=== PATIENT | female | born 1955 | race African-American/Black ===

== ENCOUNTER 2017-07-11 18:33 | Inpatient (IN) | payer MEDICARE ==
[2017-07-11] MEDS ORDERED: ASPIRIN 81 MG TABLET, CHEWABLE PO ONE (20:28)
--- NOTE | 2017-07-11 20:32 | ER Document Report ---
ED Medical Screen (RME) - General Chief Complaint: Arm Pain Stated Complaint: SHOULDER PAIN, NECK PAIN,NOT URINATING Time Seen by Provider: 07/11/17 20:28 Mode of Arrival: Wheelchair Information source: Patient Notes: 61-year-old female presents to ED for complaint of pain in left shoulder neck and down left arm with numbness to the left arm. She states she has been cramping all over. States she is feeling cold and also states she has not urinated since yesterday. States today she started with a sore throat. She has a past medical history of OR 3 with she states 7 stents, high blood pressure, diabetes, and she has an ileostomy. She states the ileostomy is because her colon ruptured but she does not know why her colon ruptured. I have greeted and performed a rapid initial assessment of this patient. A comprehensive ED assessment and evaluation of the patient, analysis of test results and completion of medical decision making process will be conducted by an additional ED providers. TRAVEL OUTSIDE OF THE [place] IN LAST 30 DAYS: No - Related Data Allergies/Adverse Reactions: ciprofloxacin [From Cipro] Allergy (Severe, Verified 07/11/17 18:47) Hallucinations morphine [Morphine] Allergy (Unknown, Verified 07/11/17 18:47) Past Medical History - Past Medical History Cardiac Medical History: Reports: Hx Atrial Fibrillation, Hx Coronary Artery Disease, Hx DVT, Hx Heart Attack - 2002, Hx Hypercholesterolemia, Hx Hypertension Pulmonary Medical History: Reports: Hx Pneumonia - 2006 Endocrine Medical History: Reports: Hx Diabetes Mellitus Type 2 Renal/ Medical History: Reports: Hx Ovarian Cysts. Denies: Hx Peritoneal Dialysis Malignancy Medical History: Reports: Hx Renal (Kidney) Cancer GI Medical History: Reports: Hx Gastroesophageal Reflux Disease, Hx Hiatal Hernia, Hx Irritable Bowel, Hx Ulcer Musculoskeltal Medical History: Reports Hx Arthritis - Back, Knees Psychiatric Medical History: Denies: Hx Depression Traumatic Medical History: Reports: Hx Fractures Past Surgical History: Reports: Hx Abdominal Surgery - COLOSTOMY. INTESTINAL RUPTURE, Hx Bowel Surgery - COLECTOMY, Hx Cardiac Catheterization - stents, Hx Cardiac Surgery - STENTS, Hx Colostomy, Hx Coronary Stent, Hx Hysterectomy, Hx Orthopedic Surgery - L knee replacement, right ankle pin - Immunizations Immunizations up to date: Yes Hx Diphtheria, Pertussis, Tetanus Vaccination: No Physical Exam - Vital signs Vitals: Temp Pulse Resp BP Pulse Ox 97.9 F 113 H 28 H 145/93 H 95 07/11/17 18:46 07/11/17 18:46 07/11/17 18:46 07/11/17 18:46 07/11/17 18:46 Course - Vital Signs Vital signs: Temp Pulse Resp BP Pulse Ox 97.9 F 113 H 28 H 145/93 H 95 07/11/17 18:46 07/11/17 18:46 07/11/17 18:46 07/11/17 18:46 07/11/17 18:46
--- NOTE | 2017-07-11 21:11 | RADIOLOGY REPORT (SQ) ---
EXAM DESCRIPTION: CHEST PA/LAT COMPLETED DATE/TIME: 07/11/2017 9:02 pm REASON FOR STUDY: left shoulder, neck and arm pain COMPARISON: CT angio chest 12/18/2014 Two-view chest 04/21/2015 EXAM PARAMETERS: NUMBER OF VIEWS: two views TECHNIQUE: Digital Frontal and Lateral radiographic views of the chest acquired. RADIATION DOSE: NA LIMITATIONS: none FINDINGS: LUNGS AND PLEURA: Minimal lingular atelectasis. Lungs are otherwise well inflated and clear. No pleural effusions. No pneumothorax. MEDIASTINUM AND HILAR STRUCTURES: No masses or contour abnormalities. HEART AND VASCULAR STRUCTURES: Heart normal size. No evidence for failure. BONES: Diffuse thoracic spondylotic change HARDWARE: None in the chest. OTHER: No other significant finding. IMPRESSION: Minimal lingular atelectasis TECHNICAL DOCUMENTATION: JOB ID: [id number] [employer]- All Rights Reserved
[2017-07-11] MEDS ORDERED: NORMAL SALINE 1000 ML 1,000 ML IV ONE (22:58)
--- NOTE | 2017-07-11 23:02 | ER Document Report ---
ED General <SELMA AGUIRREN - Last Filed: 07/12/17 07:11> - General Mode of Arrival: Wheelchair TRAVEL OUTSIDE OF THE [place] IN LAST 30 DAYS: No <RENA WEINER - Last Filed: 07/12/17 07:31> - General Chief Complaint: Arm Pain Stated Complaint: SHOULDER PAIN, NECK PAIN,NOT URINATING Time Seen by Provider: 07/11/17 20:28 Notes: Patient is a 61-year-old female presents with complaint that she feels very dehydrated. She said she had a cold over last week. Because that she has not been drinking as much as usual. She has not been urinating. She does have history of kidney failure in the past. She says she had dialysis once in the past. She does have history of NM. She denies any chest pain. She had a lot of cramping throughout her muscles. She says mostly cramping is been in her shoulders and neck area. She denies headache. She denies abdominal pain. She does have a ileostomy in place. She says ileostomy was placed several years ago. She says that her bowel ruptured but she does not know why ruptured. She says output from ileostomy has been normal. She has no other complaints at this time. Primary care doctor is Dr. Barakat. (RENA WEINER) - Related Data Allergies/Adverse Reactions: ciprofloxacin [From Cipro] Allergy (Severe, Verified 07/11/17 18:47) Hallucinations morphine [Morphine] Allergy (Unknown, Verified 07/11/17 18:47) Past Medical History - General Information source: Patient - Social History Smoking Status: Never Smoker Frequency of alcohol use: None Drug Abuse: None Family History: Hypertension Patient has suicidal ideation: No Patient has homicidal ideation: No - Past Medical History Cardiac Medical History: Reports: Hx Atrial Fibrillation, Hx Coronary Artery Disease, Hx DVT, Hx Heart Attack - 2002, Hx Hypercholesterolemia, Hx Hypertension Pulmonary Medical History: Reports: Hx Pneumonia - 2006 Endocrine Medical History: Reports: Hx Diabetes Mellitus Type 2 Renal/ Medical History: Reports: Hx Ovarian Cysts. Denies: Hx Peritoneal Dialysis Malignancy Medical History: Reports: Hx Renal (Kidney) Cancer GI Medical History: Reports: Hx Gastroesophageal Reflux Disease, Hx Hiatal Hernia, Hx Irritable Bowel, Hx Ulcer Musculoskeltal Medical History: Reports Hx Arthritis - Back, Knees Psychiatric Medical History: Denies: Hx Depression Traumatic Medical History: Reports: Hx Fractures Past Surgical History: Reports: Hx Abdominal Surgery - COLOSTOMY. INTESTINAL RUPTURE, Hx Bowel Surgery - COLECTOMY, Hx Cardiac Catheterization - stents, Hx Cardiac Surgery - STENTS, Hx Colostomy, Hx Coronary Stent, Hx Hysterectomy, Hx Orthopedic Surgery - L knee replacement, right ankle pin - Immunizations Immunizations up to date: Yes Hx Diphtheria, Pertussis, Tetanus Vaccination: No Hx Pneumococcal Vaccination: 09/19/13 <RENA WEINER - Last Filed: 07/12/17 07:31> Review of Systems <HENRY AGUIRRE - Last Filed: 07/12/17 07:11> <RENA WEINER - Last Filed: 07/12/17 07:31> - Review of Systems Notes: My Normal Review Basic REVIEW OF SYSTEMS: CONSTITUTIONAL : Denies fever, chills, or sweats. Denies recent illness. EENT: Denies eye, ear, throat, or mouth pain or symptoms. Denies nasal or sinus congestion. CARDIOVASCULAR: Denies chest pain. RESPIRATORY: Denies cough, cold, or chest congestion. Denies shortness of breath, difficulty breathing, or wheezing. GASTROINTESTINAL: Denies abdominal pain. Denies nausea, vomiting, or diarrhea. D GENITOURINARY: Denies difficulty urinating, painful urination, burning, frequency, or blood in urine. MUSCULOSKELETAL: muscle cramps. SKIN: Denies rash or skin lesions. NEUROLOGICAL: Denies altered mental status or loss of consciousness. Denies headache. Denies weakness or paralysis or loss of use of either side. Denies problems with gait or speech. Denies sensory or motor loss.. ALL OTHER SYSTEMS REVIEWED AND NEGATIVE. (RENA WEINER) Physical Exam <HENRY AGUIRRE - Last Filed: 07/12/17 07:11> <RENA WEINER - Last Filed: 07/12/17 07:31> - Vital signs Vitals: Temp Pulse Resp BP Pulse Ox 97.9 F 113 H 28 H 145/93 H 95 07/11/17 18:46 07/11/17 18:46 07/11/17 18:46 07/11/17 18:46 07/11/17 18:46 - Notes Notes: General Appearance: Well nourished, alert, cooperative, no acute distress, no obvious discomfort. Vitals: reviewed, See vital signs table. Head: no swelling or tenderness to the head Eyes: PERRL, EOMI, Conjuctiva clear Mouth: Dry mucous membranes. Throat: No tonsillar inflammation, No airway obstruction, No lymphadenopathy Neck: Supple, no neck tenderness, No thyromegaly Lungs: No wheezing, No rales, No rhonci, No accessory muscle use, good air exchange bilaterally. Heart: Tachycardic rate, Regular rythm, No murmur, no rub Abdomen: Normal BS, soft, No rigidity, No abdominal tenderness, No guarding, no rebound, ileostomy bag over anterior abdomen. Small amount of output in ileostomy bag. No blood seen in ileostomy bag. Extremities: strength 5/5 in all extremities, good pulses in all extremities, no swelling or tenderness in the extremities, no edema. Skin: warm, dry, appropriate color, no rash Neuro: speech clear, oriented x 3, normal affect, responds appropriately to questions. (RENA WEINER) Course - Laboratory Result Diagrams: 07/11/17 23:10 07/12/17 03:20 <HENRY AGUIRRE - Last Filed: 07/12/17 07:11> - Laboratory Result Diagrams: 07/11/17 23:10 07/12/17 03:20 <RENA WEINER - Last Filed: 07/12/17 07:31> - Re-evaluation Re-evalutation: 07/12/17 07:09 dr saleem paged 07/12/17 07:11 He will admit the patient to the ICU, patient is otherwise stable on dopamine at this time (HENRY AGUIRRE) 07/12/17 01:37 Patient's creatinine came back 11. Potassium 6.5. Patient's blood pressure started to go down some. I have ordered more IV fluids. I will start her on a bicarb drip. I will place a Walters catheter so we can measure strict output. I did do a bedside ultrasound to see if there is any evidence of bladder distention. Patient has just a small amount of urine in her bladder. I did review her previous records were she has had renal failure in the past. One time she did have some obstructive uropathy that was resolved with a Walters catheter. It does not appear that that is the case at this time. In the past I also suspect that she has had renal failure due to her high output ileostomy causing dehydration. I suspect that is likely culprit to why she has renal failure this time as well. I will continue to give her IV fluids. I will treat her with repeat her chemistry panel to make sure we are going in the right direction. Currently we do not have nephrology coverage until 7 AM. If her renal function is improving almost like call Dr. Barakat and see if he is agreeable to keeping her here with nephrology consult in the morning. I have ordered a repeat EKG. 07/12/17 07:29 Patient has acute renal failure with hyperkalemia and hypomagnesmia. repeat BMP shows some improvement with renal failure and hypokalemia. Patient to be admitted to ICU. 07/12/17 07:30 (RENA WEINER) - Vital Signs Vital signs: Temp Pulse Resp BP Pulse Ox 97.9 F 113 H 16 91/39 L 94 07/11/17 18:46 07/11/17 18:46 07/12/17 07:25 07/12/17 07:25 07/12/17 07:25 - Laboratory Laboratory results interpreted by me: 07/11/17 07/11/17 07/11/17 23:10 23:10 23:10 WBC 14.2 H Hgb 11.7 L Hct 35.3 L RDW 18.0 H Seg Neutrophils % 85.2 H Lymphocytes % 9.0 L Absolute Neutrophils 12.1 H Sodium 126.9 L Potassium 6.5 H* Chloride 91 L Carbon Dioxide 11 L Anion Gap 25 H BUN 120 H Creatinine 11.40 H Est GFR ( Amer) 4 L Est GFR (Non-Af Amer) 3 L Glucose 157 H Calcium Magnesium 1.4 L Direct Bilirubin 0.7 H AST 128 H ALT 78 H Creatine Kinase 5897 H CK-MB (CK-2) 43.20 H Urine Blood Ur Leukocyte Esterase 07/12/17 07/12/17 02:30 03:20 WBC Hgb Hct RDW Seg Neutrophils % Lymphocytes % Absolute Neutrophils Sodium 126.0 L Potassium Chloride 94 L Carbon Dioxide 15 L Anion Gap BUN 115 H Creatinine 9.92 H Est GFR ( Amer) 5 L Est GFR (Non-Af Amer) 4 L Glucose 169 H Calcium 7.3 L Magnesium Direct Bilirubin AST ALT Creatine Kinase CK-MB (CK-2) Urine Blood MODERATE H Ur Leukocyte Esterase MODERATE H - EKG Interpretation by Me Additional EKG results interpreted by me: 07/11/17 23:59 EKG is reviewed and interpreted by me. EKG shows sinus tachycardia with a rate of [address] segment elevation or depression. No ischemic T-wave inversions. IA interval slightly prolonged. QRS duration QTc intervals are within normal range. Old EKG for comparison is from April 21, 2015. 07/12/17 03:07 KG #2 is reviewed and interpreted by me. EKG shows sinus tachycardia. No ST segment elevation or depression. IA interval, QRS duration, QTc intervals are within normal range. No peaked T waves. (RENA WEINER) Procedures <HENRY AGUIRRE - Last Filed: 07/12/17 07:11> - Central Line Right Femoral Consent obtained: Yes Central line pre-insertion: Sterile PPE donned, Chloraprep applied, Sterile drapes applied Central line lumen type: Triple Anesthetic type: 1% Lidocaine mL's of anesthesia: 4 Ultrasound guided: Yes Line secured with sutures: Yes Central line post-insertion: Blood return from lumens, Biopatch applied, Sutured , Sterile dressing applied Number of attempts: 2 Complications: No <RENA WEINER - Last Filed: 07/12/17 07:31> - Central Line Right Femoral Notes: 07/12/17 05:47 First attempted line placement and right internal jugular. I was able to obtain a flash but the wire would not thread. I then aborted. Patient had no active bleeding or swelling to the neck. Second attempt was in the right femoral vein which was successful. (RENA WEINER) Critical Care Note <HENRY AGUIRRE - Last Filed: 07/12/17 07:11> - Critical Care Note Total time excluding time spent on procedures (mins): 115 <RENA WEINER - Last Filed: 07/12/17 07:31> - Critical Care Note Comments: Critical care time for this patient not including time spent on procedures approximately 115 minutes due to frequent re-evaluations, management of acute renal failure, monitoring of hypotension, management of pressor therapy. ( RENA WEINER) Discharge - Discharge Admitting Provider: [facility] Unit Admitted: ICU <HENRY AGUIRRE - Last Filed: 07/12/17 07:11> - Discharge Admitting Provider: Yu[facility] Unit Admitted: ICU <RENA WEINER - Last Filed: 07/12/17 07:31> - Discharge Clinical Impression: Dehydration, Hyperkalemia, Hypomagnesemia Acute renal failure Qualifiers: Acute renal failure type: unspecified Qualified Code(s): N17.9 - Acute kidney failure, unspecified Hypotension Qualifiers: Hypotension type: unspecified hypotension type Qualified Code(s): I95.9 - Hypotension, unspecified Condition: Critical Disposition: ADMITTED INPATIENT
[2017-07-11 23:37] LABS: ABSOLUTE EOSINOPHILS # (AUTO) 0.1 10^3/uL (0.0-0.6); ABSOLUTE LYMPHOCYTES (AUTO) 1.3 10^3/uL (0.5-4.7); ABSOLUTE MONOCYTES (AUTO) 0.7 10^3/uL (0.1-1.4); ABSOLUTE NEUT (AUTO) 12.1 10^3/uL (1.7-8.2); BASOPHILS % (AUTO) 0.3 % (0-2); EOSINOPHILS % (AUTO) 0.6 % (0-6); HEMATOCRIT 35.3 % (36.0-47.0); HEMOGLOBIN 11.7 g/dL (12.0-15.5); HGB HCT DIFFERENCE -0.2; MEAN CORPUSCULAR HEMOGLOBIN 29.1 pg (27.0-33.4); MEAN CORPUSCULAR VOLUME 88 fl (80-97); MONOCYTES % (AUTO) 4.9 % (3-13); RED BLOOD COUNT 4.01 10^6/uL (3.72-5.28); SEGMENTED NEUTROPHILS % (AUTO) 85.2 % (42-78); WHITE BLOOD COUNT 14.2 10^3/uL (4.0-10.5)
[2017-07-11 23:44] LABS: ALANINE AMINOTRANSFERASE 78 U/L (9-52); ALBUMIN 4.4 g/dL (3.5-5.0); ALKALINE PHOSPHATASE 89 U/L (38-126); ASPARTATE AMINO TRANSFERASE 128 U/L (14-36); BILIRUBIN,DIRECT 0.7 mg/dL (0.0-0.4); BILIRUBIN,TOTAL 0.7 mg/dL (0.2-1.3); CALCIUM 8.8 mg/dL (8.4-10.2); GLUCOSE 157 mg/dL (75-110); MAGNESIUM 1.4 mg/dL (1.6-2.3); TOTAL PROTEIN 8.1 g/dL (6.3-8.2)
[2017-07-11 23:50] LABS: BLOOD UREA NITROGEN 120 mg/dL (7-20)
[2017-07-11 23:56] LABS: CREATINE KINASE MB 43.2 ng/mL (<4.55)
--- NOTE | 2017-07-11 23:58 | EKG REPORT ---
SEVERITY:- ABNORMAL ECG - SINUS TACHYCARDIA INFERIOR INFARCT, AGE INDETERMINATE CONSIDER ANTERIOR INFARCT AGE INDETERMINATE : Confirmed by: Jaqui Marquis 11-Jul-2017 23:58:19
[2017-07-12 00:03] LABS: TROPONIN I 0.055 ng/mL
[2017-07-12] MEDS ORDERED: FENTANYL CITRATE INJ/PF 100 MCG/2 ML AMPUL IV ONE ×2 (00:32→05:14)
[2017-07-12 00:33] LABS: CREATINE KINASE 5897 U/L (30-135)
[2017-07-12 00:46] LABS: CARBON DIOXIDE 11 mmol/L (22-30); CHLORIDE 91 mmol/L (98-107); SODIUM 126.9 mmol/L (137-145)
[2017-07-12 00:47] LABS: ANION GAP 25 (5-19)
[2017-07-12 00:50] LABS: POTASSIUM 6.5 mmol/L (3.6-5.0)
[2017-07-12] MEDS ORDERED: NORMAL SALINE 1000 ML 1,000 ML IV ONE ×3 (01:18→05:32)
[2017-07-12] MEDS ORDERED: SODIUM BICARBONATE 8.4% INJ 50 MEQ/50 ML DISP.SYRIN IV ONE (01:33)
[2017-07-12] MEDS ORDERED: INSULIN REG, HUMAN 100 UNIT/ML 3 ML VIAL (PYX) IV ONE (01:35)
[2017-07-12] MEDS ORDERED: DEXTROSE 50%-WATER 25 GM/50 ML DISP.SYRIN IV ONE (01:35)
[2017-07-12] MEDS: DEXTROSE 5%-WATER 1000 ML 1,000 ML with SODIUM BICARBONATE 150 MEQ IV PRN ×6 (02:06→11:20)
[2017-07-12 02:52] LABS: AMORPHOUS SEDIMENT,URINE TRACE /HPF; APPEARANCE,URINE CLOUDY; BILIRUBIN,URINE NEGATIVE (NEGATIVE); GLUCOSE, URINE NEGATIVE (NEGATIVE); KETONES,URINE NEGATIVE (NEGATIVE); LEUKOCYTE ESTERASE,URINE MODERATE (NEGATIVE); NITRITE,URINE NEGATIVE (NEGATIVE); PROTEIN,URINE NEGATIVE (NEGATIVE); URINE SPECIFIC GRAVITY 1.013; UROBILINOGEN,URINE NEGATIVE mg/dL (<2.0)
[2017-07-12] MEDS: MAGNESIUM SULFATE/D5W 1 GM/100 ML RTUPB IV SCH ×2 (04:00→04:24)
[2017-07-12 04:01] LABS: ANION GAP 17 (5-19); BLOOD UREA NITROGEN 115 mg/dL (7-20); CALCIUM 7.3 mg/dL (8.4-10.2); CARBON DIOXIDE 15 mmol/L (22-30); CHLORIDE 94 mmol/L (98-107); CREATININE RESULT 9.92 mg/dL (0.52-1.25); GLUCOSE 169 mg/dL (75-110)
[2017-07-12 04:14] LABS: POTASSIUM 4.8 mmol/L (3.6-5.0)
[2017-07-12] MEDS ORDERED: DOPAMINE HCL/DEXTROSE 5%-WATER 800 MG/250 ML RTUINJ IV PRN (04:21)
--- NOTE | 2017-07-12 07:26 | EKG REPORT ---
SEVERITY:- ABNORMAL ECG - SINUS TACHYCARDIA INFERIOR INFARCT, AGE INDETERMINATE : Confirmed by: Brody Guajardo MD 12-Jul-2017 07:25:21
[2017-07-12] MEDS ORDERED: GLUCAGON,HUMAN RECOMB 1 MG INJ IM PRN ×2 (07:32→07:33)
[2017-07-12] MEDS ORDERED: DEXTROSE 50%-WATER 25 GM/50 ML DISP.SYRIN IV PRN ×4 (07:32→07:33)
[2017-07-12] MEDS ORDERED: DEXTROSE 40% GEL 15 GM TUBE PO PRN ×4 (07:32→07:33)
[2017-07-12] MEDS ORDERED: PIPERACILLIN SODIUM/TAZOBACTAM 3.375 GM in NORMAL SALINE 100 ML IV SCH (09:00)
[2017-07-12] MEDS ORDERED: NOREPINEPHRINE BITARTRATE INJ/PF 4 MG/4 ML SDV IV ONE (09:10)
[2017-07-12] MEDS: DEXTROSE 5%-WATER 250 ML with NOREPINEPHRINE BITARTRATE 4 MG IV PRN ×4 (09:43→17:47)
[2017-07-12] MEDS: PIPERACILLIN SODIUM/TAZOBACTAM 2.25 GM in NORMAL SALINE 50 ML IV SCH ×2 (09:51→17:14)
[2017-07-12 09:52] LABS: PROTHROMBIN TIME 16.1 SEC (11.4-15.4)
[2017-07-12 09:59] LABS: LIPASE 481.2 U/L (23-300); MAGNESIUM 1.7 mg/dL (1.6-2.3); PHOSPHORUS 6.5 mg/dL (2.5-4.5)
[2017-07-12 10:02] LABS: ANION GAP 18 (5-19); BLOOD UREA NITROGEN 101 mg/dL (7-20); CALCIUM 7.3 mg/dL (8.4-10.2); CARBON DIOXIDE 14 mmol/L (22-30); CHLORIDE 96 mmol/L (98-107); GLUCOSE 248 mg/dL (75-110); POTASSIUM 4.3 mmol/L (3.6-5.0); SODIUM 127.9 mmol/L (137-145)
[2017-07-12 10:18] LABS: CREATINE KINASE MB 26.9 ng/mL (<4.55); TROPONIN I 0.09 ng/mL
[2017-07-12] MEDS ORDERED: INFLUENZA ADLT QUAD (36MOS+) 2017-18 VAC 0.5 ML SYR IM PRN ×2 (10:20→13:30)
[2017-07-12 10:31] LABS: CREATINE KINASE 4180 U/L (30-135)
[2017-07-12 10:34] LABS: THYROID STIMULATING HORMONE 0.28 uIU/mL (0.47-4.68)
[2017-07-12 11:36] LABS: ARTERIAL BLOOD BASE EXCESS -9.3 mmol/L; ARTERIAL BLOOD O2 SATURATION 90.3 % (94-98)
[2017-07-12] MEDS: INSULIN REG, HUMAN 100 UNIT/ML 3 ML VIAL (PYX) SUBCUT PRN ×3 (11:36→21:30)
[2017-07-12 11:38] LABS: APPEARANCE,URINE SLIGHTLY-CLOUDY; BILIRUBIN,URINE NEGATIVE (NEGATIVE); GLUCOSE, URINE 50 mg/dL (NEGATIVE); KETONES,URINE NEGATIVE (NEGATIVE); LEUKOCYTE ESTERASE,URINE NEGATIVE (NEGATIVE); NITRITE,URINE NEGATIVE (NEGATIVE); PROTEIN,URINE NEGATIVE (NEGATIVE); URINE SPECIFIC GRAVITY 1.005; UROBILINOGEN,URINE NEGATIVE mg/dL (<2.0)
[2017-07-12] MEDS ORDERED: HYDROMORPHONE HCL INJ/PF 2 MG/ML AMPULE IV PRN (12:38)
--- NOTE | 2017-07-12 13:51 | RADIOLOGY REPORT (SQ) ---
EXAM DESCRIPTION: VENOUS UNILATERAL LOWER COMPLETED DATE/TIME: 07/12/2017 1:42 pm REASON FOR STUDY: Right lower extremety edema and pain COMPARISON: None. TECHNIQUE: Dynamic and static correia scale and color images acquired of the right leg venous system. S elected spectral images acquired with additional compression and augmentation maneuvers. The contrala teral common femoral vein and saphenofemoral junction were also imaged. Images stored on PACS. LIMITATIONS: None. FINDINGS: RIGHT COMMON FEMORAL: Normal phasicity, compression and augmentation. No visualized echogenic material on g ray scale. No defects on color images. FEMORAL: Normal compression and augmentation. No visualized echogenic material on correia scale. No defe cts on color images. POPLITEAL: Normal compression, augmentation. No visualized echogenic material on correia scale. No defec ts on color images. CALF VESSELS: Normal compression, augmentation. No visualized echogenic material on correia scale. No de fects on color images. GSV and SSV: Normal compression, augmentation. No visualized echogenic material on correia scale. No def ects on color images. ANY DEEP VENOUS INSUFFICIENCY: Not evaluated. ANY EVIDENCE OF POPLITEAL CYST: No. OTHER: No other significant finding. LEFT COMMON FEMORAL VEIN AND SAPHENOFEMORAL JUNCTION: Normal phasicity, compression and augmentation. No visualized echogenic material on correia scale. No de fects on color images. IMPRESSION: NO EVIDENCE OF DVT OR SVT IN THE RIGHT LEG. TECHNICAL DOCUMENTATION: JOB ID: [id number] [employer]- All Rights Reserved
[2017-07-12] MEDS: NORMAL SALINE 1000 ML 1,000 ML IV PRN ×2 (13:53→18:37)
[2017-07-12] MEDS: HYDROMORPHONE HCL INJ/PF 2 MG/ML AMPULE IV PRN ×2 (13:59→20:01)
[2017-07-12] MEDS: HEPARIN SOD (PORCINE) 5,000 UNIT/ML 1 ML SYRINGE SUBCUT SCH ×2 (14:00→21:30)
--- NOTE | 2017-07-12 14:11 | EKG REPORT ---
SEVERITY:- ABNORMAL ECG - SINUS TACHYCARDIA INFERIOR INFARCT, OLD : Confirmed by: Brody Guajardo MD 12-Jul-2017 14:10:51
[2017-07-12 15:36] LABS: ANION GAP 16 (5-19); BLOOD UREA NITROGEN 99 mg/dL (7-20); CALCIUM 7.5 mg/dL (8.4-10.2); CARBON DIOXIDE 17 mmol/L (22-30); CHLORIDE 97 mmol/L (98-107); CREATININE RESULT 7.43 mg/dL (0.52-1.25); GLUCOSE 223 mg/dL (75-110); POTASSIUM 4.6 mmol/L (3.6-5.0); SODIUM 130.2 mmol/L (137-145)
[2017-07-12 15:43] LABS: CREATINE KINASE 2821 U/L (30-135)
--- NOTE | 2017-07-12 18:14 | PDOC H&P ---
History of Present Illness Admission Date/PCP: 07/12/17 07:25 LISA MATA MD History of Present Illness: RANDEE VELÁSQUEZ is a 61 year old female she is well-known to me she has a history of high output ileostomy bag, she came to the emergency room for evaluation of malaise, anorexia, decreased urinary output. She said she has not been feeling well in the last week, she had a cord showed been drinking as much as well, she complained of leg cramps, shoulder cramps in the emergency room she was evaluated the initial blood work that was done showed sodium 126, BUN 115, creatinine 9.92. Arterial blood gas, FiO2 2 L pH 7.2, PO2 53.8 bicarbonate 16.3 CO2 34, this is consistent with increased anion gap metabolic acidosis with well compensated respiratory. Blood pressure recorded was also low. Patient has had this problems before. The urinalysis was grossly abnormal suggesting UTI. Past Medical History Cardiac Medical History: Reports: Atrial Fibrillation, Coronary Artery Disease, DVT, Myocardial Infarction - 2002, Hyperlipidema, Hypertension Pulmonary Medical History: Reports: Pneumonia - 2006 Endocrine Medical History: Reports: Diabetes Mellitus Type 2 Malignancy Medical History: Reports: Renal (Kidney) Cancer GI Medical History: Reports: Gastroesophageal Reflux Disease, Hiatal Hernia Musculoskeltal Medical History: Reports: Arthritis - Back, Knees Hematology: Reports: Anemia Past Surgical History Past Surgical History: Reports: Cardiac Catheterization - stents, Colostomy, Coronary Stent, Hysterectomy, Orthopedic Surgery - L knee replacement, right ankle pin Social History Smoking Status: Never Smoker Frequency of Alcohol Use: Social Hx Recreational Drug Use: No Drugs: None Hx Prescription Drug Abuse: No - Advance Directive Resuscitation Status: Full Code Family History Family History: Hypertension Parental Family History Reviewed: Yes Children Family History Reviewed: Yes Sibling(s) Family History Reviewed.: Yes Medication/Allergy Home Medications: Albuterol Sulfate [Proair HFA] 2 puff IH Q4HP PRN 07/12/17 Betamet Diprop/Prop Gly [Betamethasone Dp Aug 0.05% Cream] 1 applic TOP BID 02/20 Clotrimazole [Athlete's Foot] 1 applic TOP BID 07/12/17 Cyclobenzaprine HCl [Flexeril 10 mg Tablet] 10 mg PO TIDP PRN 07/12/17 Exenatide Microspheres [Bydureon Pen] 2 mg SUBCUT KYLE@1000 07/12/17 Gabapentin [Neurontin] 600 mg PO Q6 07/12/17 Glipizide [Glipizide Xl] 5 mg PO DAILY 07/12/17 Insulin Aspart [Novolog Flexpen] 12 unit SUBCUT TID 07/12/17 Insulin Glargine,Hum.rec.anlog [Lantus Solostar] 60 units SUBCUT BID 07/12/17 Linagliptin [Tradjenta] 5 mg PO DAILY 07/12/17 Metoprolol Succinate [Toprol Xl 50 mg Tab.sr] 50 mg PO DAILY 07/12/17 Nystatin 1 applic TOP BID 07/12/17 Oxycodone HCl [Oxycodone HCl 10 MG Tablet] 10 mg PO BIDP PRN 07/12/17 Oxymorphone HCl [Opana ER] 10 mg PO Q8 07/12/17 Pioglitazone HCl [Actos] 30 mg PO DAILY 07/12/17 Ramipril [Altace 10 mg Capsule] 10 mg PO DAILY 07/12/17 Sodium Bicarbonate [Sodium Bicarbonate 650 mg Tablet] 1,300 mg PO TID 07/12/17 Allergies/Adverse Reactions: ciprofloxacin [From Cipro] Allergy (Severe, Verified 07/11/17 18:47) Hallucinations morphine [Morphine] Allergy (Unknown, Verified 07/11/17 18:47) Review of Systems Constitutional: PRESENT: anorexia, chills, fatigue Eyes: ABSENT: visual disturbances Ears: ABSENT: hearing changes Cardiovascular: PRESENT: chest pain Respiratory: PRESENT: cough Gastrointestinal: PRESENT: abdominal pain, bloating, nausea Genitourinary: ABSENT: dysuria, hematuria Musculoskeletal: ABSENT: joint swelling Integumentary: ABSENT: rash, wounds Neurological: ABSENT: abnormal gait, abnormal speech, confusion, dizziness, focal weakness, syncope Psychiatric: ABSENT: anxiety, depression, homidical ideation, suicidal ideation Endocrine: ABSENT: cold intolerance, heat intolerance, menstrual abnormalities, polydipsia, polyuria Hematologic/Lymphatic: ABSENT: easy bleeding, easy bruising, lymphadenopathy Physical Exam Vital Signs: Temp Pulse Resp BP Pulse Ox 98.1 F 116 H 17 99/37 L 100 07/12/17 12:01 07/12/17 16:00 07/12/17 16:00 07/12/17 16:00 07/12/17 16:00 Intake & Output 07/11/17 07/12/17 07/13/17 06:59 06:59 06:59 Output Total 620 Balance -620 Weight 125 kg Head exam: PRESENT: atraumatic, normocephalic Eye exam: PRESENT: conjunctiva pink, EOMI, PERRLA Mouth exam: PRESENT: dry mucosa Neck exam: PRESENT: full ROM Respiratory exam: PRESENT: clear to auscultation stephen Cardiovascular exam: PRESENT: RRR, +S1, +S2 Vascular exam: PRESENT: normal capillary refill GI/Abdominal exam: PRESENT: normal bowel sounds, soft, other - Ileostomy bag Rectal exam: PRESENT: deferred Neurological exam: PRESENT: alert Skin exam: PRESENT: dry Results Laboratory Results: 07/12/17 14:15 07/12/17 07/12/17 07/12/17 09:18 09:18 09:18 Carbonic Acid HCO3/H2CO3 Ratio ABG pH ABG pCO2 ABG pO2 ABG HCO3 ABG O2 Saturation ABG Base Excess FiO2 Sodium Potassium Chloride Carbon Dioxide Anion Gap BUN Creatinine Est GFR ( Amer) Est GFR (Non-Af Amer) Glucose Calcium Phosphorus 6.5 H Magnesium 1.7 Ammonia < 8.7 L Amylase 254 H Lipase 481.2 H TSH 0.28 L Free T4 1.98 Urine Color Urine Appearance Urine pH Ur Specific [place] Urine Protein Urine Glucose (UA) Urine Ketones Urine Blood Urine Nitrite Ur Leukocyte Esterase Urine WBC (Auto) Urine RBC (Auto) 07/12/17 07/12/17 07/12/17 09:18 09:30 10:40 Carbonic Acid 1.04 L HCO3/H2CO3 Ratio 15:1 ABG pH 7.29 L ABG pCO2 34.6 L ABG pO2 63.8 L ABG HCO3 16.3 L ABG O2 Saturation 90.3 L ABG Base Excess -9.3 FiO2 2L Sodium 127.9 L Potassium 4.3 Chloride 96 L Carbon Dioxide 14 L Anion Gap 18 BUN 101 H Creatinine 8.50 H Est GFR ( Amer) 6 L Est GFR (Non-Af Amer) 5 L Glucose 248 H Calcium 7.3 L Phosphorus Magnesium Ammonia Amylase Lipase TSH Free T4 Urine Color STRAW Urine Appearance SLIGHTLY-CLOUDY Urine pH 5.0 Ur Specific [place] 1.005 Urine Protein NEGATIVE Urine Glucose (UA) 50 H Urine Ketones NEGATIVE Urine Blood LARGE H Urine Nitrite NEGATIVE Ur Leukocyte Esterase NEGATIVE Urine WBC (Auto) 6 Urine RBC (Auto) 5 07/12/17 14:15 Carbonic Acid HCO3/H2CO3 Ratio ABG pH ABG pCO2 ABG pO2 ABG HCO3 ABG O2 Saturation ABG Base Excess FiO2 Sodium 130.2 L Potassium 4.6 Chloride 97 L Carbon Dioxide 17 L Anion Gap 16 BUN 99 H Creatinine 7.43 H Est GFR ( Amer) 7 L Est GFR (Non-Af Amer) 6 L Glucose 223 H Calcium 7.5 L Phosphorus Magnesium Ammonia Amylase Lipase TSH Free T4 Urine Color Urine Appearance Urine pH Ur Specific [place] Urine Protein Urine Glucose (UA) Urine Ketones Urine Blood Urine Nitrite Ur Leukocyte Esterase Urine WBC (Auto) Urine RBC (Auto) 07/12/17 07/12/17 07/12/17 09:18 09:18 09:18 Creatine Kinase 4180 H CK-MB (CK-2) 26.90 H Troponin I 0.090 NT-Pro-B Natriuret Pep 280 07/12/17 14:15 Creatine Kinase 2821 H CK-MB (CK-2) Troponin I NT-Pro-B Natriuret Pep Impressions: Chest X-Ray 07/11/17 20:29 IMPRESSION: Minimal lingular atelectasis Venous Doppler Study 07/12/17 12:28 IMPRESSION: NO EVIDENCE OF DVT OR SVT IN THE RIGHT LEG. Assessment & Plan - Diagnosis (1) Acute kidney injury Is this a current diagnosis for this admission?: Yes Plan: She has acute kidney injury most likely due to volume loss, most likely it is prerenal, she will vigorously be hydrated with IV fluid, normal saline at 2 50 cc/h for 24 hours then maintenance at 100cc/.hr there is no indication for hemodialysis at this time (2) Metabolic acidosis, increased anion gap Is this a current diagnosis for this admission?: Yes Plan: She has increased metabolic acidosis most likely due to combination of low blood pressure dehydration, infection, lactic acidosis, it is a well compensated acute metabolic acidosis the expected PCO2 is 30-34. (3) Hypotension Qualifiers: Hypotension type: unspecified hypotension type Qualified Code(s): I95.9 - Hypotension, unspecified Is this a current diagnosis for this admission?: Yes Plan: Patient was started on dopamine in the emergency room but this be discontinued because she needs more volume but she will be also be treated with Levophed (4) Urinary tract infection Qualifiers: Urinary tract infection type: site unspecified Hematuria presence: without hematuria Qualified Code(s): N39.0 - Urinary tract infection, site not specified Is this a current diagnosis for this admission?: Yes
[2017-07-12 18:46] LABS: CREATINE KINASE MB 20.9 ng/mL (<4.55)
[2017-07-12 18:49] LABS: TROPONIN I 0.218 ng/mL
[2017-07-12 22:44] LABS: ANION GAP 14 (5-19); BLOOD UREA NITROGEN 91 mg/dL (7-20); CALCIUM 7.4 mg/dL (8.4-10.2); CARBON DIOXIDE 18 mmol/L (22-30); CHLORIDE 101 mmol/L (98-107); CREATININE RESULT 6.11 mg/dL (0.52-1.25); GLUCOSE 226 mg/dL (75-110); POTASSIUM 4.4 mmol/L (3.6-5.0); SODIUM 132.7 mmol/L (137-145)
[2017-07-12 22:54] LABS: CREATINE KINASE 2291 U/L (30-135); CREATINE KINASE MB 11.3 ng/mL (<4.55); TROPONIN I 0.244 ng/mL
[2017-07-13] MEDS: DEXTROSE 5%-WATER 250 ML with NOREPINEPHRINE BITARTRATE 4 MG IV PRN ×4 (00:05→06:08)
[2017-07-13] MEDS: NORMAL SALINE 1000 ML 1,000 ML IV PRN ×6 (00:07→23:33)
[2017-07-13] MEDS: HYDROMORPHONE HCL INJ/PF 2 MG/ML AMPULE IV PRN ×5 (00:18→22:10)
[2017-07-13] MEDS: PIPERACILLIN SODIUM/TAZOBACTAM 2.25 GM in NORMAL SALINE 50 ML IV SCH ×3 (02:53→19:41)
[2017-07-13 03:13] LABS: ANION GAP 15 (5-19); BLOOD UREA NITROGEN 80 mg/dL (7-20); CALCIUM 7.2 mg/dL (8.4-10.2); CARBON DIOXIDE 17 mmol/L (22-30); CHLORIDE 104 mmol/L (98-107); CREATININE RESULT 5.44 mg/dL (0.52-1.25); GLUCOSE 248 mg/dL (75-110); POTASSIUM 4.3 mmol/L (3.6-5.0); SODIUM 136.4 mmol/L (137-145)
[2017-07-13] MEDS: HEPARIN SOD (PORCINE) 5,000 UNIT/ML 1 ML SYRINGE SUBCUT SCH ×3 (06:09→21:44)
[2017-07-13 06:30] LABS: ABSOLUTE LYMPHOCYTES (AUTO) 0.8 10^3/uL (0.5-4.7); ABSOLUTE MONOCYTES (AUTO) 0.8 10^3/uL (0.1-1.4); ABSOLUTE NEUT (AUTO) 5.2 10^3/uL (1.7-8.2); BASOPHILS % (AUTO) 0.1 % (0-2); EOSINOPHILS % (AUTO) 0.6 % (0-6); HEMATOCRIT 28.7 % (36.0-47.0); HEMOGLOBIN 9.7 g/dL (12.0-15.5); HGB HCT DIFFERENCE 0.4; LYMPHOCYTES % (AUTO) 11.8 % (13-45); MEAN CORPUSCULAR HGB CONC 33.8 g/dL (32.0-36.0); MEAN CORPUSCULAR VOLUME 86 fl (80-97); MONOCYTES % (AUTO) 11.9 % (3-13); RED BLOOD COUNT 3.34 10^6/uL (3.72-5.28); RED CELL DISTRIBUTION WIDTH 16.7 % (11.5-14.0); SEGMENTED NEUTROPHILS % (AUTO) 75.6 % (42-78); WHITE BLOOD COUNT 6.9 10^3/uL (4.0-10.5)
[2017-07-13 06:45] LABS: ALANINE AMINOTRANSFERASE 54 U/L (9-52); ALBUMIN 2.8 g/dL (3.5-5.0); ALKALINE PHOSPHATASE 72 U/L (38-126); ANION GAP 18 (5-19); ASPARTATE AMINO TRANSFERASE 65 U/L (14-36); BILIRUBIN,DIRECT 0.5 mg/dL (0.0-0.4); BILIRUBIN,TOTAL 0.7 mg/dL (0.2-1.3); BLOOD UREA NITROGEN 77 mg/dL (7-20); CALCIUM 7.3 mg/dL (8.4-10.2); CARBON DIOXIDE 14 mmol/L (22-30); CHLORIDE 106 mmol/L (98-107); CHOLESTEROL 134.27 mg/dL (0-200); CREATININE RESULT 4.97 mg/dL (0.52-1.25); Direct HDL 40 mg/dL (>40); GLUCOSE 239 mg/dL (75-110); POTASSIUM 4.2 mmol/L (3.6-5.0); SODIUM 137.6 mmol/L (137-145); TOTAL PROTEIN 5.5 g/dL (6.3-8.2); TRIGLYCERIDES 107 mg/dL (<150)
[2017-07-13 06:56] LABS: DIRECT LDL 57 mg/dL (<100)
[2017-07-13] MEDS: INSULIN REG, HUMAN 100 UNIT/ML 3 ML VIAL (PYX) SUBCUT PRN (08:25)
[2017-07-13 13:35] LABS: ANION GAP 13 (5-19); BLOOD UREA NITROGEN 71 mg/dL (7-20); CALCIUM 7.7 mg/dL (8.4-10.2); CARBON DIOXIDE 19 mmol/L (22-30); CHLORIDE 108 mmol/L (98-107); CREATININE RESULT 4.44 mg/dL (0.52-1.25); GLUCOSE 204 mg/dL (75-110); POTASSIUM 4.2 mmol/L (3.6-5.0); SODIUM 139.5 mmol/L (137-145)
[2017-07-13] MEDS ORDERED: ALBUTEROL SULFATE HFA (90 MCG/PUFF) 8 GM MDI (1 MDI/ER DISP) IH PRN (18:10)
--- NOTE | 2017-07-13 18:10 | PDOC PROGRESS REPORT ---
Subjective Progress Note for:: 07/13/17 Subjective:: She was seen by the bedside, she was admitted yesterday when she presented with acute kidney injury, hypotension, severe metabolic acidosis, severe electrolyte derangement presently on IV fluid responded very well to treatment kidney function improving Physical Exam Vital Signs: Temp Pulse Resp BP Pulse Ox 98.8 F 109 H 20 101/64 100 07/13/17 16:00 07/13/17 16:00 07/13/17 16:00 07/13/17 16:00 07/13/17 16:00 Intake & Output 07/12/17 07/13/17 07/14/17 06:59 06:59 06:59 Intake Total 5250 Output Total 5100 1910 Balance 150 -1910 Weight 127.4 kg General appearance: PRESENT: no acute distress, well-developed, well-nourished Head exam: PRESENT: atraumatic, normocephalic Eye exam: PRESENT: conjunctiva pink, EOMI, PERRLA Ear exam: PRESENT: normal external ear exam Mouth exam: PRESENT: moist, tongue midline Neck exam: PRESENT: full ROM Respiratory exam: PRESENT: clear to auscultation stephen Cardiovascular exam: PRESENT: RRR, +S1, +S2 Vascular exam: PRESENT: normal capillary refill GI/Abdominal exam: PRESENT: normal bowel sounds, soft Rectal exam: PRESENT: deferred Neurological exam: PRESENT: alert, awake, oriented to person, oriented to place , oriented to time, oriented to situation, CN II-XII grossly intact. ABSENT: motor sensory deficit Psychiatric exam: PRESENT: appropriate affect, normal mood Skin exam: PRESENT: dry, intact, warm Results Laboratory Results: 07/13/17 05:45 07/13/17 12:20 07/12/17 07/13/17 07/13/17 22:15 02:40 05:45 WBC RBC Hgb Hct MCV MCH MCHC RDW Plt Count Seg Neutrophils % Lymphocytes % Monocytes % Eosinophils % Basophils % Absolute Neutrophils Absolute Lymphocytes Absolute Monocytes Absolute Eosinophils Absolute Basophils Sodium 132.7 L 136.4 L 137.6 Potassium 4.4 4.3 4.2 Chloride 101 104 106 Carbon Dioxide 18 L 17 L 14 L Anion Gap 14 15 18 BUN 91 H 80 H 77 H Creatinine 6.11 H 5.44 H 4.97 H Est GFR ( Amer) 8 L 10 L 11 L Est GFR (Non-Af Amer) 7 L 8 L 9 L Glucose 226 H 248 H 239 H Calcium 7.4 L 7.2 L 7.3 L Total Bilirubin 0.7 AST 65 H ALT 54 H Alkaline Phosphatase 72 Total Protein 5.5 L Albumin 2.8 L Triglycerides 107 Cholesterol 134.27 LDL Cholesterol Direct 57 VLDL Cholesterol 21.0 HDL Cholesterol 40 07/13/17 07/13/17 05:45 12:20 WBC 6.9 RBC 3.34 L Hgb 9.7 L Hct 28.7 L MCV 86 MCH 29.0 MCHC 33.8 RDW 16.7 H Plt Count 128 L Seg Neutrophils % 75.6 Lymphocytes % 11.8 L Monocytes % 11.9 Eosinophils % 0.6 Basophils % 0.1 Absolute Neutrophils 5.2 Absolute Lymphocytes 0.8 Absolute Monocytes 0.8 Absolute Eosinophils 0.0 Absolute Basophils 0.0 Sodium 139.5 Potassium 4.2 Chloride 108 H Carbon Dioxide 19 L Anion Gap 13 BUN 71 H Creatinine 4.44 H Est GFR ( Amer) 12 L Est GFR (Non-Af Amer) 10 L Glucose 204 H Calcium 7.7 L Total Bilirubin AST ALT Alkaline Phosphatase Total Protein Albumin Triglycerides Cholesterol LDL Cholesterol Direct VLDL Cholesterol HDL Cholesterol 07/12/17 07/12/17 07/12/17 09:18 09:18 09:18 Creatine Kinase 4180 H CK-MB (CK-2) 26.90 H Troponin I 0.090 NT-Pro-B Natriuret Pep 280 07/12/17 07/12/17 07/12/17 14:15 14:15 22:15 Creatine Kinase 2821 H 2291 H CK-MB (CK-2) 20.90 H Troponin I 0.218 NT-Pro-B Natriuret Pep 07/12/17 22:15 Creatine Kinase CK-MB (CK-2) 11.30 H Troponin I 0.244 NT-Pro-B Natriuret Pep Impressions: Chest X-Ray 07/11/17 20:29 IMPRESSION: Minimal lingular atelectasis Venous Doppler Study 07/12/17 12:28 IMPRESSION: NO EVIDENCE OF DVT OR SVT IN THE RIGHT LEG. Assessment & Plan - Diagnosis (1) Acute kidney injury Is this a current diagnosis for this admission?: Yes (2) Metabolic acidosis, increased anion gap Is this a current diagnosis for this admission?: Yes (3) Hypotension Qualifiers: Hypotension type: unspecified hypotension type Qualified Code(s): I95.9 - Hypotension, unspecified Is this a current diagnosis for this admission?: Yes (4) Urinary tract infection Qualifiers: Urinary tract infection type: site unspecified Hematuria presence: without hematuria Qualified Code(s): N39.0 - Urinary tract infection, site not specified Is this a current diagnosis for this admission?: Yes - Plan Summary Plan Summary: Continue IV infusion, continue IV antibiotic
[2017-07-13] MEDS ORDERED: (PENDING PHARMACY ID) (Betamet Diprop/Prop Gly [Betamethasone Dp Aug 0.05% Cream] 1 APPLIC TOP SCH (18:15)
[2017-07-13] MEDS ORDERED: (PENDING PHARMACY ID) (Oxymorphone Hcl [Opana Er] 10 MG) PO SCH (18:15)
[2017-07-13] MEDS ORDERED: (PENDING PHARMACY ID) (Linagliptin [Tradjenta] 5 MG) PO SCH (18:15)
[2017-07-13] MEDS ORDERED: (PENDING PHARMACY ID) (Nystatin [Nystatin] 1 APPLIC) TOP SCH (18:15)
[2017-07-13] MEDS ORDERED: INSULIN ASPART 12 UNIT SUBCUT SCH (18:15)
[2017-07-13] MEDS ORDERED: ALBUTEROL SULFATE HFA (90 MCG/PUFF) 200 PUFF/8.5 GM MDI IH PRN (18:25)
[2017-07-13] MEDS ORDERED: INSULIN LISPRO 100 UNIT/ML 3 ML VIAL SUBCUT ONE (19:00)
[2017-07-13] MEDS ORDERED: GABAPENTIN 300 MG CAPSULE PO ONE (19:00)
[2017-07-13] MEDS ORDERED: SITAGLIPTIN PHOSPHATE 25 MG TABLET PO ONE (19:00)
[2017-07-13] MEDS ORDERED: PIOGLITAZONE HCL 30 MG TABLET PO ONE (19:00)
[2017-07-13] MEDS: OXYCODONE HCL IR 5 MG TABLET PO PRN (20:01)
[2017-07-13] MEDS: SODIUM BICARBONATE 650 MG TABLET PO SCH (21:47)
[2017-07-13] MEDS: NYSTATIN TOPICAL POWDER 15 GM TP SCH (23:28)
[2017-07-13] MEDS: GABAPENTIN 300 MG CAPSULE PO SCH (23:32)
[2017-07-14] MEDS: PIPERACILLIN SODIUM/TAZOBACTAM 2.25 GM in NORMAL SALINE 50 ML IV SCH ×3 (02:01→17:50)
[2017-07-14] MEDS: HYDROMORPHONE HCL INJ/PF 2 MG/ML AMPULE IV PRN ×5 (02:41→20:55)
[2017-07-14] MEDS: SODIUM BICARBONATE 650 MG TABLET PO SCH ×3 (05:34→21:33)
[2017-07-14] MEDS: GABAPENTIN 300 MG CAPSULE PO SCH ×3 (05:34→17:49)
[2017-07-14] MEDS: HEPARIN SOD (PORCINE) 5,000 UNIT/ML 1 ML SYRINGE SUBCUT SCH ×3 (05:53→21:34)
[2017-07-14 06:24] LABS: ALANINE AMINOTRANSFERASE 45 U/L (9-52); ALBUMIN 2.4 g/dL (3.5-5.0); ALKALINE PHOSPHATASE 56 U/L (38-126); ANION GAP 11 (5-19); ASPARTATE AMINO TRANSFERASE 45 U/L (14-36); BILIRUBIN,DIRECT 0.5 mg/dL (0.0-0.4); BILIRUBIN,TOTAL 0.5 mg/dL (0.2-1.3); BLOOD UREA NITROGEN 55 mg/dL (7-20); CALCIUM 7.5 mg/dL (8.4-10.2); CARBON DIOXIDE 19 mmol/L (22-30); CHLORIDE 114 mmol/L (98-107); CREATININE RESULT 3.63 mg/dL (0.52-1.25); GLUCOSE 120 mg/dL (75-110); POTASSIUM 4.1 mmol/L (3.6-5.0); SODIUM 144.4 mmol/L (137-145); TOTAL PROTEIN 5.3 g/dL (6.3-8.2)
[2017-07-14] MEDS: NORMAL SALINE 1000 ML 1,000 ML IV PRN ×3 (07:55→22:27)
[2017-07-14] MEDS: INSULIN LISPRO 100 UNIT/ML 3 ML VIAL SUBCUT SCH ×3 (09:09→17:47)
[2017-07-14] MEDS: NYSTATIN TOPICAL POWDER 15 GM TP SCH ×2 (09:20→21:34)
[2017-07-14] MEDS: SITAGLIPTIN PHOSPHATE 25 MG TABLET PO SCH (09:20)
[2017-07-14] MEDS: PIOGLITAZONE HCL 30 MG TABLET PO SCH (09:20)
[2017-07-14 14:50] LABS: ANION GAP 12 (5-19); BLOOD UREA NITROGEN 49 mg/dL (7-20); CALCIUM 7.7 mg/dL (8.4-10.2); CARBON DIOXIDE 18 mmol/L (22-30); CHLORIDE 116 mmol/L (98-107); CREATININE RESULT 3.06 mg/dL (0.52-1.25); GLUCOSE 92 mg/dL (75-110); POTASSIUM 4.2 mmol/L (3.6-5.0); SODIUM 145.5 mmol/L (137-145)
--- NOTE | 2017-07-14 15:27 | PDOC PROGRESS REPORT ---
Subjective Progress Note for:: 07/14/17 Subjective:: She was seen by the bedside, the kidney function is improving with hydration, she will be downgraded to IMCU Physical Exam Vital Signs: Temp Pulse Resp BP Pulse Ox 98.7 F 110 H 15 122/73 97 07/14/17 14:00 07/14/17 07:42 07/14/17 14:00 07/14/17 13:19 07/14/17 14:00 Intake & Output 07/13/17 07/14/17 07/15/17 06:59 06:59 06:59 Intake Total 5250 4847 400 Output Total 5100 3395 1100 Balance 150 1452 -700 Weight 127.4 kg 129 kg General appearance: PRESENT: no acute distress, well-developed, well-nourished Head exam: PRESENT: atraumatic, normocephalic Eye exam: PRESENT: conjunctiva pink, EOMI, PERRLA Ear exam: PRESENT: normal external ear exam Mouth exam: PRESENT: moist, tongue midline Neck exam: PRESENT: full ROM Respiratory exam: PRESENT: clear to auscultation stephen Cardiovascular exam: PRESENT: RRR, +S1, +S2 Vascular exam: PRESENT: normal capillary refill GI/Abdominal exam: PRESENT: normal bowel sounds, soft Rectal exam: PRESENT: deferred Neurological exam: PRESENT: alert. ABSENT: motor sensory deficit Psychiatric exam: PRESENT: appropriate affect, normal mood Skin exam: PRESENT: dry, intact, warm Results Laboratory Results: 07/13/17 05:45 07/14/17 14:12 07/14/17 07/14/17 05:15 14:12 Sodium 144.4 145.5 H Potassium 4.1 4.2 Chloride 114 H 116 H Carbon Dioxide 19 L 18 L Anion Gap 11 12 BUN 55 H 49 H Creatinine 3.63 H 3.06 H Est GFR ( Amer) 15 L 19 L Est GFR (Non-Af Amer) 13 L 16 L Glucose 120 H 92 Calcium 7.5 L 7.7 L Total Bilirubin 0.5 AST 45 H ALT 45 Alkaline Phosphatase 56 Total Protein 5.3 L Albumin 2.4 L 07/12/17 10:40 Walters Catheter Urine Culture - Final NO GROWTH 2 DAYS 07/12/17 07/12/17 07/12/17 09:18 09:18 09:18 Creatine Kinase 4180 H CK-MB (CK-2) 26.90 H Troponin I 0.090 NT-Pro-B Natriuret Pep 280 07/12/17 07/12/17 07/12/17 14:15 14:15 22:15 Creatine Kinase 2821 H 2291 H CK-MB (CK-2) 20.90 H Troponin I 0.218 NT-Pro-B Natriuret Pep 07/12/17 22:15 Creatine Kinase CK-MB (CK-2) 11.30 H Troponin I 0.244 NT-Pro-B Natriuret Pep Impressions: Chest X-Ray 07/11/17 20:29 IMPRESSION: Minimal lingular atelectasis Venous Doppler Study 07/12/17 12:28 IMPRESSION: NO EVIDENCE OF DVT OR SVT IN THE RIGHT LEG. Assessment & Plan - Diagnosis (1) Acute kidney injury Is this a current diagnosis for this admission?: Yes Plan: The kidney function is improving, the normal saline infusion rate to be decreased from 250 to -100 cc/h maintenance (2) Metabolic acidosis, increased anion gap Is this a current diagnosis for this admission?: Yes (3) Hypotension Qualifiers: Hypotension type: unspecified hypotension type Qualified Code(s): I95.9 - Hypotension, unspecified Is this a current diagnosis for this admission?: Yes (4) Urinary tract infection Qualifiers: Urinary tract infection type: site unspecified Hematuria presence: without hematuria Qualified Code(s): N39.0 - Urinary tract infection, site not specified Is this a current diagnosis for this admission?: Yes (5) Diabetes mellitus Qualifiers: Diabetes mellitus type: type 2 Diabetes mellitus complication status: with neurologic complications Diabetes mellitus complication detail: with polyneuropathy Diabetes mellitus intermediate manager insulin use: with intermediate manager use Qualified Code(s): E11.42 - Type 2 diabetes mellitus with diabetic polyneuropathy; Z79.4 - intermediate manager (current) use of insulin; Z79.4 - intermediate ( current) use of insulin; Z79.4 - intermediate manager (current) use of insulin; Z79.4 - intermediate (current) use of insulin Is this a current diagnosis for this admission?: Yes (6) Morbid obesity Is this a current diagnosis for this admission?: Yes
[2017-07-14] MEDS: GUAIFENESIN SYRP 200 MG/10 ML UDC PO PRN (16:23)
[2017-07-15] MEDS: HYDROMORPHONE HCL INJ/PF 2 MG/ML AMPULE IV PRN ×4 (00:24→21:42)
[2017-07-15] MEDS: GABAPENTIN 300 MG CAPSULE PO SCH ×4 (00:24→18:08)
[2017-07-15] MEDS: PIPERACILLIN SODIUM/TAZOBACTAM 2.25 GM in NORMAL SALINE 50 ML IV SCH ×3 (01:15→18:09)
[2017-07-15] MEDS: OXYCODONE HCL IR 5 MG TABLET PO PRN ×2 (04:37→18:08)
[2017-07-15] MEDS: SODIUM BICARBONATE 650 MG TABLET PO SCH ×3 (05:05→21:44)
[2017-07-15] MEDS: HEPARIN SOD (PORCINE) 5,000 UNIT/ML 1 ML SYRINGE SUBCUT SCH ×3 (05:05→21:44)
[2017-07-15 05:45] LABS: ALANINE AMINOTRANSFERASE 46 U/L (9-52); ALBUMIN 2.6 g/dL (3.5-5.0); ALKALINE PHOSPHATASE 81 U/L (38-126); ANION GAP 11 (5-19); ASPARTATE AMINO TRANSFERASE 44 U/L (14-36); BILIRUBIN,DIRECT 0.5 mg/dL (0.0-0.4); BILIRUBIN,TOTAL 0.5 mg/dL (0.2-1.3); BLOOD UREA NITROGEN 42 mg/dL (7-20); CALCIUM 7.7 mg/dL (8.4-10.2); CARBON DIOXIDE 19 mmol/L (22-30); CHLORIDE 117 mmol/L (98-107); CREATININE RESULT 2.75 mg/dL (0.52-1.25); GLUCOSE 81 mg/dL (75-110); POTASSIUM 4.4 mmol/L (3.6-5.0); SODIUM 147.2 mmol/L (137-145); TOTAL PROTEIN 5.7 g/dL (6.3-8.2)
[2017-07-15] MEDS: INSULIN LISPRO 100 UNIT/ML 3 ML VIAL SUBCUT SCH ×3 (08:05→16:41)
[2017-07-15] MEDS: PIOGLITAZONE HCL 30 MG TABLET PO SCH (09:47)
[2017-07-15] MEDS: SITAGLIPTIN PHOSPHATE 25 MG TABLET PO SCH (09:47)
[2017-07-15] MEDS: NYSTATIN TOPICAL POWDER 15 GM TP SCH ×2 (09:48→21:51)
[2017-07-15] MEDS: NORMAL SALINE 1000 ML 1,000 ML IV PRN ×2 (10:01→21:49)
[2017-07-15 14:45] LABS: ABSOLUTE EOSINOPHILS # (AUTO) 0.3 10^3/uL (0.0-0.6); ABSOLUTE LYMPHOCYTES (AUTO) 0.9 10^3/uL (0.5-4.7); ABSOLUTE MONOCYTES (AUTO) 0.7 10^3/uL (0.1-1.4); ABSOLUTE NEUT (AUTO) 5.2 10^3/uL (1.7-8.2); BASOPHILS % (AUTO) 0.3 % (0-2); EOSINOPHILS % (AUTO) 4.2 % (0-6); HEMATOCRIT 28.3 % (36.0-47.0); HEMOGLOBIN 9.3 g/dL (12.0-15.5); HGB HCT DIFFERENCE -0.4; LYMPHOCYTES % (AUTO) 12.1 % (13-45); MEAN CORPUSCULAR HEMOGLOBIN 28.8 pg (27.0-33.4); MEAN CORPUSCULAR VOLUME 87 fl (80-97); MONOCYTES % (AUTO) 10.1 % (3-13); RED BLOOD COUNT 3.25 10^6/uL (3.72-5.28); RED CELL DISTRIBUTION WIDTH 17.6 % (11.5-14.0); SEGMENTED NEUTROPHILS % (AUTO) 73.3 % (42-78); WHITE BLOOD COUNT 7.1 10^3/uL (4.0-10.5)
[2017-07-15 15:09] LABS: ALANINE AMINOTRANSFERASE 40 U/L (9-52); ALBUMIN 2.5 g/dL (3.5-5.0); ALKALINE PHOSPHATASE 83 U/L (38-126); ANION GAP 11 (5-19); ASPARTATE AMINO TRANSFERASE 42 U/L (14-36); BILIRUBIN,DIRECT 0.3 mg/dL (0.0-0.4); BILIRUBIN,TOTAL 0.4 mg/dL (0.2-1.3); BLOOD UREA NITROGEN 37 mg/dL (7-20); CALCIUM 7.4 mg/dL (8.4-10.2); CARBON DIOXIDE 19 mmol/L (22-30); CHLORIDE 116 mmol/L (98-107); CREATININE RESULT 2.65 mg/dL (0.52-1.25); GLUCOSE 107 mg/dL (75-110); POTASSIUM 4.3 mmol/L (3.6-5.0); SODIUM 146.1 mmol/L (137-145); TOTAL PROTEIN 5.5 g/dL (6.3-8.2)
--- NOTE | 2017-07-15 21:03 | PDOC PROGRESS REPORT ---
Subjective Progress Note for:: 07/15/17 Subjective:: Patient was seen by the bedside, the kidney function continues to improve, she has nasal congestion, cough Physical Exam Vital Signs: Temp Pulse Resp BP Pulse Ox 98.7 F 103 H 20 104/79 96 07/15/17 19:18 07/15/17 19:20 07/15/17 19:18 07/15/17 19:18 07/15/17 19:18 Intake & Output 07/14/17 07/15/17 07/16/17 06:59 06:59 06:59 Intake Total 4848 5723 1623 Output Total 3399 0055 1800 Balance 1452 1948 -177 Weight 129 kg 128.9 kg General appearance: PRESENT: no acute distress, well-developed, well-nourished Head exam: PRESENT: atraumatic, normocephalic Eye exam: PRESENT: conjunctiva pink, EOMI, PERRLA Ear exam: PRESENT: normal external ear exam Mouth exam: PRESENT: moist, tongue midline Neck exam: PRESENT: full ROM Respiratory exam: PRESENT: rhonchi Cardiovascular exam: PRESENT: RRR, +S1, +S2 Pulses: PRESENT: normal dorsalis pedis pul, +2 pedal pulses bilateral Vascular exam: PRESENT: normal capillary refill GI/Abdominal exam: PRESENT: normal bowel sounds, soft Rectal exam: PRESENT: deferred Neurological exam: PRESENT: alert, awake, oriented to person, oriented to place , oriented to time, oriented to situation, CN II-XII grossly intact. ABSENT: motor sensory deficit Psychiatric exam: PRESENT: appropriate affect, normal mood Skin exam: PRESENT: dry, intact, warm Results Laboratory Results: 07/15/17 14:10 07/15/17 14:10 07/15/17 07/15/17 07/15/17 05:18 14:10 14:10 WBC 7.1 RBC 3.25 L Hgb 9.3 L Hct 28.3 L MCV 87 MCH 28.8 MCHC 33.0 RDW 17.6 H Plt Count 118 L Seg Neutrophils % 73.3 Lymphocytes % 12.1 L Monocytes % 10.1 Eosinophils % 4.2 Basophils % 0.3 Absolute Neutrophils 5.2 Absolute Lymphocytes 0.9 Absolute Monocytes 0.7 Absolute Eosinophils 0.3 Absolute Basophils 0.0 Sodium 147.2 H 146.1 H Potassium 4.4 4.3 Chloride 117 H 116 H Carbon Dioxide 19 L 19 L Anion Gap 11 11 BUN 42 H 37 H Creatinine 2.75 H 2.65 H Est GFR ( Amer) 21 L 22 L Est GFR (Non-Af Amer) 18 L 18 L Glucose 81 107 Calcium 7.7 L 7.4 L Total Bilirubin 0.5 0.4 AST 44 H 42 H ALT 46 40 Alkaline Phosphatase 81 83 Total Protein 5.7 L 5.5 L Albumin 2.6 L 2.5 L 07/12/17 07/12/17 07/12/17 09:18 09:18 09:18 Creatine Kinase 4180 H CK-MB (CK-2) 26.90 H Troponin I 0.090 NT-Pro-B Natriuret Pep 280 07/12/17 07/12/17 07/12/17 14:15 14:15 22:15 Creatine Kinase 2821 H 2291 H CK-MB (CK-2) 20.90 H Troponin I 0.218 NT-Pro-B Natriuret Pep 07/12/17 22:15 Creatine Kinase CK-MB (CK-2) 11.30 H Troponin I 0.244 NT-Pro-B Natriuret Pep Impressions: Chest X-Ray 07/11/17 20:29 IMPRESSION: Minimal lingular atelectasis Venous Doppler Study 07/12/17 12:28 IMPRESSION: NO EVIDENCE OF DVT OR SVT IN THE RIGHT LEG. Assessment & Plan - Diagnosis (1) Acute kidney injury Is this a current diagnosis for this admission?: Yes (2) Metabolic acidosis, increased anion gap Is this a current diagnosis for this admission?: Yes (3) Hypotension Qualifiers: Hypotension type: unspecified hypotension type Qualified Code(s): I95.9 - Hypotension, unspecified Is this a current diagnosis for this admission?: Yes (4) Urinary tract infection Qualifiers: Urinary tract infection type: site unspecified Hematuria presence: without hematuria Qualified Code(s): N39.0 - Urinary tract infection, site not specified Is this a current diagnosis for this admission?: Yes (5) Diabetes mellitus Qualifiers: Diabetes mellitus type: type 2 Diabetes mellitus complication status: with neurologic complications Diabetes mellitus complication detail: with polyneuropathy Diabetes mellitus long term care social worker insulin use: with [facility] use Qualified Code(s): E11.42 - Type 2 diabetes mellitus with diabetic polyneuropathy; Z79.4 - long term care social worker (current) use of insulin; Z79.4 - long term care social worker ( current) use of insulin; Z79.4 - long term care social worker (current) use of insulin; Z79.4 - long term care social worker (current) use of insulin Is this a current diagnosis for this admission?: Yes (6) Morbid obesity Is this a current diagnosis for this admission?: Yes - Plan Summary Plan Summary: She will continue the IV hydration, DuoNeb nebulizer treatment every 4 hours as needed is ordered transfer
[2017-07-16] MEDS: GABAPENTIN 300 MG CAPSULE PO SCH ×4 (00:35→18:41)
[2017-07-16] MEDS: PIPERACILLIN SODIUM/TAZOBACTAM 2.25 GM in NORMAL SALINE 50 ML IV SCH ×3 (01:10→18:41)
[2017-07-16] MEDS: HYDROMORPHONE HCL INJ/PF 2 MG/ML AMPULE IV PRN ×5 (01:13→18:45)
[2017-07-16] MEDS: SODIUM BICARBONATE 650 MG TABLET PO SCH ×3 (05:55→22:21)
[2017-07-16] MEDS: HEPARIN SOD (PORCINE) 5,000 UNIT/ML 1 ML SYRINGE SUBCUT SCH ×3 (05:56→21:47)
[2017-07-16 07:16] LABS: ABSOLUTE EOSINOPHILS # (AUTO) 0.4 10^3/uL (0.0-0.6); ABSOLUTE LYMPHOCYTES (AUTO) 1.3 10^3/uL (0.5-4.7); ABSOLUTE MONOCYTES (AUTO) 0.9 10^3/uL (0.1-1.4); ABSOLUTE NEUT (AUTO) 5.7 10^3/uL (1.7-8.2); BASOPHILS % (AUTO) 0.2 % (0-2); EOSINOPHILS % (AUTO) 4.3 % (0-6); HEMATOCRIT 30.4 % (36.0-47.0); HEMOGLOBIN 9.9 g/dL (12.0-15.5); HGB HCT DIFFERENCE -0.7; LYMPHOCYTES % (AUTO) 15.7 % (13-45); MEAN CORPUSCULAR HEMOGLOBIN 28.5 pg (27.0-33.4); MEAN CORPUSCULAR HGB CONC 32.6 g/dL (32.0-36.0); MEAN CORPUSCULAR VOLUME 87 fl (80-97); MONOCYTES % (AUTO) 10.7 % (3-13); RED BLOOD COUNT 3.48 10^6/uL (3.72-5.28); RED CELL DISTRIBUTION WIDTH 17.4 % (11.5-14.0); SEGMENTED NEUTROPHILS % (AUTO) 69.1 % (42-78); WHITE BLOOD COUNT 8.3 10^3/uL (4.0-10.5)
[2017-07-16 07:26] LABS: ALANINE AMINOTRANSFERASE 41 U/L (9-52); ALBUMIN 2.6 g/dL (3.5-5.0); ALKALINE PHOSPHATASE 92 U/L (38-126); ANION GAP 11 (5-19); ASPARTATE AMINO TRANSFERASE 44 U/L (14-36); BILIRUBIN,DIRECT 0.4 mg/dL (0.0-0.4); BILIRUBIN,TOTAL 0.5 mg/dL (0.2-1.3); BLOOD UREA NITROGEN 33 mg/dL (7-20); CALCIUM 7.3 mg/dL (8.4-10.2); CARBON DIOXIDE 18 mmol/L (22-30); CHLORIDE 117 mmol/L (98-107); CREATININE RESULT 2.51 mg/dL (0.52-1.25); GLUCOSE 71 mg/dL (75-110); POTASSIUM 4.4 mmol/L (3.6-5.0); SODIUM 146.4 mmol/L (137-145); TOTAL PROTEIN 5.9 g/dL (6.3-8.2)
[2017-07-16] MEDS: INSULIN LISPRO 100 UNIT/ML 3 ML VIAL SUBCUT SCH ×3 (09:40→18:04)
[2017-07-16] MEDS: NORMAL SALINE 1000 ML 1,000 ML IV PRN (09:45)
[2017-07-16] MEDS: SITAGLIPTIN PHOSPHATE 25 MG TABLET PO SCH (09:46)
[2017-07-16] MEDS: PIOGLITAZONE HCL 30 MG TABLET PO SCH (09:46)
[2017-07-16] MEDS: NYSTATIN TOPICAL POWDER 15 GM TP SCH ×2 (09:46→22:23)
[2017-07-16] MEDS: IPRATROPIUM/ALBUTEROL 0.5-2.5 MG/3 ML AMPUL NEB PRN ×2 (14:12→20:12)
--- NOTE | 2017-07-16 19:02 | PDOC PROGRESS REPORT ---
Subjective Progress Note for:: 07/16/17 Subjective:: Patient was seen by the bedside, the kidney function is improving, she has weakness of the lower extremities Physical Exam Vital Signs: Temp Pulse Resp BP Pulse Ox 99.2 F 113 H 18 143/89 H 97 07/16/17 11:39 07/16/17 14:14 07/16/17 14:14 07/16/17 11:39 07/16/17 14:14 Intake & Output 07/15/17 07/16/17 07/17/17 06:59 06:59 06:59 Intake Total 5723 3723 1639 Output Total 3775 2980 700 Balance 1948 743 939 Weight 128.9 kg 127.4 kg General appearance: PRESENT: no acute distress, well-developed, well-nourished Head exam: PRESENT: atraumatic, normocephalic Eye exam: PRESENT: conjunctiva pink, EOMI, PERRLA Ear exam: PRESENT: normal external ear exam Mouth exam: PRESENT: moist, tongue midline Neck exam: PRESENT: full ROM. ABSENT: carotid bruit, JVD, lymphadenopathy, thyromegaly Respiratory exam: PRESENT: clear to auscultation stephen Cardiovascular exam: PRESENT: RRR, +S1, +S2 Pulses: PRESENT: normal dorsalis pedis pul, +2 pedal pulses bilateral Vascular exam: PRESENT: normal capillary refill GI/Abdominal exam: PRESENT: normal bowel sounds, soft Rectal exam: PRESENT: deferred Neurological exam: PRESENT: alert, awake, oriented to person, oriented to place , oriented to time, oriented to situation, CN II-XII grossly intact Psychiatric exam: PRESENT: appropriate affect, normal mood Skin exam: PRESENT: dry, intact, warm Results Laboratory Results: 07/16/17 06:00 07/16/17 06:00 07/16/17 07/16/17 06:00 06:00 WBC 8.3 RBC 3.48 L Hgb 9.9 L Hct 30.4 L MCV 87 MCH 28.5 MCHC 32.6 RDW 17.4 H Plt Count 134 L Seg Neutrophils % 69.1 Lymphocytes % 15.7 Monocytes % 10.7 Eosinophils % 4.3 Basophils % 0.2 Absolute Neutrophils 5.7 Absolute Lymphocytes 1.3 Absolute Monocytes 0.9 Absolute Eosinophils 0.4 Absolute Basophils 0.0 Sodium 146.4 H Potassium 4.4 Chloride 117 H Carbon Dioxide 18 L Anion Gap 11 BUN 33 H Creatinine 2.51 H Est GFR ( Amer) 24 L Est GFR (Non-Af Amer) 20 L Glucose 71 L Calcium 7.3 L Total Bilirubin 0.5 AST 44 H ALT 41 Alkaline Phosphatase 92 Total Protein 5.9 L Albumin 2.6 L 07/12/17 09:18 Blood Blood Culture - Final Staphylococcus Epidermidis 07/12/17 07/12/17 07/12/17 09:18 09:18 09:18 Creatine Kinase 4180 H CK-MB (CK-2) 26.90 H Troponin I 0.090 NT-Pro-B Natriuret Pep 280 07/12/17 07/12/17 07/12/17 14:15 14:15 22:15 Creatine Kinase 2821 H 2291 H CK-MB (CK-2) 20.90 H Troponin I 0.218 NT-Pro-B Natriuret Pep 07/12/17 22:15 Creatine Kinase CK-MB (CK-2) 11.30 H Troponin I 0.244 NT-Pro-B Natriuret Pep Impressions: Chest X-Ray 07/11/17 20:29 IMPRESSION: Minimal lingular atelectasis Venous Doppler Study 07/12/17 12:28 IMPRESSION: NO EVIDENCE OF DVT OR SVT IN THE RIGHT LEG. Assessment & Plan - Diagnosis (1) Acute kidney injury Is this a current diagnosis for this admission?: Yes (2) Metabolic acidosis, increased anion gap Is this a current diagnosis for this admission?: Yes (3) Hypotension Qualifiers: Hypotension type: unspecified hypotension type Qualified Code(s): I95.9 - Hypotension, unspecified Is this a current diagnosis for this admission?: Yes (4) Urinary tract infection Qualifiers: Urinary tract infection type: site unspecified Hematuria presence: without hematuria Qualified Code(s): N39.0 - Urinary tract infection, site not specified Is this a current diagnosis for this admission?: Yes (5) Diabetes mellitus Qualifiers: Diabetes mellitus type: type 2 Diabetes mellitus complication status: with neurologic complications Diabetes mellitus complication detail: with polyneuropathy Diabetes mellitus lobsterman insulin use: with [facility] use Qualified Code(s): E11.42 - Type 2 diabetes mellitus with diabetic polyneuropathy; Z79.4 - [facility] (current) use of insulin; Z79.4 - long term care social worker ( current) use of insulin; Z79.4 - long term care social worker (current) use of insulin; Z79.4 - long term care social worker (current) use of insulin Is this a current diagnosis for this admission?: Yes (6) Morbid obesity Is this a current diagnosis for this admission?: Yes - Plan Summary Plan Summary: She will continue IV therapy, consultation requested from physical therapy
[2017-07-16] MEDS ORDERED: FUROSEMIDE INJ/PF 40 MG/4 ML SDV IV ONE (21:30)
[2017-07-17] MEDS: GABAPENTIN 300 MG CAPSULE PO SCH ×4 (00:57→17:33)
[2017-07-17] MEDS: HYDROMORPHONE HCL INJ/PF 2 MG/ML AMPULE IV PRN ×4 (00:58→21:32)
[2017-07-17] MEDS: NORMAL SALINE 1000 ML 1,000 ML IV PRN (00:59)
[2017-07-17] MEDS: PIPERACILLIN SODIUM/TAZOBACTAM 2.25 GM in NORMAL SALINE 50 ML IV SCH ×3 (03:01→17:38)
[2017-07-17] MEDS: SODIUM BICARBONATE 650 MG TABLET PO SCH ×3 (06:44→21:32)
[2017-07-17] MEDS: HEPARIN SOD (PORCINE) 5,000 UNIT/ML 1 ML SYRINGE SUBCUT SCH ×3 (06:45→21:39)
[2017-07-17 07:18] LABS: ANION GAP 11 (5-19); BLOOD UREA NITROGEN 27 mg/dL (7-20); CARBON DIOXIDE 22 mmol/L (22-30); CHLORIDE 113 mmol/L (98-107); CREATININE RESULT 2.21 mg/dL (0.52-1.25); GLUCOSE 78 mg/dL (75-110); SODIUM 146.1 mmol/L (137-145)
[2017-07-17 07:29] LABS: CALCIUM 6.9 mg/dL (8.4-10.2)
[2017-07-17] MEDS: INSULIN LISPRO 100 UNIT/ML 3 ML VIAL SUBCUT SCH ×3 (07:52→17:39)
[2017-07-17] MEDS: NYSTATIN TOPICAL POWDER 15 GM TP SCH ×2 (11:41→21:39)
[2017-07-17] MEDS: OXYCODONE HCL IR 5 MG TABLET PO PRN (11:41)
[2017-07-17] MEDS: PIOGLITAZONE HCL 30 MG TABLET PO SCH (11:45)
--- NOTE | 2017-07-17 13:58 | PDOC PROGRESS REPORT ---
Subjective Progress Note for:: 07/17/17 Subjective:: Patient was seen by the bedside, the kidney function continues to improve, she has scattered wheeze and crackles on auscultation of the chest this is most likely from the IV fluid therapy, the Walters catheter be discontinued she be encouraged to get out of bed to chair and do physical therapy and hopefully discharge home in few days Physical Exam Vital Signs: Temp Pulse Resp BP Pulse Ox 99.1 F 104 H 20 117/73 99 07/17/17 11:38 07/17/17 11:38 07/17/17 11:38 07/17/17 11:38 07/17/17 11:38 Intake & Output 07/16/17 07/17/17 07/18/17 06:59 06:59 06:59 Intake Total 3723 7598 466 Output Total 2980 3750 1100 Balance 743 3848 -634 Weight 127.4 kg General appearance: PRESENT: no acute distress, well-developed, well-nourished Head exam: PRESENT: atraumatic, normocephalic Eye exam: PRESENT: conjunctiva pink, EOMI, PERRLA Ear exam: PRESENT: normal external ear exam Mouth exam: PRESENT: moist, tongue midline Respiratory exam: PRESENT: rhonchi, wheezes Cardiovascular exam: PRESENT: RRR, +S1, +S2 Vascular exam: PRESENT: normal capillary refill GI/Abdominal exam: PRESENT: normal bowel sounds, soft Rectal exam: PRESENT: deferred Neurological exam: PRESENT: alert, awake, oriented to person, oriented to place , oriented to time, oriented to situation, CN II-XII grossly intact. ABSENT: motor sensory deficit Psychiatric exam: PRESENT: appropriate affect, normal mood Skin exam: PRESENT: dry, intact, warm Results Laboratory Results: 07/16/17 06:00 07/17/17 05:40 07/17/17 05:40 Sodium 146.1 H Potassium 4.0 Chloride 113 H Carbon Dioxide 22 Anion Gap 11 BUN 27 H Creatinine 2.21 H Est GFR ( Amer) 27 L Est GFR (Non-Af Amer) 23 L Glucose 78 Calcium 6.9 L* 07/12/17 09:18 Blood Blood Culture - Final Staphylococcus Epidermidis 07/12/17 07/12/17 07/12/17 09:18 09:18 09:18 Creatine Kinase 4180 H CK-MB (CK-2) 26.90 H Troponin I 0.090 NT-Pro-B Natriuret Pep 280 07/12/17 07/12/17 07/12/17 14:15 14:15 22:15 Creatine Kinase 2821 H 2291 H CK-MB (CK-2) 20.90 H Troponin I 0.218 NT-Pro-B Natriuret Pep 07/12/17 22:15 Creatine Kinase CK-MB (CK-2) 11.30 H Troponin I 0.244 NT-Pro-B Natriuret Pep Impressions: Chest X-Ray 07/11/17 20:29 IMPRESSION: Minimal lingular atelectasis Venous Doppler Study 07/12/17 12:28 IMPRESSION: NO EVIDENCE OF DVT OR SVT IN THE RIGHT LEG. Assessment & Plan - Diagnosis (1) Acute kidney injury Is this a current diagnosis for this admission?: Yes Plan: The kidney function continues to improve not back to baseline yet (2) Metabolic acidosis, increased anion gap Is this a current diagnosis for this admission?: Yes (3) Hypotension Qualifiers: Hypotension type: unspecified hypotension type Qualified Code(s): I95.9 - Hypotension, unspecified Is this a current diagnosis for this admission?: Yes (4) Urinary tract infection Qualifiers: Urinary tract infection type: site unspecified Hematuria presence: without hematuria Qualified Code(s): N39.0 - Urinary tract infection, site not specified Is this a current diagnosis for this admission?: Yes (5) Diabetes mellitus Qualifiers: Diabetes mellitus type: type 2 Diabetes mellitus complication status: with neurologic complications Diabetes mellitus complication detail: with polyneuropathy Diabetes mellitus residential insulin use: with residential use Qualified Code(s): E11.42 - Type 2 diabetes mellitus with diabetic polyneuropathy; Z79.4 - long term care pharmacist (current) use of insulin; Z79.4 - nursing home ( current) use of insulin; Z79.4 - nursing home (current) use of insulin; Z79.4 - nursing home (current) use of insulin Is this a current diagnosis for this admission?: Yes (6) Morbid obesity Is this a current diagnosis for this admission?: Yes
[2017-07-17] MEDS: SITAGLIPTIN PHOSPHATE 25 MG TABLET PO SCH (17:32)
[2017-07-18] MEDS: PIPERACILLIN SODIUM/TAZOBACTAM 2.25 GM in NORMAL SALINE 50 ML IV SCH ×3 (02:05→18:09)
[2017-07-18] MEDS: OXYCODONE HCL IR 5 MG TABLET PO PRN ×2 (02:47→21:39)
[2017-07-18] MEDS: GABAPENTIN 300 MG CAPSULE PO SCH ×5 (05:44→23:50)
[2017-07-18] MEDS: HYDROMORPHONE HCL INJ/PF 2 MG/ML AMPULE IV PRN ×3 (05:54→18:11)
[2017-07-18] MEDS: SODIUM BICARBONATE 650 MG TABLET PO SCH ×3 (05:56→21:40)
[2017-07-18] MEDS: HEPARIN SOD (PORCINE) 5,000 UNIT/ML 1 ML SYRINGE SUBCUT SCH ×3 (06:00→21:41)
[2017-07-18 06:24] LABS: ANION GAP 10 (5-19); BLOOD UREA NITROGEN 22 mg/dL (7-20); CARBON DIOXIDE 24 mmol/L (22-30); CHLORIDE 112 mmol/L (98-107); CREATININE RESULT 1.95 mg/dL (0.52-1.25); GLUCOSE 79 mg/dL (75-110); POTASSIUM 4.2 mmol/L (3.6-5.0); SODIUM 145.7 mmol/L (137-145)
[2017-07-18 06:40] LABS: CALCIUM 6.7 mg/dL (8.4-10.2)
[2017-07-18] MEDS ORDERED: CALCIUM GLUCONATE 1000 MG/10 ML INJ IV ONE ×2 (08:06→08:33)
[2017-07-18] MEDS: INSULIN LISPRO 100 UNIT/ML 3 ML VIAL SUBCUT SCH ×3 (08:27→18:12)
[2017-07-18] MEDS: CYCLOBENZAPRINE HCL 10 MG TABLET PO PRN (08:43)
[2017-07-18] MEDS: NYSTATIN TOPICAL POWDER 15 GM TP SCH ×2 (08:43→21:41)
[2017-07-18] MEDS ORDERED: (PENDING PHARMACY ID) (Exenatide Microspheres [Bydureon Pen] 2 MG) SUBCUT SCH (10:00)
[2017-07-18] MEDS: SITAGLIPTIN PHOSPHATE 25 MG TABLET PO SCH (12:01)
[2017-07-18] MEDS: NORMAL SALINE 1000 ML 1,000 ML IV PRN (12:02)
[2017-07-18 12:41] LABS: ALANINE AMINOTRANSFERASE 77 U/L (9-52); ALBUMIN 2.8 g/dL (3.5-5.0); ALKALINE PHOSPHATASE 79 U/L (38-126); ANION GAP 12 (5-19); ASPARTATE AMINO TRANSFERASE 64 U/L (14-36); BILIRUBIN,DIRECT 0.4 mg/dL (0.0-0.4); BILIRUBIN,TOTAL 0.5 mg/dL (0.2-1.3); BLOOD UREA NITROGEN 20 mg/dL (7-20); CALCIUM 7.1 mg/dL (8.4-10.2); CARBON DIOXIDE 23 mmol/L (22-30); CHLORIDE 112 mmol/L (98-107); CREATININE RESULT 2.07 mg/dL (0.52-1.25); GLUCOSE 107 mg/dL (75-110); POTASSIUM 4.1 mmol/L (3.6-5.0); SODIUM 147.3 mmol/L (137-145); TOTAL PROTEIN 5.9 g/dL (6.3-8.2)
[2017-07-18] MEDS ORDERED: PREDNISONE 20 MG TABLET PO ONE (13:39)
[2017-07-18] MEDS ORDERED: COLCHICINE 0.6 MG TABLET PO ONE (13:45)
--- NOTE | 2017-07-18 14:28 | PDOC PROGRESS REPORT ---
Subjective Progress Note for:: 07/18/17 Subjective:: She has pain in the right big toe suggestive of acute gout. Physical Exam Vital Signs: Temp Pulse Resp BP Pulse Ox 98.7 F 107 H 24 H 149/78 H 97 07/18/17 11:56 07/18/17 11:56 07/18/17 11:56 07/18/17 11:56 07/18/17 11:56 Intake & Output 07/17/17 07/18/17 07/19/17 06:59 06:59 06:59 Intake Total 7598 2483 240 Output Total 3750 3540 800 Balance 0995 -1057 -560 Weight 129 kg General appearance: PRESENT: no acute distress, well-developed, well-nourished Head exam: PRESENT: atraumatic, normocephalic Eye exam: PRESENT: conjunctiva pink, EOMI, PERRLA Ear exam: PRESENT: normal external ear exam Mouth exam: PRESENT: moist, tongue midline Neck exam: PRESENT: full ROM Respiratory exam: PRESENT: clear to auscultation stephen Cardiovascular exam: PRESENT: RRR, +S1, +S2 Pulses: PRESENT: normal dorsalis pedis pul, +2 pedal pulses bilateral Vascular exam: PRESENT: normal capillary refill GI/Abdominal exam: PRESENT: normal bowel sounds, soft Rectal exam: PRESENT: deferred Extremities exam: PRESENT: other - Tenderness ,swelling of the right big toe Neurological exam: PRESENT: alert Psychiatric exam: PRESENT: appropriate affect, normal mood Skin exam: PRESENT: dry, intact, warm Results Laboratory Results: 07/16/17 06:00 07/18/17 12:10 07/18/17 07/18/17 05:20 12:10 Sodium 145.7 H 147.3 H Potassium 4.2 4.1 Chloride 112 H 112 H Carbon Dioxide 24 23 Anion Gap 10 12 BUN 22 H 20 Creatinine 1.95 H 2.07 H Est GFR ( Amer) 32 L 30 L Est GFR (Non-Af Amer) 26 L 24 L Glucose 79 107 Calcium 6.7 L* 7.1 L Total Bilirubin 0.5 AST 64 H ALT 77 H Alkaline Phosphatase 79 Total Protein 5.9 L Albumin 2.8 L 07/12/17 17:35 Blood Blood Culture - Final NO GROWTH IN 5 DAYS 11/06/17 11/06/17 11/06/17 09:18 09:18 09:18 Creatine Kinase 4180 H CK-MB (CK-2) 26.90 H Troponin I 0.090 NT-Pro-B Natriuret Pep 280 07/12/17 07/12/17 07/12/17 14:15 14:15 22:15 Creatine Kinase 2821 H 2291 H CK-MB (CK-2) 20.90 H Troponin I 0.218 NT-Pro-B Natriuret Pep 07/12/17 22:15 Creatine Kinase CK-MB (CK-2) 11.30 H Troponin I 0.244 NT-Pro-B Natriuret Pep Impressions: Chest X-Ray 07/11/17 20:29 IMPRESSION: Minimal lingular atelectasis Venous Doppler Study 07/12/17 12:28 IMPRESSION: NO EVIDENCE OF DVT OR SVT IN THE RIGHT LEG. Assessment & Plan - Diagnosis (1) Acute kidney injury Is this a current diagnosis for this admission?: Yes (2) Metabolic acidosis, increased anion gap Is this a current diagnosis for this admission?: Yes (3) Hypotension Qualifiers: Hypotension type: unspecified hypotension type Qualified Code(s): I95.9 - Hypotension, unspecified Is this a current diagnosis for this admission?: Yes (4) Urinary tract infection Qualifiers: Urinary tract infection type: site unspecified Hematuria presence: without hematuria Qualified Code(s): N39.0 - Urinary tract infection, site not specified Is this a current diagnosis for this admission?: Yes (5) Diabetes mellitus Qualifiers: Diabetes mellitus type: type 2 Diabetes mellitus complication status: with neurologic complications Diabetes mellitus complication detail: with polyneuropathy Diabetes mellitus care home insulin use: with care home use Qualified Code(s): E11.42 - Type 2 diabetes mellitus with diabetic polyneuropathy; Z79.4 - buttermaker (current) use of insulin; Z79.4 - shelter ( current) use of insulin; Z79.4 - buttermaker (current) use of insulin; Z79.4 - buttermaker (current) use of insulin Is this a current diagnosis for this admission?: Yes (6) Morbid obesity Is this a current diagnosis for this admission?: Yes (7) 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
[2017-07-18] MEDS: PIOGLITAZONE HCL 30 MG TABLET PO SCH (15:03)
[2017-07-18 15:54] LABS: HEMATOCRIT 30.5 % (36.0-47.0); HEMOGLOBIN 10.1 g/dL (12.0-15.5); HGB HCT DIFFERENCE -0.2; MEAN CORPUSCULAR HEMOGLOBIN 29.1 pg (27.0-33.4); MEAN CORPUSCULAR VOLUME 88 fl (80-97); RED BLOOD COUNT 3.46 10^6/uL (3.72-5.28); RED CELL DISTRIBUTION WIDTH 17.4 % (11.5-14.0); WHITE BLOOD COUNT 7.8 10^3/uL (4.0-10.5)
[2017-07-18] MEDS: GUAIFENESIN SYRP 200 MG/10 ML UDC PO PRN (18:12)
[2017-07-18] MEDS: COLCHICINE 0.6 MG TABLET PO SCH (21:40)
[2017-07-19] MEDS: PIPERACILLIN SODIUM/TAZOBACTAM 2.25 GM in NORMAL SALINE 50 ML IV SCH (01:04)
[2017-07-19] MEDS: HYDROMORPHONE HCL INJ/PF 2 MG/ML AMPULE IV PRN ×4 (01:04→20:08)
[2017-07-19] MEDS: NORMAL SALINE 1000 ML 1,000 ML IV PRN ×2 (03:46→18:02)
[2017-07-19 04:40] LABS: ANION GAP 11 (5-19); BLOOD UREA NITROGEN 21 mg/dL (7-20); CARBON DIOXIDE 22 mmol/L (22-30); CHLORIDE 113 mmol/L (98-107); CREATININE RESULT 1.86 mg/dL (0.52-1.25); GLUCOSE 155 mg/dL (75-110); POTASSIUM 4.8 mmol/L (3.6-5.0); SODIUM 146.3 mmol/L (137-145)
[2017-07-19 04:42] LABS: HEMATOCRIT 30.1 % (36.0-47.0); HEMOGLOBIN 10.1 g/dL (12.0-15.5); HGB HCT DIFFERENCE 0.2; MEAN CORPUSCULAR HEMOGLOBIN 29.3 pg (27.0-33.4); MEAN CORPUSCULAR HGB CONC 33.4 g/dL (32.0-36.0); MEAN CORPUSCULAR VOLUME 88 fl (80-97); RED BLOOD COUNT 3.43 10^6/uL (3.72-5.28); RED CELL DISTRIBUTION WIDTH 17.6 % (11.5-14.0); WHITE BLOOD COUNT 7.9 10^3/uL (4.0-10.5)
[2017-07-19] MEDS: HEPARIN SOD (PORCINE) 5,000 UNIT/ML 1 ML SYRINGE SUBCUT SCH ×3 (05:14→21:48)
[2017-07-19] MEDS: SODIUM BICARBONATE 650 MG TABLET PO SCH ×3 (05:16→21:48)
[2017-07-19] MEDS: GABAPENTIN 300 MG CAPSULE PO SCH ×4 (05:16→23:29)
[2017-07-19 05:18] LABS: CALCIUM 6.8 mg/dL (8.4-10.2)
[2017-07-19] MEDS: INSULIN LISPRO 100 UNIT/ML 3 ML VIAL SUBCUT SCH ×3 (07:21→17:50)
[2017-07-19] MEDS: PIOGLITAZONE HCL 30 MG TABLET PO SCH (09:45)
[2017-07-19] MEDS: COLCHICINE 0.6 MG TABLET PO SCH ×2 (09:45→21:49)
[2017-07-19] MEDS: CYCLOBENZAPRINE HCL 10 MG TABLET PO PRN (09:45)
[2017-07-19] MEDS: OXYCODONE HCL IR 5 MG TABLET PO PRN (09:46)
[2017-07-19] MEDS: SITAGLIPTIN PHOSPHATE 25 MG TABLET PO SCH (09:47)
[2017-07-19] MEDS: NYSTATIN TOPICAL POWDER 15 GM TP SCH ×2 (09:49→21:49)
--- NOTE | 2017-07-19 18:18 | PDOC PROGRESS REPORT ---
Subjective Progress Note for:: 07/19/17 Subjective:: Patient is alert, the kidney function is improving on hydration Physical Exam Vital Signs: Temp Pulse Resp BP Pulse Ox 98.1 F 85 18 124/86 H 97 07/19/17 10:55 07/19/17 14:00 07/19/17 10:55 07/19/17 10:55 07/19/17 10:55 Intake & Output 07/18/17 07/19/17 07/20/17 06:59 06:59 06:59 Intake Total 2483 3430 450 Output Total 3540 2900 900 Balance -1057 530 -450 Weight 129 kg 127.051 kg General appearance: PRESENT: no acute distress Head exam: PRESENT: atraumatic, normocephalic Eye exam: PRESENT: conjunctiva pink, EOMI, PERRLA Ear exam: PRESENT: normal external ear exam Mouth exam: PRESENT: moist, tongue midline Neck exam: PRESENT: full ROM Respiratory exam: PRESENT: clear to auscultation stephen Cardiovascular exam: PRESENT: RRR, +S1, +S2 Vascular exam: PRESENT: normal capillary refill GI/Abdominal exam: PRESENT: normal bowel sounds, soft Rectal exam: PRESENT: deferred Neurological exam: PRESENT: alert Psychiatric exam: ABSENT: homicidal ideation, suicidal ideation Skin exam: PRESENT: dry, intact, warm Results Laboratory Results: 07/19/17 04:05 07/19/17 04:05 07/19/17 07/19/17 04:05 04:05 WBC 7.9 RBC 3.43 L Hgb 10.1 L Hct 30.1 L MCV 88 MCH 29.3 MCHC 33.4 RDW 17.6 H Plt Count 161 Sodium 146.3 H Potassium 4.8 Chloride 113 H Carbon Dioxide 22 Anion Gap 11 BUN 21 H Creatinine 1.86 H Est GFR ( Amer) 33 L Est GFR (Non-Af Amer) 28 L Glucose 155 H Calcium 6.8 L* 07/12/17 07/12/17 07/12/17 09:18 09:18 09:18 Creatine Kinase 4180 H CK-MB (CK-2) 26.90 H Troponin I 0.090 NT-Pro-B Natriuret Pep 280 07/12/17 07/12/17 07/12/17 14:15 14:15 22:15 Creatine Kinase 2821 H 2291 H CK-MB (CK-2) 20.90 H Troponin I 0.218 NT-Pro-B Natriuret Pep 07/12/17 22:15 Creatine Kinase CK-MB (CK-2) 11.30 H Troponin I 0.244 NT-Pro-B Natriuret Pep Impressions: Chest X-Ray 07/11/17 20:29 IMPRESSION: Minimal lingular atelectasis Venous Doppler Study 07/12/17 12:28 IMPRESSION: NO EVIDENCE OF DVT OR SVT IN THE RIGHT LEG. Assessment & Plan - Diagnosis (1) Acute kidney injury Is this a current diagnosis for this admission?: Yes (2) Metabolic acidosis, increased anion gap Is this a current diagnosis for this admission?: Yes (3) Hypotension Qualifiers: Hypotension type: unspecified hypotension type Qualified Code(s): I95.9 - Hypotension, unspecified Is this a current diagnosis for this admission?: Yes (4) Urinary tract infection Qualifiers: Urinary tract infection type: site unspecified Hematuria presence: without hematuria Qualified Code(s): N39.0 - Urinary tract infection, site not specified Is this a current diagnosis for this admission?: Yes (5) Diabetes mellitus Qualifiers: Diabetes mellitus type: type 2 Diabetes mellitus complication status: with neurologic complications Diabetes mellitus complication detail: with polyneuropathy Diabetes mellitus rat exterminator insulin use: with [facility] use Qualified Code(s): E11.42 - Type 2 diabetes mellitus with diabetic polyneuropathy; Z79.4 - ocean transportation intermediary (current) use of insulin; Z79.4 - penitentiary ( current) use of insulin; Z79.4 - penitentiary (current) use of insulin; Z79.4 - penitentiary (current) use of insulin Is this a current diagnosis for this admission?: Yes (6) Morbid obesity Is this a current diagnosis for this admission?: Yes (7) 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 - Plan Summary Plan Summary: Continue treatment
[2017-07-20] MEDS: HYDROMORPHONE HCL INJ/PF 2 MG/ML AMPULE IV PRN ×4 (01:56→21:30)
[2017-07-20] MEDS: SODIUM BICARBONATE 650 MG TABLET PO SCH ×3 (05:26→21:17)
[2017-07-20] MEDS: HEPARIN SOD (PORCINE) 5,000 UNIT/ML 1 ML SYRINGE SUBCUT SCH ×3 (05:26→21:17)
[2017-07-20] MEDS: GABAPENTIN 300 MG CAPSULE PO SCH ×3 (05:26→17:25)
[2017-07-20 05:48] LABS: HEMATOCRIT 29.7 % (36.0-47.0); HEMOGLOBIN 9.6 g/dL (12.0-15.5); HGB HCT DIFFERENCE -0.9; MEAN CORPUSCULAR HEMOGLOBIN 28.8 pg (27.0-33.4); MEAN CORPUSCULAR HGB CONC 32.3 g/dL (32.0-36.0); MEAN CORPUSCULAR VOLUME 89 fl (80-97); RED BLOOD COUNT 3.33 10^6/uL (3.72-5.28); RED CELL DISTRIBUTION WIDTH 17.6 % (11.5-14.0); WHITE BLOOD COUNT 7.2 10^3/uL (4.0-10.5)
[2017-07-20 06:04] LABS: ANION GAP 14 (5-19); BLOOD UREA NITROGEN 20 mg/dL (7-20); CARBON DIOXIDE 22 mmol/L (22-30); CHLORIDE 114 mmol/L (98-107); GLUCOSE 102 mg/dL (75-110); POTASSIUM 3.7 mmol/L (3.6-5.0); SODIUM 149.8 mmol/L (137-145)
[2017-07-20 06:14] LABS: CALCIUM 6.2 mg/dL (8.4-10.2)
[2017-07-20] MEDS: INSULIN LISPRO 100 UNIT/ML 3 ML VIAL SUBCUT SCH ×3 (08:08→16:37)
[2017-07-20] MEDS: NORMAL SALINE 1000 ML 1,000 ML IV PRN (09:05)
[2017-07-20] MEDS: PIOGLITAZONE HCL 30 MG TABLET PO SCH (10:10)
[2017-07-20] MEDS: SITAGLIPTIN PHOSPHATE 25 MG TABLET PO SCH (10:10)
[2017-07-20] MEDS: NYSTATIN TOPICAL POWDER 15 GM TP SCH ×2 (10:11→21:20)
[2017-07-20] MEDS: COLCHICINE 0.6 MG TABLET PO SCH ×2 (10:11→21:17)
[2017-07-20] MEDS: OXYCODONE HCL IR 5 MG TABLET PO PRN (13:50)
--- NOTE | 2017-07-20 17:52 | PDOC PROGRESS REPORT ---
Subjective Progress Note for:: 07/20/17 Subjective:: Patient was seen by the bedside, she needs to do more physical therapy before discharge her home, and believes she can be discharged to this week a kidney function continues to improve but because she has a high output ileostomy bag I am somewhat reluctant to discharge her home before the kidney function fully recovered Physical Exam Vital Signs: Temp Pulse Resp BP Pulse Ox 98.4 F 92 16 148/80 H 96 07/20/17 15:03 07/20/17 15:03 07/20/17 15:03 07/20/17 15:03 07/20/17 17:03 Intake & Output 07/19/17 07/20/17 07/21/17 06:59 06:59 06:59 Intake Total 3430 3035 1185 Output Total 2900 4200 2700 Balance 530 -7515 -1515 Weight 127.051 kg 127 kg General appearance: PRESENT: no acute distress Eye exam: PRESENT: PERRLA Respiratory exam: PRESENT: clear to auscultation stephen Cardiovascular exam: PRESENT: +S1, +S2 GI/Abdominal exam: PRESENT: soft Neurological exam: PRESENT: alert Results Laboratory Results: 07/20/17 05:33 07/20/17 05:33 07/20/17 07/20/17 05:33 05:33 WBC 7.2 RBC 3.33 L Hgb 9.6 L Hct 29.7 L MCV 89 MCH 28.8 MCHC 32.3 RDW 17.6 H Plt Count 181 Sodium 149.8 H Potassium 3.7 Chloride 114 H Carbon Dioxide 22 Anion Gap 14 BUN 20 Creatinine 1.60 H Est GFR ( Amer) 40 L Est GFR (Non-Af Amer) 33 L Glucose 102 Calcium 6.2 L* 07/12/17 07/12/17 07/12/17 09:18 09:18 09:18 Creatine Kinase 4180 H CK-MB (CK-2) 26.90 H Troponin I 0.090 NT-Pro-B Natriuret Pep 280 07/12/17 07/12/17 07/12/17 14:15 14:15 22:15 Creatine Kinase 2821 H 2291 H CK-MB (CK-2) 20.90 H Troponin I 0.218 NT-Pro-B Natriuret Pep 07/12/17 22:15 Creatine Kinase CK-MB (CK-2) 11.30 H Troponin I 0.244 NT-Pro-B Natriuret Pep Impressions: Chest X-Ray 07/11/17 20:29 IMPRESSION: Minimal lingular atelectasis Venous Doppler Study 07/12/17 12:28 IMPRESSION: NO EVIDENCE OF DVT OR SVT IN THE RIGHT LEG. Assessment & Plan - Diagnosis (1) Acute kidney injury Is this a current diagnosis for this admission?: Yes (2) Metabolic acidosis, increased anion gap Is this a current diagnosis for this admission?: Yes (3) Hypotension Qualifiers: Hypotension type: unspecified hypotension type Qualified Code(s): I95.9 - Hypotension, unspecified Is this a current diagnosis for this admission?: Yes (4) Urinary tract infection Qualifiers: Urinary tract infection type: site unspecified Hematuria presence: without hematuria Qualified Code(s): N39.0 - Urinary tract infection, site not specified Is this a current diagnosis for this admission?: Yes (5) Diabetes mellitus Qualifiers: Diabetes mellitus type: type 2 Diabetes mellitus complication status: with neurologic complications Diabetes mellitus complication detail: with polyneuropathy Diabetes mellitus terminal operations supervisor insulin use: with terminal operations supervisor use Qualified Code(s): E11.42 - Type 2 diabetes mellitus with diabetic polyneuropathy; Z79.4 - custodial (current) use of insulin; Z79.4 - custodial ( current) use of insulin; Z79.4 - custodial (current) use of insulin; Z79.4 - custodial (current) use of insulin Is this a current diagnosis for this admission?: Yes (6) Morbid obesity Is this a current diagnosis for this admission?: Yes (7) 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
[2017-07-21] MEDS: NORMAL SALINE 1000 ML 1,000 ML IV PRN (00:01)
[2017-07-21] MEDS: HYDROMORPHONE HCL INJ/PF 2 MG/ML AMPULE IV PRN ×4 (03:27→22:28)
[2017-07-21] MEDS: SODIUM BICARBONATE 650 MG TABLET PO SCH ×3 (05:16→22:28)
[2017-07-21] MEDS: HEPARIN SOD (PORCINE) 5,000 UNIT/ML 1 ML SYRINGE SUBCUT SCH ×3 (05:17→22:28)
[2017-07-21] MEDS: GABAPENTIN 300 MG CAPSULE PO SCH ×5 (05:17→23:55)
[2017-07-21 05:59] LABS: HEMATOCRIT 29.4 % (36.0-47.0); HEMOGLOBIN 9.6 g/dL (12.0-15.5); HGB HCT DIFFERENCE -0.6; MEAN CORPUSCULAR HEMOGLOBIN 28.8 pg (27.0-33.4); MEAN CORPUSCULAR HGB CONC 32.4 g/dL (32.0-36.0); MEAN CORPUSCULAR VOLUME 89 fl (80-97); RED BLOOD COUNT 3.31 10^6/uL (3.72-5.28); RED CELL DISTRIBUTION WIDTH 17.7 % (11.5-14.0); WHITE BLOOD COUNT 6.9 10^3/uL (4.0-10.5)
[2017-07-21 06:15] LABS: ANION GAP 10 (5-19); BLOOD UREA NITROGEN 16 mg/dL (7-20); CARBON DIOXIDE 24 mmol/L (22-30); CHLORIDE 113 mmol/L (98-107); CREATININE RESULT 1.52 mg/dL (0.52-1.25); GLUCOSE 78 mg/dL (75-110); POTASSIUM 4.1 mmol/L (3.6-5.0); SODIUM 146.8 mmol/L (137-145)
[2017-07-21 06:30] LABS: CALCIUM 6.8 mg/dL (8.4-10.2)
[2017-07-21] MEDS: PIOGLITAZONE HCL 30 MG TABLET PO SCH (09:39)
[2017-07-21] MEDS: COLCHICINE 0.6 MG TABLET PO SCH ×2 (09:39→22:28)
[2017-07-21] MEDS: SITAGLIPTIN PHOSPHATE 25 MG TABLET PO SCH (09:39)
[2017-07-21] MEDS: NYSTATIN TOPICAL POWDER 15 GM TP SCH ×2 (09:46→22:34)
[2017-07-21] MEDS: INSULIN LISPRO 100 UNIT/ML 3 ML VIAL SUBCUT SCH ×3 (09:46→17:05)
[2017-07-21] MEDS: IPRATROPIUM/ALBUTEROL 0.5-2.5 MG/3 ML AMPUL NEB PRN ×2 (10:36→20:23)
--- NOTE | 2017-07-21 16:06 | PDOC PROGRESS REPORT ---
Subjective Progress Note for:: 07/21/17 Subjective:: Patient is alert kidney function is improving Physical Exam Vital Signs: Temp Pulse Resp BP Pulse Ox 98.2 F 107 H 20 124/70 100 07/21/17 11:30 07/21/17 14:00 07/21/17 11:30 07/21/17 11:30 07/21/17 11:30 Intake & Output 07/20/17 07/21/17 07/22/17 06:59 06:59 06:59 Intake Total 3035 3814 Output Total 4207 2160 Balance -1165 -1265 Weight 127 kg 126.7 kg General appearance: PRESENT: no acute distress Head exam: PRESENT: atraumatic, normocephalic Eye exam: PRESENT: conjunctiva pink, EOMI, PERRLA Ear exam: PRESENT: normal external ear exam Mouth exam: PRESENT: moist, tongue midline Neck exam: PRESENT: full ROM Respiratory exam: PRESENT: clear to auscultation stephen Cardiovascular exam: PRESENT: RRR, +S1, +S2 Pulses: PRESENT: normal dorsalis pedis pul, +2 pedal pulses bilateral Vascular exam: PRESENT: normal capillary refill GI/Abdominal exam: PRESENT: normal bowel sounds, soft Rectal exam: PRESENT: deferred Neurological exam: PRESENT: alert Psychiatric exam: ABSENT: homicidal ideation, suicidal ideation Skin exam: PRESENT: dry, intact, warm. ABSENT: cyanosis, rash Results Laboratory Results: 07/21/17 05:20 07/21/17 05:20 07/21/17 07/21/17 05:20 05:20 WBC 6.9 RBC 3.31 L Hgb 9.6 L Hct 29.4 L MCV 89 MCH 28.8 MCHC 32.4 RDW 17.7 H Plt Count 185 Sodium 146.8 H Potassium 4.1 Chloride 113 H Carbon Dioxide 24 Anion Gap 10 BUN 16 Creatinine 1.52 H Est GFR ( Amer) 42 L Est GFR (Non-Af Amer) 35 L Glucose 78 Calcium 6.8 L* 07/12/17 07/12/17 07/12/17 09:18 09:18 09:18 Creatine Kinase 4180 H CK-MB (CK-2) 26.90 H Troponin I 0.090 NT-Pro-B Natriuret Pep 280 07/12/17 07/12/17 07/12/17 14:15 14:15 22:15 Creatine Kinase 2821 H 2291 H CK-MB (CK-2) 20.90 H Troponin I 0.218 NT-Pro-B Natriuret Pep 07/12/17 22:15 Creatine Kinase CK-MB (CK-2) 11.30 H Troponin I 0.244 NT-Pro-B Natriuret Pep Impressions: Chest X-Ray 07/11/17 20:29 IMPRESSION: Minimal lingular atelectasis Venous Doppler Study 07/12/17 12:28 IMPRESSION: NO EVIDENCE OF DVT OR SVT IN THE RIGHT LEG. Assessment & Plan - Diagnosis (1) Acute kidney injury Is this a current diagnosis for this admission?: Yes (2) Metabolic acidosis, increased anion gap Is this a current diagnosis for this admission?: Yes (3) Hypotension Qualifiers: Hypotension type: unspecified hypotension type Qualified Code(s): I95.9 - Hypotension, unspecified Is this a current diagnosis for this admission?: Yes (4) Urinary tract infection Qualifiers: Urinary tract infection type: site unspecified Hematuria presence: without hematuria Qualified Code(s): N39.0 - Urinary tract infection, site not specified Is this a current diagnosis for this admission?: Yes (5) Diabetes mellitus Qualifiers: Diabetes mellitus type: type 2 Diabetes mellitus complication status: with neurologic complications Diabetes mellitus complication detail: with polyneuropathy Diabetes mellitus care home insulin use: with technician terminal and repeater use Qualified Code(s): E11.42 - Type 2 diabetes mellitus with diabetic polyneuropathy; Z79.4 - halfway (current) use of insulin; Z79.4 - halfway ( current) use of insulin; Z79.4 - halfway (current) use of insulin; Z79.4 - halfway (current) use of insulin Is this a current diagnosis for this admission?: Yes (6) Morbid obesity Is this a current diagnosis for this admission?: Yes (7) 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
[2017-07-22] MEDS: HYDROMORPHONE HCL INJ/PF 2 MG/ML AMPULE IV PRN ×4 (04:35→22:43)
[2017-07-22] MEDS: NORMAL SALINE 1000 ML 1,000 ML IV PRN ×2 (04:37→19:00)
[2017-07-22] MEDS: HEPARIN SOD (PORCINE) 5,000 UNIT/ML 1 ML SYRINGE SUBCUT SCH ×3 (05:14→21:15)
[2017-07-22] MEDS: SODIUM BICARBONATE 650 MG TABLET PO SCH ×3 (05:14→21:14)
[2017-07-22] MEDS: GABAPENTIN 300 MG CAPSULE PO SCH ×4 (05:15→23:48)
[2017-07-22 05:55] LABS: ANION GAP 10 (5-19); BLOOD UREA NITROGEN 13 mg/dL (7-20); CARBON DIOXIDE 25 mmol/L (22-30); CHLORIDE 112 mmol/L (98-107); CREATININE RESULT 1.56 mg/dL (0.52-1.25); GLUCOSE 88 mg/dL (75-110); POTASSIUM 4.5 mmol/L (3.6-5.0); SODIUM 146.8 mmol/L (137-145)
[2017-07-22] MEDS: INSULIN LISPRO 100 UNIT/ML 3 ML VIAL SUBCUT SCH ×3 (07:59→16:36)
[2017-07-22] MEDS: SITAGLIPTIN PHOSPHATE 25 MG TABLET PO SCH (09:00)
[2017-07-22] MEDS: NYSTATIN TOPICAL POWDER 15 GM TP SCH ×2 (09:00→21:15)
[2017-07-22] MEDS: PIOGLITAZONE HCL 30 MG TABLET PO SCH (09:00)
[2017-07-22] MEDS: COLCHICINE 0.6 MG TABLET PO SCH ×2 (09:00→21:14)
[2017-07-22] MEDS ORDERED: MAGNESIUM SULFATE/D5W 1 GM/100 ML RTUPB IV ONE ×2 (09:30→18:57)
[2017-07-22] MEDS: IPRATROPIUM/ALBUTEROL 0.5-2.5 MG/3 ML AMPUL NEB PRN (13:56)
[2017-07-22 15:36] LABS: ALANINE AMINOTRANSFERASE 105 U/L (9-52); ALBUMIN 2.8 g/dL (3.5-5.0); ALKALINE PHOSPHATASE 83 U/L (38-126); ASPARTATE AMINO TRANSFERASE 64 U/L (14-36); BILIRUBIN,DIRECT 0.3 mg/dL (0.0-0.4); BILIRUBIN,TOTAL 0.3 mg/dL (0.2-1.3); TOTAL PROTEIN 5.8 g/dL (6.3-8.2)
--- NOTE | 2017-07-22 17:17 | PDOC DISCHARGE SUMMARY ---
General - Admit/Disc Date/PCP Admission Date/Primary Care Provider: 07/12/17 07:25 LISA MATA MD Discharge Date: 07/23/17 - Discharge Diagnosis (1) Acute kidney injury Is this a current diagnosis for this admission?: Yes (2) Metabolic acidosis, increased anion gap Is this a current diagnosis for this admission?: Yes (3) Hypotension Is this a current diagnosis for this admission?: Yes (4) Urinary tract infection Is this a current diagnosis for this admission?: Yes (5) Diabetes mellitus Is this a current diagnosis for this admission?: Yes (6) Morbid obesity Is this a current diagnosis for this admission?: Yes (7) 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 - Additional Information Resuscitation Status: Full Code Discharge Diet: Diabetic Home Medications: Albuterol Sulfate [Proair HFA] 2 puff IH Q4HP PRN 07/12/17 Betamet Diprop/Prop Gly [Betamethasone Dp Aug 0.05% Cream] 1 applic TOP BID 02/20 Clotrimazole [Athlete's Foot] 1 applic TOP BID 07/12/17 Cyclobenzaprine HCl [Flexeril 10 mg Tablet] 10 mg PO TIDP PRN 07/12/17 Exenatide Microspheres [Bydureon Pen] 2 mg SUBCUT KYLE@1000 07/12/17 Gabapentin [Neurontin] 600 mg PO Q6 07/12/17 Glipizide [Glipizide Xl] 5 mg PO DAILY 07/12/17 Insulin Aspart [Novolog Flexpen] 12 unit SUBCUT TID 07/12/17 Insulin Glargine,Hum.rec.anlog [Lantus Solostar] 60 units SUBCUT BID 07/12/17 Linagliptin [Tradjenta] 5 mg PO DAILY 07/12/17 Metoprolol Succinate [Toprol Xl 50 mg Tab.sr] 50 mg PO DAILY 07/12/17 Nystatin 1 applic TOP BID 07/12/17 Oxycodone HCl [Oxycodone HCl 10 MG Tablet] 10 mg PO BIDP PRN 07/12/17 Oxymorphone HCl [Opana ER] 10 mg PO Q8 07/12/17 Pioglitazone HCl [Actos] 30 mg PO DAILY 07/12/17 Ramipril [Altace 10 mg Capsule] 10 mg PO DAILY 07/12/17 Sodium Bicarbonate [Sodium Bicarbonate 650 mg Tablet] 1,300 mg PO TID 07/12/17 History of Present Illness History of Present Illness: RANDEE VELÁSQUEZ is a 61 year old female she is well-known to me she has a history of high output ileostomy bag, she came to the emergency room for evaluation of malaise, anorexia, decreased urinary output. She said she has not been feeling well in the last week, she had a cord showed been drinking as much as well, she complained of leg cramps, shoulder cramps in the emergency room she was evaluated the initial blood work that was done showed sodium 126, BUN 115, creatinine 9.92. Arterial blood gas, FiO2 2 L pH 7.2, PO2 53.8 bicarbonate 16.3 CO2 34, this is consistent with increased anion gap metabolic acidosis with well compensated respiratory. Blood pressure recorded was also low. Patient has had this problems before. The urinalysis was grossly abnormal suggesting UTI. Hospital Course Hospital Course: Patient was admitted for the management of acute kidney injury associated with hypotension and UTI. She has high output ileostomy bag. She was managed in intensive care unit with fluids and initially with vasopressors. On admission she has severe acute kidney injury, severe metabolic acidosis, she was managed successfully electrolytes were corrected, she had hypokalemia, hypomagnesemia. She also had episode of acute gouty arthropathy of the right toe, this was treated with colchicine and a dose of prednisone. She has chronic pain, pain control was achieved with intravenous Dilaudid Physical Exam Vital Signs: Temp Pulse Resp BP Pulse Ox 98.2 F 104 H 18 148/82 H 99 07/22/17 16:02 07/22/17 16:02 07/22/17 16:02 07/22/17 16:02 07/22/17 16:02 Intake & Output 07/21/17 07/22/17 07/23/17 06:59 06:59 06:59 Intake Total 3814 3718 236 Output Total 5068 3400 850 Balance -1261 318 -614 Weight 126.7 kg 127 kg General appearance: PRESENT: no acute distress Head exam: PRESENT: atraumatic, normocephalic Eye exam: PRESENT: conjunctiva pink, EOMI, PERRLA Neck exam: PRESENT: full ROM Respiratory exam: PRESENT: clear to auscultation stephen Cardiovascular exam: PRESENT: RRR, +S1, +S2 Pulses: PRESENT: normal dorsalis pedis pul, +2 pedal pulses bilateral Vascular exam: PRESENT: normal capillary refill GI/Abdominal exam: PRESENT: normal bowel sounds, soft Rectal exam: PRESENT: deferred Neurological exam: PRESENT: alert, awake, oriented to person, oriented to place , oriented to time, oriented to situation, CN II-XII grossly intact Psychiatric exam: PRESENT: appropriate affect, normal mood Skin exam: PRESENT: dry, intact, warm Results Laboratory Results: 07/21/17 05:20 07/22/17 05:20 07/22/17 07/22/17 07/22/17 05:20 05:20 05:20 Sodium 146.8 H Potassium 4.5 Chloride 112 H Carbon Dioxide 25 Anion Gap 10 BUN 13 Creatinine 1.56 H Est GFR ( Amer) 41 L Est GFR (Non-Af Amer) 34 L Glucose 88 Calcium 7.0 L* Magnesium 0.7 L* Total Bilirubin 0.3 AST 64 H ALT 105 H Alkaline Phosphatase 83 Total Protein 5.8 L Albumin 2.8 L 07/12/17 07/12/17 07/12/17 09:18 09:18 09:18 Creatine Kinase 4180 H CK-MB (CK-2) 26.90 H Troponin I 0.090 NT-Pro-B Natriuret Pep 280 07/12/17 07/12/17 07/12/17 14:15 14:15 22:15 Creatine Kinase 2821 H 2291 H CK-MB (CK-2) 20.90 H Troponin I 0.218 NT-Pro-B Natriuret Pep 07/12/17 22:15 Creatine Kinase CK-MB (CK-2) 11.30 H Troponin I 0.244 NT-Pro-B Natriuret Pep Impressions: Chest X-Ray 07/11/17 20:29 IMPRESSION: Minimal lingular atelectasis Venous Doppler Study 07/12/17 12:28 IMPRESSION: NO EVIDENCE OF DVT OR SVT IN THE RIGHT LEG.
--- NOTE | 2017-07-22 17:19 | PDOC PROGRESS REPORT ---
Subjective Progress Note for:: 07/22/17 Subjective:: She was seen at the bedside she has severe hypomagnesemia, this to be replaced today, she be discharged home tomorrow Physical Exam Vital Signs: Temp Pulse Resp BP Pulse Ox 98.2 F 104 H 18 148/82 H 99 07/22/17 16:02 07/22/17 16:02 07/22/17 16:02 07/22/17 16:02 07/22/17 16:02 Intake & Output 07/21/17 07/22/17 07/23/17 06:59 06:59 06:59 Intake Total 3814 3718 236 Output Total 5011 3400 850 Balance -1261 318 -614 Weight 126.7 kg 127 kg General appearance: PRESENT: no acute distress, well-developed, well-nourished Head exam: PRESENT: atraumatic, normocephalic Eye exam: PRESENT: conjunctiva pink, EOMI, PERRLA Ear exam: PRESENT: normal external ear exam Mouth exam: PRESENT: moist, tongue midline Neck exam: PRESENT: full ROM Respiratory exam: PRESENT: clear to auscultation stephen Cardiovascular exam: PRESENT: RRR, +S2 Murmur grade: 3 Pulses: PRESENT: normal dorsalis pedis pul, +2 pedal pulses bilateral Vascular exam: PRESENT: normal capillary refill GI/Abdominal exam: PRESENT: normal bowel sounds, soft Rectal exam: PRESENT: deferred Neurological exam: PRESENT: alert, awake, oriented to person, oriented to place , oriented to time, oriented to situation, CN II-XII grossly intact. ABSENT: motor sensory deficit Psychiatric exam: PRESENT: appropriate affect, normal mood Skin exam: PRESENT: dry, intact, warm Results Laboratory Results: 07/21/17 05:20 07/22/17 05:20 07/22/17 07/22/17 07/22/17 05:20 05:20 05:20 Sodium 146.8 H Potassium 4.5 Chloride 112 H Carbon Dioxide 25 Anion Gap 10 BUN 13 Creatinine 1.56 H Est GFR ( Amer) 41 L Est GFR (Non-Af Amer) 34 L Glucose 88 Calcium 7.0 L* Magnesium 0.7 L* Total Bilirubin 0.3 AST 64 H ALT 105 H Alkaline Phosphatase 83 Total Protein 5.8 L Albumin 2.8 L 07/12/17 07/12/17 07/12/17 09:18 09:18 09:18 Creatine Kinase 4180 H CK-MB (CK-2) 26.90 H Troponin I 0.090 NT-Pro-B Natriuret Pep 280 07/12/17 07/12/17 07/12/17 14:15 14:15 22:15 Creatine Kinase 2821 H 2291 H CK-MB (CK-2) 20.90 H Troponin I 0.218 NT-Pro-B Natriuret Pep 07/12/17 22:15 Creatine Kinase CK-MB (CK-2) 11.30 H Troponin I 0.244 NT-Pro-B Natriuret Pep Impressions: Chest X-Ray 07/11/17 20:29 IMPRESSION: Minimal lingular atelectasis Venous Doppler Study 07/12/17 12:28 IMPRESSION: NO EVIDENCE OF DVT OR SVT IN THE RIGHT LEG. Assessment & Plan - Diagnosis (1) Acute kidney injury Is this a current diagnosis for this admission?: Yes (2) Metabolic acidosis, increased anion gap Is this a current diagnosis for this admission?: Yes (3) Hypotension Qualifiers: Hypotension type: unspecified hypotension type Qualified Code(s): I95.9 - Hypotension, unspecified Is this a current diagnosis for this admission?: Yes (4) Urinary tract infection Qualifiers: Urinary tract infection type: site unspecified Hematuria presence: without hematuria Qualified Code(s): N39.0 - Urinary tract infection, site not specified Is this a current diagnosis for this admission?: Yes (5) Diabetes mellitus Qualifiers: Diabetes mellitus type: type 2 Diabetes mellitus complication status: with neurologic complications Diabetes mellitus complication detail: with polyneuropathy Diabetes mellitus long term care pharmacist insulin use: with penitentiary use Qualified Code(s): E11.42 - Type 2 diabetes mellitus with diabetic polyneuropathy; 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
[2017-07-22] MEDS: MAGNESIUM SULFATE 1 GM/D5W 100 ML IV SCH ×2 (19:05→20:03)
[2017-07-23] MEDS: HYDROMORPHONE HCL INJ/PF 2 MG/ML AMPULE IV PRN ×2 (04:56→11:35)
[2017-07-23] MEDS: SODIUM BICARBONATE 650 MG TABLET PO SCH (05:05)
[2017-07-23] MEDS: GABAPENTIN 300 MG CAPSULE PO SCH ×2 (05:06→11:35)
[2017-07-23] MEDS: HEPARIN SOD (PORCINE) 5,000 UNIT/ML 1 ML SYRINGE SUBCUT SCH (05:06)
[2017-07-23 05:35] LABS: ANION GAP 9 (5-19); BLOOD UREA NITROGEN 11 mg/dL (7-20); CALCIUM 7.4 mg/dL (8.4-10.2); CARBON DIOXIDE 24 mmol/L (22-30); CHLORIDE 110 mmol/L (98-107); CREATININE RESULT 1.54 mg/dL (0.52-1.25); GLUCOSE 68 mg/dL (75-110); POTASSIUM 4.4 mmol/L (3.6-5.0); SODIUM 143.4 mmol/L (137-145)
[2017-07-23] MEDS ORDERED: ALBUTEROL SULFATE HFA (90 MCG/PUFF) 200 PUFF/8.5 GM MDI IH ONE (06:09)
[2017-07-23] MEDS: INSULIN LISPRO 100 UNIT/ML 3 ML VIAL SUBCUT SCH ×2 (07:43→11:36)
[2017-07-23] MEDS: IPRATROPIUM/ALBUTEROL 0.5-2.5 MG/3 ML AMPUL NEB PRN (08:28)
[2017-07-23] MEDS: PIOGLITAZONE HCL 30 MG TABLET PO SCH (09:54)
[2017-07-23] MEDS: COLCHICINE 0.6 MG TABLET PO SCH (09:54)
[2017-07-23] MEDS: OXYCODONE HCL IR 5 MG TABLET PO PRN (09:54)
[2017-07-23] MEDS: SITAGLIPTIN PHOSPHATE 25 MG TABLET PO SCH (09:55)
[2017-07-23] MEDS: NYSTATIN TOPICAL POWDER 15 GM TP SCH (09:56)
[2017-07-23] MEDS: NORMAL SALINE 1000 ML 1,000 ML IV PRN (09:56)
[2017-07-23 14:38] VITALS: BP 131/85
== END 2017-07-23 14:51 | disposition home or self-care (01) | DRG 683 ==
LOC: ER 18:33 → EH 07-12 07:25 → UNDOADMIN 07-12 07:27 → EH 07-12 07:27 → ICU 07-12 08:58 → 3W 07-14 18:48
PROVIDERS: ADMIT Internal Medicine; ATTEND Internal Medicine
DX: N17.9 Acute kidney failure, unspecified (principal); E87.2 Acidosis; N39.0 Urinary tract infection, site not specified; Z68.43 Body mass index [BMI] 50.0-59.9, adult; E83.42 Hypomagnesemia; E87.5 Hyperkalemia; E66.01 Morbid (severe) obesity due to excess calories; I10 Essential (primary) hypertension; K21.9 Gastro-esophageal reflux disease without esophagitis; K44.9 Diaphragmatic hernia without obstruction or gangrene; D64.9 Anemia, unspecified; I48.91 Unspecified atrial fibrillation; I25.10 Atherosclerotic heart disease of native coronary artery without angina pectoris; E11.9 Type 2 diabetes mellitus without complications; N28.9 Disorder of kidney and ureter, unspecified; M10.371 Gout due to renal impairment, right ankle and foot; Z79.4 Long term (current) use of insulin; Z79.899 Other long term (current) drug therapy; Z93.2 Ileostomy status; I25.2 Old myocardial infarction; Z86.718 Personal history of other venous thrombosis and embolism; Z95.5 Presence of coronary angioplasty implant and graft; Z96.652 Presence of left artificial knee joint; Z88.1 Allergy status to other antibiotic agents; Z88.8 Allergy status to other drugs, medicaments and biological substances
CPT/HCPCS: 36415; 51702; 71020; 80048; 80053; 80061; 80076; 81001; 82140; 82150; 82550; 82553; 82803; 82962; 83036; 83690; 83735; 83880; 84100; 84439; 84443; 84484; 85025; 85027; 85610; 85730; 87040; 87077; 87086; 87186; 90686; 93005; 93010; 93971; 94640; 96361; 96365; 96366; 96367; 96375; 96376; 99291; 99292; C1751; G8978-GP; G8979-GP; J0610; J1170; J1265; J1644; J1815; J1940; J2543; J3010; J3475; J3490; J7030; J7060; J7512; J7620

== ENCOUNTER 2017-08-17 13:33 | Inpatient (IN) | payer MEDICARE, MEDICAID ==
--- NOTE | 2017-08-17 14:16 | ER Document Report ---
ED Medical Screen (RME) - General Chief Complaint: Abnormal Lab Results Stated Complaint: ABNORMAL LABS Time Seen by Provider: 08/17/17 13:54 Notes: This 7-year-old female patient comes emergency room on the request of her physician to "get some fluids". She had outpatient lab work done yesterday in the office which is not available to us at this time. She is noted to be tachycardic at this time. She has what sounds like a high output ileostomy as the source of her problem. I have greeted and performed a rapid initial assessment of this patient. A comprehensive ED assessment and evaluation of the patient, analysis of test results and completion of the medical decision making process will be conducted by additional ED providers. TRAVEL OUTSIDE OF THE [place] IN LAST 30 DAYS: No - Related Data Allergies/Adverse Reactions: ciprofloxacin [From Cipro] Allergy (Severe, Verified 08/17/17 13:55) Hallucinations morphine [Morphine] Allergy (Unknown, Verified 08/17/17 13:55) Past Medical History - Social History Chew tobacco use (# tins/day): No Frequency of alcohol use: None Drug Abuse: None - Past Medical History Cardiac Medical History: Reports: Hx Atrial Fibrillation, Hx Coronary Artery Disease, Hx DVT, Hx Heart Attack - 2002, Hx Hypercholesterolemia, Hx Hypertension Pulmonary Medical History: Reports: Hx Pneumonia - 2006 Endocrine Medical History: Reports: Hx Diabetes Mellitus Type 2 Renal/ Medical History: Reports: Hx Ovarian Cysts. Denies: Hx Peritoneal Dialysis Malignancy Medical History: Reports: Hx Renal (Kidney) Cancer GI Medical History: Reports: Hx Gastroesophageal Reflux Disease, Hx Hiatal Hernia, Hx Irritable Bowel, Hx Ulcer Musculoskeltal Medical History: Reports Hx Arthritis - Back, Knees Psychiatric Medical History: Denies: Hx Depression Traumatic Medical History: Reports: Hx Fractures Past Surgical History: Reports: Hx Abdominal Surgery - COLOSTOMY. INTESTINAL RUPTURE, Hx Bowel Surgery - COLECTOMY, Hx Cardiac Catheterization - stents, Hx Cardiac Surgery - STENTS, Hx Colostomy, Hx Coronary Stent, Hx Hysterectomy, Hx Orthopedic Surgery - L knee replacement, right ankle pin - Immunizations Immunizations up to date: Yes Hx Diphtheria, Pertussis, Tetanus Vaccination: No History of Influenza Vaccine for 06/2017 - 11/2017 Season: No Physical Exam - Vital signs Vitals: Temp Pulse Resp BP Pulse Ox 100.0 F 130 H 18 129/75 H 97 08/17/17 13:49 08/17/17 13:49 08/17/17 13:49 08/17/17 13:49 08/17/17 13:49 Course - Vital Signs Vital signs: Temp Pulse Resp BP Pulse Ox 100.0 F 130 H 18 129/75 H 97 08/17/17 13:49 08/17/17 13:49 08/17/17 13:49 08/17/17 13:49 08/17/17 13:49
[2017-08-17 15:44] LABS: ABSOLUTE EOSINOPHILS # (AUTO) 0.1 10^3/uL (0.0-0.6); ABSOLUTE MONOCYTES (AUTO) 0.9 10^3/uL (0.1-1.4); ABSOLUTE NEUT (AUTO) 11.8 10^3/uL (1.7-8.2); BASOPHILS % (AUTO) 0.2 % (0-2); EOSINOPHILS % (AUTO) 0.5 % (0-6); HEMATOCRIT 32.9 % (36.0-47.0); HEMOGLOBIN 10.8 g/dL (12.0-15.5); LYMPHOCYTES % (AUTO) 7.3 % (13-45); MEAN CORPUSCULAR HEMOGLOBIN 29.1 pg (27.0-33.4); MEAN CORPUSCULAR VOLUME 88 fl (80-97); MONOCYTES % (AUTO) 6.7 % (3-13); PLATELET COUNT 219 10^3/uL (150-450); RED BLOOD COUNT 3.72 10^6/uL (3.72-5.28); RED CELL DISTRIBUTION WIDTH 16.7 % (11.5-14.0); SEGMENTED NEUTROPHILS % (AUTO) 85.3 % (42-78); TOTAL CELLS COUNTED % (AUTO) 100 %; WHITE BLOOD COUNT 13.8 10^3/uL (4.0-10.5)
[2017-08-17 16:02] LABS: ALANINE AMINOTRANSFERASE 69 U/L (9-52); ALBUMIN 4.2 g/dL (3.5-5.0); ALKALINE PHOSPHATASE 96 U/L (38-126); ANION GAP 17 (5-19); ASPARTATE AMINO TRANSFERASE 60 U/L (14-36); BILIRUBIN,DIRECT 0.4 mg/dL (0.0-0.4); BILIRUBIN,TOTAL 0.7 mg/dL (0.2-1.3); BLOOD UREA NITROGEN 104 mg/dL (7-20); CALCIUM 9.8 mg/dL (8.4-10.2); CARBON DIOXIDE 16 mmol/L (22-30); CHLORIDE 100 mmol/L (98-107); CREATINE KINASE 194 U/L (30-135); GLUCOSE 104 mg/dL (75-110); POTASSIUM 5.9 mmol/L (3.6-5.0); SODIUM 132.8 mmol/L (137-145); TOTAL PROTEIN 8.1 g/dL (6.3-8.2)
[2017-08-17 16:13] LABS: CREATINE KINASE MB 4.58 ng/mL (<4.55); TROPONIN I 0.022 ng/mL
[2017-08-17] MEDS ORDERED: NORMAL SALINE 1000 ML 1,000 ML IV ONE ×2 (16:21→17:38)
[2017-08-17] MEDS ORDERED: CALCIUM GLUCONATE 1000 MG/10 ML INJ IV ONE (16:24)
[2017-08-17] MEDS ORDERED: DEXTROSE 50%-WATER 25 GM/50 ML DISP.SYRIN IV ONE (16:25)
--- NOTE | 2017-08-17 16:29 | ER Document Report ---
ED General - General Chief Complaint: Abnormal Lab Results Stated Complaint: ABNORMAL LABS Time Seen by Provider: 08/17/17 13:54 Information [facility] Records Notes: This 7-year-old female patient comes emergency room on the advice of her primary care provider. Lab work was done yesterday and she does not know what it showed. Review of the record shows that she had been here 1 month ago with acute renal failure. She does have a high output ileostomy which is worse than usual. She is found to be tachycardic. TRAVEL OUTSIDE OF THE [place] IN LAST 30 DAYS: No - Related Data Allergies/Adverse Reactions: ciprofloxacin [From Cipro] Allergy (Severe, Verified 08/17/17 13:55) Hallucinations morphine [Morphine] Allergy (Unknown, Verified 08/17/17 13:55) Past Medical History - General Information source: Patient, [facility] Records - Social History Smoking Status: Never Smoker Cigarette use (# per day): No Chew tobacco use (# tins/day): No Smoking Education Provided: No Frequency of alcohol use: None Drug Abuse: None Occupation: Unemployed Lives with: Family Family History: Hypertension Patient has suicidal ideation: No Patient has homicidal ideation: No - Past Medical History Cardiac Medical History: Reports: Hx Atrial Fibrillation, Hx Coronary Artery Disease, Hx DVT, Hx Heart Attack - 2002, Hx Hypercholesterolemia, Hx Hypertension Pulmonary Medical History: Reports: Hx Pneumonia - 2006 EENT Medical History: Reports: None Neurological Medical History: Reports: None Endocrine Medical History: Reports: Hx Diabetes Mellitus Type 2 Renal/ Medical History: Reports: Hx Ovarian Cysts, Hx Renal Insufficiency Malignancy Medical History: Reports: Hx Renal (Kidney) Cancer GI Medical History: Reports: Hx Gastroesophageal Reflux Disease, Hx Hiatal Hernia, Hx Irritable Bowel, Hx Ulcer Musculoskeltal Medical History: Reports Hx Arthritis - Back, Knees Psychiatric Medical History: Reports: None Traumatic Medical History: Reports: Hx Fractures Past Surgical History: Reports: Hx Bowel Surgery - COLECTOMY/ileostomy, Hx Cardiac Catheterization, Hx Coronary Stent, Hx Hysterectomy, Hx Ileostomy, Hx Orthopedic Surgery - L knee replacement, right ankle pin - Immunizations Immunizations up to date: Yes Hx Diphtheria, Pertussis, Tetanus Vaccination: No Hx Pneumococcal Vaccination: 09/19/13 Review of Systems - Review of Systems Constitutional: No symptoms reported EENT: No symptoms reported Cardiovascular: No symptoms reported Respiratory: No symptoms reported Gastrointestinal: See HPI - Patient has a high output ileostomy Genitourinary: No symptoms reported Female Genitourinary: Post menopausal Musculoskeletal: No symptoms reported Skin: No symptoms reported Hematologic/Lymphatic: No symptoms reported Neurological/Psychological: No symptoms reported Physical Exam - Vital signs Vitals: Temp Pulse Resp BP Pulse Ox 100.0 F 130 H 18 129/75 H 97 08/17/17 13:49 08/17/17 13:49 08/17/17 13:49 08/17/17 13:49 08/17/17 13:49 Interpretation: Tachycardic, Febrile - General General appearance: Appears well, Alert In distress: None - HEENT Head: Normocephalic, Atraumatic Eyes: Normal Pupils: PERRL - Respiratory Respiratory status: No respiratory distress Breath sounds: Normal - Cardiovascular Rhythm: Tachycardia Heart sounds: Normal auscultation Murmur: No - Abdominal Inspection: Obese, Other - Ileostomy Distension: No distension Bowel sounds: Normal Tenderness: Nontender - Back Back: Normal - Extremities General upper extremity: Normal inspection General lower extremity: Normal inspection - Neurological Neuro grossly intact: Yes - Psychological Associated symptoms: Normal affect, Normal mood - Skin Skin Temperature: Warm Skin Moisture: Dry Skin Color: Normal Course - Vital Signs Vital signs: Temp Pulse Resp BP Pulse Ox 100.0 F 130 H 18 129/75 H 97 08/17/17 13:49 08/17/17 13:49 08/17/17 13:49 08/17/17 13:49 08/17/17 13:49 - Laboratory Result Diagrams: 08/17/17 15:23 08/17/17 15:23 Laboratory results interpreted by me: 08/17/17 08/17/17 08/17/17 15:23 15:23 15:23 WBC 13.8 H Hgb 10.8 L Hct 32.9 L RDW 16.7 H Seg Neutrophils % 85.3 H Lymphocytes % 7.3 L Absolute Neutrophils 11.8 H Sodium 132.8 L Potassium 5.9 H Carbon Dioxide 16 L BUN 104 H Creatinine 4.96 H Est GFR ( Amer) 11 L Est GFR (Non-Af Amer) 9 L Magnesium 1.3 L AST 60 H ALT 69 H Creatine Kinase 194 H CK-MB (CK-2) 4.58 H - EKG Interpretation by Me EKG shows normal: Sinus rhythm, [place], Intervals, ST-T Waves. abnormal: QRS Complexes - Old inferior IN Rate: Tachycardia - 125 - Consults Dr. Barakat Consulted provider: will see as inpatient - Telemetry admission Critical Care Note - Critical Care Note Total time excluding time spent on procedures (mins): 35 Discharge - Discharge Clinical Impression: Dehydration, Acute kidney injury, Hyperkalemia Acute renal failure Qualifiers: Acute renal failure type: unspecified Qualified Code(s): N17.9 - Acute kidney failure, unspecified Condition: Good Disposition: ADMITTED INPATIENT Admitting Provider: Yu[facility] Unit Admitted: Telemetry
[2017-08-17] MEDS ORDERED: (PENDING PHARMACY ID) (Betamet Diprop/Prop Gly [Betamethasone Dp Aug 0.05% Cream] 1 APPLIC TOP PRN (19:20)
[2017-08-17] MEDS ORDERED: CYCLOBENZAPRINE HCL 10 MG TABLET PO PRN (19:20)
[2017-08-17] MEDS ORDERED: GLUCAGON,HUMAN RECOMB 1 MG INJ IM PRN (19:22)
[2017-08-17] MEDS ORDERED: DEXTROSE 40% GEL 15 GM TUBE PO PRN ×2 (19:22)
[2017-08-17] MEDS ORDERED: DEXTROSE 50%-WATER 25 GM/50 ML DISP.SYRIN IV PRN ×2 (19:22)
[2017-08-17] MEDS ORDERED: INSULIN LISPRO 100 UNIT/ML 3 ML VIAL SUBCUT PRN (19:22)
[2017-08-17] MEDS ORDERED: (PENDING PHARMACY ID) (Nystatin [Nystatin] 1 APPLIC) TOP SCH (19:30)
[2017-08-17] MEDS ORDERED: (PENDING PHARMACY ID) (Linagliptin [Tradjenta] 5 MG) PO SCH (19:30)
[2017-08-17] MEDS ORDERED: INSULIN GLARGINE,HUM.REC.ANLOG 300 UNIT/3 ML INSULN.PEN SUBCUT SCH (19:30)
[2017-08-17] MEDS ORDERED: INSULIN ASPART 12 UNIT SUBCUT SCH (19:30)
[2017-08-17] MEDS ORDERED: (PENDING PHARMACY ID) (Oxymorphone Hcl [Opana Er] 10 MG) PO SCH (19:30)
[2017-08-17] MEDS ORDERED: ALBUTEROL SULFATE HFA (90 MCG/PUFF) 200 PUFF/8.5 GM MDI IH PRN (19:45)
[2017-08-17] MEDS ORDERED: SITAGLIPTIN PHOSPHATE 25 MG TABLET PO ONE (20:00)
[2017-08-17] MEDS ORDERED: METOPROLOL SUCCINATE 50 MG TAB.SR.24H PO ONE (20:00)
[2017-08-17] MEDS ORDERED: INSULIN LISPRO 100 UNIT/ML 3 ML VIAL SUBCUT ONE (20:00)
[2017-08-17] MEDS ORDERED: PIOGLITAZONE HCL 30 MG TABLET PO ONE (20:00)
[2017-08-17] MEDS ORDERED: GABAPENTIN 300 MG CAPSULE PO ONE (20:00)
[2017-08-17] MEDS ORDERED: GLIPIZIDE XL 5 MG TAB.ER.24 PO ONE (20:00)
[2017-08-17 20:08] LABS: LIPASE 450.4 U/L (23-300)
[2017-08-17] MEDS: NORMAL SALINE 1000 ML 1,000 ML IV PRN (20:20)
[2017-08-17 20:21] LABS: CREATINE KINASE MB 4.38 ng/mL (<4.55); TROPONIN I 0.032 ng/mL
[2017-08-17] MEDS: OXYCODONE HCL IR 5 MG TABLET PO PRN (20:21)
[2017-08-17] MEDS: INSULIN GLARGINE,HUM.REC.ANLOG 1,000 UNIT/10 ML UNIT SUBCUT SCH (20:24)
[2017-08-17 20:25] LABS: FREE T4 (FREE THYROXINE) 1.21 ng/dL (0.78-2.19)
[2017-08-17 20:39] LABS: THYROID STIMULATING HORMONE 0.37 uIU/mL (0.47-4.68)
[2017-08-17] MEDS: HEPARIN SOD (PORCINE) 5,000 UNIT/ML 1 ML SYRINGE SUBCUT SCH (21:20)
[2017-08-17] MEDS: CLOTRIMAZOLE 1% CREAM 15 GM TOP SCH (21:20)
[2017-08-17] MEDS: SODIUM BICARBONATE 650 MG TABLET PO SCH (21:20)
[2017-08-17] MEDS: NYSTATIN TOPICAL POWDER 15 GM TP SCH (21:20)
[2017-08-17] MEDS: HYDROMORPHONE HCL INJ/PF 2 MG/ML AMPULE IV PRN (21:53)
--- NOTE | 2017-08-17 23:11 | EKG REPORT ---
SEVERITY:- ABNORMAL ECG - SINUS TACHYCARDIA PROBABLE INFERIOR INFARCT, AGE INDETERMINATE : Confirmed by: Jaqui Marquis 17-Aug-2017 23:11:04
[2017-08-18] MEDS: GABAPENTIN 300 MG CAPSULE PO SCH ×5 (00:23→23:53)
[2017-08-18 01:59] LABS: CREATINE KINASE MB 4.02 ng/mL (<4.55); TROPONIN I 0.03 ng/mL
[2017-08-18] MEDS: HEPARIN SOD (PORCINE) 5,000 UNIT/ML 1 ML SYRINGE SUBCUT SCH ×3 (05:26→21:33)
[2017-08-18] MEDS: SODIUM BICARBONATE 650 MG TABLET PO SCH ×3 (05:26→21:44)
[2017-08-18] MEDS: OXYCODONE HCL IR 5 MG TABLET PO PRN (05:26)
[2017-08-18] MEDS: HYDROMORPHONE HCL INJ/PF 2 MG/ML AMPULE IV PRN ×5 (06:12→23:53)
[2017-08-18 06:36] LABS: AMORPHOUS SEDIMENT,URINE TRACE /HPF; APPEARANCE,URINE SLIGHTLY-CLOUDY; BILIRUBIN,URINE NEGATIVE (NEGATIVE); COLOR,URINE YELLOW; GLUCOSE, URINE NEGATIVE (NEGATIVE); KETONES,URINE NEGATIVE (NEGATIVE); LEUKOCYTE ESTERASE,URINE LARGE (NEGATIVE); NITRITE,URINE NEGATIVE (NEGATIVE); PROTEIN,URINE NEGATIVE (NEGATIVE); URINE SPECIFIC GRAVITY 1.008; UROBILINOGEN,URINE NEGATIVE mg/dL (<2.0)
[2017-08-18 06:48] LABS: URINE AMPHETAMINES SCREEN NEGATIVE; URINE BARBITURATES SCREEN NEGATIVE; URINE BENZODIAZEPINES SCREEN NEGATIVE; URINE COCAINE SCREEN NEGATIVE; URINE MARIJUANA (THC) SCREEN NEGATIVE; URINE PHENCYCLIDINE SCREEN NEGATIVE
[2017-08-18 08:14] LABS: ABSOLUTE EOSINOPHILS # (AUTO) 0.1 10^3/uL (0.0-0.6); ABSOLUTE LYMPHOCYTES (AUTO) 0.8 10^3/uL (0.5-4.7); ABSOLUTE MONOCYTES (AUTO) 0.8 10^3/uL (0.1-1.4); BASOPHILS % (AUTO) 0.3 % (0-2); EOSINOPHILS % (AUTO) 1.2 % (0-6); HEMATOCRIT 30.6 % (36.0-47.0); HEMOGLOBIN 10.1 g/dL (12.0-15.5); LYMPHOCYTES % (AUTO) 7.2 % (13-45); MEAN CORPUSCULAR HEMOGLOBIN 29.1 pg (27.0-33.4); MEAN CORPUSCULAR HGB CONC 33.2 g/dL (32.0-36.0); MEAN CORPUSCULAR VOLUME 88 fl (80-97); MONOCYTES % (AUTO) 7.2 % (3-13); PLATELET COUNT 190 10^3/uL (150-450); RED BLOOD COUNT 3.48 10^6/uL (3.72-5.28); RED CELL DISTRIBUTION WIDTH 16.7 % (11.5-14.0); SEGMENTED NEUTROPHILS % (AUTO) 84.1 % (42-78); TOTAL CELLS COUNTED % (AUTO) 100 %; WHITE BLOOD COUNT 10.7 10^3/uL (4.0-10.5)
[2017-08-18 08:29] LABS: ALANINE AMINOTRANSFERASE 61 U/L (9-52); ALBUMIN 3.5 g/dL (3.5-5.0); ALKALINE PHOSPHATASE 82 U/L (38-126); ANION GAP 16 (5-19); ASPARTATE AMINO TRANSFERASE 47 U/L (14-36); BILIRUBIN,DIRECT 0.5 mg/dL (0.0-0.4); BILIRUBIN,TOTAL 0.7 mg/dL (0.2-1.3); CALCIUM 9.4 mg/dL (8.4-10.2); CARBON DIOXIDE 15 mmol/L (22-30); CHLORIDE 105 mmol/L (98-107); CHOLESTEROL 150.06 mg/dL (0-200); CREATINE KINASE 135 U/L (30-135); GLUCOSE 158 mg/dL (75-110); PHOSPHORUS 5.4 mg/dL (2.5-4.5); POTASSIUM 5.3 mmol/L (3.6-5.0); SODIUM 135.8 mmol/L (137-145); TOTAL PROTEIN 7.4 g/dL (6.3-8.2); TRIGLYCERIDES 92 mg/dL (<150)
[2017-08-18 08:50] LABS: BLOOD UREA NITROGEN 84 mg/dL (7-20)
[2017-08-18 08:56] LABS: DIRECT LDL 55 mg/dL (<100)
[2017-08-18] MEDS: INSULIN LISPRO 100 UNIT/ML 3 ML VIAL SUBCUT SCH ×3 (09:53→16:33)
[2017-08-18] MEDS: MAGNESIUM OXIDE 400 MG TABLET PO SCH (10:22)
[2017-08-18] MEDS: SITAGLIPTIN PHOSPHATE 25 MG TABLET PO SCH (10:22)
[2017-08-18] MEDS: METOPROLOL SUCCINATE 50 MG TAB.SR.24H PO SCH (10:22)
[2017-08-18] MEDS: PIOGLITAZONE HCL 30 MG TABLET PO SCH (10:22)
[2017-08-18] MEDS: GLIPIZIDE XL 5 MG TAB.ER.24 PO SCH (10:23)
[2017-08-18] MEDS: CLOTRIMAZOLE 1% CREAM 15 GM TOP SCH ×2 (10:23→21:33)
[2017-08-18] MEDS: NYSTATIN TOPICAL POWDER 15 GM TP SCH ×2 (10:23→21:33)
[2017-08-18] MEDS: INSULIN GLARGINE,HUM.REC.ANLOG 1,000 UNIT/10 ML UNIT SUBCUT SCH ×2 (10:28→21:46)
[2017-08-18 11:19] LABS: TROPONIN I 0.022 ng/mL
[2017-08-18 12:52] LABS: URINE METHADONE SCREEN NEGATIVE
--- NOTE | 2017-08-18 14:26 | PDOC H&P ---
History of Present Illness Admission Date/PCP: 08/17/17 16:59 LIAS MATA MD History of Present Illness: RANDEE VELÁSQUEZ is a 61 year old female, she has multiple comorbid conditions , a history of high output ileostomy bag, she was in the office for follow-up on Wednesday, she felt malaise, blood work was done, this all came back with elevated serum creatinine hyperkalemia consistent with acute kidney injury she was called from home to go to emergency room for evaluation. She was seen in the emergency room, blood work was done she was found to have serum creatinine of about 4 hypokalemia and she was acidotic. This has been a persistent ongoing problem, she is admitted for hydration and stabilization. Past Medical History Cardiac Medical History: Reports: Atrial Fibrillation, Coronary Artery Disease, DVT, Myocardial Infarction - 2002, Hyperlipidema, Hypertension Pulmonary Medical History: Reports: Pneumonia - 2006 EENT Medical History: Reports: None Neurological Medical History: Reports: None Endocrine Medical History: Reports: Diabetes Mellitus Type 2 Malignancy Medical History: Reports: Renal (Kidney) Cancer GI Medical History: Reports: Gastroesophageal Reflux Disease, Hiatal Hernia Musculoskeltal Medical History: Reports: Arthritis - Back, Knees Psychiatric Medical History: Reports: None Hematology: Reports: Anemia Past Surgical History Past Surgical History: Reports: Cardiac Catheterization, Colostomy, Coronary Stent, Hysterectomy, Ileostomy, Orthopedic Surgery - L knee replacement, right ankle pin Social History Lives with: Family Smoking Status: Never Smoker Frequency of Alcohol Use: None Hx Recreational Drug Use: No Drugs: None Hx Prescription Drug Abuse: No - Advance Directive Resuscitation Status: Full Code Family History Family History: Hypertension Parental Family History Reviewed: Yes Children Family History Reviewed: Yes Sibling(s) Family History Reviewed.: Yes Medication/Allergy Home Medications: Albuterol Sulfate [Proair HFA] 2 puff IH Q4HP PRN 07/12/17 Betamet Diprop/Prop Gly [Betamethasone Dp Aug 0.05% Cream] 1 applic TOP Q12HP PRN 07/12/17 Clotrimazole [Athlete's Foot] 1 applic TOP Q12HP PRN 07/12/17 Cyclobenzaprine HCl [Flexeril 10 mg Tablet] 10 mg PO TIDP PRN 07/12/17 Exenatide Microspheres [Bydureon Pen] 2 mg SUBCUT KYLE@1000 07/12/17 Gabapentin [Neurontin] 600 mg PO Q6 07/12/17 Glipizide [Glipizide Xl] 5 mg PO DAILY 07/12/17 Insulin Aspart [Novolog Flexpen] 12 unit SUBCUT TIDP PRN 07/12/17 Insulin Glargine,Hum.rec.anlog [Lantus Solostar] 60 units SUBCUT BID 07/12/17 Linagliptin [Tradjenta] 5 mg PO DAILY 07/12/17 Metoprolol Succinate [Toprol Xl 50 mg Tab.sr] 50 mg PO DAILY 07/12/17 Nystatin 1 applic TOP Q12HP PRN 07/12/17 Oxycodone HCl [Oxycodone HCl 10 MG Tablet] 10 mg PO BIDP PRN 07/12/17 Oxymorphone HCl [Opana ER] 10 mg PO Q8 07/12/17 Pioglitazone HCl [Actos] 30 mg PO DAILY 07/12/17 Ramipril [Altace 10 mg Capsule] 10 mg PO DAILY 07/12/17 Sodium Bicarbonate [Sodium Bicarbonate 650 mg Tablet] 650 mg PO TID 07/12/17 Aspirin [Aspirin EC] 81 mg PO DAILY 08/17/17 Allergies/Adverse Reactions: ciprofloxacin [From Cipro] Allergy (Severe, Verified 08/17/17 13:55) Hallucinations morphine [Morphine] Allergy (Unknown, Verified 08/17/17 13:55) Review of Systems Constitutional: PRESENT: anorexia Eyes: ABSENT: visual disturbances Ears: ABSENT: hearing changes Cardiovascular: ABSENT: chest pain, dyspnea on exertion, edema, orthropnea, palpitations Respiratory: ABSENT: cough, hemoptysis Gastrointestinal: PRESENT: nausea Genitourinary: ABSENT: dysuria, hematuria Musculoskeletal: ABSENT: joint swelling Integumentary: ABSENT: rash, wounds Neurological: ABSENT: abnormal gait, abnormal speech, confusion, dizziness, focal weakness, syncope Psychiatric: ABSENT: anxiety, depression, homidical ideation, suicidal ideation Endocrine: ABSENT: cold intolerance, heat intolerance, menstrual abnormalities, polydipsia, polyuria Hematologic/Lymphatic: ABSENT: easy bleeding, easy bruising, lymphadenopathy Physical Exam Vital Signs: Temp Pulse Resp BP Pulse Ox 99.2 F 91 21 H 98/50 L 97 08/18/17 12:00 08/18/17 12:00 08/18/17 12:00 08/18/17 12:00 08/18/17 12:00 Intake & Output 08/17/17 08/18/17 08/19/17 06:59 06:59 06:59 Intake Total 2622 Output Total 2200 Balance 422 Weight 118 kg General appearance: PRESENT: well-developed Head exam: PRESENT: atraumatic, normocephalic Eye exam: PRESENT: conjunctiva pink, EOMI, PERRLA Neck exam: PRESENT: full ROM Respiratory exam: PRESENT: clear to auscultation stephen Cardiovascular exam: PRESENT: RRR, +S1, +S2 GI/Abdominal exam: PRESENT: normal bowel sounds, soft, other - Ileostomy bag in place Rectal exam: PRESENT: deferred Neurological exam: PRESENT: alert, awake, oriented to person, oriented to place , oriented to time, oriented to situation, CN II-XII grossly intact Psychiatric exam: PRESENT: appropriate affect, normal mood Skin exam: PRESENT: dry, intact, warm Results Laboratory Results: 08/18/17 07:50 08/18/17 07:50 08/17/17 08/17/17 08/17/17 19:37 19:37 19:37 WBC RBC Hgb Hct MCV MCH MCHC RDW Plt Count Seg Neutrophils % Lymphocytes % Monocytes % Eosinophils % Basophils % Absolute Neutrophils Absolute Lymphocytes Absolute Monocytes Absolute Eosinophils Absolute Basophils Sodium Potassium Chloride Carbon Dioxide Anion Gap BUN Creatinine Est GFR ( Amer) Est GFR (Non-Af Amer) Glucose Calcium Phosphorus Magnesium Total Bilirubin AST ALT Alkaline Phosphatase Ammonia < 8.7 L Total Protein Albumin Triglycerides Cholesterol LDL Cholesterol Direct VLDL Cholesterol HDL Cholesterol Amylase 215 H Lipase 450.4 H TSH 0.37 L Free T4 1.21 Urine Color Urine Appearance Urine pH Ur Specific [place] Urine Protein Urine Glucose (UA) Urine Ketones Urine Blood Urine Nitrite Ur Leukocyte Esterase Urine WBC (Auto) Urine RBC (Auto) 08/18/17 08/18/17 08/18/17 06:00 07:50 07:50 WBC 10.7 H RBC 3.48 L Hgb 10.1 L Hct 30.6 L MCV 88 MCH 29.1 MCHC 33.2 RDW 16.7 H Plt Count 190 Seg Neutrophils % 84.1 H Lymphocytes % 7.2 L Monocytes % 7.2 Eosinophils % 1.2 Basophils % 0.3 Absolute Neutrophils 9.0 H Absolute Lymphocytes 0.8 Absolute Monocytes 0.8 Absolute Eosinophils 0.1 Absolute Basophils 0.0 Sodium 135.8 L Potassium 5.3 H Chloride 105 Carbon Dioxide 15 L Anion Gap 16 BUN 84 H D Creatinine 3.62 H Est GFR ( Amer) 16 L Est GFR (Non-Af Amer) 13 L Glucose 158 H Calcium 9.4 Phosphorus 5.4 H Magnesium 1.2 L* Total Bilirubin 0.7 AST 47 H ALT 61 H Alkaline Phosphatase 82 Ammonia Total Protein 7.4 Albumin 3.5 Triglycerides 92 Cholesterol 150.06 LDL Cholesterol Direct 55 VLDL Cholesterol 18.0 HDL Cholesterol 44 Amylase Lipase TSH Free T4 Urine Color YELLOW Urine Appearance SLIGHTLY-CLOUDY Urine pH 5.0 Ur Specific [place] 1.008 Urine Protein NEGATIVE Urine Glucose (UA) NEGATIVE Urine Ketones NEGATIVE Urine Blood SMALL H Urine Nitrite NEGATIVE Ur Leukocyte Esterase LARGE H Urine WBC (Auto) 20 Urine RBC (Auto) 12 08/17/17 08/17/17 08/18/17 19:37 19:37 01:22 Creatine Kinase 179 H 153 H CK-MB (CK-2) 4.38 Troponin I 0.032 08/18/17 08/18/17 08/18/17 01:22 07:50 10:29 Creatine Kinase 135 CK-MB (CK-2) 4.02 3.00 Troponin I 0.030 0.022 Assessment & Plan - Diagnosis (1) Acute kidney injury Is this a current diagnosis for this admission?: Yes (2) Hyperkalemia Is this a current diagnosis for this admission?: Yes (3) Type 2 diabetes mellitus Qualifiers: Diabetes mellitus complication status: with neurologic complications Diabetes mellitus complication detail: with polyneuropathy Diabetes mellitus rn long term care insulin use: with [facility] use Qualified Code(s): E11.42 - Type 2 diabetes mellitus with diabetic polyneuropathy; Z79.4 - [facility] (current) use of insulin; Z79.4 - termite renewal inspector (current) use of insulin; Z79.4 - termite renewal inspector ( current) use of insulin; Z79.4 - termite renewal inspector (current) use of insulin Is this a current diagnosis for this admission?: Yes - Plan Summary Plan Summary: She is admitted for management
--- NOTE | 2017-08-18 18:01 | Physician Advisory Note ---
Physician Advisor ProgressNote .: [facility] have [facility] medical record for this patient. Physician Advisor Statement: Please consider documenting, if you agree: 1. "JESUS, likely due to " [intravascular volume depletion?] 2. "Acute hyponatremia, likely due to " [intravascular volume depletion?] 3. "obesity with BMI 49" Thanks! CK
--- NOTE | 2017-08-18 20:33 | PDOC PROGRESS REPORT ---
Subjective Progress Note for:: 08/18/17 Subjective:: She complains of sinus symptoms cough facial pain and headache Reason For Visit: ACUTE KIDNEY INJURY, HYPERKALEMIA Physical Exam Vital Signs: Temp Pulse Resp BP Pulse Ox 99.9 F 112 H 18 112/60 96 08/18/17 16:00 08/18/17 16:00 08/18/17 16:00 08/18/17 16:00 08/18/17 16:00 Intake & Output 08/17/17 08/18/17 08/19/17 06:59 06:59 06:59 Intake Total 2622 2520 Output Total 2200 1890 Balance 422 630 Weight 118 kg General appearance: PRESENT: no acute distress Eye exam: PRESENT: PERRLA Respiratory exam: PRESENT: clear to auscultation stephen Cardiovascular exam: PRESENT: +S1, +S2 Neurological exam: PRESENT: alert Results Laboratory Results: 08/18/17 07:50 08/18/17 07:50 08/17/17 08/18/17 08/18/17 19:37 06:00 07:50 WBC 10.7 H RBC 3.48 L Hgb 10.1 L Hct 30.6 L MCV 88 MCH 29.1 MCHC 33.2 RDW 16.7 H Plt Count 190 Seg Neutrophils % 84.1 H Lymphocytes % 7.2 L Monocytes % 7.2 Eosinophils % 1.2 Basophils % 0.3 Absolute Neutrophils 9.0 H Absolute Lymphocytes 0.8 Absolute Monocytes 0.8 Absolute Eosinophils 0.1 Absolute Basophils 0.0 Sodium Potassium Chloride Carbon Dioxide Anion Gap BUN Creatinine Est GFR ( Amer) Est GFR (Non-Af Amer) Glucose Calcium Phosphorus Magnesium Total Bilirubin AST ALT Alkaline Phosphatase Total Protein Albumin Triglycerides Cholesterol LDL Cholesterol Direct VLDL Cholesterol HDL Cholesterol TSH 0.37 L Free T4 1.21 Urine Color YELLOW Urine Appearance SLIGHTLY-CLOUDY Urine pH 5.0 Ur Specific [place] 1.008 Urine Protein NEGATIVE Urine Glucose (UA) NEGATIVE Urine Ketones NEGATIVE Urine Blood SMALL H Urine Nitrite NEGATIVE Ur Leukocyte Esterase LARGE H Urine WBC (Auto) 20 Urine RBC (Auto) 08/18/17 07:50 WBC RBC Hgb Hct MCV MCH MCHC RDW Plt Count Seg Neutrophils % Lymphocytes % Monocytes % Eosinophils % Basophils % Absolute Neutrophils Absolute Lymphocytes Absolute Monocytes Absolute Eosinophils Absolute Basophils Sodium 135.8 L Potassium 5.3 H Chloride 105 Carbon Dioxide 15 L Anion Gap 16 BUN 84 H D Creatinine 3.62 H Est GFR ( Amer) 16 L Est GFR (Non-Af Amer) 13 L Glucose 158 H Calcium 9.4 Phosphorus 5.4 H Magnesium 1.2 L* Total Bilirubin 0.7 AST 47 H ALT 61 H Alkaline Phosphatase 82 Total Protein 7.4 Albumin 3.5 Triglycerides 92 Cholesterol 150.06 LDL Cholesterol Direct 55 VLDL Cholesterol 18.0 HDL Cholesterol 44 TSH Free T4 Urine Color Urine Appearance Urine pH Ur Specific [place] Urine Protein Urine Glucose (UA) Urine Ketones Urine Blood Urine Nitrite Ur Leukocyte Esterase Urine WBC (Auto) Urine RBC (Auto) 08/17/17 08/17/17 08/18/17 19:37 19:37 01:22 Creatine Kinase 179 H 153 H CK-MB (CK-2) 4.38 Troponin I 0.032 08/18/17 08/18/17 08/18/17 01:22 07:50 10:29 Creatine Kinase 135 CK-MB (CK-2) 4.02 3.00 Troponin I 0.030 0.022 Assessment & Plan - Diagnosis (1) Acute kidney injury Is this a current diagnosis for this admission?: Yes (2) Hyperkalemia Is this a current diagnosis for this admission?: Yes (3) Type 2 diabetes mellitus Qualifiers: Diabetes mellitus complication status: with neurologic complications Diabetes mellitus complication detail: with polyneuropathy Diabetes mellitus retirement insulin use: with retirement use Qualified Code(s): E11.42 - Type 2 diabetes mellitus with diabetic polyneuropathy; Z79.4 - ocean transportation intermediary (current) use of insulin; Z79.4 - ocean transportation intermediary (current) use of insulin; Z79.4 - group home ( current) use of insulin; Z79.4 - group home (current) use of insulin Is this a current diagnosis for this admission?: Yes - Plan Summary Plan Summary: Continue treatment start IV Zithromax
[2017-08-18] MEDS ORDERED: AZITHROMYCIN 500 MG in DEXTROSE 5%-WATER 250 ML IV SCH (22:00)
[2017-08-19] MEDS: HYDROMORPHONE HCL INJ/PF 2 MG/ML AMPULE IV PRN ×5 (04:14→22:35)
[2017-08-19 04:35] LABS: ABSOLUTE EOSINOPHILS # (AUTO) 0.1 10^3/uL (0.0-0.6); ABSOLUTE MONOCYTES (AUTO) 1.4 10^3/uL (0.1-1.4); ABSOLUTE NEUT (AUTO) 10.5 10^3/uL (1.7-8.2); BASOPHILS % (AUTO) 0.2 % (0-2); EOSINOPHILS % (AUTO) 0.5 % (0-6); HEMATOCRIT 28.2 % (36.0-47.0); HEMOGLOBIN 9.5 g/dL (12.0-15.5); LYMPHOCYTES % (AUTO) 7.6 % (13-45); MEAN CORPUSCULAR HEMOGLOBIN 29.3 pg (27.0-33.4); MEAN CORPUSCULAR HGB CONC 33.7 g/dL (32.0-36.0); MEAN CORPUSCULAR VOLUME 87 fl (80-97); MONOCYTES % (AUTO) 11.1 % (3-13); PLATELET COUNT 173 10^3/uL (150-450); RED BLOOD COUNT 3.25 10^6/uL (3.72-5.28); RED CELL DISTRIBUTION WIDTH 16.7 % (11.5-14.0); SEGMENTED NEUTROPHILS % (AUTO) 80.6 % (42-78); TOTAL CELLS COUNTED % (AUTO) 100 %
[2017-08-19 04:51] LABS: ALANINE AMINOTRANSFERASE 54 U/L (9-52); ALBUMIN 3.2 g/dL (3.5-5.0); ALKALINE PHOSPHATASE 73 U/L (38-126); ANION GAP 12 (5-19); ASPARTATE AMINO TRANSFERASE 37 U/L (14-36); BILIRUBIN,DIRECT 0.3 mg/dL (0.0-0.4); BILIRUBIN,TOTAL 0.4 mg/dL (0.2-1.3); BLOOD UREA NITROGEN 65 mg/dL (7-20); CARBON DIOXIDE 17 mmol/L (22-30); CHLORIDE 110 mmol/L (98-107); GLUCOSE 110 mg/dL (75-110); POTASSIUM 5.8 mmol/L (3.6-5.0); TOTAL PROTEIN 6.8 g/dL (6.3-8.2)
[2017-08-19 05:05] LABS: PHOSPHORUS 3.4 mg/dL (2.5-4.5)
[2017-08-19] MEDS: SODIUM BICARBONATE 650 MG TABLET PO SCH ×3 (05:25→21:35)
[2017-08-19] MEDS: MAGNESIUM SULFATE 1 GM/D5W 100 ML IV SCH ×2 (05:25→06:36)
[2017-08-19] MEDS: GABAPENTIN 300 MG CAPSULE PO SCH ×4 (05:25→23:21)
[2017-08-19] MEDS: HEPARIN SOD (PORCINE) 5,000 UNIT/ML 1 ML SYRINGE SUBCUT SCH ×3 (05:26→21:25)
[2017-08-19] MEDS: INSULIN LISPRO 100 UNIT/ML 3 ML VIAL SUBCUT SCH ×3 (08:29→17:51)
[2017-08-19] MEDS: NYSTATIN TOPICAL POWDER 15 GM TP SCH ×2 (10:54→21:25)
[2017-08-19] MEDS: CLOTRIMAZOLE 1% CREAM 15 GM TOP SCH ×2 (10:54→21:25)
[2017-08-19] MEDS: MAGNESIUM OXIDE 400 MG TABLET PO SCH (10:55)
[2017-08-19] MEDS: PIOGLITAZONE HCL 30 MG TABLET PO SCH (10:55)
[2017-08-19] MEDS: NORMAL SALINE 1000 ML 1,000 ML IV PRN ×2 (10:55→17:51)
[2017-08-19] MEDS: GLIPIZIDE XL 5 MG TAB.ER.24 PO SCH (10:55)
[2017-08-19] MEDS: SITAGLIPTIN PHOSPHATE 25 MG TABLET PO SCH (10:55)
[2017-08-19] MEDS: METOPROLOL SUCCINATE 50 MG TAB.SR.24H PO SCH (10:55)
[2017-08-19] MEDS: INSULIN GLARGINE,HUM.REC.ANLOG 1,000 UNIT/10 ML UNIT SUBCUT SCH ×2 (11:10→22:47)
[2017-08-19] MEDS ORDERED: LEVOFLOXACIN 750 MG/D5W RTU 750 MG/150 ML RTUPB IV SCH (18:00)
--- NOTE | 2017-08-19 21:56 | PDOC PROGRESS REPORT ---
Subjective Progress Note for:: 08/19/17 Subjective:: Patient was seen by the bedside, she complains of cough Reason For Visit: ACUTE KIDNEY INJURY, HYPERKALEMIA Physical Exam Vital Signs: Temp Pulse Resp BP Pulse Ox 99.9 F 112 H 18 119/53 L 100 08/19/17 16:00 08/19/17 19:00 08/19/17 16:00 08/19/17 16:00 08/19/17 16:00 Intake & Output 08/18/17 08/19/17 08/20/17 06:59 06:59 06:59 Intake Total 2622 5220 1527 Output Total 2200 5090 900 Balance 422 130 627 Weight 118 kg 119.2 kg Head exam: PRESENT: atraumatic, normocephalic Eye exam: PRESENT: conjunctiva pink, EOMI, PERRLA Ear exam: PRESENT: normal external ear exam Neck exam: PRESENT: full ROM Respiratory exam: PRESENT: clear to auscultation stephen Cardiovascular exam: PRESENT: RRR, +S1, +S2 Vascular exam: PRESENT: normal capillary refill GI/Abdominal exam: PRESENT: normal bowel sounds, soft Rectal exam: PRESENT: deferred Neurological exam: PRESENT: alert Psychiatric exam: PRESENT: appropriate affect, normal mood Skin exam: PRESENT: dry, intact, warm. ABSENT: cyanosis, rash Results Laboratory Results: 08/19/17 04:03 08/19/17 04:03 08/19/17 08/19/17 04:03 04:03 WBC 13.0 H RBC 3.25 L Hgb 9.5 L Hct 28.2 L MCV 87 MCH 29.3 MCHC 33.7 RDW 16.7 H Plt Count 173 Seg Neutrophils % 80.6 H Lymphocytes % 7.6 L Monocytes % 11.1 Eosinophils % 0.5 Basophils % 0.2 Absolute Neutrophils 10.5 H Absolute Lymphocytes 1.0 Absolute Monocytes 1.4 Absolute Eosinophils 0.1 Absolute Basophils 0.0 Sodium 139.0 Potassium 5.8 H Chloride 110 H Carbon Dioxide 17 L Anion Gap 12 BUN 65 H Creatinine 2.52 H Est GFR ( Amer) 24 L Est GFR (Non-Af Amer) 19 L Glucose 110 Calcium 9.0 Phosphorus 3.4 D Magnesium 1.1 L* Total Bilirubin 0.4 AST 37 H ALT 54 H Alkaline Phosphatase 73 Total Protein 6.8 Albumin 3.2 L 08/17/17 08/17/17 08/18/17 19:37 19:37 01:22 Creatine Kinase 179 H 153 H CK-MB (CK-2) 4.38 Troponin I 0.032 08/18/17 08/18/17 08/18/17 01:22 07:50 10:29 Creatine Kinase 135 CK-MB (CK-2) 4.02 3.00 Troponin I 0.030 0.022 Assessment & Plan - Diagnosis (1) Acute kidney injury Is this a current diagnosis for this admission?: Yes (2) Hyperkalemia Is this a current diagnosis for this admission?: Yes (3) Type 2 diabetes mellitus Qualifiers: Diabetes mellitus complication status: with neurologic complications Diabetes mellitus complication detail: with polyneuropathy Diabetes mellitus alf insulin use: with alf use Qualified Code(s): E11.42 - Type 2 diabetes mellitus with diabetic polyneuropathy; Z79.4 - prison (current) use of insulin; Z79.4 - prison (current) use of insulin; Z79.4 - prison ( current) use of insulin; Z79.4 - prison (current) use of insulin Is this a current diagnosis for this admission?: Yes
--- NOTE | 2017-08-19 22:01 | EKG REPORT ---
SEVERITY:- ABNORMAL ECG - SINUS TACHYCARDIA PROBABLE INFERIOR INFARCT, AGE INDETERMINATE : Confirmed by: Jaqui Marquis 19-Aug-2017 22:00:46
[2017-08-20] MEDS: GABAPENTIN 300 MG CAPSULE PO SCH ×4 (05:14→23:16)
[2017-08-20] MEDS: SODIUM BICARBONATE 650 MG TABLET PO SCH ×3 (05:14→22:18)
[2017-08-20] MEDS: HEPARIN SOD (PORCINE) 5,000 UNIT/ML 1 ML SYRINGE SUBCUT SCH ×3 (05:14→22:18)
[2017-08-20] MEDS: HYDROMORPHONE HCL INJ/PF 2 MG/ML AMPULE IV PRN ×5 (06:39→23:00)
[2017-08-20 06:45] LABS: ABSOLUTE EOSINOPHILS # (AUTO) 0.2 10^3/uL (0.0-0.6); ABSOLUTE LYMPHOCYTES (AUTO) 1.7 10^3/uL (0.5-4.7); ABSOLUTE MONOCYTES (AUTO) 1.5 10^3/uL (0.1-1.4); ABSOLUTE NEUT (AUTO) 8.5 10^3/uL (1.7-8.2); BASOPHILS % (AUTO) 0.3 % (0-2); EOSINOPHILS % (AUTO) 1.5 % (0-6); HEMATOCRIT 30.4 % (36.0-47.0); LYMPHOCYTES % (AUTO) 13.8 % (13-45); MEAN CORPUSCULAR HEMOGLOBIN 29.2 pg (27.0-33.4); MEAN CORPUSCULAR HGB CONC 32.9 g/dL (32.0-36.0); MEAN CORPUSCULAR VOLUME 89 fl (80-97); MONOCYTES % (AUTO) 12.8 % (3-13); PLATELET COUNT 167 10^3/uL (150-450); RED BLOOD COUNT 3.42 10^6/uL (3.72-5.28); RED CELL DISTRIBUTION WIDTH 16.4 % (11.5-14.0); SEGMENTED NEUTROPHILS % (AUTO) 71.6 % (42-78); TOTAL CELLS COUNTED % (AUTO) 100 %; WHITE BLOOD COUNT 11.9 10^3/uL (4.0-10.5)
[2017-08-20 07:01] LABS: ALANINE AMINOTRANSFERASE 43 U/L (9-52); ALBUMIN 3.2 g/dL (3.5-5.0); ALKALINE PHOSPHATASE 76 U/L (38-126); ANION GAP 10 (5-19); ASPARTATE AMINO TRANSFERASE 31 U/L (14-36); BILIRUBIN,DIRECT 0.3 mg/dL (0.0-0.4); BILIRUBIN,TOTAL 0.4 mg/dL (0.2-1.3); BLOOD UREA NITROGEN 38 mg/dL (7-20); CARBON DIOXIDE 18 mmol/L (22-30); CHLORIDE 113 mmol/L (98-107); GLUCOSE 42 mg/dL (75-110); POTASSIUM 5.1 mmol/L (3.6-5.0); SODIUM 141.4 mmol/L (137-145); TOTAL PROTEIN 6.5 g/dL (6.3-8.2)
[2017-08-20] MEDS: INSULIN LISPRO 100 UNIT/ML 3 ML VIAL SUBCUT SCH ×3 (08:12→18:20)
[2017-08-20] MEDS: INSULIN GLARGINE,HUM.REC.ANLOG 1,000 UNIT/10 ML UNIT SUBCUT SCH ×2 (09:17→22:19)
[2017-08-20] MEDS: GLIPIZIDE XL 5 MG TAB.ER.24 PO SCH (09:17)
[2017-08-20] MEDS: NORMAL SALINE 1000 ML 1,000 ML IV PRN ×2 (09:17→20:27)
[2017-08-20] MEDS: MAGNESIUM OXIDE 400 MG TABLET PO SCH (09:17)
[2017-08-20] MEDS: NYSTATIN TOPICAL POWDER 15 GM TP SCH ×2 (09:18→22:18)
[2017-08-20] MEDS: PIOGLITAZONE HCL 30 MG TABLET PO SCH (09:18)
[2017-08-20] MEDS: CLOTRIMAZOLE 1% CREAM 15 GM TOP SCH ×2 (09:18→22:19)
[2017-08-20] MEDS: SITAGLIPTIN PHOSPHATE 25 MG TABLET PO SCH (09:18)
[2017-08-20] MEDS: METOPROLOL SUCCINATE 50 MG TAB.SR.24H PO SCH (09:18)
--- NOTE | 2017-08-20 20:54 | PDOC PROGRESS REPORT ---
Subjective Progress Note for:: 08/20/17 Subjective:: Patient is improving on present regimen, she will stay the weekend Reason For Visit: ACUTE KIDNEY INJURY, HYPERKALEMIA Physical Exam Vital Signs: Temp Pulse Resp BP Pulse Ox 99.4 F 109 H 20 111/61 97 08/20/17 15:45 08/20/17 19:00 08/20/17 15:45 08/20/17 15:45 08/20/17 15:45 Intake & Output 08/19/17 08/20/17 08/21/17 06:59 06:59 06:59 Intake Total 5220 3327 2520 Output Total 5090 2900 2150 Balance 130 427 370 Weight 119.2 kg 122.4 kg General appearance: PRESENT: no acute distress Head exam: PRESENT: atraumatic, normocephalic Eye exam: ABSENT: scleral icterus Ear exam: PRESENT: normal external ear exam Mouth exam: PRESENT: moist, tongue midline Neck exam: PRESENT: full ROM Respiratory exam: PRESENT: clear to auscultation stephen Cardiovascular exam: PRESENT: RRR, +S1, +S2 Vascular exam: PRESENT: normal capillary refill GI/Abdominal exam: PRESENT: normal bowel sounds, soft Rectal exam: PRESENT: deferred Neurological exam: PRESENT: alert, awake, oriented to person, oriented to place , oriented to time, oriented to situation, CN II-XII grossly intact. ABSENT: motor sensory deficit Psychiatric exam: PRESENT: appropriate affect, normal mood. ABSENT: homicidal ideation, suicidal ideation Skin exam: PRESENT: dry, intact, warm. ABSENT: cyanosis, rash Results Laboratory Results: 08/20/17 05:48 08/20/17 05:48 08/20/17 08/20/17 05:48 05:48 WBC 11.9 H RBC 3.42 L Hgb 10.0 L Hct 30.4 L MCV 89 MCH 29.2 MCHC 32.9 RDW 16.4 H Plt Count 167 Seg Neutrophils % 71.6 Lymphocytes % 13.8 Monocytes % 12.8 Eosinophils % 1.5 Basophils % 0.3 Absolute Neutrophils 8.5 H Absolute Lymphocytes 1.7 Absolute Monocytes 1.5 H Absolute Eosinophils 0.2 Absolute Basophils 0.0 Sodium 141.4 Potassium 5.1 H Chloride 113 H Carbon Dioxide 18 L Anion Gap 10 BUN 38 H Creatinine 1.95 H Est GFR ( Amer) 32 L Est GFR (Non-Af Amer) 26 L Glucose 42 L Calcium 9.0 Phosphorus 3.0 Magnesium 1.4 L Total Bilirubin 0.4 AST 31 ALT 43 Alkaline Phosphatase 76 Total Protein 6.5 Albumin 3.2 L 08/18/17 06:00 Clean Catch Midstream Urine Culture - Final Enterococcus Faecalis(Group D) Enterobacter Cloacae 08/17/17 08/17/17 08/18/17 19:37 19:37 01:22 Creatine Kinase 179 H 153 H CK-MB (CK-2) 4.38 Troponin I 0.032 08/18/17 08/18/17 08/18/17 01:22 07:50 10:29 Creatine Kinase 135 CK-MB (CK-2) 4.02 3.00 Troponin I 0.030 0.022 Assessment & Plan - Diagnosis (1) Acute kidney injury Is this a current diagnosis for this admission?: Yes (2) Hyperkalemia Is this a current diagnosis for this admission?: Yes (3) Type 2 diabetes mellitus Qualifiers: Diabetes mellitus complication status: with neurologic complications Diabetes mellitus complication detail: with polyneuropathy Diabetes mellitus predatory animal exterminator insulin use: with residential use Qualified Code(s): E11.42 - Type 2 diabetes mellitus with diabetic polyneuropathy; Z79.4 - shelter (current) use of insulin; Z79.4 - predatory animal exterminator (current) use of insulin; Z79.4 - predatory animal exterminator ( current) use of insulin; Z79.4 - predatory animal exterminator (current) use of insulin Is this a current diagnosis for this admission?: Yes
[2017-08-21] MEDS: HYDROMORPHONE HCL INJ/PF 2 MG/ML AMPULE IV PRN ×5 (03:19→20:26)
[2017-08-21] MEDS: NORMAL SALINE 1000 ML 1,000 ML IV PRN (03:19)
[2017-08-21] MEDS: GABAPENTIN 300 MG CAPSULE PO SCH ×4 (05:48→23:11)
[2017-08-21] MEDS: SODIUM BICARBONATE 650 MG TABLET PO SCH ×3 (05:48→22:03)
[2017-08-21] MEDS: HEPARIN SOD (PORCINE) 5,000 UNIT/ML 1 ML SYRINGE SUBCUT SCH ×3 (05:48→22:03)
[2017-08-21] MEDS: INSULIN LISPRO 100 UNIT/ML 3 ML VIAL SUBCUT SCH ×3 (08:14→16:37)
[2017-08-21] MEDS: PIOGLITAZONE HCL 30 MG TABLET PO SCH (09:09)
[2017-08-21] MEDS: GLIPIZIDE XL 5 MG TAB.ER.24 PO SCH (09:09)
[2017-08-21] MEDS: METOPROLOL SUCCINATE 50 MG TAB.SR.24H PO SCH (09:09)
[2017-08-21] MEDS: SITAGLIPTIN PHOSPHATE 25 MG TABLET PO SCH (09:09)
[2017-08-21] MEDS: MAGNESIUM OXIDE 400 MG TABLET PO SCH (09:09)
[2017-08-21] MEDS: CLOTRIMAZOLE 1% CREAM 15 GM TOP SCH ×2 (09:10→21:55)
[2017-08-21] MEDS: NYSTATIN TOPICAL POWDER 15 GM TP SCH ×2 (09:10→22:03)
[2017-08-21] MEDS: INSULIN GLARGINE,HUM.REC.ANLOG 1,000 UNIT/10 ML UNIT SUBCUT SCH ×2 (09:10→21:55)
--- NOTE | 2017-08-21 10:32 | PDOC PROGRESS REPORT ---
Subjective Progress Note for:: 08/21/17 Subjective:: Patient was admitted for the acute kidney failure currently doing well She has denied any chest pain denied any shortness of the breath denied any abdominal pain Reason For Visit: ACUTE KIDNEY INJURY, HYPERKALEMIA Physical Exam Vital Signs: Temp Pulse Resp BP Pulse Ox 98.5 F 99 20 114/60 98 08/21/17 07:15 08/21/17 07:15 08/21/17 07:15 08/21/17 07:15 08/21/17 07:15 Intake & Output 08/20/17 08/21/17 08/22/17 06:59 06:59 06:59 Intake Total 3327 4820 Output Total 2900 4330 Balance 427 490 Weight 122.4 kg 122.4 kg General appearance: PRESENT: no acute distress, well-developed, well-nourished Head exam: PRESENT: atraumatic, normocephalic Eye exam: PRESENT: conjunctiva pink, EOMI, PERRLA. ABSENT: scleral icterus Ear exam: PRESENT: normal external ear exam Mouth exam: PRESENT: moist, tongue midline Neck exam: PRESENT: full ROM. ABSENT: carotid bruit, JVD, lymphadenopathy, thyromegaly Respiratory exam: PRESENT: clear to auscultation stephen Cardiovascular exam: PRESENT: RRR. ABSENT: diastolic murmur, rubs, systolic murmur Pulses: PRESENT: normal dorsalis pedis pul, +2 pedal pulses bilateral Vascular exam: PRESENT: normal capillary refill GI/Abdominal exam: PRESENT: normal bowel sounds, soft. ABSENT: distended, guarding, mass, organolmegaly, rebound, tenderness Rectal exam: PRESENT: deferred Extremities exam: ABSENT: pedal edema Neurological exam: PRESENT: alert, awake, oriented to person, oriented to place , oriented to time, oriented to situation, CN II-XII grossly intact. ABSENT: motor sensory deficit Psychiatric exam: PRESENT: appropriate affect, normal mood. ABSENT: homicidal ideation, suicidal ideation Skin exam: PRESENT: dry, intact, warm. ABSENT: cyanosis, rash Results Laboratory Results: 08/20/17 05:48 08/20/17 05:48 08/18/17 06:00 Clean Catch Midstream Urine Culture - Final Enterococcus Faecalis(Group D) Enterobacter Cloacae 08/17/17 08/17/17 08/18/17 19:37 19:37 01:22 Creatine Kinase 179 H 153 H CK-MB (CK-2) 4.38 Troponin I 0.032 08/18/17 08/18/17 08/18/17 01:22 07:50 10:29 Creatine Kinase 135 CK-MB (CK-2) 4.02 3.00 Troponin I 0.030 0.022 Assessment & Plan - Diagnosis (1) Acute kidney injury Is this a current diagnosis for this admission?: Yes Plan: Continues IV fluid (2) Dehydration Is this a current diagnosis for this admission?: Yes Plan: As above (3) Hyperkalemia Is this a current diagnosis for this admission?: Yes Plan: Check the Chem-7 (4) Anemia Qualifiers: Anemia type: unspecified type Qualified Code(s): D64.9 - Anemia, unspecified Is this a current diagnosis for this admission?: Yes (5) Coronary artery disease Qualifiers: Coronary Disease-Associated Artery/Lesion type: unspecified vessel or lesion type Is this a current diagnosis for this admission?: Yes (6) Diabetes mellitus Qualifiers: Diabetes mellitus type: type 2 Diabetes mellitus complication status: with neurologic complications Diabetes mellitus complication detail: with polyneuropathy Diabetes mellitus group home insulin use: with group home use Qualified Code(s): E11.42 - Type 2 diabetes mellitus with diabetic polyneuropathy; Z79.4 - inpatient services rn (current) use of insulin; Z79.4 - inpatient services rn ( current) use of insulin; Z79.4 - nursing home (current) use of insulin; Z79.4 - inpatient services rn (current) use of insulin Is this a current diagnosis for this admission?: Yes - Time Time Spent with patient: 15-24 minutes Medications reviewed and adjusted accordingly: Yes Anticipated discharge: Home Within: Other - Inpatient Certification Medical Necessity: Need For IV Fluids, Need for IV Antibiotics 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
[2017-08-21] MEDS: LEVOFLOXACIN 750 MG TABLET PO SCH (17:05)
[2017-08-22] MEDS: HYDROMORPHONE HCL INJ/PF 2 MG/ML AMPULE IV PRN ×6 (00:41→21:20)
[2017-08-22] MEDS: NORMAL SALINE 1000 ML 1,000 ML IV PRN ×2 (00:41→07:44)
[2017-08-22 05:44] LABS: ABSOLUTE EOSINOPHILS # (AUTO) 0.4 10^3/uL (0.0-0.6); ABSOLUTE LYMPHOCYTES (AUTO) 0.9 10^3/uL (0.5-4.7); ABSOLUTE MONOCYTES (AUTO) 0.6 10^3/uL (0.1-1.4); ABSOLUTE NEUT (AUTO) 4.6 10^3/uL (1.7-8.2); BASOPHILS % (AUTO) 0.4 % (0-2); EOSINOPHILS % (AUTO) 5.7 % (0-6); HEMATOCRIT 27.8 % (36.0-47.0); HEMOGLOBIN 9.2 g/dL (12.0-15.5); LYMPHOCYTES % (AUTO) 13.8 % (13-45); MEAN CORPUSCULAR HEMOGLOBIN 29.5 pg (27.0-33.4); MEAN CORPUSCULAR HGB CONC 33.2 g/dL (32.0-36.0); MEAN CORPUSCULAR VOLUME 89 fl (80-97); MONOCYTES % (AUTO) 8.8 % (3-13); PLATELET COUNT 160 10^3/uL (150-450); RED BLOOD COUNT 3.13 10^6/uL (3.72-5.28); RED CELL DISTRIBUTION WIDTH 16.7 % (11.5-14.0); SEGMENTED NEUTROPHILS % (AUTO) 71.3 % (42-78); TOTAL CELLS COUNTED % (AUTO) 100 %; WHITE BLOOD COUNT 6.4 10^3/uL (4.0-10.5)
[2017-08-22 06:04] LABS: ANION GAP 9 (5-19); BLOOD UREA NITROGEN 18 mg/dL (7-20); CALCIUM 8.2 mg/dL (8.4-10.2); CARBON DIOXIDE 18 mmol/L (22-30); CHLORIDE 118 mmol/L (98-107); GLUCOSE 77 mg/dL (75-110); POTASSIUM 5.5 mmol/L (3.6-5.0); SODIUM 144.7 mmol/L (137-145)
[2017-08-22] MEDS: GABAPENTIN 300 MG CAPSULE PO SCH ×4 (06:31→23:20)
[2017-08-22] MEDS: SODIUM BICARBONATE 650 MG TABLET PO SCH ×3 (06:32→21:20)
[2017-08-22] MEDS: HEPARIN SOD (PORCINE) 5,000 UNIT/ML 1 ML SYRINGE SUBCUT SCH ×3 (06:32→21:20)
[2017-08-22] MEDS ORDERED: SODIUM POLYSTYRENE SULFONATE 15 GM/60 ML PO ONE (06:46)
[2017-08-22] MEDS: INSULIN LISPRO 100 UNIT/ML 3 ML VIAL SUBCUT SCH ×3 (07:45→16:28)
[2017-08-22] MEDS: GLIPIZIDE XL 5 MG TAB.ER.24 PO SCH (09:44)
[2017-08-22] MEDS: MAGNESIUM OXIDE 400 MG TABLET PO SCH (09:44)
[2017-08-22] MEDS: PIOGLITAZONE HCL 30 MG TABLET PO SCH (09:44)
[2017-08-22] MEDS: METOPROLOL SUCCINATE 50 MG TAB.SR.24H PO SCH (09:44)
[2017-08-22] MEDS: SITAGLIPTIN PHOSPHATE 25 MG TABLET PO SCH (09:44)
[2017-08-22] MEDS: CLOTRIMAZOLE 1% CREAM 15 GM TOP SCH ×2 (09:45→21:21)
[2017-08-22] MEDS: NYSTATIN TOPICAL POWDER 15 GM TP SCH ×2 (09:45→21:20)
[2017-08-22] MEDS: INSULIN GLARGINE,HUM.REC.ANLOG 1,000 UNIT/10 ML UNIT SUBCUT SCH (09:45)
[2017-08-22] MEDS ORDERED: (PENDING PHARMACY ID) (Exenatide Microspheres [Bydureon Pen] 2 MG) SUBCUT SCH (10:00)
[2017-08-22] MEDS ORDERED: DEXTROSE 5%-1/2 NORMAL SALINE 1,000 ML IV PRN (11:01)
--- NOTE | 2017-08-22 11:06 | PDOC PROGRESS REPORT ---
Subjective Progress Note for:: 08/22/17 Subjective:: Patient is currently doing fair. Patient's blood sugar is running low given the nurses to hold all the insulin yesterday but patients getting on oral hypoglycemic medications Since output is still high up to 1500 cc plus Patient seen by the [facility] for that and according to the patient she had a some test done to reverse the ileostomy but not sure about the result Try the Imodium and Lomotil in the past and still not helping to reduce the output Reason For Visit: ACUTE KIDNEY INJURY, HYPERKALEMIA Physical Exam Vital Signs: Temp Pulse Resp BP Pulse Ox 98.5 F 99 18 119/66 98 08/22/17 07:26 08/22/17 07:26 08/22/17 07:26 08/22/17 07:26 08/22/17 07:26 Intake & Output 08/21/17 08/22/17 08/23/17 06:59 06:59 06:59 Intake Total 4820 5442 Output Total 4330 3600 Balance 490 1842 Weight 122.4 kg 124 kg General appearance: PRESENT: no acute distress, well-developed, well-nourished Head exam: PRESENT: atraumatic, normocephalic Eye exam: PRESENT: conjunctiva pink, EOMI, PERRLA. ABSENT: scleral icterus Ear exam: PRESENT: normal external ear exam Mouth exam: PRESENT: moist, tongue midline Neck exam: PRESENT: full ROM. ABSENT: carotid bruit, JVD, lymphadenopathy, thyromegaly Respiratory exam: PRESENT: clear to auscultation stephen Cardiovascular exam: PRESENT: RRR. ABSENT: diastolic murmur, rubs, systolic murmur Pulses: PRESENT: normal dorsalis pedis pul, +2 pedal pulses bilateral Vascular exam: PRESENT: normal capillary refill GI/Abdominal exam: PRESENT: normal bowel sounds, soft. ABSENT: distended, guarding, mass, organolmegaly, rebound, tenderness Additonal comments: The ostomy bag is present Rectal exam: PRESENT: deferred Neurological exam: PRESENT: alert, awake, oriented to person, oriented to place , oriented to time, oriented to situation, CN II-XII grossly intact. ABSENT: motor sensory deficit Psychiatric exam: PRESENT: appropriate affect, normal mood. ABSENT: homicidal ideation, suicidal ideation Skin exam: PRESENT: dry, intact, warm. ABSENT: cyanosis, rash Results Laboratory Results: 08/22/17 05:26 08/22/17 05:26 08/22/17 08/22/17 05:26 05:26 WBC 6.4 RBC 3.13 L Hgb 9.2 L Hct 27.8 L MCV 89 MCH 29.5 MCHC 33.2 RDW 16.7 H Plt Count 160 Seg Neutrophils % 71.3 Lymphocytes % 13.8 Monocytes % 8.8 Eosinophils % 5.7 Basophils % 0.4 Absolute Neutrophils 4.6 Absolute Lymphocytes 0.9 Absolute Monocytes 0.6 Absolute Eosinophils 0.4 Absolute Basophils 0.0 Sodium 144.7 Potassium 5.5 H Chloride 118 H Carbon Dioxide 18 L Anion Gap 9 BUN 18 Creatinine 1.64 H Est GFR ( Amer) 39 L Est GFR (Non-Af Amer) 32 L Glucose 77 Calcium 8.2 L 08/17/17 08/17/17 08/18/17 19:37 19:37 01:22 Creatine Kinase 179 H 153 H CK-MB (CK-2) 4.38 Troponin I 0.032 08/18/17 08/18/17 08/18/17 01:22 07:50 10:29 Creatine Kinase 135 CK-MB (CK-2) 4.02 3.00 Troponin I 0.030 0.022 Assessment & Plan - Diagnosis (1) Acute kidney injury Is this a current diagnosis for this admission?: Yes Plan: We will give her some Kayexalate for the elevated potassiums in the low potassium diet (2) Dehydration Is this a current diagnosis for this admission?: Yes Plan: As above (3) Hyperkalemia Is this a current diagnosis for this admission?: Yes Plan: Him some Kayexalate (4) Anemia Qualifiers: Anemia type: unspecified type Qualified Code(s): D64.9 - Anemia, unspecified Is this a current diagnosis for this admission?: Yes (5) Coronary artery disease Qualifiers: Coronary Disease-Associated Artery/Lesion type: unspecified vessel or lesion type Is this a current diagnosis for this admission?: Yes (6) Diabetes mellitus Qualifiers: Diabetes mellitus type: type 2 Diabetes mellitus complication status: with neurologic complications Diabetes mellitus complication detail: with polyneuropathy Diabetes mellitus emt intermediate insulin use: with detention use Qualified Code(s): E11.42 - Type 2 diabetes mellitus with diabetic polyneuropathy; Z79.4 - emt intermediate (current) use of insulin; Z79.4 - nursing home ( current) use of insulin; Z79.4 - emt intermediate (current) use of insulin; Z79.4 - nursing home (current) use of insulin Is this a current diagnosis for this admission?: Yes Plan: Concerning hypoglycemia will just DC on oral hypoglycemic medications hold the insulin and just cover with a sliding scale - Time Time Spent with patient: 15-24 minutes Medications reviewed and adjusted accordingly: Yes Anticipated discharge: Other Within: Other - Inpatient Certification Medical Necessity: Need Close Monitoring Due to Risk of Patient Decompensation, Need For IV Fluids Post Hospital Care: D/C Training And Development Assistant Documentation - Plan Summary Plan Summary: Continues to current medication
[2017-08-23] MEDS: HYDROMORPHONE HCL INJ/PF 2 MG/ML AMPULE IV PRN ×5 (03:25→20:24)
[2017-08-23] MEDS: HEPARIN SOD (PORCINE) 5,000 UNIT/ML 1 ML SYRINGE SUBCUT SCH ×3 (06:29→22:15)
[2017-08-23] MEDS: SODIUM BICARBONATE 650 MG TABLET PO SCH ×3 (06:29→22:14)
[2017-08-23] MEDS: GABAPENTIN 300 MG CAPSULE PO SCH ×3 (06:29→18:18)
[2017-08-23] MEDS: INSULIN LISPRO 100 UNIT/ML 3 ML VIAL SUBCUT SCH ×3 (07:53→18:17)
[2017-08-23 09:43] LABS: ABSOLUTE EOSINOPHILS # (AUTO) 0.4 10^3/uL (0.0-0.6); ABSOLUTE MONOCYTES (AUTO) 0.6 10^3/uL (0.1-1.4); ABSOLUTE NEUT (AUTO) 4.6 10^3/uL (1.7-8.2); BASOPHILS % (AUTO) 0.4 % (0-2); EOSINOPHILS % (AUTO) 5.7 % (0-6); HEMATOCRIT 27.8 % (36.0-47.0); HEMOGLOBIN 9.4 g/dL (12.0-15.5); LYMPHOCYTES % (AUTO) 14.8 % (13-45); MEAN CORPUSCULAR HEMOGLOBIN 29.8 pg (27.0-33.4); MEAN CORPUSCULAR HGB CONC 33.7 g/dL (32.0-36.0); MEAN CORPUSCULAR VOLUME 88 fl (80-97); MONOCYTES % (AUTO) 9.4 % (3-13); PLATELET COUNT 167 10^3/uL (150-450); RED BLOOD COUNT 3.14 10^6/uL (3.72-5.28); RED CELL DISTRIBUTION WIDTH 17.1 % (11.5-14.0); SEGMENTED NEUTROPHILS % (AUTO) 69.7 % (42-78); TOTAL CELLS COUNTED % (AUTO) 100 %; WHITE BLOOD COUNT 6.6 10^3/uL (4.0-10.5)
[2017-08-23 10:21] LABS: ANION GAP 7 (5-19); BLOOD UREA NITROGEN 12 mg/dL (7-20); CALCIUM 8.4 mg/dL (8.4-10.2); CARBON DIOXIDE 21 mmol/L (22-30); CHLORIDE 114 mmol/L (98-107); GLUCOSE 71 mg/dL (75-110); POTASSIUM 4.9 mmol/L (3.6-5.0); SODIUM 142.4 mmol/L (137-145)
[2017-08-23] MEDS: METOPROLOL SUCCINATE 50 MG TAB.SR.24H PO SCH (10:42)
[2017-08-23] MEDS: NYSTATIN TOPICAL POWDER 15 GM TP SCH ×2 (10:42→22:15)
[2017-08-23] MEDS: MAGNESIUM OXIDE 400 MG TABLET PO SCH (10:42)
[2017-08-23] MEDS: CLOTRIMAZOLE 1% CREAM 15 GM TOP SCH ×2 (10:43)
[2017-08-23] MEDS: NORMAL SALINE 1000 ML 1,000 ML IV PRN ×2 (12:16→20:49)
[2017-08-23] MEDS: LEVOFLOXACIN 750 MG TABLET PO SCH (18:19)
--- NOTE | 2017-08-23 20:22 | PDOC PROGRESS REPORT ---
Subjective Progress Note for:: 08/23/17 Subjective:: Patient was seen by the bedside the kidney function is improving, she will continue present treatment she will be hopefully be discharged home the next 2 days Reason For Visit: ACUTE KIDNEY INJURY, HYPERKALEMIA Physical Exam Vital Signs: Temp Pulse Resp BP Pulse Ox 98.0 F 100 18 125/82 100 08/23/17 16:00 08/23/17 16:00 08/23/17 16:00 08/23/17 16:00 08/23/17 16:00 Intake & Output 08/22/17 08/23/17 08/24/17 06:59 06:59 06:59 Intake Total 5442 5378 760 Output Total 3600 4300 1800 Balance 1842 1078 -1040 Weight 124 kg 124 kg General appearance: PRESENT: no acute distress, well-developed, well-nourished Head exam: PRESENT: atraumatic, normocephalic Eye exam: PRESENT: conjunctiva pink, EOMI, PERRLA Ear exam: PRESENT: normal external ear exam Mouth exam: PRESENT: moist, tongue midline Neck exam: PRESENT: full ROM Respiratory exam: PRESENT: clear to auscultation stephen Cardiovascular exam: PRESENT: RRR, +S1, +S2 Pulses: PRESENT: normal dorsalis pedis pul, +2 pedal pulses bilateral Vascular exam: PRESENT: normal capillary refill GI/Abdominal exam: PRESENT: normal bowel sounds, soft Rectal exam: PRESENT: deferred Neurological exam: PRESENT: alert, awake, oriented to person, oriented to place , oriented to time, oriented to situation, CN II-XII grossly intact Psychiatric exam: PRESENT: appropriate affect, normal mood Skin exam: PRESENT: dry, intact, warm. ABSENT: cyanosis, rash Results Laboratory Results: 08/23/17 09:10 08/23/17 09:10 08/23/17 08/23/17 09:10 09:10 WBC 6.6 RBC 3.14 L Hgb 9.4 L Hct 27.8 L MCV 88 MCH 29.8 MCHC 33.7 RDW 17.1 H Plt Count 167 Seg Neutrophils % 69.7 Lymphocytes % 14.8 Monocytes % 9.4 Eosinophils % 5.7 Basophils % 0.4 Absolute Neutrophils 4.6 Absolute Lymphocytes 1.0 Absolute Monocytes 0.6 Absolute Eosinophils 0.4 Absolute Basophils 0.0 Sodium 142.4 Potassium 4.9 Chloride 114 H Carbon Dioxide 21 L Anion Gap 7 BUN 12 Creatinine 1.52 H Est GFR ( Amer) 42 L Est GFR (Non-Af Amer) 35 L Glucose 71 L Calcium 8.4 08/17/17 08/17/17 08/18/17 19:37 19:37 01:22 Creatine Kinase 179 H 153 H CK-MB (CK-2) 4.38 Troponin I 0.032 08/18/17 08/18/17 08/18/17 01:22 07:50 10:29 Creatine Kinase 135 CK-MB (CK-2) 4.02 3.00 Troponin I 0.030 0.022 Assessment & Plan - Diagnosis (1) Acute kidney injury Is this a current diagnosis for this admission?: Yes (2) Hyperkalemia Is this a current diagnosis for this admission?: Yes (3) Type 2 diabetes mellitus Qualifiers: Diabetes mellitus complication status: with neurologic complications Diabetes mellitus complication detail: with polyneuropathy Diabetes mellitus long-term insulin use: with manager intermediate use Qualified Code(s): E11.42 - Type 2 diabetes mellitus with diabetic polyneuropathy; Z79.4 - truck terminal manager (current) use of insulin; Z79.4 - truck terminal manager (current) use of insulin; Z79.4 - snf ( current) use of insulin; Z79.4 - truck terminal manager (current) use of insulin Is this a current diagnosis for this admission?: Yes - Plan Summary Plan Summary: She will continue present treatment
[2017-08-23] MEDS ORDERED: HALOPERIDOL LACTATE INJ 5 MG/1 ML VIAL IV ONE (23:45)
[2017-08-24] MEDS: HYDROMORPHONE HCL INJ/PF 2 MG/ML AMPULE IV PRN ×6 (00:28→21:34)
[2017-08-24] MEDS: GABAPENTIN 300 MG CAPSULE PO SCH ×5 (00:28→23:18)
[2017-08-24] MEDS: HEPARIN SOD (PORCINE) 5,000 UNIT/ML 1 ML SYRINGE SUBCUT SCH ×3 (05:07→21:34)
[2017-08-24] MEDS: SODIUM BICARBONATE 650 MG TABLET PO SCH ×3 (05:08→21:34)
[2017-08-24] MEDS: NORMAL SALINE 1000 ML 1,000 ML IV PRN ×2 (05:08→13:33)
[2017-08-24 07:30] LABS: ANION GAP 10 (5-19); BLOOD UREA NITROGEN 11 mg/dL (7-20); CALCIUM 8.1 mg/dL (8.4-10.2); CARBON DIOXIDE 18 mmol/L (22-30); CHLORIDE 113 mmol/L (98-107); GLUCOSE 71 mg/dL (75-110); POTASSIUM 4.7 mmol/L (3.6-5.0); SODIUM 141.1 mmol/L (137-145)
[2017-08-24] MEDS: INSULIN LISPRO 100 UNIT/ML 3 ML VIAL SUBCUT SCH ×3 (08:44→17:31)
[2017-08-24] MEDS: NYSTATIN TOPICAL POWDER 15 GM TP SCH (09:00)
[2017-08-24] MEDS: METOPROLOL SUCCINATE 50 MG TAB.SR.24H PO SCH (09:00)
[2017-08-24] MEDS: MAGNESIUM OXIDE 400 MG TABLET PO SCH (09:00)
[2017-08-24] MEDS: CLOTRIMAZOLE 1% CREAM 15 GM TOP SCH (09:01)
--- NOTE | 2017-08-24 20:42 | PDOC PROGRESS REPORT ---
Subjective Progress Note for:: 08/24/17 Subjective:: Patient is seen by the bedside, she will continue present IV fluid therapy Reason For Visit: ACUTE KIDNEY INJURY, HYPERKALEMIA Physical Exam Vital Signs: Temp Pulse Resp BP Pulse Ox 98.5 F 101 H 16 136/77 H 96 08/24/17 11:21 08/24/17 19:00 08/24/17 15:13 08/24/17 15:13 08/24/17 15:13 Intake & Output 08/23/17 08/24/17 08/25/17 06:59 06:59 06:59 Intake Total 5378 3332 540 Output Total 4300 4250 650 Balance 1078 -918 -110 Weight 124 kg 125.9 kg General appearance: PRESENT: no acute distress Eye exam: PRESENT: PERRLA. ABSENT: scleral icterus Ear exam: PRESENT: normal external ear exam Mouth exam: PRESENT: moist, tongue midline Neck exam: PRESENT: full ROM Respiratory exam: PRESENT: clear to auscultation stephen Cardiovascular exam: PRESENT: RRR, +S1, +S2 Vascular exam: PRESENT: normal capillary refill GI/Abdominal exam: PRESENT: normal bowel sounds, soft Rectal exam: PRESENT: deferred Neurological exam: PRESENT: alert. ABSENT: motor sensory deficit Skin exam: PRESENT: dry, intact, warm. ABSENT: cyanosis, rash Results Laboratory Results: 08/23/17 09:10 08/24/17 05:59 08/24/17 05:59 Sodium 141.1 Potassium 4.7 Chloride 113 H Carbon Dioxide 18 L Anion Gap 10 BUN 11 Creatinine 1.52 H Est GFR ( Amer) 42 L Est GFR (Non-Af Amer) 35 L Glucose 71 L Calcium 8.1 L 08/17/17 08/17/17 08/18/17 19:37 19:37 01:22 Creatine Kinase 179 H 153 H CK-MB (CK-2) 4.38 Troponin I 0.032 08/18/17 08/18/17 08/18/17 01:22 07:50 10:29 Creatine Kinase 135 CK-MB (CK-2) 4.02 3.00 Troponin I 0.030 0.022 Assessment & Plan - Diagnosis (1) Acute kidney injury Is this a current diagnosis for this admission?: Yes (2) Hyperkalemia Is this a current diagnosis for this admission?: Yes (3) Type 2 diabetes mellitus Qualifiers: Diabetes mellitus complication status: with neurologic complications Diabetes mellitus complication detail: with polyneuropathy Diabetes mellitus rat exterminator insulin use: with rat exterminator use Qualified Code(s): E11.42 - Type 2 diabetes mellitus with diabetic polyneuropathy; Z79.4 - intermediate project manager (current) use of insulin; Z79.4 - [facility] (current) use of insulin; Z79.4 - intermediate project manager ( current) use of insulin; Z79.4 - [facility] (current) use of insulin Is this a current diagnosis for this admission?: Yes
[2017-08-24] MEDS ORDERED: OXYCODONE HCL IR 5 MG TABLET PO PRN (20:53)
[2017-08-25] MEDS: HYDROMORPHONE HCL INJ/PF 2 MG/ML AMPULE IV PRN ×4 (01:39→13:30)
[2017-08-25] MEDS: SODIUM BICARBONATE 650 MG TABLET PO SCH ×2 (05:19→13:30)
[2017-08-25] MEDS: HEPARIN SOD (PORCINE) 5,000 UNIT/ML 1 ML SYRINGE SUBCUT SCH ×2 (05:19→13:37)
[2017-08-25] MEDS: GABAPENTIN 300 MG CAPSULE PO SCH ×2 (05:19→13:30)
[2017-08-25] MEDS: INSULIN LISPRO 100 UNIT/ML 3 ML VIAL SUBCUT SCH ×2 (08:30→12:43)
[2017-08-25] MEDS: MAGNESIUM OXIDE 400 MG TABLET PO SCH (09:35)
[2017-08-25] MEDS: METOPROLOL SUCCINATE 50 MG TAB.SR.24H PO SCH (09:35)
[2017-08-25 13:47] LABS: ABSOLUTE BASOPHILS # (AUTO) 0.1 10^3/uL (0.0-0.2); ABSOLUTE EOSINOPHILS # (AUTO) 0.3 10^3/uL (0.0-0.6); ABSOLUTE LYMPHOCYTES (AUTO) 0.8 10^3/uL (0.5-4.7); ABSOLUTE MONOCYTES (AUTO) 0.6 10^3/uL (0.1-1.4); ABSOLUTE NEUT (AUTO) 3.9 10^3/uL (1.7-8.2); BASOPHILS % (AUTO) 1.5 % (0-2); EOSINOPHILS % (AUTO) 5.1 % (0-6); HEMATOCRIT 27.9 % (36.0-47.0); HEMOGLOBIN 9.2 g/dL (12.0-15.5); LYMPHOCYTES % (AUTO) 14.4 % (13-45); MEAN CORPUSCULAR HEMOGLOBIN 29.6 pg (27.0-33.4); MEAN CORPUSCULAR HGB CONC 33.1 g/dL (32.0-36.0); MEAN CORPUSCULAR VOLUME 89 fl (80-97); MONOCYTES % (AUTO) 9.9 % (3-13); PLATELET COUNT 244 10^3/uL (150-450); RED BLOOD COUNT 3.13 10^6/uL (3.72-5.28); RED CELL DISTRIBUTION WIDTH 17.1 % (11.5-14.0); SEGMENTED NEUTROPHILS % (AUTO) 69.1 % (42-78); TOTAL CELLS COUNTED % (AUTO) 100 %; WHITE BLOOD COUNT 5.7 10^3/uL (4.0-10.5)
[2017-08-25 13:54] VITALS: BP 145/76
--- NOTE | 2017-08-25 13:54 | PDOC DISCHARGE SUMMARY ---
General - Admit/Disc Date/PCP Admission Date/Primary Care Provider: 08/17/17 16:59 LISA MATA MD Discharge Date: 08/25/17 - Discharge Diagnosis (1) Acute kidney injury Is this a current diagnosis for this admission?: Yes (2) Hyperkalemia Is this a current diagnosis for this admission?: Yes (3) Type 2 diabetes mellitus Is this a current diagnosis for this admission?: Yes - Additional Information Resuscitation Status: Full Code Home Medications: Albuterol Sulfate [Proair HFA] 2 puff IH Q4HP PRN 07/12/17 Betamet Diprop/Prop Gly [Betamethasone Dp Aug 0.05% Cream] 1 applic TOP Q12HP PRN 07/12/17 Clotrimazole [Athlete's Foot] 1 applic TOP Q12HP PRN 07/12/17 Cyclobenzaprine HCl [Flexeril 10 mg Tablet] 10 mg PO TIDP PRN 07/12/17 Exenatide Microspheres [Bydureon Pen] 2 mg SUBCUT KYLE@1000 07/12/17 Gabapentin [Neurontin] 600 mg PO Q6 07/12/17 Glipizide [Glipizide Xl] 5 mg PO DAILY 07/12/17 Insulin Aspart [Novolog Flexpen] 12 unit SUBCUT TIDP PRN 07/12/17 Insulin Glargine,Hum.rec.anlog [Lantus Solostar] 60 units SUBCUT BID 07/12/17 Linagliptin [Tradjenta] 5 mg PO DAILY 07/12/17 Metoprolol Succinate [Toprol Xl 50 mg Tab.sr] 50 mg PO DAILY 07/12/17 Nystatin 1 applic TOP Q12HP PRN 07/12/17 Oxycodone HCl [Oxycodone HCl 10 MG Tablet] 10 mg PO BIDP PRN 07/12/17 Oxymorphone HCl [Opana ER] 10 mg PO Q8 07/12/17 Pioglitazone HCl [Actos] 30 mg PO DAILY 07/12/17 Ramipril [Altace 10 mg Capsule] 10 mg PO DAILY 07/12/17 Sodium Bicarbonate [Sodium Bicarbonate 650 mg Tablet] 650 mg PO TID 07/12/17 Aspirin [Aspirin EC] 81 mg PO DAILY 08/17/17 History of Present Illness History of Present Illness: RANDEE VELÁSQUEZ is a 61 year old female, she has multiple comorbid conditions , a history of high output ileostomy bag, she was in the office for follow-up on Wednesday, she felt malaise, blood work was done, this all came back with elevated serum creatinine hyperkalemia consistent with acute kidney injury she was called from home to go to emergency room for evaluation. She was seen in the emergency room, blood work was done she was found to have serum creatinine of about 4 hypokalemia and she was acidotic. This has been a persistent ongoing problem, she is admitted for hydration and stabilization. Hospital Course Hospital Course: She was admitted for the management of acute kidney injury, hyperkalemia in the setting of high output ileostomy bag. She was treated with IV fluid normal saline, hospital course was complicated with acute bronchitis/URI, she was treated with azithromycin. She is total colectomy with ileostomy bag complicated with episodic electrolyte derangement due to high output states. She was treated successfully with IV fluid, she was taken off ARB/ACEI on this admission. Physical Exam Vital Signs: Temp Pulse Resp BP Pulse Ox 99.1 F 108 H 20 135/71 H 100 08/25/17 07:54 08/25/17 07:54 08/25/17 07:54 08/25/17 07:54 08/25/17 07:54 Intake & Output 08/24/17 08/25/17 08/26/17 06:59 06:59 06:59 Intake Total 3332 2545 Output Total 4250 3900 Balance -918 -1355 Weight 125.9 kg 127.2 kg General appearance: PRESENT: no acute distress, well-developed, well-nourished Head exam: PRESENT: atraumatic, normocephalic Eye exam: PRESENT: conjunctiva pink, EOMI, PERRLA Ear exam: PRESENT: normal external ear exam Mouth exam: PRESENT: moist, tongue midline Neck exam: PRESENT: full ROM Respiratory exam: PRESENT: clear to auscultation stephen Cardiovascular exam: PRESENT: RRR, +S1, +S2 Vascular exam: PRESENT: normal capillary refill GI/Abdominal exam: PRESENT: normal bowel sounds, soft Rectal exam: PRESENT: deferred Neurological exam: PRESENT: alert, awake, oriented to person, oriented to place , oriented to time, oriented to situation, CN II-XII grossly intact Psychiatric exam: PRESENT: appropriate affect, normal mood Skin exam: PRESENT: dry, intact, warm Results Laboratory Results: 08/25/17 13:12 08/25/17 13:12 08/25/17 08/25/17 13:12 13:12 WBC 5.7 RBC 3.13 L Hgb 9.2 L Hct 27.9 L MCV 89 MCH 29.6 MCHC 33.1 RDW 17.1 H Plt Count 244 Seg Neutrophils % 69.1 Lymphocytes % 14.4 Monocytes % 9.9 Eosinophils % 5.1 Basophils % 1.5 Absolute Neutrophils 3.9 Absolute Lymphocytes 0.8 Absolute Monocytes 0.6 Absolute Eosinophils 0.3 Absolute Basophils 0.1 Sodium Cancelled Potassium Cancelled Chloride Cancelled Carbon Dioxide Cancelled Anion Gap Cancelled BUN Cancelled Creatinine Cancelled Est GFR ( Amer) Cancelled Est GFR (Non-Af Amer) Cancelled Glucose Cancelled Calcium Cancelled Total Bilirubin Cancelled AST Cancelled ALT Cancelled Alkaline Phosphatase Cancelled Total Protein Cancelled Albumin Cancelled 08/17/17 08/17/17 08/18/17 19:37 19:37 01:22 Creatine Kinase 179 H 153 H CK-MB (CK-2) 4.38 Troponin I 0.032 08/18/17 08/18/17 08/18/17 01:22 07:50 10:29 Creatine Kinase 135 CK-MB (CK-2) 4.02 3.00 Troponin I 0.030 0.022
== END 2017-08-25 14:29 | disposition home or self-care (01) | DRG 683 ==
LOC: ER 13:33 → EH 16:59 → 5 18:35
PROVIDERS: ADMIT Internal Medicine; ATTEND Internal Medicine
DX: N17.9 Acute kidney failure, unspecified (principal); Z68.41 Body mass index [BMI] 40.0-44.9, adult; E86.0 Dehydration; E87.5 Hyperkalemia; J20.9 Acute bronchitis, unspecified; J06.9 Acute upper respiratory infection, unspecified; D64.9 Anemia, unspecified; I48.91 Unspecified atrial fibrillation; I25.10 Atherosclerotic heart disease of native coronary artery without angina pectoris; E11.42 Type 2 diabetes mellitus with diabetic polyneuropathy; I10 Essential (primary) hypertension; E78.5 Hyperlipidemia, unspecified; K21.9 Gastro-esophageal reflux disease without esophagitis; K44.9 Diaphragmatic hernia without obstruction or gangrene; M19.90 Unspecified osteoarthritis, unspecified site; B95.2 Enterococcus as the cause of diseases classified elsewhere; Z93.2 Ileostomy status; E66.3 Overweight; Z79.4 Long term (current) use of insulin; Z79.82 Long term (current) use of aspirin; Z79.899 Other long term (current) drug therapy; Z85.528 Personal history of other malignant neoplasm of kidney; Z90.710 Acquired absence of both cervix and uterus; Z95.5 Presence of coronary angioplasty implant and graft; I25.2 Old myocardial infarction; Z96.652 Presence of left artificial knee joint; Z88.1 Allergy status to other antibiotic agents; Z88.8 Allergy status to other drugs, medicaments and biological substances; Z90.49 Acquired absence of other specified parts of digestive tract; Z86.718 Personal history of other venous thrombosis and embolism; Z82.49 Family history of ischemic heart disease and other diseases of the circulatory system
CPT/HCPCS: 36415; 80048; 80053; 80061; 80076; 80307; 81001; 82140; 82150; 82550; 82553; 82962; 83036; 83690; 83735; 84100; 84439; 84443; 84484; 85025; 85730; 87040; 87086; 87088; 87186; 93005; 93010; 99291; G8978-GP; G8979-GP; G8980-GP; J0456; J0610; J1170; J1644; J1815; J1956; J3475; J3490; J7030; J7060

== ENCOUNTER 2017-09-20 14:16 | Inpatient (IN) | payer MEDICARE, MEDICAID ==
[2017-09-20] MEDS ORDERED: NORMAL SALINE 1000 ML 1,000 ML IV ONE (17:29)
--- NOTE | 2017-09-20 17:31 | ER Document Report ---
ED Medical Screen (RME) - General Chief Complaint: Urinary Problem Stated Complaint: DIRECT ADMIT-URINARY RETENTION Mode of Arrival: Ambulatory Information source: Patient Notes: Patient was referred from her primary care doctor's office. Patient states that she has not been urinating. She states she has no urge to urinate she just is not urinating as frequently. She states that her primary care physician admitted her to the hospital however at this time there are no beds so patient's care will begin in the emergency department. She states that she was found by laboratory values to have "kidney problems" per her primary care physician. Blood pressure was noted to be low at triage. TRAVEL OUTSIDE OF THE [place] IN LAST 30 DAYS: No - Related Data Allergies/Adverse Reactions: ciprofloxacin [From Cipro] Allergy (Severe, Verified 08/17/17 13:55) Hallucinations morphine [Morphine] Allergy (Unknown, Verified 08/17/17 13:55) Past Medical History - Social History Chew tobacco use (# tins/day): No Drug Abuse: None - Past Medical History Cardiac Medical History: Reports: Hx Atrial Fibrillation, Hx Coronary Artery Disease, Hx DVT, Hx Heart Attack - 2002, Hx Hypercholesterolemia, Hx Hypertension Pulmonary Medical History: Reports: Hx Pneumonia - 2006 Endocrine Medical History: Reports: Hx Diabetes Mellitus Type 2 Renal/ Medical History: Reports: Hx Ovarian Cysts, Hx Renal Insufficiency. Denies: Hx Peritoneal Dialysis Malignancy Medical History: Reports: Hx Renal (Kidney) Cancer GI Medical History: Reports: Hx Gastroesophageal Reflux Disease, Hx Hiatal Hernia, Hx Irritable Bowel, Hx Ulcer Musculoskeltal Medical History: Reports Hx Arthritis - Back, Knees Psychiatric Medical History: Denies: Hx Depression Traumatic Medical History: Reports: Hx Fractures Past Surgical History: Reports: Hx Abdominal Surgery - COLOSTOMY. INTESTINAL RUPTURE, Hx Bowel Surgery - COLECTOMY/ileostomy, Hx Cardiac Catheterization, Hx Cardiac Surgery - STENTS, Hx Colostomy, Hx Coronary Stent, Hx Hysterectomy, Hx Ileostomy, Hx Orthopedic Surgery - L knee replacement, right ankle pin - Immunizations Immunizations up to date: Yes Hx Diphtheria, Pertussis, Tetanus Vaccination: No History of Influenza Vaccine for 06/2017 - 11/2017 Season: Yes Influenza Administration Date for 06/2017 - 11/2017 Season: 06/06/17 Physical Exam - Vital signs Vitals: Temp Pulse Resp BP Pulse Ox 98.8 F 115 H 22 H 81/31 L 96 09/20/17 17:14 09/20/17 17:14 09/20/17 17:14 09/20/17 17:14 09/20/17 17:14 Course - Vital Signs Vital signs: Temp Pulse Resp BP Pulse Ox 98.8 F 115 H 22 H 84/48 L 96 09/20/17 17:14 09/20/17 17:14 09/20/17 17:14 09/20/17 17:19 09/20/17 17:14
[2017-09-20 18:29] LABS: ABSOLUTE EOSINOPHILS # (AUTO) 0.1 10^3/uL (0.0-0.6); ABSOLUTE LYMPHOCYTES (AUTO) 2.7 10^3/uL (0.5-4.7); ABSOLUTE MONOCYTES (AUTO) 0.8 10^3/uL (0.1-1.4); ABSOLUTE NEUT (AUTO) 11.2 10^3/uL (1.7-8.2); BASOPHILS % (AUTO) 0.2 % (0-2); EOSINOPHILS % (AUTO) 0.7 % (0-6); HEMATOCRIT 34.6 % (36.0-47.0); HEMOGLOBIN 11.4 g/dL (12.0-15.5); LYMPHOCYTES % (AUTO) 18.1 % (13-45); MEAN CORPUSCULAR HEMOGLOBIN 28.9 pg (27.0-33.4); MEAN CORPUSCULAR HGB CONC 33.1 g/dL (32.0-36.0); MEAN CORPUSCULAR VOLUME 87 fl (80-97); MONOCYTES % (AUTO) 5.6 % (3-13); PLATELET COUNT 235 10^3/uL (150-450); RED BLOOD COUNT 3.95 10^6/uL (3.72-5.28); RED CELL DISTRIBUTION WIDTH 15.7 % (11.5-14.0); SEGMENTED NEUTROPHILS % (AUTO) 75.4 % (42-78); TOTAL CELLS COUNTED % (AUTO) 100 %; WHITE BLOOD COUNT 14.9 10^3/uL (4.0-10.5)
[2017-09-20 18:30] LABS: VENOUS BLOOD BASE EXCESS -10.2 mmol/L; VENOUS BLOOD HCO3 16.3 mmol/L (20-32); VENOUS BLOOD PH 7.25 (7.30-7.42)
[2017-09-20 18:37] LABS: INTERNATIONAL RATION (INR) 1.02; PROTHROMBIN TIME 14.1 SEC (11.4-15.4)
[2017-09-20 21:25] LABS: ALANINE AMINOTRANSFERASE 52 U/L (9-52); ALBUMIN 4.3 g/dL (3.5-5.0); ALKALINE PHOSPHATASE 97 U/L (38-126); ASPARTATE AMINO TRANSFERASE 60 U/L (14-36); BILIRUBIN,DIRECT 0.5 mg/dL (0.0-0.4); BILIRUBIN,TOTAL 0.7 mg/dL (0.2-1.3); BLOOD UREA NITROGEN 92 mg/dL (7-20); CALCIUM 9.3 mg/dL (8.4-10.2); GLUCOSE 68 mg/dL (75-110)
[2017-09-20 21:27] LABS: AMORPHOUS SEDIMENT,URINE TRACE /HPF; APPEARANCE,URINE CLOUDY; BILIRUBIN,URINE NEGATIVE (NEGATIVE); COLOR,URINE DARK YELLOW; GLUCOSE, URINE 50 mg/dL (NEGATIVE); KETONES,URINE NEGATIVE (NEGATIVE); LEUKOCYTE ESTERASE,URINE LARGE (NEGATIVE); NITRITE,URINE NEGATIVE (NEGATIVE); PROTEIN,URINE 30 mg/dL (NEGATIVE); URINE SPECIFIC GRAVITY 1.018; UROBILINOGEN,URINE NEGATIVE mg/dL (<2.0)
[2017-09-20] MEDS ORDERED: NORMAL SALINE 1000 ML 1,000 ML IV PRN ×3 (21:39→21:52)
[2017-09-20 21:42] LABS: ANION GAP 22 (5-19)
[2017-09-20 21:43] LABS: CARBON DIOXIDE 14 mmol/L (22-30); CHLORIDE 89 mmol/L (98-107); SODIUM 124.9 mmol/L (137-145)
[2017-09-20 21:45] LABS: POTASSIUM 6.2 mmol/L (3.6-5.0)
[2017-09-20] MEDS ORDERED: CALCIUM GLUCONATE 1000 MG/10 ML INJ IV ONE (21:47)
[2017-09-20] MEDS ORDERED: DEXTROSE 50%-WATER 25 GM/50 ML DISP.SYRIN IV ONE (21:48)
[2017-09-20] MEDS ORDERED: INSULIN REG, HUMAN 100 UNIT/ML 3 ML VIAL (PYX) IV ONE (21:49)
[2017-09-20] MEDS ORDERED: DEXTROSE 50%-WATER 25 GM/50 ML DISP.SYRIN IV PRN ×2 (21:51)
[2017-09-20] MEDS ORDERED: DEXTROSE 40% GEL 15 GM TUBE PO PRN ×2 (21:51)
[2017-09-20] MEDS ORDERED: GLUCAGON,HUMAN RECOMB 1 MG INJ IM PRN (21:51)
[2017-09-20] MEDS ORDERED: HYDROMORPHONE HCL INJ/PF 2 MG/ML AMPULE IV ONE (22:00)
--- NOTE | 2017-09-20 22:24 | RADIOLOGY REPORT (SQ) ---
EXAM DESCRIPTION: CT ABD/PELVIS NO ORAL OR IV COMPLETED DATE/TIME: 09/20/2017 10:12 pm REASON FOR STUDY: inability to urinate COMPARISON: 03/02/2015. TECHNIQUE: CT scan of the abdomen and pelvis performed without intravenous or oral contrast. Images reviewed with lung, soft tissue, and bone windows. Reconstructed coronal and sagittal MPR images revi ewed. All images stored on PACS. All CT scanners at this facility use dose modulation, iterative reconstruction, and/or weight based d osing when appropriate to reduce radiation dose to as low as reasonably achievable (ALARA). [facility]: Dose Right [facility]: CareDose [facility]: Dose Right [facility]: Teradose 4D [facility]: Smart Mailjet RADIATION DOSE: CT Rad equipment meets quality standard of care and radiation dose reduction techniq ues were employed. CTDIvol: 26.1 mGy. DLP: 1295 mGy-cm.mGy. LIMITATIONS: None. FINDINGS: LOWER CHEST: No significant findings. No nodules or infiltrates. NON-CONTRASTED LIVER, SPLEEN, ADRENALS: Evaluation limited by lack of IV contrast. No identified sign ificant masses. PANCREAS: No masses. No peripancreatic inflammatory changes. GALLBLADDER: Small gallstones. No inflammatory changes to suggest cholecystitis. RIGHT KIDNEY AND URETER: No suspicious masses. Assessment limited by lack of IV contrast. No signif icant calcifications. No hydronephrosis or hydroureter. LEFT KIDNEY AND URETER: No suspicious masses. Assessment limited by lack of IV contrast. No signifi cant calcifications. No hydronephrosis or hydroureter. AORTA AND RETROPERITONEUM: No aneurysm. No retroperitoneal masses or adenopathy. BOWEL AND PERITONEAL CAVITY: Surgical changes with ostomy on the right side. No obvious masses or in flammatory changes. No free fluid. APPENDIX: Surgically absent. PELVIS, BLADDER, AND ABDOMINAL WALL:No abnormal masses. No free fluid. Catheter in the bladder. BONES: No significant findings. OTHER: Irregular partially calcified mass in the subcutaneous fatty tissues of the back, unchanged. No other significant finding. IMPRESSION: 1. GALLSTONES. 2. STABLE SURGICAL CHANGES WITH OSTOMY ON THE RIGHT SIDE OF THE ABDOMEN. 3. OTHER CHRONIC FINDINGS ABOVE. NO OTHER SIGNIFICANT OR ACUTE PROCESS IN THE ABDOMEN OR PELVIS. COMMENT: Quality ID # [id number]: Final reports with documentation of one or more dose reduction techniques (e.g., Automated exposure control, adjustment of the mA and/or kV according to patient size, use of iterative reconstruction technique) TECHNICAL DOCUMENTATION: JOB ID: [id number] [employer]- All Rights Reserved
[2017-09-20] MEDS: SODIUM BICARBONATE 650 MG TABLET PO SCH (22:50)
--- NOTE | 2017-09-20 23:27 | RADIOLOGY REPORT (SQ) ---
EXAM DESCRIPTION: CHEST SINGLE VIEW CLINICAL HISTORY: 61 years, Female, SOB COMPARISON: July 11, 2017. FINDINGS: Normal lung volume, clear parenchyma, normal cardiac silhouette, and intact bony thorax. IMPRESSION: No acute cardiopulmonary findings. 2011 [employer]- All Rights Reserved
[2017-09-20 23:47] LABS: ANION GAP 19 (5-19); BLOOD UREA NITROGEN 94 mg/dL (7-20); CARBON DIOXIDE 13 mmol/L (22-30); CHLORIDE 86 mmol/L (98-107); GLUCOSE 290 mg/dL (75-110)
[2017-09-20 23:54] LABS: SODIUM 118.4 mmol/L (137-145)
[2017-09-20 23:55] LABS: POTASSIUM 6.4 mmol/L (3.6-5.0)
[2017-09-21 03:26] LABS: ANION GAP 18 (5-19); BLOOD UREA NITROGEN 92 mg/dL (7-20); CALCIUM 9.3 mg/dL (8.4-10.2); CARBON DIOXIDE 18 mmol/L (22-30); CHLORIDE 91 mmol/L (98-107); GLUCOSE 96 mg/dL (75-110); POTASSIUM 5.7 mmol/L (3.6-5.0); SODIUM 126.6 mmol/L (137-145)
[2017-09-21] MEDS ORDERED: HYDROMORPHONE HCL INJ/PF 2 MG/ML AMPULE IV SCH (06:00)
--- NOTE | 2017-09-21 09:50 | EKG REPORT ---
SEVERITY:- ABNORMAL ECG - SINUS TACHYCARDIA INFERIOR INFARCT, AGE INDETERMINATE CONSIDER ANTERIOR INFARCT : Confirmed by: Jaqui Marquis 21-Sep-2017 09:49:09
[2017-09-21] MEDS ORDERED: NORMAL SALINE 1000 ML 1,000 ML IV PRN (12:31)
[2017-09-21] MEDS: SODIUM BICARBONATE 650 MG TABLET PO SCH ×2 (13:29→17:47)
[2017-09-21] MEDS: HYDROMORPHONE HCL INJ/PF 2 MG/ML AMPULE IV PRN ×2 (13:29→19:31)
[2017-09-21] MEDS: NORMAL SALINE 1000 ML 1,000 ML IV PRN (13:30)
[2017-09-21] MEDS: OXYCODONE HCL IR 5 MG TABLET PO PRN (15:53)
[2017-09-21 17:14] LABS: ALANINE AMINOTRANSFERASE 45 U/L (9-52); ALBUMIN 3.5 g/dL (3.5-5.0); ALKALINE PHOSPHATASE 76 U/L (38-126); ANION GAP 16 (5-19); ASPARTATE AMINO TRANSFERASE 58 U/L (14-36); BILIRUBIN,DIRECT 0.5 mg/dL (0.0-0.4); BILIRUBIN,TOTAL 0.6 mg/dL (0.2-1.3); BLOOD UREA NITROGEN 91 mg/dL (7-20); CALCIUM 8.5 mg/dL (8.4-10.2); CARBON DIOXIDE 13 mmol/L (22-30); CHLORIDE 95 mmol/L (98-107); GLUCOSE 77 mg/dL (75-110); SODIUM 123.7 mmol/L (137-145); TOTAL PROTEIN 6.9 g/dL (6.3-8.2)
[2017-09-21 17:18] LABS: POTASSIUM 6.3 mmol/L (3.6-5.0)
[2017-09-21] MEDS ORDERED: DEXTROSE 50%-WATER 25 GM/50 ML DISP.SYRIN IV ONE (17:52)
[2017-09-21] MEDS ORDERED: CALCIUM GLUCONATE 1000 MG/10 ML INJ IV ONE (17:52)
[2017-09-21] MEDS ORDERED: INSULIN REG, HUMAN 100 UNIT/ML 3 ML VIAL (PYX) IV ONE (17:53)
[2017-09-21] MEDS ORDERED: DEXTROSE 5%-WATER 1000 ML 1,000 ML with SODIUM BICARBONATE 100 MEQ IV PRN ×2 (19:00)
[2017-09-21] MEDS ORDERED: CEFTRIAXONE 1 GM/D5W RTU 1 GM/50 ML RTUPB IV SCH (19:00)
[2017-09-21] MEDS: CEFTRIAXONE SODIUM 1,000 MG in DEXTROSE 5%-WATER 50 ML IV SCH (19:30)
[2017-09-21] MEDS: DEXTROSE 5%-WATER 1000 ML 1,000 ML with SODIUM BICARBONATE 100 MEQ IV PRN ×2 (19:34)
[2017-09-21 21:19] LABS: ALANINE AMINOTRANSFERASE 44 U/L (9-52); ALBUMIN 3.6 g/dL (3.5-5.0); ALKALINE PHOSPHATASE 81 U/L (38-126); ANION GAP 16 (5-19); ASPARTATE AMINO TRANSFERASE 64 U/L (14-36); BILIRUBIN,DIRECT 0.5 mg/dL (0.0-0.4); BILIRUBIN,TOTAL 0.5 mg/dL (0.2-1.3); BLOOD UREA NITROGEN 89 mg/dL (7-20); CARBON DIOXIDE 15 mmol/L (22-30); CHLORIDE 93 mmol/L (98-107); GLUCOSE 98 mg/dL (75-110); POTASSIUM 5.5 mmol/L (3.6-5.0); SODIUM 123.5 mmol/L (137-145); TOTAL PROTEIN 7.2 g/dL (6.3-8.2)
--- NOTE | 2017-09-21 21:22 | PDOC H&P ---
History of Present Illness Admission Date/PCP: 09/20/17 14:24 LISA MATA MD History of Present Illness: RANDEE VELÁSQUEZ is a 61 year old female, She came to the office for evaluation of diminished urinary output she has a high output ileostomy bag, she has had multiple admissions for the management of acute kidney injury due to dehydration ,with this background in mind she was admitted directly from the office into the hospital for evaluation. There was no bed available she has to go to the emergency room to be admitted the blood work showed acute kidney injury associated with metabolic acidosis and hyperkalemia Past Medical History Cardiac Medical History: Reports: Atrial Fibrillation, Coronary Artery Disease, DVT, Myocardial Infarction - 2002, Hyperlipidema, Hypertension Pulmonary Medical History: Reports: Pneumonia - 2006 Endocrine Medical History: Reports: Diabetes Mellitus Type 2 Malignancy Medical History: Reports: Renal (Kidney) Cancer GI Medical History: Reports: Gastroesophageal Reflux Disease, Hiatal Hernia Musculoskeltal Medical History: Reports: Arthritis - Back, Knees Psychiatric Medical History: Denies: Depression Hematology: Reports: Anemia Past Surgical History Past Surgical History: Reports: Cardiac Catheterization, Colostomy, Coronary Stent, Hysterectomy, Ileostomy, Orthopedic Surgery - L knee replacement, right ankle pin Social History Smoking Status: Never Smoker Frequency of Alcohol Use: None Hx Recreational Drug Use: No Drugs: None Hx Prescription Drug Abuse: No - Advance Directive Resuscitation Status: Full Code Family History Family History: Hypertension Parental Family History Reviewed: Yes Children Family History Reviewed: Yes Sibling(s) Family History Reviewed.: Yes Medication/Allergy Home Medications: Albuterol Sulfate [Proair HFA] 2 puff IH Q4HP PRN 09/20/17 Aspirin [Ecotrin 81 mg EC Tablet] 81 mg PO DAILY 09/20/17 Betamethasone Dipropionate [Diprosone Cream] 1 applic TP Q12HP PRN 09/20/17 Clotrimazole [Lotrimin AF] 1 applic TP Q12HP PRN 09/20/17 Cyclobenzaprine HCl [Flexeril 10 mg Tablet] 10 mg PO TIDP PRN 09/20/17 Exenatide Microspheres [Bydureon Pen] 2 mg SQ KYLE@1000 09/20/17 Gabapentin [Neurontin] 600 mg PO Q6 09/20/17 Glipizide [Glipizide Xl] 5 mg PO DAILY 09/20/17 Insulin Aspart [Novolog Flexpen] 12 unit SUBCUT TIDP PRN 09/20/17 Insulin Glargine,Hum.rec.anlog [Lantus Solostar] 60 unit SQ BID 09/20/17 Linagliptin [Tradjenta] 5 mg PO DAILY 09/20/17 Metoprolol Succinate [Toprol Xl 50 mg Tab.sr] 50 mg PO DAILY 09/20/17 Nystatin [Mycostatin Topical Powder 15 gm] 1 applic TP Q12HP PRN 09/20/17 Oxycodone HCl [Oxycodone HCl 10 MG Tablet] 10 mg PO BIDP PRN 09/20/17 Oxymorphone HCl [Opana Er] 10 mg PO Q8 09/20/17 Pioglitazone HCl [Actos] 30 mg PO DAILY 09/20/17 Ramipril [Altace 10 mg Capsule] 10 mg PO DAILY 09/20/17 Sodium Bicarbonate [Sodium Bicarbonate 650 mg Tablet] 650 mg PO TID 09/20/17 Allergies/Adverse Reactions: ciprofloxacin [From Cipro] Allergy (Severe, Verified 08/17/17 13:55) Hallucinations morphine [Morphine] Allergy (Unknown, Verified 08/17/17 13:55) Review of Systems Constitutional: ABSENT: chills, fever(s), headache(s), weight gain, weight loss Eyes: ABSENT: visual disturbances Ears: ABSENT: hearing changes Cardiovascular: ABSENT: chest pain, dyspnea on exertion, edema, orthropnea, palpitations Respiratory: ABSENT: cough, hemoptysis Gastrointestinal: ABSENT: abdominal pain, constipation, diarrhea, hematemesis, hematochezia, nausea, vomiting Genitourinary: PRESENT: difficulty urinating Musculoskeletal: ABSENT: joint swelling Integumentary: ABSENT: rash, wounds Neurological: ABSENT: abnormal gait, abnormal speech, confusion, dizziness, focal weakness, syncope Psychiatric: ABSENT: anxiety, depression, homidical ideation, suicidal ideation Endocrine: ABSENT: cold intolerance, heat intolerance, menstrual abnormalities, polydipsia, polyuria Hematologic/Lymphatic: ABSENT: easy bleeding, easy bruising, lymphadenopathy Physical Exam Vital Signs: Temp Pulse Resp BP Pulse Ox 99.2 F 115 H 19 106/61 96 09/21/17 20:59 09/21/17 20:59 09/21/17 20:59 09/21/17 20:59 09/21/17 20:59 Intake & Output 09/20/17 09/21/17 09/22/17 06:59 06:59 06:59 Intake Total 2274 Output Total 400 Balance 1874 Weight 114.6 kg General appearance: PRESENT: no acute distress, well-developed, well-nourished Head exam: PRESENT: atraumatic, normocephalic Eye exam: PRESENT: conjunctiva pink, EOMI, PERRLA Ear exam: PRESENT: normal external ear exam Mouth exam: PRESENT: moist, tongue midline Neck exam: PRESENT: full ROM Cardiovascular exam: PRESENT: RRR, +S1, +S2 Pulses: PRESENT: normal dorsalis pedis pul, +2 pedal pulses bilateral Vascular exam: PRESENT: normal capillary refill GI/Abdominal exam: PRESENT: normal bowel sounds, soft, other - Ileostomy bag Rectal exam: PRESENT: deferred Neurological exam: PRESENT: alert, awake, oriented to person, oriented to place , oriented to time, oriented to situation, CN II-XII grossly intact. ABSENT: motor sensory deficit Psychiatric exam: PRESENT: appropriate affect, normal mood. ABSENT: homicidal ideation, suicidal ideation Skin exam: PRESENT: dry, intact, warm. ABSENT: cyanosis, rash Results Laboratory Results: 09/20/17 18:14 09/20/17 09/20/17 09/20/17 20:50 21:04 23:15 Sodium 124.9 L 118.4 L* Potassium 6.2 H* 6.4 H* Chloride 89 L 86 L Carbon Dioxide 14 L 13 L Anion Gap 22 H 19 BUN 92 H 94 H Creatinine 10.72 H 10.60 H Est GFR ( Amer) 4 L 4 L Est GFR (Non-Af Amer) 4 L 4 L Glucose 68 L 290 H Calcium 9.3 9.0 Total Bilirubin 0.7 AST 60 H ALT 52 Alkaline Phosphatase 97 Total Protein 8.0 Albumin 4.3 Urine Color DARK YELLOW Urine Appearance CLOUDY Urine pH 5.0 Ur Specific [place] 1.018 Urine Protein 30 H Urine Glucose (UA) 50 H Urine Ketones NEGATIVE Urine Blood MODERATE H Urine Nitrite NEGATIVE Ur Leukocyte Esterase LARGE H Urine WBC (Auto) 56 Urine RBC (Auto) 6 09/21/17 09/21/17 09/21/17 03:05 08:25 15:22 Sodium 126.6 L Cancelled Cancelled Potassium 5.7 H Cancelled Cancelled Chloride 91 L Cancelled Cancelled Carbon Dioxide 18 L Cancelled Cancelled Anion Gap 18 Cancelled Cancelled BUN 92 H Cancelled Cancelled Creatinine 11.16 H Cancelled Cancelled Est GFR ( Amer) 4 L Cancelled Cancelled Est GFR (Non-Af Amer) 3 L Cancelled Cancelled Glucose 96 Cancelled Cancelled Calcium 9.3 Cancelled Cancelled Total Bilirubin AST ALT Alkaline Phosphatase Total Protein Albumin Urine Color Urine Appearance Urine pH Ur Specific [place] Urine Protein Urine Glucose (UA) Urine Ketones Urine Blood Urine Nitrite Ur Leukocyte Esterase Urine WBC (Auto) Urine RBC (Auto) 09/21/17 09/21/17 15:22 16:39 Sodium Cancelled 123.7 L Potassium Cancelled 6.3 H* Chloride Cancelled 95 L Carbon Dioxide Cancelled 13 L Anion Gap Cancelled 16 BUN Cancelled 91 H Creatinine Cancelled 10.17 H Est GFR ( Amer) Cancelled 5 L Est GFR (Non-Af Amer) Cancelled 4 L Glucose Cancelled 77 Calcium Cancelled 8.5 Total Bilirubin Cancelled 0.6 AST Cancelled 58 H ALT Cancelled 45 Alkaline Phosphatase Cancelled 76 Total Protein Cancelled 6.9 Albumin Cancelled 3.5 Urine Color Urine Appearance Urine pH Ur Specific [place] Urine Protein Urine Glucose (UA) Urine Ketones Urine Blood Urine Nitrite Ur Leukocyte Esterase Urine WBC (Auto) Urine RBC (Auto) Impressions: Abdomen/Pelvis CT 09/20/17 00:00 IMPRESSION: 1. GALLSTONES. 2. STABLE SURGICAL CHANGES WITH OSTOMY ON THE RIGHT SIDE OF THE ABDOMEN. 3. OTHER CHRONIC FINDINGS ABOVE. NO OTHER SIGNIFICANT OR ACUTE PROCESS IN THE ABDOMEN OR PELVIS. Chest X-Ray 09/20/17 00:00 IMPRESSION: No acute cardiopulmonary findings. 2010 [employer]- All Rights Reserved Assessment & Plan - Diagnosis (1) Metabolic acidosis Is this a current diagnosis for this admission?: Yes (2) Hyperkalemia Is this a current diagnosis for this admission?: Yes (3) Acute kidney injury Is this a current diagnosis for this admission?: Yes (4) Oliguria Is this a current diagnosis for this admission?: Yes - Plan Summary Plan Summary: Acute kidney injury patient is admitted to the hospital she is started on calcium gluconate normal saline. insulin
--- NOTE | 2017-09-21 21:24 | PDOC PROGRESS REPORT ---
Subjective Progress Note for:: 09/21/17 Subjective:: Patient seen by the bedside, she is still acidotic, she will be started on sodium bicarb infusion Reason For Visit: URINARY RETENTION,ACUTE KIDNEY INJURY Physical Exam Vital Signs: Temp Pulse Resp BP Pulse Ox 99.2 F 115 H 19 106/61 96 09/21/17 20:59 09/21/17 20:59 09/21/17 20:59 09/21/17 20:59 09/21/17 20:59 Intake & Output 09/20/17 09/21/17 09/22/17 06:59 06:59 06:59 Intake Total 2274 Output Total 400 Balance 1874 Weight 114.6 kg General appearance: PRESENT: no acute distress Eye exam: PRESENT: PERRLA Respiratory exam: PRESENT: clear to auscultation stephen Cardiovascular exam: PRESENT: +S1, +S2 GI/Abdominal exam: PRESENT: soft Neurological exam: PRESENT: alert Results Laboratory Results: 09/20/17 18:14 09/21/17 20:50 09/20/17 09/20/17 09/20/17 20:50 21:04 23:15 Sodium 124.9 L 118.4 L* Potassium 6.2 H* 6.4 H* Chloride 89 L 86 L Carbon Dioxide 14 L 13 L Anion Gap 22 H 19 BUN 92 H 94 H Creatinine 10.72 H 10.60 H Est GFR ( Amer) 4 L 4 L Est GFR (Non-Af Amer) 4 L 4 L Glucose 68 L 290 H Calcium 9.3 9.0 Total Bilirubin 0.7 AST 60 H ALT 52 Alkaline Phosphatase 97 Total Protein 8.0 Albumin 4.3 Urine Color DARK YELLOW Urine Appearance CLOUDY Urine pH 5.0 Ur Specific [place] 1.018 Urine Protein 30 H Urine Glucose (UA) 50 H Urine Ketones NEGATIVE Urine Blood MODERATE H Urine Nitrite NEGATIVE Ur Leukocyte Esterase LARGE H Urine WBC (Auto) 56 Urine RBC (Auto) 6 09/21/17 09/21/17 09/21/17 03:05 08:25 15:22 Sodium 126.6 L Cancelled Cancelled Potassium 5.7 H Cancelled Cancelled Chloride 91 L Cancelled Cancelled Carbon Dioxide 18 L Cancelled Cancelled Anion Gap 18 Cancelled Cancelled BUN 92 H Cancelled Cancelled Creatinine 11.16 H Cancelled Cancelled Est GFR ( Amer) 4 L Cancelled Cancelled Est GFR (Non-Af Amer) 3 L Cancelled Cancelled Glucose 96 Cancelled Cancelled Calcium 9.3 Cancelled Cancelled Total Bilirubin AST ALT Alkaline Phosphatase Total Protein Albumin Urine Color Urine Appearance Urine pH Ur Specific [place] Urine Protein Urine Glucose (UA) Urine Ketones Urine Blood Urine Nitrite Ur Leukocyte Esterase Urine WBC (Auto) Urine RBC (Auto) 09/21/17 09/21/17 09/21/17 15:22 16:39 20:50 Sodium Cancelled 123.7 L 123.5 L Potassium Cancelled 6.3 H* 5.5 H Chloride Cancelled 95 L 93 L Carbon Dioxide Cancelled 13 L 15 L Anion Gap Cancelled 16 16 BUN Cancelled 91 H 89 H Creatinine Cancelled 10.17 H 9.72 H Est GFR ( Amer) Cancelled 5 L 5 L Est GFR (Non-Af Amer) Cancelled 4 L 4 L Glucose Cancelled 77 98 Calcium Cancelled 8.5 9.0 Total Bilirubin Cancelled 0.6 0.5 AST Cancelled 58 H 64 H ALT Cancelled 45 44 Alkaline Phosphatase Cancelled 76 81 Total Protein Cancelled 6.9 7.2 Albumin Cancelled 3.5 3.6 Urine Color Urine Appearance Urine pH Ur Specific [place] Urine Protein Urine Glucose (UA) Urine Ketones Urine Blood Urine Nitrite Ur Leukocyte Esterase Urine WBC (Auto) Urine RBC (Auto) Impressions: Abdomen/Pelvis CT 09/20/17 00:00 IMPRESSION: 1. GALLSTONES. 2. STABLE SURGICAL CHANGES WITH OSTOMY ON THE RIGHT SIDE OF THE ABDOMEN. 3. OTHER CHRONIC FINDINGS ABOVE. NO OTHER SIGNIFICANT OR ACUTE PROCESS IN THE ABDOMEN OR PELVIS. Chest X-Ray 09/20/17 00:00 IMPRESSION: No acute cardiopulmonary findings. 2010 [employer] ([employer])- All Rights Reserved Assessment & Plan - Diagnosis (1) Metabolic acidosis Is this a current diagnosis for this admission?: Yes (2) Hyperkalemia Is this a current diagnosis for this admission?: Yes (3) Acute kidney injury Is this a current diagnosis for this admission?: Yes (4) Oliguria Is this a current diagnosis for this admission?: Yes - Plan Summary Plan Summary: Start sodium bicarbonate infusion, transferred to [facility]
[2017-09-21 21:51] LABS: ABSOLUTE BASOPHILS # (AUTO) 0.1 10^3/uL (0.0-0.2); ABSOLUTE EOSINOPHILS # (AUTO) 0.1 10^3/uL (0.0-0.6); ABSOLUTE LYMPHOCYTES (AUTO) 1.5 10^3/uL (0.5-4.7); ABSOLUTE MONOCYTES (AUTO) 0.7 10^3/uL (0.1-1.4); ABSOLUTE NEUT (AUTO) 9.2 10^3/uL (1.7-8.2); BASOPHILS % (AUTO) 1.1 % (0-2); EOSINOPHILS % (AUTO) 1.3 % (0-6); HEMATOCRIT 30.7 % (36.0-47.0); HEMOGLOBIN 9.9 g/dL (12.0-15.5); LYMPHOCYTES % (AUTO) 13.2 % (13-45); MEAN CORPUSCULAR HEMOGLOBIN 28.7 pg (27.0-33.4); MEAN CORPUSCULAR HGB CONC 32.4 g/dL (32.0-36.0); MEAN CORPUSCULAR VOLUME 89 fl (80-97); MONOCYTES % (AUTO) 5.8 % (3-13); PLATELET COUNT 182 10^3/uL (150-450); RED BLOOD COUNT 3.46 10^6/uL (3.72-5.28); RED CELL DISTRIBUTION WIDTH 15.9 % (11.5-14.0); SEGMENTED NEUTROPHILS % (AUTO) 78.6 % (42-78); TOTAL CELLS COUNTED % (AUTO) 100 %; WHITE BLOOD COUNT 11.7 10^3/uL (4.0-10.5)
[2017-09-22 01:37] LABS: ANION GAP 16 (5-19); BLOOD UREA NITROGEN 89 mg/dL (7-20); CALCIUM 8.6 mg/dL (8.4-10.2); CARBON DIOXIDE 17 mmol/L (22-30); CHLORIDE 90 mmol/L (98-107); GLUCOSE 151 mg/dL (75-110); POTASSIUM 5.2 mmol/L (3.6-5.0); SODIUM 122.7 mmol/L (137-145)
[2017-09-22] MEDS: OXYCODONE HCL IR 5 MG TABLET PO PRN ×2 (04:25→19:46)
[2017-09-22 06:26] LABS: ANION GAP 17 (5-19); BLOOD UREA NITROGEN 86 mg/dL (7-20); CALCIUM 8.3 mg/dL (8.4-10.2); CARBON DIOXIDE 15 mmol/L (22-30); CHLORIDE 91 mmol/L (98-107); GLUCOSE 136 mg/dL (75-110); POTASSIUM 5.2 mmol/L (3.6-5.0); SODIUM 122.8 mmol/L (137-145)
[2017-09-22] MEDS: DEXTROSE 5%-WATER 1000 ML 1,000 ML with SODIUM BICARBONATE 100 MEQ IV PRN ×2 (06:36)
[2017-09-22] MEDS ORDERED: FUROSEMIDE INJ/PF 40 MG/4 ML SDV IV ONE (08:19)
[2017-09-22 10:27] LABS: ANION GAP 16 (5-19); BLOOD UREA NITROGEN 82 mg/dL (7-20); CALCIUM 8.2 mg/dL (8.4-10.2); CARBON DIOXIDE 16 mmol/L (22-30); CHLORIDE 92 mmol/L (98-107); GLUCOSE 168 mg/dL (75-110); POTASSIUM 4.9 mmol/L (3.6-5.0); SODIUM 123.5 mmol/L (137-145)
[2017-09-22] MEDS ORDERED: DOPAMINE HCL 800 MG/D5W 250 ML IV PRN (10:45)
[2017-09-22] MEDS: SODIUM BICARBONATE 650 MG TABLET PO SCH ×2 (12:53→21:23)
[2017-09-22 13:21] LABS: ANION GAP 14 (5-19); BLOOD UREA NITROGEN 82 mg/dL (7-20); CALCIUM 8.6 mg/dL (8.4-10.2); CARBON DIOXIDE 19 mmol/L (22-30); CHLORIDE 94 mmol/L (98-107); GLUCOSE 125 mg/dL (75-110); POTASSIUM 5.1 mmol/L (3.6-5.0); SODIUM 126.6 mmol/L (137-145)
--- NOTE | 2017-09-22 16:27 | PDOC PROGRESS REPORT ---
Subjective Progress Note for:: 09/22/17 Subjective:: Patient is seen by the bedside, the blood pressure is improving with IV fluid and dopamine infusion, IV access is a challenge for this patient, consultation will be requested from surgery for IJ, she is not a candidate for a PICC line or subclavian line because of chronic kidney disease. The kidney function is improving with hydration Reason For Visit: URINARY RETENTION,ACUTE KIDNEY INJURY Physical Exam Vital Signs: Temp Pulse Resp BP Pulse Ox 98.5 F 107 H 19 117/53 L 98 09/22/17 12:23 09/22/17 12:23 09/22/17 12:23 09/22/17 14:32 09/22/17 12:23 Intake & Output 09/21/17 09/22/17 09/23/17 06:59 06:59 06:59 Intake Total 2724 236 Output Total 525 1400 Balance 2199 -1164 Weight 114.6 kg 114.7 kg 114.7 kg General appearance: PRESENT: no acute distress Eye exam: PRESENT: PERRLA Respiratory exam: PRESENT: clear to auscultation stephen Cardiovascular exam: PRESENT: +S1, +S2 GI/Abdominal exam: PRESENT: soft Neurological exam: PRESENT: alert, CN II-XII grossly intact Results Laboratory Results: 09/21/17 15:22 09/22/17 12:57 09/21/17 09/21/17 09/21/17 15:22 16:39 20:50 WBC 11.7 H RBC 3.46 L Hgb 9.9 L Hct 30.7 L MCV 89 MCH 28.7 MCHC 32.4 RDW 15.9 H Plt Count 182 Seg Neutrophils % 78.6 H Lymphocytes % 13.2 Monocytes % 5.8 Eosinophils % 1.3 Basophils % 1.1 Absolute Neutrophils 9.2 H Absolute Lymphocytes 1.5 Absolute Monocytes 0.7 Absolute Eosinophils 0.1 Absolute Basophils 0.1 Sodium 123.7 L 123.5 L Potassium 6.3 H* 5.5 H Chloride 95 L 93 L Carbon Dioxide 13 L 15 L Anion Gap 16 16 BUN 91 H 89 H Creatinine 10.17 H 9.72 H Est GFR ( Amer) 5 L 5 L Est GFR (Non-Af Amer) 4 L 4 L Glucose 77 98 Calcium 8.5 9.0 Total Bilirubin 0.6 0.5 AST 58 H 64 H ALT 45 44 Alkaline Phosphatase 76 81 Total Protein 6.9 7.2 Albumin 3.5 3.6 09/22/17 09/22/17 09/22/17 01:05 05:02 09:44 WBC RBC Hgb Hct MCV MCH MCHC RDW Plt Count Seg Neutrophils % Lymphocytes % Monocytes % Eosinophils % Basophils % Absolute Neutrophils Absolute Lymphocytes Absolute Monocytes Absolute Eosinophils Absolute Basophils Sodium 122.7 L 122.8 L 123.5 L Potassium 5.2 H 5.2 H 4.9 Chloride 90 L 91 L 92 L Carbon Dioxide 17 L 15 L 16 L Anion Gap 16 17 16 BUN 89 H 86 H 82 H Creatinine 9.12 H 8.37 H 6.70 H Est GFR ( Amer) 5 L 6 L 8 L Est GFR (Non-Af Amer) 4 L 5 L 6 L Glucose 151 H 136 H 168 H Calcium 8.6 8.3 L 8.2 L Total Bilirubin AST ALT Alkaline Phosphatase Total Protein Albumin 09/22/17 12:57 WBC RBC Hgb Hct MCV MCH MCHC RDW Plt Count Seg Neutrophils % Lymphocytes % Monocytes % Eosinophils % Basophils % Absolute Neutrophils Absolute Lymphocytes Absolute Monocytes Absolute Eosinophils Absolute Basophils Sodium 126.6 L Potassium 5.1 H Chloride 94 L Carbon Dioxide 19 L Anion Gap 14 BUN 82 H Creatinine 6.68 H Est GFR ( Amer) 8 L Est GFR (Non-Af Amer) 6 L Glucose 125 H Calcium 8.6 Total Bilirubin AST ALT Alkaline Phosphatase Total Protein Albumin Impressions: Abdomen/Pelvis CT 09/20/17 00:00 IMPRESSION: 1. GALLSTONES. 2. STABLE SURGICAL CHANGES WITH OSTOMY ON THE RIGHT SIDE OF THE ABDOMEN. 3. OTHER CHRONIC FINDINGS ABOVE. NO OTHER SIGNIFICANT OR ACUTE PROCESS IN THE ABDOMEN OR PELVIS. Chest X-Ray 09/20/17 00:00 IMPRESSION: No acute cardiopulmonary findings. 2010 [employer]- All Rights Reserved Assessment & Plan - Diagnosis (1) Metabolic acidosis Is this a current diagnosis for this admission?: Yes (2) Hyperkalemia Is this a current diagnosis for this admission?: Yes (3) Acute kidney injury Is this a current diagnosis for this admission?: Yes (4) Oliguria Is this a current diagnosis for this admission?: Yes (5) Hypotension Qualifiers: Hypotension type: unspecified hypotension type Qualified Code(s): I95.9 - Hypotension, unspecified Is this a current diagnosis for this admission?: Yes Plan: Continue dopamine blood pressure improved (6) Urinary tract infection Qualifiers: Urinary tract infection type: site unspecified Hematuria presence: without hematuria Qualified Code(s): N39.0 - Urinary tract infection, site not specified Is this a current diagnosis for this admission?: Yes
[2017-09-22 18:34] LABS: ANION GAP 17 (5-19); BLOOD UREA NITROGEN 80 mg/dL (7-20); CALCIUM 8.7 mg/dL (8.4-10.2); CARBON DIOXIDE 17 mmol/L (22-30); CHLORIDE 95 mmol/L (98-107); GLUCOSE 165 mg/dL (75-110); POTASSIUM 5.1 mmol/L (3.6-5.0); SODIUM 128.5 mmol/L (137-145)
[2017-09-22] MEDS: CEFTRIAXONE SODIUM 1,000 MG in DEXTROSE 5%-WATER 50 ML IV SCH (19:44)
[2017-09-22] MEDS ORDERED: LIDOCAINE 1% INJ-PF (10 MG/ML) 30 ML SDV ONE (21:17)
[2017-09-22] MEDS: HYDROMORPHONE HCL INJ/PF 2 MG/ML AMPULE IV PRN (21:23)
[2017-09-23 01:34] LABS: ANION GAP 13 (5-19); BLOOD UREA NITROGEN 74 mg/dL (7-20); CALCIUM 8.5 mg/dL (8.4-10.2); CARBON DIOXIDE 21 mmol/L (22-30); CHLORIDE 95 mmol/L (98-107); GLUCOSE 113 mg/dL (75-110); POTASSIUM 4.6 mmol/L (3.6-5.0); SODIUM 128.8 mmol/L (137-145)
[2017-09-23] MEDS: SODIUM BICARBONATE 650 MG TABLET PO SCH ×3 (05:40→21:10)
[2017-09-23] MEDS: HYDROMORPHONE HCL INJ/PF 2 MG/ML AMPULE IV PRN ×4 (05:40→22:35)
[2017-09-23] MEDS: DEXTROSE 5%-WATER 1000 ML 1,000 ML with SODIUM BICARBONATE 100 MEQ IV PRN ×4 (05:40→14:00)
[2017-09-23 05:50] LABS: ANION GAP 11 (5-19); BLOOD UREA NITROGEN 71 mg/dL (7-20); CALCIUM 8.3 mg/dL (8.4-10.2); CARBON DIOXIDE 24 mmol/L (22-30); CHLORIDE 95 mmol/L (98-107); GLUCOSE 110 mg/dL (75-110); POTASSIUM 4.2 mmol/L (3.6-5.0); SODIUM 130.2 mmol/L (137-145)
[2017-09-23 11:03] LABS: ANION GAP 12 (5-19); BLOOD UREA NITROGEN 64 mg/dL (7-20); CALCIUM 8.2 mg/dL (8.4-10.2); CARBON DIOXIDE 26 mmol/L (22-30); CHLORIDE 93 mmol/L (98-107); GLUCOSE 172 mg/dL (75-110); POTASSIUM 4.1 mmol/L (3.6-5.0); SODIUM 130.5 mmol/L (137-145)
[2017-09-23] MEDS: ERTAPENEM SODIUM 0.5 GM in NORMAL SALINE 50 ML IV SCH (11:09)
[2017-09-23] MEDS ORDERED: ERTAPENEM SODIUM 1 GM in NORMAL SALINE 50 ML IV SCH (12:00)
[2017-09-23 13:51] LABS: ANION GAP 12 (5-19); BLOOD UREA NITROGEN 63 mg/dL (7-20); CALCIUM 8.6 mg/dL (8.4-10.2); CARBON DIOXIDE 27 mmol/L (22-30); CHLORIDE 94 mmol/L (98-107); GLUCOSE 93 mg/dL (75-110); POTASSIUM 4.2 mmol/L (3.6-5.0); SODIUM 133.4 mmol/L (137-145)
[2017-09-23] MEDS: NORMAL SALINE 1000 ML 1,000 ML IV PRN ×2 (18:36→21:11)
--- NOTE | 2017-09-23 20:31 | PDOC PROGRESS REPORT ---
Subjective Progress Note for:: 09/23/17 Subjective:: She was seen by the bedside, the urine culture grew ESBL E. coli. The electrolytes are improving, acute kidney injury is improving, she complained of pain requesting more frequent administration of pain medication Reason For Visit: URINARY RETENTION,ACUTE KIDNEY INJURY Physical Exam Vital Signs: Temp Pulse Resp BP Pulse Ox 98.3 F 95 16 102/57 L 94 09/23/17 15:34 09/23/17 15:34 09/23/17 15:34 09/23/17 15:34 09/23/17 15:34 Intake & Output 09/22/17 09/23/17 09/24/17 06:59 06:59 06:59 Intake Total 2724 3592 2017 Output Total 525 3800 2275 Balance 2199 -208 -881 Weight 114.7 kg 118.2 kg General appearance: PRESENT: no acute distress, well-developed, well-nourished Head exam: PRESENT: atraumatic, normocephalic Eye exam: PRESENT: conjunctiva pink, EOMI, PERRLA Ear exam: PRESENT: normal external ear exam Mouth exam: PRESENT: moist, tongue midline Neck exam: PRESENT: full ROM Respiratory exam: PRESENT: clear to auscultation stephen Cardiovascular exam: PRESENT: RRR, +S1, +S2 Pulses: PRESENT: normal dorsalis pedis pul, +2 pedal pulses bilateral Vascular exam: PRESENT: normal capillary refill GI/Abdominal exam: PRESENT: normal bowel sounds, soft Rectal exam: PRESENT: deferred Neurological exam: PRESENT: alert, awake, oriented to person, oriented to place , oriented to time, oriented to situation, CN II-XII grossly intact Psychiatric exam: PRESENT: appropriate affect, normal mood Skin exam: PRESENT: dry, intact, warm. ABSENT: cyanosis, rash Results Laboratory Results: 09/21/17 15:22 09/23/17 13:19 09/23/17 09/23/17 09/23/17 01:02 05:08 09:33 Sodium 128.8 L 130.2 L 130.5 L Potassium 4.6 4.2 4.1 Chloride 95 L 95 L 93 L Carbon Dioxide 21 L 24 26 Anion Gap 13 11 12 BUN 74 H 71 H 64 H Creatinine 4.25 H 3.72 H 3.11 H Est GFR ( Amer) 13 L 15 L 18 L Est GFR (Non-Af Amer) 11 L 12 L 15 L Glucose 113 H 110 172 H Calcium 8.5 8.3 L 8.2 L 09/23/17 13:19 Sodium 133.4 L Potassium 4.2 Chloride 94 L Carbon Dioxide 27 Anion Gap 12 BUN 63 H Creatinine 2.90 H Est GFR ( Amer) 20 L Est GFR (Non-Af Amer) 17 L Glucose 93 Calcium 8.6 09/20/17 21:04 Catheterized Urine Urine Culture - Final Escherichia Coli Esbl Impressions: Abdomen/Pelvis CT 09/20/17 00:00 IMPRESSION: 1. GALLSTONES. 2. STABLE SURGICAL CHANGES WITH OSTOMY ON THE RIGHT SIDE OF THE ABDOMEN. 3. OTHER CHRONIC FINDINGS ABOVE. NO OTHER SIGNIFICANT OR ACUTE PROCESS IN THE ABDOMEN OR PELVIS. Chest X-Ray 09/20/17 00:00 IMPRESSION: No acute cardiopulmonary findings. 2010 [employer]- All Rights Reserved Assessment & Plan - Diagnosis (1) Metabolic acidosis Is this a current diagnosis for this admission?: Yes (2) Hyperkalemia Is this a current diagnosis for this admission?: Yes (3) Acute kidney injury Is this a current diagnosis for this admission?: Yes (4) Oliguria Is this a current diagnosis for this admission?: Yes (5) Hypotension Qualifiers: Hypotension type: unspecified hypotension type Qualified Code(s): I95.9 - Hypotension, unspecified Is this a current diagnosis for this admission?: Yes (6) Urinary tract infection Qualifiers: Urinary tract infection type: site unspecified Hematuria presence: without hematuria Qualified Code(s): N39.0 - Urinary tract infection, site not specified Is this a current diagnosis for this admission?: Yes (7) UTI due to extended-spectrum beta lactamase (ESBL) producing Escherichia coli Is this a current diagnosis for this admission?: Yes Plan: Start intravenous ertapenem
[2017-09-23 22:09] LABS: ANION GAP 11 (5-19); BLOOD UREA NITROGEN 57 mg/dL (7-20); CALCIUM 8.3 mg/dL (8.4-10.2); CARBON DIOXIDE 27 mmol/L (22-30); CHLORIDE 95 mmol/L (98-107); GLUCOSE 85 mg/dL (75-110); POTASSIUM 4.3 mmol/L (3.6-5.0); SODIUM 133.3 mmol/L (137-145)
[2017-09-24 02:27] LABS: ANION GAP 9 (5-19); BLOOD UREA NITROGEN 52 mg/dL (7-20); CALCIUM 8.2 mg/dL (8.4-10.2); CARBON DIOXIDE 28 mmol/L (22-30); CHLORIDE 98 mmol/L (98-107); GLUCOSE 128 mg/dL (75-110); POTASSIUM 4.1 mmol/L (3.6-5.0); SODIUM 135.2 mmol/L (137-145)
[2017-09-24] MEDS: HYDROMORPHONE HCL INJ/PF 2 MG/ML AMPULE IV PRN ×5 (03:48→21:08)
[2017-09-24] MEDS: SODIUM BICARBONATE 650 MG TABLET PO SCH ×3 (05:39→21:08)
[2017-09-24 06:48] LABS: ANION GAP 9 (5-19); BLOOD UREA NITROGEN 46 mg/dL (7-20); CALCIUM 7.2 mg/dL (8.4-10.2); CARBON DIOXIDE 28 mmol/L (22-30); CHLORIDE 101 mmol/L (98-107); GLUCOSE 94 mg/dL (75-110); POTASSIUM 3.8 mmol/L (3.6-5.0); SODIUM 138.4 mmol/L (137-145)
[2017-09-24] MEDS: NORMAL SALINE 1000 ML 1,000 ML IV PRN ×2 (08:17→16:20)
[2017-09-24] MEDS: ERTAPENEM SODIUM 0.5 GM in NORMAL SALINE 50 ML IV SCH (10:25)
[2017-09-24] MEDS: OXYCODONE HCL IR 5 MG TABLET PO PRN (10:30)
[2017-09-24 11:22] LABS: ANION GAP 9 (5-19); BLOOD UREA NITROGEN 44 mg/dL (7-20); CALCIUM 8.2 mg/dL (8.4-10.2); CARBON DIOXIDE 28 mmol/L (22-30); CHLORIDE 99 mmol/L (98-107); GLUCOSE 140 mg/dL (75-110); POTASSIUM 4.1 mmol/L (3.6-5.0); SODIUM 136.1 mmol/L (137-145)
[2017-09-24 14:27] LABS: ANION GAP 10 (5-19); BLOOD UREA NITROGEN 43 mg/dL (7-20); CALCIUM 8.1 mg/dL (8.4-10.2); CARBON DIOXIDE 28 mmol/L (22-30); CHLORIDE 101 mmol/L (98-107); GLUCOSE 95 mg/dL (75-110)
[2017-09-24 14:34] LABS: POTASSIUM 4.5 mmol/L (3.6-5.0)
[2017-09-24 18:09] LABS: ANION GAP 9 (5-19); BLOOD UREA NITROGEN 40 mg/dL (7-20); CARBON DIOXIDE 28 mmol/L (22-30); CHLORIDE 102 mmol/L (98-107); GLUCOSE 88 mg/dL (75-110); POTASSIUM 4.3 mmol/L (3.6-5.0); SODIUM 138.9 mmol/L (137-145)
--- NOTE | 2017-09-24 21:19 | PDOC PROGRESS REPORT ---
Subjective Progress Note for:: 09/24/17 Subjective:: Patient was seen by the bedside, she was admitted for the management of acute kidney injury associated with severe metabolic acidosis and hyperkalemia. She is showing improvement in the kidney function, we will continue hydration Reason For Visit: URINARY RETENTION,ACUTE KIDNEY INJURY Physical Exam Vital Signs: Temp Pulse Resp BP Pulse Ox 98.8 F 84 16 120/62 96 09/24/17 19:56 09/24/17 19:56 09/24/17 19:56 09/24/17 19:56 09/24/17 19:56 Intake & Output 09/23/17 09/24/17 09/25/17 06:59 06:59 06:59 Intake Total 3592 4738 2210 Output Total 3800 4475 1450 Balance -208 263 760 Weight 118.2 kg 117.4 kg General appearance: PRESENT: no acute distress, well-developed, well-nourished Head exam: PRESENT: atraumatic, normocephalic Eye exam: PRESENT: conjunctiva pink, EOMI, PERRLA Ear exam: PRESENT: normal external ear exam Mouth exam: PRESENT: moist, tongue midline Neck exam: PRESENT: full ROM Respiratory exam: PRESENT: clear to auscultation stephen Cardiovascular exam: PRESENT: RRR, +S1, +S2 Pulses: PRESENT: normal dorsalis pedis pul, +2 pedal pulses bilateral Vascular exam: PRESENT: normal capillary refill GI/Abdominal exam: PRESENT: normal bowel sounds, soft Rectal exam: PRESENT: deferred Neurological exam: PRESENT: alert, awake, oriented to person, oriented to place , oriented to time, oriented to situation, CN II-XII grossly intact. ABSENT: motor sensory deficit Psychiatric exam: PRESENT: appropriate affect, normal mood Skin exam: PRESENT: dry, intact, warm. ABSENT: cyanosis, rash Results Laboratory Results: 09/21/17 15:22 09/24/17 17:40 09/23/17 09/24/17 09/24/17 21:45 01:45 05:42 Sodium 133.3 L 135.2 L 138.4 Potassium 4.3 4.1 3.8 Chloride 95 L 98 101 Carbon Dioxide 27 28 28 Anion Gap 11 9 9 BUN 57 H 52 H 46 H Creatinine 2.35 H 2.09 H 1.81 H Est GFR ( Amer) 26 L 29 L 35 L Est GFR (Non-Af Amer) 21 L 24 L 29 L Glucose 85 128 H 94 Calcium 8.3 L 8.2 L 7.2 L 09/24/17 09/24/17 09/24/17 10:00 13:45 17:40 Sodium 136.1 L 139.0 138.9 Potassium 4.1 4.5 4.3 Chloride 99 101 102 Carbon Dioxide 28 28 28 Anion Gap 9 10 9 BUN 44 H 43 H 40 H Creatinine 1.85 H 1.73 H 1.66 H Est GFR ( Amer) 34 L 36 L 38 L Est GFR (Non-Af Amer) 28 L 30 L 32 L Glucose 140 H 95 88 Calcium 8.2 L 8.1 L 8.0 L Impressions: Abdomen/Pelvis CT 09/20/17 00:00 IMPRESSION: 1. GALLSTONES. 2. STABLE SURGICAL CHANGES WITH OSTOMY ON THE RIGHT SIDE OF THE ABDOMEN. 3. OTHER CHRONIC FINDINGS ABOVE. NO OTHER SIGNIFICANT OR ACUTE PROCESS IN THE ABDOMEN OR PELVIS. Chest X-Ray 09/20/17 00:00 IMPRESSION: No acute cardiopulmonary findings. 2010 [employer]- All Rights Reserved Assessment & Plan - Diagnosis (1) Acute kidney injury Is this a current diagnosis for this admission?: Yes (2) Metabolic acidosis Is this a current diagnosis for this admission?: Yes (3) Hyperkalemia Is this a current diagnosis for this admission?: Yes (4) Oliguria Is this a current diagnosis for this admission?: Yes (5) Hypotension Qualifiers: Hypotension type: unspecified hypotension type Qualified Code(s): I95.9 - Hypotension, unspecified Is this a current diagnosis for this admission?: Yes (6) Urinary tract infection Qualifiers: Urinary tract infection type: site unspecified Hematuria presence: without hematuria Qualified Code(s): N39.0 - Urinary tract infection, site not specified Is this a current diagnosis for this admission?: Yes (7) UTI due to extended-spectrum beta lactamase (ESBL) producing Escherichia coli Is this a current diagnosis for this admission?: Yes - Plan Summary Plan Summary: She has ESBL E. coli, she will continue IV antibiotic with ertapenem, continue hydration
[2017-09-24 22:32] LABS: ANION GAP 8 (5-19); BLOOD UREA NITROGEN 37 mg/dL (7-20); CARBON DIOXIDE 30 mmol/L (22-30); CHLORIDE 103 mmol/L (98-107); GLUCOSE 115 mg/dL (75-110); POTASSIUM 4.4 mmol/L (3.6-5.0); SODIUM 140.9 mmol/L (137-145)
[2017-09-25] MEDS: HYDROMORPHONE HCL INJ/PF 2 MG/ML AMPULE IV PRN ×5 (02:16→22:52)
[2017-09-25] MEDS: NORMAL SALINE 1000 ML 1,000 ML IV PRN ×2 (02:20→22:18)
[2017-09-25 02:33] LABS: ANION GAP 8 (5-19); BLOOD UREA NITROGEN 35 mg/dL (7-20); CALCIUM 8.2 mg/dL (8.4-10.2); CARBON DIOXIDE 27 mmol/L (22-30); CHLORIDE 106 mmol/L (98-107); GLUCOSE 98 mg/dL (75-110); POTASSIUM 4.5 mmol/L (3.6-5.0); SODIUM 140.5 mmol/L (137-145)
[2017-09-25] MEDS: SODIUM BICARBONATE 650 MG TABLET PO SCH ×3 (05:35→22:18)
[2017-09-25 08:21] LABS: ANION GAP 9 (5-19); BLOOD UREA NITROGEN 31 mg/dL (7-20); CALCIUM 8.1 mg/dL (8.4-10.2); CARBON DIOXIDE 26 mmol/L (22-30); CHLORIDE 106 mmol/L (98-107); GLUCOSE 90 mg/dL (75-110); POTASSIUM 4.6 mmol/L (3.6-5.0); SODIUM 140.7 mmol/L (137-145)
[2017-09-25] MEDS ORDERED: LIDOCAINE 1% INJ-PF (10 MG/ML) 30 ML SDV ONE (08:32)
--- NOTE | 2017-09-25 13:22 | Operative Report ---
Operative Report DATE OF SURGERY: 09/25/17 PREOPERATIVE DIAGNOSIS: need IV access for meds and fluids POSTOPERATIVE DIAGNOSIS: same OPERATION: Left subclavian vein tripe lumen catheter placement SURGEON: DREW PEACOCK ANESTHESIA: Local TISSUE REMOVED OR ALTERED: n/a COMPLICATIONS: none ESTIMATED BLOOD LOSS: < 5mL INTRAOPERATIVE FINDINGS: as above PROCEDURE: see dictation
--- NOTE | 2017-09-25 13:27 | PDOC CONSULTATION ---
Consultation Consult Date: 09/25/17 Consult reason:: CVL placement History of Present Illness Admission Date/PCP: 09/20/17 14:24 LISA MATA MD History of Present Illness: Morbidly obese 61 y/o female in need of IV access for meds and IV fluids Past Medical History Cardiac Medical History: Reports: Atrial Fibrillation, Coronary Artery Disease, DVT, Myocardial Infarction - 2002, Hyperlipidema, Hypertension Pulmonary Medical History: Reports: Pneumonia - 2006 Endocrine Medical History: Reports: Diabetes Mellitus Type 2 Malignancy Medical History: Reports: Renal (Kidney) Cancer GI Medical History: Reports: Gastroesophageal Reflux Disease, Hiatal Hernia Musculoskeltal Medical History: Reports: Arthritis - Back, Knees Psychiatric Medical History: Denies: Depression Hematology: Reports: Anemia Past Surgical History Past Surgical History: Reports: Cardiac Catheterization, Colostomy, Coronary Stent, Hysterectomy, Ileostomy, Orthopedic Surgery - L knee replacement, right ankle pin Social History Smoking Status: Never Smoker Frequency of Alcohol Use: None Hx Recreational Drug Use: No Drugs: None Hx Prescription Drug Abuse: No - Advance Directive Resuscitation Status: Full Code Family History Family History: Reviewed & Not Pertinent, Hypertension Parental Family History Reviewed: No Children Family History Reviewed: No Sibling(s) Family History Reviewed.: No Medication/Allergy Home Medications: Albuterol Sulfate [Proair HFA] 2 puff IH Q4HP PRN 09/20/17 Aspirin [Ecotrin 81 mg EC Tablet] 81 mg PO DAILY 09/20/17 Betamethasone Dipropionate [Diprosone Cream] 1 applic TP Q12HP PRN 09/20/17 Clotrimazole [Lotrimin AF] 1 applic TP Q12HP PRN 09/20/17 Cyclobenzaprine HCl [Flexeril 10 mg Tablet] 10 mg PO TIDP PRN 09/20/17 Exenatide Microspheres [Bydureon Pen] 2 mg SQ KYLE@1000 09/20/17 Gabapentin [Neurontin] 600 mg PO Q6 09/20/17 Glipizide [Glipizide Xl] 5 mg PO DAILY 09/20/17 Insulin Aspart [Novolog Flexpen] 12 unit SUBCUT TIDP PRN 09/20/17 Insulin Glargine,Hum.rec.anlog [Lantus Solostar] 60 unit SQ BID 09/20/17 Linagliptin [Tradjenta] 5 mg PO DAILY 09/20/17 Metoprolol Succinate [Toprol Xl 50 mg Tab.sr] 50 mg PO DAILY 09/20/17 Nystatin [Mycostatin Topical Powder 15 gm] 1 applic TP Q12HP PRN 09/20/17 Oxycodone HCl [Oxycodone HCl 10 MG Tablet] 10 mg PO BIDP PRN 09/20/17 Oxymorphone HCl [Opana Er] 10 mg PO Q8 09/20/17 Pioglitazone HCl [Actos] 30 mg PO DAILY 09/20/17 Ramipril [Altace 10 mg Capsule] 10 mg PO DAILY 09/20/17 Sodium Bicarbonate [Sodium Bicarbonate 650 mg Tablet] 650 mg PO TID 09/20/17 Allergies/Adverse Reactions: ciprofloxacin [From Cipro] Allergy (Severe, Verified 08/17/17 13:55) Hallucinations morphine [Morphine] Allergy (Unknown, Verified 08/17/17 13:55) Physical Exam Vital Signs: Temp Pulse Resp BP Pulse Ox 98.8 F 87 18 159/87 H 100 09/25/17 11:57 09/25/17 11:57 09/25/17 11:57 09/25/17 11:57 09/25/17 11:57 Intake & Output 09/24/17 09/25/17 09/26/17 06:59 06:59 06:59 Intake Total 4738 4710 355 Output Total 4475 2900 575 Balance 263 1810 -220 Weight 117.4 kg 119.1 kg General appearance: PRESENT: no acute distress Neck exam: PRESENT: full ROM, tracheostomy - old site, healing, other Respiratory exam: PRESENT: symmetrical, unlabored GI/Abdominal exam: PRESENT: soft - obese Extremities exam: PRESENT: full ROM Musculoskeletal exam: PRESENT: full ROM Neurological exam: PRESENT: alert, oriented to time Psychiatric exam: PRESENT: anxious Results Laboratory Results: 09/21/17 15:22 09/25/17 07:29 09/24/17 09/24/17 09/24/17 13:45 17:40 22:04 Sodium 139.0 138.9 140.9 Potassium 4.5 4.3 4.4 Chloride 101 102 103 Carbon Dioxide 28 28 30 Anion Gap 10 9 8 BUN 43 H 40 H 37 H Creatinine 1.73 H 1.66 H 1.66 H Est GFR ( Amer) 36 L 38 L 38 L Est GFR (Non-Af Amer) 30 L 32 L 32 L Glucose 95 88 115 H Calcium 8.1 L 8.0 L 8.0 L 09/25/17 09/25/17 02:00 07:29 Sodium 140.5 140.7 Potassium 4.5 4.6 Chloride 106 106 Carbon Dioxide 27 26 Anion Gap 8 9 BUN 35 H 31 H Creatinine 1.60 H 1.62 H Est GFR ( Amer) 40 L 39 L Est GFR (Non-Af Amer) 33 L 32 L Glucose 98 90 Calcium 8.2 L 8.1 L Impressions: Abdomen/Pelvis CT 09/20/17 00:00 IMPRESSION: 1. GALLSTONES. 2. STABLE SURGICAL CHANGES WITH OSTOMY ON THE RIGHT SIDE OF THE ABDOMEN. 3. OTHER CHRONIC FINDINGS ABOVE. NO OTHER SIGNIFICANT OR ACUTE PROCESS IN THE ABDOMEN OR PELVIS. Chest X-Ray 09/20/17 00:00 IMPRESSION: No acute cardiopulmonary findings. 2010 [employer]- All Rights Reserved Assessment & Plan - Diagnosis (1) Need for intravenous access Is this a current diagnosis for this admission?: Yes - Plan Summary Plan Summary: Plan triple lumen intravenous catheter placement Procedure, risks, benefits, complications d/w patient, she understands and decides to proceed
--- NOTE | 2017-09-25 13:30 | RADIOLOGY REPORT (SQ) ---
EXAM DESCRIPTION: CHEST SINGLE VIEW COMPLETED DATE/TIME: 09/25/2017 1:23 pm REASON FOR STUDY: central line placement COMPARISON: 09/20/2017 EXAM PARAMETERS: NUMBER OF VIEWS: One view. TECHNIQUE: Single frontal radiographic view of the chest acquired. RADIATION DOSE: NA LIMITATIONS: None. FINDINGS: LUNGS AND PLEURA: No new opacities, masses or pneumothorax. No pleural effusion. MEDIASTINUM AND HILAR STRUCTURES: No masses. Contour normal. HEART AND VASCULAR STRUCTURES: Heart stable in size. Normal vasculature. BONES: No acute findings. HARDWARE: Left central venous catheter terminates within the SVC. OTHER: No other significant finding. IMPRESSION: SATISFACTORY PLACEMENT CENTRAL VENOUS CATHETER WITHOUT COMPLICATION. OTHERWISE STABLE A PPEARANCE OF THE CHEST. TECHNICAL DOCUMENTATION: JOB ID: [id number] [employer]- All Rights Reserved
[2017-09-25] MEDS: ERTAPENEM SODIUM 0.5 GM in NORMAL SALINE 50 ML IV SCH (14:15)
--- NOTE | 2017-09-25 14:47 | PDOC PROGRESS REPORT ---
Subjective Progress Note for:: 09/25/17 Subjective:: Patient reported persistence of high output diarrhea content from her ileostomy. No nausea, vomiting, or abdominal pain. No chest pain or difficulty with breathing. No fever or chills. She remain on IV fluid support. Reason For Visit: URINARY RETENTION,ACUTE KIDNEY INJURY Physical Exam Vital Signs: Temp Pulse Resp BP Pulse Ox 98.8 F 87 18 159/87 H 100 09/25/17 11:57 09/25/17 11:57 09/25/17 11:57 09/25/17 11:57 09/25/17 11:57 Intake & Output 09/24/17 09/25/17 09/26/17 06:59 06:59 06:59 Intake Total 4738 4710 355 Output Total 4475 2900 575 Balance 263 1810 -220 Weight 117.4 kg 119.1 kg General appearance: PRESENT: no acute distress, morbidly obese Head exam: PRESENT: atraumatic, normocephalic Mouth exam: PRESENT: moist - fairly Teeth exam: PRESENT: poor dentation Respiratory exam: PRESENT: clear to auscultation stephen Cardiovascular exam: PRESENT: RRR. ABSENT: diastolic murmur, rubs, systolic murmur Vascular exam: PRESENT: normal capillary refill. ABSENT: pallor GI/Abdominal exam: PRESENT: normal bowel sounds, soft, other - ileostomy bag contain watery stool content. ABSENT: distended, guarding, mass, organolmegaly , rebound, tenderness Extremities exam: ABSENT: pedal edema Neurological exam: PRESENT: alert, awake, oriented to person, oriented to place , oriented to time, oriented to situation, CN II-XII grossly intact. ABSENT: motor sensory deficit Psychiatric exam: PRESENT: appropriate affect, normal mood. ABSENT: homicidal ideation, suicidal ideation Skin exam: PRESENT: dry, intact, warm. ABSENT: cyanosis, rash Results Laboratory Results: 09/21/17 15:22 09/25/17 07:29 09/24/17 09/24/17 09/25/17 17:40 22:04 02:00 Sodium 138.9 140.9 140.5 Potassium 4.3 4.4 4.5 Chloride 102 103 106 Carbon Dioxide 28 30 27 Anion Gap 9 8 8 BUN 40 H 37 H 35 H Creatinine 1.66 H 1.66 H 1.60 H Est GFR ( Amer) 38 L 38 L 40 L Est GFR (Non-Af Amer) 32 L 32 L 33 L Glucose 88 115 H 98 Calcium 8.0 L 8.0 L 8.2 L 09/25/17 07:29 Sodium 140.7 Potassium 4.6 Chloride 106 Carbon Dioxide 26 Anion Gap 9 BUN 31 H Creatinine 1.62 H Est GFR ( Amer) 39 L Est GFR (Non-Af Amer) 32 L Glucose 90 Calcium 8.1 L Impressions: Abdomen/Pelvis CT 09/20/17 00:00 IMPRESSION: 1. GALLSTONES. 2. STABLE SURGICAL CHANGES WITH OSTOMY ON THE RIGHT SIDE OF THE ABDOMEN. 3. OTHER CHRONIC FINDINGS ABOVE. NO OTHER SIGNIFICANT OR ACUTE PROCESS IN THE ABDOMEN OR PELVIS. Chest X-Ray 09/25/17 00:00 IMPRESSION: SATISFACTORY PLACEMENT CENTRAL VENOUS CATHETER WITHOUT COMPLICATION. OTHERWISE STABLE APPEARANCE OF THE CHEST. Assessment & Plan - Diagnosis (1) Acute kidney injury Is this a current diagnosis for this admission?: Yes Plan: See covering attending physician orders. (2) High output ileostomy Is this a current diagnosis for this admission?: Yes Plan: See covering attending physician orders. (3) Type 2 diabetes mellitus Qualifiers: Diabetes mellitus complication status: with neurologic complications Diabetes mellitus complication detail: with polyneuropathy Diabetes mellitus senior care insulin use: with senior care use Qualified Code(s): E11.42 - Type 2 diabetes mellitus with diabetic polyneuropathy; Z79.4 - senior living (current) use of insulin; Z79.4 - termite exterminator helper (current) use of insulin; Z79.4 - termite exterminator helper ( current) use of insulin; Z79.4 - termite exterminator helper (current) use of insulin Is this a current diagnosis for this admission?: Yes Plan: See covering attending physician orders. (4) Morbid obesity Is this a current diagnosis for this admission?: Yes Plan: See covering attending physician orders. - Time Time Spent with patient: 25-34 minutes Medications reviewed and adjusted accordingly: Yes Anticipated discharge: Home with Homehealth Within: Other - Inpatient Certification Based on my medical assessment, after consideration of the patient's comorbidities, presenting symptoms, or acuity I expect that the services needed warrant INPATIENT care.: Yes I certify that my determination is in accordance with my understanding of Medicare's requirements for reasonable and necessary INPATIENT services [42 CFR 412.3e].: Yes Medical Necessity: Need Close Monitoring Due to Risk of Patient Decompensation, Need For IV Fluids, Need For Continuous Telemetry Monitoring, Need for IV Antibiotics, Risk of Complication if Not Cared For in Hospital Post Hospital Care: D/C Cold Storage 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
[2017-09-25 15:40] LABS: ANION GAP 9 (5-19); BLOOD UREA NITROGEN 27 mg/dL (7-20); CALCIUM 8.1 mg/dL (8.4-10.2); CARBON DIOXIDE 26 mmol/L (22-30); CHLORIDE 104 mmol/L (98-107); GLUCOSE 181 mg/dL (75-110); POTASSIUM 4.2 mmol/L (3.6-5.0); SODIUM 139.3 mmol/L (137-145)
--- NOTE | 2017-09-25 19:10 | OPERATIVE REPORT E ---
Operative Report NAME: RANDEE VELÁSQUEZ : 1955 AGE: 61Y DATE OF SURGERY: 09/25/2017 ROOM: 301 PREOPERATIVE DIAGNOSIS: Need of intravenous access for administration of fluids and medication. POSTOPERATIVE DIAGNOSIS: Need of intravenous access for administration of fluids and medication. OPERATION: Left subclavian vein triple lumen intravenous catheter. ESTIMATED BLOOD LOSS: Less than 5 mL SURGEON: DREW PEACOCK M.D. SECOND VP AD SALES WEST: None. COMPLICATIONS: None. ANESTHESIA: Local, 10 mL of 1% lidocaine without epinephrine. INDICATION AND FINDINGS: This is a 61-year-old female with UTI due to multiple resistant strain of organism in need of IV access for administration of medication and fluids. The procedure, risks and benefits have been completely explained to the patient and she decided to proceed. DESCRIPTION OF PROCEDURE: The procedure was done at bedside. The patient was placed in the supine, Trendelenburg position. A towel was placed in between the patient's shoulder blades. Following this, the left side of the neck and chest were prepped and draped in usual fashion. The midportion of the left clavicle was infiltrated with lidocaine. A 16-gauge needle was then used to easily cannulate the left subclavian vein. A guidewire was inserted up to the superior vena cava. The needle was removed. The guidewire insertion point was enlarged with a tissue dilator which was then removed. The triple lumen catheter was then advanced over the guidewire into the superior vena cava. The guidewire was then removed. The port was inspected and flushed with normal saline which was done easily. The catheter was secured to the skin with silk sutures. Sterile dressings were applied. The patient tolerated the procedure well. A chest x-ray was obtained to confirm position of the line. DICTATING PHYSICIAN: DREW PEACOCK M.D. [id number] PHY#: [id number] ID: [id number] JOB#: [id number] ACCT: [id number] cc:DREW PEACOCK M.D. > MTDD
[2017-09-26] MEDS: NORMAL SALINE 1000 ML 1,000 ML IV PRN ×3 (04:29→22:28)
[2017-09-26] MEDS: HYDROMORPHONE HCL INJ/PF 2 MG/ML AMPULE IV PRN ×5 (04:30→22:47)
[2017-09-26] MEDS: SODIUM BICARBONATE 650 MG TABLET PO SCH ×3 (05:21→22:26)
[2017-09-26 05:34] LABS: ABSOLUTE EOSINOPHILS # (AUTO) 0.1 10^3/uL (0.0-0.6); ABSOLUTE LYMPHOCYTES (AUTO) 1.2 10^3/uL (0.5-4.7); ABSOLUTE MONOCYTES (AUTO) 0.6 10^3/uL (0.1-1.4); BASOPHILS % (AUTO) 0.1 % (0-2); EOSINOPHILS % (AUTO) 2.1 % (0-6); HEMATOCRIT 31.2 % (36.0-47.0); HEMOGLOBIN 10.2 g/dL (12.0-15.5); LYMPHOCYTES % (AUTO) 17.7 % (13-45); MEAN CORPUSCULAR HEMOGLOBIN 28.7 pg (27.0-33.4); MEAN CORPUSCULAR HGB CONC 32.6 g/dL (32.0-36.0); MEAN CORPUSCULAR VOLUME 88 fl (80-97); MONOCYTES % (AUTO) 8.8 % (3-13); PLATELET COUNT 166 10^3/uL (150-450); RED BLOOD COUNT 3.54 10^6/uL (3.72-5.28); RED CELL DISTRIBUTION WIDTH 15.9 % (11.5-14.0); SEGMENTED NEUTROPHILS % (AUTO) 71.3 % (42-78); TOTAL CELLS COUNTED % (AUTO) 100 %
[2017-09-26 05:59] LABS: ALANINE AMINOTRANSFERASE 27 U/L (9-52); ALBUMIN 3.2 g/dL (3.5-5.0); ALKALINE PHOSPHATASE 77 U/L (38-126); ANION GAP 10 (5-19); ASPARTATE AMINO TRANSFERASE 36 U/L (14-36); BLOOD UREA NITROGEN 25 mg/dL (7-20); CALCIUM 7.9 mg/dL (8.4-10.2); CARBON DIOXIDE 28 mmol/L (22-30); CHLORIDE 107 mmol/L (98-107); GLUCOSE 133 mg/dL (75-110); SODIUM 144.8 mmol/L (137-145); TOTAL PROTEIN 6.7 g/dL (6.3-8.2)
[2017-09-26 06:04] LABS: BILIRUBIN,TOTAL < 0.1 mg/dL (0.2-1.3)
[2017-09-26] MEDS: ERTAPENEM SODIUM 0.5 GM in NORMAL SALINE 50 ML IV SCH (10:31)
--- NOTE | 2017-09-26 12:27 | PDOC PROGRESS REPORT ---
Subjective Progress Note for:: 09/26/17 Subjective:: Patient continue to have significant efflux through her ileostomy. No nausea, vomiting, or abdominal pain. No chest pain or difficulty with breathing. No fever or chills. She reported itching and gritty eyes. She remain on IV fluid support. Reason For Visit: URINARY RETENTION,ACUTE KIDNEY INJURY Physical Exam Vital Signs: Temp Pulse Resp BP Pulse Ox 98.4 F 77 22 H 177/89 H 96 09/26/17 07:39 09/26/17 07:39 09/26/17 07:39 09/26/17 07:39 09/26/17 07:39 Intake & Output 09/25/17 09/26/17 09/27/17 06:59 06:59 06:59 Intake Total 4710 3280 Output Total 2900 4425 Balance 1810 -1145 Weight 119.1 kg 117.9 kg Physical Exam: General appearance: PRESENT: no acute distress, morbidly obese Head exam: PRESENT: atraumatic, normocephalic Mouth exam: PRESENT: moist - fairly EYES: Dry. ABSENT: Conjunctiva injection Teeth exam: PRESENT: poor dentition Respiratory exam: PRESENT: clear to auscultation stephen Cardiovascular exam: PRESENT: RRR. ABSENT: diastolic murmur, rubs, systolic murmur Vascular exam: PRESENT: normal capillary refill. ABSENT: pallor GI/Abdominal exam: PRESENT: normal bowel sounds, soft, other - ileostomy bag contain watery stool content. ABSENT: distended, guarding, mass, organomegaly, rebound, tenderness Extremities exam: ABSENT: pedal edema Neurological exam: PRESENT: alert, awake, oriented to person, oriented to place , oriented to time, oriented to situation, CN II-XII grossly intact. ABSENT: motor sensory deficit Psychiatric exam: PRESENT: appropriate affect, normal mood. ABSENT: homicidal ideation, suicidal ideation Skin exam: PRESENT: dry, intact, warm. ABSENT: cyanosis, rash Results Laboratory Results: 09/26/17 04:30 09/26/17 04:30 09/25/17 09/26/17 09/26/17 14:45 04:30 04:30 WBC 7.0 RBC 3.54 L Hgb 10.2 L Hct 31.2 L MCV 88 MCH 28.7 MCHC 32.6 RDW 15.9 H Plt Count 166 Seg Neutrophils % 71.3 Lymphocytes % 17.7 Monocytes % 8.8 Eosinophils % 2.1 Basophils % 0.1 Absolute Neutrophils 5.0 Absolute Lymphocytes 1.2 Absolute Monocytes 0.6 Absolute Eosinophils 0.1 Absolute Basophils 0.0 Sodium 139.3 144.8 Potassium 4.2 4.0 Chloride 104 107 Carbon Dioxide 26 28 Anion Gap 9 10 BUN 27 H 25 H Creatinine 1.63 H 1.68 H Est GFR ( Amer) 39 L 38 L Est GFR (Non-Af Amer) 32 L 31 L Glucose 181 H 133 H Calcium 8.1 L 7.9 L Total Bilirubin < 0.1 L AST 36 ALT 27 Alkaline Phosphatase 77 Total Protein 6.7 Albumin 3.2 L 09/20/17 20:50 Blood Blood Culture - Final NO GROWTH IN 5 DAYS 09/20/17 18:14 Blood Blood Culture - Final NO GROWTH IN 5 DAYS Impressions: Abdomen/Pelvis CT 09/20/17 00:00 IMPRESSION: 1. GALLSTONES. 2. STABLE SURGICAL CHANGES WITH OSTOMY ON THE RIGHT SIDE OF THE ABDOMEN. 3. OTHER CHRONIC FINDINGS ABOVE. NO OTHER SIGNIFICANT OR ACUTE PROCESS IN THE ABDOMEN OR PELVIS. Chest X-Ray 09/25/17 00:00 IMPRESSION: SATISFACTORY PLACEMENT CENTRAL VENOUS CATHETER WITHOUT COMPLICATION. OTHERWISE STABLE APPEARANCE OF THE CHEST. Assessment & Plan - Diagnosis (1) Acute kidney injury Is this a current diagnosis for this admission?: Yes (2) High output ileostomy Is this a current diagnosis for this admission?: Yes (3) Type 2 diabetes mellitus Qualifiers: Diabetes mellitus complication status: with neurologic complications Diabetes mellitus complication detail: with polyneuropathy Diabetes mellitus termination clerk insulin use: with termination clerk use Qualified Code(s): E11.42 - Type 2 diabetes mellitus with diabetic polyneuropathy; Z79.4 - manager long term care (current) use of insulin; Z79.4 - [facility] (current) use of insulin; Z79.4 - [facility] ( current) use of insulin; Z79.4 - [facility] (current) use of insulin Is this a current diagnosis for this admission?: Yes (4) Morbid obesity Is this a current diagnosis for this admission?: Yes (5) Allergic conjunctivitis of both eyes Is this a current diagnosis for this admission?: Yes Plan: See covering attending physician orders. - Time Time Spent with patient: 25-34 minutes Medications reviewed and adjusted accordingly: Yes Anticipated discharge: Home with Homehealth Within: Other - Inpatient Certification Based on my medical assessment, after consideration of the patient's comorbidities, presenting symptoms, or acuity I expect that the services needed warrant INPATIENT care.: Yes I certify that my determination is in accordance with my understanding of Medicare's requirements for reasonable and necessary INPATIENT services [42 CFR 412.3e].: Yes Medical Necessity: Need Close Monitoring Due to Risk of Patient Decompensation, Need For IV Fluids, Need for IV Antibiotics, Risk of Complication if Not Cared For in Hospital Post Hospital Care: D/C Pan Pusher Documentation - Plan Summary Plan Summary: See covering attending physician orders.
[2017-09-26] MEDS ORDERED: AMLODIPINE BESYLATE 5 MG TABLET PO ONE (13:00)
[2017-09-26] MEDS ORDERED: OLOPATADINE HCL 0.1% OPH SOLN 5 ML OU ONE (14:00)
[2017-09-27] MEDS: SODIUM BICARBONATE 650 MG TABLET PO SCH ×3 (06:47→21:15)
[2017-09-27] MEDS: NORMAL SALINE 1000 ML 1,000 ML IV PRN ×2 (06:49→17:14)
[2017-09-27] MEDS: HYDROMORPHONE HCL INJ/PF 2 MG/ML AMPULE IV PRN ×4 (08:45→21:15)
[2017-09-27] MEDS: AMLODIPINE BESYLATE 5 MG TABLET PO SCH (09:23)
[2017-09-27] MEDS: OLOPATADINE HCL 0.1% OPH SOLN 5 ML OU SCH (09:24)
[2017-09-27] MEDS: ERTAPENEM SODIUM 0.5 GM in NORMAL SALINE 50 ML IV SCH (10:58)
[2017-09-27 14:02] LABS: ABSOLUTE EOSINOPHILS # (AUTO) 0.2 10^3/uL (0.0-0.6); ABSOLUTE LYMPHOCYTES (AUTO) 1.4 10^3/uL (0.5-4.7); ABSOLUTE MONOCYTES (AUTO) 0.7 10^3/uL (0.1-1.4); ABSOLUTE NEUT (AUTO) 7.9 10^3/uL (1.7-8.2); BASOPHILS % (AUTO) 0.2 % (0-2); EOSINOPHILS % (AUTO) 1.8 % (0-6); HEMATOCRIT 33.3 % (36.0-47.0); HEMOGLOBIN 10.7 g/dL (12.0-15.5); MEAN CORPUSCULAR HEMOGLOBIN 28.4 pg (27.0-33.4); MEAN CORPUSCULAR HGB CONC 32.2 g/dL (32.0-36.0); MEAN CORPUSCULAR VOLUME 88 fl (80-97); MONOCYTES % (AUTO) 6.7 % (3-13); PLATELET COUNT 177 10^3/uL (150-450); RED BLOOD COUNT 3.78 10^6/uL (3.72-5.28); RED CELL DISTRIBUTION WIDTH 15.6 % (11.5-14.0); SEGMENTED NEUTROPHILS % (AUTO) 77.3 % (42-78); TOTAL CELLS COUNTED % (AUTO) 100 %; WHITE BLOOD COUNT 10.2 10^3/uL (4.0-10.5)
[2017-09-27 14:19] LABS: ALANINE AMINOTRANSFERASE 36 U/L (9-52); ALBUMIN 3.3 g/dL (3.5-5.0); ALKALINE PHOSPHATASE 98 U/L (38-126); ANION GAP 9 (5-19); ASPARTATE AMINO TRANSFERASE 45 U/L (14-36); BILIRUBIN,DIRECT 0.3 mg/dL (0.0-0.4); BILIRUBIN,TOTAL 0.5 mg/dL (0.2-1.3); BLOOD UREA NITROGEN 19 mg/dL (7-20); CALCIUM 7.6 mg/dL (8.4-10.2); CARBON DIOXIDE 25 mmol/L (22-30); CHLORIDE 110 mmol/L (98-107); GLUCOSE 108 mg/dL (75-110); POTASSIUM 4.1 mmol/L (3.6-5.0); SODIUM 143.9 mmol/L (137-145); TOTAL PROTEIN 6.8 g/dL (6.3-8.2)
[2017-09-27] MEDS ORDERED: METOPROLOL SUCCINATE 50 MG TAB.SR.24H PO ONE (20:15)
[2017-09-27] MEDS: GABAPENTIN 300 MG CAPSULE PO SCH (23:08)
[2017-09-28] MEDS: NORMAL SALINE 1000 ML 1,000 ML IV PRN ×2 (00:50→09:09)
[2017-09-28] MEDS: HYDROMORPHONE HCL INJ/PF 2 MG/ML AMPULE IV PRN ×5 (01:22→20:27)
[2017-09-28] MEDS: SODIUM BICARBONATE 650 MG TABLET PO SCH ×3 (06:27→22:09)
[2017-09-28] MEDS: GABAPENTIN 300 MG CAPSULE PO SCH ×3 (06:27→17:26)
[2017-09-28 07:00] LABS: ABSOLUTE EOSINOPHILS # (AUTO) 0.3 10^3/uL (0.0-0.6); ABSOLUTE LYMPHOCYTES (AUTO) 1.1 10^3/uL (0.5-4.7); ABSOLUTE MONOCYTES (AUTO) 0.7 10^3/uL (0.1-1.4); ABSOLUTE NEUT (AUTO) 6.8 10^3/uL (1.7-8.2); BASOPHILS % (AUTO) 0.2 % (0-2); EOSINOPHILS % (AUTO) 3.3 % (0-6); HEMATOCRIT 31.1 % (36.0-47.0); LYMPHOCYTES % (AUTO) 12.4 % (13-45); MEAN CORPUSCULAR HEMOGLOBIN 28.4 pg (27.0-33.4); MEAN CORPUSCULAR HGB CONC 32.2 g/dL (32.0-36.0); MEAN CORPUSCULAR VOLUME 88 fl (80-97); MONOCYTES % (AUTO) 7.4 % (3-13); PLATELET COUNT 142 10^3/uL (150-450); RED BLOOD COUNT 3.53 10^6/uL (3.72-5.28); RED CELL DISTRIBUTION WIDTH 15.8 % (11.5-14.0); SEGMENTED NEUTROPHILS % (AUTO) 76.7 % (42-78); TOTAL CELLS COUNTED % (AUTO) 100 %; WHITE BLOOD COUNT 8.9 10^3/uL (4.0-10.5)
[2017-09-28 07:15] LABS: ALANINE AMINOTRANSFERASE 38 U/L (9-52); ALBUMIN 2.9 g/dL (3.5-5.0); ALKALINE PHOSPHATASE 90 U/L (38-126); ANION GAP 10 (5-19); ASPARTATE AMINO TRANSFERASE 44 U/L (14-36); BILIRUBIN,DIRECT 0.2 mg/dL (0.0-0.4); BILIRUBIN,TOTAL 0.5 mg/dL (0.2-1.3); BLOOD UREA NITROGEN 17 mg/dL (7-20); CARBON DIOXIDE 23 mmol/L (22-30); CHLORIDE 113 mmol/L (98-107); GLUCOSE 94 mg/dL (75-110); SODIUM 145.9 mmol/L (137-145); TOTAL PROTEIN 6.1 g/dL (6.3-8.2)
[2017-09-28 07:29] LABS: CALCIUM 7.1 mg/dL (8.4-10.2)
[2017-09-28] MEDS: AMLODIPINE BESYLATE 5 MG TABLET PO SCH (09:04)
[2017-09-28] MEDS: RAMIPRIL 10 MG CAPSULE PO SCH (09:05)
[2017-09-28] MEDS: OLOPATADINE HCL 0.1% OPH SOLN 5 ML OU SCH (09:05)
[2017-09-28] MEDS: MAGNESIUM OXIDE 400 MG TABLET PO SCH (09:05)
[2017-09-28] MEDS: METOPROLOL SUCCINATE 50 MG TAB.SR.24H PO SCH (09:05)
[2017-09-28] MEDS: ERTAPENEM SODIUM 0.5 GM in NORMAL SALINE 50 ML IV SCH (11:03)
--- NOTE | 2017-09-28 17:21 | PDOC PROGRESS REPORT ---
Subjective Progress Note for:: 09/27/17 Subjective:: She was seen by the bedside, she continues to improve, Reason For Visit: URINARY RETENTION,ACUTE KIDNEY INJURY Physical Exam Vital Signs: Temp Pulse Resp BP Pulse Ox 99.1 F 82 22 H 143/92 H 97 09/28/17 11:44 09/28/17 14:00 09/28/17 11:44 09/28/17 11:44 09/28/17 11:44 Intake & Output 09/27/17 09/28/17 09/29/17 06:59 06:59 06:59 Intake Total 4855 4387 444 Output Total 2650 2500 200 Balance 2205 1887 244 Weight 118.9 kg 117.7 kg General appearance: PRESENT: no acute distress, well-developed, well-nourished Head exam: PRESENT: atraumatic, normocephalic Eye exam: PRESENT: conjunctiva pink, EOMI, PERRLA Ear exam: PRESENT: normal external ear exam Mouth exam: PRESENT: moist, tongue midline Neck exam: PRESENT: full ROM Respiratory exam: PRESENT: clear to auscultation stephen Cardiovascular exam: PRESENT: RRR, +S1, +S2 Pulses: PRESENT: normal dorsalis pedis pul, +2 pedal pulses bilateral Vascular exam: PRESENT: normal capillary refill GI/Abdominal exam: PRESENT: normal bowel sounds, soft Rectal exam: PRESENT: deferred Neurological exam: PRESENT: alert Psychiatric exam: PRESENT: appropriate affect, normal mood Skin exam: PRESENT: dry, intact, warm. ABSENT: cyanosis, rash Results Laboratory Results: 09/28/17 06:30 09/28/17 06:30 09/28/17 09/28/17 09/28/17 06:30 06:30 06:30 WBC 8.9 RBC 3.53 L Hgb 10.0 L Hct 31.1 L MCV 88 MCH 28.4 MCHC 32.2 RDW 15.8 H Plt Count 142 L Seg Neutrophils % 76.7 Lymphocytes % 12.4 L Monocytes % 7.4 Eosinophils % 3.3 Basophils % 0.2 Absolute Neutrophils 6.8 Absolute Lymphocytes 1.1 Absolute Monocytes 0.7 Absolute Eosinophils 0.3 Absolute Basophils 0.0 Sodium 145.9 H Potassium 4.0 Chloride 113 H Carbon Dioxide 23 Anion Gap 10 BUN 17 Creatinine 1.38 H Est GFR ( Amer) 47 L Est GFR (Non-Af Amer) 39 L Glucose 94 Calcium 7.1 L Magnesium 0.7 L* Total Bilirubin 0.5 AST 44 H ALT 38 Alkaline Phosphatase 90 Total Protein 6.1 L Albumin 2.9 L Impressions: Abdomen/Pelvis CT 09/20/17 00:00 IMPRESSION: 1. GALLSTONES. 2. STABLE SURGICAL CHANGES WITH OSTOMY ON THE RIGHT SIDE OF THE ABDOMEN. 3. OTHER CHRONIC FINDINGS ABOVE. NO OTHER SIGNIFICANT OR ACUTE PROCESS IN THE ABDOMEN OR PELVIS. Chest X-Ray 09/25/17 00:00 IMPRESSION: SATISFACTORY PLACEMENT CENTRAL VENOUS CATHETER WITHOUT COMPLICATION. OTHERWISE STABLE APPEARANCE OF THE CHEST. Assessment & Plan - Diagnosis (1) Acute kidney injury Is this a current diagnosis for this admission?: Yes (2) Metabolic acidosis Is this a current diagnosis for this admission?: Yes (3) Hyperkalemia Is this a current diagnosis for this admission?: Yes (4) Oliguria Is this a current diagnosis for this admission?: Yes (5) Hypotension Qualifiers: Hypotension type: unspecified hypotension type Qualified Code(s): I95.9 - Hypotension, unspecified Is this a current diagnosis for this admission?: Yes (6) Urinary tract infection Qualifiers: Urinary tract infection type: site unspecified Hematuria presence: without hematuria Qualified Code(s): N39.0 - Urinary tract infection, site not specified Is this a current diagnosis for this admission?: Yes (7) UTI due to extended-spectrum beta lactamase (ESBL) producing Escherichia coli Is this a current diagnosis for this admission?: Yes
--- NOTE | 2017-09-28 19:33 | RADIOLOGY REPORT (SQ) ---
EXAM DESCRIPTION: KNEE LEFT 2 VIEWS COMPLETED DATE/TIME: 09/28/2017 7:25 pm REASON FOR STUDY: left knee pain/swelling COMPARISON: None. NUMBER OF VIEWS: Two views. TECHNIQUE: AP and lateral radiographic images acquired of the left knee. LIMITATIONS: None. FINDINGS: MINERALIZATION: Normal. BONES: Total knee prosthesis. No acute fracture or dislocation. No worrisome bone lesions. No signif icant osteophytes. JOINT: No effusion. No chondrocalcinosis. OTHER: No other significant finding. IMPRESSION: KNEE PROSTHESIS. OTHERWISE NO ACUTE OR SIGNIFICANT FINDINGS. TECHNICAL DOCUMENTATION: JOB ID: [id number] [employer]- All Rights Reserved
[2017-09-28] MEDS ORDERED: MAGNESIUM SULFATE/D5W 1 GM/100 ML RTUPB IV ONE (19:55)
--- NOTE | 2017-09-28 19:59 | PDOC PROGRESS REPORT ---
Subjective Progress Note for:: 09/28/17 Subjective:: She complained of left knee pain, on inspection there is mild swelling, x-ray was done, it was negative Reason For Visit: URINARY RETENTION,ACUTE KIDNEY INJURY Physical Exam Vital Signs: Temp Pulse Resp BP Pulse Ox 99.1 F 82 22 H 143/92 H 97 09/28/17 11:44 09/28/17 14:00 09/28/17 11:44 09/28/17 11:44 09/28/17 11:44 Intake & Output 09/27/17 09/28/17 09/29/17 06:59 06:59 06:59 Intake Total 4855 4387 1275 Output Total 2650 2500 1800 Balance 2205 1887 -525 Weight 118.9 kg 117.7 kg General appearance: PRESENT: no acute distress, well-developed, well-nourished Head exam: PRESENT: atraumatic, normocephalic Eye exam: PRESENT: conjunctiva pink, EOMI, PERRLA Ear exam: PRESENT: normal external ear exam Mouth exam: PRESENT: moist, tongue midline Neck exam: PRESENT: full ROM Respiratory exam: PRESENT: clear to auscultation stephen Cardiovascular exam: PRESENT: RRR, +S1, +S2 Pulses: PRESENT: normal dorsalis pedis pul, +2 pedal pulses bilateral Vascular exam: PRESENT: normal capillary refill GI/Abdominal exam: PRESENT: normal bowel sounds, soft. ABSENT: distended, guarding, mass, organolmegaly, rebound, tenderness Rectal exam: PRESENT: deferred Neurological exam: PRESENT: alert. ABSENT: motor sensory deficit Psychiatric exam: ABSENT: homicidal ideation, suicidal ideation Skin exam: PRESENT: dry, intact, warm. ABSENT: cyanosis, rash Results Laboratory Results: 09/28/17 06:30 09/28/17 06:30 09/28/17 09/28/17 09/28/17 06:30 06:30 06:30 WBC 8.9 RBC 3.53 L Hgb 10.0 L Hct 31.1 L MCV 88 MCH 28.4 MCHC 32.2 RDW 15.8 H Plt Count 142 L Seg Neutrophils % 76.7 Lymphocytes % 12.4 L Monocytes % 7.4 Eosinophils % 3.3 Basophils % 0.2 Absolute Neutrophils 6.8 Absolute Lymphocytes 1.1 Absolute Monocytes 0.7 Absolute Eosinophils 0.3 Absolute Basophils 0.0 Sodium 145.9 H Potassium 4.0 Chloride 113 H Carbon Dioxide 23 Anion Gap 10 BUN 17 Creatinine 1.38 H Est GFR ( Amer) 47 L Est GFR (Non-Af Amer) 39 L Glucose 94 Calcium 7.1 L Magnesium 0.7 L* Total Bilirubin 0.5 AST 44 H ALT 38 Alkaline Phosphatase 90 Total Protein 6.1 L Albumin 2.9 L Impressions: Abdomen/Pelvis CT 09/20/17 00:00 IMPRESSION: 1. GALLSTONES. 2. STABLE SURGICAL CHANGES WITH OSTOMY ON THE RIGHT SIDE OF THE ABDOMEN. 3. OTHER CHRONIC FINDINGS ABOVE. NO OTHER SIGNIFICANT OR ACUTE PROCESS IN THE ABDOMEN OR PELVIS. Chest X-Ray 09/25/17 00:00 IMPRESSION: SATISFACTORY PLACEMENT CENTRAL VENOUS CATHETER WITHOUT COMPLICATION. OTHERWISE STABLE APPEARANCE OF THE CHEST. Knee X-Ray 09/28/17 00:00 IMPRESSION: KNEE PROSTHESIS. OTHERWISE NO ACUTE OR SIGNIFICANT FINDINGS. Assessment & Plan - Diagnosis (1) Acute kidney injury Is this a current diagnosis for this admission?: Yes (2) Metabolic acidosis Is this a current diagnosis for this admission?: Yes (3) Hyperkalemia Is this a current diagnosis for this admission?: Yes (4) Oliguria Is this a current diagnosis for this admission?: Yes (5) Hypotension Qualifiers: Hypotension type: unspecified hypotension type Qualified Code(s): I95.9 - Hypotension, unspecified Is this a current diagnosis for this admission?: Yes (6) Urinary tract infection Qualifiers: Urinary tract infection type: site unspecified Hematuria presence: without hematuria Qualified Code(s): N39.0 - Urinary tract infection, site not specified Is this a current diagnosis for this admission?: Yes (7) UTI due to extended-spectrum beta lactamase (ESBL) producing Escherichia coli Is this a current diagnosis for this admission?: Yes (8) Hypomagnesemia Is this a current diagnosis for this admission?: Yes Plan: Replace magnesium
[2017-09-29] MEDS: GABAPENTIN 300 MG CAPSULE PO SCH ×5 (01:17→23:30)
[2017-09-29] MEDS: HYDROMORPHONE HCL INJ/PF 2 MG/ML AMPULE IV PRN ×6 (01:18→22:15)
[2017-09-29] MEDS: SODIUM BICARBONATE 650 MG TABLET PO SCH ×3 (05:22→22:15)
[2017-09-29] MEDS: NORMAL SALINE 1000 ML 1,000 ML IV PRN (06:31)
[2017-09-29] MEDS: RAMIPRIL 10 MG CAPSULE PO SCH (09:39)
[2017-09-29] MEDS: AMLODIPINE BESYLATE 5 MG TABLET PO SCH (09:40)
[2017-09-29] MEDS: MAGNESIUM OXIDE 400 MG TABLET PO SCH (09:40)
[2017-09-29] MEDS: METOPROLOL SUCCINATE 50 MG TAB.SR.24H PO SCH (09:40)
[2017-09-29] MEDS: OLOPATADINE HCL 0.1% OPH SOLN 5 ML OU SCH (09:41)
[2017-09-29] MEDS: ERTAPENEM SODIUM 0.5 GM in NORMAL SALINE 50 ML IV SCH (12:38)
[2017-09-29 12:57] LABS: ABSOLUTE EOSINOPHILS # (AUTO) 0.3 10^3/uL (0.0-0.6); ABSOLUTE LYMPHOCYTES (AUTO) 1.1 10^3/uL (0.5-4.7); ABSOLUTE MONOCYTES (AUTO) 0.9 10^3/uL (0.1-1.4); ABSOLUTE NEUT (AUTO) 7.8 10^3/uL (1.7-8.2); BASOPHILS % (AUTO) 0.2 % (0-2); EOSINOPHILS % (AUTO) 3.1 % (0-6); HEMATOCRIT 30.2 % (36.0-47.0); HEMOGLOBIN 9.7 g/dL (12.0-15.5); LYMPHOCYTES % (AUTO) 10.7 % (13-45); MEAN CORPUSCULAR HEMOGLOBIN 28.4 pg (27.0-33.4); MEAN CORPUSCULAR HGB CONC 32.1 g/dL (32.0-36.0); MEAN CORPUSCULAR VOLUME 89 fl (80-97); MONOCYTES % (AUTO) 8.5 % (3-13); PLATELET COUNT 151 10^3/uL (150-450); RED BLOOD COUNT 3.41 10^6/uL (3.72-5.28); RED CELL DISTRIBUTION WIDTH 15.9 % (11.5-14.0); SEGMENTED NEUTROPHILS % (AUTO) 77.5 % (42-78); TOTAL CELLS COUNTED % (AUTO) 100 %
[2017-09-29 13:17] LABS: ALANINE AMINOTRANSFERASE 40 U/L (9-52); ALKALINE PHOSPHATASE 85 U/L (38-126); ANION GAP 9 (5-19); ASPARTATE AMINO TRANSFERASE 38 U/L (14-36); BILIRUBIN,DIRECT 0.3 mg/dL (0.0-0.4); BILIRUBIN,TOTAL 0.6 mg/dL (0.2-1.3); BLOOD UREA NITROGEN 15 mg/dL (7-20); CALCIUM 7.1 mg/dL (8.4-10.2); CARBON DIOXIDE 24 mmol/L (22-30); CHLORIDE 106 mmol/L (98-107); GLUCOSE 129 mg/dL (75-110); POTASSIUM 3.9 mmol/L (3.6-5.0); SODIUM 138.5 mmol/L (137-145); TOTAL PROTEIN 6.3 g/dL (6.3-8.2)
--- NOTE | 2017-09-29 15:51 | PDOC PROGRESS REPORT ---
Subjective Progress Note for:: 09/29/17 Subjective:: She was seen by the bedside, she was seen today by physical therapy, could not stand on the legs very weak, she did complain of pain on both legs more so on the left knee on inspection of the knee there is swelling, yesterday the knee was x-rayed, it was negative for any acute pathology Reason For Visit: URINARY RETENTION,ACUTE KIDNEY INJURY Physical Exam Vital Signs: Temp Pulse Resp BP Pulse Ox 100.8 F H 102 H 24 H 154/80 H 100 09/29/17 11:20 09/29/17 14:00 09/29/17 11:20 09/29/17 11:20 09/29/17 11:20 Intake & Output 09/28/17 09/29/17 09/30/17 06:59 06:59 06:59 Intake Total 4387 4275 237 Output Total 2500 2900 1400 Balance 1887 1375 -1163 Weight 117.7 kg 118.6 kg Head exam: PRESENT: atraumatic, normocephalic Eye exam: PRESENT: conjunctiva pink, EOMI, PERRLA Ear exam: PRESENT: normal external ear exam Mouth exam: PRESENT: moist, tongue midline Neck exam: PRESENT: full ROM Respiratory exam: PRESENT: clear to auscultation stephen Cardiovascular exam: PRESENT: RRR, +S1, +S2 Pulses: PRESENT: normal dorsalis pedis pul, +2 pedal pulses bilateral Vascular exam: PRESENT: normal capillary refill GI/Abdominal exam: PRESENT: normal bowel sounds, soft Rectal exam: PRESENT: deferred Neurological exam: PRESENT: alert Psychiatric exam: PRESENT: appropriate affect, normal mood Skin exam: PRESENT: dry, intact, warm Results Laboratory Results: 09/29/17 12:45 09/29/17 12:45 09/29/17 09/29/17 12:45 12:45 WBC 10.0 RBC 3.41 L Hgb 9.7 L Hct 30.2 L MCV 89 MCH 28.4 MCHC 32.1 RDW 15.9 H Plt Count 151 Seg Neutrophils % 77.5 Lymphocytes % 10.7 L Monocytes % 8.5 Eosinophils % 3.1 Basophils % 0.2 Absolute Neutrophils 7.8 Absolute Lymphocytes 1.1 Absolute Monocytes 0.9 Absolute Eosinophils 0.3 Absolute Basophils 0.0 Sodium 138.5 Potassium 3.9 Chloride 106 Carbon Dioxide 24 Anion Gap 9 BUN 15 Creatinine 1.41 H Est GFR ( Amer) 46 L Est GFR (Non-Af Amer) 38 L Glucose 129 H Calcium 7.1 L Total Bilirubin 0.6 AST 38 H ALT 40 Alkaline Phosphatase 85 Total Protein 6.3 Albumin 3.0 L Impressions: Abdomen/Pelvis CT 09/20/17 00:00 IMPRESSION: 1. GALLSTONES. 2. STABLE SURGICAL CHANGES WITH OSTOMY ON THE RIGHT SIDE OF THE ABDOMEN. 3. OTHER CHRONIC FINDINGS ABOVE. NO OTHER SIGNIFICANT OR ACUTE PROCESS IN THE ABDOMEN OR PELVIS. Chest X-Ray 09/25/17 00:00 IMPRESSION: SATISFACTORY PLACEMENT CENTRAL VENOUS CATHETER WITHOUT COMPLICATION. OTHERWISE STABLE APPEARANCE OF THE CHEST. Knee X-Ray 09/28/17 00:00 IMPRESSION: KNEE PROSTHESIS. OTHERWISE NO ACUTE OR SIGNIFICANT FINDINGS. Assessment & Plan - Diagnosis (1) Acute kidney injury Is this a current diagnosis for this admission?: Yes (2) Metabolic acidosis Is this a current diagnosis for this admission?: Yes (3) Hyperkalemia Is this a current diagnosis for this admission?: Yes (4) Oliguria Is this a current diagnosis for this admission?: Yes (5) Hypotension Qualifiers: Hypotension type: unspecified hypotension type Qualified Code(s): I95.9 - Hypotension, unspecified Is this a current diagnosis for this admission?: Yes (6) Urinary tract infection Qualifiers: Urinary tract infection type: site unspecified Hematuria presence: without hematuria Qualified Code(s): N39.0 - Urinary tract infection, site not specified Is this a current diagnosis for this admission?: Yes (7) UTI due to extended-spectrum beta lactamase (ESBL) producing Escherichia coli Is this a current diagnosis for this admission?: Yes (8) Hypomagnesemia Is this a current diagnosis for this admission?: Yes - Plan Summary Plan Summary: She will be treated with colchicine
[2017-09-29] MEDS: COLCHICINE 0.6 MG TABLET PO SCH (22:15)
[2017-09-30] MEDS: HYDROMORPHONE HCL INJ/PF 2 MG/ML AMPULE IV PRN ×2 (03:16→08:21)
[2017-09-30] MEDS: GABAPENTIN 300 MG CAPSULE PO SCH ×4 (05:51→23:42)
[2017-09-30] MEDS: SODIUM BICARBONATE 650 MG TABLET PO SCH ×3 (05:52→21:05)
[2017-09-30] MEDS: NORMAL SALINE 1000 ML 1,000 ML IV PRN ×3 (05:52→21:57)
[2017-09-30 09:46] LABS: ABSOLUTE EOSINOPHILS # (AUTO) 0.2 10^3/uL (0.0-0.6); ABSOLUTE LYMPHOCYTES (AUTO) 1.1 10^3/uL (0.5-4.7); ABSOLUTE MONOCYTES (AUTO) 0.8 10^3/uL (0.1-1.4); ABSOLUTE NEUT (AUTO) 6.8 10^3/uL (1.7-8.2); BASOPHILS % (AUTO) 0.4 % (0-2); EOSINOPHILS % (AUTO) 2.4 % (0-6); HEMATOCRIT 29.3 % (36.0-47.0); HEMOGLOBIN 9.5 g/dL (12.0-15.5); LYMPHOCYTES % (AUTO) 11.9 % (13-45); MEAN CORPUSCULAR HEMOGLOBIN 28.3 pg (27.0-33.4); MEAN CORPUSCULAR HGB CONC 32.4 g/dL (32.0-36.0); MEAN CORPUSCULAR VOLUME 87 fl (80-97); MONOCYTES % (AUTO) 9.2 % (3-13); PLATELET COUNT 150 10^3/uL (150-450); RED BLOOD COUNT 3.36 10^6/uL (3.72-5.28); RED CELL DISTRIBUTION WIDTH 15.9 % (11.5-14.0); SEGMENTED NEUTROPHILS % (AUTO) 76.1 % (42-78); TOTAL CELLS COUNTED % (AUTO) 100 %
[2017-09-30] MEDS: COLCHICINE 0.6 MG TABLET PO SCH ×2 (09:51→21:05)
[2017-09-30] MEDS: MAGNESIUM OXIDE 400 MG TABLET PO SCH (09:51)
[2017-09-30] MEDS: RAMIPRIL 10 MG CAPSULE PO SCH (09:52)
[2017-09-30] MEDS: AMLODIPINE BESYLATE 5 MG TABLET PO SCH (09:52)
[2017-09-30] MEDS: OLOPATADINE HCL 0.1% OPH SOLN 5 ML OU SCH (09:52)
[2017-09-30] MEDS: METOPROLOL SUCCINATE 50 MG TAB.SR.24H PO SCH (09:52)
[2017-09-30 10:10] LABS: ALANINE AMINOTRANSFERASE 39 U/L (9-52); ALBUMIN 2.9 g/dL (3.5-5.0); ALKALINE PHOSPHATASE 93 U/L (38-126); ANION GAP 9 (5-19); ASPARTATE AMINO TRANSFERASE 37 U/L (14-36); BILIRUBIN,DIRECT 0.5 mg/dL (0.0-0.4); BILIRUBIN,TOTAL 0.6 mg/dL (0.2-1.3); BLOOD UREA NITROGEN 14 mg/dL (7-20); CALCIUM 7.1 mg/dL (8.4-10.2); CARBON DIOXIDE 23 mmol/L (22-30); CHLORIDE 108 mmol/L (98-107); GLUCOSE 80 mg/dL (75-110); POTASSIUM 4.1 mmol/L (3.6-5.0); SODIUM 139.7 mmol/L (137-145); TOTAL PROTEIN 6.3 g/dL (6.3-8.2)
[2017-09-30] MEDS: OXYCODONE HCL IR 5 MG TABLET PO PRN (13:22)
[2017-09-30] MEDS ORDERED: ACETAMINOPHEN 325 MG TABLET PO PRN (19:15)
[2017-09-30] MEDS: HEPARIN SOD (PORCINE) 5,000 UNIT/ML 1 ML SYRINGE SUBCUT SCH (21:05)
[2017-09-30 21:25] LABS: HEMATOCRIT 29.4 % (36.0-47.0); HEMOGLOBIN 9.5 g/dL (12.0-15.5); MEAN CORPUSCULAR HEMOGLOBIN 28.2 pg (27.0-33.4); MEAN CORPUSCULAR HGB CONC 32.4 g/dL (32.0-36.0); MEAN CORPUSCULAR VOLUME 87 fl (80-97); PLATELET COUNT 157 10^3/uL (150-450); RED BLOOD COUNT 3.37 10^6/uL (3.72-5.28); RED CELL DISTRIBUTION WIDTH 15.6 % (11.5-14.0); WHITE BLOOD COUNT 8.2 10^3/uL (4.0-10.5)
[2017-09-30 21:37] LABS: PARTIAL THROMBOPLASTIN TIME 36.2 SEC (23.5-35.8)
--- NOTE | 2017-09-30 23:00 | PDOC PROGRESS REPORT ---
Subjective Progress Note for:: 09/30/17 Subjective:: She was seen by the bedside, she is still requiring IV fluid, the biggest challenge at the moment is the weakness, she cannot stand on her feet, she does not want to go to alf for rehabilitation, physical therapy is working with her, she may ultimately be discharged home with home PT. Reason For Visit: URINARY RETENTION,ACUTE KIDNEY INJURY Physical Exam Vital Signs: Temp Pulse Resp BP Pulse Ox 100.8 F H 84 19 161/77 H 100 09/30/17 20:26 09/30/17 20:26 09/30/17 20:26 09/30/17 20:26 09/30/17 20:26 Intake & Output 09/29/17 09/30/17 10/01/17 06:59 06:59 06:59 Intake Total 4275 4927 1633 Output Total 2900 5250 600 Balance 1375 -323 1033 Weight 118.6 kg 118.9 kg General appearance: PRESENT: no acute distress Eye exam: PRESENT: PERRLA Respiratory exam: PRESENT: clear to auscultation stephen Cardiovascular exam: PRESENT: +S1, +S2 GI/Abdominal exam: PRESENT: soft Neurological exam: PRESENT: alert Results Laboratory Results: 09/30/17 21:00 09/30/17 21:00 09/30/17 09/30/17 09/30/17 09:30 09:30 21:00 WBC 9.0 8.2 RBC 3.36 L 3.37 L Hgb 9.5 L 9.5 L Hct 29.3 L 29.4 L MCV 87 87 MCH 28.3 28.2 MCHC 32.4 32.4 RDW 15.9 H 15.6 H Plt Count 150 157 Seg Neutrophils % 76.1 Lymphocytes % 11.9 L Monocytes % 9.2 Eosinophils % 2.4 Basophils % 0.4 Absolute Neutrophils 6.8 Absolute Lymphocytes 1.1 Absolute Monocytes 0.8 Absolute Eosinophils 0.2 Absolute Basophils 0.0 Sodium 139.7 Potassium 4.1 Chloride 108 H Carbon Dioxide 23 Anion Gap 9 BUN 14 Creatinine 1.35 H Est GFR ( Amer) 48 L Est GFR (Non-Af Amer) 40 L Glucose 80 Calcium 7.1 L Total Bilirubin 0.6 AST 37 H ALT 39 Alkaline Phosphatase 93 Total Protein 6.3 Albumin 2.9 L 09/30/17 21:00 WBC RBC Hgb Hct MCV MCH MCHC RDW Plt Count Seg Neutrophils % Lymphocytes % Monocytes % Eosinophils % Basophils % Absolute Neutrophils Absolute Lymphocytes Absolute Monocytes Absolute Eosinophils Absolute Basophils Sodium Potassium Chloride Carbon Dioxide Anion Gap BUN Creatinine 1.35 H Est GFR ( Amer) 48 L Est GFR (Non-Af Amer) 40 L Glucose Calcium Total Bilirubin AST ALT Alkaline Phosphatase Total Protein Albumin Impressions: Abdomen/Pelvis CT 09/20/17 00:00 IMPRESSION: 1. GALLSTONES. 2. STABLE SURGICAL CHANGES WITH OSTOMY ON THE RIGHT SIDE OF THE ABDOMEN. 3. OTHER CHRONIC FINDINGS ABOVE. NO OTHER SIGNIFICANT OR ACUTE PROCESS IN THE ABDOMEN OR PELVIS. Chest X-Ray 09/25/17 00:00 IMPRESSION: SATISFACTORY PLACEMENT CENTRAL VENOUS CATHETER WITHOUT COMPLICATION. OTHERWISE STABLE APPEARANCE OF THE CHEST. Knee X-Ray 09/28/17 00:00 IMPRESSION: KNEE PROSTHESIS. OTHERWISE NO ACUTE OR SIGNIFICANT FINDINGS. Assessment & Plan - Diagnosis (1) Acute kidney injury Is this a current diagnosis for this admission?: Yes (2) Metabolic acidosis Is this a current diagnosis for this admission?: Yes (3) Hyperkalemia Is this a current diagnosis for this admission?: Yes (4) Oliguria Is this a current diagnosis for this admission?: Yes (5) Hypotension Qualifiers: Hypotension type: unspecified hypotension type Qualified Code(s): I95.9 - Hypotension, unspecified Is this a current diagnosis for this admission?: Yes (6) Urinary tract infection Qualifiers: Urinary tract infection type: site unspecified Hematuria presence: without hematuria Qualified Code(s): N39.0 - Urinary tract infection, site not specified Is this a current diagnosis for this admission?: Yes (7) UTI due to extended-spectrum beta lactamase (ESBL) producing Escherichia coli Is this a current diagnosis for this admission?: Yes (8) Hypomagnesemia Is this a current diagnosis for this admission?: Yes (9) Weakness of both lower extremities Is this a current diagnosis for this admission?: Yes Plan: physical therapy consultation
[2017-10-01 04:45] LABS: ABSOLUTE EOSINOPHILS # (AUTO) 0.2 10^3/uL (0.0-0.6); ABSOLUTE LYMPHOCYTES (AUTO) 0.9 10^3/uL (0.5-4.7); ABSOLUTE MONOCYTES (AUTO) 0.8 10^3/uL (0.1-1.4); ABSOLUTE NEUT (AUTO) 5.3 10^3/uL (1.7-8.2); BASOPHILS % (AUTO) 0.6 % (0-2); EOSINOPHILS % (AUTO) 2.3 % (0-6); HEMATOCRIT 29.6 % (36.0-47.0); HEMOGLOBIN 9.6 g/dL (12.0-15.5); LYMPHOCYTES % (AUTO) 12.6 % (13-45); MEAN CORPUSCULAR HEMOGLOBIN 28.4 pg (27.0-33.4); MEAN CORPUSCULAR HGB CONC 32.4 g/dL (32.0-36.0); MEAN CORPUSCULAR VOLUME 88 fl (80-97); MONOCYTES % (AUTO) 10.8 % (3-13); PLATELET COUNT 155 10^3/uL (150-450); RED BLOOD COUNT 3.37 10^6/uL (3.72-5.28); RED CELL DISTRIBUTION WIDTH 15.9 % (11.5-14.0); SEGMENTED NEUTROPHILS % (AUTO) 73.7 % (42-78); TOTAL CELLS COUNTED % (AUTO) 100 %; WHITE BLOOD COUNT 7.2 10^3/uL (4.0-10.5)
[2017-10-01 05:11] LABS: ALANINE AMINOTRANSFERASE 37 U/L (9-52); ALBUMIN 2.8 g/dL (3.5-5.0); ALKALINE PHOSPHATASE 102 U/L (38-126); ANION GAP 9 (5-19); ASPARTATE AMINO TRANSFERASE 39 U/L (14-36); BILIRUBIN,DIRECT 0.3 mg/dL (0.0-0.4); BILIRUBIN,TOTAL 0.6 mg/dL (0.2-1.3); BLOOD UREA NITROGEN 12 mg/dL (7-20); CALCIUM 7.7 mg/dL (8.4-10.2); CARBON DIOXIDE 21 mmol/L (22-30); CHLORIDE 112 mmol/L (98-107); GLUCOSE 80 mg/dL (75-110); POTASSIUM 3.8 mmol/L (3.6-5.0); SODIUM 141.9 mmol/L (137-145); TOTAL PROTEIN 6.2 g/dL (6.3-8.2)
[2017-10-01] MEDS: SODIUM BICARBONATE 650 MG TABLET PO SCH ×3 (05:31→21:09)
[2017-10-01] MEDS: GABAPENTIN 300 MG CAPSULE PO SCH ×4 (05:31→23:39)
[2017-10-01] MEDS: HEPARIN SOD (PORCINE) 5,000 UNIT/ML 1 ML SYRINGE SUBCUT SCH ×3 (05:32→21:08)
[2017-10-01] MEDS: NORMAL SALINE 1000 ML 1,000 ML IV PRN ×2 (06:29→23:43)
[2017-10-01] MEDS: RAMIPRIL 10 MG CAPSULE PO SCH (11:29)
[2017-10-01] MEDS: OLOPATADINE HCL 0.1% OPH SOLN 5 ML OU SCH (11:29)
[2017-10-01] MEDS: OXYCODONE HCL IR 5 MG TABLET PO PRN (11:29)
[2017-10-01] MEDS: COLCHICINE 0.6 MG TABLET PO SCH ×2 (11:29→21:09)
[2017-10-01] MEDS: AMLODIPINE BESYLATE 5 MG TABLET PO SCH (11:29)
[2017-10-01] MEDS: METOPROLOL SUCCINATE 50 MG TAB.SR.24H PO SCH (11:30)
[2017-10-01] MEDS: MAGNESIUM OXIDE 400 MG TABLET PO SCH (11:31)
[2017-10-01] MEDS: HYDROMORPHONE HCL INJ/PF 2 MG/ML AMPULE IV PRN (21:09)
--- NOTE | 2017-10-01 21:29 | PDOC PROGRESS REPORT ---
Subjective Progress Note for:: 10/01/17 Subjective:: She was seen by the bedside, she is still requiring IV fluid, the biggest challenge at the moment is the weakness, she cannot stand on her feet, she does not want to [facility], physical therapy is working with her, she may ultimately be discharged home with home PT. Reason For Visit: URINARY RETENTION,ACUTE KIDNEY INJURY Physical Exam Vital Signs: Temp Pulse Resp BP Pulse Ox 98.9 F 76 18 145/75 H 100 10/01/17 20:57 10/01/17 20:57 10/01/17 20:57 10/01/17 20:57 10/01/17 20:57 Intake & Output 09/30/17 10/01/17 10/02/17 06:59 06:59 06:59 Intake Total 4927 3959 537 Output Total 5250 1350 600 Balance -323 2609 -63 Weight 118.9 kg 117.8 kg General appearance: PRESENT: no acute distress Eye exam: PRESENT: PERRLA Respiratory exam: PRESENT: clear to auscultation stephen Cardiovascular exam: PRESENT: +S1, +S2 GI/Abdominal exam: PRESENT: soft Neurological exam: PRESENT: alert, CN II-XII grossly intact Results Laboratory Results: 10/01/17 04:35 10/01/17 04:35 09/30/17 09/30/17 10/01/17 21:00 21:00 04:35 WBC 8.2 7.2 RBC 3.37 L 3.37 L Hgb 9.5 L 9.6 L Hct 29.4 L 29.6 L MCV 87 88 MCH 28.2 28.4 MCHC 32.4 32.4 RDW 15.6 H 15.9 H Plt Count 157 155 Seg Neutrophils % 73.7 Lymphocytes % 12.6 L Monocytes % 10.8 Eosinophils % 2.3 Basophils % 0.6 Absolute Neutrophils 5.3 Absolute Lymphocytes 0.9 Absolute Monocytes 0.8 Absolute Eosinophils 0.2 Absolute Basophils 0.0 Sodium Potassium Chloride Carbon Dioxide Anion Gap BUN Creatinine 1.35 H Est GFR ( Amer) 48 L Est GFR (Non-Af Amer) 40 L Glucose Calcium Total Bilirubin AST ALT Alkaline Phosphatase Total Protein Albumin 10/01/17 04:35 WBC RBC Hgb Hct MCV MCH MCHC RDW Plt Count Seg Neutrophils % Lymphocytes % Monocytes % Eosinophils % Basophils % Absolute Neutrophils Absolute Lymphocytes Absolute Monocytes Absolute Eosinophils Absolute Basophils Sodium 141.9 Potassium 3.8 Chloride 112 H Carbon Dioxide 21 L Anion Gap 9 BUN 12 Creatinine 1.28 H Est GFR ( Amer) 51 L Est GFR (Non-Af Amer) 43 L Glucose 80 Calcium 7.7 L Total Bilirubin 0.6 AST 39 H ALT 37 Alkaline Phosphatase 102 Total Protein 6.2 L Albumin 2.8 L Impressions: Abdomen/Pelvis CT 09/20/17 00:00 IMPRESSION: 1. GALLSTONES. 2. STABLE SURGICAL CHANGES WITH OSTOMY ON THE RIGHT SIDE OF THE ABDOMEN. 3. OTHER CHRONIC FINDINGS ABOVE. NO OTHER SIGNIFICANT OR ACUTE PROCESS IN THE ABDOMEN OR PELVIS. Chest X-Ray 09/25/17 00:00 IMPRESSION: SATISFACTORY PLACEMENT CENTRAL VENOUS CATHETER WITHOUT COMPLICATION. OTHERWISE STABLE APPEARANCE OF THE CHEST. Knee X-Ray 09/28/17 00:00 IMPRESSION: KNEE PROSTHESIS. OTHERWISE NO ACUTE OR SIGNIFICANT FINDINGS. Assessment & Plan - Diagnosis (1) Acute kidney injury Is this a current diagnosis for this admission?: Yes (2) Metabolic acidosis Is this a current diagnosis for this admission?: Yes (3) Hyperkalemia Is this a current diagnosis for this admission?: Yes (4) Oliguria Is this a current diagnosis for this admission?: Yes (5) Hypotension Qualifiers: Hypotension type: unspecified hypotension type Qualified Code(s): I95.9 - Hypotension, unspecified Is this a current diagnosis for this admission?: Yes (6) Urinary tract infection Qualifiers: Urinary tract infection type: site unspecified Hematuria presence: without hematuria Qualified Code(s): N39.0 - Urinary tract infection, site not specified Is this a current diagnosis for this admission?: Yes (7) UTI due to extended-spectrum beta lactamase (ESBL) producing Escherichia coli Is this a current diagnosis for this admission?: Yes (8) Hypomagnesemia Is this a current diagnosis for this admission?: Yes - Plan Summary Plan Summary: continue treatment
[2017-10-02] MEDS: HYDROMORPHONE HCL INJ/PF 2 MG/ML AMPULE IV PRN ×6 (01:09→22:45)
[2017-10-02] MEDS: SODIUM BICARBONATE 650 MG TABLET PO SCH ×3 (05:23→21:23)
[2017-10-02] MEDS: GABAPENTIN 300 MG CAPSULE PO SCH ×4 (05:23→23:45)
[2017-10-02] MEDS: HEPARIN SOD (PORCINE) 5,000 UNIT/ML 1 ML SYRINGE SUBCUT SCH ×3 (05:24→21:24)
[2017-10-02] MEDS: METOPROLOL SUCCINATE 50 MG TAB.SR.24H PO SCH (09:10)
[2017-10-02] MEDS: COLCHICINE 0.6 MG TABLET PO SCH ×2 (09:10→21:23)
[2017-10-02] MEDS: MAGNESIUM OXIDE 400 MG TABLET PO SCH (09:10)
[2017-10-02] MEDS: RAMIPRIL 10 MG CAPSULE PO SCH (09:11)
[2017-10-02] MEDS: AMLODIPINE BESYLATE 5 MG TABLET PO SCH (09:11)
[2017-10-02] MEDS: OLOPATADINE HCL 0.1% OPH SOLN 5 ML OU SCH (09:14)
--- NOTE | 2017-10-02 16:29 | PDOC PROGRESS REPORT ---
Subjective Progress Note for:: 10/02/17 Subjective:: She was seen by the bedside Reason For Visit: URINARY RETENTION,ACUTE KIDNEY INJURY Physical Exam Vital Signs: Temp Pulse Resp BP Pulse Ox 98.6 F 83 18 122/80 99 10/02/17 11:39 10/02/17 14:00 10/02/17 11:39 10/02/17 11:39 10/02/17 11:39 Intake & Output 10/01/17 10/02/17 10/03/17 06:59 06:59 06:59 Intake Total 3959 1867 222 Output Total 1350 1750 1200 Balance 2609 117 -978 Weight 117.8 kg 118.4 kg General appearance: PRESENT: no acute distress, well-developed, well-nourished Head exam: PRESENT: atraumatic, normocephalic Eye exam: PRESENT: conjunctiva pink, EOMI, PERRLA Ear exam: PRESENT: normal external ear exam Mouth exam: PRESENT: moist, tongue midline Neck exam: PRESENT: full ROM Respiratory exam: PRESENT: clear to auscultation stephen Cardiovascular exam: PRESENT: RRR, +S1, +S2 Vascular exam: PRESENT: normal capillary refill GI/Abdominal exam: PRESENT: normal bowel sounds, soft Rectal exam: PRESENT: deferred Neurological exam: PRESENT: alert Psychiatric exam: PRESENT: appropriate affect, normal mood Skin exam: PRESENT: dry, intact, warm Results Laboratory Results: 10/01/17 04:35 10/01/17 04:35 Impressions: Abdomen/Pelvis CT 09/20/17 00:00 IMPRESSION: 1. GALLSTONES. 2. STABLE SURGICAL CHANGES WITH OSTOMY ON THE RIGHT SIDE OF THE ABDOMEN. 3. OTHER CHRONIC FINDINGS ABOVE. NO OTHER SIGNIFICANT OR ACUTE PROCESS IN THE ABDOMEN OR PELVIS. Chest X-Ray 09/25/17 00:00 IMPRESSION: SATISFACTORY PLACEMENT CENTRAL VENOUS CATHETER WITHOUT COMPLICATION. OTHERWISE STABLE APPEARANCE OF THE CHEST. Knee X-Ray 09/28/17 00:00 IMPRESSION: KNEE PROSTHESIS. OTHERWISE NO ACUTE OR SIGNIFICANT FINDINGS. Assessment & Plan - Diagnosis (1) Acute kidney injury Is this a current diagnosis for this admission?: Yes (2) Metabolic acidosis Is this a current diagnosis for this admission?: Yes (3) Hyperkalemia Is this a current diagnosis for this admission?: Yes (4) Oliguria Is this a current diagnosis for this admission?: Yes (5) Hypotension Qualifiers: Hypotension type: unspecified hypotension type Qualified Code(s): I95.9 - Hypotension, unspecified Is this a current diagnosis for this admission?: Yes (6) Urinary tract infection Qualifiers: Urinary tract infection type: site unspecified Hematuria presence: without hematuria Qualified Code(s): N39.0 - Urinary tract infection, site not specified Is this a current diagnosis for this admission?: Yes (7) UTI due to extended-spectrum beta lactamase (ESBL) producing Escherichia coli Is this a current diagnosis for this admission?: Yes (8) Hypomagnesemia Is this a current diagnosis for this admission?: Yes
[2017-10-02] MEDS: NORMAL SALINE 1000 ML 1,000 ML IV PRN (19:10)
[2017-10-03] MEDS: NORMAL SALINE 1000 ML 1,000 ML IV PRN ×4 (01:52→23:14)
[2017-10-03] MEDS: HYDROMORPHONE HCL INJ/PF 2 MG/ML AMPULE IV PRN ×5 (04:23→21:56)
[2017-10-03] MEDS: HEPARIN SOD (PORCINE) 5,000 UNIT/ML 1 ML SYRINGE SUBCUT SCH ×3 (05:37→21:26)
[2017-10-03] MEDS: GABAPENTIN 300 MG CAPSULE PO SCH ×4 (05:37→23:14)
[2017-10-03] MEDS: SODIUM BICARBONATE 650 MG TABLET PO SCH ×3 (05:37→21:25)
[2017-10-03] MEDS: METOPROLOL SUCCINATE 50 MG TAB.SR.24H PO SCH (09:35)
[2017-10-03] MEDS: MAGNESIUM OXIDE 400 MG TABLET PO SCH (09:35)
[2017-10-03] MEDS: COLCHICINE 0.6 MG TABLET PO SCH ×2 (09:35→21:26)
[2017-10-03] MEDS: RAMIPRIL 10 MG CAPSULE PO SCH (09:35)
[2017-10-03] MEDS: AMLODIPINE BESYLATE 5 MG TABLET PO SCH (09:36)
[2017-10-03] MEDS: OLOPATADINE HCL 0.1% OPH SOLN 5 ML OU SCH (09:40)
--- NOTE | 2017-10-03 16:49 | PDOC PROGRESS REPORT ---
Subjective Progress Note for:: 10/03/17 Subjective:: She was seen by the bedside Reason For Visit: URINARY RETENTION,ACUTE KIDNEY INJURY Physical Exam Vital Signs: Temp Pulse Resp BP Pulse Ox 98.8 F 75 18 135/71 H 94 10/03/17 07:25 10/03/17 14:00 10/03/17 07:25 10/03/17 07:25 10/03/17 07:25 Intake & Output 10/02/17 10/03/17 10/04/17 06:59 06:59 06:59 Intake Total 1867 3243 459 Output Total 1750 6411 900 Balance 464 -6725 -532 Weight 118.4 kg 119.2 kg General appearance: PRESENT: no acute distress Eye exam: PRESENT: PERRLA Respiratory exam: PRESENT: clear to auscultation stephen Cardiovascular exam: PRESENT: +S1, +S2 Results Laboratory Results: 10/01/17 04:35 10/01/17 04:35 Impressions: Abdomen/Pelvis CT 09/20/17 00:00 IMPRESSION: 1. GALLSTONES. 2. STABLE SURGICAL CHANGES WITH OSTOMY ON THE RIGHT SIDE OF THE ABDOMEN. 3. OTHER CHRONIC FINDINGS ABOVE. NO OTHER SIGNIFICANT OR ACUTE PROCESS IN THE ABDOMEN OR PELVIS. Chest X-Ray 09/25/17 00:00 IMPRESSION: SATISFACTORY PLACEMENT CENTRAL VENOUS CATHETER WITHOUT COMPLICATION. OTHERWISE STABLE APPEARANCE OF THE CHEST. Knee X-Ray 09/28/17 00:00 IMPRESSION: KNEE PROSTHESIS. OTHERWISE NO ACUTE OR SIGNIFICANT FINDINGS. Assessment & Plan - Diagnosis (1) Acute kidney injury Is this a current diagnosis for this admission?: Yes (2) Metabolic acidosis Is this a current diagnosis for this admission?: Yes (3) Hyperkalemia Is this a current diagnosis for this admission?: Yes (4) Oliguria Is this a current diagnosis for this admission?: Yes (5) Hypotension Qualifiers: Hypotension type: unspecified hypotension type Qualified Code(s): I95.9 - Hypotension, unspecified Is this a current diagnosis for this admission?: Yes (6) Urinary tract infection Qualifiers: Urinary tract infection type: site unspecified Hematuria presence: without hematuria Qualified Code(s): N39.0 - Urinary tract infection, site not specified Is this a current diagnosis for this admission?: Yes (7) UTI due to extended-spectrum beta lactamase (ESBL) producing Escherichia coli Is this a current diagnosis for this admission?: Yes (8) Hypomagnesemia Is this a current diagnosis for this admission?: Yes
[2017-10-03 19:19] LABS: ABSOLUTE EOSINOPHILS # (AUTO) 0.3 10^3/uL (0.0-0.6); ABSOLUTE LYMPHOCYTES (AUTO) 1.1 10^3/uL (0.5-4.7); ABSOLUTE MONOCYTES (AUTO) 0.5 10^3/uL (0.1-1.4); ABSOLUTE NEUT (AUTO) 3.5 10^3/uL (1.7-8.2); BASOPHILS % (AUTO) 0.5 % (0-2); EOSINOPHILS % (AUTO) 5.8 % (0-6); HEMATOCRIT 28.6 % (36.0-47.0); HEMOGLOBIN 9.4 g/dL (12.0-15.5); LYMPHOCYTES % (AUTO) 20.9 % (13-45); MEAN CORPUSCULAR HEMOGLOBIN 28.7 pg (27.0-33.4); MEAN CORPUSCULAR HGB CONC 32.8 g/dL (32.0-36.0); MEAN CORPUSCULAR VOLUME 88 fl (80-97); MONOCYTES % (AUTO) 8.4 % (3-13); PLATELET COUNT 171 10^3/uL (150-450); RED BLOOD COUNT 3.27 10^6/uL (3.72-5.28); RED CELL DISTRIBUTION WIDTH 15.8 % (11.5-14.0); SEGMENTED NEUTROPHILS % (AUTO) 64.4 % (42-78); TOTAL CELLS COUNTED % (AUTO) 100 %; WHITE BLOOD COUNT 5.4 10^3/uL (4.0-10.5)
[2017-10-03 19:33] LABS: ALANINE AMINOTRANSFERASE 37 U/L (9-52); ALBUMIN 2.8 g/dL (3.5-5.0); ALKALINE PHOSPHATASE 121 U/L (38-126); ANION GAP 8 (5-19); ASPARTATE AMINO TRANSFERASE 39 U/L (14-36); BILIRUBIN,DIRECT 0.2 mg/dL (0.0-0.4); BILIRUBIN,TOTAL 0.3 mg/dL (0.2-1.3); BLOOD UREA NITROGEN 9 mg/dL (7-20); CALCIUM 8.2 mg/dL (8.4-10.2); CARBON DIOXIDE 21 mmol/L (22-30); CHLORIDE 112 mmol/L (98-107); GLUCOSE 106 mg/dL (75-110); POTASSIUM 4.3 mmol/L (3.6-5.0); SODIUM 141.3 mmol/L (137-145); TOTAL PROTEIN 6.2 g/dL (6.3-8.2)
[2017-10-04] MEDS: HYDROMORPHONE HCL INJ/PF 2 MG/ML AMPULE IV PRN ×6 (02:48→23:42)
[2017-10-04] MEDS: SODIUM BICARBONATE 650 MG TABLET PO SCH ×3 (06:51→21:32)
[2017-10-04] MEDS: GABAPENTIN 300 MG CAPSULE PO SCH ×4 (06:51→23:42)
[2017-10-04] MEDS: HEPARIN SOD (PORCINE) 5,000 UNIT/ML 1 ML SYRINGE SUBCUT SCH ×3 (06:52→21:32)
[2017-10-04] MEDS: NORMAL SALINE 1000 ML 1,000 ML IV PRN ×2 (06:52→16:37)
[2017-10-04] MEDS: AMLODIPINE BESYLATE 5 MG TABLET PO SCH (09:46)
[2017-10-04] MEDS: MAGNESIUM OXIDE 400 MG TABLET PO SCH (09:48)
[2017-10-04] MEDS: METOPROLOL SUCCINATE 50 MG TAB.SR.24H PO SCH (09:48)
[2017-10-04] MEDS: COLCHICINE 0.6 MG TABLET PO SCH ×2 (09:48→21:32)
[2017-10-04] MEDS: OLOPATADINE HCL 0.1% OPH SOLN 5 ML OU SCH (09:50)
[2017-10-04] MEDS: RAMIPRIL 10 MG CAPSULE PO SCH (09:50)
--- NOTE | 2017-10-04 21:04 | PDOC PROGRESS REPORT ---
Subjective Progress Note for:: 10/04/17 Subjective:: She will probably be discharged tomorrow the biggest challenge at the moment is weakness she will be discharged home with PT Reason For Visit: URINARY RETENTION,ACUTE KIDNEY INJURY Physical Exam Vital Signs: Temp Pulse Resp BP Pulse Ox 98.1 F 75 21 H 161/94 H 99 10/04/17 17:39 10/04/17 17:39 10/04/17 17:39 10/04/17 17:39 10/04/17 17:39 Intake & Output 10/03/17 10/04/17 10/05/17 06:59 06:59 06:59 Intake Total 3243 4815 1735 Output Total 5475 4275 1975 Balance -2232 540 -240 Weight 119.2 kg 119.6 kg General appearance: PRESENT: no acute distress Eye exam: PRESENT: PERRLA Respiratory exam: PRESENT: clear to auscultation stephen Cardiovascular exam: PRESENT: +S1, +S2 GI/Abdominal exam: PRESENT: soft Neurological exam: PRESENT: alert Results Laboratory Results: 10/03/17 19:00 10/03/17 19:00 Impressions: Abdomen/Pelvis CT 09/20/17 00:00 IMPRESSION: 1. GALLSTONES. 2. STABLE SURGICAL CHANGES WITH OSTOMY ON THE RIGHT SIDE OF THE ABDOMEN. 3. OTHER CHRONIC FINDINGS ABOVE. NO OTHER SIGNIFICANT OR ACUTE PROCESS IN THE ABDOMEN OR PELVIS. Chest X-Ray 09/25/17 00:00 IMPRESSION: SATISFACTORY PLACEMENT CENTRAL VENOUS CATHETER WITHOUT COMPLICATION. OTHERWISE STABLE APPEARANCE OF THE CHEST. Knee X-Ray 09/28/17 00:00 IMPRESSION: KNEE PROSTHESIS. OTHERWISE NO ACUTE OR SIGNIFICANT FINDINGS. Assessment & Plan - Diagnosis (1) Acute kidney injury Is this a current diagnosis for this admission?: Yes (2) Metabolic acidosis Is this a current diagnosis for this admission?: Yes (3) Hyperkalemia Is this a current diagnosis for this admission?: Yes (4) Oliguria Is this a current diagnosis for this admission?: Yes (5) Hypotension Qualifiers: Hypotension type: unspecified hypotension type Qualified Code(s): I95.9 - Hypotension, unspecified Is this a current diagnosis for this admission?: Yes (6) Urinary tract infection Qualifiers: Urinary tract infection type: site unspecified Hematuria presence: without hematuria Qualified Code(s): N39.0 - Urinary tract infection, site not specified Is this a current diagnosis for this admission?: Yes (7) UTI due to extended-spectrum beta lactamase (ESBL) producing Escherichia coli Is this a current diagnosis for this admission?: Yes (8) Hypomagnesemia Is this a current diagnosis for this admission?: Yes
[2017-10-05] MEDS: HYDROMORPHONE HCL INJ/PF 2 MG/ML AMPULE IV PRN ×5 (04:39→21:43)
[2017-10-05] MEDS: GABAPENTIN 300 MG CAPSULE PO SCH ×4 (06:32→23:15)
[2017-10-05] MEDS: SODIUM BICARBONATE 650 MG TABLET PO SCH ×3 (06:33→21:42)
[2017-10-05] MEDS: HEPARIN SOD (PORCINE) 5,000 UNIT/ML 1 ML SYRINGE SUBCUT SCH ×3 (06:33→21:42)
[2017-10-05] MEDS: RAMIPRIL 10 MG CAPSULE PO SCH (08:55)
[2017-10-05] MEDS: MAGNESIUM OXIDE 400 MG TABLET PO SCH (08:55)
[2017-10-05] MEDS: AMLODIPINE BESYLATE 5 MG TABLET PO SCH (08:56)
[2017-10-05] MEDS: COLCHICINE 0.6 MG TABLET PO SCH ×2 (08:56→21:42)
[2017-10-05] MEDS: METOPROLOL SUCCINATE 50 MG TAB.SR.24H PO SCH (08:57)
[2017-10-05] MEDS: OLOPATADINE HCL 0.1% OPH SOLN 5 ML OU SCH (09:09)
[2017-10-05 20:57] LABS: ABSOLUTE EOSINOPHILS # (AUTO) 0.3 10^3/uL (0.0-0.6); ABSOLUTE LYMPHOCYTES (AUTO) 1.3 10^3/uL (0.5-4.7); ABSOLUTE MONOCYTES (AUTO) 0.4 10^3/uL (0.1-1.4); ABSOLUTE NEUT (AUTO) 3.8 10^3/uL (1.7-8.2); BASOPHILS % (AUTO) 0.8 % (0-2); EOSINOPHILS % (AUTO) 4.9 % (0-6); HEMATOCRIT 27.3 % (36.0-47.0); HEMOGLOBIN 8.9 g/dL (12.0-15.5); LYMPHOCYTES % (AUTO) 22.4 % (13-45); MEAN CORPUSCULAR HEMOGLOBIN 28.4 pg (27.0-33.4); MEAN CORPUSCULAR HGB CONC 32.4 g/dL (32.0-36.0); MEAN CORPUSCULAR VOLUME 88 fl (80-97); MONOCYTES % (AUTO) 7.5 % (3-13); PLATELET COUNT 154 10^3/uL (150-450); RED BLOOD COUNT 3.12 10^6/uL (3.72-5.28); RED CELL DISTRIBUTION WIDTH 16.1 % (11.5-14.0); SEGMENTED NEUTROPHILS % (AUTO) 64.4 % (42-78); TOTAL CELLS COUNTED % (AUTO) 100 %; WHITE BLOOD COUNT 5.8 10^3/uL (4.0-10.5)
[2017-10-05 21:13] LABS: ANION GAP 6 (5-19); BLOOD UREA NITROGEN 9 mg/dL (7-20); CALCIUM 8.3 mg/dL (8.4-10.2); CARBON DIOXIDE 23 mmol/L (22-30); CHLORIDE 110 mmol/L (98-107); GLUCOSE 152 mg/dL (75-110); POTASSIUM 3.6 mmol/L (3.6-5.0); SODIUM 138.7 mmol/L (137-145)
[2017-10-05 21:25] LABS: MAGNESIUM 0.8 mg/dL (1.6-2.3)
[2017-10-05] MEDS: MAGNESIUM SULFATE/D5W 1 GM/100 ML RTUPB IV SCH ×2 (21:43→23:15)
[2017-10-05] MEDS ORDERED: MAGNESIUM OXIDE 400 MG TABLET PO ONE (22:00)
--- NOTE | 2017-10-05 22:21 | PDOC PROGRESS REPORT ---
Subjective Progress Note for:: 10/05/17 Subjective:: She will probably be discharged tomorrow the biggest challenge at the moment is weakness she will be discharged home with PT Reason For Visit: URINARY RETENTION,ACUTE KIDNEY INJURY Physical Exam Vital Signs: Temp Pulse Resp BP Pulse Ox 99.0 F 75 18 149/77 H 100 10/05/17 15:52 10/05/17 15:52 10/05/17 15:52 10/05/17 15:52 10/05/17 15:52 Intake & Output 10/04/17 10/05/17 10/06/17 06:59 06:59 06:59 Intake Total 4815 2604 1633 Output Total 4275 10682 Balance 540 -88362 1633 Weight 119.6 kg 117.2 kg General appearance: PRESENT: no acute distress Eye exam: PRESENT: PERRLA Respiratory exam: PRESENT: clear to auscultation stephen Cardiovascular exam: PRESENT: +S1, systolic murmur GI/Abdominal exam: PRESENT: soft Neurological exam: PRESENT: alert Results Laboratory Results: 10/05/17 20:40 10/05/17 20:40 10/05/17 10/05/17 20:40 20:40 WBC 5.8 RBC 3.12 L Hgb 8.9 L Hct 27.3 L MCV 88 MCH 28.4 MCHC 32.4 RDW 16.1 H Plt Count 154 Seg Neutrophils % 64.4 Lymphocytes % 22.4 Monocytes % 7.5 Eosinophils % 4.9 Basophils % 0.8 Absolute Neutrophils 3.8 Absolute Lymphocytes 1.3 Absolute Monocytes 0.4 Absolute Eosinophils 0.3 Absolute Basophils 0.0 Sodium 138.7 Potassium 3.6 Chloride 110 H Carbon Dioxide 23 Anion Gap 6 BUN 9 Creatinine 1.08 Est GFR ( Amer) > 60 Est GFR (Non-Af Amer) 52 L Glucose 152 H Calcium 8.3 L Magnesium 0.8 L* Impressions: Abdomen/Pelvis CT 09/20/17 00:00 IMPRESSION: 1. GALLSTONES. 2. STABLE SURGICAL CHANGES WITH OSTOMY ON THE RIGHT SIDE OF THE ABDOMEN. 3. OTHER CHRONIC FINDINGS ABOVE. NO OTHER SIGNIFICANT OR ACUTE PROCESS IN THE ABDOMEN OR PELVIS. Chest X-Ray 09/25/17 00:00 IMPRESSION: SATISFACTORY PLACEMENT CENTRAL VENOUS CATHETER WITHOUT COMPLICATION. OTHERWISE STABLE APPEARANCE OF THE CHEST. Knee X-Ray 09/28/17 00:00 IMPRESSION: KNEE PROSTHESIS. OTHERWISE NO ACUTE OR SIGNIFICANT FINDINGS. Assessment & Plan - Diagnosis (1) Acute kidney injury Is this a current diagnosis for this admission?: Yes (2) Metabolic acidosis Is this a current diagnosis for this admission?: Yes (3) Hyperkalemia Is this a current diagnosis for this admission?: Yes (4) Oliguria Is this a current diagnosis for this admission?: Yes (5) Hypotension Qualifiers: Hypotension type: unspecified hypotension type Qualified Code(s): I95.9 - Hypotension, unspecified Is this a current diagnosis for this admission?: Yes (6) Urinary tract infection Qualifiers: Urinary tract infection type: site unspecified Hematuria presence: without hematuria Qualified Code(s): N39.0 - Urinary tract infection, site not specified Is this a current diagnosis for this admission?: Yes (7) UTI due to extended-spectrum beta lactamase (ESBL) producing Escherichia coli Is this a current diagnosis for this admission?: Yes (8) Hypomagnesemia Is this a current diagnosis for this admission?: Yes
[2017-10-06] MEDS: MAGNESIUM SULFATE/D5W 1 GM/100 ML RTUPB IV SCH (00:46)
[2017-10-06] MEDS: HYDROMORPHONE HCL INJ/PF 2 MG/ML AMPULE IV PRN ×3 (02:18→10:27)
[2017-10-06 05:23] LABS: ANION GAP 9 (5-19); BLOOD UREA NITROGEN 10 mg/dL (7-20); CALCIUM 9.1 mg/dL (8.4-10.2); CARBON DIOXIDE 25 mmol/L (22-30); CHLORIDE 109 mmol/L (98-107); GLUCOSE 67 mg/dL (75-110); MAGNESIUM 1.7 mg/dL (1.6-2.3); POTASSIUM 3.9 mmol/L (3.6-5.0); SODIUM 142.9 mmol/L (137-145)
[2017-10-06] MEDS: HEPARIN SOD (PORCINE) 5,000 UNIT/ML 1 ML SYRINGE SUBCUT SCH (06:04)
[2017-10-06] MEDS: SODIUM BICARBONATE 650 MG TABLET PO SCH (06:04)
[2017-10-06] MEDS: GABAPENTIN 300 MG CAPSULE PO SCH ×2 (06:04→12:24)
[2017-10-06] MEDS: MAGNESIUM OXIDE 400 MG TABLET PO SCH (09:06)
[2017-10-06] MEDS: OLOPATADINE HCL 0.1% OPH SOLN 5 ML OU SCH (09:06)
[2017-10-06] MEDS: METOPROLOL SUCCINATE 50 MG TAB.SR.24H PO SCH (09:06)
[2017-10-06] MEDS: RAMIPRIL 10 MG CAPSULE PO SCH (09:06)
[2017-10-06] MEDS: COLCHICINE 0.6 MG TABLET PO SCH (09:06)
[2017-10-06] MEDS: AMLODIPINE BESYLATE 5 MG TABLET PO SCH (09:06)
[2017-10-06] MEDS ORDERED: MAGNESIUM OXIDE 400 MG TABLET PO SCH (10:00)
[2017-10-06 13:31] VITALS: BP 145/91
--- NOTE | 2017-10-07 18:35 | PDOC DISCHARGE SUMMARY ---
General - Admit/Disc Date/PCP Admission Date/Primary Care Provider: 09/20/17 14:24 LISA MATA MD Discharge Date: 10/06/17 - Discharge Diagnosis (1) Acute kidney injury Is this a current diagnosis for this admission?: Yes (2) Metabolic acidosis Is this a current diagnosis for this admission?: Yes (3) Hyperkalemia Is this a current diagnosis for this admission?: Yes (4) Oliguria Is this a current diagnosis for this admission?: Yes (5) Hypotension Is this a current diagnosis for this admission?: Yes (6) Urinary tract infection Is this a current diagnosis for this admission?: Yes (7) UTI due to extended-spectrum beta lactamase (ESBL) producing Escherichia coli Is this a current diagnosis for this admission?: Yes (8) Hypomagnesemia Is this a current diagnosis for this admission?: Yes - Additional Information Resuscitation Status: Full Code Discharge Diet: As Tolerated Discharge Activity: Activity As Tolerated, Balance Activity w/Rest, Slowly Increase Activity Home Medications: Albuterol Sulfate [Proair HFA] 2 puff IH Q4HP PRN 09/20/17 Aspirin [Ecotrin 81 mg EC Tablet] 81 mg PO DAILY 09/20/17 Betamethasone Dipropionate [Diprosone Cream] 1 applic TP Q12HP PRN 09/20/17 Clotrimazole [Lotrimin AF] 1 applic TP Q12HP PRN 09/20/17 Cyclobenzaprine HCl [Flexeril 10 mg Tablet] 10 mg PO TIDP PRN 09/20/17 Exenatide Microspheres [Bydureon Pen] 2 mg SQ KYLE@1000 09/20/17 Gabapentin [Neurontin] 600 mg PO Q6 09/20/17 Glipizide [Glipizide Xl] 5 mg PO DAILY 09/20/17 Insulin Aspart [Novolog Flexpen] 12 unit SUBCUT TIDP PRN 09/20/17 Insulin Glargine,Hum.rec.anlog [Lantus Solostar] 60 unit SQ BID 09/20/17 Linagliptin [Tradjenta] 5 mg PO DAILY 09/20/17 Metoprolol Succinate [Toprol Xl 50 mg Tab.sr] 50 mg PO DAILY 09/20/17 Nystatin [Mycostatin Topical Powder 15 gm] 1 applic TP Q12HP PRN 09/20/17 Oxycodone HCl [Oxycodone HCl 10 MG Tablet] 10 mg PO BIDP PRN 09/20/17 Oxymorphone HCl [Opana ER] 10 mg PO Q8 09/20/17 Pioglitazone HCl [Actos] 30 mg PO DAILY 09/20/17 Ramipril [Altace 10 mg Capsule] 10 mg PO DAILY 09/20/17 Sodium Bicarbonate [Sodium Bicarbonate 650 mg Tablet] 650 mg PO TID 09/20/17 History of Present Illness History of Present Illness: RANDEE VELÁSQUEZ is a 61 year old female, She came to the office for evaluation of diminished urinary output she has a high output ileostomy bag, she has had multiple admissions for the management of acute kidney injury due to dehydration ,with this background in mind she was admitted directly from the office into the hospital for evaluation. There was no bed available she has to go to the emergency room to be admitted the blood work showed acute kidney injury associated with metabolic acidosis and hyperkalemia Hospital Course Hospital Course: Patient was admitted for the management of acute kidney injury associated with metabolic acidosis, electrolyte derangement, hyperkalemia. She has high output ileostomy bag, this was managed with sodium bicarbonate infusion she also had ESBL E. coli UTI treated with IV ertapenem. Hospital course was prolonged, it took awhile in correcting the electrolytes and acidosis, this was ultimately corrected the kidney function is back to normal. She also required Dilaudid for pain control Physical Exam Vital Signs: Temp Pulse Resp BP Pulse Ox 97.5 F 107 H 20 145/91 H 99 10/06/17 14:11 10/06/17 14:11 10/06/17 14:11 10/06/17 14:11 10/06/17 14:11 Intake & Output 10/06/17 10/07/17 10/08/17 06:59 06:59 06:59 Intake Total 3224 Balance 3224 Weight 115.1 kg General appearance: PRESENT: no acute distress, well-developed, well-nourished Head exam: PRESENT: atraumatic, normocephalic Eye exam: PRESENT: conjunctiva pink, EOMI, PERRLA Ear exam: PRESENT: normal external ear exam Mouth exam: PRESENT: moist, tongue midline Neck exam: PRESENT: full ROM Cardiovascular exam: PRESENT: RRR, +S1, +S2 Pulses: PRESENT: normal dorsalis pedis pul, +2 pedal pulses bilateral Vascular exam: PRESENT: normal capillary refill GI/Abdominal exam: PRESENT: normal bowel sounds, soft Rectal exam: PRESENT: deferred Neurological exam: PRESENT: alert, awake, oriented to person, oriented to place , oriented to time, oriented to situation, CN II-XII grossly intact Psychiatric exam: PRESENT: appropriate affect, normal mood Skin exam: PRESENT: dry, intact, warm Results Laboratory Results: 10/05/17 20:40 10/06/17 04:36 Impressions: Abdomen/Pelvis CT 09/20/17 00:00 IMPRESSION: 1. GALLSTONES. 2. STABLE SURGICAL CHANGES WITH OSTOMY ON THE RIGHT SIDE OF THE ABDOMEN. 3. OTHER CHRONIC FINDINGS ABOVE. NO OTHER SIGNIFICANT OR ACUTE PROCESS IN THE ABDOMEN OR PELVIS. Chest X-Ray 09/25/17 00:00 IMPRESSION: SATISFACTORY PLACEMENT CENTRAL VENOUS CATHETER WITHOUT COMPLICATION. OTHERWISE STABLE APPEARANCE OF THE CHEST. Knee X-Ray 09/28/17 00:00 IMPRESSION: KNEE PROSTHESIS. OTHERWISE NO ACUTE OR SIGNIFICANT FINDINGS.
== END 2017-10-06 14:56 | disposition home or self-care (01) | DRG 683 ==
LOC: ER 14:16 → EH 14:24 → 4W 09-21 11:26 → 3N 09-21 21:20
PROVIDERS: ADMIT Internal Medicine; ATTEND Internal Medicine
PROC: 02HV33Z Insertion of Infusion Device into Superior Vena Cava, Percutaneous Approach (ICD-10-PCS; principal; 2017-09-25)
DX: N17.9 Acute kidney failure, unspecified (principal); E87.2 Acidosis; Z68.42 Body mass index [BMI] 45.0-49.9, adult; N39.0 Urinary tract infection, site not specified; E87.5 Hyperkalemia; B96.20 Unspecified Escherichia coli [E. coli] as the cause of diseases classified elsewhere; R33.9 Retention of urine, unspecified; I95.9 Hypotension, unspecified; E66.01 Morbid (severe) obesity due to excess calories; H10.13 Acute atopic conjunctivitis, bilateral; Z93.2 Ileostomy status; E11.42 Type 2 diabetes mellitus with diabetic polyneuropathy; E83.42 Hypomagnesemia; I10 Essential (primary) hypertension; I48.91 Unspecified atrial fibrillation; K21.9 Gastro-esophageal reflux disease without esophagitis; R34 Anuria and oliguria; Z88.6 Allergy status to analgesic agent; Z88.1 Allergy status to other antibiotic agents; I25.10 Atherosclerotic heart disease of native coronary artery without angina pectoris; Z79.4 Long term (current) use of insulin; Z85.528 Personal history of other malignant neoplasm of kidney; Z95.5 Presence of coronary angioplasty implant and graft; I25.2 Old myocardial infarction; Z96.652 Presence of left artificial knee joint; Z79.899 Other long term (current) drug therapy
CPT/HCPCS: 36415; 71045; 74176; 80048; 80053; 81001; 82565; 82803; 82962; 83605; 83735; 85025; 85027; 85610; 85730; 87040; 87086; 87088; 87186; 93005; 93010; C1751; G8978-GP; G8979-GP; J0610; J0696; J1170; J1265; J1335; J1642; J1644; J1815; J3475; J3490; J7030; J7060

== ENCOUNTER 2017-10-13 22:09 | Inpatient (IN) | payer MEDICARE, MEDICAID ==
--- NOTE | 2017-10-13 23:20 | ER Document Report ---
ED Medical Screen (RME) - General Chief Complaint: abnormal labs Stated Complaint: ABNORMAL LAB WORK Time Seen by Provider: 10/13/17 23:18 Mode of Arrival: Ambulatory Information source: Patient Notes: 61-year-old female presented to the ED stating that Dr. Barakat called her and told her to come to the emergency room to get admitted. He stated that her labs that he took yesterday were "off. She states she has a history of diabetes type 2 blood pressure and kidney disease. She states she does not know what labs were off. She states she was just told to come to the emergency room to get admitted. I have greeted and performed a rapid initial assessment of this patient. A comprehensive ED assessment and evaluation of the patient, analysis of test results and completion of medical decision making process will be conducted by an additional ED providers. TRAVEL OUTSIDE OF THE [place] IN LAST 30 DAYS: No - Related Data Allergies/Adverse Reactions: ciprofloxacin [From Cipro] Allergy (Severe, Verified 08/17/17 13:55) Hallucinations morphine [Morphine] Allergy (Unknown, Verified 08/17/17 13:55) Past Medical History - Social History Chew tobacco use (# tins/day): No Frequency of alcohol use: None Drug Abuse: None - Past Medical History Cardiac Medical History: Reports: Hx Atrial Fibrillation, Hx Coronary Artery Disease, Hx DVT, Hx Heart Attack - 2002, Hx Hypercholesterolemia, Hx Hypertension Pulmonary Medical History: Reports: Hx Pneumonia - 2006 Endocrine Medical History: Reports: Hx Diabetes Mellitus Type 2 Renal/ Medical History: Reports: Hx Ovarian Cysts, Hx Renal Insufficiency. Denies: Hx Peritoneal Dialysis Malignancy Medical History: Reports: Hx Renal (Kidney) Cancer GI Medical History: Reports: Hx Gastroesophageal Reflux Disease, Hx Hiatal Hernia, Hx Irritable Bowel, Hx Ulcer Musculoskeltal Medical History: Reports Hx Arthritis - Back, Knees Psychiatric Medical History: Denies: Hx Depression Traumatic Medical History: Reports: Hx Fractures Past Surgical History: Reports: Hx Abdominal Surgery - COLOSTOMY. INTESTINAL RUPTURE, Hx Bowel Surgery - COLECTOMY/ileostomy, Hx Cardiac Catheterization, Hx Cardiac Surgery - STENTS, Hx Colostomy, Hx Coronary Stent, Hx Hysterectomy, Hx Ileostomy, Hx Orthopedic Surgery - L knee replacement, right ankle pin - Immunizations Immunizations up to date: Yes Hx Diphtheria, Pertussis, Tetanus Vaccination: No History of Influenza Vaccine for 06/2017 Season: Yes Influenza Administration Date for 06/2017 Season: 06/06/17
[2017-10-14 00:53] LABS: ABSOLUTE BASOPHILS # (AUTO) 0.1 10^3/uL (0.0-0.2); ABSOLUTE EOSINOPHILS # (AUTO) 0.3 10^3/uL (0.0-0.6); ABSOLUTE MONOCYTES (AUTO) 0.9 10^3/uL (0.1-1.4); ABSOLUTE NEUT (AUTO) 6.5 10^3/uL (1.7-8.2); BASOPHILS % (AUTO) 0.6 % (0-2); EOSINOPHILS % (AUTO) 2.6 % (0-6); HEMATOCRIT 31.1 % (36.0-47.0); HEMOGLOBIN 10.4 g/dL (12.0-15.5); LYMPHOCYTES % (AUTO) 21.1 % (13-45); MEAN CORPUSCULAR HEMOGLOBIN 28.4 pg (27.0-33.4); MEAN CORPUSCULAR HGB CONC 33.4 g/dL (32.0-36.0); MEAN CORPUSCULAR VOLUME 85 fl (80-97); PLATELET COUNT 342 10^3/uL (150-450); RED BLOOD COUNT 3.65 10^6/uL (3.72-5.28); RED CELL DISTRIBUTION WIDTH 16.4 % (11.5-14.0); SEGMENTED NEUTROPHILS % (AUTO) 66.7 % (42-78); TOTAL CELLS COUNTED % (AUTO) 100 %; WHITE BLOOD COUNT 9.7 10^3/uL (4.0-10.5)
[2017-10-14 01:04] LABS: ALANINE AMINOTRANSFERASE 67 U/L (9-52); ALBUMIN 4.5 g/dL (3.5-5.0); ALKALINE PHOSPHATASE 98 U/L (38-126); ASPARTATE AMINO TRANSFERASE 66 U/L (14-36); BILIRUBIN,DIRECT 0.5 mg/dL (0.0-0.4); BILIRUBIN,TOTAL 0.5 mg/dL (0.2-1.3); BLOOD UREA NITROGEN 73 mg/dL (7-20); CALCIUM 8.6 mg/dL (8.4-10.2); CARBON DIOXIDE 15 mmol/L (22-30); CHLORIDE 89 mmol/L (98-107); CREATINE KINASE 306 U/L (30-135); GLUCOSE 64 mg/dL (75-110); LIPASE 249.4 U/L (23-300); SODIUM 124.3 mmol/L (137-145); TOTAL PROTEIN 8.8 g/dL (6.3-8.2)
[2017-10-14 01:29] LABS: CREATINE KINASE MB 4.08 ng/mL (<4.55); TROPONIN I 0.029 ng/mL
[2017-10-14 01:30] LABS: ANION GAP 20 (5-19)
[2017-10-14 01:31] LABS: POTASSIUM 6.4 mmol/L (3.6-5.0)
[2017-10-14] MEDS ORDERED: NORMAL SALINE 1000 ML 1,000 ML IV ONE ×2 (01:57→04:36)
[2017-10-14] MEDS ORDERED: SODIUM BICARBONATE 8.4% INJ 50 MEQ/50 ML DISP.SYRIN IV ONE (01:58)
[2017-10-14] MEDS ORDERED: DEXTROSE 50%-WATER 25 GM/50 ML DISP.SYRIN IV ONE (01:58)
[2017-10-14] MEDS ORDERED: INSULIN REG, HUMAN 100 UNIT/ML 3 ML VIAL (PYX) IV ONE (01:59)
[2017-10-14] MEDS ORDERED: CALCIUM GLUCONATE 1000 MG/10 ML INJ IV ONE (01:59)
--- NOTE | 2017-10-14 02:22 | ER Document Report ---
ED General - General Chief Complaint: Abnormal Lab Results Stated Complaint: ABNORMAL LAB WORK Time Seen by Provider: 10/13/17 23:18 Mode of Arrival: Ambulatory Notes: Patient is a 61-year-old female is well-known to her ED. She has a history of recurring acute renal failure due to her high output fistula. She is recent discharge from hospital for the same and had a routine follow-up with Dr. Barakat. He did labs in her kidney function came back abnormal and therefore she was referred to the ER. She currently says that she has no symptoms except for some back and leg pain which she says is chronic and unchanged. No recent fevers or infections. No vomiting. She has urinated twice today but has been less than typical. No social abdominal pain. TRAVEL OUTSIDE OF THE [place] IN LAST 30 DAYS: No - Related Data Allergies/Adverse Reactions: ciprofloxacin [From Cipro] Allergy (Severe, Verified 08/17/17 13:55) Hallucinations morphine [Morphine] Allergy (Unknown, Verified 08/17/17 13:55) Past Medical History - General Information source: Patient - Social History Smoking Status: Never Smoker Chew tobacco use (# tins/day): No Frequency of alcohol use: None Drug Abuse: None Family History: Reviewed & Not Pertinent, Hypertension Patient has suicidal ideation: No Patient has homicidal ideation: No - Past Medical History Cardiac Medical History: Reports: Hx Atrial Fibrillation, Hx Coronary Artery Disease, Hx DVT, Hx Heart Attack - 2002, Hx Hypercholesterolemia, Hx Hypertension Pulmonary Medical History: Reports: Hx Pneumonia - 2006 Endocrine Medical History: Reports: Hx Diabetes Mellitus Type 2 Renal/ Medical History: Reports: Hx Ovarian Cysts, Hx Renal Insufficiency. Denies: Hx Peritoneal Dialysis Malignancy Medical History: Reports: Hx Renal (Kidney) Cancer GI Medical History: Reports: Hx Gastroesophageal Reflux Disease, Hx Hiatal Hernia, Hx Irritable Bowel, Hx Ulcer Musculoskeltal Medical History: Reports Hx Arthritis - Back, Knees Psychiatric Medical History: Denies: Hx Depression Traumatic Medical History: Reports: Hx Fractures Past Surgical History: Reports: Hx Abdominal Surgery - COLOSTOMY. INTESTINAL RUPTURE, Hx Bowel Surgery - COLECTOMY/ileostomy, Hx Cardiac Catheterization, Hx Cardiac Surgery - STENTS, Hx Colostomy, Hx Coronary Stent, Hx Hysterectomy, Hx Ileostomy, Hx Orthopedic Surgery - L knee replacement, right ankle pin - Immunizations Immunizations up to date: Yes Hx Diphtheria, Pertussis, Tetanus Vaccination: No Hx Pneumococcal Vaccination: 09/19/13 Review of Systems - Review of Systems Notes: My Normal Review Basic REVIEW OF SYSTEMS: CONSTITUTIONAL : Denies fever, chills, or sweats. Denies recent illness. EENT: Denies eye, ear, throat, or mouth pain or symptoms. Denies nasal or sinus congestion. RESPIRATORY: Denies cough, cold, or chest congestion. Denies shortness of breath, difficulty breathing, or wheezing. GASTROINTESTINAL: Denies abdominal pain. Denies nausea, vomiting, or diarrhea. GENITOURINARY: Some decreased urination. MUSCULOSKELETAL: Denies neck or back pain or joint pain or swelling. SKIN: Denies rash or skin lesions. NEUROLOGICAL: Denies altered mental status or loss of consciousness. Denies headache. Denies weakness or paralysis or loss of use of either side. Denies problems with gait or speech. Denies sensory or motor loss. ALL OTHER SYSTEMS REVIEWED AND NEGATIVE. Physical Exam - Vital signs Vitals: Resp Pulse Ox 31 H 94 10/14/17 02:21 10/14/17 02:21 - Notes Notes: General Appearance: Well nourished, alert, cooperative, no acute distress, no obvious discomfort. Well-appearing. Vitals: reviewed, See vital signs table. Head: no swelling or tenderness to the head Eyes: PERRL, EOMI, Conjuctiva clear Mouth: No decreasd moisture Lungs: No wheezing, No rales, No rhonci, No accessory muscle use, good air exchange bilaterally. Heart: Normal rate, Regular rythm, No murmur, no rub Abdomen: Normal BS, soft, No rigidity, No abdominal tenderness, No guarding, no rebound, no abdominal masses, no organomegaly. Colostomy has yellowish watery drainage. No gross blood in colostomy bag. Extremities: strength 5/5 in all extremities, good pulses in all extremities, no swelling or tenderness in the extremities, no edema. Skin: warm, dry, appropriate color, no rash Neuro: speech clear, oriented x 3, normal affect, responds appropriately to questions. Course - Re-evaluation Re-evalutation: 10/14/17 06:23 Patient is well-appearing. I have spoken with Dr. Barakat. I informed the patient's lab results. He is very familiar with the patient history the patient several times for this. He agrees to accept the patient for admission. I have started her on a bicarb drip. Her potassium is down in the force. Clinically she looks well. Patient will be admitted for further treatment of her acute renal failure. Dictation of this chart was performed using voice recognition software; therefore, there may be some unintended grammatical errors. - Vital Signs Vital signs: Temp Pulse Resp BP Pulse Ox 18 106/67 93 10/14/17 07:56 10/14/17 05:30 10/14/17 07:00 - Laboratory Result Diagrams: 10/14/17 00:40 10/14/17 05:19 Laboratory results interpreted by me: 10/14/17 10/14/17 10/14/17 00:40 00:40 04:05 RBC 3.65 L Hgb 10.4 L Hct 31.1 L RDW 16.4 H Sodium 124.3 L Potassium 6.4 H* Chloride 89 L Carbon Dioxide 15 L Anion Gap 20 H BUN 73 H Creatinine 10.73 H Est GFR ( Amer) 4 L Est GFR (Non-Af Amer) 4 L Glucose 64 L Calcium Direct Bilirubin 0.5 H AST 66 H ALT 67 H Creatine Kinase 306 H Total Protein 8.8 H Urine Protein 30 H Urine Blood MODERATE H Ur Leukocyte Esterase SMALL H 10/14/17 05:19 RBC Hgb Hct RDW Sodium 125.3 L Potassium Chloride 90 L Carbon Dioxide 18 L Anion Gap BUN 73 H Creatinine 10.18 H Est GFR ( Amer) 5 L Est GFR (Non-Af Amer) 4 L Glucose 56 L Calcium 7.7 L Direct Bilirubin AST ALT Creatine Kinase Total Protein Urine Protein Urine Blood Ur Leukocyte Esterase - EKG Interpretation by Me Additional EKG results interpreted by me: 10/14/17 03:35 EKG is reviewed and interpreted by me. EKG shows sinus rhythm with rate of 97 bpm. Patient has mild concave up ST segment elevation in leads I and II which are unchanged comparison to her previous EKG from February 18, 2018. No cervical ST segment depression. RI interval is slightly prolonged. QRS duration QTc intervals are within normal range. Discharge - Discharge Clinical Impression: Hyperkalemia Acute renal failure Qualifiers: Acute renal failure type: unspecified Qualified Code(s): N17.9 - Acute kidney failure, unspecified Condition: Stable Disposition: ADMITTED INPATIENT Admitting Provider: Yuval Unit Admitted: [facility]
[2017-10-14] MEDS ORDERED: HYDROMORPHONE HCL INJ/PF 2 MG/ML AMPULE IV ONE (03:36)
[2017-10-14 04:24] LABS: AMORPHOUS SEDIMENT,URINE TRACE /HPF; APPEARANCE,URINE CLOUDY; BILIRUBIN,URINE NEGATIVE (NEGATIVE); COLOR,URINE YELLOW; GLUCOSE, URINE NEGATIVE (NEGATIVE); KETONES,URINE NEGATIVE (NEGATIVE); LEUKOCYTE ESTERASE,URINE SMALL (NEGATIVE); NITRITE,URINE NEGATIVE (NEGATIVE); PROTEIN,URINE 30 mg/dL (NEGATIVE); URINE SPECIFIC GRAVITY 1.013; UROBILINOGEN,URINE NEGATIVE mg/dL (<2.0)
[2017-10-14 05:41] LABS: ANION GAP 17 (5-19); BLOOD UREA NITROGEN 73 mg/dL (7-20); CALCIUM 7.7 mg/dL (8.4-10.2); CARBON DIOXIDE 18 mmol/L (22-30); CHLORIDE 90 mmol/L (98-107); GLUCOSE 56 mg/dL (75-110); SODIUM 125.3 mmol/L (137-145)
[2017-10-14 05:51] LABS: POTASSIUM 4.9 mmol/L (3.6-5.0)
[2017-10-14] MEDS ORDERED: DEXTROSE 5%-WATER 1000 ML 1,000 ML with SODIUM BICARBONATE 150 MEQ IV PRN ×2 (06:10)
[2017-10-14] MEDS ORDERED: SODIUM BICARBONATE 8.4% INJ 50 MEQ/50 ML DISP.SYRIN ONE ×2 (06:28→06:29)
--- NOTE | 2017-10-14 09:22 | EKG REPORT ---
SEVERITY:- ABNORMAL ECG - SINUS RHYTHM FIRST DEGREE AV BLOCK LVH BY VOLTAGE PROBABLE INFERIOR INFARCT, AGE INDETERMINATE : Confirmed by: Jaqui Marquis 14-Oct-2017 09:21:23
[2017-10-14 10:11] LABS: HEMOGLOBIN 9.5 g/dL (12.0-15.5); MEAN CORPUSCULAR HEMOGLOBIN 28.1 pg (27.0-33.4); MEAN CORPUSCULAR HGB CONC 32.9 g/dL (32.0-36.0); MEAN CORPUSCULAR VOLUME 86 fl (80-97); PLATELET COUNT 254 10^3/uL (150-450); RED BLOOD COUNT 3.39 10^6/uL (3.72-5.28); RED CELL DISTRIBUTION WIDTH 16.2 % (11.5-14.0); WHITE BLOOD COUNT 7.1 10^3/uL (4.0-10.5)
[2017-10-14 10:21] LABS: INTERNATIONAL RATION (INR) 1.17; PROTHROMBIN TIME 15.7 SEC (11.4-15.4)
[2017-10-14 10:38] LABS: PHOSPHORUS 8.5 mg/dL (2.5-4.5)
[2017-10-14 10:39] LABS: CREATINE KINASE 271 U/L (30-135)
[2017-10-14 10:55] LABS: FREE T4 (FREE THYROXINE) 1.27 ng/dL (0.78-2.19)
[2017-10-14 10:57] LABS: CREATINE KINASE MB 3.99 ng/mL (<4.55); TROPONIN I 0.032 ng/mL
[2017-10-14 11:09] LABS: THYROID STIMULATING HORMONE 0.23 uIU/mL (0.47-4.68)
[2017-10-14] MEDS: HYDROMORPHONE HCL INJ/PF 2 MG/ML AMPULE IV PRN ×3 (11:13→20:22)
[2017-10-14] MEDS: HEPARIN SOD (PORCINE) 5,000 UNIT/ML 1 ML SYRINGE SUBCUT SCH ×2 (15:16→22:06)
[2017-10-14] MEDS: DEXTROSE 5%-WATER 1000 ML 1,000 ML with SODIUM BICARBONATE 150 MEQ IV PRN ×2 (16:47)
[2017-10-14 18:04] LABS: CREATINE KINASE MB 3.65 ng/mL (<4.55)
[2017-10-14 18:11] LABS: TROPONIN I 0.021 ng/mL
[2017-10-14] MEDS ORDERED: ALBUTEROL SULFATE HFA (90 MCG/PUFF) 8 GM MDI (1 MDI/ER DISP) IH PRN (18:23)
[2017-10-14] MEDS ORDERED: (PENDING PHARMACY ID) (Pravastatin Sodium [Pravachol] 40 MG) PO SCH (18:30)
[2017-10-14] MEDS ORDERED: INSULIN GLARGINE,HUM.REC.ANLOG 300 UNIT/3 ML INSULN.PEN SUBCUT SCH (18:30)
[2017-10-14] MEDS ORDERED: INSULIN ASPART 12 UNIT SQ SCH (18:30)
[2017-10-14] MEDS ORDERED: SODIUM BICARBONATE 650 MG TABLET PO SCH (18:30)
[2017-10-14] MEDS ORDERED: ALBUTEROL SULFATE HFA (90 MCG/PUFF) 200 PUFF/8.5 GM MDI IH PRN (18:46)
[2017-10-14] MEDS ORDERED: GLIPIZIDE XL 5 MG TAB.ER.24 PO ONE (19:00)
[2017-10-14] MEDS ORDERED: ASPIRIN 81 MG TABLET, CHEWABLE PO ONE (19:00)
[2017-10-14] MEDS ORDERED: MAGNESIUM OXIDE 400 MG TABLET PO ONE (19:00)
[2017-10-14] MEDS ORDERED: GABAPENTIN 300 MG CAPSULE PO ONE (19:00)
[2017-10-14] MEDS ORDERED: SODIUM BICARBONATE 650 MG TABLET PO ONE (19:30)
[2017-10-14] MEDS ORDERED: FEBUXOSTAT 80 MG TABLET PO ONE (19:30)
[2017-10-14] MEDS ORDERED: INSULIN LISPRO 100 UNIT/ML 3 ML VIAL SUBCUT ONE (19:30)
[2017-10-14 21:45] LABS: CREATINE KINASE MB 3.46 ng/mL (<4.55); TROPONIN I 0.019 ng/mL
[2017-10-14] MEDS: INSULIN GLARGINE,HUM.REC.ANLOG 1,000 UNIT/10 ML UNIT SUBCUT SCH (22:06)
[2017-10-14] MEDS: ATORVASTATIN CALCIUM 10 MG TABLET PO SCH (22:07)
[2017-10-14] MEDS: CYCLOBENZAPRINE HCL 10 MG TABLET PO SCH (22:07)
[2017-10-14] MEDS: CLOTRIMAZOLE 1% TOPICAL SOLN 10 ML TP SCH (22:13)
[2017-10-14 22:47] LABS: AMORPHOUS SEDIMENT,URINE TRACE /HPF; APPEARANCE,URINE SLIGHTLY-CLOUDY; BILIRUBIN,URINE NEGATIVE (NEGATIVE); COLOR,URINE YELLOW; GLUCOSE, URINE NEGATIVE (NEGATIVE); KETONES,URINE NEGATIVE (NEGATIVE); LEUKOCYTE ESTERASE,URINE TRACE (NEGATIVE); NITRITE,URINE NEGATIVE (NEGATIVE); PROTEIN,URINE NEGATIVE (NEGATIVE); URINE SPECIFIC GRAVITY 1.008; UROBILINOGEN,URINE NEGATIVE mg/dL (<2.0)
[2017-10-15] MEDS: GABAPENTIN 300 MG CAPSULE PO SCH ×4 (00:38→17:51)
[2017-10-15] MEDS: DEXTROSE 5%-WATER 1000 ML 1,000 ML with SODIUM BICARBONATE 150 MEQ IV PRN ×6 (00:38→20:17)
[2017-10-15] MEDS: HYDROMORPHONE HCL INJ/PF 2 MG/ML AMPULE IV PRN ×6 (00:39→22:30)
[2017-10-15] MEDS: CYCLOBENZAPRINE HCL 10 MG TABLET PO SCH ×3 (05:17→22:30)
[2017-10-15] MEDS: HEPARIN SOD (PORCINE) 5,000 UNIT/ML 1 ML SYRINGE SUBCUT SCH ×3 (05:17→22:30)
[2017-10-15 06:34] LABS: ABSOLUTE EOSINOPHILS # (AUTO) 0.1 10^3/uL (0.0-0.6); ABSOLUTE LYMPHOCYTES (AUTO) 0.9 10^3/uL (0.5-4.7); ABSOLUTE MONOCYTES (AUTO) 0.6 10^3/uL (0.1-1.4); ABSOLUTE NEUT (AUTO) 2.8 10^3/uL (1.7-8.2); BASOPHILS % (AUTO) 0.4 % (0-2); EOSINOPHILS % (AUTO) 2.3 % (0-6); HEMATOCRIT 25.2 % (36.0-47.0); HEMOGLOBIN 8.4 g/dL (12.0-15.5); LYMPHOCYTES % (AUTO) 20.3 % (13-45); MEAN CORPUSCULAR HEMOGLOBIN 28.2 pg (27.0-33.4); MEAN CORPUSCULAR HGB CONC 33.4 g/dL (32.0-36.0); MEAN CORPUSCULAR VOLUME 85 fl (80-97); MONOCYTES % (AUTO) 14.4 % (3-13); PLATELET COUNT 216 10^3/uL (150-450); RED BLOOD COUNT 2.99 10^6/uL (3.72-5.28); RED CELL DISTRIBUTION WIDTH 16.1 % (11.5-14.0); SEGMENTED NEUTROPHILS % (AUTO) 62.6 % (42-78); TOTAL CELLS COUNTED % (AUTO) 100 %; WHITE BLOOD COUNT 4.5 10^3/uL (4.0-10.5)
[2017-10-15 06:50] LABS: ALANINE AMINOTRANSFERASE 53 U/L (9-52); ALBUMIN 3.4 g/dL (3.5-5.0); ALKALINE PHOSPHATASE 79 U/L (38-126); AMYLASE 124 U/L (30-110); ANION GAP 13 (5-19); ASPARTATE AMINO TRANSFERASE 58 U/L (14-36); BILIRUBIN,DIRECT 0.3 mg/dL (0.0-0.4); BILIRUBIN,TOTAL 0.3 mg/dL (0.2-1.3); BLOOD UREA NITROGEN 70 mg/dL (7-20); CALCIUM 7.3 mg/dL (8.4-10.2); CARBON DIOXIDE 28 mmol/L (22-30); CHLORIDE 85 mmol/L (98-107); CHOLESTEROL 137.21 mg/dL (0-200); GLUCOSE 100 mg/dL (75-110); LIPASE 224.8 U/L (23-300); POTASSIUM 4.6 mmol/L (3.6-5.0); SODIUM 125.7 mmol/L (137-145); TOTAL PROTEIN 6.4 g/dL (6.3-8.2); TRIGLYCERIDES 155 mg/dL (<150)
[2017-10-15 07:01] LABS: DIRECT LDL 58 mg/dL (<100)
[2017-10-15] MEDS: INSULIN LISPRO 100 UNIT/ML 3 ML VIAL SUBCUT SCH ×3 (08:50→17:57)
[2017-10-15] MEDS ORDERED: SITAGLIPTIN PHOSPHATE 50 MG TABLET PO SCH (10:00)
[2017-10-15] MEDS ORDERED: (PENDING PHARMACY ID) (Linagliptin [Tradjenta] 5 MG) PO SCH (10:00)
[2017-10-15] MEDS: INSULIN GLARGINE,HUM.REC.ANLOG 1,000 UNIT/10 ML UNIT SUBCUT SCH ×2 (10:35→22:31)
[2017-10-15] MEDS: ASPIRIN 81 MG TABLET, CHEWABLE PO SCH (10:36)
[2017-10-15] MEDS: LOPERAMIDE HCL 2 MG CAPSULE PO SCH ×3 (10:36→17:51)
[2017-10-15] MEDS: MAGNESIUM OXIDE 400 MG TABLET PO SCH (10:36)
[2017-10-15] MEDS: FEBUXOSTAT 80 MG TABLET PO SCH (10:36)
[2017-10-15] MEDS: GLIPIZIDE XL 5 MG TAB.ER.24 PO SCH (10:37)
[2017-10-15] MEDS: SODIUM BICARBONATE 650 MG TABLET PO SCH ×3 (10:37→17:52)
[2017-10-15] MEDS: SITAGLIPTIN PHOSPHATE 25 MG TABLET PO SCH (10:37)
[2017-10-15] MEDS: PIOGLITAZONE HCL 30 MG TABLET PO SCH (10:37)
[2017-10-15] MEDS: CLOTRIMAZOLE 1% TOPICAL SOLN 10 ML TP SCH ×2 (10:41→22:31)
--- NOTE | 2017-10-15 21:03 | PDOC H&P ---
History of Present Illness Admission Date/PCP: 10/14/17 06:34 LISA MATA MD History of Present Illness: RANDEE VELÁSQUEZ is a 61 year old female, She is well known to me she has high output ileostomy bag with a history of recurrent acute kidney injury she was just discharged from the hospital about 5 days ago, she came to the office for follow-up routine blood work was done and she was found to be in acute kidney failure with metabolic acidosis and hyperkalemia which is the usual pattern of presentation. She also stated that she has noticed reduced urinary output. This has been ongoing problem for this patient she was extensively evaluated both at [facility], and [place] for the same problem.She was called from home to go to the emergency room for evaluation, in the emergency room she was evaluated she was found to acute kidney injury with acid-base disorder and electrolyte derangement Past Medical History Cardiac Medical History: Reports: Atrial Fibrillation, Coronary Artery Disease, DVT, Myocardial Infarction - 2002, Hyperlipidema, Hypertension Pulmonary Medical History: Reports: Pneumonia - 2006 Endocrine Medical History: Reports: Diabetes Mellitus Type 2 Malignancy Medical History: Reports: Renal (Kidney) Cancer GI Medical History: Reports: Gastroesophageal Reflux Disease, Hiatal Hernia Musculoskeltal Medical History: Reports: Arthritis - Back, Knees Hematology: Reports: Anemia Past Surgical History Past Surgical History: Reports: Cardiac Catheterization, Colostomy, Coronary Stent, Hysterectomy, Ileostomy, Orthopedic Surgery - L knee replacement, right ankle pin Social History Smoking Status: Never Smoker Frequency of Alcohol Use: None Hx Recreational Drug Use: No Drugs: None Hx Prescription Drug Abuse: No - Advance Directive Resuscitation Status: Full Code Family History Family History: Reviewed & Not Pertinent, Hypertension Parental Family History Reviewed: Yes Children Family History Reviewed: Yes Sibling(s) Family History Reviewed.: Yes Medication/Allergy Home Medications: Albuterol Sulfate [Proventil Hfa] 2 puff IH Q4HP PRN 10/14/17 Aspirin [Aspirin 81 mg Chewable Tablet] 81 mg PO DAILY 10/14/17 Clotrimazole 1% Topical [Lotrimin 1% Topical Solution] 1 applic TP BID 10/14/17 Cyclobenzaprine HCl [Flexeril 10 mg Tablet] 10 mg PO TID 10/14/17 Ergocalciferol (Vitamin D2) [Vitamin D2] 50,000 unit PO KYLE@1000 10/14/17 Exenatide Microspheres [Bydureon Pen] 2 mg SQ KYLE@1000 10/14/17 Febuxostat [Uloric 80 mg Tablet] 80 mg PO DAILY 10/14/17 Gabapentin [Neurontin] 600 mg PO QID 10/14/17 Glipizide [Glipizide Xl] 5 mg PO DAILY 10/14/17 Insulin Aspart [Novolog Flexpen] 12 unit SQ TID 10/14/17 Insulin Glargine,Hum.rec.anlog [Lantus Solostar] 60 unit SQ BID 10/14/17 Linagliptin [Tradjenta] 5 mg PO DAILY 10/14/17 Loperamide HCl [Loperamide] 4 mg PO TID 10/14/17 Magnesium Oxide [Mag-Ox 400 mg Tablet] 400 mg PO DAILY 10/14/17 Metoprolol Succinate [Toprol Xl 50 mg Tab.sr] 50 mg PO DAILY 10/14/17 Nystatin [Mycostatin Topical Powder 15 gm] 1 applic TP BID 10/14/17 Oxycodone HCl [Oxy-Ir 5 mg Tablet] 10 mg PO Q6HP PRN 10/14/17 Oxymorphone HCl [Opana] 10 mg PO Q12 10/14/17 Pioglitazone HCl [Actos] 30 mg PO DAILY 10/14/17 Pravastatin Sodium [Pravachol] 40 mg PO DAILY 10/14/17 Ramipril [Altace 10 mg Capsule] 10 mg PO DAILY 10/14/17 Sodium Bicarbonate [Sodium Bicarbonate 650 mg Tablet] 1,300 mg PO TID 10/14/17 Allergies/Adverse Reactions: ciprofloxacin [From Cipro] Allergy (Severe, Verified 08/17/17 13:55) Hallucinations morphine [Morphine] Allergy (Unknown, Verified 08/17/17 13:55) Review of Systems Constitutional: ABSENT: chills, fever(s), headache(s), weight gain, weight loss Eyes: ABSENT: visual disturbances Ears: ABSENT: hearing changes Cardiovascular: ABSENT: chest pain, dyspnea on exertion, edema, orthropnea, palpitations Respiratory: ABSENT: cough, hemoptysis Gastrointestinal: ABSENT: abdominal pain, constipation, diarrhea, hematemesis, hematochezia, nausea, vomiting Genitourinary: ABSENT: dysuria, hematuria Musculoskeletal: ABSENT: joint swelling Integumentary: ABSENT: rash, wounds Neurological: ABSENT: abnormal gait, abnormal speech, confusion, dizziness, focal weakness, syncope Psychiatric: ABSENT: anxiety, depression, homidical ideation, suicidal ideation Endocrine: ABSENT: cold intolerance, heat intolerance, menstrual abnormalities, polydipsia, polyuria Hematologic/Lymphatic: ABSENT: easy bleeding, easy bruising, lymphadenopathy Physical Exam Vital Signs: Temp Pulse Resp BP Pulse Ox 99.6 F 117 H 18 109/59 L 93 10/15/17 14:55 10/15/17 14:55 10/15/17 14:55 10/15/17 14:55 10/15/17 14:55 Intake & Output 10/14/17 10/15/17 10/16/17 06:59 06:59 06:59 Intake Total 1683 2634 Output Total 2350 1500 Balance -667 1134 Weight 119.3 kg General appearance: PRESENT: no acute distress, well-developed, well-nourished Head exam: PRESENT: atraumatic, normocephalic Eye exam: PRESENT: conjunctiva pink, EOMI, PERRLA Ear exam: PRESENT: normal external ear exam Mouth exam: PRESENT: moist, tongue midline Neck exam: PRESENT: full ROM Respiratory exam: PRESENT: clear to auscultation stephen Cardiovascular exam: PRESENT: RRR, +S1, +S2 Pulses: PRESENT: normal dorsalis pedis pul, +2 pedal pulses bilateral Vascular exam: PRESENT: normal capillary refill GI/Abdominal exam: PRESENT: normal bowel sounds, soft, other - Ileostomy bag Rectal exam: PRESENT: deferred Neurological exam: PRESENT: alert, awake, oriented to person, oriented to place , oriented to time, oriented to situation, CN II-XII grossly intact Psychiatric exam: PRESENT: appropriate affect, normal mood Skin exam: PRESENT: dry, intact, warm Results Laboratory Results: 10/15/17 05:59 10/15/17 05:59 10/14/17 10/15/17 10/15/17 22:13 05:59 05:59 WBC 4.5 RBC 2.99 L Hgb 8.4 L Hct 25.2 L MCV 85 MCH 28.2 MCHC 33.4 RDW 16.1 H Plt Count 216 Seg Neutrophils % 62.6 Lymphocytes % 20.3 Monocytes % 14.4 H Eosinophils % 2.3 Basophils % 0.4 Absolute Neutrophils 2.8 Absolute Lymphocytes 0.9 Absolute Monocytes 0.6 Absolute Eosinophils 0.1 Absolute Basophils 0.0 Sodium 125.7 L Potassium 4.6 Chloride 85 L Carbon Dioxide 28 Anion Gap 13 BUN 70 H Creatinine 5.30 H Est GFR ( Amer) 10 L Est GFR (Non-Af Amer) 8 L Glucose 100 Calcium 7.3 L Total Bilirubin 0.3 AST 58 H ALT 53 H Alkaline Phosphatase 79 Ammonia Total Protein 6.4 Albumin 3.4 L Triglycerides 155 H Cholesterol 137.21 LDL Cholesterol Direct 58 VLDL Cholesterol 31.0 HDL Cholesterol 37 L Amylase 124 H Lipase 224.8 Urine Color YELLOW Urine Appearance SLIGHTLY-CLOUDY Urine pH 5.0 Ur Specific [place] 1.008 Urine Protein NEGATIVE Urine Glucose (UA) NEGATIVE Urine Ketones NEGATIVE Urine Blood LARGE H Urine Nitrite NEGATIVE Ur Leukocyte Esterase TRACE H Urine WBC (Auto) 10 Urine RBC (Auto) 20 10/15/17 05:59 WBC RBC Hgb Hct MCV MCH MCHC RDW Plt Count Seg Neutrophils % Lymphocytes % Monocytes % Eosinophils % Basophils % Absolute Neutrophils Absolute Lymphocytes Absolute Monocytes Absolute Eosinophils Absolute Basophils Sodium Potassium Chloride Carbon Dioxide Anion Gap BUN Creatinine Est GFR ( Amer) Est GFR (Non-Af Amer) Glucose Calcium Total Bilirubin AST ALT Alkaline Phosphatase Ammonia 19.0 Total Protein Albumin Triglycerides Cholesterol LDL Cholesterol Direct VLDL Cholesterol HDL Cholesterol Amylase Lipase Urine Color Urine Appearance Urine pH Ur Specific [place] Urine Protein Urine Glucose (UA) Urine Ketones Urine Blood Urine Nitrite Ur Leukocyte Esterase Urine WBC (Auto) Urine RBC (Auto) 10/14/17 10/14/17 10/14/17 09:59 09:59 09:59 Creatine Kinase 271 H CK-MB (CK-2) 3.99 Troponin I 0.032 NT-Pro-B Natriuret Pep 215 10/14/17 10/14/17 10/14/17 17:00 17:00 20:42 Creatine Kinase 286 H 240 H CK-MB (CK-2) 3.65 Troponin I 0.021 NT-Pro-B Natriuret Pep 10/14/17 20:42 Creatine Kinase CK-MB (CK-2) 3.46 Troponin I 0.019 NT-Pro-B Natriuret Pep Assessment & Plan - Diagnosis (1) Acute kidney injury Is this a current diagnosis for this admission?: Yes Plan: She is admitted for management (2) Metabolic acidosis Is this a current diagnosis for this admission?: Yes
[2017-10-15] MEDS: ATORVASTATIN CALCIUM 10 MG TABLET PO SCH (22:31)
[2017-10-16] MEDS: NORMAL SALINE 1000 ML 1,000 ML IV PRN ×3 (01:02→18:44)
[2017-10-16] MEDS: GABAPENTIN 300 MG CAPSULE PO SCH ×5 (01:02→23:42)
[2017-10-16 04:19] LABS: ABSOLUTE EOSINOPHILS # (AUTO) 0.1 10^3/uL (0.0-0.6); ABSOLUTE MONOCYTES (AUTO) 0.4 10^3/uL (0.1-1.4); ABSOLUTE NEUT (AUTO) 2.3 10^3/uL (1.7-8.2); BASOPHILS % (AUTO) 0.3 % (0-2); HEMATOCRIT 25.8 % (36.0-47.0); HEMOGLOBIN 8.6 g/dL (12.0-15.5); LYMPHOCYTES % (AUTO) 25.7 % (13-45); MEAN CORPUSCULAR HEMOGLOBIN 28.2 pg (27.0-33.4); MEAN CORPUSCULAR HGB CONC 33.3 g/dL (32.0-36.0); MEAN CORPUSCULAR VOLUME 85 fl (80-97); MONOCYTES % (AUTO) 11.8 % (3-13); PLATELET COUNT 204 10^3/uL (150-450); RED BLOOD COUNT 3.05 10^6/uL (3.72-5.28); RED CELL DISTRIBUTION WIDTH 15.7 % (11.5-14.0); SEGMENTED NEUTROPHILS % (AUTO) 60.2 % (42-78); TOTAL CELLS COUNTED % (AUTO) 100 %; WHITE BLOOD COUNT 3.8 10^3/uL (4.0-10.5)
[2017-10-16 04:34] LABS: ALANINE AMINOTRANSFERASE 46 U/L (9-52); ALBUMIN 3.1 g/dL (3.5-5.0); ALKALINE PHOSPHATASE 67 U/L (38-126); AMYLASE 148 U/L (30-110); ANION GAP 10 (5-19); ASPARTATE AMINO TRANSFERASE 52 U/L (14-36); BILIRUBIN,DIRECT 0.4 mg/dL (0.0-0.4); BILIRUBIN,TOTAL 0.4 mg/dL (0.2-1.3); BLOOD UREA NITROGEN 55 mg/dL (7-20); CALCIUM 7.4 mg/dL (8.4-10.2); CARBON DIOXIDE 33 mmol/L (22-30); CHLORIDE 86 mmol/L (98-107); GLUCOSE 108 mg/dL (75-110); LIPASE 228.3 U/L (23-300); POTASSIUM 4.4 mmol/L (3.6-5.0); SODIUM 129.4 mmol/L (137-145); TOTAL PROTEIN 6.5 g/dL (6.3-8.2)
[2017-10-16] MEDS: HYDROMORPHONE HCL INJ/PF 2 MG/ML AMPULE IV PRN ×5 (04:55→23:42)
[2017-10-16] MEDS: HEPARIN SOD (PORCINE) 5,000 UNIT/ML 1 ML SYRINGE SUBCUT SCH ×3 (06:41→21:52)
[2017-10-16] MEDS: CYCLOBENZAPRINE HCL 10 MG TABLET PO SCH ×3 (06:41→21:52)
[2017-10-16] MEDS ORDERED: CALCIUM GLUCONATE 1000 MG/10 ML INJ IV ONE ×3 (07:15→13:15)
[2017-10-16] MEDS: INSULIN LISPRO 100 UNIT/ML 3 ML VIAL SUBCUT SCH ×3 (10:07→16:13)
[2017-10-16] MEDS: LOPERAMIDE HCL 2 MG CAPSULE PO SCH ×3 (10:34→18:44)
[2017-10-16] MEDS: SITAGLIPTIN PHOSPHATE 25 MG TABLET PO SCH (10:35)
[2017-10-16] MEDS: SODIUM BICARBONATE 650 MG TABLET PO SCH ×3 (10:35→18:44)
[2017-10-16] MEDS: ASPIRIN 81 MG TABLET, CHEWABLE PO SCH (10:35)
[2017-10-16] MEDS: FEBUXOSTAT 80 MG TABLET PO SCH (10:35)
[2017-10-16] MEDS: PIOGLITAZONE HCL 30 MG TABLET PO SCH (10:35)
[2017-10-16] MEDS: MAGNESIUM OXIDE 400 MG TABLET PO SCH (10:35)
[2017-10-16] MEDS: GLIPIZIDE XL 5 MG TAB.ER.24 PO SCH (10:35)
[2017-10-16] MEDS: CLOTRIMAZOLE 1% TOPICAL SOLN 10 ML TP SCH ×2 (10:37→22:28)
[2017-10-16] MEDS: INSULIN GLARGINE,HUM.REC.ANLOG 1,000 UNIT/10 ML UNIT SUBCUT SCH ×2 (10:37→22:28)
--- NOTE | 2017-10-16 17:30 | PDOC PROGRESS REPORT ---
Subjective Progress Note for:: 10/16/17 Subjective:: Patient was seen by the bedside, she was admitted for the management of diabetic acidosis, acute kidney injury, improving with hydration. Reason For Visit: ACUTE KIDNEY INJURY,METABOLIC ACIDOSIS Physical Exam Vital Signs: Temp Pulse Resp BP Pulse Ox 99.8 F 116 H 16 127/72 H 100 10/16/17 08:17 10/16/17 08:17 10/16/17 08:17 10/16/17 08:17 10/16/17 08:17 Intake & Output 10/15/17 10/16/17 10/17/17 06:59 06:59 06:59 Intake Total 1683 5504 Output Total 2350 5600 Balance -667 -96 Weight 119.3 kg 117.7 kg General appearance: PRESENT: no acute distress, well-developed, well-nourished Head exam: PRESENT: atraumatic, normocephalic Eye exam: PRESENT: conjunctiva pink, EOMI, PERRLA Ear exam: PRESENT: normal external ear exam Mouth exam: PRESENT: moist, tongue midline Neck exam: PRESENT: full ROM Respiratory exam: PRESENT: clear to auscultation stephen Cardiovascular exam: PRESENT: RRR, +S1, +S2 Pulses: PRESENT: normal dorsalis pedis pul, +2 pedal pulses bilateral Vascular exam: PRESENT: normal capillary refill GI/Abdominal exam: PRESENT: normal bowel sounds, soft Rectal exam: PRESENT: deferred Neurological exam: PRESENT: alert, awake, oriented to person, oriented to place , oriented to time, oriented to situation, CN II-XII grossly intact Psychiatric exam: PRESENT: appropriate affect, normal mood Skin exam: PRESENT: dry, intact, warm Results Laboratory Results: 10/16/17 04:05 10/16/17 04:05 10/16/17 10/16/17 10/16/17 04:05 04:05 04:05 WBC 3.8 L RBC 3.05 L Hgb 8.6 L Hct 25.8 L MCV 85 MCH 28.2 MCHC 33.3 RDW 15.7 H Plt Count 204 Seg Neutrophils % 60.2 Lymphocytes % 25.7 Monocytes % 11.8 Eosinophils % 2.0 Basophils % 0.3 Absolute Neutrophils 2.3 Absolute Lymphocytes 1.0 Absolute Monocytes 0.4 Absolute Eosinophils 0.1 Absolute Basophils 0.0 Sodium 129.4 L Potassium 4.4 Chloride 86 L Carbon Dioxide 33 H Anion Gap 10 BUN 55 H Creatinine 3.06 H Est GFR ( Amer) 19 L Est GFR (Non-Af Amer) 16 L Glucose 108 Calcium 7.4 L Total Bilirubin 0.4 AST 52 H ALT 46 Alkaline Phosphatase 67 Ammonia 8.8 L Total Protein 6.5 Albumin 3.1 L Amylase 148 H Lipase 228.3 10/14/17 10/14/17 10/14/17 09:59 09:59 09:59 Creatine Kinase 271 H CK-MB (CK-2) 3.99 Troponin I 0.032 NT-Pro-B Natriuret Pep 215 10/14/17 10/14/17 10/14/17 17:00 17:00 20:42 Creatine Kinase 286 H 240 H CK-MB (CK-2) 3.65 Troponin I 0.021 NT-Pro-B Natriuret Pep 10/14/17 20:42 Creatine Kinase CK-MB (CK-2) 3.46 Troponin I 0.019 NT-Pro-B Natriuret Pep Assessment & Plan - Diagnosis (1) Acute kidney injury Is this a current diagnosis for this admission?: Yes (2) Metabolic acidosis Is this a current diagnosis for this admission?: Yes
[2017-10-16] MEDS: ATORVASTATIN CALCIUM 10 MG TABLET PO SCH (22:28)
[2017-10-17] MEDS: NORMAL SALINE 1000 ML 1,000 ML IV PRN ×3 (04:11→21:22)
[2017-10-17] MEDS: HYDROMORPHONE HCL INJ/PF 2 MG/ML AMPULE IV PRN ×5 (04:18→21:22)
[2017-10-17 04:56] LABS: ABSOLUTE EOSINOPHILS # (AUTO) 0.2 10^3/uL (0.0-0.6); ABSOLUTE LYMPHOCYTES (AUTO) 0.8 10^3/uL (0.5-4.7); ABSOLUTE MONOCYTES (AUTO) 0.4 10^3/uL (0.1-1.4); BASOPHILS % (AUTO) 0.9 % (0-2); HEMATOCRIT 27.3 % (36.0-47.0); LYMPHOCYTES % (AUTO) 24.2 % (13-45); MEAN CORPUSCULAR HEMOGLOBIN 28.4 pg (27.0-33.4); MEAN CORPUSCULAR HGB CONC 32.9 g/dL (32.0-36.0); MEAN CORPUSCULAR VOLUME 86 fl (80-97); MONOCYTES % (AUTO) 11.4 % (3-13); PLATELET COUNT 188 10^3/uL (150-450); RED BLOOD COUNT 3.17 10^6/uL (3.72-5.28); SEGMENTED NEUTROPHILS % (AUTO) 57.5 % (42-78); TOTAL CELLS COUNTED % (AUTO) 100 %; WHITE BLOOD COUNT 3.4 10^3/uL (4.0-10.5)
[2017-10-17 05:25] LABS: ALANINE AMINOTRANSFERASE 37 U/L (9-52); ALKALINE PHOSPHATASE 65 U/L (38-126); AMYLASE 114 U/L (30-110); ANION GAP 10 (5-19); ASPARTATE AMINO TRANSFERASE 44 U/L (14-36); BILIRUBIN,DIRECT 0.2 mg/dL (0.0-0.4); BILIRUBIN,TOTAL 0.2 mg/dL (0.2-1.3); BLOOD UREA NITROGEN 41 mg/dL (7-20); CARBON DIOXIDE 31 mmol/L (22-30); CHLORIDE 98 mmol/L (98-107); GLUCOSE 97 mg/dL (75-110); POTASSIUM 4.2 mmol/L (3.6-5.0); SODIUM 138.9 mmol/L (137-145); TOTAL PROTEIN 6.3 g/dL (6.3-8.2)
[2017-10-17] MEDS: GABAPENTIN 300 MG CAPSULE PO SCH ×4 (05:31→23:13)
[2017-10-17] MEDS: CYCLOBENZAPRINE HCL 10 MG TABLET PO SCH ×3 (05:31→21:22)
[2017-10-17] MEDS: HEPARIN SOD (PORCINE) 5,000 UNIT/ML 1 ML SYRINGE SUBCUT SCH ×3 (05:31→21:22)
[2017-10-17] MEDS: INSULIN LISPRO 100 UNIT/ML 3 ML VIAL SUBCUT SCH ×3 (08:15→17:05)
[2017-10-17] MEDS ORDERED: (PENDING PHARMACY ID) (Exenatide Microspheres [Bydureon Pen] 2 MG) SQ SCH (10:00)
[2017-10-17] MEDS: ERGOCALCIFEROL (VITAMIN D2) 50000 UNIT (1.25 MG) CAPSULE PO SCH (11:18)
[2017-10-17] MEDS: FEBUXOSTAT 80 MG TABLET PO SCH (11:18)
[2017-10-17] MEDS: LOPERAMIDE HCL 2 MG CAPSULE PO SCH ×3 (11:18→17:07)
[2017-10-17] MEDS: ASPIRIN 81 MG TABLET, CHEWABLE PO SCH (11:19)
[2017-10-17] MEDS: GLIPIZIDE XL 5 MG TAB.ER.24 PO SCH (11:19)
[2017-10-17] MEDS: PIOGLITAZONE HCL 30 MG TABLET PO SCH (11:19)
[2017-10-17] MEDS: SITAGLIPTIN PHOSPHATE 25 MG TABLET PO SCH (11:19)
[2017-10-17] MEDS: MAGNESIUM OXIDE 400 MG TABLET PO SCH (11:20)
[2017-10-17] MEDS: SODIUM BICARBONATE 650 MG TABLET PO SCH ×3 (11:21→17:07)
[2017-10-17] MEDS: CLOTRIMAZOLE 1% TOPICAL SOLN 10 ML TP SCH ×2 (11:22→21:17)
[2017-10-17] MEDS: INSULIN GLARGINE,HUM.REC.ANLOG 1,000 UNIT/10 ML UNIT SUBCUT SCH ×2 (11:22→21:17)
--- NOTE | 2017-10-17 16:35 | PDOC PROGRESS REPORT ---
Subjective Progress Note for:: 10/17/17 Subjective:: She has high output ileostomy bag with recurrent acute kidney injury associated with metabolic acidosis due to dehydration. This is ongoing for the last 4 years. The have to do some innovative treatment plan for this patient, I will request for a Port-A-Cath insertion by surgeon if this is possible especially with potentia to develop chronic kidney disease, she may need to be set up for outpatient regular IV fluid therapy about 3 times a week to prevent this recurrent admission for acute kidney injury due to dehydration from high output state. The kidney function is improved today usually whenever she is admitted the kidney function will improve before discharge only to be readmitted with acute kidney injury. Reason For Visit: ACUTE KIDNEY INJURY,METABOLIC ACIDOSIS Physical Exam Vital Signs: Temp Pulse Resp BP Pulse Ox 99.1 F 103 H 18 134/84 H 93 10/17/17 16:10 10/17/17 16:10 10/17/17 16:10 10/17/17 16:10 10/17/17 16:10 Intake & Output 10/16/17 10/17/17 10/18/17 06:59 06:59 06:59 Intake Total 5504 4775 500 Output Total 5600 6200 1300 Balance -96 -1425 -800 Weight 117.7 kg 117 kg General appearance: PRESENT: no acute distress Eye exam: PRESENT: PERRLA Respiratory exam: PRESENT: clear to auscultation stephen Cardiovascular exam: PRESENT: +S1, +S2 GI/Abdominal exam: PRESENT: soft Neurological exam: PRESENT: alert, CN II-XII grossly intact Results Laboratory Results: 10/17/17 04:42 10/17/17 04:42 10/17/17 10/17/17 10/17/17 04:42 04:42 04:42 WBC 3.4 L RBC 3.17 L Hgb 9.0 L Hct 27.3 L MCV 86 MCH 28.4 MCHC 32.9 RDW 16.0 H Plt Count 188 Seg Neutrophils % 57.5 Lymphocytes % 24.2 Monocytes % 11.4 Eosinophils % 6.0 Basophils % 0.9 Absolute Neutrophils 2.0 Absolute Lymphocytes 0.8 Absolute Monocytes 0.4 Absolute Eosinophils 0.2 Absolute Basophils 0.0 Sodium 138.9 Potassium 4.2 Chloride 98 Carbon Dioxide 31 H Anion Gap 10 BUN 41 H Creatinine 2.32 H Est GFR ( Amer) 26 L Est GFR (Non-Af Amer) 21 L Glucose 97 Calcium 8.0 L Total Bilirubin 0.2 AST 44 H ALT 37 Alkaline Phosphatase 65 Ammonia < 8.7 L Total Protein 6.3 Albumin 3.0 L Amylase 114 H Lipase 281.0 10/14/17 10/14/17 10/14/17 09:59 09:59 09:59 Creatine Kinase 271 H CK-MB (CK-2) 3.99 Troponin I 0.032 NT-Pro-B Natriuret Pep 215 10/14/17 10/14/17 10/14/17 17:00 17:00 20:42 Creatine Kinase 286 H 240 H CK-MB (CK-2) 3.65 Troponin I 0.021 NT-Pro-B Natriuret Pep 10/14/17 20:42 Creatine Kinase CK-MB (CK-2) 3.46 Troponin I 0.019 NT-Pro-B Natriuret Pep Assessment & Plan - Diagnosis (1) Acute kidney injury Is this a current diagnosis for this admission?: Yes Plan: Continue IV hydration (2) Metabolic acidosis Is this a current diagnosis for this admission?: Yes (3) Morbid obesity Is this a current diagnosis for this admission?: Yes (4) Type 2 diabetes mellitus Qualifiers: Diabetes mellitus complication status: with neurologic complications Diabetes mellitus complication detail: with polyneuropathy 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
[2017-10-17] MEDS: ATORVASTATIN CALCIUM 10 MG TABLET PO SCH (21:17)
[2017-10-18] MEDS: HYDROMORPHONE HCL INJ/PF 2 MG/ML AMPULE IV PRN ×5 (01:57→23:03)
[2017-10-18] MEDS: GABAPENTIN 300 MG CAPSULE PO SCH ×4 (06:22→23:08)
[2017-10-18] MEDS: CYCLOBENZAPRINE HCL 10 MG TABLET PO SCH ×3 (06:22→22:17)
[2017-10-18] MEDS: HEPARIN SOD (PORCINE) 5,000 UNIT/ML 1 ML SYRINGE SUBCUT SCH ×3 (06:22→22:17)
[2017-10-18] MEDS: NORMAL SALINE 1000 ML 1,000 ML IV PRN ×2 (06:24→22:21)
[2017-10-18] MEDS ORDERED: DEXTROSE 40% GEL 15 GM TUBE PO PRN ×2 (08:40)
[2017-10-18] MEDS ORDERED: DEXTROSE 50%-WATER 25 GM/50 ML DISP.SYRIN IV PRN ×2 (08:40)
[2017-10-18] MEDS ORDERED: GLUCAGON,HUMAN RECOMB 1 MG INJ SUBCUT PRN (08:40)
[2017-10-18] MEDS: INSULIN LISPRO 100 UNIT/ML 3 ML VIAL SUBCUT SCH ×3 (08:41→16:13)
[2017-10-18 09:17] LABS: ABSOLUTE EOSINOPHILS # (AUTO) 0.4 10^3/uL (0.0-0.6); ABSOLUTE LYMPHOCYTES (AUTO) 1.3 10^3/uL (0.5-4.7); ABSOLUTE MONOCYTES (AUTO) 0.5 10^3/uL (0.1-1.4); ABSOLUTE NEUT (AUTO) 3.2 10^3/uL (1.7-8.2); BASOPHILS % (AUTO) 0.7 % (0-2); EOSINOPHILS % (AUTO) 6.9 % (0-6); HEMATOCRIT 29.3 % (36.0-47.0); HEMOGLOBIN 9.6 g/dL (12.0-15.5); LYMPHOCYTES % (AUTO) 24.3 % (13-45); MEAN CORPUSCULAR HEMOGLOBIN 28.1 pg (27.0-33.4); MEAN CORPUSCULAR HGB CONC 32.7 g/dL (32.0-36.0); MEAN CORPUSCULAR VOLUME 86 fl (80-97); MONOCYTES % (AUTO) 9.2 % (3-13); PLATELET COUNT 202 10^3/uL (150-450); RED BLOOD COUNT 3.41 10^6/uL (3.72-5.28); RED CELL DISTRIBUTION WIDTH 15.8 % (11.5-14.0); SEGMENTED NEUTROPHILS % (AUTO) 58.9 % (42-78); TOTAL CELLS COUNTED % (AUTO) 100 %; WHITE BLOOD COUNT 5.5 10^3/uL (4.0-10.5)
[2017-10-18 09:41] LABS: ALANINE AMINOTRANSFERASE 43 U/L (9-52); ALBUMIN 3.1 g/dL (3.5-5.0); ALKALINE PHOSPHATASE 76 U/L (38-126); ANION GAP 7 (5-19); ASPARTATE AMINO TRANSFERASE 44 U/L (14-36); BILIRUBIN,DIRECT 0.4 mg/dL (0.0-0.4); BILIRUBIN,TOTAL 0.4 mg/dL (0.2-1.3); BLOOD UREA NITROGEN 27 mg/dL (7-20); CALCIUM 8.2 mg/dL (8.4-10.2); CARBON DIOXIDE 28 mmol/L (22-30); CHLORIDE 103 mmol/L (98-107); GLUCOSE 56 mg/dL (75-110); POTASSIUM 4.7 mmol/L (3.6-5.0); SODIUM 138.4 mmol/L (137-145); TOTAL PROTEIN 6.6 g/dL (6.3-8.2)
[2017-10-18] MEDS: SODIUM BICARBONATE 650 MG TABLET PO SCH ×3 (10:45→18:52)
[2017-10-18] MEDS: FEBUXOSTAT 80 MG TABLET PO SCH (10:45)
[2017-10-18] MEDS: MAGNESIUM OXIDE 400 MG TABLET PO SCH (10:45)
[2017-10-18] MEDS: ASPIRIN 81 MG TABLET, CHEWABLE PO SCH (10:45)
[2017-10-18] MEDS: SITAGLIPTIN PHOSPHATE 25 MG TABLET PO SCH (10:45)
[2017-10-18] MEDS: INSULIN GLARGINE,HUM.REC.ANLOG 1,000 UNIT/10 ML UNIT SUBCUT SCH ×2 (10:45→22:23)
[2017-10-18] MEDS: PIOGLITAZONE HCL 30 MG TABLET PO SCH (10:45)
[2017-10-18] MEDS: GLIPIZIDE XL 5 MG TAB.ER.24 PO SCH (10:45)
[2017-10-18] MEDS: LOPERAMIDE HCL 2 MG CAPSULE PO SCH ×3 (10:45→18:53)
[2017-10-18] MEDS: CLOTRIMAZOLE 1% TOPICAL SOLN 10 ML TP SCH ×2 (10:54→22:22)
[2017-10-18] MEDS ORDERED: CEFAZOLIN INJ 1 GM VIAL ONE (14:20)
[2017-10-18] MEDS ORDERED: FENTANYL CITRATE INJ/PF 100 MCG/2 ML AMPUL ONE (14:37)
[2017-10-18] MEDS ORDERED: PROPOFOL INJ 200 MG/20 ML VIAL IV ONE (14:37)
[2017-10-18] MEDS ORDERED: MIDAZOLAM 2 MG/2 ML INJ ONE ×2 (14:37)
[2017-10-18] MEDS ORDERED: BUPIVACAINE HCL 0.25 % INJ/PF (2.5 MG/1 ML) 30 ML VIAL ONE (14:57)
[2017-10-18] MEDS ORDERED: LIDOCAINE 1% INJ-PF (10 MG/ML) 30 ML SDV ONE (15:29)
[2017-10-18] MEDS ORDERED: DIPHENHYDRAMINE HCL 50 MG/ML VIAL IV PRN (15:32)
[2017-10-18] MEDS ORDERED: FENTANYL CITRATE INJ/PF 100 MCG/2 ML AMPUL IV PRN ×3 (15:32)
[2017-10-18] MEDS ORDERED: PROMETHAZINE HCL INJ 25 MG/1 ML VIAL IV PRN ×2 (15:32)
--- NOTE | 2017-10-18 17:08 | PDOC CONSULTATION ---
Consultation Consult Date: 10/18/17 Attending physician:: Leonid Sauer Consult reason:: Port-a-cath insertion History of Present Illness Admission Date/PCP: 10/14/17 06:34 LISA MATA MD History of Present Illness: RANDEE VELÁSQUEZ is a 61 year old female, She is well known to me she has high output ileostomy bag with a history of recurrent acute kidney injury she was just discharged from the hospital about 5 days ago, she came to the office for follow-up routine blood work was done and she was found to be in acute kidney failure with metabolic acidosis and hyperkalemia which is the usual pattern of presentation. She also stated that she has noticed reduced urinary output. This has been ongoing problem for this patient she was extensively evaluated both at [facility], and [place] for the same problem.She was called from home to go to the emergency room for evaluation, in the emergency room she was evaluated she was found to acute kidney injury with acid-base disorder and electrolyte derangement Because of her frequent need for iv hydration a consult was placed for port-a- cath insertion. Past Medical History Cardiac Medical History: Reports: Atrial Fibrillation, Coronary Artery Disease, DVT, Myocardial Infarction - 2002, Hyperlipidema, Hypertension Pulmonary Medical History: Reports: Pneumonia - 2006 Endocrine Medical History: Reports: Diabetes Mellitus Type 2 Malignancy Medical History: Reports: Renal (Kidney) Cancer GI Medical History: Reports: Gastroesophageal Reflux Disease, Hiatal Hernia Musculoskeltal Medical History: Reports: Arthritis - Back, Knees Psychiatric Medical History: Denies: Depression Hematology: Reports: Anemia Past Surgical History Past Surgical History: Reports: Cardiac Catheterization, Colostomy, Coronary Stent, Hysterectomy, Ileostomy, Orthopedic Surgery - L knee replacement, right ankle pin, Other - Tracheostomy 10 yrs ago Social History Smoking Status: Never Smoker Frequency of Alcohol Use: None Hx Recreational Drug Use: No Drugs: None Hx Prescription Drug Abuse: No - Advance Directive Resuscitation Status: Full Code Family History Family History: Reviewed & Not Pertinent, Hypertension Parental Family History Reviewed: No Children Family History Reviewed: Unknown Sibling(s) Family History Reviewed.: Unknown Medication/Allergy Home Medications: Albuterol Sulfate [Proventil Hfa] 2 puff IH Q4HP PRN 10/14/17 Aspirin [Aspirin 81 mg Chewable Tablet] 81 mg PO DAILY 10/14/17 Clotrimazole 1% Topical [Lotrimin 1% Topical Solution] 1 applic TP BID 10/14/17 Cyclobenzaprine HCl [Flexeril 10 mg Tablet] 10 mg PO TID 10/14/17 Ergocalciferol (Vitamin D2) [Vitamin D2] 50,000 unit PO KYLE@1000 10/14/17 Exenatide Microspheres [Bydureon Pen] 2 mg SQ KYLE@1000 10/14/17 Febuxostat [Uloric 80 mg Tablet] 80 mg PO DAILY 10/14/17 Gabapentin [Neurontin] 600 mg PO QID 10/14/17 Glipizide [Glipizide Xl] 5 mg PO DAILY 10/14/17 Insulin Aspart [Novolog Flexpen] 12 unit SQ TID 10/14/17 Insulin Glargine,Hum.rec.anlog [Lantus Solostar] 60 unit SQ BID 10/14/17 Linagliptin [Tradjenta] 5 mg PO DAILY 10/14/17 Loperamide HCl [Loperamide] 4 mg PO TID 10/14/17 Magnesium Oxide [Mag-Ox 400 mg Tablet] 400 mg PO DAILY 10/14/17 Metoprolol Succinate [Toprol Xl 50 mg Tab.sr] 50 mg PO DAILY 10/14/17 Nystatin [Mycostatin Topical Powder 15 gm] 1 applic TP BID 10/14/17 Oxycodone HCl [Oxy-Ir 5 mg Tablet] 10 mg PO Q6HP PRN 10/14/17 Oxymorphone HCl [Opana] 10 mg PO Q12 10/14/17 Pioglitazone HCl [Actos] 30 mg PO DAILY 10/14/17 Pravastatin Sodium [Pravachol] 40 mg PO DAILY 10/14/17 Ramipril [Altace 10 mg Capsule] 10 mg PO DAILY 10/14/17 Sodium Bicarbonate [Sodium Bicarbonate 650 mg Tablet] 1,300 mg PO TID 10/14/17 Allergies/Adverse Reactions: ciprofloxacin [From Cipro] Allergy (Severe, Verified 08/17/17 13:55) Hallucinations morphine [Morphine] Allergy (Unknown, Verified 08/17/17 13:55) Review of Systems Constitutional: ABSENT: chills, fever(s), headache(s), weight gain, weight loss Eyes: ABSENT: visual disturbances Ears: ABSENT: hearing changes Cardiovascular: ABSENT: chest pain, dyspnea on exertion, edema, orthropnea, palpitations Respiratory: ABSENT: cough, hemoptysis Gastrointestinal: ABSENT: abdominal pain, constipation, diarrhea, hematemesis, hematochezia, nausea, vomiting Neurological: ABSENT: abnormal gait, abnormal speech, confusion, dizziness, focal weakness, syncope Psychiatric: ABSENT: anxiety, depression, homidical ideation, suicidal ideation Hematologic/Lymphatic: ABSENT: easy bleeding, easy bruising Physical Exam Vital Signs: Temp Pulse Resp BP Pulse Ox 99.7 F 100 16 154/86 H 95 10/18/17 10:53 10/18/17 10:53 10/18/17 10:53 10/18/17 10:53 10/18/17 10:53 Intake & Output 10/17/17 10/18/17 10/19/17 06:59 06:59 06:59 Intake Total 4775 3860 0 Output Total 6200 4650 1000 Balance -1425 -790 -1000 Weight 117 kg 116.5 kg General appearance: PRESENT: no acute distress, well-developed, well-nourished Head exam: PRESENT: atraumatic, normocephalic Eye exam: PRESENT: conjunctiva pink, EOMI, PERRLA. ABSENT: scleral icterus Ear exam: PRESENT: normal external ear exam Neck exam: PRESENT: other - 3cm transverse surgical scar above the suprasternal notch (tracheostomy). ABSENT: carotid bruit, JVD, lymphadenopathy, thyromegaly Results Laboratory Results: 10/18/17 09:04 10/18/17 09:04 10/18/17 10/18/17 09:04 09:04 WBC 5.5 RBC 3.41 L Hgb 9.6 L Hct 29.3 L MCV 86 MCH 28.1 MCHC 32.7 RDW 15.8 H Plt Count 202 Seg Neutrophils % 58.9 Lymphocytes % 24.3 Monocytes % 9.2 Eosinophils % 6.9 H Basophils % 0.7 Absolute Neutrophils 3.2 Absolute Lymphocytes 1.3 Absolute Monocytes 0.5 Absolute Eosinophils 0.4 Absolute Basophils 0.0 Sodium 138.4 Potassium 4.7 Chloride 103 Carbon Dioxide 28 Anion Gap 7 BUN 27 H Creatinine 1.99 H Est GFR ( Amer) 31 L Est GFR (Non-Af Amer) 26 L Glucose 56 L Calcium 8.2 L Total Bilirubin 0.4 AST 44 H ALT 43 Alkaline Phosphatase 76 Total Protein 6.6 Albumin 3.1 L 10/14/17 10/14/17 10/14/17 09:59 09:59 09:59 Creatine Kinase 271 H CK-MB (CK-2) 3.99 Troponin I 0.032 NT-Pro-B Natriuret Pep 215 10/14/17 10/14/17 10/14/17 17:00 17:00 20:42 Creatine Kinase 286 H 240 H CK-MB (CK-2) 3.65 Troponin I 0.021 NT-Pro-B Natriuret Pep 10/14/17 20:42 Creatine Kinase CK-MB (CK-2) 3.46 Troponin I 0.019 NT-Pro-B Natriuret Pep Assessment & Plan - Plan Summary Plan Summary: A port-a-cath will be placed - an informed consent was obtained from the patient.
--- NOTE | 2017-10-18 17:18 | RADIOLOGY REPORT (SQ) ---
EXAM DESCRIPTION: CHEST SINGLE VIEW COMPLETE DATE/TIME: 10/18/2017 4:57 pm REASON FOR STUDY: PORTACATH FINDINGS: Please see combined report for performance of procedure and radiologic supervision and int erpretation. IMPRESSION: Please see combined report for performance of procedure and radiologic supervision and i nterpretation.
--- NOTE | 2017-10-18 17:18 | RADIOLOGY REPORT (SQ) ---
EXAM DESCRIPTION: FLUORO/CV PLACEMENT COMPLETED DATE/TIME: 10/18/2017 4:57 pm REASON FOR STUDY: PORTACATH COMPARISON: None. FLUOROSCOPY TIME: 0.2 minutes 5 images saved to PACS. TECHNIQUE: Intra-operative images acquired during surgical procedure to evaluate progress. NUMBER OF IMAGES: 5 LIMITATIONS: None. FINDINGS: Selected images from right-sided port placement. Port tip overlies SVC. IMPRESSION: IMAGE(S) OBTAINED DURING PROCEDURE. COMMENT: Quality ID [id number]: Final reports for procedures using fluoroscopy that document radiation exp osure indices, or exposure time and number of fluorographic images (if radiation exposure indices are not available) Please consult full operative report of the attending physician for description of the procedure. TECHNICAL DOCUMENTATION: JOB ID: [id number] [employer]- All Rights Reserved
--- NOTE | 2017-10-18 17:22 | Operative Report ---
Operative Report DATE OF SURGERY: 10/18/17 PREOPERATIVE DIAGNOSIS: High output ileostomy with recurrent dehydration. Morbid obesity. Phlebosclerosis POSTOPERATIVE DIAGNOSIS: High output ileostomy with recurrent dehydration. Morbid obesity. Phlebosclerosis OPERATION: Real-time ultrasound-guided right internal jugular single lumen port- a-cath insertion SURGEON: Leonid Sauer ANESTHESIA: LMAC TISSUE REMOVED OR ALTERED: none COMPLICATIONS: none ESTIMATED BLOOD LOSS: 10ml PROCEDURE: The patient was brought to the operating room and placed on the operating table. Anesthetic sedation was administered and she was positioned supine with both arms tucked by her side and a roll placed underneath her spine to expose her neck and chest wall as she is quite morbidly obese. Bilateral upper chest, neck and chin was prepped with chloraprep and sterile drapes laid. She received 2 g of Ancef. A timeout was done. Under sterile aseptic conditions, using real- time ultrasound guidance, the right internal jugular vein was localized and accessed with a needle and a guidewire passed through the needle into the vein. Fluoroscopy confirmed the position of the guidewire in the superior vena cava. A subcuatneous pocket was created in the right infraclavicular chest wall with excision of some of the fat. The catheter was then tunnelled from the subcutaneous pocket to the location of the guidewire in the neck. The catheter was measured and cut to a length of 25cm under fluoroscopic guidance. It was attached to the hub and the hub anchored to the subcutaneous pocket with 3-0 silk stitches. A [id number] sheath combo was then passed over the guidewire into the vein under fluoroscopic guidance and the guidewire and dilator removed. The catheter was then inserted through the peel-away sheath into the vein removing the peel-away sheath in it's entirety. Fluoroscopy confirmed good position of the catheter. The catheter was freely aspirated of blood and flushed with saline. The chest incision was closed in layers with 2-0 vicryl simple interrupted stitches to the subcutaneous layer and 4-0 monocryl, running subcuticular stitches to the skin. The wound was cleaned and dressed with dermabond. The patient tolerated the procedure well, she was taken to the PACU in stable condition. The port-a-cath can be used.
--- NOTE | 2017-10-18 21:04 | PDOC PROGRESS REPORT ---
Subjective Progress Note for:: 10/18/17 Subjective:: Patient had Port-A-Cath inserted today, the plan is for to obtain outpatient IV 3 times a week or fully this will reduce the frequency of hospital admission due to high output ileostomy bag Reason For Visit: ACUTE KIDNEY INJURY,METABOLIC ACIDOSIS Physical Exam Vital Signs: Temp Pulse Resp BP Pulse Ox 98.3 F 98 23 H 155/97 H 99 10/18/17 17:47 10/18/17 17:47 10/18/17 17:47 10/18/17 17:47 10/18/17 17:47 Intake & Output 10/17/17 10/18/17 10/19/17 06:59 06:59 06:59 Intake Total 4768 3860 550 Output Total 1430 4920 1324 Balance -6545 -790 -154 Weight 117 kg 116.5 kg General appearance: PRESENT: no acute distress Eye exam: PRESENT: PERRLA Respiratory exam: PRESENT: clear to auscultation stephen Cardiovascular exam: PRESENT: +S1, +S2 GI/Abdominal exam: PRESENT: soft Neurological exam: PRESENT: alert Results Laboratory Results: 10/18/17 09:04 10/18/17 09:04 10/18/17 10/18/17 09:04 09:04 WBC 5.5 RBC 3.41 L Hgb 9.6 L Hct 29.3 L MCV 86 MCH 28.1 MCHC 32.7 RDW 15.8 H Plt Count 202 Seg Neutrophils % 58.9 Lymphocytes % 24.3 Monocytes % 9.2 Eosinophils % 6.9 H Basophils % 0.7 Absolute Neutrophils 3.2 Absolute Lymphocytes 1.3 Absolute Monocytes 0.5 Absolute Eosinophils 0.4 Absolute Basophils 0.0 Sodium 138.4 Potassium 4.7 Chloride 103 Carbon Dioxide 28 Anion Gap 7 BUN 27 H Creatinine 1.99 H Est GFR ( Amer) 31 L Est GFR (Non-Af Amer) 26 L Glucose 56 L Calcium 8.2 L Total Bilirubin 0.4 AST 44 H ALT 43 Alkaline Phosphatase 76 Total Protein 6.6 Albumin 3.1 L 10/14/17 10/14/17 10/14/17 09:59 09:59 09:59 Creatine Kinase 271 H CK-MB (CK-2) 3.99 Troponin I 0.032 NT-Pro-B Natriuret Pep 215 10/14/17 10/14/17 10/14/17 17:00 17:00 20:42 Creatine Kinase 286 H 240 H CK-MB (CK-2) 3.65 Troponin I 0.021 NT-Pro-B Natriuret Pep 10/14/17 20:42 Creatine Kinase CK-MB (CK-2) 3.46 Troponin I 0.019 NT-Pro-B Natriuret Pep Impressions: Chest X-Ray 10/18/17 00:00 IMPRESSION: Please see combined report for performance of procedure and radiologic supervision and interpretation. Guidance Fluoroscopy 10/18/17 00:00 IMPRESSION: IMAGE(S) OBTAINED DURING PROCEDURE. Assessment & Plan - Diagnosis (1) Acute kidney injury Is this a current diagnosis for this admission?: Yes (2) Metabolic acidosis Is this a current diagnosis for this admission?: Yes (3) Morbid obesity Is this a current diagnosis for this admission?: Yes (4) Type 2 diabetes mellitus Qualifiers: Diabetes mellitus complication status: with neurologic complications Diabetes mellitus complication detail: with polyneuropathy Diabetes mellitus [facility] insulin use: with termite treater helper use Qualified Code(s): E11.42 - Type 2 diabetes mellitus with diabetic polyneuropathy; Z79.4 - director long term care (current) use of insulin; Z79.4 - [facility] (current) use of insulin; Z79.4 - director long term care ( current) use of insulin; Z79.4 - [facility] (current) use of insulin Is this a current diagnosis for this admission?: Yes
[2017-10-18] MEDS: ATORVASTATIN CALCIUM 10 MG TABLET PO SCH (22:16)
[2017-10-19] MEDS: GABAPENTIN 300 MG CAPSULE PO SCH ×3 (05:53→18:15)
[2017-10-19] MEDS: HEPARIN SOD (PORCINE) 5,000 UNIT/ML 1 ML SYRINGE SUBCUT SCH ×3 (05:54→21:57)
[2017-10-19] MEDS: HYDROMORPHONE HCL INJ/PF 2 MG/ML AMPULE IV PRN ×4 (05:54→20:21)
[2017-10-19] MEDS: CYCLOBENZAPRINE HCL 10 MG TABLET PO SCH ×3 (05:54→21:57)
[2017-10-19] MEDS: NORMAL SALINE 1000 ML 1,000 ML IV PRN ×2 (06:08→15:39)
[2017-10-19] MEDS: SODIUM BICARBONATE 650 MG TABLET PO SCH ×3 (09:12→18:15)
[2017-10-19] MEDS: FEBUXOSTAT 80 MG TABLET PO SCH (09:13)
[2017-10-19] MEDS: LOPERAMIDE HCL 2 MG CAPSULE PO SCH ×3 (09:13→18:16)
[2017-10-19] MEDS: MAGNESIUM OXIDE 400 MG TABLET PO SCH (09:13)
[2017-10-19] MEDS: PIOGLITAZONE HCL 30 MG TABLET PO SCH (09:13)
[2017-10-19] MEDS: GLIPIZIDE XL 5 MG TAB.ER.24 PO SCH (09:13)
[2017-10-19] MEDS: SITAGLIPTIN PHOSPHATE 25 MG TABLET PO SCH (09:13)
[2017-10-19] MEDS: ASPIRIN 81 MG TABLET, CHEWABLE PO SCH (09:14)
[2017-10-19] MEDS: INSULIN GLARGINE,HUM.REC.ANLOG 1,000 UNIT/10 ML UNIT SUBCUT SCH ×2 (09:19→23:42)
[2017-10-19] MEDS: INSULIN LISPRO 100 UNIT/ML 3 ML VIAL SUBCUT SCH ×3 (09:19→18:16)
[2017-10-19] MEDS: CLOTRIMAZOLE 1% TOPICAL SOLN 10 ML TP SCH ×2 (09:19→23:42)
[2017-10-19 09:35] LABS: ABSOLUTE EOSINOPHILS # (AUTO) 0.4 10^3/uL (0.0-0.6); ABSOLUTE LYMPHOCYTES (AUTO) 1.4 10^3/uL (0.5-4.7); ABSOLUTE MONOCYTES (AUTO) 0.5 10^3/uL (0.1-1.4); BASOPHILS % (AUTO) 0.4 % (0-2); EOSINOPHILS % (AUTO) 5.7 % (0-6); HEMATOCRIT 30.1 % (36.0-47.0); HEMOGLOBIN 9.7 g/dL (12.0-15.5); MEAN CORPUSCULAR HEMOGLOBIN 27.9 pg (27.0-33.4); MEAN CORPUSCULAR HGB CONC 32.3 g/dL (32.0-36.0); MEAN CORPUSCULAR VOLUME 86 fl (80-97); PLATELET COUNT 194 10^3/uL (150-450); RED BLOOD COUNT 3.49 10^6/uL (3.72-5.28); RED CELL DISTRIBUTION WIDTH 16.1 % (11.5-14.0); SEGMENTED NEUTROPHILS % (AUTO) 67.9 % (42-78); TOTAL CELLS COUNTED % (AUTO) 100 %; WHITE BLOOD COUNT 7.4 10^3/uL (4.0-10.5)
[2017-10-19 09:53] LABS: ALANINE AMINOTRANSFERASE 36 U/L (9-52); ALBUMIN 3.1 g/dL (3.5-5.0); ALKALINE PHOSPHATASE 78 U/L (38-126); ANION GAP 10 (5-19); ASPARTATE AMINO TRANSFERASE 39 U/L (14-36); BILIRUBIN,DIRECT 0.3 mg/dL (0.0-0.4); BILIRUBIN,TOTAL 0.3 mg/dL (0.2-1.3); BLOOD UREA NITROGEN 19 mg/dL (7-20); CALCIUM 7.7 mg/dL (8.4-10.2); CARBON DIOXIDE 25 mmol/L (22-30); CHLORIDE 106 mmol/L (98-107); GLUCOSE 99 mg/dL (75-110); POTASSIUM 4.7 mmol/L (3.6-5.0); SODIUM 140.5 mmol/L (137-145); TOTAL PROTEIN 6.2 g/dL (6.3-8.2)
--- NOTE | 2017-10-19 21:10 | PDOC PROGRESS REPORT ---
Subjective Progress Note for:: 10/19/17 Subjective:: She had Port-A-Cath done today, the plan is for the patient to continue outpatient IV therapy, probably once a week, this strategy will hopefully reduce the frequency of hospital readmission Reason For Visit: ACUTE KIDNEY INJURY,METABOLIC ACIDOSIS Physical Exam Vital Signs: Temp Pulse Resp BP Pulse Ox 99.8 F 95 18 161/84 H 97 10/19/17 15:38 10/19/17 15:38 10/19/17 15:38 10/19/17 15:38 10/19/17 15:38 Intake & Output 10/18/17 10/19/17 10/20/17 06:59 06:59 06:59 Intake Total 3860 7456 2194 Output Total 8946 8896 2533 Balance -790 249 128 Weight 116.5 kg 111.8 kg General appearance: PRESENT: no acute distress Eye exam: PRESENT: PERRLA Respiratory exam: PRESENT: clear to auscultation stephen Cardiovascular exam: PRESENT: +S1, +S2 GI/Abdominal exam: PRESENT: soft Neurological exam: PRESENT: alert, CN II-XII grossly intact Results Laboratory Results: 10/19/17 09:19 10/19/17 09:19 10/19/17 10/19/17 09:19 09:19 WBC 7.4 RBC 3.49 L Hgb 9.7 L Hct 30.1 L MCV 86 MCH 27.9 MCHC 32.3 RDW 16.1 H Plt Count 194 Seg Neutrophils % 67.9 Lymphocytes % 19.0 Monocytes % 7.0 Eosinophils % 5.7 Basophils % 0.4 Absolute Neutrophils 5.0 Absolute Lymphocytes 1.4 Absolute Monocytes 0.5 Absolute Eosinophils 0.4 Absolute Basophils 0.0 Sodium 140.5 Potassium 4.7 Chloride 106 Carbon Dioxide 25 Anion Gap 10 BUN 19 Creatinine 1.84 H Est GFR ( Amer) 34 L Est GFR (Non-Af Amer) 28 L Glucose 99 Calcium 7.7 L Total Bilirubin 0.3 AST 39 H ALT 36 Alkaline Phosphatase 78 Total Protein 6.2 L Albumin 3.1 L 10/14/17 10/14/17 10/14/17 09:59 09:59 09:59 Creatine Kinase 271 H CK-MB (CK-2) 3.99 Troponin I 0.032 NT-Pro-B Natriuret Pep 215 10/14/17 10/14/17 10/14/17 17:00 17:00 20:42 Creatine Kinase 286 H 240 H CK-MB (CK-2) 3.65 Troponin I 0.021 NT-Pro-B Natriuret Pep 10/14/17 20:42 Creatine Kinase CK-MB (CK-2) 3.46 Troponin I 0.019 NT-Pro-B Natriuret Pep Impressions: Chest X-Ray 10/18/17 00:00 IMPRESSION: Please see combined report for performance of procedure and radiologic supervision and interpretation. Guidance Fluoroscopy 10/18/17 00:00 IMPRESSION: IMAGE(S) OBTAINED DURING PROCEDURE. Assessment & Plan - Diagnosis (1) Acute kidney injury Is this a current diagnosis for this admission?: Yes (2) Metabolic acidosis Is this a current diagnosis for this admission?: Yes (3) Morbid obesity Is this a current diagnosis for this admission?: Yes (4) Type 2 diabetes mellitus Qualifiers: Diabetes mellitus complication status: with neurologic complications Diabetes mellitus complication detail: with polyneuropathy Diabetes mellitus terminal block assembler insulin use: with terminal block assembler use Qualified Code(s): E11.42 - Type 2 diabetes mellitus with diabetic polyneuropathy; Z79.4 - senior living (current) use of insulin; Z79.4 - equipment operator intermodal yard (current) use of insulin; Z79.4 - senior living ( current) use of insulin; Z79.4 - senior living (current) use of insulin Is this a current diagnosis for this admission?: Yes
[2017-10-19] MEDS: ATORVASTATIN CALCIUM 10 MG TABLET PO SCH (21:57)
[2017-10-20] MEDS: GABAPENTIN 300 MG CAPSULE PO SCH ×5 (00:32→23:26)
[2017-10-20] MEDS: HYDROMORPHONE HCL INJ/PF 2 MG/ML AMPULE IV PRN ×6 (00:33→22:12)
[2017-10-20] MEDS: NORMAL SALINE 1000 ML 1,000 ML IV PRN ×3 (00:40→17:31)
[2017-10-20 04:40] LABS: ABSOLUTE EOSINOPHILS # (AUTO) 0.4 10^3/uL (0.0-0.6); ABSOLUTE LYMPHOCYTES (AUTO) 1.6 10^3/uL (0.5-4.7); ABSOLUTE MONOCYTES (AUTO) 0.7 10^3/uL (0.1-1.4); ABSOLUTE NEUT (AUTO) 4.7 10^3/uL (1.7-8.2); BASOPHILS % (AUTO) 0.2 % (0-2); EOSINOPHILS % (AUTO) 4.9 % (0-6); HEMATOCRIT 29.1 % (36.0-47.0); HEMOGLOBIN 9.4 g/dL (12.0-15.5); MEAN CORPUSCULAR HGB CONC 32.3 g/dL (32.0-36.0); MEAN CORPUSCULAR VOLUME 87 fl (80-97); PLATELET COUNT 178 10^3/uL (150-450); RED BLOOD COUNT 3.36 10^6/uL (3.72-5.28); RED CELL DISTRIBUTION WIDTH 15.8 % (11.5-14.0); SEGMENTED NEUTROPHILS % (AUTO) 63.9 % (42-78); TOTAL CELLS COUNTED % (AUTO) 100 %; WHITE BLOOD COUNT 7.3 10^3/uL (4.0-10.5)
[2017-10-20 04:56] LABS: ALANINE AMINOTRANSFERASE 29 U/L (9-52); ALBUMIN 2.9 g/dL (3.5-5.0); ALKALINE PHOSPHATASE 70 U/L (38-126); ANION GAP 9 (5-19); ASPARTATE AMINO TRANSFERASE 35 U/L (14-36); BILIRUBIN,DIRECT 0.4 mg/dL (0.0-0.4); BILIRUBIN,TOTAL 0.4 mg/dL (0.2-1.3); BLOOD UREA NITROGEN 18 mg/dL (7-20); CALCIUM 7.8 mg/dL (8.4-10.2); CARBON DIOXIDE 24 mmol/L (22-30); CHLORIDE 108 mmol/L (98-107); GLUCOSE 85 mg/dL (75-110); POTASSIUM 4.5 mmol/L (3.6-5.0); SODIUM 140.6 mmol/L (137-145); TOTAL PROTEIN 6.3 g/dL (6.3-8.2)
[2017-10-20] MEDS: HEPARIN SOD (PORCINE) 5,000 UNIT/ML 1 ML SYRINGE SUBCUT SCH ×3 (06:09→22:12)
[2017-10-20] MEDS: CYCLOBENZAPRINE HCL 10 MG TABLET PO SCH ×3 (06:09→22:12)
[2017-10-20] MEDS: INSULIN LISPRO 100 UNIT/ML 3 ML VIAL SUBCUT SCH ×3 (08:47→17:32)
[2017-10-20] MEDS: SITAGLIPTIN PHOSPHATE 25 MG TABLET PO SCH (11:23)
[2017-10-20] MEDS: GLIPIZIDE XL 5 MG TAB.ER.24 PO SCH (11:24)
[2017-10-20] MEDS: MAGNESIUM OXIDE 400 MG TABLET PO SCH (11:24)
[2017-10-20] MEDS: FEBUXOSTAT 80 MG TABLET PO SCH (11:24)
[2017-10-20] MEDS: PIOGLITAZONE HCL 30 MG TABLET PO SCH (11:24)
[2017-10-20] MEDS: ASPIRIN 81 MG TABLET, CHEWABLE PO SCH (11:25)
[2017-10-20] MEDS: LOPERAMIDE HCL 2 MG CAPSULE PO SCH ×3 (11:25→17:31)
[2017-10-20] MEDS: SODIUM BICARBONATE 650 MG TABLET PO SCH ×3 (11:26→17:30)
[2017-10-20] MEDS: INSULIN GLARGINE,HUM.REC.ANLOG 1,000 UNIT/10 ML UNIT SUBCUT SCH ×2 (11:27→22:20)
[2017-10-20] MEDS: CLOTRIMAZOLE 1% TOPICAL SOLN 10 ML TP SCH ×2 (11:27→22:20)
[2017-10-20 15:46] LABS: ALANINE AMINOTRANSFERASE 30 U/L (9-52); ALKALINE PHOSPHATASE 70 U/L (38-126); ANION GAP 11 (5-19); ASPARTATE AMINO TRANSFERASE 30 U/L (14-36); BILIRUBIN,DIRECT 0.4 mg/dL (0.0-0.4); BILIRUBIN,TOTAL 0.4 mg/dL (0.2-1.3); BLOOD UREA NITROGEN 17 mg/dL (7-20); CALCIUM 7.8 mg/dL (8.4-10.2); CARBON DIOXIDE 22 mmol/L (22-30); CHLORIDE 106 mmol/L (98-107); GLUCOSE 125 mg/dL (75-110); POTASSIUM 4.3 mmol/L (3.6-5.0); SODIUM 138.7 mmol/L (137-145); TOTAL PROTEIN 6.3 g/dL (6.3-8.2)
[2017-10-20] MEDS ORDERED: NORMAL SALINE 1000 ML 1,000 ML IV PRN (17:39)
--- NOTE | 2017-10-20 17:45 | PDOC PROGRESS REPORT ---
Subjective Progress Note for:: 10/20/17 Subjective:: Patient was seen by the bedside, the serum creatinine is 1.8, she is not back to baseline yet. We are making arrangement for patient to receive IV fluids outpatient on a weekly basis hopefully this may reduce the frequency of inpatient care regarding high output ileostomy status with associated acute kidney injury, dehydration and electrolyte derangement Reason For Visit: ACUTE KIDNEY INJURY,METABOLIC ACIDOSIS Physical Exam Vital Signs: Temp Pulse Resp BP Pulse Ox 98.7 F 104 H 16 141/74 H 94 10/20/17 12:16 10/20/17 08:45 10/20/17 12:16 10/20/17 12:16 10/20/17 08:45 Intake & Output 10/19/17 10/20/17 10/21/17 06:59 06:59 06:59 Intake Total 1975 4533 1320 Output Total 2229 5000 Balance -249 -542 1320 Weight 111.8 kg 110 kg General appearance: PRESENT: no acute distress Eye exam: PRESENT: PERRLA Respiratory exam: PRESENT: clear to auscultation stephen Cardiovascular exam: PRESENT: +S1, +S2 GI/Abdominal exam: PRESENT: soft Neurological exam: PRESENT: alert, CN II-XII grossly intact Results Laboratory Results: 10/20/17 04:15 10/20/17 15:02 10/20/17 10/20/17 10/20/17 04:15 04:15 15:02 WBC 7.3 RBC 3.36 L Hgb 9.4 L Hct 29.1 L MCV 87 MCH 28.0 MCHC 32.3 RDW 15.8 H Plt Count 178 Seg Neutrophils % 63.9 Lymphocytes % 22.0 Monocytes % 9.0 Eosinophils % 4.9 Basophils % 0.2 Absolute Neutrophils 4.7 Absolute Lymphocytes 1.6 Absolute Monocytes 0.7 Absolute Eosinophils 0.4 Absolute Basophils 0.0 Sodium 140.6 138.7 Potassium 4.5 4.3 Chloride 108 H 106 Carbon Dioxide 24 22 Anion Gap 9 11 BUN 18 17 Creatinine 1.91 H 1.86 H Est GFR ( Amer) 32 L 33 L Est GFR (Non-Af Amer) 27 L 28 L Glucose 85 125 H Calcium 7.8 L 7.8 L Total Bilirubin 0.4 0.4 AST 35 30 ALT 29 30 Alkaline Phosphatase 70 70 Total Protein 6.3 6.3 Albumin 2.9 L 3.0 L 10/14/17 10/14/17 10/14/17 09:59 09:59 09:59 Creatine Kinase 271 H CK-MB (CK-2) 3.99 Troponin I 0.032 NT-Pro-B Natriuret Pep 215 10/14/17 10/14/17 10/14/17 17:00 17:00 20:42 Creatine Kinase 286 H 240 H CK-MB (CK-2) 3.65 Troponin I 0.021 NT-Pro-B Natriuret Pep 10/14/17 20:42 Creatine Kinase CK-MB (CK-2) 3.46 Troponin I 0.019 NT-Pro-B Natriuret Pep Impressions: Chest X-Ray 10/18/17 00:00 IMPRESSION: Please see combined report for performance of procedure and radiologic supervision and interpretation. Guidance Fluoroscopy 10/18/17 00:00 IMPRESSION: IMAGE(S) OBTAINED DURING PROCEDURE. Assessment & Plan - Diagnosis (1) Acute kidney injury Is this a current diagnosis for this admission?: Yes (2) Metabolic acidosis Is this a current diagnosis for this admission?: Yes (3) Morbid obesity Is this a current diagnosis for this admission?: Yes (4) Type 2 diabetes mellitus Qualifiers: Diabetes mellitus complication status: with neurologic complications Diabetes mellitus complication detail: with polyneuropathy Diabetes mellitus skilled nursing insulin use: with terminal system operator use Qualified Code(s): E11.42 - Type 2 diabetes mellitus with diabetic polyneuropathy; Z79.4 - snf (current) use of insulin; Z79.4 - rodent exterminator (current) use of insulin; Z79.4 - snf ( current) use of insulin; Z79.4 - rodent exterminator (current) use of insulin Is this a current diagnosis for this admission?: Yes
[2017-10-20] MEDS: ATORVASTATIN CALCIUM 10 MG TABLET PO SCH (22:12)
[2017-10-20] MEDS: MAGNESIUM SULFATE 1 GM/D5W 100 ML IV SCH ×2 (22:12→23:23)
[2017-10-21] MEDS: HYDROMORPHONE HCL INJ/PF 2 MG/ML AMPULE IV PRN ×4 (02:37→23:24)
[2017-10-21] MEDS: HEPARIN SOD (PORCINE) 5,000 UNIT/ML 1 ML SYRINGE SUBCUT SCH ×3 (05:00→21:27)
[2017-10-21] MEDS: GABAPENTIN 300 MG CAPSULE PO SCH ×4 (05:00→23:23)
[2017-10-21] MEDS: CYCLOBENZAPRINE HCL 10 MG TABLET PO SCH ×3 (05:00→21:27)
[2017-10-21] MEDS: NORMAL SALINE 1000 ML 1,000 ML IV PRN ×2 (05:01→13:40)
[2017-10-21] MEDS: INSULIN LISPRO 100 UNIT/ML 3 ML VIAL SUBCUT SCH ×3 (07:57→16:11)
[2017-10-21 08:34] LABS: ABSOLUTE EOSINOPHILS # (AUTO) 0.3 10^3/uL (0.0-0.6); ABSOLUTE LYMPHOCYTES (AUTO) 1.4 10^3/uL (0.5-4.7); ABSOLUTE MONOCYTES (AUTO) 0.6 10^3/uL (0.1-1.4); ABSOLUTE NEUT (AUTO) 5.2 10^3/uL (1.7-8.2); BASOPHILS % (AUTO) 0.2 % (0-2); HEMOGLOBIN 9.1 g/dL (12.0-15.5); MEAN CORPUSCULAR HGB CONC 32.4 g/dL (32.0-36.0); MEAN CORPUSCULAR VOLUME 87 fl (80-97); MONOCYTES % (AUTO) 7.8 % (3-13); PLATELET COUNT 170 10^3/uL (150-450); RED BLOOD COUNT 3.23 10^6/uL (3.72-5.28); TOTAL CELLS COUNTED % (AUTO) 100 %; WHITE BLOOD COUNT 7.6 10^3/uL (4.0-10.5)
[2017-10-21 08:54] LABS: ALANINE AMINOTRANSFERASE 26 U/L (9-52); ALBUMIN 2.9 g/dL (3.5-5.0); ALKALINE PHOSPHATASE 78 U/L (38-126); ANION GAP 8 (5-19); ASPARTATE AMINO TRANSFERASE 30 U/L (14-36); BILIRUBIN,DIRECT 0.4 mg/dL (0.0-0.4); BILIRUBIN,TOTAL 0.4 mg/dL (0.2-1.3); BLOOD UREA NITROGEN 14 mg/dL (7-20); CALCIUM 7.6 mg/dL (8.4-10.2); CARBON DIOXIDE 23 mmol/L (22-30); CHLORIDE 107 mmol/L (98-107); GLUCOSE 83 mg/dL (75-110); POTASSIUM 4.3 mmol/L (3.6-5.0); SODIUM 138.2 mmol/L (137-145); TOTAL PROTEIN 6.3 g/dL (6.3-8.2)
[2017-10-21] MEDS: MAGNESIUM OXIDE 400 MG TABLET PO SCH ×2 (10:13→18:33)
[2017-10-21] MEDS: LOPERAMIDE HCL 2 MG CAPSULE PO SCH ×3 (10:13→18:33)
[2017-10-21] MEDS: SODIUM BICARBONATE 650 MG TABLET PO SCH ×3 (10:13→18:33)
[2017-10-21] MEDS: ASPIRIN 81 MG TABLET, CHEWABLE PO SCH (10:13)
[2017-10-21] MEDS: MAGNESIUM SULFATE 1 GM/D5W 100 ML IV SCH ×2 (10:14→11:25)
[2017-10-21] MEDS: FEBUXOSTAT 80 MG TABLET PO SCH (10:14)
[2017-10-21] MEDS: PIOGLITAZONE HCL 30 MG TABLET PO SCH (10:14)
[2017-10-21] MEDS: SITAGLIPTIN PHOSPHATE 25 MG TABLET PO SCH (10:14)
[2017-10-21] MEDS: GLIPIZIDE XL 5 MG TAB.ER.24 PO SCH (10:14)
[2017-10-21] MEDS: INSULIN GLARGINE,HUM.REC.ANLOG 1,000 UNIT/10 ML UNIT SUBCUT SCH ×2 (10:15→22:00)
[2017-10-21] MEDS: CLOTRIMAZOLE 1% TOPICAL SOLN 10 ML TP SCH ×2 (10:15→22:00)
[2017-10-21] MEDS: COLCHICINE 0.6 MG TABLET PO SCH (20:40)
--- NOTE | 2017-10-21 21:08 | PDOC PROGRESS REPORT ---
Subjective Progress Note for:: 10/21/17 Subjective:: She was seen by the bedside she complained of right ankle pain, very tender highly suggestive of acute gout. The kidney function is improving Reason For Visit: ACUTE KIDNEY INJURY,METABOLIC ACIDOSIS Physical Exam Vital Signs: Temp Pulse Resp BP Pulse Ox 100.6 F H 100 16 144/82 H 100 10/21/17 19:36 10/21/17 19:36 10/21/17 19:36 10/21/17 19:36 10/21/17 19:36 Intake & Output 10/20/17 10/21/17 10/22/17 06:59 06:59 06:59 Intake Total 4539 3359 1815 Output Total 5043 2425 Balance -624 021 1213 Weight 110 kg 112.3 kg General appearance: PRESENT: no acute distress Eye exam: PRESENT: PERRLA Respiratory exam: PRESENT: clear to auscultation stephen Cardiovascular exam: PRESENT: +S1, +S2 GI/Abdominal exam: PRESENT: soft Results Laboratory Results: 10/21/17 08:00 10/21/17 08:00 10/21/17 10/21/17 08:00 08:00 WBC 7.6 RBC 3.23 L Hgb 9.1 L Hct 28.0 L MCV 87 MCH 28.0 MCHC 32.4 RDW 16.0 H Plt Count 170 Seg Neutrophils % 69.0 Lymphocytes % 19.0 Monocytes % 7.8 Eosinophils % 4.0 Basophils % 0.2 Absolute Neutrophils 5.2 Absolute Lymphocytes 1.4 Absolute Monocytes 0.6 Absolute Eosinophils 0.3 Absolute Basophils 0.0 Sodium 138.2 Potassium 4.3 Chloride 107 Carbon Dioxide 23 Anion Gap 8 BUN 14 Creatinine 1.81 H Est GFR ( Amer) 35 L Est GFR (Non-Af Amer) 29 L Glucose 83 Calcium 7.6 L Magnesium 1.0 L* Total Bilirubin 0.4 AST 30 ALT 26 Alkaline Phosphatase 78 Total Protein 6.3 Albumin 2.9 L 10/14/17 10/14/17 10/14/17 09:59 09:59 09:59 Creatine Kinase 271 H CK-MB (CK-2) 3.99 Troponin I 0.032 NT-Pro-B Natriuret Pep 215 10/14/17 10/14/17 10/14/17 17:00 17:00 20:42 Creatine Kinase 286 H 240 H CK-MB (CK-2) 3.65 Troponin I 0.021 NT-Pro-B Natriuret Pep 10/14/17 20:42 Creatine Kinase CK-MB (CK-2) 3.46 Troponin I 0.019 NT-Pro-B Natriuret Pep Impressions: Chest X-Ray 10/18/17 00:00 IMPRESSION: Please see combined report for performance of procedure and radiologic supervision and interpretation. Guidance Fluoroscopy 10/18/17 00:00 IMPRESSION: IMAGE(S) OBTAINED DURING PROCEDURE. Assessment & Plan - Diagnosis (1) Acute kidney injury Is this a current diagnosis for this admission?: Yes (2) Metabolic acidosis Is this a current diagnosis for this admission?: Yes (3) Morbid obesity Is this a current diagnosis for this admission?: Yes (4) Type 2 diabetes mellitus Qualifiers: Diabetes mellitus complication status: with neurologic complications Diabetes mellitus complication detail: with polyneuropathy Diabetes mellitus intermission coordinator insulin use: with intermission coordinator use Qualified Code(s): E11.42 - Type 2 diabetes mellitus with diabetic polyneuropathy; Z79.4 - correction (current) use of insulin; Z79.4 - long term care phlebotomist (current) use of insulin; Z79.4 - long term care phlebotomist ( current) use of insulin; Z79.4 - correction (current) use of insulin Is this a current diagnosis for this admission?: Yes (5) Acute gout of right ankle Qualifiers: Gout etiology: unspecified cause Qualified Code(s): M10.9 - Gout, unspecified Is this a current diagnosis for this admission?: Yes Plan: colchicine 0.6 twice daily
[2017-10-21] MEDS: ATORVASTATIN CALCIUM 10 MG TABLET PO SCH (21:27)
[2017-10-22] MEDS: HYDROMORPHONE HCL INJ/PF 2 MG/ML AMPULE IV PRN ×5 (04:28→22:20)
[2017-10-22] MEDS: NORMAL SALINE 1000 ML 1,000 ML IV PRN ×2 (04:30→15:38)
[2017-10-22] MEDS: CYCLOBENZAPRINE HCL 10 MG TABLET PO SCH ×3 (06:09→22:17)
[2017-10-22] MEDS: HEPARIN SOD (PORCINE) 5,000 UNIT/ML 1 ML SYRINGE SUBCUT SCH ×3 (06:09→22:16)
[2017-10-22] MEDS: GABAPENTIN 300 MG CAPSULE PO SCH ×4 (06:09→23:34)
[2017-10-22 06:28] LABS: ANION GAP 9 (5-19); BLOOD UREA NITROGEN 12 mg/dL (7-20); CALCIUM 7.9 mg/dL (8.4-10.2); CARBON DIOXIDE 23 mmol/L (22-30); CHLORIDE 107 mmol/L (98-107); GLUCOSE 53 mg/dL (75-110); POTASSIUM 4.1 mmol/L (3.6-5.0); SODIUM 138.9 mmol/L (137-145)
[2017-10-22] MEDS: COLCHICINE 0.6 MG TABLET PO SCH ×2 (08:35→22:16)
[2017-10-22] MEDS: INSULIN LISPRO 100 UNIT/ML 3 ML VIAL SUBCUT SCH ×3 (08:36→16:43)
[2017-10-22] MEDS: FEBUXOSTAT 80 MG TABLET PO SCH (11:32)
[2017-10-22] MEDS: GLIPIZIDE XL 5 MG TAB.ER.24 PO SCH (11:33)
[2017-10-22] MEDS: LOPERAMIDE HCL 2 MG CAPSULE PO SCH ×3 (11:33→18:26)
[2017-10-22] MEDS: PIOGLITAZONE HCL 30 MG TABLET PO SCH (11:33)
[2017-10-22] MEDS: ASPIRIN 81 MG TABLET, CHEWABLE PO SCH (11:33)
[2017-10-22] MEDS: SODIUM BICARBONATE 650 MG TABLET PO SCH ×3 (11:34→18:27)
[2017-10-22] MEDS: SITAGLIPTIN PHOSPHATE 25 MG TABLET PO SCH (11:34)
[2017-10-22] MEDS: MAGNESIUM OXIDE 400 MG TABLET PO SCH ×2 (11:34→18:27)
[2017-10-22] MEDS: CLOTRIMAZOLE 1% TOPICAL SOLN 10 ML TP SCH ×2 (11:35→22:24)
[2017-10-22] MEDS: INSULIN GLARGINE,HUM.REC.ANLOG 1,000 UNIT/10 ML UNIT SUBCUT SCH ×2 (11:35→22:24)
--- NOTE | 2017-10-22 21:15 | PDOC PROGRESS REPORT ---
Subjective Progress Note for:: 10/22/17 Subjective:: Patient is seen by the bedside kidney function continued to improve Reason For Visit: ACUTE KIDNEY INJURY,METABOLIC ACIDOSIS Physical Exam Vital Signs: Temp Pulse Resp BP Pulse Ox 99.2 F 90 21 H 142/83 H 97 10/22/17 19:07 10/22/17 19:07 10/22/17 19:07 10/22/17 19:07 10/22/17 19:07 Intake & Output 10/21/17 10/22/17 10/23/17 06:59 06:59 06:59 Intake Total 3359 3174 2034 Output Total 2425 1050 2400 Balance 934 2124 -366 Weight 112.3 kg 118 kg General appearance: PRESENT: no acute distress Eye exam: PRESENT: PERRLA Respiratory exam: PRESENT: clear to auscultation stephen Cardiovascular exam: PRESENT: +S1, +S2 Neurological exam: PRESENT: alert Results Laboratory Results: 10/21/17 08:00 10/22/17 04:50 10/22/17 04:50 Sodium 138.9 Potassium 4.1 Chloride 107 Carbon Dioxide 23 Anion Gap 9 BUN 12 Creatinine 1.69 H Est GFR ( Amer) 37 L Est GFR (Non-Af Amer) 31 L Glucose 53 L Calcium 7.9 L Magnesium 1.4 L 10/14/17 10/14/17 10/14/17 09:59 09:59 09:59 Creatine Kinase 271 H CK-MB (CK-2) 3.99 Troponin I 0.032 NT-Pro-B Natriuret Pep 215 10/14/17 10/14/17 10/14/17 17:00 17:00 20:42 Creatine Kinase 286 H 240 H CK-MB (CK-2) 3.65 Troponin I 0.021 NT-Pro-B Natriuret Pep 10/14/17 20:42 Creatine Kinase CK-MB (CK-2) 3.46 Troponin I 0.019 NT-Pro-B Natriuret Pep Impressions: Chest X-Ray 10/18/17 00:00 IMPRESSION: Please see combined report for performance of procedure and radiologic supervision and interpretation. Guidance Fluoroscopy 10/18/17 00:00 IMPRESSION: IMAGE(S) OBTAINED DURING PROCEDURE. Assessment & Plan - Diagnosis (1) Acute kidney injury Is this a current diagnosis for this admission?: Yes (2) Metabolic acidosis Is this a current diagnosis for this admission?: Yes (3) Morbid obesity Is this a current diagnosis for this admission?: Yes (4) Type 2 diabetes mellitus Qualifiers: Diabetes mellitus complication status: with neurologic complications Diabetes mellitus complication detail: with polyneuropathy Diabetes mellitus terminal manager insulin use: with group home use Qualified Code(s): E11.42 - Type 2 diabetes mellitus with diabetic polyneuropathy; Z79.4 - termination clerk (current) use of insulin; Z79.4 - termination clerk (current) use of insulin; Z79.4 - shelter ( current) use of insulin; Z79.4 - shelter (current) use of insulin Is this a current diagnosis for this admission?: Yes (5) Acute gout of right ankle Qualifiers: Gout etiology: unspecified cause Qualified Code(s): M10.9 - Gout, unspecified Is this a current diagnosis for this admission?: Yes
[2017-10-22] MEDS: ATORVASTATIN CALCIUM 10 MG TABLET PO SCH (22:17)
[2017-10-23] MEDS: NORMAL SALINE 1000 ML 1,000 ML IV PRN ×3 (02:07→20:25)
[2017-10-23] MEDS: HYDROMORPHONE HCL INJ/PF 2 MG/ML AMPULE IV PRN ×5 (02:44→20:28)
[2017-10-23] MEDS: GABAPENTIN 300 MG CAPSULE PO SCH ×3 (05:44→18:34)
[2017-10-23] MEDS: HEPARIN SOD (PORCINE) 5,000 UNIT/ML 1 ML SYRINGE SUBCUT SCH ×3 (05:44→22:58)
[2017-10-23] MEDS: CYCLOBENZAPRINE HCL 10 MG TABLET PO SCH ×3 (05:44→21:29)
[2017-10-23] MEDS: COLCHICINE 0.6 MG TABLET PO SCH ×2 (08:09→20:27)
[2017-10-23] MEDS: INSULIN LISPRO 100 UNIT/ML 3 ML VIAL SUBCUT SCH ×4 (08:10→18:34)
[2017-10-23] MEDS: SODIUM BICARBONATE 650 MG TABLET PO SCH ×3 (10:57→18:34)
[2017-10-23] MEDS: ASPIRIN 81 MG TABLET, CHEWABLE PO SCH (10:57)
[2017-10-23] MEDS: SITAGLIPTIN PHOSPHATE 25 MG TABLET PO SCH (10:58)
[2017-10-23] MEDS: FEBUXOSTAT 80 MG TABLET PO SCH (10:58)
[2017-10-23] MEDS: LOPERAMIDE HCL 2 MG CAPSULE PO SCH ×3 (10:58→18:33)
[2017-10-23] MEDS: MAGNESIUM OXIDE 400 MG TABLET PO SCH ×2 (10:58→18:33)
[2017-10-23] MEDS: PIOGLITAZONE HCL 30 MG TABLET PO SCH (10:58)
[2017-10-23] MEDS: GLIPIZIDE XL 5 MG TAB.ER.24 PO SCH (10:59)
[2017-10-23] MEDS: INSULIN GLARGINE,HUM.REC.ANLOG 1,000 UNIT/10 ML UNIT SUBCUT SCH ×2 (10:59→21:30)
[2017-10-23] MEDS: CLOTRIMAZOLE 1% TOPICAL SOLN 10 ML TP SCH ×2 (10:59→21:30)
--- NOTE | 2017-10-23 17:23 | PDOC PROGRESS REPORT ---
Subjective Progress Note for:: 10/23/17 Subjective:: No chest pain or difficulty with breathing. No nausea or vomiting. No abdominal pain. Continue to experience high output drainage from her ileostomy site. Reason For Visit: ACUTE KIDNEY INJURY,METABOLIC ACIDOSIS Physical Exam Vital Signs: Temp Pulse Resp BP Pulse Ox 98.3 F 88 16 145/75 H 97 10/23/17 16:00 10/23/17 16:00 10/23/17 16:00 10/23/17 16:00 10/23/17 16:00 Intake & Output 10/22/17 10/23/17 10/24/17 06:59 06:59 06:59 Intake Total 3174 4765 400 Output Total 1050 4550 1200 Balance 2124 215 -800 Weight 118 kg 119.4 kg General appearance: PRESENT: no acute distress Head exam: PRESENT: atraumatic, normocephalic Mouth exam: PRESENT: moist Respiratory exam: PRESENT: clear to auscultation stephen Cardiovascular exam: PRESENT: RRR. ABSENT: diastolic murmur, rubs, systolic murmur GI/Abdominal exam: PRESENT: normal bowel sounds, soft, other - ileostomy site ok.. ABSENT: distended, guarding, mass, organolmegaly, rebound, tenderness Extremities exam: ABSENT: pedal edema Neurological exam: PRESENT: alert, awake, oriented to person, oriented to place , oriented to time, oriented to situation, CN II-XII grossly intact. ABSENT: motor sensory deficit Psychiatric exam: PRESENT: appropriate affect, normal mood. ABSENT: homicidal ideation, suicidal ideation Skin exam: PRESENT: dry, intact, warm. ABSENT: cyanosis, rash Results Laboratory Results: 10/21/17 08:00 10/22/17 04:50 10/14/17 10/14/17 10/14/17 09:59 09:59 09:59 Creatine Kinase 271 H CK-MB (CK-2) 3.99 Troponin I 0.032 NT-Pro-B Natriuret Pep 215 10/14/17 10/14/17 10/14/17 17:00 17:00 20:42 Creatine Kinase 286 H 240 H CK-MB (CK-2) 3.65 Troponin I 0.021 NT-Pro-B Natriuret Pep 10/14/17 20:42 Creatine Kinase CK-MB (CK-2) 3.46 Troponin I 0.019 NT-Pro-B Natriuret Pep Impressions: Chest X-Ray 10/18/17 00:00 IMPRESSION: Please see combined report for performance of procedure and radiologic supervision and interpretation. Guidance Fluoroscopy 10/18/17 00:00 IMPRESSION: IMAGE(S) OBTAINED DURING PROCEDURE. Assessment & Plan - Diagnosis (1) High output ileostomy Plan: See covering attending physician orders. (2) Metabolic acidosis Is this a current diagnosis for this admission?: Yes Plan: See covering attending physician orders. (3) Acute kidney injury Is this a current diagnosis for this admission?: Yes Plan: See covering attending physician orders. (4) Type 2 diabetes mellitus Qualifiers: Diabetes mellitus complication status: with neurologic complications Diabetes mellitus complication detail: with polyneuropathy Diabetes mellitus long-term insulin use: with terminal operations supervisor use Qualified Code(s): E11.42 - Type 2 diabetes mellitus with diabetic polyneuropathy; Z79.4 - skilled nursing (current) use of insulin; Z79.4 - skilled nursing (current) use of insulin; Z79.4 - skilled nursing ( current) use of insulin; Z79.4 - terminal gauger (current) use of insulin Is this a current diagnosis for this admission?: Yes Plan: See covering attending physician orders. (5) Morbid obesity Is this a current diagnosis for this admission?: Yes Plan: See covering attending physician orders. - Time Time Spent with patient: 25-34 minutes Medications reviewed and adjusted accordingly: Yes Anticipated discharge: Home with Homehealth Within: Other - Inpatient Certification Based on my medical assessment, after consideration of the patient's comorbidities, presenting symptoms, or acuity I expect that the services needed warrant INPATIENT care.: Yes I certify that my determination is in accordance with my understanding of Medicare's requirements for reasonable and necessary INPATIENT services [42 CFR 412.3e].: Yes Medical Necessity: Need For IV Fluids, Need For Continuous Telemetry Monitoring , Risk of Complication if Not Cared For in Hospital Post Hospital Care: D/C Inspector And Clipper Documentation - Plan Summary Plan Summary: See covering attending physician orders.
[2017-10-23] MEDS: ATORVASTATIN CALCIUM 10 MG TABLET PO SCH (21:28)
[2017-10-23 21:48] LABS: HEMOGLOBIN 8.4 g/dL (12.0-15.5); MEAN CORPUSCULAR HGB CONC 32.3 g/dL (32.0-36.0); MEAN CORPUSCULAR VOLUME 87 fl (80-97); PLATELET COUNT 173 10^3/uL (150-450); RED BLOOD COUNT 2.99 10^6/uL (3.72-5.28); RED CELL DISTRIBUTION WIDTH 16.4 % (11.5-14.0); WHITE BLOOD COUNT 4.9 10^3/uL (4.0-10.5)
[2017-10-23 22:09] LABS: ALANINE AMINOTRANSFERASE 21 U/L (9-52); ALBUMIN 2.8 g/dL (3.5-5.0); ALKALINE PHOSPHATASE 63 U/L (38-126); ANION GAP 6 (5-19); ASPARTATE AMINO TRANSFERASE 26 U/L (14-36); BILIRUBIN,DIRECT 0.2 mg/dL (0.0-0.4); BILIRUBIN,TOTAL 0.2 mg/dL (0.2-1.3); BLOOD UREA NITROGEN 12 mg/dL (7-20); CALCIUM 8.4 mg/dL (8.4-10.2); CARBON DIOXIDE 24 mmol/L (22-30); CHLORIDE 109 mmol/L (98-107); CREATINE KINASE 67 U/L (30-135); GLUCOSE 110 mg/dL (75-110); POTASSIUM 4.7 mmol/L (3.6-5.0); SODIUM 138.8 mmol/L (137-145); TOTAL PROTEIN 6.2 g/dL (6.3-8.2)
--- NOTE | 2017-10-23 22:19 | EKG REPORT ---
SEVERITY:- ABNORMAL ECG - SINUS RHYTHM PROBABLE INFERIOR INFARCT, AGE INDETERMINATE : Confirmed by: Jaqui Marquis 23-Oct-2017 22:18:51
[2017-10-23 22:21] LABS: CREATINE KINASE MB 0.77 ng/mL (<4.55)
[2017-10-23 22:25] LABS: TROPONIN I < 0.012 ng/mL
[2017-10-24] MEDS: GABAPENTIN 300 MG CAPSULE PO SCH ×5 (00:46→22:31)
[2017-10-24] MEDS: HYDROMORPHONE HCL INJ/PF 2 MG/ML AMPULE IV PRN ×5 (00:46→23:22)
[2017-10-24] MEDS: HEPARIN SOD (PORCINE) 5,000 UNIT/ML 1 ML SYRINGE SUBCUT SCH ×3 (05:31→22:29)
[2017-10-24] MEDS: NORMAL SALINE 1000 ML 1,000 ML IV PRN ×2 (05:31→23:22)
[2017-10-24] MEDS ORDERED: CYCLOBENZAPRINE HCL 10 MG TABLET ONE (05:54)
[2017-10-24] MEDS: CYCLOBENZAPRINE HCL 10 MG TABLET PO SCH ×3 (06:11→22:30)
[2017-10-24] MEDS: INSULIN LISPRO 100 UNIT/ML 3 ML VIAL SUBCUT SCH ×3 (08:29→16:09)
[2017-10-24] MEDS: COLCHICINE 0.6 MG TABLET PO SCH ×2 (10:01→20:07)
[2017-10-24] MEDS: METOPROLOL SUCCINATE 50 MG TAB.SR.24H PO SCH (10:13)
[2017-10-24] MEDS: ERGOCALCIFEROL (VITAMIN D2) 50000 UNIT (1.25 MG) CAPSULE PO SCH (10:13)
[2017-10-24] MEDS: FEBUXOSTAT 80 MG TABLET PO SCH (10:13)
[2017-10-24] MEDS: LOPERAMIDE HCL 2 MG CAPSULE PO SCH ×3 (10:13→17:46)
[2017-10-24] MEDS: ASPIRIN 81 MG TABLET, CHEWABLE PO SCH (10:13)
[2017-10-24] MEDS: MAGNESIUM OXIDE 400 MG TABLET PO SCH ×2 (10:13→17:44)
[2017-10-24] MEDS: SITAGLIPTIN PHOSPHATE 25 MG TABLET PO SCH (10:13)
[2017-10-24] MEDS: GLIPIZIDE XL 5 MG TAB.ER.24 PO SCH (10:13)
[2017-10-24] MEDS: SODIUM BICARBONATE 650 MG TABLET PO SCH ×3 (10:14→17:45)
[2017-10-24] MEDS: PIOGLITAZONE HCL 30 MG TABLET PO SCH (10:14)
[2017-10-24] MEDS: CLOTRIMAZOLE 1% TOPICAL SOLN 10 ML TP SCH ×2 (10:15→22:38)
[2017-10-24] MEDS: INSULIN GLARGINE,HUM.REC.ANLOG 1,000 UNIT/10 ML UNIT SUBCUT SCH ×2 (10:15→22:38)
--- NOTE | 2017-10-24 15:22 | PDOC PROGRESS REPORT ---
Subjective Progress Note for:: 10/24/17 Subjective:: No chest pain or difficulty with breathing. No abdominal pain, nausea or vomiting. Continue to experience high output drainage from her ileostomy site. No fever or chills. Reason For Visit: ACUTE KIDNEY INJURY,METABOLIC ACIDOSIS Physical Exam Vital Signs: Temp Pulse Resp BP Pulse Ox 98.5 F 83 20 120/57 L 100 10/24/17 08:30 10/24/17 10:00 10/24/17 08:30 10/24/17 08:30 10/24/17 08:30 Intake & Output 10/23/17 10/24/17 10/25/17 06:59 06:59 06:59 Intake Total 4765 3720 840 Output Total 4550 3600 1250 Balance 215 120 -410 Weight 119.4 kg 119.3 kg Physical Exam: General appearance: PRESENT: no acute distress. morbidly obese Head exam: PRESENT: atraumatic, normocephalic Mouth exam: PRESENT: moist Respiratory exam: PRESENT: clear to auscultation stephen Cardiovascular exam: PRESENT: RRR. ABSENT: diastolic murmur, rubs, systolic murmur GI/Abdominal exam: PRESENT: normal bowel sounds, soft, other - ileostomy site ok.. ABSENT: distended, guarding, mass, organomegaly, rebound, tenderness Extremities exam: ABSENT: pedal edema Neurological exam: PRESENT: alert, awake, oriented to person, oriented to place , oriented to time, oriented to situation, CN II-XII grossly intact. ABSENT: motor sensory deficit Psychiatric exam: PRESENT: appropriate affect, normal mood. ABSENT: homicidal ideation, suicidal ideation Skin exam: PRESENT: dry, intact, warm. ABSENT: cyanosis, rash Results Laboratory Results: 10/23/17 21:25 10/23/17 21:25 10/23/17 10/23/17 21:25 21:25 WBC 4.9 RBC 2.99 L Hgb 8.4 L Hct 26.0 L MCV 87 MCH 28.0 MCHC 32.3 RDW 16.4 H Plt Count 173 Sodium 138.8 Potassium 4.7 Chloride 109 H Carbon Dioxide 24 Anion Gap 6 BUN 12 Creatinine 1.62 H Est GFR ( Amer) 39 L Est GFR (Non-Af Amer) 32 L Glucose 110 Calcium 8.4 Total Bilirubin 0.2 AST 26 ALT 21 Alkaline Phosphatase 63 Total Protein 6.2 L Albumin 2.8 L 10/14/17 10/14/17 10/14/17 09:59 09:59 09:59 Creatine Kinase 271 H CK-MB (CK-2) 3.99 Troponin I 0.032 NT-Pro-B Natriuret Pep 215 10/14/17 10/14/17 10/14/17 17:00 17:00 20:42 Creatine Kinase 286 H 240 H CK-MB (CK-2) 3.65 Troponin I 0.021 NT-Pro-B Natriuret Pep 10/14/17 10/23/17 10/23/17 20:42 21:25 21:25 Creatine Kinase 67 CK-MB (CK-2) 3.46 0.77 Troponin I 0.019 < 0.012 NT-Pro-B Natriuret Pep Impressions: Chest X-Ray 10/18/17 00:00 IMPRESSION: Please see combined report for performance of procedure and radiologic supervision and interpretation. Guidance Fluoroscopy 10/18/17 00:00 IMPRESSION: IMAGE(S) OBTAINED DURING PROCEDURE. 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 Qualified Code(s): E11.42 - Type 2 diabetes mellitus with diabetic polyneuropathy; Z79.4 - [facility] (current) use of insulin; Z79.4 - [facility] (current) use of insulin; Z79.4 - 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 ( 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) 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 insulin; Z79.4 - 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 (current) use of insulin Is this a current diagnosis for this admission?: Yes (5) Morbid obesity Is this a current diagnosis for this admission?: Yes - Time Time Spent with patient: 25-34 minutes Medications reviewed and adjusted accordingly: Yes Anticipated discharge: Home Within: Other - Inpatient Certification Based on my medical assessment, after consideration of the patient's comorbidities, presenting symptoms, or acuity I expect that the services needed warrant INPATIENT care.: Yes I certify that my determination is in accordance with my understanding of Medicare's requirements for reasonable and necessary INPATIENT services [42 CFR 412.3e].: Yes Medical Necessity: Need Close Monitoring Due to Risk of Patient Decompensation, Need For IV Fluids, Risk of Complication if Not Cared For in Hospital Post Hospital Care: D/C Supervisor [facility] Documentation - Plan Summary Plan Summary: Continue IV fluid support. Repeated CBC and BMP in AM. Maintain on all current medication management.
[2017-10-24 16:24] LABS: ALANINE AMINOTRANSFERASE 23 U/L (9-52); ALBUMIN 3.2 g/dL (3.5-5.0); ALKALINE PHOSPHATASE 69 U/L (38-126); ANION GAP 9 (5-19); ASPARTATE AMINO TRANSFERASE 29 U/L (14-36); BILIRUBIN,DIRECT 0.2 mg/dL (0.0-0.4); BILIRUBIN,TOTAL 0.2 mg/dL (0.2-1.3); BLOOD UREA NITROGEN 11 mg/dL (7-20); CALCIUM 8.7 mg/dL (8.4-10.2); CARBON DIOXIDE 23 mmol/L (22-30); CHLORIDE 108 mmol/L (98-107); GLUCOSE 110 mg/dL (75-110); POTASSIUM 5.1 mmol/L (3.6-5.0); SODIUM 139.7 mmol/L (137-145); TOTAL PROTEIN 6.8 g/dL (6.3-8.2)
[2017-10-24] MEDS: ATORVASTATIN CALCIUM 10 MG TABLET PO SCH (22:29)
[2017-10-25] MEDS: HYDROMORPHONE HCL INJ/PF 2 MG/ML AMPULE IV PRN ×5 (03:24→22:26)
[2017-10-25] MEDS: GABAPENTIN 300 MG CAPSULE PO SCH ×4 (06:05→23:12)
[2017-10-25] MEDS: HEPARIN SOD (PORCINE) 5,000 UNIT/ML 1 ML SYRINGE SUBCUT SCH ×3 (06:05→22:22)
[2017-10-25] MEDS: CYCLOBENZAPRINE HCL 10 MG TABLET PO SCH ×3 (06:05→22:26)
[2017-10-25 07:21] LABS: ALANINE AMINOTRANSFERASE 26 U/L (9-52); ALBUMIN 2.9 g/dL (3.5-5.0); ALKALINE PHOSPHATASE 67 U/L (38-126); ANION GAP 7 (5-19); ASPARTATE AMINO TRANSFERASE 28 U/L (14-36); BILIRUBIN,DIRECT 0.3 mg/dL (0.0-0.4); BILIRUBIN,TOTAL 0.3 mg/dL (0.2-1.3); BLOOD UREA NITROGEN 12 mg/dL (7-20); CALCIUM 8.5 mg/dL (8.4-10.2); CARBON DIOXIDE 22 mmol/L (22-30); CHLORIDE 111 mmol/L (98-107); GLUCOSE 64 mg/dL (75-110); SODIUM 139.7 mmol/L (137-145); TOTAL PROTEIN 6.5 g/dL (6.3-8.2)
[2017-10-25] MEDS: COLCHICINE 0.6 MG TABLET PO SCH (07:39)
[2017-10-25] MEDS: INSULIN LISPRO 100 UNIT/ML 3 ML VIAL SUBCUT SCH ×3 (07:42→18:12)
[2017-10-25] MEDS: ASPIRIN 81 MG TABLET, CHEWABLE PO SCH (09:19)
[2017-10-25] MEDS: METOPROLOL SUCCINATE 50 MG TAB.SR.24H PO SCH (09:19)
[2017-10-25] MEDS: LOPERAMIDE HCL 2 MG CAPSULE PO SCH ×3 (09:19→18:06)
[2017-10-25] MEDS: MAGNESIUM OXIDE 400 MG TABLET PO SCH ×2 (09:19→18:06)
[2017-10-25] MEDS: GLIPIZIDE XL 5 MG TAB.ER.24 PO SCH (09:19)
[2017-10-25] MEDS: SITAGLIPTIN PHOSPHATE 25 MG TABLET PO SCH (09:20)
[2017-10-25] MEDS: PIOGLITAZONE HCL 30 MG TABLET PO SCH (09:20)
[2017-10-25] MEDS: FEBUXOSTAT 80 MG TABLET PO SCH (09:20)
[2017-10-25] MEDS: SODIUM BICARBONATE 650 MG TABLET PO SCH ×3 (09:20→17:58)
[2017-10-25] MEDS: INSULIN GLARGINE,HUM.REC.ANLOG 1,000 UNIT/10 ML UNIT SUBCUT SCH (09:21)
[2017-10-25] MEDS: CLOTRIMAZOLE 1% TOPICAL SOLN 10 ML TP SCH (09:21)
[2017-10-25] MEDS: NORMAL SALINE 1000 ML 1,000 ML IV PRN (19:18)
[2017-10-25] MEDS ORDERED: (PENDING PHARMACY ID) (Exenatide Microspheres [Bydureon Pen] 2 MG) SQ SCH (20:30)
--- NOTE | 2017-10-25 20:45 | PDOC PROGRESS REPORT ---
Subjective Progress Note for:: 10/25/17 Subjective:: Patient was seen by the bedside, continues hydration Reason For Visit: ACUTE KIDNEY INJURY,METABOLIC ACIDOSIS Physical Exam Vital Signs: Temp Pulse Resp BP Pulse Ox 97.9 F 77 20 157/85 H 100 10/25/17 15:41 10/25/17 15:41 10/25/17 15:41 10/25/17 15:41 10/25/17 15:41 Intake & Output 10/24/17 10/25/17 10/26/17 06:59 06:59 06:59 Intake Total 3720 3416 1120 Output Total 3600 4650 2900 Balance 120 -1234 -1780 Weight 119.3 kg 120.1 kg General appearance: PRESENT: no acute distress Eye exam: PRESENT: PERRLA Respiratory exam: PRESENT: clear to auscultation stephen Cardiovascular exam: PRESENT: +S1, +S2 GI/Abdominal exam: PRESENT: soft Neurological exam: PRESENT: alert Results Laboratory Results: 10/23/17 21:25 10/25/17 06:30 10/25/17 06:30 Sodium 139.7 Potassium 5.0 Chloride 111 H Carbon Dioxide 22 Anion Gap 7 BUN 12 Creatinine 1.59 H Est GFR ( Amer) 40 L Est GFR (Non-Af Amer) 33 L Glucose 64 L Calcium 8.5 Total Bilirubin 0.3 AST 28 ALT 26 Alkaline Phosphatase 67 Total Protein 6.5 Albumin 2.9 L 10/14/17 10/14/17 10/14/17 09:59 09:59 09:59 Creatine Kinase 271 H CK-MB (CK-2) 3.99 Troponin I 0.032 NT-Pro-B Natriuret Pep 215 10/14/17 10/14/17 10/14/17 17:00 17:00 20:42 Creatine Kinase 286 H 240 H CK-MB (CK-2) 3.65 Troponin I 0.021 NT-Pro-B Natriuret Pep 10/14/17 10/23/17 10/23/17 20:42 21:25 21:25 Creatine Kinase 67 CK-MB (CK-2) 3.46 0.77 Troponin I 0.019 < 0.012 NT-Pro-B Natriuret Pep Impressions: Chest X-Ray 10/18/17 00:00 IMPRESSION: Please see combined report for performance of procedure and radiologic supervision and interpretation. Guidance Fluoroscopy 10/18/17 00:00 IMPRESSION: IMAGE(S) OBTAINED DURING PROCEDURE. 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
[2017-10-25] MEDS ORDERED: ALBUTEROL SULFATE HFA (90 MCG/PUFF) 200 PUFF/8.5 GM MDI IH PRN (21:26)
[2017-10-25] MEDS ORDERED: DEXTROSE 40% GEL 15 GM TUBE PO PRN ×2 (21:27)
[2017-10-25] MEDS ORDERED: DEXTROSE 50%-WATER 25 GM/50 ML DISP.SYRIN IV PRN ×2 (21:27→21:28)
[2017-10-25] MEDS ORDERED: GLUCAGON,HUMAN RECOMB 1 MG INJ SUBCUT PRN (21:28)
[2017-10-25] MEDS: ATORVASTATIN CALCIUM 10 MG TABLET PO SCH (22:26)
[2017-10-25] MEDS ORDERED: COLCHICINE 0.6 MG TABLET PO ONE (22:30)
[2017-10-26] MEDS: INSULIN GLARGINE,HUM.REC.ANLOG 1,000 UNIT/10 ML UNIT SUBCUT SCH ×3 (02:24→22:45)
[2017-10-26] MEDS: CLOTRIMAZOLE 1% TOPICAL SOLN 10 ML TP SCH ×3 (02:24→23:01)
[2017-10-26] MEDS: HYDROMORPHONE HCL INJ/PF 2 MG/ML AMPULE IV PRN ×5 (03:03→19:50)
[2017-10-26] MEDS: NORMAL SALINE 1000 ML 1,000 ML IV PRN ×3 (03:12→22:55)
[2017-10-26] MEDS: GABAPENTIN 300 MG CAPSULE PO SCH ×4 (06:08→23:02)
[2017-10-26] MEDS: CYCLOBENZAPRINE HCL 10 MG TABLET PO SCH ×3 (06:09→22:56)
[2017-10-26] MEDS: HEPARIN SOD (PORCINE) 5,000 UNIT/ML 1 ML SYRINGE SUBCUT SCH ×3 (06:09→22:57)
[2017-10-26] MEDS: COLCHICINE 0.6 MG TABLET PO SCH ×2 (08:09→19:50)
[2017-10-26] MEDS: INSULIN LISPRO 100 UNIT/ML 3 ML VIAL SUBCUT SCH ×3 (09:15→19:23)
[2017-10-26] MEDS: MAGNESIUM OXIDE 400 MG TABLET PO SCH ×2 (09:56→19:01)
[2017-10-26] MEDS: METOPROLOL SUCCINATE 50 MG TAB.SR.24H PO SCH (09:56)
[2017-10-26] MEDS: LOPERAMIDE HCL 2 MG CAPSULE PO SCH ×3 (09:56→19:01)
[2017-10-26] MEDS: GLIPIZIDE XL 5 MG TAB.ER.24 PO SCH (09:57)
[2017-10-26] MEDS: FEBUXOSTAT 80 MG TABLET PO SCH (09:57)
[2017-10-26] MEDS: PIOGLITAZONE HCL 30 MG TABLET PO SCH (09:57)
[2017-10-26] MEDS: ASPIRIN 81 MG TABLET, CHEWABLE PO SCH (09:57)
[2017-10-26] MEDS: SITAGLIPTIN PHOSPHATE 25 MG TABLET PO SCH (09:57)
[2017-10-26] MEDS: SODIUM BICARBONATE 650 MG TABLET PO SCH ×3 (09:57→19:01)
[2017-10-26 10:15] LABS: ABSOLUTE EOSINOPHILS # (AUTO) 0.3 10^3/uL (0.0-0.6); ABSOLUTE LYMPHOCYTES (AUTO) 1.2 10^3/uL (0.5-4.7); ABSOLUTE MONOCYTES (AUTO) 0.5 10^3/uL (0.1-1.4); ABSOLUTE NEUT (AUTO) 4.6 10^3/uL (1.7-8.2); BASOPHILS % (AUTO) 0.6 % (0-2); EOSINOPHILS % (AUTO) 4.1 % (0-6); HEMATOCRIT 27.8 % (36.0-47.0); LYMPHOCYTES % (AUTO) 17.7 % (13-45); MEAN CORPUSCULAR HEMOGLOBIN 28.2 pg (27.0-33.4); MEAN CORPUSCULAR HGB CONC 32.6 g/dL (32.0-36.0); MEAN CORPUSCULAR VOLUME 87 fl (80-97); MONOCYTES % (AUTO) 7.6 % (3-13); PLATELET COUNT 186 10^3/uL (150-450); RED BLOOD COUNT 3.21 10^6/uL (3.72-5.28); RED CELL DISTRIBUTION WIDTH 16.6 % (11.5-14.0); TOTAL CELLS COUNTED % (AUTO) 100 %; WHITE BLOOD COUNT 6.6 10^3/uL (4.0-10.5)
[2017-10-26 10:30] LABS: ALANINE AMINOTRANSFERASE 21 U/L (9-52); ALBUMIN 3.2 g/dL (3.5-5.0); ALKALINE PHOSPHATASE 69 U/L (38-126); ANION GAP 9 (5-19); ASPARTATE AMINO TRANSFERASE 28 U/L (14-36); BILIRUBIN,DIRECT 0.2 mg/dL (0.0-0.4); BILIRUBIN,TOTAL 0.2 mg/dL (0.2-1.3); BLOOD UREA NITROGEN 13 mg/dL (7-20); CALCIUM 8.6 mg/dL (8.4-10.2); CARBON DIOXIDE 23 mmol/L (22-30); CHLORIDE 110 mmol/L (98-107); GLUCOSE 94 mg/dL (75-110); POTASSIUM 4.8 mmol/L (3.6-5.0); SODIUM 141.8 mmol/L (137-145); TOTAL PROTEIN 6.4 g/dL (6.3-8.2)
--- NOTE | 2017-10-26 22:44 | PDOC PROGRESS REPORT ---
Subjective Progress Note for:: 10/26/17 Subjective:: Patient was seen by the bedside, the serum creatinine is 1.5 the goal is to normalize kidney function before discharge Reason For Visit: ACUTE KIDNEY INJURY,METABOLIC ACIDOSIS Physical Exam Vital Signs: Temp Pulse Resp BP Pulse Ox 98.3 F 94 19 146/76 H 98 10/26/17 12:02 10/26/17 12:02 10/26/17 12:00 10/26/17 12:02 10/26/17 08:18 Intake & Output 10/25/17 10/26/17 10/27/17 06:59 06:59 06:59 Intake Total 3416 2440 Output Total 4650 4650 Balance -1234 -2210 Weight 120.1 kg 121.9 kg General appearance: PRESENT: no acute distress Eye exam: PRESENT: PERRLA Respiratory exam: PRESENT: clear to auscultation stephen Cardiovascular exam: PRESENT: +S1, +S2 Neurological exam: PRESENT: alert Results Laboratory Results: 10/26/17 09:48 10/26/17 09:48 10/26/17 10/26/17 09:48 09:48 WBC 6.6 RBC 3.21 L Hgb 9.0 L Hct 27.8 L MCV 87 MCH 28.2 MCHC 32.6 RDW 16.6 H Plt Count 186 Seg Neutrophils % 70.0 Lymphocytes % 17.7 Monocytes % 7.6 Eosinophils % 4.1 Basophils % 0.6 Absolute Neutrophils 4.6 Absolute Lymphocytes 1.2 Absolute Monocytes 0.5 Absolute Eosinophils 0.3 Absolute Basophils 0.0 Sodium 141.8 Potassium 4.8 Chloride 110 H Carbon Dioxide 23 Anion Gap 9 BUN 13 Creatinine 1.49 H Est GFR ( Amer) 43 L Est GFR (Non-Af Amer) 36 L Glucose 94 Calcium 8.6 Total Bilirubin 0.2 AST 28 ALT 21 Alkaline Phosphatase 69 Total Protein 6.4 Albumin 3.2 L 10/14/17 10/14/17 10/14/17 09:59 09:59 09:59 Creatine Kinase 271 H CK-MB (CK-2) 3.99 Troponin I 0.032 NT-Pro-B Natriuret Pep 215 10/14/17 10/14/17 10/14/17 17:00 17:00 20:42 Creatine Kinase 286 H 240 H CK-MB (CK-2) 3.65 Troponin I 0.021 NT-Pro-B Natriuret Pep 10/14/17 10/23/17 10/23/17 20:42 21:25 21:25 Creatine Kinase 67 CK-MB (CK-2) 3.46 0.77 Troponin I 0.019 < 0.012 NT-Pro-B Natriuret Pep Impressions: Chest X-Ray 10/18/17 00:00 IMPRESSION: Please see combined report for performance of procedure and radiologic supervision and interpretation. Guidance Fluoroscopy 10/18/17 00:00 IMPRESSION: IMAGE(S) OBTAINED DURING PROCEDURE. 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
[2017-10-26] MEDS: ATORVASTATIN CALCIUM 10 MG TABLET PO SCH (22:56)
[2017-10-27] MEDS: HYDROMORPHONE HCL INJ/PF 2 MG/ML AMPULE IV PRN ×6 (00:04→22:25)
[2017-10-27] MEDS: GABAPENTIN 300 MG CAPSULE PO SCH ×4 (05:06→23:00)
[2017-10-27] MEDS: CYCLOBENZAPRINE HCL 10 MG TABLET PO SCH ×3 (05:06→22:58)
[2017-10-27] MEDS: HEPARIN SOD (PORCINE) 5,000 UNIT/ML 1 ML SYRINGE SUBCUT SCH ×3 (05:08→22:50)
[2017-10-27 06:52] LABS: ALANINE AMINOTRANSFERASE 25 U/L (9-52); ALKALINE PHOSPHATASE 70 U/L (38-126); ANION GAP 8 (5-19); ASPARTATE AMINO TRANSFERASE 28 U/L (14-36); BILIRUBIN,DIRECT 0.3 mg/dL (0.0-0.4); BILIRUBIN,TOTAL 0.3 mg/dL (0.2-1.3); BLOOD UREA NITROGEN 15 mg/dL (7-20); CALCIUM 8.3 mg/dL (8.4-10.2); CARBON DIOXIDE 23 mmol/L (22-30); CHLORIDE 111 mmol/L (98-107); GLUCOSE 65 mg/dL (75-110); POTASSIUM 4.6 mmol/L (3.6-5.0); SODIUM 142.4 mmol/L (137-145); TOTAL PROTEIN 6.5 g/dL (6.3-8.2)
[2017-10-27 07:20] LABS: ABSOLUTE EOSINOPHILS # (AUTO) 0.3 10^3/uL (0.0-0.6); ABSOLUTE LYMPHOCYTES (AUTO) 1.4 10^3/uL (0.5-4.7); ABSOLUTE MONOCYTES (AUTO) 0.5 10^3/uL (0.1-1.4); ABSOLUTE NEUT (AUTO) 3.7 10^3/uL (1.7-8.2); BASOPHILS % (AUTO) 0.4 % (0-2); EOSINOPHILS % (AUTO) 4.5 % (0-6); HEMOGLOBIN 8.7 g/dL (12.0-15.5); LYMPHOCYTES % (AUTO) 24.5 % (13-45); MEAN CORPUSCULAR HEMOGLOBIN 28.1 pg (27.0-33.4); MEAN CORPUSCULAR HGB CONC 32.2 g/dL (32.0-36.0); MEAN CORPUSCULAR VOLUME 87 fl (80-97); MONOCYTES % (AUTO) 8.2 % (3-13); PLATELET COUNT 189 10^3/uL (150-450); SEGMENTED NEUTROPHILS % (AUTO) 62.4 % (42-78); TOTAL CELLS COUNTED % (AUTO) 100 %; WHITE BLOOD COUNT 5.9 10^3/uL (4.0-10.5)
[2017-10-27] MEDS: MAGNESIUM OXIDE 400 MG TABLET PO SCH ×2 (09:11→18:18)
[2017-10-27] MEDS: COLCHICINE 0.6 MG TABLET PO SCH ×2 (09:11→20:16)
[2017-10-27] MEDS: LOPERAMIDE HCL 2 MG CAPSULE PO SCH ×3 (09:11→18:18)
[2017-10-27] MEDS: PIOGLITAZONE HCL 30 MG TABLET PO SCH (09:12)
[2017-10-27] MEDS: ASPIRIN 81 MG TABLET, CHEWABLE PO SCH (09:12)
[2017-10-27] MEDS: SITAGLIPTIN PHOSPHATE 25 MG TABLET PO SCH (09:12)
[2017-10-27] MEDS: METOPROLOL SUCCINATE 50 MG TAB.SR.24H PO SCH (09:12)
[2017-10-27] MEDS: FEBUXOSTAT 80 MG TABLET PO SCH (09:12)
[2017-10-27] MEDS: SODIUM BICARBONATE 650 MG TABLET PO SCH ×3 (09:12→18:18)
[2017-10-27] MEDS: GLIPIZIDE XL 5 MG TAB.ER.24 PO SCH (09:12)
[2017-10-27] MEDS: NORMAL SALINE 1000 ML 1,000 ML IV PRN (09:23)
[2017-10-27] MEDS: CLOTRIMAZOLE 1% TOPICAL SOLN 10 ML TP SCH ×2 (10:58→22:58)
[2017-10-27] MEDS: INSULIN LISPRO 100 UNIT/ML 3 ML VIAL SUBCUT SCH (10:58)
[2017-10-27] MEDS: INSULIN GLARGINE,HUM.REC.ANLOG 1,000 UNIT/10 ML UNIT SUBCUT SCH ×2 (10:58→22:58)
[2017-10-27] MEDS ORDERED: NORMAL SALINE 1000 ML 4,000 ML IV PRN (15:58)
[2017-10-27 19:10] LABS: ANION GAP 8 (5-19); BLOOD UREA NITROGEN 14 mg/dL (7-20); CALCIUM 8.5 mg/dL (8.4-10.2); CARBON DIOXIDE 24 mmol/L (22-30); CHLORIDE 109 mmol/L (98-107); GLUCOSE 120 mg/dL (75-110); POTASSIUM 4.7 mmol/L (3.6-5.0)
[2017-10-27] MEDS ORDERED: NORMAL SALINE 1000 ML 1,000 ML IV PRN (20:05)
[2017-10-27] MEDS: ATORVASTATIN CALCIUM 10 MG TABLET PO SCH (22:52)
[2017-10-28] MEDS: HYDROMORPHONE HCL INJ/PF 2 MG/ML AMPULE IV PRN ×4 (03:02→20:34)
[2017-10-28] MEDS: INSULIN LISPRO 100 UNIT/ML 3 ML VIAL SUBCUT SCH ×3 (04:30→17:20)
[2017-10-28] MEDS: GABAPENTIN 300 MG CAPSULE PO SCH ×4 (05:59→22:58)
[2017-10-28] MEDS: HEPARIN SOD (PORCINE) 5,000 UNIT/ML 1 ML SYRINGE SUBCUT SCH ×3 (06:00→22:56)
[2017-10-28] MEDS: CYCLOBENZAPRINE HCL 10 MG TABLET PO SCH ×3 (06:00→22:57)
[2017-10-28] MEDS: COLCHICINE 0.6 MG TABLET PO SCH ×2 (07:31→20:35)
[2017-10-28] MEDS ORDERED: NORMAL SALINE 1000 ML 1,000 ML IV PRN ×2 (08:57→23:33)
[2017-10-28] MEDS ORDERED: NORMAL SALINE 1000 ML 4,000 ML IV PRN (09:00)
[2017-10-28] MEDS: MAGNESIUM OXIDE 400 MG TABLET PO SCH ×2 (10:18→17:11)
[2017-10-28] MEDS: METOPROLOL SUCCINATE 50 MG TAB.SR.24H PO SCH (10:18)
[2017-10-28] MEDS: PIOGLITAZONE HCL 30 MG TABLET PO SCH (10:18)
[2017-10-28] MEDS: ASPIRIN 81 MG TABLET, CHEWABLE PO SCH (10:18)
[2017-10-28] MEDS: LOPERAMIDE HCL 2 MG CAPSULE PO SCH ×3 (10:18→17:11)
[2017-10-28] MEDS: SODIUM BICARBONATE 650 MG TABLET PO SCH ×3 (10:19→17:11)
[2017-10-28] MEDS: FEBUXOSTAT 80 MG TABLET PO SCH (10:19)
[2017-10-28] MEDS: SITAGLIPTIN PHOSPHATE 25 MG TABLET PO SCH (10:19)
[2017-10-28] MEDS: GLIPIZIDE XL 5 MG TAB.ER.24 PO SCH (10:19)
[2017-10-28] MEDS: CLOTRIMAZOLE 1% TOPICAL SOLN 10 ML TP SCH ×2 (14:40→22:58)
[2017-10-28] MEDS: INSULIN GLARGINE,HUM.REC.ANLOG 1,000 UNIT/10 ML UNIT SUBCUT SCH ×2 (14:40→22:58)
[2017-10-28 19:56] LABS: ALANINE AMINOTRANSFERASE 24 U/L (9-52); ALBUMIN 2.9 g/dL (3.5-5.0); ALKALINE PHOSPHATASE 64 U/L (38-126); ANION GAP 8 (5-19); ASPARTATE AMINO TRANSFERASE 27 U/L (14-36); BILIRUBIN,DIRECT 0.3 mg/dL (0.0-0.4); BILIRUBIN,TOTAL 0.3 mg/dL (0.2-1.3); BLOOD UREA NITROGEN 13 mg/dL (7-20); CALCIUM 8.1 mg/dL (8.4-10.2); CARBON DIOXIDE 24 mmol/L (22-30); CHLORIDE 111 mmol/L (98-107); GLUCOSE 121 mg/dL (75-110); POTASSIUM 4.7 mmol/L (3.6-5.0); SODIUM 142.6 mmol/L (137-145); TOTAL PROTEIN 6.3 g/dL (6.3-8.2)
--- NOTE | 2017-10-28 21:03 | PDOC PROGRESS REPORT ---
Subjective Progress Note for:: 10/27/17 Subjective:: Patient continues to require hydration Reason For Visit: ACUTE KIDNEY INJURY,METABOLIC ACIDOSIS Physical Exam Vital Signs: Temp Pulse Resp BP Pulse Ox 98.2 F 86 20 157/89 H 98 10/28/17 14:00 10/28/17 14:00 10/28/17 14:00 10/28/17 14:00 10/28/17 14:00 Intake & Output 10/27/17 10/28/17 10/29/17 06:59 06:59 06:59 Intake Total 3720 4650 Output Total 750 4850 Balance -750 -1130 4650 Weight 121.8 kg 122.5 kg General appearance: PRESENT: no acute distress Eye exam: PRESENT: PERRLA Respiratory exam: PRESENT: clear to auscultation stephen Cardiovascular exam: PRESENT: +S1, +S2 GI/Abdominal exam: PRESENT: soft Neurological exam: PRESENT: alert Results Laboratory Results: 10/27/17 05:45 10/28/17 19:10 10/28/17 19:10 Sodium 142.6 Potassium 4.7 Chloride 111 H Carbon Dioxide 24 Anion Gap 8 BUN 13 Creatinine 1.39 H Est GFR ( Amer) 47 L Est GFR (Non-Af Amer) 39 L Glucose 121 H Calcium 8.1 L Total Bilirubin 0.3 AST 27 ALT 24 Alkaline Phosphatase 64 Total Protein 6.3 Albumin 2.9 L 10/14/17 10/14/17 10/14/17 09:59 09:59 09:59 Creatine Kinase 271 H CK-MB (CK-2) 3.99 Troponin I 0.032 NT-Pro-B Natriuret Pep 215 10/14/17 10/14/17 10/14/17 17:00 17:00 20:42 Creatine Kinase 286 H 240 H CK-MB (CK-2) 3.65 Troponin I 0.021 NT-Pro-B Natriuret Pep 10/14/17 10/23/17 10/23/17 20:42 21:25 21:25 Creatine Kinase 67 CK-MB (CK-2) 3.46 0.77 Troponin I 0.019 < 0.012 NT-Pro-B Natriuret Pep Impressions: Chest X-Ray 10/18/17 00:00 IMPRESSION: Please see combined report for performance of procedure and radiologic supervision and interpretation. Guidance Fluoroscopy 10/18/17 00:00 IMPRESSION: IMAGE(S) OBTAINED DURING PROCEDURE. Assessment & Plan - Diagnosis (1) Acute kidney injury Is this a current diagnosis for this admission?: Yes (2) Metabolic acidosis Is this a current diagnosis for this admission?: Yes (3) Morbid obesity Is this a current diagnosis for this admission?: Yes (4) Type 2 diabetes mellitus Qualifiers: Diabetes mellitus complication status: with neurologic complications Diabetes mellitus complication detail: with polyneuropathy Diabetes mellitus custodial insulin use: with terminal system operator use Qualified Code(s): E11.42 - Type 2 diabetes mellitus with diabetic polyneuropathy; Z79.4 - prison (current) use of insulin; Z79.4 - terminal system operator (current) use of insulin; Z79.4 - prison ( current) use of insulin; Z79.4 - prison (current) use of insulin Is this a current diagnosis for this admission?: Yes (5) Acute gout of right ankle Qualifiers: Gout etiology: unspecified cause Qualified Code(s): M10.9 - Gout, unspecified Is this a current diagnosis for this admission?: Yes
--- NOTE | 2017-10-28 21:05 | PDOC DISCHARGE SUMMARY ---
General - Admit/Disc Date/PCP Admission Date/Primary Care Provider: 10/14/17 06:34 LISA MATA MD Discharge Date: 10/29/17 - Discharge Diagnosis (1) Acute kidney injury Is this a current diagnosis for this admission?: Yes (2) Metabolic acidosis Is this a current diagnosis for this admission?: Yes (3) Morbid obesity Is this a current diagnosis for this admission?: Yes (4) Type 2 diabetes mellitus Is this a current diagnosis for this admission?: Yes (5) Acute gout of right ankle Is this a current diagnosis for this admission?: Yes - Additional Information Resuscitation Status: Full Code Discharge Activity: Activity As Tolerated Home Medications: Albuterol Sulfate [Proventil Hfa] 2 puff IH Q4HP PRN 10/14/17 Aspirin [Aspirin 81 mg Chewable Tablet] 81 mg PO DAILY 10/14/17 Clotrimazole 1% Topical [Lotrimin 1% Topical Soln 10 ml] 1 applic TP BID Cyclobenzaprine HCl [Flexeril 10 mg Tablet] 10 mg PO TID 10/14/17 Ergocalciferol (Vitamin D2) [Vitamin D2] 50,000 unit PO KYLE@1000 10/14/17 Exenatide Microspheres [Bydureon Pen] 2 mg SQ KYLE@1000 10/14/17 Febuxostat [Uloric 80 mg Tablet] 80 mg PO DAILY 10/14/17 Gabapentin [Neurontin] 600 mg PO QID 10/14/17 Glipizide [Glipizide Xl] 5 mg PO DAILY 10/14/17 Insulin Aspart [Novolog Flexpen] 12 unit SQ TID 10/14/17 Insulin Glargine,Hum.rec.anlog [Lantus Solostar] 60 unit SQ BID 10/14/17 Linagliptin [Tradjenta] 5 mg PO DAILY 10/14/17 Loperamide HCl [Loperamide] 4 mg PO TID 10/14/17 Magnesium Oxide [Mag-Ox 400 mg Tablet] 400 mg PO DAILY 10/14/17 Metoprolol Succinate [Toprol Xl 50 mg Tab.sr] 50 mg PO DAILY 10/14/17 Nystatin [Mycostatin Topical Powder 15 gm] 1 applic TP BID 10/14/17 Oxycodone HCl [Oxy-Ir 5 mg Tablet] 10 mg PO Q6HP PRN 10/14/17 Oxymorphone HCl [Opana] 10 mg PO Q12 10/14/17 Pioglitazone HCl [Actos] 30 mg PO DAILY 10/14/17 Pravastatin Sodium [Pravachol] 40 mg PO DAILY 10/14/17 Ramipril [Altace 10 mg Capsule] 10 mg PO DAILY 10/14/17 Sodium Bicarbonate [Sodium Bicarbonate 650 mg Tablet] 1,300 mg PO TID 10/14/17 History of Present Illness History of Present Illness: RANDEE VELÁSQUEZ is a 61 year old female, She is well known to me she has high output ileostomy bag with a history of recurrent acute kidney injury she was just discharged from the hospital about 5 days ago, she came to the office for follow-up routine blood work was done and she was found to be in acute kidney failure with metabolic acidosis and hyperkalemia which is the usual pattern of presentation. She also stated that she has noticed reduced urinary output. This has been ongoing problem for this patient she was extensively evaluated both at [facility] beds at the [facility], and [facility] for the same problem.She was called from home to go to the emergency room for evaluation, in the emergency room she was evaluated she was found to acute kidney injury with acid-base disorder and electrolyte derangement Hospital Course Hospital Course: She was admitted for the management of acute metabolic acidosis, acute kidney injury, in the setting of high output ileostomy bag. She was treated with sodium bicarbonate infusion, she also had acute gouty arthropathy that was treated with colchicine. On this admission a Port-A-Cath was inserted for the purpose of outpatient administration of normal saline hopefully to prevent readmission for this patient. She has multiple readmission rates for dehydration associated with acute kidney injury, acid-base disorder and electrolyte disorder due to high output state of the ileostomy bag. Physical Exam Vital Signs: Temp Pulse Resp BP Pulse Ox 98.2 F 86 20 157/89 H 98 10/28/17 14:00 10/28/17 14:00 10/28/17 14:00 10/28/17 14:00 10/28/17 14:00 Intake & Output 10/27/17 10/28/17 10/29/17 06:59 06:59 06:59 Intake Total 3720 4650 Output Total 750 4850 Balance -750 -1130 4650 Weight 121.8 kg 122.5 kg General appearance: PRESENT: no acute distress, well-developed, well-nourished Head exam: PRESENT: atraumatic, normocephalic Eye exam: PRESENT: conjunctiva pink, EOMI, PERRLA Ear exam: PRESENT: normal external ear exam Mouth exam: PRESENT: moist, tongue midline Neck exam: PRESENT: full ROM Cardiovascular exam: PRESENT: RRR, +S1, +S2 Vascular exam: PRESENT: normal capillary refill GI/Abdominal exam: PRESENT: normal bowel sounds, soft Rectal exam: PRESENT: deferred Neurological exam: PRESENT: alert Psychiatric exam: PRESENT: appropriate affect, normal mood Skin exam: PRESENT: dry, intact, warm Results Laboratory Results: 10/27/17 05:45 10/28/17 19:10 10/28/17 19:10 Sodium 142.6 Potassium 4.7 Chloride 111 H Carbon Dioxide 24 Anion Gap 8 BUN 13 Creatinine 1.39 H Est GFR ( Amer) 47 L Est GFR (Non-Af Amer) 39 L Glucose 121 H Calcium 8.1 L Total Bilirubin 0.3 AST 27 ALT 24 Alkaline Phosphatase 64 Total Protein 6.3 Albumin 2.9 L 10/14/17 10/14/17 10/14/17 09:59 09:59 09:59 Creatine Kinase 271 H CK-MB (CK-2) 3.99 Troponin I 0.032 NT-Pro-B Natriuret Pep 215 10/14/17 10/14/17 10/14/17 17:00 17:00 20:42 Creatine Kinase 286 H 240 H CK-MB (CK-2) 3.65 Troponin I 0.021 NT-Pro-B Natriuret Pep 10/14/17 10/23/17 10/23/17 20:42 21:25 21:25 Creatine Kinase 67 CK-MB (CK-2) 3.46 0.77 Troponin I 0.019 < 0.012 NT-Pro-B Natriuret Pep Impressions: Chest X-Ray 10/18/17 00:00 IMPRESSION: Please see combined report for performance of procedure and radiologic supervision and interpretation. Guidance Fluoroscopy 10/18/17 00:00 IMPRESSION: IMAGE(S) OBTAINED DURING PROCEDURE. Qualifiers - * PATEINT BEING DISCHARGED WITH ANY OF THE FOLLOWING DIAGNOSIS?: No
--- NOTE | 2017-10-28 21:05 | PDOC PROGRESS REPORT ---
Subjective Progress Note for:: 10/28/17 Subjective:: There is no new complaints, patient to be discharged home in a.m. the most recent blood work, serum creatinine 1.3 Reason For Visit: ACUTE KIDNEY INJURY,METABOLIC ACIDOSIS Physical Exam Vital Signs: Temp Pulse Resp BP Pulse Ox 98.2 F 86 20 157/89 H 98 10/28/17 14:00 10/28/17 14:00 10/28/17 14:00 10/28/17 14:00 10/28/17 14:00 Intake & Output 10/27/17 10/28/17 10/29/17 06:59 06:59 06:59 Intake Total 3720 4650 Output Total 750 4850 Balance -750 -1130 4650 Weight 121.8 kg 122.5 kg General appearance: PRESENT: no acute distress Eye exam: PRESENT: PERRLA Respiratory exam: PRESENT: clear to auscultation stephen Cardiovascular exam: PRESENT: +S1, +S2 GI/Abdominal exam: PRESENT: soft Neurological exam: PRESENT: alert Results Laboratory Results: 10/27/17 05:45 10/28/17 19:10 10/28/17 19:10 Sodium 142.6 Potassium 4.7 Chloride 111 H Carbon Dioxide 24 Anion Gap 8 BUN 13 Creatinine 1.39 H Est GFR ( Amer) 47 L Est GFR (Non-Af Amer) 39 L Glucose 121 H Calcium 8.1 L Total Bilirubin 0.3 AST 27 ALT 24 Alkaline Phosphatase 64 Total Protein 6.3 Albumin 2.9 L 10/14/17 10/14/17 10/14/17 09:59 09:59 09:59 Creatine Kinase 271 H CK-MB (CK-2) 3.99 Troponin I 0.032 NT-Pro-B Natriuret Pep 215 10/14/17 10/14/17 10/14/17 17:00 17:00 20:42 Creatine Kinase 286 H 240 H CK-MB (CK-2) 3.65 Troponin I 0.021 NT-Pro-B Natriuret Pep 10/14/17 10/23/17 10/23/17 20:42 21:25 21:25 Creatine Kinase 67 CK-MB (CK-2) 3.46 0.77 Troponin I 0.019 < 0.012 NT-Pro-B Natriuret Pep Impressions: Chest X-Ray 10/18/17 00:00 IMPRESSION: Please see combined report for performance of procedure and radiologic supervision and interpretation. Guidance Fluoroscopy 10/18/17 00:00 IMPRESSION: IMAGE(S) OBTAINED DURING PROCEDURE. Assessment & Plan - Diagnosis (1) Acute kidney injury Is this a current diagnosis for this admission?: Yes (2) Metabolic acidosis Is this a current diagnosis for this admission?: Yes (3) Morbid obesity Is this a current diagnosis for this admission?: Yes (4) Type 2 diabetes mellitus Qualifiers: Diabetes mellitus complication status: with neurologic complications Diabetes mellitus complication detail: with polyneuropathy Diabetes mellitus [facility] insulin use: with [facility] use Qualified Code(s): E11.42 - Type 2 diabetes mellitus with diabetic polyneuropathy; Z79.4 - terminologist (current) use of insulin; Z79.4 - terminologist (current) use of insulin; Z79.4 - half-way ( current) use of insulin; Z79.4 - terminologist (current) use of insulin Is this a current diagnosis for this admission?: Yes (5) Acute gout of right ankle Qualifiers: Gout etiology: unspecified cause Qualified Code(s): M10.9 - Gout, unspecified Is this a current diagnosis for this admission?: Yes
[2017-10-28] MEDS: ATORVASTATIN CALCIUM 10 MG TABLET PO SCH (22:57)
[2017-10-29] MEDS: HYDROMORPHONE HCL INJ/PF 2 MG/ML AMPULE IV PRN ×4 (00:48→14:19)
[2017-10-29] MEDS: GABAPENTIN 300 MG CAPSULE PO SCH ×2 (05:04→12:15)
[2017-10-29] MEDS: CYCLOBENZAPRINE HCL 10 MG TABLET PO SCH ×2 (05:04→14:34)
[2017-10-29] MEDS: HEPARIN SOD (PORCINE) 5,000 UNIT/ML 1 ML SYRINGE SUBCUT SCH ×2 (05:05→14:20)
[2017-10-29] MEDS: COLCHICINE 0.6 MG TABLET PO SCH (08:40)
[2017-10-29] MEDS: INSULIN LISPRO 100 UNIT/ML 3 ML VIAL SUBCUT SCH ×2 (08:55→12:18)
[2017-10-29] MEDS: METOPROLOL SUCCINATE 50 MG TAB.SR.24H PO SCH (09:19)
[2017-10-29] MEDS: MAGNESIUM OXIDE 400 MG TABLET PO SCH (09:19)
[2017-10-29] MEDS: LOPERAMIDE HCL 2 MG CAPSULE PO SCH ×2 (09:19→14:20)
[2017-10-29] MEDS: SITAGLIPTIN PHOSPHATE 25 MG TABLET PO SCH (09:19)
[2017-10-29] MEDS: ASPIRIN 81 MG TABLET, CHEWABLE PO SCH (09:19)
[2017-10-29] MEDS: SODIUM BICARBONATE 650 MG TABLET PO SCH ×2 (09:19→14:38)
[2017-10-29] MEDS: FEBUXOSTAT 80 MG TABLET PO SCH (09:19)
[2017-10-29] MEDS: PIOGLITAZONE HCL 30 MG TABLET PO SCH (09:19)
[2017-10-29] MEDS: GLIPIZIDE XL 5 MG TAB.ER.24 PO SCH (09:19)
[2017-10-29] MEDS: CLOTRIMAZOLE 1% TOPICAL SOLN 10 ML TP SCH (09:20)
[2017-10-29] MEDS: INSULIN GLARGINE,HUM.REC.ANLOG 1,000 UNIT/10 ML UNIT SUBCUT SCH (09:20)
[2017-10-29 15:11] VITALS: BP 145/75
[2017-10-29 15:49] LABS: ALANINE AMINOTRANSFERASE 27 U/L (9-52); ALBUMIN 3.2 g/dL (3.5-5.0); ALKALINE PHOSPHATASE 74 U/L (38-126); ANION GAP 8 (5-19); ASPARTATE AMINO TRANSFERASE 31 U/L (14-36); BILIRUBIN,DIRECT 0.3 mg/dL (0.0-0.4); BILIRUBIN,TOTAL 0.3 mg/dL (0.2-1.3); BLOOD UREA NITROGEN 12 mg/dL (7-20); CALCIUM 8.4 mg/dL (8.4-10.2); CARBON DIOXIDE 24 mmol/L (22-30); CHLORIDE 110 mmol/L (98-107); GLUCOSE 138 mg/dL (75-110); POTASSIUM 4.9 mmol/L (3.6-5.0); SODIUM 141.7 mmol/L (137-145); TOTAL PROTEIN 6.8 g/dL (6.3-8.2)
[2017-10-31] MEDS ORDERED: ERGOCALCIFEROL (VITAMIN D2) 50000 UNIT (1.25 MG) CAPSULE PO SCH (10:00)
== END 2017-10-29 15:35 | disposition home or self-care (01) | DRG 683 ==
LOC: ER 22:09 → EH 10-14 06:34 → 3N 10-14 18:24 → 2N 10-23 23:48 → UNDODISIN 10-25 20:30
PROVIDERS: ADMIT Internal Medicine; ATTEND Internal Medicine
PROC: B548ZZA Ultrasonography of Superior Vena Cava, Guidance (ICD-10-PCS; 2017-10-18)
PROC: 02HV33Z Insertion of Infusion Device into Superior Vena Cava, Percutaneous Approach (ICD-10-PCS; principal; 2017-10-18 13:00)
DX: N17.9 Acute kidney failure, unspecified (principal); E87.2 Acidosis; C64.9 Malignant neoplasm of unspecified kidney, except renal pelvis; Z68.43 Body mass index [BMI] 50.0-59.9, adult; E87.5 Hyperkalemia; I48.91 Unspecified atrial fibrillation; I25.10 Atherosclerotic heart disease of native coronary artery without angina pectoris; I10 Essential (primary) hypertension; M10.9 Gout, unspecified; E11.42 Type 2 diabetes mellitus with diabetic polyneuropathy; E78.5 Hyperlipidemia, unspecified; K21.9 Gastro-esophageal reflux disease without esophagitis; E66.01 Morbid (severe) obesity due to excess calories; I25.2 Old myocardial infarction; Z86.718 Personal history of other venous thrombosis and embolism; Z79.84 Long term (current) use of oral hypoglycemic drugs; Z79.82 Long term (current) use of aspirin; Z79.4 Long term (current) use of insulin; Z79.51 Long term (current) use of inhaled steroids; Z79.899 Other long term (current) drug therapy; Z93.2 Ileostomy status
CPT/HCPCS: 36415; 532; 71045; 77001; 80048; 80053; 80061; 80076; 81001; 82140; 82150; 82550; 82553; 82565; 82962; 83036; 83690; 83735; 83880; 84100; 84439; 84443; 84484; 85025; 85027; 85610; 85730; 93005; 93010; 96361; 96365; 96375; 99285; C1788; J0610; J0690; J1170; J1642; J1644; J1815; J2250; J2704; J3010; J3475; J3490; J7030; J7060

== ENCOUNTER 2017-11-04 07:48 | Outpatient (CLI) | payer MEDICARE, MEDICAID ==
[2017-11-04] MEDS ORDERED: NORMAL SALINE 1000 ML 1,000 ML IV PRN (08:17)
[2017-11-04 08:37] VITALS: BP 148/76
== END 2017-11-04 16:53 | disposition home or self-care (01) ==
LOC: II 07:48 → 5TH 07:57 → II 16:53
PROVIDERS: ATTEND Internal Medicine
PROC: 3E0437Z Introduction of Electrolytic and Water Balance Substance into Central Vein, Percutaneous Approach (ICD-10-PCS; principal; 2017-11-04)
DX: E86.0 Dehydration (principal); N17.9 Acute kidney failure, unspecified; Z93.2 Ileostomy status
CPT/HCPCS: 96360; 96361

== ENCOUNTER 2017-11-10 07:51 | Outpatient (CLI) | payer MEDICARE, MEDICAID ==
[~2017-11-10 07:51] MED LIST: NORMAL SALINE 1000 ML 4,000 ML IV PRN
[2017-11-10 08:36] VITALS: BP 146/82
== END 2017-11-10 16:40 | disposition home or self-care (01) ==
LOC: II 07:51 → 5TH 07:53 → II 16:40
PROVIDERS: ATTEND Internal Medicine
PROC: 3E0437Z Introduction of Electrolytic and Water Balance Substance into Central Vein, Percutaneous Approach (ICD-10-PCS; principal; 2017-11-10)
DX: E86.0 Dehydration (principal); N17.9 Acute kidney failure, unspecified; Z93.2 Ileostomy status
CPT/HCPCS: 96360; 96361; 96374

== ENCOUNTER → 2017-11-16 | Outpatient (CLI) | payer MEDICARE, MEDICAID ==
--- NOTE | 2017-11-16 15:51 | WOMENS IMAGING REPORT ---
EXAM DESCRIPTION: 3D SCREENING MAMMO BILAT COMPLETED DATE/TIME: 11/16/2017 10:50 am REASON FOR STUDY: ROUTINE SCREENING;Z12.31 Z12.31 ENCNTR SCREEN MAMMOGRAM FOR MALIGNANT NEOPLASM OF ARISTIDES COMPARISON: 03/11/2016 and 10/17/2013. TECHNIQUE: Standard craniocaudal and mediolateral oblique views of each breast recorded using digita l acquisition and breast tomosynthesis. LIMITATIONS: None. FINDINGS: Findings present which are benign by mammographic criteria. No suspicious masses, calcifi cations or architectural distortion. Pertinent benign findings: Stable benign calcifications. Read with the assistance of CAD. .[facility] - R2 Cenova Version 1.3 .[facility] Imaging - R2 Cenova Version 1.3 .[facility] - R2 Cenova Version 2.4 .[facility] - R2 Cenova Version 2.4 .[facility] - R2 Instruction[employer] Services Technician Version 9.2 Benign mammographic findings may include one or more of the following: Smooth masses, popcorn/rim/co arse calcifications, asymmetries, post-procedure changes, and lesions with long-standing stability. IMPRESSION: BENIGN MAMMOGRAPHIC FINDINGS. BIRADS 2 BREAST DENSITY: a. The breasts are almost entirely fatty. BIRAD: 2 BENIGN FINDING(S) RECOMMENDATION: RECOMMENDATION: ROUTINE SCREENING COMMENT: The patient has been notified of the results by letter per SA requirements. Additional no tification policies are in place for contacting patient with suspicious or incomplete findings. Quality ID #225: The [employer] recommends an annual screening mammogram for women aged 40 years or over. This facility utilizes a reminder system to ensure that all patients receive reminder letters, and/or direct phone calls for appointments. This includes reminders for routine scr eening mammograms, diagnostic mammograms, or other Breast Imaging Interventions when appropriate. Th is patient will be placed in the appropriate reminder system. The [employer] (ACR) has developed recommendations for screening MRI of the breast s in certain patient populations, to be used in conjunction with mammography. Breast MRI surveillanc e may be appropriate for women with more than 20% lifetime risk of developing breast cancer as deter mined by genetic testing, significant family history of the disease, or history of mantle radiation f or Hodgkins Disease. ACR Practice Guidelines 2008. DBT Technology DBT is a type of tomographic mammography. With conventional mammography, overlapping breast tissue ma y make lesions difficult to detect, even with good compression. DBT uses an x-ray tube that rotates a round the breast, taking images at different angles. These images are then combined to create thin sl ices of the breast that the radiologist can view as a 3D reconstruction. The [employer] unit can perform full-field digital mammograms (2D imaging); or DBT (3D imaging); or both, in a combination mode that quickly performs both the mammogram and the tomosynthesis scan while the breast is still compressed. PQRS 6045F: Fluoroscopic imaging is not utilized for breast tomosynthesis. TECHNICAL DOCUMENTATION: FINDING NUMBER: (1) ASSESSMENT: (1) JOB ID: [id number] [employer]- All Rights Reserved Reading location - IP/workstation name: [email or web address]
== END ==
LOC: WI 09:42
PROVIDERS: ATTEND Internal Medicine
DX: Z12.31 Encounter for screening mammogram for malignant neoplasm of breast (principal)
CPT/HCPCS: 77063; 77067

== ENCOUNTER 2017-11-17 07:59 | Outpatient (CLI) | payer MEDICARE, MEDICAID ==
[2017-11-17] MEDS ORDERED: NORMAL SALINE 1000 ML 4,000 ML IV PRN (08:32)
[2017-11-17 08:52] VITALS: BP 132/78
[2017-11-17] MEDS ORDERED: IPRATROPIUM/ALBUTEROL 0.5-2.5 MG/3 ML AMPUL NEB ONE ×2 (14:57→15:15)
== END 2017-11-17 16:07 | disposition home or self-care (01) ==
LOC: II 07:59 → 5TH 08:04 → II 16:07
PROVIDERS: ATTEND Internal Medicine
PROC: 3E0437Z Introduction of Electrolytic and Water Balance Substance into Central Vein, Percutaneous Approach (ICD-10-PCS; principal; 2017-11-17)
DX: E86.0 Dehydration (principal); N17.9 Acute kidney failure, unspecified; Z93.2 Ileostomy status
CPT/HCPCS: 96415; 96361; A9270; 96360; 96374; J7620

== ENCOUNTER 2017-11-24 07:53 | Outpatient (CLI) | payer MEDICARE, MEDICAID ==
[2017-11-24] MEDS ORDERED: NORMAL SALINE 1000 ML 1,000 ML IV PRN (08:41)
[2017-11-24 10:03] VITALS: BP 157/79
== END 2017-11-24 14:00 | disposition home or self-care (01) ==
LOC: II 07:53 → 5TH 07:58 → II 14:00
PROVIDERS: ATTEND Internal Medicine
PROC: 3E0437Z Introduction of Electrolytic and Water Balance Substance into Central Vein, Percutaneous Approach (ICD-10-PCS; principal; 2017-11-24)
DX: E86.0 Dehydration (principal); N17.9 Acute kidney failure, unspecified; Z93.2 Ileostomy status
CPT/HCPCS: 96360; 96361; 96374

== ENCOUNTER 2017-12-01 08:01 | Outpatient (CLI) | payer MEDICARE, MEDICAID ==
[~2017-12-01 08:01] MED LIST changes: +NORMAL SALINE 1000 ML 2,000 ML IV PRN; -NORMAL SALINE 1000 ML 4,000 ML IV PRN
[2017-12-01 08:37] VITALS: BP 166/82
== END 2017-12-01 13:09 | disposition home or self-care (01) ==
LOC: II 08:01 → 5TH 08:04 → II 13:09
PROVIDERS: ATTEND Internal Medicine
PROC: 3E0437Z Introduction of Electrolytic and Water Balance Substance into Central Vein, Percutaneous Approach (ICD-10-PCS; principal; 2017-12-01)
DX: E86.0 Dehydration (principal); N17.9 Acute kidney failure, unspecified; Z93.2 Ileostomy status
CPT/HCPCS: 96360; 96361; 96374

== ENCOUNTER 2017-12-08 07:49 | Outpatient (CLI) | payer MEDICARE, MEDICAID ==
[~2017-12-08 07:49] MED LIST changes: +NORMAL SALINE 1000 ML 1,000 ML IV PRN; -NORMAL SALINE 1000 ML 2,000 ML IV PRN
[2017-12-08 08:54] VITALS: BP 137/69
== END 2017-12-08 13:30 | disposition home or self-care (01) ==
LOC: II 07:49 → 5TH 07:52 → II 13:08
PROVIDERS: ATTEND Internal Medicine
PROC: 3E0337Z Introduction of Electrolytic and Water Balance Substance into Peripheral Vein, Percutaneous Approach (ICD-10-PCS; principal; 2017-12-08)
DX: E86.0 Dehydration (principal); N17.9 Acute kidney failure, unspecified; Z93.2 Ileostomy status
CPT/HCPCS: 96360; 96361

== ENCOUNTER 2017-12-15 08:25 | Outpatient (CLI) | payer MEDICARE, MEDICAID ==
[~2017-12-15 08:25] MED LIST changes: -NORMAL SALINE 1000 ML 1,000 ML IV PRN; +NORMAL SALINE 1000 ML 2,000 ML IV PRN
[2017-12-15 08:42] VITALS: BP 147/82
== END 2017-12-15 13:15 | disposition home or self-care (01) ==
LOC: II 08:25 → 5TH 08:28 → II 13:15
PROVIDERS: ATTEND Internal Medicine
PROC: 3E0437Z Introduction of Electrolytic and Water Balance Substance into Central Vein, Percutaneous Approach (ICD-10-PCS; principal; 2017-12-15)
DX: E86.0 Dehydration (principal); N17.9 Acute kidney failure, unspecified; Z93.2 Ileostomy status
CPT/HCPCS: 96360; 96361

== ENCOUNTER 2017-12-29 08:04 | Outpatient (CLI) | payer MEDICARE, MEDICAID ==
[2017-12-29 08:17] VITALS: BP 155/82
== END 2017-12-29 12:52 | disposition home or self-care (01) ==
LOC: II 08:04 → 5TH 08:08 → II 12:52
PROVIDERS: ATTEND Internal Medicine
PROC: 3E0337Z Introduction of Electrolytic and Water Balance Substance into Peripheral Vein, Percutaneous Approach (ICD-10-PCS; principal; 2017-12-29)
DX: E86.0 Dehydration (principal); N17.9 Acute kidney failure, unspecified; Z93.2 Ileostomy status
CPT/HCPCS: 96360; 96361

== ENCOUNTER 2018-01-05 08:09 | Outpatient (CLI) | payer MEDICARE, MEDICAID ==
[2018-01-05 09:22] VITALS: BP 117/60
== END 2018-01-05 13:29 | disposition home or self-care (01) ==
LOC: II 08:09 → 5TH 08:36 → II 13:29
PROVIDERS: ATTEND Internal Medicine
PROC: 3E0437Z Introduction of Electrolytic and Water Balance Substance into Central Vein, Percutaneous Approach (ICD-10-PCS; principal; 2018-01-05)
DX: E86.0 Dehydration (principal); N17.9 Acute kidney failure, unspecified; Z93.2 Ileostomy status
CPT/HCPCS: 96360; 96361; 96374

== ENCOUNTER 2018-01-12 08:23 | Outpatient (CLI) | payer MEDICARE, MEDICAID ==
[2018-01-12] MEDS ORDERED: NORMAL SALINE 1000 ML 2,000 ML IV PRN (08:41)
[2018-01-12 09:00] VITALS: BP 121/82
== END 2018-01-12 12:33 | disposition home or self-care (01) ==
LOC: II 08:23 → 5TH 08:32 → II 12:33
PROVIDERS: ATTEND Internal Medicine
PROC: 3E0437Z Introduction of Electrolytic and Water Balance Substance into Central Vein, Percutaneous Approach (ICD-10-PCS; principal; 2018-01-12)
DX: E86.0 Dehydration (principal); N17.9 Acute kidney failure, unspecified; Z93.2 Ileostomy status
CPT/HCPCS: 96360; 96361; 96374

== ENCOUNTER 2018-01-19 08:28 | Outpatient (CLI) | payer MEDICARE, MEDICAID ==
[2018-01-19] MEDS ORDERED: NORMAL SALINE 1000 ML 2,000 ML IV PRN (08:59)
[2018-01-19 09:10] VITALS: BP 104/66
== END 2018-01-19 13:10 | disposition home or self-care (01) ==
LOC: II 08:28 → 5TH 08:32 → II 13:10
PROVIDERS: ATTEND Internal Medicine
PROC: 3E0437Z Introduction of Electrolytic and Water Balance Substance into Central Vein, Percutaneous Approach (ICD-10-PCS; principal; 2018-01-19)
DX: Z76.89 Persons encountering health services in other specified circumstances (principal)
CPT/HCPCS: 96360; 96361; 96374

== ENCOUNTER → 2018-01-19 | Outpatient (CLI) | payer MEDICARE, MEDICAID ==
--- NOTE | 2018-01-19 16:21 | RADIOLOGY REPORT (SQ) ---
EXAM DESCRIPTION: ANKLE RIGHT AP/LATERAL COMPLETED DATE/TIME: 01/19/2018 1:48 pm REASON FOR STUDY: PAIN IN RIGHT ANKLE AND JOINTS OF RIGHT FOOT (M25.571) M25.571 PAIN IN RIGHT ANKL E AND JOINTS OF RIGHT FOOT COMPARISON: 02/19/2014. NUMBER OF VIEWS: Three views. TECHNIQUE: AP, lateral, and oblique radiographic images acquired of the right ankle. LIMITATIONS: None. FINDINGS: MINERALIZATION: Normal. BONES: No acute fracture or dislocation. Old healed fracture of the distal fibula. Stable hardware in the medial malleolus. Chronic changes in the calcaneus with large heel spur. No worrisome bone l esions. JOINTS: No effusions. SOFT TISSUES: No soft tissue swelling. No foreign body. OTHER: No other significant finding. IMPRESSION: STABLE APPEARANCE WITH OLD HEALED FRACTURE OF THE DISTAL FIBULA, STABLE HARDWARE IN THE MEDIAL MALLEOLUS, AND CHRONIC CHANGES IN THE CALCANEUS. NO ACUTE FINDINGS. TECHNICAL DOCUMENTATION: JOB ID: [id number] [employer]- All Rights Reserved Reading location - IP/workstation name: [email or web address]
== END ==
LOC: RAD 13:30
PROVIDERS: ATTEND Internal Medicine
DX: M25.571 Pain in right ankle and joints of right foot (principal)

== ENCOUNTER 2018-01-26 08:12 | Outpatient (CLI) | payer MEDICARE, MEDICAID ==
[~2018-01-26 08:12] MED LIST changes: +NORMAL SALINE 1000 ML 1,000 ML IV PRN; -NORMAL SALINE 1000 ML 2,000 ML IV PRN
[2018-01-26 08:52] VITALS: BP 106/52
== END 2018-01-26 12:25 | disposition home or self-care (01) ==
LOC: II 08:12 → 5TH 08:14 → II 12:25
PROVIDERS: ATTEND Internal Medicine
PROC: 3E0437Z Introduction of Electrolytic and Water Balance Substance into Central Vein, Percutaneous Approach (ICD-10-PCS; principal; 2018-01-26)
DX: E86.0 Dehydration (principal); N17.9 Acute kidney failure, unspecified; Z93.2 Ileostomy status
CPT/HCPCS: 96360; 96361; 96374

== ENCOUNTER 2018-02-09 08:30 | Outpatient (CLI) | payer MEDICARE ==
[2018-02-09] MEDS ORDERED: NORMAL SALINE 1000 ML 2,000 ML IV PRN (09:06)
[2018-02-09 09:15] VITALS: BP 125/74
== END 2018-02-09 13:19 | disposition home or self-care (01) ==
LOC: II 08:30 → 5TH 08:32 → II 13:19
PROVIDERS: ATTEND Internal Medicine
PROC: 3E0437Z Introduction of Electrolytic and Water Balance Substance into Central Vein, Percutaneous Approach (ICD-10-PCS; principal; 2018-02-09)
DX: E86.0 Dehydration (principal); N17.9 Acute kidney failure, unspecified; Z93.2 Ileostomy status
CPT/HCPCS: 96360; 96361; 96374

== ENCOUNTER 2018-02-16 08:18 | Outpatient (CLI) | payer MEDICARE, MEDICAID ==
[2018-02-16 09:18] VITALS: BP 141/69
== END 2018-02-16 13:09 | disposition home or self-care (01) ==
LOC: II 08:18 → 5TH 08:20 → II 13:09
PROVIDERS: ATTEND Internal Medicine
PROC: 3E0437Z Introduction of Electrolytic and Water Balance Substance into Central Vein, Percutaneous Approach (ICD-10-PCS; principal; 2018-02-16)
DX: E86.0 Dehydration (principal); Z93.2 Ileostomy status; N17.9 Acute kidney failure, unspecified
CPT/HCPCS: 96360; 96361

== ENCOUNTER 2018-02-23 08:09 | Outpatient (CLI) | payer MEDICARE, MEDICAID ==
[2018-02-23 08:46] VITALS: BP 126/79
== END 2018-02-23 12:39 | disposition home or self-care (01) ==
LOC: II 08:09 → 5TH 08:15 → II 12:39
PROVIDERS: ATTEND Internal Medicine
PROC: 3E0337Z Introduction of Electrolytic and Water Balance Substance into Peripheral Vein, Percutaneous Approach (ICD-10-PCS; principal; 2018-02-23)
DX: E86.0 Dehydration (principal); N17.9 Acute kidney failure, unspecified; Z93.2 Ileostomy status
CPT/HCPCS: 96360; 96361; 96374

== ENCOUNTER 2018-03-02 07:56 | Outpatient (CLI) | payer MEDICARE, MEDICAID ==
[2018-03-02 08:30] VITALS: BP 133/73
[2018-03-02] MEDS: NORMAL SALINE 1000 ML 1,000 ML IV PRN ×2 (08:31→11:09)
== END 2018-03-02 13:15 | disposition home or self-care (01) ==
LOC: II 07:56 → 5TH 07:59 → II 13:15
PROVIDERS: ATTEND Internal Medicine
PROC: 3E0437Z Introduction of Electrolytic and Water Balance Substance into Central Vein, Percutaneous Approach (ICD-10-PCS; principal; 2018-03-02)
DX: E86.0 Dehydration (principal); N17.9 Acute kidney failure, unspecified; Z93.2 Ileostomy status
CPT/HCPCS: 96360; 96361

== ENCOUNTER 2018-03-16 08:03 | Outpatient (CLI) | payer MEDICARE, MEDICAID ==
[~2018-03-16 08:03] MED LIST changes: -NORMAL SALINE 1000 ML 1,000 ML IV PRN; +NORMAL SALINE 1000 ML 2,000 ML IV PRN
[2018-03-16 08:33] VITALS: BP 118/63
== END 2018-03-16 12:19 | disposition home or self-care (01) ==
LOC: II 08:03 → 5TH 08:05 → II 12:19
PROVIDERS: ATTEND Internal Medicine
PROC: 3E0437Z Introduction of Electrolytic and Water Balance Substance into Central Vein, Percutaneous Approach (ICD-10-PCS; principal; 2018-03-16)
DX: E86.0 Dehydration (principal)
CPT/HCPCS: 96360; 96361

== ENCOUNTER 2018-03-23 08:15 | Outpatient (CLI) | payer MEDICARE, MEDICAID ==
[2018-03-23] MEDS ORDERED: NORMAL SALINE 1000 ML 2,000 ML IV PRN (08:28)
[2018-03-23 09:31] VITALS: BP 133/72
== END 2018-03-23 13:27 | disposition home or self-care (01) ==
LOC: II 08:15 → 5TH 08:37 → II 13:27
PROVIDERS: ATTEND Internal Medicine
PROC: 3E0437Z Introduction of Electrolytic and Water Balance Substance into Central Vein, Percutaneous Approach (ICD-10-PCS; principal; 2018-03-23)
DX: E86.0 Dehydration (principal)
CPT/HCPCS: 96360; 96361; 96374

== ENCOUNTER 2018-03-30 08:03 | Outpatient (CLI) | payer MEDICARE, MEDICAID ==
[~2018-03-30 08:03] MED LIST changes: +NORMAL SALINE 1000 ML 1,000 ML IV PRN; -NORMAL SALINE 1000 ML 2,000 ML IV PRN
[2018-03-30 10:10] VITALS: BP 138/77
== END 2018-03-30 13:30 | disposition home or self-care (01) ==
LOC: II 08:03 → 5TH 08:04 → II 13:30
PROVIDERS: ATTEND Internal Medicine
PROC: 3E0437Z Introduction of Electrolytic and Water Balance Substance into Central Vein, Percutaneous Approach (ICD-10-PCS; principal; 2018-03-30)
DX: E86.0 Dehydration (principal)
CPT/HCPCS: 96360; 96361

== ENCOUNTER 2018-04-06 08:02 | Outpatient (CLI) | payer MEDICARE, MEDICAID ==
[2018-04-06 09:43] VITALS: BP 154/99
== END 2018-04-06 13:08 | disposition home or self-care (01) ==
LOC: II 08:02 → 5TH 08:05 → II 13:08
PROVIDERS: ATTEND Internal Medicine
PROC: 3E0437Z Introduction of Electrolytic and Water Balance Substance into Central Vein, Percutaneous Approach (ICD-10-PCS; principal; 2018-04-06)
DX: E86.0 Dehydration (principal)
CPT/HCPCS: 96360; 96361

== ENCOUNTER 2018-04-20 08:11 | Outpatient (CLI) | payer MEDICARE, MEDICAID ==
[~2018-04-20 08:11] MED LIST changes: -NORMAL SALINE 1000 ML 1,000 ML IV PRN; +NORMAL SALINE 1000 ML 2,000 ML IV PRN
[2018-04-20 08:58] VITALS: BP 137/85
== END 2018-04-20 13:33 | disposition home or self-care (01) ==
LOC: II 08:11 → 5TH 08:13 → II 13:33
PROVIDERS: ATTEND Internal Medicine
PROC: 3E0437Z Introduction of Electrolytic and Water Balance Substance into Central Vein, Percutaneous Approach (ICD-10-PCS; principal; 2018-04-20)
DX: E86.0 Dehydration (principal)
CPT/HCPCS: 96360; 96361; 96365; 96366; 96374

== ENCOUNTER 2018-04-27 08:16 | Outpatient (CLI) | payer MEDICARE, MEDICAID ==
[2018-04-27] MEDS ORDERED: NORMAL SALINE 1000 ML 1,000 ML IV SCH (09:00)
[2018-04-27 09:14] VITALS: BP 140/83
[2018-04-27] MEDS ORDERED: NORMAL SALINE 1000 ML 2,000 ML IV PRN (09:48)
== END 2018-04-27 13:28 | disposition home or self-care (01) ==
LOC: 5TH 08:16 → II 08:16
PROVIDERS: ATTEND Internal Medicine
PROC: 3E0437Z Introduction of Electrolytic and Water Balance Substance into Central Vein, Percutaneous Approach (ICD-10-PCS; principal; 2018-04-27)
DX: E86.0 Dehydration (principal)
CPT/HCPCS: 96360; 96361

== ENCOUNTER 2018-05-04 08:24 | Outpatient (CLI) | payer MEDICARE, MEDICAID ==
[2018-05-04 09:14] VITALS: BP 146/84
== END 2018-05-04 13:14 | disposition home or self-care (01) ==
LOC: II 08:24 → 5TH 08:25 → II 13:14
PROVIDERS: ATTEND Internal Medicine
PROC: 3E0437Z Introduction of Electrolytic and Water Balance Substance into Central Vein, Percutaneous Approach (ICD-10-PCS; principal; 2018-05-04)
DX: E86.0 Dehydration (principal)
CPT/HCPCS: 96360; 96361

== ENCOUNTER 2018-06-01 08:08 | Outpatient (CLI) | payer MEDICARE, MEDICAID ==
[2018-06-01] MEDS ORDERED: NORMAL SALINE 1000 ML 1,000 ML IV PRN (08:19)
[2018-06-01 09:10] VITALS: BP 143/73
== END 2018-06-01 13:32 | disposition home or self-care (01) ==
LOC: II 08:08 → 5TH 08:11 → II 13:32
PROVIDERS: ATTEND Internal Medicine
PROC: 3E0437Z Introduction of Electrolytic and Water Balance Substance into Central Vein, Percutaneous Approach (ICD-10-PCS; principal; 2018-06-01)
DX: E86.0 Dehydration (principal); N17.9 Acute kidney failure, unspecified; Z93.2 Ileostomy status
CPT/HCPCS: 96360; 96361

== ENCOUNTER 2018-06-08 08:12 | Outpatient (CLI) | payer MEDICARE, MEDICAID ==
[~2018-06-08 08:12] MED LIST changes: +NORMAL SALINE 1000 ML 1,000 ML IV PRN; -NORMAL SALINE 1000 ML 2,000 ML IV PRN
[2018-06-08 08:30] VITALS: BP 155/87
== END 2018-06-08 13:05 | disposition home or self-care (01) ==
LOC: II 08:12 → 5TH 08:14 → II 13:05
PROVIDERS: ATTEND Internal Medicine
PROC: 3E0437Z Introduction of Electrolytic and Water Balance Substance into Central Vein, Percutaneous Approach (ICD-10-PCS; principal; 2018-06-08)
DX: E86.0 Dehydration (principal)
CPT/HCPCS: 96360; 96361; 96374

== ENCOUNTER 2018-06-15 08:04 | Outpatient (CLI) | payer MEDICARE, MEDICAID ==
[~2018-06-15 08:04] MED LIST changes: -NORMAL SALINE 1000 ML 1,000 ML IV PRN; +NORMAL SALINE 1000 ML 2,000 ML IV PRN
[2018-06-15 08:57] VITALS: BP 148/74
== END 2018-06-15 12:46 | disposition home or self-care (01) ==
LOC: II 08:04 → 5TH 08:11 → II 12:46
PROVIDERS: ATTEND Internal Medicine
PROC: 3E0437Z Introduction of Electrolytic and Water Balance Substance into Central Vein, Percutaneous Approach (ICD-10-PCS; principal; 2018-06-15)
DX: E86.0 Dehydration (principal)
CPT/HCPCS: 96360; 96361

== ENCOUNTER 2018-06-22 08:23 | Outpatient (CLI) | payer MEDICARE, MEDICAID ==
[2018-06-22 09:37] VITALS: BP 143/86
== END 2018-06-22 13:21 | disposition home or self-care (01) ==
LOC: II 08:23 → 5TH 08:26 → II 13:21
PROVIDERS: ATTEND Internal Medicine
PROC: 3E0437Z Introduction of Electrolytic and Water Balance Substance into Central Vein, Percutaneous Approach (ICD-10-PCS; principal; 2018-06-22)
DX: E86.0 Dehydration (principal)
CPT/HCPCS: 96360; 96361; 96365; 96366; 96374

== ENCOUNTER 2018-06-29 08:17 | Outpatient (CLI) | payer MEDICARE, MEDICAID ==
[~2018-06-29 08:17] MED LIST changes: +NORMAL SALINE 1000 ML 1,000 ML IV PRN; -NORMAL SALINE 1000 ML 2,000 ML IV PRN
[2018-06-29] MEDS: NORMAL SALINE 1000 ML 1,000 ML IV PRN ×2 (09:12→10:33)
[2018-06-29 09:20] VITALS: BP 158/62
== END 2018-06-29 12:27 | disposition home or self-care (01) ==
LOC: II 08:17 → 5TH 09:01 → II 12:27
PROVIDERS: ATTEND Internal Medicine
PROC: 3E0437Z Introduction of Electrolytic and Water Balance Substance into Central Vein, Percutaneous Approach (ICD-10-PCS; principal; 2018-06-29)
DX: E86.0 Dehydration (principal)
CPT/HCPCS: 96360; 96365; 96366; 96374

== ENCOUNTER 2018-07-06 08:10 | Outpatient (CLI) | payer MEDICARE, MEDICAID ==
[~2018-07-06 08:10] MED LIST changes: -NORMAL SALINE 1000 ML 1,000 ML IV PRN; +NORMAL SALINE 1000 ML 2,000 ML IV PRN
[2018-07-06 08:41] VITALS: BP 145/77
== END 2018-07-06 13:15 | disposition home or self-care (01) ==
LOC: II 08:10 → 5TH 08:11 → II 13:15
PROVIDERS: ATTEND Internal Medicine
PROC: 3E0437Z Introduction of Electrolytic and Water Balance Substance into Central Vein, Percutaneous Approach (ICD-10-PCS; principal; 2018-07-06)
DX: E86.0 Dehydration (principal)
CPT/HCPCS: 96360; 96361

== ENCOUNTER 2018-07-13 08:18 | Outpatient (CLI) | payer MEDICARE, MEDICAID ==
[2018-07-13 08:54] VITALS: BP 162/83
== END 2018-07-13 13:18 | disposition home or self-care (01) ==
LOC: II 08:18 → 5TH 08:19 → II 13:18
PROVIDERS: ATTEND Internal Medicine
DX: E86.0 Dehydration (principal)
CPT/HCPCS: 96365; 96366; 96374

== ENCOUNTER 2018-07-20 08:15 | Outpatient (CLI) | payer MEDICARE, MEDICAID ==
[2018-07-20 08:46] VITALS: BP 163/89
== END 2018-07-20 12:43 | disposition home or self-care (01) ==
LOC: II 08:15 → 5TH 08:19 → II 12:43
PROVIDERS: ATTEND Internal Medicine
DX: E86.0 Dehydration (principal)
CPT/HCPCS: 96365; 96366; 96374

== ENCOUNTER 2018-08-03 08:11 | Outpatient (CLI) | payer MEDICARE, MEDICAID ==
[2018-08-03] MEDS ORDERED: NORMAL SALINE 1000 ML 2,000 ML IV PRN (08:33)
[2018-08-03 09:33] VITALS: BP 161/96
== END 2018-08-03 13:36 | disposition home or self-care (01) ==
LOC: II 08:11 → 5TH 08:11 → II 13:36
PROVIDERS: ATTEND Internal Medicine
PROC: 3E0437Z Introduction of Electrolytic and Water Balance Substance into Central Vein, Percutaneous Approach (ICD-10-PCS; principal; 2018-08-03)
DX: E86.0 Dehydration (principal)
CPT/HCPCS: 96360; 96361

== ENCOUNTER 2018-08-10 08:09 | Outpatient (CLI) | payer MEDICARE, MEDICAID ==
[2018-08-10 09:21] VITALS: BP 152/96
== END 2018-08-10 13:26 | disposition home or self-care (01) ==
LOC: II 08:09 → 5TH 08:12 → II 13:26
PROVIDERS: ATTEND Internal Medicine
PROC: 3E0437Z Introduction of Electrolytic and Water Balance Substance into Central Vein, Percutaneous Approach (ICD-10-PCS; principal; 2018-08-10)
DX: E86.0 Dehydration (principal)
CPT/HCPCS: 96360; 96361; 96374

== ENCOUNTER 2018-08-17 08:21 | Outpatient (CLI) | payer MEDICARE, MEDICAID ==
[2018-08-17 09:05] VITALS: BP 137/97
== END 2018-08-17 13:14 | disposition home or self-care (01) ==
LOC: II 08:21 → 5TH 08:27 → II 13:14
PROVIDERS: ATTEND Internal Medicine
PROC: 3E0437Z Introduction of Electrolytic and Water Balance Substance into Central Vein, Percutaneous Approach (ICD-10-PCS; principal; 2018-08-17)
DX: E86.0 Dehydration (principal)
CPT/HCPCS: 96360; 96361

== ENCOUNTER 2018-08-24 08:17 | Outpatient (CLI) | payer MEDICARE, MEDICAID | END 2018-08-24 13:06 | disposition home or self-care (01) | LOC: II 08:17 → 5TH 08:33 → II 13:06 | PROVIDERS: ATTEND Internal Medicine | PROC: 3E02340 Introduction of Influenza Vaccine into Muscle, Percutaneous Approach (ICD-10-PCS; principal; 2018-08-24) | PROC: 3E0437Z Introduction of Electrolytic and Water Balance Substance into Central Vein, Percutaneous Approach (ICD-10-PCS; 2018-08-24) | DX: E86.0 Dehydration (principal); Z23 Encounter for immunization | CPT/HCPCS: 90471; 96360; 96361; 96372; 96374; G0008 ==

== ENCOUNTER 2018-09-07 09:07 | Outpatient (CLI) | payer MEDICARE, MEDICAID ==
[2018-09-07 09:45] VITALS: BP 154/105
== END 2018-09-07 14:19 | disposition home or self-care (01) ==
LOC: II 09:07 → 5TH 09:10 → II 14:19
PROVIDERS: ATTEND Internal Medicine
DX: E86.0 Dehydration (principal)
CPT/HCPCS: 96360; 96361; 96374

== ENCOUNTER 2018-09-14 08:21 | Outpatient (CLI) | payer MEDICARE, MEDICAID ==
[~2018-09-14 08:21] MED LIST changes: +NORMAL SALINE 1000 ML 1,000 ML IV PRN; -NORMAL SALINE 1000 ML 2,000 ML IV PRN
[2018-09-14 09:01] VITALS: BP 136/79
== END 2018-09-14 13:09 | disposition home or self-care (01) ==
LOC: II 08:21 → 5TH 08:39 → II 13:09
PROVIDERS: ATTEND Internal Medicine
PROC: 3E0437Z Introduction of Electrolytic and Water Balance Substance into Central Vein, Percutaneous Approach (ICD-10-PCS; principal; 2018-09-14)
DX: E86.0 Dehydration (principal)
CPT/HCPCS: 96360; 96361; 96365; 96366; 96374

== ENCOUNTER 2018-09-21 08:38 | Outpatient (CLI) | payer MEDICARE, MEDICAID ==
[~2018-09-21 08:38] MED LIST changes: -NORMAL SALINE 1000 ML 1,000 ML IV PRN; +NORMAL SALINE 1000 ML 2,000 ML IV PRN
[2018-09-21 08:58] VITALS: BP 143/81
== END 2018-09-21 13:45 | disposition home or self-care (01) ==
LOC: II 08:38 → 5TH 08:40 → II 13:45
PROVIDERS: ATTEND Internal Medicine
PROC: 3E0437Z Introduction of Electrolytic and Water Balance Substance into Central Vein, Percutaneous Approach (ICD-10-PCS; principal; 2018-09-21)
DX: E86.0 Dehydration (principal)
CPT/HCPCS: 96360; 96361

== ENCOUNTER 2018-09-28 10:53 | Outpatient (CLI) | payer MEDICARE, MEDICAID ==
[2018-09-28 10:44] VITALS: BP 168/81
== END 2018-09-28 14:31 | disposition home or self-care (01) ==
LOC: II 10:53 → 5TH 10:54 → II 14:31
PROVIDERS: ATTEND Internal Medicine
PROC: 3E0437Z Introduction of Electrolytic and Water Balance Substance into Central Vein, Percutaneous Approach (ICD-10-PCS; principal; 2018-09-28)
DX: E86.0 Dehydration (principal)
CPT/HCPCS: 96360; 96361

== ENCOUNTER 2018-10-05 08:15 | Outpatient (CLI) | payer MEDICARE, MEDICAID ==
[2018-10-05 08:57] VITALS: BP 150/99
== END 2018-10-05 13:23 | disposition home or self-care (01) ==
LOC: II 08:15 → 5TH 08:18 → II 13:23
PROVIDERS: ATTEND Internal Medicine
PROC: 3E0437Z Introduction of Electrolytic and Water Balance Substance into Central Vein, Percutaneous Approach (ICD-10-PCS; principal; 2018-10-05)
DX: E86.0 Dehydration (principal)
CPT/HCPCS: 96360; 96361

== ENCOUNTER 2018-10-19 08:23 | Outpatient (CLI) | payer MEDICARE, MEDICAID ==
[2018-10-19 08:55] VITALS: BP 201/103
== END 2018-10-19 13:27 | disposition home or self-care (01) ==
LOC: II 08:23 → 5TH 08:28 → II 13:27
PROVIDERS: ATTEND Internal Medicine
PROC: 3E0437Z Introduction of Electrolytic and Water Balance Substance into Central Vein, Percutaneous Approach (ICD-10-PCS; principal; 2018-10-19)
DX: E86.0 Dehydration (principal)
CPT/HCPCS: 96360; 96361

== ENCOUNTER 2018-10-26 08:20 | Outpatient (CLI) | payer MEDICARE, MEDICAID ==
[2018-10-26 09:06] VITALS: BP 162/86
== END 2018-10-26 13:16 | disposition home or self-care (01) ==
LOC: II 08:20 → 5TH 08:30 → II 13:16
PROVIDERS: ATTEND Internal Medicine
PROC: 3E0437Z Introduction of Electrolytic and Water Balance Substance into Central Vein, Percutaneous Approach (ICD-10-PCS; principal; 2018-10-26)
DX: E86.0 Dehydration (principal)
CPT/HCPCS: 96365; 96366; 96374

== ENCOUNTER 2018-11-02 08:11 | Outpatient (CLI) | payer MEDICARE, MEDICAID ==
[2018-11-02 09:55] VITALS: BP 143/85
== END 2018-11-02 13:48 | disposition home or self-care (01) ==
LOC: II 08:11 → 5TH 08:46 → II 13:48
PROVIDERS: ATTEND Internal Medicine
PROC: 3E0437Z Introduction of Electrolytic and Water Balance Substance into Central Vein, Percutaneous Approach (ICD-10-PCS; principal; 2018-11-02)
DX: E86.0 Dehydration (principal)
CPT/HCPCS: 96360; 96361

== ENCOUNTER 2018-11-09 08:26 | Outpatient (CLI) | payer MEDICARE, MEDICAID ==
[2018-11-09 10:54] VITALS: BP 152/86
== END 2018-11-09 13:51 | disposition home or self-care (01) ==
LOC: II 08:26 → 5TH 08:26 → II 13:51
PROVIDERS: ATTEND Internal Medicine
PROC: 3E0437Z Introduction of Electrolytic and Water Balance Substance into Central Vein, Percutaneous Approach (ICD-10-PCS; principal; 2018-11-09)
DX: E86.0 Dehydration (principal)
CPT/HCPCS: 96360; 96361

== ENCOUNTER 2018-11-16 08:39 | Outpatient (CLI) | payer MEDICARE, MEDICAID ==
[2018-11-16 09:05] VITALS: BP 100/61
== END 2018-11-16 13:12 | disposition home or self-care (01) ==
LOC: II 08:39 → 5TH 08:39 → II 13:12
PROVIDERS: ATTEND Internal Medicine
PROC: 3E0437Z Introduction of Electrolytic and Water Balance Substance into Central Vein, Percutaneous Approach (ICD-10-PCS; principal; 2018-11-16)
DX: E86.0 Dehydration (principal)
CPT/HCPCS: 96360; 96361; 96374

== ENCOUNTER 2018-11-16 14:00 | Inpatient (IN) | payer MEDICARE, MEDICAID ==
[2018-11-16] MEDS ORDERED: ASPIRIN 81 MG TABLET, CHEWABLE PO ONE (15:23)
[2018-11-16] MEDS ORDERED: METHYLPREDNISOLONE INJ 125 MG/2 ML SDV IV ONE (15:26)
[2018-11-16] MEDS ORDERED: IPRATROPIUM/ALBUTEROL 0.5-2.5 MG/3 ML AMPUL NEB ONE (15:26)
--- NOTE | 2018-11-16 15:26 | ER Document Report ---
ED Medical Screen (RME) - General Chief Complaint: Urinary Problem Stated Complaint: COUGH Time Seen by Provider: 11/16/18 15:25 Primary Care Provider: LISA MATA MD [Primary Care Provider] - Follow up as needed TRAVEL OUTSIDE OF THE [place] IN LAST 30 DAYS: No - HPI Notes: 11/16/18 15:25 Patient presented to the emergency room with chest pain shortness of breath. She is a patient of Dr. Mata and she goes for rehydration therapy every Wednesday. On exam patient is morbidly obese, abdomen is soft nontender to palpation. There is decreased breath sounds bilaterally with mild wheeze. - Related Data Allergies/Adverse Reactions: ciprofloxacin [From Cipro] Allergy (Severe, Verified 11/16/18 14:04) Hallucinations morphine [Morphine] Allergy (Unknown, Verified 11/16/18 14:04) Past Medical History - Social History Chew tobacco use (# tins/day): No Frequency of alcohol use: None Drug Abuse: None - Past Medical History Cardiac Medical History: Reports: Hx Atrial Fibrillation, Hx Coronary Artery Disease, Hx DVT, Hx Heart Attack - 2002, Hx Hypercholesterolemia, Hx Hypertension Pulmonary Medical History: Reports: Hx Pneumonia - 2006 Neurological Medical History: Endocrine Medical History: Reports: Hx Diabetes Mellitus Type 2 Renal/ Medical History: Reports: Hx Ovarian Cysts, Hx Renal Insufficiency. Denies: Hx Peritoneal Dialysis Malignancy Medical History: Reports: Hx Renal (Kidney) Cancer GI Medical History: Reports: Hx Gastroesophageal Reflux Disease, Hx Hiatal Hernia, Hx Irritable Bowel, Hx Ulcer Musculoskeltal Medical History: Reports Hx Arthritis - Back, Knees Psychiatric Medical History: Denies: Hx Depression Traumatic Medical History: Reports: Hx Fractures Past Surgical History: Reports: Hx Abdominal Surgery - COLOSTOMY. INTESTINAL RUPTURE, Hx Bowel Surgery - COLECTOMY/ileostomy, Hx Cardiac Catheterization, Hx Cardiac Surgery - STENTS, Hx Colostomy, Hx Coronary Stent, Hx Hysterectomy, Hx Ileostomy, Hx Orthopedic Surgery - L knee replacement, right ankle pin, Other - Tracheostomy 10 yrs ago - Immunizations Immunizations up to date: Yes Hx Diphtheria, Pertussis, Tetanus Vaccination: No History of Influenza Vaccine for 06/2017 - 11/2017 Season: Yes Influenza Administration Date for 06/2017 - 11/2017 Season: 06/06/17 Physical Exam - Vital signs Vitals: Temp Resp BP Pulse Ox 98.3 F 22 H 109/71 96 11/16/18 14:30 11/16/18 14:30 11/16/18 14:30 11/16/18 14:30 Course - Vital Signs Vital signs: Temp Pulse Resp BP Pulse Ox 98.3 F 22 H 109/71 96 11/16/18 14:30 11/16/18 14:30 11/16/18 14:30 11/16/18 14:30 Doctor's Discharge - Discharge Referrals: LISA MATA MD [Primary Care Provider] - Follow up as needed
--- NOTE | 2018-11-16 16:22 | RADIOLOGY REPORT (SQ) ---
EXAM DESCRIPTION: CHEST SINGLE VIEW COMPLETED DATE/TIME: 11/16/2018 4:10 pm REASON FOR STUDY: SOB COMPARISON: 07/11/2017 EXAM PARAMETERS: NUMBER OF VIEWS: One view. TECHNIQUE: Single frontal radiographic view of the chest acquired. RADIATION DOSE: NA LIMITATIONS: None. FINDINGS: LUNGS AND PLEURA: Mild pulmonary edema. MEDIASTINUM AND HILAR STRUCTURES: No masses. Contour normal. HEART AND VASCULAR STRUCTURES: Borderline cardiomegaly. BONES: No acute findings. HARDWARE: Right internal jugular catheter. OTHER: No other significant finding. IMPRESSION: Cardiomegaly with mild pulmonary edema. TECHNICAL DOCUMENTATION: JOB ID: [id number] [employer]- All Rights Reserved Reading location - IP/workstation name: [email or web address]
--- NOTE | 2018-11-16 19:30 | EKG REPORT ---
SEVERITY:- ABNORMAL ECG - SINUS RHYTHM FIRST DEGREE AV BLOCK CONSIDER LEFT VENTRICULAR HYPERTROPHY PROBABLE INFERIOR INFARCT, AGE INDETERMINATE : Confirmed by: Brody Guajardo MD 16-Nov-2018 19:30:29
[2018-11-16 22:35] LABS: ABSOLUTE EOSINOPHILS # (AUTO) 0.3 10^3/uL (0.0-0.6); ABSOLUTE MONOCYTES (AUTO) 0.6 10^3/uL (0.1-1.4); ABSOLUTE NEUT (AUTO) 3.9 10^3/uL (1.7-8.2); BASOPHILS % (AUTO) 0.6 % (0-2); EOSINOPHILS % (AUTO) 4.4 % (0-6); HEMATOCRIT 40.3 % (36.0-47.0); HEMOGLOBIN 13.3 g/dL (12.0-15.5); LYMPHOCYTES % (AUTO) 28.3 % (13-45); MEAN CORPUSCULAR HEMOGLOBIN 29.9 pg (27.0-33.4); MEAN CORPUSCULAR HGB CONC 33.1 g/dL (32.0-36.0); MEAN CORPUSCULAR VOLUME 91 fl (80-97); MONOCYTES % (AUTO) 9.4 % (3-13); PLATELET COUNT 183 10^3/uL (150-450); RED BLOOD COUNT 4.45 10^6/uL (3.72-5.28); RED CELL DISTRIBUTION WIDTH 17.2 % (11.5-14.0); SEGMENTED NEUTROPHILS % (AUTO) 57.3 % (42-78); TOTAL CELLS COUNTED % (AUTO) 100 %; WHITE BLOOD COUNT 6.9 10^3/uL (4.0-10.5)
[2018-11-16 22:55] LABS: ALANINE AMINOTRANSFERASE 63 U/L (9-52); ALKALINE PHOSPHATASE 110 U/L (38-126); ANION GAP 9 (5-19); ASPARTATE AMINO TRANSFERASE 46 U/L (14-36); BILIRUBIN,DIRECT 0.3 mg/dL (0.0-0.4); BILIRUBIN,TOTAL 0.5 mg/dL (0.2-1.3); BLOOD UREA NITROGEN 49 mg/dL (7-20); CALCIUM 8.5 mg/dL (8.4-10.2); CARBON DIOXIDE 22 mmol/L (22-30); CHLORIDE 102 mmol/L (98-107); CREATINE KINASE 476 U/L (30-135); GLUCOSE 84 mg/dL (75-110); POTASSIUM 4.7 mmol/L (3.6-5.0); SODIUM 133.2 mmol/L (137-145); TOTAL PROTEIN 7.5 g/dL (6.3-8.2)
[2018-11-16 23:07] LABS: CREATINE KINASE MB 5.67 ng/mL (<4.55); TROPONIN I 0.033 ng/mL
[2018-11-16 23:26] LABS: INTERNATIONAL RATION (INR) 1.08; PROTHROMBIN TIME 14.6 SEC (11.4-15.4)
[2018-11-16 23:27] LABS: PARTIAL THROMBOPLASTIN TIME 29.4 SEC (23.5-35.8)
[2018-11-16 23:29] LABS: D-DIMER 1.39 ug/mL (0.00-0.50)
[2018-11-17] MEDS ORDERED: FENTANYL CITRATE INJ/PF 100 MCG/2 ML AMPUL IV ONE (02:23)
--- NOTE | 2018-11-17 02:28 | ER Document Report ---
ED General - General Chief Complaint: Urinary Problem Stated Complaint: COUGH Time Seen by Provider: 11/16/18 15:25 Primary Care Provider: LISA MATA MD [Primary Care Provider] - Follow up as needed TRAVEL OUTSIDE OF THE [place] IN LAST 30 DAYS: No - HPI Notes: Patient presents emergency department for evaluation. She states she has had a cough and some wheezing over the last several days. She states she has pain in her chest wall in her abdomen, particular when she coughs. She also complains of back pain. She states she is not sure when the last time she urinated was either. She denies any fever. No nausea or vomiting. She states she always has some swelling in her legs. She received IV hydration earlier today. - Related Data Allergies/Adverse Reactions: ciprofloxacin [From Cipro] Allergy (Severe, Verified 11/16/18 14:04) Hallucinations morphine [Morphine] Allergy (Unknown, Verified 11/16/18 14:04) Past Medical History - General Information source: Patient - Social History Smoking Status: Never Smoker Chew tobacco use (# tins/day): No Frequency of alcohol use: None Drug Abuse: None Family History: Reviewed & Not Pertinent, Hypertension Patient has suicidal ideation: No Patient has homicidal ideation: No - Past Medical History Cardiac Medical History: Reports: Hx Atrial Fibrillation, Hx Coronary Artery Disease, Hx DVT, Hx Heart Attack - 2002, Hx Hypercholesterolemia, Hx Hypertension Pulmonary Medical History: Reports: Hx Pneumonia - 2006 Neurological Medical History: Endocrine Medical History: Reports: Hx Diabetes Mellitus Type 2 Renal/ Medical History: Reports: Hx Ovarian Cysts, Hx Renal Insufficiency. Denies: Hx Peritoneal Dialysis Malignancy Medical History: Reports: Hx Renal (Kidney) Cancer GI Medical History: Reports: Hx Gastroesophageal Reflux Disease, Hx Hiatal Hernia, Hx Irritable Bowel, Hx Ulcer Musculoskeletal Medical History: Reports Hx Arthritis - Back, Knees Psychiatric Medical History: Denies: Hx Depression Traumatic Medical History: Reports: Hx Fractures Past Surgical History: Reports: Hx Abdominal Surgery - COLOSTOMY. INTESTINAL RUPTURE, Hx Bowel Surgery - COLECTOMY/ileostomy, Hx Cardiac Catheterization, Hx Cardiac Surgery - STENTS, Hx Colostomy, Hx Coronary Stent, Hx Hysterectomy, Hx Ileostomy, Hx Orthopedic Surgery - L knee replacement, right ankle pin, Other - Tracheostomy 10 yrs ago - Immunizations Immunizations up to date: Yes Hx Diphtheria, Pertussis, Tetanus Vaccination: No Hx Pneumococcal Vaccination: 09/19/13 Review of Systems - Review of Systems Constitutional: Malaise, Weakness EENT: No symptoms reported Cardiovascular: See HPI Respiratory: See HPI Gastrointestinal: No symptoms reported Musculoskeletal: See HPI Skin: No symptoms reported Neurological/Psychological: No symptoms reported Physical Exam - Vital signs Vitals: Temp Resp BP Pulse Ox 98.3 F 22 H 109/71 96 11/16/18 14:30 11/16/18 14:30 11/16/18 14:30 11/16/18 14:30 - Notes Notes: Morbidly obese female, appears her stated age, no acute distress. Is normocephalic and atraumatic. Pupils are equal, round, reactive to light. Oral mucosa is moist. Heart sounds are distant but regular. Lungs reveal diminished breath sounds, likely secondary to body habitus. Abdomen soft, nontender, normoactive bowel sounds. Chest wall is tender to palpation. Extremities show 1+ pitting edema, pretibial. No posterior calf tenderness. Peripheral pulses are equal. Course - Re-evaluation Re-evalutation: 11/17/18 02:28 Patient presents emergency department for evaluation. Orders placed by physician in triage. Laboratory investigations reveal a marked increase in her creatinine. She is continued complaint of pain. Chest x-ray shows pulmonary edema. Her proBNP is elevated, although that may be secondary to her acute renal failure. Will administer conservative IV fluids, as her creatinine is likely elevated secondary to prerenal issues, but I am concerned about her elevated proBNP and possible pulmonary edema on chest x-ray. She is given fentanyl for pain as she is allergic to morphine. We will contact Dr. Mata for evaluation and admission. 11/17/18 02:35 - Vital Signs Vital signs: Temp Pulse Resp BP Pulse Ox 98.3 F 12 127/71 H 89 L 11/16/18 14:30 11/17/18 00:34 11/17/18 00:01 11/17/18 00:01 - Laboratory Result Diagrams: 11/16/18 22:20 11/16/18 22:20 Laboratory results interpreted by me: 11/16/18 11/16/18 11/16/18 22:20 22:20 22:20 RDW 17.2 H D-Dimer Sodium 133.2 L BUN 49 H Creatinine 4.03 H Est GFR ( Amer) 14 L Est GFR (Non-Af Amer) 11 L AST 46 H ALT 63 H Creatine Kinase 476 H CK-MB (CK-2) 5.67 H NT-Pro-B Natriuret Pep 3750 H 11/16/18 23:14 RDW D-Dimer 1.39 H Sodium BUN Creatinine Est GFR ( Amer) Est GFR (Non-Af Amer) AST ALT Creatine Kinase CK-MB (CK-2) NT-Pro-B Natriuret Pep - Diagnostic Test Radiology reviewed: Reports reviewed - Cardiomegaly with mild pulmonary edema - EKG Interpretation by Me Additional EKG results interpreted by me: 11/17/18 02:29 Sinus mechanism with a rate of 69 bpm. Normal axis, first-degree AV block. No acute ST changes concerning for ischemia or infarction. Discharge - Discharge Clinical Impression: Acute renal failure, Pulmonary edema Condition: Stable Disposition: ADMITTED INPATIENT Admitting Provider: Yuval Unit Admitted: Telemetry Referrals: LISA MATA MD [Primary Care Provider] - Follow up as needed
[2018-11-17] MEDS ORDERED: NORMAL SALINE 500 ML IV ONE (02:36)
[2018-11-17] MEDS ORDERED: DEXTROSE 40% GEL 15 GM TUBE PO PRN ×2 (03:10)
[2018-11-17] MEDS ORDERED: GLUCAGON,HUMAN RECOMB 1 MG INJ IM PRN (03:10)
[2018-11-17] MEDS ORDERED: DEXTROSE 50%-WATER 25 GM/50 ML DISP.SYRIN IV PRN ×2 (03:10)
[2018-11-17 04:24] LABS: LIPASE 446.9 U/L (23-300); PHOSPHORUS 6.4 mg/dL (2.5-4.5)
[2018-11-17 04:37] LABS: CREATINE KINASE MB 4.59 ng/mL (<4.55)
[2018-11-17 04:41] LABS: FREE T4 (FREE THYROXINE) 1.26 ng/dL (0.78-2.19)
[2018-11-17 04:47] LABS: TROPONIN I 0.034 ng/mL
[2018-11-17 04:55] LABS: THYROID STIMULATING HORMONE 0.64 uIU/mL (0.47-4.68)
[2018-11-17] MEDS: HEPARIN SOD (PORCINE) 5,000 UNIT/ML 1 ML SYRINGE SUBCUT SCH ×3 (05:29→22:23)
[2018-11-17 06:34] LABS: APPEARANCE,URINE CLOUDY; BILIRUBIN,URINE NEGATIVE (NEGATIVE); COLOR,URINE YELLOW; GLUCOSE, URINE NEGATIVE (NEGATIVE); KETONES,URINE NEGATIVE (NEGATIVE); LEUKOCYTE ESTERASE,URINE LARGE (NEGATIVE); NITRITE,URINE POSITIVE (NEGATIVE); PROTEIN,URINE NEGATIVE (NEGATIVE); URINE SPECIFIC GRAVITY 1.005; UROBILINOGEN,URINE NEGATIVE mg/dL (<2.0)
[2018-11-17 06:46] LABS: URINE AMPHETAMINES SCREEN NEGATIVE; URINE BARBITURATES SCREEN NEGATIVE; URINE BENZODIAZEPINES SCREEN NEGATIVE; URINE COCAINE SCREEN NEGATIVE; URINE MARIJUANA (THC) SCREEN NEGATIVE; URINE METHADONE SCREEN NEGATIVE; URINE PHENCYCLIDINE SCREEN NEGATIVE
[2018-11-17] MEDS: INSULIN LISPRO 100 UNIT/ML 3 ML VIAL SUBCUT SCH ×4 (08:04→22:15)
[2018-11-17] MEDS: FUROSEMIDE INJ/PF 40 MG/4 ML SDV IV SCH (09:41)
[2018-11-17] MEDS ORDERED: ALBUTEROL SULFATE HFA (90 MCG/PUFF) 8 GM MDI (1 MDI/ER DISP) IH PRN (12:33)
[2018-11-17] MEDS ORDERED: (PENDING PHARMACY ID) (Metoprolol Succinate [Toprol Xl] 200 MG) PO SCH (12:45)
[2018-11-17] MEDS ORDERED: (PENDING PHARMACY ID) (Linagliptin [Tradjenta] 5 MG) PO SCH (12:45)
[2018-11-17] MEDS ORDERED: ALBUTEROL SULFATE HFA (90 MCG/PUFF) 200 PUFF/8.5 GM MDI IH PRN (12:59)
[2018-11-17] MEDS: PIOGLITAZONE HCL 30 MG TABLET PO SCH (13:09)
[2018-11-17] MEDS: GLIPIZIDE XL 5 MG TAB.ER.24 PO SCH (13:09)
[2018-11-17] MEDS: SITAGLIPTIN PHOSPHATE 25 MG TABLET PO SCH (13:09)
[2018-11-17 13:19] LABS: INTERNATIONAL RATION (INR) 0.99; PROTHROMBIN TIME 13.6 SEC (11.4-15.4)
[2018-11-17 13:43] LABS: CREATINE KINASE MB 4.05 ng/mL (<4.55); TROPONIN I 0.022 ng/mL
[2018-11-17] MEDS: METOPROLOL SUCCINATE 50 MG TAB.SR.24H PO SCH (13:44)
[2018-11-17] MEDS: GABAPENTIN 300 MG CAPSULE PO SCH ×3 (13:50→23:58)
[2018-11-17] MEDS: SODIUM BICARBONATE 650 MG TABLET PO SCH ×2 (13:50→18:24)
[2018-11-17] MEDS: OXYCODONE HCL IR 5 MG TABLET PO PRN ×2 (13:51→22:24)
[2018-11-17] MEDS: MAGNESIUM OXIDE 400 MG TABLET PO SCH (13:51)
--- NOTE | 2018-11-17 15:22 | RADIOLOGY REPORT (SQ) ---
EXAM DESCRIPTION: U/S RETROPERITON (RENAL/AORTA) COMPLETED DATE/TIME: 11/17/2018 3:11 pm REASON FOR STUDY: acute kidney injury COMPARISON: None. TECHNIQUE: Dynamic and static grayscale images acquired of the kidneys and bladder and recorded on P ACS. Additional selected color Doppler and spectral images recorded. LIMITATIONS: None. FINDINGS: RIGHT KIDNEY: Normal size. Normal echogenicity. No solid or suspicious masses. Prominent renal pelvis. No calcifications. LEFT KIDNEY: Normal size. Normal echogenicity. No solid or suspicious masses. Prominent renal pelvi s. No calcifications. BLADDER: No masses. OTHER FINDINGS: No other significant finding. IMPRESSION: PROMINENT RENAL PELVIS IN BOTH KIDNEYS. THIS COULD INDICATE DEVELOPING HYDRONEPHROSIS. IF CLINICALLY INDICATED, CT OF THE ABDOMEN AND PELVIS MAY BE HELPFUL FOR MORE COMPLETE EVALUATION. TECHNICAL DOCUMENTATION: JOB ID: [id number] [employer]- All Rights Reserved Reading location - IP/workstation name: [email or web address]
[2018-11-17 22:05] LABS: CREATINE KINASE MB 3.05 ng/mL (<4.55); TROPONIN I 0.018 ng/mL
[2018-11-18] MEDS: HYDROMORPHONE HCL INJ/PF 2 MG/ML AMPULE IV PRN ×5 (00:27→21:06)
[2018-11-18] MEDS: NORMAL SALINE 1000 ML 1,000 ML IV PRN ×3 (00:30→23:23)
[2018-11-18] MEDS: GABAPENTIN 300 MG CAPSULE PO SCH ×4 (05:07→23:22)
[2018-11-18] MEDS: HEPARIN SOD (PORCINE) 5,000 UNIT/ML 1 ML SYRINGE SUBCUT SCH ×3 (05:07→20:59)
[2018-11-18 05:20] LABS: ABSOLUTE EOSINOPHILS # (AUTO) 0.3 10^3/uL (0.0-0.6); ABSOLUTE LYMPHOCYTES (AUTO) 1.2 10^3/uL (0.5-4.7); ABSOLUTE MONOCYTES (AUTO) 0.5 10^3/uL (0.1-1.4); ABSOLUTE NEUT (AUTO) 2.9 10^3/uL (1.7-8.2); BASOPHILS % (AUTO) 0.9 % (0-2); EOSINOPHILS % (AUTO) 6.2 % (0-6); HEMATOCRIT 35.6 % (36.0-47.0); HEMOGLOBIN 11.8 g/dL (12.0-15.5); LYMPHOCYTES % (AUTO) 24.1 % (13-45); MEAN CORPUSCULAR HEMOGLOBIN 29.9 pg (27.0-33.4); MEAN CORPUSCULAR HGB CONC 33.1 g/dL (32.0-36.0); MEAN CORPUSCULAR VOLUME 90 fl (80-97); MONOCYTES % (AUTO) 10.6 % (3-13); PLATELET COUNT 132 10^3/uL (150-450); RED BLOOD COUNT 3.94 10^6/uL (3.72-5.28); SEGMENTED NEUTROPHILS % (AUTO) 58.2 % (42-78); TOTAL CELLS COUNTED % (AUTO) 100 %
[2018-11-18 05:48] LABS: ALANINE AMINOTRANSFERASE 46 U/L (9-52); ALBUMIN 3.1 g/dL (3.5-5.0); ALKALINE PHOSPHATASE 89 U/L (38-126); ANION GAP 5 (5-19); ASPARTATE AMINO TRANSFERASE 34 U/L (14-36); BILIRUBIN,DIRECT 0.2 mg/dL (0.0-0.4); BILIRUBIN,TOTAL 0.3 mg/dL (0.2-1.3); BLOOD UREA NITROGEN 41 mg/dL (7-20); CALCIUM 8.4 mg/dL (8.4-10.2); CARBON DIOXIDE 28 mmol/L (22-30); CHLORIDE 108 mmol/L (98-107); CHOLESTEROL 142.57 mg/dL (0-200); GLUCOSE 145 mg/dL (75-110); POTASSIUM 4.7 mmol/L (3.6-5.0); SODIUM 141.4 mmol/L (137-145); TOTAL PROTEIN 6.2 g/dL (6.3-8.2); TRIGLYCERIDES 148 mg/dL (<150)
[2018-11-18 05:59] LABS: DIRECT LDL 65 mg/dL (<100)
[2018-11-18] MEDS: GLIPIZIDE XL 5 MG TAB.ER.24 PO SCH (07:58)
[2018-11-18] MEDS: INSULIN LISPRO 100 UNIT/ML 3 ML VIAL SUBCUT SCH ×4 (07:58→22:01)
[2018-11-18] MEDS: METOPROLOL SUCCINATE 50 MG TAB.SR.24H PO SCH (10:07)
[2018-11-18] MEDS: SODIUM BICARBONATE 650 MG TABLET PO SCH ×3 (10:07→18:22)
[2018-11-18] MEDS: FUROSEMIDE INJ/PF 40 MG/4 ML SDV IV SCH (10:08)
[2018-11-18] MEDS: PIOGLITAZONE HCL 30 MG TABLET PO SCH (10:10)
[2018-11-18] MEDS: SITAGLIPTIN PHOSPHATE 25 MG TABLET PO SCH (10:10)
[2018-11-18] MEDS: MAGNESIUM OXIDE 400 MG TABLET PO SCH (10:10)
--- NOTE | 2018-11-18 11:57 | XCELERA REPORT ---
[address] [address] Transthoracic Echocardiogram Report Name: RANDEE VELÁSQUEZ Age: 63 yrs Gender: Female : 1955 Patient Status: Inpatient Patient Location: [address] [place] [address] Study Date: 11/17/2018 09:59 AM Height: 24 in Weight: 657 lb BSA: 1.6 m2 Procedure: A two-dimensional transthoracic echocardiogram with color flow and Doppler was performed. Study Quality: Poor. The study was technically difficult with many images being suboptimal in quality. Images were not obtained from all of the standard acoustic windows due to the limited scope of the study. Reason For Study: chf History: CHF. Ordering Physician: LISA MATA Performed By: Marlee Ramos Interpretation Summary The left ventricle is mildly to moderately dilated. There is normal left ventricular wall thickness. No True apical 2 chamber views obtained.Hence cannot comment on the apical anterior , the basal anterior, the basal inferior and apical inferior frank.The mid anterior , the mid inferior and the rest of the LV frank are moderately hypokinetic.LVEF is moderately ly reduced at 40%. Doppler measurements suggest impaired left ventricular relaxation, which is associated with grade I/IV or mild diastolic dysfunction The right ventricle is not well visualized secondary to technical limitations Suspect RV enlargement. The left atrium is mildly dilated. There is no evidence of mitral valve prolapse. There is no mitral valve stenosis. There is a trace to mild amount of mitral regurgitation There is no aortic valve stenosis No aortic regurgitation is present. There is no tricuspid stenosis. Probably trsce to mid TR.No significant pulmonary hypertension.RVSP is 32 mm of Hg , with RA mean f 10. There is no pericardial effusion. MMode/2D Measurements & Calculations RVDd: 3.8 cm LVIDd: 6.0 cm FS: 19.5 % Ao root diam: 2.8 cm IVSd: 0.75 cm LVIDs: 4.8 cm EDV(Teich): 177.8 ml Ao root area: 6.3 cm2 LVPWd: 1.1 cm ESV(Teich): 107.6 ml EF(Teich): 39.5 % Doppler Measurements & Calculations MV E max macario: MV dec slope: Ao V2 max: LV V1 max P.1 cm/sec 525.1 cm/sec2 130.2 cm/sec 3.6 mmHg MV A max macario: MV dec time: 0.16 sec Ao max PG: LV V1 max: 60.9 cm/sec 6.8 mmHg 95.1 cm/sec MV E/A: 1.4 TR max macario: 236.0 cm/sec TR max P.3 mmHg Left Ventricle The left ventricle is mildly to moderately dilated. There is normal left ventricular wall thickness. No True apical 2 chamber views obtained.Hence cannot comment on the apical anterior , the basal anterior, the basal inferior and apical inferior frank.The mid anterior , the mid inferior and the rest of the LV frank are moderately hypokinetic.LVEF is moderately ly reduced at 40%. Doppler measurements suggest impaired left ventricular relaxation, which is associated with grade I/IV or mild diastolic dysfunction. Right Ventricle The right ventricle is not well visualized secondary to technical limitations. Suspect RV enlargement. Atria Right atrium not well visualized secondary to technical limitations. The left atrium is mildly dilated. Mitral Valve There is no evidence of mitral valve prolapse. There is no mitral valve stenosis. There is a trace to mild amount of mitral regurgitation. Aortic Valve There is no aortic valve stenosis. No aortic regurgitation is present. Tricuspid Valve There is no tricuspid stenosis. Probably trsce to mid TR.No significant pulmonary hypertension.RVSP is 32 mm of Hg , with RA mean f 10. Pulmonic Valve The pulmonic valve is not well visualized. Great Vessels The aortic root is not well visualized. Effusions There is no pericardial effusion. : LISA MATA > Cari Sharp
[2018-11-18] MEDS: OXYCODONE HCL IR 5 MG TABLET PO PRN (14:52)
[2018-11-18] MEDS ORDERED: CEFTRIAXONE 1 GM/D5W RTU 1 GM/50 ML RTUPB IV SCH (19:00)
--- NOTE | 2018-11-18 21:48 | PDOC H&P ---
History of Present Illness Admission Date/PCP: 11/17/18 02:51 LISA MATA MD History of Present Illness: RANDEE VELÁSQUEZ is a 63 year old female, She came to the emergency room earlier this morning for evaluation of cough, shortness of breath, in the emergency room she was found to have acute kidney injury the serum creatinine was 4, the today state that was done also showed pulmonary vascular congestion. A 2D echo was done this afternoon because of concern for CHF, the BNP was elevated but this is difficult to interpret in the setting of acute kidney injury. The 2D echo d emonstrated moderately dilated left ventricle normal wall thickness the estimated ejection fraction of left ventricle was 40%. Doppler measurement suggests impaired left ventricle relaxation which is consistent with grade 1 diastolic dysfunction, the left atrium is dilated no evidence of mitral valve prolapse.She has a high output ileostomy bag with tendency to develop prerenal acute kidney injury she has a history of recurrent UTI, history of kidney cancer status post cryosurgery, history of recurrent multiple hospitalization for usually prerenal acute kidney injury due to high output ileostomy bag but I made arrangement for this patient to receive outpatient intravenous normal saline and this strategy was very effective in keeping her out of the hospital system for a very long time until this hospital admission Past Medical History Cardiac Medical History: Reports: Atrial Fibrillation, Coronary Artery Disease, DVT, Myocardial Infarction - 2002, Hyperlipidema, Hypertension Pulmonary Medical History: Reports: Pneumonia - 2006 Neurological Medical History: Endocrine Medical History: Reports: Diabetes Mellitus Type 2, Obesity Malignancy Medical History: Reports: Renal (Kidney) Cancer GI Medical History: Reports: Gastroesophageal Reflux Disease, Hiatal Hernia Musculoskeltal Medical History: Reports: Arthritis - Back, Knees Hematology: Reports: Anemia Past Surgical History Past Surgical History: Reports: Cardiac Catheterization, Colostomy, Coronary Stent, Hysterectomy, Ileostomy, Orthopedic Surgery - L knee replacement, right ankle pin, Other - Tracheostomy 10 yrs ago Social History Smoking Status: Never Smoker Frequency of Alcohol Use: None Hx Recreational Drug Use: No Drugs: None Hx Prescription Drug Abuse: No - Advance Directive Resuscitation Status: Full Code Family History Family History: Reviewed & Not Pertinent, Hypertension Parental Family History Reviewed: Yes Children Family History Reviewed: Yes Sibling(s) Family History Reviewed.: Yes Medication/Allergy Home Medications: Albuterol Sulfate [Proventil Hfa] 2 puff IH Q4HP PRN 10/14/17 Ergocalciferol (Vitamin D2) [Vitamin D2] 50,000 unit PO KYLE@1000 10/14/17 Gabapentin [Neurontin] 600 mg PO QID 10/14/17 Glipizide [Glipizide Xl] 5 mg PO DAILY 10/14/17 Linagliptin [Tradjenta] 5 mg PO DAILY 10/14/17 Loperamide HCl [Loperamide] 4 mg PO ASDIR PRN 10/14/17 Magnesium Oxide [Mag-Ox 400 mg Tablet] 400 mg PO DAILY 10/14/17 Oxycodone HCl [Oxy-Ir 5 mg Tablet] 10 mg PO TIDP PRN 10/14/17 Pioglitazone HCl [Actos] 30 mg PO DAILY 10/14/17 Sodium Bicarbonate [Sodium Bicarbonate 650 mg Tablet] 1,300 mg PO TID 10/14/17 Metoprolol Succinate [Toprol Xl] 200 mg PO DAILY 11/17/18 Allergies/Adverse Reactions: ciprofloxacin [From Cipro] Allergy (Severe, Verified 11/16/18 14:04) Hallucinations morphine [Morphine] Allergy (Unknown, Verified 11/16/18 14:04) Review of Systems Constitutional: ABSENT: chills, fever(s), headache(s), weight gain, weight loss Eyes: ABSENT: visual disturbances Ears: ABSENT: hearing changes Cardiovascular: PRESENT: dyspnea on exertion Respiratory: PRESENT: cough. ABSENT: hemoptysis Gastrointestinal: ABSENT: abdominal pain, constipation, diarrhea, hematemesis, hematochezia, nausea, vomiting Genitourinary: ABSENT: dysuria, hematuria Musculoskeletal: ABSENT: joint swelling Integumentary: ABSENT: rash, wounds Neurological: ABSENT: abnormal gait, abnormal speech, confusion, dizziness, focal weakness, syncope Psychiatric: ABSENT: anxiety, depression, homidical ideation, suicidal ideation Endocrine: ABSENT: cold intolerance, heat intolerance, menstrual abnormalities, polydipsia, polyuria Hematologic/Lymphatic: ABSENT: easy bleeding, easy bruising, lymphadenopathy Physical Exam Vital Signs: Temp Pulse Resp BP Pulse Ox 97.5 F 72 18 98/53 L 97 11/17/18 11:23 11/17/18 14:00 11/17/18 11:23 11/17/18 11:23 11/17/18 16:18 Intake & Output 11/16/18 11/17/18 11/18/18 06:59 06:59 06:59 Intake Total 500 450 Output Total 1400 Balance 500 -950 Weight 135.2 kg General appearance: PRESENT: no acute distress Head exam: PRESENT: atraumatic, normocephalic Eye exam: PRESENT: conjunctiva pink, EOMI, PERRLA Ear exam: PRESENT: normal external ear exam Mouth exam: PRESENT: moist, tongue midline Neck exam: PRESENT: full ROM Respiratory exam: PRESENT: clear to auscultation stephen Cardiovascular exam: PRESENT: RRR, +S1, +S2 Pulses: PRESENT: normal dorsalis pedis pul, +2 pedal pulses bilateral Vascular exam: PRESENT: normal capillary refill GI/Abdominal exam: PRESENT: normal bowel sounds, soft, other - Ileostomy bag in place Rectal exam: PRESENT: deferred Neurological exam: PRESENT: alert, awake, oriented to person, oriented to place, oriented to time, oriented to situation, CN II-XII grossly intact. ABSENT: motor sensory deficit Psychiatric exam: PRESENT: appropriate affect, normal mood Skin exam: PRESENT: dry, intact, warm Results Laboratory Results: 11/16/18 22:20 11/16/18 22:20 11/16/18 11/16/18 11/17/18 22:20 22:20 03:49 WBC 6.9 RBC 4.45 Hgb 13.3 Hct 40.3 MCV 91 MCH 29.9 MCHC 33.1 RDW 17.2 H Plt Count 183 Seg Neutrophils % 57.3 Lymphocytes % 28.3 Monocytes % 9.4 Eosinophils % 4.4 Basophils % 0.6 Absolute Neutrophils 3.9 Absolute Lymphocytes 2.0 Absolute Monocytes 0.6 Absolute Eosinophils 0.3 Absolute Basophils 0.0 Sodium 133.2 L Potassium 4.7 Chloride 102 Carbon Dioxide 22 Anion Gap 9 BUN 49 H Creatinine 4.03 H Est GFR ( Amer) 14 L Est GFR (Non-Af Amer) 11 L Glucose 84 Calcium 8.5 Phosphorus 6.4 H Magnesium 1.9 Total Bilirubin 0.5 AST 46 H ALT 63 H Alkaline Phosphatase 110 Ammonia Total Protein 7.5 Albumin 4.0 Amylase 110 Lipase 446.9 H TSH Free T4 Urine Color Urine Appearance Urine pH Ur Specific [place] Urine Protein Urine Glucose (UA) Urine Ketones Urine Blood Urine Nitrite Ur Leukocyte Esterase Urine WBC (Auto) Urine RBC (Auto) 11/17/18 11/17/18 11/17/18 03:49 03:49 06:08 WBC RBC Hgb Hct MCV MCH MCHC RDW Plt Count Seg Neutrophils % Lymphocytes % Monocytes % Eosinophils % Basophils % Absolute Neutrophils Absolute Lymphocytes Absolute Monocytes Absolute Eosinophils Absolute Basophils Sodium Potassium Chloride Carbon Dioxide Anion Gap BUN Creatinine Est GFR ( Amer) Est GFR (Non-Af Amer) Glucose Calcium Phosphorus Magnesium Total Bilirubin AST ALT Alkaline Phosphatase Ammonia < 8.7 L Total Protein Albumin Amylase Lipase TSH 0.64 Free T4 1.26 Urine Color YELLOW Urine Appearance CLOUDY Urine pH 5.0 Ur Specific [place] 1.005 Urine Protein NEGATIVE Urine Glucose (UA) NEGATIVE Urine Ketones NEGATIVE Urine Blood MODERATE H Urine Nitrite POSITIVE H Ur Leukocyte Esterase LARGE H Urine WBC (Auto) 16 Urine RBC (Auto) 5 11/16/18 11/16/18 11/17/18 22:20 22:20 02:04 Creatine Kinase 476 H CK-MB (CK-2) 5.67 H Troponin I 0.033 0.031 NT-Pro-B Natriuret Pep 3750 H 11/17/18 11/17/18 11/17/18 03:49 03:49 03:49 Creatine Kinase 391 H CK-MB (CK-2) 4.59 H Troponin I 0.034 NT-Pro-B Natriuret Pep 3430 H 11/17/18 11/17/18 12:51 12:51 Creatine Kinase 297 H CK-MB (CK-2) 4.05 Troponin I 0.022 NT-Pro-B Natriuret Pep Impressions: Chest X-Ray 11/16/18 15:24 IMPRESSION: Cardiomegaly with mild pulmonary edema. Renal Ultrasound 11/17/18 00:00 IMPRESSION: PROMINENT RENAL PELVIS IN BOTH KIDNEYS. THIS COULD INDICATE DEVELOPING HYDRONEPHROSIS. IF CLINICALLY INDICATED, CT OF THE ABDOMEN AND PELVIS MAY BE HELPFUL FOR MORE COMPLETE EVALUATION. Assessment & Plan - Diagnosis (1) Acute kidney injury Is this a current diagnosis for this admission?: Yes Plan: She has acute kidney injury this is most likely prerenal azotemia from high output ileostomy bag. She has underlying chronic kidney disease stage III, she will be treated with normal saline and also Lasix intravenously to prevent volume overload because she has cardiomyopathy with the EF of about 40% (2) Chronic systolic heart failure Is this a current diagnosis for this admission?: Yes (3) Morbid obesity Is this a current diagnosis for this admission?: Yes (4) Chronic kidney disease, stage 3 Is this a current diagnosis for this admission?: Yes (5) T2DM (type 2 diabetes mellitus) Qualifiers: Diabetes mellitus termite treater helper insulin use: with alf use Diabetes mellitus complication status: with neurologic complications Diabetes mellitus complication detail: with polyneuropathy Qualified Code(s): E11.42 - Type 2 diabetes mellitus with diabetic polyneuropathy; Z79.4 - shelter (current) use of insulin Is this a current diagnosis for this admission?: Yes (6) Coronary artery disease Qualifiers: Coronary Disease-Associated Artery/Lesion type: [place] artery [place] vs. transplanted heart: [place] heart Associated angina: without angina Qualified Code(s): I25.10 - Atherosclerotic heart disease of [place] coronary artery without angina pectoris Is this a current diagnosis for this admission?: Yes
--- NOTE | 2018-11-18 21:54 | PDOC PROGRESS REPORT ---
Subjective Progress Note for:: 11/18/18 Subjective:: Patient was seen today by the bedside, the urine culture grew gram-negative kishor, specific pathogen is pending, she has significant colony count more than 100,000 this suggest a true infection Reason For Visit: ACUTE KIDNEY INJURY, CHF Physical Exam Vital Signs: Temp Pulse Resp BP Pulse Ox 98.2 F 62 20 137/64 H 100 11/18/18 19:43 11/18/18 19:43 11/18/18 19:43 11/18/18 19:43 11/18/18 19:43 Intake & Output 11/17/18 11/18/18 11/19/18 06:59 06:59 06:59 Intake Total 500 2194 2137 Output Total 3200 2600 Balance 500 -1006 -463 Weight 135.2 kg 116.8 kg 116.8 kg General appearance: PRESENT: no acute distress Eye exam: PRESENT: PERRLA Respiratory exam: PRESENT: clear to auscultation stephen Cardiovascular exam: PRESENT: +S1, +S2 GI/Abdominal exam: PRESENT: soft Neurological exam: PRESENT: alert Results Laboratory Results: 11/18/18 04:54 11/18/18 04:54 11/18/18 11/18/18 04:54 04:54 WBC 5.0 RBC 3.94 Hgb 11.8 L Hct 35.6 L MCV 90 MCH 29.9 MCHC 33.1 RDW 17.0 H Plt Count 132 L Seg Neutrophils % 58.2 Lymphocytes % 24.1 Monocytes % 10.6 Eosinophils % 6.2 H Basophils % 0.9 Absolute Neutrophils 2.9 Absolute Lymphocytes 1.2 Absolute Monocytes 0.5 Absolute Eosinophils 0.3 Absolute Basophils 0.0 Sodium 141.4 Potassium 4.7 Chloride 108 H Carbon Dioxide 28 Anion Gap 5 BUN 41 H Creatinine 2.45 H Est GFR ( Amer) 24 L Est GFR (Non-Af Amer) 20 L Glucose 145 H Calcium 8.4 Total Bilirubin 0.3 AST 34 ALT 46 Alkaline Phosphatase 89 Total Protein 6.2 L Albumin 3.1 L Triglycerides 148 Cholesterol 142.57 LDL Cholesterol Direct 65 VLDL Cholesterol 30.0 HDL Cholesterol 50 11/16/18 11/16/18 11/17/18 22:20 22:20 02:04 Creatine Kinase 476 H CK-MB (CK-2) 5.67 H Troponin I 0.033 0.031 NT-Pro-B Natriuret Pep 3750 H 11/17/18 11/17/18 11/17/18 03:49 03:49 03:49 Creatine Kinase 391 H CK-MB (CK-2) 4.59 H Troponin I 0.034 NT-Pro-B Natriuret Pep 3430 H 11/17/18 11/17/18 11/17/18 12:51 12:51 21:30 Creatine Kinase 297 H 224 H CK-MB (CK-2) 4.05 Troponin I 0.022 NT-Pro-B Natriuret Pep 11/17/18 21:30 Creatine Kinase CK-MB (CK-2) 3.05 Troponin I 0.018 NT-Pro-B Natriuret Pep Impressions: Chest X-Ray 11/16/18 15:24 IMPRESSION: Cardiomegaly with mild pulmonary edema. Renal Ultrasound 11/17/18 00:00 IMPRESSION: PROMINENT RENAL PELVIS IN BOTH KIDNEYS. THIS COULD INDICATE DEVELOPING HYDRONEPHROSIS. IF CLINICALLY INDICATED, CT OF THE ABDOMEN AND PELVIS MAY BE HELPFUL FOR MORE COMPLETE EVALUATION. Assessment & Plan - Diagnosis (1) Acute kidney injury Is this a current diagnosis for this admission?: Yes Plan: The kidney function is improved with the strategy of normal saline and Lasix suggesting that this was likely prerenal azotemia (2) Chronic systolic heart failure Is this a current diagnosis for this admission?: Yes Plan: Start Entresto (3) Morbid obesity Is this a current diagnosis for this admission?: Yes (4) Chronic kidney disease, stage 3 Is this a current diagnosis for this admission?: Yes (5) T2DM (type 2 diabetes mellitus) Qualifiers: Diabetes mellitus middle or intermediate school principal insulin use: with middle or intermediate school principal use Diabetes mellitus complication status: with neurologic complications Diabetes mellitus complication detail: with polyneuropathy Qualified Code(s): E11.42 - Type 2 diabetes mellitus with diabetic polyneuropathy; Z79.4 - intermediate project manager (current) use of insulin Is this a current diagnosis for this admission?: Yes (6) Coronary artery disease Qualifiers: Coronary Disease-Associated Artery/Lesion type: [place] artery [place] vs. transplanted heart: [place] heart Associated angina: without angina Qualified Code(s): I25.10 - Atherosclerotic heart disease of [place] coronary artery without angina pectoris Is this a current diagnosis for this admission?: Yes (7) Urinary tract infection Qualifiers: Urinary tract infection type: site unspecified Hematuria presence: without hematuria Qualified Code(s): N39.0 - Urinary tract infection, site not specified Is this a current diagnosis for this admission?: Yes Plan: Start IV ceftriaxone
[2018-11-18] MEDS: LOPERAMIDE HCL 2 MG CAPSULE PO PRN (21:59)
[2018-11-18] MEDS: SACUBITRIL/VALSARTAN 24 MG/26 MG TABLET PO SCH (21:59)
[2018-11-18 23:07] LABS: CREATINE KINASE MB 2.05 ng/mL (<4.55); TROPONIN I 0.018 ng/mL
[2018-11-19] MEDS: HYDROMORPHONE HCL INJ/PF 2 MG/ML AMPULE IV PRN ×6 (01:10→22:00)
[2018-11-19] MEDS: HEPARIN SOD (PORCINE) 5,000 UNIT/ML 1 ML SYRINGE SUBCUT SCH ×3 (05:16→21:19)
[2018-11-19] MEDS: GABAPENTIN 300 MG CAPSULE PO SCH ×4 (05:20→23:55)
[2018-11-19 06:34] LABS: ABSOLUTE EOSINOPHILS # (AUTO) 0.2 10^3/uL (0.0-0.6); ABSOLUTE LYMPHOCYTES (AUTO) 1.5 10^3/uL (0.5-4.7); ABSOLUTE MONOCYTES (AUTO) 0.5 10^3/uL (0.1-1.4); ABSOLUTE NEUT (AUTO) 3.4 10^3/uL (1.7-8.2); BASOPHILS % (AUTO) 0.7 % (0-2); EOSINOPHILS % (AUTO) 4.2 % (0-6); HEMATOCRIT 38.2 % (36.0-47.0); HEMOGLOBIN 12.5 g/dL (12.0-15.5); LYMPHOCYTES % (AUTO) 25.6 % (13-45); MEAN CORPUSCULAR HEMOGLOBIN 29.4 pg (27.0-33.4); MEAN CORPUSCULAR HGB CONC 32.6 g/dL (32.0-36.0); MEAN CORPUSCULAR VOLUME 90 fl (80-97); MONOCYTES % (AUTO) 9.2 % (3-13); PLATELET COUNT 143 10^3/uL (150-450); RED BLOOD COUNT 4.23 10^6/uL (3.72-5.28); SEGMENTED NEUTROPHILS % (AUTO) 60.3 % (42-78); TOTAL CELLS COUNTED % (AUTO) 100 %; WHITE BLOOD COUNT 5.7 10^3/uL (4.0-10.5)
[2018-11-19 06:57] LABS: ALANINE AMINOTRANSFERASE 36 U/L (9-52); ALBUMIN 3.4 g/dL (3.5-5.0); ALKALINE PHOSPHATASE 98 U/L (38-126); ANION GAP 7 (5-19); ASPARTATE AMINO TRANSFERASE 35 U/L (14-36); BILIRUBIN,DIRECT 0.3 mg/dL (0.0-0.4); BILIRUBIN,TOTAL 0.5 mg/dL (0.2-1.3); BLOOD UREA NITROGEN 27 mg/dL (7-20); CALCIUM 8.7 mg/dL (8.4-10.2); CARBON DIOXIDE 27 mmol/L (22-30); CHLORIDE 108 mmol/L (98-107); CREATINE KINASE 157 U/L (30-135); GLUCOSE 85 mg/dL (75-110); POTASSIUM 4.8 mmol/L (3.6-5.0); SODIUM 141.8 mmol/L (137-145); TOTAL PROTEIN 6.6 g/dL (6.3-8.2)
[2018-11-19 07:07] LABS: CREATINE KINASE MB 2.21 ng/mL (<4.55); TROPONIN I 0.014 ng/mL
[2018-11-19] MEDS: INSULIN LISPRO 100 UNIT/ML 3 ML VIAL SUBCUT SCH ×4 (08:39→21:55)
[2018-11-19] MEDS: MAGNESIUM OXIDE 400 MG TABLET PO SCH (09:13)
[2018-11-19] MEDS: SODIUM BICARBONATE 650 MG TABLET PO SCH ×3 (09:14→17:44)
[2018-11-19] MEDS: METOPROLOL SUCCINATE 50 MG TAB.SR.24H PO SCH (09:15)
[2018-11-19] MEDS: FUROSEMIDE INJ/PF 40 MG/4 ML SDV IV SCH (09:15)
[2018-11-19] MEDS: PIOGLITAZONE HCL 30 MG TABLET PO SCH (09:15)
[2018-11-19] MEDS: GLIPIZIDE XL 5 MG TAB.ER.24 PO SCH (09:15)
[2018-11-19] MEDS: SACUBITRIL/VALSARTAN 24 MG/26 MG TABLET PO SCH ×2 (09:16→17:45)
[2018-11-19] MEDS: SITAGLIPTIN PHOSPHATE 25 MG TABLET PO SCH (09:16)
[2018-11-19] MEDS: NORMAL SALINE 1000 ML 1,000 ML IV PRN ×2 (09:30→11:02)
--- NOTE | 2018-11-19 11:17 | PDOC PROGRESS REPORT ---
Subjective Progress Note for:: 11/19/18 Subjective:: Patient is currently doing well Denied any chest pain to than any shortness of the breath Patient's urine cultures positive for ESBL which is sensitive to the entrapartum Patient otherwise denied any abdominal pain no nausea no vomiting Reason For Visit: ACUTE KIDNEY INJURY, CHF Physical Exam Vital Signs: Temp Pulse Resp BP Pulse Ox 97.9 F 58 L 24 H 168/75 H 99 11/19/18 07:49 11/19/18 07:49 11/19/18 07:49 11/19/18 07:49 11/19/18 07:49 Intake & Output 11/18/18 11/19/18 11/20/18 06:59 06:59 06:59 Intake Total 2194 4047 1040 Output Total 3200 4350 Balance -1006 -303 1040 Weight 116.8 kg 118.1 kg General appearance: PRESENT: no acute distress, well-developed, well-nourished Head exam: PRESENT: atraumatic, normocephalic Eye exam: PRESENT: conjunctiva pink, EOMI, PERRLA. ABSENT: scleral icterus Ear exam: PRESENT: normal external ear exam Mouth exam: PRESENT: moist, tongue midline Neck exam: PRESENT: full ROM. ABSENT: carotid bruit, JVD, lymphadenopathy, thyromegaly Respiratory exam: PRESENT: clear to auscultation stephen Cardiovascular exam: PRESENT: RRR. ABSENT: diastolic murmur, rubs, systolic murmur Vascular exam: PRESENT: normal capillary refill GI/Abdominal exam: PRESENT: normal bowel sounds, soft. ABSENT: distended, guarding, mass, organolmegaly, rebound, tenderness Rectal exam: PRESENT: deferred Neurological exam: PRESENT: alert, awake, oriented to person, oriented to place, oriented to time, oriented to situation, CN II-XII grossly intact. ABSENT: motor sensory deficit Psychiatric exam: PRESENT: appropriate affect, normal mood. ABSENT: homicidal ideation, suicidal ideation Skin exam: PRESENT: dry, intact, warm. ABSENT: cyanosis, rash Results Laboratory Results: 11/19/18 06:15 11/19/18 06:15 11/19/18 11/19/18 06:15 06:15 WBC 5.7 RBC 4.23 Hgb 12.5 Hct 38.2 MCV 90 MCH 29.4 MCHC 32.6 RDW 17.0 H Plt Count 143 L Seg Neutrophils % 60.3 Lymphocytes % 25.6 Monocytes % 9.2 Eosinophils % 4.2 Basophils % 0.7 Absolute Neutrophils 3.4 Absolute Lymphocytes 1.5 Absolute Monocytes 0.5 Absolute Eosinophils 0.2 Absolute Basophils 0.0 Sodium 141.8 Potassium 4.8 Chloride 108 H Carbon Dioxide 27 Anion Gap 7 BUN 27 H Creatinine 1.77 H Est GFR ( Amer) 35 L Est GFR (Non-Af Amer) 29 L Glucose 85 Calcium 8.7 Total Bilirubin 0.5 AST 35 ALT 36 Alkaline Phosphatase 98 Total Protein 6.6 Albumin 3.4 L 11/17/18 06:08 Clean Catch Midstream Urine Culture - Final Escherichia Coli Esbl 11/16/18 11/16/18 11/17/18 22:20 22:20 02:04 Creatine Kinase 476 H CK-MB (CK-2) 5.67 H Troponin I 0.033 0.031 NT-Pro-B Natriuret Pep 3750 H 11/17/18 11/17/18 11/17/18 03:49 03:49 03:49 Creatine Kinase 391 H CK-MB (CK-2) 4.59 H Troponin I 0.034 NT-Pro-B Natriuret Pep 3430 H 11/17/18 11/17/18 11/17/18 12:51 12:51 21:30 Creatine Kinase 297 H 224 H CK-MB (CK-2) 4.05 Troponin I 0.022 NT-Pro-B Natriuret Pep 11/17/18 11/18/18 11/18/18 21:30 22:27 22:27 Creatine Kinase 148 H CK-MB (CK-2) 3.05 2.05 Troponin I 0.018 0.018 NT-Pro-B Natriuret Pep 11/19/18 11/19/18 06:15 06:15 Creatine Kinase 157 H CK-MB (CK-2) 2.21 Troponin I 0.014 NT-Pro-B Natriuret Pep Impressions: Chest X-Ray 11/16/18 15:24 IMPRESSION: Cardiomegaly with mild pulmonary edema. Renal Ultrasound 11/17/18 00:00 IMPRESSION: PROMINENT RENAL PELVIS IN BOTH KIDNEYS. THIS COULD INDICATE DEVELOPING HYDRONEPHROSIS. IF CLINICALLY INDICATED, CT OF THE ABDOMEN AND PELVIS MAY BE HELPFUL FOR MORE COMPLETE EVALUATION. Assessment & Plan - Diagnosis (1) Acute renal failure Qualifiers: Acute renal failure type: unspecified Qualified Code(s): N17.9 - Acute kidney failure, unspecified Is this a current diagnosis for this admission?: Yes Plan: Currently improving to IV fluid in the setting of the heart failure (2) Chronic kidney disease, stage 3 Is this a current diagnosis for this admission?: Yes Plan: Currently stable (3) Chronic systolic heart failure Is this a current diagnosis for this admission?: Yes Plan: Continues to Lasix (4) Coronary artery disease Qualifiers: Coronary Disease-Associated Artery/Lesion type: [place] artery [place] vs. transplanted heart: [place] heart Associated angina: without angina Qualified Code(s): I25.10 - Atherosclerotic heart disease of [place] coronary artery without angina pectoris Is this a current diagnosis for this admission?: Yes Plan: No acute coronary syndrome (5) T2DM (type 2 diabetes mellitus) Qualifiers: Diabetes mellitus care home insulin use: with vermin exterminator use Diabetes mellitus complication status: with neurologic complications Diabetes mellitus complication detail: with polyneuropathy Qualified Code(s): E11.42 - Type 2 diabetes mellitus with diabetic polyneuropathy; Z79.4 - long term care pharmacist (current) use of insulin Is this a current diagnosis for this admission?: Yes Plan: Continues a sliding scale (6) Urinary tract infection Qualifiers: Urinary tract infection type: site unspecified Hematuria presence: without hematuria Qualified Code(s): N39.0 - Urinary tract infection, site not specified Is this a current diagnosis for this admission?: Yes Plan: We will start the patient on entrpenam - Time Time Spent with patient: 15-24 minutes Medications reviewed and adjusted accordingly: Yes Anticipated discharge: Home Within: Other - Plan Summary Plan Summary: Change the antibiotic Reduce the IV fluid
[2018-11-19] MEDS: ERTAPENEM SODIUM 1 GM in NORMAL SALINE 50 ML IV SCH (13:12)
[2018-11-19 16:05] LABS: TROPONIN I < 0.012 ng/mL
[2018-11-20] MEDS: HYDROMORPHONE HCL INJ/PF 2 MG/ML AMPULE IV PRN ×5 (02:49→21:02)
[2018-11-20] MEDS: GABAPENTIN 300 MG CAPSULE PO SCH ×4 (05:05→23:41)
[2018-11-20] MEDS: HEPARIN SOD (PORCINE) 5,000 UNIT/ML 1 ML SYRINGE SUBCUT SCH ×3 (05:43→21:04)
[2018-11-20 06:23] LABS: ABSOLUTE EOSINOPHILS # (AUTO) 0.2 10^3/uL (0.0-0.6); ABSOLUTE LYMPHOCYTES (AUTO) 1.4 10^3/uL (0.5-4.7); ABSOLUTE MONOCYTES (AUTO) 0.5 10^3/uL (0.1-1.4); ABSOLUTE NEUT (AUTO) 3.6 10^3/uL (1.7-8.2); BASOPHILS % (AUTO) 0.6 % (0-2); EOSINOPHILS % (AUTO) 3.7 % (0-6); HEMATOCRIT 37.7 % (36.0-47.0); HEMOGLOBIN 12.5 g/dL (12.0-15.5); LYMPHOCYTES % (AUTO) 23.9 % (13-45); MEAN CORPUSCULAR HEMOGLOBIN 29.5 pg (27.0-33.4); MEAN CORPUSCULAR HGB CONC 33.1 g/dL (32.0-36.0); MEAN CORPUSCULAR VOLUME 89 fl (80-97); MONOCYTES % (AUTO) 9.2 % (3-13); PLATELET COUNT 146 10^3/uL (150-450); RED BLOOD COUNT 4.24 10^6/uL (3.72-5.28); RED CELL DISTRIBUTION WIDTH 16.9 % (11.5-14.0); SEGMENTED NEUTROPHILS % (AUTO) 62.6 % (42-78); TOTAL CELLS COUNTED % (AUTO) 100 %; WHITE BLOOD COUNT 5.7 10^3/uL (4.0-10.5)
[2018-11-20 06:45] LABS: ALANINE AMINOTRANSFERASE 45 U/L (9-52); ALBUMIN 3.4 g/dL (3.5-5.0); ALKALINE PHOSPHATASE 97 U/L (38-126); ANION GAP 6 (5-19); ASPARTATE AMINO TRANSFERASE 36 U/L (14-36); BILIRUBIN,DIRECT 0.2 mg/dL (0.0-0.4); BILIRUBIN,TOTAL 0.4 mg/dL (0.2-1.3); BLOOD UREA NITROGEN 20 mg/dL (7-20); CALCIUM 8.6 mg/dL (8.4-10.2); CARBON DIOXIDE 32 mmol/L (22-30); CHLORIDE 105 mmol/L (98-107); GLUCOSE 88 mg/dL (75-110); POTASSIUM 4.3 mmol/L (3.6-5.0); SODIUM 142.5 mmol/L (137-145); TOTAL PROTEIN 6.8 g/dL (6.3-8.2)
[2018-11-20] MEDS: NORMAL SALINE 1000 ML 1,000 ML IV PRN (06:47)
[2018-11-20] MEDS ORDERED: ERGOCALCIFEROL (VITAMIN D2) 50000 UNIT (1.25 MG) CAPSULE PO SCH (10:00)
--- NOTE | 2018-11-20 10:11 | PDOC PROGRESS REPORT ---
Subjective Progress Note for:: 11/20/18 Subjective:: Patient is currently doing well Denied any chest pain to than any shortness of the breath Patient's urine cultures positive for ESBL which is sensitive to the entrapartum Patient otherwise denied any abdominal pain no nausea no vomiting Reason For Visit: ACUTE KIDNEY INJURY, CHF Physical Exam Vital Signs: Temp Pulse Resp BP Pulse Ox 98.1 F 54 L 20 150/101 H 97 11/20/18 07:51 11/20/18 07:51 11/20/18 07:51 11/20/18 07:51 11/20/18 07:51 Intake & Output 11/19/18 11/20/18 11/21/18 06:59 06:59 06:59 Intake Total 4047 3412 Output Total 4350 3850 Balance -303 -438 Weight 118.1 kg General appearance: PRESENT: no acute distress, well-developed, well-nourished Head exam: PRESENT: atraumatic, normocephalic Eye exam: PRESENT: conjunctiva pink, EOMI, PERRLA. ABSENT: scleral icterus Ear exam: PRESENT: normal external ear exam Mouth exam: PRESENT: moist, tongue midline Neck exam: PRESENT: full ROM. ABSENT: carotid bruit, JVD, lymphadenopathy, thyromegaly Respiratory exam: PRESENT: clear to auscultation stephen Cardiovascular exam: PRESENT: RRR. ABSENT: diastolic murmur, rubs, systolic murmur Vascular exam: PRESENT: normal capillary refill GI/Abdominal exam: PRESENT: normal bowel sounds, soft. ABSENT: distended, guarding, mass, organolmegaly, rebound, tenderness Rectal exam: PRESENT: deferred Extremities exam: ABSENT: pedal edema Neurological exam: PRESENT: alert, awake, oriented to person, oriented to place, oriented to time, oriented to situation, CN II-XII grossly intact. ABSENT: motor sensory deficit Psychiatric exam: PRESENT: appropriate affect, normal mood. ABSENT: homicidal ideation, suicidal ideation Skin exam: PRESENT: dry, intact, warm. ABSENT: cyanosis, rash Results Laboratory Results: 11/20/18 06:11 11/20/18 06:11 11/20/18 11/20/18 06:11 06:11 WBC 5.7 RBC 4.24 Hgb 12.5 Hct 37.7 MCV 89 MCH 29.5 MCHC 33.1 RDW 16.9 H Plt Count 146 L Seg Neutrophils % 62.6 Lymphocytes % 23.9 Monocytes % 9.2 Eosinophils % 3.7 Basophils % 0.6 Absolute Neutrophils 3.6 Absolute Lymphocytes 1.4 Absolute Monocytes 0.5 Absolute Eosinophils 0.2 Absolute Basophils 0.0 Sodium 142.5 Potassium 4.3 Chloride 105 Carbon Dioxide 32 H Anion Gap 6 BUN 20 Creatinine 1.47 H Est GFR ( Amer) 44 L Est GFR (Non-Af Amer) 36 L Glucose 88 Calcium 8.6 Total Bilirubin 0.4 AST 36 ALT 45 Alkaline Phosphatase 97 Total Protein 6.8 Albumin 3.4 L 11/17/18 06:08 Clean Catch Midstream Urine Culture - Final Escherichia Coli Esbl 11/16/18 11/16/18 11/17/18 22:20 22:20 02:04 Creatine Kinase 476 H CK-MB (CK-2) 5.67 H Troponin I 0.033 0.031 NT-Pro-B Natriuret Pep 3750 H 11/17/18 11/17/18 11/17/18 03:49 03:49 03:49 Creatine Kinase 391 H CK-MB (CK-2) 4.59 H Troponin I 0.034 NT-Pro-B Natriuret Pep 3430 H 11/17/18 11/17/18 11/17/18 12:51 12:51 21:30 Creatine Kinase 297 H 224 H CK-MB (CK-2) 4.05 Troponin I 0.022 NT-Pro-B Natriuret Pep 11/17/18 11/18/18 11/18/18 21:30 22:27 22:27 Creatine Kinase 148 H CK-MB (CK-2) 3.05 2.05 Troponin I 0.018 0.018 NT-Pro-B Natriuret Pep 11/19/18 11/19/18 11/19/18 06:15 06:15 14:59 Creatine Kinase 157 H 144 H CK-MB (CK-2) 2.21 Troponin I 0.014 NT-Pro-B Natriuret Pep 11/19/18 14:59 Creatine Kinase CK-MB (CK-2) 2.30 Troponin I < 0.012 NT-Pro-B Natriuret Pep Impressions: Chest X-Ray 11/16/18 15:24 IMPRESSION: Cardiomegaly with mild pulmonary edema. Renal Ultrasound 11/17/18 00:00 IMPRESSION: PROMINENT RENAL PELVIS IN BOTH KIDNEYS. THIS COULD INDICATE DEVELOPING HYDRONEPHROSIS. IF CLINICALLY INDICATED, CT OF THE ABDOMEN AND PELVIS MAY BE HELPFUL FOR MORE COMPLETE EVALUATION. Assessment & Plan - Diagnosis (1) Acute renal failure Qualifiers: Acute renal failure type: unspecified Qualified Code(s): N17.9 - Acute kidney failure, unspecified Is this a current diagnosis for this admission?: Yes Plan: Currently improving to IV fluid in the setting of the heart failure (2) Chronic kidney disease, stage 3 Is this a current diagnosis for this admission?: Yes Plan: Currently stable (3) Chronic systolic heart failure Is this a current diagnosis for this admission?: Yes Plan: Continues to Lasix (4) Coronary artery disease Qualifiers: Coronary Disease-Associated Artery/Lesion type: [place] artery [place] vs. transplanted heart: [place] heart Associated angina: without angina Qualified Code(s): I25.10 - Atherosclerotic heart disease of [place] coronary artery without angina pectoris Is this a current diagnosis for this admission?: Yes Plan: No acute coronary syndrome (5) T2DM (type 2 diabetes mellitus) Qualifiers: Diabetes mellitus terminal carman insulin use: with terminal carman use Diabetes mellitus complication status: with neurologic complications Diabetes mellitus complication detail: with polyneuropathy Qualified Code(s): E11.42 - Type 2 diabetes mellitus with diabetic polyneuropathy; Z79.4 - jail (current) use of insulin Is this a current diagnosis for this admission?: Yes Plan: Continues a sliding scale (6) Urinary tract infection Qualifiers: Urinary tract infection type: site unspecified Hematuria presence: without hematuria Qualified Code(s): N39.0 - Urinary tract infection, site not specified Is this a current diagnosis for this admission?: Yes - Time Time Spent with patient: 15-24 minutes Medications reviewed and adjusted accordingly: Yes Anticipated discharge: Other Within: Other - Plan Summary Plan Summary: Currently doing well
[2018-11-20] MEDS: SODIUM BICARBONATE 650 MG TABLET PO SCH ×3 (10:14→17:42)
[2018-11-20] MEDS: PIOGLITAZONE HCL 30 MG TABLET PO SCH (10:14)
[2018-11-20] MEDS: MAGNESIUM OXIDE 400 MG TABLET PO SCH (10:14)
[2018-11-20] MEDS: GLIPIZIDE XL 5 MG TAB.ER.24 PO SCH (10:14)
[2018-11-20] MEDS: METOPROLOL SUCCINATE 50 MG TAB.SR.24H PO SCH (10:14)
[2018-11-20] MEDS: FUROSEMIDE INJ/PF 40 MG/4 ML SDV IV SCH (10:15)
[2018-11-20] MEDS: SACUBITRIL/VALSARTAN 24 MG/26 MG TABLET PO SCH ×2 (10:15→17:42)
[2018-11-20] MEDS: INSULIN LISPRO 100 UNIT/ML 3 ML VIAL SUBCUT SCH ×4 (10:15→22:05)
[2018-11-20] MEDS: SITAGLIPTIN PHOSPHATE 25 MG TABLET PO SCH (10:15)
[2018-11-20] MEDS: ERTAPENEM SODIUM 1 GM in NORMAL SALINE 50 ML IV SCH (12:47)
[2018-11-20] MEDS: OXYCODONE HCL IR 5 MG TABLET PO PRN ×2 (13:54→23:41)
[2018-11-20] MEDS: FLUTICASONE NASAL SPRAY 50 MCG/SPRY 120 SPRAY/16 GM NASL SCH (21:03)
[2018-11-21] MEDS: HYDROMORPHONE HCL INJ/PF 2 MG/ML AMPULE IV PRN ×5 (02:21→22:10)
[2018-11-21] MEDS: NORMAL SALINE 1000 ML 1,000 ML IV PRN ×2 (02:23→23:06)
[2018-11-21 06:37] LABS: ABSOLUTE EOSINOPHILS # (AUTO) 0.3 10^3/uL (0.0-0.6); ABSOLUTE LYMPHOCYTES (AUTO) 1.7 10^3/uL (0.5-4.7); ABSOLUTE MONOCYTES (AUTO) 0.5 10^3/uL (0.1-1.4); ABSOLUTE NEUT (AUTO) 3.9 10^3/uL (1.7-8.2); BASOPHILS % (AUTO) 0.6 % (0-2); EOSINOPHILS % (AUTO) 4.3 % (0-6); HEMATOCRIT 38.8 % (36.0-47.0); HEMOGLOBIN 12.8 g/dL (12.0-15.5); LYMPHOCYTES % (AUTO) 26.5 % (13-45); MEAN CORPUSCULAR HEMOGLOBIN 29.4 pg (27.0-33.4); MEAN CORPUSCULAR HGB CONC 33.1 g/dL (32.0-36.0); MEAN CORPUSCULAR VOLUME 89 fl (80-97); MONOCYTES % (AUTO) 8.4 % (3-13); PLATELET COUNT 147 10^3/uL (150-450); RED BLOOD COUNT 4.36 10^6/uL (3.72-5.28); RED CELL DISTRIBUTION WIDTH 16.9 % (11.5-14.0); SEGMENTED NEUTROPHILS % (AUTO) 60.2 % (42-78); TOTAL CELLS COUNTED % (AUTO) 100 %; WHITE BLOOD COUNT 6.5 10^3/uL (4.0-10.5)
[2018-11-21] MEDS: GABAPENTIN 300 MG CAPSULE PO SCH ×4 (06:38→23:06)
[2018-11-21] MEDS: HEPARIN SOD (PORCINE) 5,000 UNIT/ML 1 ML SYRINGE SUBCUT SCH ×3 (06:39→22:10)
[2018-11-21 07:42] LABS: ANION GAP 6 (5-19); BLOOD UREA NITROGEN 21 mg/dL (7-20); CALCIUM 8.5 mg/dL (8.4-10.2); CARBON DIOXIDE 33 mmol/L (22-30); CHLORIDE 102 mmol/L (98-107); GLUCOSE 97 mg/dL (75-110); POTASSIUM 4.1 mmol/L (3.6-5.0); SODIUM 140.8 mmol/L (137-145)
[2018-11-21] MEDS: INSULIN LISPRO 100 UNIT/ML 3 ML VIAL SUBCUT SCH ×4 (09:45→22:11)
[2018-11-21] MEDS: PIOGLITAZONE HCL 30 MG TABLET PO SCH (09:58)
[2018-11-21] MEDS: SACUBITRIL/VALSARTAN 24 MG/26 MG TABLET PO SCH ×2 (09:58→17:40)
[2018-11-21] MEDS: SITAGLIPTIN PHOSPHATE 25 MG TABLET PO SCH (09:58)
[2018-11-21] MEDS: METOPROLOL SUCCINATE 50 MG TAB.SR.24H PO SCH (09:58)
[2018-11-21] MEDS: OXYCODONE HCL IR 5 MG TABLET PO PRN (09:58)
[2018-11-21] MEDS: GLIPIZIDE XL 5 MG TAB.ER.24 PO SCH (09:58)
[2018-11-21] MEDS: FUROSEMIDE INJ/PF 40 MG/4 ML SDV IV SCH (09:58)
[2018-11-21] MEDS: SODIUM BICARBONATE 650 MG TABLET PO SCH ×3 (09:58→17:40)
[2018-11-21] MEDS: MAGNESIUM OXIDE 400 MG TABLET PO SCH (09:58)
[2018-11-21] MEDS: FLUTICASONE NASAL SPRAY 50 MCG/SPRY 120 SPRAY/16 GM NASL SCH ×2 (09:59→22:10)
[2018-11-21] MEDS: ERTAPENEM SODIUM 1 GM in NORMAL SALINE 50 ML IV SCH (13:19)
--- NOTE | 2018-11-21 19:41 | PDOC PROGRESS REPORT ---
Subjective Progress Note for:: 11/21/18 Subjective:: Patient was seen by the bedside, the urine culture grew E. coli ESBL, presently on ertapenem intravenously. She has a history of CAD with stent placement, the 2D echo that was done showed EF of left ventricle of 45%, she also has mild pulmonary edema suggesting acute systolic heart failure, a pharmacologic stress will be ordered to rule out inducible ischemia Reason For Visit: ACUTE KIDNEY INJURY, CHF Physical Exam Vital Signs: Temp Pulse Resp BP Pulse Ox 98.3 F 83 18 157/81 H 99 11/21/18 16:20 11/21/18 16:20 11/21/18 16:20 11/21/18 16:20 11/21/18 16:20 Intake & Output 11/20/18 11/21/18 11/22/18 06:59 06:59 06:59 Intake Total 3412 2481 1055 Output Total 3850 3550 1900 Balance -438 -1069 -845 Weight 115.9 kg General appearance: PRESENT: no acute distress Eye exam: PRESENT: PERRLA Respiratory exam: PRESENT: crackles Cardiovascular exam: PRESENT: +S1, +S2 GI/Abdominal exam: PRESENT: soft Neurological exam: PRESENT: alert Results Laboratory Results: 11/21/18 06:10 11/21/18 06:10 11/21/18 11/21/18 06:10 06:10 WBC 6.5 RBC 4.36 Hgb 12.8 Hct 38.8 MCV 89 MCH 29.4 MCHC 33.1 RDW 16.9 H Plt Count 147 L Seg Neutrophils % 60.2 Lymphocytes % 26.5 Monocytes % 8.4 Eosinophils % 4.3 Basophils % 0.6 Absolute Neutrophils 3.9 Absolute Lymphocytes 1.7 Absolute Monocytes 0.5 Absolute Eosinophils 0.3 Absolute Basophils 0.0 Sodium 140.8 Potassium 4.1 Chloride 102 Carbon Dioxide 33 H Anion Gap 6 BUN 21 H Creatinine 1.69 H Est GFR ( Amer) 37 L Est GFR (Non-Af Amer) 31 L Glucose 97 Calcium 8.5 11/16/18 11/16/18 11/17/18 22:20 22:20 02:04 Creatine Kinase 476 H CK-MB (CK-2) 5.67 H Troponin I 0.033 0.031 NT-Pro-B Natriuret Pep 3750 H 03/11/17/18 11/17/18 03:49 03:49 03:49 Creatine Kinase 391 H CK-MB (CK-2) 4.59 H Troponin I 0.034 NT-Pro-B Natriuret Pep 3430 H 11/17/18 11/17/18 11/17/18 12:51 12:51 21:30 Creatine Kinase 297 H 224 H CK-MB (CK-2) 4.05 Troponin I 0.022 NT-Pro-B Natriuret Pep 11/17/18 11/18/18 11/18/18 21:30 22:27 22:27 Creatine Kinase 148 H CK-MB (CK-2) 3.05 2.05 Troponin I 0.018 0.018 NT-Pro-B Natriuret Pep 11/19/18 11/19/18 11/19/18 06:15 06:15 14:59 Creatine Kinase 157 H 144 H CK-MB (CK-2) 2.21 Troponin I 0.014 NT-Pro-B Natriuret Pep 11/19/18 14:59 Creatine Kinase CK-MB (CK-2) 2.30 Troponin I < 0.012 NT-Pro-B Natriuret Pep Impressions: Chest X-Ray 11/16/18 15:24 IMPRESSION: Cardiomegaly with mild pulmonary edema. Renal Ultrasound 11/17/18 00:00 IMPRESSION: PROMINENT RENAL PELVIS IN BOTH KIDNEYS. THIS COULD INDICATE DEVELOPING HYDRONEPHROSIS. IF CLINICALLY INDICATED, CT OF THE ABDOMEN AND PELVIS MAY BE HELPFUL FOR MORE COMPLETE EVALUATION. Assessment & Plan - Diagnosis (1) Acute kidney injury Is this a current diagnosis for this admission?: Yes (2) Chronic systolic heart failure Is this a current diagnosis for this admission?: Yes (3) Morbid obesity Is this a current diagnosis for this admission?: Yes (4) Chronic kidney disease, stage 3 Is this a current diagnosis for this admission?: Yes (5) T2DM (type 2 diabetes mellitus) Qualifiers: Diabetes mellitus half-way insulin use: with termite control service representative use Diabetes mellitus complication status: with neurologic complications Diabetes mellitus complication detail: with polyneuropathy Qualified Code(s): E11.42 - Type 2 diabetes mellitus with diabetic polyneuropathy; Z79.4 - termite technician (current) use of insulin Is this a current diagnosis for this admission?: Yes (6) Coronary artery disease Qualifiers: Coronary Disease-Associated Artery/Lesion type: [place] artery [place] vs. transplanted heart: [place] heart Associated angina: without angina Qualified Code(s): I25.10 - Atherosclerotic heart disease of [place] coronary artery without angina pectoris Is this a current diagnosis for this admission?: Yes (7) Urinary tract infection Qualifiers: Urinary tract infection type: site unspecified Hematuria presence: without hematuria Qualified Code(s): N39.0 - Urinary tract infection, site not specified Is this a current diagnosis for this admission?: Yes (8) Acute on chronic systolic heart failure Is this a current diagnosis for this admission?: Yes Plan: This was present on admission (9) UTI due to extended-spectrum beta lactamase (ESBL) producing Escherichia coli Is this a current diagnosis for this admission?: Yes Plan: continue intravenous ertapenem
[2018-11-22] MEDS: HEPARIN SOD (PORCINE) 5,000 UNIT/ML 1 ML SYRINGE SUBCUT SCH ×3 (05:14→22:19)
[2018-11-22] MEDS: GABAPENTIN 300 MG CAPSULE PO SCH ×3 (05:14→20:25)
[2018-11-22] MEDS: HYDROMORPHONE HCL INJ/PF 2 MG/ML AMPULE IV PRN ×4 (06:29→20:27)
[2018-11-22 07:05] LABS: ANION GAP 7 (5-19); BLOOD UREA NITROGEN 22 mg/dL (7-20); CALCIUM 8.2 mg/dL (8.4-10.2); CARBON DIOXIDE 33 mmol/L (22-30); CHLORIDE 102 mmol/L (98-107); GLUCOSE 90 mg/dL (75-110); POTASSIUM 3.9 mmol/L (3.6-5.0); SODIUM 141.8 mmol/L (137-145)
[2018-11-22] MEDS: METOPROLOL SUCCINATE 50 MG TAB.SR.24H PO SCH (11:54)
[2018-11-22] MEDS: LOPERAMIDE HCL 2 MG CAPSULE PO PRN ×2 (11:55→20:32)
[2018-11-22] MEDS: SODIUM BICARBONATE 650 MG TABLET PO SCH ×3 (11:55→20:27)
[2018-11-22] MEDS: GLIPIZIDE XL 5 MG TAB.ER.24 PO SCH (11:55)
[2018-11-22] MEDS: FUROSEMIDE INJ/PF 40 MG/4 ML SDV IV SCH (11:56)
[2018-11-22] MEDS: PIOGLITAZONE HCL 30 MG TABLET PO SCH (11:56)
[2018-11-22] MEDS: MAGNESIUM OXIDE 400 MG TABLET PO SCH (11:56)
[2018-11-22] MEDS: SACUBITRIL/VALSARTAN 24 MG/26 MG TABLET PO SCH ×2 (11:58→20:29)
[2018-11-22] MEDS: FLUTICASONE NASAL SPRAY 50 MCG/SPRY 120 SPRAY/16 GM NASL SCH ×2 (11:58→22:22)
[2018-11-22] MEDS: SITAGLIPTIN PHOSPHATE 25 MG TABLET PO SCH (11:58)
[2018-11-22] MEDS: ERTAPENEM SODIUM 1 GM in NORMAL SALINE 50 ML IV SCH (12:00)
[2018-11-22] MEDS: INSULIN LISPRO 100 UNIT/ML 3 ML VIAL SUBCUT SCH ×3 (12:02→22:15)
[2018-11-22] MEDS ORDERED: REGADENOSON INJ 0.4 MG/5 ML DISP.SYRIN IV ONE (12:50)
[2018-11-22] MEDS: NORMAL SALINE 1000 ML 1,000 ML IV PRN (20:29)
[2018-11-22] MEDS ORDERED: NYSTATIN CREAM 15 GM TP ONE (22:30)
--- NOTE | 2018-11-22 22:57 | PDOC PROGRESS REPORT ---
Subjective Progress Note for:: 11/22/18 Subjective:: Patient seen by the bedside Reason For Visit: ACUTE KIDNEY INJURY, CHF Physical Exam Vital Signs: Temp Pulse Resp BP Pulse Ox 97.7 F 63 20 146/83 H 95 11/22/18 16:25 11/22/18 16:25 11/22/18 16:25 11/22/18 16:25 11/22/18 16:25 Intake & Output 11/21/18 11/22/18 11/23/18 06:59 06:59 06:59 Intake Total 2481 2979 1828 Output Total 3550 4100 750 Balance -1069 -1121 1078 Weight 115.9 kg 112.9 kg General appearance: PRESENT: no acute distress Eye exam: PRESENT: PERRLA Respiratory exam: PRESENT: clear to auscultation stephen Cardiovascular exam: PRESENT: +S1, +S2 GI/Abdominal exam: PRESENT: soft Neurological exam: PRESENT: alert Results Laboratory Results: 11/21/18 06:10 11/22/18 06:22 11/22/18 06:22 Sodium 141.8 Potassium 3.9 Chloride 102 Carbon Dioxide 33 H Anion Gap 7 BUN 22 H Creatinine 1.72 H Est GFR ( Amer) 36 L Est GFR (Non-Af Amer) 30 L Glucose 90 Calcium 8.2 L 11/16/18 11/16/18 11/17/18 22:20 22:20 02:04 Creatine Kinase 476 H CK-MB (CK-2) 5.67 H Troponin I 0.033 0.031 NT-Pro-B Natriuret Pep 3750 H 11/17/18 11/17/18 11/17/18 03:49 03:49 03:49 Creatine Kinase 391 H CK-MB (CK-2) 4.59 H Troponin I 0.034 NT-Pro-B Natriuret Pep 3430 H 11/17/18 11/17/18 11/17/18 12:51 12:51 21:30 Creatine Kinase 297 H 224 H CK-MB (CK-2) 4.05 Troponin I 0.022 NT-Pro-B Natriuret Pep 11/17/18 11/18/18 11/18/18 21:30 22:27 22:27 Creatine Kinase 148 H CK-MB (CK-2) 3.05 2.05 Troponin I 0.018 0.018 NT-Pro-B Natriuret Pep 11/19/18 11/19/18 11/19/18 06:15 06:15 14:59 Creatine Kinase 157 H 144 H CK-MB (CK-2) 2.21 Troponin I 0.014 NT-Pro-B Natriuret Pep 11/19/18 14:59 Creatine Kinase CK-MB (CK-2) 2.30 Troponin I < 0.012 NT-Pro-B Natriuret Pep Impressions: Chest X-Ray 11/16/18 15:24 IMPRESSION: Cardiomegaly with mild pulmonary edema. Renal Ultrasound 11/17/18 00:00 IMPRESSION: PROMINENT RENAL PELVIS IN BOTH KIDNEYS. THIS COULD INDICATE DEVELOPING HYDRONEPHROSIS. IF CLINICALLY INDICATED, CT OF THE ABDOMEN AND PELVIS MAY BE HELPFUL FOR MORE COMPLETE EVALUATION. Assessment & Plan - Diagnosis (1) Acute kidney injury Is this a current diagnosis for this admission?: Yes (2) Chronic systolic heart failure Is this a current diagnosis for this admission?: Yes Plan: Increase the dosage of Entresto (3) Morbid obesity Is this a current diagnosis for this admission?: Yes (4) Chronic kidney disease, stage 3 Is this a current diagnosis for this admission?: Yes (5) T2DM (type 2 diabetes mellitus) Qualifiers: Diabetes mellitus watermaster insulin use: with fpc use Diabetes mellitus complication status: with neurologic complications Diabetes mellitus complication detail: with polyneuropathy Qualified Code(s): E11.42 - Type 2 diabetes mellitus with diabetic polyneuropathy; Z79.4 - custodial (current) use of insulin Is this a current diagnosis for this admission?: Yes (6) Coronary artery disease Qualifiers: Coronary Disease-Associated Artery/Lesion type: [place] artery [place] vs. transplanted heart: [place] heart Associated angina: without angina Qualified Code(s): I25.10 - Atherosclerotic heart disease of [place] coronary artery without angina pectoris Is this a current diagnosis for this admission?: Yes (7) Urinary tract infection Qualifiers: Urinary tract infection type: site unspecified Hematuria presence: without hematuria Qualified Code(s): N39.0 - Urinary tract infection, site not specified Is this a current diagnosis for this admission?: Yes (8) Acute on chronic systolic heart failure Is this a current diagnosis for this admission?: Yes (9) UTI due to extended-spectrum beta lactamase (ESBL) producing Escherichia coli Is this a current diagnosis for this admission?: Yes Plan: Continue intravenous ertapenem (10) Vulvovaginal candidiasis Is this a current diagnosis for this admission?: Yes Plan: Start nystatin topical application and Diflucan
--- NOTE | 2018-11-22 23:10 | DRAGON STRESS TEST REPORT ---
Intravenous Lexiscan Cardiolite stress test using single photon emmision computerized tomography. Date of procedure: 11/22/2018. Ordering Provider: Dr. Barakat. Patient's status: In Patient. Indication: Shortness of breath in a patient with coronary artery disease. Coronary risk factors: Age, diabetes mellitus, and hypertension. Resting EKG: Sinus Rhythm. Minor diffuse nonspecific ST-T changes Stress EKG:[No changes of ischemia. The patient had no chest pain or discomfort, and there were no arrhythmias seen. Reason for termination: Protocol. Conclusions: Normal EKG and hemodynamic response to IV Lexiscan. Nuclear data: At rest the patient was given 15.99 millicuries of technetium 99m sestamibi injected intravenously. As per protocol rest non gated SPECT images were obtained. Subsequently the patient was given intravenous Lexiscan at a dose of 0.4 mg in 5 mL intravenously, followed by flush with normal saline. Subsequently the stress dose of 47.6 millicuries of technetium 99m sestamibi was injected intravenously. As per protocol stress gated images were obtained. Nuclear interpretation: Review of images showed that this is a very poor quality study due to the patient's obesity, and significant breast and bowel attenuation artifactS. In spite of this there seems to be a perfusion defect involving the basal inferior wall in both the rest and stress images, with this area having decreased motion contraction and thickening by gated study. This is prior myocardial infarction. The rest of the segments of the myocardium had normal perfusion at rest, and normal perfusion post stress with IV Lexiscan. The rest of the segments of the myocardium had normal thickening by gated study. The left ventricle appears to be dilated, with global hypokinesis which is at least moderate. T. I D. ratio was upper normal at 1.20. There is no transient ischemic dilatation of the left ventricle. Computer read rest, and stress left ventricular ejection fraction were 43 %, and 17 %, respectively. Visually both the stress and rest ejection Fractions were decreased moderately at around 40%. The scintigraphic imaging is not reliable for accurate LV ejection fraction measurement Conclusion: 1. There is no scintigraphic evidence of Lexiscan induced myocardial ischemia. 2. There is scintigraphic evidence of myocardial infarction/scar involving the basal inferior wall. 3. There seems to be ischemic cardiomyopathy with a dilated left ventricle, with ejection fraction which is moderately reduced at 40%.. Recommendations: 1.Aggressive risk factor modification, and treating the underlying co- morbidities. Recommend aggressive treatment of coronary artery disease, and cardiomyopathy. 2. Would recommend getting an echo for LV ejection fraction correlation. The above were discussed with Dr. Barakat by me. ALMA
[2018-11-22] MEDS ORDERED: FLUCONAZOLE 100 MG TABLET PO ONE (23:15)
[2018-11-23] MEDS: GABAPENTIN 300 MG CAPSULE PO SCH ×3 (00:39→12:13)
[2018-11-23] MEDS: HYDROMORPHONE HCL INJ/PF 2 MG/ML AMPULE IV PRN ×4 (00:40→14:41)
[2018-11-23] MEDS ORDERED: NYSTATIN CREAM 15 GM ONE (02:08)
[2018-11-23] MEDS ORDERED: FLUCONAZOLE 100 MG TABLET PO ONE (02:15)
[2018-11-23] MEDS: HEPARIN SOD (PORCINE) 5,000 UNIT/ML 1 ML SYRINGE SUBCUT SCH ×2 (05:02→14:42)
[2018-11-23] MEDS: NORMAL SALINE 1000 ML 1,000 ML IV PRN (05:13)
[2018-11-23 05:41] LABS: ANION GAP 8 (5-19); BLOOD UREA NITROGEN 22 mg/dL (7-20); CALCIUM 8.7 mg/dL (8.4-10.2); CARBON DIOXIDE 31 mmol/L (22-30); CHLORIDE 102 mmol/L (98-107); SODIUM 141.1 mmol/L (137-145)
[2018-11-23 05:49] LABS: GLUCOSE 60 mg/dL (75-110)
[2018-11-23] MEDS: INSULIN LISPRO 100 UNIT/ML 3 ML VIAL SUBCUT SCH ×3 (09:11→16:03)
[2018-11-23] MEDS: MAGNESIUM OXIDE 400 MG TABLET PO SCH (09:37)
[2018-11-23] MEDS: GLIPIZIDE XL 5 MG TAB.ER.24 PO SCH (09:37)
[2018-11-23] MEDS: METOPROLOL SUCCINATE 50 MG TAB.SR.24H PO SCH (09:37)
[2018-11-23] MEDS: PIOGLITAZONE HCL 30 MG TABLET PO SCH (09:38)
[2018-11-23] MEDS: SODIUM BICARBONATE 650 MG TABLET PO SCH ×2 (09:38→14:41)
[2018-11-23] MEDS: FUROSEMIDE INJ/PF 40 MG/4 ML SDV IV SCH (09:39)
[2018-11-23] MEDS: FLUTICASONE NASAL SPRAY 50 MCG/SPRY 120 SPRAY/16 GM NASL SCH (09:40)
[2018-11-23] MEDS: SITAGLIPTIN PHOSPHATE 25 MG TABLET PO SCH (09:43)
[2018-11-23] MEDS ORDERED: FLUCONAZOLE 100 MG TABLET PO SCH (10:00)
[2018-11-23] MEDS ORDERED: SACUBITRIL/VALSARTAN 49 MG/51 MG TABLET PO SCH (10:00)
[2018-11-23] MEDS ORDERED: NYSTATIN CREAM 15 GM TP SCH (10:00)
[2018-11-23] MEDS: ERTAPENEM SODIUM 1 GM in NORMAL SALINE 50 ML IV SCH (12:11)
--- NOTE | 2018-11-23 15:29 | PDOC DISCHARGE SUMMARY ---
General - Admit/Disc Date/PCP Admission Date/Primary Care Provider: 11/17/18 02:51 LISA MATA MD Discharge Date: 11/23/18 - Discharge Diagnosis (1) Acute kidney injury Is this a current diagnosis for this admission?: Yes (2) Chronic systolic heart failure Is this a current diagnosis for this admission?: Yes (3) Morbid obesity Is this a current diagnosis for this admission?: Yes (4) Chronic kidney disease, stage 3 Is this a current diagnosis for this admission?: Yes (5) T2DM (type 2 diabetes mellitus) Is this a current diagnosis for this admission?: Yes (6) Coronary artery disease Is this a current diagnosis for this admission?: Yes (7) Acute on chronic systolic heart failure Is this a current diagnosis for this admission?: Yes (8) UTI due to extended-spectrum beta lactamase (ESBL) producing Escherichia coli Is this a current diagnosis for this admission?: Yes (9) Vulvovaginal candidiasis Is this a current diagnosis for this admission?: Yes - Additional Information Resuscitation Status: Full Code Discharge Diet: Diabetic Discharge Activity: Activity As Tolerated, Balance Activity w/Rest, Weigh Daily Prescriptions: Calcitriol 0.5 mcg PO DAILY #90 capsule Fluconazole [Diflucan 100 mg Tablet] 100 mg PO DAILY #5 tablet Nystatin [Mycostatin Cream 15 gm] 1 applic TP BID #5 tube Sacubitril/Valsartan [Entresto 49 mg/51 mg Tablet] 1 tab PO BID #60 tablet Home Medications: Albuterol Sulfate [Proventil Hfa] 2 puff IH Q4HP PRN 10/14/17 Ergocalciferol (Vitamin D2) [Vitamin D2] 50,000 unit PO KYLE@1000 10/14/17 Gabapentin [Neurontin] 600 mg PO QID 10/14/17 Glipizide [Glipizide Xl] 5 mg PO DAILY 10/14/17 Linagliptin [Tradjenta] 5 mg PO DAILY 10/14/17 Loperamide HCl [Loperamide] 4 mg PO ASDIR PRN 10/14/17 Magnesium Oxide [Mag-Ox 400 mg Tablet] 400 mg PO DAILY 10/14/17 Oxycodone HCl [Oxy-Ir 5 mg Tablet] 10 mg PO TIDP PRN 10/14/17 Pioglitazone HCl [Actos] 30 mg PO DAILY 10/14/17 Sodium Bicarbonate [Sodium Bicarbonate 650 mg Tablet] 1,300 mg PO TID 10/14/17 Metoprolol Succinate [Toprol Xl] 200 mg PO DAILY 11/17/18 Calcitriol 0.5 mcg PO DAILY #90 capsule 11/23/18 Fluconazole [Diflucan 100 mg Tablet] 100 mg PO DAILY #5 tablet 11/23/18 Nystatin [Mycostatin Cream 15 gm] 1 applic TP BID #5 tube 11/23/18 Sacubitril/Valsartan [Entresto 49 mg/51 mg Tablet] 1 tab PO BID #60 tablet 11/23/18 History of Present Illness History of Present Illness: RANDEE VELÁSQUEZ is a 63 year old female, She came to the emergency room earlier this morning for evaluation of cough, shortness of breath, in the emergency room she was found to have acute kidney injury the serum creatinine was 4, the today state that was done also showed pulmonary vascular congestion. A 2D echo was done this afternoon because of concern for CHF, the BNP was elevated but this is difficult to interpret in the setting of acute kidney injury. The 2D echo demonstrated moderately dilated left ventricle normal wall thickness the estimated ejection fraction of left ventricle was 40%. Doppler measurement suggests impaired left ventricle relaxation which is consistent with grade 1 diastolic dysfunction, the left atrium is dilated no evidence of mitral valve prolapse.She has a high output ileostomy bag with tendency to develop prerenal acute kidney injury she has a history of recurrent UTI, history of kidney cancer status post cryosurgery, history of recurrent multiple hospitalization for usually prerenal acute kidney injury due to high output ileostomy bag but I made arrangement for this patient to receive outpatient intravenous normal saline and this strategy was very effective in keeping her out of the hospital system for a very long time until this hospital admission Hospital Course Hospital Course: Patient was admitted for the management of ESBL E. coli urinary tract infection, acute kidney injury, acute on chronic systolic heart failure. On admission the serum creatinine was 4 she has a high output ileostomy bag with a history of recurrent prerenal azotemia initially the strategy was to treat with normal saline with IV Lasix the serum creatinine improved from 4 to 1.5 suggesting that the acute kidney injury is from prerenal azotemia. She also has UTI initially empirically treated with intravenous antibiotic, Rocephin, urine culture grew ESBL E. coli the antibiotic was changed to ertapenem. There was acute pulmonary edema a 2D echo was done, the left ventricle estimated ejection fraction was 45% because of the concern for ischemic cardiomyopathy a Lexiscan -cardioloite stress test was done, there is no scintigraphic evidence of Lexiscan induced myocardial ischemia. There is scintigraphic evidence of myocardiac infarction/scar. Because of this finding she was started on Entresto Physical Exam Vital Signs: Temp Pulse Resp BP Pulse Ox 98.2 F 88 18 109/59 L 97 11/23/18 11:53 11/23/18 11:53 11/23/18 11:53 11/23/18 11:53 11/23/18 11:53 Intake & Output 11/22/18 11/23/18 11/24/18 06:59 06:59 06:59 Intake Total 2979 3015 350 Output Total 4100 2400 1200 Balance -1121 615 -850 Weight 112.9 kg 115.8 kg General appearance: PRESENT: no acute distress Head exam: PRESENT: atraumatic, normocephalic Eye exam: PRESENT: conjunctiva pink, EOMI, PERRLA Ear exam: PRESENT: normal external ear exam Mouth exam: PRESENT: moist, tongue midline Neck exam: PRESENT: full ROM Respiratory exam: PRESENT: clear to auscultation stephen Cardiovascular exam: PRESENT: RRR, +S1, +S2 Pulses: PRESENT: normal dorsalis pedis pul, +2 pedal pulses bilateral Vascular exam: PRESENT: normal capillary refill GI/Abdominal exam: PRESENT: normal bowel sounds, soft Rectal exam: PRESENT: deferred Neurological exam: PRESENT: alert Psychiatric exam: PRESENT: appropriate affect, normal mood Skin exam: PRESENT: dry, intact, warm Results Laboratory Results: 11/21/18 06:10 11/23/18 04:37 11/23/18 04:37 Sodium 141.1 Potassium 4.0 Chloride 102 Carbon Dioxide 31 H Anion Gap 8 BUN 22 H Creatinine 1.57 H Est GFR ( Amer) 40 L Est GFR (Non-Af Amer) 33 L Glucose 60 L Calcium 8.7 11/16/18 11/16/18 11/17/18 22:20 22:20 02:04 Creatine Kinase 476 H CK-MB (CK-2) 5.67 H Troponin I 0.033 0.031 NT-Pro-B Natriuret Pep 3750 H 11/17/18 11/17/18 11/17/18 03:49 03:49 03:49 Creatine Kinase 391 H CK-MB (CK-2) 4.59 H Troponin I 0.034 NT-Pro-B Natriuret Pep 3430 H 11/17/18 11/17/18 11/17/18 12:51 12:51 21:30 Creatine Kinase 297 H 224 H CK-MB (CK-2) 4.05 Troponin I 0.022 NT-Pro-B Natriuret Pep 11/17/18 11/18/18 11/18/18 21:30 22:27 22:27 Creatine Kinase 148 H CK-MB (CK-2) 3.05 2.05 Troponin I 0.018 0.018 NT-Pro-B Natriuret Pep 11/19/18 11/19/18 11/19/18 06:15 06:15 14:59 Creatine Kinase 157 H 144 H CK-MB (CK-2) 2.21 Troponin I 0.014 NT-Pro-B Natriuret Pep 11/19/18 14:59 Creatine Kinase CK-MB (CK-2) 2.30 Troponin I < 0.012 NT-Pro-B Natriuret Pep Impressions: Chest X-Ray 11/16/18 15:24 IMPRESSION: Cardiomegaly with mild pulmonary edema. Renal Ultrasound 11/17/18 00:00 IMPRESSION: PROMINENT RENAL PELVIS IN BOTH KIDNEYS. THIS COULD INDICATE DEVELOPING HYDRONEPHROSIS. IF CLINICALLY INDICATED, CT OF THE ABDOMEN AND PELVIS MAY BE HELPFUL FOR MORE COMPLETE EVALUATION. Qualifiers - * PATIENT BEING DISCHARGED WITH ANY OF THE FOLLOWING DIAGNOSIS: No
[2018-11-23 15:47] VITALS: BP 153/84
[2018-11-23] MEDS ORDERED: SACUBITRIL/VALSARTAN 49 MG/51 MG TABLET PO ONE (16:00)
== END 2018-11-23 16:17 | disposition home or self-care (01) | DRG 682 ==
LOC: ER 14:00 → EH 11-17 02:51 → 3W 11-17 08:44
PROVIDERS: ADMIT Internal Medicine; ATTEND Internal Medicine
DX: N17.9 Acute kidney failure, unspecified (principal); I50.23 Acute on chronic systolic (congestive) heart failure; I13.0 Hypertensive heart and chronic kidney disease with heart failure and stage 1 through stage 4 chronic kidney disease, or unspecified chronic kidney disease; N39.0 Urinary tract infection, site not specified; E11.22 Type 2 diabetes mellitus with diabetic chronic kidney disease; N18.3 Chronic kidney disease, stage 3 (moderate); E66.01 Morbid (severe) obesity due to excess calories; E11.42 Type 2 diabetes mellitus with diabetic polyneuropathy; I25.10 Atherosclerotic heart disease of native coronary artery without angina pectoris; I48.91 Unspecified atrial fibrillation; E78.5 Hyperlipidemia, unspecified; K21.9 Gastro-esophageal reflux disease without esophagitis; K44.9 Diaphragmatic hernia without obstruction or gangrene; B96.20 Unspecified Escherichia coli [E. coli] as the cause of diseases classified elsewhere; Z86.718 Personal history of other venous thrombosis and embolism; D64.9 Anemia, unspecified; M19.90 Unspecified osteoarthritis, unspecified site; Z16.12 Extended spectrum beta lactamase (ESBL) resistance; I25.2 Old myocardial infarction; Z79.84 Long term (current) use of oral hypoglycemic drugs; Z95.5 Presence of coronary angioplasty implant and graft; Z90.710 Acquired absence of both cervix and uterus; Z88.1 Allergy status to other antibiotic agents; Z88.6 Allergy status to analgesic agent; Z87.440 Personal history of urinary (tract) infections; Z85.528 Personal history of other malignant neoplasm of kidney; Z93.2 Ileostomy status; B37.3 Candidiasis of vulva and vagina; Z90.49 Acquired absence of other specified parts of digestive tract
CPT/HCPCS: 36415; 71045; 76770; 78452; 80048; 80053; 80061; 80076; 80307; 81001; 82140; 82150; 82550; 82553; 82962; 83036; 83690; 83735; 83880; 84100; 84439; 84443; 84484; 85025; 85379; 85610; 85730; 87086; 87088; 87186; 93005; 93010; 93017; 93306; 94640; 96360; 96361; 96374; 99285; A9500; J0696; J1170; J1335; J1644; J1940; J2785; J3010; J3490; J7030; J7040; J7620; Q9969

== ENCOUNTER 2018-12-09 02:21 | Inpatient (IN) | payer MEDICARE, MEDICAID ==
[2018-12-09] MEDS ORDERED: NORMAL SALINE 1000 ML 1,000 ML IV ONE ×3 (02:53→04:59)
--- NOTE | 2018-12-09 02:54 | ER Document Report ---
ED General - General Chief Complaint: Urinary Problem Stated Complaint: DEHYDRATION Time Seen by Provider: 12/09/18 02:52 Notes: Patient is a 63-year-old female who has a history of recurrent acute renal failure that is usually related to her having a how he output ostomy causing dehydration and leading to renal failure. She was recently admitted to the hospital and discharged. She says over the last 2 days she has not made any urine and therefore is concerned that she is going into renal failure again. No fevers. No vomiting. She has a little bit of pain around ostomy site which she says is chronic. No other complaints at this time. Her primary care physician is Dr. Barakat. TRAVEL OUTSIDE OF THE [place] IN LAST 30 DAYS: No - Related Data Allergies/Adverse Reactions: ciprofloxacin [From Cipro] Allergy (Severe, Verified 11/16/18 14:04) Hallucinations morphine [Morphine] Allergy (Unknown, Verified 11/16/18 14:04) Past Medical History - Social History Smoking Status: Never Smoker Frequency of alcohol use: None Drug Abuse: None Family History: Reviewed & Not Pertinent, Hypertension - Past Medical History Cardiac Medical History: Reports: Hx Atrial Fibrillation, Hx Coronary Artery Disease, Hx DVT, Hx Heart Attack - 2002, Hx Hypercholesterolemia, Hx Hypertension Pulmonary Medical History: Reports: Hx Pneumonia - 2006 Neurological Medical History: Endocrine Medical History: Reports: Hx Diabetes Mellitus Type 2 Renal/ Medical History: Reports: Hx Ovarian Cysts, Hx Renal Insufficiency. Denies: Hx Peritoneal Dialysis Malignancy Medical History: Reports: Hx Renal (Kidney) Cancer GI Medical History: Reports: Hx Gastroesophageal Reflux Disease, Hx Hiatal Hernia, Hx Irritable Bowel, Hx Ulcer Musculoskeletal Medical History: Reports Hx Arthritis - Back, Knees Psychiatric Medical History: Denies: Hx Depression Traumatic Medical History: Reports: Hx Fractures Past Surgical History: Reports: Hx Abdominal Surgery - COLOSTOMY. INTESTINAL R UPTURE, Hx Bowel Surgery - COLECTOMY/ileostomy, Hx Cardiac Catheterization, Hx Cardiac Surgery - STENTS, Hx Colostomy, Hx Coronary Stent, Hx Hysterectomy, Hx Ileostomy, Hx Orthopedic Surgery - L knee replacement, right ankle pin, Other - Tracheostomy 10 yrs ago - Immunizations Immunizations up to date: Yes Hx Diphtheria, Pertussis, Tetanus Vaccination: No Hx Pneumococcal Vaccination: 09/19/13 Review of Systems - Review of Systems Notes: My Normal Review Basic REVIEW OF SYSTEMS: CONSTITUTIONAL : Denies fever, chills, or sweats. Denies recent illness. CARDIOVASCULAR: Denies chest pain. RESPIRATORY: Denies cough, cold, or chest congestion. Denies shortness of breath, difficulty breathing, or wheezing. GASTROINTESTINAL: Chronic abdominal pain. Denies nausea, vomiting GENITOURINARY: No urination in 2 days. MUSCULOSKELETAL: Denies neck or back pain or joint pain or swelling. SKIN: Denies rash or skin lesions. NEUROLOGICAL: Denies altered mental status or loss of consciousness. Denies headache. Denies weakness or paralysis or loss of use of either side. Denies problems with gait or speech. Denies sensory or motor loss. ALL OTHER SYSTEMS REVIEWED AND NEGATIVE. Physical Exam - Vital signs Vitals: Temp Pulse Resp BP Pulse Ox 98.9 F 103 H 28 H 145/96 H 88 L 12/09/18 02:31 12/09/18 02:31 12/09/18 02:31 12/09/18 02:12/09/18 02:31 - Notes Notes: General Appearance: Well nourished, alert, cooperative, no acute distress, no obvious discomfort. Vitals: reviewed, See vital signs table. Head: no swelling or tenderness to the head Eyes: PERRL, EOMI, Conjuctiva clear Mouth: No decreasd moisture Lungs: No wheezing, No rales, No rhonci, No accessory muscle use, good air exchange bilaterally. Heart: Normal rate, Regular rythm, No murmur, no rub Abdomen: Normal BS, soft, No rigidity, some pain to palpation over the central abdomen which patient says is chronic ongoing pain. Remainder of abdomen is nontender., No guarding, no rebound. Patient has ostomy bag. Normal colonic stool in ostomy bag. No gross blood. Bedside ultrasound shows that the patient has 35 mL's of urine in the bladder. Extremities: strength 5/5 in all extremities, good pulses in all extremities, no swelling or tenderness in the extremities, no edema. Skin: warm, dry, appropriate color, no rash Neuro: speech clear, oriented x 3, normal affect, responds appropriately to questions. Course - Re-evaluation Re-evalutation: 12/09/18 04:56 Potassium came back at 6.7 with acute renal failure. Furthermore IV fluids. Of ordered insulin glucose as well as bicarb. I did obtain EKG and it does not show any evidence of hyperkalemia at this time other than slightly prolonged MS interval; however, patient has a chronically prolonged MS interval in comparison to her previous EKGs. Called the nursing estimator and drafter supervisor to see if we have dialysis beds available in case the patient does need dialysis. In the past she is always responded well to fluids even with very high creatinine some hopefully she will again corrected with IV hydration. Once I hear back whether not we have dialysis capabilities I will contact Dr. Barakat to discuss the case with him. 12/09/18 04:57 12/09/18 04:58 12/09/18 05:47 I did hear that we do have an open dialysis bed. I did inform the house nurse estimator and drafter supervisor that I do not think we need to do dialysis but because she is always respond to fluids in the past however her creatinine is significantly high at this time with a high potassium and therefore I want to make sure we have this for backup in case needed. I then called Dr. Barakat who said that he does not feel the patient will need dialysis either however he will admit her and continue to give IV fluids to make sure that her kidney function does respond. Dictation of this chart was performed using voice recognition software; therefore, there may be some unintended grammatical errors. 12/09/18 05:48 - Vital Signs Vital signs: Temp Pulse Resp BP Pulse Ox 98.9 F 103 H 15 121/61 98 12/09/18 02:31 12/09/18 02:31 12/09/18 05:00 12/09/18 05:00 12/09/18 05:00 - Laboratory Result Diagrams: 12/09/18 03:40 12/09/18 03:40 Laboratory results interpreted by me: 12/09/18 12/09/18 03:40 03:40 Hct 35.4 L RDW 16.2 H Sodium 128.1 L Potassium 6.7 H* Chloride 93 L Carbon Dioxide 18 L BUN 75 H Creatinine 11.79 H Est GFR ( Amer) 4 L Est GFR (Non-Af Amer) 3 L Glucose 158 H Calcium 8.3 L AST 46 H ALT 64 H - EKG Interpretation by Me Additional EKG results interpreted by me: 12/09/18 04:58 EKGs reviewed and interpreted by me. EKG shows sinus rhythm with rate of [address] segment elevation or depression. No peak T waves. QRS is normal. MS interval slightly prolonged. QTc interval is within normal range. Old EKG for comparison is from November 16, 2018. Procedures - Ultrasound/Bedside Ultrasound/Bedside Ultrasound: Other - Bladder scan Notes: 12/09/18 03:55 Transabdominal bladder scan performed using ultrasound probe. Patient had specks with 35 mL's of urine and bladder Via Walters measurement using ultrasound. Discharge - Discharge Clinical Impression: Hyperkalemia, High output ileostomy, Hyponatremia Acute renal failure Qualifiers: Acute renal failure type: unspecified Qualified Code(s): N17.9 - Acute kidney failure, unspecified Condition: Stable Disposition: ADMITTED INPATIENT Admitting Provider: [facility] Unit Admitted: [facility]
--- NOTE | 2018-12-09 03:28 | RADIOLOGY REPORT (SQ) ---
EXAM DESCRIPTION: XR CHEST 1 VIEW COMPLETED DATE/TME: 12/09/2018 02:53 CLINICAL HISTORY: 63 years, Female, hypoxemia COMPARISON: 11/16/2018 chest NUMBER OF VIEWS: 1 TECHNIQUE: Portable chest LIMITATIONS: None. FINDINGS: Stable cardiomegaly. Central venous catheter in place. No pneumothorax. Lungs are clear IMPRESSION: Stable cardiomegaly. Lungs are clear copyright 2010 [employer]- All Rights Reserved
[2018-12-09 03:48] LABS: ABSOLUTE BASOPHILS # (AUTO) 0.1 10^3/uL (0.0-0.2); ABSOLUTE EOSINOPHILS # (AUTO) 0.2 10^3/uL (0.0-0.6); ABSOLUTE LYMPHOCYTES (AUTO) 1.9 10^3/uL (0.5-4.7); ABSOLUTE MONOCYTES (AUTO) 0.9 10^3/uL (0.1-1.4); ABSOLUTE NEUT (AUTO) 5.8 10^3/uL (1.7-8.2); BASOPHILS % (AUTO) 0.9 % (0-2); EOSINOPHILS % (AUTO) 2.7 % (0-6); HEMATOCRIT 35.4 % (36.0-47.0); HEMOGLOBIN 12.1 g/dL (12.0-15.5); MEAN CORPUSCULAR HEMOGLOBIN 30.9 pg (27.0-33.4); MEAN CORPUSCULAR HGB CONC 34.1 g/dL (32.0-36.0); MEAN CORPUSCULAR VOLUME 91 fl (80-97); MONOCYTES % (AUTO) 10.4 % (3-13); PLATELET COUNT 232 10^3/uL (150-450); RED BLOOD COUNT 3.91 10^6/uL (3.72-5.28); RED CELL DISTRIBUTION WIDTH 16.2 % (11.5-14.0); TOTAL CELLS COUNTED % (AUTO) 100 %
[2018-12-09] MEDS ORDERED: FENTANYL CITRATE INJ/PF 100 MCG/2 ML AMPUL IV ONE (03:48)
[2018-12-09 04:24] LABS: ALANINE AMINOTRANSFERASE 64 U/L (9-52); ALKALINE PHOSPHATASE 89 U/L (38-126); ANION GAP 17 (5-19); ASPARTATE AMINO TRANSFERASE 46 U/L (14-36); BILIRUBIN,DIRECT 0.4 mg/dL (0.0-0.4); BILIRUBIN,TOTAL 0.6 mg/dL (0.2-1.3); BLOOD UREA NITROGEN 75 mg/dL (7-20); CALCIUM 8.3 mg/dL (8.4-10.2); CARBON DIOXIDE 18 mmol/L (22-30); CHLORIDE 93 mmol/L (98-107); GLUCOSE 158 mg/dL (75-110); SODIUM 128.1 mmol/L (137-145); TOTAL PROTEIN 7.7 g/dL (6.3-8.2)
[2018-12-09 04:39] LABS: POTASSIUM 6.7 mmol/L (3.6-5.0)
[2018-12-09] MEDS ORDERED: SODIUM BICARBONATE 8.4% INJ 50 MEQ/50 ML DISP.SYRIN IV ONE (04:47)
[2018-12-09] MEDS ORDERED: DEXTROSE 50%-WATER 25 GM/50 ML DISP.SYRIN IV ONE (04:48)
[2018-12-09] MEDS: INSULIN REG, HUMAN 100 UNIT/ML 3 ML VIAL (PYX) IV ONE ×2 (05:06→05:12)
[2018-12-09 06:51] LABS: ANION GAP 14 (5-19); BLOOD UREA NITROGEN 71 mg/dL (7-20); CARBON DIOXIDE 20 mmol/L (22-30); CHLORIDE 96 mmol/L (98-107); GLUCOSE 161 mg/dL (75-110); SODIUM 129.8 mmol/L (137-145)
--- NOTE | 2018-12-09 07:49 | EKG REPORT ---
SEVERITY:- ABNORMAL ECG - SINUS RHYTHM FIRST DEGREE AV BLOCK PROBABLE INFERIOR INFARCT, AGE INDETERMINATE : Confirmed by: Brody Guajardo MD 09-Dec-2018 07:48:52
[2018-12-09] MEDS ORDERED: CALCIUM GLUCONATE 1000 MG/10 ML INJ IV ONE (09:00)
[2018-12-09] MEDS ORDERED: DEXTROSE 50%-WATER SYRINGE 25 GM/50 ML DOSE IV PRN (09:00)
[2018-12-09] MEDS ORDERED: DEXTROSE 40% GEL 15 GM TUBE X 2 PO PRN (09:00)
[2018-12-09] MEDS ORDERED: GLUCAGON,HUMAN RECOMB 1 MG INJ IM PRN (09:00)
[2018-12-09] MEDS ORDERED: DEXTROSE 50%-WATER SYRINGE 12.5 GM/25 ML DOSE IV PRN (09:00)
[2018-12-09] MEDS ORDERED: DEXTROSE 40% GEL 15 GM TUBE PO PRN (09:00)
[2018-12-09 09:48] LABS: INTERNATIONAL RATION (INR) 1.19; PROTHROMBIN TIME 15.7 SEC (11.4-15.4)
[2018-12-09 09:49] LABS: PARTIAL THROMBOPLASTIN TIME 33.1 SEC (23.5-35.8)
[2018-12-09 10:01] LABS: CREATINE KINASE MB 4.61 ng/mL (<4.55); TROPONIN I 0.053 ng/mL
[2018-12-09] MEDS: INSULIN LISPRO 100 UNIT/ML 3 ML VIAL SUBCUT SCH ×3 (12:33→22:45)
[2018-12-09] MEDS ORDERED: NORMAL SALINE 1000 ML 1,000 ML IV PRN (12:42)
[2018-12-09 14:26] LABS: APPEARANCE,URINE CLOUDY; BILIRUBIN,URINE NEGATIVE (NEGATIVE); COLOR,URINE YELLOW; GLUCOSE, URINE NEGATIVE (NEGATIVE); KETONES,URINE NEGATIVE (NEGATIVE); LEUKOCYTE ESTERASE,URINE LARGE (NEGATIVE); NITRITE,URINE NEGATIVE (NEGATIVE); PROTEIN,URINE 30 mg/dL (NEGATIVE); URINE SPECIFIC GRAVITY 1.017; UROBILINOGEN,URINE NEGATIVE mg/dL (<2.0)
[2018-12-09] MEDS: HEPARIN SOD (PORCINE) 5,000 UNIT/ML 1 ML SYRINGE SUBCUT SCH ×2 (15:23→22:53)
[2018-12-09 16:23] LABS: CREATINE KINASE MB 4.86 ng/mL (<4.55); TROPONIN I 0.051 ng/mL
[2018-12-09] MEDS: FUROSEMIDE INJ/PF 40 MG/4 ML SDV IV SCH ×2 (20:15→22:46)
[2018-12-09 21:40] LABS: CREATINE KINASE MB 4.61 ng/mL (<4.55); TROPONIN I 0.039 ng/mL
[2018-12-09] MEDS ORDERED: (PENDING PHARMACY ID) (Pravastatin Sodium [Pravachol] 40 MG) PO SCH (22:00)
[2018-12-09] MEDS ORDERED: (PENDING PHARMACY ID) (Oxycodone Myristate [Xtampza Er] 18 MG) PO SCH (22:00)
--- NOTE | 2018-12-09 22:30 | PDOC H&P ---
History of Present Illness Admission Date/PCP: 12/09/18 05:52 LISA MATA MD History of Present Illness: RANDEE VELÁSQUEZ is a 63 year old female,She came to the emergency room for e valuation of oliguria, she said she was not urinating, she has a history of high output ileostomy bag with recurrent acute kidney injury, in the emergency room she was found to have elevated serum creatinine, 11.7 BUN 75, sodium 128.She has history of recurrent hospitalization due to volume depletion from high output ileostomy bag, she has history of total colectomy, over the last year we had adopted a strategy of outpatient administration of IV fluid on a weekly basis with this treatment strategy we were able to keep her out of the hospital for the last year but she was recently admitted for evaluation of respiratory symptoms she was found to have a low ejection fraction of left ventricle, because of the ischemic Cardiomyopathy the strategy of administration of IV fluid was discontinued.This is the third admission in the last couple of weeks she was admitted about 3 weeks ago and this hospital, she was also admitted in [facility] for similar problem Past Medical History Cardiac Medical History: Reports: Atrial Fibrillation, Coronary Artery Disease, DVT, Myocardial Infarction - 2002, Hyperlipidema, Hypertension, Other - Ischemic cardiomyopathy Pulmonary Medical History: Reports: Pneumonia - 2006 Neurological Medical History: Endocrine Medical History: Reports: Diabetes Mellitus Type 2 Malignancy Medical History: Reports: Renal (Kidney) Cancer GI Medical History: Reports: Gastroesophageal Reflux Disease, Hiatal Hernia Musculoskeltal Medical History: Reports: Arthritis - Back, Knees Hematology: Reports: Anemia Past Surgical History Past Surgical History: Reports: Cardiac Catheterization, Colostomy, Coronary Stent, Hysterectomy, Ileostomy, Orthopedic Surgery - L knee replacement, right ankle pin, Other - Tracheostomy 10 yrs ago Social History Smoking Status: Never Smoker Frequency of Alcohol Use: None Hx Recreational Drug Use: No Drugs: None Hx Prescription Drug Abuse: No Family History Family History: Reviewed & Not Pertinent, Hypertension Parental Family History Reviewed: Yes Children Family History Reviewed: Yes Sibling(s) Family History Reviewed.: Yes Medication/Allergy Home Medications: Allopurinol [Zyloprim 100 mg Tablet] 100 mg PO DAILY 12/09/18 Calcitriol [Rocaltrol 0.5 mcg Capsule] 0.5 mcg PO DAILY 12/09/18 Colchicine [Colcrys 0.6 mg Tablet] 0.6 mg PO DAILY 12/09/18 Dapagliflozin Propanediol [Farxiga] 5 mg PO DAILY 12/09/18 Ergocalciferol (Vitamin D2) [Drisdol 50,000 unit (1.25MG) Capsule] 50,000 unit PO KYLE@1000 12/09/18 Exenatide Microspheres [Bydureon Pen] 2 mg SQ KYLE@1000 12/09/18 Gabapentin [Neurontin] 600 mg PO QID 12/09/18 Hydralazine HCl [Apresoline 50 mg Tablet] 50 mg PO TID 12/09/18 Linagliptin [Tradjenta] 5 mg PO DAILY 12/09/18 Metoprolol Succinate [Toprol Xl] 200 mg PO DAILY 12/09/18 Oxycodone HCl [Oxycodone HCl 10 MG Tablet] 10 mg PO Q8HP PRN 12/09/18 Oxycodone Myristate [Xtampza ER] 18 mg PO Q12 12/09/18 Pioglitazone HCl [Actos] 30 mg PO DAILY 12/09/18 Pravastatin Sodium [Pravachol] 40 mg PO QHS 12/09/18 Sacubitril/Valsartan [Entresto 49 mg/51 mg Tablet] 1 tab PO BID 12/09/18 Sodium Bicarbonate [Sodium Bicarbonate 650 mg Tablet] 1,300 mg PO TID 12/09/18 Allergies/Adverse Reactions: ciprofloxacin [From Cipro] Allergy (Severe, Verified 11/16/18 14:04) Hallucinations morphine [Morphine] Allergy (Unknown, Verified 11/16/18 14:04) Review of Systems Constitutional: ABSENT: chills, fever(s), headache(s), weight gain, weight loss Eyes: ABSENT: visual disturbances Ears: ABSENT: hearing changes Cardiovascular: ABSENT: chest pain, dyspnea on exertion, edema, orthropnea, palpitations Respiratory: ABSENT: cough, hemoptysis Gastrointestinal: ABSENT: abdominal pain, constipation, diarrhea, hematemesis, hematochezia, nausea, vomiting Genitourinary: PRESENT: other - Oliguria. ABSENT: dysuria, hematuria Musculoskeletal: ABSENT: joint swelling Integumentary: ABSENT: rash, wounds Neurological: ABSENT: abnormal gait, abnormal speech, confusion, dizziness, focal weakness, syncope Psychiatric: ABSENT: anxiety, depression, homidical ideation, suicidal ideation Endocrine: ABSENT: cold intolerance, heat intolerance, menstrual abnormalities, polydipsia, polyuria Hematologic/Lymphatic: ABSENT: easy bleeding, easy bruising, lymphadenopathy Physical Exam Vital Signs: Temp Pulse Resp BP Pulse Ox 98.6 F 94 20 106/39 L 96 12/09/18 21:01 12/09/18 21:01 12/09/18 21:01 12/09/18 21:01 12/09/18 21:01 Intake & Output 12/08/18 12/09/18 12/10/18 06:59 06:59 06:59 Intake Total 1000 1237 Output Total 500 Balance 1000 737 Weight 131.9 kg 133.7 kg General appearance: PRESENT: no acute distress, morbidly obese Head exam: PRESENT: atraumatic, normocephalic Eye exam: PRESENT: PERRLA Neck exam: PRESENT: full ROM Respiratory exam: PRESENT: clear to auscultation stephen Cardiovascular exam: PRESENT: +S1, +S2 Vascular exam: PRESENT: normal capillary refill GI/Abdominal exam: PRESENT: soft Rectal exam: PRESENT: deferred Neurological exam: PRESENT: alert Psychiatric exam: PRESENT: appropriate affect, normal mood Skin exam: PRESENT: dry, intact, warm. ABSENT: cyanosis, rash Results Laboratory Results: 12/09/18 03:40 12/09/18 06:15 12/09/18 12/09/18 12/09/18 03:40 03:40 06:15 WBC 9.0 RBC 3.91 Hgb 12.1 Hct 35.4 L MCV 91 MCH 30.9 MCHC 34.1 RDW 16.2 H Plt Count 232 Seg Neutrophils % 65.0 Lymphocytes % 21.0 Monocytes % 10.4 Eosinophils % 2.7 Basophils % 0.9 Absolute Neutrophils 5.8 Absolute Lymphocytes 1.9 Absolute Monocytes 0.9 Absolute Eosinophils 0.2 Absolute Basophils 0.1 Sodium 128.1 L 129.8 L Potassium 6.7 H* 5.0 D Chloride 93 L 96 L Carbon Dioxide 18 L 20 L Anion Gap 17 14 BUN 75 H 71 H Creatinine 11.79 H 10.80 H Est GFR ( Amer) 4 L 4 L Est GFR (Non-Af Amer) 3 L 4 L Glucose 158 H 161 H Calcium 8.3 L 7.0 L* Total Bilirubin 0.6 AST 46 H ALT 64 H Alkaline Phosphatase 89 Total Protein 7.7 Albumin 4.0 TSH Urine Color Urine Appearance Urine pH Ur Specific [place] Urine Protein Urine Glucose (UA) Urine Ketones Urine Blood Urine Nitrite Ur Leukocyte Esterase Urine WBC (Auto) Urine RBC (Auto) 12/09/18 12/09/18 06:15 14:05 WBC RBC Hgb Hct MCV MCH MCHC RDW Plt Count Seg Neutrophils % Lymphocytes % Monocytes % Eosinophils % Basophils % Absolute Neutrophils Absolute Lymphocytes Absolute Monocytes Absolute Eosinophils Absolute Basophils Sodium Potassium Chloride Carbon Dioxide Anion Gap BUN Creatinine Est GFR ( Amer) Est GFR (Non-Af Amer) Glucose Calcium Total Bilirubin AST ALT Alkaline Phosphatase Total Protein Albumin TSH 0.63 Urine Color YELLOW Urine Appearance CLOUDY Urine pH 5.0 Ur Specific [place] 1.017 Urine Protein 30 H Urine Glucose (UA) NEGATIVE Urine Ketones NEGATIVE Urine Blood NEGATIVE Urine Nitrite NEGATIVE Ur Leukocyte Esterase LARGE H Urine WBC (Auto) 20 Urine RBC (Auto) 4 12/09/18 12/09/18 12/09/18 09:00 09:00 15:25 Creatine Kinase 449 H 457 H CK-MB (CK-2) 4.61 H Troponin I 0.053 12/09/18 12/09/18 12/09/18 15:25 20:30 20:30 Creatine Kinase 440 H CK-MB (CK-2) 4.86 H 4.61 H Troponin I 0.051 0.039 Impressions: Chest X-Ray 12/09/18 02:53 IMPRESSION: Stable cardiomegaly. Lungs are clear copyright 2010 [employer]- All Rights Reserved Assessment & Plan - Diagnosis (1) Acute kidney injury Is this a current diagnosis for this admission?: Yes Plan: She has Oliguric acute kidney injury, The etiology of the oliguric acute kidney injury is most likely due to reduction in effective plasma volume/hemodynamic instability, the combination of high output ileostomy bag and Use of Entresto and farxiga could have resulted in reduction of effective plasma volume with resultant low GFR, she will be treated with normal saline and Lasix infusion, she has ischemic cardiomyopathy with a low ejection fraction, The administration of normal saline must be very judicious (2) Ischemic cardiomyopathy Is this a current diagnosis for this admission?: Yes (3) Hyperkalemia Is this a current diagnosis for this admission?: Yes Plan: The hypercalcemia is probably multifactorial in etiology, it could be medication related, she is on Entresto, it could probably be from acute kidney injury (4) Hypocalcemia Is this a current diagnosis for this admission?: Yes Plan: She has underlying chronic kidney disease, the hypocalcemia is most likely from the chronic kidney disease, intact PTH will be ordered (5) Chronic kidney disease, stage 3 Is this a current diagnosis for this admission?: Yes (6) Chronic systolic heart failure Is this a current diagnosis for this admission?: Yes (7) Type 2 diabetes mellitus Qualifiers: Diabetes mellitus termination clerk insulin use: with snf use Diabetes mellitus complication status: with neurologic complications Diabetes mellitus complication detail: with polyneuropathy Qualified Code(s): E11.42 - Type 2 diabetes mellitus with diabetic polyneuropathy; Z79.4 - long term acute care registered nurse (current) use of insulin; Z79.4 - long term acute care registered nurse (current) use of insulin; Z79.4 - long term acute care registered nurse (current) use of insulin; Z79.4 - senior living (current) use of insulin Is this a current diagnosis for this admission?: Yes
[2018-12-09 22:46] LABS: ALANINE AMINOTRANSFERASE 56 U/L (9-52); ALBUMIN 3.1 g/dL (3.5-5.0); ALKALINE PHOSPHATASE 73 U/L (38-126); ANION GAP 15 (5-19); ASPARTATE AMINO TRANSFERASE 42 U/L (14-36); BILIRUBIN,DIRECT 0.4 mg/dL (0.0-0.4); BILIRUBIN,TOTAL 0.4 mg/dL (0.2-1.3); BLOOD UREA NITROGEN 71 mg/dL (7-20); CALCIUM 7.5 mg/dL (8.4-10.2); CARBON DIOXIDE 19 mmol/L (22-30); CHLORIDE 97 mmol/L (98-107); GLUCOSE 134 mg/dL (75-110); SODIUM 131.2 mmol/L (137-145); TOTAL PROTEIN 6.4 g/dL (6.3-8.2)
[2018-12-09] MEDS: ATORVASTATIN CALCIUM 10 MG TABLET PO SCH (22:54)
[2018-12-09] MEDS: GABAPENTIN 300 MG CAPSULE PO SCH (23:01)
[2018-12-09] MEDS ORDERED: DOPAMINE HCL/DEXTROSE 5%-WATER 800 MG/250 ML RTUINJ IV PRN (23:20)
[2018-12-10] MEDS ORDERED: DOPAMINE HCL 800 MG/D5W 250 ML IV PRN ×8 (00:04→12:30)
[2018-12-10] MEDS: NORMAL SALINE 1000 ML 1,000 ML IV PRN ×4 (00:54→22:38)
[2018-12-10] MEDS: HEPARIN SOD (PORCINE) 5,000 UNIT/ML 1 ML SYRINGE SUBCUT SCH ×3 (05:03→21:30)
[2018-12-10] MEDS: GABAPENTIN 300 MG CAPSULE PO SCH ×3 (05:03→18:31)
[2018-12-10 05:32] LABS: ABSOLUTE EOSINOPHILS # (AUTO) 0.2 10^3/uL (0.0-0.6); ABSOLUTE LYMPHOCYTES (AUTO) 1.1 10^3/uL (0.5-4.7); ABSOLUTE MONOCYTES (AUTO) 0.7 10^3/uL (0.1-1.4); ABSOLUTE NEUT (AUTO) 3.1 10^3/uL (1.7-8.2); BASOPHILS % (AUTO) 0.2 % (0-2); EOSINOPHILS % (AUTO) 3.4 % (0-6); HEMATOCRIT 30.2 % (36.0-47.0); HEMOGLOBIN 10.1 g/dL (12.0-15.5); LYMPHOCYTES % (AUTO) 20.8 % (13-45); MEAN CORPUSCULAR HEMOGLOBIN 30.3 pg (27.0-33.4); MEAN CORPUSCULAR HGB CONC 33.4 g/dL (32.0-36.0); MEAN CORPUSCULAR VOLUME 91 fl (80-97); MONOCYTES % (AUTO) 14.8 % (3-13); PLATELET COUNT 142 10^3/uL (150-450); RED BLOOD COUNT 3.33 10^6/uL (3.72-5.28); RED CELL DISTRIBUTION WIDTH 16.6 % (11.5-14.0); SEGMENTED NEUTROPHILS % (AUTO) 60.8 % (42-78); TOTAL CELLS COUNTED % (AUTO) 100 %
[2018-12-10 05:43] LABS: ALANINE AMINOTRANSFERASE 48 U/L (9-52); ALBUMIN 2.9 g/dL (3.5-5.0); ALKALINE PHOSPHATASE 70 U/L (38-126); ANION GAP 14 (5-19); ASPARTATE AMINO TRANSFERASE 40 U/L (14-36); BILIRUBIN,DIRECT 0.3 mg/dL (0.0-0.4); BILIRUBIN,TOTAL 0.4 mg/dL (0.2-1.3); BLOOD UREA NITROGEN 69 mg/dL (7-20); CALCIUM 7.3 mg/dL (8.4-10.2); CARBON DIOXIDE 18 mmol/L (22-30); CHLORIDE 103 mmol/L (98-107); GLUCOSE 122 mg/dL (75-110); POTASSIUM 5.4 mmol/L (3.6-5.0); SODIUM 134.5 mmol/L (137-145); TOTAL PROTEIN 6.2 g/dL (6.3-8.2)
[2018-12-10] MEDS ORDERED: MAGNESIUM OXIDE 400 MG TABLET PO ONE (06:30)
[2018-12-10] MEDS ORDERED: (PENDING PHARMACY ID) (Calcitriol [Rocaltrol 0.5 Mcg Capsule] 0.5 MCG) PO SCH (10:00)
[2018-12-10] MEDS ORDERED: (PENDING PHARMACY ID) (Metoprolol Succinate [Toprol Xl] 200 MG) PO SCH ×2 (10:00)
[2018-12-10] MEDS ORDERED: (PENDING PHARMACY ID) (Linagliptin [Tradjenta] 5 MG) PO SCH (10:00)
[2018-12-10] MEDS ORDERED: CALCITRIOL 0.25 MCG CAPSULE PO SCH (10:00)
[2018-12-10] MEDS: INSULIN LISPRO 100 UNIT/ML 3 ML VIAL SUBCUT SCH ×4 (10:12→22:40)
[2018-12-10] MEDS: SODIUM BICARBONATE 650 MG TABLET PO SCH ×3 (11:27→18:31)
[2018-12-10] MEDS: SITAGLIPTIN PHOSPHATE 25 MG TABLET PO SCH (11:27)
[2018-12-10] MEDS: COLCHICINE 0.6 MG TABLET PO SCH (11:28)
[2018-12-10] MEDS: ALLOPURINOL 100 MG TABLET PO SCH (11:28)
[2018-12-10] MEDS: FUROSEMIDE INJ/PF 40 MG/4 ML SDV IV SCH ×2 (11:28→21:29)
[2018-12-10] MEDS: SACUBITRIL/VALSARTAN 49 MG/51 MG TABLET PO SCH ×2 (11:28→18:31)
[2018-12-10] MEDS: METOPROLOL SUCCINATE 50 MG TAB.SR.24H PO SCH (11:29)
[2018-12-10] MEDS: HYDRALAZINE HCL 50 MG TABLET PO SCH ×3 (11:43→21:31)
--- NOTE | 2018-12-10 18:58 | PDOC PROGRESS REPORT ---
Subjective Progress Note for:: 12/10/18 Subjective:: Patient was seen by the bedside, the blood pressure was low last night, she was started on dopamine at 5 MCG per KG per minute, she developed increased heart rate, it was held last night but this morning the blood pressure is low again, the dopamine is also restarted. She has ileostomy bag, The RN,Nurse Marielle expressed concern of a possible leak of the content of the bag in the pelvic area, she placed a wrap on the mons pubis but there was no evidence of leak from the back itself that could be tracking down into the vulvar area because the wrap on mon pubis was dry,this raises suspicion for a fistula with ileum and the vagina she may need a fistulogram will need to consult with radiology for that Reason For Visit: ACUTE KIDNEY INJURY, ISCHEMIC CARDIOMYOPATHY Physical Exam Vital Signs: Temp Pulse Resp BP Pulse Ox 98.7 F 96 20 115/63 96 12/10/18 15:56 12/10/18 15:56 12/10/18 15:56 12/10/18 15:56 12/10/18 15:56 Intake & Output 12/09/18 12/10/18 12/11/18 06:59 06:59 06:59 Intake Total 1000 2649 2000 Output Total 2525 1600 Balance 1000 124 400 Weight 131.9 kg 136.2 kg General appearance: PRESENT: no acute distress Eye exam: PRESENT: PERRLA Respiratory exam: PRESENT: clear to auscultation stephen Cardiovascular exam: PRESENT: +S1, +S2 GI/Abdominal exam: PRESENT: soft Neurological exam: PRESENT: alert Results Laboratory Results: 12/10/18 05:15 12/10/18 05:15 12/09/18 12/10/18 12/10/18 20:30 05:15 05:15 WBC 5.0 RBC 3.33 L Hgb 10.1 L Hct 30.2 L MCV 91 MCH 30.3 MCHC 33.4 RDW 16.6 H Plt Count 142 L Seg Neutrophils % 60.8 Lymphocytes % 20.8 Monocytes % 14.8 H Eosinophils % 3.4 Basophils % 0.2 Absolute Neutrophils 3.1 Absolute Lymphocytes 1.1 Absolute Monocytes 0.7 Absolute Eosinophils 0.2 Absolute Basophils 0.0 Sodium 131.2 L 134.5 L Potassium 5.0 5.4 H Chloride 97 L 103 Carbon Dioxide 19 L 18 L Anion Gap 15 14 BUN 71 H 69 H Creatinine 9.61 H 7.80 H Est GFR ( Amer) 5 L 6 L Est GFR (Non-Af Amer) 4 L 5 L Glucose 134 H 122 H Calcium 7.5 L 7.3 L Phosphorus 8.0 H Magnesium 1.1 L* Total Bilirubin 0.4 0.4 AST 42 H 40 H ALT 56 H 48 Alkaline Phosphatase 73 70 Total Protein 6.4 6.2 L Albumin 3.1 L 2.9 L Free T4 12/10/18 05:15 WBC RBC Hgb Hct MCV MCH MCHC RDW Plt Count Seg Neutrophils % Lymphocytes % Monocytes % Eosinophils % Basophils % Absolute Neutrophils Absolute Lymphocytes Absolute Monocytes Absolute Eosinophils Absolute Basophils Sodium Potassium Chloride Carbon Dioxide Anion Gap BUN Creatinine Est GFR ( Amer) Est GFR (Non-Af Amer) Glucose Calcium Phosphorus Magnesium Total Bilirubin AST ALT Alkaline Phosphatase Total Protein Albumin Free T4 1.30 12/09/18 12/09/18 12/09/18 09:00 09:00 15:25 Creatine Kinase 449 H 457 H CK-MB (CK-2) 4.61 H Troponin I 0.053 12/09/18 12/09/18 12/09/18 15:25 20:30 20:30 Creatine Kinase 440 H CK-MB (CK-2) 4.86 H 4.61 H Troponin I 0.051 0.039 Impressions: Chest X-Ray 12/09/18 02:53 IMPRESSION: Stable cardiomegaly. Lungs are clear copyright 2011 [employer]- All Rights Reserved Assessment & Plan - Diagnosis (1) Acute kidney injury Is this a current diagnosis for this admission?: Yes Plan: The kidney function is improving (2) Ischemic cardiomyopathy Is this a current diagnosis for this admission?: Yes (3) Hyperkalemia Is this a current diagnosis for this admission?: Yes (4) Hypocalcemia Is this a current diagnosis for this admission?: Yes Plan: PTH is ordered,to differentiate between secondary hyperparathyroidism or PTH mediated hypocalcemia (5) Chronic kidney disease, stage 3 Is this a current diagnosis for this admission?: Yes (6) Chronic systolic heart failure Is this a current diagnosis for this admission?: Yes (7) Type 2 diabetes mellitus Qualifiers: Diabetes mellitus snf insulin use: with snf use Diabetes mellitus complication status: with neurologic complications Diabetes mellitus complication detail: with polyneuropathy Qualified Code(s): E11.42 - Type 2 diabetes mellitus with diabetic polyneuropathy; Z79.4 - care home (current) use of insulin; Z79.4 - care home (current) use of insulin; Z79.4 - local company intermodal truck driver (current) use of insulin; Z79.4 - care home (current) use of insulin Is this a current diagnosis for this admission?: Yes
[2018-12-10] MEDS ORDERED: NYSTATIN TOPICAL POWDER 15 GM TP ONE (21:00)
[2018-12-10] MEDS: ATORVASTATIN CALCIUM 10 MG TABLET PO SCH (21:29)
[2018-12-10] MEDS: OXYCODONE HCL IR 5 MG TABLET PO PRN (21:29)
[2018-12-11] MEDS: GABAPENTIN 300 MG CAPSULE PO SCH ×4 (00:41→20:17)
[2018-12-11] MEDS: HYDROMORPHONE HCL INJ/PF 2 MG/ML AMPULE IV PRN ×3 (00:46→18:30)
[2018-12-11 04:21] LABS: ABSOLUTE EOSINOPHILS # (AUTO) 0.4 10^3/uL (0.0-0.6); ABSOLUTE LYMPHOCYTES (AUTO) 1.1 10^3/uL (0.5-4.7); ABSOLUTE MONOCYTES (AUTO) 0.7 10^3/uL (0.1-1.4); ABSOLUTE NEUT (AUTO) 2.3 10^3/uL (1.7-8.2); BASOPHILS % (AUTO) 0.5 % (0-2); EOSINOPHILS % (AUTO) 8.2 % (0-6); HEMATOCRIT 32.7 % (36.0-47.0); HEMOGLOBIN 10.9 g/dL (12.0-15.5); LYMPHOCYTES % (AUTO) 23.9 % (13-45); MEAN CORPUSCULAR HEMOGLOBIN 30.1 pg (27.0-33.4); MEAN CORPUSCULAR HGB CONC 33.4 g/dL (32.0-36.0); MEAN CORPUSCULAR VOLUME 90 fl (80-97); MONOCYTES % (AUTO) 15.4 % (3-13); PLATELET COUNT 158 10^3/uL (150-450); RED BLOOD COUNT 3.63 10^6/uL (3.72-5.28); RED CELL DISTRIBUTION WIDTH 16.2 % (11.5-14.0); TOTAL CELLS COUNTED % (AUTO) 100 %; WHITE BLOOD COUNT 4.5 10^3/uL (4.0-10.5)
[2018-12-11 04:39] LABS: ALANINE AMINOTRANSFERASE 49 U/L (9-52); ALBUMIN 3.3 g/dL (3.5-5.0); ALKALINE PHOSPHATASE 79 U/L (38-126); ANION GAP 8 (5-19); ASPARTATE AMINO TRANSFERASE 38 U/L (14-36); BILIRUBIN,DIRECT 0.4 mg/dL (0.0-0.4); BILIRUBIN,TOTAL 0.4 mg/dL (0.2-1.3); BLOOD UREA NITROGEN 54 mg/dL (7-20); CARBON DIOXIDE 25 mmol/L (22-30); CHLORIDE 107 mmol/L (98-107); GLUCOSE 154 mg/dL (75-110); POTASSIUM 4.7 mmol/L (3.6-5.0); SODIUM 139.7 mmol/L (137-145)
[2018-12-11 05:10] LABS: PHOSPHORUS 5.6 mg/dL (2.5-4.5)
[2018-12-11] MEDS: HYDRALAZINE HCL 50 MG TABLET PO SCH ×3 (05:40→21:34)
[2018-12-11] MEDS: HEPARIN SOD (PORCINE) 5,000 UNIT/ML 1 ML SYRINGE SUBCUT SCH ×3 (05:41→21:31)
[2018-12-11] MEDS: OXYCODONE HCL IR 5 MG TABLET PO PRN ×3 (05:41→23:25)
[2018-12-11] MEDS: NORMAL SALINE 1000 ML 1,000 ML IV PRN ×3 (05:42→20:20)
[2018-12-11] MEDS ORDERED: MAGNESIUM OXIDE 400 MG TABLET PO ONE (06:15)
[2018-12-11] MEDS: INSULIN LISPRO 100 UNIT/ML 3 ML VIAL SUBCUT SCH ×4 (08:44→23:17)
[2018-12-11] MEDS: SITAGLIPTIN PHOSPHATE 25 MG TABLET PO SCH (09:25)
[2018-12-11] MEDS: COLCHICINE 0.6 MG TABLET PO SCH (09:25)
[2018-12-11] MEDS: CALCITRIOL 0.25 MCG CAPSULE PO SCH (09:25)
[2018-12-11] MEDS: SACUBITRIL/VALSARTAN 49 MG/51 MG TABLET PO SCH ×2 (09:25→20:17)
[2018-12-11] MEDS: FUROSEMIDE INJ/PF 40 MG/4 ML SDV IV SCH ×2 (09:26→21:31)
[2018-12-11] MEDS: METOPROLOL SUCCINATE 50 MG TAB.SR.24H PO SCH (09:26)
[2018-12-11] MEDS: SODIUM BICARBONATE 650 MG TABLET PO SCH ×3 (09:26→20:16)
[2018-12-11] MEDS: ALLOPURINOL 100 MG TABLET PO SCH (09:26)
[2018-12-11] MEDS ORDERED: ERGOCALCIFEROL (VITAMIN D2) 50000 UNIT (1.25 MG) CAPSULE PO SCH (10:00)
[2018-12-11] MEDS ORDERED: (PENDING PHARMACY ID) (Exenatide Microspheres [Bydureon Pen] 2 MG) SQ SCH (10:00)
[2018-12-11] MEDS: NYSTATIN TOPICAL POWDER 15 GM TP SCH ×2 (10:37→20:18)
--- NOTE | 2018-12-11 20:11 | PDOC PROGRESS REPORT ---
Subjective Progress Note for:: 12/11/18 Subjective:: Patient seen by the bedside, Reason For Visit: ACUTE KIDNEY INJURY, ISCHEMIC CARDIOMYOPATHY Physical Exam Vital Signs: Temp Pulse Resp BP Pulse Ox 98.5 F 79 18 113/60 97 12/11/18 17:22 12/11/18 17:22 12/11/18 17:22 12/11/18 17:22 12/11/18 17:22 Intake & Output 12/10/18 12/11/18 12/12/18 06:59 06:59 06:59 Intake Total 2649 4950 1187 Output Total 2521 5895 975 Balance 124 -945 212 Weight 136.2 kg 133.6 kg General appearance: PRESENT: no acute distress Eye exam: PRESENT: PERRLA Respiratory exam: PRESENT: clear to auscultation stephen Cardiovascular exam: PRESENT: +S1, +S2 GI/Abdominal exam: PRESENT: soft Neurological exam: PRESENT: alert, CN II-XII grossly intact Results Laboratory Results: 12/11/18 04:00 12/11/18 04:00 12/10/18 12/11/18 12/11/18 20:10 04:00 04:00 WBC 4.5 RBC 3.63 L Hgb 10.9 L Hct 32.7 L MCV 90 MCH 30.1 MCHC 33.4 RDW 16.2 H Plt Count 158 Seg Neutrophils % 52.0 Lymphocytes % 23.9 Monocytes % 15.4 H Eosinophils % 8.2 H Basophils % 0.5 Absolute Neutrophils 2.3 Absolute Lymphocytes 1.1 Absolute Monocytes 0.7 Absolute Eosinophils 0.4 Absolute Basophils 0.0 Sodium 139.7 Potassium 4.7 Chloride 107 Carbon Dioxide 25 Anion Gap 8 BUN 54 H Creatinine 3.71 H Est GFR ( Amer) 15 L Est GFR (Non-Af Amer) 12 L Glucose 154 H Calcium 8.0 L Phosphorus 5.6 H D Magnesium 1.1 L* Total Bilirubin 0.4 AST 38 H ALT 49 Alkaline Phosphatase 79 Total Protein 7.0 Albumin 3.3 L Free T4 PTH Intact 574.6 H 12/11/18 04:00 WBC RBC Hgb Hct MCV MCH MCHC RDW Plt Count Seg Neutrophils % Lymphocytes % Monocytes % Eosinophils % Basophils % Absolute Neutrophils Absolute Lymphocytes Absolute Monocytes Absolute Eosinophils Absolute Basophils Sodium Potassium Chloride Carbon Dioxide Anion Gap BUN Creatinine Est GFR ( Amer) Est GFR (Non-Af Amer) Glucose Calcium Phosphorus Magnesium Total Bilirubin AST ALT Alkaline Phosphatase Total Protein Albumin Free T4 1.35 PTH Intact 12/09/18 14:05 Catheterized Urine Urine Culture - Final NO GROWTH 2 DAYS 12/09/18 12/09/18 12/09/18 09:00 09:00 15:25 Creatine Kinase 449 H 457 H CK-MB (CK-2) 4.61 H Troponin I 0.053 12/09/18 12/09/18 12/09/18 15:25 20:30 20:30 Creatine Kinase 440 H CK-MB (CK-2) 4.86 H 4.61 H Troponin I 0.051 0.039 Impressions: Chest X-Ray 12/09/18 02:53 IMPRESSION: Stable cardiomegaly. Lungs are clear copyright 2011 [employer]- All Rights Reserved Assessment & Plan - Diagnosis (1) Acute kidney injury Is this a current diagnosis for this admission?: Yes Plan: The kidney function is improving (2) Ischemic cardiomyopathy Is this a current diagnosis for this admission?: Yes (3) Hyperkalemia Is this a current diagnosis for this admission?: Yes Plan: Resolved (4) Hypocalcemia Is this a current diagnosis for this admission?: Yes (5) Chronic kidney disease, stage 3 Is this a current diagnosis for this admission?: Yes (6) Chronic systolic heart failure Is this a current diagnosis for this admission?: Yes (7) Type 2 diabetes mellitus Qualifiers: Diabetes mellitus long-term insulin use: with long-term use Diabetes mellitus complication status: with neurologic complications Diabetes mellitus complication detail: with polyneuropathy Qualified Code(s): E11.42 - Type 2 diabetes mellitus with diabetic polyneuropathy; Z79.4 - intermodal dispatcher (current) use of insulin; Z79.4 - intermodal dispatcher (current) use of insulin; Z79.4 - MCC (current) use of insulin; Z79.4 - intermodal dispatcher (current) use of insulin Is this a current diagnosis for this admission?: Yes (8) Hypotension Qualifiers: Hypotension type: unspecified hypotension type Qualified Code(s): I95.9 - Hypotension, unspecified Is this a current diagnosis for this admission?: Yes Plan: Blood pressure improved discontinue dopamine (9) Secondary hyperparathyroidism Is this a current diagnosis for this admission?: Yes Plan: Increase calcitriol to 1 MCG p.o. daily
[2018-12-11] MEDS: ATORVASTATIN CALCIUM 10 MG TABLET PO SCH (21:31)
[2018-12-11] MEDS: DIPHENOXYLATE HCL/ATROP SULF 2.5-0.025 MG TABLET PO PRN (23:19)
[2018-12-12] MEDS: GABAPENTIN 300 MG CAPSULE PO SCH ×3 (01:19→17:16)
[2018-12-12] MEDS: HYDROMORPHONE HCL INJ/PF 2 MG/ML AMPULE IV PRN ×4 (01:20→21:53)
[2018-12-12] MEDS: NORMAL SALINE 1000 ML 1,000 ML IV PRN ×3 (04:27→20:37)
[2018-12-12] MEDS: HEPARIN SOD (PORCINE) 5,000 UNIT/ML 1 ML SYRINGE SUBCUT SCH ×3 (06:23→21:53)
[2018-12-12] MEDS: HYDRALAZINE HCL 50 MG TABLET PO SCH ×3 (06:23→21:54)
[2018-12-12 06:52] LABS: ABSOLUTE EOSINOPHILS # (AUTO) 0.4 10^3/uL (0.0-0.6); ABSOLUTE LYMPHOCYTES (AUTO) 1.2 10^3/uL (0.5-4.7); ABSOLUTE MONOCYTES (AUTO) 0.5 10^3/uL (0.1-1.4); ABSOLUTE NEUT (AUTO) 2.1 10^3/uL (1.7-8.2); BASOPHILS % (AUTO) 0.5 % (0-2); EOSINOPHILS % (AUTO) 9.5 % (0-6); HEMATOCRIT 31.7 % (36.0-47.0); HEMOGLOBIN 10.6 g/dL (12.0-15.5); LYMPHOCYTES % (AUTO) 29.2 % (13-45); MEAN CORPUSCULAR HEMOGLOBIN 30.1 pg (27.0-33.4); MEAN CORPUSCULAR HGB CONC 33.3 g/dL (32.0-36.0); MEAN CORPUSCULAR VOLUME 90 fl (80-97); MONOCYTES % (AUTO) 11.3 % (3-13); PLATELET COUNT 139 10^3/uL (150-450); RED BLOOD COUNT 3.51 10^6/uL (3.72-5.28); RED CELL DISTRIBUTION WIDTH 16.2 % (11.5-14.0); SEGMENTED NEUTROPHILS % (AUTO) 49.5 % (42-78); TOTAL CELLS COUNTED % (AUTO) 100 %; WHITE BLOOD COUNT 4.3 10^3/uL (4.0-10.5)
[2018-12-12 07:09] LABS: ALANINE AMINOTRANSFERASE 39 U/L (9-52); ALKALINE PHOSPHATASE 65 U/L (38-126); ANION GAP 6 (5-19); ASPARTATE AMINO TRANSFERASE 33 U/L (14-36); BILIRUBIN,DIRECT 0.3 mg/dL (0.0-0.4); BILIRUBIN,TOTAL 0.3 mg/dL (0.2-1.3); BLOOD UREA NITROGEN 40 mg/dL (7-20); CALCIUM 7.9 mg/dL (8.4-10.2); CARBON DIOXIDE 26 mmol/L (22-30); CHLORIDE 108 mmol/L (98-107); GLUCOSE 183 mg/dL (75-110); PHOSPHORUS 3.6 mg/dL (2.5-4.5); POTASSIUM 4.1 mmol/L (3.6-5.0); SODIUM 140.2 mmol/L (137-145); TOTAL PROTEIN 6.4 g/dL (6.3-8.2)
[2018-12-12] MEDS: INSULIN LISPRO 100 UNIT/ML 3 ML VIAL SUBCUT SCH ×4 (08:10→21:54)
[2018-12-12] MEDS: MAGNESIUM SULFATE 1 GM/D5W 100 ML IV SCH ×2 (08:34→09:41)
[2018-12-12] MEDS: FUROSEMIDE INJ/PF 40 MG/4 ML SDV IV SCH ×2 (09:42→21:53)
[2018-12-12] MEDS: ALLOPURINOL 100 MG TABLET PO SCH (09:43)
[2018-12-12] MEDS: COLCHICINE 0.6 MG TABLET PO SCH (09:43)
[2018-12-12] MEDS: CALCITRIOL 0.25 MCG CAPSULE PO SCH (09:43)
[2018-12-12] MEDS: SITAGLIPTIN PHOSPHATE 25 MG TABLET PO SCH (09:43)
[2018-12-12] MEDS: SACUBITRIL/VALSARTAN 49 MG/51 MG TABLET PO SCH ×2 (09:43→17:17)
[2018-12-12] MEDS: NYSTATIN TOPICAL POWDER 15 GM TP SCH ×2 (09:43→17:20)
[2018-12-12] MEDS: METOPROLOL SUCCINATE 50 MG TAB.SR.24H PO SCH (09:43)
[2018-12-12] MEDS: SODIUM BICARBONATE 650 MG TABLET PO SCH ×3 (09:43→17:17)
[2018-12-12] MEDS: OXYCODONE HCL IR 5 MG TABLET PO PRN (20:36)
[2018-12-12] MEDS: ATORVASTATIN CALCIUM 10 MG TABLET PO SCH (21:54)
--- NOTE | 2018-12-12 22:07 | PDOC PROGRESS REPORT ---
Subjective Progress Note for:: 12/12/18 Subjective:: Patient was seen by the bedside she has extremely low magnesium today, she continues to improve with hydration the serum creatinine is 2 Reason For Visit: ACUTE KIDNEY INJURY, ISCHEMIC CARDIOMYOPATHY Physical Exam Vital Signs: Temp Pulse Resp BP Pulse Ox 98.2 F 64 12 127/60 H 93 12/12/18 19:17 12/12/18 19:17 12/12/18 19:17 12/12/18 19:17 12/12/18 19:17 Intake & Output 12/11/18 12/12/18 12/13/18 06:59 06:59 06:59 Intake Total 4950 3909 8838 Output Total 6795 6780 9433 Balance -760 -4129 -457 Weight 133.6 kg 131.3 kg General appearance: PRESENT: no acute distress Eye exam: PRESENT: PERRLA Respiratory exam: PRESENT: clear to auscultation stephen Cardiovascular exam: PRESENT: +S1, +S2 GI/Abdominal exam: PRESENT: soft Neurological exam: PRESENT: alert Results Laboratory Results: 12/12/18 06:25 12/12/18 06:25 12/12/18 12/12/18 12/12/18 06:25 06:25 06:25 WBC 4.3 RBC 3.51 L Hgb 10.6 L Hct 31.7 L MCV 90 MCH 30.1 MCHC 33.3 RDW 16.2 H Plt Count 139 L Seg Neutrophils % 49.5 Lymphocytes % 29.2 Monocytes % 11.3 Eosinophils % 9.5 H Basophils % 0.5 Absolute Neutrophils 2.1 Absolute Lymphocytes 1.2 Absolute Monocytes 0.5 Absolute Eosinophils 0.4 Absolute Basophils 0.0 Sodium 140.2 Potassium 4.1 Chloride 108 H Carbon Dioxide 26 Anion Gap 6 BUN 40 H Creatinine 2.49 H Est GFR ( Amer) 24 L Est GFR (Non-Af Amer) 20 L Glucose 183 H Calcium 7.9 L Phosphorus 3.6 Magnesium 0.8 L* Total Bilirubin 0.3 AST 33 ALT 39 Alkaline Phosphatase 65 Total Protein 6.4 Albumin 3.0 L Free T4 1.47 12/09/18 12/09/18 12/09/18 09:00 09:00 15:25 Creatine Kinase 449 H 457 H CK-MB (CK-2) 4.61 H Troponin I 0.053 0412/09/18 12/09/18 15:25 20:30 20:30 Creatine Kinase 440 H CK-MB (CK-2) 4.86 H 4.61 H Troponin I 0.051 0.039 Impressions: Chest X-Ray 12/09/18 02:53 IMPRESSION: Stable cardiomegaly. Lungs are clear copyright 2011 [employer]- All Rights Reserved Assessment & Plan - Diagnosis (1) Acute kidney injury Is this a current diagnosis for this admission?: Yes Plan: Improving on present regimen (2) Ischemic cardiomyopathy Is this a current diagnosis for this admission?: Yes (3) Hyperkalemia Is this a current diagnosis for this admission?: Yes (4) Hypocalcemia Is this a current diagnosis for this admission?: Yes (5) Chronic kidney disease, stage 3 Is this a current diagnosis for this admission?: Yes (6) Chronic systolic heart failure Is this a current diagnosis for this admission?: Yes (7) Type 2 diabetes mellitus Qualifiers: Diabetes mellitus fdc insulin use: with fdc use Diabetes mellitus complication status: with neurologic complications Diabetes mellitus complication detail: with polyneuropathy Qualified Code(s): E11.42 - Type 2 diabetes mellitus with diabetic polyneuropathy; Z79.4 - intermediate card tender (current) use of insulin; Z79.4 - residential (current) use of insulin; Z79.4 - residential (current) use of insulin; Z79.4 - intermediate card tender (current) use of insulin Is this a current diagnosis for this admission?: Yes (8) Hypotension Qualifiers: Hypotension type: unspecified hypotension type Qualified Code(s): I95.9 - Hypotension, unspecified Is this a current diagnosis for this admission?: Yes Plan: improving (9) Secondary hyperparathyroidism Is this a current diagnosis for this admission?: Yes (10) Hypomagnesemia Is this a current diagnosis for this admission?: Yes Plan: Replace magnesium
[2018-12-13] MEDS: NORMAL SALINE 1000 ML 1,000 ML IV PRN ×2 (04:17→13:26)
[2018-12-13] MEDS: HEPARIN SOD (PORCINE) 5,000 UNIT/ML 1 ML SYRINGE SUBCUT SCH ×3 (06:00→22:27)
[2018-12-13] MEDS: GABAPENTIN 300 MG CAPSULE PO SCH ×2 (06:00→17:37)
[2018-12-13] MEDS: HYDRALAZINE HCL 50 MG TABLET PO SCH ×3 (06:00→22:32)
[2018-12-13] MEDS: OXYCODONE HCL IR 5 MG TABLET PO PRN ×2 (06:03→15:31)
[2018-12-13] MEDS: INSULIN LISPRO 100 UNIT/ML 3 ML VIAL SUBCUT SCH ×4 (07:37→22:28)
[2018-12-13] MEDS: COLCHICINE 0.6 MG TABLET PO SCH (09:19)
[2018-12-13] MEDS: CALCITRIOL 0.25 MCG CAPSULE PO SCH (09:20)
[2018-12-13] MEDS: METOPROLOL SUCCINATE 50 MG TAB.SR.24H PO SCH (09:21)
[2018-12-13] MEDS: SACUBITRIL/VALSARTAN 49 MG/51 MG TABLET PO SCH ×2 (09:22→17:36)
[2018-12-13] MEDS: ALLOPURINOL 100 MG TABLET PO SCH (09:22)
[2018-12-13] MEDS: SITAGLIPTIN PHOSPHATE 25 MG TABLET PO SCH (09:22)
[2018-12-13] MEDS: FUROSEMIDE INJ/PF 40 MG/4 ML SDV IV SCH (09:24)
[2018-12-13] MEDS: HYDROMORPHONE HCL INJ/PF 2 MG/ML AMPULE IV PRN ×2 (09:25→17:38)
[2018-12-13] MEDS: SODIUM BICARBONATE 650 MG TABLET PO SCH ×3 (09:26→17:37)
[2018-12-13] MEDS: NYSTATIN TOPICAL POWDER 15 GM TP SCH ×2 (11:10→17:37)
[2018-12-13 15:32] LABS: ALANINE AMINOTRANSFERASE 34 U/L (9-52); ALBUMIN 2.6 g/dL (3.5-5.0); ALKALINE PHOSPHATASE 54 U/L (38-126); ASPARTATE AMINO TRANSFERASE 27 U/L (14-36); BILIRUBIN,DIRECT 0.2 mg/dL (0.0-0.4); BILIRUBIN,TOTAL 0.2 mg/dL (0.2-1.3); BLOOD UREA NITROGEN 23 mg/dL (7-20); CALCIUM 7.1 mg/dL (8.4-10.2); GLUCOSE 125 mg/dL (75-110); POTASSIUM 3.7 mmol/L (3.6-5.0); TOTAL PROTEIN 5.7 g/dL (6.3-8.2)
[2018-12-13 15:37] LABS: CARBON DIOXIDE 25 mmol/L (22-30); CHLORIDE 113 mmol/L (98-107); SODIUM 141.4 mmol/L (137-145)
[2018-12-13 15:38] LABS: ANION GAP 3 (5-19)
[2018-12-13] MEDS: DIPHENOXYLATE HCL/ATROP SULF 2.5-0.025 MG TABLET PO PRN (19:45)
--- NOTE | 2018-12-13 20:37 | PDOC PROGRESS REPORT ---
Subjective Progress Note for:: 12/13/18 Subjective:: Patient continues to improve, the kidney function is better Reason For Visit: ACUTE KIDNEY INJURY, ISCHEMIC CARDIOMYOPATHY Physical Exam Vital Signs: Temp Pulse Resp BP Pulse Ox 98.7 F 65 14 131/76 H 98 12/13/18 16:17 12/13/18 16:17 12/13/18 16:17 12/13/18 16:17 12/13/18 16:17 Intake & Output 12/12/18 12/13/18 12/14/18 06:59 06:59 06:59 Intake Total 3909 3773 1690 Output Total 6701 5470 9480 Balance -7451 -7471 -0016 Weight 131.3 kg 130.8 kg General appearance: PRESENT: no acute distress Eye exam: PRESENT: PERRLA Respiratory exam: PRESENT: clear to auscultation stephen Cardiovascular exam: PRESENT: +S1, +S2 GI/Abdominal exam: PRESENT: soft Neurological exam: PRESENT: alert Results Laboratory Results: 12/12/18 06:25 12/13/18 15:00 12/13/18 15:00 Sodium 141.4 Potassium 3.7 Chloride 113 H Carbon Dioxide 25 Anion Gap 3 L BUN 23 H Creatinine 1.74 H Est GFR ( Amer) 36 L Est GFR (Non-Af Amer) 30 L Glucose 125 H Calcium 7.1 L Total Bilirubin 0.2 AST 27 ALT 34 Alkaline Phosphatase 54 Total Protein 5.7 L Albumin 2.6 L 12/09/18 12/09/18 12/09/18 09:00 09:00 15:25 Creatine Kinase 449 H 457 H CK-MB (CK-2) 4.61 H Troponin I 0.053 12/09/18 12/09/18 12/09/18 15:25 20:30 20:30 Creatine Kinase 440 H CK-MB (CK-2) 4.86 H 4.61 H Troponin I 0.051 0.039 Impressions: Chest X-Ray 12/09/18 02:53 IMPRESSION: Stable cardiomegaly. Lungs are clear copyright 2010 [employer]- All Rights Reserved Assessment & Plan - Diagnosis (1) Acute kidney injury Is this a current diagnosis for this admission?: Yes Plan: Improving on present regimen (2) Ischemic cardiomyopathy Is this a current diagnosis for this admission?: Yes (3) Hyperkalemia Is this a current diagnosis for this admission?: Yes (4) Hypocalcemia Is this a current diagnosis for this admission?: Yes (5) Chronic kidney disease, stage 3 Is this a current diagnosis for this admission?: Yes (6) Chronic systolic heart failure Is this a current diagnosis for this admission?: Yes (7) Type 2 diabetes mellitus Qualifiers: Diabetes mellitus intermodal customer service insulin use: with intermodal customer service use Diabetes mellitus complication status: with neurologic complications Diabetes mellitus complication detail: with polyneuropathy Qualified Code(s): E11.42 - Type 2 diabetes mellitus with diabetic polyneuropathy; Z79.4 - long term care pharmacist (current) use of insulin; Z79.4 - custodial (current) use of insulin; Z79.4 - custodial (current) use of insulin; Z79.4 - custodial (current) use of insulin Is this a current diagnosis for this admission?: Yes (8) Hypotension Qualifiers: Hypotension type: unspecified hypotension type Qualified Code(s): I95.9 - Hypotension, unspecified Is this a current diagnosis for this admission?: Yes (9) Secondary hyperparathyroidism Is this a current diagnosis for this admission?: Yes (10) Hypomagnesemia Is this a current diagnosis for this admission?: Yes
[2018-12-13] MEDS: ATORVASTATIN CALCIUM 10 MG TABLET PO SCH (22:32)
[2018-12-14] MEDS: OXYCODONE HCL IR 5 MG TABLET PO PRN ×3 (00:21→19:50)
[2018-12-14] MEDS: NORMAL SALINE 1000 ML 1,000 ML IV PRN ×3 (00:23→18:01)
[2018-12-14] MEDS: HYDROMORPHONE HCL INJ/PF 2 MG/ML AMPULE IV PRN ×4 (01:55→22:08)
[2018-12-14] MEDS: HEPARIN SOD (PORCINE) 5,000 UNIT/ML 1 ML SYRINGE SUBCUT SCH ×3 (05:50→21:30)
[2018-12-14] MEDS: GABAPENTIN 300 MG CAPSULE PO SCH ×2 (05:55→17:59)
[2018-12-14] MEDS: HYDRALAZINE HCL 50 MG TABLET PO SCH ×3 (05:55→21:57)
[2018-12-14] MEDS: INSULIN LISPRO 100 UNIT/ML 3 ML VIAL SUBCUT SCH ×4 (08:18→22:56)
[2018-12-14] MEDS: SODIUM BICARBONATE 650 MG TABLET PO SCH ×3 (10:24→17:59)
[2018-12-14] MEDS: SACUBITRIL/VALSARTAN 49 MG/51 MG TABLET PO SCH ×2 (10:24→18:00)
[2018-12-14] MEDS: SITAGLIPTIN PHOSPHATE 25 MG TABLET PO SCH (10:25)
[2018-12-14] MEDS: CALCITRIOL 0.25 MCG CAPSULE PO SCH (10:25)
[2018-12-14] MEDS: METOPROLOL SUCCINATE 50 MG TAB.SR.24H PO SCH (10:25)
[2018-12-14] MEDS: ALLOPURINOL 100 MG TABLET PO SCH (10:25)
[2018-12-14] MEDS: COLCHICINE 0.6 MG TABLET PO SCH (10:25)
[2018-12-14] MEDS: FUROSEMIDE INJ/PF 40 MG/4 ML SDV IV SCH (10:25)
[2018-12-14] MEDS: NYSTATIN TOPICAL POWDER 15 GM TP SCH ×2 (10:26→18:00)
[2018-12-14 12:24] LABS: ABSOLUTE EOSINOPHILS # (AUTO) 0.5 10^3/uL (0.0-0.6); ABSOLUTE LYMPHOCYTES (AUTO) 1.4 10^3/uL (0.5-4.7); ABSOLUTE MONOCYTES (AUTO) 0.5 10^3/uL (0.1-1.4); ABSOLUTE NEUT (AUTO) 3.4 10^3/uL (1.7-8.2); BASOPHILS % (AUTO) 0.5 % (0-2); HEMATOCRIT 34.1 % (36.0-47.0); HEMOGLOBIN 11.3 g/dL (12.0-15.5); LYMPHOCYTES % (AUTO) 24.6 % (13-45); MEAN CORPUSCULAR HEMOGLOBIN 30.3 pg (27.0-33.4); MEAN CORPUSCULAR HGB CONC 33.3 g/dL (32.0-36.0); MEAN CORPUSCULAR VOLUME 91 fl (80-97); PLATELET COUNT 148 10^3/uL (150-450); RED BLOOD COUNT 3.74 10^6/uL (3.72-5.28); RED CELL DISTRIBUTION WIDTH 16.4 % (11.5-14.0); SEGMENTED NEUTROPHILS % (AUTO) 57.9 % (42-78); TOTAL CELLS COUNTED % (AUTO) 100 %; WHITE BLOOD COUNT 5.8 10^3/uL (4.0-10.5)
[2018-12-14] MEDS: DIPHENOXYLATE HCL/ATROP SULF 2.5-0.025 MG TABLET PO PRN ×2 (13:42→22:09)
[2018-12-14 14:30] LABS: ALANINE AMINOTRANSFERASE 35 U/L (9-52); ALBUMIN 2.9 g/dL (3.5-5.0); ALKALINE PHOSPHATASE 60 U/L (38-126); ANION GAP 5 (5-19); ASPARTATE AMINO TRANSFERASE 28 U/L (14-36); BILIRUBIN,DIRECT 0.2 mg/dL (0.0-0.4); BILIRUBIN,TOTAL 0.2 mg/dL (0.2-1.3); BLOOD UREA NITROGEN 19 mg/dL (7-20); CALCIUM 8.5 mg/dL (8.4-10.2); CARBON DIOXIDE 25 mmol/L (22-30); CHLORIDE 110 mmol/L (98-107); GLUCOSE 148 mg/dL (75-110); POTASSIUM 4.1 mmol/L (3.6-5.0); SODIUM 140.2 mmol/L (137-145); TOTAL PROTEIN 6.5 g/dL (6.3-8.2)
--- NOTE | 2018-12-14 17:41 | PDOC PROGRESS REPORT ---
Subjective Progress Note for:: 12/14/18 Subjective:: Patient is alert the high output ileostomy bag still producing lots of fluid in the bag the serum creatinine is slightly up today at 1.9 Reason For Visit: ACUTE KIDNEY INJURY, ISCHEMIC CARDIOMYOPATHY Physical Exam Vital Signs: Temp Pulse Resp BP Pulse Ox 98.3 F 68 22 H 136/68 H 97 12/14/18 11:21 12/14/18 14:00 12/14/18 11:21 12/14/18 11:21 12/14/18 11:21 Intake & Output 12/13/18 12/14/18 12/15/18 06:59 06:59 06:59 Intake Total 3773 3047 1000 Output Total 5025 3800 975 Balance -5832 -383 25 Weight 130.8 kg 131.9 kg General appearance: PRESENT: no acute distress Eye exam: PRESENT: PERRLA Respiratory exam: PRESENT: clear to auscultation stephen Cardiovascular exam: PRESENT: +S1, +S2 GI/Abdominal exam: PRESENT: soft Neurological exam: PRESENT: alert Results Laboratory Results: 12/14/18 11:57 12/14/18 11:42 12/14/18 12/14/18 11:42 11:57 WBC 5.8 RBC 3.74 Hgb 11.3 L Hct 34.1 L MCV 91 MCH 30.3 MCHC 33.3 RDW 16.4 H Plt Count 148 L Seg Neutrophils % 57.9 Lymphocytes % 24.6 Monocytes % 8.0 Eosinophils % 9.0 H Basophils % 0.5 Absolute Neutrophils 3.4 Absolute Lymphocytes 1.4 Absolute Monocytes 0.5 Absolute Eosinophils 0.5 Absolute Basophils 0.0 Sodium 140.2 Potassium 4.1 Chloride 110 H Carbon Dioxide 25 Anion Gap 5 BUN 19 Creatinine 1.91 H Est GFR ( Amer) 32 L Est GFR (Non-Af Amer) 27 L Glucose 148 H Calcium 8.5 Total Bilirubin 0.2 AST 28 ALT 35 Alkaline Phosphatase 60 Total Protein 6.5 Albumin 2.9 L 12/09/18 12/09/18 12/09/18 09:00 09:00 15:25 Creatine Kinase 449 H 457 H CK-MB (CK-2) 4.61 H Troponin I 0.053 12/09/18 12/09/18 12/09/18 15:25 20:30 20:30 Creatine Kinase 440 H CK-MB (CK-2) 4.86 H 4.61 H Troponin I 0.051 0.039 Impressions: Chest X-Ray 12/09/18 02:53 IMPRESSION: Stable cardiomegaly. Lungs are clear copyright 2011 [employer]- All Rights Reserved Assessment & Plan - Diagnosis (1) Acute kidney injury Is this a current diagnosis for this admission?: Yes Plan: Improving on present regimen (2) Ischemic cardiomyopathy Is this a current diagnosis for this admission?: Yes (3) Hyperkalemia Is this a current diagnosis for this admission?: Yes Plan: Resolved (4) Hypocalcemia Is this a current diagnosis for this admission?: Yes (5) Chronic kidney disease, stage 3 Is this a current diagnosis for this admission?: Yes (6) Chronic systolic heart failure Is this a current diagnosis for this admission?: Yes (7) Type 2 diabetes mellitus Qualifiers: Diabetes mellitus halfway insulin use: with terminal block assembler use Diabetes mellitus complication status: with neurologic complications Diabetes mellitus complication detail: with polyneuropathy Qualified Code(s): E11.42 - Type 2 diabetes mellitus with diabetic polyneuropathy; Z79.4 - USP (current) use of insulin; Z79.4 - exterminator helper (current) use of insulin; Z79.4 - USP (current) use of insulin; Z79.4 - exterminator helper (current) use of insulin Is this a current diagnosis for this admission?: Yes (8) Hypotension Qualifiers: Hypotension type: unspecified hypotension type Qualified Code(s): I95.9 - Hypotension, unspecified Is this a current diagnosis for this admission?: Yes Plan: improving (9) Secondary hyperparathyroidism Is this a current diagnosis for this admission?: Yes Plan: continue calcitriol to 1 MCG p.o. daily (10) Hypomagnesemia Is this a current diagnosis for this admission?: Yes Plan: Replace magnesium
[2018-12-14] MEDS: ATORVASTATIN CALCIUM 10 MG TABLET PO SCH (21:57)
[2018-12-15] MEDS: HYDROMORPHONE HCL INJ/PF 2 MG/ML AMPULE IV PRN ×2 (04:59→12:30)
[2018-12-15 05:00] LABS: ABSOLUTE EOSINOPHILS # (AUTO) 0.5 10^3/uL (0.0-0.6); ABSOLUTE LYMPHOCYTES (AUTO) 1.7 10^3/uL (0.5-4.7); ABSOLUTE MONOCYTES (AUTO) 0.5 10^3/uL (0.1-1.4); ABSOLUTE NEUT (AUTO) 3.6 10^3/uL (1.7-8.2); BASOPHILS % (AUTO) 0.5 % (0-2); EOSINOPHILS % (AUTO) 8.1 % (0-6); HEMATOCRIT 33.6 % (36.0-47.0); HEMOGLOBIN 11.2 g/dL (12.0-15.5); LYMPHOCYTES % (AUTO) 27.3 % (13-45); MEAN CORPUSCULAR HEMOGLOBIN 30.1 pg (27.0-33.4); MEAN CORPUSCULAR HGB CONC 33.2 g/dL (32.0-36.0); MEAN CORPUSCULAR VOLUME 91 fl (80-97); MONOCYTES % (AUTO) 8.4 % (3-13); PLATELET COUNT 140 10^3/uL (150-450); RED BLOOD COUNT 3.71 10^6/uL (3.72-5.28); RED CELL DISTRIBUTION WIDTH 16.6 % (11.5-14.0); SEGMENTED NEUTROPHILS % (AUTO) 55.7 % (42-78); TOTAL CELLS COUNTED % (AUTO) 100 %; WHITE BLOOD COUNT 6.4 10^3/uL (4.0-10.5)
[2018-12-15] MEDS: GABAPENTIN 300 MG CAPSULE PO SCH ×2 (05:00→17:51)
[2018-12-15] MEDS: HYDRALAZINE HCL 50 MG TABLET PO SCH ×2 (05:00→13:54)
[2018-12-15] MEDS: NORMAL SALINE 1000 ML 1,000 ML IV PRN (05:00)
[2018-12-15] MEDS: HEPARIN SOD (PORCINE) 5,000 UNIT/ML 1 ML SYRINGE SUBCUT SCH ×2 (05:00→13:51)
[2018-12-15 05:21] LABS: ALANINE AMINOTRANSFERASE 38 U/L (9-52); ALKALINE PHOSPHATASE 60 U/L (38-126); ANION GAP 6 (5-19); ASPARTATE AMINO TRANSFERASE 27 U/L (14-36); BILIRUBIN,DIRECT 0.2 mg/dL (0.0-0.4); BILIRUBIN,TOTAL 0.2 mg/dL (0.2-1.3); BLOOD UREA NITROGEN 18 mg/dL (7-20); CALCIUM 8.1 mg/dL (8.4-10.2); CARBON DIOXIDE 27 mmol/L (22-30); CHLORIDE 108 mmol/L (98-107); GLUCOSE 79 mg/dL (75-110); SODIUM 141.4 mmol/L (137-145); TOTAL PROTEIN 6.5 g/dL (6.3-8.2)
[2018-12-15] MEDS: INSULIN LISPRO 100 UNIT/ML 3 ML VIAL SUBCUT SCH ×3 (08:17→16:03)
[2018-12-15] MEDS: METOPROLOL SUCCINATE 50 MG TAB.SR.24H PO SCH (09:47)
[2018-12-15] MEDS: NYSTATIN TOPICAL POWDER 15 GM TP SCH ×2 (09:48→17:45)
[2018-12-15] MEDS: ALLOPURINOL 100 MG TABLET PO SCH (09:52)
[2018-12-15] MEDS: SITAGLIPTIN PHOSPHATE 25 MG TABLET PO SCH (09:52)
[2018-12-15] MEDS: CALCITRIOL 0.25 MCG CAPSULE PO SCH (09:52)
[2018-12-15] MEDS: COLCHICINE 0.6 MG TABLET PO SCH (09:52)
[2018-12-15] MEDS: SACUBITRIL/VALSARTAN 49 MG/51 MG TABLET PO SCH ×2 (09:52→17:50)
[2018-12-15] MEDS: SODIUM BICARBONATE 650 MG TABLET PO SCH ×3 (09:52→17:50)
[2018-12-15] MEDS: OXYCODONE HCL IR 5 MG TABLET PO PRN ×2 (09:52→18:18)
[2018-12-15] MEDS: FUROSEMIDE INJ/PF 40 MG/4 ML SDV IV SCH (09:53)
--- NOTE | 2018-12-15 17:47 | PDOC DISCHARGE SUMMARY ---
General - Admit/Disc Date/PCP Admission Date/Primary Care Provider: 12/09/18 05:52 LISA MATA MD Discharge Date: 12/15/18 - Discharge Diagnosis (1) Acute kidney injury Is this a current diagnosis for this admission?: Yes (2) Ischemic cardiomyopathy Is this a current diagnosis for this admission?: Yes (3) Hyperkalemia Is this a current diagnosis for this admission?: Yes (4) Hypocalcemia Is this a current diagnosis for this admission?: Yes (5) Chronic kidney disease, stage 3 Is this a current diagnosis for this admission?: Yes (6) Chronic systolic heart failure Is this a current diagnosis for this admission?: Yes (7) Type 2 diabetes mellitus Is this a current diagnosis for this admission?: Yes (8) Hypotension Is this a current diagnosis for this admission?: Yes (9) Secondary hyperparathyroidism Is this a current diagnosis for this admission?: Yes (10) Hypomagnesemia Is this a current diagnosis for this admission?: Yes - Additional Information Home Medications: RX: Allopurinol [Zyloprim 100 mg Tablet] 100 mg PO DAILY 12/09/18 RX: Calcitriol [Rocaltrol 0.5 mcg Capsule] 0.5 mcg PO DAILY 12/09/18 RX: Colchicine [Colcrys 0.6 mg Tablet] 0.6 mg PO DAILY 12/09/18 RX: Dapagliflozin Propanediol [Farxiga] 5 mg PO DAILY 12/09/18 RX: Ergocalciferol (Vitamin D2) [Drisdol 50,000 unit (1.25MG) Capsule] 50,000 unit PO KYLE@1000 12/09/18 RX: Exenatide Microspheres [Bydureon Pen] 2 mg SQ KYLE@1000 12/09/18 RX: Gabapentin [Neurontin] 600 mg PO QID 12/09/18 RX: Hydralazine HCl [Apresoline 50 mg Tablet] 50 mg PO TID 12/09/18 RX: Linagliptin [Tradjenta] 5 mg PO DAILY 12/09/18 RX: Metoprolol Succinate [Toprol Xl] 200 mg PO DAILY 12/09/18 RX: Oxycodone HCl [Oxycodone HCl 10 MG Tablet] 10 mg PO Q8HP PRN 12/09/18 RX: Oxycodone Myristate [Xtampza ER] 18 mg PO Q12 12/09/18 RX: Pravastatin Sodium [Pravachol] 40 mg PO QHS 12/09/18 RX: Sodium Bicarbonate [Sodium Bicarbonate 650 mg Tablet] 1,300 mg PO TID 12/09/18 History of Present Illness History of Present Illness: RANDEE VELÁSQUEZ is a 63 year old female,She came to the emergency room for evaluation of oliguria, she said she was not urinating, she has a history of high output ileostomy bag with recurrent acute kidney injury, in the emergency room she was found to have elevated serum creatinine, 11.7 BUN 75, sodium 128.She has history of recurrent hospitalization due to volume depletion from high output ileostomy bag, she has history of total colectomy, over the last year we had adopted a strategy of outpatient administration of IV fluid on a weekly basis with this treatment strategy we were able to keep her out of the hospital for the last year but she was recently admitted for evaluation of respiratory symptoms she was found to have a low ejection fraction of left ventricle, because of the ischemic Cardiomyopathy the strategy of administration of IV fluid was discontinued.This is the third admission in the last couple of weeks she was admitted about 3 weeks ago and this hospital, she was also admitted in [facility] for similar problem Hospital Course Hospital Course: Patient was admitted for the management of acute kidney injury on a pre-existing chronic kidney disease stage III she has a high output ileostomy bag, when she presented the serum creatinine was 11, she is back to baseline, 1.8-1.9, she was treated with normal saline at 150 cc/h with Lasix 40 mg IV every 12, with this strategy the kidney function improved to baseline she had electrolyte derangements that was corrected , this is ongoing problem for this patient, she has a high output ileostomy bag as a consequence of total colectomy. Last year we were able to keep her out of the hospital because we arrange outpatient ceferino burleson IV fluid therapy but this was discontinued because of cardiomyopathy. There is a risk of recurrent admission in this patient because of this problem Physical Exam Vital Signs: Temp Pulse Resp BP Pulse Ox 98.3 F 67 18 166/71 H 99 12/15/18 15:46 12/15/18 15:46 12/15/18 15:46 12/15/18 15:46 12/15/18 15:46 Intake & Output 12/14/18 12/15/18 12/16/18 06:59 06:59 06:59 Intake Total 0710 1079 1042 Output Total 0538 6666 0166 Balance -694 -096 -1798 Weight 131.9 kg 132.1 kg General appearance: PRESENT: no acute distress Head exam: PRESENT: atraumatic, normocephalic Eye exam: PRESENT: PERRLA Ear exam: PRESENT: normal external ear exam Mouth exam: PRESENT: moist, tongue midline Neck exam: PRESENT: full ROM Respiratory exam: PRESENT: clear to auscultation stephen Cardiovascular exam: PRESENT: +S1, +S2 Vascular exam: PRESENT: normal capillary refill GI/Abdominal exam: PRESENT: soft Rectal exam: PRESENT: deferred Neurological exam: PRESENT: alert, CN II-XII grossly intact Psychiatric exam: PRESENT: appropriate affect, normal mood Skin exam: PRESENT: dry, intact, warm Results Laboratory Results: 12/15/18 04:35 12/15/18 04:35 12/15/18 12/15/18 04:35 04:35 WBC 6.4 RBC 3.71 L Hgb 11.2 L Hct 33.6 L MCV 91 MCH 30.1 MCHC 33.2 RDW 16.6 H Plt Count 140 L Seg Neutrophils % 55.7 Lymphocytes % 27.3 Monocytes % 8.4 Eosinophils % 8.1 H Basophils % 0.5 Absolute Neutrophils 3.6 Absolute Lymphocytes 1.7 Absolute Monocytes 0.5 Absolute Eosinophils 0.5 Absolute Basophils 0.0 Sodium 141.4 Potassium 4.0 Chloride 108 H Carbon Dioxide 27 Anion Gap 6 BUN 18 Creatinine 1.92 H Est GFR ( Amer) 32 L Est GFR (Non-Af Amer) 26 L Glucose 79 Calcium 8.1 L Total Bilirubin 0.2 AST 27 ALT 38 Alkaline Phosphatase 60 Total Protein 6.5 Albumin 3.0 L 12/09/18 12/09/18 12/09/18 09:00 09:00 15:25 Creatine Kinase 449 H 457 H CK-MB (CK-2) 4.61 H Troponin I 0.053 12/09/18 12/09/18 12/09/18 15:25 20:30 20:30 Creatine Kinase 440 H CK-MB (CK-2) 4.86 H 4.61 H Troponin I 0.051 0.039 Impressions: Chest X-Ray 12/09/18 02:53 IMPRESSION: Stable cardiomegaly. Lungs are clear copyright 2011 [employer]- All Rights Reserved Qualifiers - * PATIENT BEING DISCHARGED WITH ANY OF THE FOLLOWING DIAGNOSIS: No
[2018-12-15 18:08] VITALS: BP 145/96
== END 2018-12-15 18:00 | disposition home or self-care (01) | DRG 683 ==
LOC: ER 02:21 → EH 05:52 → 3S 07:35
PROVIDERS: ADMIT Internal Medicine; ATTEND Internal Medicine
DX: N17.9 Acute kidney failure, unspecified (principal); I13.0 Hypertensive heart and chronic kidney disease with heart failure and stage 1 through stage 4 chronic kidney disease, or unspecified chronic kidney disease; I50.22 Chronic systolic (congestive) heart failure; E11.22 Type 2 diabetes mellitus with diabetic chronic kidney disease; E11.42 Type 2 diabetes mellitus with diabetic polyneuropathy; I95.9 Hypotension, unspecified; I48.91 Unspecified atrial fibrillation; E87.5 Hyperkalemia; E83.51 Hypocalcemia; E83.42 Hypomagnesemia; I25.5 Ischemic cardiomyopathy; I25.10 Atherosclerotic heart disease of native coronary artery without angina pectoris; E78.5 Hyperlipidemia, unspecified; K44.9 Diaphragmatic hernia without obstruction or gangrene; M47.9 Spondylosis, unspecified; M17.0 Bilateral primary osteoarthritis of knee; N18.3 Chronic kidney disease, stage 3 (moderate); N25.81 Secondary hyperparathyroidism of renal origin; Z96.652 Presence of left artificial knee joint; Z93.2 Ileostomy status; Z90.49 Acquired absence of other specified parts of digestive tract; I25.2 Old myocardial infarction; Z86.718 Personal history of other venous thrombosis and embolism; Z85.528 Personal history of other malignant neoplasm of kidney; Z95.5 Presence of coronary angioplasty implant and graft; Z82.49 Family history of ischemic heart disease and other diseases of the circulatory system; Z79.899 Other long term (current) drug therapy; Z79.84 Long term (current) use of oral hypoglycemic drugs; Z88.6 Allergy status to analgesic agent; Z88.3 Allergy status to other anti-infective agents
CPT/HCPCS: 36415; 36591; 71045; 80048; 80053; 80076; 81001; 82550; 82553; 82962; 83735; 83970; 84100; 84439; 84443; 84484; 85025; 85610; 85730; 87086; 93005; 93010; 96361; 96374; 96375; 99285; J0610; J1170; J1265; J1644; J1815; J1940; J3010; J3475; J3490; J7030

== ENCOUNTER 2019-01-30 14:03 | Inpatient (IN) | payer MEDICARE, MEDICAID ==
[2019-01-30] MEDS ORDERED: ASPIRIN 81 MG TABLET, CHEWABLE PO ONE (14:41)
--- NOTE | 2019-01-30 14:45 | ER Document Report ---
ED Medical Screen (RME) - General Chief Complaint: Chest Pain Stated Complaint: CHEST PAIN Time Seen by Provider: 01/30/19 14:37 Primary Care Provider: LISA MATA MD [Primary Care Provider] - Follow up as needed Mode of Arrival: Ambulatory Information source: Patient TRAVEL OUTSIDE OF THE [place] IN LAST 30 DAYS: No - HPI Patient complains to provider of: CP Notes: 01/30/19 14:43 Patient here with complaints of left-sided chest pain. Chest pain started last evening. Been constant. She does complain of some mild shortness of breath. The patient has had prior [place] in the past. She has a history of renal disease as well. She does not require dialysis at this point. She has history of car diomyopathy as well. Exam No distress, nontoxic-appearing. Lungs clear and equal throughout. Heart sounds normal. Plan CBC, CMP, CPK, CK-MB, troponin, EKG. Chest x-ray, BNP. An initial examination was made on the patient as part of the triage process, and it was determined a more comprehensive evaluation was necessary. Initial labs were ordered and patient was transferred to another provider in the ED who assumed care and finished evaluation and plan. - Related Data Allergies/Adverse Reactions: ciprofloxacin [From Cipro] Allergy (Severe, Verified 11/16/18 14:04) Hallucinations morphine [Morphine] Allergy (Unknown, Verified 11/16/18 14:04) Past Medical History - Past Medical History Cardiac Medical History: Reports: Hx Atrial Fibrillation, Hx Coronary Artery Disease, Hx DVT, Hx Heart Attack - 2002, Hx Hypercholesterolemia, Hx Hypertension Pulmonary Medical History: Reports: Hx Pneumonia - 2006 Neurological Medical History: Endocrine Medical History: Reports: Hx Diabetes Mellitus Type 2 Renal/ Medical History: Reports: Hx Ovarian Cysts, Hx Renal Insufficiency. Denies: Hx Peritoneal Dialysis Malignancy Medical History: Reports: Hx Renal (Kidney) Cancer GI Medical History: Reports: Hx Gastroesophageal Reflux Disease, Hx Hiatal Hernia, Hx Irritable Bowel, Hx Ulcer Musculoskeltal Medical History: Reports Hx Arthritis - Back, Knees Psychiatric Medical History: Denies: Hx Depression Traumatic Medical History: Reports: Hx Fractures Past Surgical History: Reports: Hx Abdominal Surgery - COLOSTOMY. INTESTINAL RUPTURE, Hx Bowel Surgery - COLECTOMY/ileostomy, Hx Cardiac Catheterization, Hx Cardiac Surgery - STENTS, Hx Colostomy, Hx Coronary Stent, Hx Hysterectomy, Hx Ileostomy, Hx Orthopedic Surgery - L knee replacement, right ankle pin, Other - Tracheostomy 10 yrs ago - Immunizations Immunizations up to date: Yes Hx Diphtheria, Pertussis, Tetanus Vaccination: No History of Influenza Vaccine for 06/2017 - 11/2017 Season: Yes Influenza Administration Date for 06/2017 - 11/2017 Season: 06/06/17 Physical Exam - Vital signs Vitals: Temp Pulse Resp BP Pulse Ox 98.7 F 95 24 H 116/72 94 01/30/19 14:25 01/30/19 14:25 01/30/19 14:25 01/30/19 14:25 01/30/19 14:25 Course - Vital Signs Vital signs: Temp Pulse Resp BP Pulse Ox 98.7 F 95 24 H 116/72 94 01/30/19 14:25 01/30/19 14:25 01/30/19 14:25 01/30/19 14:25 01/30/19 14:25 Doctor's Discharge - Discharge Referrals: LISA MATA MD [Primary Care Provider] - Follow up as needed
--- NOTE | 2019-01-30 15:15 | RADIOLOGY REPORT (SQ) ---
EXAM DESCRIPTION: CHEST SINGLE VIEW COMPLETED DATE/TIME: 01/30/2019 3:08 pm REASON FOR STUDY: CP COMPARISON: 12/09/2018 EXAM PARAMETERS: NUMBER OF VIEWS: One view. TECHNIQUE: Single frontal radiographic view of the chest acquired. RADIATION DOSE: NA LIMITATIONS: None. FINDINGS: LUNGS AND PLEURA: No opacities, masses or pneumothorax. No pleural effusion. MEDIASTINUM AND HILAR STRUCTURES: No masses. Contour normal. HEART AND VASCULAR STRUCTURES: Cardiomegaly. BONES: No acute findings. HARDWARE: None in the chest. OTHER: No other significant finding. IMPRESSION: Cardiomegaly without acute abnormality of the lungs. TECHNICAL DOCUMENTATION: JOB ID: [id number] [employer]- All Rights Reserved Reading location - IP/workstation name: [email or web address]
[2019-01-30] MEDS ORDERED: FENTANYL CITRATE INJ/PF 100 MCG/2 ML AMPUL IV ONE (18:18)
[2019-01-30 18:21] LABS: ALANINE AMINOTRANSFERASE 58 U/L (9-52); ALBUMIN 4.5 g/dL (3.5-5.0); ALKALINE PHOSPHATASE 107 U/L (38-126); ANION GAP 14 (5-19); ASPARTATE AMINO TRANSFERASE 63 U/L (14-36); BILIRUBIN,DIRECT 0.3 mg/dL (0.0-0.4); BILIRUBIN,TOTAL 0.5 mg/dL (0.2-1.3); BLOOD UREA NITROGEN 59 mg/dL (7-20); CARBON DIOXIDE 15 mmol/L (22-30); CHLORIDE 105 mmol/L (98-107); CREATINE KINASE 180 U/L (30-135); GLUCOSE 110 mg/dL (75-110); SODIUM 133.9 mmol/L (137-145); TOTAL PROTEIN 8.5 g/dL (6.3-8.2)
[2019-01-30 18:24] LABS: POTASSIUM 6.5 mmol/L (3.6-5.0)
[2019-01-30] MEDS ORDERED: RINGERS SOLUTION,LACTATED 1,000 ML IV ONE (18:29)
[2019-01-30] MEDS ORDERED: CALCIUM GLUCONATE 1000 MG/10 ML INJ IV ONE (18:32)
[2019-01-30] MEDS ORDERED: INSULIN REG, HUMAN 100 UNIT/ML 3 ML VIAL (PYX) IV ONE (18:32)
[2019-01-30] MEDS ORDERED: DEXTROSE 50%-WATER 25 GM/50 ML DISP.SYRIN IV ONE (18:33)
[2019-01-30 18:42] LABS: ABSOLUTE EOSINOPHILS # (AUTO) 0.1 10^3/uL (0.0-0.6); ABSOLUTE LYMPHOCYTES (AUTO) 1.2 10^3/uL (0.5-4.7); ABSOLUTE NEUT (AUTO) 5.4 10^3/uL (1.7-8.2); BASOPHILS % (AUTO) 0.5 % (0-2); EOSINOPHILS % (AUTO) 1.8 % (0-6); HEMOGLOBIN 12.6 g/dL (12.0-15.5); LYMPHOCYTES % (AUTO) 15.9 % (13-45); MEAN CORPUSCULAR HEMOGLOBIN 30.5 pg (27.0-33.4); MEAN CORPUSCULAR HGB CONC 32.2 g/dL (32.0-36.0); MEAN CORPUSCULAR VOLUME 95 fl (80-97); MONOCYTES % (AUTO) 12.5 % (3-13); PLATELET COUNT 197 10^3/uL (150-450); RED BLOOD COUNT 4.13 10^6/uL (3.72-5.28); RED CELL DISTRIBUTION WIDTH 17.3 % (11.5-14.0); SEGMENTED NEUTROPHILS % (AUTO) 69.3 % (42-78); TOTAL CELLS COUNTED % (AUTO) 100 %; WHITE BLOOD COUNT 7.8 10^3/uL (4.0-10.5)
[2019-01-30 19:13] LABS: CREATINE KINASE MB 3.47 ng/mL (<4.55); NT PRO BNP 787 pg/mL (5-900)
[2019-01-30 19:15] LABS: TROPONIN I < 0.012 ng/mL
--- NOTE | 2019-01-30 19:16 | ER Document Report ---
ED General - General Chief Complaint: Chest Pain Stated Complaint: CHEST PAIN Time Seen by Provider: 01/30/19 14:37 Mode of Arrival: Ambulatory Notes: Patient is a 63-year-old female presents to the emergency department for left- sided chest pain. Patient states left-sided chest pain started last night when she was sitting around. Patient states "now that I think about it it started when I had a coughing episode." Patient states the pain increases when she takes a deep breath, upon movement, palpation and with coughing. Patient is denying any nausea, vomiting, diarrhea. She is admitting to generalized cough and congestion but is denying fever. Patient states intermittently she does have some shortness of breath but only during her coughing episodes. Patient states she does not have a adult education manager her primary care provider is Dr. Barakat. Patient states she has not been drinking fluids like she normally should. States she has noticed a decreased output in her ileostomy bag. Past medical history: Coronary artery disease, [place], hypertension, congestive heart failure, diabetes, ejection fraction of 40% noted by Dr. Bergman on 11/21/2018 via stress test. TRAVEL OUTSIDE OF THE [place] IN LAST 30 DAYS: No - Related Data Allergies/Adverse Reactions: ciprofloxacin [From Cipro] Allergy (Severe, Verified 11/16/18 14:04) Hallucinations morphine [Morphine] Allergy (Unknown, Verified 11/16/18 14:04) Past Medical History - General Information source: Patient - Social History Smoking Status: Unknown if Ever Smoked Chew tobacco use (# tins/day): No Frequency of alcohol use: None Drug Abuse: None Family History: Reviewed & Not Pertinent, Hypertension Patient has suicidal ideation: No Patient has homicidal ideation: No - Past Medical History Cardiac Medical History: Reports: Hx Atrial Fibrillation, Hx Coronary Artery Disease, Hx DVT, Hx Heart Attack - 2002, Hx Hypercholesterolemia, Hx Hypertension Pulmonary Medical History: Reports: Hx Pneumonia - 2006 Neurological Medical History: Endocrine Medical History: Reports: Hx Diabetes Mellitus Type 2 Renal/ Medical History: Reports: Hx Ovarian Cysts, Hx Renal Insufficiency. Denies: Hx Peritoneal Dialysis Malignancy Medical History: Reports: Hx Renal (Kidney) Cancer GI Medical History: Reports: Hx Gastroesophageal Reflux Disease, Hx Hiatal Hernia, Hx Irritable Bowel, Hx Ulcer Musculoskeletal Medical History: Reports Hx Arthritis - Back, Knees Psychiatric Medical History: Denies: Hx Depression Traumatic Medical History: Reports: Hx Fractures Past Surgical History: Reports: Hx Abdominal Surgery - COLOSTOMY. INTESTINAL RUPTURE, Hx Bowel Surgery - COLECTOMY/ileostomy, Hx Cardiac Catheterization, Hx Cardiac Surgery - STENTS, Hx Colostomy, Hx Coronary Stent, Hx Hysterectomy, Hx Ileostomy, Hx Orthopedic Surgery - L knee replacement, right ankle pin, Other - Tracheostomy 10 yrs ago - Immunizations Immunizations up to date: Yes Hx Diphtheria, Pertussis, Tetanus Vaccination: No Hx Pneumococcal Vaccination: 09/19/13 Review of Systems - Review of Systems Constitutional: denies: Fever EENT: See HPI Cardiovascular: See HPI Respiratory: See HPI Gastrointestinal: See HPI Genitourinary: No symptoms reported Female Genitourinary: No symptoms reported Musculoskeletal: See HPI Skin: No symptoms reported Hematologic/Lymphatic: No symptoms reported Neurological/Psychological: No symptoms reported Physical Exam - Vital signs Vitals: Temp Pulse Resp BP Pulse Ox 98.7 F 95 24 H 116/72 94 01/30/19 14:25 01/30/19 14:01/30/19 14:01/30/19 14:01/30/19 14:25 - Notes Notes: GENERAL: Morbidly obese alert, interacts well. No acute distress, dry cough noted on exam. HEAD: Normocephalic, atraumatic. EYES: Pupils equal, round, and reactive to light. Extraocular movements intact. ENT: Oral mucosa dry, tongue midline. NECK: Full range of motion. Supple. Trachea midline. LUNGS: Clear to auscultation bilaterally, no wheezes, rales, or rhonchi. No respiratory distress. HEART: Regular rate and rhythm. No murmur ABDOMEN: Soft, non-tender. Non-distended. Bowel sounds present in all 4 quadrants. ileostomy bag noted center of abdomen EXTREMITIES: Moves all 4 extremities spontaneously. No edema, normal radial and dorsalis pedis pulses bilaterally. No cyanosis. BACK: no cervical, thoracic, lumbar midline tenderness. No saddle anesthesia, normal distal neurovascular exam. NEUROLOGICAL: Alert and oriented x3. Normal speech. cranial nerves II through XII grossly intact. PSYCH: Normal affect, normal mood. SKIN: Warm, dry, normal turgor. No rashes or lesions noted. Course - Re-evaluation Re-evalutation: Patient's initial lab results do show potassium of 6.5 with an increase in patient's creatinine. I have asked the charge nurse if we have any dialysis beds in this facility. Charge nurse says we do not have any dialysis beds. I have looked back at patient's past charts. It appears that patient does have an increase in her kidney function with an increase in her potassium recently. At that point time she was treated with fluid rehydration which was easily corrected. Patient never had to undergo dialysis. I discussed transfer of this patient to another facility if needed due to dialysis needs. Patient wishes for me to contact her primary care provider Dr. Barakat for further plan. 01/30/19 19:32 Discussed this case with Dr. Barakat who does not feel that this patient will need dialysis, he is willing to accept the patient to [facility]. As I walk into talk to the patient about the plan for admission she is currently undergoing the treatments for hyperkalemia and dehydration by nursing staff. Patient remains hemodynamically stable. - Vital Signs Vital signs: Temp Pulse Resp BP Pulse Ox 98.7 F 95 24 H 116/72 94 01/30/19 14:25 01/30/19 14:25 01/30/19 14:25 01/30/19 14:25 01/30/19 14:25 - Laboratory Result Diagrams: 01/30/19 18:10 01/30/19 17:57 Laboratory results interpreted by me: 01/30/19 01/30/19 17:57 18:10 RDW 17.3 H Sodium 133.9 L Potassium 6.5 H* Carbon Dioxide 15 L BUN 59 H Creatinine 4.65 H Est GFR ( Amer) 12 L Est GFR (Non-Af Amer) 10 L AST 63 H ALT 58 H Creatine Kinase 180 H Total Protein 8.5 H Discharge - Discharge Clinical Impression: Hyperkalemia, Acute kidney injury Chest pain Qualifiers: Chest pain type: unspecified Qualified Code(s): R07.9 - Chest pain, unspecified Condition: Stable Disposition: ADMITTED INPATIENT Admitting Provider: Yuval Unit Admitted: [facility]
[2019-01-30] MEDS ORDERED: DEXTROSE 5%-WATER 1000 ML 1,000 ML with SODIUM BICARBONATE 150 MEQ IV PRN ×2 (19:26)
[2019-01-30 20:15] LABS: INTERNATIONAL RATION (INR) 1.11; PROTHROMBIN TIME 14.9 SEC (11.4-15.4)
[2019-01-30 20:16] LABS: PARTIAL THROMBOPLASTIN TIME 26.9 SEC (23.5-35.8)
[2019-01-30 20:40] LABS: FREE T4 (FREE THYROXINE) 0.96 ng/dL (0.78-2.19)
[2019-01-30 20:54] LABS: THYROID STIMULATING HORMONE 0.6 uIU/mL (0.47-4.68)
[2019-01-30] MEDS ORDERED: SODIUM BICARBONATE 8.4% INJ 50 MEQ/50 ML DISP.SYRIN ONE ×3 (21:22→21:26)
[2019-01-30] MEDS: DEXTROSE 5%-WATER 1000 ML 1,000 ML with SODIUM BICARBONATE 150 MEQ IV PRN ×2 (21:55)
--- NOTE | 2019-01-30 22:10 | RADIOLOGY REPORT (SQ) ---
EXAM DESCRIPTION: US RETROPERITONEUM LIMITED COMPLETED DATE/TME: 01/30/2019 00:00 CLINICAL HISTORY: 63 years, Female, ACUTE KIDNEY INJURY COMPARISON: 11/17/2018 ultrasound TECHNIQUE: Transverse longitudinal sonographic images of the kidneys and urinary bladder LIMITATIONS: None. FINDINGS: The right kidney has maximal diameter of 9.2 cm, the left 9.9 cm. There is a simple exophytic 1.2 x 1.7 cm left renal cyst. No renal calculus or mass. No perinephric fluid collection. The cortical medullary differentiation is preserved bilaterally. Mild prominence of the renal pelves bilaterally, unchanged from the prior. Urinary bladder is grossly unremarkable IMPRESSION: Mild prominence of the renal pelves bilaterally, similar to the prior exam. Findings could reflect extrarenal pelves versus mild nonspecific hydronephrosis. Simple left renal cyst. copyright 2010 [employer]- All Rights Reserved
[2019-01-30 22:43] LABS: ALANINE AMINOTRANSFERASE 55 U/L (9-52); ALBUMIN 4.4 g/dL (3.5-5.0); ALKALINE PHOSPHATASE 110 U/L (38-126); AMYLASE 148 U/L (30-110); ANION GAP 16 (5-19); ASPARTATE AMINO TRANSFERASE 55 U/L (14-36); BILIRUBIN,DIRECT 0.4 mg/dL (0.0-0.4); BILIRUBIN,TOTAL 0.4 mg/dL (0.2-1.3); BLOOD UREA NITROGEN 54 mg/dL (7-20); CARBON DIOXIDE 15 mmol/L (22-30); CHLORIDE 104 mmol/L (98-107); CREATINE KINASE 193 U/L (30-135); GLUCOSE 118 mg/dL (75-110); LIPASE 495.5 U/L (23-300); PHOSPHORUS 6.1 mg/dL (2.5-4.5); SODIUM 134.7 mmol/L (137-145)
[2019-01-30 22:49] LABS: POTASSIUM 5.4 mmol/L (3.6-5.0)
[2019-01-30] MEDS: HYDROMORPHONE HCL INJ/PF 2 MG/ML AMPULE IV PRN (22:59)
[2019-01-30] MEDS: HEPARIN SOD (PORCINE) 5,000 UNIT/ML 1 ML SYRINGE SUBCUT SCH (23:00)
[2019-01-31 01:18] LABS: ALANINE AMINOTRANSFERASE 50 U/L (9-52); ALKALINE PHOSPHATASE 97 U/L (38-126); ANION GAP 13 (5-19); ASPARTATE AMINO TRANSFERASE 52 U/L (14-36); BILIRUBIN,DIRECT 0.3 mg/dL (0.0-0.4); BILIRUBIN,TOTAL 0.4 mg/dL (0.2-1.3); BLOOD UREA NITROGEN 55 mg/dL (7-20); CALCIUM 9.7 mg/dL (8.4-10.2); CARBON DIOXIDE 18 mmol/L (22-30); CHLORIDE 103 mmol/L (98-107); CREATINE KINASE 186 U/L (30-135); GLUCOSE 119 mg/dL (75-110); POTASSIUM 5.3 mmol/L (3.6-5.0); SODIUM 133.6 mmol/L (137-145); TOTAL PROTEIN 7.8 g/dL (6.3-8.2)
[2019-01-31 01:27] LABS: ARTERIAL BLOOD BASE EXCESS -9.7 mmol/L; ARTERIAL BLOOD H2CO3 1.35 mmol/L (1.05-1.35); ARTERIAL BLOOD HCO3 17.8 mmol/L (20-24); ARTERIAL BLOOD O2 SATURATION 92.4 % (94-98); ARTERIAL BLOOD PCO2 44.9 mmHg (35-45); ARTERIAL BLOOD PH 7.22 (7.35-7.45); ARTERIAL BLOOD TOTAL CO2 19.2 mmol/L (21-25)
[2019-01-31 01:28] LABS: ARTERIAL BLOOD FIO2 21%
[2019-01-31 01:30] LABS: CREATINE KINASE MB 3.49 ng/mL (<4.55)
[2019-01-31 01:35] LABS: TROPONIN I < 0.012 ng/mL
[2019-01-31] MEDS ORDERED: SODIUM BICARBONATE 8.4% INJ 50 MEQ/50 ML DISP.SYRIN ONE ×2 (05:08→05:11)
[2019-01-31 05:14] LABS: APPEARANCE,URINE SLIGHTLY-CLOUDY; BILIRUBIN,URINE NEGATIVE (NEGATIVE); COLOR,URINE YELLOW; GLUCOSE, URINE NEGATIVE (NEGATIVE); KETONES,URINE NEGATIVE (NEGATIVE); LEUKOCYTE ESTERASE,URINE LARGE (NEGATIVE); NITRITE,URINE NEGATIVE (NEGATIVE); PROTEIN,URINE 30 mg/dL (NEGATIVE); UROBILINOGEN,URINE NEGATIVE mg/dL (<2.0)
[2019-01-31 05:20] LABS: URINE AMPHETAMINES SCREEN NEGATIVE; URINE BARBITURATES SCREEN NEGATIVE; URINE BENZODIAZEPINES SCREEN NEGATIVE; URINE COCAINE SCREEN NEGATIVE; URINE MARIJUANA (THC) SCREEN NEGATIVE; URINE METHADONE SCREEN NEGATIVE; URINE PHENCYCLIDINE SCREEN NEGATIVE
[2019-01-31] MEDS: HYDROMORPHONE HCL INJ/PF 2 MG/ML AMPULE IV PRN ×4 (05:23→22:05)
[2019-01-31] MEDS: DEXTROSE 5%-WATER 1000 ML 1,000 ML with SODIUM BICARBONATE 150 MEQ IV PRN ×4 (05:24→14:48)
[2019-01-31] MEDS: HEPARIN SOD (PORCINE) 5,000 UNIT/ML 1 ML SYRINGE SUBCUT SCH ×3 (05:24→22:07)
[2019-01-31 06:54] LABS: ABSOLUTE EOSINOPHILS # (AUTO) 0.2 10^3/uL (0.0-0.6); ABSOLUTE MONOCYTES (AUTO) 0.6 10^3/uL (0.1-1.4); ABSOLUTE NEUT (AUTO) 3.8 10^3/uL (1.7-8.2); BASOPHILS % (AUTO) 0.5 % (0-2); EOSINOPHILS % (AUTO) 3.2 % (0-6); HEMATOCRIT 35.3 % (36.0-47.0); HEMOGLOBIN 11.5 g/dL (12.0-15.5); LYMPHOCYTES % (AUTO) 17.3 % (13-45); MEAN CORPUSCULAR HEMOGLOBIN 30.4 pg (27.0-33.4); MEAN CORPUSCULAR HGB CONC 32.6 g/dL (32.0-36.0); MEAN CORPUSCULAR VOLUME 93 fl (80-97); MONOCYTES % (AUTO) 11.6 % (3-13); PLATELET COUNT 166 10^3/uL (150-450); RED BLOOD COUNT 3.78 10^6/uL (3.72-5.28); RED CELL DISTRIBUTION WIDTH 17.1 % (11.5-14.0); SEGMENTED NEUTROPHILS % (AUTO) 67.4 % (42-78); TOTAL CELLS COUNTED % (AUTO) 100 %; WHITE BLOOD COUNT 5.6 10^3/uL (4.0-10.5)
[2019-01-31 07:15] LABS: ALANINE AMINOTRANSFERASE 56 U/L (9-52); ALBUMIN 3.8 g/dL (3.5-5.0); ALKALINE PHOSPHATASE 91 U/L (38-126); ANION GAP 13 (5-19); ASPARTATE AMINO TRANSFERASE 61 U/L (14-36); BILIRUBIN,DIRECT 0.4 mg/dL (0.0-0.4); BILIRUBIN,TOTAL 0.6 mg/dL (0.2-1.3); BLOOD UREA NITROGEN 55 mg/dL (7-20); CALCIUM 9.1 mg/dL (8.4-10.2); CARBON DIOXIDE 21 mmol/L (22-30); CHLORIDE 101 mmol/L (98-107); CREATINE KINASE 181 U/L (30-135); GLUCOSE 115 mg/dL (75-110); POTASSIUM 4.8 mmol/L (3.6-5.0); SODIUM 134.7 mmol/L (137-145); TOTAL PROTEIN 7.4 g/dL (6.3-8.2); TRIGLYCERIDES 162 mg/dL (<150)
[2019-01-31 07:28] LABS: DIRECT LDL 57 mg/dL (<100)
[2019-01-31 07:32] LABS: VLDL CHOLESTEROL 32.4 mg/dL (10-31)
[2019-01-31 07:38] LABS: CREATINE KINASE MB 3.29 ng/mL (<4.55)
[2019-01-31 07:39] LABS: TROPONIN I < 0.012 ng/mL
--- NOTE | 2019-01-31 07:41 | EKG REPORT ---
SEVERITY:- ABNORMAL ECG - SINUS RHYTHM FIRST DEGREE AV BLOCK LEFT VENTRICULAR HYPERTROPHY PROBABLE INFERIOR INFARCT, OLD CONSIDER ANTERIOR INFARCT : Confirmed by: Cari Sharp MD 31-Jan-2019 07:41:08
[2019-01-31 19:01] LABS: ALANINE AMINOTRANSFERASE 58 U/L (9-52); ALBUMIN 3.7 g/dL (3.5-5.0); ALKALINE PHOSPHATASE 102 U/L (38-126); ANION GAP 14 (5-19); ASPARTATE AMINO TRANSFERASE 73 U/L (14-36); BILIRUBIN,DIRECT 0.3 mg/dL (0.0-0.4); BILIRUBIN,TOTAL 0.3 mg/dL (0.2-1.3); BLOOD UREA NITROGEN 47 mg/dL (7-20); CALCIUM 8.6 mg/dL (8.4-10.2); CARBON DIOXIDE 23 mmol/L (22-30); CHLORIDE 99 mmol/L (98-107); GLUCOSE 163 mg/dL (75-110); POTASSIUM 4.6 mmol/L (3.6-5.0); SODIUM 136.2 mmol/L (137-145)
[2019-01-31 19:11] LABS: CREATINE KINASE MB 2.49 ng/mL (<4.55)
[2019-01-31 19:14] LABS: TROPONIN I < 0.012 ng/mL
[2019-01-31] MEDS ORDERED: (PENDING PHARMACY ID) (Pravastatin Sodium [Pravachol] 40 MG) PO SCH (20:45)
[2019-01-31] MEDS ORDERED: (PENDING PHARMACY ID) (Dapagliflozin Propanediol [Farxiga] 5 MG) PO SCH (20:45)
[2019-01-31] MEDS ORDERED: (PENDING PHARMACY ID) (Betamet Diprop/Prop Gly [Betamethasone Dp Aug 0.05% Cream] 1 APPLIC TP SCH (20:45)
[2019-01-31] MEDS ORDERED: (PENDING PHARMACY ID) (Metoprolol Succinate [Toprol Xl] 200 MG) PO SCH (20:45)
[2019-01-31] MEDS ORDERED: (PENDING PHARMACY ID) (Clobetasol Propionate/Emoll [Clobetasol Emollient 0.05% Crm] 1 APPL TP SCH (20:45)
[2019-01-31] MEDS ORDERED: INSULIN GLARGINE HUM REC ANLOG 60 UNIT SQ SCH (20:45)
[2019-01-31] MEDS ORDERED: (PENDING PHARMACY ID) (Levocetirizine Dihydrochloride [Allergy Relief] 5 MG) PO SCH (20:45)
[2019-01-31] MEDS ORDERED: CALCITRIOL 0.5 MG PO SCH (20:45)
[2019-01-31] MEDS ORDERED: INSULIN ASPART 12 UNIT SQ SCH (20:45)
--- NOTE | 2019-01-31 20:49 | PDOC H&P ---
History of Present Illness Admission Date/PCP: 01/30/19 19:30 LISA MATA MD History of Present Illness: RANDEE VELÁSQUEZ is a 63 year old female, Patient is well-known to me, she has a history of chronic kidney disease stage III, ischemic cardiomyopathy, she came to emergency room for evaluation of chest symptoms, she was found to have elevated serum creatinine, 4.65 the serum potassium was 6.5, she was also acidotic, She has metabolic acidosis with respiratory acidosis, the expected PCO2 40 degree of acidosis should be 32.72 -36.7 but the measured PCO2 was 44 suggesting a component of respiratory acidosis. This could be from obesity hypoventilation syndrome.She has a history of high output ileostomy bag due to total colectomy, with history of recurrent acute kidney injury that usually typically is corrected with hydration Past Medical History Cardiac Medical History: Reports: Atrial Fibrillation, Coronary Artery Disease, DVT, Myocardial Infarction - 2002, Hyperlipidema, Hypertension Pulmonary Medical History: Reports: Pneumonia - 2006 Neurological Medical History: Endocrine Medical History: Reports: Diabetes Mellitus Type 2 Malignancy Medical History: Reports: Renal (Kidney) Cancer GI Medical History: Reports: Gastroesophageal Reflux Disease, Hiatal Hernia Musculoskeltal Medical History: Reports: Arthritis - Back, Knees Psychiatric Medical History: Denies: Depression Hematology: Reports: Anemia Past Surgical History Past Surgical History: Reports: Cardiac Catheterization, Colostomy, Coronary Luiz nt, Hysterectomy, Ileostomy, Orthopedic Surgery - L knee replacement, right ankle pin, Other - Tracheostomy 10 yrs ago Social History Smoking Status: Former Smoker Frequency of Alcohol Use: None Hx Recreational Drug Use: No Drugs: None Hx Prescription Drug Abuse: No Family History Family History: Reviewed & Not Pertinent, Hypertension Parental Family History Reviewed: Yes Children Family History Reviewed: Yes Sibling(s) Family History Reviewed.: Yes Medication/Allergy Home Medications: Allopurinol [Zyloprim 100 mg Tablet] 100 mg PO DAILY 01/31/19 Betamet Diprop/Prop Gly [Betamethasone Dp Aug 0.05% Cream] 1 applic TP BID 01/31/19 Calcitriol [Rocaltrol 0.5 mcg Capsule] 0.5 mg PO DAILY 01/31/19 Clobetasol Propionate/Emoll [Clobetasol Emollient 0.05% Crm] 1 applic TP BID 01/31/19 Clotrimazole [Itch Relief] 1 applic TP BID 01/31/19 Colchicine [Colcrys 0.6 mg Tablet] 0.6 mg PO DAILY 01/31/19 Dapagliflozin Propanediol [Farxiga] 5 mg PO DAILY 01/31/19 Ergocalciferol (Vitamin D2) [Drisdol 50,000 Unit (1.25MG) Capsule] 50,000 unit PO SA@1000 01/31/19 Exenatide Microspheres [Bydureon Pen] 2 mg SQ KYLE@1000 01/31/19 Gabapentin [Neurontin] 600 mg PO QID 01/31/19 Hydralazine HCl [Apresoline 50 mg Tablet] 50 mg PO TID 01/31/19 Insulin Aspart [Novolog Flexpen] 12 unit SQ TID 01/31/19 Insulin Glargine,Hum.rec.anlog [Basaglar Kwikpen U-100] 60 unit SQ BID 01/31/19 Levocetirizine Dihydrochloride [Allergy Relief] 5 mg PO QPM 01/31/19 Metoprolol Succinate [Toprol Xl] 200 mg PO DAILY 01/31/19 Nystatin [Mycostatin Cream] 1 applic TP BID 01/31/19 Nystatin [Mycostatin Topical Powder 15 gm] 1 applic TP BID 01/31/19 Oxycodone HCl [Oxy-Ir 5 mg Tablet] 10 mg PO Q8HP PRN 01/31/19 Oxycodone Myristate [Xtampza ER] 18 mg PO Q12 01/31/19 Pravastatin Sodium [Pravachol] 40 mg PO DAILY 01/31/19 Sitagliptin Phosphate [Januvia 50 mg Tablet] 50 mg PO DAILY 01/31/19 Sodium Bicarbonate [Sodium Bicarbonate 650 mg Tablet] 1,300 mg PO TID 01/31/19 Allergies/Adverse Reactions: ciprofloxacin [From Cipro] Allergy (Severe, Verified 11/16/18 14:04) Hallucinations morphine [Morphine] Allergy (Unknown, Verified 11/16/18 14:04) Review of Systems Constitutional: PRESENT: chills Eyes: ABSENT: visual disturbances Ears: ABSENT: hearing changes Cardiovascular: PRESENT: chest pain Respiratory: ABSENT: cough, hemoptysis Gastrointestinal: ABSENT: abdominal pain, constipation, diarrhea, hematemesis, hematochezia, nausea, vomiting Genitourinary: ABSENT: dysuria, hematuria Musculoskeletal: ABSENT: joint swelling Integumentary: ABSENT: rash, wounds Neurological: ABSENT: abnormal gait, abnormal speech, confusion, dizziness, focal weakness, syncope Psychiatric: ABSENT: anxiety, depression, homidical ideation, suicidal ideation Endocrine: ABSENT: cold intolerance, heat intolerance, menstrual abnormalities, polydipsia, polyuria Hematologic/Lymphatic: ABSENT: easy bleeding, easy bruising, lymphadenopathy Physical Exam Vital Signs: Temp Pulse Resp BP Pulse Ox 98.4 F 96 16 119/55 L 94 01/31/19 15:40 01/31/19 15:40 01/31/19 15:40 01/31/19 15:40 01/31/19 15:40 Intake & Output 01/30/19 01/31/19 02/01/19 06:59 06:59 06:59 Intake Total 1350 894 Output Total 150 500 Balance 1200 394 Weight 125.9 kg General appearance: PRESENT: no acute distress, well-developed, well-nourished Head exam: PRESENT: atraumatic, normocephalic Eye exam: PRESENT: conjunctiva pink, EOMI, PERRLA Ear exam: PRESENT: normal external ear exam Mouth exam: PRESENT: moist, tongue midline Neck exam: PRESENT: full ROM Respiratory exam: PRESENT: clear to auscultation stephen Cardiovascular exam: PRESENT: RRR, +S1, +S2 Pulses: PRESENT: normal dorsalis pedis pul, +2 pedal pulses bilateral Vascular exam: PRESENT: normal capillary refill GI/Abdominal exam: PRESENT: normal bowel sounds, soft Rectal exam: PRESENT: deferred Neurological exam: PRESENT: alert, awake, oriented to person, oriented to place, oriented to time, oriented to situation, CN II-XII grossly intact Psychiatric exam: PRESENT: appropriate affect, normal mood Skin exam: PRESENT: dry, intact, warm Results Laboratory Results: 01/31/19 06:35 01/31/19 17:50 01/30/19 01/30/19 01/30/19 17:57 21:51 21:51 WBC RBC Hgb Hct MCV MCH MCHC RDW Plt Count Seg Neutrophils % Lymphocytes % Monocytes % Eosinophils % Basophils % Absolute Neutrophils Absolute Lymphocytes Absolute Monocytes Absolute Eosinophils Absolute Basophils Carbonic Acid HCO3/H2CO3 Ratio ABG pH ABG pCO2 ABG pO2 ABG HCO3 ABG O2 Saturation ABG Base Excess FiO2 Sodium 134.7 L Potassium 5.4 H D Chloride 104 Carbon Dioxide 15 L Anion Gap 16 BUN 54 H Creatinine 4.45 H Est GFR ( Amer) 12 L Est GFR (Non-Af Amer) 10 L Glucose 118 H Calcium 10.0 Phosphorus 6.1 H Magnesium 2.0 Total Bilirubin 0.4 AST 55 H ALT 55 H Alkaline Phosphatase 110 Ammonia < 8.7 L Total Protein 8.0 Albumin 4.4 Triglycerides Cholesterol LDL Cholesterol Direct VLDL Cholesterol HDL Cholesterol Amylase 148 H Lipase 495.5 H TSH 0.60 Free T4 0.96 Urine Color Urine Appearance Urine pH Ur Specific [place] Urine Protein Urine Glucose (UA) Urine Ketones Urine Blood Urine Nitrite Ur Leukocyte Esterase Urine WBC (Auto) Urine RBC (Auto) 01/31/19 01/31/19 01/31/19 00:45 01:00 04:45 WBC RBC Hgb Hct MCV MCH MCHC RDW Plt Count Seg Neutrophils % Lymphocytes % Monocytes % Eosinophils % Basophils % Absolute Neutrophils Absolute Lymphocytes Absolute Monocytes Absolute Eosinophils Absolute Basophils Carbonic Acid 1.35 HCO3/H2CO3 Ratio 13:1 ABG pH 7.22 L ABG pCO2 44.9 ABG pO2 76.0 L ABG HCO3 17.8 L ABG O2 Saturation 92.4 L ABG Base Excess -9.7 FiO2 21% Sodium 133.6 L Potassium 5.3 H Chloride 103 Carbon Dioxide 18 L Anion Gap 13 BUN 55 H Creatinine 4.06 H Est GFR ( Amer) 13 L Est GFR (Non-Af Amer) 11 L Glucose 119 H Calcium 9.7 Phosphorus Magnesium Total Bilirubin 0.4 AST 52 H ALT 50 Alkaline Phosphatase 97 Ammonia Total Protein 7.8 Albumin 4.0 Triglycerides Cholesterol LDL Cholesterol Direct VLDL Cholesterol HDL Cholesterol Amylase Lipase TSH Free T4 Urine Color YELLOW Urine Appearance SLIGHTLY-CLOUDY Urine pH 5.0 Ur Specific [place] 1.010 Urine Protein 30 H Urine Glucose (UA) NEGATIVE Urine Ketones NEGATIVE Urine Blood SMALL H Urine Nitrite NEGATIVE Ur Leukocyte Esterase LARGE H Urine WBC (Auto) 107 Urine RBC (Auto) 01/31/19 01/31/19 01/31/19 06:35 06:35 17:50 WBC 5.6 RBC 3.78 Hgb 11.5 L Hct 35.3 L MCV 93 MCH 30.4 MCHC 32.6 RDW 17.1 H Plt Count 166 Seg Neutrophils % 67.4 Lymphocytes % 17.3 Monocytes % 11.6 Eosinophils % 3.2 Basophils % 0.5 Absolute Neutrophils 3.8 Absolute Lymphocytes 1.0 Absolute Monocytes 0.6 Absolute Eosinophils 0.2 Absolute Basophils 0.0 Carbonic Acid HCO3/H2CO3 Ratio ABG pH ABG pCO2 ABG pO2 ABG HCO3 ABG O2 Saturation ABG Base Excess FiO2 Sodium 134.7 L 136.2 L Potassium 4.8 4.6 Chloride 101 99 Carbon Dioxide 21 L 23 Anion Gap 13 14 BUN 55 H 47 H Creatinine 3.51 H 2.85 H Est GFR ( Amer) 16 L 20 L Est GFR (Non-Af Amer) 13 L 17 L Glucose 115 H 163 H Calcium 9.1 8.6 Phosphorus Magnesium Total Bilirubin 0.6 0.3 AST 61 H 73 H ALT 56 H 58 H Alkaline Phosphatase 91 102 Ammonia Total Protein 7.4 7.0 Albumin 3.8 3.7 Triglycerides 162 H Cholesterol 137.10 LDL Cholesterol Direct 57 VLDL Cholesterol 32.4 H HDL Cholesterol 43 Amylase Lipase TSH Free T4 Urine Color Urine Appearance Urine pH Ur Specific [place] Urine Protein Urine Glucose (UA) Urine Ketones Urine Blood Urine Nitrite Ur Leukocyte Esterase Urine WBC (Auto) Urine RBC (Auto) 01/30/19 01/30/19 01/30/19 17:57 18:10 21:51 Creatine Kinase 180 H 193 H CK-MB (CK-2) 3.47 Troponin I < 0.012 NT-Pro-B Natriuret Pep 787 01/31/19 01/31/19 01/31/19 00:45 00:45 06:35 Creatine Kinase 186 H 181 H CK-MB (CK-2) 3.49 Troponin I < 0.012 NT-Pro-B Natriuret Pep 01/31/19 01/31/19 06:35 17:50 Creatine Kinase CK-MB (CK-2) 3.29 2.49 Troponin I < 0.012 < 0.012 NT-Pro-B Natriuret Pep Impressions: Renal Ultrasound 01/30/19 00:00 IMPRESSION: Mild prominence of the renal pelves bilaterally, similar to the prior exam. Findings could reflect extrarenal pelves versus mild nonspecific hydronephrosis. Simple left renal cyst. copyright 2010 [employer]- All Rights Reserved Chest X-Ray 01/30/19 14:41 IMPRESSION: Cardiomegaly without acute abnormality of the lungs. Assessment & Plan - Diagnosis (1) Acute kidney injury Is this a current diagnosis for this admission?: Yes Plan: This is most likely from dehydration start sodium bicarbonate infusion (2) Metabolic acidosis with respiratory acidosis Is this a current diagnosis for this admission?: Yes (3) Chronic kidney disease, stage 3 Is this a current diagnosis for this admission?: Yes (4) Obesity hypoventilation syndrome Is this a current diagnosis for this admission?: Yes (5) Chronic kidney disease, stage 3 Is this a current diagnosis for this admission?: Yes (6) Ischemic cardiomyopathy Is this a current diagnosis for this admission?: Yes
--- NOTE | 2019-01-31 20:53 | PDOC PROGRESS REPORT ---
Subjective Progress Note for:: 01/31/19 Subjective:: Patient was seen by the bedside, she was admitted yesterday for acute kidney injury, the kidney function continues to improve with hydration Reason For Visit: ACUTE KIDNEY INJURY, HYPERKALEMIA Physical Exam Vital Signs: Temp Pulse Resp BP Pulse Ox 98.4 F 96 16 119/55 L 94 01/31/19 15:40 01/31/19 15:40 01/31/19 15:40 01/31/19 15:40 01/31/19 15:40 Intake & Output 01/30/19 01/31/19 02/01/19 06:59 06:59 06:59 Intake Total 1350 894 Output Total 150 500 Balance 1200 394 Weight 125.9 kg General appearance: PRESENT: no acute distress Eye exam: PRESENT: PERRLA Respiratory exam: PRESENT: clear to auscultation stephen Cardiovascular exam: PRESENT: +S1, +S2 GI/Abdominal exam: PRESENT: soft Neurological exam: PRESENT: alert Results Laboratory Results: 01/31/19 06:35 01/31/19 17:50 01/30/19 01/30/19 01/30/19 17:57 21:51 21:51 WBC RBC Hgb Hct MCV MCH MCHC RDW Plt Count Seg Neutrophils % Lymphocytes % Monocytes % Eosinophils % Basophils % Absolute Neutrophils Absolute Lymphocytes Absolute Monocytes Absolute Eosinophils Absolute Basophils Carbonic Acid HCO3/H2CO3 Ratio ABG pH ABG pCO2 ABG pO2 ABG HCO3 ABG O2 Saturation ABG Base Excess FiO2 Sodium 134.7 L Potassium 5.4 H D Chloride 104 Carbon Dioxide 15 L Anion Gap 16 BUN 54 H Creatinine 4.45 H Est GFR ( Amer) 12 L Est GFR (Non-Af Amer) 10 L Glucose 118 H Calcium 10.0 Phosphorus 6.1 H Magnesium 2.0 Total Bilirubin 0.4 AST 55 H ALT 55 H Alkaline Phosphatase 110 Ammonia < 8.7 L Total Protein 8.0 Albumin 4.4 Triglycerides Cholesterol LDL Cholesterol Direct VLDL Cholesterol HDL Cholesterol Amylase 148 H Lipase 495.5 H TSH 0.60 Free T4 0.96 Urine Color Urine Appearance Urine pH Ur Specific [place] Urine Protein Urine Glucose (UA) Urine Ketones Urine Blood Urine Nitrite Ur Leukocyte Esterase Urine WBC (Auto) Urine RBC (Auto) 01/31/19 01/31/19 01/31/19 00:45 01:00 04:45 WBC RBC Hgb Hct MCV MCH MCHC RDW Plt Count Seg Neutrophils % Lymphocytes % Monocytes % Eosinophils % Basophils % Absolute Neutrophils Absolute Lymphocytes Absolute Monocytes Absolute Eosinophils Absolute Basophils Carbonic Acid 1.35 HCO3/H2CO3 Ratio 13:1 ABG pH 7.22 L ABG pCO2 44.9 ABG pO2 76.0 L ABG HCO3 17.8 L ABG O2 Saturation 92.4 L ABG Base Excess -9.7 FiO2 21% Sodium 133.6 L Potassium 5.3 H Chloride 103 Carbon Dioxide 18 L Anion Gap 13 BUN 55 H Creatinine 4.06 H Est GFR ( Amer) 13 L Est GFR (Non-Af Amer) 11 L Glucose 119 H Calcium 9.7 Phosphorus Magnesium Total Bilirubin 0.4 AST 52 H ALT 50 Alkaline Phosphatase 97 Ammonia Total Protein 7.8 Albumin 4.0 Triglycerides Cholesterol LDL Cholesterol Direct VLDL Cholesterol HDL Cholesterol Amylase Lipase TSH Free T4 Urine Color YELLOW Urine Appearance SLIGHTLY-CLOUDY Urine pH 5.0 Ur Specific [place] 1.010 Urine Protein 30 H Urine Glucose (UA) NEGATIVE Urine Ketones NEGATIVE Urine Blood SMALL H Urine Nitrite NEGATIVE Ur Leukocyte Esterase LARGE H Urine WBC (Auto) 107 Urine RBC (Auto) 6 01/31/19 01/31/19 01/31/19 06:35 06:35 17:50 WBC 5.6 RBC 3.78 Hgb 11.5 L Hct 35.3 L MCV 93 MCH 30.4 MCHC 32.6 RDW 17.1 H Plt Count 166 Seg Neutrophils % 67.4 Lymphocytes % 17.3 Monocytes % 11.6 Eosinophils % 3.2 Basophils % 0.5 Absolute Neutrophils 3.8 Absolute Lymphocytes 1.0 Absolute Monocytes 0.6 Absolute Eosinophils 0.2 Absolute Basophils 0.0 Carbonic Acid HCO3/H2CO3 Ratio ABG pH ABG pCO2 ABG pO2 ABG HCO3 ABG O2 Saturation ABG Base Excess FiO2 Sodium 134.7 L 136.2 L Potassium 4.8 4.6 Chloride 101 99 Carbon Dioxide 21 L 23 Anion Gap 13 14 BUN 55 H 47 H Creatinine 3.51 H 2.85 H Est GFR ( Amer) 16 L 20 L Est GFR (Non-Af Amer) 13 L 17 L Glucose 115 H 163 H Calcium 9.1 8.6 Phosphorus Magnesium Total Bilirubin 0.6 0.3 AST 61 H 73 H ALT 56 H 58 H Alkaline Phosphatase 91 102 Ammonia Total Protein 7.4 7.0 Albumin 3.8 3.7 Triglycerides 162 H Cholesterol 137.10 LDL Cholesterol Direct 57 VLDL Cholesterol 32.4 H HDL Cholesterol 43 Amylase Lipase TSH Free T4 Urine Color Urine Appearance Urine pH Ur Specific [place] Urine Protein Urine Glucose (UA) Urine Ketones Urine Blood Urine Nitrite Ur Leukocyte Esterase Urine WBC (Auto) Urine RBC (Auto) 01/30/19 01/30/19 01/30/19 17:57 18:10 21:51 Creatine Kinase 180 H 193 H CK-MB (CK-2) 3.47 Troponin I < 0.012 NT-Pro-B Natriuret Pep 787 01/31/19 01/31/19 01/31/19 00:45 00:45 06:35 Creatine Kinase 186 H 181 H CK-MB (CK-2) 3.49 Troponin I < 0.012 NT-Pro-B Natriuret Pep 01/31/19 01/31/19 06:35 17:50 Creatine Kinase CK-MB (CK-2) 3.29 2.49 Troponin I < 0.012 < 0.012 NT-Pro-B Natriuret Pep Impressions: Renal Ultrasound 01/30/19 00:00 IMPRESSION: Mild prominence of the renal pelves bilaterally, similar to the prior exam. Findings could reflect extrarenal pelves versus mild nonspecific hydronephrosis. Simple left renal cyst. copyright 2011 [employer]- All Rights Reserved Chest X-Ray 01/30/19 14:41 IMPRESSION: Cardiomegaly without acute abnormality of the lungs. Assessment & Plan - Diagnosis (1) Acute kidney injury Is this a current diagnosis for this admission?: Yes Plan: Continue treatment (2) Metabolic acidosis with respiratory acidosis Is this a current diagnosis for this admission?: Yes (3) Chronic kidney disease, stage 3 Is this a current diagnosis for this admission?: Yes (4) Obesity hypoventilation syndrome Is this a current diagnosis for this admission?: Yes (5) Chronic kidney disease, stage 3 Is this a current diagnosis for this admission?: Yes (6) Ischemic cardiomyopathy Is this a current diagnosis for this admission?: Yes
[2019-01-31] MEDS ORDERED: (PENDING PHARMACY ID) (Oxycodone Myristate [Xtampza Er] 18 MG) PO SCH (22:00)
[2019-01-31] MEDS: ATORVASTATIN CALCIUM 10 MG TABLET PO SCH (22:04)
[2019-01-31] MEDS: HYDRALAZINE HCL 50 MG TABLET PO SCH (22:04)
[2019-01-31] MEDS: CETIRIZINE 5 MG TABLET PO SCH (22:04)
[2019-01-31] MEDS: SODIUM BICARBONATE 650 MG TABLET PO SCH (22:04)
[2019-01-31] MEDS: INSULIN GLARGINE,HUM.REC.ANLOG 1,000 UNIT/10 ML VIAL SUBCUT SCH (22:05)
[2019-01-31] MEDS: NYSTATIN TOPICAL POWDER 15 GM TP SCH (22:12)
[2019-01-31] MEDS: NYSTATIN CREAM 15 GM TP SCH (22:12)
[2019-01-31] MEDS: ALLOPURINOL 100 MG TABLET PO SCH (22:14)
[2019-02-01] MEDS: GABAPENTIN 300 MG CAPSULE PO SCH ×4 (00:45→17:09)
[2019-02-01] MEDS: HYDROMORPHONE HCL INJ/PF 2 MG/ML AMPULE IV PRN ×5 (04:26→23:55)
[2019-02-01] MEDS: HEPARIN SOD (PORCINE) 5,000 UNIT/ML 1 ML SYRINGE SUBCUT SCH ×3 (05:37→22:19)
[2019-02-01] MEDS: SODIUM BICARBONATE 650 MG TABLET PO SCH ×3 (05:38→22:22)
[2019-02-01] MEDS: HYDRALAZINE HCL 50 MG TABLET PO SCH ×3 (05:38→22:23)
[2019-02-01 05:51] LABS: ABSOLUTE EOSINOPHILS # (AUTO) 0.1 10^3/uL (0.0-0.6); ABSOLUTE LYMPHOCYTES (AUTO) 1.1 10^3/uL (0.5-4.7); ABSOLUTE MONOCYTES (AUTO) 0.7 10^3/uL (0.1-1.4); ABSOLUTE NEUT (AUTO) 2.9 10^3/uL (1.7-8.2); BASOPHILS % (AUTO) 0.3 % (0-2); EOSINOPHILS % (AUTO) 2.8 % (0-6); HEMATOCRIT 34.1 % (36.0-47.0); HEMOGLOBIN 11.3 g/dL (12.0-15.5); MEAN CORPUSCULAR HEMOGLOBIN 30.4 pg (27.0-33.4); MEAN CORPUSCULAR VOLUME 92 fl (80-97); MONOCYTES % (AUTO) 13.8 % (3-13); PLATELET COUNT 145 10^3/uL (150-450); RED BLOOD COUNT 3.71 10^6/uL (3.72-5.28); RED CELL DISTRIBUTION WIDTH 16.9 % (11.5-14.0); SEGMENTED NEUTROPHILS % (AUTO) 60.1 % (42-78); TOTAL CELLS COUNTED % (AUTO) 100 %; WHITE BLOOD COUNT 4.8 10^3/uL (4.0-10.5)
[2019-02-01] MEDS: INSULIN LISPRO 100 UNIT/ML 3 ML VIAL SUBCUT SCH ×3 (09:21→16:56)
[2019-02-01] MEDS: CALCITRIOL 0.25 MCG CAPSULE PO SCH (09:58)
[2019-02-01] MEDS: SITAGLIPTIN PHOSPHATE 50 MG TABLET PO SCH (09:58)
[2019-02-01] MEDS: METOPROLOL SUCCINATE 50 MG TAB.SR.24H PO SCH (09:58)
[2019-02-01] MEDS: COLCHICINE 0.6 MG TABLET PO SCH (09:58)
[2019-02-01] MEDS: INSULIN GLARGINE,HUM.REC.ANLOG 1,000 UNIT/10 ML VIAL SUBCUT SCH ×2 (09:59→22:25)
[2019-02-01] MEDS: ALLOPURINOL 100 MG TABLET PO SCH (09:59)
[2019-02-01] MEDS: NYSTATIN TOPICAL POWDER 15 GM TP SCH ×2 (09:59→17:11)
[2019-02-01] MEDS: NYSTATIN CREAM 15 GM TP SCH ×2 (10:00→22:24)
[2019-02-01] MEDS: DEXTROSE 5%-WATER 1000 ML 1,000 ML with SODIUM BICARBONATE 150 MEQ IV PRN ×2 (16:00)
--- NOTE | 2019-02-01 18:32 | PDOC PROGRESS REPORT ---
Subjective Progress Note for:: 02/01/19 Subjective:: Patient seen by the bedside, she is still on infusion Reason For Visit: ACUTE KIDNEY INJURY, HYPERKALEMIA Physical Exam Vital Signs: Temp Pulse Resp BP Pulse Ox 98.6 F 76 14 136/76 H 98 02/01/19 15:20 02/01/19 15:20 02/01/19 15:20 02/01/19 15:20 02/01/19 15:20 Intake & Output 01/31/19 02/01/19 02/02/19 06:59 06:59 06:59 Intake Total 1350 1714 Output Total 150 500 Balance 1200 1214 Weight 125.9 kg 128.6 kg General appearance: PRESENT: no acute distress Eye exam: PRESENT: PERRLA Respiratory exam: PRESENT: clear to auscultation stephen Cardiovascular exam: PRESENT: +S1, +S2 Neurological exam: PRESENT: alert Results Laboratory Results: 02/01/19 04:39 01/31/19 02/01/19 17:50 04:39 WBC 4.8 RBC 3.71 L Hgb 11.3 L Hct 34.1 L MCV 92 MCH 30.4 MCHC 33.0 RDW 16.9 H Plt Count 145 L Seg Neutrophils % 60.1 Lymphocytes % 23.0 Monocytes % 13.8 H Eosinophils % 2.8 Basophils % 0.3 Absolute Neutrophils 2.9 Absolute Lymphocytes 1.1 Absolute Monocytes 0.7 Absolute Eosinophils 0.1 Absolute Basophils 0.0 Sodium 136.2 L Potassium 4.6 Chloride 99 Carbon Dioxide 23 Anion Gap 14 BUN 47 H Creatinine 2.85 H Est GFR ( Amer) 20 L Est GFR (Non-Af Amer) 17 L Glucose 163 H Calcium 8.6 Total Bilirubin 0.3 AST 73 H ALT 58 H Alkaline Phosphatase 102 Total Protein 7.0 Albumin 3.7 01/31/19 04:45 Clean Catch Midstream Urine Culture - Final Mixed Skin. Possible Pathogen 01/30/19 01/30/19 01/30/19 17:57 18:10 21:51 Creatine Kinase 180 H 193 H CK-MB (CK-2) 3.47 Troponin I < 0.012 NT-Pro-B Natriuret Pep 787 01/31/19 01/31/19 01/31/19 00:45 00:45 06:35 Creatine Kinase 186 H 181 H CK-MB (CK-2) 3.49 Troponin I < 0.012 NT-Pro-B Natriuret Pep 01/31/19 01/31/19 06:35 17:50 Creatine Kinase CK-MB (CK-2) 3.29 2.49 Troponin I < 0.012 < 0.012 NT-Pro-B Natriuret Pep Impressions: Renal Ultrasound 01/30/19 00:00 IMPRESSION: Mild prominence of the renal pelves bilaterally, similar to the prior exam. Findings could reflect extrarenal pelves versus mild nonspecific hydronephrosis. Simple left renal cyst. copyright 2010 [employer]- All Rights Reserved Chest X-Ray 01/30/19 14:41 IMPRESSION: Cardiomegaly without acute abnormality of the lungs. Assessment & Plan - Diagnosis (1) Acute kidney injury Is this a current diagnosis for this admission?: Yes Plan: continue treatment ,improving kidney function (2) Metabolic acidosis with respiratory acidosis Is this a current diagnosis for this admission?: Yes (3) Chronic kidney disease, stage 3 Is this a current diagnosis for this admission?: Yes (4) Obesity hypoventilation syndrome Is this a current diagnosis for this admission?: Yes (5) Chronic kidney disease, stage 3 Is this a current diagnosis for this admission?: Yes (6) Ischemic cardiomyopathy Is this a current diagnosis for this admission?: Yes
[2019-02-01 18:45] LABS: ALANINE AMINOTRANSFERASE 18 U/L (9-52); ALBUMIN 4.3 g/dL (3.5-5.0); ALKALINE PHOSPHATASE 55 U/L (38-126); ANION GAP 8 (5-19); ASPARTATE AMINO TRANSFERASE 18 U/L (14-36); BILIRUBIN,DIRECT 0.3 mg/dL (0.0-0.4); BILIRUBIN,TOTAL 1.5 mg/dL (0.2-1.3); BLOOD UREA NITROGEN 16 mg/dL (7-20); CALCIUM 10.3 mg/dL (8.4-10.2); CARBON DIOXIDE 25 mmol/L (22-30); CHLORIDE 106 mmol/L (98-107); GLUCOSE 71 mg/dL (75-110); POTASSIUM 4.4 mmol/L (3.6-5.0); SODIUM 139.3 mmol/L (137-145); TOTAL PROTEIN 7.7 g/dL (6.3-8.2)
[2019-02-01] MEDS ORDERED: NORMAL SALINE 1000 ML 1,000 ML IV PRN (18:57)
[2019-02-01] MEDS: ATORVASTATIN CALCIUM 10 MG TABLET PO SCH (22:23)
[2019-02-01] MEDS: CETIRIZINE 5 MG TABLET PO SCH (22:24)
[2019-02-02] MEDS: GABAPENTIN 300 MG CAPSULE PO SCH ×4 (01:00→18:16)
[2019-02-02] MEDS: HEPARIN SOD (PORCINE) 5,000 UNIT/ML 1 ML SYRINGE SUBCUT SCH ×3 (05:11→21:32)
[2019-02-02] MEDS: OXYCODONE HCL IR 5 MG TABLET PO PRN ×2 (05:12→18:16)
[2019-02-02] MEDS: HYDRALAZINE HCL 50 MG TABLET PO SCH ×3 (05:12→21:34)
[2019-02-02] MEDS: SODIUM BICARBONATE 650 MG TABLET PO SCH ×3 (05:13→21:34)
[2019-02-02 05:50] LABS: ABSOLUTE EOSINOPHILS # (AUTO) 0.2 10^3/uL (0.0-0.6); ABSOLUTE LYMPHOCYTES (AUTO) 1.3 10^3/uL (0.5-4.7); ABSOLUTE MONOCYTES (AUTO) 0.8 10^3/uL (0.1-1.4); BASOPHILS % (AUTO) 0.5 % (0-2); EOSINOPHILS % (AUTO) 3.5 % (0-6); HEMATOCRIT 34.4 % (36.0-47.0); HEMOGLOBIN 11.2 g/dL (12.0-15.5); LYMPHOCYTES % (AUTO) 25.1 % (13-45); MEAN CORPUSCULAR HEMOGLOBIN 30.6 pg (27.0-33.4); MEAN CORPUSCULAR HGB CONC 32.6 g/dL (32.0-36.0); MEAN CORPUSCULAR VOLUME 94 fl (80-97); MONOCYTES % (AUTO) 14.9 % (3-13); PLATELET COUNT 145 10^3/uL (150-450); RED BLOOD COUNT 3.66 10^6/uL (3.72-5.28); RED CELL DISTRIBUTION WIDTH 17.3 % (11.5-14.0); TOTAL CELLS COUNTED % (AUTO) 100 %; WHITE BLOOD COUNT 5.3 10^3/uL (4.0-10.5)
[2019-02-02] MEDS: HYDROMORPHONE HCL INJ/PF 2 MG/ML AMPULE IV PRN ×3 (08:00→21:38)
[2019-02-02] MEDS: INSULIN LISPRO 100 UNIT/ML 3 ML VIAL SUBCUT SCH ×3 (08:06→17:12)
[2019-02-02] MEDS: METOPROLOL SUCCINATE 50 MG TAB.SR.24H PO SCH (09:41)
[2019-02-02] MEDS: CALCITRIOL 0.25 MCG CAPSULE PO SCH (09:42)
[2019-02-02] MEDS: SITAGLIPTIN PHOSPHATE 50 MG TABLET PO SCH (09:42)
[2019-02-02] MEDS: INSULIN GLARGINE,HUM.REC.ANLOG 1,000 UNIT/10 ML VIAL SUBCUT SCH ×2 (09:42→21:31)
[2019-02-02] MEDS: ALLOPURINOL 100 MG TABLET PO SCH (09:42)
[2019-02-02] MEDS: COLCHICINE 0.6 MG TABLET PO SCH (09:42)
[2019-02-02] MEDS: NYSTATIN TOPICAL POWDER 15 GM TP SCH ×2 (09:42→18:17)
[2019-02-02] MEDS: NYSTATIN CREAM 15 GM TP SCH ×2 (09:43→21:34)
--- NOTE | 2019-02-02 21:07 | PDOC PROGRESS REPORT ---
Subjective Progress Note for:: 02/02/19 Subjective:: Patient seen by the bedside,there is no new complaints Reason For Visit: ACUTE KIDNEY INJURY, HYPERKALEMIA Physical Exam Vital Signs: Temp Pulse Resp BP Pulse Ox 97.4 F 76 18 147/75 H 95 02/02/19 19:57 02/02/19 19:57 02/02/19 19:57 02/02/19 19:57 02/02/19 19:57 Intake & Output 02/01/19 02/02/19 02/03/19 06:59 06:59 06:59 Intake Total 1714 1355 640 Output Total 500 2170 1350 Balance 2302 -017 -334 Weight 128.6 kg 128.4 kg General appearance: PRESENT: no acute distress Eye exam: PRESENT: PERRLA Respiratory exam: PRESENT: clear to auscultation stephen Cardiovascular exam: PRESENT: +S1, +S2 GI/Abdominal exam: PRESENT: soft Neurological exam: PRESENT: alert Results Laboratory Results: 02/02/19 05:02 02/01/19 17:51 02/02/19 05:02 WBC 5.3 RBC 3.66 L Hgb 11.2 L Hct 34.4 L MCV 94 MCH 30.6 MCHC 32.6 RDW 17.3 H Plt Count 145 L Seg Neutrophils % 56.0 Lymphocytes % 25.1 Monocytes % 14.9 H Eosinophils % 3.5 Basophils % 0.5 Absolute Neutrophils 3.0 Absolute Lymphocytes 1.3 Absolute Monocytes 0.8 Absolute Eosinophils 0.2 Absolute Basophils 0.0 01/30/19 01/30/19 01/30/19 17:57 18:10 21:51 Creatine Kinase 180 H 193 H CK-MB (CK-2) 3.47 Troponin I < 0.012 NT-Pro-B Natriuret Pep 787 01/31/19 01/31/19 01/31/19 00:45 00:45 06:35 Creatine Kinase 186 H 181 H CK-MB (CK-2) 3.49 Troponin I < 0.012 NT-Pro-B Natriuret Pep 01/31/19 01/31/19 06:35 17:50 Creatine Kinase CK-MB (CK-2) 3.29 2.49 Troponin I < 0.012 < 0.012 NT-Pro-B Natriuret Pep Impressions: Renal Ultrasound 01/30/19 00:00 IMPRESSION: Mild prominence of the renal pelves bilaterally, similar to the prior exam. Findings could reflect extrarenal pelves versus mild nonspecific hydronephrosis. Simple left renal cyst. copyright 2011 [employer]- All Rights Reserved Chest X-Ray 01/30/19 14:41 IMPRESSION: Cardiomegaly without acute abnormality of the lungs. Assessment & Plan - Diagnosis (1) Acute kidney injury Is this a current diagnosis for this admission?: Yes Plan: resolved (2) Metabolic acidosis with respiratory acidosis Is this a current diagnosis for this admission?: Yes (3) Chronic kidney disease, stage 3 Is this a current diagnosis for this admission?: Yes (4) Obesity hypoventilation syndrome Is this a current diagnosis for this admission?: Yes (5) Chronic kidney disease, stage 3 Is this a current diagnosis for this admission?: Yes (6) Ischemic cardiomyopathy Is this a current diagnosis for this admission?: Yes
[2019-02-02] MEDS: ATORVASTATIN CALCIUM 10 MG TABLET PO SCH (21:34)
[2019-02-02] MEDS: CETIRIZINE 5 MG TABLET PO SCH (21:34)
[2019-02-03] MEDS: GABAPENTIN 300 MG CAPSULE PO SCH ×4 (00:15→17:02)
[2019-02-03] MEDS: OXYCODONE HCL IR 5 MG TABLET PO PRN (04:09)
[2019-02-03] MEDS: HEPARIN SOD (PORCINE) 5,000 UNIT/ML 1 ML SYRINGE SUBCUT SCH ×2 (05:03→13:05)
[2019-02-03] MEDS: HYDRALAZINE HCL 50 MG TABLET PO SCH ×2 (05:09→13:05)
[2019-02-03] MEDS: SODIUM BICARBONATE 650 MG TABLET PO SCH ×2 (05:09→13:05)
[2019-02-03] MEDS: HYDROMORPHONE HCL INJ/PF 2 MG/ML AMPULE IV PRN ×3 (06:26→16:55)
[2019-02-03] MEDS: INSULIN LISPRO 100 UNIT/ML 3 ML VIAL SUBCUT SCH ×3 (07:58→16:53)
[2019-02-03] MEDS: INSULIN GLARGINE,HUM.REC.ANLOG 1,000 UNIT/10 ML VIAL SUBCUT SCH (09:33)
[2019-02-03] MEDS: SITAGLIPTIN PHOSPHATE 50 MG TABLET PO SCH (09:51)
[2019-02-03] MEDS: COLCHICINE 0.6 MG TABLET PO SCH (09:51)
[2019-02-03] MEDS: CALCITRIOL 0.25 MCG CAPSULE PO SCH (09:53)
[2019-02-03] MEDS: ALLOPURINOL 100 MG TABLET PO SCH (09:53)
[2019-02-03] MEDS: METOPROLOL SUCCINATE 50 MG TAB.SR.24H PO SCH (09:53)
[2019-02-03] MEDS: NYSTATIN CREAM 15 GM TP SCH (09:54)
[2019-02-03] MEDS: NYSTATIN TOPICAL POWDER 15 GM TP SCH ×2 (09:55→17:40)
[2019-02-03 13:20] LABS: ABSOLUTE EOSINOPHILS # (AUTO) 0.2 10^3/uL (0.0-0.6); ABSOLUTE LYMPHOCYTES (AUTO) 1.3 10^3/uL (0.5-4.7); ABSOLUTE MONOCYTES (AUTO) 0.6 10^3/uL (0.1-1.4); ABSOLUTE NEUT (AUTO) 3.5 10^3/uL (1.7-8.2); BASOPHILS % (AUTO) 0.8 % (0-2); EOSINOPHILS % (AUTO) 4.3 % (0-6); HEMATOCRIT 35.3 % (36.0-47.0); HEMOGLOBIN 11.3 g/dL (12.0-15.5); LYMPHOCYTES % (AUTO) 23.2 % (13-45); MEAN CORPUSCULAR HEMOGLOBIN 30.4 pg (27.0-33.4); MEAN CORPUSCULAR HGB CONC 32.1 g/dL (32.0-36.0); MEAN CORPUSCULAR VOLUME 95 fl (80-97); MONOCYTES % (AUTO) 10.5 % (3-13); PLATELET COUNT 150 10^3/uL (150-450); RED BLOOD COUNT 3.72 10^6/uL (3.72-5.28); RED CELL DISTRIBUTION WIDTH 17.3 % (11.5-14.0); SEGMENTED NEUTROPHILS % (AUTO) 61.2 % (42-78); TOTAL CELLS COUNTED % (AUTO) 100 %; WHITE BLOOD COUNT 5.7 10^3/uL (4.0-10.5)
[2019-02-03 13:44] LABS: ALANINE AMINOTRANSFERASE 41 U/L (9-52); ALBUMIN 3.4 g/dL (3.5-5.0); ALKALINE PHOSPHATASE 68 U/L (38-126); ANION GAP 7 (5-19); ASPARTATE AMINO TRANSFERASE 41 U/L (14-36); BILIRUBIN,DIRECT 0.3 mg/dL (0.0-0.4); BILIRUBIN,TOTAL 0.3 mg/dL (0.2-1.3); BLOOD UREA NITROGEN 20 mg/dL (7-20); CARBON DIOXIDE 34 mmol/L (22-30); CHLORIDE 99 mmol/L (98-107); GLUCOSE 144 mg/dL (75-110); POTASSIUM 4.4 mmol/L (3.6-5.0); SODIUM 140.4 mmol/L (137-145); TOTAL PROTEIN 6.6 g/dL (6.3-8.2)
[2019-02-03 18:42] VITALS: BP 167/81
--- NOTE | 2019-02-03 19:45 | PDOC DISCHARGE SUMMARY ---
General - Admit/Disc Date/PCP Admission Date/Primary Care Provider: 01/30/19 19:30 LISA MATA MD Discharge Date: 02/03/19 - Discharge Diagnosis (1) Acute kidney injury Is this a current diagnosis for this admission?: Yes (2) Metabolic acidosis with respiratory acidosis Is this a current diagnosis for this admission?: Yes (3) Chronic kidney disease, stage 3 Is this a current diagnosis for this admission?: Yes (4) Obesity hypoventilation syndrome Is this a current diagnosis for this admission?: Yes (5) Chronic kidney disease, stage 3 Is this a current diagnosis for this admission?: Yes (6) Ischemic cardiomyopathy Is this a current diagnosis for this admission?: Yes (7) Hyperkalemia Is this a current diagnosis for this admission?: Yes - Additional Information Discharge Diet: As Tolerated Discharge Activity: Activity As Tolerated Home Medications: RX: Allopurinol [Zyloprim 100 mg Tablet] 100 mg PO DAILY 01/31/19 RX: Betamet Diprop/Prop Gly [Betamethasone Dp Aug 0.05% Cream] 1 applic TP BID 01/31/19 RX: Calcitriol [Rocaltrol 0.5 mcg Capsule] 0.5 mg PO DAILY 01/31/19 RX: Clobetasol Propionate/Emoll [Clobetasol Emollient 0.05% Crm] 1 applic TP BID 01/31/19 RX: Clotrimazole [Itch Relief] 1 applic TP BID 01/31/19 RX: Colchicine [Colcrys 0.6 mg Tablet] 0.6 mg PO DAILY 01/31/19 RX: Dapagliflozin Propanediol [Farxiga] 5 mg PO DAILY 01/31/19 RX: Ergocalciferol (Vitamin D2) [Drisdol 50,000 unit (1.25MG) Capsule] 50,000 unit PO SA@1000 01/31/19 RX: Exenatide Microspheres [Bydureon Pen] 2 mg SQ KYLE@1000 01/31/19 RX: Gabapentin [Neurontin] 600 mg PO QID 01/31/19 RX: Hydralazine HCl [Apresoline 50 mg Tablet] 50 mg PO TID 01/31/19 RX: Insulin Aspart [Novolog Flexpen] 12 unit SQ TID 01/31/19 RX: Insulin Glargine,Hum.rec.anlog [Basaglar Kwikpen U-100] 60 unit SQ BID 01/31/19 RX: Levocetirizine Dihydrochloride [Allergy Relief] 5 mg PO QPM 01/31/19 RX: Metoprolol Succinate [Toprol Xl] 200 mg PO DAILY 01/31/19 RX: Nystatin [Mycostatin Cream 15 gm] 1 applic TP BID 01/31/19 RX: Nystatin [Mycostatin Topical Powder 15 gm] 1 applic TP BID 01/31/19 RX: Oxycodone HCl [Oxy-Ir 5 mg Tablet] 10 mg PO Q8HP PRN 01/31/19 RX: Oxycodone Myristate [Xtampza ER] 18 mg PO Q12 01/31/19 RX: Pravastatin Sodium [Pravachol] 40 mg PO DAILY 01/31/19 RX: Sitagliptin Phosphate [Januvia 50 mg Tablet] 50 mg PO DAILY 01/31/19 RX: Sodium Bicarbonate [Sodium Bicarbonate 650 mg Tablet] 1,300 mg PO TID 01/31/19 History of Present Illness History of Present Illness: RANDEE VELÁSQUEZ is a 63 year old female, Patient is well-known to [place], she has a history of chronic kidney disease stage III, ischemic cardiomyopathy, she came to emergency room for evaluation of chest symptoms, she was found to have elevated serum creatinine, 4.65 the serum potassium was 6.5, she was also acidotic, She has metabolic acidosis with respiratory acidosis, the expected PCO2 40 degree of acidosis should be 32.72 -36.7 but the measured PCO2 was 44 suggesting a component of respiratory acidosis. 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 On admission she was very acidotic she had combined metabolic and respiratory acidosis, she was treated with intravenous sodium bicarbonate infusion with subsequent normalization of acute kidney injuryPatient is back to baseline, she will be discharged home today. 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 Patient is stable enough for discharge today, she will be discharged home today to follow-up patient in the office Physical Exam Vital Signs: Temp Pulse Resp BP Pulse Ox 98.7 F 72 16 167/81 H 96 02/03/19 18:01 02/03/19 18:01 02/03/19 18:01 02/03/19 15:23 02/03/19 18:01 Intake & Output 02/02/19 02/03/19 02/04/19 06:59 06:59 06:59 Intake Total 1355 640 720 Output Total 2170 2150 650 Balance -815 -1510 70 Weight 128.4 kg 128 kg General appearance: PRESENT: no acute distress Head exam: PRESENT: atraumatic, normocephalic Eye exam: PRESENT: conjunctiva pink, EOMI, PERRLA Neck exam: PRESENT: full ROM Respiratory exam: PRESENT: clear to auscultation stephen Cardiovascular exam: PRESENT: RRR, +S1, +S2 Vascular exam: PRESENT: normal capillary refill GI/Abdominal exam: PRESENT: normal bowel sounds, soft Rectal exam: PRESENT: deferred Neurological exam: PRESENT: alert, CN II-XII grossly intact. ABSENT: motor sensory deficit Psychiatric exam: PRESENT: appropriate affect, normal mood Skin exam: PRESENT: dry, intact, warm. ABSENT: cyanosis, rash Results Laboratory Results: 02/03/19 13:07 02/03/19 13:07 02/03/19 02/03/19 13:07 13:07 WBC 5.7 RBC 3.72 Hgb 11.3 L Hct 35.3 L MCV 95 MCH 30.4 MCHC 32.1 RDW 17.3 H Plt Count 150 Seg Neutrophils % 61.2 Lymphocytes % 23.2 Monocytes % 10.5 Eosinophils % 4.3 Basophils % 0.8 Absolute Neutrophils 3.5 Absolute Lymphocytes 1.3 Absolute Monocytes 0.6 Absolute Eosinophils 0.2 Absolute Basophils 0.0 Sodium 140.4 Potassium 4.4 Chloride 99 Carbon Dioxide 34 H Anion Gap 7 BUN 20 Creatinine 1.68 H Est GFR ( Amer) 37 L Est GFR (Non-Af Amer) 31 L Glucose 144 H Calcium 9.0 Total Bilirubin 0.3 AST 41 H ALT 41 Alkaline Phosphatase 68 Total Protein 6.6 Albumin 3.4 L 01/30/19 01/30/19 01/30/19 17:57 18:10 21:51 Creatine Kinase 180 H 193 H CK-MB (CK-2) 3.47 Troponin I < 0.012 NT-Pro-B Natriuret Pep 787 01/31/19 01/31/19 01/31/19 00:45 00:45 06:35 Creatine Kinase 186 H 181 H CK-MB (CK-2) 3.49 Troponin I < 0.012 NT-Pro-B Natriuret Pep 01/31/19 01/31/19 06:35 17:50 Creatine Kinase CK-MB (CK-2) 3.29 2.49 Troponin I < 0.012 < 0.012 NT-Pro-B Natriuret Pep Impressions: Renal Ultrasound 01/30/19 00:00 IMPRESSION: Mild prominence of the renal pelves bilaterally, similar to the prior exam. Findings could reflect extrarenal pelves versus mild nonspecific hydronephrosis. Simple left renal cyst. copyright 2011 [employer]- All Rights Reserved Chest X-Ray 01/30/19 14:41 IMPRESSION: Cardiomegaly without acute abnormality of the lungs. Qualifiers - * PATIENT BEING DISCHARGED WITH ANY OF THE FOLLOWING DIAGNOSIS: No Acute Heart Failure Is this a Heart Failure Patient?: No
[2019-02-04] MEDS ORDERED: ERGOCALCIFEROL (VITAMIN D2) 50000 UNIT (1.25 MG) CAPSULE PO SCH (10:00)
[2019-02-05] MEDS ORDERED: (PENDING PHARMACY ID) (Exenatide Microspheres [Bydureon Pen] 2 MG) SQ SCH (10:00)
== END 2019-02-03 19:00 | disposition home or self-care (01) | DRG 683 ==
LOC: ER 14:03 → EH 19:30 → 3W 21:00
PROVIDERS: ADMIT Internal Medicine; ATTEND Internal Medicine
DX: N17.9 Acute kidney failure, unspecified (principal); I13.0 Hypertensive heart and chronic kidney disease with heart failure and stage 1 through stage 4 chronic kidney disease, or unspecified chronic kidney disease; E66.2 Morbid (severe) obesity with alveolar hypoventilation; E87.4 Mixed disorder of acid-base balance; E11.22 Type 2 diabetes mellitus with diabetic chronic kidney disease; E87.5 Hyperkalemia; E86.0 Dehydration; I25.5 Ischemic cardiomyopathy; I50.9 Heart failure, unspecified; N18.3 Chronic kidney disease, stage 3 (moderate); I48.91 Unspecified atrial fibrillation; I25.10 Atherosclerotic heart disease of native coronary artery without angina pectoris; M17.0 Bilateral primary osteoarthritis of knee; E11.40 Type 2 diabetes mellitus with diabetic neuropathy, unspecified; M46.90 Unspecified inflammatory spondylopathy, site unspecified; K21.9 Gastro-esophageal reflux disease without esophagitis; E78.5 Hyperlipidemia, unspecified; Z96.652 Presence of left artificial knee joint; I25.2 Old myocardial infarction; Z86.718 Personal history of other venous thrombosis and embolism; Z85.528 Personal history of other malignant neoplasm of kidney; Z95.5 Presence of coronary angioplasty implant and graft; Z87.891 Personal history of nicotine dependence; Z79.899 Other long term (current) drug therapy; Z88.6 Allergy status to analgesic agent; Z88.1 Allergy status to other antibiotic agents; Z93.2 Ileostomy status; Z90.49 Acquired absence of other specified parts of digestive tract; Z79.4 Long term (current) use of insulin
CPT/HCPCS: 36415; 36600; 71045; 76775; 80053; 80061; 80307; 81001; 82140; 82150; 82550; 82553; 82803; 82962; 83036; 83690; 83735; 83880; 84100; 84439; 84443; 84484; 85025; 85610; 85730; 87040; 87086; 93005; 93010; 96374; 96375; 99285; J0610; J1170; J1642; J1644; J1815; J3010; J3490; J7030; J7060; J7120

== ENCOUNTER 2019-02-20 13:36 | Inpatient (IN) | payer MEDICARE, MEDICAID ==
[2019-02-20] MEDS ORDERED: NORMAL SALINE 1000 ML 1,000 ML IV PRN (16:30)
[2019-02-20 17:15] LABS: ABSOLUTE EOSINOPHILS # (AUTO) 0.2 10^3/uL (0.0-0.6); ABSOLUTE LYMPHOCYTES (AUTO) 1.1 10^3/uL (0.5-4.7); ABSOLUTE MONOCYTES (AUTO) 0.7 10^3/uL (0.1-1.4); ABSOLUTE NEUT (AUTO) 6.1 10^3/uL (1.7-8.2); BASOPHILS % (AUTO) 0.5 % (0-2); HEMATOCRIT 33.6 % (36.0-47.0); HEMOGLOBIN 11.2 g/dL (12.0-15.5); LYMPHOCYTES % (AUTO) 13.9 % (13-45); MEAN CORPUSCULAR HGB CONC 33.3 g/dL (32.0-36.0); MEAN CORPUSCULAR VOLUME 93 fl (80-97); PLATELET COUNT 162 10^3/uL (150-450); RED BLOOD COUNT 3.61 10^6/uL (3.72-5.28); RED CELL DISTRIBUTION WIDTH 17.1 % (11.5-14.0); SEGMENTED NEUTROPHILS % (AUTO) 74.6 % (42-78); TOTAL CELLS COUNTED % (AUTO) 100 %; WHITE BLOOD COUNT 8.2 10^3/uL (4.0-10.5)
--- NOTE | 2019-02-20 17:30 | RADIOLOGY REPORT (SQ) ---
EXAM DESCRIPTION: CHEST SINGLE VIEW COMPLETED DATE/TIME: 02/20/2019 5:21 pm REASON FOR STUDY: cp COMPARISON: 01/30/2019 EXAM PARAMETERS: NUMBER OF VIEWS: One view. TECHNIQUE: Single frontal radiographic view of the chest acquired. RADIATION DOSE: NA LIMITATIONS: None. FINDINGS: LUNGS AND PLEURA: Low lung volumes results in bronchovascular crowding. No opacities, mas ses or pneumothorax. No pleural effusion. MEDIASTINUM AND HILAR STRUCTURES: No masses. Contour normal. HEART AND VASCULAR STRUCTURES: Stable cardiomegaly. Normal vasculature. BONES: No acute findings. HARDWARE: Port-A-Cath terminates in the region of the superior vena cava. OTHER: No other significant finding. IMPRESSION: 1. Stable cardiomegaly without central vascular congestion. No evidence of acute cardi opulmonary abnormality. 2. Port-A-Cath terminates in the region of the superior vena cava. TECHNICAL DOCUMENTATION: JOB ID: [id number] [employer]- All Rights Reserved Reading location - IP/workstation name: [email or web address]
[2019-02-20 17:35] LABS: ALANINE AMINOTRANSFERASE 48 U/L (9-52); ALBUMIN 3.6 g/dL (3.5-5.0); ALKALINE PHOSPHATASE 68 U/L (38-126); ANION GAP 8 (5-19); ASPARTATE AMINO TRANSFERASE 46 U/L (14-36); BILIRUBIN,DIRECT 0.2 mg/dL (0.0-0.4); BILIRUBIN,TOTAL 0.4 mg/dL (0.2-1.3); BLOOD UREA NITROGEN 31 mg/dL (7-20); CALCIUM 9.4 mg/dL (8.4-10.2); CARBON DIOXIDE 24 mmol/L (22-30); CHLORIDE 97 mmol/L (98-107); GLUCOSE 119 mg/dL (75-110); POTASSIUM 4.3 mmol/L (3.6-5.0); SODIUM 129.4 mmol/L (137-145); TOTAL PROTEIN 6.8 g/dL (6.3-8.2)
[2019-02-20] MEDS ORDERED: OXYCODONE HCL IR 5 MG TABLET PO ONE (17:59)
--- NOTE | 2019-02-20 18:01 | ER Document Report ---
ED General - General Chief Complaint: Pain All Over Stated Complaint: BODY PAIN Time Seen by Provider: 02/20/19 17:59 Primary Care Provider: LISA MATA MD [Primary Care Provider] - Follow up as needed TRAVEL OUTSIDE OF THE [place] IN LAST 30 DAYS: No - HPI Notes: Patient is a 63-year-old female that presents to the emergency department for chief complaint of generalized body aches and dehydration Patient reports she has chronic diarrhea from her ileostomy and frequently gets dehydrated. She presented to the emergency room as a direct admission from Dr. aMta. Patient came through the emergency room because an inpatient bed was not available. She states she is having pain all over which she usually takes oxycodone for. She denies any recent fall or injury or new pain. Patient reports some shortness of breath which is slightly increased from her baseline. She denies fever, chills, nausea, vomiting and abdominal pain. Patient denies any associated chest pain numbness, weakness and headache. Past Medical History: Diabetes, hypertension, A. fib, ileostomy, malignant neoplasm of right kidney Past Surgical History: Ankle surgery, coronary stenting, hysterectomy, left knee arthroplasty, colectomy with ileoanal anastomosis Social History: Denies tobacco and alcohol consumption Family History: Reviewed and noncontributory for presenting illness Allergies: Reviewed, see documented allergy list. REVIEW OF SYSTEMS: CONSTITUTIONAL : No fever No chills No diaphoresis No recent illness EENT: No vision changes No congestion No sore throat CARDIOVASCULAR: No chest pain No palpitations RESPIRATORY: shortness of breath No cough No difficulty breathing GASTROINTESTINAL: No abdominal pain No nausea No vomiting No diarrhea GENITOURINARY: No dysuria No hematuria No difficulty urinating MUSCULOSKELETAL: No back pain leg pain arm pain SKIN: No rashes No lesions LYMPHATIC: No swollen, enlarged glands. NEUROLOGICAL: No lightheadedness No headache No weakness No paresthesias PSYCHIATRIC: No anxiety No depression PHYSICAL EXAMINATION: Vital signs reviewed, nursing noted reviewed. GENERAL: Well-appearing, obese and in no acute distress. HEAD: Atraumatic, normocephalic. EYES: Eyes appear normal, extraocular movements intact, sclera anicteric, conjunctiva are normal. ENT: nares patent, oropharynx clear without exudates. Dry mucous membranes. NECK: Normal range of motion, supple without lymphadenopathy LUNGS: Breath sounds clear to auscultation bilaterally and equal. No wheezes r ales or rhonchi. HEART: Regular rate and rhythm without murmurs ABDOMEN: Soft, nontender, normoactive bowel sounds. No rebound, guarding, or rigidity. No masses appreciated. EXTREMITIES: Nontender, good range of motion, +2 pitting edema bilateral lower extremities NEUROLOGICAL: No focal neurological deficits. Moves all extremities spontaneously Motor and sensory grossly intact on exam. PSYCH: Depressed, flat affect SKIN: Warm, Dry, normal turgor, ileostomy pink with no active bleeding or rash - Related Data Allergies/Adverse Reactions: ciprofloxacin [From Cipro] Allergy (Severe, Verified 11/16/18 14:04) Hallucinations morphine [Morphine] Allergy (Unknown, Verified 11/16/18 14:04) Past Medical History - Social History Smoking Status: Never Smoker Frequency of alcohol use: None Drug Abuse: None Family History: Reviewed & Not Pertinent, Hypertension Patient has suicidal ideation: No Patient has homicidal ideation: No - Past Medical History Cardiac Medical History: Reports: Hx Atrial Fibrillation, Hx Coronary Artery Disease, Hx DVT, Hx Heart Attack - 2002, Hx Hypercholesterolemia, Hx Hypertension Pulmonary Medical History: Reports: Hx Pneumonia - 2006 Neurological Medical History: Endocrine Medical History: Reports: Hx Diabetes Mellitus Type 2 Renal/ Medical History: Reports: Hx Ovarian Cysts, Hx Renal Insufficiency. Denies: Hx Peritoneal Dialysis Malignancy Medical History: Reports: Hx Renal (Kidney) Cancer GI Medical History: Reports: Hx Gastroesophageal Reflux Disease, Hx Hiatal Hernia, Hx Irritable Bowel, Hx Ulcer Musculoskeletal Medical History: Reports Hx Arthritis - Back, Knees Psychiatric Medical History: Denies: Hx Depression Traumatic Medical History: Reports: Hx Fractures Past Surgical History: Reports: Hx Abdominal Surgery - COLOSTOMY. INTESTINAL RUPTURE, Hx Bowel Surgery - COLECTOMY/ileostomy, Hx Cardiac Catheterization, Hx Cardiac Surgery - STENTS, Hx Colostomy, Hx Coronary Stent, Hx Hysterectomy, Hx Ileostomy, Hx Orthopedic Surgery - L knee replacement, right ankle pin, Other - Tracheostomy 10 yrs ago - Immunizations Immunizations up to date: Yes Hx Diphtheria, Pertussis, Tetanus Vaccination: No Hx Pneumococcal Vaccination: 09/19/13 Physical Exam - Vital signs Vitals: Temp Pulse Resp BP Pulse Ox 98.1 F 97 20 138/71 H 92 02/20/19 14:29 02/20/19 14:29 02/20/19 14:29 02/20/19 14:29 02/20/19 14:29 Course - Re-evaluation Re-evalutation: 02/20/19 18:06 Vitals reviewed. Nursing notes reviewed. Patient appears dehydrated with dry mucous membranes. Lab work shows hyponatremia consistent with her dehydration. She is receiving IV fluids. Patient also has slight elevation of her cre atinine at 2.0. Her chest x-ray shows no acute pneumonia or other process including vascular congestion. Patient's care was discussed with Dr. Mata who would like her admitted to the [facility] for hydration and monitoring of her renal insufficiency. Patient in agreement with this plan of care and stable at time of admission Laboratory 02/20/19 02/20/19 16:58 16:58 WBC 8.2 RBC 3.61 L Hgb 11.2 L Hct 33.6 L MCV 93 MCH 31.0 MCHC 33.3 RDW 17.1 H Plt Count 162 Seg Neutrophils % 74.6 Lymphocytes % 13.9 Monocytes % 9.0 Eosinophils % 2.0 Basophils % 0.5 Absolute Neutrophils 6.1 Absolute Lymphocytes 1.1 Absolute Monocytes 0.7 Absolute Eosinophils 0.2 Absolute Basophils 0.0 Sodium 129.4 L Potassium 4.3 Chloride 97 L Carbon Dioxide 24 Anion Gap 8 BUN 31 H Creatinine 2.07 H Est GFR ( Amer) 29 L Est GFR (Non-Af Amer) 24 L Glucose 119 H Calcium 9.4 Total Bilirubin 0.4 Direct Bilirubin 0.2 Neonat Total Bilirubin Not Reportable Neonat Direct Bilirubin Not Reportable Neonat Indirect Bili Not Reportable AST 46 H ALT 48 Alkaline Phosphatase 68 Total Protein 6.8 Albumin 3.6 Chest X-Ray 02/20/19 17:05 IMPRESSION: 1. Stable cardiomegaly without central vascular congestion. No evidence of acute cardiopulmonary abnormality. 2. Port-A-Cath terminates in the region of the superior vena cava. - Vital Signs Vital signs: Temp Pulse Resp BP Pulse Ox 98.1 F 97 20 145/72 H 100 02/20/19 14:29 02/20/19 14:29 02/20/19 16:58 02/20/19 16:58 02/20/19 16:58 - Laboratory Result Diagrams: 02/20/19 16:58 02/20/19 16:58 Laboratory results interpreted by me: 02/20/19 02/20/19 16:58 16:58 RBC 3.61 L Hgb 11.2 L Hct 33.6 L RDW 17.1 H Sodium 129.4 L Chloride 97 L BUN 31 H Creatinine 2.07 H Est GFR ( Amer) 29 L Est GFR (Non-Af Amer) 24 L Glucose 119 H AST 46 H - EKG Interpretation by Me Additional EKG results interpreted by me: 02/20/19 18:06 Interpreted by myself 1732: Normal sinus rhythm, rate 88, first-degree AV block, LVH, normal axis, no ectopy, no STEMI Discharge - Discharge Clinical Impression: Hyponatremia, Dehydration, Generalized pain, JESUS (acute kidney injury) Condition: Stable Disposition: ADMITTED INPATIENT Admitting Provider: [facility] Unit Admitted: [facility] Referrals: LISA MATA MD [Primary Care Provider] - Follow up as needed
[2019-02-20 18:21] LABS: APPEARANCE,URINE CLOUDY; BILIRUBIN,URINE NEGATIVE (NEGATIVE); COLOR,URINE YELLOW; GLUCOSE, URINE NEGATIVE (NEGATIVE); KETONES,URINE NEGATIVE (NEGATIVE); LEUKOCYTE ESTERASE,URINE LARGE (NEGATIVE); NITRITE,URINE NEGATIVE (NEGATIVE); PROTEIN,URINE NEGATIVE (NEGATIVE); URINE SPECIFIC GRAVITY 1.006; UROBILINOGEN,URINE NEGATIVE mg/dL (<2.0)
[2019-02-20] MEDS ORDERED: LOPERAMIDE HCL 2 MG CAPSULE PO PRN (21:38)
[2019-02-20] MEDS ORDERED: ALBUTEROL SULFATE HFA (90 MCG/PUFF) 200 PUFF/8.5 GM MDI IH PRN (21:38)
[2019-02-20] MEDS ORDERED: CALCITRIOL 0.5 MG PO SCH (21:45)
[2019-02-20] MEDS ORDERED: INSULIN GLARGINE HUM REC ANLOG 60 UNIT SQ SCH (21:45)
[2019-02-20] MEDS ORDERED: (PENDING PHARMACY ID) (Betamet Diprop/Prop Gly [Betamethasone Dp Aug 0.05% Cream] 1 APPLIC TP SCH (21:45)
[2019-02-20] MEDS ORDERED: (PENDING PHARMACY ID) (Dapagliflozin Propanediol [Farxiga] 5 MG) PO SCH (21:45)
[2019-02-20] MEDS ORDERED: (PENDING PHARMACY ID) (Fluconazole [Diflucan] 150 MG) PO SCH (21:45)
[2019-02-20] MEDS ORDERED: (PENDING PHARMACY ID) (Levocetirizine Dihydrochloride [Allergy Relief] 5 MG) PO SCH (21:45)
[2019-02-20] MEDS ORDERED: INSULIN ASPART 12 UNIT SQ SCH (21:45)
[2019-02-20] MEDS ORDERED: (PENDING PHARMACY ID) (Metoprolol Succinate [Toprol Xl] 200 MG) PO SCH (21:45)
[2019-02-20] MEDS ORDERED: (PENDING PHARMACY ID) (Pravastatin Sodium [Pravachol] 40 MG) PO SCH (22:00)
[2019-02-20] MEDS ORDERED: (PENDING PHARMACY ID) (Oxycodone Myristate [Xtampza Er] 18 MG) PO SCH (22:00)
[2019-02-20] MEDS ORDERED: INSULIN GLARGINE,HUM.REC.ANLOG 1,000 UNIT/10 ML VIAL (PYX) SUBCUT ONE (22:30)
[2019-02-20] MEDS: CLOTRIMAZOLE 1% CREAM 15 GM TP SCH (22:53)
[2019-02-20] MEDS: NYSTATIN TOPICAL POWDER 15 GM TP SCH (22:53)
[2019-02-20] MEDS: NYSTATIN CREAM 15 GM TP SCH (22:53)
[2019-02-20] MEDS: CLOBETASOL PROPIONATE 0.05% CREAM 15 GM TP SCH (22:54)
[2019-02-20] MEDS: GABAPENTIN 300 MG CAPSULE PO SCH (23:03)
[2019-02-20] MEDS: MAGNESIUM OXIDE 400 MG TABLET PO SCH (23:04)
[2019-02-20] MEDS: SODIUM BICARBONATE 650 MG TABLET PO SCH (23:04)
[2019-02-20] MEDS: HYDRALAZINE HCL 50 MG TABLET PO SCH (23:04)
[2019-02-20] MEDS: SITAGLIPTIN PHOSPHATE 50 MG TABLET PO SCH (23:04)
[2019-02-20] MEDS: ALLOPURINOL 100 MG TABLET PO SCH (23:04)
[2019-02-20] MEDS: ATORVASTATIN CALCIUM 10 MG TABLET PO SCH (23:04)
[2019-02-20] MEDS: COLCHICINE 0.6 MG TABLET PO SCH (23:04)
--- NOTE | 2019-02-20 23:43 | EKG REPORT ---
SEVERITY:- ABNORMAL ECG - SINUS RHYTHM FIRST DEGREE AV BLOCK LEFT VENTRICULAR HYPERTROPHY PROBABLE INFERIOR INFARCT, AGE INDETERMINATE : Confirmed by: Cari Sharp MD 20-Feb-2019 23:42:51
[2019-02-21] MEDS: OXYCODONE HCL IR 5 MG TABLET PO PRN ×2 (02:31→21:58)
[2019-02-21] MEDS: NORMAL SALINE 1000 ML 1,000 ML IV PRN ×2 (02:34→17:48)
[2019-02-21] MEDS: GABAPENTIN 300 MG CAPSULE PO SCH ×3 (05:17→17:47)
[2019-02-21] MEDS: INSULIN LISPRO 100 UNIT/ML 3 ML VIAL SUBCUT SCH ×3 (09:27→17:43)
[2019-02-21] MEDS: SITAGLIPTIN PHOSPHATE 50 MG TABLET PO SCH (09:29)
[2019-02-21] MEDS: ALLOPURINOL 100 MG TABLET PO SCH (09:29)
[2019-02-21] MEDS: MAGNESIUM OXIDE 400 MG TABLET PO SCH (09:29)
[2019-02-21] MEDS: HYDRALAZINE HCL 50 MG TABLET PO SCH ×3 (09:29→17:48)
[2019-02-21] MEDS: METOPROLOL SUCCINATE 50 MG TAB.SR.24H PO SCH (09:29)
[2019-02-21] MEDS: INSULIN GLARGINE,HUM.REC.ANLOG 1,000 UNIT/10 ML VIAL SUBCUT SCH ×2 (09:30→21:59)
[2019-02-21] MEDS: COLCHICINE 0.6 MG TABLET PO SCH (09:30)
[2019-02-21] MEDS: SODIUM BICARBONATE 650 MG TABLET PO SCH ×3 (09:30→17:47)
[2019-02-21] MEDS: CALCITRIOL 0.25 MCG CAPSULE PO SCH (09:30)
[2019-02-21] MEDS: CLOBETASOL PROPIONATE 0.05% CREAM 15 GM TP SCH ×2 (09:31→17:50)
[2019-02-21] MEDS: CLOTRIMAZOLE 1% CREAM 15 GM TP SCH ×2 (09:32→17:50)
[2019-02-21] MEDS: NYSTATIN CREAM 15 GM TP SCH ×2 (09:32→17:50)
[2019-02-21] MEDS: NYSTATIN TOPICAL POWDER 15 GM TP SCH ×2 (09:32→17:50)
[2019-02-21] MEDS ORDERED: FLUCONAZOLE 100 MG TABLET PO SCH (10:00)
[2019-02-21] MEDS: CETIRIZINE 5 MG TABLET PO SCH (17:48)
[2019-02-21 19:05] LABS: ANION GAP 6 (5-19); BLOOD UREA NITROGEN 21 mg/dL (7-20); CALCIUM 9.4 mg/dL (8.4-10.2); CARBON DIOXIDE 27 mmol/L (22-30); CHLORIDE 104 mmol/L (98-107); GLUCOSE 107 mg/dL (75-110); POTASSIUM 4.8 mmol/L (3.6-5.0); SODIUM 137.3 mmol/L (137-145)
--- NOTE | 2019-02-21 20:18 | PDOC H&P ---
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 There was no bed available in the hospital patient was directed to the emergency room by the nursing supervisor facepiece line, in the ER she was evaluated the serum creatinine was about 2 but she was not as acidotic as she usually is Past Medical History Cardiac Medical History: Reports: Atrial Fibrillation, Coronary Artery Disease, DVT, Myocardial Infarction - 2002, Hyperlipidema, Hypertension Pulmonary Medical History: Reports: Pneumonia - 2006 Neurological Medical History: Endocrine Medical History: Reports: Diabetes Mellitus Type 2 Malignancy Medical History: Reports: Renal (Kidney) Cancer GI Medical History: Reports: Gastroesophageal Reflux Disease, Hiatal Hernia Musculoskeltal Medical History: Reports: Arthritis - Back, Knees Hematology: Reports: Anemia Past Surgical History Past Surgical History: Reports: Cardiac Catheterization, Colostomy, Coronary Stent, Hysterectomy, Ileostomy, Orthopedic Surgery - L knee replacement, right ankle pin, Other - Tracheostomy 10 yrs ago Social History Smoking Status: Never Smoker Frequency of Alcohol Use: None Hx Recreational Drug Use: No Drugs: None Hx Prescription Drug Abuse: No - Advance Directive Resuscitation Status: Full Code Family History Family History: Reviewed & Not Pertinent, Hypertension Parental Family History Reviewed: Yes Children Family History Reviewed: Yes Sibling(s) Family History Reviewed.: Yes Medication/Allergy Home Medications: Allopurinol [Zyloprim 100 mg Tablet] 100 mg PO DAILY 01/31/19 Betamet Diprop/Prop Gly [Betamethasone Dp Aug 0.05% Cream] 1 applic TP BID 01/31/19 Calcitriol [Rocaltrol 0.5 mcg Capsule] 0.5 mcg PO DAILY 01/31/19 Clotrimazole [Itch Relief] 1 applic TP BID 01/31/19 Colchicine [Colcrys 0.6 mg Tablet] 0.6 mg PO DAILY 01/31/19 Dapagliflozin Propanediol [Farxiga] 5 mg PO DAILY 01/31/19 Ergocalciferol (Vitamin D2) [Drisdol 50,000 unit (1.25MG) Capsule] 50,000 unit PO SA@1000 01/31/19 Exenatide Microspheres [Bydureon Pen] 2 mg SQ KYLE@1000 01/31/19 Gabapentin [Neurontin] 600 mg PO QID 01/31/19 Hydralazine HCl [Apresoline 50 mg Tablet] 50 mg PO TID 01/31/19 Insulin Aspart [Novolog Flexpen] 12 unit SQ TID 01/31/19 Insulin Glargine,Hum.rec.anlog [Basaglar Kwikpen U-100] 60 unit SQ BID 01/31/19 Levocetirizine Dihydrochloride [Allergy Relief] 5 mg PO QPM 01/31/19 Metoprolol Succinate [Toprol Xl] 200 mg PO DAILY 01/31/19 Nystatin [Mycostatin Cream 15 gm] 1 applic TP BID 01/31/19 Nystatin [Mycostatin Topical Powder 15 gm] 1 applic TP BID 01/31/19 Oxycodone HCl [Oxy-Ir 5 mg Tablet] 10 mg PO Q8HP PRN 01/31/19 Oxycodone Myristate [Xtampza ER] 18 mg PO Q12 01/31/19 Pravastatin Sodium [Pravachol] 40 mg PO QHS 01/31/19 Sitagliptin Phosphate [Januvia 50 mg Tablet] 50 mg PO DAILY 01/31/19 Sodium Bicarbonate [Sodium Bicarbonate 650 mg Tablet] 1,300 mg PO TID 01/31/19 Albuterol Sulfate [Albuterol Sulfate Hfa] 2 puff IH Q4HP PRN 02/20/19 Clobetasol Propionate [Temovate 0.05% Cream 15 Gm] 1 applic TP BID 02/20/19 Fluconazole [Diflucan] 150 mg PO TU@1000 PRN 02/20/19 Loperamide HCl [Imodium 2 mg Capsule] 2 mg PO ASDIR PRN 02/20/19 Magnesium Oxide [Mag-Ox 400 mg Tablet] 400 mg PO DAILY 02/20/19 Allergies/Adverse Reactions: ciprofloxacin [From Cipro] Allergy (Severe, Verified 11/16/18 14:04) Hallucinations morphine [Morphine] Allergy (Unknown, Verified 11/16/18 14:04) Review of Systems Constitutional: PRESENT: fatigue, weakness. ABSENT: chills, fever(s), headache(s), weight gain, weight loss Eyes: ABSENT: visual disturbances Ears: ABSENT: hearing changes Cardiovascular: ABSENT: chest pain, dyspnea on exertion, edema, orthropnea, palpitations Respiratory: ABSENT: cough, hemoptysis Gastrointestinal: ABSENT: abdominal pain, constipation, diarrhea, hematemesis, hematochezia, nausea, vomiting Genitourinary: ABSENT: dysuria, hematuria Musculoskeletal: ABSENT: joint swelling Integumentary: ABSENT: rash, wounds Neurological: ABSENT: abnormal gait, abnormal speech, confusion, dizziness, focal weakness, syncope Psychiatric: ABSENT: anxiety, depression, homidical ideation, suicidal ideation Endocrine: ABSENT: cold intolerance, heat intolerance, menstrual abnormalities, polydipsia, polyuria Hematologic/Lymphatic: ABSENT: easy bleeding, easy bruising, lymphadenopathy Physical Exam Vital Signs: Temp Pulse Resp BP Pulse Ox 99.1 F 87 26 H 182/92 H 93 02/21/19 17:11 02/21/19 17:11 02/21/19 17:11 02/21/19 17:11 02/21/19 17:11 Intake & Output 02/20/19 02/21/19 02/22/19 06:59 06:59 06:59 Intake Total 1200 1646 Output Total 2 850 Balance 1198 796 Weight 133.8 kg General appearance: PRESENT: no acute distress Head exam: PRESENT: atraumatic, normocephalic Eye exam: PRESENT: PERRLA Neck exam: PRESENT: full ROM Respiratory exam: PRESENT: clear to auscultation stephen Cardiovascular exam: PRESENT: RRR, +S1, +S2 Pulses: PRESENT: normal dorsalis pedis pul, +2 pedal pulses bilateral Vascular exam: PRESENT: normal capillary refill GI/Abdominal exam: PRESENT: normal bowel sounds, soft Rectal exam: PRESENT: deferred Neurological exam: PRESENT: alert, CN II-XII grossly intact Psychiatric exam: PRESENT: appropriate affect, normal mood Skin exam: PRESENT: dry, intact, warm Results Laboratory Results: 02/20/19 16:58 02/21/19 18:15 02/21/19 18:15 Sodium 137.3 Potassium 4.8 Chloride 104 Carbon Dioxide 27 Anion Gap 6 BUN 21 H Creatinine 1.49 H Est GFR ( Amer) 43 L Est GFR (Non-Af Amer) 35 L Glucose 107 Calcium 9.4 Impressions: Chest X-Ray 02/20/19 17:05 IMPRESSION: 1. Stable cardiomegaly without central vascular congestion. No evidence of acute cardiopulmonary abnormality. 2. Port-A-Cath terminates in the region of the superior vena cava. Assessment & Plan - Diagnosis (1) Acute kidney injury Is this a current diagnosis for this admission?: Yes Plan: This is a ongoing problem for this patient, the acute kidney injury is prerenal she be treated with IV fluid therapy (2) High output ileostomy Is this a current diagnosis for this admission?: Yes (3) Chronic kidney disease, stage 3 Is this a current diagnosis for this admission?: Yes (4) Chronic systolic heart failure Is this a current diagnosis for this admission?: Yes (5) Coronary artery disease Qualifiers: Coronary Disease-Associated Artery/Lesion type: [place] artery [place] vs. transplanted heart: [place] heart Associated angina: without angina Qualified Code(s): I25.10 - Atherosclerotic heart disease of [place] coronary artery without angina pectoris Is this a current diagnosis for this admission?: Yes (6) Diabetes mellitus Qualifiers: Diabetes mellitus type: type 2 Diabetes mellitus ocean transportation intermediary insulin use: with skilled nursing use Diabetes mellitus complication status: with neurologic complications Diabetes mellitus complication detail: with polyneuropathy Qualified Code(s): E11.42 - Type 2 diabetes mellitus with diabetic polyneuropathy; Z79.4 - prison (current) use of insulin; Z79.4 - prison (current) use of insulin; Z79.4 - prison (current) use of insulin; Z79.4 - terminal system operator (current) use of insulin
--- NOTE | 2019-02-21 20:22 | PDOC PROGRESS REPORT ---
Subjective Progress Note for:: 02/21/19 Subjective:: Patient was admitted yesterday for the management of acute kidney injury associated with high output state, presently on IV fluid the serum creatinine is improved from 2-1.5, she will continue hydration with fluid therapy. This is an ongoing problem with multiple hospital admission Reason For Visit: HYPONATREMIA, DEHYDRATION, GENERALIZED PAIN, Physical Exam Vital Signs: Temp Pulse Resp BP Pulse Ox 98.4 F 86 16 149/76 H 96 02/21/19 19:22 02/21/19 19:22 02/21/19 19:22 02/21/19 19:22 02/21/19 19:22 Intake & Output 02/20/19 02/21/19 02/22/19 06:59 06:59 06:59 Intake Total 1200 1646 Output Total 2 850 Balance 1198 796 Weight 133.8 kg General appearance: PRESENT: no acute distress Eye exam: PRESENT: PERRLA Respiratory exam: PRESENT: clear to auscultation stephen Cardiovascular exam: PRESENT: +S1, +S2 GI/Abdominal exam: PRESENT: soft Neurological exam: PRESENT: alert Results Laboratory Results: 02/20/19 16:58 02/21/19 18:15 02/21/19 18:15 Sodium 137.3 Potassium 4.8 Chloride 104 Carbon Dioxide 27 Anion Gap 6 BUN 21 H Creatinine 1.49 H Est GFR ( Amer) 43 L Est GFR (Non-Af Amer) 35 L Glucose 107 Calcium 9.4 Impressions: Chest X-Ray 02/20/19 17:05 IMPRESSION: 1. Stable cardiomegaly without central vascular congestion. No evidence of acute cardiopulmonary abnormality. 2. Port-A-Cath terminates in the region of the superior vena cava. Assessment & Plan - Diagnosis (1) Acute kidney injury Is this a current diagnosis for this admission?: Yes Plan: Continue IV fluid treatment (2) High output ileostomy Is this a current diagnosis for this admission?: Yes (3) Chronic kidney disease, stage 3 Is this a current diagnosis for this admission?: Yes (4) Chronic systolic heart failure Is this a current diagnosis for this admission?: Yes (5) Coronary artery disease Qualifiers: Coronary Disease-Associated Artery/Lesion type: [place] artery [place] vs. transplanted heart: [place] heart Associated angina: without angina Qualified Code(s): I25.10 - Atherosclerotic heart disease of [place] coronary artery without angina pectoris Is this a current diagnosis for this admission?: Yes (6) Diabetes mellitus Qualifiers: Diabetes mellitus type: type 2 Diabetes mellitus research physicist insulin use: with fdc use Diabetes mellitus complication status: with neurologic complications Diabetes mellitus complication detail: with polyneuropathy Qualified Code(s): E11.42 - Type 2 diabetes mellitus with diabetic polyneuropathy; Z79.4 - financial retirement plan specialist (current) use of insulin; Z79.4 - [facility] (current) use of insulin; Z79.4 - [facility] (current) use of insulin; Z79.4 - financial retirement plan specialist (current) use of insulin Is this a current diagnosis for this admission?: Yes
[2019-02-21] MEDS: ATORVASTATIN CALCIUM 10 MG TABLET PO SCH (21:59)
[2019-02-22] MEDS: GABAPENTIN 300 MG CAPSULE PO SCH ×5 (00:06→23:34)
[2019-02-22] MEDS: NORMAL SALINE 1000 ML 1,000 ML IV PRN (06:15)
[2019-02-22] MEDS: OXYCODONE HCL IR 5 MG TABLET PO PRN ×2 (06:17→15:28)
[2019-02-22] MEDS: HYDROMORPHONE HCL INJ/PF 2 MG/ML AMPULE IV PRN ×3 (08:57→23:46)
[2019-02-22] MEDS: SODIUM BICARBONATE 650 MG TABLET PO SCH ×3 (10:23→17:34)
[2019-02-22] MEDS: SITAGLIPTIN PHOSPHATE 50 MG TABLET PO SCH (10:23)
[2019-02-22] MEDS: ALLOPURINOL 100 MG TABLET PO SCH (10:23)
[2019-02-22] MEDS: METOPROLOL SUCCINATE 50 MG TAB.SR.24H PO SCH (10:23)
[2019-02-22] MEDS: CALCITRIOL 0.25 MCG CAPSULE PO SCH (10:23)
[2019-02-22] MEDS: COLCHICINE 0.6 MG TABLET PO SCH (10:24)
[2019-02-22] MEDS: MAGNESIUM OXIDE 400 MG TABLET PO SCH (10:24)
[2019-02-22] MEDS: INSULIN LISPRO 100 UNIT/ML 3 ML VIAL SUBCUT SCH ×3 (10:24→17:35)
[2019-02-22] MEDS: HYDRALAZINE HCL 50 MG TABLET PO SCH ×3 (10:24→17:34)
[2019-02-22] MEDS: INSULIN GLARGINE,HUM.REC.ANLOG 1,000 UNIT/10 ML VIAL SUBCUT SCH ×2 (10:25→21:02)
[2019-02-22] MEDS: NYSTATIN TOPICAL POWDER 15 GM TP SCH ×2 (10:26→17:42)
[2019-02-22] MEDS: CLOTRIMAZOLE 1% CREAM 15 GM TP SCH ×2 (10:27→17:42)
[2019-02-22] MEDS: CLOBETASOL PROPIONATE 0.05% CREAM 15 GM TP SCH ×2 (10:27→17:42)
[2019-02-22] MEDS: NYSTATIN CREAM 15 GM TP SCH ×2 (10:27→17:42)
--- NOTE | 2019-02-22 15:00 | PDOC PROGRESS REPORT ---
Subjective Progress Note for:: 02/22/19 Subjective:: She was seen by the bedside, the urine culture grew ESBL E. coli, sensitive to Macrobid. Previously we had adopted a strategy of outpatient IV fluid therapy that was very successful for the last over 12 months, we were able to keep her out of the hospital with this strategy but because of her cardiomyopathy the strategy of outpatient fluid therapy was dropped. We may need to revisit that strategy but at a lower infusion rate Reason For Visit: HYPONATREMIA, DEHYDRATION, GENERALIZED PAIN, Physical Exam Vital Signs: Temp Pulse Resp BP Pulse Ox 98.4 F 79 22 H 131/74 H 96 02/22/19 11:15 02/22/19 11:15 02/22/19 11:15 02/22/19 11:15 02/22/19 11:15 Intake & Output 02/21/19 02/22/19 02/23/19 06:59 06:59 06:59 Intake Total 1200 3126 560 Output Total 2 2750 700 Balance 1198 376 -140 Weight 133.8 kg 132 kg General appearance: PRESENT: no acute distress Eye exam: PRESENT: PERRLA Respiratory exam: PRESENT: clear to auscultation stephen Cardiovascular exam: PRESENT: +S1, +S2 GI/Abdominal exam: PRESENT: soft Results Laboratory Results: 02/20/19 16:58 02/21/19 18:15 02/21/19 18:15 Sodium 137.3 Potassium 4.8 Chloride 104 Carbon Dioxide 27 Anion Gap 6 BUN 21 H Creatinine 1.49 H Est GFR ( Amer) 43 L Est GFR (Non-Af Amer) 35 L Glucose 107 Calcium 9.4 02/20/19 17:53 Clean Catch Midstream Urine Culture - Final Escherichia Coli Esbl Impressions: Chest X-Ray 02/20/19 17:05 IMPRESSION: 1. Stable cardiomegaly without central vascular congestion. No evidence of acute cardiopulmonary abnormality. 2. Port-A-Cath terminates in the region of the superior vena cava. Assessment & Plan - Diagnosis (1) Acute kidney injury Is this a current diagnosis for this admission?: Yes (2) High output ileostomy Is this a current diagnosis for this admission?: Yes (3) Chronic kidney disease, stage 3 Is this a current diagnosis for this admission?: Yes (4) Chronic systolic heart failure Is this a current diagnosis for this admission?: Yes (5) Coronary artery disease Qualifiers: Coronary Disease-Associated Artery/Lesion type: [place] artery [place] vs. transplanted heart: [place] heart Associated angina: without angina Qualified Code(s): I25.10 - Atherosclerotic heart disease of [place] coronary artery wit hout angina pectoris Is this a current diagnosis for this admission?: Yes (6) Diabetes mellitus Qualifiers: Diabetes mellitus type: type 2 Diabetes mellitus termite treater helper insulin use: with termite treater helper use Diabetes mellitus complication status: with neurologic complications Diabetes mellitus complication detail: with polyneuropathy Jake lified Code(s): E11.42 - Type 2 diabetes mellitus with diabetic polyneuropathy; Z79.4 - care home (current) use of insulin; Z79.4 - termite treater helper (current) use of insulin; Z79.4 - care home (current) use of insulin; Z79.4 - termite treater helper (current) use of insulin Is this a current diagnosis for this admission?: Yes (7) UTI due to extended-spectrum beta lactamase (ESBL) producing Escherichia coli Is this a current diagnosis for this admission?: Yes Plan: Start Macrobid
[2019-02-22] MEDS: NITROFURANTOIN MONOHYD/M-CRYST 100 MG CAPSULE PO SCH ×2 (15:28→21:03)
[2019-02-22] MEDS: CETIRIZINE 5 MG TABLET PO SCH (17:34)
[2019-02-22] MEDS: ATORVASTATIN CALCIUM 10 MG TABLET PO SCH (21:03)
[2019-02-23 00:26] LABS: ALANINE AMINOTRANSFERASE 36 U/L (9-52); ALBUMIN 3.3 g/dL (3.5-5.0); ALKALINE PHOSPHATASE 58 U/L (38-126); ANION GAP 8 (5-19); ASPARTATE AMINO TRANSFERASE 37 U/L (14-36); BILIRUBIN,DIRECT 0.2 mg/dL (0.0-0.4); BILIRUBIN,TOTAL 0.2 mg/dL (0.2-1.3); BLOOD UREA NITROGEN 17 mg/dL (7-20); CALCIUM 9.6 mg/dL (8.4-10.2); CARBON DIOXIDE 26 mmol/L (22-30); CHLORIDE 105 mmol/L (98-107); GLUCOSE 156 mg/dL (75-110); POTASSIUM 4.4 mmol/L (3.6-5.0); SODIUM 139.3 mmol/L (137-145); TOTAL PROTEIN 6.4 g/dL (6.3-8.2)
[2019-02-23] MEDS: OXYCODONE HCL IR 5 MG TABLET PO PRN (05:48)
[2019-02-23] MEDS: GABAPENTIN 300 MG CAPSULE PO SCH ×4 (05:48→23:39)
[2019-02-23] MEDS: HYDROMORPHONE HCL INJ/PF 2 MG/ML AMPULE IV PRN ×4 (08:37→21:18)
[2019-02-23] MEDS: INSULIN LISPRO 100 UNIT/ML 3 ML VIAL SUBCUT SCH ×3 (09:39→17:09)
[2019-02-23] MEDS: INSULIN GLARGINE,HUM.REC.ANLOG 1,000 UNIT/10 ML VIAL SUBCUT SCH ×2 (09:39→21:23)
[2019-02-23] MEDS: NITROFURANTOIN MONOHYD/M-CRYST 100 MG CAPSULE PO SCH ×2 (09:41→21:11)
[2019-02-23] MEDS: METOPROLOL SUCCINATE 50 MG TAB.SR.24H PO SCH (09:41)
[2019-02-23] MEDS: COLCHICINE 0.6 MG TABLET PO SCH (09:41)
[2019-02-23] MEDS: SODIUM BICARBONATE 650 MG TABLET PO SCH ×3 (09:41→17:09)
[2019-02-23] MEDS: MAGNESIUM OXIDE 400 MG TABLET PO SCH (09:42)
[2019-02-23] MEDS: NYSTATIN TOPICAL POWDER 15 GM TP SCH ×2 (09:42→17:12)
[2019-02-23] MEDS: CLOTRIMAZOLE 1% CREAM 15 GM TP SCH ×2 (09:42→17:12)
[2019-02-23] MEDS: SITAGLIPTIN PHOSPHATE 50 MG TABLET PO SCH (09:42)
[2019-02-23] MEDS: HYDRALAZINE HCL 50 MG TABLET PO SCH ×3 (09:42→17:09)
[2019-02-23] MEDS: ALLOPURINOL 100 MG TABLET PO SCH (09:42)
[2019-02-23] MEDS: CALCITRIOL 0.25 MCG CAPSULE PO SCH (09:42)
[2019-02-23] MEDS: NYSTATIN CREAM 15 GM TP SCH ×2 (09:43→17:12)
[2019-02-23] MEDS: CLOBETASOL PROPIONATE 0.05% CREAM 15 GM TP SCH ×2 (09:43→17:12)
[2019-02-23] MEDS ORDERED: LOPERAMIDE HCL 2 MG CAPSULE PO PRN (11:00)
[2019-02-23 13:27] LABS: ALANINE AMINOTRANSFERASE 35 U/L (9-52); ALKALINE PHOSPHATASE 56 U/L (38-126); ANION GAP 6 (5-19); ASPARTATE AMINO TRANSFERASE 35 U/L (14-36); BILIRUBIN,DIRECT 0.2 mg/dL (0.0-0.4); BILIRUBIN,TOTAL 0.2 mg/dL (0.2-1.3); BLOOD UREA NITROGEN 16 mg/dL (7-20); CALCIUM 8.5 mg/dL (8.4-10.2); CARBON DIOXIDE 26 mmol/L (22-30); CHLORIDE 107 mmol/L (98-107); GLUCOSE 117 mg/dL (75-110); POTASSIUM 4.6 mmol/L (3.6-5.0); SODIUM 139.3 mmol/L (137-145)
[2019-02-23] MEDS: GUAIFENESIN 600 MG TABLET.SA PO SCH ×2 (13:55→21:11)
[2019-02-23] MEDS: CETIRIZINE 5 MG TABLET PO SCH (17:09)
--- NOTE | 2019-02-23 18:58 | PDOC PROGRESS REPORT ---
Subjective Progress Note for:: 02/23/19 Subjective:: She was seen by the bedside, she has high output ileostomy bag with increased risk of acute kidney injury, the serum creatinine is back to baseline, she will hopefully be discharged home in the morning. She also has ESBL E. coli sensitive to Macrobid Reason For Visit: HYPONATREMIA, DEHYDRATION, GENERALIZED PAIN, Physical Exam Vital Signs: Temp Pulse Resp BP Pulse Ox 97.6 F 81 19 143/82 H 100 02/23/19 15:15 02/23/19 15:15 02/23/19 15:15 02/23/19 15:15 02/23/19 15:15 Intake & Output 02/22/19 02/23/19 02/24/19 06:59 06:59 06:59 Intake Total 3126 1440 800 Output Total 2750 2300 1300 Balance 376 -860 -500 Weight 132 kg 133.3 kg 133.3 kg General appearance: PRESENT: no acute distress Eye exam: PRESENT: PERRLA Respiratory exam: PRESENT: clear to auscultation stephen Cardiovascular exam: PRESENT: +S1, +S2 GI/Abdominal exam: PRESENT: soft Neurological exam: PRESENT: alert Results Laboratory Results: 02/20/19 16:58 02/23/19 12:45 02/22/19 02/23/19 23:42 12:45 Sodium 139.3 139.3 Potassium 4.4 4.6 Chloride 105 107 Carbon Dioxide 26 26 Anion Gap 8 6 BUN 17 16 Creatinine 1.56 H 1.39 H Est GFR ( Amer) 41 L 46 L Est GFR (Non-Af Amer) 34 L 38 L Glucose 156 H 117 H Calcium 9.6 8.5 Total Bilirubin 0.2 0.2 AST 37 H 35 ALT 36 35 Alkaline Phosphatase 58 56 Total Protein 6.4 6.0 L Albumin 3.3 L 3.0 L Impressions: Chest X-Ray 02/20/19 17:05 IMPRESSION: 1. Stable cardiomegaly without central vascular congestion. No evidence of acute cardiopulmonary abnormality. 2. Port-A-Cath terminates in the region of the superior vena cava. Assessment & Plan - Diagnosis (1) Acute kidney injury Is this a current diagnosis for this admission?: Yes Plan: Improved back to baseline (2) High output ileostomy Is this a current diagnosis for this admission?: Yes (3) Chronic kidney disease, stage 3 Is this a current diagnosis for this admission?: Yes (4) Chronic systolic heart failure Is this a current diagnosis for this admission?: Yes (5) Coronary artery disease Qualifiers: Coronary Disease-Associated Artery/Lesion type: [place] artery [place] vs. transplanted heart: [place] heart Associated angina: without angina Qualified Code(s): I25.10 - Atherosclerotic heart disease of [place] coronary artery without angina pectoris Is this a current diagnosis for this admission?: Yes (6) Diabetes mellitus Qualifiers: Diabetes mellitus type: type 2 Diabetes mellitus longterm insulin use: with termite control servicer use Diabetes mellitus complication status: with neurologic complications Diabetes mellitus complication detail: with polyneuropathy Qualified Code(s): E11.42 - Type 2 diabetes mellitus with diabetic polyneuropathy; Z79.4 - ad terminal makeup operator (current) use of insulin; Z79.4 - retirement (current) use of insulin; Z79.4 - ad terminal makeup operator (current) use of insulin; Z79.4 - ad terminal makeup operator (current) use of insulin Is this a current diagnosis for this admission?: Yes (7) UTI due to extended-spectrum beta lactamase (ESBL) producing Escherichia coli Is this a current diagnosis for this admission?: Yes
[2019-02-23] MEDS: ATORVASTATIN CALCIUM 10 MG TABLET PO SCH (21:11)
[2019-02-23] MEDS: NORMAL SALINE 1000 ML 1,000 ML IV PRN (23:58)
[2019-02-24] MEDS: HYDROMORPHONE HCL INJ/PF 2 MG/ML AMPULE IV PRN ×4 (02:27→17:16)
[2019-02-24] MEDS: GABAPENTIN 300 MG CAPSULE PO SCH ×3 (05:16→17:16)
[2019-02-24] MEDS: COLCHICINE 0.6 MG TABLET PO SCH (09:19)
[2019-02-24] MEDS: MAGNESIUM OXIDE 400 MG TABLET PO SCH (09:19)
[2019-02-24] MEDS: GUAIFENESIN 600 MG TABLET.SA PO SCH (09:19)
[2019-02-24] MEDS: CALCITRIOL 0.25 MCG CAPSULE PO SCH (09:19)
[2019-02-24] MEDS: ALLOPURINOL 100 MG TABLET PO SCH (09:19)
[2019-02-24] MEDS: SODIUM BICARBONATE 650 MG TABLET PO SCH ×3 (09:19→17:23)
[2019-02-24] MEDS: NITROFURANTOIN MONOHYD/M-CRYST 100 MG CAPSULE PO SCH (09:20)
[2019-02-24] MEDS: METOPROLOL SUCCINATE 50 MG TAB.SR.24H PO SCH (09:20)
[2019-02-24] MEDS: HYDRALAZINE HCL 50 MG TABLET PO SCH ×3 (09:20→17:16)
[2019-02-24] MEDS: SITAGLIPTIN PHOSPHATE 50 MG TABLET PO SCH (09:20)
[2019-02-24] MEDS: CLOBETASOL PROPIONATE 0.05% CREAM 15 GM TP SCH ×2 (09:22→17:18)
[2019-02-24] MEDS: CLOTRIMAZOLE 1% CREAM 15 GM TP SCH ×2 (09:22→17:18)
[2019-02-24] MEDS: NYSTATIN CREAM 15 GM TP SCH ×2 (09:22→17:18)
[2019-02-24] MEDS: NYSTATIN TOPICAL POWDER 15 GM TP SCH ×2 (09:22→17:18)
[2019-02-24] MEDS: INSULIN LISPRO 100 UNIT/ML 3 ML VIAL SUBCUT SCH ×3 (09:36→17:17)
[2019-02-24] MEDS: INSULIN GLARGINE,HUM.REC.ANLOG 1,000 UNIT/10 ML VIAL SUBCUT SCH (09:37)
--- NOTE | 2019-02-24 16:53 | PDOC DISCHARGE SUMMARY ---
General - Admit/Disc Date/PCP Admission Date/Primary Care Provider: 02/20/19 18:25 LISA MATA MD Discharge Date: 02/24/19 - Discharge Diagnosis (1) Acute kidney injury Is this a current diagnosis for this admission?: Yes (2) High output ileostomy Is this a current diagnosis for this admission?: Yes (3) Chronic kidney disease, stage 3 Is this a current diagnosis for this admission?: Yes (4) Chronic systolic heart failure Is this a current diagnosis for this admission?: Yes (5) Coronary artery disease Is this a current diagnosis for this admission?: Yes (6) Diabetes mellitus Is this a current diagnosis for this admission?: Yes (7) UTI due to extended-spectrum beta lactamase (ESBL) producing Escherichia coli Is this a current diagnosis for this admission?: Yes - Additional Information Resuscitation Status: Full Code Prescriptions: RX: Nitrofurantoin Monohyd/M-Cryst [Macrobid 100 mg Capsule] 100 mg PO Q12 #10 capsule Home Medications: RX: Allopurinol [Zyloprim 100 mg Tablet] 100 mg PO DAILY 01/31/19 RX: Betamet Diprop/Prop Gly [Betamethasone Dp Aug 0.05% Cream] 1 applic TP BID 01/31/19 RX: Calcitriol [Rocaltrol 0.5 mcg Capsule] 0.5 mcg PO DAILY 01/31/19 RX: Clotrimazole [Itch Relief] 1 applic TP BID 01/31/19 RX: Colchicine [Colcrys 0.6 mg Tablet] 0.6 mg PO DAILY 01/31/19 RX: Dapagliflozin Propanediol [Farxiga] 5 mg PO DAILY 01/31/19 RX: Ergocalciferol (Vitamin D2) [Drisdol 50,000 unit (1.25MG) Capsule] 50,000 unit PO SA@1000 01/31/19 RX: Exenatide Microspheres [Bydureon Pen] 2 mg SQ KYLE@1000 01/31/19 RX: Gabapentin [Neurontin] 600 mg PO QID 01/31/19 RX: Hydralazine HCl [Apresoline 50 mg Tablet] 50 mg PO TID 01/31/19 RX: Insulin Aspart [Novolog Flexpen] 12 unit SQ TID 01/31/19 RX: Insulin Glargine,Hum.rec.anlog [Gerald Christiansonmonica U-100] 60 unit SQ BID 01/31/19 RX: Levocetirizine Dihydrochloride [Allergy Relief] 5 mg PO QPM 01/31/19 RX: Metoprolol Succinate [Toprol Xl] 200 mg PO DAILY 01/31/19 RX: Nystatin [Mycostatin Cream 15 gm] 1 applic TP BID 01/31/19 RX: Nystatin [Mycostatin Topical Powder 15 gm] 1 applic TP BID 01/31/19 RX: Oxycodone HCl [Oxy-Ir 5 mg Tablet] 10 mg PO Q8HP PRN 01/31/19 RX: Oxycodone Myristate [Xtampza ER] 18 mg PO Q12 01/31/19 RX: Pravastatin Sodium [Pravachol] 40 mg PO QHS 01/31/19 RX: Sitagliptin Phosphate [Januvia 50 mg Tablet] 50 mg PO DAILY 01/31/19 RX: Sodium Bicarbonate [Sodium Bicarbonate 650 mg Tablet] 1,300 mg PO TID 01/31/19 RX: Albuterol Sulfate [Albuterol Sulfate Hfa] 2 puff IH Q4HP PRN 02/20/19 RX: Clobetasol Propionate [Temovate 0.05% Cream 15 gm] 1 applic TP BID 02/20/19 RX: Fluconazole [Diflucan] 150 mg PO TU@1000 PRN 02/20/19 RX: Loperamide HCl [Imodium 2 mg Capsule] 2 mg PO ASDIR PRN 02/20/19 RX: Magnesium Oxide [Mag-Ox 400 mg Tablet] 400 mg PO DAILY 02/20/19 RX: Nitrofurantoin Monohyd/M-Cryst [Macrobid 100 mg Capsule] 100 mg PO Q12 #10 capsule 02/24/19 History of Present Illness History of Present Illness: RANDEE VELÁSQUEZ is a 63 year old female, She has a history of type II Diabetes mellitus, morbid obesity, total colectomy with high output ileostomy bag, chronic kidney disease stage III with a baseline creatinine of about 1.5, she came to the office for evaluation of malaise, generalized body aches and pain, the feeling that she had previously whenever she has acute kidney injury due to high output ileostomy bag, because of this concern my intent was to admit her directly into the hospital for further evaluation because of a history of multiple hospitalization for dehydration complicated with acute kidney injury. There was no bed available in the hospital patient was directed to the emergency room by the nursing automotive tire testing supervisor, in the ER she was evaluated the serum creatinine was about 2 but she was not as acidotic as she usually is Hospital Course Hospital Course: Patient was admitted for the management of acute kidney injury due to loss of volume, she has high output ileostomy bag. She was treated with normal saline with normalization of her kidney function she is back to her baseline creatinine, 1.3 on discharge. She has had multiple hospital admission for the same problem, the plan is to arrange for patient to have outpatient infusion with saline on a weekly basis for her to receive 500 cc/week . We adopted this strategy previously and was able to keep patient from the hospital but this process was dropped because of the cardiomyopathy Physical Exam Vital Signs: Temp Pulse Resp BP Pulse Ox 97.9 F 72 24 H 167/50 H 96 02/24/19 16:00 02/24/19 16:00 02/24/19 16:00 02/24/19 16:00 02/24/19 16:00 Intake & Output 02/23/19 02/24/19 02/25/19 06:59 06:59 06:59 Intake Total 1440 1800 237 Output Total 2300 2100 Balance -860 -300 237 Weight 133.3 kg 133 kg General appearance: PRESENT: no acute distress, well-developed, well-nourished Head exam: PRESENT: atraumatic, normocephalic Eye exam: PRESENT: conjunctiva pink, EOMI, PERRLA Ear exam: PRESENT: normal external ear exam Mouth exam: PRESENT: moist, tongue midline Neck exam: PRESENT: full ROM Respiratory exam: PRESENT: clear to auscultation stephen Cardiovascular exam: PRESENT: RRR, +S1, +S2 Pulses: PRESENT: normal dorsalis pedis pul, +2 pedal pulses bilateral Vascular exam: PRESENT: normal capillary refill GI/Abdominal exam: PRESENT: normal bowel sounds, soft Rectal exam: PRESENT: deferred Neurological exam: PRESENT: alert, awake, oriented to person, oriented to place, oriented to time, oriented to situation, CN II-XII grossly intact Psychiatric exam: PRESENT: appropriate affect, normal mood Skin exam: PRESENT: dry, intact, warm Results Laboratory Results: 02/20/19 16:58 06/20/19 12:45 Impressions: Chest X-Ray 02/20/19 17:05 IMPRESSION: 1. Stable cardiomegaly without central vascular congestion. No evidence of acute cardiopulmonary abnormality. 2. Port-A-Cath terminates in the region of the superior vena cava. Qualifiers - * PATIENT BEING DISCHARGED WITH ANY OF THE FOLLOWING DIAGNOSIS: No VTE patient discharged on overlapping Therapy?: No Reason(s) for not prescribing Overlap Therapy:: Not indicated Stroke Pt being discharged on Anti-thrombolytic therapy?: No Reason(s) for not prescribing Anti-thrombolytic therapy:: Not indicated Stroke Pt being discharged on Anti-coagulation therapy?: No Reason(s) for not prescribing Anti-coagulation therapy:: Not indicated Stroke Pt being discharged on Statins?: No Reason(s) for not prescribing Statins therapy:: Not indicated MS Pt being discharged on Aspirin therapy?: No Reason(s) for not prescribing Aspirin therapy:: Not indicated MS Pt being discharged on Statins?: No Reason(s) for not prescribing Statin therapy:: Not indicated MS Pt discharged ACEI/ARBS?: No Reason(s) for not prescribing ACEI/ARBS:: Not indicated Acute Heart Failure - Is this a Heart Failure Patient?: No
[2019-02-24] MEDS: CETIRIZINE 5 MG TABLET PO SCH (17:24)
[2019-02-24] MEDS ORDERED: HEPARIN SOD (PORCINE) 1,000 UNIT/ML 1 ML VIAL IV SCH (17:45)
[2019-02-24 17:57] VITALS: BP 145/74
[2019-02-25] MEDS ORDERED: ERGOCALCIFEROL (VITAMIN D2) 50000 UNIT (1.25 MG) CAPSULE PO SCH (10:00)
[2019-02-26] MEDS ORDERED: (PENDING PHARMACY ID) (Exenatide Microspheres [Bydureon Pen] 2 MG) SQ SCH (10:00)
== END 2019-02-24 18:20 | disposition home or self-care (01) | DRG 683 ==
LOC: ER 13:36 → EH 18:25 → 3W 20:20
PROVIDERS: ADMIT Internal Medicine; ATTEND Internal Medicine
DX: N17.9 Acute kidney failure, unspecified (principal); E87.1 Hypo-osmolality and hyponatremia; E87.2 Acidosis; I13.0 Hypertensive heart and chronic kidney disease with heart failure and stage 1 through stage 4 chronic kidney disease, or unspecified chronic kidney disease; I50.22 Chronic systolic (congestive) heart failure; N39.0 Urinary tract infection, site not specified; I42.9 Cardiomyopathy, unspecified; E86.0 Dehydration; Z93.2 Ileostomy status; I48.91 Unspecified atrial fibrillation; Z85.528 Personal history of other malignant neoplasm of kidney; I25.10 Atherosclerotic heart disease of native coronary artery without angina pectoris; I25.2 Old myocardial infarction; E78.5 Hyperlipidemia, unspecified; K21.9 Gastro-esophageal reflux disease without esophagitis; K44.9 Diaphragmatic hernia without obstruction or gangrene; K58.9 Irritable bowel syndrome, unspecified; M19.90 Unspecified osteoarthritis, unspecified site; I44.0 Atrioventricular block, first degree; D50.0 Iron deficiency anemia secondary to blood loss (chronic); Z88.1 Allergy status to other antibiotic agents; Z88.5 Allergy status to narcotic agent; E66.01 Morbid (severe) obesity due to excess calories; N18.3 Chronic kidney disease, stage 3 (moderate); Z79.4 Long term (current) use of insulin; E11.42 Type 2 diabetes mellitus with diabetic polyneuropathy; B96.20 Unspecified Escherichia coli [E. coli] as the cause of diseases classified elsewhere; Z16.12 Extended spectrum beta lactamase (ESBL) resistance; E11.22 Type 2 diabetes mellitus with diabetic chronic kidney disease
CPT/HCPCS: 36415; 36591; 71045; 80048; 80053; 80076; 81001; 82962; 85025; 87040; 87086; 87088; 87186; 93005; 93010; 99285; J1170; J3490; J7030; J8499

== ENCOUNTER 2019-03-01 08:04 | Outpatient (CLI) | payer MEDICARE, MEDICAID ==
[2019-03-01] MEDS ORDERED: 1/2 NORMAL SALINE 1,000 ML IV PRN (08:33)
[2019-03-01 08:59] VITALS: BP 130/70
== END 2019-03-01 13:45 | disposition home or self-care (01) ==
LOC: II 08:04 → 5TH 08:08 → II 13:45
PROVIDERS: ATTEND Internal Medicine
PROC: 3E0437Z Introduction of Electrolytic and Water Balance Substance into Central Vein, Percutaneous Approach (ICD-10-PCS; principal; 2019-03-01)
DX: E86.0 Dehydration (principal)
CPT/HCPCS: 96360; 96361; J1642

== ENCOUNTER 2019-03-08 08:10 | Outpatient (CLI) | payer MEDICARE, MEDICAID ==
[~2019-03-08 08:10] MED LIST changes: +1/2 NORMAL SALINE 500 ML IV PRN; -NORMAL SALINE 1000 ML 2,000 ML IV PRN
[2019-03-08 08:54] VITALS: BP 130/70
== END 2019-03-08 13:44 | disposition home or self-care (01) ==
LOC: II 08:10 → 5TH 08:12 → II 13:44
PROVIDERS: ATTEND Internal Medicine
DX: E86.0 Dehydration (principal)
CPT/HCPCS: 96360; 96361; J1642

== ENCOUNTER 2019-03-15 07:53 | Outpatient (CLI) | payer MEDICARE, MEDICAID ==
[2019-03-15] MEDS ORDERED: 1/2 NORMAL SALINE 500 ML IV PRN (08:45)
[2019-03-15 08:48] VITALS: BP 153/86
== END 2019-03-15 13:37 | disposition home or self-care (01) ==
LOC: II 07:53 → 5TH 07:55 → II 13:37
PROVIDERS: ATTEND Internal Medicine
PROC: 3E0437Z Introduction of Electrolytic and Water Balance Substance into Central Vein, Percutaneous Approach (ICD-10-PCS; principal; 2019-03-15)
DX: E86.0 Dehydration (principal)
CPT/HCPCS: 96360; 96361; J1642

== ENCOUNTER 2019-03-22 08:04 | Outpatient (CLI) | payer MEDICARE, MEDICAID ==
[2019-03-22 08:35] VITALS: BP 145/73
[2019-03-22] MEDS ORDERED: 1/2 NORMAL SALINE 500 ML IV PRN (08:50)
== END 2019-03-22 14:12 | disposition home or self-care (01) ==
LOC: II 08:04 → 5TH 08:05 → II 14:12
PROVIDERS: ATTEND Internal Medicine
PROC: 3E0437Z Introduction of Electrolytic and Water Balance Substance into Central Vein, Percutaneous Approach (ICD-10-PCS; principal; 2019-03-22)
DX: E86.0 Dehydration (principal)
CPT/HCPCS: 96360; 96361; J1642

== ENCOUNTER 2019-04-05 07:57 | Outpatient (CLI) | payer MEDICARE, MEDICAID ==
[2019-04-05] MEDS ORDERED: 1/2 NORMAL SALINE 1,000 ML IV PRN (08:08)
[2019-04-05] MEDS ORDERED: 1/2 NORMAL SALINE 500 ML IV PRN (08:30)
[2019-04-05 08:40] VITALS: BP 141/77
== END 2019-04-05 13:41 | disposition home or self-care (01) ==
LOC: II 07:57 → 5TH 08:12 → II 13:41
PROVIDERS: ATTEND Internal Medicine
PROC: 3E0437Z Introduction of Electrolytic and Water Balance Substance into Central Vein, Percutaneous Approach (ICD-10-PCS; principal; 2019-04-05)
DX: E86.0 Dehydration (principal)
CPT/HCPCS: 96360; 96361; J1642

== ENCOUNTER 2019-04-12 08:02 | Outpatient (CLI) | payer MEDICARE, MEDICAID ==
[2019-04-12 08:29] VITALS: BP 128/69
== END 2019-04-12 13:48 | disposition home or self-care (01) ==
LOC: II 08:02 → 5TH 08:03 → II 13:48
PROVIDERS: ATTEND Internal Medicine
PROC: 3E0437Z Introduction of Electrolytic and Water Balance Substance into Central Vein, Percutaneous Approach (ICD-10-PCS; principal; 2019-04-12)
DX: E86.0 Dehydration (principal)
CPT/HCPCS: 96360; 96361; J1642

== ENCOUNTER 2019-04-16 10:57 | Inpatient (IN) | payer MEDICARE, MEDICAID ==
[2019-04-16] MEDS ORDERED: LIDOCAINE 5% (700 MG) TRANSDERMAL ADH..PATCH TP ONE (11:10)
--- NOTE | 2019-04-16 11:14 | ER Document Report ---
ED Medical Screen (RME) - General Stated Complaint: BACK PAIN Time Seen by Provider: 04/16/19 11:09 Primary Care Provider: LISA MATA MD [Primary Care Provider] - Follow up as needed Notes: Patient is a 63-year-old female who presents to the emergency department with right buttock pain and low back pain. Patient states that her pain started on and has progressively gotten worse. She was going to wait until Wednesday to see her primary care provider, but her pain got progressively worse. Patient is currently on oxycodone 10 mg every 8 hours as needed and Xtampza twice a day for chronic pain. Patient states that the pain starts in her buttock and radiates down her right leg. She is able to walk. Patient has an ileostomy and chronic medical conditions. Exam: Tenderness to right buttock. I have greeted and performed a rapid initial assessment of this patient. A comprehensive ED assessment and evaluation of the patient, analysis of test results and completion of medical decision making process will be conducted by an additional ED providers. TRAVEL OUTSIDE OF THE [place] IN LAST 30 DAYS: No - Related Data Allergies/Adverse Reactions: ciprofloxacin [From Cipro] Allergy (Severe, Verified 11/16/18 14:04) Hallucinations morphine [Morphine] Allergy (Unknown, Verified 11/16/18 14:04) Past Medical History - Past Medical History Cardiac Medical History: Reports: Hx Atrial Fibrillation, Hx Coronary Artery Disease, Hx DVT, Hx Heart Attack - 2002, Hx Hypercholesterolemia, Hx Hypertension Pulmonary Medical History: Reports: Hx Pneumonia - 2006 Neurological Medical History: Endocrine Medical History: Reports: Hx Diabetes Mellitus Type 2 Renal/ Medical History: Reports: Hx Ovarian Cysts, Hx Renal Insufficiency. Denies: Hx Peritoneal Dialysis Malignancy Medical History: Reports: Hx Renal (Kidney) Cancer GI Medical History: Reports: Hx Gastroesophageal Reflux Disease, Hx Hiatal Hernia, Hx Irritable Bowel, Hx Ulcer Musculoskeltal Medical History: Reports Hx Arthritis - Back, Knees Psychiatric Medical History: Denies: Hx Depression Traumatic Medical History: Reports: Hx Fractures Past Surgical History: Reports: Hx Abdominal Surgery - COLOSTOMY. INTESTINAL RUPTURE, Hx Bowel Surgery - COLECTOMY/ileostomy, Hx Cardiac Catheterization, Hx Cardiac Surgery - STENTS, Hx Colostomy, Hx Coronary Stent, Hx Hysterectomy, Hx Ileostomy, Hx Orthopedic Surgery - L knee replacement, right ankle pin, Other - Tracheostomy 10 yrs ago - Immunizations Immunizations up to date: Yes Hx Diphtheria, Pertussis, Tetanus Vaccination: No History of Influenza Vaccine for 06/2017 - 11/2017 Season: Yes Influenza Administration Date for 06/2017 - 11/2017 Season: 06/06/17 Doctor's Discharge - Discharge Referrals: LISA MATA MD [Primary Care Provider] - Follow up as needed
[2019-04-16] MEDS ORDERED: TRAMADOL HCL 50 MG TABLET PO ONE (11:53)
--- NOTE | 2019-04-16 12:06 | ER Document Report ---
ED Extremity Problem, Upper - General Chief Complaint: Back Pain Stated Complaint: BACK PAIN Time Seen by Provider: 04/16/19 11:09 Primary Care Provider: LISA MATA MD [Primary Care Provider] - Follow up as needed Notes: Patient says she began having pain in her right hip/buttock region . It worsened Wednesday and Wednesday. She was hopeful of being able to see her primary care physician tomorrow, but says the pain became too unbearable. She has a history of chronic pain and is on medication (Xtampza) for that. She also takes oxycodone 10 mg for breakthrough pain. She is taking those without relief of these current symptoms. She recalls no unusual activity or injury or straining of that area and is never had this pain before. She says that it starts in the right buttock region and goes down the leg. She is able to walk with her walker at home which is the way she normally walks. Patient denies any fever. No neurologic deficits. Has a history of DVT in the left leg, but no problems with the right leg and symptoms are not like what she had with a DVT. Patient is an insulin-dependent diabetic and says her electrolytes get out of balance frequently. Also has hypertension. Heart problems. Gout. Patient denies any chest pains. Denies any abdominal pains. Patient has an ile ostomy secondary to rupture of her colon in 2006. TRAVEL OUTSIDE OF THE [place] IN LAST 30 DAYS: No - Related Data Allergies/Adverse Reactions: ciprofloxacin [From Cipro] Allergy (Severe, Verified 11/16/18 14:04) Hallucinations morphine [Morphine] Allergy (Unknown, Verified 11/16/18 14:04) Past Medical History - Social History Smoking Status: Never Smoker Chew tobacco use (# tins/day): No Frequency of alcohol use: None Drug Abuse: None Family History: Reviewed & Not Pertinent, Hypertension Patient has suicidal ideation: No Patient has homicidal ideation: No - Past Medical History Cardiac Medical History: Reports: Hx Atrial Fibrillation, Hx Coronary Artery Disease, Hx DVT, Hx Heart Attack - 2002, Hx Hypercholesterolemia, Hx Hypertension Pulmonary Medical History: Reports: Hx Pneumonia - 2006 Neurological Medical History: Endocrine Medical History: Reports: Hx Diabetes Mellitus Type 1, Hx Diabetes Mellitus Type 2 Renal/ Medical History: Reports: Hx Ovarian Cysts, Hx Renal Insufficiency Malignancy Medical History: Reports: Hx Renal (Kidney) Cancer GI Medical History: Reports: Hx Gastroesophageal Reflux Disease, Hx Hiatal Hernia, Hx Irritable Bowel, Hx Ulcer Musculoskeletal Medical History: Reports Hx Arthritis - Back, Knees Traumatic Medical History: Reports: Hx Fractures Past Surgical History: Reports: Hx Abdominal Surgery - COLOSTOMY. INTESTINAL RUPTURE, Hx Bowel Surgery - COLECTOMY/ileostomy, Hx Cardiac Catheterization, Hx Cardiac Surgery - STENTS, Hx Colostomy, Hx Coronary Stent, Hx Hysterectomy, Hx Ileostomy, Hx Orthopedic Surgery - L knee replacement, right ankle pin, Other - Tracheostomy 10 yrs ago - Immunizations Immunizations up to date: Yes Hx Diphtheria, Pertussis, Tetanus Vaccination: No Hx Pneumococcal Vaccination: 09/19/13 Review of Systems - Review of Systems Notes: REVIEW OF SYSTEMS: CONSTITUTIONAL : Denies fever. Says she has felt weak. EENT: Denies eye, ear, nose or mouth or throat pain or other symptoms. CARDIOVASCULAR: Denies chest pain. RESPIRATORY: Denies cough, chest congestion, or shortness of breath. GASTROINTESTINAL: Denies abdominal pain or nausea, vomiting, or diarrhea. Has an ileostomy. GENITOURINARY: Denies difficulty or painful urinating, urinary frequency, blood in urine. MUSCULOSKELETAL: Denies back or neck pain. Denies joint pain or swelling. SKIN: Denies rash or skin lesions. NEUROLOGICAL: Denies LOC or altered mental status. Denies headache. Denies sensory loss or motor deficits. ALL OTHER SYSTEMS REVIEWED AND NEGATIVE. Physical Exam - Vital signs Vitals: Pulse Ox 97 04/16/19 11:15 Interpretation: Normal Notes: PHYSICAL EXAMINATION: GENERAL: Well-appearing, in no acute distress. Vital signs are all essentially normal. HEAD: Atraumatic, normocephalic. EYES: Pupils equal round and reactive to light, extraocular movements intact. ENT: oropharynx clear without exudates. Moist mucous membranes. NECK: Normal range of motion, supple. LUNGS: Breath sounds clear and equal bilaterally. HEART: Regular rate and rhythm without murmurs. ABDOMEN: Soft, nontender. No guarding or rebound. No masses. BACK: No tenderness throughout entire back. EXTREMITIES: Normal range of motion without pain. Patient has exquisite tenderness in the right buttock over the head of the femur. It is painful for me to move her leg in any position. Faint pulses are felt in the DP pulse distally. NEUROLOGICAL: Normal speech.. Gait not tested because patient too weak and does not have her walker here. Normal sensory, motor, and reflex exams. Awake, alert, and oriented x3. Cranial nerves normal. PSYCH: Normal mood, normal affect. SKIN: Warm, dry, no rashes. Course - Re-evaluation Re-evalutation: 04/16/19 14:43 Patient's sodium is 128 and chloride 98. Her creatinine is 3.36 with a BUN of 51. This past summer, she had creatinines in the 1.3-1.5 area. In addition, patient has an obvious significant UTI and her urine. Spoke with Dr. Fontaine, on-call for this patient's primary care provider, Dr. Michelle muhammad and the patient will be admitted for IV antibiotics and some IV saline. X-ray of the patient's hip was negative. No fracture or dislocation or lesions noted. - Vital Signs Vital signs: Temp Pulse Resp BP Pulse Ox 97 04/16/19 11:15 - Laboratory Result Diagrams: 04/16/19 12:45 04/16/19 12:45 Laboratory results interpreted by me: 04/16/19 04/16/19 04/16/19 12:45 12:45 13:15 RDW 16.8 H Lymphocytes % 10.9 L Sodium 128.6 L Potassium 5.3 H Carbon Dioxide 20 L BUN 51 H Creatinine 3.36 H Est GFR ( Amer) 17 L Est GFR (Non-Af Amer) 14 L Glucose 196 H Creatine Kinase 210 H Urine Protein 30 H Urine Glucose (UA) 50 H Urine Blood MODERATE H Urine Nitrite POSITIVE H Ur Leukocyte Esterase LARGE H Discharge - Discharge Clinical Impression: Renal insufficiency, Hyponatremia, UTI (urinary tract infection) Condition: Stable Disposition: ADMITTED INPATIENT Admitting Provider: [facility] Admitted: Medical Floor Referrals: LISA MATA MD [Primary Care Provider] - Follow up as needed
--- NOTE | 2019-04-16 12:42 | RADIOLOGY REPORT (SQ) ---
EXAM DESCRIPTION: HIP RIGHT AP/LATERAL COMPLETED DATE/TIME: 04/16/2019 12:34 pm REASON FOR STUDY: Pain right buttock region for 4 days COMPARISON: None. NUMBER OF VIEWS: Two views. TECHNIQUE: AP pelvis and additional frog-leg view of the right hip. LIMITATIONS: None. FINDINGS: MINERALIZATION: Normal. RIGHT HIP: No fracture or dislocation. No worrisome bone lesions. LEFT HIP: No fracture or dislocation. No worrisome bone lesions. PUBIS AND ISCHIUM: No fracture. PELVIS: No fracture. SACRUM: No fracture or dislocation. No worrisome bone lesions. LOWER LUMBAR SPINE: Degenerative changes. SOFT TISSUES: Gallstones. OTHER: No other significant finding. IMPRESSION: NEGATIVE STUDY OF THE RIGHT HIP. NO RADIOGRAPHIC EVIDENCE OF ACUTE INJURY. Gallstones. TECHNICAL DOCUMENTATION: JOB ID: [id number] [employer]- All Rights Reserved Reading location - IP/workstation name: [email or web address]
[2019-04-16 12:55] LABS: ABSOLUTE BASOPHILS # (AUTO) 0.1 10^3/uL (0.0-0.2); ABSOLUTE EOSINOPHILS # (AUTO) 0.1 10^3/uL (0.0-0.6); ABSOLUTE LYMPHOCYTES (AUTO) 1.1 10^3/uL (0.5-4.7); ABSOLUTE MONOCYTES (AUTO) 1.1 10^3/uL (0.1-1.4); ABSOLUTE NEUT (AUTO) 7.4 10^3/uL (1.7-8.2); BASOPHILS % (AUTO) 0.5 % (0-2); EOSINOPHILS % (AUTO) 1.2 % (0-6); HEMATOCRIT 37.8 % (36.0-47.0); HEMOGLOBIN 12.4 g/dL (12.0-15.5); LYMPHOCYTES % (AUTO) 10.9 % (13-45); MEAN CORPUSCULAR HEMOGLOBIN 30.4 pg (27.0-33.4); MEAN CORPUSCULAR HGB CONC 32.8 g/dL (32.0-36.0); MEAN CORPUSCULAR VOLUME 93 fl (80-97); MONOCYTES % (AUTO) 11.7 % (3-13); PLATELET COUNT 176 10^3/uL (150-450); RED BLOOD COUNT 4.08 10^6/uL (3.72-5.28); RED CELL DISTRIBUTION WIDTH 16.8 % (11.5-14.0); SEGMENTED NEUTROPHILS % (AUTO) 75.7 % (42-78); TOTAL CELLS COUNTED % (AUTO) 100 %; WHITE BLOOD COUNT 9.8 10^3/uL (4.0-10.5)
[2019-04-16 13:15] LABS: ALBUMIN 3.9 g/dL (3.5-5.0); ALKALINE PHOSPHATASE 91 U/L (38-126); ANION GAP 11 (5-19); ASPARTATE AMINO TRANSFERASE 32 U/L (14-36); BILIRUBIN,DIRECT 0.4 mg/dL (0.0-0.4); BILIRUBIN,TOTAL 0.4 mg/dL (0.2-1.3); BLOOD UREA NITROGEN 51 mg/dL (7-20); CALCIUM 9.5 mg/dL (8.4-10.2); CARBON DIOXIDE 20 mmol/L (22-30); CHLORIDE 98 mmol/L (98-107); CREATINE KINASE 210 U/L (30-135); GLUCOSE 196 mg/dL (75-110); POTASSIUM 5.3 mmol/L (3.6-5.0); TOTAL PROTEIN 7.5 g/dL (6.3-8.2)
[2019-04-16 13:42] LABS: AMORPHOUS SEDIMENT,URINE TRACE /HPF; APPEARANCE,URINE CLOUDY; BILIRUBIN,URINE NEGATIVE (NEGATIVE); COLOR,URINE YELLOW; GLUCOSE, URINE 50 mg/dL (NEGATIVE); KETONES,URINE NEGATIVE (NEGATIVE); LEUKOCYTE ESTERASE,URINE LARGE (NEGATIVE); NITRITE,URINE POSITIVE (NEGATIVE); PROTEIN,URINE 30 mg/dL (NEGATIVE); UROBILINOGEN,URINE NEGATIVE mg/dL (<2.0)
[2019-04-16] MEDS ORDERED: CEFTRIAXONE 1 GM/D5W RTU 1 GM/50 ML RTUPB IV ONE (14:28)
[2019-04-16] MEDS ORDERED: NORMAL SALINE 1000 ML 1,000 ML IV ONE (14:47)
[2019-04-16] MEDS ORDERED: ACETAMINOPHEN 325 MG TABLET PO PRN (15:12)
[2019-04-16] MEDS ORDERED: ONDANSETRON HCL INJ/PF 4 MG/2 ML SDV IV PRN (15:12)
[2019-04-16] MEDS ORDERED: DEXTROSE 50%-WATER 25 GM/50 ML DISP.SYRIN IV PRN ×2 (15:16)
[2019-04-16] MEDS ORDERED: GLUCAGON,HUMAN RECOMB 1 MG INJ IM PRN (15:16)
[2019-04-16] MEDS ORDERED: DEXTROSE 40% GEL 15 GM TUBE PO PRN ×2 (15:16)
[2019-04-16] MEDS ORDERED: CEFTRIAXONE SODIUM 1,000 MG in DEXTROSE 5%-WATER 50 ML IV ONE (16:00)
[2019-04-16] MEDS: INSULIN LISPRO 100 UNIT/ML 3 ML VIAL SUBCUT SCH ×2 (16:04→21:27)
--- NOTE | 2019-04-16 17:03 | RADIOLOGY REPORT (SQ) ---
EXAM DESCRIPTION: CT ABD/PELVIS NO ORAL OR IV COMPLETED DATE/TIME: 04/16/2019 4:32 pm REASON FOR STUDY: UTI, ileostomy, right hip pain COMPARISON: 09/20/2017 TECHNIQUE: CT scan of the abdomen and pelvis performed without intravenous or oral contrast. Images reviewed with lung, soft tissue, and bone windows. Reconstructed coronal and sagittal MPR images revi ewed. All images stored on PACS. All CT scanners at this facility use dose modulation, iterative reconstruction, and/or weight based d osing when appropriate to reduce radiation dose to as low as reasonably achievable (ALARA). [facility]: Dose Right [facility]: CareDose [facility]: Dose Right [facility]: Teradose 4D [facility]: [employer] RADIATION DOSE: CT Rad equipment meets quality standard of care and radiation dose reduction techniq ues were employed. CTDIvol: 18.7 mGy. DLP: 912 mGy-cm.mGy. LIMITATIONS: None. FINDINGS: LOWER CHEST: Left basilar scarring. Extensive 3 vessel coronary artery calcifications. NON-CONTRASTED LIVER, SPLEEN, ADRENALS: Evaluation limited by lack of IV contrast. No identified sign ificant masses. PANCREAS: No masses. No peripancreatic inflammatory changes. GALLBLADDER: Gallstones. No inflammatory changes to suggest cholecystitis. RIGHT KIDNEY AND URETER: No suspicious masses. Assessment limited by lack of IV contrast. No signif icant calcifications. No hydronephrosis or hydroureter. LEFT KIDNEY AND URETER: No suspicious masses. Assessment limited by lack of IV contrast. No signifi cant calcifications. No hydronephrosis or hydroureter. AORTA AND RETROPERITONEUM: No aneurysm. No retroperitoneal masses or adenopathy. Calcific atheroscle rosis. BOWEL AND PERITONEAL CAVITY: No obvious masses or inflammatory changes. Status post colectomy with a right hemiabdomen ileostomy. APPENDIX: Surgically absent. PELVIS, BLADDER, AND ABDOMINAL WALL:No abnormal masses. Status posthysterectomy. No free fluid. Mi ldly distended urinary bladder. BONES: No significant findings. OTHER: No other significant finding. IMPRESSION: 1. Status post colectomy with a right hemiabdomen ileostomy. 2. Mildly distended urinary bladder. 3. Cholelithiasis. COMMENT: Quality ID # [id number]: Final reports with documentation of one or more dose reduction techniques (e.g., Automated exposure control, adjustment of the mA and/or kV according to patient size, use of iterative reconstruction technique) TECHNICAL DOCUMENTATION: JOB ID: [id number] [employer]- All Rights Reserved Reading location - IP/workstation name: [email or web address]
--- NOTE | 2019-04-16 18:35 | PDOC H&P ---
History of Present Illness Admission Date/PCP: 04/16/19 15:17 LISA MATA MD Patient complains of: Back pain and hip pain History of Present Illness: RANDEE VELÁSQUEZ is a 63 year old female This is a 63-year-old female's with the history of the high output ileostomy several hospital admissions because of the dehydration and electrolytes derangement morbid obesity type 2 diabetes hypertension's cardiomyopathy came to the emergency department with a complaining of her back pain and right-sided hip pain Initial work-up for the x-ray was all stable but patient's electrolytes abnormal and patient's creatinine is double the last creatinine As per review the patient's chart patient have ongoing problem because of the high output ileostomy and required IV fluid very often Patient is currently receiving the 1 L of the bag once a week at home When I saw the patient on the floor denied any chest pain to than any shortness of the breath Denied any fall no injury Past Medical History Cardiac Medical History: Reports: Atrial Fibrillation, Coronary Artery Disease, DVT, Myocardial Infarction - 2002, Hyperlipidema, Hypertension Pulmonary Medical History: Reports: Pneumonia - 2006 Neurological Medical History: Endocrine Medical History: Reports: Diabetes Mellitus Type 2 Renal/ Medical History: Reports: Chronic Kidney Disease Malignancy Medical History: Reports: Renal (Kidney) Cancer GI Medical History: Reports: Gastroesophageal Reflux Disease, Hiatal Hernia Musculoskeltal Medical History: Reports: Arthritis - Back, Knees Psychiatric Medical History: Denies: Depression Hematology: Reports: Anemia Past Surgical History Past Surgical History: Reports: Cardiac Catheterization, Colostomy, Coronary Stent, Hysterectomy, Ileostomy, Orthopedic Surgery - L knee replacement, right ankle pin, Other - Tracheostomy 10 yrs ago Social History Information Source: Patient Smoking Status: Never Smoker Frequency of Alcohol Use: None Hx Recreational Drug Use: No Drugs: None Hx Prescription Drug Abuse: No Family History Family History: Reviewed & Not Pertinent, Hypertension Parental Family History Reviewed: Yes Children Family History Reviewed: Yes Sibling(s) Family History Reviewed.: Yes Medication/Allergy Home Medications: Allopurinol [Zyloprim 100 mg Tablet] 100 mg PO DAILY 01/31/19 Betamet Diprop/Prop Gly [Betamethasone Dp Aug 0.05% Cream] 1 applic TP BID 01/31/19 Calcitriol [Rocaltrol 0.5 mcg Capsule] 0.5 mcg PO DAILY 01/31/19 Clotrimazole [Itch Relief] 1 applic TP BID 01/31/19 Colchicine [Colcrys 0.6 mg Tablet] 0.6 mg PO DAILY 01/31/19 Dapagliflozin Propanediol [Farxiga] 5 mg PO DAILY 01/31/19 Ergocalciferol (Vitamin D2) [Drisdol 50,000 unit (1.25MG) Capsule] 50,000 unit PO SA@1000 01/31/19 Exenatide Microspheres [Bydureon Pen] 2 mg SQ KYLE@1000 01/31/19 Gabapentin [Neurontin] 600 mg PO QID 01/31/19 Hydralazine HCl [Apresoline 50 mg Tablet] 50 mg PO TID 01/31/19 Insulin Aspart [Novolog Flexpen] 12 unit SQ TID 01/31/19 Insulin Glargine,Hum.rec.anlog [Basaglar Kwikpen U-100] 60 unit SQ BID 01/31/19 Levocetirizine Dihydrochloride [Allergy Relief] 5 mg PO QPM 01/31/19 Metoprolol Succinate [Toprol Xl] 200 mg PO DAILY 01/31/19 Nystatin [Mycostatin Cream 15 gm] 1 applic TP BID 01/31/19 Nystatin [Mycostatin Topical Powder 15 gm] 1 applic TP BID 01/31/19 Oxycodone HCl [Oxy-Ir 5 mg Tablet] 10 mg PO Q8HP PRN 01/31/19 Oxycodone Myristate [Xtampza ER] 18 mg PO Q12 01/31/19 Pravastatin Sodium [Pravachol] 40 mg PO QHS 01/31/19 Sitagliptin Phosphate [Januvia 50 mg Tablet] 50 mg PO DAILY 01/31/19 Sodium Bicarbonate [Sodium Bicarbonate 650 mg Tablet] 1,300 mg PO TID 01/31/19 Albuterol Sulfate [Albuterol Sulfate Hfa] 2 puff IH Q4HP PRN 02/20/19 Clobetasol Propionate [Temovate 0.05% Cream 15 gm] 1 applic TP BID 02/20/19 Fluconazole [Diflucan] 150 mg PO TU@1000 PRN 02/20/19 Loperamide HCl [Imodium 2 mg Capsule] 2 mg PO ASDIR PRN 02/20/19 Magnesium Oxide [Mag-Ox 400 mg Tablet] 400 mg PO DAILY 02/20/19 Nitrofurantoin Monohyd/M-Cryst [Macrobid 100 mg Capsule] 100 mg PO Q12 #10 capsule 02/24/19 Allergies/Adverse Reactions: ciprofloxacin [From Cipro] Allergy (Severe, Verified 11/16/18 14:04) Hallucinations morphine [Morphine] Allergy (Unknown, Verified 11/16/18 14:04) Review of Systems Constitutional: PRESENT: weakness. ABSENT: chills, fever(s), headache(s), weight gain, weight loss Eyes: ABSENT: visual disturbances Ears: ABSENT: hearing changes Cardiovascular: ABSENT: chest pain, dyspnea on exertion, edema, orthropnea, palpitations Respiratory: ABSENT: cough, hemoptysis Gastrointestinal: ABSENT: abdominal pain, constipation, diarrhea, hematemesis, hematochezia, nausea, vomiting Genitourinary: ABSENT: dysuria, hematuria Musculoskeletal: ABSENT: joint swelling Integumentary: ABSENT: rash, wounds Neurological: ABSENT: abnormal gait, abnormal speech, confusion, dizziness, focal weakness, syncope Psychiatric: ABSENT: anxiety, depression, homidical ideation, suicidal ideation Endocrine: ABSENT: cold intolerance, heat intolerance, menstrual abnormalities, polydipsia, polyuria Hematologic/Lymphatic: ABSENT: easy bleeding, easy bruising, lymphadenopathy Physical Exam Vital Signs: Temp Pulse Resp BP Pulse Ox 98.0 F 86 21 H 140/75 H 98 04/16/19 17:14 04/16/19 17:14 04/16/19 16:01 04/16/19 17:14 04/16/19 17:14 Intake & Output 04/15/19 04/16/19 04/17/19 06:59 06:59 06:59 Intake Total 350 Balance 350 Weight 129.274 kg General appearance: PRESENT: no acute distress, morbidly obese, well-developed, well-nourished Head exam: PRESENT: atraumatic, normocephalic Eye exam: PRESENT: conjunctiva pink, EOMI, PERRLA. ABSENT: scleral icterus Ear exam: PRESENT: normal external ear exam Mouth exam: PRESENT: moist, tongue midline Neck exam: PRESENT: full ROM. ABSENT: carotid bruit, JVD, lymphadenopathy, thyromegaly Respiratory exam: PRESENT: clear to auscultation stephen Cardiovascular exam: PRESENT: RRR. ABSENT: diastolic murmur, rubs, systolic murmur Pulses: PRESENT: normal dorsalis pedis pul, +2 pedal pulses bilateral Vascular exam: PRESENT: normal capillary refill GI/Abdominal exam: PRESENT: normal bowel sounds, soft. ABSENT: distended, guarding, mass, organolmegaly, rebound, tenderness Additonal comments: Ileostomy bag is functioning Rectal exam: PRESENT: deferred Extremities exam: ABSENT: pedal edema Neurological exam: PRESENT: alert, awake, oriented to person, oriented to place, oriented to time, oriented to situation, CN II-XII grossly intact. ABSENT: motor sensory deficit Psychiatric exam: PRESENT: appropriate affect, normal mood. ABSENT: homicidal ideation, suicidal ideation Skin exam: PRESENT: dry, intact, warm. ABSENT: cyanosis, rash Results Laboratory Results: 04/16/19 12:45 04/16/19 12:45 04/16/19 04/16/19 04/16/19 12:45 12:45 13:15 WBC 9.8 RBC 4.08 Hgb 12.4 Hct 37.8 MCV 93 MCH 30.4 MCHC 32.8 RDW 16.8 H Plt Count 176 Seg Neutrophils % 75.7 Lymphocytes % 10.9 L Monocytes % 11.7 Eosinophils % 1.2 Basophils % 0.5 Absolute Neutrophils 7.4 Absolute Lymphocytes 1.1 Absolute Monocytes 1.1 Absolute Eosinophils 0.1 Absolute Basophils 0.1 Sodium 128.6 L Potassium 5.3 H Chloride 98 Carbon Dioxide 20 L Anion Gap 11 BUN 51 H Creatinine 3.36 H Est GFR ( Amer) 17 L Est GFR (Non-Af Amer) 14 L Glucose 196 H Calcium 9.5 Total Bilirubin 0.4 AST 32 Alkaline Phosphatase 91 Total Protein 7.5 Albumin 3.9 Urine Color YELLOW Urine Appearance CLOUDY Urine pH 5.0 Ur Specific [place] 1.010 Urine Protein 30 H Urine Glucose (UA) 50 H Urine Ketones NEGATIVE Urine Blood MODERATE H Urine Nitrite POSITIVE H Ur Leukocyte Esterase LARGE H Urine WBC (Auto) >182 Urine RBC (Auto) 8 04/16/19 12:45 Creatine Kinase 210 H Impressions: Hip/Pelvis X-Ray 04/16/19 11:52 IMPRESSION: NEGATIVE STUDY OF THE RIGHT HIP. NO RADIOGRAPHIC EVIDENCE OF ACUTE INJURY. Gallstones. Abdomen/Pelvis CT 04/16/19 14:48 IMPRESSION: 1. Status post colectomy with a right hemiabdomen ileostomy. 2. Mildly distended urinary bladder. 3. Cholelithiasis. Assessment & Plan - Diagnosis (1) Acute kidney injury Is this a current diagnosis for this admission?: Yes Plan: Most likely due to the high output ileostomy will continue some IV fluid continues to Imodium (2) Chronic kidney disease, stage 3 Is this a current diagnosis for this admission?: Yes Plan: We will continues to IV fluid (3) Coronary artery disease Qualifiers: Coronary Disease-Associated Artery/Lesion type: unspecified vessel or lesion type Is this a current diagnosis for this admission?: Yes Plan: Currently all stable (4) Dehydration Is this a current diagnosis for this admission?: Yes Plan: Due to the high output ileostomy (5) Diabetes mellitus Qualifiers: Diabetes mellitus type: type 2 Chronic kidney disease stage: stage 3 (moderate) Is this a current diagnosis for this admission?: Yes Plan: Continues to sliding scale (6) High output ileostomy Is this a current diagnosis for this admission?: Yes (7) Ischemic cardiomyopathy Is this a current diagnosis for this admission?: Yes (8) Lumbar radicular syndrome Is this a current diagnosis for this admission?: Yes Plan: We will get the physical therapy evaluations (9) Morbid obesity Is this a current diagnosis for this admission?: Yes (10) Urinary tract infection Qualifiers: Urinary tract infection type: site unspecified Is this a current diagnosis for this admission?: Yes Plan: The patient on IV Rocephin - Time Time Spent: 30 to 50 Minutes Medications reviewed and adjusted accordingly: Yes Anticipated discharge: Home Within: Other - Inpatient Certification Based on my medical assessment, after consideration of the patient's comorbidities, presenting symptoms, or acuity I expect that the services needed warrant INPATIENT care.: Yes I certify that my determination is in accordance with my understanding of Medicare's requirements for reasonable and necessary INPATIENT services [42 CFR 412.3e].: Yes Medical Necessity: Need For IV Fluids, Need for IV Antibiotics Post Hospital Care: D/C Pharmacist Hospital Documentation - Plan Summary Plan Summary: Admit the patient in the telemetry bed Start on IV fluid IV Rocephin Continues on home med Physical therapy evaluations Monitor patient's cardiomyopathy with the current IV fluid
[2019-04-16] MEDS: NORMAL SALINE 1000 ML 1,000 ML IV PRN (21:25)
[2019-04-16] MEDS: ATORVASTATIN CALCIUM 10 MG TABLET PO SCH (21:25)
[2019-04-16] MEDS: HYDRALAZINE HCL 50 MG TABLET PO SCH (21:25)
[2019-04-16] MEDS: SODIUM BICARBONATE 650 MG TABLET PO SCH (21:25)
[2019-04-16] MEDS: FAMOTIDINE INJ/PF 20 MG/2 ML SDV IV SCH (21:25)
[2019-04-16] MEDS: OXYCODONE HCL IR 5 MG TABLET PO PRN (21:25)
[2019-04-16] MEDS: HEPARIN SOD (PORCINE) 5,000 UNIT/ML 1 ML VIAL SUBCUT SCH (21:25)
[2019-04-16] MEDS: METOPROLOL TARTRATE 100 MG TABLET PO SCH (21:25)
[2019-04-17] MEDS: OXYCODONE HCL IR 5 MG TABLET PO PRN ×2 (05:15→14:51)
[2019-04-17] MEDS: HYDRALAZINE HCL 50 MG TABLET PO SCH ×3 (05:16→21:27)
[2019-04-17] MEDS: HEPARIN SOD (PORCINE) 5,000 UNIT/ML 1 ML VIAL SUBCUT SCH ×3 (05:16→21:27)
[2019-04-17] MEDS: SODIUM BICARBONATE 650 MG TABLET PO SCH ×3 (05:16→21:26)
[2019-04-17 05:30] LABS: ABSOLUTE EOSINOPHILS # (AUTO) 0.4 10^3/uL (0.0-0.6); ABSOLUTE LYMPHOCYTES (AUTO) 1.1 10^3/uL (0.5-4.7); ABSOLUTE MONOCYTES (AUTO) 1.2 10^3/uL (0.1-1.4); ABSOLUTE NEUT (AUTO) 6.1 10^3/uL (1.7-8.2); BASOPHILS % (AUTO) 0.4 % (0-2); EOSINOPHILS % (AUTO) 4.8 % (0-6); HEMATOCRIT 35.3 % (36.0-47.0); HEMOGLOBIN 11.6 g/dL (12.0-15.5); LYMPHOCYTES % (AUTO) 12.6 % (13-45); MEAN CORPUSCULAR HEMOGLOBIN 30.3 pg (27.0-33.4); MEAN CORPUSCULAR HGB CONC 32.9 g/dL (32.0-36.0); MEAN CORPUSCULAR VOLUME 92 fl (80-97); MONOCYTES % (AUTO) 13.7 % (3-13); PLATELET COUNT 184 10^3/uL (150-450); RED BLOOD COUNT 3.83 10^6/uL (3.72-5.28); RED CELL DISTRIBUTION WIDTH 17.1 % (11.5-14.0); SEGMENTED NEUTROPHILS % (AUTO) 68.5 % (42-78); TOTAL CELLS COUNTED % (AUTO) 100 %; WHITE BLOOD COUNT 8.9 10^3/uL (4.0-10.5)
[2019-04-17 05:43] LABS: ANION GAP 9 (5-19); BLOOD UREA NITROGEN 43 mg/dL (7-20); CALCIUM 8.7 mg/dL (8.4-10.2); CARBON DIOXIDE 19 mmol/L (22-30); CHLORIDE 105 mmol/L (98-107); GLUCOSE 129 mg/dL (75-110); POTASSIUM 4.8 mmol/L (3.6-5.0)
[2019-04-17] MEDS: INSULIN LISPRO 100 UNIT/ML 3 ML VIAL SUBCUT SCH ×4 (08:30→22:33)
[2019-04-17] MEDS ORDERED: CEFTRIAXONE 1 GM/D5W RTU 1 GM/50 ML RTUPB IV SCH (10:00)
[2019-04-17] MEDS: FAMOTIDINE INJ/PF 20 MG/2 ML SDV IV SCH (12:02)
[2019-04-17] MEDS: MAGNESIUM OXIDE 400 MG TABLET PO SCH (12:02)
[2019-04-17] MEDS: CEFTRIAXONE SODIUM 1,000 MG in DEXTROSE 5%-WATER 50 ML IV SCH (12:02)
[2019-04-17] MEDS: ATORVASTATIN CALCIUM 10 MG TABLET PO SCH (21:26)
[2019-04-17] MEDS: METOPROLOL TARTRATE 100 MG TABLET PO SCH (21:27)
--- NOTE | 2019-04-17 23:11 | PDOC PROGRESS REPORT ---
Subjective Progress Note for:: 04/17/19 Subjective:: Patient was admitted for the management of acute on chronic kidney disease, urinary tract infection, she complain of pain around the hip joint area Reason For Visit: RENAL FAILURE Physical Exam Vital Signs: Temp Pulse Resp BP Pulse Ox 98.9 F 100 16 152/77 H 98 04/17/19 20:45 04/17/19 20:45 04/17/19 20:45 04/17/19 20:45 04/17/19 20:45 Intake & Output 04/16/19 04/17/19 04/18/19 06:59 06:59 06:59 Intake Total 1570 1281 Output Total 1050 500 Balance 520 781 Weight 125 kg General appearance: PRESENT: no acute distress Eye exam: PRESENT: PERRLA Respiratory exam: PRESENT: clear to auscultation stephen Cardiovascular exam: PRESENT: +S1, +S2 GI/Abdominal exam: PRESENT: soft Neurological exam: PRESENT: alert Results Laboratory Results: 04/17/19 05:15 04/17/19 05:15 04/17/19 04/17/19 05:15 05:15 WBC 8.9 RBC 3.83 Hgb 11.6 L Hct 35.3 L MCV 92 MCH 30.3 MCHC 32.9 RDW 17.1 H Plt Count 184 Seg Neutrophils % 68.5 Lymphocytes % 12.6 L Monocytes % 13.7 H Eosinophils % 4.8 Basophils % 0.4 Absolute Neutrophils 6.1 Absolute Lymphocytes 1.1 Absolute Monocytes 1.2 Absolute Eosinophils 0.4 Absolute Basophils 0.0 Sodium 133.3 L Potassium 4.8 Chloride 105 Carbon Dioxide 19 L Anion Gap 9 BUN 43 H Creatinine 2.69 H Est GFR ( Amer) 22 L Est GFR (Non-Af Amer) 18 L Glucose 129 H Calcium 8.7 Magnesium 1.9 04/16/19 12:45 Creatine Kinase 210 H Impressions: Hip/Pelvis X-Ray 04/16/19 11:52 IMPRESSION: NEGATIVE STUDY OF THE RIGHT HIP. NO RADIOGRAPHIC EVIDENCE OF ACUTE INJURY. Gallstones. Abdomen/Pelvis CT 04/16/19 14:48 IMPRESSION: 1. Status post colectomy with a right hemiabdomen ileostomy. 2. Mildly distended urinary bladder. 3. Cholelithiasis. Assessment & Plan - Diagnosis (1) Acute kidney injury Is this a current diagnosis for this admission?: Yes Plan: This is most likely prerenal acute kidney injury continue hydration (2) Urinary tract infection Qualifiers: Urinary tract infection type: acute cystitis Hematuria presence: without hematuria Qualified Code(s): N30.00 - Acute cystitis without hematuria Is this a current diagnosis for this admission?: Yes (3) High output ileostomy Is this a current diagnosis for this admission?: Yes
[2019-04-18] MEDS: OXYCODONE HCL IR 5 MG TABLET PO PRN ×2 (04:07→12:17)
[2019-04-18] MEDS: HEPARIN SOD (PORCINE) 5,000 UNIT/ML 1 ML VIAL SUBCUT SCH ×3 (05:42→21:24)
[2019-04-18] MEDS: SODIUM BICARBONATE 650 MG TABLET PO SCH ×3 (05:43→21:23)
[2019-04-18] MEDS: HYDRALAZINE HCL 50 MG TABLET PO SCH ×3 (05:43→21:24)
[2019-04-18 06:16] LABS: ABSOLUTE EOSINOPHILS # (AUTO) 0.3 10^3/uL (0.0-0.6); ABSOLUTE LYMPHOCYTES (AUTO) 1.3 10^3/uL (0.5-4.7); ABSOLUTE MONOCYTES (AUTO) 1.3 10^3/uL (0.1-1.4); ABSOLUTE NEUT (AUTO) 6.2 10^3/uL (1.7-8.2); BASOPHILS % (AUTO) 0.3 % (0-2); EOSINOPHILS % (AUTO) 3.7 % (0-6); HEMATOCRIT 37.3 % (36.0-47.0); HEMOGLOBIN 12.3 g/dL (12.0-15.5); LYMPHOCYTES % (AUTO) 14.2 % (13-45); MEAN CORPUSCULAR HEMOGLOBIN 30.3 pg (27.0-33.4); MEAN CORPUSCULAR VOLUME 92 fl (80-97); PLATELET COUNT 197 10^3/uL (150-450); RED BLOOD COUNT 4.05 10^6/uL (3.72-5.28); RED CELL DISTRIBUTION WIDTH 17.4 % (11.5-14.0); SEGMENTED NEUTROPHILS % (AUTO) 67.8 % (42-78); TOTAL CELLS COUNTED % (AUTO) 100 %; WHITE BLOOD COUNT 9.1 10^3/uL (4.0-10.5)
[2019-04-18 06:43] LABS: ANION GAP 6 (5-19); BLOOD UREA NITROGEN 36 mg/dL (7-20); CALCIUM 8.5 mg/dL (8.4-10.2); CARBON DIOXIDE 22 mmol/L (22-30); CHLORIDE 107 mmol/L (98-107); GLUCOSE 124 mg/dL (75-110); POTASSIUM 5.1 mmol/L (3.6-5.0)
[2019-04-18] MEDS: INSULIN LISPRO 100 UNIT/ML 3 ML VIAL SUBCUT SCH ×4 (09:07→21:24)
[2019-04-18] MEDS: MAGNESIUM OXIDE 400 MG TABLET PO SCH (12:17)
[2019-04-18] MEDS: FAMOTIDINE INJ/PF 20 MG/2 ML SDV IV SCH (12:17)
[2019-04-18] MEDS: CEFTRIAXONE SODIUM 1,000 MG in DEXTROSE 5%-WATER 50 ML IV SCH (12:18)
--- NOTE | 2019-04-18 17:32 | RADIOLOGY REPORT (SQ) ---
EXAM DESCRIPTION: HIP BILATERAL COMPLETED DATE/TIME: 04/18/2019 5:03 pm REASON FOR STUDY: hip pain COMPARISON: None. NUMBER OF VIEWS: Two views. TECHNIQUE: AP pelvis and additional frog-leg view of the right and left hip. LIMITATIONS: None. FINDINGS: MINERALIZATION: Normal. PRIMARY HIP: No fracture or dislocation. No worrisome bone lesions. OPPOSITE HIP: No fracture or dislocation. No worrisome bone lesions. PUBIS AND ISCHIUM: No fracture. PELVIS: No fracture. SACRUM: No fracture or dislocation. No worrisome bone lesions. LOWER LUMBAR SPINE: No fracture or dislocation. No worrisome bone lesions. No significant disc disea se. SOFT TISSUES: No findings. OTHER: No other significant finding. IMPRESSION: NEGATIVE STUDY OF THE RIGHT AND LEFT HIPS AND PELVIS. NO RADIOGRAPHIC EVIDENCE OF ACUTE INJURY. TECHNICAL DOCUMENTATION: JOB ID: [id number] [employer]- All Rights Reserved Reading location - IP/workstation name: [email or web address]
[2019-04-18] MEDS: NORMAL SALINE 1000 ML 1,000 ML IV PRN (17:52)
[2019-04-18] MEDS: HYDROMORPHONE HCL INJ/PF 2 MG/ML AMPULE IV PRN (20:15)
[2019-04-18] MEDS: METOPROLOL TARTRATE 100 MG TABLET PO SCH (21:23)
[2019-04-18] MEDS: ATORVASTATIN CALCIUM 10 MG TABLET PO SCH (21:24)
--- NOTE | 2019-04-18 22:43 | PDOC PROGRESS REPORT ---
Subjective Progress Note for:: 04/18/19 Reason For Visit: RENAL FAILURE Physical Exam Vital Signs: Temp Pulse Resp BP Pulse Ox 98.6 F 102 H 18 150/79 H 97 04/18/19 20:12 04/18/19 20:12 04/18/19 20:12 04/18/19 20:12 04/18/19 20:12 Intake & Output 04/17/19 04/18/19 04/19/19 06:59 06:59 06:59 Intake Total 1570 1281 130 Output Total 1050 900 200 Balance 520 381 -70 Weight 125 kg 124.7 kg General appearance: PRESENT: no acute distress Eye exam: PRESENT: PERRLA Respiratory exam: PRESENT: clear to auscultation stephen Cardiovascular exam: PRESENT: +S1, +S2 GI/Abdominal exam: PRESENT: soft Neurological exam: PRESENT: alert Results Laboratory Results: 04/18/19 05:53 04/18/19 05:53 04/18/19 04/18/19 05:53 05:53 WBC 9.1 RBC 4.05 Hgb 12.3 Hct 37.3 MCV 92 MCH 30.3 MCHC 33.0 RDW 17.4 H Plt Count 197 Seg Neutrophils % 67.8 Lymphocytes % 14.2 Monocytes % 14.0 H Eosinophils % 3.7 Basophils % 0.3 Absolute Neutrophils 6.2 Absolute Lymphocytes 1.3 Absolute Monocytes 1.3 Absolute Eosinophils 0.3 Absolute Basophils 0.0 Sodium 135.0 L Potassium 5.1 H Chloride 107 Carbon Dioxide 22 Anion Gap 6 BUN 36 H Creatinine 2.15 H Est GFR ( Amer) 28 L Est GFR (Non-Af Amer) 23 L Glucose 124 H Calcium 8.5 Magnesium 1.7 04/16/19 13:15 Catheterized Urine Urine Culture - Final Klebsiella Pneumoniae 04/16/19 12:45 Creatine Kinase 210 H Impressions: Hip/Pelvis X-Ray 04/16/19 11:52 IMPRESSION: NEGATIVE STUDY OF THE RIGHT HIP. NO RADIOGRAPHIC EVIDENCE OF ACUTE INJURY. Gallstones. Abdomen/Pelvis CT 04/16/19 14:48 IMPRESSION: 1. Status post colectomy with a right hemiabdomen ileostomy. 2. Mildly distended urinary bladder. 3. Cholelithiasis. Hip X-Ray 04/18/19 00:00 IMPRESSION: NEGATIVE STUDY OF THE RIGHT AND LEFT HIPS AND PELVIS. NO RA DIOGRAPHIC EVIDENCE OF ACUTE INJURY. Assessment & Plan - Diagnosis (1) Acute kidney injury Is this a current diagnosis for this admission?: Yes Plan: This is most likely prerenal acute kidney injury continue hydration (2) Urinary tract infection Qualifiers: Urinary tract infection type: acute cystitis Hematuria presence: without hematuria Qualified Code(s): N30.00 - Acute cystitis without hematuria Is this a current diagnosis for this admission?: Yes (3) High output ileostomy Is this a current diagnosis for this admission?: Yes (4) UTI due to Klebsiella species Is this a current diagnosis for this admission?: Yes Plan: Continue IV antibiotic
[2019-04-19] MEDS: HYDROMORPHONE HCL INJ/PF 2 MG/ML AMPULE IV PRN ×6 (00:16→22:48)
[2019-04-19] MEDS: NORMAL SALINE 1000 ML 1,000 ML IV PRN ×2 (03:52→14:13)
[2019-04-19] MEDS: OXYCODONE HCL IR 5 MG TABLET PO PRN (03:56)
[2019-04-19] MEDS: HYDRALAZINE HCL 50 MG TABLET PO SCH ×3 (05:01→21:30)
[2019-04-19] MEDS: SODIUM BICARBONATE 650 MG TABLET PO SCH ×3 (05:02→21:30)
[2019-04-19] MEDS: HEPARIN SOD (PORCINE) 5,000 UNIT/ML 1 ML VIAL SUBCUT SCH ×3 (05:02→21:32)
[2019-04-19 05:57] LABS: ABSOLUTE EOSINOPHILS # (AUTO) 0.5 10^3/uL (0.0-0.6); ABSOLUTE LYMPHOCYTES (AUTO) 1.2 10^3/uL (0.5-4.7); ABSOLUTE MONOCYTES (AUTO) 0.9 10^3/uL (0.1-1.4); ABSOLUTE NEUT (AUTO) 3.9 10^3/uL (1.7-8.2); BASOPHILS % (AUTO) 0.4 % (0-2); EOSINOPHILS % (AUTO) 7.4 % (0-6); HEMATOCRIT 35.5 % (36.0-47.0); HEMOGLOBIN 11.6 g/dL (12.0-15.5); LYMPHOCYTES % (AUTO) 18.3 % (13-45); MEAN CORPUSCULAR HEMOGLOBIN 30.2 pg (27.0-33.4); MEAN CORPUSCULAR HGB CONC 32.8 g/dL (32.0-36.0); MEAN CORPUSCULAR VOLUME 92 fl (80-97); MONOCYTES % (AUTO) 14.2 % (3-13); PLATELET COUNT 163 10^3/uL (150-450); RED BLOOD COUNT 3.85 10^6/uL (3.72-5.28); RED CELL DISTRIBUTION WIDTH 16.7 % (11.5-14.0); SEGMENTED NEUTROPHILS % (AUTO) 59.7 % (42-78); TOTAL CELLS COUNTED % (AUTO) 100 %; WHITE BLOOD COUNT 6.5 10^3/uL (4.0-10.5)
[2019-04-19 06:24] LABS: ANION GAP 6 (5-19); BLOOD UREA NITROGEN 27 mg/dL (7-20); CALCIUM 8.9 mg/dL (8.4-10.2); CARBON DIOXIDE 23 mmol/L (22-30); CHLORIDE 111 mmol/L (98-107); GLUCOSE 122 mg/dL (75-110); POTASSIUM 5.1 mmol/L (3.6-5.0)
[2019-04-19] MEDS: INSULIN LISPRO 100 UNIT/ML 3 ML VIAL SUBCUT SCH ×4 (08:17→21:31)
[2019-04-19] MEDS: MAGNESIUM OXIDE 400 MG TABLET PO SCH (09:21)
[2019-04-19] MEDS: FAMOTIDINE INJ/PF 20 MG/2 ML SDV IV SCH (09:22)
[2019-04-19] MEDS: CEFTRIAXONE SODIUM 1,000 MG in DEXTROSE 5%-WATER 50 ML IV SCH (11:03)
[2019-04-19] MEDS: ONDANSETRON HCL INJ/PF 4 MG/2 ML SDV IV PRN (16:02)
[2019-04-19] MEDS: GABAPENTIN 300 MG CAPSULE PO SCH (19:34)
--- NOTE | 2019-04-19 20:34 | PDOC PROGRESS REPORT ---
Subjective Progress Note for:: 04/19/19 Subjective:: She complained of epigastric pain Reason For Visit: RENAL FAILURE Physical Exam Vital Signs: Temp Pulse Resp BP Pulse Ox 98.8 F 96 19 163/81 H 99 04/19/19 15:53 04/19/19 15:53 04/19/19 15:53 04/19/19 15:53 04/19/19 15:53 Intake & Output 04/18/19 04/19/19 04/20/19 06:59 06:59 06:59 Intake Total 1281 1180 2191 Output Total 113 281 2714 Balance 381 380 791 Weight 124.7 kg 126.5 kg General appearance: PRESENT: no acute distress Eye exam: PRESENT: PERRLA Respiratory exam: PRESENT: clear to auscultation stephen Cardiovascular exam: PRESENT: +S1, +S2 GI/Abdominal exam: PRESENT: soft Neurological exam: PRESENT: alert Results Laboratory Results: 04/19/19 04:45 04/19/19 04:45 04/19/19 04/19/19 04:45 04:45 WBC 6.5 RBC 3.85 Hgb 11.6 L Hct 35.5 L MCV 92 MCH 30.2 MCHC 32.8 RDW 16.7 H Plt Count 163 Seg Neutrophils % 59.7 Lymphocytes % 18.3 Monocytes % 14.2 H Eosinophils % 7.4 H Basophils % 0.4 Absolute Neutrophils 3.9 Absolute Lymphocytes 1.2 Absolute Monocytes 0.9 Absolute Eosinophils 0.5 Absolute Basophils 0.0 Sodium 140.4 Potassium 5.1 H Chloride 111 H Carbon Dioxide 23 Anion Gap 6 BUN 27 H Creatinine 1.81 H Est GFR ( Amer) 34 L Est GFR (Non-Af Amer) 28 L Glucose 122 H Calcium 8.9 Magnesium 1.7 04/16/19 12:45 Creatine Kinase 210 H Impressions: Hip/Pelvis X-Ray 04/16/19 11:52 IMPRESSION: NEGATIVE STUDY OF THE RIGHT HIP. NO RADIOGRAPHIC EVIDENCE OF ACUTE INJURY. Gallstones. Abdomen/Pelvis CT 04/16/19 14:48 IMPRESSION: 1. Status post colectomy with a right hemiabdomen ileostomy. 2. Mildly distended urinary bladder. 3. Cholelithiasis. Hip X-Ray 04/18/19 00:00 IMPRESSION: NEGATIVE STUDY OF THE RIGHT AND LEFT HIPS AND PELVIS. NO RADIOGRAPHIC EVIDENCE OF ACUTE INJURY. Assessment & Plan - Diagnosis (1) Acute kidney injury Is this a current diagnosis for this admission?: Yes (2) Urinary tract infection Qualifiers: Urinary tract infection type: acute cystitis Hematuria presence: without hematuria Qualified Code(s): N30.00 - Acute cystitis without hematuria Is this a current diagnosis for this admission?: Yes (3) High output ileostomy Is this a current diagnosis for this admission?: Yes (4) UTI due to Klebsiella species Is this a current diagnosis for this admission?: Yes (5) Epigastric pain Is this a current diagnosis for this admission?: Yes Plan: Obtain upper GI series
[2019-04-19] MEDS: METOPROLOL TARTRATE 100 MG TABLET PO SCH (21:30)
[2019-04-19] MEDS: ATORVASTATIN CALCIUM 10 MG TABLET PO SCH (21:30)
[2019-04-20] MEDS: GABAPENTIN 300 MG CAPSULE PO SCH ×4 (00:23→21:24)
[2019-04-20] MEDS: NORMAL SALINE 1000 ML 1,000 ML IV PRN ×2 (00:27→13:18)
[2019-04-20] MEDS: HYDROMORPHONE HCL INJ/PF 2 MG/ML AMPULE IV PRN ×5 (03:19→21:45)
[2019-04-20] MEDS: HYDRALAZINE HCL 50 MG TABLET PO SCH ×3 (05:27→21:24)
[2019-04-20] MEDS: HEPARIN SOD (PORCINE) 5,000 UNIT/ML 1 ML VIAL SUBCUT SCH ×3 (05:28→21:23)
[2019-04-20] MEDS: SODIUM BICARBONATE 650 MG TABLET PO SCH ×3 (05:28→21:24)
[2019-04-20] MEDS: INSULIN LISPRO 100 UNIT/ML 3 ML VIAL SUBCUT SCH ×4 (08:09→22:07)
[2019-04-20] MEDS: FAMOTIDINE INJ/PF 20 MG/2 ML SDV IV SCH (09:14)
[2019-04-20] MEDS: CEFTRIAXONE SODIUM 1,000 MG in DEXTROSE 5%-WATER 50 ML IV SCH (09:15)
[2019-04-20] MEDS: CALCITRIOL 0.25 MCG CAPSULE PO SCH (09:22)
[2019-04-20] MEDS: MAGNESIUM OXIDE 400 MG TABLET PO SCH (09:23)
[2019-04-20] MEDS: SITAGLIPTIN PHOSPHATE 50 MG TABLET PO SCH (09:24)
[2019-04-20] MEDS: ALLOPURINOL 100 MG TABLET PO SCH (09:24)
[2019-04-20] MEDS: COLCHICINE 0.6 MG TABLET PO SCH (09:29)
[2019-04-20] MEDS ORDERED: (PENDING PHARMACY ID) (Dapagliflozin Propanediol [Farxiga] 5 MG) PO SCH (10:00)
--- NOTE | 2019-04-20 15:43 | RADIOLOGY REPORT (SQ) ---
EXAM DESCRIPTION: UPPER GI/SM BOWEL COMPLETED DATE/TIME: 04/20/2019 1:45 pm REASON FOR STUDY: EPIGASTRIC PAIN COMPARISON: None. TECHNIQUE: Under fluoroscopic guidance, patient ingested thin barium. Fluoroscopic spot images and routine radiographic images acquired and stored on PACS. Following evaluation of esophagus and stomach, additional barium administered with serial delayed abd ominal radiographs until colonic identification. Fluoroscopic images recorded of the terminal ileum. 12 MM BARIUM TABLET GIVEN: No FLUOROSCOPY TIME: 1.3 minutes 10 images saved to PACS. LIMITATIONS: Patient unable to stand, therefore images acquired in supine position with thin barium only. FINDINGS: NEUROMUSCULAR COORDINATION OF SWALLOW: Normal. No aspiration. ESOPHAGEAL MOTILITY: Normal peristalsis. No esophageal spasm. 12 MM TABLET TRANSIT TIME: Normal. No delay at the GE junction. ESOPHAGEAL MUCOSA: Normal mucosa without masses or ulceration. GASTRO-ESOPHAGEAL JUNCTION: No hiatal hernia or reflux. STOMACH: Normal without masses or ulcerations. GASTRIC OUTLET: No delay in emptying. Normal pylorus. DUODENAL BULB: Normal distention. No spasm or ulceration. DUODENUM: Mucosa normal. No extrinsic masses or malrotation. PROXIMAL SMALL BOWEL: Normal as visualized. JEJUNUM: Normal mucosal pattern. No dilatation, segmentation, strictures or masses. ILEUM: Normal mucosal pattern. No dilatation, segmentation, strictures or masses. TERMINAL ILEUM AND ILEO-CECAL VALVE: Not assessed. Patient has right lower quadrant ileostomy. PROXIMAL COLON: Not assessed. History of colectomy. NON-GI TRACT STRUCTURES: No significant finding. OTHER: Normal small bowel transit time of 3 hours. IMPRESSION: NORMAL LIMITED SINGLE CONTRAST SWALLOW / UPPER GI SERIES / SMALL BOWEL SERIES. COMMENT: None Quality ID [id number]: Final reports for procedures using fluoroscopy that document radiation exposure elham nicho, or exposure time and number of fluorographic images (if radiation exposure indices are not avail able) TECHNICAL DOCUMENTATION: JOB ID: [id number] [employer]- All Rights Reserved Reading location - IP/workstation name: [email or web address]
[2019-04-20] MEDS: ATORVASTATIN CALCIUM 10 MG TABLET PO SCH (21:24)
[2019-04-20] MEDS: METOPROLOL TARTRATE 100 MG TABLET PO SCH (21:24)
--- NOTE | 2019-04-20 21:31 | PDOC PROGRESS REPORT ---
Subjective Progress Note for:: 04/20/19 Subjective:: Upper GI series was done today it was normal, She complained of vaginal discharge Reason For Visit: RENAL FAILURE Physical Exam Vital Signs: Temp Pulse Resp BP Pulse Ox 98.3 F 84 18 177/97 H 98 04/20/19 07:22 04/20/19 14:00 04/20/19 07:22 04/20/19 07:22 04/20/19 07:22 Intake & Output 04/19/19 04/20/19 04/21/19 06:59 06:59 06:59 Intake Total 1180 3451 1050 Output Total 800 2300 350 Balance 380 1151 700 Weight 126.5 kg 124.4 kg General appearance: PRESENT: no acute distress Eye exam: PRESENT: PERRLA Respiratory exam: PRESENT: clear to auscultation stephen Cardiovascular exam: PRESENT: +S1, +S2 Neurological exam: PRESENT: alert Results Laboratory Results: 04/19/19 04:45 04/19/19 04:45 04/16/19 12:45 Creatine Kinase 210 H Impressions: Hip/Pelvis X-Ray 04/16/19 11:52 IMPRESSION: NEGATIVE STUDY OF THE RIGHT HIP. NO RADIOGRAPHIC EVIDENCE OF ACUTE INJURY. Gallstones. Abdomen/Pelvis CT 04/16/19 14:48 IMPRESSION: 1. Status post colectomy with a right hemiabdomen ileostomy. 2. Mildly distended urinary bladder. 3. Cholelithiasis. Hip X-Ray 04/18/19 00:00 IMPRESSION: NEGATIVE STUDY OF THE RIGHT AND LEFT HIPS AND PELVIS. NO RADIOGRAPHIC EVIDENCE OF ACUTE INJURY. Upper GI and Small Bowel X-Ray 04/20/19 00:00 IMPRESSION: NORMAL LIMITED SINGLE CONTRAST SWALLOW / UPPER GI SERIES / SMALL BOWEL SERIES. Assessment & Plan - Diagnosis (1) Acute kidney injury Is this a current diagnosis for this admission?: Yes Plan: Improving (2) Urinary tract infection Qualifiers: Urinary tract infection type: acute cystitis Hematuria presence: without hematuria Qualified Code(s): N30.00 - Acute cystitis without hematuria Is this a current diagnosis for this admission?: Yes (3) High output ileostomy Is this a current diagnosis for this admission?: Yes (4) UTI due to Klebsiella species Is this a current diagnosis for this admission?: Yes (5) Epigastric pain Is this a current diagnosis for this admission?: Yes
[2019-04-20 22:13] LABS: ALKALINE PHOSPHATASE 84 U/L (38-126); ANION GAP 8 (5-19); ASPARTATE AMINO TRANSFERASE 35 U/L (14-36); BILIRUBIN,DIRECT 0.2 mg/dL (0.0-0.4); BILIRUBIN,TOTAL 0.2 mg/dL (0.2-1.3); BLOOD UREA NITROGEN 17 mg/dL (7-20); CALCIUM 8.5 mg/dL (8.4-10.2); CARBON DIOXIDE 22 mmol/L (22-30); CHLORIDE 112 mmol/L (98-107); GLUCOSE 121 mg/dL (75-110); POTASSIUM 4.6 mmol/L (3.6-5.0); TOTAL PROTEIN 6.2 g/dL (6.3-8.2)
[2019-04-21] MEDS: HYDROMORPHONE HCL INJ/PF 2 MG/ML AMPULE IV PRN ×4 (03:02→20:12)
[2019-04-21] MEDS: SODIUM BICARBONATE 650 MG TABLET PO SCH ×3 (05:12→22:01)
[2019-04-21] MEDS: PANTOPRAZOLE SODIUM 40 MG TABLET.DR PO SCH (05:12)
[2019-04-21] MEDS: HYDRALAZINE HCL 50 MG TABLET PO SCH ×3 (05:13→22:01)
[2019-04-21] MEDS: HEPARIN SOD (PORCINE) 5,000 UNIT/ML 1 ML VIAL SUBCUT SCH ×3 (05:14→22:01)
[2019-04-21 06:17] LABS: ALBUMIN 3.1 g/dL (3.5-5.0); ALKALINE PHOSPHATASE 81 U/L (38-126); ANION GAP 9 (5-19); ASPARTATE AMINO TRANSFERASE 37 U/L (14-36); BILIRUBIN,DIRECT 0.3 mg/dL (0.0-0.4); BILIRUBIN,TOTAL 0.3 mg/dL (0.2-1.3); BLOOD UREA NITROGEN 17 mg/dL (7-20); CALCIUM 8.6 mg/dL (8.4-10.2); CARBON DIOXIDE 23 mmol/L (22-30); CHLORIDE 112 mmol/L (98-107); GLUCOSE 264 mg/dL (75-110); POTASSIUM 4.6 mmol/L (3.6-5.0); TOTAL PROTEIN 6.4 g/dL (6.3-8.2)
[2019-04-21 06:38] LABS: EPITHELIALS (WET MOUNT) 3+ EPITHELIALS SEEN; RBCS (WET MOUNT) RARE RBCS SEEN; T.VAGINALIS (WET MOUNT) NO TRICHOMONAS SEEN; WBCS (WET MOUNT) RARE WBCS SEEN; YEAST (WET MOUNT) BUDDING YEAST SEEN
[2019-04-21] MEDS: INSULIN LISPRO 100 UNIT/ML 3 ML VIAL SUBCUT SCH ×4 (09:05→22:01)
[2019-04-21] MEDS: NORMAL SALINE 1000 ML 1,000 ML IV PRN ×2 (09:17→20:16)
[2019-04-21] MEDS: GABAPENTIN 300 MG CAPSULE PO SCH ×2 (09:21→22:00)
[2019-04-21] MEDS: CALCITRIOL 0.25 MCG CAPSULE PO SCH (09:21)
[2019-04-21] MEDS: FAMOTIDINE INJ/PF 20 MG/2 ML SDV IV SCH (09:21)
[2019-04-21] MEDS: CEFTRIAXONE SODIUM 1,000 MG in DEXTROSE 5%-WATER 50 ML IV SCH (09:21)
[2019-04-21] MEDS: MAGNESIUM OXIDE 400 MG TABLET PO SCH (09:22)
[2019-04-21] MEDS: ALLOPURINOL 100 MG TABLET PO SCH (09:22)
[2019-04-21] MEDS: SITAGLIPTIN PHOSPHATE 50 MG TABLET PO SCH (09:22)
[2019-04-21] MEDS: COLCHICINE 0.6 MG TABLET PO SCH (09:27)
--- NOTE | 2019-04-21 18:49 | PDOC PROGRESS REPORT ---
Subjective Progress Note for:: 04/21/19 Subjective:: Patient is alert ,she continues to complain of epigastric pain Reason For Visit: RENAL FAILURE Physical Exam Vital Signs: Temp Pulse Resp BP Pulse Ox 98.4 F 98 14 157/90 H 95 04/20/19 23:46 04/21/19 14:00 04/20/19 23:46 04/20/19 23:46 04/20/19 23:46 Intake & Output 04/20/19 04/21/19 04/22/19 06:59 06:59 06:59 Intake Total 3451 2310 1253 Output Total 2300 1870 1050 Balance 1151 440 203 Weight 124.4 kg 124.8 kg General appearance: PRESENT: no acute distress Eye exam: PRESENT: PERRLA Cardiovascular exam: PRESENT: +S1, +S2 GI/Abdominal exam: PRESENT: soft Neurological exam: PRESENT: alert Results Laboratory Results: 04/19/19 04:45 04/21/19 05:20 04/20/19 04/21/19 21:41 05:20 Sodium 141.9 143.6 Potassium 4.6 4.6 Chloride 112 H 112 H Carbon Dioxide 22 23 Anion Gap 8 9 BUN 17 17 Creatinine 1.35 H 1.47 H Est GFR ( Amer) 48 L 44 L Est GFR (Non-Af Amer) 40 L 36 L Glucose 121 H 264 H Calcium 8.5 8.6 Total Bilirubin 0.2 0.3 AST 35 37 H Alkaline Phosphatase 84 81 Total Protein 6.2 L 6.4 Albumin 3.0 L 3.1 L 04/16/19 16:10 Blood Blood Culture - Final NO GROWTH IN 5 DAYS 04/16/19 12:45 Creatine Kinase 210 H Impressions: Hip/Pelvis X-Ray 04/16/19 11:52 IMPRESSION: NEGATIVE STUDY OF THE RIGHT HIP. NO RADIOGRAPHIC EVIDENCE OF ACUTE INJURY. Gallstones. Abdomen/Pelvis CT 04/16/19 14:48 IMPRESSION: 1. Status post colectomy with a right hemiabdomen ileostomy. 2. Mildly distended urinary bladder. 3. Cholelithiasis. Hip X-Ray 04/18/19 00:00 IMPRESSION: NEGATIVE STUDY OF THE RIGHT AND LEFT HIPS AND PELVIS. NO RADIOGRAPH IC EVIDENCE OF ACUTE INJURY. Upper GI and Small Bowel X-Ray 04/20/19 00:00 IMPRESSION: NORMAL LIMITED SINGLE CONTRAST SWALLOW / UPPER GI SERIES / SMALL BOWEL SERIES. Assessment & Plan - Diagnosis (1) Acute kidney injury Is this a current diagnosis for this admission?: Yes Plan: Improving (2) Urinary tract infection Qualifiers: Urinary tract infection type: acute cystitis Hematuria presence: without hematuria Qualified Code(s): N30.00 - Acute cystitis without hematuria Is this a current diagnosis for this admission?: Yes (3) High output ileostomy Is this a current diagnosis for this admission?: Yes (4) UTI due to Klebsiella species Is this a current diagnosis for this admission?: Yes (5) Epigastric pain Is this a current diagnosis for this admission?: Yes
[2019-04-21] MEDS: METOPROLOL TARTRATE 100 MG TABLET PO SCH (22:00)
[2019-04-21] MEDS: ATORVASTATIN CALCIUM 10 MG TABLET PO SCH (22:01)
[2019-04-22] MEDS: HYDROMORPHONE HCL INJ/PF 2 MG/ML AMPULE IV PRN ×6 (00:52→23:02)
[2019-04-22] MEDS: SODIUM BICARBONATE 650 MG TABLET PO SCH ×3 (05:05→21:41)
[2019-04-22] MEDS: HYDRALAZINE HCL 50 MG TABLET PO SCH ×3 (05:05→21:42)
[2019-04-22] MEDS: HEPARIN SOD (PORCINE) 5,000 UNIT/ML 1 ML VIAL SUBCUT SCH ×3 (05:05→21:42)
[2019-04-22] MEDS: PANTOPRAZOLE SODIUM 40 MG TABLET.DR PO SCH (05:05)
[2019-04-22] MEDS: NORMAL SALINE 1000 ML 1,000 ML IV PRN ×2 (06:03→17:39)
[2019-04-22] MEDS: INSULIN LISPRO 100 UNIT/ML 3 ML VIAL SUBCUT SCH ×4 (09:13→21:49)
[2019-04-22] MEDS: FAMOTIDINE INJ/PF 20 MG/2 ML SDV IV SCH (09:31)
[2019-04-22] MEDS: GABAPENTIN 300 MG CAPSULE PO SCH ×2 (09:31→21:42)
[2019-04-22] MEDS: CALCITRIOL 0.25 MCG CAPSULE PO SCH (09:31)
[2019-04-22] MEDS: SITAGLIPTIN PHOSPHATE 50 MG TABLET PO SCH (09:32)
[2019-04-22] MEDS: ALLOPURINOL 100 MG TABLET PO SCH (09:32)
[2019-04-22] MEDS: MAGNESIUM OXIDE 400 MG TABLET PO SCH (09:32)
[2019-04-22] MEDS: COLCHICINE 0.6 MG TABLET PO SCH (09:32)
[2019-04-22] MEDS: CEFTRIAXONE SODIUM 1,000 MG in DEXTROSE 5%-WATER 50 ML IV SCH (09:32)
[2019-04-22] MEDS: ERGOCALCIFEROL (VITAMIN D2) 50000 UNIT (1.25 MG) CAPSULE PO SCH (09:32)
--- NOTE | 2019-04-22 13:19 | PDOC PROGRESS REPORT ---
Subjective Progress Note for:: 04/22/19 Subjective:: Patient seen by the bedside she complained of malaise blood pressure is elevated, adjust medication Reason For Visit: RENAL FAILURE Physical Exam Vital Signs: Temp Pulse Resp BP Pulse Ox 97.4 F 89 20 165/72 H 96 04/22/19 03:13 04/22/19 03:13 04/22/19 03:13 04/22/19 03:13 04/22/19 03:13 Intake & Output 04/21/19 04/22/19 04/23/19 06:59 06:59 06:59 Intake Total 2310 3541 Output Total 1870 1900 Balance 440 1641 Weight 124.8 kg 126 kg General appearance: PRESENT: no acute distress Eye exam: PRESENT: PERRLA Respiratory exam: PRESENT: clear to auscultation stephen Cardiovascular exam: PRESENT: +S1, +S2 Neurological exam: PRESENT: alert Results Laboratory Results: 04/19/19 04:45 04/21/19 05:20 04/16/19 20:40 Blood Blood Culture - Final NO GROWTH IN 5 DAYS 04/16/19 16:10 Blood Blood Culture - Final NO GROWTH IN 5 DAYS 04/16/19 12:45 Creatine Kinase 210 H Impressions: Hip/Pelvis X-Ray 04/16/19 11:52 IMPRESSION: NEGATIVE STUDY OF THE RIGHT HIP. NO RADIOGRAPHIC EVIDENCE OF ACUTE INJURY. Gallstones. Abdomen/Pelvis CT 04/16/19 14:48 IMPRESSION: 1. Status post colectomy with a right hemiabdomen ileostomy. 2. Mildly distended urinary bladder. 3. Cholelithiasis. Hip X-Ray 04/18/19 00:00 IMPRESSION: NEGATIVE STUDY OF THE RIGHT AND LEFT HIPS AND PELVIS. NO RADIOGRAPHIC EVIDENCE OF ACUTE INJURY. Upper GI and Small Bowel X-Ray 04/20/19 00:00 IMPRESSION: NORMAL LIMITED SINGLE CONTRAST SWALLOW / UPPER GI SERIES / SMALL BOWEL SERIES. Assessment & Plan - Diagnosis (1) Acute kidney injury Is this a current diagnosis for this admission?: Yes (2) Urinary tract infection Qualifiers: Urinary tract infection type: acute cystitis Hematuria presence: without hematuria Qualified Code(s): N30.00 - Acute cystitis without hematuria Is this a current diagnosis for this admission?: Yes (3) High output ileostomy Is this a current diagnosis for this admission?: Yes (4) UTI due to Klebsiella species Is this a current diagnosis for this admission?: Yes (5) Epigastric pain Is this a current diagnosis for this admission?: Yes (6) Essential (primary) hypertension Is this a current diagnosis for this admission?: Yes Plan: Start amlodipine
[2019-04-22] MEDS: AMLODIPINE BESYLATE 10 MG TABLET PO SCH (14:32)
[2019-04-22 14:33] LABS: ABSOLUTE BASOPHILS # (AUTO) 0.1 10^3/uL (0.0-0.2); ABSOLUTE EOSINOPHILS # (AUTO) 0.4 10^3/uL (0.0-0.6); ABSOLUTE LYMPHOCYTES (AUTO) 0.9 10^3/uL (0.5-4.7); ABSOLUTE MONOCYTES (AUTO) 0.5 10^3/uL (0.1-1.4); ABSOLUTE NEUT (AUTO) 5.4 10^3/uL (1.7-8.2); BASOPHILS % (AUTO) 0.9 % (0-2); EOSINOPHILS % (AUTO) 5.3 % (0-6); HEMOGLOBIN 11.9 g/dL (12.0-15.5); LYMPHOCYTES % (AUTO) 12.2 % (13-45); MEAN CORPUSCULAR HEMOGLOBIN 29.4 pg (27.0-33.4); MEAN CORPUSCULAR HGB CONC 32.1 g/dL (32.0-36.0); MEAN CORPUSCULAR VOLUME 91 fl (80-97); MONOCYTES % (AUTO) 7.3 % (3-13); PLATELET COUNT 147 10^3/uL (150-450); RED BLOOD COUNT 4.04 10^6/uL (3.72-5.28); RED CELL DISTRIBUTION WIDTH 16.9 % (11.5-14.0); SEGMENTED NEUTROPHILS % (AUTO) 74.3 % (42-78); TOTAL CELLS COUNTED % (AUTO) 100 %; WHITE BLOOD COUNT 7.3 10^3/uL (4.0-10.5)
[2019-04-22 14:52] LABS: ALBUMIN 3.2 g/dL (3.5-5.0); ALKALINE PHOSPHATASE 80 U/L (38-126); ANION GAP 7 (5-19); ASPARTATE AMINO TRANSFERASE 45 U/L (14-36); BILIRUBIN,DIRECT 0.2 mg/dL (0.0-0.4); BILIRUBIN,TOTAL 0.2 mg/dL (0.2-1.3); BLOOD UREA NITROGEN 14 mg/dL (7-20); CALCIUM 8.8 mg/dL (8.4-10.2); CARBON DIOXIDE 25 mmol/L (22-30); CHLORIDE 110 mmol/L (98-107); GLUCOSE 110 mg/dL (75-110); POTASSIUM 4.5 mmol/L (3.6-5.0); TOTAL PROTEIN 6.3 g/dL (6.3-8.2)
[2019-04-22] MEDS: ATORVASTATIN CALCIUM 10 MG TABLET PO SCH (21:41)
[2019-04-22] MEDS: METOPROLOL TARTRATE 100 MG TABLET PO SCH (21:41)
[2019-04-23] MEDS: HYDROMORPHONE HCL INJ/PF 2 MG/ML AMPULE IV PRN ×6 (03:10→23:17)
[2019-04-23] MEDS: NORMAL SALINE 1000 ML 1,000 ML IV PRN (03:11)
[2019-04-23] MEDS: PANTOPRAZOLE SODIUM 40 MG TABLET.DR PO SCH (06:35)
[2019-04-23] MEDS: HYDRALAZINE HCL 50 MG TABLET PO SCH ×3 (06:35→21:52)
[2019-04-23] MEDS: HEPARIN SOD (PORCINE) 5,000 UNIT/ML 1 ML VIAL SUBCUT SCH ×3 (06:35→21:49)
[2019-04-23] MEDS: SODIUM BICARBONATE 650 MG TABLET PO SCH ×3 (06:35→21:52)
[2019-04-23 07:05] LABS: ABSOLUTE EOSINOPHILS # (AUTO) 0.4 10^3/uL (0.0-0.6); ABSOLUTE MONOCYTES (AUTO) 0.5 10^3/uL (0.1-1.4); ABSOLUTE NEUT (AUTO) 5.4 10^3/uL (1.7-8.2); BASOPHILS % (AUTO) 0.7 % (0-2); EOSINOPHILS % (AUTO) 5.5 % (0-6); HEMATOCRIT 36.7 % (36.0-47.0); HEMOGLOBIN 11.8 g/dL (12.0-15.5); LYMPHOCYTES % (AUTO) 13.5 % (13-45); MEAN CORPUSCULAR HEMOGLOBIN 29.8 pg (27.0-33.4); MEAN CORPUSCULAR HGB CONC 32.1 g/dL (32.0-36.0); MEAN CORPUSCULAR VOLUME 93 fl (80-97); MONOCYTES % (AUTO) 6.5 % (3-13); PLATELET COUNT 131 10^3/uL (150-450); RED BLOOD COUNT 3.95 10^6/uL (3.72-5.28); RED CELL DISTRIBUTION WIDTH 17.4 % (11.5-14.0); SEGMENTED NEUTROPHILS % (AUTO) 73.8 % (42-78); TOTAL CELLS COUNTED % (AUTO) 100 %; WHITE BLOOD COUNT 7.3 10^3/uL (4.0-10.5)
[2019-04-23 07:20] LABS: ALKALINE PHOSPHATASE 74 U/L (38-126); ANION GAP 6 (5-19); ASPARTATE AMINO TRANSFERASE 42 U/L (14-36); BILIRUBIN,DIRECT 0.3 mg/dL (0.0-0.4); BILIRUBIN,TOTAL 0.4 mg/dL (0.2-1.3); BLOOD UREA NITROGEN 12 mg/dL (7-20); CALCIUM 8.4 mg/dL (8.4-10.2); CARBON DIOXIDE 27 mmol/L (22-30); CHLORIDE 109 mmol/L (98-107); GLUCOSE 88 mg/dL (75-110); POTASSIUM 4.1 mmol/L (3.6-5.0)
[2019-04-23] MEDS: INSULIN LISPRO 100 UNIT/ML 3 ML VIAL SUBCUT SCH ×4 (08:57→21:50)
[2019-04-23] MEDS: COLCHICINE 0.6 MG TABLET PO SCH (10:55)
[2019-04-23] MEDS: SITAGLIPTIN PHOSPHATE 50 MG TABLET PO SCH (10:55)
[2019-04-23] MEDS: FAMOTIDINE INJ/PF 20 MG/2 ML SDV IV SCH (10:56)
[2019-04-23] MEDS: AMLODIPINE BESYLATE 10 MG TABLET PO SCH (10:56)
[2019-04-23] MEDS: CALCITRIOL 0.25 MCG CAPSULE PO SCH (10:56)
[2019-04-23] MEDS: GABAPENTIN 300 MG CAPSULE PO SCH ×2 (10:56→21:52)
[2019-04-23] MEDS: MAGNESIUM OXIDE 400 MG TABLET PO SCH (10:56)
[2019-04-23] MEDS: ALLOPURINOL 100 MG TABLET PO SCH (10:56)
[2019-04-23] MEDS: CEFTRIAXONE SODIUM 1,000 MG in DEXTROSE 5%-WATER 50 ML IV SCH (10:57)
--- NOTE | 2019-04-23 15:29 | PDOC PROGRESS REPORT ---
Subjective Progress Note for:: 04/23/19 Subjective:: No new complaints blood pressure still elevated, discontinue normal saline infusion, doubt could be a contributing factor to the elevated blood pressure Reason For Visit: RENAL FAILURE Physical Exam Vital Signs: Temp Pulse Resp BP Pulse Ox 98.2 F 78 19 161/76 H 96 04/23/19 11:14 04/23/19 11:14 04/23/19 11:14 04/23/19 11:14 04/23/19 11:14 Intake & Output 04/22/19 04/23/19 04/24/19 06:59 06:59 06:59 Intake Total 3541 3297 240 Output Total 1900 3200 Balance 1641 97 240 Weight 126 kg 125.2 kg General appearance: PRESENT: no acute distress Eye exam: PRESENT: PERRLA Respiratory exam: PRESENT: clear to auscultation stephen Cardiovascular exam: PRESENT: +S1, +S2 GI/Abdominal exam: PRESENT: soft Neurological exam: PRESENT: alert Results Laboratory Results: 04/23/19 06:35 04/23/19 06:35 04/23/19 04/23/19 06:35 06:35 WBC 7.3 RBC 3.95 Hgb 11.8 L Hct 36.7 MCV 93 MCH 29.8 MCHC 32.1 RDW 17.4 H Plt Count 131 L Seg Neutrophils % 73.8 Lymphocytes % 13.5 Monocytes % 6.5 Eosinophils % 5.5 Basophils % 0.7 Absolute Neutrophils 5.4 Absolute Lymphocytes 1.0 Absolute Monocytes 0.5 Absolute Eosinophils 0.4 Absolute Basophils 0.0 Sodium 142.1 Potassium 4.1 Chloride 109 H Carbon Dioxide 27 Anion Gap 6 BUN 12 Creatinine 1.27 H Est GFR ( Amer) 52 L Est GFR (Non-Af Amer) 43 L Glucose 88 Calcium 8.4 Total Bilirubin 0.4 AST 42 H Alkaline Phosphatase 74 Total Protein 6.0 L Albumin 3.0 L 04/16/19 12:45 Creatine Kinase 210 H Impressions: Hip/Pelvis X-Ray 04/16/19 11:52 IMPRESSION: NEGATIVE STUDY OF THE RIGHT HIP. NO RADIOGRAPHIC EVIDENCE OF ACUTE INJURY. Gallstones. Abdomen/Pelvis CT 04/16/19 14:48 IMPRESSION: 1. Status post colectomy with a right hemiabdomen ileostomy. 2. Mildly distended urinary bladder. 3. Cholelithiasis. Hip X-Ray 04/18/19 00:00 IMPRESSION: NEGATIVE STUDY OF THE RIGHT AND LEFT HIPS AND PELVIS. NO RADIOGRAPHIC EVIDENCE OF ACUTE INJURY. Upper GI and Small Bowel X-Ray 04/20/19 00:00 IMPRESSION: NORMAL LIMITED SINGLE CONTRAST SWALLOW / UPPER GI SERIES / SMALL BOWEL SERIES. Assessment & Plan - Diagnosis (1) Acute kidney injury Is this a current diagnosis for this admission?: Yes (2) Urinary tract infection Qualifiers: Urinary tract infection type: acute cystitis Hematuria presence: without hematuria Qualified Code(s): N30.00 - Acute cystitis without hematuria Is this a current diagnosis for this admission?: Yes (3) High output ileostomy Is this a current diagnosis for this admission?: Yes (4) UTI due to Klebsiella species Is this a current diagnosis for this admission?: Yes (5) Epigastric pain Is this a current diagnosis for this admission?: Yes (6) Essential (primary) hypertension Is this a current diagnosis for this admission?: Yes Plan: DC normal saline
[2019-04-23] MEDS: ATORVASTATIN CALCIUM 10 MG TABLET PO SCH (21:52)
[2019-04-23] MEDS: METOPROLOL TARTRATE 100 MG TABLET PO SCH (21:52)
[2019-04-24] MEDS: SODIUM BICARBONATE 650 MG TABLET PO SCH ×3 (05:09→21:13)
[2019-04-24] MEDS: HEPARIN SOD (PORCINE) 5,000 UNIT/ML 1 ML VIAL SUBCUT SCH ×3 (05:09→21:10)
[2019-04-24] MEDS: HYDRALAZINE HCL 50 MG TABLET PO SCH ×3 (05:09→21:13)
[2019-04-24] MEDS: PANTOPRAZOLE SODIUM 40 MG TABLET.DR PO SCH (05:09)
[2019-04-24] MEDS: HYDROMORPHONE HCL INJ/PF 2 MG/ML AMPULE IV PRN ×4 (05:10→19:59)
[2019-04-24] MEDS: INSULIN LISPRO 100 UNIT/ML 3 ML VIAL SUBCUT SCH ×4 (09:38→21:15)
[2019-04-24] MEDS: SITAGLIPTIN PHOSPHATE 50 MG TABLET PO SCH (09:52)
[2019-04-24] MEDS: AMLODIPINE BESYLATE 10 MG TABLET PO SCH (09:52)
[2019-04-24] MEDS: GABAPENTIN 300 MG CAPSULE PO SCH ×2 (09:52→21:13)
[2019-04-24] MEDS: COLCHICINE 0.6 MG TABLET PO SCH (09:52)
[2019-04-24] MEDS: CALCITRIOL 0.25 MCG CAPSULE PO SCH (09:52)
[2019-04-24] MEDS: ALLOPURINOL 100 MG TABLET PO SCH (09:52)
[2019-04-24] MEDS: MAGNESIUM OXIDE 400 MG TABLET PO SCH (09:52)
--- NOTE | 2019-04-24 20:07 | PDOC PROGRESS REPORT ---
Subjective Progress Note for:: 04/24/19 Subjective:: Patient seen by bedside the blood pressure fluctuates between low and high Reason For Visit: RENAL FAILURE Physical Exam Vital Signs: Temp Pulse Resp BP Pulse Ox 97.9 F 95 20 134/70 H 94 04/24/19 16:08 04/24/19 19:00 04/24/19 16:08 04/24/19 16:08 04/24/19 16:08 Intake & Output 04/23/19 04/24/19 04/25/19 06:59 06:59 06:59 Intake Total 3297 1610 900 Output Total 3200 2350 1575 Balance 97 -250 -675 Weight 125.2 kg 124.6 kg General appearance: PRESENT: no acute distress Eye exam: PRESENT: PERRLA Respiratory exam: PRESENT: clear to auscultation stephen Cardiovascular exam: PRESENT: +S1, +S2 GI/Abdominal exam: PRESENT: soft Results Laboratory Results: 04/23/19 06:35 04/23/19 06:35 04/16/19 12:45 Creatine Kinase 210 H Impressions: Hip/Pelvis X-Ray 04/16/19 11:52 IMPRESSION: NEGATIVE STUDY OF THE RIGHT HIP. NO RADIOGRAPHIC EVIDENCE OF ACUTE INJURY. Gallstones. Abdomen/Pelvis CT 04/16/19 14:48 IMPRESSION: 1. Status post colectomy with a right hemiabdomen ileostomy. 2. Mildly distended urinary bladder. 3. Cholelithiasis. Hip X-Ray 04/18/19 00:00 IMPRESSION: NEGATIVE STUDY OF THE RIGHT AND LEFT HIPS AND PELVIS. NO RADIOGRAPHIC EVIDENCE OF ACUTE INJURY. Upper GI and Small Bowel X-Ray 04/20/19 00:00 IMPRESSION: NORMAL LIMITED SINGLE CONTRAST SWALLOW / UPPER GI SERIES / SMALL BOWEL SERIES. Assessment & Plan - Diagnosis (1) Acute kidney injury Is this a current diagnosis for this admission?: Yes (2) Urinary tract infection Qualifiers: Urinary tract infection type: acute cystitis Hematuria presence: without hematuria Qualified Code(s): N30.00 - Acute cystitis without hematuria Is this a current diagnosis for this admission?: Yes (3) High output ileostomy Is this a current diagnosis for this admission?: Yes (4) UTI due to Klebsiella species Is this a current diagnosis for this admission?: Yes (5) Epigastric pain Is this a current diagnosis for this admission?: Yes
[2019-04-24] MEDS: FAMOTIDINE 20 MG TABLET PO SCH (21:13)
[2019-04-24] MEDS: METOPROLOL TARTRATE 100 MG TABLET PO SCH (21:13)
[2019-04-24] MEDS: ATORVASTATIN CALCIUM 10 MG TABLET PO SCH (21:13)
[2019-04-25] MEDS: HYDROMORPHONE HCL INJ/PF 2 MG/ML AMPULE IV PRN ×6 (01:10→23:16)
[2019-04-25] MEDS: HEPARIN SOD (PORCINE) 5,000 UNIT/ML 1 ML VIAL SUBCUT SCH ×3 (05:53→22:19)
[2019-04-25] MEDS: PANTOPRAZOLE SODIUM 40 MG TABLET.DR PO SCH (06:28)
[2019-04-25] MEDS: SODIUM BICARBONATE 650 MG TABLET PO SCH ×3 (06:28→22:15)
[2019-04-25] MEDS: HYDRALAZINE HCL 50 MG TABLET PO SCH ×3 (06:28→22:16)
[2019-04-25] MEDS: INSULIN LISPRO 100 UNIT/ML 3 ML VIAL SUBCUT SCH ×4 (08:56→22:20)
[2019-04-25] MEDS: SITAGLIPTIN PHOSPHATE 50 MG TABLET PO SCH (10:14)
[2019-04-25] MEDS: ALLOPURINOL 100 MG TABLET PO SCH (10:15)
[2019-04-25] MEDS: CALCITRIOL 0.25 MCG CAPSULE PO SCH (10:15)
[2019-04-25] MEDS: MAGNESIUM OXIDE 400 MG TABLET PO SCH (10:15)
[2019-04-25] MEDS: COLCHICINE 0.6 MG TABLET PO SCH (10:15)
[2019-04-25] MEDS: GABAPENTIN 300 MG CAPSULE PO SCH ×2 (10:15→22:17)
[2019-04-25] MEDS: AMLODIPINE BESYLATE 10 MG TABLET PO SCH (10:15)
[2019-04-25] MEDS: LOPERAMIDE HCL 2 MG CAPSULE PO PRN (10:18)
[2019-04-25] MEDS ORDERED: NORMAL SALINE 1000 ML 1,000 ML IV PRN (18:59)
[2019-04-25] MEDS: 1/2 NORMAL SALINE 1,000 ML IV PRN (19:03)
[2019-04-25] MEDS: METOPROLOL TARTRATE 100 MG TABLET PO SCH (22:15)
[2019-04-25] MEDS: FAMOTIDINE 20 MG TABLET PO SCH (22:16)
[2019-04-25] MEDS: ATORVASTATIN CALCIUM 10 MG TABLET PO SCH (22:16)
--- NOTE | 2019-04-25 22:18 | PDOC PROGRESS REPORT ---
Subjective Progress Note for:: 04/25/19 Subjective:: Patient seen by the bedside she has increased diarrhea today, she was taken off IV fluid the last 3 days because of hypertension, start back IV fluid Reason For Visit: RENAL FAILURE Physical Exam Vital Signs: Temp Pulse Resp BP Pulse Ox 98.3 F 75 16 125/67 98 04/25/19 20:00 04/25/19 20:00 04/25/19 20:00 04/25/19 20:00 04/25/19 20:00 Intake & Output 04/24/19 04/25/19 04/26/19 06:59 06:59 06:59 Intake Total 1610 900 740 Output Total 2350 0191 6472 Balance -567 -6946 -2176 Weight 124.6 kg 119.2 kg General appearance: PRESENT: no acute distress Eye exam: PRESENT: PERRLA Respiratory exam: PRESENT: clear to auscultation stephen Cardiovascular exam: PRESENT: +S1, +S2 Neurological exam: PRESENT: alert Results Laboratory Results: 04/23/19 06:35 04/23/19 06:35 04/16/19 12:45 Creatine Kinase 210 H Impressions: Hip/Pelvis X-Ray 04/16/19 11:52 IMPRESSION: NEGATIVE STUDY OF THE RIGHT HIP. NO RADIOGRAPHIC EVIDENCE OF ACUTE INJURY. Gallstones. Abdomen/Pelvis CT 04/16/19 14:48 IMPRESSION: 1. Status post colectomy with a right hemiabdomen ileostomy. 2. Mildly distended urinary bladder. 3. Cholelithiasis. Hip X-Ray 04/18/19 00:00 IMPRESSION: NEGATIVE STUDY OF THE RIGHT AND LEFT HIPS AND PELVIS. NO RADIOGRAPHIC EVIDENCE OF ACUTE INJURY. Upper GI and Small Bowel X-Ray 04/20/19 00:00 IMPRESSION: NORMAL LIMITED SINGLE CONTRAST SWALLOW / UPPER GI SERIES / SMALL BOWEL SERIES. Assessment & Plan - Diagnosis (1) Acute kidney injury Is this a current diagnosis for this admission?: Yes (2) Urinary tract infection Qualifiers: Urinary tract infection type: acute cystitis Hematuria presence: without hematuria Qualified Code(s): N30.00 - Acute cystitis without hematuria Is this a current diagnosis for this admission?: Yes (3) High output ileostomy Is this a current diagnosis for this admission?: Yes (4) UTI due to Klebsiella species Is this a current diagnosis for this admission?: Yes (5) Epigastric pain Is this a current diagnosis for this admission?: Yes (6) Essential (primary) hypertension Is this a current diagnosis for this admission?: Yes
[2019-04-26] MEDS: HYDROMORPHONE HCL INJ/PF 2 MG/ML AMPULE IV PRN ×5 (03:35→21:43)
[2019-04-26] MEDS: HEPARIN SOD (PORCINE) 5,000 UNIT/ML 1 ML VIAL SUBCUT SCH ×3 (06:02→21:43)
[2019-04-26] MEDS: HYDRALAZINE HCL 50 MG TABLET PO SCH ×3 (06:02→21:42)
[2019-04-26] MEDS: PANTOPRAZOLE SODIUM 40 MG TABLET.DR PO SCH (06:21)
[2019-04-26] MEDS: SODIUM BICARBONATE 650 MG TABLET PO SCH ×3 (06:21→21:41)
[2019-04-26] MEDS: INSULIN LISPRO 100 UNIT/ML 3 ML VIAL SUBCUT SCH ×4 (07:45→21:43)
[2019-04-26] MEDS: ONDANSETRON HCL INJ/PF 4 MG/2 ML SDV IV PRN (08:10)
[2019-04-26] MEDS: ALLOPURINOL 100 MG TABLET PO SCH (09:52)
[2019-04-26] MEDS: AMLODIPINE BESYLATE 10 MG TABLET PO SCH (09:52)
[2019-04-26] MEDS: MAGNESIUM OXIDE 400 MG TABLET PO SCH (09:52)
[2019-04-26] MEDS: COLCHICINE 0.6 MG TABLET PO SCH (09:52)
[2019-04-26] MEDS: GABAPENTIN 300 MG CAPSULE PO SCH ×2 (09:52→21:41)
[2019-04-26] MEDS: SITAGLIPTIN PHOSPHATE 50 MG TABLET PO SCH (09:53)
[2019-04-26] MEDS: CALCITRIOL 0.25 MCG CAPSULE PO SCH (09:55)
[2019-04-26] MEDS: 1/2 NORMAL SALINE 1,000 ML IV PRN (16:16)
--- NOTE | 2019-04-26 18:33 | PDOC PROGRESS REPORT ---
Subjective Progress Note for:: 04/26/19 Subjective:: Patient was seen today by the bedside I advised that she needed to go for rehabilitation but she is opposed to the idea she would be rather be discharged home with PT. She has high output ileostomy bag with increased tendency to develop prerenal azotemia she was supposed to be discharged home this week but she started dumping a lot of fluid in the ileostomy bag delaying discharge. She has had multiple hospital admission for this problem but we have tried different strategy like administration of IV fluid outpatient on a weekly basis to remedy this frequent hospital admission. Reason For Visit: RENAL FAILURE Physical Exam Vital Signs: Temp Pulse Resp BP Pulse Ox 98.6 F 93 18 100/57 L 93 04/26/19 15:52 04/26/19 15:52 04/26/19 15:52 04/26/19 15:52 04/26/19 15:52 Intake & Output 04/25/19 04/26/19 04/27/19 06:59 06:59 06:59 Intake Total 900 1290 1520 Output Total 4075 2060 Balance -3175 -770 1520 Weight 119.2 kg 119.5 kg General appearance: PRESENT: no acute distress Eye exam: PRESENT: PERRLA Respiratory exam: PRESENT: clear to auscultation stephen Cardiovascular exam: PRESENT: +S1, +S2 GI/Abdominal exam: PRESENT: soft Neurological exam: PRESENT: alert Results Laboratory Results: 04/23/19 06:35 04/23/19 06:35 04/16/19 12:45 Creatine Kinase 210 H Impressions: Hip/Pelvis X-Ray 04/16/19 11:52 IMPRESSION: NEGATIVE STUDY OF THE RIGHT HIP. NO RADIOGRAPHIC EVIDENCE OF ACUTE INJURY. Gallstones. Abdomen/Pelvis CT 04/16/19 14:48 IMPRESSION: 1. Status post colectomy with a right hemiabdomen ileostomy. 2. Mildly distended urinary bladder. 3. Cholelithiasis. Hip X-Ray 04/18/19 00:00 IMPRESSION: NEGATIVE STUDY OF THE RIGHT AND LEFT HIPS AND PELVIS. NO RADIOGRAPHIC EVIDENCE OF ACUTE INJURY. Upper GI and Small Bowel X-Ray 04/20/19 00:00 IMPRESSION: NORMAL LIMITED SINGLE CONTRAST SWALLOW / UPPER GI SERIES / SMALL BOWEL SERIES. Assessment & Plan - Diagnosis (1) Acute kidney injury Is this a current diagnosis for this admission?: Yes Plan: Continue treatment (2) Urinary tract infection Qualifiers: Urinary tract infection type: acute cystitis Hematuria presence: without hematuria Qualified Code(s): N30.00 - Acute cystitis without hematuria Is this a current diagnosis for this admission?: Yes (3) High output ileostomy Is this a current diagnosis for this admission?: Yes (4) UTI due to Klebsiella species Is this a current diagnosis for this admission?: Yes (5) Epigastric pain Is this a current diagnosis for this admission?: Yes (6) Essential (primary) hypertension Is this a current diagnosis for this admission?: Yes
[2019-04-26] MEDS: ATORVASTATIN CALCIUM 10 MG TABLET PO SCH (21:41)
[2019-04-26] MEDS: FAMOTIDINE 20 MG TABLET PO SCH (21:41)
[2019-04-26] MEDS: METOPROLOL TARTRATE 100 MG TABLET PO SCH (21:43)
[2019-04-27] MEDS: HYDROMORPHONE HCL INJ/PF 2 MG/ML AMPULE IV PRN ×4 (03:57→19:39)
[2019-04-27 04:27] LABS: ABSOLUTE EOSINOPHILS # (AUTO) 0.3 10^3/uL (0.0-0.6); ABSOLUTE LYMPHOCYTES (AUTO) 1.2 10^3/uL (0.5-4.7); ABSOLUTE MONOCYTES (AUTO) 0.6 10^3/uL (0.1-1.4); ABSOLUTE NEUT (AUTO) 5.3 10^3/uL (1.7-8.2); BASOPHILS % (AUTO) 0.6 % (0-2); EOSINOPHILS % (AUTO) 4.4 % (0-6); HEMATOCRIT 38.3 % (36.0-47.0); HEMOGLOBIN 12.1 g/dL (12.0-15.5); MEAN CORPUSCULAR HEMOGLOBIN 29.5 pg (27.0-33.4); MEAN CORPUSCULAR HGB CONC 31.6 g/dL (32.0-36.0); MEAN CORPUSCULAR VOLUME 93 fl (80-97); MONOCYTES % (AUTO) 8.5 % (3-13); PLATELET COUNT 169 10^3/uL (150-450); RED CELL DISTRIBUTION WIDTH 17.3 % (11.5-14.0); SEGMENTED NEUTROPHILS % (AUTO) 70.5 % (42-78); TOTAL CELLS COUNTED % (AUTO) 100 %; WHITE BLOOD COUNT 7.6 10^3/uL (4.0-10.5)
[2019-04-27 04:41] LABS: ALBUMIN 3.5 g/dL (3.5-5.0); ALKALINE PHOSPHATASE 82 U/L (38-126); ANION GAP 12 (5-19); ASPARTATE AMINO TRANSFERASE 79 U/L (14-36); BILIRUBIN,DIRECT 0.4 mg/dL (0.0-0.4); BILIRUBIN,TOTAL 0.5 mg/dL (0.2-1.3); BLOOD UREA NITROGEN 25 mg/dL (7-20); CALCIUM 8.5 mg/dL (8.4-10.2); CARBON DIOXIDE 27 mmol/L (22-30); CHLORIDE 98 mmol/L (98-107); GLUCOSE 136 mg/dL (75-110); POTASSIUM 3.6 mmol/L (3.6-5.0)
[2019-04-27] MEDS: HEPARIN SOD (PORCINE) 5,000 UNIT/ML 1 ML VIAL SUBCUT SCH ×3 (06:39→21:46)
[2019-04-27] MEDS: SODIUM BICARBONATE 650 MG TABLET PO SCH ×3 (06:39→21:46)
[2019-04-27] MEDS: PANTOPRAZOLE SODIUM 40 MG TABLET.DR PO SCH (06:39)
[2019-04-27] MEDS: HYDRALAZINE HCL 50 MG TABLET PO SCH ×3 (06:39→21:46)
[2019-04-27] MEDS: INSULIN LISPRO 100 UNIT/ML 3 ML VIAL SUBCUT SCH ×4 (09:09→21:40)
[2019-04-27] MEDS: CALCITRIOL 0.25 MCG CAPSULE PO SCH (09:17)
[2019-04-27] MEDS: MAGNESIUM OXIDE 400 MG TABLET PO SCH (09:17)
[2019-04-27] MEDS: GABAPENTIN 300 MG CAPSULE PO SCH ×2 (09:17→21:46)
[2019-04-27] MEDS: COLCHICINE 0.6 MG TABLET PO SCH (09:17)
[2019-04-27] MEDS: SITAGLIPTIN PHOSPHATE 50 MG TABLET PO SCH (09:17)
[2019-04-27] MEDS: ALLOPURINOL 100 MG TABLET PO SCH (09:17)
[2019-04-27] MEDS: AMLODIPINE BESYLATE 10 MG TABLET PO SCH (09:19)
[2019-04-27] MEDS: LOPERAMIDE HCL 2 MG CAPSULE PO PRN (09:22)
--- NOTE | 2019-04-27 21:14 | PDOC PROGRESS REPORT ---
Subjective Progress Note for:: 04/27/19 Subjective:: Patient was seen today by the bedside I advised that she needed to go for rehabilitation but she is opposed to the idea she would be rather be discharged home with PT. She has high output ileostomy bag with increased tendency to develop prerenal azotemia she was supposed to be discharged home this week but she started dumping a lot of fluid in the ileostomy bag delaying discharge. She has had multiple hospital admission for this problem but we have tried different strategy like administration of IV fluid outpatient on a weekly basis to remedy this frequent hospital admission.The serum creatinine is 5 today, She complain of vaginal discharge Reason For Visit: RENAL FAILURE Physical Exam Vital Signs: Temp Pulse Resp BP Pulse Ox 99.0 F 109 H 17 110/60 95 04/27/19 19:32 04/27/19 19:32 04/27/19 19:32 04/27/19 19:32 04/27/19 19:32 Intake & Output 04/26/19 04/27/19 04/28/19 06:59 06:59 06:59 Intake Total 1290 2118 1080 Output Total 2060 2900 Balance -770 2118 -1820 Weight 119.5 kg 122.2 kg General appearance: PRESENT: no acute distress Eye exam: PRESENT: PERRLA Respiratory exam: PRESENT: clear to auscultation stephen Cardiovascular exam: PRESENT: +S1, +S2 GI/Abdominal exam: PRESENT: soft Results Laboratory Results: 04/27/19 03:55 04/27/19 03:55 04/27/19 04/27/19 03:55 03:55 WBC 7.6 RBC 4.10 Hgb 12.1 Hct 38.3 MCV 93 MCH 29.5 MCHC 31.6 L RDW 17.3 H Plt Count 169 Seg Neutrophils % 70.5 Sodium 136.6 L Potassium 3.6 Chloride 98 Carbon Dioxide 27 Anion Gap 12 BUN 25 H Creatinine 5.19 H Est GFR ( Amer) 10 L Glucose 136 H Calcium 8.5 Total Bilirubin 0.5 AST 79 H Alkaline Phosphatase 82 Total Protein 7.0 Albumin 3.5 04/16/19 12:45 Creatine Kinase 210 H Impressions: Hip/Pelvis X-Ray 04/16/19 11:52 IMPRESSION: NEGATIVE STUDY OF THE RIGHT HIP. NO RADIOGRAPHIC EVIDENCE OF ACUTE INJURY. Gallstones. Abdomen/Pelvis CT 04/16/19 14:48 IMPRESSION: 1. Status post colectomy with a right hemiabdomen ileostomy. 2. Mildly distended urinary bladder. 3. Cholelithiasis. Hip X-Ray 04/18/19 00:00 IMPRESSION: NEGATIVE STUDY OF THE RIGHT AND LEFT HIPS AND PELVIS. NO RADIOGRAPHIC EVIDENCE OF ACUTE INJURY. Upper GI and Small Bowel X-Ray 04/20/19 00:00 IMPRESSION: NORMAL LIMITED SINGLE CONTRAST SWALLOW / UPPER GI SERIES / SMALL BOWEL SERIES. Assessment & Plan - Diagnosis (1) Acute kidney injury Is this a current diagnosis for this admission?: Yes Plan: Worsening serum creatinine, it was 5 today (2) Urinary tract infection Qualifiers: Urinary tract infection type: acute cystitis Hematuria presence: without hematuria Qualified Code(s): N30.00 - Acute cystitis without hematuria Is this a current diagnosis for this admission?: Yes (3) High output ileostomy Is this a current diagnosis for this admission?: Yes (4) UTI due to Klebsiella species Is this a current diagnosis for this admission?: Yes (5) Epigastric pain Is this a current diagnosis for this admission?: Yes (6) Essential (primary) hypertension Is this a current diagnosis for this admission?: Yes
[2019-04-27] MEDS: METOPROLOL TARTRATE 100 MG TABLET PO SCH (21:46)
[2019-04-27] MEDS: ATORVASTATIN CALCIUM 10 MG TABLET PO SCH (21:46)
[2019-04-27] MEDS: FAMOTIDINE 20 MG TABLET PO SCH (21:47)
[2019-04-28] MEDS: HYDROMORPHONE HCL INJ/PF 2 MG/ML AMPULE IV PRN ×5 (00:31→20:40)
[2019-04-28] MEDS: SODIUM BICARBONATE 650 MG TABLET PO SCH ×3 (05:39→22:59)
[2019-04-28] MEDS: HYDRALAZINE HCL 50 MG TABLET PO SCH ×3 (05:40→22:59)
[2019-04-28] MEDS: PANTOPRAZOLE SODIUM 40 MG TABLET.DR PO SCH (05:40)
[2019-04-28] MEDS: HEPARIN SOD (PORCINE) 5,000 UNIT/ML 1 ML VIAL SUBCUT SCH ×3 (05:40→22:53)
[2019-04-28] MEDS: INSULIN LISPRO 100 UNIT/ML 3 ML VIAL SUBCUT SCH ×4 (09:12→22:54)
[2019-04-28] MEDS: SITAGLIPTIN PHOSPHATE 50 MG TABLET PO SCH (09:31)
[2019-04-28] MEDS: CALCITRIOL 0.25 MCG CAPSULE PO SCH (09:31)
[2019-04-28] MEDS: ALLOPURINOL 100 MG TABLET PO SCH (09:31)
[2019-04-28] MEDS: GABAPENTIN 300 MG CAPSULE PO SCH ×2 (09:31→22:59)
[2019-04-28] MEDS: MAGNESIUM OXIDE 400 MG TABLET PO SCH (09:31)
[2019-04-28] MEDS: AMLODIPINE BESYLATE 10 MG TABLET PO SCH (09:31)
[2019-04-28] MEDS: COLCHICINE 0.6 MG TABLET PO SCH (09:40)
--- NOTE | 2019-04-28 18:45 | PDOC PROGRESS REPORT ---
Subjective Progress Note for:: 04/28/19 Subjective:: she was seen by the bedside Reason For Visit: RENAL FAILURE Physical Exam Vital Signs: Temp Pulse Resp BP Pulse Ox 99.2 F 100 17 121/69 98 04/28/19 14:54 04/28/19 14:54 04/28/19 14:54 04/28/19 14:54 04/28/19 14:54 Intake & Output 04/27/19 04/28/19 04/29/19 06:59 06:59 06:59 Intake Total 2118 1602 866 Output Total 4050 1000 Balance 3380 -6397 -649 Weight 122.2 kg 121.8 kg General appearance: PRESENT: no acute distress Eye exam: PRESENT: PERRLA Respiratory exam: PRESENT: clear to auscultation stephen Cardiovascular exam: PRESENT: +S1, +S2 Results Laboratory Results: 04/27/19 03:55 04/27/19 03:55 04/16/19 12:45 Creatine Kinase 210 H Impressions: Hip/Pelvis X-Ray 04/16/19 11:52 IMPRESSION: NEGATIVE STUDY OF THE RIGHT HIP. NO RADIOGRAPHIC EVIDENCE OF ACUTE INJURY. Gallstones. Abdomen/Pelvis CT 04/16/19 14:48 IMPRESSION: 1. Status post colectomy with a right hemiabdomen ileostomy. 2. Mildly distended urinary bladder. 3. Cholelithiasis. Hip X-Ray 04/18/19 00:00 IMPRESSION: NEGATIVE STUDY OF THE RIGHT AND LEFT HIPS AND PELVIS. NO RADIOGRAPHIC EVIDENCE OF ACUTE INJURY. Upper GI and Small Bowel X-Ray 04/20/19 00:00 IMPRESSION: NORMAL LIMITED SINGLE CONTRAST SWALLOW / UPPER GI SERIES / SMALL BOWEL SERIES. Assessment & Plan - Diagnosis (1) Acute kidney injury Is this a current diagnosis for this admission?: Yes (2) Urinary tract infection Qualifiers: Urinary tract infection type: acute cystitis Hematuria presence: without hematuria Qualified Code(s): N30.00 - Acute cystitis without hematuria Is this a current diagnosis for this admission?: Yes (3) High output ileostomy Is this a current diagnosis for this admission?: Yes (4) UTI due to Klebsiella species Is this a current diagnosis for this admission?: Yes (5) Epigastric pain Is this a current diagnosis for this admission?: Yes (6) Essential (primary) hypertension Is this a current diagnosis for this admission?: Yes
[2019-04-28] MEDS: ATORVASTATIN CALCIUM 10 MG TABLET PO SCH (23:00)
[2019-04-28] MEDS: METOPROLOL TARTRATE 100 MG TABLET PO SCH (23:00)
[2019-04-28] MEDS: FAMOTIDINE 20 MG TABLET PO SCH (23:00)
[2019-04-29] MEDS: HYDROMORPHONE HCL INJ/PF 2 MG/ML AMPULE IV PRN ×5 (03:18→20:16)
[2019-04-29] MEDS: 1/2 NORMAL SALINE 1,000 ML IV PRN ×2 (03:21→16:09)
[2019-04-29] MEDS: HEPARIN SOD (PORCINE) 5,000 UNIT/ML 1 ML VIAL SUBCUT SCH ×3 (06:59→21:37)
[2019-04-29] MEDS: SODIUM BICARBONATE 650 MG TABLET PO SCH ×3 (07:03→21:43)
[2019-04-29] MEDS: HYDRALAZINE HCL 50 MG TABLET PO SCH ×3 (07:03→21:42)
[2019-04-29] MEDS: PANTOPRAZOLE SODIUM 40 MG TABLET.DR PO SCH (07:04)
[2019-04-29] MEDS: INSULIN LISPRO 100 UNIT/ML 3 ML VIAL SUBCUT SCH ×4 (08:52→21:38)
[2019-04-29] MEDS: SITAGLIPTIN PHOSPHATE 50 MG TABLET PO SCH (10:20)
[2019-04-29] MEDS: COLCHICINE 0.6 MG TABLET PO SCH (10:20)
[2019-04-29] MEDS: MAGNESIUM OXIDE 400 MG TABLET PO SCH (10:20)
[2019-04-29] MEDS: ALLOPURINOL 100 MG TABLET PO SCH (10:20)
[2019-04-29] MEDS: AMLODIPINE BESYLATE 10 MG TABLET PO SCH (10:20)
[2019-04-29] MEDS: CALCITRIOL 0.25 MCG CAPSULE PO SCH (10:20)
[2019-04-29] MEDS: GABAPENTIN 300 MG CAPSULE PO SCH ×2 (10:21→21:42)
[2019-04-29] MEDS: ERGOCALCIFEROL (VITAMIN D2) 50000 UNIT (1.25 MG) CAPSULE PO SCH (10:21)
--- NOTE | 2019-04-29 16:56 | PDOC PROGRESS REPORT ---
Subjective Progress Note for:: 04/29/19 Subjective:: The serum creatinine was 5, 2 days ago, she had increased ileostomy output precipitating acute kidney injury, that has been the pattern for this patient in the last more than 5 years, she has total colectomy with high output ileostomy bag, she has increased risk of acute kidney injury usually secondary to her loss of fluid in the bag, in the last 2 days before now she had a normal serum creatinine, the plan was to discharge her home but she says she was not feeling well interestingly we will check the lab work and there is a bump in the serum creatinine from normal serum creatinine to 5 suggesting acute kidney injury due to prerenal azotemia rather than intrinsic kidney disease Reason For Visit: RENAL FAILURE Physical Exam Vital Signs: Temp Pulse Resp BP Pulse Ox 98.7 F 75 16 105/66 94 04/29/19 16:00 04/29/19 16:00 04/29/19 16:00 04/29/19 16:00 04/29/19 16:00 Intake & Output 04/28/19 04/29/19 04/30/19 06:59 06:59 06:59 Intake Total 1602 1416 1000 Output Total 4050 2475 Balance -4468 -1059 1000 Weight 121.8 kg 121.7 kg General appearance: PRESENT: no acute distress Eye exam: PRESENT: PERRLA Respiratory exam: PRESENT: clear to auscultation stephen Cardiovascular exam: PRESENT: +S1, +S2 GI/Abdominal exam: PRESENT: soft Results Laboratory Results: 04/27/19 03:55 04/27/19 03:55 04/16/19 12:45 Creatine Kinase 210 H Impressions: Hip/Pelvis X-Ray 04/16/19 11:52 IMPRESSION: NEGATIVE STUDY OF THE RIGHT HIP. NO RADIOGRAPHIC EVIDENCE OF ACUTE INJURY. Gallstones. Abdomen/Pelvis CT 04/16/19 14:48 IMPRESSION: 1. Status post colectomy with a right hemiabdomen ileostomy. 2. Mildly distended urinary bladder. 3. Cholelithiasis. Hip X-Ray 04/18/19 00:00 IMPRESSION: NEGATIVE STUDY OF THE RIGHT AND LEFT HIPS AND PELVIS. NO RADIOGRAPHIC EVIDENCE OF ACUTE INJURY. Upper GI and Small Bowel X-Ray 04/20/19 00:00 IMPRESSION: NORMAL LIMITED SINGLE CONTRAST SWALLOW / UPPER GI SERIES / SMALL BOWEL SERIES. Assessment & Plan - Diagnosis (1) Acute kidney injury Is this a current diagnosis for this admission?: Yes Plan: Continue fluid therapy monitor chemistry (2) Urinary tract infection Qualifiers: Urinary tract infection type: acute cystitis Hematuria presence: without hematuria Qualified Code(s): N30.00 - Acute cystitis without hematuria Is this a current diagnosis for this admission?: Yes (3) High output ileostomy Is this a current diagnosis for this admission?: Yes (4) UTI due to Klebsiella species Is this a current diagnosis for this admission?: Yes (5) Epigastric pain Is this a current diagnosis for this admission?: Yes (6) Essential (primary) hypertension Is this a current diagnosis for this admission?: Yes
[2019-04-29 17:16] LABS: ABSOLUTE BASOPHILS # (AUTO) 0.1 10^3/uL (0.0-0.2); ABSOLUTE EOSINOPHILS # (AUTO) 0.3 10^3/uL (0.0-0.6); ABSOLUTE LYMPHOCYTES (AUTO) 1.2 10^3/uL (0.5-4.7); ABSOLUTE MONOCYTES (AUTO) 0.7 10^3/uL (0.1-1.4); ABSOLUTE NEUT (AUTO) 3.2 10^3/uL (1.7-8.2); BASOPHILS % (AUTO) 1.1 % (0-2); EOSINOPHILS % (AUTO) 5.9 % (0-6); HEMATOCRIT 36.9 % (36.0-47.0); LYMPHOCYTES % (AUTO) 21.3 % (13-45); MEAN CORPUSCULAR HEMOGLOBIN 30.4 pg (27.0-33.4); MEAN CORPUSCULAR HGB CONC 32.6 g/dL (32.0-36.0); MEAN CORPUSCULAR VOLUME 93 fl (80-97); MONOCYTES % (AUTO) 13.2 % (3-13); PLATELET COUNT 189 10^3/uL (150-450); RED BLOOD COUNT 3.96 10^6/uL (3.72-5.28); SEGMENTED NEUTROPHILS % (AUTO) 58.5 % (42-78); TOTAL CELLS COUNTED % (AUTO) 100 %; WHITE BLOOD COUNT 5.6 10^3/uL (4.0-10.5)
[2019-04-29 17:32] LABS: ALBUMIN 3.6 g/dL (3.5-5.0); ALKALINE PHOSPHATASE 71 U/L (38-126); ANION GAP 10 (5-19); ASPARTATE AMINO TRANSFERASE 72 U/L (14-36); BILIRUBIN,DIRECT 0.2 mg/dL (0.0-0.4); BILIRUBIN,TOTAL 0.4 mg/dL (0.2-1.3); BLOOD UREA NITROGEN 26 mg/dL (7-20); CALCIUM 8.6 mg/dL (8.4-10.2); CARBON DIOXIDE 27 mmol/L (22-30); CHLORIDE 99 mmol/L (98-107); GLUCOSE 132 mg/dL (75-110); POTASSIUM 3.7 mmol/L (3.6-5.0); TOTAL PROTEIN 6.8 g/dL (6.3-8.2)
[2019-04-29] MEDS: METOPROLOL TARTRATE 100 MG TABLET PO SCH (21:42)
[2019-04-29] MEDS: FAMOTIDINE 20 MG TABLET PO SCH (21:43)
[2019-04-29] MEDS: ATORVASTATIN CALCIUM 10 MG TABLET PO SCH (21:43)
[2019-04-30] MEDS: HYDROMORPHONE HCL INJ/PF 2 MG/ML AMPULE IV PRN ×5 (02:39→19:39)
[2019-04-30] MEDS: HEPARIN SOD (PORCINE) 5,000 UNIT/ML 1 ML VIAL SUBCUT SCH ×3 (05:24→22:23)
[2019-04-30] MEDS: HYDRALAZINE HCL 50 MG TABLET PO SCH ×2 (05:24→14:58)
[2019-04-30] MEDS: PANTOPRAZOLE SODIUM 40 MG TABLET.DR PO SCH (05:24)
[2019-04-30] MEDS: SODIUM BICARBONATE 650 MG TABLET PO SCH ×3 (05:24→22:21)
[2019-04-30] MEDS: INSULIN LISPRO 100 UNIT/ML 3 ML VIAL SUBCUT SCH ×4 (09:50→22:22)
[2019-04-30] MEDS: MAGNESIUM OXIDE 400 MG TABLET PO SCH (09:51)
[2019-04-30] MEDS: ALLOPURINOL 100 MG TABLET PO SCH (09:51)
[2019-04-30] MEDS: COLCHICINE 0.6 MG TABLET PO SCH (09:51)
[2019-04-30] MEDS: SITAGLIPTIN PHOSPHATE 50 MG TABLET PO SCH (09:51)
[2019-04-30] MEDS: AMLODIPINE BESYLATE 10 MG TABLET PO SCH (09:51)
[2019-04-30] MEDS: GABAPENTIN 300 MG CAPSULE PO SCH ×2 (09:52→22:22)
[2019-04-30] MEDS: CALCITRIOL 0.25 MCG CAPSULE PO SCH (09:52)
--- NOTE | 2019-04-30 14:46 | PDOC PROGRESS REPORT ---
Subjective Progress Note for:: 04/30/19 Subjective:: The serum creatinine was 5, 2 days ago, she had increased ileostomy output precipitating acute kidney injury, that has been the pattern for this patient in the last many years, she has total colectomy with high output ileostomy bag, she has increased risk of acute kidney injury usually secondary to her loss of fluid in the bag, in the last 2 days before now she had a normal serum creatinine, the plan was to discharge her home but she says she was not feeling well interestingly we will check the lab work and there is a bump in the serum creatinine from normal serum creatinine to 5 suggesting acute kidney injury due to prerenal azotemia rather than intrinsic kidney disease Reason For Visit: RENAL FAILURE Physical Exam Vital Signs: Temp Pulse Resp BP Pulse Ox 98.4 F 71 18 106/63 94 04/30/19 12:09 04/30/19 12:09 04/30/19 12:09 04/30/19 12:09 04/30/19 12:09 Intake & Output 04/29/19 04/30/19 05/01/19 06:59 06:59 06:59 Intake Total 1416 1940 458 Output Total 2475 2100 Balance -1059 -160 458 Weight 121.7 kg 121.8 kg General appearance: PRESENT: no acute distress Eye exam: PRESENT: PERRLA Respiratory exam: PRESENT: clear to auscultation stephen Cardiovascular exam: PRESENT: +S1, +S2 GI/Abdominal exam: PRESENT: soft Results Laboratory Results: 04/29/19 17:02 04/29/19 17:02 04/29/19 04/29/19 17:02 17:02 WBC 5.6 RBC 3.96 Hgb 12.0 Hct 36.9 MCV 93 MCH 30.4 MCHC 32.6 RDW 17.0 H Plt Count 189 Seg Neutrophils % 58.5 Sodium 136.2 L Potassium 3.7 Chloride 99 Carbon Dioxide 27 Anion Gap 10 BUN 26 H Creatinine 2.39 H Est GFR ( Amer) 25 L Glucose 132 H Calcium 8.6 Total Bilirubin 0.4 AST 72 H Alkaline Phosphatase 71 Total Protein 6.8 Albumin 3.6 04/16/19 12:45 Creatine Kinase 210 H Impressions: Hip/Pelvis X-Ray 04/16/19 11:52 IMPRESSION: NEGATIVE STUDY OF THE RIGHT HIP. NO RADIOGRAPHIC EVIDENCE OF ACUTE INJURY. Gallstones. Abdomen/Pelvis CT 04/16/19 14:48 IMPRESSION: 1. Status post colectomy with a right hemiabdomen ileostomy. 2. Mildly distended urinary bladder. 3. Cholelithiasis. Hip X-Ray 04/18/19 00:00 IMPRESSION: NEGATIVE STUDY OF THE RIGHT AND LEFT HIPS AND PELVIS. NO RADIOGRAPHIC EVIDENCE OF ACUTE INJURY. Upper GI and Small Bowel X-Ray 04/20/19 00:00 IMPRESSION: NORMAL LIMITED SINGLE CONTRAST SWALLOW / UPPER GI SERIES / SMALL BOWEL SERIES. Assessment & Plan - Diagnosis (1) Acute kidney injury Is this a current diagnosis for this admission?: Yes (2) Urinary tract infection Qualifiers: Urinary tract infection type: acute cystitis Hematuria presence: without hematuria Qualified Code(s): N30.00 - Acute cystitis without hematuria Is this a current diagnosis for this admission?: Yes (3) High output ileostomy Is this a current diagnosis for this admission?: Yes (4) UTI due to Klebsiella species Is this a current diagnosis for this admission?: Yes (5) Epigastric pain Is this a current diagnosis for this admission?: Yes (6) Essential (primary) hypertension Is this a current diagnosis for this admission?: Yes
[2019-04-30 15:50] LABS: ALBUMIN 3.5 g/dL (3.5-5.0); ALKALINE PHOSPHATASE 69 U/L (38-126); ANION GAP 9 (5-19); ASPARTATE AMINO TRANSFERASE 62 U/L (14-36); BILIRUBIN,DIRECT 0.2 mg/dL (0.0-0.4); BILIRUBIN,TOTAL 0.3 mg/dL (0.2-1.3); BLOOD UREA NITROGEN 21 mg/dL (7-20); CALCIUM 8.7 mg/dL (8.4-10.2); CARBON DIOXIDE 28 mmol/L (22-30); CHLORIDE 99 mmol/L (98-107); GLUCOSE 124 mg/dL (75-110); TOTAL PROTEIN 6.7 g/dL (6.3-8.2)
[2019-04-30] MEDS: 1/2 NORMAL SALINE 1,000 ML IV PRN (19:43)
[2019-04-30] MEDS: METOPROLOL TARTRATE 100 MG TABLET PO SCH (22:21)
[2019-04-30] MEDS: FAMOTIDINE 20 MG TABLET PO SCH (22:22)
[2019-04-30] MEDS: ATORVASTATIN CALCIUM 10 MG TABLET PO SCH (22:22)
[2019-05-01] MEDS: HYDROMORPHONE HCL INJ/PF 2 MG/ML AMPULE IV PRN ×5 (00:24→19:57)
[2019-05-01] MEDS: HYDRALAZINE HCL 50 MG TABLET PO SCH ×4 (01:05→21:40)
[2019-05-01] MEDS: HEPARIN SOD (PORCINE) 5,000 UNIT/ML 1 ML VIAL SUBCUT SCH ×3 (05:08→21:41)
[2019-05-01] MEDS: SODIUM BICARBONATE 650 MG TABLET PO SCH ×3 (06:38→21:40)
[2019-05-01] MEDS: PANTOPRAZOLE SODIUM 40 MG TABLET.DR PO SCH (06:38)
[2019-05-01 08:20] LABS: ALBUMIN 3.2 g/dL (3.5-5.0); ALKALINE PHOSPHATASE 63 U/L (38-126); ANION GAP 6 (5-19); ASPARTATE AMINO TRANSFERASE 51 U/L (14-36); BILIRUBIN,DIRECT 0.3 mg/dL (0.0-0.4); BILIRUBIN,TOTAL 0.4 mg/dL (0.2-1.3); BLOOD UREA NITROGEN 18 mg/dL (7-20); CALCIUM 8.6 mg/dL (8.4-10.2); CARBON DIOXIDE 30 mmol/L (22-30); CHLORIDE 101 mmol/L (98-107); GLUCOSE 81 mg/dL (75-110); POTASSIUM 3.8 mmol/L (3.6-5.0); TOTAL PROTEIN 6.5 g/dL (6.3-8.2)
[2019-05-01] MEDS: INSULIN LISPRO 100 UNIT/ML 3 ML VIAL SUBCUT SCH ×4 (08:55→21:49)
[2019-05-01] MEDS: CALCITRIOL 0.25 MCG CAPSULE PO SCH (09:40)
[2019-05-01] MEDS: GABAPENTIN 300 MG CAPSULE PO SCH ×2 (09:40→21:41)
[2019-05-01] MEDS: COLCHICINE 0.6 MG TABLET PO SCH (09:40)
[2019-05-01] MEDS: AMLODIPINE BESYLATE 10 MG TABLET PO SCH (09:40)
[2019-05-01] MEDS: MAGNESIUM OXIDE 400 MG TABLET PO SCH (09:40)
[2019-05-01] MEDS: ALLOPURINOL 100 MG TABLET PO SCH (09:40)
[2019-05-01] MEDS: SITAGLIPTIN PHOSPHATE 50 MG TABLET PO SCH (09:40)
[2019-05-01] MEDS: 1/2 NORMAL SALINE 1,000 ML IV PRN (15:16)
--- NOTE | 2019-05-01 19:53 | PDOC PROGRESS REPORT ---
Subjective Progress Note for:: 05/01/19 Subjective:: The serum creatinine was 5, 2 days ago, she had increased ileostomy output precipitating acute kidney injury, that has been the pattern for this patient in the last many years, she has total colectomy with high output ileostomy bag, she has increased risk of acute kidney injury usually secondary to her loss of fluid in the bag, in the last 2 days before now she had a normal serum creatinine, the plan was to discharge her home but she says she was not feeling well interestingly we will check the lab work and there is a bump in the serum creatinine from normal serum creatinine to 5 suggesting acute kidney injury due to prerenal azotemia rather than intrinsic kidney disease.Patient's management continues to be challenging Reason For Visit: RENAL FAILURE Physical Exam Vital Signs: Temp Pulse Resp BP Pulse Ox 98.8 F 77 20 121/78 95 05/01/19 15:07 05/01/19 15:07 05/01/19 15:07 05/01/19 15:07 05/01/19 15:07 Intake & Output 04/30/19 05/01/19 05/02/19 06:59 06:59 06:59 Intake Total 2940 1248 2220 Output Total 2100 475 2000 Balance 840 773 220 Weight 121.8 kg 121.8 kg General appearance: PRESENT: no acute distress Eye exam: PRESENT: PERRLA Respiratory exam: PRESENT: clear to auscultation stephen Cardiovascular exam: PRESENT: +S1, +S2 GI/Abdominal exam: PRESENT: soft Neurological exam: PRESENT: alert Results Laboratory Results: 04/29/19 17:02 05/01/19 07:53 05/01/19 07:53 Sodium 137.0 Potassium 3.8 Chloride 101 Carbon Dioxide 30 Anion Gap 6 BUN 18 Creatinine 1.82 H Est GFR ( Amer) 34 L Glucose 81 Calcium 8.6 Total Bilirubin 0.4 AST 51 H Alkaline Phosphatase 63 Total Protein 6.5 Albumin 3.2 L 04/16/19 12:45 Creatine Kinase 210 H Impressions: Hip/Pelvis X-Ray 04/16/19 11:52 IMPRESSION: NEGATIVE STUDY OF THE RIGHT HIP. NO RADIOGRAPHIC EVIDENCE OF ACUTE INJURY. Gallstones. Abdomen/Pelvis CT 04/16/19 14:48 IMPRESSION: 1. Status post colectomy with a right hemiabdomen ileostomy. 2. Mildly distended urinary bladder. 3. Cholelithiasis. Hip X-Ray 04/18/19 00:00 IMPRESSION: NEGATIVE STUDY OF THE RIGHT AND LEFT HIPS AND PELVIS. NO RADIO GRAPHIC EVIDENCE OF ACUTE INJURY. Upper GI and Small Bowel X-Ray 04/20/19 00:00 IMPRESSION: NORMAL LIMITED SINGLE CONTRAST SWALLOW / UPPER GI SERIES / SMALL BOWEL SERIES. Assessment & Plan - Diagnosis (1) Acute kidney injury Is this a current diagnosis for this admission?: Yes (2) Urinary tract infection Qualifiers: Urinary tract infection type: acute cystitis Hematuria presence: without hematuria Qualified Code(s): N30.00 - Acute cystitis without hematuria Is this a current diagnosis for this admission?: Yes (3) High output ileostomy Is this a current diagnosis for this admission?: Yes (4) UTI due to Klebsiella species Is this a current diagnosis for this admission?: Yes (5) Epigastric pain Is this a current diagnosis for this admission?: Yes (6) Essential (primary) hypertension Is this a current diagnosis for this admission?: Yes
[2019-05-01 20:51] LABS: ALBUMIN 3.4 g/dL (3.5-5.0); ALKALINE PHOSPHATASE 64 U/L (38-126); ANION GAP 8 (5-19); ASPARTATE AMINO TRANSFERASE 44 U/L (14-36); BILIRUBIN,DIRECT 0.3 mg/dL (0.0-0.4); BILIRUBIN,TOTAL 0.4 mg/dL (0.2-1.3); BLOOD UREA NITROGEN 17 mg/dL (7-20); CARBON DIOXIDE 28 mmol/L (22-30); CHLORIDE 99 mmol/L (98-107); GLUCOSE 122 mg/dL (75-110); POTASSIUM 3.7 mmol/L (3.6-5.0); TOTAL PROTEIN 6.5 g/dL (6.3-8.2)
[2019-05-01] MEDS: FAMOTIDINE 20 MG TABLET PO SCH (21:40)
[2019-05-01] MEDS: METOPROLOL TARTRATE 100 MG TABLET PO SCH (21:41)
[2019-05-01] MEDS: ATORVASTATIN CALCIUM 10 MG TABLET PO SCH (21:41)
[2019-05-02] MEDS: HYDROMORPHONE HCL INJ/PF 2 MG/ML AMPULE IV PRN ×6 (00:14→21:36)
[2019-05-02] MEDS: 1/2 NORMAL SALINE 1,000 ML IV PRN ×2 (04:28→17:19)
[2019-05-02] MEDS: SODIUM BICARBONATE 650 MG TABLET PO SCH ×3 (05:50→21:37)
[2019-05-02] MEDS: HYDRALAZINE HCL 50 MG TABLET PO SCH ×3 (05:50→21:36)
[2019-05-02] MEDS: PANTOPRAZOLE SODIUM 40 MG TABLET.DR PO SCH (05:50)
[2019-05-02] MEDS: HEPARIN SOD (PORCINE) 5,000 UNIT/ML 1 ML VIAL SUBCUT SCH ×3 (05:51→21:37)
[2019-05-02 06:32] LABS: ALBUMIN 2.8 g/dL (3.5-5.0); ALKALINE PHOSPHATASE 54 U/L (38-126); ANION GAP 6 (5-19); ASPARTATE AMINO TRANSFERASE 42 U/L (14-36); BILIRUBIN,DIRECT 0.3 mg/dL (0.0-0.4); BILIRUBIN,TOTAL 0.4 mg/dL (0.2-1.3); BLOOD UREA NITROGEN 15 mg/dL (7-20); CALCIUM 7.8 mg/dL (8.4-10.2); CARBON DIOXIDE 24 mmol/L (22-30); CHLORIDE 107 mmol/L (98-107); GLUCOSE 83 mg/dL (75-110); POTASSIUM 3.5 mmol/L (3.6-5.0); TOTAL PROTEIN 6.1 g/dL (6.3-8.2)
[2019-05-02] MEDS: INSULIN LISPRO 100 UNIT/ML 3 ML VIAL SUBCUT SCH ×4 (08:35→21:37)
[2019-05-02] MEDS: CALCITRIOL 0.25 MCG CAPSULE PO SCH (10:04)
[2019-05-02] MEDS: MAGNESIUM OXIDE 400 MG TABLET PO SCH (10:04)
[2019-05-02] MEDS: AMLODIPINE BESYLATE 10 MG TABLET PO SCH (10:04)
[2019-05-02] MEDS: GABAPENTIN 300 MG CAPSULE PO SCH ×2 (10:05→21:36)
[2019-05-02] MEDS: SITAGLIPTIN PHOSPHATE 50 MG TABLET PO SCH (10:05)
[2019-05-02] MEDS: ALLOPURINOL 100 MG TABLET PO SCH (10:05)
[2019-05-02] MEDS: COLCHICINE 0.6 MG TABLET PO SCH (10:06)
[2019-05-02] MEDS: LOPERAMIDE HCL 2 MG CAPSULE PO PRN (17:14)
--- NOTE | 2019-05-02 18:32 | PDOC PROGRESS REPORT ---
Subjective Progress Note for:: 05/02/19 Subjective:: The serum creatinine was 5, 2 days ago, she had increased ileostomy output precipitating acute kidney injury, that has been the pattern for this patient in the last many years, she has total colectomy with high output ileostomy bag, she has increased risk of acute kidney injury usually secondary to her loss of fluid in the bag, in the last 2 days before now she had a normal serum creatinine, the plan was to discharge her home but she says she was not feeling well interestingly we will check the lab work and there is a bump in the serum creatinine from normal serum creatinine to 5 suggesting acute kidney injury due to prerenal azotemia rather than intrinsic kidney disease.Patient's management continues to be challenging Reason For Visit: RENAL FAILURE Physical Exam Vital Signs: Temp Pulse Resp BP Pulse Ox 98.6 F 151 H 16 116/68 98 05/02/19 15:30 05/02/19 15:30 05/02/19 15:30 05/02/19 15:30 05/02/19 15:30 Intake & Output 05/01/19 05/02/19 05/03/19 06:59 06:59 06:59 Intake Total 1248 3570 2020 Output Total 475 3350 500 Balance 091 131 8130 Weight 121.8 kg 121.8 kg General appearance: PRESENT: no acute distress Eye exam: PRESENT: PERRLA Respiratory exam: PRESENT: clear to auscultation stephen Cardiovascular exam: PRESENT: +S1, +S2 Results Laboratory Results: 04/29/19 17:02 05/02/19 05:49 05/01/19 05/02/19 20:15 05:49 Sodium 134.7 L 137.2 Potassium 3.7 3.5 L Chloride 99 107 Carbon Dioxide 28 24 Anion Gap 8 6 BUN 17 15 Creatinine 1.71 H 1.51 H Est GFR ( Amer) 37 L 42 L Glucose 122 H 83 Calcium 8.0 L 7.8 L Total Bilirubin 0.4 0.4 AST 44 H 42 H Alkaline Phosphatase 64 54 Total Protein 6.5 6.1 L Albumin 3.4 L 2.8 L 04/16/19 12:45 Creatine Kinase 210 H Impressions: Hip/Pelvis X-Ray 04/16/19 11:52 IMPRESSION: NEGATIVE STUDY OF THE RIGHT HIP. NO RADIOGRAPHIC EVIDENCE OF ACUTE INJURY. Gallstones. Abdomen/Pelvis CT 04/16/19 14:48 IMPRESSION: 1. Status post colectomy with a right hemiabdomen ileostomy. 2. Mildly distended urinary bladder. 3. Cholelithiasis. Hip X-Ray 04/18/19 00:00 IMPRESSION: NEGATIVE STUDY OF THE RIGHT AND LEFT HIPS AND PELVIS. NO RADIOGRAPHIC EVIDENCE OF ACUTE INJURY. Upper GI and Small Bowel X-Ray 04/20/19 00:00 IMPRESSION: NORMAL LIMITED SINGLE CONTRAST SWALLOW / UPPER GI SERIES / SMALL BOWEL SERIES. Assessment & Plan - Diagnosis (1) Acute kidney injury Is this a current diagnosis for this admission?: Yes (2) Urinary tract infection Qualifiers: Urinary tract infection type: acute cystitis Hematuria presence: without hematuria Qualified Code(s): N30.00 - Acute cystitis without hematuria Is this a current diagnosis for this admission?: Yes (3) High output ileostomy Is this a current diagnosis for this admission?: Yes (4) UTI due to Klebsiella species Is this a current diagnosis for this admission?: Yes (5) Epigastric pain Is this a current diagnosis for this admission?: Yes (6) Essential (primary) hypertension Is this a current diagnosis for this admission?: Yes
[2019-05-02] MEDS: METOPROLOL TARTRATE 100 MG TABLET PO SCH (21:36)
[2019-05-02] MEDS: FAMOTIDINE 20 MG TABLET PO SCH (21:36)
[2019-05-02] MEDS: DIPHENOXYLATE HCL/ATROP SULF 2.5-0.025 MG TABLET PO SCH (21:37)
[2019-05-02] MEDS: ATORVASTATIN CALCIUM 10 MG TABLET PO SCH (21:37)
[2019-05-02] MEDS: MICONAZOLE NITRATE 2% VAGINAL CREAM 45 GM TUBE VG SCH (22:25)
--- NOTE | 2019-05-02 23:08 | PDOC CONSULTATION ---
Consultation Consult Date: 05/02/19 Attending physician:: LISA MATA Provider Consulted: HECTOR PARK Consult reason:: vaginal discharge History of Present Illness Admission Date/PCP: 04/16/19 15:17 LISA MATA MD Patient complains of: vaginal discharge since 2008 History of Present Illness: RANDEE VELÁSQUEZ is a 63 year old female with multiple comorbidities including morbid obesity with poor ronni hygeine reports vaginal discharge since 2008. She reports that she had a hysterectomy in approximately 14 years ago for fibroids. She reports she was on hormones until her heart attack but not since. She reports that she has had this vaginal discharge since 2008 and that sometimes it is brownish. Not itchy, no clumps. She wears a pad usually. Past Medical History Gynecological Infection: No Cardiac Medical History: Reports: Atrial Fibrillation, Coronary Artery Disease, DVT, Myocardial Infarction - 2002, Hyperlipidema, Hypertension Pulmonary Medical History: Reports: Pneumonia - 2006 Neurological Medical History: Endocrine Medical History: Reports: Diabetes Mellitus Type 1, Diabetes Mellitus Type 2 Renal/ Medical History: Reports: Chronic Kidney Disease Malignancy Medical History: Reports: Renal (Kidney) Cancer GI Medical History: Reports: Gastroesophageal Reflux Disease, Hiatal Hernia Musculoskeltal Medical History: Reports: Arthritis - Back, Knees Psychiatric Medical History: Denies: Depression Social History Information Source: Patient Lives with: Alone Smoking Status: Never Smoker Frequency of Alcohol Use: None Hx Recreational Drug Use: No Drugs: None Hx Prescription Drug Abuse: No Family History Family History: Reviewed & Not Pertinent, Hypertension Parental Family History Reviewed: No Children Family History Reviewed: NA Sibling(s) Family History Reviewed.: NA Medication/Allergy Home Medications: Allopurinol [Zyloprim 100 mg Tablet] 100 mg PO DAILY 01/31/19 Betamet Diprop/Prop Gly [Betamethasone Dp Aug 0.05% Cream] 1 applic TP BID 01/31/19 Calcitriol [Rocaltrol 0.5 mcg Capsule] 0.5 mcg PO DAILY 01/31/19 Colchicine [Colcrys 0.6 mg Tablet] 0.6 mg PO DAILY 01/31/19 Dapagliflozin Propanediol [Farxiga] 5 mg PO DAILY 01/31/19 Ergocalciferol (Vitamin D2) [Drisdol 50,000 unit (1.25MG) Capsule] 50,000 unit PO SA@1000 01/31/19 Exenatide Microspheres [Bydureon Pen] 2 mg SQ KYLE@1000 01/31/19 Gabapentin [Neurontin] 600 mg PO QID 01/31/19 Hydralazine HCl [Apresoline 50 mg Tablet] 50 mg PO TID 01/31/19 Insulin Aspart [Novolog Flexpen] 12 unit SQ TIDP PRN 01/31/19 Insulin Glargine,Hum.rec.anlog [Basaglar Kwikpen U-100] 60 unit SQ BIDP PRN 01/31/19 Metoprolol Succinate [Toprol Xl] 200 mg PO DAILY 01/31/19 Nystatin [Mycostatin Cream 15 gm] 1 applic TP BID 01/31/19 Oxycodone HCl [Oxy-Ir 5 mg Tablet] 10 mg PO Q8HP PRN 01/31/19 Oxycodone Myristate [Xtampza ER] 18 mg PO Q12 01/31/19 Pravastatin Sodium [Pravachol] 40 mg PO QHS 01/31/19 Sitagliptin Phosphate [Januvia 50 mg Tablet] 50 mg PO DAILY 01/31/19 Sodium Bicarbonate [Sodium Bicarbonate 650 mg Tablet] 1,300 mg PO TID 01/31/19 Albuterol Sulfate [Albuterol Sulfate Hfa] 2 puff IH Q4HP PRN 02/20/19 Clobetasol Propionate [Temovate 0.05% Cream 15 gm] 1 applic TP BID 02/20/19 Loperamide HCl [Imodium 2 mg Capsule] 2 mg PO ASDIR PRN 02/20/19 Magnesium Oxide [Mag-Ox 400 mg Tablet] 400 mg PO DAILY 02/20/19 Aspirin [Ecotrin 81 mg EC Tablet] 81 mg PO DAILY 04/17/19 Naloxone HCl [Evzio] 2 mg IJ ASDIR PRN 04/17/19 Allergies/Adverse Reactions: ciprofloxacin [From Cipro] Allergy (Severe, Verified 11/16/18 14:04) Hallucinations morphine [Morphine] Allergy (Unknown, Verified 11/16/18 14:04) Physical Exam - Physical Exam Vital Signs: Temp Pulse Resp BP Pulse Ox 97.6 F 78 17 113/72 94 05/02/19 20:17 05/02/19 20:17 05/02/19 20:17 05/02/19 20:17 05/02/19 20:17 Intake & Output 05/01/19 05/02/19 05/03/19 06:59 06:59 06:59 Intake Total 1248 3570 2020 Output Total 475 3350 500 Balance 659 498 6978 Weight 121.8 kg 121.8 kg General appearance: PRESENT: no acute distress, morbidly obese, well-developed, well-nourished Neurological exam: PRESENT: alert, awake, oriented to person, oriented to place, oriented to time, oriented to situation, CN II-XII grossly intact. ABSENT: motor sensory deficit Psychiatric exam: PRESENT: appropriate affect, normal mood. ABSENT: homicidal ideation, suicidal ideation - Gynecological Exam Labia: normal Urethra: normal Introitus: normal Perineum: other - postmenopausal atrophic changes. minimal discharge on peripad and yellowish discharge on swab noted. Not copious discharge and patient has significant discomfort with attempting exam due to positioning and obesity and postmenopausal atrophic changes. Will defer speculum exam as that would not add anything to the management of this patient. Result Laboratory Results: 04/29/19 17:02 05/02/19 05:49 05/02/19 05:49 Sodium 137.2 Potassium 3.5 L Chloride 107 Carbon Dioxide 24 Anion Gap 6 BUN 15 Creatinine 1.51 H Est GFR ( Amer) 42 L Glucose 83 Calcium 7.8 L Total Bilirubin 0.4 AST 42 H Alkaline Phosphatase 54 Total Protein 6.1 L Albumin 2.8 L 04/16/19 12:45 Creatine Kinase 210 H Impressions: Hip/Pelvis X-Ray 04/16/19 11:52 IMPRESSION: NEGATIVE STUDY OF THE RIGHT HIP. NO RADIOGRAPHIC EVIDENCE OF ACUTE INJURY. Gallstones. Abdomen/Pelvis CT 04/16/19 14:48 IMPRESSION: 1. Status post colectomy with a right hemiabdomen ileostomy. 2. Mildly distended urinary bladder. 3. Cholelithiasis. Hip X-Ray 04/18/19 00:00 IMPRESSION: NEGATIVE STUDY OF THE RIGHT AND LEFT HIPS AND PELVIS. NO RADIOGRAPHIC EVIDENCE OF ACUTE INJURY. Upper GI and Small Bowel X-Ray 04/20/19 00:00 IMPRESSION: NORMAL LIMITED SINGLE CONTRAST SWALLOW / UPPER GI SERIES / SMALL BOWEL SERIES. Status: Imported from PACS Assessment & Plan - Diagnosis (1) Inflammatory disease of vagina Is this a current diagnosis for this admission?: Yes Plan: speculum exam not done as it would not add anything in this setting. Recommend patient be seen in office once discharge if symptoms still present. reviewed betadine douch with patient for outpatient as ronni care is lacking and will likely still be so as an outpatient. Genital culture and GC/CT done. f/u as outpatient for further management (2) Vulvovaginal candidiasis Is this a current diagnosis for this admission?: Yes Plan: 04/21/2019 wet prep noted yeast. monistat for 7 days ordered - Time Time Spent: 30 to 50 Minutes Critical Time spent with patient: Less than 15 minutes Medications reviewed and adjusted accordingly: Yes Anticipated discharge: Home Within: Other - per primary team
[2019-05-03 00:07] LABS: CHLAM PCR NOT DETECTED (NOT DETECT)
[2019-05-03] MEDS: HYDROMORPHONE HCL INJ/PF 2 MG/ML AMPULE IV PRN ×5 (03:12→22:54)
[2019-05-03] MEDS: PANTOPRAZOLE SODIUM 40 MG TABLET.DR PO SCH (05:03)
[2019-05-03] MEDS: SODIUM BICARBONATE 650 MG TABLET PO SCH ×3 (05:03→23:02)
[2019-05-03] MEDS: HYDRALAZINE HCL 50 MG TABLET PO SCH ×3 (05:04→23:03)
[2019-05-03] MEDS: HEPARIN SOD (PORCINE) 5,000 UNIT/ML 1 ML VIAL SUBCUT SCH ×3 (05:04→23:05)
[2019-05-03] MEDS: LOPERAMIDE HCL 2 MG CAPSULE PO PRN (05:09)
[2019-05-03] MEDS: 1/2 NORMAL SALINE 1,000 ML IV PRN ×2 (05:09→22:58)
[2019-05-03] MEDS: INSULIN LISPRO 100 UNIT/ML 3 ML VIAL SUBCUT SCH ×3 (07:51→22:53)
[2019-05-03] MEDS: SITAGLIPTIN PHOSPHATE 50 MG TABLET PO SCH (09:32)
[2019-05-03] MEDS: GABAPENTIN 300 MG CAPSULE PO SCH ×2 (09:32→23:01)
[2019-05-03] MEDS: MAGNESIUM OXIDE 400 MG TABLET PO SCH (09:32)
[2019-05-03] MEDS: AMLODIPINE BESYLATE 10 MG TABLET PO SCH (09:32)
[2019-05-03] MEDS: DIPHENOXYLATE HCL/ATROP SULF 2.5-0.025 MG TABLET PO SCH ×4 (09:32→23:02)
[2019-05-03] MEDS: ALLOPURINOL 100 MG TABLET PO SCH (09:32)
[2019-05-03] MEDS: COLCHICINE 0.6 MG TABLET PO SCH (09:32)
[2019-05-03] MEDS: CALCITRIOL 0.25 MCG CAPSULE PO SCH (09:32)
[2019-05-03 10:00] LABS: ABSOLUTE BASOPHILS # (AUTO) 0.1 10^3/uL (0.0-0.2); ABSOLUTE EOSINOPHILS # (AUTO) 0.3 10^3/uL (0.0-0.6); ABSOLUTE LYMPHOCYTES (AUTO) 1.1 10^3/uL (0.5-4.7); ABSOLUTE MONOCYTES (AUTO) 0.6 10^3/uL (0.1-1.4); ABSOLUTE NEUT (AUTO) 2.8 10^3/uL (1.7-8.2); BASOPHILS % (AUTO) 1.2 % (0-2); EOSINOPHILS % (AUTO) 6.5 % (0-6); HEMATOCRIT 36.4 % (36.0-47.0); HEMOGLOBIN 11.6 g/dL (12.0-15.5); LYMPHOCYTES % (AUTO) 23.4 % (13-45); MEAN CORPUSCULAR HEMOGLOBIN 29.7 pg (27.0-33.4); MEAN CORPUSCULAR HGB CONC 31.9 g/dL (32.0-36.0); MEAN CORPUSCULAR VOLUME 93 fl (80-97); PLATELET COUNT 229 10^3/uL (150-450); RED BLOOD COUNT 3.91 10^6/uL (3.72-5.28); RED CELL DISTRIBUTION WIDTH 17.3 % (11.5-14.0); SEGMENTED NEUTROPHILS % (AUTO) 56.9 % (42-78); TOTAL CELLS COUNTED % (AUTO) 100 %; WHITE BLOOD COUNT 4.9 10^3/uL (4.0-10.5)
[2019-05-03 10:13] LABS: ALBUMIN 3.4 g/dL (3.5-5.0); ALKALINE PHOSPHATASE 69 U/L (38-126); ANION GAP 7 (5-19); ASPARTATE AMINO TRANSFERASE 48 U/L (14-36); BILIRUBIN,DIRECT 0.3 mg/dL (0.0-0.4); BILIRUBIN,TOTAL 0.4 mg/dL (0.2-1.3); BLOOD UREA NITROGEN 14 mg/dL (7-20); CALCIUM 9.1 mg/dL (8.4-10.2); CARBON DIOXIDE 30 mmol/L (22-30); CHLORIDE 102 mmol/L (98-107); GLUCOSE 122 mg/dL (75-110); POTASSIUM 4.3 mmol/L (3.6-5.0); TOTAL PROTEIN 6.9 g/dL (6.3-8.2)
--- NOTE | 2019-05-03 16:09 | PDOC PROGRESS REPORT ---
Subjective Progress Note for:: 05/03/19 Subjective:: Patient seen by the bedside, fluid balance continues to be challenging in this patient, with fluctuating kidney function, she has high output ileostomy bag she is status post total colectomy Reason For Visit: RENAL FAILURE Physical Exam Vital Signs: Temp Pulse Resp BP Pulse Ox 98.5 F 77 19 105/69 96 05/03/19 11:05 05/03/19 14:00 05/03/19 11:05 05/03/19 11:05 05/03/19 11:05 Intake & Output 05/02/19 05/03/19 05/04/19 06:59 06:59 06:59 Intake Total 3570 3567 Output Total 3350 2150 Balance 220 1417 Weight 121.8 kg 120 kg General appearance: PRESENT: no acute distress Eye exam: PRESENT: PERRLA Respiratory exam: PRESENT: clear to auscultation stephen Cardiovascular exam: PRESENT: +S1, +S2 Results Laboratory Results: 05/03/19 09:35 05/03/19 09:35 05/03/19 05/03/19 09:35 09:35 WBC 4.9 RBC 3.91 Hgb 11.6 L Hct 36.4 MCV 93 MCH 29.7 MCHC 31.9 L RDW 17.3 H Plt Count 229 Seg Neutrophils % 56.9 Sodium 139.0 Potassium 4.3 Chloride 102 Carbon Dioxide 30 Anion Gap 7 BUN 14 Creatinine 1.75 H Est GFR ( Amer) 36 L Glucose 122 H Calcium 9.1 Total Bilirubin 0.4 AST 48 H Alkaline Phosphatase 69 Total Protein 6.9 Albumin 3.4 L 04/16/19 12:45 Creatine Kinase 210 H Impressions: Hip/Pelvis X-Ray 04/16/19 11:52 IMPRESSION: NEGATIVE STUDY OF THE RIGHT HIP. NO RADIOGRAPHIC EVIDENCE OF ACUTE INJURY. Gallstones. Abdomen/Pelvis CT 04/16/19 14:48 IMPRESSION: 1. Status post colectomy with a right hemiabdomen ileostomy. 2. Mildly distended urinary bladder. 3. Cholelithiasis. Hip X-Ray 04/18/19 00:00 IMPRESSION: NEGATIVE STUDY OF THE RIGHT AND LEFT HIPS AND PELVIS. NO RADIOGRAPHIC EVIDENCE OF ACUTE INJURY. Upper GI and Small Bowel X-Ray 04/20/19 00:00 IMPRESSION: NORMAL LIMITED SINGLE CONTRAST SWALLOW / UPPER GI SERIES / SMALL BOWEL SERIES. Assessment & Plan - Diagnosis (1) Acute kidney injury Is this a current diagnosis for this admission?: Yes (2) Urinary tract infection Qualifiers: Urinary tract infection type: acute cystitis Hematuria presence: without hematuria Qualified Code(s): N30.00 - Acute cystitis without hematuria Is this a current diagnosis for this admission?: Yes (3) High output ileostomy Is this a current diagnosis for this admission?: Yes Plan: Consult GI for new ideas (4) UTI due to Klebsiella species Is this a current diagnosis for this admission?: Yes (5) Epigastric pain Is this a current diagnosis for this admission?: Yes (6) Essential (primary) hypertension Is this a current diagnosis for this admission?: Yes
[2019-05-03] MEDS: ACETAMINOPHEN 325 MG TABLET PO PRN (23:00)
[2019-05-03] MEDS: METOPROLOL TARTRATE 100 MG TABLET PO SCH (23:03)
[2019-05-03] MEDS: ATORVASTATIN CALCIUM 10 MG TABLET PO SCH (23:03)
[2019-05-03] MEDS: FAMOTIDINE 20 MG TABLET PO SCH (23:04)
[2019-05-03] MEDS: MICONAZOLE NITRATE 2% VAGINAL CREAM 45 GM TUBE VG SCH (23:10)
[2019-05-04] MEDS: HYDROMORPHONE HCL INJ/PF 2 MG/ML AMPULE IV PRN ×5 (02:58→20:07)
[2019-05-04] MEDS: PANTOPRAZOLE SODIUM 40 MG TABLET.DR PO SCH (06:54)
[2019-05-04] MEDS: SODIUM BICARBONATE 650 MG TABLET PO SCH ×3 (06:54→23:18)
[2019-05-04] MEDS: HYDRALAZINE HCL 50 MG TABLET PO SCH ×3 (06:54→23:11)
[2019-05-04] MEDS: HEPARIN SOD (PORCINE) 5,000 UNIT/ML 1 ML VIAL SUBCUT SCH ×3 (06:55→23:11)
[2019-05-04] MEDS: INSULIN LISPRO 100 UNIT/ML 3 ML VIAL SUBCUT SCH ×5 (08:08→23:12)
[2019-05-04] MEDS: AMLODIPINE BESYLATE 10 MG TABLET PO SCH (10:26)
[2019-05-04] MEDS: COLCHICINE 0.6 MG TABLET PO SCH (10:27)
[2019-05-04] MEDS: SITAGLIPTIN PHOSPHATE 50 MG TABLET PO SCH (10:27)
[2019-05-04] MEDS: ALLOPURINOL 100 MG TABLET PO SCH (10:27)
[2019-05-04] MEDS: MAGNESIUM OXIDE 400 MG TABLET PO SCH (10:28)
[2019-05-04] MEDS: DIPHENOXYLATE HCL/ATROP SULF 2.5-0.025 MG TABLET PO SCH ×4 (10:28→23:17)
[2019-05-04] MEDS: CALCITRIOL 0.25 MCG CAPSULE PO SCH (10:28)
[2019-05-04] MEDS: GABAPENTIN 300 MG CAPSULE PO SCH ×2 (10:29→23:17)
[2019-05-04 10:59] LABS: ALBUMIN 3.4 g/dL (3.5-5.0); ALKALINE PHOSPHATASE 66 U/L (38-126); ANION GAP 8 (5-19); ASPARTATE AMINO TRANSFERASE 46 U/L (14-36); BILIRUBIN,DIRECT 0.2 mg/dL (0.0-0.4); BILIRUBIN,TOTAL 0.4 mg/dL (0.2-1.3); BLOOD UREA NITROGEN 15 mg/dL (7-20); CALCIUM 8.8 mg/dL (8.4-10.2); CARBON DIOXIDE 29 mmol/L (22-30); CHLORIDE 101 mmol/L (98-107); GLUCOSE 103 mg/dL (75-110); POTASSIUM 4.4 mmol/L (3.6-5.0); TOTAL PROTEIN 6.7 g/dL (6.3-8.2)
[2019-05-04] MEDS: 1/2 NORMAL SALINE 1,000 ML IV PRN (11:39)
[2019-05-04] MEDS: LOPERAMIDE HCL 2 MG CAPSULE PO PRN (14:08)
--- NOTE | 2019-05-04 20:34 | PDOC PROGRESS REPORT ---
Subjective Progress Note for:: 05/04/19 Subjective:: Patient seen by the bedside, fluid balance continues to be challenging in this patient, with fluctuating kidney function, she has high output ileostomy bag she is status post total colectomy Reason For Visit: RENAL FAILURE Physical Exam Vital Signs: Temp Pulse Resp BP Pulse Ox 98.5 F 76 17 125/78 98 05/04/19 16:31 05/04/19 16:31 05/04/19 16:31 05/04/19 16:31 05/04/19 16:31 Intake & Output 05/03/19 05/04/19 05/05/19 06:59 06:59 06:59 Intake Total 3567 1662 2050 Output Total 2150 1500 1650 Balance 1417 162 400 Weight 120 kg 121.1 kg General appearance: PRESENT: no acute distress Eye exam: PRESENT: PERRLA Respiratory exam: PRESENT: clear to auscultation stephen Cardiovascular exam: PRESENT: +S1, +S2 GI/Abdominal exam: PRESENT: soft Neurological exam: PRESENT: alert Results Laboratory Results: 05/03/19 09:35 05/04/19 10:15 05/04/19 10:15 Sodium 137.8 Potassium 4.4 Chloride 101 Carbon Dioxide 29 Anion Gap 8 BUN 15 Creatinine 1.87 H Est GFR ( Amer) 33 L Glucose 103 Calcium 8.8 Total Bilirubin 0.4 AST 46 H Alkaline Phosphatase 66 Total Protein 6.7 Albumin 3.4 L 04/16/19 12:45 Creatine Kinase 210 H Impressions: Hip/Pelvis X-Ray 04/16/19 11:52 IMPRESSION: NEGATIVE STUDY OF THE RIGHT HIP. NO RADIOGRAPHIC EVIDENCE OF ACUTE INJURY. Gallstones. Abdomen/Pelvis CT 04/16/19 14:48 IMPRESSION: 1. Status post colectomy with a right hemiabdomen ileostomy. 2. Mildly distended urinary bladder. 3. Cholelithiasis. Hip X-Ray 04/18/19 00:00 IMPRESSION: NEGATIVE STUDY OF THE RIGHT AND LEFT HIPS AND PELVIS. NO RADIOGRAPHIC EVIDENCE OF ACUTE INJURY. Upper GI and Small Bowel X-Ray 04/20/19 00:00 IMPRESSION: NORMAL LIMITED SINGLE CONTRAST SWALLOW / UPPER GI SERIES / SMALL BOWEL SERIES. Assessment & Plan - Diagnosis (1) Acute kidney injury Is this a current diagnosis for this admission?: Yes Plan: Continue fluid therapy monitor chemistry (2) Urinary tract infection Qualifiers: Urinary tract infection type: acute cystitis Hematuria presence: without hematuria Qualified Code(s): N30.00 - Acute cystitis without hematuria Is this a current diagnosis for this admission?: Yes (3) High output ileostomy Is this a current diagnosis for this admission?: Yes (4) UTI due to Klebsiella species Is this a current diagnosis for this admission?: Yes (5) Epigastric pain Is this a current diagnosis for this admission?: Yes (6) Essential (primary) hypertension Is this a current diagnosis for this admission?: Yes
[2019-05-04] MEDS: METOPROLOL TARTRATE 100 MG TABLET PO SCH (23:17)
[2019-05-04] MEDS: ATORVASTATIN CALCIUM 10 MG TABLET PO SCH (23:17)
[2019-05-04] MEDS: FAMOTIDINE 20 MG TABLET PO SCH (23:18)
[2019-05-04] MEDS: MICONAZOLE NITRATE 2% VAGINAL CREAM 45 GM TUBE VG SCH (23:23)
[2019-05-05] MEDS: HYDROMORPHONE HCL INJ/PF 2 MG/ML AMPULE IV PRN ×6 (00:16→21:58)
[2019-05-05] MEDS: 1/2 NORMAL SALINE 1,000 ML IV PRN ×2 (00:22→12:27)
[2019-05-05] MEDS: SODIUM BICARBONATE 650 MG TABLET PO SCH ×3 (05:30→22:00)
[2019-05-05] MEDS: HYDRALAZINE HCL 50 MG TABLET PO SCH ×3 (05:30→22:00)
[2019-05-05] MEDS: PANTOPRAZOLE SODIUM 40 MG TABLET.DR PO SCH (05:30)
[2019-05-05] MEDS: HEPARIN SOD (PORCINE) 5,000 UNIT/ML 1 ML VIAL SUBCUT SCH ×3 (05:31→21:49)
[2019-05-05 07:22] LABS: ALBUMIN 3.2 g/dL (3.5-5.0); ALKALINE PHOSPHATASE 63 U/L (38-126); ANION GAP 8 (5-19); ASPARTATE AMINO TRANSFERASE 42 U/L (14-36); BILIRUBIN,DIRECT 0.3 mg/dL (0.0-0.4); BILIRUBIN,TOTAL 0.5 mg/dL (0.2-1.3); BLOOD UREA NITROGEN 16 mg/dL (7-20); CALCIUM 8.9 mg/dL (8.4-10.2); CARBON DIOXIDE 26 mmol/L (22-30); CHLORIDE 102 mmol/L (98-107); GLUCOSE 96 mg/dL (75-110); POTASSIUM 4.4 mmol/L (3.6-5.0); TOTAL PROTEIN 6.5 g/dL (6.3-8.2)
[2019-05-05] MEDS: INSULIN LISPRO 100 UNIT/ML 3 ML VIAL SUBCUT SCH ×4 (09:04→21:49)
[2019-05-05] MEDS: LOPERAMIDE HCL 2 MG CAPSULE PO PRN (09:18)
[2019-05-05] MEDS: SITAGLIPTIN PHOSPHATE 50 MG TABLET PO SCH (10:06)
[2019-05-05] MEDS: MAGNESIUM OXIDE 400 MG TABLET PO SCH (10:06)
[2019-05-05] MEDS: AMLODIPINE BESYLATE 10 MG TABLET PO SCH (10:07)
[2019-05-05] MEDS: DIPHENOXYLATE HCL/ATROP SULF 2.5-0.025 MG TABLET PO SCH ×4 (10:07→22:00)
[2019-05-05] MEDS: GABAPENTIN 300 MG CAPSULE PO SCH ×2 (10:07→22:00)
[2019-05-05] MEDS: COLCHICINE 0.6 MG TABLET PO SCH (10:07)
[2019-05-05] MEDS: ALLOPURINOL 100 MG TABLET PO SCH (10:07)
[2019-05-05] MEDS: CALCITRIOL 0.25 MCG CAPSULE PO SCH (10:07)
[2019-05-05] MEDS: CHOLESTYRAMINE/ASPARTAME 4 GM PACKET PO SCH (18:05)
--- NOTE | 2019-05-05 19:18 | PDOC PROGRESS REPORT ---
Subjective Progress Note for:: 05/05/19 Subjective:: Patient condition, management is very challenging, the serum creatinine is 1.9, she has high output ileostomy bag, she continues to have a lots of fluid in the ileostomy bag, precipitating acute kidney injury, she is still on IV fluid, GI consultation is obtained for ideas on how to proceed. This is ongoing problem with this patient, unfortunately lately it has become more persistent and difficult to manage Reason For Visit: RENAL FAILURE Physical Exam Vital Signs: Temp Pulse Resp BP Pulse Ox 98.5 F 74 18 120/68 98 05/05/19 11:10 05/05/19 14:00 05/05/19 11:10 05/05/19 11:10 05/05/19 11:10 Intake & Output 05/04/19 05/05/19 05/06/19 06:59 06:59 06:59 Intake Total 1662 3629 1443 Output Total 1500 2800 600 Balance 162 829 843 Weight 121.1 kg 123.4 kg General appearance: PRESENT: no acute distress Eye exam: PRESENT: PERRLA Respiratory exam: PRESENT: clear to auscultation stephen Cardiovascular exam: PRESENT: +S1, +S2 GI/Abdominal exam: PRESENT: soft Neurological exam: PRESENT: alert Results Laboratory Results: 05/03/19 09:35 05/05/19 06:30 05/05/19 06:30 Sodium 136.3 L Potassium 4.4 Chloride 102 Carbon Dioxide 26 Anion Gap 8 BUN 16 Creatinine 1.97 H Est GFR ( Amer) 31 L Glucose 96 Calcium 8.9 Total Bilirubin 0.5 AST 42 H Alkaline Phosphatase 63 Total Protein 6.5 Albumin 3.2 L 05/02/19 21:55 Vaginal Gram Stain - Final 05/02/19 21:55 Vaginal Vaginal Culture - Final Yeast, Not Grisel Albicans Normal Vaginal Graciela No Neisseria Gonorrhoeae No Group B Strep Recovered 04/16/19 12:45 Creatine Kinase 210 H Impressions: Hip/Pelvis X-Ray 04/16/19 11:52 IMPRESSION: NEGATIVE STUDY OF THE RIGHT HIP. NO RADIOGRAPHIC EVIDENCE OF ACUTE INJURY. Gallstones. Abdomen/Pelvis CT 04/16/19 14:48 IMPRESSION: 1. Status post colectomy with a right hemiabdomen ileostomy. 2. Mildly distended urinary bladder. 3. Cholelithiasis. Hip X-Ray 04/18/19 00:00 IMPRESSION: NEGATIVE STUDY OF THE RIGHT AND LEFT HIPS AND PELVIS. NO RADIOGR APHIC EVIDENCE OF ACUTE INJURY. Upper GI and Small Bowel X-Ray 04/20/19 00:00 IMPRESSION: NORMAL LIMITED SINGLE CONTRAST SWALLOW / UPPER GI SERIES / SMALL BOWEL SERIES. Assessment & Plan - Diagnosis (1) Acute kidney injury Is this a current diagnosis for this admission?: Yes (2) Urinary tract infection Qualifiers: Urinary tract infection type: acute cystitis Hematuria presence: without hematuria Qualified Code(s): N30.00 - Acute cystitis without hematuria Is this a current diagnosis for this admission?: Yes (3) High output ileostomy Is this a current diagnosis for this admission?: Yes Plan: Consult surgicalist (4) UTI due to Klebsiella species Is this a current diagnosis for this admission?: Yes (5) Epigastric pain Is this a current diagnosis for this admission?: Yes (6) Essential (primary) hypertension Is this a current diagnosis for this admission?: Yes
[2019-05-05] MEDS: FAMOTIDINE 20 MG TABLET PO SCH (22:00)
[2019-05-05] MEDS: ATORVASTATIN CALCIUM 10 MG TABLET PO SCH (22:00)
[2019-05-05] MEDS: METOPROLOL TARTRATE 100 MG TABLET PO SCH (22:00)
[2019-05-05] MEDS: MICONAZOLE NITRATE 2% VAGINAL CREAM 45 GM TUBE VG SCH (22:01)
--- NOTE | 2019-05-05 22:56 | PDOC CONSULTATION ---
Consultation Consult Date: 05/05/19 Provider Consulted: RAJEEV HURTADO Consult reason:: high output ileostomy History of Present Illness Admission Date/PCP: 04/16/19 15:17 LISA MATA MD History of Present Illness: RANDEE VELÁSQUEZ is a 63 year old female who had a history of subtotal colectomy with the ileostomy for what the patient claim was for perforated colon in 2006 at [place]. Since 2014 started to have a high output ileostomy and has been off and on in the hospital for dehydration. She was then admitted at this time for another episode of high output ileostomy with dehydration and surgeries been consulted for this. Patient has been on Imodium 2.5 mg p[address]o. [address] Hui just ordered Questran today. Past Medical History Cardiac Medical History: Reports: Atrial Fibrillation, Coronary Artery Disease, DVT, Myocardial Infarction - 2002, Hyperlipidema, Hypertension Pulmonary Medical History: Reports: Pneumonia - 2006 Neurological Medical History: Endocrine Medical History: Reports: Diabetes Mellitus Type 1, Diabetes Mellitus Type 2 Renal/ Medical History: Reports: Chronic Kidney Disease Malignancy Medical History: Reports: Renal (Kidney) Cancer GI Medical History: Reports: Gastroesophageal Reflux Disease, Hiatal Hernia Musculoskeltal Medical History: Reports: Arthritis - Back, Knees Psychiatric Medical History: Denies: Depression Hematology: Reports: Anemia Past Surgical History Past Surgical History: Reports: Cardiac Catheterization, Colostomy, Coronary Stent, Hysterectomy, Ileostomy, Orthopedic Surgery - L knee replacement, right ankle pin, Other - Tracheostomy 10 yrs ago Social History Lives with: Alone Smoking Status: Never Smoker Frequency of Alcohol Use: None Hx Recreational Drug Use: No Drugs: None Hx Prescription Drug Abuse: No Family History Family History: Reviewed & Not Pertinent, Hypertension Parental Family History Reviewed: Yes Children Family History Reviewed: No Sibling(s) Family History Reviewed.: No Medication/Allergy Home Medications: Allopurinol [Zyloprim 100 mg Tablet] 100 mg PO DAILY 01/31/19 Betamet Diprop/Prop Gly [Betamethasone Dp Aug 0.05% Cream] 1 applic TP BID 01/31/19 Calcitriol [Rocaltrol 0.5 mcg Capsule] 0.5 mcg PO DAILY 01/31/19 Colchicine [Colcrys 0.6 mg Tablet] 0.6 mg PO DAILY 01/31/19 Dapagliflozin Propanediol [Farxiga] 5 mg PO DAILY 01/31/19 Ergocalciferol (Vitamin D2) [Drisdol 50,000 unit (1.25MG) Capsule] 50,000 unit PO SA@1000 01/31/19 Exenatide Microspheres [Bydureon Pen] 2 mg SQ KYLE@1000 01/31/19 Gabapentin [Neurontin] 600 mg PO QID 01/31/19 Hydralazine HCl [Apresoline 50 mg Tablet] 50 mg PO TID 01/31/19 Insulin Aspart [Novolog Flexpen] 12 unit SQ TIDP PRN 01/31/19 Insulin Glargine,Hum.rec.anlog [Basaglar Kwikpen U-100] 60 unit SQ BIDP PRN 01/31/19 Metoprolol Succinate [Toprol Xl] 200 mg PO DAILY 01/31/19 Nystatin [Mycostatin Cream 15 gm] 1 applic TP BID 01/31/19 Oxycodone HCl [Oxy-Ir 5 mg Tablet] 10 mg PO Q8HP PRN 01/31/19 Oxycodone Myristate [Xtampza ER] 18 mg PO Q12 01/31/19 Pravastatin Sodium [Pravachol] 40 mg PO QHS 01/31/19 Sitagliptin Phosphate [Januvia 50 mg Tablet] 50 mg PO DAILY 01/31/19 Sodium Bicarbonate [Sodium Bicarbonate 650 mg Tablet] 1,300 mg PO TID 01/31/19 Albuterol Sulfate [Albuterol Sulfate Hfa] 2 puff IH Q4HP PRN 02/20/19 Clobetasol Propionate [Temovate 0.05% Cream 15 gm] 1 applic TP BID 02/20/19 Loperamide HCl [Imodium 2 mg Capsule] 2 mg PO ASDIR PRN 02/20/19 Magnesium Oxide [Mag-Ox 400 mg Tablet] 400 mg PO DAILY 02/20/19 Aspirin [Ecotrin 81 mg EC Tablet] 81 mg PO DAILY 04/17/19 Naloxone HCl [Evzio] 2 mg IJ ASDIR PRN 04/17/19 Allergies/Adverse Reactions: ciprofloxacin [From Cipro] Allergy (Severe, Verified 11/16/18 14:04) Hallucinations morphine [Morphine] Allergy (Unknown, Verified 11/16/18 14:04) Review of Systems Constitutional: PRESENT: as per HPI Physical Exam Vital Signs: Temp Pulse Resp BP Pulse Ox 99.0 F 72 17 128/73 H 96 05/05/19 19:45 05/05/19 19:45 05/05/19 19:45 05/05/19 19:45 05/05/19 19:45 Intake & Output 05/04/19 05/05/19 05/06/19 06:59 06:59 06:59 Intake Total 1662 3629 1983 Output Total 1500 2800 600 Balance 346 777 4469 Weight 121.1 kg 123.4 kg General appearance: PRESENT: no acute distress Eye exam: PRESENT: conjunctiva pink Neck exam: PRESENT: full ROM Respiratory exam: PRESENT: clear to auscultation stephen Cardiovascular exam: PRESENT: RRR Pulses: PRESENT: normal radial pulses Vascular exam: PRESENT: normal capillary refill Rectal exam: PRESENT: other - Ileostomy draining Neurological exam: PRESENT: alert, oriented to person, oriented to place, oriented to time, oriented to situation Psychiatric exam: PRESENT: appropriate affect Skin exam: PRESENT: normal color, warm Results Laboratory Results: 05/03/19 09:35 05/05/19 06:30 05/05/19 06:30 Sodium 136.3 L Potassium 4.4 Chloride 102 Carbon Dioxide 26 Anion Gap 8 BUN 16 Creatinine 1.97 H Est GFR ( Amer) 31 L Glucose 96 Calcium 8.9 Total Bilirubin 0.5 AST 42 H Alkaline Phosphatase 63 Total Protein 6.5 Albumin 3.2 L 05/02/19 21:55 Vaginal Gram Stain - Final 05/02/19 21:55 Vaginal Vaginal Culture - Final Yeast, Not Grisel Albicans Normal Vaginal Graciela No Neisseria Gonorrhoeae No Group B Strep Recovered 04/16/19 12:45 Creatine Kinase 210 H Impressions: Hip/Pelvis X-Ray 04/16/19 11:52 IMPRESSION: NEGATIVE STUDY OF THE RIGHT HIP. NO RADIOGRAPHIC EVIDENCE OF ACUTE INJURY. Gallstones. Abdomen/Pelvis CT 04/16/19 14:48 IMPRESSION: 1. Status post colectomy with a right hemiabdomen ileostomy. 2. Mildly distended urinary bladder. 3. Cholelithiasis. Hip X-Ray 04/18/19 00:00 IMPRESSION: NEGATIVE STUDY OF THE RIGHT AND LEFT HIPS AND PELVIS. NO RADIOGRAPHIC EVIDENCE OF ACUTE INJURY. Upper GI and Small Bowel X-Ray 04/20/19 00:00 IMPRESSION: NORMAL LIMITED SINGLE CONTRAST SWALLOW / UPPER GI SERIES / SMALL BOWEL SERIES. Assessment & Plan - Diagnosis (1) Renal insufficiency Is this a current diagnosis for this admission?: Yes (2) Dehydration Is this a current diagnosis for this admission?: Yes (3) Diabetes mellitus Qualifiers: Diabetes mellitus type: type 2 Chronic kidney disease stage: stage 3 (moderate) Is this a current diagnosis for this admission?: Yes (4) High output ileostomy Is this a current diagnosis for this admission?: Yes - Time Time Spent: 30 to 50 Minutes - Inpatient Certification Medical Necessity: Need For IV Fluids, Risk of Complication if Not Cared For in Hospital - Plan Summary Plan Summary: 63-year-old fit female post colon resection with ileostomy in 2006. Developed high output ileostomy drainage since 2014 and has been off and on in the hospital for dehydration. She is already on Imodium at 2.5 mg p.o. 4 times daily and just started on Questran by Dr. Gray today. Her abdomen is soft and nontender and the ileostomy has been draining. It has drained at least 2000 cc today. Recommendation: Continue with the Questran and see if the ileostomy drainage decreases. If not then I would suggest increasing the dose of Imodium to about 4 mg p.o. 4 times daily for a total dose of 16 mg daily. Will follow as needed.
[2019-05-06] MEDS: 1/2 NORMAL SALINE 1,000 ML IV PRN (00:58)
[2019-05-06] MEDS: HYDROMORPHONE HCL INJ/PF 2 MG/ML AMPULE IV PRN ×5 (02:39→20:02)
[2019-05-06] MEDS: HEPARIN SOD (PORCINE) 5,000 UNIT/ML 1 ML VIAL SUBCUT SCH ×3 (05:46→21:50)
[2019-05-06] MEDS: HYDRALAZINE HCL 50 MG TABLET PO SCH ×3 (05:48→21:57)
[2019-05-06] MEDS: SODIUM BICARBONATE 650 MG TABLET PO SCH ×3 (05:48→22:01)
[2019-05-06] MEDS: LOPERAMIDE HCL 2 MG CAPSULE PO PRN ×2 (05:50→13:23)
[2019-05-06] MEDS: INSULIN LISPRO 100 UNIT/ML 3 ML VIAL SUBCUT SCH ×4 (08:36→21:49)
[2019-05-06] MEDS: AMLODIPINE BESYLATE 10 MG TABLET PO SCH (09:37)
[2019-05-06] MEDS: MAGNESIUM OXIDE 400 MG TABLET PO SCH (09:38)
[2019-05-06] MEDS: ALLOPURINOL 100 MG TABLET PO SCH (09:38)
[2019-05-06] MEDS: SITAGLIPTIN PHOSPHATE 50 MG TABLET PO SCH (09:38)
[2019-05-06] MEDS: GABAPENTIN 300 MG CAPSULE PO SCH ×2 (09:38→21:56)
[2019-05-06] MEDS: ERGOCALCIFEROL (VITAMIN D2) 50000 UNIT (1.25 MG) CAPSULE PO SCH (09:38)
[2019-05-06] MEDS: DIPHENOXYLATE HCL/ATROP SULF 2.5-0.025 MG TABLET PO SCH ×4 (09:38→21:56)
[2019-05-06] MEDS: CALCITRIOL 0.25 MCG CAPSULE PO SCH (09:38)
[2019-05-06] MEDS: COLCHICINE 0.6 MG TABLET PO SCH (09:39)
[2019-05-06] MEDS: CHOLESTYRAMINE/ASPARTAME 4 GM PACKET PO SCH ×3 (09:39→17:34)
--- NOTE | 2019-05-06 11:02 | PDOC PROGRESS REPORT ---
Subjective Progress Note for:: 05/06/19 Subjective:: Patient is currently doing fair Patient seen by the general surgery suggest to increase the Imodium Patient was taking the IV fluid at home to the PICC line in the past developed some complications went to the [facility] patients never had an IV fluid at home but came once a week but I think patients might need to go back to at least 3 times a week at home to prevent before the admissions in the hospital due to the dehydration's and renal failure Reason For Visit: RENAL FAILURE Physical Exam Vital Signs: Temp Pulse Resp BP Pulse Ox 98.7 F 84 18 113/68 92 05/06/19 07:35 05/06/19 07:35 05/06/19 07:35 05/06/19 07:35 05/06/19 07:35 Intake & Output 05/05/19 05/06/19 05/07/19 06:59 06:59 06:59 Intake Total 3629 3703 Output Total 2800 1500 Balance 829 2203 Weight 123.4 kg 123.9 kg General appearance: PRESENT: no acute distress, well-developed, well-nourished Head exam: PRESENT: atraumatic, normocephalic Eye exam: PRESENT: conjunctiva pink, EOMI, PERRLA. ABSENT: scleral icterus Ear exam: PRESENT: normal external ear exam Mouth exam: PRESENT: moist, tongue midline Neck exam: PRESENT: full ROM. ABSENT: carotid bruit, JVD, lymphadenopathy, thyromegaly Respiratory exam: PRESENT: clear to auscultation stephen Cardiovascular exam: PRESENT: RRR. ABSENT: diastolic murmur, rubs, systolic murmur Pulses: PRESENT: normal dorsalis pedis pul, +2 pedal pulses bilateral Vascular exam: PRESENT: normal capillary refill GI/Abdominal exam: PRESENT: normal bowel sounds, soft. ABSENT: distended, guarding, mass, organolmegaly, rebound, tenderness Rectal exam: PRESENT: deferred Neurological exam: PRESENT: alert, awake, oriented to person, oriented to place, oriented to time, oriented to situation, CN II-XII grossly intact. ABSENT: motor sensory deficit Psychiatric exam: PRESENT: appropriate affect, normal mood. ABSENT: homicidal ideation, suicidal ideation Skin exam: PRESENT: dry, intact, warm. ABSENT: cyanosis, rash Results Laboratory Results: 05/03/19 09:35 05/05/19 06:30 05/02/19 21:55 Vaginal Gram Stain - Final 05/02/19 21:55 Vaginal Vaginal Culture - Final Yeast, Not Grisel Albicans Normal Vaginal Graciela No Neisseria Gonorrhoeae No Group B Strep Recovered 04/16/19 12:45 Creatine Kinase 210 H Impressions: Hip/Pelvis X-Ray 04/16/19 11:52 IMPRESSION: NEGATIVE STUDY OF THE RIGHT HIP. NO RADIOGRAPHIC EVIDENCE OF ACUTE INJURY. Gallstones. Abdomen/Pelvis CT 04/16/19 14:48 IMPRESSION: 1. Status post colectomy with a right hemiabdomen ileostomy. 2. Mildly distended urinary bladder. 3. Cholelithiasis. Hip X-Ray 04/18/19 00:00 IMPRESSION: NEGATIVE STUDY OF THE RIGHT AND LEFT HIPS AND PELVIS. NO RADIOGRAPHIC EVIDENCE OF ACUTE INJURY. Upper GI and Small Bowel X-Ray 04/20/19 00:00 IMPRESSION: NORMAL LIMITED SINGLE CONTRAST SWALLOW / UPPER GI SERIES / SMALL BOWEL SERIES. Assessment & Plan - Diagnosis (1) Acute kidney injury Is this a current diagnosis for this admission?: Yes Plan: Reduce IV fluid due to the high output of ileostomy (2) Chronic kidney disease, stage 3 Is this a current diagnosis for this admission?: Yes Plan: We will continues to IV fluid (3) Coronary artery disease Qualifiers: Coronary Disease-Associated Artery/Lesion type: unspecified vessel or lesion type Is this a current diagnosis for this admission?: Yes Plan: Currently all stable (4) Dehydration Is this a current diagnosis for this admission?: Yes Plan: Due to the high output ileostomy (5) Diabetes mellitus Qualifiers: Diabetes mellitus type: type 2 Chronic kidney disease stage: stage 3 (moderate) Is this a current diagnosis for this admission?: Yes Plan: Continues to sliding scale (6) High output ileostomy Is this a current diagnosis for this admission?: Yes Plan: Increase to Imodium per surgery 4 mg (7) Ischemic cardiomyopathy Is this a current diagnosis for this admission?: Yes (8) Lumbar radicular syndrome Is this a current diagnosis for this admission?: Yes (9) Morbid obesity Is this a current diagnosis for this admission?: Yes (10) Urinary tract infection Qualifiers: Urinary tract infection type: site unspecified Is this a current diagnosis for this admission?: Yes - Time Time Spent with patient: 15-24 minutes Medications reviewed and adjusted accordingly: Yes Anticipated discharge: Home Within: Other - Plan Summary Plan Summary: We will recheck the patient's CBC and Chem-7 in the morning
[2019-05-06] MEDS: FAMOTIDINE 20 MG TABLET PO SCH (21:57)
[2019-05-06] MEDS: ATORVASTATIN CALCIUM 10 MG TABLET PO SCH (21:57)
[2019-05-06] MEDS: METOPROLOL TARTRATE 100 MG TABLET PO SCH (21:57)
[2019-05-06] MEDS: MICONAZOLE NITRATE 2% VAGINAL CREAM 45 GM TUBE VG SCH (21:58)
[2019-05-07] MEDS: HYDROMORPHONE HCL INJ/PF 2 MG/ML AMPULE IV PRN ×6 (00:24→23:13)
[2019-05-07] MEDS: SODIUM BICARBONATE 650 MG TABLET PO SCH ×3 (05:09→23:06)
[2019-05-07] MEDS: HYDRALAZINE HCL 50 MG TABLET PO SCH ×3 (05:09→23:05)
[2019-05-07] MEDS: HEPARIN SOD (PORCINE) 5,000 UNIT/ML 1 ML VIAL SUBCUT SCH ×3 (06:02→22:55)
[2019-05-07 07:02] LABS: ABSOLUTE EOSINOPHILS # (AUTO) 0.3 10^3/uL (0.0-0.6); ABSOLUTE LYMPHOCYTES (AUTO) 1.3 10^3/uL (0.5-4.7); ABSOLUTE MONOCYTES (AUTO) 0.6 10^3/uL (0.1-1.4); ABSOLUTE NEUT (AUTO) 2.5 10^3/uL (1.7-8.2); BASOPHILS % (AUTO) 0.4 % (0-2); EOSINOPHILS % (AUTO) 7.2 % (0-6); HEMOGLOBIN 11.1 g/dL (12.0-15.5); LYMPHOCYTES % (AUTO) 27.7 % (13-45); MEAN CORPUSCULAR HEMOGLOBIN 30.5 pg (27.0-33.4); MEAN CORPUSCULAR HGB CONC 32.7 g/dL (32.0-36.0); MEAN CORPUSCULAR VOLUME 93 fl (80-97); MONOCYTES % (AUTO) 12.4 % (3-13); PLATELET COUNT 200 10^3/uL (150-450); RED BLOOD COUNT 3.64 10^6/uL (3.72-5.28); RED CELL DISTRIBUTION WIDTH 17.3 % (11.5-14.0); SEGMENTED NEUTROPHILS % (AUTO) 52.3 % (42-78); TOTAL CELLS COUNTED % (AUTO) 100 %; WHITE BLOOD COUNT 4.9 10^3/uL (4.0-10.5)
[2019-05-07 07:17] LABS: ANION GAP 7 (5-19); BLOOD UREA NITROGEN 13 mg/dL (7-20); CARBON DIOXIDE 28 mmol/L (22-30); CHLORIDE 104 mmol/L (98-107); GLUCOSE 78 mg/dL (75-110); POTASSIUM 4.3 mmol/L (3.6-5.0)
[2019-05-07] MEDS: INSULIN LISPRO 100 UNIT/ML 3 ML VIAL SUBCUT SCH ×4 (07:27→22:13)
[2019-05-07] MEDS: LOPERAMIDE HCL 2 MG CAPSULE PO PRN ×2 (09:48→14:11)
[2019-05-07] MEDS: ALLOPURINOL 100 MG TABLET PO SCH (09:49)
[2019-05-07] MEDS: AMLODIPINE BESYLATE 10 MG TABLET PO SCH (09:49)
[2019-05-07] MEDS: GABAPENTIN 300 MG CAPSULE PO SCH ×2 (09:49→23:05)
[2019-05-07] MEDS: COLCHICINE 0.6 MG TABLET PO SCH (09:49)
[2019-05-07] MEDS: SITAGLIPTIN PHOSPHATE 50 MG TABLET PO SCH (09:49)
[2019-05-07] MEDS: CALCITRIOL 0.25 MCG CAPSULE PO SCH (09:49)
[2019-05-07] MEDS: MAGNESIUM OXIDE 400 MG TABLET PO SCH (09:49)
[2019-05-07] MEDS: CHOLESTYRAMINE/ASPARTAME 4 GM PACKET PO SCH ×3 (09:49→17:15)
[2019-05-07] MEDS: DIPHENOXYLATE HCL/ATROP SULF 2.5-0.025 MG TABLET PO SCH ×4 (09:49→23:05)
--- NOTE | 2019-05-07 10:56 | PDOC PROGRESS REPORT ---
Subjective Progress Note for:: 05/07/19 Subjective:: Patient is currently doing well After increasing the 4 mg Imodium's patient's ileostomy output is slow down No chest pain no short of breath Reason For Visit: RENAL FAILURE Physical Exam Vital Signs: Temp Pulse Resp BP Pulse Ox 98.4 F 78 17 138/85 H 94 05/07/19 07:43 05/07/19 07:43 05/07/19 07:43 05/07/19 07:43 05/07/19 07:43 Intake & Output 05/06/19 05/07/19 05/08/19 06:59 06:59 06:59 Intake Total 3703 1000 Output Total 1500 1400 Balance 2203 -400 Weight 123.9 kg 121.7 kg General appearance: PRESENT: no acute distress, well-developed, well-nourished Head exam: PRESENT: atraumatic, normocephalic Eye exam: PRESENT: conjunctiva pink, EOMI, PERRLA. ABSENT: scleral icterus Ear exam: PRESENT: normal external ear exam Mouth exam: PRESENT: moist, tongue midline Neck exam: PRESENT: full ROM. ABSENT: carotid bruit, JVD, lymphadenopathy, thyromegaly Respiratory exam: PRESENT: clear to auscultation stephen Cardiovascular exam: PRESENT: RRR. ABSENT: diastolic murmur, rubs, systolic murmur Pulses: PRESENT: normal dorsalis pedis pul, +2 pedal pulses bilateral Vascular exam: PRESENT: normal capillary refill GI/Abdominal exam: PRESENT: normal bowel sounds, soft. ABSENT: distended, guarding, mass, organolmegaly, rebound, tenderness Rectal exam: PRESENT: deferred Extremities exam: ABSENT: pedal edema Neurological exam: PRESENT: alert, awake, oriented to person, oriented to place, oriented to time, oriented to situation, CN II-XII grossly intact. ABSENT: motor sensory deficit Psychiatric exam: PRESENT: appropriate affect, normal mood. ABSENT: homicidal ideation, suicidal ideation Skin exam: PRESENT: dry, intact, warm. ABSENT: cyanosis, rash Results Laboratory Results: 05/07/19 06:20 05/07/19 06:20 05/07/19 05/07/19 06:20 06:20 WBC 4.9 RBC 3.64 L Hgb 11.1 L Hct 34.0 L MCV 93 MCH 30.5 MCHC 32.7 RDW 17.3 H Plt Count 200 Seg Neutrophils % 52.3 Sodium 138.6 Potassium 4.3 Chloride 104 Carbon Dioxide 28 Anion Gap 7 BUN 13 Creatinine 1.69 H Est GFR ( Amer) 37 L Glucose 78 Calcium 9.0 04/16/19 12:45 Creatine Kinase 210 H Impressions: Hip/Pelvis X-Ray 04/16/19 11:52 IMPRESSION: NEGATIVE STUDY OF THE RIGHT HIP. NO RADIOGRAPHIC EVIDENCE OF ACUTE INJURY. Gallstones. Abdomen/Pelvis CT 04/16/19 14:48 IMPRESSION: 1. Status post colectomy with a right hemiabdomen ileostomy. 2. Mildly distended urinary bladder. 3. Cholelithiasis. Hip X-Ray 04/18/19 00:00 IMPRESSION: NEGATIVE STUDY OF THE RIGHT AND LEFT HIPS AND PELVIS. NO RADIOGRAPHIC EVIDENCE OF ACUTE INJURY. Upper GI and Small Bowel X-Ray 04/20/19 00:00 IMPRESSION: NORMAL LIMITED SINGLE CONTRAST SWALLOW / UPPER GI SERIES / SMALL BOWEL SERIES. Assessment & Plan - Diagnosis (1) Acute kidney injury Is this a current diagnosis for this admission?: Yes Plan: Reduce IV fluid due to the high output of ileostomy (2) Chronic kidney disease, stage 3 Is this a current diagnosis for this admission?: Yes Plan: We will continues to IV fluid (3) Coronary artery disease Qualifiers: Coronary Disease-Associated Artery/Lesion type: unspecified vessel or lesion type Is this a current diagnosis for this admission?: Yes Plan: Currently all stable (4) Dehydration Is this a current diagnosis for this admission?: Yes Plan: Due to the high output ileostomy (5) Diabetes mellitus Qualifiers: Diabetes mellitus type: type 2 Chronic kidney disease stage: stage 3 (moderate) Is this a current diagnosis for this admission?: Yes Plan: Continues to sliding scale (6) High output ileostomy Is this a current diagnosis for this admission?: Yes Plan: Continues to Imodium 4 mg p.o. as per surgery currently working (7) Ischemic cardiomyopathy Is this a current diagnosis for this admission?: Yes (8) Lumbar radicular syndrome Is this a current diagnosis for this admission?: Yes Plan: We will get the physical therapy evaluations (9) Morbid obesity Is this a current diagnosis for this admission?: Yes (10) Urinary tract infection Qualifiers: Urinary tract infection type: site unspecified Is this a current diagnosis for this admission?: Yes - Time Time Spent with patient: 15-24 minutes Medications reviewed and adjusted accordingly: Yes Anticipated discharge: Home Within: Other - Plan Summary Plan Summary: Continues to current medications so no other nursing concern
[2019-05-07] MEDS: ATORVASTATIN CALCIUM 10 MG TABLET PO SCH (23:05)
[2019-05-07] MEDS: METOPROLOL TARTRATE 100 MG TABLET PO SCH (23:05)
[2019-05-07] MEDS: MICONAZOLE NITRATE 2% VAGINAL CREAM 45 GM TUBE VG SCH (23:06)
[2019-05-07] MEDS: FAMOTIDINE 20 MG TABLET PO SCH (23:06)
[2019-05-08] MEDS: HYDROMORPHONE HCL INJ/PF 2 MG/ML AMPULE IV PRN ×5 (03:20→20:09)
[2019-05-08] MEDS: HEPARIN SOD (PORCINE) 5,000 UNIT/ML 1 ML VIAL SUBCUT SCH ×3 (05:07→21:14)
[2019-05-08] MEDS: SODIUM BICARBONATE 650 MG TABLET PO SCH ×3 (05:18→22:16)
[2019-05-08] MEDS: HYDRALAZINE HCL 50 MG TABLET PO SCH ×3 (05:18→22:16)
[2019-05-08 06:18] LABS: ANION GAP 8 (5-19); BLOOD UREA NITROGEN 12 mg/dL (7-20); CALCIUM 9.2 mg/dL (8.4-10.2); CARBON DIOXIDE 28 mmol/L (22-30); CHLORIDE 104 mmol/L (98-107); GLUCOSE 84 mg/dL (75-110); POTASSIUM 4.4 mmol/L (3.6-5.0)
[2019-05-08] MEDS: 1/2 NORMAL SALINE 1,000 ML IV PRN (06:54)
[2019-05-08] MEDS: LOPERAMIDE HCL 2 MG CAPSULE PO PRN ×2 (07:43→17:20)
[2019-05-08] MEDS: INSULIN LISPRO 100 UNIT/ML 3 ML VIAL SUBCUT SCH ×4 (09:06→22:05)
[2019-05-08] MEDS: CHOLESTYRAMINE/ASPARTAME 4 GM PACKET PO SCH ×3 (09:17→17:20)
[2019-05-08] MEDS: COLCHICINE 0.6 MG TABLET PO SCH (09:17)
[2019-05-08] MEDS: CALCITRIOL 0.25 MCG CAPSULE PO SCH (09:17)
[2019-05-08] MEDS: SITAGLIPTIN PHOSPHATE 50 MG TABLET PO SCH (09:17)
[2019-05-08] MEDS: DIPHENOXYLATE HCL/ATROP SULF 2.5-0.025 MG TABLET PO SCH ×4 (09:17→22:16)
[2019-05-08] MEDS: AMLODIPINE BESYLATE 10 MG TABLET PO SCH (09:18)
[2019-05-08] MEDS: GABAPENTIN 300 MG CAPSULE PO SCH ×2 (09:18→22:15)
[2019-05-08] MEDS: MAGNESIUM OXIDE 400 MG TABLET PO SCH (09:18)
[2019-05-08] MEDS: ALLOPURINOL 100 MG TABLET PO SCH (09:18)
--- NOTE | 2019-05-08 10:53 | PDOC PROGRESS REPORT ---
Subjective Progress Note for:: 05/08/19 Subjective:: Patient is currently doing well After increasing the 4 mg Imodium's patient's ileostomy output is slow down No chest pain no short of breath Reason For Visit: RENAL FAILURE Physical Exam Vital Signs: Temp Pulse Resp BP Pulse Ox 98.5 F 73 16 135/68 H 96 05/08/19 07:37 05/08/19 07:37 05/08/19 07:37 05/08/19 07:37 05/08/19 07:37 Intake & Output 05/07/19 05/08/19 05/09/19 06:59 06:59 06:59 Intake Total 1000 957 Output Total 1400 1800 Balance -400 -843 Weight 121.7 kg 121.6 kg General appearance: PRESENT: no acute distress, well-developed, well-nourished Head exam: PRESENT: atraumatic, normocephalic Eye exam: PRESENT: conjunctiva pink, EOMI, PERRLA. ABSENT: scleral icterus Ear exam: PRESENT: normal external ear exam Mouth exam: PRESENT: moist, tongue midline Neck exam: PRESENT: full ROM. ABSENT: carotid bruit, JVD, lymphadenopathy, thyromegaly Respiratory exam: PRESENT: clear to auscultation stephen Cardiovascular exam: PRESENT: RRR. ABSENT: diastolic murmur, rubs, systolic murmur Pulses: PRESENT: normal dorsalis pedis pul, +2 pedal pulses bilateral Vascular exam: PRESENT: normal capillary refill GI/Abdominal exam: PRESENT: normal bowel sounds, soft. ABSENT: distended, guarding, mass, organolmegaly, rebound, tenderness Rectal exam: PRESENT: deferred Neurological exam: PRESENT: alert, awake, oriented to person, oriented to place, oriented to time, oriented to situation, CN II-XII grossly intact. ABSENT: motor sensory deficit Psychiatric exam: PRESENT: appropriate affect, normal mood. ABSENT: homicidal ideation, suicidal ideation Skin exam: PRESENT: dry, intact, warm. ABSENT: cyanosis, rash Results Laboratory Results: 05/07/19 06:20 05/08/19 05:30 05/08/19 05:30 Sodium 140.0 Potassium 4.4 Chloride 104 Carbon Dioxide 28 Anion Gap 8 BUN 12 Creatinine 1.57 H Est GFR ( Amer) 40 L Glucose 84 Calcium 9.2 04/16/19 12:45 Creatine Kinase 210 H Impressions: Hip/Pelvis X-Ray 04/16/19 11:52 IMPRESSION: NEGATIVE STUDY OF THE RIGHT HIP. NO RADIOGRAPHIC EVIDENCE OF ACUTE INJURY. Gallstones. Abdomen/Pelvis CT 04/16/19 14:48 IMPRESSION: 1. Status post colectomy with a right hemiabdomen ileostomy. 2. Mildly distended urinary bladder. 3. Cholelithiasis. Hip X-Ray 04/18/19 00:00 IMPRESSION: NEGATIVE STUDY OF THE RIGHT AND LEFT HIPS AND PELVIS. NO RADIOGRAPHIC EVIDENCE OF ACUTE INJURY. Upper GI and Small Bowel X-Ray 04/20/19 00:00 IMPRESSION: NORMAL LIMITED SINGLE CONTRAST SWALLOW / UPPER GI SERIES / SMALL BOWEL SERIES. Assessment & Plan - Diagnosis (1) Acute kidney injury Is this a current diagnosis for this admission?: Yes Plan: Reduce IV fluid due to the high output of ileostomy (2) Chronic kidney disease, stage 3 Is this a current diagnosis for this admission?: Yes Plan: We will continues to IV fluid (3) Coronary artery disease Qualifiers: Coronary Disease-Associated Artery/Lesion type: unspecified vessel or lesion type Is this a current diagnosis for this admission?: Yes Plan: Currently all stable (4) Dehydration Is this a current diagnosis for this admission?: Yes Plan: Due to the high output ileostomy (5) Diabetes mellitus Qualifiers: Diabetes mellitus type: type 2 Chronic kidney disease stage: stage 3 (moderate) Is this a current diagnosis for this admission?: Yes Plan: Continues to sliding scale (6) High output ileostomy Is this a current diagnosis for this admission?: Yes Plan: Continues to Imodium 4 mg p.o. as per surgery currently working (7) Ischemic cardiomyopathy Is this a current diagnosis for this admission?: Yes (8) Lumbar radicular syndrome Is this a current diagnosis for this admission?: Yes Plan: We will get the physical therapy evaluations (9) Morbid obesity Is this a current diagnosis for this admission?: Yes (10) Urinary tract infection Qualifiers: Urinary tract infection type: site unspecified Is this a current diagnosis for this admission?: Yes - Time Time Spent with patient: 15-24 minutes Medications reviewed and adjusted accordingly: Yes Anticipated discharge: Other Within: Other - Plan Summary Plan Summary: Continues to current medications
[2019-05-08] MEDS: METOPROLOL TARTRATE 100 MG TABLET PO SCH (22:15)
[2019-05-08] MEDS: ATORVASTATIN CALCIUM 10 MG TABLET PO SCH (22:16)
[2019-05-08] MEDS: FAMOTIDINE 20 MG TABLET PO SCH (22:16)
[2019-05-08] MEDS: MICONAZOLE NITRATE 2% VAGINAL CREAM 45 GM TUBE VG SCH (22:25)
[2019-05-09] MEDS: HYDROMORPHONE HCL INJ/PF 2 MG/ML AMPULE IV PRN ×5 (00:09→17:27)
[2019-05-09] MEDS: HEPARIN SOD (PORCINE) 5,000 UNIT/ML 1 ML VIAL SUBCUT SCH ×3 (05:06→21:13)
[2019-05-09 05:34] LABS: ANION GAP 6 (5-19); BLOOD UREA NITROGEN 12 mg/dL (7-20); CALCIUM 8.7 mg/dL (8.4-10.2); CARBON DIOXIDE 28 mmol/L (22-30); CHLORIDE 106 mmol/L (98-107); GLUCOSE 79 mg/dL (75-110); POTASSIUM 4.1 mmol/L (3.6-5.0)
[2019-05-09] MEDS: SODIUM BICARBONATE 650 MG TABLET PO SCH ×3 (05:38→21:16)
[2019-05-09] MEDS: HYDRALAZINE HCL 50 MG TABLET PO SCH ×3 (05:38→21:17)
[2019-05-09] MEDS: INSULIN LISPRO 100 UNIT/ML 3 ML VIAL SUBCUT SCH ×4 (07:25→21:18)
[2019-05-09] MEDS: 1/2 NORMAL SALINE 1,000 ML IV PRN ×2 (07:48→21:15)
[2019-05-09] MEDS: DIPHENOXYLATE HCL/ATROP SULF 2.5-0.025 MG TABLET PO SCH ×3 (09:21→17:29)
[2019-05-09] MEDS: CALCITRIOL 0.25 MCG CAPSULE PO SCH (09:21)
[2019-05-09] MEDS: ALLOPURINOL 100 MG TABLET PO SCH (09:21)
[2019-05-09] MEDS: COLCHICINE 0.6 MG TABLET PO SCH (09:21)
[2019-05-09] MEDS: GABAPENTIN 300 MG CAPSULE PO SCH ×2 (09:21→21:17)
[2019-05-09] MEDS: SITAGLIPTIN PHOSPHATE 50 MG TABLET PO SCH (09:21)
[2019-05-09] MEDS: AMLODIPINE BESYLATE 10 MG TABLET PO SCH (09:21)
[2019-05-09] MEDS: CHOLESTYRAMINE/ASPARTAME 4 GM PACKET PO SCH ×3 (09:22→17:29)
[2019-05-09] MEDS: MAGNESIUM OXIDE 400 MG TABLET PO SCH (09:22)
[2019-05-09] MEDS: LOPERAMIDE HCL 2 MG CAPSULE PO PRN ×2 (09:24→17:31)
--- NOTE | 2019-05-09 18:14 | PDOC CONSULTATION ---
Consultation Consult Date: 05/09/19 Provider Consulted: VAISHALI BAUTISTA History of Present Illness Admission Date/PCP: 04/16/19 15:17 LISA MATA MD History of Present Illness: RANDEE VELÁSQUEZ is a 63 year old female Patient who was admitted on 04/16/2019 with increased ileostomy output and renal failure. She has had an ileostomy since 2006 and in the last 4 years she has had to be admitted many times with dehydration, renal failure and high ileostomy output. She has used Imodium, Lomotil, and Questran over the years with varying response. I started her on Questran last week and she thinks stools might be a little better. She denies abdominal pain. Her creatinine was 3.36 on the day of admission and it is now down to 1.47. Currently she is on Lomotil 1 tablet 4 times a day and Questran 4 g 3 times a day. Past Medical History Cardiac Medical History: Reports: Atrial Fibrillation, Coronary Artery Disease, DVT, Myocardial Infarction - 2002, Hyperlipidema, Hypertension Pulmonary Medical History: Reports: Pneumonia - 2006 Neurological Medical History: Endocrine Medical History: Reports: Diabetes Mellitus Type 1, Diabetes Mellitus Type 2 Renal/ Medical History: Reports: Chronic Kidney Disease Malignancy Medical History: Reports: Renal (Kidney) Cancer GI Medical History: Reports: Gastroesophageal Reflux Disease, Hiatal Hernia Musculoskeltal Medical History: Reports: Arthritis - Back, Knees Psychiatric Medical History: Denies: Depression Hematology: Reports: Anemia Past Surgical History Past Surgical History: Reports: Cardiac Catheterization, Colostomy, Coronary Stent, Hysterectomy, Ileostomy, Orthopedic Surgery - L knee replacement, right ankle pin, Other - Tracheostomy 10 yrs ago Social History Lives with: Alone Smoking Status: Never Smoker Frequency of Alcohol Use: None Hx Recreational Drug Use: No Drugs: None Hx Prescription Drug Abuse: No Family History Family History: Reviewed & Not Pertinent, Hypertension Parental Family History Reviewed: No Children Family History Reviewed: NA Sibling(s) Family History Reviewed.: NA Medication/Allergy Home Medications: Allopurinol [Zyloprim 100 mg Tablet] 100 mg PO DAILY 01/31/19 Betamet Diprop/Prop Gly [Betamethasone Dp Aug 0.05% Cream] 1 applic TP BID 01/31/19 Calcitriol [Rocaltrol 0.5 mcg Capsule] 0.5 mcg PO DAILY 01/31/19 Colchicine [Colcrys 0.6 mg Tablet] 0.6 mg PO DAILY 01/31/19 Dapagliflozin Propanediol [Farxiga] 5 mg PO DAILY 01/31/19 Ergocalciferol (Vitamin D2) [Drisdol 50,000 unit (1.25MG) Capsule] 50,000 unit PO SA@1000 01/31/19 Exenatide Microspheres [Bydureon Pen] 2 mg SQ KYLE@1000 01/31/19 Gabapentin [Neurontin] 600 mg PO QID 01/31/19 Hydralazine HCl [Apresoline 50 mg Tablet] 50 mg PO TID 01/31/19 Insulin Aspart [Novolog Flexpen] 12 unit SQ TIDP PRN 01/31/19 Insulin Glargine,Hum.rec.anlog [Basaglar Kwikpen U-100] 60 unit SQ BIDP PRN 01/31/19 Metoprolol Succinate [Toprol Xl] 200 mg PO DAILY 01/31/19 Nystatin [Mycostatin Cream 15 gm] 1 applic TP BID 01/31/19 Oxycodone HCl [Oxy-Ir 5 mg Tablet] 10 mg PO Q8HP PRN 01/31/19 Oxycodone Myristate [Xtampza ER] 18 mg PO Q12 01/31/19 Pravastatin Sodium [Pravachol] 40 mg PO QHS 01/31/19 Sitagliptin Phosphate [Januvia 50 mg Tablet] 50 mg PO DAILY 01/31/19 Sodium Bicarbonate [Sodium Bicarbonate 650 mg Tablet] 1,300 mg PO TID 01/31/19 Albuterol Sulfate [Albuterol Sulfate Hfa] 2 puff IH Q4HP PRN 02/20/19 Clobetasol Propionate [Temovate 0.05% Cream 15 gm] 1 applic TP BID 02/20/19 Loperamide HCl [Imodium 2 mg Capsule] 2 mg PO ASDIR PRN 02/20/19 Magnesium Oxide [Mag-Ox 400 mg Tablet] 400 mg PO DAILY 02/20/19 Aspirin [Ecotrin 81 mg EC Tablet] 81 mg PO DAILY 04/17/19 Naloxone HCl [Evzio] 2 mg IJ ASDIR PRN 04/17/19 Allergies/Adverse Reactions: ciprofloxacin [From Cipro] Allergy (Severe, Verified 11/16/18 14:04) Hallucinations morphine [Morphine] Allergy (Unknown, Verified 11/16/18 14:04) Review of Systems All systems: reviewed and no additional remarkable complaints except as stated Physical Exam Vital Signs: Temp Pulse Resp BP Pulse Ox 98.4 F 72 16 131/68 H 96 05/09/19 15:43 05/09/19 15:43 05/09/19 15:43 05/09/19 15:43 05/09/19 15:43 Intake & Output 05/08/19 05/09/19 05/10/19 06:59 06:59 06:59 Intake Total 957 1795 240 Output Total 1800 1425 Balance -843 370 240 Weight 121.6 kg 122.1 kg Exam: General: Patient is alert and obese HEENT: There is no pallor or jaundice. PERRLA. Oropharynx normal Respiratory: No chest deformity. No respiratory distress. Chest wall palpitation was unremarkable. Breath sounds were normal Cardiovascular: Heart sounds 1 and 2 normal with no murmurs. Abdominal: Not distended. Soft and nontender. Difficult to feel for masses. She has an ileostomy Extremities: No edema Neurological: Alert and oriented x4. Grossly nonfocal. Normal speech Skin: No significant rash Psychological: Normal affect Results Laboratory Results: 05/07/19 06:20 05/09/19 04:45 05/09/19 04:45 Sodium 139.9 Potassium 4.1 Chloride 106 Carbon Dioxide 28 Anion Gap 6 BUN 12 Creatinine 1.47 H Est GFR ( Amer) 44 L Glucose 79 Calcium 8.7 04/16/19 12:45 Creatine Kinase 210 H Impressions: Hip/Pelvis X-Ray 04/16/19 11:52 IMPRESSION: NEGATIVE STUDY OF THE RIGHT HIP. NO RADIOGRAPHIC EVIDENCE OF ACUTE INJURY. Gallstones. Abdomen/Pelvis CT 04/16/19 14:48 IMPRESSION: 1. Status post colectomy with a right hemiabdomen ileostomy. 2. Mildly distended urinary bladder. 3. Cholelithiasis. Hip X-Ray 04/18/19 00:00 IMPRESSION: NEGATIVE STUDY OF THE RIGHT AND LEFT HIPS AND PELVIS. NO RADIOGRAPHIC EVIDENCE OF ACUTE INJURY. Upper GI and Small Bowel X-Ray 04/20/19 00:00 IMPRESSION: NORMAL LIMITED SINGLE CONTRAST SWALLOW / UPPER GI SERIES / SMALL BOWEL SERIES. Assessment & Plan - Diagnosis (1) High output ileostomy Is this a current diagnosis for this admission?: Yes Plan: She has recurrent high ileostomy outputs that has been going on for many years. She has had some relief but not consistent with Imodium and at times Questran. She uses 4-6 Imodium every day at home. We can try her on codeine sulfate starting with 15 mg twice a day and reducing the Lomotil. She should continue with the Questran for now. (2) Renal insufficiency Is this a current diagnosis for this admission?: Yes (3) Acute kidney injury Is this a current diagnosis for this admission?: Yes
[2019-05-09] MEDS: FAMOTIDINE 20 MG TABLET PO SCH (21:16)
[2019-05-09] MEDS: CODEINE SULF 15 MG TABLET PO SCH (21:17)
[2019-05-09] MEDS: METOPROLOL TARTRATE 100 MG TABLET PO SCH (21:17)
[2019-05-09] MEDS: ATORVASTATIN CALCIUM 10 MG TABLET PO SCH (21:17)
--- NOTE | 2019-05-09 22:01 | PDOC PROGRESS REPORT ---
Subjective Progress Note for:: 05/09/19 Subjective:: She was seen by the bedside, she was seen by GI ,kidney function is improved hopefully DC home tomorrow Reason For Visit: RENAL FAILURE Physical Exam Vital Signs: Temp Pulse Resp BP Pulse Ox 98.9 F 72 16 141/81 H 99 05/09/19 20:32 05/09/19 20:32 05/09/19 20:32 05/09/19 20:32 05/09/19 20:32 Intake & Output 05/08/19 05/09/19 05/10/19 06:59 06:59 06:59 Intake Total 957 1795 2550 Output Total 1800 1425 Balance -675 194 5916 Weight 121.6 kg 122.1 kg General appearance: PRESENT: no acute distress Eye exam: PRESENT: PERRLA Respiratory exam: PRESENT: clear to auscultation stephen Cardiovascular exam: PRESENT: +S1, +S2 GI/Abdominal exam: PRESENT: soft Neurological exam: PRESENT: alert, CN II-XII grossly intact Results Laboratory Results: 05/07/19 06:20 05/09/19 04:45 05/09/19 04:45 Sodium 139.9 Potassium 4.1 Chloride 106 Carbon Dioxide 28 Anion Gap 6 BUN 12 Creatinine 1.47 H Est GFR ( Amer) 44 L Glucose 79 Calcium 8.7 04/16/19 12:45 Creatine Kinase 210 H Impressions: Hip/Pelvis X-Ray 04/16/19 11:52 IMPRESSION: NEGATIVE STUDY OF THE RIGHT HIP. NO RADIOGRAPHIC EVIDENCE OF ACUTE INJURY. Gallstones. Abdomen/Pelvis CT 04/16/19 14:48 IMPRESSION: 1. Status post colectomy with a right hemiabdomen ileostomy. 2. Mildly distended urinary bladder. 3. Cholelithiasis. Hip X-Ray 04/18/19 00:00 IMPRESSION: NEGATIVE STUDY OF THE RIGHT AND LEFT HIPS AND PELVIS. NO RADIOGR APHIC EVIDENCE OF ACUTE INJURY. Upper GI and Small Bowel X-Ray 04/20/19 00:00 IMPRESSION: NORMAL LIMITED SINGLE CONTRAST SWALLOW / UPPER GI SERIES / SMALL BOWEL SERIES. Assessment & Plan - Diagnosis (1) Acute kidney injury Is this a current diagnosis for this admission?: Yes (2) Urinary tract infection Qualifiers: Urinary tract infection type: acute cystitis Hematuria presence: without hematuria Qualified Code(s): N30.00 - Acute cystitis without hematuria Is this a current diagnosis for this admission?: Yes (3) High output ileostomy Is this a current diagnosis for this admission?: Yes (4) UTI due to Klebsiella species Is this a current diagnosis for this admission?: Yes (5) Epigastric pain Is this a current diagnosis for this admission?: Yes (6) Essential (primary) hypertension Is this a current diagnosis for this admission?: Yes
[2019-05-10] MEDS: ACETAMINOPHEN 325 MG TABLET PO PRN (00:57)
[2019-05-10 04:52] LABS: ABSOLUTE EOSINOPHILS # (AUTO) 0.3 10^3/uL (0.0-0.6); ABSOLUTE LYMPHOCYTES (AUTO) 1.1 10^3/uL (0.5-4.7); ABSOLUTE MONOCYTES (AUTO) 0.5 10^3/uL (0.1-1.4); ABSOLUTE NEUT (AUTO) 2.8 10^3/uL (1.7-8.2); BASOPHILS % (AUTO) 0.7 % (0-2); EOSINOPHILS % (AUTO) 5.8 % (0-6); HEMATOCRIT 33.8 % (36.0-47.0); HEMOGLOBIN 10.9 g/dL (12.0-15.5); LYMPHOCYTES % (AUTO) 23.2 % (13-45); MEAN CORPUSCULAR HEMOGLOBIN 30.2 pg (27.0-33.4); MEAN CORPUSCULAR HGB CONC 32.3 g/dL (32.0-36.0); MEAN CORPUSCULAR VOLUME 93 fl (80-97); MONOCYTES % (AUTO) 11.4 % (3-13); PLATELET COUNT 184 10^3/uL (150-450); RED BLOOD COUNT 3.62 10^6/uL (3.72-5.28); RED CELL DISTRIBUTION WIDTH 17.5 % (11.5-14.0); SEGMENTED NEUTROPHILS % (AUTO) 58.9 % (42-78); TOTAL CELLS COUNTED % (AUTO) 100 %; WHITE BLOOD COUNT 4.8 10^3/uL (4.0-10.5)
[2019-05-10 05:08] LABS: ANION GAP 9 (5-19); BLOOD UREA NITROGEN 11 mg/dL (7-20); CALCIUM 8.8 mg/dL (8.4-10.2); CARBON DIOXIDE 25 mmol/L (22-30); CHLORIDE 106 mmol/L (98-107); GLUCOSE 82 mg/dL (75-110); POTASSIUM 4.4 mmol/L (3.6-5.0)
[2019-05-10] MEDS: HEPARIN SOD (PORCINE) 5,000 UNIT/ML 1 ML VIAL SUBCUT SCH ×3 (05:10→21:56)
[2019-05-10] MEDS: SODIUM BICARBONATE 650 MG TABLET PO SCH ×3 (05:19→22:03)
[2019-05-10] MEDS: HYDRALAZINE HCL 50 MG TABLET PO SCH ×3 (05:19→22:02)
[2019-05-10] MEDS: INSULIN LISPRO 100 UNIT/ML 3 ML VIAL SUBCUT SCH ×4 (07:50→21:56)
[2019-05-10] MEDS: CHOLESTYRAMINE/ASPARTAME 4 GM PACKET PO SCH ×3 (09:07→17:35)
[2019-05-10] MEDS: AMLODIPINE BESYLATE 10 MG TABLET PO SCH (09:08)
[2019-05-10] MEDS: COLCHICINE 0.6 MG TABLET PO SCH (09:09)
[2019-05-10] MEDS: MAGNESIUM OXIDE 400 MG TABLET PO SCH (09:09)
[2019-05-10] MEDS: CALCITRIOL 0.25 MCG CAPSULE PO SCH (09:09)
[2019-05-10] MEDS: GABAPENTIN 300 MG CAPSULE PO SCH ×2 (09:09→22:03)
[2019-05-10] MEDS: ALLOPURINOL 100 MG TABLET PO SCH (09:09)
[2019-05-10] MEDS: DIPHENOXYLATE HCL/ATROP SULF 2.5-0.025 MG TABLET PO SCH ×2 (09:10→17:35)
[2019-05-10] MEDS: CODEINE SULF 15 MG TABLET PO SCH ×2 (09:10→22:03)
[2019-05-10] MEDS: SITAGLIPTIN PHOSPHATE 50 MG TABLET PO SCH (09:10)
[2019-05-10] MEDS: 1/2 NORMAL SALINE 1,000 ML IV PRN ×2 (09:15→22:02)
--- NOTE | 2019-05-10 18:13 | PDOC PROGRESS REPORT ---
Subjective Progress Note for:: 05/10/19 Subjective:: She was seen by the bedside, she was seen No new complaints Reason For Visit: RENAL FAILURE Physical Exam Vital Signs: Temp Pulse Resp BP Pulse Ox 98.3 F 78 16 135/81 H 100 05/10/19 12:00 05/10/19 14:00 05/10/19 12:00 05/10/19 12:00 05/10/19 12:00 Intake & Output 05/09/19 05/10/19 05/11/19 06:59 06:59 06:59 Intake Total 1795 2790 960 Output Total 1425 500 Balance 370 2290 960 Weight 122.1 kg 122.9 kg General appearance: PRESENT: no acute distress Eye exam: PRESENT: PERRLA Respiratory exam: PRESENT: clear to auscultation stephen Cardiovascular exam: PRESENT: +S1, +S2 GI/Abdominal exam: PRESENT: soft Results Laboratory Results: 05/10/19 04:36 05/10/19 04:36 05/10/19 05/10/19 04:36 04:36 WBC 4.8 RBC 3.62 L Hgb 10.9 L Hct 33.8 L MCV 93 MCH 30.2 MCHC 32.3 RDW 17.5 H Plt Count 184 Seg Neutrophils % 58.9 Sodium 139.5 Potassium 4.4 Chloride 106 Carbon Dioxide 25 Anion Gap 9 BUN 11 Creatinine 1.37 H Est GFR ( Amer) 47 L Glucose 82 Calcium 8.8 04/16/19 12:45 Creatine Kinase 210 H Impressions: Hip/Pelvis X-Ray 04/16/19 11:52 IMPRESSION: NEGATIVE STUDY OF THE RIGHT HIP. NO RADIOGRAPHIC EVIDENCE OF ACUTE INJURY. Gallstones. Abdomen/Pelvis CT 04/16/19 14:48 IMPRESSION: 1. Status post colectomy with a right hemiabdomen ileostomy. 2. Mildly distended urinary bladder. 3. Cholelithiasis. Hip X-Ray 04/18/19 00:00 IMPRESSION: NEGATIVE STUDY OF THE RIGHT AND LEFT HIPS AND PELVIS. NO RADIOGRAPHIC EVIDENCE OF ACUTE INJURY. Upper GI and Small Bowel X-Ray 04/20/19 00:00 IMPRESSION: NORMAL LIMITED SINGLE CONTRAST SWALLOW / UPPER GI SERIES / SMALL BOWEL SERIES. Assessment & Plan - Diagnosis (1) Acute kidney injury Is this a current diagnosis for this admission?: Yes (2) Urinary tract infection Qualifiers: Urinary tract infection type: acute cystitis Hematuria presence: without hematuria Qualified Code(s): N30.00 - Acute cystitis without hematuria Is this a current diagnosis for this admission?: Yes (3) High output ileostomy Is this a current diagnosis for this admission?: Yes (4) UTI due to Klebsiella species Is this a current diagnosis for this admission?: Yes (5) Epigastric pain Is this a current diagnosis for this admission?: Yes (6) Essential (primary) hypertension Is this a current diagnosis for this admission?: Yes
[2019-05-10] MEDS: FAMOTIDINE 20 MG TABLET PO SCH (22:03)
[2019-05-10] MEDS: ATORVASTATIN CALCIUM 10 MG TABLET PO SCH (22:03)
[2019-05-10] MEDS: METOPROLOL TARTRATE 100 MG TABLET PO SCH (22:03)
[2019-05-10] MEDS ORDERED: OXYCODONE HCL IR 5 MG TABLET PO PRN ×2 (22:20→23:26)
[2019-05-11] MEDS: HEPARIN SOD (PORCINE) 5,000 UNIT/ML 1 ML VIAL SUBCUT SCH ×3 (06:09→22:28)
[2019-05-11] MEDS: HYDRALAZINE HCL 50 MG TABLET PO SCH ×3 (06:13→22:26)
[2019-05-11] MEDS: SODIUM BICARBONATE 650 MG TABLET PO SCH ×3 (06:13→22:25)
[2019-05-11] MEDS: INSULIN LISPRO 100 UNIT/ML 3 ML VIAL SUBCUT SCH ×4 (08:21→22:28)
[2019-05-11] MEDS: AMLODIPINE BESYLATE 10 MG TABLET PO SCH (09:42)
[2019-05-11] MEDS: GABAPENTIN 300 MG CAPSULE PO SCH ×2 (09:42→22:24)
[2019-05-11] MEDS: DIPHENOXYLATE HCL/ATROP SULF 2.5-0.025 MG TABLET PO SCH ×2 (09:42→17:12)
[2019-05-11] MEDS: SITAGLIPTIN PHOSPHATE 50 MG TABLET PO SCH (09:44)
[2019-05-11] MEDS: ALLOPURINOL 100 MG TABLET PO SCH (09:44)
[2019-05-11] MEDS: CODEINE SULF 15 MG TABLET PO SCH ×2 (09:44→22:26)
[2019-05-11] MEDS: MAGNESIUM OXIDE 400 MG TABLET PO SCH (09:44)
[2019-05-11] MEDS: CHOLESTYRAMINE/ASPARTAME 4 GM PACKET PO SCH ×3 (09:45→17:12)
[2019-05-11] MEDS: COLCHICINE 0.6 MG TABLET PO SCH (09:45)
[2019-05-11] MEDS: CALCITRIOL 0.25 MCG CAPSULE PO SCH (09:45)
[2019-05-11] MEDS: 1/2 NORMAL SALINE 1,000 ML IV PRN ×2 (10:12→22:30)
[2019-05-11] MEDS: HYDROMORPHONE HCL INJ/PF 2 MG/ML AMPULE IV PRN ×2 (13:57→20:20)
--- NOTE | 2019-05-11 14:54 | PDOC PROGRESS REPORT ---
Subjective Progress Note for:: 05/11/19 Subjective:: Patient seen by the bedside, she was started on codeine by the GI doctor, she has not seen any significant difference since started on codeine, she continues to lose large-volume of fluid from the ostomy bag that has been the issue since admission, she has a very prolonged hospital stay, she will hopefully be discharged home the next 1 or 2 days once the inclement weather subside. Reason For Visit: RENAL FAILURE Physical Exam Vital Signs: Temp Pulse Resp BP Pulse Ox 98.4 F 86 15 131/74 H 97 05/11/19 11:31 05/11/19 14:00 05/11/19 11:31 05/11/19 11:31 05/11/19 11:31 Intake & Output 05/10/19 05/11/19 05/12/19 06:59 06:59 06:59 Intake Total 2790 4037 1709 Output Total 500 1000 600 Balance 2290 3037 1109 Weight 122.9 kg 124.1 kg General appearance: PRESENT: no acute distress Eye exam: PRESENT: PERRLA Respiratory exam: PRESENT: clear to auscultation stephen Cardiovascular exam: PRESENT: +S1, +S2 GI/Abdominal exam: PRESENT: soft Neurological exam: PRESENT: alert Results Laboratory Results: 05/10/19 04:36 05/10/19 04:36 04/16/19 12:45 Creatine Kinase 210 H Impressions: Hip/Pelvis X-Ray 04/16/19 11:52 IMPRESSION: NEGATIVE STUDY OF THE RIGHT HIP. NO RADIOGRAPHIC EVIDENCE OF ACUTE INJURY. Gallstones. Abdomen/Pelvis CT 04/16/19 14:48 IMPRESSION: 1. Status post colectomy with a right hemiabdomen ileostomy. 2. Mildly distended urinary bladder. 3. Cholelithiasis. Hip X-Ray 04/18/19 00:00 IMPRESSION: NEGATIVE STUDY OF THE RIGHT AND LEFT HIPS AND PELVIS. NO RADIOGRAPHIC EVIDENCE OF ACUTE INJURY. Upper GI and Small Bowel X-Ray 04/20/19 00:00 IMPRESSION: NORMAL LIMITED SINGLE CONTRAST SWALLOW / UPPER GI SERIES / SMALL BOWEL SERIES. Assessment & Plan - Diagnosis (1) Acute kidney injury Is this a current diagnosis for this admission?: Yes (2) Urinary tract infection Qualifiers: Urinary tract infection type: acute cystitis Hematuria presence: without hematuria Qualified Code(s): N30.00 - Acute cystitis without hematuria Is this a current diagnosis for this admission?: Yes (3) High output ileostomy Is this a current diagnosis for this admission?: Yes (4) UTI due to Klebsiella species Is this a current diagnosis for this admission?: Yes (5) Epigastric pain Is this a current diagnosis for this admission?: Yes (6) Essential (primary) hypertension Is this a current diagnosis for this admission?: Yes
[2019-05-11] MEDS: METOPROLOL TARTRATE 100 MG TABLET PO SCH (22:25)
[2019-05-11] MEDS: ATORVASTATIN CALCIUM 10 MG TABLET PO SCH (22:25)
[2019-05-11] MEDS: FAMOTIDINE 20 MG TABLET PO SCH (22:25)
[2019-05-12] MEDS: HYDROMORPHONE HCL INJ/PF 2 MG/ML AMPULE IV PRN ×4 (02:28→21:45)
[2019-05-12] MEDS: SODIUM BICARBONATE 650 MG TABLET PO SCH ×3 (05:14→21:51)
[2019-05-12] MEDS: HEPARIN SOD (PORCINE) 5,000 UNIT/ML 1 ML VIAL SUBCUT SCH ×3 (05:15→21:27)
[2019-05-12] MEDS: HYDRALAZINE HCL 50 MG TABLET PO SCH ×3 (05:15→21:43)
[2019-05-12] MEDS: INSULIN LISPRO 100 UNIT/ML 3 ML VIAL SUBCUT SCH ×4 (08:45→21:27)
[2019-05-12] MEDS: CHOLESTYRAMINE/ASPARTAME 4 GM PACKET PO SCH ×3 (09:12→17:03)
[2019-05-12] MEDS: CALCITRIOL 0.25 MCG CAPSULE PO SCH (09:12)
[2019-05-12] MEDS: GABAPENTIN 300 MG CAPSULE PO SCH ×2 (09:12→21:42)
[2019-05-12] MEDS: COLCHICINE 0.6 MG TABLET PO SCH (09:12)
[2019-05-12] MEDS: ALLOPURINOL 100 MG TABLET PO SCH (09:13)
[2019-05-12] MEDS: CODEINE SULF 15 MG TABLET PO SCH ×2 (09:14→21:43)
[2019-05-12] MEDS: DIPHENOXYLATE HCL/ATROP SULF 2.5-0.025 MG TABLET PO SCH ×2 (09:14→17:02)
[2019-05-12] MEDS: AMLODIPINE BESYLATE 10 MG TABLET PO SCH (09:14)
[2019-05-12] MEDS: MAGNESIUM OXIDE 400 MG TABLET PO SCH (09:14)
[2019-05-12] MEDS: SITAGLIPTIN PHOSPHATE 50 MG TABLET PO SCH (09:18)
[2019-05-12] MEDS: 1/2 NORMAL SALINE 1,000 ML IV PRN (11:59)
[2019-05-12 15:58] LABS: ALBUMIN 3.4 g/dL (3.5-5.0); ALKALINE PHOSPHATASE 64 U/L (38-126); ANION GAP 8 (5-19); ASPARTATE AMINO TRANSFERASE 67 U/L (14-36); BILIRUBIN,DIRECT 0.3 mg/dL (0.0-0.4); BILIRUBIN,TOTAL 0.4 mg/dL (0.2-1.3); BLOOD UREA NITROGEN 8 mg/dL (7-20); CALCIUM 8.7 mg/dL (8.4-10.2); CARBON DIOXIDE 26 mmol/L (22-30); CHLORIDE 103 mmol/L (98-107); GLUCOSE 175 mg/dL (75-110); POTASSIUM 4.4 mmol/L (3.6-5.0); TOTAL PROTEIN 6.7 g/dL (6.3-8.2)
--- NOTE | 2019-05-12 17:09 | PDOC DISCHARGE SUMMARY ---
General - Admit/Disc Date/PCP Admission Date/Primary Care Provider: 04/16/19 15:17 LISA MATA MD Discharge Date: 05/12/19 - Discharge Diagnosis (1) Acute kidney injury Is this a current diagnosis for this admission?: Yes (2) Urinary tract infection Is this a current diagnosis for this admission?: Yes (3) High output ileostomy Is this a current diagnosis for this admission?: Yes (4) UTI due to Klebsiella species Is this a current diagnosis for this admission?: Yes (5) Epigastric pain Is this a current diagnosis for this admission?: Yes (6) Essential (primary) hypertension Is this a current diagnosis for this admission?: Yes - Additional Information Discharge Activity: Activity As Tolerated Prescriptions: Cholestyramine/Aspartame [Questran Light 4 gm Packet] 4 gm PO TID #90 packet Calcitriol [Rocaltrol 0.25 mcg Capsule] 0.5 mcg PO DAILY #90 capsule Home Medications: Allopurinol [Zyloprim 100 mg Tablet] 100 mg PO DAILY 01/31/19 Betamet Diprop/Prop Gly [Betamethasone Dp Aug 0.05% Cream] 1 applic TP BID 01/31/19 Calcitriol [Rocaltrol 0.5 mcg Capsule] 0.5 mcg PO DAILY 01/31/19 Colchicine [Colcrys 0.6 mg Tablet] 0.6 mg PO DAILY 01/31/19 Dapagliflozin Propanediol [Farxiga] 5 mg PO DAILY 01/31/19 Ergocalciferol (Vitamin D2) [Drisdol 50,000 unit (1.25MG) Capsule] 50,000 unit PO SA@1000 01/31/19 Exenatide Microspheres [Bydureon Pen] 2 mg SQ KYLE@1000 01/31/19 Gabapentin [Neurontin] 600 mg PO QID 01/31/19 Hydralazine HCl [Apresoline 50 mg Tablet] 50 mg PO TID 01/31/19 Insulin Aspart [Novolog Flexpen] 12 unit SQ TIDP PRN 01/31/19 Insulin Glargine,Hum.rec.anlog [Basaglar Kwikpen U-100] 60 unit SQ BIDP PRN 01/31/19 Metoprolol Succinate [Toprol Xl] 200 mg PO DAILY 01/31/19 Nystatin [Mycostatin Cream 15 gm] 1 applic TP BID 01/31/19 Oxycodone HCl [Oxy-Ir 5 mg Tablet] 10 mg PO Q8HP PRN 01/31/19 Oxycodone Myristate [Xtampza ER] 18 mg PO Q12 01/31/19 Pravastatin Sodium [Pravachol] 40 mg PO QHS 01/31/19 Sitagliptin Phosphate [Januvia 50 mg Tablet] 50 mg PO DAILY 01/31/19 Sodium Bicarbonate [Sodium Bicarbonate 650 mg Tablet] 1,300 mg PO TID 01/31/19 Albuterol Sulfate [Albuterol Sulfate Hfa] 2 puff IH Q4HP PRN 02/20/19 Clobetasol Propionate [Temovate 0.05% Cream 15 gm] 1 applic TP BID 02/20/19 Loperamide HCl [Imodium 2 mg Capsule] 2 mg PO ASDIR PRN 02/20/19 Magnesium Oxide [Mag-Ox 400 mg Tablet] 400 mg PO DAILY 02/20/19 Aspirin [Ecotrin 81 mg EC Tablet] 81 mg PO DAILY 04/17/19 Naloxone HCl [Evzio] 2 mg IJ ASDIR PRN 04/17/19 Calcitriol [Rocaltrol 0.25 mcg Capsule] 0.5 mcg PO DAILY #90 capsule 05/12/19 Cholestyramine/Aspartame [Questran Light 4 gm Packet] 4 gm PO TID #90 packet 05/12/19 Diphenoxylate HCl/Atrop Sulf [Lomotil 2.5 mg Tablet] 1 tab PO BID tablet 05/12/19 History of Present Illness History of Present Illness: RANDEE VELÁSQUEZ is a 63 year old female patient was admitted when she presented with acute kidney injury due to high output ileostomy bag Hospital Course Hospital Course: She was admitted for the management of acute kidney injury, electrolyte derangement, UTI due to high output ileostomy bag. She has total colectomy with ileostomy bag, this has been a recurrent problem for this patient with recurrent hospital admission due to acute kidney injury, electrolyte derangement. Hospital course was very prolonged because of the protracted nature of her disease she was treated with IV fluid replacement therapy she was seen in consultation by GI, questran was also tried all this to no I expect patient to return back again for readmission Physical Exam Vital Signs: Temp Pulse Resp BP Pulse Ox 98.2 F 74 18 125/70 96 05/12/19 12:03 05/12/19 14:00 05/12/19 12:03 05/12/19 12:03 05/12/19 12:03 Intake & Output 05/11/19 05/12/19 05/13/19 06:59 06:59 06:59 Intake Total 4037 3389 1000 Output Total 1000 2300 Balance 3037 1089 1000 Weight 124.1 kg 125.1 kg General appearance: PRESENT: no acute distress Eye exam: PRESENT: PERRLA Respiratory exam: PRESENT: clear to auscultation stephen Cardiovascular exam: PRESENT: +S1, +S2 GI/Abdominal exam: PRESENT: soft, other - Ileostomy bag Neurological exam: PRESENT: alert Results Laboratory Results: 05/10/19 04:36 05/12/19 15:00 05/12/19 15:00 Sodium 136.8 L Potassium 4.4 Chloride 103 Carbon Dioxide 26 Anion Gap 8 BUN 8 Creatinine 1.40 H Est GFR ( Amer) 46 L Glucose 175 H Calcium 8.7 Total Bilirubin 0.4 AST 67 H Alkaline Phosphatase 64 Total Protein 6.7 Albumin 3.4 L 04/16/19 12:45 Creatine Kinase 210 H Impressions: Hip/Pelvis X-Ray 04/16/19 11:52 IMPRESSION: NEGATIVE STUDY OF THE RIGHT HIP. NO RADIOGRAPHIC EVIDENCE OF ACUTE INJURY. Gallstones. Abdomen/Pelvis CT 04/16/19 14:48 IMPRESSION: 1. Status post colectomy with a right hemiabdomen ileostomy. 2. Mildly distended urinary bladder. 3. Cholelithiasis. Hip X-Ray 04/18/19 00:00 IMPRESSION: NEGATIVE STUDY OF THE RIGHT AND LEFT HIPS AND PELVIS. NO RADIOGRAPHIC EVIDENCE OF ACUTE INJURY. Upper GI and Small Bowel X-Ray 04/20/19 00:00 IMPRESSION: NORMAL LIMITED SINGLE CONTRAST SWALLOW / UPPER GI SERIES / SMALL BOWEL SERIES. Qualifiers - * PATIENT BEING DISCHARGED WITH ANY OF THE FOLLOWING DIAGNOSIS: No VTE patient discharged on overlapping Therapy?: No Reason(s) for not prescribing Overlap Therapy:: Not indicated Stroke Pt being discharged on Anti-thrombolytic therapy?: No Reason(s) for not prescribing Anti-thrombolytic therapy:: Not indicated Stroke Pt being discharged on Anti-coagulation therapy?: No Reason(s) for not prescribing Anti-coagulation therapy:: Not indicated Stroke Pt being discharged on Statins?: No Reason(s) for not prescribing Statins therapy:: Not indicated [place] Pt being discharged on Aspirin therapy?: No Reason(s) for not prescribing Aspirin therapy:: Not indicated [place] Pt being discharged on Statins?: No Reason(s) for not prescribing Statin therapy:: Not indicated [place] Pt discharged ACEI/ARBS?: No Reason(s) for not prescribing ACEI/ARBS:: Not indicated Acute Heart Failure - Is this a Heart Failure Patient?: No Follow-up Appointment scheduled within 7 days?: Yes
[2019-05-12] MEDS: ATORVASTATIN CALCIUM 10 MG TABLET PO SCH (21:42)
[2019-05-12] MEDS: FAMOTIDINE 20 MG TABLET PO SCH (21:43)
[2019-05-12] MEDS: METOPROLOL TARTRATE 100 MG TABLET PO SCH (21:44)
[2019-05-13] MEDS: 1/2 NORMAL SALINE 1,000 ML IV PRN (01:12)
[2019-05-13] MEDS: HYDROMORPHONE HCL INJ/PF 2 MG/ML AMPULE IV PRN (05:11)
[2019-05-13] MEDS: SODIUM BICARBONATE 650 MG TABLET PO SCH (05:12)
[2019-05-13] MEDS: HYDRALAZINE HCL 50 MG TABLET PO SCH (05:12)
[2019-05-13] MEDS: HEPARIN SOD (PORCINE) 5,000 UNIT/ML 1 ML VIAL SUBCUT SCH (05:15)
[2019-05-13 07:41] VITALS: BP 134/81
[2019-05-13] MEDS: INSULIN LISPRO 100 UNIT/ML 3 ML VIAL SUBCUT SCH (08:19)
[2019-05-13] MEDS: ERGOCALCIFEROL (VITAMIN D2) 50000 UNIT (1.25 MG) CAPSULE PO SCH (09:12)
[2019-05-13] MEDS: MAGNESIUM OXIDE 400 MG TABLET PO SCH (09:12)
[2019-05-13] MEDS: GABAPENTIN 300 MG CAPSULE PO SCH (09:12)
[2019-05-13] MEDS: COLCHICINE 0.6 MG TABLET PO SCH (09:12)
[2019-05-13] MEDS: ALLOPURINOL 100 MG TABLET PO SCH (09:12)
[2019-05-13] MEDS: SITAGLIPTIN PHOSPHATE 50 MG TABLET PO SCH (09:12)
[2019-05-13] MEDS: CHOLESTYRAMINE/ASPARTAME 4 GM PACKET PO SCH (09:12)
[2019-05-13] MEDS: CODEINE SULF 15 MG TABLET PO SCH (09:13)
[2019-05-13] MEDS: CALCITRIOL 0.25 MCG CAPSULE PO SCH (09:13)
[2019-05-13] MEDS: AMLODIPINE BESYLATE 10 MG TABLET PO SCH (09:13)
[2019-05-13] MEDS: DIPHENOXYLATE HCL/ATROP SULF 2.5-0.025 MG TABLET PO SCH (09:13)
== END 2019-05-13 12:03 | disposition home or self-care (01) | DRG 683 ==
LOC: ER 10:57 → UNDOADMIN 15:17 → EH 15:17 → 5 17:19 → EH 17:19
PROVIDERS: ADMIT Internal Medicine; ATTEND Internal Medicine
DX: N17.9 Acute kidney failure, unspecified (principal); N30.00 Acute cystitis without hematuria; Z68.43 Body mass index [BMI] 50.0-59.9, adult; I48.91 Unspecified atrial fibrillation; I25.10 Atherosclerotic heart disease of native coronary artery without angina pectoris; Z93.2 Ileostomy status; E78.5 Hyperlipidemia, unspecified; E11.22 Type 2 diabetes mellitus with diabetic chronic kidney disease; I12.9 Hypertensive chronic kidney disease with stage 1 through stage 4 chronic kidney disease, or unspecified chronic kidney disease; N18.3 Chronic kidney disease, stage 3 (moderate); K21.9 Gastro-esophageal reflux disease without esophagitis; M19.90 Unspecified osteoarthritis, unspecified site; E86.0 Dehydration; B96.1 Klebsiella pneumoniae [K. pneumoniae] as the cause of diseases classified elsewhere; Z96.642 Presence of left artificial hip joint; I25.5 Ischemic cardiomyopathy; D64.9 Anemia, unspecified; E66.01 Morbid (severe) obesity due to excess calories; B37.3 Candidiasis of vulva and vagina; M54.16 Radiculopathy, lumbar region; Z90.710 Acquired absence of both cervix and uterus; Z95.5 Presence of coronary angioplasty implant and graft; Z86.718 Personal history of other venous thrombosis and embolism; Z79.4 Long term (current) use of insulin; Z85.528 Personal history of other malignant neoplasm of kidney; Z88.1 Allergy status to other antibiotic agents; Z88.5 Allergy status to narcotic agent; Z79.899 Other long term (current) drug therapy; I25.2 Old myocardial infarction; Z90.49 Acquired absence of other specified parts of digestive tract; Z82.49 Family history of ischemic heart disease and other diseases of the circulatory system
CPT/HCPCS: 36415; 36591; 51701; 73522; 74176; 74249; 80048; 80053; 81001; 82550; 82962; 83735; 85025; 87040; 87070; 87086; 87088; 87186; 87205; 87210; 87491; 87591; 99285; J0696; J1170; J1644; J1815; J2405; J3490; J7030; J7060; S0028

== ENCOUNTER 2019-06-14 08:36 | Outpatient (CLI) | payer MEDICARE, MEDICAID ==
[2019-06-14] MEDS ORDERED: NORMAL SALINE 500 ML IV PRN (09:06)
[2019-06-14 09:23] VITALS: BP 134/70
== END 2019-06-14 14:29 | disposition home or self-care (01) ==
LOC: II 08:36 → 5TH 08:40 → II 14:29
PROVIDERS: ATTEND Internal Medicine
PROC: 3E0437Z Introduction of Electrolytic and Water Balance Substance into Central Vein, Percutaneous Approach (ICD-10-PCS; principal; 2019-06-14)
DX: K94.19 Other complications of enterostomy (principal); E86.0 Dehydration
CPT/HCPCS: 96360; 96361; J1642

== ENCOUNTER 2019-06-19 10:00 | Inpatient (IN) | payer MEDICARE, MEDICAID ==
[2019-06-19] MEDS ORDERED: NORMAL SALINE 1000 ML 1,000 ML IV ONE ×2 (13:21→15:47)
--- NOTE | 2019-06-19 13:43 | ER Document Report ---
ED Dizziness/Weakness - General Chief Complaint: Dizziness Stated Complaint: LIGHT HEADED, ABDOMINAL PAIN Time Seen by Provider: 06/19/19 12:50 Primary Care Provider: LISA MATA MD [Primary Care Provider] - Follow up as needed Notes: 63-year-old female presents to the ER complaining of dizziness dry mouth and just feeling weak. Patient states she gets like this when she gets very dehydrated. The patient has an ostomy in her right lower quadrant. And often times she will get dehydrated quickly she states. She denies any nausea or vomiting. Denies chest pain or shortness of breath. TRAVEL OUTSIDE OF THE [place] IN LAST 30 DAYS: No - Related Data Allergies/Adverse Reactions: ciprofloxacin [From Cipro] Allergy (Severe, Verified 06/19/19 10:34) Hallucinations morphine [Morphine] Allergy (Unknown, Verified 06/19/19 10:34) Home Medications: discharged inpt may 13, pt reports no changes since discharge. Past Medical History - Social History Smoking Status: Never Smoker Chew tobacco use (# tins/day): No Frequency of alcohol use: None Drug Abuse: None Family History: Reviewed & Not Pertinent, Hypertension Patient has suicidal ideation: No Patient has homicidal ideation: No - Past Medical History Cardiac Medical History: Reports: Hx Atrial Fibrillation, Hx Coronary Artery Disease, Hx DVT, Hx Heart Attack - 2002, Hx Hypercholesterolemia, Hx H ypertension Pulmonary Medical History: Reports: Hx Pneumonia - 2006 Neurological Medical History: Endocrine Medical History: Reports: Hx Diabetes Mellitus Type 1, Hx Diabetes Mellitus Type 2 Renal/ Medical History: Reports: Hx Ovarian Cysts, Hx Renal Insufficiency. Denies: Hx Peritoneal Dialysis Malignancy Medical History: Reports: Hx Renal (Kidney) Cancer GI Medical History: Reports: Hx Gastroesophageal Reflux Disease, Hx Hiatal Hernia, Hx Irritable Bowel, Hx Ulcer Musculoskeletal Medical History: Reports Hx Arthritis - Back, Knees Psychiatric Medical History: Denies: Hx Depression Traumatic Medical History: Reports: Hx Fractures Past Surgical History: Reports: Hx Abdominal Surgery - COLOSTOMY. INTESTINAL RUPTURE, Hx Bowel Surgery - COLECTOMY/ileostomy, Hx Cardiac Catheterization, Hx Cardiac Surgery - STENTS, Hx Colostomy, Hx Coronary Stent, Hx Hysterectomy, Hx Ileostomy, Hx Orthopedic Surgery - L knee replacement, right ankle pin, Other - Tracheostomy 10 yrs ago - Immunizations Immunizations up to date: Yes Hx Diphtheria, Pertussis, Tetanus Vaccination: No Hx Pneumococcal Vaccination: 09/19/13 Review of Systems - Review of Systems Constitutional: Malaise, Weakness. denies: Chills, Fever Cardiovascular: denies: Chest pain Respiratory: denies: Short of breath Gastrointestinal: denies: Abdominal pain, Diarrhea, Nausea, Vomiting Neurological/Psychological: denies: Headaches -: Yes All other systems reviewed and negative Physical Exam - Vital signs Vitals: Temp Pulse BP Pulse Ox 97.7 F 74 134/77 H 85 L 06/19/19 10:30 06/19/19 10:30 06/19/19 10:30 06/19/19 10:30 - Notes Notes: GENERAL_APPEARANCE: well_nourished, alert, cooperative VITALS: reviewed, see vital signs table. HEAD: no_swelling\tenderness on the head. EYES: PERRL, EOMI, conjunctiva_clear. NOSE: no_nasal_discharge. MOUTH: Dry mouth tongue and lips THROAT: no_tonsilar_inflammation, no_airway_obstruction. no_lymphadenopathy NECK: supple, no_neck_tenderness, (-)thyromegaly. BACK: no_back_tenderness. CHEST_WALL: no_chest_tenderness. LUNGS: no_wheezing, no_rales, no_rhonchi, (-)accessory muscle use, good air exchange bilateral. HEART: normal_rate, normal_rhythm, normal_S1, normal_S2, (-)S3, (-)S4, no_murmur, no_rub. ABDOMEN: normal_BS, soft, ostomy right lower quadrant, no_abd_tenderness, (- )guarding, (-)rebound, no_organomegaly, no_abd_masses. EXTREMITIES: good pulses in all_extremities, no_swelling\tenderness in the extremities, no_edema. SKIN: warm, dry, good_color, no_rash. Poor skin turgor MENTAL_STATUS: speech_clear, oriented_X_3, normal_affect, responds_appropriately to questions. NEURO: Cranial nerves II through XII intact,, equal eight section blower strength able to walk and talk without any motor or sensory deficits no cerebellar signs Course - Re-evaluation Re-evalutation: 06/19/19 13:42 63-year-old female presents to the ER complaining of generalized weakness dry mouth and just not feeling right states she gets dizzy. Neurologically the patient is intact. Patient has very dry mouth and poor skin turgor. She states she often gets so dehydrated. This is usually due to her ostomy. She denies any black or bloody discharge from her ostomy. States she feels that the outputs been very similar it may increase but she is not having any abdominal pain. We will hydrate her some IV fluids and check her electrolytes and kidney function. 06/19/19 15:48 Patient's BUN and creatinine are very elevated. Looks as if she has had very high creatinines in the past. Today it is 7. She is hyponatremic at 125. Potassium is 5.3 but the patient's whole body potassium is low. We will continue to supplement the patient with IV fluids are spoken with Dr. Mata and he agrees to admit the patient to [facility]. The patient will need several days of IV fluids to correct her renal failure which is likely all due to acute kidney injury due to dehydration. The patient sodium will return to normal once she is hydrated appropriately. CO2 will return to normal. Will need continue IV fluid boluses to maintain her stability. - Vital Signs Vital signs: Temp Pulse Resp BP Pulse Ox 97.7 F 74 134/77 H 85 L 06/19/19 10:30 06/19/19 10:30 06/19/19 10:30 06/19/19 10:30 - Laboratory Result Diagrams: 06/19/19 14:20 06/19/19 14:20 Laboratory results interpreted by me: 06/19/19 06/19/19 14:20 14:20 RDW 17.5 H [place] % (Auto) 15.5 H Sodium 125.7 L Potassium 5.3 H Chloride 94 L Carbon Dioxide 17 L BUN 48 H Creatinine 7.16 H Est GFR ( Amer) 7 L Est GFR (MDRD) Non-Af 6 L Calcium 11.6 H AST 116 H Total Protein 8.5 H Critical Care Note - Critical Care Note Total time excluding time spent on procedures (mins): 31 Discharge - Discharge Clinical Impression: Metabolic acidosis, Dehydration, Acute kidney injury, Hyponatremia Condition: Fair Disposition: ADMITTED INPATIENT Admitting Provider: Yuval Unit Admitted: [facility] Referrals: LISA MATA MD [Primary Care Provider] - Follow up as needed
[2019-06-19 14:35] LABS: ABSOLUTE BASOPHILS # (AUTO) 0.1 10^3/uL (0.0-0.2); ABSOLUTE EOSINOPHILS # (AUTO) 0.1 10^3/uL (0.0-0.6); ABSOLUTE LYMPHOCYTES (AUTO) 1.8 10^3/uL (0.5-4.7); ABSOLUTE MONOCYTES (AUTO) 1.3 10^3/uL (0.1-1.4); BASOPHILS % (AUTO) 0.7 % (0-2); EOSINOPHILS % (AUTO) 1.3 % (0-6); HEMATOCRIT 38.2 % (36.0-47.0); HEMOGLOBIN 12.5 g/dL (12.0-15.5); LYMPHOCYTES % (AUTO) 22.1 % (13-45); MEAN CORPUSCULAR HEMOGLOBIN 30.7 pg (27.0-33.4); MEAN CORPUSCULAR HGB CONC 32.6 g/dL (32.0-36.0); MEAN CORPUSCULAR VOLUME 94 fl (80-97); MONOCYTES % (AUTO) 15.5 % (3-13); PLATELET COUNT 215 10^3/uL (150-450); RED BLOOD COUNT 4.06 10^6/uL (3.72-5.28); RED CELL DISTRIBUTION WIDTH 17.5 % (11.5-14.0); SEGMENTED NEUTROPHILS % (AUTO) 60.4 % (42-78); TOTAL CELLS COUNTED % (AUTO) 100 %; WHITE BLOOD COUNT 8.3 10^3/uL (4.0-10.5)
[2019-06-19 15:19] LABS: ALBUMIN 4.4 g/dL (3.5-5.0); ALKALINE PHOSPHATASE 114 U/L (38-126); ANION GAP 15 (5-19); ASPARTATE AMINO TRANSFERASE 116 U/L (14-36); BILIRUBIN,DIRECT 0.3 mg/dL (0.0-0.4); BILIRUBIN,TOTAL 0.5 mg/dL (0.2-1.3); BLOOD UREA NITROGEN 48 mg/dL (7-20); CALCIUM 11.6 mg/dL (8.4-10.2); CARBON DIOXIDE 17 mmol/L (22-30); CHLORIDE 94 mmol/L (98-107); GLUCOSE 99 mg/dL (75-110); POTASSIUM 5.3 mmol/L (3.6-5.0); TOTAL PROTEIN 8.5 g/dL (6.3-8.2)
[2019-06-19 16:20] LABS: AMORPHOUS SEDIMENT,URINE TRACE /HPF; APPEARANCE,URINE CLOUDY; BILIRUBIN,URINE NEGATIVE (NEGATIVE); COLOR,URINE AMBER; GLUCOSE, URINE NEGATIVE (NEGATIVE); KETONES,URINE NEGATIVE (NEGATIVE); LEUKOCYTE ESTERASE,URINE LARGE (NEGATIVE); NITRITE,URINE NEGATIVE (NEGATIVE); PROTEIN,URINE 30 mg/dL (NEGATIVE); URINE SPECIFIC GRAVITY 1.014; UROBILINOGEN,URINE NEGATIVE mg/dL (<2.0)
[2019-06-19 19:50] LABS: INTERNATIONAL RATION (INR) 1.34; PARTIAL THROMBOPLASTIN TIME 24.3 SEC (23.5-35.8); PROTHROMBIN TIME 16.7 SEC (11.4-15.4)
--- NOTE | 2019-06-19 20:49 | PDOC H&P ---
History of Present Illness Admission Date/PCP: 06/19/19 16:21 LISA MATA MD History of Present Illness: RANDEE VELÁSQUEZ is a 63 year old female, She came to the emergency room for evaluation dizziness, dry mouth, malaise, she stated to the ED physician that she get this way whenever she is dehydrated. She has a history of total colectomy with the high output ileostomy bag. She complain of feeling lightheaded, dizziness, abdominal discomfort.. [facility], the blood work demonstrated sodium 125, creatinine 7.16. She has multiple hospitalization for similar presentation typically she will present with prerenal azotemia usually this is corrected with fluid therapy. Past Medical History Cardiac Medical History: Reports: Atrial Fibrillation, Coronary Artery Disease, DVT, Myocardial Infarction - 2002, Hyperlipidema, Hypertension Pulmonary Medical History: Reports: Pneumonia - 2006 Neurological Medical History: Endocrine Medical History: Reports: Diabetes Mellitus Type 2 Malignancy Medical History: Reports: Renal (Kidney) Cancer GI Medical History: Reports: Gastroesophageal Reflux Disease, Hiatal Hernia Musculoskeltal Medical History: Reports: Arthritis - Back, Knees Psychiatric Medical History: Denies: Depression Hematology: Reports: Anemia Past Surgical History Past Surgical History: Reports: Cardiac Catheterization, Colostomy, Coronary Stent, Hysterectomy, Ileostomy, Orthopedic Surgery - L knee replacement, right ankle pin, Other - Tracheostomy 10 yrs ago Social History Smoking Status: Never Smoker Electronic Cigarette use?: No Frequency of Alcohol Use: None Hx Recreational Drug Use: No Drugs: None Hx Prescription Drug Abuse: No Family History Family History: Reviewed & Not Pertinent, Hypertension Parental Family History Reviewed: Yes Children Family History Reviewed: Yes Sibling(s) Family History Reviewed.: Yes Medication/Allergy Home Medications: Albuterol Sulfate [Albuterol Sulfate Hfa] 2 puff IH Q4HP PRN 06/19/19 Allopurinol [Zyloprim 100 mg Tablet] 100 mg PO DAILY 06/19/19 Aspirin [Ecotrin 81 mg EC Tablet] 81 mg PO DAILY 06/19/19 Calcitriol [Rocaltrol 0.5 mcg Capsule] 0.5 mcg PO DAILY 06/19/19 Clobetasol Propionate [Temovate 0.05% Cream 15 gm] 1 applic TOP BID 06/19/19 Clotrimazole [Itch Relief] 1 applic TOP BID 06/19/19 Clotrimazole/Betamethasone Dip [Lotrisone Cream 15 gm] 1 applic TOP BID 06/19/19 Colchicine [Colcrys 0.6 mg Tablet] 0.6 mg PO DAILY 06/19/19 Dapagliflozin Propanediol [Farxiga] 5 mg PO DAILY 06/19/19 Ergocalciferol (Vitamin D2) [Drisdol 50,000 unit (1.25MG) Capsule] 50,000 unit PO SA@1000 06/19/19 Exenatide [[place] Inj 5 Mcg/0.02 ml 1.2 ml Pen.injctr] 2 mg SQ KYLE@1000 06/19/19 Fluconazole [Diflucan] 150 mg PO FR@1000 06/19/19 Gabapentin [Neurontin] 600 mg PO Q6 06/19/19 Hydralazine HCl [Apresoline 50 mg Tablet] 50 mg PO Q8 06/19/19 Insulin Aspart [Novolog Insulin (Aspart) 100 unit/mL] 0 unit SQ .SLIDING SCALE 06/19/19 Loperamide HCl [Imodium 2 mg Capsule] 2 mg PO .PC EACH LOOSE STOOL 06/19/19 Magnesium Oxide [Mag-Ox 400 mg Tablet] 400 mg PO DAILY 06/19/19 Metoprolol Succinate [Toprol Xl] 200 mg PO DAILY 06/19/19 Naloxone HCl [Evzio] 2 mg IM .FOR OPIOID OVERDOSE PRN 06/19/19 Nystatin [Mycostatin Cream 15 gm] 1 applic TOP BID 06/19/19 Nystatin [Mycostatin Topical Powder 15 gm] 1 applic TOP BID 06/19/19 Oxycodone HCl [Oxycodone HCl 10 MG Tablet] 10 mg PO Q8HP PRN 06/19/19 Oxycodone Myristate [Xtampza ER] 18 mg PO Q12 06/19/19 Sitagliptin Phosphate [Januvia 50 mg Tablet] 50 mg PO DAILY 06/19/19 Allergies/Adverse Reactions: ciprofloxacin [From Cipro] Allergy (Severe, Verified 06/19/19 10:34) Hallucinations morphine [Morphine] Allergy (Unknown, Verified 06/19/19 10:34) Review of Systems Constitutional: ABSENT: chills, fever(s), headache(s), weight gain, weight loss Eyes: ABSENT: visual disturbances Ears: ABSENT: hearing changes Cardiovascular: ABSENT: chest pain, dyspnea on exertion, edema, orthropnea, palpitations Respiratory: ABSENT: cough, hemoptysis Gastrointestinal: PRESENT: abdominal pain Genitourinary: ABSENT: dysuria, hematuria Musculoskeletal: ABSENT: joint swelling Integumentary: ABSENT: rash, wounds Neurological: ABSENT: abnormal gait, abnormal speech, confusion, dizziness, focal weakness, syncope Psychiatric: ABSENT: anxiety, depression, homidical ideation, suicidal ideation Endocrine: ABSENT: cold intolerance, heat intolerance, menstrual abnormalities, polydipsia, polyuria Hematologic/Lymphatic: ABSENT: easy bleeding, easy bruising, lymphadenopathy Physical Exam Vital Signs: Temp Pulse Resp BP Pulse Ox 97.7 F 77 18 125/69 99 06/19/19 19:47 06/19/19 19:47 06/19/19 19:47 06/19/19 18:48 06/19/19 19:47 Intake & Output 06/18/19 06/19/19 06/20/19 06:59 06:59 06:59 Intake Total 1999 Balance 1999 Weight 115 kg General appearance: PRESENT: no acute distress Head exam: PRESENT: atraumatic, normocephalic Eye exam: PRESENT: PERRLA Mouth exam: PRESENT: dry mucosa Neck exam: PRESENT: full ROM Respiratory exam: PRESENT: clear to auscultation stephen Cardiovascular exam: PRESENT: RRR, +S1, +S2 Vascular exam: PRESENT: normal capillary refill GI/Abdominal exam: PRESENT: normal bowel sounds, soft, other - ileostomy bag Rectal exam: PRESENT: deferred Neurological exam: PRESENT: alert, CN II-XII grossly intact Psychiatric exam: PRESENT: appropriate affect, normal mood Skin exam: PRESENT: dry, intact, warm Results Laboratory Results: 06/19/19 14:20 06/19/19 19:10 06/19/19 06/19/19 06/19/19 14:20 14:20 14:20 WBC 8.3 RBC 4.06 Hgb 12.5 Hct 38.2 MCV 94 MCH 30.7 MCHC 32.6 RDW 17.5 H Plt Count 215 Seg Neutrophils % 60.4 Sodium 125.7 L Potassium 5.3 H Chloride 94 L Carbon Dioxide 17 L Anion Gap 15 BUN 48 H Creatinine 7.16 H Est GFR ( Amer) 7 L Est GFR (Non-Af Amer) Glucose 99 Calcium 11.6 H Phosphorus Magnesium 2.2 Total Bilirubin 0.5 AST 116 H Alkaline Phosphatase 114 Ammonia Total Protein 8.5 H Albumin 4.4 Amylase Lipase TSH Free T4 Urine Color Urine Appearance Urine pH Ur Specific [place] Urine Protein Urine Glucose (UA) Urine Ketones Urine Blood Urine Nitrite Ur Leukocyte Esterase Urine WBC (Auto) Urine RBC (Auto) 06/19/19 06/19/19 06/19/19 16:00 19:10 19:10 WBC RBC Hgb Hct MCV MCH MCHC RDW Plt Count Seg Neutrophils % Sodium Cancelled Potassium Cancelled Chloride Cancelled Carbon Dioxide Cancelled Anion Gap Cancelled BUN Cancelled Creatinine Cancelled Est GFR ( Amer) Cancelled Est GFR (Non-Af Amer) Cancelled Glucose Cancelled Calcium Cancelled Phosphorus Cancelled Magnesium Cancelled Total Bilirubin AST Alkaline Phosphatase Ammonia Total Protein Albumin Amylase Cancelled Lipase Cancelled TSH Free T4 Urine Color CHEN Urine Appearance CLOUDY Urine pH 5.0 Ur Specific [place] 1.014 Urine Protein 30 H Urine Glucose (UA) NEGATIVE Urine Ketones NEGATIVE Urine Blood SMALL H Urine Nitrite NEGATIVE Ur Leukocyte Esterase LARGE H Urine WBC (Auto) 124 Urine RBC (Auto) 41 06/19/19 06/19/19 19:10 19:10 WBC RBC Hgb Hct MCV MCH MCHC RDW Plt Count Seg Neutrophils % Sodium Potassium Chloride Carbon Dioxide Anion Gap BUN Creatinine Est GFR ( Amer) Est GFR (Non-Af Amer) Glucose Calcium Phosphorus Magnesium Total Bilirubin AST Alkaline Phosphatase Ammonia Cancelled Total Protein Albumin Amylase Lipase TSH Cancelled Free T4 Cancelled Urine Color Urine Appearance Urine pH Ur Specific [place] Urine Protein Urine Glucose (UA) Urine Ketones Urine Blood Urine Nitrite Ur Leukocyte Esterase Urine WBC (Auto) Urine RBC (Auto) 06/19/19 06/19/19 19:10 19:10 Creatine Kinase Cancelled CK-MB (CK-2) Cancelled Troponin I Cancelled NT-Pro-B Natriuret Pep Cancelled Assessment & Plan - Diagnosis (1) Acute kidney injury Is this a current diagnosis for this admission?: Yes Plan: The acute kidney injury is most likely prerenal, hydrate with normal saline (2) High output ileostomy Is this a current diagnosis for this admission?: Yes (3) Hyponatremia Is this a current diagnosis for this admission?: Yes (4) Chronic systolic heart failure Is this a current diagnosis for this admission?: Yes Plan: Patient to be treated with Lasix infusion because of history of chronic systolic heart failure to prevent volume overload (5) Coronary artery disease Qualifiers: Coronary Disease-Associated Artery/Lesion type: unspecified vessel or lesion type Is this a current diagnosis for this admission?: Yes (6) Ischemic cardiomyopathy Is this a current diagnosis for this admission?: Yes
[2019-06-19] MEDS: NORMAL SALINE 1000 ML 1,000 ML IV PRN (21:23)
[2019-06-19] MEDS: NORMAL SALINE 250 ML with FUROSEMIDE 250 MG IV PRN ×2 (21:24)
[2019-06-19] MEDS: HEPARIN SOD (PORCINE) 5,000 UNIT/ML 1 ML VIAL SUBCUT SCH (21:30)
[2019-06-19 21:37] LABS: URINE AMPHETAMINES SCREEN NEGATIVE; URINE BARBITURATES SCREEN NEGATIVE; URINE BENZODIAZEPINES SCREEN NEGATIVE; URINE COCAINE SCREEN NEGATIVE; URINE MARIJUANA (THC) SCREEN NEGATIVE; URINE METHADONE SCREEN NEGATIVE; URINE PHENCYCLIDINE SCREEN NEGATIVE
[2019-06-19 21:57] LABS: ANION GAP 16 (5-19); BLOOD UREA NITROGEN 46 mg/dL (7-20); CALCIUM 10.5 mg/dL (8.4-10.2); CARBON DIOXIDE 14 mmol/L (22-30); CHLORIDE 99 mmol/L (98-107); CREATINE KINASE 266 U/L (30-135); GLUCOSE 88 mg/dL (75-110); POTASSIUM 5.2 mmol/L (3.6-5.0)
[2019-06-19 22:00] LABS: CREATINE KINASE MB 5.41 ng/mL (<4.55); TROPONIN I 0.013 ng/mL
[2019-06-19 22:18] LABS: PHOSPHORUS 4.8 mg/dL (2.5-4.5)
[2019-06-19 22:35] LABS: FREE T4 (FREE THYROXINE) 1.5 ng/dL (0.78-2.19)
[2019-06-19 22:49] LABS: THYROID STIMULATING HORMONE 0.55 uIU/mL (0.47-4.68)
[2019-06-20] MEDS: OXYCODONE HCL IR 5 MG TABLET PO PRN ×2 (02:19→10:32)
[2019-06-20 03:26] LABS: ABSOLUTE EOSINOPHILS # (AUTO) 0.1 10^3/uL (0.0-0.6); ABSOLUTE LYMPHOCYTES (AUTO) 1.4 10^3/uL (0.5-4.7); ABSOLUTE MONOCYTES (AUTO) 0.8 10^3/uL (0.1-1.4); ABSOLUTE NEUT (AUTO) 4.2 10^3/uL (1.7-8.2); BASOPHILS % (AUTO) 0.5 % (0-2); EOSINOPHILS % (AUTO) 2.3 % (0-6); HEMATOCRIT 36.2 % (36.0-47.0); HEMOGLOBIN 11.8 g/dL (12.0-15.5); LYMPHOCYTES % (AUTO) 20.5 % (13-45); MEAN CORPUSCULAR HEMOGLOBIN 30.8 pg (27.0-33.4); MEAN CORPUSCULAR HGB CONC 32.5 g/dL (32.0-36.0); MEAN CORPUSCULAR VOLUME 95 fl (80-97); MONOCYTES % (AUTO) 12.7 % (3-13); PLATELET COUNT 185 10^3/uL (150-450); RED BLOOD COUNT 3.82 10^6/uL (3.72-5.28); RED CELL DISTRIBUTION WIDTH 17.7 % (11.5-14.0); TOTAL CELLS COUNTED % (AUTO) 100 %; WHITE BLOOD COUNT 6.6 10^3/uL (4.0-10.5)
[2019-06-20 03:52] LABS: CREATINE KINASE MB 4.3 ng/mL (<4.55); TROPONIN I 0.017 ng/mL
[2019-06-20 04:12] LABS: ALKALINE PHOSPHATASE 97 U/L (38-126); ASPARTATE AMINO TRANSFERASE 118 U/L (14-36); BILIRUBIN,DIRECT 0.3 mg/dL (0.0-0.4); BILIRUBIN,TOTAL 0.5 mg/dL (0.2-1.3); CREATINE KINASE 223 U/L (30-135); TOTAL PROTEIN 8.1 g/dL (6.3-8.2); TRIGLYCERIDES 228 mg/dL (<150)
[2019-06-20 04:23] LABS: DIRECT LDL 53 mg/dL (<100)
[2019-06-20 04:27] LABS: VLDL CHOLESTEROL 45.6 mg/dL (10-31)
[2019-06-20] MEDS ORDERED: GLUCAGON,HUMAN RECOMB 1 MG INJ IM PRN (04:30)
[2019-06-20] MEDS ORDERED: DEXTROSE 40% GEL 15 GM TUBE X 2 PO PRN (04:30)
[2019-06-20] MEDS ORDERED: DEXTROSE 40% GEL 15 GM TUBE PO PRN (04:30)
[2019-06-20] MEDS ORDERED: DEXTROSE 50%-WATER SYRINGE 25 GM/50 ML DOSE IV PRN (04:30)
[2019-06-20] MEDS ORDERED: DEXTROSE 50%-WATER SYRINGE 12.5 GM/25 ML DOSE IV PRN (04:30)
[2019-06-20] MEDS: HEPARIN SOD (PORCINE) 5,000 UNIT/ML 1 ML VIAL SUBCUT SCH ×3 (05:23→21:39)
[2019-06-20] MEDS: NORMAL SALINE 1000 ML 1,000 ML IV PRN ×2 (10:28→17:13)
[2019-06-20 11:33] LABS: CREATINE KINASE MB 3.85 ng/mL (<4.55); TROPONIN I 0.013 ng/mL
[2019-06-20 16:53] LABS: APPEARANCE,URINE SLIGHTLY-CLOUDY; BILIRUBIN,URINE NEGATIVE (NEGATIVE); COLOR,URINE YELLOW; GLUCOSE, URINE NEGATIVE (NEGATIVE); KETONES,URINE NEGATIVE (NEGATIVE); LEUKOCYTE ESTERASE,URINE LARGE (NEGATIVE); NITRITE,URINE NEGATIVE (NEGATIVE); PROTEIN,URINE NEGATIVE (NEGATIVE); URINE SPECIFIC GRAVITY 1.005; UROBILINOGEN,URINE NEGATIVE mg/dL (<2.0)
[2019-06-20] MEDS: NORMAL SALINE 250 ML with FUROSEMIDE 250 MG IV PRN ×2 (17:07)
[2019-06-20] MEDS ORDERED: ALBUTEROL SULFATE HFA (90 MCG/PUFF) 200 PUFF/8.5 GM MDI IH PRN (17:14)
[2019-06-20] MEDS ORDERED: LOPERAMIDE HCL 2 MG CAPSULE PO SCH (17:15)
[2019-06-20] MEDS: PHARMACY COMMUNICATION ORDER MC SCH (17:18)
[2019-06-20] MEDS ORDERED: (PENDING PHARMACY ID) (Oxycodone Myristate [Xtampza Er] 18 MG) PO SCH (17:30)
[2019-06-20] MEDS ORDERED: (PENDING PHARMACY ID) (Dapagliflozin Propanediol [Farxiga] 5 MG) PO SCH (17:30)
[2019-06-20] MEDS ORDERED: (PENDING PHARMACY ID) (Metoprolol Succinate [Toprol Xl] 200 MG) PO SCH (17:30)
[2019-06-20] MEDS: ALLOPURINOL 100 MG TABLET PO SCH (18:15)
[2019-06-20] MEDS: COLCHICINE 0.6 MG TABLET PO SCH (18:16)
[2019-06-20] MEDS ORDERED: OXYCODONE HCL IR 5 MG TABLET PO PRN (18:36)
--- NOTE | 2019-06-20 19:10 | RADIOLOGY REPORT (SQ) ---
EXAM DESCRIPTION: CHEST SINGLE VIEW COMPLETED DATE/TIME: 06/20/2019 5:57 pm REASON FOR STUDY: acute kidney injury COMPARISON: 02/20/2019 EXAM PARAMETERS: NUMBER OF VIEWS: One view. TECHNIQUE: Single frontal radiographic view of the chest acquired. RADIATION DOSE: NA LIMITATIONS: None. FINDINGS: LUNGS AND PLEURA: No opacities, masses or pneumothorax. No pleural effusion. MEDIASTINUM AND HILAR STRUCTURES: No masses. Contour normal. HEART AND VASCULAR STRUCTURES: Heart normal in size. Normal vasculature. BONES: No acute findings. HARDWARE: Injection port on the right. OTHER: No other significant finding. IMPRESSION: NO ACUTE RADIOGRAPHIC FINDING IN THE CHEST. TECHNICAL DOCUMENTATION: JOB ID: [id number] [employer]- All Rights Reserved Reading location - IP/workstation name: [email or web address]
--- NOTE | 2019-06-20 19:18 | PDOC PROGRESS REPORT ---
Subjective Progress Note for:: 06/20/19 Subjective:: Patient seen by the bedside, she complain of pain Reason For Visit: METABOLIC ACIDOSIS,DEHYDRATION,ACUTE KIDNEY INJURY Physical Exam Vital Signs: Temp Pulse Resp BP Pulse Ox 97.5 F 78 18 111/56 L 100 06/20/19 15:30 06/20/19 15:30 06/20/19 15:30 06/20/19 15:30 06/20/19 15:30 Intake & Output 06/19/19 06/20/19 06/21/19 06:59 06:59 06:59 Intake Total 3100 1704 Output Total 0 1200 Balance 3100 504 Weight 115 kg 115 kg General appearance: PRESENT: no acute distress Eye exam: PRESENT: PERRLA Respiratory exam: PRESENT: clear to auscultation stephen Cardiovascular exam: PRESENT: +S1, +S2 GI/Abdominal exam: PRESENT: soft Results Laboratory Results: 06/20/19 03:14 06/19/19 06/19/19 06/19/19 19:10 19:10 19:10 WBC RBC Hgb Hct MCV MCH MCHC RDW Plt Count Seg Neutrophils % Sodium Cancelled Potassium Cancelled Chloride Cancelled Carbon Dioxide Cancelled Anion Gap Cancelled BUN Cancelled Creatinine Cancelled Est GFR ( Amer) Cancelled Est GFR (Non-Af Amer) Cancelled Glucose Cancelled Calcium Cancelled Phosphorus Cancelled Magnesium Cancelled Total Bilirubin AST Alkaline Phosphatase Ammonia Cancelled Total Protein Albumin Triglycerides Cholesterol LDL Cholesterol Direct VLDL Cholesterol HDL Cholesterol Amylase Cancelled Lipase Cancelled TSH Free T4 Urine Color Urine Appearance Urine pH Ur Specific [place] Urine Protein Urine Glucose (UA) Urine Ketones Urine Blood Urine Nitrite Ur Leukocyte Esterase Urine WBC (Auto) Urine RBC (Auto) 06/19/19 06/19/19 06/19/19 19:10 21:20 21:20 WBC RBC Hgb Hct MCV MCH MCHC RDW Plt Count Seg Neutrophils % Sodium 129.2 L Potassium 5.2 H Chloride 99 Carbon Dioxide 14 L Anion Gap 16 BUN 46 H Creatinine 5.92 H Est GFR ( Amer) 9 L Est GFR (Non-Af Amer) Glucose 88 Calcium 10.5 H Phosphorus Magnesium 2.2 Total Bilirubin AST Alkaline Phosphatase Ammonia < 8.7 L Total Protein Albumin Triglycerides Cholesterol LDL Cholesterol Direct VLDL Cholesterol HDL Cholesterol Amylase Lipase TSH Cancelled Free T4 Cancelled Urine Color Urine Appearance Urine pH Ur Specific [place] Urine Protein Urine Glucose (UA) Urine Ketones Urine Blood Urine Nitrite Ur Leukocyte Esterase Urine WBC (Auto) Urine RBC (Auto) 06/19/19 06/19/19 06/20/19 21:20 21:20 03:14 WBC 6.6 RBC 3.82 Hgb 11.8 L Hct 36.2 MCV 95 MCH 30.8 MCHC 32.5 RDW 17.7 H Plt Count 185 Seg Neutrophils % 64.0 Sodium Potassium Chloride Carbon Dioxide Anion Gap BUN Creatinine Est GFR ( Amer) Est GFR (Non-Af Amer) Glucose Calcium Phosphorus 4.8 H Magnesium Total Bilirubin AST Alkaline Phosphatase Ammonia Total Protein Albumin Triglycerides Cholesterol LDL Cholesterol Direct VLDL Cholesterol HDL Cholesterol Amylase 84 Lipase 552.3 H TSH 0.55 Free T4 1.50 Urine Color Urine Appearance Urine pH Ur Specific [place] Urine Protein Urine Glucose (UA) Urine Ketones Urine Blood Urine Nitrite Ur Leukocyte Esterase Urine WBC (Auto) Urine RBC (Auto) 06/20/19 06/20/19 03:14 16:08 WBC RBC Hgb Hct MCV MCH MCHC RDW Plt Count Seg Neutrophils % Sodium Potassium Chloride Carbon Dioxide Anion Gap BUN Creatinine Est GFR ( Amer) Est GFR (Non-Af Amer) Glucose Calcium Phosphorus Magnesium Total Bilirubin 0.5 AST 118 H Alkaline Phosphatase 97 Ammonia Total Protein 8.1 Albumin 4.0 Triglycerides 228 H Cholesterol 122.60 LDL Cholesterol Direct 53 VLDL Cholesterol 45.6 H HDL Cholesterol 22 L Amylase Lipase TSH Free T4 Urine Color YELLOW Urine Appearance SLIGHTLY-CLOUDY Urine pH 5.0 Ur Specific [place] 1.005 Urine Protein NEGATIVE Urine Glucose (UA) NEGATIVE Urine Ketones NEGATIVE Urine Blood SMALL H Urine Nitrite NEGATIVE Ur Leukocyte Esterase LARGE H Urine WBC (Auto) 23 Urine RBC (Auto) 6 06/19/19 06/19/19 06/19/19 19:10 19:10 21:20 Creatine Kinase Cancelled CK-MB (CK-2) Cancelled 5.41 H Troponin I Cancelled 0.013 NT-Pro-B Natriuret Pep Cancelled 181 06/19/19 06/20/19 06/20/19 21:20 03:14 03:14 Creatine Kinase 266 H 223 H CK-MB (CK-2) 4.30 Troponin I 0.017 NT-Pro-B Natriuret Pep 06/20/19 06/20/19 10:15 10:15 Creatine Kinase 143 H CK-MB (CK-2) 3.85 Troponin I 0.013 NT-Pro-B Natriuret Pep Impressions: Chest X-Ray 06/20/19 00:00 IMPRESSION: NO ACUTE RADIOGRAPHIC FINDING IN THE CHEST. Assessment & Plan - Diagnosis (1) Acute kidney injury Is this a current diagnosis for this admission?: Yes Plan: Continue fluid therapy (2) High output ileostomy Is this a current diagnosis for this admission?: Yes (3) Hyponatremia Is this a current diagnosis for this admission?: Yes (4) Chronic systolic heart failure Is this a current diagnosis for this admission?: Yes (5) Coronary artery disease Qualifiers: Coronary Disease-Associated Artery/Lesion type: unspecified vessel or lesion type Is this a current diagnosis for this admission?: Yes (6) Ischemic cardiomyopathy Is this a current diagnosis for this admission?: Yes - Time Time Spent with patient: 35 or more minutes
[2019-06-20] MEDS: CLOBETASOL PROPIONATE 0.05% CREAM 15 GM TOP SCH (19:22)
[2019-06-20] MEDS: CLOTRIMAZOLE/BETAMETHASONE DIP CREAM 15 GM TOP SCH (19:22)
[2019-06-20] MEDS: ASPIRIN 81 MG TABLET, ENT COATED PO SCH (19:22)
[2019-06-20] MEDS: CLOTRIMAZOLE 1% CREAM 15 GM TOP SCH (19:22)
[2019-06-20 19:28] LABS: ANION GAP 10 (5-19); BLOOD UREA NITROGEN 41 mg/dL (7-20); CALCIUM 9.8 mg/dL (8.4-10.2); CARBON DIOXIDE 16 mmol/L (22-30); CHLORIDE 109 mmol/L (98-107); GLUCOSE 129 mg/dL (75-110); POTASSIUM 4.4 mmol/L (3.6-5.0)
[2019-06-20] MEDS: HYDROMORPHONE HCL INJ/PF 2 MG/ML AMPULE IV PRN (19:37)
[2019-06-20] MEDS: METOPROLOL SUCCINATE 50 MG TAB.SR.24H PO SCH (19:38)
[2019-06-20] MEDS: GABAPENTIN 300 MG CAPSULE PO SCH (19:38)
[2019-06-20] MEDS: SITAGLIPTIN PHOSPHATE 50 MG TABLET PO SCH (19:38)
[2019-06-20] MEDS: MAGNESIUM OXIDE 400 MG TABLET PO SCH (19:38)
[2019-06-20] MEDS: HYDRALAZINE HCL 50 MG TABLET PO SCH (21:39)
[2019-06-21] MEDS: GABAPENTIN 300 MG CAPSULE PO SCH ×4 (00:49→17:40)
[2019-06-21] MEDS: HYDROMORPHONE HCL INJ/PF 2 MG/ML AMPULE IV PRN ×4 (04:12→22:13)
[2019-06-21] MEDS: NORMAL SALINE 1000 ML 1,000 ML IV PRN ×2 (04:16→14:18)
[2019-06-21] MEDS: HEPARIN SOD (PORCINE) 5,000 UNIT/ML 1 ML VIAL SUBCUT SCH ×3 (05:57→22:13)
[2019-06-21] MEDS: HYDRALAZINE HCL 50 MG TABLET PO SCH ×3 (05:57→22:14)
[2019-06-21] MEDS ORDERED: OXYCODONE HCL IR 5 MG TABLET PO PRN (07:34)
[2019-06-21 07:38] LABS: ABSOLUTE EOSINOPHILS # (AUTO) 0.1 10^3/uL (0.0-0.6); ABSOLUTE MONOCYTES (AUTO) 0.7 10^3/uL (0.1-1.4); ABSOLUTE NEUT (AUTO) 2.5 10^3/uL (1.7-8.2); BASOPHILS % (AUTO) 0.6 % (0-2); HEMATOCRIT 33.6 % (36.0-47.0); LYMPHOCYTES % (AUTO) 21.9 % (13-45); MEAN CORPUSCULAR HEMOGLOBIN 30.4 pg (27.0-33.4); MEAN CORPUSCULAR HGB CONC 32.6 g/dL (32.0-36.0); MEAN CORPUSCULAR VOLUME 93 fl (80-97); MONOCYTES % (AUTO) 16.2 % (3-13); PLATELET COUNT 160 10^3/uL (150-450); RED CELL DISTRIBUTION WIDTH 17.8 % (11.5-14.0); SEGMENTED NEUTROPHILS % (AUTO) 58.3 % (42-78); TOTAL CELLS COUNTED % (AUTO) 100 %; WHITE BLOOD COUNT 4.3 10^3/uL (4.0-10.5)
[2019-06-21 08:03] LABS: ALBUMIN 3.4 g/dL (3.5-5.0); ALKALINE PHOSPHATASE 95 U/L (38-126); ASPARTATE AMINO TRANSFERASE 104 U/L (14-36); BILIRUBIN,DIRECT 0.3 mg/dL (0.0-0.4); BILIRUBIN,TOTAL 0.3 mg/dL (0.2-1.3)
[2019-06-21] MEDS: ALLOPURINOL 100 MG TABLET PO SCH (09:44)
[2019-06-21] MEDS: SITAGLIPTIN PHOSPHATE 50 MG TABLET PO SCH (09:44)
[2019-06-21] MEDS: COLCHICINE 0.6 MG TABLET PO SCH (09:44)
[2019-06-21] MEDS: METOPROLOL SUCCINATE 50 MG TAB.SR.24H PO SCH (09:44)
[2019-06-21] MEDS: MAGNESIUM OXIDE 400 MG TABLET PO SCH (09:44)
[2019-06-21] MEDS: ASPIRIN 81 MG TABLET, ENT COATED PO SCH (09:44)
[2019-06-21] MEDS: CLOTRIMAZOLE/BETAMETHASONE DIP CREAM 15 GM TOP SCH ×2 (09:45→17:29)
[2019-06-21] MEDS: CLOBETASOL PROPIONATE 0.05% CREAM 15 GM TOP SCH ×2 (09:45→17:39)
[2019-06-21] MEDS: CLOTRIMAZOLE 1% CREAM 15 GM TOP SCH ×2 (09:45→17:29)
--- NOTE | 2019-06-21 16:02 | PDOC PROGRESS REPORT ---
Subjective Progress Note for:: 06/21/19 Subjective:: Patient seen by the bedside, The serum creatinine is improved some on present strategy of IV fluid therapy, presently on normal saline with Lasix drip. Reason For Visit: METABOLIC ACIDOSIS,DEHYDRATION,ACUTE KIDNEY INJURY Physical Exam Vital Signs: Temp Pulse Resp BP Pulse Ox 97.9 F 90 16 97/74 L 98 06/21/19 12:32 06/21/19 14:00 06/21/19 08:24 06/21/19 12:32 06/21/19 12:32 Intake & Output 06/20/19 06/21/19 06/22/19 06:59 06:59 06:59 Intake Total 3100 2704 1360 Output Total 0 3400 Balance 3100 -696 1360 Weight 115 kg 116.6 kg General appearance: PRESENT: no acute distress Eye exam: PRESENT: PERRLA Respiratory exam: PRESENT: clear to auscultation stephen Cardiovascular exam: PRESENT: +S1, +S2 GI/Abdominal exam: PRESENT: soft Neurological exam: PRESENT: alert, CN II-XII grossly intact Results Laboratory Results: 06/21/19 07:18 06/20/19 19:01 06/20/19 06/20/19 06/21/19 16:08 19:01 07:18 WBC 4.3 RBC 3.60 L Hgb 11.0 L Hct 33.6 L MCV 93 MCH 30.4 MCHC 32.6 RDW 17.8 H Plt Count 160 Seg Neutrophils % 58.3 Sodium 135.3 L Potassium 4.4 Chloride 109 H Carbon Dioxide 16 L Anion Gap 10 BUN 41 H Creatinine 3.83 H Est GFR ( Amer) 14 L Glucose 129 H Calcium 9.8 Total Bilirubin AST Alkaline Phosphatase Total Protein Albumin Urine Color YELLOW Urine Appearance SLIGHTLY-CLOUDY Urine pH 5.0 Ur Specific [place] 1.005 Urine Protein NEGATIVE Urine Glucose (UA) NEGATIVE Urine Ketones NEGATIVE Urine Blood SMALL H Urine Nitrite NEGATIVE Ur Leukocyte Esterase LARGE H Urine WBC (Auto) 23 Urine RBC (Auto) 6 06/21/19 07:18 WBC RBC Hgb Hct MCV MCH MCHC RDW Plt Count Seg Neutrophils % Sodium Potassium Chloride Carbon Dioxide Anion Gap BUN Creatinine Est GFR ( Amer) Glucose Calcium Total Bilirubin 0.3 AST 104 H Alkaline Phosphatase 95 Total Protein 7.0 Albumin 3.4 L Urine Color Urine Appearance Urine pH Ur Specific [place] Urine Protein Urine Glucose (UA) Urine Ketones Urine Blood Urine Nitrite Ur Leukocyte Esterase Urine WBC (Auto) Urine RBC (Auto) 06/19/19 06/19/19 06/19/19 19:10 19:10 21:20 Creatine Kinase Cancelled CK-MB (CK-2) Cancelled 5.41 H Troponin I Cancelled 0.013 NT-Pro-B Natriuret Pep Cancelled 181 06/19/19 06/20/19 06/20/19 21:20 03:14 03:14 Creatine Kinase 266 H 223 H CK-MB (CK-2) 4.30 Troponin I 0.017 NT-Pro-B Natriuret Pep 06/20/19 06/20/19 10:15 10:15 Creatine Kinase 143 H CK-MB (CK-2) 3.85 Troponin I 0.013 NT-Pro-B Natriuret Pep Impressions: Chest X-Ray 06/20/19 00:00 IMPRESSION: NO ACUTE RADIOGRAPHIC FINDING IN THE CHEST. Assessment & Plan - Diagnosis (1) Acute kidney injury Is this a current diagnosis for this admission?: Yes (2) High output ileostomy Is this a current diagnosis for this admission?: Yes (3) Hyponatremia Is this a current diagnosis for this admission?: Yes (4) Chronic systolic heart failure Is this a current diagnosis for this admission?: Yes (5) Coronary artery disease Qualifiers: Coronary Disease-Associated Artery/Lesion type: unspecified vessel or lesion type Is this a current diagnosis for this admission?: Yes (6) Ischemic cardiomyopathy Is this a current diagnosis for this admission?: Yes - Time Time Spent with patient: 35 or more minutes
[2019-06-21] MEDS: NORMAL SALINE 250 ML with FUROSEMIDE 250 MG IV PRN ×2 (17:40)
[2019-06-21] MEDS: PHARMACY COMMUNICATION ORDER MC SCH (17:42)
[2019-06-22] MEDS: GABAPENTIN 300 MG CAPSULE PO SCH ×5 (03:38→23:29)
[2019-06-22 03:53] LABS: ABSOLUTE EOSINOPHILS # (AUTO) 0.2 10^3/uL (0.0-0.6); ABSOLUTE LYMPHOCYTES (AUTO) 1.3 10^3/uL (0.5-4.7); ABSOLUTE MONOCYTES (AUTO) 0.7 10^3/uL (0.1-1.4); ABSOLUTE NEUT (AUTO) 2.9 10^3/uL (1.7-8.2); BASOPHILS % (AUTO) 0.7 % (0-2); EOSINOPHILS % (AUTO) 4.7 % (0-6); HEMATOCRIT 32.9 % (36.0-47.0); HEMOGLOBIN 10.7 g/dL (12.0-15.5); LYMPHOCYTES % (AUTO) 24.6 % (13-45); MEAN CORPUSCULAR HEMOGLOBIN 30.2 pg (27.0-33.4); MEAN CORPUSCULAR HGB CONC 32.4 g/dL (32.0-36.0); MEAN CORPUSCULAR VOLUME 93 fl (80-97); MONOCYTES % (AUTO) 13.2 % (3-13); PLATELET COUNT 171 10^3/uL (150-450); RED BLOOD COUNT 3.52 10^6/uL (3.72-5.28); RED CELL DISTRIBUTION WIDTH 18.2 % (11.5-14.0); SEGMENTED NEUTROPHILS % (AUTO) 56.8 % (42-78); TOTAL CELLS COUNTED % (AUTO) 100 %; WHITE BLOOD COUNT 5.2 10^3/uL (4.0-10.5)
[2019-06-22 04:06] LABS: ALBUMIN 3.3 g/dL (3.5-5.0); ALKALINE PHOSPHATASE 88 U/L (38-126); ASPARTATE AMINO TRANSFERASE 69 U/L (14-36); BILIRUBIN,DIRECT 0.2 mg/dL (0.0-0.4); BILIRUBIN,TOTAL 0.3 mg/dL (0.2-1.3); TOTAL PROTEIN 6.3 g/dL (6.3-8.2)
[2019-06-22] MEDS: HYDROMORPHONE HCL INJ/PF 2 MG/ML AMPULE IV PRN ×4 (04:30→23:30)
[2019-06-22] MEDS: NORMAL SALINE 1000 ML 1,000 ML IV PRN ×3 (04:32→18:21)
[2019-06-22] MEDS: HYDRALAZINE HCL 50 MG TABLET PO SCH ×3 (05:08→22:13)
[2019-06-22] MEDS: HEPARIN SOD (PORCINE) 5,000 UNIT/ML 1 ML VIAL SUBCUT SCH ×3 (05:08→22:13)
[2019-06-22 09:04] LABS: ALBUMIN 3.1 g/dL (3.5-5.0); ALKALINE PHOSPHATASE 92 U/L (38-126); ANION GAP 10 (5-19); ASPARTATE AMINO TRANSFERASE 70 U/L (14-36); BILIRUBIN,DIRECT 0.2 mg/dL (0.0-0.4); BILIRUBIN,TOTAL 0.2 mg/dL (0.2-1.3); BLOOD UREA NITROGEN 26 mg/dL (7-20); CALCIUM 8.4 mg/dL (8.4-10.2); CARBON DIOXIDE 18 mmol/L (22-30); CHLORIDE 111 mmol/L (98-107); GLUCOSE 150 mg/dL (75-110); POTASSIUM 3.8 mmol/L (3.6-5.0); TOTAL PROTEIN 6.8 g/dL (6.3-8.2)
[2019-06-22] MEDS: CLOTRIMAZOLE 1% CREAM 15 GM TOP SCH ×2 (09:49→17:09)
[2019-06-22] MEDS: CLOTRIMAZOLE/BETAMETHASONE DIP CREAM 15 GM TOP SCH ×2 (09:49→17:09)
[2019-06-22] MEDS: CLOBETASOL PROPIONATE 0.05% CREAM 15 GM TOP SCH ×2 (09:49→17:09)
[2019-06-22] MEDS: SITAGLIPTIN PHOSPHATE 50 MG TABLET PO SCH (09:57)
[2019-06-22] MEDS: COLCHICINE 0.6 MG TABLET PO SCH (09:57)
[2019-06-22] MEDS: ASPIRIN 81 MG TABLET, ENT COATED PO SCH (09:57)
[2019-06-22] MEDS: ALLOPURINOL 100 MG TABLET PO SCH (09:57)
[2019-06-22] MEDS: MAGNESIUM OXIDE 400 MG TABLET PO SCH (09:57)
[2019-06-22] MEDS: METOPROLOL SUCCINATE 50 MG TAB.SR.24H PO SCH (09:57)
[2019-06-22] MEDS: NORMAL SALINE 250 ML with FUROSEMIDE 250 MG IV PRN ×2 (17:22)
[2019-06-22] MEDS: PHARMACY COMMUNICATION ORDER MC SCH (17:23)
[2019-06-22] MEDS: CALCITRIOL 0.25 MCG CAPSULE PO SCH (18:55)
--- NOTE | 2019-06-22 21:06 | PDOC PROGRESS REPORT ---
Subjective Progress Note for:: 06/22/19 Subjective:: Patient seen by the bedside, continue IV fluid therapy Reason For Visit: METABOLIC ACIDOSIS,DEHYDRATION,ACUTE KIDNEY INJURY Physical Exam Vital Signs: Temp Pulse Resp BP Pulse Ox 98.0 F 87 18 146/76 H 100 06/22/19 19:43 06/22/19 19:43 06/22/19 19:43 06/22/19 19:43 06/22/19 19:43 Intake & Output 06/21/19 06/22/19 06/23/19 06:59 06:59 06:59 Intake Total 2704 2881 2342 Output Total 3400 2250 2200 Balance -696 631 142 Weight 116.6 kg 117.8 kg General appearance: PRESENT: no acute distress Eye exam: PRESENT: PERRLA Respiratory exam: PRESENT: clear to auscultation stephen Cardiovascular exam: PRESENT: +S1, +S2 GI/Abdominal exam: PRESENT: soft Neurological exam: PRESENT: alert Results Laboratory Results: 06/22/19 03:20 06/22/19 03:20 06/22/19 06/22/19 06/22/19 03:20 03:20 03:20 WBC 5.2 RBC 3.52 L Hgb 10.7 L Hct 32.9 L MCV 93 MCH 30.2 MCHC 32.4 RDW 18.2 H Plt Count 171 Seg Neutrophils % 56.8 Sodium 139.1 Potassium 3.8 Chloride 111 H Carbon Dioxide 18 L Anion Gap 10 BUN 26 H Creatinine 2.59 H Est GFR ( Amer) 23 L Glucose 150 H Calcium 8.4 Total Bilirubin 0.3 0.2 AST 69 H 70 H Alkaline Phosphatase 88 92 Total Protein 6.3 6.8 Albumin 3.3 L 3.1 L 06/19/19 06/19/19 06/19/19 19:10 19:10 21:20 Creatine Kinase Cancelled CK-MB (CK-2) Cancelled 5.41 H Troponin I Cancelled 0.013 NT-Pro-B Natriuret Pep Cancelled 181 06/19/19 06/20/19 06/20/19 21:20 03:14 03:14 Creatine Kinase 266 H 223 H CK-MB (CK-2) 4.30 Troponin I 0.017 NT-Pro-B Natriuret Pep 06/20/19 06/20/19 10:15 10:15 Creatine Kinase 143 H CK-MB (CK-2) 3.85 Troponin I 0.013 NT-Pro-B Natriuret Pep Impressions: Chest X-Ray 06/20/19 00:00 IMPRESSION: NO ACUTE RADIOGRAPHIC FINDING IN THE CHEST. Assessment & Plan - Diagnosis (1) Acute kidney injury Is this a current diagnosis for this admission?: Yes (2) High output ileostomy Is this a current diagnosis for this admission?: Yes (3) Hyponatremia Is this a current diagnosis for this admission?: Yes (4) Chronic systolic heart failure Is this a current diagnosis for this admission?: Yes (5) Coronary artery disease Qualifiers: Coronary Disease-Associated Artery/Lesion type: unspecified vessel or lesion type Is this a current diagnosis for this admission?: Yes (6) Ischemic cardiomyopathy Is this a current diagnosis for this admission?: Yes - Time Time Spent with patient: 35 or more minutes
[2019-06-23] MEDS: GABAPENTIN 300 MG CAPSULE PO SCH ×3 (05:22→17:24)
[2019-06-23] MEDS: HEPARIN SOD (PORCINE) 5,000 UNIT/ML 1 ML VIAL SUBCUT SCH ×3 (05:22→21:33)
[2019-06-23] MEDS: HYDROMORPHONE HCL INJ/PF 2 MG/ML AMPULE IV PRN ×3 (05:22→17:38)
[2019-06-23] MEDS: HYDRALAZINE HCL 50 MG TABLET PO SCH ×3 (05:23→21:33)
[2019-06-23 06:07] LABS: ALBUMIN 3.5 g/dL (3.5-5.0); ALKALINE PHOSPHATASE 85 U/L (38-126); ASPARTATE AMINO TRANSFERASE 58 U/L (14-36); BILIRUBIN,DIRECT 0.2 mg/dL (0.0-0.4); BILIRUBIN,TOTAL 0.4 mg/dL (0.2-1.3)
[2019-06-23 06:10] LABS: ABSOLUTE EOSINOPHILS # (AUTO) 0.5 10^3/uL (0.0-0.6); ABSOLUTE LYMPHOCYTES (AUTO) 1.8 10^3/uL (0.5-4.7); ABSOLUTE MONOCYTES (AUTO) 0.5 10^3/uL (0.1-1.4); BASOPHILS % (AUTO) 0.7 % (0-2); EOSINOPHILS % (AUTO) 8.6 % (0-6); HEMATOCRIT 33.5 % (36.0-47.0); HEMOGLOBIN 10.9 g/dL (12.0-15.5); LYMPHOCYTES % (AUTO) 30.7 % (13-45); MEAN CORPUSCULAR HEMOGLOBIN 30.4 pg (27.0-33.4); MEAN CORPUSCULAR HGB CONC 32.6 g/dL (32.0-36.0); MEAN CORPUSCULAR VOLUME 93 fl (80-97); MONOCYTES % (AUTO) 8.9 % (3-13); PLATELET COUNT 194 10^3/uL (150-450); RED BLOOD COUNT 3.59 10^6/uL (3.72-5.28); RED CELL DISTRIBUTION WIDTH 18.2 % (11.5-14.0); SEGMENTED NEUTROPHILS % (AUTO) 51.1 % (42-78); TOTAL CELLS COUNTED % (AUTO) 100 %; WHITE BLOOD COUNT 5.9 10^3/uL (4.0-10.5)
[2019-06-23 09:25] LABS: ANION GAP 8 (5-19); BLOOD UREA NITROGEN 20 mg/dL (7-20); CALCIUM 8.1 mg/dL (8.4-10.2); CARBON DIOXIDE 20 mmol/L (22-30); CHLORIDE 113 mmol/L (98-107); GLUCOSE 80 mg/dL (75-110); POTASSIUM 3.6 mmol/L (3.6-5.0)
[2019-06-23] MEDS ORDERED: FLUCONAZOLE 100 MG TABLET PO SCH (10:00)
[2019-06-23] MEDS: ASPIRIN 81 MG TABLET, ENT COATED PO SCH (10:32)
[2019-06-23] MEDS: COLCHICINE 0.6 MG TABLET PO SCH (10:32)
[2019-06-23] MEDS: METOPROLOL SUCCINATE 50 MG TAB.SR.24H PO SCH (10:32)
[2019-06-23] MEDS: ALLOPURINOL 100 MG TABLET PO SCH (10:33)
[2019-06-23] MEDS: SITAGLIPTIN PHOSPHATE 50 MG TABLET PO SCH (10:33)
[2019-06-23] MEDS: MAGNESIUM OXIDE 400 MG TABLET PO SCH (10:33)
[2019-06-23] MEDS: CALCITRIOL 0.25 MCG CAPSULE PO SCH (10:34)
[2019-06-23] MEDS: CLOTRIMAZOLE 1% CREAM 15 GM TOP SCH ×2 (10:34→18:07)
[2019-06-23] MEDS: CLOTRIMAZOLE/BETAMETHASONE DIP CREAM 15 GM TOP SCH ×2 (10:34→17:35)
[2019-06-23] MEDS: CLOBETASOL PROPIONATE 0.05% CREAM 15 GM TOP SCH ×2 (10:35→18:08)
[2019-06-23] MEDS: NORMAL SALINE 1000 ML 1,000 ML IV PRN (14:21)
[2019-06-23] MEDS: NORMAL SALINE 250 ML with FUROSEMIDE 250 MG IV PRN ×2 (17:33)
[2019-06-23] MEDS: PHARMACY COMMUNICATION ORDER MC SCH (17:35)
--- NOTE | 2019-06-23 20:37 | PDOC PROGRESS REPORT ---
Subjective Progress Note for:: 06/23/19 Subjective:: Patient seen by the bedside the serum creatinine is 2, she will stay the weekend, she is improving on present regimen on admission it was 7 Reason For Visit: METABOLIC ACIDOSIS,DEHYDRATION,ACUTE KIDNEY INJURY Physical Exam Vital Signs: Temp Pulse Resp BP Pulse Ox 97.9 F 88 17 153/87 H 98 06/23/19 11:46 06/23/19 19:00 06/23/19 11:46 06/23/19 11:46 06/23/19 11:46 Intake & Output 06/22/19 06/23/19 06/24/19 06:59 06:59 06:59 Intake Total 2881 3392 780 Output Total 2250 3500 Balance 631 -108 780 Weight 117.8 kg 119.9 kg General appearance: PRESENT: no acute distress Eye exam: PRESENT: PERRLA Respiratory exam: PRESENT: clear to auscultation stephen Cardiovascular exam: PRESENT: +S1, +S2 GI/Abdominal exam: PRESENT: soft Neurological exam: PRESENT: alert Results Laboratory Results: 06/23/19 05:30 06/23/19 05:30 06/23/19 06/23/19 06/23/19 05:30 05:30 05:30 WBC 5.9 RBC 3.59 L Hgb 10.9 L Hct 33.5 L MCV 93 MCH 30.4 MCHC 32.6 RDW 18.2 H Plt Count 194 Seg Neutrophils % 51.1 Sodium 141.3 Potassium 3.6 Chloride 113 H Carbon Dioxide 20 L Anion Gap 8 BUN 20 Creatinine 2.07 H Est GFR ( Amer) 29 L Glucose 80 Calcium 8.1 L Total Bilirubin 0.4 AST 58 H Alkaline Phosphatase 85 Total Protein 7.0 Albumin 3.5 06/19/19 06/19/19 06/19/19 19:10 19:10 21:20 Creatine Kinase Cancelled CK-MB (CK-2) Cancelled 5.41 H Troponin I Cancelled 0.013 NT-Pro-B Natriuret Pep Cancelled 181 06/19/19 06/20/19 06/20/19 21:20 03:14 03:14 Creatine Kinase 266 H 223 H CK-MB (CK-2) 4.30 Troponin I 0.017 NT-Pro-B Natriuret Pep 10/15/19 10/15/19 10:15 10:15 Creatine Kinase 143 H CK-MB (CK-2) 3.85 Troponin I 0.013 NT-Pro-B Natriuret Pep Impressions: Chest X-Ray 06/20/19 00:00 IMPRESSION: NO ACUTE RADIOGRAPHIC FINDING IN THE CHEST. Assessment & Plan - Diagnosis (1) Acute kidney injury Is this a current diagnosis for this admission?: Yes Plan: Continue treatment (2) High output ileostomy Is this a current diagnosis for this admission?: Yes (3) Hyponatremia Is this a current diagnosis for this admission?: Yes (4) Chronic systolic heart failure Is this a current diagnosis for this admission?: Yes (5) Coronary artery disease Qualifiers: Coronary Disease-Associated Artery/Lesion type: unspecified vessel or lesion type Is this a current diagnosis for this admission?: Yes (6) Ischemic cardiomyopathy Is this a current diagnosis for this admission?: Yes (7) Morbid obesity Is this a current diagnosis for this admission?: Yes - Time Time Spent with patient: 25-34 minutes
[2019-06-24] MEDS: HYDROMORPHONE HCL INJ/PF 2 MG/ML AMPULE IV PRN ×4 (00:51→19:39)
[2019-06-24] MEDS: HYDRALAZINE HCL 50 MG TABLET PO SCH ×3 (06:36→22:11)
[2019-06-24] MEDS: GABAPENTIN 300 MG CAPSULE PO SCH ×4 (06:36→17:03)
[2019-06-24] MEDS: HEPARIN SOD (PORCINE) 5,000 UNIT/ML 1 ML VIAL SUBCUT SCH ×3 (06:36→22:12)
[2019-06-24] MEDS ORDERED: NORMAL SALINE 1000 ML 1,000 ML IV PRN (09:19)
[2019-06-24] MEDS ORDERED: LOPERAMIDE HCL 2 MG CAPSULE PO PRN (09:25)
[2019-06-24] MEDS: SITAGLIPTIN PHOSPHATE 50 MG TABLET PO SCH (09:42)
[2019-06-24] MEDS: CALCITRIOL 0.25 MCG CAPSULE PO SCH (09:42)
[2019-06-24] MEDS: ASPIRIN 81 MG TABLET, ENT COATED PO SCH (09:42)
[2019-06-24] MEDS: COLCHICINE 0.6 MG TABLET PO SCH (09:42)
[2019-06-24] MEDS: CLOTRIMAZOLE 1% CREAM 15 GM TOP SCH ×2 (09:42→17:03)
[2019-06-24] MEDS: METOPROLOL SUCCINATE 50 MG TAB.SR.24H PO SCH (09:42)
[2019-06-24] MEDS: MAGNESIUM OXIDE 400 MG TABLET PO SCH (09:42)
[2019-06-24] MEDS: ALLOPURINOL 100 MG TABLET PO SCH (09:42)
[2019-06-24] MEDS: CLOTRIMAZOLE/BETAMETHASONE DIP CREAM 15 GM TOP SCH ×2 (09:43→17:03)
[2019-06-24] MEDS: CLOBETASOL PROPIONATE 0.05% CREAM 15 GM TOP SCH ×2 (09:43→17:03)
[2019-06-24] MEDS ORDERED: ERGOCALCIFEROL (VITAMIN D2) 50000 UNIT (1.25 MG) CAPSULE PO SCH (10:00)
[2019-06-24 10:20] LABS: ANION GAP 10 (5-19); BLOOD UREA NITROGEN 14 mg/dL (7-20); CALCIUM 7.6 mg/dL (8.4-10.2); CARBON DIOXIDE 21 mmol/L (22-30); CHLORIDE 114 mmol/L (98-107); GLUCOSE 96 mg/dL (75-110); POTASSIUM 3.2 mmol/L (3.6-5.0)
--- NOTE | 2019-06-24 10:34 | PDOC PROGRESS REPORT ---
Subjective Progress Note for:: 06/24/19 Subjective:: Patient is admitted because of the dehydration's electrolyte imbalance kidney failures due to the high output of the ileostomy Patient is currently on IV fluid and Lasix drips Patient have a history of the cardiomyopathy I believe this to result in a Lasix drips Patient's denied any chest pain no short of breath no swelling Reason For Visit: METABOLIC ACIDOSIS,DEHYDRATION,ACUTE KIDNEY INJURY Physical Exam Vital Signs: Temp Pulse Resp BP Pulse Ox 98.4 F 91 18 163/99 H 100 06/24/19 08:45 06/24/19 08:45 06/24/19 08:45 06/24/19 08:45 06/24/19 08:45 Intake & Output 06/23/19 06/24/19 06/25/19 06:59 06:59 06:59 Intake Total 3392 1280 1000 Output Total 3500 1350 Balance -108 -70 1000 Weight 119.9 kg 120.6 kg General appearance: PRESENT: no acute distress, well-developed, well-nourished Head exam: PRESENT: atraumatic, normocephalic Eye exam: PRESENT: conjunctiva pink, EOMI, PERRLA. ABSENT: scleral icterus Ear exam: PRESENT: normal external ear exam Mouth exam: PRESENT: moist, tongue midline Neck exam: PRESENT: full ROM. ABSENT: carotid bruit, JVD, lymphadenopathy, thyr omegaly Respiratory exam: PRESENT: clear to auscultation stephen Cardiovascular exam: PRESENT: RRR. ABSENT: diastolic murmur, rubs, systolic murmur Pulses: PRESENT: normal dorsalis pedis pul, +2 pedal pulses bilateral Vascular exam: PRESENT: normal capillary refill GI/Abdominal exam: PRESENT: normal bowel sounds, soft. ABSENT: distended, guarding, mass, organolmegaly, rebound, tenderness Rectal exam: PRESENT: deferred Neurological exam: PRESENT: alert, awake, oriented to person, oriented to place, oriented to time, oriented to situation, CN II-XII grossly intact. ABSENT: motor sensory deficit Psychiatric exam: PRESENT: appropriate affect, normal mood. ABSENT: homicidal ideation, suicidal ideation Skin exam: PRESENT: dry, intact, warm. ABSENT: cyanosis, rash Results Laboratory Results: 06/23/19 05:30 06/24/19 09:48 06/24/19 09:48 Sodium 145.2 H Potassium 3.2 L Chloride 114 H Carbon Dioxide 21 L Anion Gap 10 BUN 14 Creatinine 1.84 H Est GFR ( Amer) 34 L Glucose 96 Calcium 7.6 L 06/19/19 06/19/19 06/19/19 19:10 19:10 21:20 Creatine Kinase Cancelled CK-MB (CK-2) Cancelled 5.41 H Troponin I Cancelled 0.013 NT-Pro-B Natriuret Pep Cancelled 181 06/19/19 06/20/19 06/20/19 21:20 03:14 03:14 Creatine Kinase 266 H 223 H CK-MB (CK-2) 4.30 Troponin I 0.017 NT-Pro-B Natriuret Pep 06/20/19 06/20/19 10:15 10:15 Creatine Kinase 143 H CK-MB (CK-2) 3.85 Troponin I 0.013 NT-Pro-B Natriuret Pep Impressions: Chest X-Ray 06/20/19 00:00 IMPRESSION: NO ACUTE RADIOGRAPHIC FINDING IN THE CHEST. Assessment & Plan - Diagnosis (1) Acute kidney injury Is this a current diagnosis for this admission?: Yes Plan: Will decrease the IV fluid to 75 cc due to the history of ischemic cardiomyopathy (2) Dehydration Is this a current diagnosis for this admission?: Yes Plan: Continue IV fluid (3) High output ileostomy Is this a current diagnosis for this admission?: Yes (4) Metabolic acidosis Is this a current diagnosis for this admission?: Yes Plan: We will get the sodium bicarb twice a day (5) Ischemic cardiomyopathy Is this a current diagnosis for this admission?: Yes Plan: We will discontinues the Lasix drips Continues to monitor the patient's in and out To be consider p.o. Lasix while patient in IV fluid - Time Time Spent with patient: 15-24 minutes Medications reviewed and adjusted accordingly: Yes Anticipated discharge: Home Within: Other - Plan Summary Plan Summary: We will decrease the IV fluid Discontinues to IV Lasix drips And the sodium bicarb Replace the potassiums
[2019-06-24] MEDS: FUROSEMIDE 20 MG TABLET PO SCH (11:04)
[2019-06-24] MEDS ORDERED: POTASSIUM CHLORIDE 20 MEQ PACKET PO ONE (11:30)
[2019-06-24] MEDS: PHARMACY COMMUNICATION ORDER MC SCH (17:03)
[2019-06-24] MEDS: SODIUM BICARBONATE 650 MG TABLET PO SCH (22:12)
[2019-06-25] MEDS: GABAPENTIN 300 MG CAPSULE PO SCH ×5 (00:04→23:29)
[2019-06-25] MEDS: NORMAL SALINE 1000 ML 1,000 ML IV PRN ×2 (00:06→11:59)
[2019-06-25] MEDS: HYDROMORPHONE HCL INJ/PF 2 MG/ML AMPULE IV PRN ×4 (02:34→22:03)
[2019-06-25 05:17] LABS: ABSOLUTE EOSINOPHILS # (AUTO) 0.3 10^3/uL (0.0-0.6); ABSOLUTE LYMPHOCYTES (AUTO) 1.3 10^3/uL (0.5-4.7); ABSOLUTE MONOCYTES (AUTO) 0.3 10^3/uL (0.1-1.4); ABSOLUTE NEUT (AUTO) 2.7 10^3/uL (1.7-8.2); EOSINOPHILS % (AUTO) 5.7 % (0-6); HEMATOCRIT 32.2 % (36.0-47.0); HEMOGLOBIN 10.4 g/dL (12.0-15.5); LYMPHOCYTES % (AUTO) 28.1 % (13-45); MEAN CORPUSCULAR HEMOGLOBIN 30.1 pg (27.0-33.4); MEAN CORPUSCULAR HGB CONC 32.3 g/dL (32.0-36.0); MEAN CORPUSCULAR VOLUME 93 fl (80-97); PLATELET COUNT 158 10^3/uL (150-450); RED BLOOD COUNT 3.46 10^6/uL (3.72-5.28); RED CELL DISTRIBUTION WIDTH 18.2 % (11.5-14.0); SEGMENTED NEUTROPHILS % (AUTO) 59.2 % (42-78); TOTAL CELLS COUNTED % (AUTO) 100 %; WHITE BLOOD COUNT 4.6 10^3/uL (4.0-10.5)
[2019-06-25] MEDS: HEPARIN SOD (PORCINE) 5,000 UNIT/ML 1 ML VIAL SUBCUT SCH ×3 (05:50→22:06)
[2019-06-25] MEDS: HYDRALAZINE HCL 50 MG TABLET PO SCH ×3 (05:50→22:05)
[2019-06-25 06:18] LABS: ANION GAP 12 (5-19); BLOOD UREA NITROGEN 13 mg/dL (7-20); CALCIUM 8.1 mg/dL (8.4-10.2); CARBON DIOXIDE 18 mmol/L (22-30); CHLORIDE 115 mmol/L (98-107); GLUCOSE 160 mg/dL (75-110); POTASSIUM 3.3 mmol/L (3.6-5.0)
[2019-06-25] MEDS ORDERED: POTASSIUM CHLORIDE 20 MEQ PACKET PO ONE (06:29)
--- NOTE | 2019-06-25 09:33 | PDOC PROGRESS REPORT ---
Subjective Progress Note for:: 06/25/19 Subjective:: Patient is currently doing well Patient is denied any chest pain no shortness breath Patient's denied any abdominal pain Patient's potassium is low Reason For Visit: METABOLIC ACIDOSIS,DEHYDRATION,ACUTE KIDNEY INJURY Physical Exam Vital Signs: Temp Pulse Resp BP Pulse Ox 97.7 F 89 22 H 171/88 H 99 06/25/19 03:50 06/25/19 06:45 06/25/19 03:50 06/25/19 03:50 06/25/19 03:50 Intake & Output 06/24/19 06/25/19 06/26/19 06:59 06:59 06:59 Intake Total 1280 2278 Output Total 1550 3225 Balance -270 -947 Weight 120.6 kg 120.6 kg General appearance: PRESENT: no acute distress, well-developed, well-nourished Head exam: PRESENT: atraumatic, normocephalic Eye exam: PRESENT: conjunctiva pink, EOMI, PERRLA. ABSENT: scleral icterus Ear exam: PRESENT: normal external ear exam Mouth exam: PRESENT: moist, tongue midline Neck exam: PRESENT: full ROM. ABSENT: carotid bruit, JVD, lymphadenopathy, thyromegaly Respiratory exam: PRESENT: clear to auscultation stephen Cardiovascular exam: PRESENT: RRR. ABSENT: diastolic murmur, rubs, systolic murmur Pulses: PRESENT: normal dorsalis pedis pul, +2 pedal pulses bilateral Vascular exam: PRESENT: normal capillary refill GI/Abdominal exam: PRESENT: normal bowel sounds, soft. ABSENT: distended, guarding, mass, organolmegaly, rebound, tenderness Rectal exam: PRESENT: deferred Neurological exam: PRESENT: alert, awake, oriented to person, oriented to place, oriented to time, oriented to situation, CN II-XII grossly intact. ABSENT: motor sensory deficit Psychiatric exam: PRESENT: appropriate affect, normal mood. ABSENT: homicidal ideation, suicidal ideation Skin exam: PRESENT: dry, intact, warm. ABSENT: cyanosis, rash Results Laboratory Results: 06/25/19 04:57 06/25/19 05:12 06/24/19 06/25/19 06/25/19 09:48 04:57 05:12 WBC 4.6 RBC 3.46 L Hgb 10.4 L Hct 32.2 L MCV 93 MCH 30.1 MCHC 32.3 RDW 18.2 H Plt Count 158 Seg Neutrophils % 59.2 Sodium 145.2 H 145.0 Potassium 3.2 L 3.3 L Chloride 114 H 115 H Carbon Dioxide 21 L 18 L Anion Gap 10 12 BUN 14 13 Creatinine 1.84 H 1.63 H Est GFR ( Amer) 34 L 39 L Glucose 96 160 H Calcium 7.6 L 8.1 L 06/20/19 16:08 Clean Catch Midstream Urine Culture - Final Escherichia Coli Esbl 06/19/19 19:10 Blood Blood Culture - Final NO GROWTH IN 5 DAYS 06/19/19 19:30 Blood Blood Culture - Final NO GROWTH IN 5 DAYS 06/19/19 06/19/19 06/19/19 19:10 19:10 21:20 Creatine Kinase Cancelled CK-MB (CK-2) Cancelled 5.41 H Troponin I Cancelled 0.013 NT-Pro-B Natriuret Pep Cancelled 181 06/19/19 06/20/19 06/20/19 21:20 03:14 03:14 Creatine Kinase 266 H 223 H CK-MB (CK-2) 4.30 Troponin I 0.017 NT-Pro-B Natriuret Pep 06/20/19 06/20/19 10:15 10:15 Creatine Kinase 143 H CK-MB (CK-2) 3.85 Troponin I 0.013 NT-Pro-B Natriuret Pep Impressions: Chest X-Ray 06/20/19 00:00 IMPRESSION: NO ACUTE RADIOGRAPHIC FINDING IN THE CHEST. Assessment & Plan - Diagnosis (1) Acute kidney injury Is this a current diagnosis for this admission?: Yes Plan: Continues to IV fluid 75 cc/h (2) Dehydration Is this a current diagnosis for this admission?: Yes Plan: Continue IV fluid (3) High output ileostomy Is this a current diagnosis for this admission?: Yes (4) Metabolic acidosis Is this a current diagnosis for this admission?: Yes Plan: We will get the sodium bicarb twice a day (5) Ischemic cardiomyopathy Is this a current diagnosis for this admission?: Yes Plan: We will discontinues the Lasix drips Continues to monitor the patient's in and out To be consider p.o. Lasix while patient in IV fluid - Time Time Spent with patient: 15-24 minutes Medications reviewed and adjusted accordingly: Yes Anticipated discharge: Home Within: Other - Plan Summary Plan Summary: Replace the potassiums
[2019-06-25] MEDS: FUROSEMIDE 20 MG TABLET PO SCH (09:34)
[2019-06-25] MEDS: ASPIRIN 81 MG TABLET, ENT COATED PO SCH (09:34)
[2019-06-25] MEDS: ALLOPURINOL 100 MG TABLET PO SCH (09:34)
[2019-06-25] MEDS: METOPROLOL SUCCINATE 50 MG TAB.SR.24H PO SCH (09:34)
[2019-06-25] MEDS: MAGNESIUM OXIDE 400 MG TABLET PO SCH (09:34)
[2019-06-25] MEDS: SITAGLIPTIN PHOSPHATE 50 MG TABLET PO SCH (09:34)
[2019-06-25] MEDS: COLCHICINE 0.6 MG TABLET PO SCH (09:34)
[2019-06-25] MEDS: CALCITRIOL 0.25 MCG CAPSULE PO SCH (09:34)
[2019-06-25] MEDS: SODIUM BICARBONATE 650 MG TABLET PO SCH ×2 (09:35→22:05)
[2019-06-25] MEDS: CLOBETASOL PROPIONATE 0.05% CREAM 15 GM TOP SCH ×2 (09:38→17:09)
[2019-06-25] MEDS: CLOTRIMAZOLE 1% CREAM 15 GM TOP SCH ×2 (09:38→17:08)
[2019-06-25] MEDS: CLOTRIMAZOLE/BETAMETHASONE DIP CREAM 15 GM TOP SCH ×2 (09:38→17:09)
[2019-06-25] MEDS: AMOXICILLIN TR/POT CLAVULANATE 500-125 MG TAB PO SCH ×2 (10:33→22:07)
[2019-06-25] MEDS: PHARMACY COMMUNICATION ORDER MC SCH (17:09)
[2019-06-26] MEDS: HYDROMORPHONE HCL INJ/PF 2 MG/ML AMPULE IV PRN ×4 (04:52→23:29)
[2019-06-26] MEDS: NORMAL SALINE 1000 ML 1,000 ML IV PRN ×2 (04:53→17:03)
[2019-06-26] MEDS: HYDRALAZINE HCL 50 MG TABLET PO SCH ×3 (05:00→21:24)
[2019-06-26] MEDS: GABAPENTIN 300 MG CAPSULE PO SCH ×4 (05:00→23:26)
[2019-06-26] MEDS: HEPARIN SOD (PORCINE) 5,000 UNIT/ML 1 ML VIAL SUBCUT SCH ×3 (05:01→21:23)
[2019-06-26 06:37] LABS: ANION GAP 7 (5-19); BLOOD UREA NITROGEN 9 mg/dL (7-20); CALCIUM 8.2 mg/dL (8.4-10.2); CARBON DIOXIDE 25 mmol/L (22-30); CHLORIDE 110 mmol/L (98-107); POTASSIUM 3.6 mmol/L (3.6-5.0)
[2019-06-26 06:39] LABS: GLUCOSE 50 mg/dL (75-110)
[2019-06-26] MEDS: METOPROLOL SUCCINATE 50 MG TAB.SR.24H PO SCH (09:11)
[2019-06-26] MEDS: SODIUM BICARBONATE 650 MG TABLET PO SCH ×2 (09:11→21:23)
[2019-06-26] MEDS: COLCHICINE 0.6 MG TABLET PO SCH (09:11)
[2019-06-26] MEDS: CALCITRIOL 0.25 MCG CAPSULE PO SCH (09:11)
[2019-06-26] MEDS: ALLOPURINOL 100 MG TABLET PO SCH (09:11)
[2019-06-26] MEDS: FUROSEMIDE 20 MG TABLET PO SCH (09:12)
[2019-06-26] MEDS: CLOTRIMAZOLE/BETAMETHASONE DIP CREAM 15 GM TOP SCH ×2 (09:12→17:24)
[2019-06-26] MEDS: ASPIRIN 81 MG TABLET, ENT COATED PO SCH (09:12)
[2019-06-26] MEDS: AMOXICILLIN TR/POT CLAVULANATE 500-125 MG TAB PO SCH ×2 (09:12→21:24)
[2019-06-26] MEDS: MAGNESIUM OXIDE 400 MG TABLET PO SCH (09:12)
[2019-06-26] MEDS: CLOBETASOL PROPIONATE 0.05% CREAM 15 GM TOP SCH ×2 (09:12→17:24)
[2019-06-26] MEDS: CLOTRIMAZOLE 1% CREAM 15 GM TOP SCH ×2 (09:12→17:24)
[2019-06-26] MEDS: SITAGLIPTIN PHOSPHATE 50 MG TABLET PO SCH (09:12)
[2019-06-26] MEDS: PHARMACY COMMUNICATION ORDER MC SCH (17:24)
--- NOTE | 2019-06-26 21:13 | PDOC PROGRESS REPORT ---
Subjective Progress Note for:: 06/26/19 Subjective:: Patient seen by the bedside Reason For Visit: METABOLIC ACIDOSIS,DEHYDRATION,ACUTE KIDNEY INJURY Physical Exam Vital Signs: Temp Pulse Resp BP Pulse Ox 98.3 F 74 19 164/99 H 99 06/26/19 19:55 06/26/19 19:55 06/26/19 19:55 06/26/19 19:55 06/26/19 19:55 Intake & Output 06/25/19 06/26/19 06/27/19 06:59 06:59 06:59 Intake Total 2278 3201 1253 Output Total 3225 5295 1500 Balance -620 -815 -383 Weight 120.6 kg 120.9 kg 120.9 kg General appearance: PRESENT: no acute distress Eye exam: PRESENT: PERRLA Respiratory exam: PRESENT: clear to auscultation stephen Cardiovascular exam: PRESENT: +S1, +S2 GI/Abdominal exam: PRESENT: soft Results Laboratory Results: 06/25/19 04:57 06/26/19 05:10 06/26/19 05:10 Sodium 142.1 Potassium 3.6 Chloride 110 H Carbon Dioxide 25 Anion Gap 7 BUN 9 Creatinine 1.42 H Est GFR ( Amer) 45 L Glucose 50 L Calcium 8.2 L 06/19/19 06/19/19 06/19/19 19:10 19:10 21:20 Creatine Kinase Cancelled CK-MB (CK-2) Cancelled 5.41 H Troponin I Cancelled 0.013 NT-Pro-B Natriuret Pep Cancelled 181 06/19/19 06/20/19 06/20/19 21:20 03:14 03:14 Creatine Kinase 266 H 223 H CK-MB (CK-2) 4.30 Troponin I 0.017 NT-Pro-B Natriuret Pep 06/20/19 06/20/19 10:15 10:15 Creatine Kinase 143 H CK-MB (CK-2) 3.85 Troponin I 0.013 NT-Pro-B Natriuret Pep Impressions: Chest X-Ray 06/20/19 00:00 IMPRESSION: NO ACUTE RADIOGRAPHIC FINDING IN THE CHEST. Assessment & Plan - Diagnosis (1) Acute kidney injury Is this a current diagnosis for this admission?: Yes Plan: improved (2) High output ileostomy Is this a current diagnosis for this admission?: Yes (3) Hyponatremia Is this a current diagnosis for this admission?: Yes (4) Chronic systolic heart failure Is this a current diagnosis for this admission?: Yes (5) Coronary artery disease Qualifiers: Coronary Disease-Associated Artery/Lesion type: unspecified vessel or lesion type Is this a current diagnosis for this admission?: Yes (6) Ischemic cardiomyopathy Is this a current diagnosis for this admission?: Yes (7) Morbid obesity Is this a current diagnosis for this admission?: Yes - Time Time Spent with patient: 15-24 minutes
[2019-06-27] MEDS: GABAPENTIN 300 MG CAPSULE PO SCH ×2 (05:01→11:14)
[2019-06-27] MEDS: HEPARIN SOD (PORCINE) 5,000 UNIT/ML 1 ML VIAL SUBCUT SCH (05:02)
[2019-06-27] MEDS: HYDRALAZINE HCL 50 MG TABLET PO SCH (05:02)
[2019-06-27] MEDS: HYDROMORPHONE HCL INJ/PF 2 MG/ML AMPULE IV PRN ×2 (05:43→11:21)
[2019-06-27 05:48] LABS: ANION GAP 8 (5-19); BLOOD UREA NITROGEN 7 mg/dL (7-20); CARBON DIOXIDE 25 mmol/L (22-30); CHLORIDE 107 mmol/L (98-107); GLUCOSE 114 mg/dL (75-110); POTASSIUM 3.6 mmol/L (3.6-5.0)
[2019-06-27] MEDS: NORMAL SALINE 1000 ML 1,000 ML IV PRN (06:08)
[2019-06-27] MEDS: CLOTRIMAZOLE/BETAMETHASONE DIP CREAM 15 GM TOP SCH (09:12)
[2019-06-27] MEDS: CLOBETASOL PROPIONATE 0.05% CREAM 15 GM TOP SCH (09:12)
[2019-06-27] MEDS: CLOTRIMAZOLE 1% CREAM 15 GM TOP SCH (09:12)
[2019-06-27] MEDS: ALLOPURINOL 100 MG TABLET PO SCH (09:19)
[2019-06-27] MEDS: METOPROLOL SUCCINATE 50 MG TAB.SR.24H PO SCH (09:19)
[2019-06-27] MEDS: ASPIRIN 81 MG TABLET, ENT COATED PO SCH (09:19)
[2019-06-27] MEDS: SITAGLIPTIN PHOSPHATE 50 MG TABLET PO SCH (09:19)
[2019-06-27] MEDS: MAGNESIUM OXIDE 400 MG TABLET PO SCH (09:19)
[2019-06-27] MEDS: AMOXICILLIN TR/POT CLAVULANATE 500-125 MG TAB PO SCH (09:19)
[2019-06-27] MEDS: CALCITRIOL 0.25 MCG CAPSULE PO SCH (09:19)
[2019-06-27] MEDS: FUROSEMIDE 20 MG TABLET PO SCH (09:19)
[2019-06-27] MEDS: SODIUM BICARBONATE 650 MG TABLET PO SCH (09:20)
[2019-06-27] MEDS: COLCHICINE 0.6 MG TABLET PO SCH (09:20)
[2019-06-27] MEDS ORDERED: NORMAL SALINE 1000 ML 500 ML IV PRN (10:20)
[2019-06-27 11:31] VITALS: BP 121/66
--- NOTE | 2019-06-27 14:58 | PDOC DISCHARGE SUMMARY ---
Impression - Admit/DC Date/PCP Admission Date/Primary Care Provider: 06/19/19 16:21 LISA MATA MD Discharge Date: 06/27/19 - Discharge Diagnosis (1) Acute kidney injury Is this a current diagnosis for this admission?: Yes (2) High output ileostomy Is this a current diagnosis for this admission?: Yes (3) Hyponatremia Is this a current diagnosis for this admission?: Yes (4) Chronic systolic heart failure Is this a current diagnosis for this admission?: Yes (5) Coronary artery disease Is this a current diagnosis for this admission?: Yes (6) Ischemic cardiomyopathy Is this a current diagnosis for this admission?: Yes (7) Morbid obesity Is this a current diagnosis for this admission?: Yes - Additional Information Discharge Diet: Diabetic Discharge Activity: Activity As Tolerated Referrals: LISA MATA MD [Primary Care Provider] - 06/28/19 11:00 am Home Medications: Albuterol Sulfate [Albuterol Sulfate Hfa] 2 puff IH Q4HP PRN 06/19/19 Allopurinol [Zyloprim 100 mg Tablet] 100 mg PO DAILY 06/19/19 Aspirin [Ecotrin 81 mg EC Tablet] 81 mg PO DAILY 06/19/19 Calcitriol [Rocaltrol 0.5 mcg Capsule] 0.5 mcg PO DAILY 06/19/19 Clobetasol Propionate [Temovate 0.05% Cream 15 gm] 1 applic TOP BID 06/19/19 Clotrimazole/Betamethasone Dip [Lotrisone Cream 15 gm] 1 applic TOP BID 06/19/19 Colchicine [Colcrys 0.6 mg Tablet] 0.6 mg PO DAILY 06/19/19 Dapagliflozin Propanediol [Farxiga] 5 mg PO DAILY 06/19/19 Ergocalciferol (Vitamin D2) [Drisdol 50,000 unit (1.25MG) Capsule] 50,000 unit PO SA@1000 06/19/19 Fluconazole [Diflucan] 150 mg PO FR@1000 06/19/19 Gabapentin [Neurontin] 600 mg PO Q6 06/19/19 Hydralazine HCl [Apresoline 50 mg Tablet] 50 mg PO Q8 06/19/19 Insulin Aspart [Novolog Insulin (Aspart) 100 unit/mL] 0 unit SQ .SLIDING SCALE 06/19/19 Loperamide HCl [Imodium 2 mg Capsule] 2 mg PO .PC EACH LOOSE STOOL 06/19/19 Magnesium Oxide [Mag-Ox 400 mg Tablet] 400 mg PO DAILY 06/19/19 Metoprolol Succinate [Toprol Xl] 200 mg PO DAILY 06/19/19 Naloxone HCl [Evzio] 2 mg IM .FOR OPIOID OVERDOSE PRN 06/19/19 Nystatin [Mycostatin Cream 15 gm] 1 applic TOP BID 06/19/19 Nystatin [Mycostatin Topical Powder 15 gm] 1 applic TOP BID 06/19/19 Oxycodone HCl [Oxycodone HCl 10 MG Tablet] 10 mg PO Q8HP PRN 06/19/19 Oxycodone Myristate [Xtampza ER] 18 mg PO Q12 06/19/19 Sitagliptin Phosphate [Januvia 50 mg Tablet] 50 mg PO DAILY 06/19/19 Calcitriol [Rocaltrol 0.25 mcg Capsule] 0.5 mcg PO DAILY capsule 06/26/19 Glucagon,Human Recombinant [Glucagen Inj 1 mg Vial] 1 mg IM PRN PRN vial 06/26/19 Heparin Sodium,Porcine [Heparin Inj 5,000 Units/ml 1 ml Vial] 5,000 unit SUBCUT Q8 vial 06/26/19 History of Present Illiness History of Present Illness: RANDEE VELÁSQUEZ is a 63 year old female, She came to the emergency room for evaluation dizziness, dry mouth, malaise, she stated to the ED physician that she get this way whenever she is dehydrated. She has a history of total colectomy with the high output ileostomy bag. She complain of feeling lightheaded, dizziness, abdominal discomfort.. She was evaluated in the emergency room, the blood work demonstrated sodium 125, creatinine 7.16. She has multiple hospitalization for similar presentation typically she will present with prerenal azotemia usually this is corrected with fluid therapy. Hospital Course Hospital Course: Patient was treated when she presented with acute kidney injury on admission the serum creatinine was 7, the serum creatinine on discharge is 1.43. She was treated with normal saline with Lasix drip, this is drip was administered to prevent volume overload because of chronic systolic heart failure. Patient did respond to treatment regimen. She has multiple hospitalization for the same problem this is partly due to high output ileostomy bag, she is total colectomy Physical Exam Vital Signs: Temp Pulse Resp BP Pulse Ox 98.2 F 79 18 121/66 98 06/27/19 11:30 06/27/19 11:30 06/27/19 11:30 06/27/19 11:30 06/27/19 11:30 Intake & Output 06/26/19 06/27/19 06/28/19 06:59 06:59 06:59 Intake Total 3201 2234 Output Total 3425 2100 Balance -224 134 Weight 120.9 kg 121.6 kg General appearance: PRESENT: no acute distress Eye exam: PRESENT: PERRLA Respiratory exam: PRESENT: clear to auscultation stephen Cardiovascular exam: PRESENT: +S1, +S2 GI/Abdominal exam: PRESENT: soft Neurological exam: PRESENT: alert, CN II-XII grossly intact Results Laboratory Results: WBC 4.6 10^3/uL (4.0-10.5) 06/25/19 04:57 RBC 3.46 10^6/uL (3.72-5.28) L 06/25/19 04:57 Hgb 10.4 g/dL (12.0-15.5) L 06/25/19 04:57 Hct 32.2 % (36.0-47.0) L 06/25/19 04:57 MCV 93 fl (80-97) 06/25/19 04:57 MCH 30.1 pg (27.0-33.4) 06/25/19 04:57 MCHC 32.3 g/dL (32.0-36.0) 06/25/19 04:57 RDW 18.2 % (11.5-14.0) H 06/25/19 04:57 Plt Count 158 10^3/uL (150-450) 06/25/19 04:57 Lymph % (Auto) 28.1 % (13-45) 06/25/19 04:57 Stephenson % (Auto) 6.0 % (3-13) 06/25/19 04:57 Eos % (Auto) 5.7 % (0-6) 06/25/19 04:57 Baso % (Auto) 1.0 % (0-2) 06/25/19 04:57 Absolute Neuts (auto) 2.7 10^3/uL (1.7-8.2) 06/25/19 04:57 Absolute Lymphs (auto) 1.3 10^3/uL (0.5-4.7) 06/25/19 04:57 Absolute Monos (auto) 0.3 10^3/uL (0.1-1.4) 06/25/19 04:57 Absolute Eos (auto) 0.3 10^3/uL (0.0-0.6) 06/25/19 04:57 Absolute Basos (auto) 0.0 10^3/uL (0.0-0.2) 06/25/19 04:57 Seg Neutrophils % 59.2 % (42-78) 06/25/19 04:57 PT 16.7 SEC (11.4-15.4) H 06/19/19 19:10 INR 1.34 06/19/19 19:10 APTT 24.3 SEC (23.5-35.8) 06/19/19 19:10 Sodium 140.0 mmol/L (137-145) 06/27/19 04:26 Potassium 3.6 mmol/L (3.6-5.0) 06/27/19 04:26 Chloride 107 mmol/L (98-107) 06/27/19 04:26 Carbon Dioxide 25 mmol/L (22-30) 06/27/19 04:26 Anion Gap 8 (5-19) 06/27/19 04:26 BUN 7 mg/dL (7-20) 06/27/19 04:26 Creatinine 1.43 mg/dL (0.52-1.25) H 06/27/19 04:26 Est GFR ( Amer) 45 (>60) L 06/27/19 04:26 Est GFR (Non-Af Amer) Cancelled 06/19/19 19:10 Est GFR (MDRD) Non-Af 37 (>60) L 06/27/19 04:26 Glucose 114 mg/dL (75-110) H 06/27/19 04:26 POC Glucose 121 mg/dL (70-110) H 06/27/19 08:31 Hemoglobin A1c % 6.8 % (4.7-6.0) H 06/20/19 03:14 Calcium 8.0 mg/dL (8.4-10.2) L 06/27/19 04:26 Phosphorus 4.8 mg/dL (2.5-4.5) H 06/19/19 21:20 Magnesium 2.2 mg/dL (1.6-2.3) 06/19/19 21:20 Total Bilirubin 0.4 mg/dL (0.2-1.3) 06/23/19 05:30 Direct Bilirubin 0.2 mg/dL (0.0-0.4) 06/23/19 05:30 Neonat Total Bilirubin Not Reportable 06/23/19 05:30 Neonat Direct Bilirubin Not Reportable 06/23/19 05:30 Neonat Indirect Bili Not Reportable 06/23/19 05:30 AST 58 U/L (14-36) H 06/23/19 05:30 ALT 57 U/L (<35) 06/23/19 05:30 Alkaline Phosphatase 85 U/L (38-126) 06/23/19 05:30 Ammonia < 8.7 umol/L (9-33) L 06/19/19 21:20 Creatine Kinase 143 U/L (30-135) H 06/20/19 10:15 CK-MB (CK-2) 3.85 ng/mL (<4.55) 06/20/19 10:15 Troponin I 0.013 ng/mL 06/20/19 10:15 NT-Pro-B Natriuret Pep 181 pg/mL (5-900) 06/19/19 21:20 Total Protein 7.0 g/dL (6.3-8.2) 06/23/19 05:30 Albumin 3.5 g/dL (3.5-5.0) 06/23/19 05:30 Triglycerides 228 mg/dL (<150) H 06/20/19 03:14 Cholesterol 122.60 mg/dL (0-200) 06/20/19 03:14 LDL Cholesterol Direct 53 mg/dL (<100) 06/20/19 03:14 VLDL Cholesterol 45.6 mg/dL (10-31) H 06/20/19 03:14 HDL Cholesterol 22 mg/dL (>40) L 06/20/19 03:14 Amylase 84 U/L (30-110) 06/19/19 21:20 Lipase 552.3 U/L (23-300) H 06/19/19 21:20 EGFR Cancelled 06/19/19 19:10 TSH 0.55 uIU/mL (0.47-4.68) 06/19/19 21:20 Free T4 1.50 ng/dL (0.78-2.19) 06/19/19 21:20 Urine Color YELLOW 06/20/19 16:08 Urine Appearance SLIGHTLY-CLOUDY 06/20/19 16:08 Urine pH 5.0 (5.0-9.0) 06/20/19 16:08 Ur Specific [place] 1.005 06/20/19 16:08 Urine Protein NEGATIVE mg/dL (NEGATIVE) 06/20/19 16:08 Urine Glucose (UA) NEGATIVE mg/dL (NEGATIVE) 06/20/19 16:08 Urine Ketones NEGATIVE mg/dL (NEGATIVE) 06/20/19 16:08 Urine Blood SMALL (NEGATIVE) H 06/20/19 16:08 Urine Nitrite NEGATIVE (NEGATIVE) 06/20/19 16:08 Urine Bilirubin NEGATIVE (NEGATIVE) 06/20/19 16:08 Urine Urobilinogen NEGATIVE mg/dL (<2.0) 06/20/19 16:08 Ur Leukocyte Esterase LARGE (NEGATIVE) H 06/20/19 16:08 Urine WBC (Auto) 23 /HPF 06/20/19 16:08 Urine RBC (Auto) 6 /HPF 06/20/19 16:08 Urine Bacteria (Auto) 3+ /HPF 06/20/19 16:08 Squamous Epi Cells Auto 4 /HPF 06/20/19 16:08 Amorphous Sediment Auto TRACE /HPF 06/19/19 16:00 Urine Mucus (Auto) RARE /LPF 06/20/19 16:08 Urine Ascorbic Acid NEGATIVE (NEGATIVE) 06/20/19 16:08 Urine Opiates Screen UNCONFIRMED POSITIVE 06/19/19 16:00 Urine Methadone Screen NEGATIVE 06/19/19 16:00 Ur Barbiturates Screen NEGATIVE 06/19/19 16:00 Ur Phencyclidine Scrn NEGATIVE 06/19/19 16:00 Ur Amphetamines Screen NEGATIVE 06/19/19 16:00 U Benzodiazepines Scrn NEGATIVE 06/19/19 16:00 Urine Cocaine Screen NEGATIVE 06/19/19 16:00 U Marijuana (THC) Screen NEGATIVE 06/19/19 16:00 06/19/19 06/19/19 06/20/19 19:10 21:20 03:14 CK-MB (CK-2) Cancelled 5.41 H 4.30 Troponin I Cancelled 0.013 0.017 NT-Pro-B Natriuret Pep Cancelled 181 06/20/19 10:15 CK-MB (CK-2) 3.85 Troponin I 0.013 NT-Pro-B Natriuret Pep Impressions: Chest X-Ray 06/20/19 00:00 IMPRESSION: NO ACUTE RADIOGRAPHIC FINDING IN THE CHEST. Stroke Is this a Stroke Patient?: No Acute Heart Failure - Is this a Heart Failure Patient?: No
== END 2019-06-27 12:15 | disposition home health service (06) | DRG 683 ==
LOC: ER 10:00 → EH 16:21 → 3S 19:39
PROVIDERS: ADMIT Internal Medicine; ATTEND Internal Medicine
DX: N17.9 Acute kidney failure, unspecified (principal); E87.1 Hypo-osmolality and hyponatremia; E87.2 Acidosis; I50.22 Chronic systolic (congestive) heart failure; R42 Dizziness and giddiness; E86.0 Dehydration; I48.91 Unspecified atrial fibrillation; E11.8 Type 2 diabetes mellitus with unspecified complications; I11.0 Hypertensive heart disease with heart failure; I25.10 Atherosclerotic heart disease of native coronary artery without angina pectoris; I25.5 Ischemic cardiomyopathy; E78.5 Hyperlipidemia, unspecified; K21.9 Gastro-esophageal reflux disease without esophagitis; K58.9 Irritable bowel syndrome, unspecified; E66.01 Morbid (severe) obesity due to excess calories; Z86.718 Personal history of other venous thrombosis and embolism; Z93.2 Ileostomy status; Z90.49 Acquired absence of other specified parts of digestive tract; Z79.84 Long term (current) use of oral hypoglycemic drugs; Z79.82 Long term (current) use of aspirin; Z79.4 Long term (current) use of insulin; Z79.891 Long term (current) use of opiate analgesic; Z79.51 Long term (current) use of inhaled steroids; Z79.899 Other long term (current) drug therapy
CPT/HCPCS: 36415; 36591; 71045; 80048; 80053; 80061; 80076; 80307; 81001; 82140; 82150; 82550; 82553; 82962; 83036; 83690; 83735; 83880; 84100; 84439; 84443; 84484; 85025; 85610; 85730; 87040; 87070; 87086; 87088; 87186; 96360; 96361; 99291; J1170; J1642; J1644; J1940; J3490; J7030; J7050

== ENCOUNTER 2019-07-05 08:44 | Outpatient (CLI) | payer MEDICARE, MEDICAID ==
[~2019-07-05 08:44] MED LIST changes: -1/2 NORMAL SALINE 500 ML IV PRN; +NORMAL SALINE 500 ML IV PRN
[2019-07-05 09:02] VITALS: BP 119/71
[2019-07-05 11:13] LABS: ABSOLUTE EOSINOPHILS # (AUTO) 0.1 10^3/uL (0.0-0.6); ABSOLUTE NEUT (AUTO) 10.8 10^3/uL (1.7-8.2); BASOPHILS % (AUTO) 0.3 % (0-2); EOSINOPHILS % (AUTO) 0.5 % (0-6); HEMATOCRIT 33.5 % (36.0-47.0); HEMOGLOBIN 11.2 g/dL (12.0-15.5); LYMPHOCYTES % (AUTO) 7.7 % (13-45); MEAN CORPUSCULAR HEMOGLOBIN 31.1 pg (27.0-33.4); MEAN CORPUSCULAR HGB CONC 33.3 g/dL (32.0-36.0); MEAN CORPUSCULAR VOLUME 93 fl (80-97); MONOCYTES % (AUTO) 7.7 % (3-13); PLATELET COUNT 219 10^3/uL (150-450); RED BLOOD COUNT 3.59 10^6/uL (3.72-5.28); RED CELL DISTRIBUTION WIDTH 17.5 % (11.5-14.0); SEGMENTED NEUTROPHILS % (AUTO) 83.8 % (42-78); TOTAL CELLS COUNTED % (AUTO) 100 %; WHITE BLOOD COUNT 12.9 10^3/uL (4.0-10.5)
[2019-07-05 11:38] LABS: ANION GAP 15 (5-19); BLOOD UREA NITROGEN 35 mg/dL (7-20); CALCIUM 9.2 mg/dL (8.4-10.2); CARBON DIOXIDE 16 mmol/L (22-30); CHLORIDE 97 mmol/L (98-107); GLUCOSE 156 mg/dL (75-110); POTASSIUM 5.1 mmol/L (3.6-5.0)
== END 2019-07-05 14:13 | disposition home or self-care (01) ==
LOC: II 08:44 → 5TH 08:46 → II 14:13
PROVIDERS: ATTEND Internal Medicine
PROC: 3E0437Z Introduction of Electrolytic and Water Balance Substance into Central Vein, Percutaneous Approach (ICD-10-PCS; principal; 2019-07-05)
DX: E86.0 Dehydration (principal); K94.19 Other complications of enterostomy
CPT/HCPCS: 36415; 85025; 80048; 96360; 96361; J1642

== ENCOUNTER 2019-07-09 16:53 | Inpatient (IN) | payer MEDICAID, MEDICARE ==
--- NOTE | 2019-07-09 17:23 | ER Document Report ---
ED Medical Screen (RME) - General Chief Complaint: General Weakness Stated Complaint: DIFFICULTY WALKING Time Seen by Provider: 07/09/19 17:19 Primary Care Provider: LISA MATA MD [Primary Care Provider] - Follow up as needed Mode of Arrival: Wheelchair Information source: Patient Notes: 63-year-old female presents to ED for complaint of weakness confusion can get her words out and feels like she is dehydrated since yesterday. She states her sister brought to brought her in here today. Patient is answering questions appropriate does not know the date but states she has not looked up to date she does notes fall and she is at [facility]. She states she had a "her colon busted "is why she has a colostomy. I have greeted and performed a rapid initial assessment of this patient. A comprehensive ED assessment and evaluation of the patient, analysis of test results and completion of medical decision making process will be conducted by an additional ED providers. TRAVEL OUTSIDE OF THE [place] IN LAST 30 DAYS: No - Related Data Allergies/Adverse Reactions: ciprofloxacin [From Cipro] Allergy (Severe, Verified 07/09/19 17:18) Hallucinations morphine [Morphine] Allergy (Unknown, Verified 07/09/19 17:18) Past Medical History - Social History Chew tobacco use (# tins/day): No Frequency of alcohol use: None Drug Abuse: None - Past Medical History Cardiac Medical History: Reports: Hx Atrial Fibrillation, Hx Coronary Artery Disease, Hx DVT, Hx Heart Attack - 2002, Hx Hypercholesterolemia, Hx Hypertension Pulmonary Medical History: Reports: Hx Pneumonia - 2006 Neurological Medical History: Endocrine Medical History: Reports: Hx Diabetes Mellitus Type 1, Hx Diabetes Mellitus Type 2 Renal/ Medical History: Reports: Hx Ovarian Cysts, Hx Renal Insufficiency. Denies: Hx Peritoneal Dialysis Malignancy Medical History: Reports: Hx Renal (Kidney) Cancer GI Medical History: Reports: Hx Gastroesophageal Reflux Disease, Hx Hiatal Hernia, Hx Irritable Bowel, Hx Ulcer Musculoskeltal Medical History: Reports Hx Arthritis - Back, Knees Psychiatric Medical History: Denies: Hx Depression Traumatic Medical History: Reports: Hx Fractures Past Surgical History: Reports: Hx Abdominal Surgery - COLOSTOMY. INTESTINAL RUPTURE, Hx Bowel Surgery - COLECTOMY/ileostomy, Hx Cardiac Catheterization, Hx Cardiac Surgery - STENTS, Hx Colostomy, Hx Coronary Stent, Hx Hysterectomy, Hx Ileostomy, Hx Orthopedic Surgery - L knee replacement, right ankle pin, Other - Tracheostomy 10 yrs ago - Immunizations Immunizations up to date: Yes Hx Diphtheria, Pertussis, Tetanus Vaccination: No Physical Exam - Vital signs Vitals: Temp Pulse Resp BP Pulse Ox 99.6 F 99 16 116/65 93 07/09/19 16:59 07/09/19 16:59 07/09/19 16:59 07/09/19 16:59 07/09/19 16:59 Course - Vital Signs Vital signs: Temp Pulse Resp BP Pulse Ox 99.6 F 99 16 116/65 93 07/09/19 16:59 07/09/19 16:59 07/09/19 16:59 07/09/19 16:59 07/09/19 16:59 Doctor's Discharge - Discharge Referrals: LISA MATA MD [Primary Care Provider] - Follow up as needed
--- NOTE | 2019-07-09 18:50 | RADIOLOGY REPORT (SQ) ---
EXAM DESCRIPTION: CHEST SINGLE VIEW COMPLETED DATE/TIME: 07/09/2019 6:31 pm REASON FOR STUDY: weakness; cough COMPARISON: Chest radiographs 06/20/2019 EXAM PARAMETERS: NUMBER OF VIEWS: One view. TECHNIQUE: Single frontal radiographic view of the chest acquired. RADIATION DOSE: NA LIMITATIONS: None. FINDINGS: LUNGS AND PLEURA: Increased perihilar interstitial markings. Patchy left lower lobe airsp judie opacities. Left pleural effusion. MEDIASTINUM AND HILAR STRUCTURES: No masses. Contour normal. HEART AND VASCULAR STRUCTURES: Cardiomegaly. BONES: No acute findings. HARDWARE: Unchanged positioning of right chest wall port catheter OTHER: No other significant finding. IMPRESSION: Left pleural effusion and patchy left lower lobe airspace opacities concerning for pneum onia. TECHNICAL DOCUMENTATION: JOB ID: [id number] [employer]- All Rights Reserved Reading location - IP/workstation name: [email or web address]
--- NOTE | 2019-07-09 18:54 | RADIOLOGY REPORT (SQ) ---
EXAM DESCRIPTION: CT HEAD WITHOUT COMPLETED DATE/TIME: 07/09/2019 6:31 pm REASON FOR STUDY: altered mental status, confusion COMPARISON: None. TECHNIQUE: Axial images acquired through the brain without intravenous contrast. Images reviewed wi th bone, brain and subdural windows. Additional sagittal and coronal reconstructions were generated. Images stored on PACS. All CT scanners at this facility use dose modulation, iterative reconstruction, and/or weight based d osing when appropriate to reduce radiation dose to as low as reasonably achievable (ALARA). [facility]: Dose Right [facility]: CareDose [facility]: Dose Right [facility]: Teradose 4D [facility]: Smart Xylitol [place] RADIATION DOSE: CT Rad equipment meets quality standard of care and radiation dose reduction techniq ues were employed. CTDIvol: 53.2 mGy. DLP: 1097 mGy-cm. mGy. LIMITATIONS: None. FINDINGS: VENTRICLES: Normal size and contour. CEREBRUM: No masses. No hemorrhage. No midline shift. No evidence for acute infarction. Few scatte red areas of low density in the white matter most likely chronic small vessel ischemic changes. CEREBELLUM: No masses. No hemorrhage. No alteration of density. No evidence for acute infarction. EXTRAAXIAL SPACES: No abnormal fluid collections. Partially empty sella. No masses. ORBITS AND GLOBE: No intra- or extraconal masses. Normal contour of globe without masses. CALVARIUM: No fracture. PARANASAL SINUSES: No fluid or mucosal thickening. SOFT TISSUES: No mass or hematoma. OTHER: No other significant finding. IMPRESSION: CHRONIC MICROVASCULAR ISCHEMIA. NO ACUTE IMAGING FINDINGS IN THE BRAIN. EVIDENCE OF ACUTE STROKE: NO. COMMENT: Quality ID # [id number]: Final reports with documentation of one or more dose reduction techniques (e.g., Automated exposure control, adjustment of the mA and/or kV according to patient size, use of iterative reconstruction technique) TECHNICAL DOCUMENTATION: JOB ID: [id number] [employer]- All Rights Reserved Reading location - IP/workstation name: [email or web address]
[2019-07-09] MEDS ORDERED: FENTANYL CITRATE INJ/PF 100 MCG/2 ML AMPUL IV ONE (19:36)
--- NOTE | 2019-07-09 20:10 | ER Document Report ---
ED General - General Chief Complaint: General Weakness Stated Complaint: DIFFICULTY WALKING Time Seen by Provider: 07/09/19 17:19 Mode of Arrival: Wheelchair Notes: Patient is 63-year-old female presents emergency department with a chief complaint of confusion. Patient was at home and according to her sister, she became confused and not acting quite right. This was around 1400 this evening. Patient denies any fever. Patient is able to converse today and expresses how she feels. She denies any shortness of breath, difficulty breathing, chest pain, abdominal pain, or any other symptoms. TRAVEL OUTSIDE OF THE [place] IN LAST 30 DAYS: No - Related Data Allergies/Adverse Reactions: ciprofloxacin [From Cipro] Allergy (Severe, Verified 07/09/19 17:18) Hallucinations morphine [Morphine] Allergy (Unknown, Verified 07/09/19 17:18) Past Medical History - General Information source: Patient - Social History Smoking Status: Never Smoker Chew tobacco use (# tins/day): No Frequency of alcohol use: None Drug Abuse: None Family History: Reviewed & Not Pertinent, Hypertension Patient has suicidal ideation: No Patient has homicidal ideation: No - Past Medical History Cardiac Medical History: Reports: Hx Atrial Fibrillation, Hx Coronary Artery Disease, Hx DVT, Hx Heart Attack - 2002, Hx Hypercholesterolemia, Hx Hypertension Pulmonary Medical History: Reports: Hx Pneumonia - 2006 Neurological Medical History: Endocrine Medical History: Reports: Hx Diabetes Mellitus Type 1, Hx Diabetes Mellitus Type 2 Renal/ Medical History: Reports: Hx Ovarian Cysts, Hx Renal Insufficiency. Denies: Hx Peritoneal Dialysis Malignancy Medical History: Reports: Hx Renal (Kidney) Cancer GI Medical History: Reports: Hx Gastroesophageal Reflux Disease, Hx Hiatal Hernia, Hx Irritable Bowel, Hx Ulcer Musculoskeletal Medical History: Reports Hx Arthritis - Back, Knees Psychiatric Medical History: Denies: Hx Depression Traumatic Medical History: Reports: Hx Fractures Past Surgical History: Reports: Hx Abdominal Surgery - COLOSTOMY. INTESTINAL RUPTURE, Hx Bowel Surgery - COLECTOMY/ileostomy, Hx Cardiac Catheterization, Hx Cardiac Surgery - STENTS, Hx Colostomy, Hx Coronary Stent, Hx Hysterectomy, Hx Ileostomy, Hx Orthopedic Surgery - L knee replacement, right ankle pin, Other - Tracheostomy 10 yrs ago - Immunizations Immunizations up to date: Yes Hx Diphtheria, Pertussis, Tetanus Vaccination: No Hx Pneumococcal Vaccination: 09/19/13 Review of Systems - Review of Systems Notes: REVIEW OF SYSTEMS: CONSTITUTIONAL : Denies recent illness. Denies recent unintentional weight loss. Denies fever, chills, or sweats. EENT: Denies eye, ear, throat, or mouth pain, discharge, or symptoms. Denies nasal or sinus congestion. CARDIOVASCULAR: Denies chest pain. RESPIRATORY: Denies shortness of breath, cough, congestion, difficulty breathing, or wheezing. GASTROINTESTINAL: Denies nausea, vomiting, and diarrhea. Denies abdominal pain. Denies constipation. GENITOURINARY: Denies difficulty urinating, burning, blood in urine, urgency or frequency. MUSCULOSKELETAL: Denies neck and back pain. Denies joint pain or swelling. SKIN: Denies rash, itchiness, or lesions HEMATOLOGIC : Denies easy bruising or bleeding. LYMPHATIC: Denies swollen, painful, enlarged glands. NEUROLOGICAL: See HPI. PSYCHIATRIC: Denies stress, anxiety, alteration in sleep patterns, or depression. All other systems reviewed and negative. Physical Exam - Vital signs Vitals: Temp Pulse Resp BP Pulse Ox 99.6 F 99 16 116/65 93 07/09/19 16:59 07/09/19 16:59 07/09/19 16:59 07/09/19 16:59 07/09/19 16:59 - Notes Notes: PHYSICAL EXAMINATION: GENERAL: Appears obese, dehydrated, no acute distress. HEAD: Normocephalic, atraumatic. EYES: PERRL, conjunctiva normal, all extraocular movements intact, sclera nonicteric ENT: Very dry mucous membranes. NECK: Supple, no noticeable swelling, redness, rash. Normal range of motion. LUNGS: Diminished breath sounds throughout. CARDIOVASCULAR: S1-S2, regular rate, regular rhythm. Radial pulses 2+, normal. ABDOMEN: Normoactive bowel sounds. Soft, nontender, no guarding, no rebound tenderness, and no masses palpated. Ostomy noted. EXTREMITIES: Normal strength and range of motion, no pitting or edema. No cyanosis. NEUROLOGICAL: Moves all extremities upon command. Strength 5/5 in all extr emities. PSYCH: Normal mood, normal affect. SKIN: Warm, dry. No rash, lesions, ulcerations noted. Normal skin turgor. Course - Re-evaluation Re-evalutation: 07/09/19 22:20 Patient has a leukocytosis of 18,400. He also has a bandemia 8. Patient is anemic, but this is most likely an anemia of chronic disease. Patient has a m etabolic acidosis with a pH of 7.24 and a bicarb of 17.8. Chemistries show that he is dehydrated. Her CO2 is 17. Patient's kidney function has progressively worsened in a short amount of time. On June 27, her creatinine was 1.43. On July 05, her creatinine was 3.93, and now her creatinine is 5.87. Patient has a large amount of leukocytes in her urine. Her chest x-ray shows pneumonia. He has a head shows microvascular ischemia, no acute stroke noted. No neurological deficits noted on physical exam. Patient is able to compensate with me with no alteration in speech. 07/09/19 22:44 Patient is here for severe dehydration, acute kidney injury, urinary tract infection, and pneumonia. I was able to speak with Dr. Lopez, the patient be admitted to the telemetry floor. - Vital Signs Vital signs: Temp Pulse Resp BP Pulse Ox 98.1 F 88 19 119/65 98 07/11/19 07:54 07/11/19 14:00 07/11/19 07:54 07/11/19 07:54 07/11/19 07:54 - Laboratory Result Diagrams: 07/09/19 20:05 07/09/19 20:05 Laboratory results interpreted by me: 07/09/19 07/09/19 07/09/19 20:05 20:05 20:05 WBC 18.4 H RBC 3.68 L Hgb 11.3 L Hct 34.2 L RDW 17.4 H Band Neutrophils % 8 H Abs Neuts (Manual) 14.4 H Abs Monocytes (Manual) 1.5 H PT 16.0 H APTT 39.6 H VBG pH VBG HCO3 Sodium 132.1 L Carbon Dioxide 17 L BUN 53 H Creatinine 5.87 H Est GFR ( Amer) 9 L Est GFR (MDRD) Non-Af 7 L 07/09/19 20:05 WBC RBC Hgb Hct RDW Band Neutrophils % Abs Neuts (Manual) Abs Monocytes (Manual) PT APTT VBG pH 7.24 L VBG HCO3 17.8 L Sodium Carbon Dioxide BUN Creatinine Est GFR ( Amer) Est GFR (MDRD) Non-Af Discharge - Discharge Clinical Impression: Metabolic acidosis, Acute kidney injury Pneumonia Qualifiers: Pneumonia type: due to unspecified organism Laterality: unspecified laterality Lung location: unspecified part of lung Qualified Code(s): J18.9 - Pneumonia, unspecified organism Condition: Fair Disposition: ADMITTED INPATIENT Admitting Provider: [facility] Unit Admitted: Telemetry
[2019-07-09 20:25] LABS: VENOUS BLOOD BASE EXCESS -9.3 mmol/L; VENOUS BLOOD HCO3 17.8 mmol/L (20-32); VENOUS BLOOD PH 7.24 (7.30-7.42)
[2019-07-09 20:28] LABS: HEMATOCRIT 34.2 % (36.0-47.0); HEMOGLOBIN 11.3 g/dL (12.0-15.5); MEAN CORPUSCULAR HEMOGLOBIN 30.8 pg (27.0-33.4); MEAN CORPUSCULAR HGB CONC 33.1 g/dL (32.0-36.0); MEAN CORPUSCULAR VOLUME 93 fl (80-97); PLATELET COUNT 281 10^3/uL (150-450); RED BLOOD COUNT 3.68 10^6/uL (3.72-5.28); RED CELL DISTRIBUTION WIDTH 17.4 % (11.5-14.0); WHITE BLOOD COUNT 18.4 10^3/uL (4.0-10.5)
[2019-07-09 20:35] LABS: INTERNATIONAL RATION (INR) 1.27
[2019-07-09 20:36] LABS: PARTIAL THROMBOPLASTIN TIME 39.6 SEC (23.5-35.8)
[2019-07-09 20:41] LABS: ALKALINE PHOSPHATASE 102 U/L (38-126); ANION GAP 14 (5-19); ASPARTATE AMINO TRANSFERASE 36 U/L (14-36); BILIRUBIN,DIRECT 0.3 mg/dL (0.0-0.4); BILIRUBIN,TOTAL 0.4 mg/dL (0.2-1.3); BLOOD UREA NITROGEN 53 mg/dL (7-20); CALCIUM 9.5 mg/dL (8.4-10.2); CARBON DIOXIDE 17 mmol/L (22-30); CHLORIDE 101 mmol/L (98-107); CREATINE KINASE 72 U/L (30-135); GLUCOSE 106 mg/dL (75-110); POTASSIUM 4.6 mmol/L (3.6-5.0); TOTAL PROTEIN 7.9 g/dL (6.3-8.2)
[2019-07-09 20:54] LABS: ABSOLUTE LYMPHOCYTES# (MANUAL) 2.4 10^3/uL (0.5-4.7); ABSOLUTE MONOCYTES # (MANUAL) 1.5 10^3/uL (0.1-1.4); ANISOCYTOSIS 1+; BAND NEUTROPHILS % (MANUAL) 8 % (3-5); BASOPHILS % (MANUAL) 0 % (0-2); EOSINOPHILS % (MANUAL) 1 % (0-6); LYMPHOCYTES % (MANUAL) 13 % (13-45); MONOCYTES % (MANUAL) 8 % (3-13); SEGMENTED NEUTROPHILS % (MAN) 70 % (42-78); TOTAL CELLS COUNTED 100
[2019-07-09 20:55] LABS: PLATELET COMMENT ADEQUATE
--- NOTE | 2019-07-09 21:41 | EKG REPORT ---
SEVERITY:- ABNORMAL ECG - SINUS RHYTHM FIRST DEGREE AV BLOCK LEFT VENTRICULAR HYPERTROPHY PROBABLE INFERIOR INFARCT, OLD : Confirmed by: Brody Guajardo MD 09-Jul-2019 21:41:28
[2019-07-09] MEDS ORDERED: NORMAL SALINE 1000 ML 1,000 ML IV ONE ×2 (22:26→22:42)
[2019-07-09] MEDS ORDERED: AZITHROMYCIN INJ 500 MG VIAL IV ONE (22:37)
[2019-07-09] MEDS ORDERED: CEFTRIAXONE INJ 1000 MG VIAL IV ONE (22:38)
[2019-07-10 00:38] LABS: APPEARANCE,URINE SLIGHTLY-CLOUDY; BILIRUBIN,URINE NEGATIVE (NEGATIVE); COLOR,URINE YELLOW; GLUCOSE, URINE NEGATIVE (NEGATIVE); KETONES,URINE NEGATIVE (NEGATIVE); PROTEIN,URINE NEGATIVE (NEGATIVE); URINE SPECIFIC GRAVITY 1.013; UROBILINOGEN,URINE NEGATIVE mg/dL (<2.0)
[2019-07-10] MEDS ORDERED: ACETAMINOPHEN 325 MG TABLET PO PRN ×2 (02:34→13:54)
[2019-07-10] MEDS: NORMAL SALINE 1000 ML 1,000 ML IV PRN ×3 (03:06→21:59)
[2019-07-10] MEDS ORDERED: DEXTROSE 40% GEL 15 GM TUBE X 2 PO PRN (05:00)
[2019-07-10] MEDS ORDERED: DEXTROSE 40% GEL 15 GM TUBE PO PRN (05:00)
[2019-07-10] MEDS ORDERED: GLUCAGON,HUMAN RECOMB 1 MG INJ IM PRN (05:00)
[2019-07-10] MEDS ORDERED: DEXTROSE 50%-WATER SYRINGE 12.5 GM/25 ML DOSE IV PRN (05:00)
[2019-07-10] MEDS ORDERED: DEXTROSE 50%-WATER SYRINGE 25 GM/50 ML DOSE IV PRN (05:00)
[2019-07-10] MEDS: PANTOPRAZOLE SODIUM 40 MG TABLET.DR PO SCH (05:58)
[2019-07-10] MEDS: INSULIN LISPRO 100 UNIT/ML 3 ML VIAL SUBCUT SCH ×4 (09:26→21:53)
[2019-07-10] MEDS ORDERED: ENOXAPARIN SODIUM INJ 40 MG/0.4 ML DISP.SYRIN SUBCUT SCH (10:00)
[2019-07-10 10:29] LABS: INTERNATIONAL RATION (INR) 1.28; PROTHROMBIN TIME 16.1 SEC (11.4-15.4)
[2019-07-10 10:30] LABS: PARTIAL THROMBOPLASTIN TIME 31.8 SEC (23.5-35.8)
[2019-07-10 10:49] LABS: TOTAL PROTEIN 6.6 g/dL (6.3-8.2)
[2019-07-10] MEDS: HYDROMORPHONE HCL INJ/PF 2 MG/ML AMPULE IV PRN ×2 (14:57→21:52)
--- NOTE | 2019-07-10 15:11 | RADIOLOGY REPORT (SQ) ---
EXAM DESCRIPTION: U/S CHEST COMPLETED DATE/TIME: 07/10/2019 2:40 pm REASON FOR STUDY: pleural effusion COMPARISON: None. TECHNIQUE: Dynamic and static grayscale images acquired of the localized site of clinical concern an d recorded on PACS. Additional selected color Doppler and spectral images recorded. SITE OF CONCERN: Left pleural space. LIMITATIONS: None. FINDINGS: No significant pleural fluid is identified. IMPRESSION: No effusion visualized. TECHNICAL DOCUMENTATION: JOB ID: [id number] [employer]- All Rights Reserved Reading location - IP/workstation name: [email or web address]
[2019-07-10] MEDS: COLCHICINE 0.6 MG TABLET PO SCH (18:37)
--- NOTE | 2019-07-10 21:03 | PDOC H&P ---
History of Present Illness Admission Date/PCP: 07/09/19 22:54 LISA MATA MD History of Present Illness: RANDEE VELÁSQUEZ is a 63 year old female, She came to the emergency room last night for evaluation of confusion, the history was that she became confused and not acting right but when she arrived in the emergency room she was oriented was able to endorse her symptoms, there was no shortness of breath, there is no chest pain no abdominal pain. She has a history of high output ileostomy bag, CAD, type 2 diabetes mellitus, history of total colectomy. In the emergency room she was found to have leukocytosis, WBC 18,000 with a left shift also found was serum creatinine 5.87 chest x-ray showed pneumonia with left lower lobe consolidation she also had a low-grade temperature, 99.6 on arrival in the ER because of all these constellation of signs and symptoms, hospital admission was advised by the ED physician. Past Medical History Cardiac Medical History: Reports: Atrial Fibrillation, Coronary Artery Disease, DVT, Myocardial Infarction - 2002, Hyperlipidema, Hypertension Pulmonary Medical History: Reports: Pneumonia - 2006 Neurological Medical History: Endocrine Medical History: Reports: Diabetes Mellitus Type 2 Renal/ Medical History: Reports: Chronic Kidney Disease Malignancy Medical History: Reports: Renal (Kidney) Cancer GI Medical History: Reports: Gastroesophageal Reflux Disease, Hiatal Hernia Musculoskeltal Medical History: Reports: Arthritis - Back, Knees Hematology: Reports: Anemia Past Surgical History Past Surgical History: Reports: Cardiac Catheterization, Colostomy, Coronary Stent, Hysterectomy, Ileostomy, Orthopedic Surgery - L knee replacement, right ankle pin, Other - Tracheostomy 10 yrs ago Social History Smoking Status: Never Smoker Electronic Cigarette use?: No Frequency of Alcohol Use: None Hx Recreational Drug Use: No Drugs: None Hx Prescription Drug Abuse: No Family History Family History: Reviewed & Not Pertinent, Hypertension Parental Family History Reviewed: Yes Children Family History Reviewed: Yes Sibling(s) Family History Reviewed.: Yes Medication/Allergy Home Medications: Albuterol Sulfate [Albuterol Sulfate Hfa] 2 puff IH Q4HP PRN 06/19/19 Allopurinol [Zyloprim 100 mg Tablet] 100 mg PO DAILY 06/19/19 Calcitriol [Rocaltrol 0.5 mcg Capsule] 0.5 mcg PO DAILY 06/19/19 Clobetasol Propionate [Temovate 0.05% Cream 15 gm] 1 applic TOP BID 06/19/19 Clotrimazole/Betamethasone Dip [Lotrisone Cream 15 gm] 1 applic TOP BID 06/19/19 Colchicine [Colcrys 0.6 mg Tablet] 0.6 mg PO DAILY 06/19/19 Dapagliflozin Propanediol [Farxiga] 5 mg PO DAILY 06/19/19 Fluconazole [Diflucan] 150 mg PO FR@1000 06/19/19 Gabapentin [Neurontin] 600 mg PO Q6 06/19/19 Loperamide HCl [Imodium 2 mg Capsule] 2 mg PO .PC EACH LOOSE STOOL 06/19/19 Metoprolol Succinate [Toprol Xl] 200 mg PO DAILY 06/19/19 Nystatin [Mycostatin Topical Powder 15 gm] 1 applic TOP BID 06/19/19 Oxycodone HCl [Oxycodone HCl 10 MG Tablet] 10 mg PO Q8HP PRN 06/19/19 Sitagliptin Phosphate [Januvia 50 mg Tablet] 50 mg PO DAILY 06/19/19 Allergies/Adverse Reactions: ciprofloxacin [From Cipro] Allergy (Severe, Verified 07/09/19 17:18) Hallucinations morphine [Morphine] Allergy (Unknown, Verified 07/09/19 17:18) Review of Systems Constitutional: PRESENT: fatigue Cardiovascular: PRESENT: palpitations Respiratory: PRESENT: cough, sputum Gastrointestinal: PRESENT: bloating Neurological: PRESENT: convulsions, paresthesias Physical Exam Vital Signs: Temp Pulse Resp BP Pulse Ox 98.3 F 84 16 117/68 99 07/10/19 19:04 07/10/19 19:04 07/10/19 19:04 07/10/19 19:04 07/10/19 19:04 Intake & Output 07/09/19 07/10/19 07/11/19 06:59 06:59 06:59 Intake Total 2360 1595 Output Total 400 Balance 2360 1195 Weight 115.6 kg General appearance: PRESENT: mild distress Head exam: PRESENT: atraumatic, normocephalic Eye exam: PRESENT: PERRLA Neck exam: PRESENT: full ROM Respiratory exam: PRESENT: rhonchi Cardiovascular exam: PRESENT: RRR, +S1, +S2 Vascular exam: PRESENT: normal capillary refill GI/Abdominal exam: PRESENT: normal bowel sounds, soft Rectal exam: PRESENT: deferred Neurological exam: PRESENT: alert Psychiatric exam: PRESENT: appropriate affect, normal mood Skin exam: PRESENT: dry, intact, warm Results Laboratory Results: 07/09/19 20:05 07/09/19 20:05 07/09/19 07/09/19 07/10/19 20:05 23:30 09:35 WBC 18.4 H RBC 3.68 L Hgb 11.3 L Hct 34.2 L MCV 93 MCH 30.8 MCHC 33.1 RDW 17.4 H Plt Count 281 Total Protein 6.6 Urine Color YELLOW Urine Appearance SLIGHTLY-CLOUDY Urine pH 5.0 Ur Specific [place] 1.013 Urine Protein NEGATIVE Urine Glucose (UA) NEGATIVE Urine Ketones NEGATIVE Urine Blood NEGATIVE 07/09/19 07/09/19 20:05 20:05 Creatine Kinase 72 CK-MB (CK-2) 1.77 Impressions: Head CT 07/09/19 17:24 IMPRESSION: CHRONIC MICROVASCULAR ISCHEMIA. NO ACUTE IMAGING FINDINGS IN THE BRAIN. EVIDENCE OF ACUTE STROKE: NO. Chest X-Ray 07/09/19 18:16 IMPRESSION: Left pleural effusion and patchy left lower lobe airspace opacities concerning for pneumonia. Chest Ultrasound 07/10/19 08:49 IMPRESSION: No effusion visualized. Assessment & Plan - Diagnosis (1) Healthcare-associated pneumonia Is this a current diagnosis for this admission?: Yes Plan: She is admitted for the management of pneumonia (2) Acute kidney injury Is this a current diagnosis for this admission?: Yes Plan: This most likely from prerenal azotemia (3) Dehydration Is this a current diagnosis for this admission?: Yes
[2019-07-10] MEDS ORDERED: ALBUTEROL SULFATE HFA (90 MCG/PUFF) 200 PUFF/8.5 GM MDI IH PRN (21:05)
[2019-07-10] MEDS ORDERED: (PENDING PHARMACY ID) (Dapagliflozin Propanediol [Farxiga] 5 MG) PO SCH (21:15)
[2019-07-10] MEDS ORDERED: COLCHICINE 0.6 MG TABLET PO SCH (21:15)
[2019-07-10] MEDS ORDERED: (PENDING PHARMACY ID) (Calcitriol [Rocaltrol 0.5 Mcg Capsule] 0.5 MCG) PO SCH (21:15)
[2019-07-10] MEDS ORDERED: (PENDING PHARMACY ID) (Metoprolol Succinate [Toprol Xl] 200 MG) PO SCH (21:15)
[2019-07-10] MEDS ORDERED: OXYCODONE HCL IR 5 MG TABLET PO PRN (21:36)
[2019-07-10] MEDS: CEFTRIAXONE 1 GM/D5W RTU 1 GM/50 ML RTUPB IV SCH (22:00)
[2019-07-10] MEDS: HEPARIN SOD (PORCINE) 5,000 UNIT/ML 1 ML VIAL SUBCUT SCH (22:04)
[2019-07-10] MEDS: ALLOPURINOL 100 MG TABLET PO SCH (22:04)
[2019-07-10] MEDS: SITAGLIPTIN PHOSPHATE 50 MG TABLET PO SCH (22:04)
[2019-07-10] MEDS: NYSTATIN TOPICAL POWDER 15 GM TOP SCH (22:05)
[2019-07-10] MEDS: CALCITRIOL 0.25 MCG CAPSULE PO SCH (22:05)
[2019-07-10] MEDS: GABAPENTIN 300 MG CAPSULE PO SCH (22:05)
[2019-07-10] MEDS: AZITHROMYCIN 500 MG in DEXTROSE 5%-WATER 250 ML IV SCH (22:59)
[2019-07-10] MEDS: METOPROLOL SUCCINATE 50 MG TAB.SR.24H PO SCH (23:00)
[2019-07-11] MEDS: HYDROMORPHONE HCL INJ/PF 2 MG/ML AMPULE IV PRN ×5 (03:54→22:05)
[2019-07-11] MEDS: PANTOPRAZOLE SODIUM 40 MG TABLET.DR PO SCH (05:49)
[2019-07-11] MEDS: HEPARIN SOD (PORCINE) 5,000 UNIT/ML 1 ML VIAL SUBCUT SCH ×3 (05:49→22:06)
[2019-07-11] MEDS: GABAPENTIN 300 MG CAPSULE PO SCH ×4 (05:49→23:13)
[2019-07-11] MEDS: METOPROLOL SUCCINATE 50 MG TAB.SR.24H PO SCH (09:31)
[2019-07-11] MEDS: CALCITRIOL 0.25 MCG CAPSULE PO SCH (09:32)
[2019-07-11] MEDS: ALLOPURINOL 100 MG TABLET PO SCH (09:32)
[2019-07-11] MEDS: SITAGLIPTIN PHOSPHATE 50 MG TABLET PO SCH (09:32)
[2019-07-11] MEDS: COLCHICINE 0.6 MG TABLET PO SCH ×2 (09:32→17:45)
[2019-07-11] MEDS: NORMAL SALINE 1000 ML 1,000 ML IV PRN ×2 (09:33→18:24)
[2019-07-11] MEDS ORDERED: ENOXAPARIN SODIUM INJ 30 MG/0.3 ML DISP.SYRIN SUBCUT SCH (10:00)
[2019-07-11] MEDS: INSULIN LISPRO 100 UNIT/ML 3 ML VIAL SUBCUT SCH ×4 (12:39→22:11)
[2019-07-11] MEDS: NYSTATIN TOPICAL POWDER 15 GM TOP SCH ×2 (12:59→17:47)
--- NOTE | 2019-07-11 21:21 | PDOC PROGRESS REPORT ---
Subjective Progress Note for:: 07/11/19 Subjective:: Patient seen by the bedside, she was admitted for pneumonia, she is coughing a lot today Reason For Visit: METABOLIC ACIDOSIS,ACUTE KIDNEY INJURY,PNEUMONIA Physical Exam Vital Signs: Temp Pulse Resp BP Pulse Ox 98.2 F 78 16 137/77 H 99 07/11/19 19:05 07/11/19 19:05 07/11/19 19:05 07/11/19 19:05 07/11/19 19:05 Intake & Output 07/10/19 07/11/19 07/12/19 06:59 06:59 06:59 Intake Total 2360 3131 2605 Output Total 1050 Balance 2360 2081 2605 Weight 115.6 kg 115.9 kg General appearance: PRESENT: no acute distress Eye exam: PRESENT: PERRLA Respiratory exam: PRESENT: rhonchi Cardiovascular exam: PRESENT: +S1, +S2 GI/Abdominal exam: PRESENT: soft Neurological exam: PRESENT: alert Results Laboratory Results: 07/09/19 20:05 07/09/19 20:05 07/09/19 07/09/19 20:05 20:05 Creatine Kinase 72 CK-MB (CK-2) 1.77 Impressions: Head CT 07/09/19 17:24 IMPRESSION: CHRONIC MICROVASCULAR ISCHEMIA. NO ACUTE IMAGING FINDINGS IN THE BRAIN. EVIDENCE OF ACUTE STROKE: NO. Chest X-Ray 07/09/19 18:16 IMPRESSION: Left pleural effusion and patchy left lower lobe airspace opacities concerning for pneumonia. Chest Ultrasound 07/10/19 08:49 IMPRESSION: No effusion visualized. Assessment & Plan - Diagnosis (1) Healthcare-associated pneumonia Is this a current diagnosis for this admission?: Yes Plan: Continue IV antibiotic (2) Acute kidney injury Is this a current diagnosis for this admission?: Yes (3) Dehydration Is this a current diagnosis for this admission?: Yes (4) T2DM (type 2 diabetes mellitus) Qualifiers: Diabetes mellitus correction insulin use: with supervisor intermediates use Diabetes mellitus complication status: with neurologic complications Diabetes mellitus complication detail: with polyneuropathy Qualified Code(s): E11.42 - Type 2 diabetes mellitus with diabetic polyneuropathy; Z79.4 - senior living (current) use of insulin Is this a current diagnosis for this admission?: Yes - Time Time Spent with patient: 35 or more minutes Level of Care: IMCU
[2019-07-11] MEDS: CEFTRIAXONE 1 GM/D5W RTU 1 GM/50 ML RTUPB IV SCH (22:06)
[2019-07-11] MEDS: AZITHROMYCIN 500 MG in DEXTROSE 5%-WATER 250 ML IV SCH (22:06)
[2019-07-11 23:40] LABS: ABSOLUTE EOSINOPHILS # (AUTO) 0.6 10^3/uL (0.0-0.6); ABSOLUTE LYMPHOCYTES (AUTO) 1.3 10^3/uL (0.5-4.7); ABSOLUTE MONOCYTES (AUTO) 0.9 10^3/uL (0.1-1.4); BASOPHILS % (AUTO) 0.3 % (0-2); EOSINOPHILS % (AUTO) 6.2 % (0-6); HEMATOCRIT 31.2 % (36.0-47.0); HEMOGLOBIN 10.3 g/dL (12.0-15.5); LYMPHOCYTES % (AUTO) 13.4 % (13-45); MEAN CORPUSCULAR HEMOGLOBIN 30.6 pg (27.0-33.4); MEAN CORPUSCULAR VOLUME 93 fl (80-97); MONOCYTES % (AUTO) 9.5 % (3-13); PLATELET COUNT 233 10^3/uL (150-450); RED BLOOD COUNT 3.36 10^6/uL (3.72-5.28); RED CELL DISTRIBUTION WIDTH 17.9 % (11.5-14.0); SEGMENTED NEUTROPHILS % (AUTO) 70.6 % (42-78); TOTAL CELLS COUNTED % (AUTO) 100 %; WHITE BLOOD COUNT 9.8 10^3/uL (4.0-10.5)
[2019-07-12 00:02] LABS: ALBUMIN 2.8 g/dL (3.5-5.0); ALKALINE PHOSPHATASE 77 U/L (38-126); ANION GAP 12 (5-19); ASPARTATE AMINO TRANSFERASE 29 U/L (14-36); BILIRUBIN,DIRECT 0.2 mg/dL (0.0-0.4); BILIRUBIN,TOTAL 0.3 mg/dL (0.2-1.3); BLOOD UREA NITROGEN 33 mg/dL (7-20); CALCIUM 8.9 mg/dL (8.4-10.2); CARBON DIOXIDE 16 mmol/L (22-30); CHLORIDE 114 mmol/L (98-107); GLUCOSE 123 mg/dL (75-110); POTASSIUM 4.4 mmol/L (3.6-5.0); TOTAL PROTEIN 6.3 g/dL (6.3-8.2)
[2019-07-12] MEDS: GABAPENTIN 300 MG CAPSULE PO SCH ×4 (05:08→23:40)
[2019-07-12] MEDS: PANTOPRAZOLE SODIUM 40 MG TABLET.DR PO SCH (05:08)
[2019-07-12] MEDS: HYDROMORPHONE HCL INJ/PF 2 MG/ML AMPULE IV PRN ×5 (05:08→23:34)
[2019-07-12] MEDS: HEPARIN SOD (PORCINE) 5,000 UNIT/ML 1 ML VIAL SUBCUT SCH ×3 (05:08→21:07)
[2019-07-12] MEDS: NORMAL SALINE 1000 ML 1,000 ML IV PRN (07:53)
--- NOTE | 2019-07-12 08:15 | RADIOLOGY REPORT (SQ) ---
EXAM DESCRIPTION: CHEST SINGLE VIEW COMPLETED DATE/TIME: 07/11/2019 11:03 pm REASON FOR STUDY: pneumonia COMPARISON: 07/09/2019 NUMBER OF VIEWS: One view. TECHNIQUE: Single frontal radiographic view of the chest acquired. LIMITATIONS: None. FINDINGS: LUNGS AND PLEURA: Persistent small left effusion and minimal left basilar air space diseas e. Findings are improved from previous exam. There is focal airspace disease in the left upper lobe probably atelectasis. No pneumothorax. MEDIASTINUM AND HILAR STRUCTURES: No masses. Contour normal. HEART AND VASCULAR STRUCTURES: Heart size is stable. BONES: No acute findings. HARDWARE: [id number] remains in place. OTHER: No other significant finding. IMPRESSION: Persistent small left effusion and left basilar airspace disease. Findings are improved when compared to prior study. TECHNICAL DOCUMENTATION: JOB ID: [id number] Other Machine- All Rights Reserved Reading location - IP/workstation name: [email or web address]
[2019-07-12] MEDS: INSULIN LISPRO 100 UNIT/ML 3 ML VIAL SUBCUT SCH ×4 (09:05→21:06)
[2019-07-12] MEDS: COLCHICINE 0.6 MG TABLET PO SCH ×2 (09:58→17:17)
[2019-07-12] MEDS: METOPROLOL SUCCINATE 50 MG TAB.SR.24H PO SCH (09:59)
[2019-07-12] MEDS: ALLOPURINOL 100 MG TABLET PO SCH (10:00)
[2019-07-12] MEDS: CALCITRIOL 0.25 MCG CAPSULE PO SCH (10:00)
[2019-07-12] MEDS: SITAGLIPTIN PHOSPHATE 50 MG TABLET PO SCH (10:00)
[2019-07-12 13:02] LABS: ABSOLUTE EOSINOPHILS # (AUTO) 0.6 10^3/uL (0.0-0.6); ABSOLUTE LYMPHOCYTES (AUTO) 1.4 10^3/uL (0.5-4.7); ABSOLUTE MONOCYTES (AUTO) 1.1 10^3/uL (0.1-1.4); ABSOLUTE NEUT (AUTO) 6.5 10^3/uL (1.7-8.2); BASOPHILS % (AUTO) 0.3 % (0-2); EOSINOPHILS % (AUTO) 6.4 % (0-6); HEMOGLOBIN 10.5 g/dL (12.0-15.5); LYMPHOCYTES % (AUTO) 14.2 % (13-45); MEAN CORPUSCULAR HEMOGLOBIN 30.7 pg (27.0-33.4); MEAN CORPUSCULAR HGB CONC 32.9 g/dL (32.0-36.0); MEAN CORPUSCULAR VOLUME 93 fl (80-97); MONOCYTES % (AUTO) 11.1 % (3-13); PLATELET COUNT 235 10^3/uL (150-450); RED BLOOD COUNT 3.43 10^6/uL (3.72-5.28); RED CELL DISTRIBUTION WIDTH 18.1 % (11.5-14.0); TOTAL CELLS COUNTED % (AUTO) 100 %; WHITE BLOOD COUNT 9.5 10^3/uL (4.0-10.5)
[2019-07-12 13:23] LABS: ALBUMIN 2.9 g/dL (3.5-5.0); ALKALINE PHOSPHATASE 79 U/L (38-126); ANION GAP 11 (5-19); ASPARTATE AMINO TRANSFERASE 30 U/L (14-36); BILIRUBIN,DIRECT 0.2 mg/dL (0.0-0.4); BILIRUBIN,TOTAL 0.3 mg/dL (0.2-1.3); BLOOD UREA NITROGEN 27 mg/dL (7-20); CALCIUM 9.1 mg/dL (8.4-10.2); CARBON DIOXIDE 17 mmol/L (22-30); CHLORIDE 116 mmol/L (98-107); GLUCOSE 120 mg/dL (75-110); POTASSIUM 4.7 mmol/L (3.6-5.0); TOTAL PROTEIN 6.4 g/dL (6.3-8.2)
--- NOTE | 2019-07-12 14:55 | PDOC PROGRESS REPORT ---
Subjective Progress Note for:: 07/12/19 Subjective:: Patient seen by the bedside, she was admitted for the management of pneumonia,She said she feels better, the chest x-ray that was done yesterday demonstrated improvement in the pneumonia process, kidney function is improving, she will continue present IV antibiotic for a total of 7 days, hopefully discharge home on Wednesday morning. This was explained to the patient, she is in agreement with the plan of care Reason For Visit: METABOLIC ACIDOSIS,ACUTE KIDNEY INJURY,PNEUMONIA Physical Exam Vital Signs: Temp Pulse Resp BP Pulse Ox 97.9 F 88 18 144/79 H 97 07/12/19 03:23 07/12/19 07:00 07/12/19 03:23 07/12/19 03:23 07/12/19 03:23 Intake & Output 07/11/19 07/12/19 07/13/19 06:59 06:59 06:59 Intake Total 3131 4141 360 Output Total 1050 850 Balance 2081 3291 360 Weight 115.9 kg 109.4 kg General appearance: PRESENT: no acute distress Eye exam: PRESENT: PERRLA Respiratory exam: PRESENT: clear to auscultation stephen Cardiovascular exam: PRESENT: +S1, +S2 GI/Abdominal exam: PRESENT: soft Neurological exam: PRESENT: alert Results Laboratory Results: 07/12/19 12:05 07/12/19 12:05 07/11/19 07/11/19 07/12/19 23:08 23:08 12:05 WBC 9.8 9.5 RBC 3.36 L 3.43 L Hgb 10.3 L 10.5 L Hct 31.2 L 32.0 L MCV 93 93 MCH 30.6 30.7 MCHC 33.0 32.9 RDW 17.9 H 18.1 H Plt Count 233 235 Seg Neutrophils % 70.6 68.0 Sodium 141.5 Potassium 4.4 Chloride 114 H Carbon Dioxide 16 L Anion Gap 12 BUN 33 H Creatinine 2.16 H Est GFR ( Amer) 28 L Glucose 123 H Calcium 8.9 Total Bilirubin 0.3 AST 29 Alkaline Phosphatase 77 Total Protein 6.3 Albumin 2.8 L 07/12/19 12:05 WBC RBC Hgb Hct MCV MCH MCHC RDW Plt Count Seg Neutrophils % Sodium 143.9 Potassium 4.7 Chloride 116 H Carbon Dioxide 17 L Anion Gap 11 BUN 27 H Creatinine 1.87 H Est GFR ( Amer) 33 L Glucose 120 H Calcium 9.1 Total Bilirubin 0.3 AST 30 Alkaline Phosphatase 79 Total Protein 6.4 Albumin 2.9 L 07/09/19 23:30 Catheterized Urine Urine Culture - Final Escherichia Coli Esbl 07/09/19 07/09/19 20:05 20:05 Creatine Kinase 72 CK-MB (CK-2) 1.77 Impressions: Head CT 07/09/19 17:24 IMPRESSION: CHRONIC MICROVASCULAR ISCHEMIA. NO ACUTE IMAGING FINDINGS IN THE BRAIN. EVIDENCE OF ACUTE STROKE: NO. Chest Ultrasound 07/10/19 08:49 IMPRESSION: No effusion visualized. Chest X-Ray 07/11/19 00:00 IMPRESSION: Persistent small left effusion and left basilar airspace disease. Findings are improved when compared to prior study. Assessment & Plan - Diagnosis (1) Healthcare-associated pneumonia Is this a current diagnosis for this admission?: Yes Plan: Continue IV antibiotic (2) Acute kidney injury Is this a current diagnosis for this admission?: Yes (3) Dehydration Is this a current diagnosis for this admission?: Yes (4) T2DM (type 2 diabetes mellitus) Qualifiers: Diabetes mellitus snf insulin use: with flat locker use Diabetes mellitus complication status: with neurologic complications Diabetes mellitus complication detail: with polyneuropathy Qualified Code(s): E11.42 - Type 2 diabetes mellitus with diabetic polyneuropathy; Z79.4 - longterm (current) use of insulin Is this a current diagnosis for this admission?: Yes - Time Time Spent with patient: 25-34 minutes
[2019-07-12] MEDS: NYSTATIN TOPICAL POWDER 15 GM TOP SCH ×2 (17:16→18:32)
[2019-07-12] MEDS: LOPERAMIDE HCL 2 MG CAPSULE PO PRN (20:37)
[2019-07-12] MEDS: CEFTRIAXONE 1 GM/D5W RTU 1 GM/50 ML RTUPB IV SCH (21:07)
[2019-07-12] MEDS ORDERED: AZITHROMYCIN 250 MG TABLET PO SCH (22:00)
[2019-07-12] MEDS ORDERED: NITROFURANTOIN MONOHYD/M-CRYST 100 MG CAPSULE PO ONE (23:00)
[2019-07-13] MEDS: HYDROMORPHONE HCL INJ/PF 2 MG/ML AMPULE IV PRN ×5 (03:43→21:42)
[2019-07-13] MEDS: NORMAL SALINE 1000 ML 1,000 ML IV PRN ×2 (03:55→23:00)
[2019-07-13] MEDS: GABAPENTIN 300 MG CAPSULE PO SCH ×2 (05:51→17:20)
[2019-07-13] MEDS: PANTOPRAZOLE SODIUM 40 MG TABLET.DR PO SCH (05:51)
[2019-07-13] MEDS: HEPARIN SOD (PORCINE) 5,000 UNIT/ML 1 ML VIAL SUBCUT SCH ×3 (05:51→21:42)
--- NOTE | 2019-07-13 08:25 | PDOC PROGRESS REPORT ---
Subjective Progress Note for:: 07/13/19 Subjective:: Patient seen by the bedside, she was admitted for the management of pneumonia, UTI, she was empirically on IV antibiotic, the sputum culture grew MRSA, Pseudomonas, it was a good quality sputum, the MRSA was 2+. The urine culture grew ESBL E. coli Reason For Visit: METABOLIC ACIDOSIS,ACUTE KIDNEY INJURY,PNEUMONIA Physical Exam Vital Signs: Temp Pulse Resp BP Pulse Ox 98.4 F 70 24 H 149/75 H 97 07/13/19 03:54 07/13/19 07:00 07/13/19 03:54 07/13/19 03:54 07/13/19 03:54 Intake & Output 07/12/19 07/13/19 07/14/19 06:59 06:59 06:59 Intake Total 4141 1770 Output Total 850 825 Balance 3291 945 Weight 109.4 kg 117 kg General appearance: PRESENT: no acute distress Eye exam: PRESENT: PERRLA Respiratory exam: PRESENT: rhonchi Cardiovascular exam: PRESENT: +S1, +S2 GI/Abdominal exam: PRESENT: soft Neurological exam: PRESENT: alert, CN II-XII grossly intact Results Laboratory Results: 07/12/19 12:05 07/12/19 12:05 07/12/19 07/12/19 12:05 12:05 WBC 9.5 RBC 3.43 L Hgb 10.5 L Hct 32.0 L MCV 93 MCH 30.7 MCHC 32.9 RDW 18.1 H Plt Count 235 Seg Neutrophils % 68.0 Sodium 143.9 Potassium 4.7 Chloride 116 H Carbon Dioxide 17 L Anion Gap 11 BUN 27 H Creatinine 1.87 H Est GFR ( Amer) 33 L Glucose 120 H Calcium 9.1 Total Bilirubin 0.3 AST 30 Alkaline Phosphatase 79 Total Protein 6.4 Albumin 2.9 L 07/10/19 22:00 Sputum Gram Stain - Final 07/10/19 22:00 Sputum Sputum Culture - Final Mrsa (Meth Resis Staph Aureus) Pseudomonas Aeruginosa Normal Graciela Absent 07/09/19 23:30 Catheterized Urine Urine Culture - Final Escherichia Coli Esbl 07/09/19 07/09/19 20:05 20:05 Creatine Kinase 72 CK-MB (CK-2) 1.77 Impressions: Head CT 07/09/19 17:24 IMPRESSION: CHRONIC MICROVASCULAR ISCHEMIA. NO ACUTE IMAGING FINDINGS IN THE BRAIN. EVIDENCE OF ACUTE STROKE: NO. Chest Ultrasound 07/10/19 08:49 IMPRESSION: No effusion visualized. Chest X-Ray 07/11/19 00:00 IMPRESSION: Persistent small left effusion and left basilar airspace disease. Findings are improved when compared to prior study. Assessment & Plan - Diagnosis (1) Healthcare-associated pneumonia Is this a current diagnosis for this admission?: Yes (2) Acute kidney injury Is this a current diagnosis for this admission?: Yes Plan: Continues to improve (3) Dehydration Is this a current diagnosis for this admission?: Yes (4) T2DM (type 2 diabetes mellitus) Qualifiers: Diabetes mellitus supervisor intermediates insulin use: with halfway use Diabetes mellitus complication status: with neurologic complications Diabetes mellitus complication detail: with polyneuropathy Qualified Code(s): E11.42 - Type 2 di abetes mellitus with diabetic polyneuropathy; Z79.4 - [facility] (current) use of insulin Is this a current diagnosis for this admission?: Yes (5) MRSA pneumonia Qualifiers: Laterality: unspecified laterality Is this a current diagnosis for this admission?: Yes Plan: Start vancomycin intravenously pharmacy to dose (6) Urinary tract infection due to extended-spectrum beta lactamase (ESBL) producing Escherichia coli Is this a current diagnosis for this admission?: Yes Plan: Discontinue Macrobid, the ESBL E. coli is sensitive to meropenem. (7) Pseudomonas pneumonia Qualifiers: Laterality: unspecified laterality Is this a current diagnosis for this admission?: Yes Plan: Start meropenem - Time Time Spent with patient: 35 or more minutes Level of Care: IMCU
[2019-07-13] MEDS ORDERED: VANCOMYCIN HCL 0 MG in DEXTROSE 5%-WATER 250 ML IV NR (08:30)
[2019-07-13] MEDS: INSULIN LISPRO 100 UNIT/ML 3 ML VIAL SUBCUT SCH ×4 (08:38→22:15)
[2019-07-13] MEDS ORDERED: NITROFURANTOIN MONOHYD/M-CRYST 100 MG CAPSULE PO SCH (10:00)
[2019-07-13] MEDS: NYSTATIN TOPICAL POWDER 15 GM TOP SCH ×2 (10:25→17:22)
[2019-07-13] MEDS: SITAGLIPTIN PHOSPHATE 50 MG TABLET PO SCH (10:28)
[2019-07-13] MEDS: METOPROLOL SUCCINATE 50 MG TAB.SR.24H PO SCH (10:40)
[2019-07-13] MEDS: COLCHICINE 0.6 MG TABLET PO SCH ×2 (10:41→17:20)
[2019-07-13] MEDS: CALCITRIOL 0.25 MCG CAPSULE PO SCH (10:41)
[2019-07-13] MEDS: ALLOPURINOL 100 MG TABLET PO SCH (10:41)
[2019-07-13] MEDS: MEROPENEM 1 GM in NORMAL SALINE 50 ML IV SCH ×2 (10:55→21:41)
[2019-07-13] MEDS ORDERED: VANCOMYCIN HCL 750 MG in DEXTROSE 5%-WATER 250 ML IV SCH (11:00)
[2019-07-13 11:20] LABS: ABSOLUTE EOSINOPHILS # (AUTO) 0.4 10^3/uL (0.0-0.6); ABSOLUTE LYMPHOCYTES (AUTO) 1.2 10^3/uL (0.5-4.7); ABSOLUTE MONOCYTES (AUTO) 0.7 10^3/uL (0.1-1.4); ABSOLUTE NEUT (AUTO) 5.2 10^3/uL (1.7-8.2); BASOPHILS % (AUTO) 0.5 % (0-2); EOSINOPHILS % (AUTO) 5.4 % (0-6); HEMATOCRIT 31.2 % (36.0-47.0); HEMOGLOBIN 10.3 g/dL (12.0-15.5); LYMPHOCYTES % (AUTO) 15.6 % (13-45); MEAN CORPUSCULAR HEMOGLOBIN 30.6 pg (27.0-33.4); MEAN CORPUSCULAR HGB CONC 33.1 g/dL (32.0-36.0); MEAN CORPUSCULAR VOLUME 92 fl (80-97); MONOCYTES % (AUTO) 9.1 % (3-13); PLATELET COUNT 216 10^3/uL (150-450); RED BLOOD COUNT 3.38 10^6/uL (3.72-5.28); SEGMENTED NEUTROPHILS % (AUTO) 69.4 % (42-78); TOTAL CELLS COUNTED % (AUTO) 100 %; WHITE BLOOD COUNT 7.5 10^3/uL (4.0-10.5)
[2019-07-13 11:29] LABS: APPEARANCE,URINE CLOUDY; BILIRUBIN,URINE NEGATIVE (NEGATIVE); COLOR,URINE YELLOW; GLUCOSE, URINE NEGATIVE (NEGATIVE); KETONES,URINE NEGATIVE (NEGATIVE); LEUKOCYTE ESTERASE,URINE LARGE (NEGATIVE); NITRITE,URINE NEGATIVE (NEGATIVE); PROTEIN,URINE 30 mg/dL (NEGATIVE); URINE SPECIFIC GRAVITY 1.014; UROBILINOGEN,URINE NEGATIVE mg/dL (<2.0)
[2019-07-13 21:35] LABS: ALBUMIN 3.1 g/dL (3.5-5.0); ALKALINE PHOSPHATASE 82 U/L (38-126); ANION GAP 8 (5-19); ASPARTATE AMINO TRANSFERASE 44 U/L (14-36); BILIRUBIN,DIRECT 0.2 mg/dL (0.0-0.4); BILIRUBIN,TOTAL 0.4 mg/dL (0.2-1.3); BLOOD UREA NITROGEN 16 mg/dL (7-20); CALCIUM 8.8 mg/dL (8.4-10.2); CARBON DIOXIDE 19 mmol/L (22-30); CHLORIDE 113 mmol/L (98-107); GLUCOSE 95 mg/dL (75-110); POTASSIUM 4.6 mmol/L (3.6-5.0); TOTAL PROTEIN 6.9 g/dL (6.3-8.2)
[2019-07-14] MEDS: LOPERAMIDE HCL 2 MG CAPSULE PO PRN ×3 (00:22→22:19)
[2019-07-14] MEDS: HYDROMORPHONE HCL INJ/PF 2 MG/ML AMPULE IV PRN ×6 (01:46→23:05)
[2019-07-14] MEDS: PANTOPRAZOLE SODIUM 40 MG TABLET.DR PO SCH (05:44)
[2019-07-14] MEDS: HEPARIN SOD (PORCINE) 5,000 UNIT/ML 1 ML VIAL SUBCUT SCH ×3 (05:56→22:08)
[2019-07-14] MEDS: GABAPENTIN 300 MG CAPSULE PO SCH ×2 (05:58→19:01)
[2019-07-14] MEDS ORDERED: (PENDING PHARMACY ID) (Fluconazole [Diflucan] 150 MG) PO SCH (10:00)
[2019-07-14] MEDS ORDERED: FLUCONAZOLE 100 MG TABLET PO SCH (10:00)
[2019-07-14] MEDS: INSULIN LISPRO 100 UNIT/ML 3 ML VIAL SUBCUT SCH ×4 (10:08→22:08)
[2019-07-14] MEDS: SITAGLIPTIN PHOSPHATE 50 MG TABLET PO SCH (10:09)
[2019-07-14] MEDS: CALCITRIOL 0.25 MCG CAPSULE PO SCH (10:10)
[2019-07-14] MEDS: COLCHICINE 0.6 MG TABLET PO SCH ×2 (10:10→19:02)
[2019-07-14] MEDS: METOPROLOL SUCCINATE 50 MG TAB.SR.24H PO SCH (10:11)
[2019-07-14] MEDS: NYSTATIN TOPICAL POWDER 15 GM TOP SCH ×2 (10:36→19:00)
[2019-07-14] MEDS: MEROPENEM 1 GM in NORMAL SALINE 50 ML IV SCH ×2 (11:13→22:08)
[2019-07-14] MEDS: VANCOMYCIN HCL 1,000 MG in DEXTROSE 5%-WATER 250 ML IV SCH (12:00)
[2019-07-14 12:04] LABS: ABSOLUTE EOSINOPHILS # (AUTO) 0.5 10^3/uL (0.0-0.6); ABSOLUTE MONOCYTES (AUTO) 0.6 10^3/uL (0.1-1.4); ABSOLUTE NEUT (AUTO) 5.1 10^3/uL (1.7-8.2); BASOPHILS % (AUTO) 0.6 % (0-2); EOSINOPHILS % (AUTO) 7.6 % (0-6); HEMATOCRIT 32.4 % (36.0-47.0); HEMOGLOBIN 10.8 g/dL (12.0-15.5); LYMPHOCYTES % (AUTO) 13.5 % (13-45); MEAN CORPUSCULAR HEMOGLOBIN 30.7 pg (27.0-33.4); MEAN CORPUSCULAR HGB CONC 33.4 g/dL (32.0-36.0); MEAN CORPUSCULAR VOLUME 92 fl (80-97); MONOCYTES % (AUTO) 7.9 % (3-13); PLATELET COUNT 202 10^3/uL (150-450); RED BLOOD COUNT 3.52 10^6/uL (3.72-5.28); RED CELL DISTRIBUTION WIDTH 18.1 % (11.5-14.0); SEGMENTED NEUTROPHILS % (AUTO) 70.4 % (42-78); TOTAL CELLS COUNTED % (AUTO) 100 %; WHITE BLOOD COUNT 7.2 10^3/uL (4.0-10.5)
[2019-07-14 12:25] LABS: ALBUMIN 3.1 g/dL (3.5-5.0); ALKALINE PHOSPHATASE 89 U/L (38-126); ANION GAP 9 (5-19); ASPARTATE AMINO TRANSFERASE 53 U/L (14-36); BILIRUBIN,DIRECT 0.2 mg/dL (0.0-0.4); BILIRUBIN,TOTAL 0.3 mg/dL (0.2-1.3); BLOOD UREA NITROGEN 12 mg/dL (7-20); CALCIUM 8.7 mg/dL (8.4-10.2); CARBON DIOXIDE 19 mmol/L (22-30); CHLORIDE 113 mmol/L (98-107); GLUCOSE 129 mg/dL (75-110); POTASSIUM 4.3 mmol/L (3.6-5.0); TOTAL PROTEIN 6.7 g/dL (6.3-8.2)
--- NOTE | 2019-07-14 12:54 | PDOC PROGRESS REPORT ---
Subjective Progress Note for:: 07/14/19 Subjective:: Patient seen by the bedside, she has MRSA pneumonia and also Pseudomonas pneumonia with ESBL E. coli UTI. She is on intravenous vancomycin, meropenem, meropenem, has ESBL E. coli and Pseudomonas. She will stay few more days in the hospital, I explained to her that I am off duty this week and she will be seen by my colleague telephone answering service operator Reason For Visit: METABOLIC ACIDOSIS,ACUTE KIDNEY INJURY,PNEUMONIA Physical Exam Vital Signs: Temp Pulse Resp BP Pulse Ox 98.1 F 101 H 18 132/82 H 98 07/14/19 07:59 07/14/19 07:59 07/14/19 07:59 07/14/19 07:59 07/14/19 07:59 Intake & Output 07/13/19 07/14/19 07/15/19 06:59 06:59 06:59 Intake Total 1770 2955 360 Output Total 825 3235 Balance 945 -280 360 Weight 117 kg 115.4 kg General appearance: PRESENT: no acute distress Eye exam: PRESENT: PERRLA Respiratory exam: PRESENT: rhonchi Cardiovascular exam: PRESENT: +S1, +S2 GI/Abdominal exam: PRESENT: soft Neurological exam: PRESENT: alert Results Laboratory Results: 07/14/19 11:30 07/14/19 11:30 07/13/19 07/14/19 07/14/19 21:00 11:30 11:30 WBC 7.2 RBC 3.52 L Hgb 10.8 L Hct 32.4 L MCV 92 MCH 30.7 MCHC 33.4 RDW 18.1 H Plt Count 202 Seg Neutrophils % 70.4 Sodium 139.8 141.2 Potassium 4.6 4.3 Chloride 113 H 113 H Carbon Dioxide 19 L 19 L Anion Gap 8 9 BUN 16 12 Creatinine 1.43 H 1.45 H Est GFR ( Amer) 45 L 44 L Glucose 95 129 H Calcium 8.8 8.7 Total Bilirubin 0.4 0.3 AST 44 H 53 H Alkaline Phosphatase 82 89 Total Protein 6.9 6.7 Albumin 3.1 L 3.1 L 07/10/19 22:00 Sputum Gram Stain - Final 07/10/19 22:00 Sputum Sputum Culture - Final Mrsa (Meth Resis Staph Aureus) Pseudomonas Aeruginosa Normal Graciela Absent 07/09/19 07/09/19 20:05 20:05 Creatine Kinase 72 CK-MB (CK-2) 1.77 Impressions: Head CT 07/09/19 17:24 IMPRESSION: CHRONIC MICROVASCULAR ISCHEMIA. NO ACUTE IMAGING FINDINGS IN THE BRAIN. EVIDENCE OF ACUTE STROKE: NO. Chest Ultrasound 07/10/19 08:49 IMPRESSION: No effusion visualized. Chest X-Ray 07/11/19 00:00 IMPRESSION: Persistent small left effusion and left basilar airspace disease. Findings are improved when compared to prior study. Assessment & Plan - Diagnosis (1) Healthcare-associated pneumonia Is this a current diagnosis for this admission?: Yes (2) Acute kidney injury Is this a current diagnosis for this admission?: Yes Plan: Continue IV fluid therapy (3) Dehydration Is this a current diagnosis for this admission?: Yes (4) T2DM (type 2 diabetes mellitus) Qualifiers: Diabetes mellitus director long term care insulin use: with director long term care use Diabetes mellitus complication status: with neurologic complications Diabetes mellitus complication detail: with polyneuropathy Qualified Code(s): E11.42 - Type 2 diabetes mellitus with diabetic polyneuropathy; 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 Is this a current diagnosis for this admission?: Yes (5) MRSA pneumonia Qualifiers: Laterality: unspecified laterality Is this a current diagnosis for this admission?: Yes Plan: She will continue IV antibiotic for a total of 7 days (6) Urinary tract infection due to extended-spectrum beta lactamase (ESBL) producing Escherichia coli Is this a current diagnosis for this admission?: Yes Plan: Continue IV meropenem (7) Pseudomonas pneumonia Qualifiers: Laterality: unspecified laterality Is this a current diagnosis for this admission?: Yes Plan: Continue IV meropenem - Time Time Spent with patient: 35 or more minutes Level of Care: IMCU
[2019-07-14] MEDS: ALLOPURINOL 100 MG TABLET PO SCH (14:35)
[2019-07-14] MEDS: NORMAL SALINE 1000 ML 1,000 ML IV PRN ×2 (22:10→22:12)
[2019-07-14 23:45] LABS: ALBUMIN 2.4 g/dL (3.5-5.0); ALKALINE PHOSPHATASE 66 U/L (38-126); ANION GAP 9 (5-19); ASPARTATE AMINO TRANSFERASE 47 U/L (14-36); BILIRUBIN,DIRECT 0.2 mg/dL (0.0-0.4); BILIRUBIN,TOTAL 0.3 mg/dL (0.2-1.3); BLOOD UREA NITROGEN 10 mg/dL (7-20); CALCIUM 7.2 mg/dL (8.4-10.2); CARBON DIOXIDE 11 mmol/L (22-30); CHLORIDE 124 mmol/L (98-107); TOTAL PROTEIN 5.5 g/dL (6.3-8.2)
[2019-07-14 23:52] LABS: GLUCOSE 68 mg/dL (75-110)
[2019-07-15] MEDS: HYDROMORPHONE HCL INJ/PF 2 MG/ML AMPULE IV PRN ×5 (03:26→22:15)
[2019-07-15] MEDS: HEPARIN SOD (PORCINE) 5,000 UNIT/ML 1 ML VIAL SUBCUT SCH ×3 (05:04→22:15)
[2019-07-15] MEDS: PANTOPRAZOLE SODIUM 40 MG TABLET.DR PO SCH (05:05)
[2019-07-15] MEDS: GABAPENTIN 300 MG CAPSULE PO SCH ×2 (05:05→18:04)
[2019-07-15] MEDS: NORMAL SALINE 1000 ML 1,000 ML IV PRN ×2 (08:42→22:23)
[2019-07-15] MEDS: INSULIN LISPRO 100 UNIT/ML 3 ML VIAL SUBCUT SCH ×4 (08:43→22:16)
[2019-07-15] MEDS: ALLOPURINOL 100 MG TABLET PO SCH (09:41)
[2019-07-15] MEDS: METOPROLOL SUCCINATE 50 MG TAB.SR.24H PO SCH (09:41)
[2019-07-15] MEDS: SITAGLIPTIN PHOSPHATE 50 MG TABLET PO SCH (09:42)
[2019-07-15] MEDS: CALCITRIOL 0.25 MCG CAPSULE PO SCH (09:42)
[2019-07-15] MEDS: COLCHICINE 0.6 MG TABLET PO SCH ×2 (09:43→18:04)
[2019-07-15] MEDS: MEROPENEM 1 GM in NORMAL SALINE 50 ML IV SCH ×2 (09:43→22:16)
[2019-07-15] MEDS: NYSTATIN TOPICAL POWDER 15 GM TOP SCH ×2 (09:43→18:06)
--- NOTE | 2019-07-15 10:26 | PDOC PROGRESS REPORT ---
Subjective Progress Note for:: 07/15/19 Subjective:: Patient is currently doing well Patient was admitted for MRSA pneumonia and ESBL UTI Patient is currently on IV vancomycin's Patient's denied any chest pain no short of breath Patient also also have a high ileostomy output require IV fluid patient is receiving the at least once a week IV fluid as outpatients currently kidney function is stable Denied any chest pain to than any shortness of breath Reason For Visit: METABOLIC ACIDOSIS,ACUTE KIDNEY INJURY,PNEUMONIA Physical Exam Vital Signs: Temp Pulse Resp BP Pulse Ox 97.9 F 79 20 167/90 H 99 07/15/19 07:49 07/15/19 07:49 07/15/19 07:49 07/15/19 07:49 07/15/19 07:49 Intake & Output 07/14/19 07/15/19 07/16/19 06:59 06:59 06:59 Intake Total 2955 2273 1000 Output Total 3235 50 Balance -280 2223 1000 Weight 115.4 kg 114.4 kg General appearance: PRESENT: no acute distress, well-developed, well-nourished Head exam: PRESENT: atraumatic, normocephalic Eye exam: PRESENT: conjunctiva pink, EOMI, PERRLA. ABSENT: scleral icterus Ear exam: PRESENT: normal external ear exam Mouth exam: PRESENT: moist, tongue midline Neck exam: PRESENT: full ROM. ABSENT: carotid bruit, JVD, lymphadenopathy, thyromegaly Respiratory exam: PRESENT: clear to auscultation stephen Cardiovascular exam: PRESENT: RRR. ABSENT: diastolic murmur, rubs, systolic murmur Pulses: PRESENT: normal dorsalis pedis pul, +2 pedal pulses bilateral Vascular exam: PRESENT: normal capillary refill GI/Abdominal exam: PRESENT: normal bowel sounds, soft. ABSENT: distended, guarding, mass, organolmegaly, rebound, tenderness Rectal exam: PRESENT: deferred Musculoskeletal exam: PRESENT: ambulatory Neurological exam: PRESENT: alert, awake, oriented to person, oriented to place, oriented to time, oriented to situation, CN II-XII grossly intact. ABSENT: motor sensory deficit Psychiatric exam: PRESENT: appropriate affect, normal mood. ABSENT: homicidal ideation, suicidal ideation Skin exam: PRESENT: dry, intact, warm. ABSENT: cyanosis, rash Results Laboratory Results: 07/14/19 11:30 07/14/19 23:15 07/14/19 07/14/19 07/14/19 11:30 11:30 23:15 WBC 7.2 RBC 3.52 L Hgb 10.8 L Hct 32.4 L MCV 92 MCH 30.7 MCHC 33.4 RDW 18.1 H Plt Count 202 Seg Neutrophils % 70.4 Sodium 141.2 143.9 Potassium 4.3 4.0 Chloride 113 H 124 H Carbon Dioxide 19 L 11 L Anion Gap 9 9 BUN 12 10 Creatinine 1.45 H 1.23 Est GFR ( Amer) 44 L 54 L Glucose 129 H 68 L Calcium 8.7 7.2 L Total Bilirubin 0.3 0.3 AST 53 H 47 H Alkaline Phosphatase 89 66 Total Protein 6.7 5.5 L Albumin 3.1 L 2.4 L 07/09/19 20:30 Blood Blood Culture - Final NO GROWTH IN 5 DAYS 07/09/19 20:19 Blood Blood Culture - Final NO GROWTH IN 5 DAYS 07/09/19 07/09/19 20:05 20:05 Creatine Kinase 72 CK-MB (CK-2) 1.77 Impressions: Head CT 07/09/19 17:24 IMPRESSION: CHRONIC MICROVASCULAR ISCHEMIA. NO ACUTE IMAGING FINDINGS IN THE BRAIN. EVIDENCE OF ACUTE STROKE: NO. Chest Ultrasound 07/10/19 08:49 IMPRESSION: No effusion visualized. Chest X-Ray 07/11/19 00:00 IMPRESSION: Persistent small left effusion and left basilar airspace disease. Findings are improved when compared to prior study. Assessment & Plan - Diagnosis (1) Healthcare-associated pneumonia Is this a current diagnosis for this admission?: Yes Plan: Continues to vancomycin and meropenem (2) MRSA pneumonia Qualifiers: Laterality: unspecified laterality Is this a current diagnosis for this admission?: Yes Plan: Start IV vancomycin as per pharmacy dosing's we will check the kidney functions (3) T2DM (type 2 diabetes mellitus) Qualifiers: Diabetes mellitus care home insulin use: with care home use Diabetes mellitus complication status: with neurologic complications Diabetes mellitus complication detail: with polyneuropathy Qualified Code(s): E11.42 - Type 2 diabetes mellitus with diabetic polyneuropathy; 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 Is this a current diagnosis for this admission?: Yes (4) Urinary tract infection due to extended-spectrum beta lactamase (ESBL) producing Escherichia coli Is this a current diagnosis for this admission?: Yes Plan: Currently on IV antibiotic (5) Chronic systolic heart failure Is this a current diagnosis for this admission?: Yes Plan: Currently all stable (6) Coronary artery disease Qualifiers: Coronary Disease-Associated Artery/Lesion type: unspecified vessel or lesion type Is this a current diagnosis for this admission?: Yes - Time Time Spent with patient: 15-24 minutes Level of Care: IMCU Medications reviewed and adjusted accordingly: Yes Anticipated discharge: Home Within: Other - Plan Summary Plan Summary: Continues the antibiotics [facility]
[2019-07-15] MEDS: VANCOMYCIN HCL 1,000 MG in DEXTROSE 5%-WATER 250 ML IV SCH (11:58)
[2019-07-15 18:02] LABS: ABSOLUTE EOSINOPHILS # (AUTO) 0.6 10^3/uL (0.0-0.6); ABSOLUTE LYMPHOCYTES (AUTO) 1.5 10^3/uL (0.5-4.7); ABSOLUTE MONOCYTES (AUTO) 0.8 10^3/uL (0.1-1.4); ABSOLUTE NEUT (AUTO) 5.3 10^3/uL (1.7-8.2); BASOPHILS % (AUTO) 0.5 % (0-2); EOSINOPHILS % (AUTO) 6.9 % (0-6); HEMATOCRIT 32.4 % (36.0-47.0); HEMOGLOBIN 10.6 g/dL (12.0-15.5); LYMPHOCYTES % (AUTO) 17.8 % (13-45); MEAN CORPUSCULAR HEMOGLOBIN 30.3 pg (27.0-33.4); MEAN CORPUSCULAR HGB CONC 32.8 g/dL (32.0-36.0); MEAN CORPUSCULAR VOLUME 92 fl (80-97); MONOCYTES % (AUTO) 10.2 % (3-13); PLATELET COUNT 191 10^3/uL (150-450); RED BLOOD COUNT 3.51 10^6/uL (3.72-5.28); SEGMENTED NEUTROPHILS % (AUTO) 64.6 % (42-78); TOTAL CELLS COUNTED % (AUTO) 100 %; WHITE BLOOD COUNT 8.3 10^3/uL (4.0-10.5)
[2019-07-15 18:16] LABS: ALKALINE PHOSPHATASE 85 U/L (38-126); ANION GAP 10 (5-19); ASPARTATE AMINO TRANSFERASE 61 U/L (14-36); BILIRUBIN,DIRECT 0.2 mg/dL (0.0-0.4); BILIRUBIN,TOTAL 0.3 mg/dL (0.2-1.3); BLOOD UREA NITROGEN 10 mg/dL (7-20); CALCIUM 8.1 mg/dL (8.4-10.2); CARBON DIOXIDE 18 mmol/L (22-30); CHLORIDE 117 mmol/L (98-107); POTASSIUM 4.5 mmol/L (3.6-5.0)
[2019-07-15 18:24] LABS: GLUCOSE 56 mg/dL (75-110)
[2019-07-16] MEDS: HYDROMORPHONE HCL INJ/PF 2 MG/ML AMPULE IV PRN ×5 (02:15→21:51)
[2019-07-16] MEDS: LOPERAMIDE HCL 2 MG CAPSULE PO PRN (02:34)
[2019-07-16 04:35] LABS: ABSOLUTE EOSINOPHILS # (AUTO) 0.7 10^3/uL (0.0-0.6); ABSOLUTE LYMPHOCYTES (AUTO) 1.4 10^3/uL (0.5-4.7); ABSOLUTE MONOCYTES (AUTO) 0.7 10^3/uL (0.1-1.4); ABSOLUTE NEUT (AUTO) 5.7 10^3/uL (1.7-8.2); BASOPHILS % (AUTO) 0.4 % (0-2); EOSINOPHILS % (AUTO) 7.8 % (0-6); HEMATOCRIT 32.1 % (36.0-47.0); HEMOGLOBIN 10.6 g/dL (12.0-15.5); LYMPHOCYTES % (AUTO) 16.5 % (13-45); MEAN CORPUSCULAR HEMOGLOBIN 30.3 pg (27.0-33.4); MEAN CORPUSCULAR HGB CONC 33.1 g/dL (32.0-36.0); MEAN CORPUSCULAR VOLUME 92 fl (80-97); MONOCYTES % (AUTO) 8.6 % (3-13); PLATELET COUNT 185 10^3/uL (150-450); RED BLOOD COUNT 3.49 10^6/uL (3.72-5.28); RED CELL DISTRIBUTION WIDTH 17.8 % (11.5-14.0); SEGMENTED NEUTROPHILS % (AUTO) 66.7 % (42-78); TOTAL CELLS COUNTED % (AUTO) 100 %; WHITE BLOOD COUNT 8.5 10^3/uL (4.0-10.5)
[2019-07-16 04:57] LABS: ALKALINE PHOSPHATASE 88 U/L (38-126); ANION GAP 10 (5-19); ASPARTATE AMINO TRANSFERASE 89 U/L (14-36); BILIRUBIN,DIRECT 0.2 mg/dL (0.0-0.4); BILIRUBIN,TOTAL 0.3 mg/dL (0.2-1.3); BLOOD UREA NITROGEN 10 mg/dL (7-20); CALCIUM 8.5 mg/dL (8.4-10.2); CARBON DIOXIDE 19 mmol/L (22-30); CHLORIDE 117 mmol/L (98-107); GLUCOSE 87 mg/dL (75-110); POTASSIUM 4.4 mmol/L (3.6-5.0); TOTAL PROTEIN 6.6 g/dL (6.3-8.2)
[2019-07-16] MEDS: PANTOPRAZOLE SODIUM 40 MG TABLET.DR PO SCH (06:28)
[2019-07-16] MEDS: GABAPENTIN 300 MG CAPSULE PO SCH ×2 (06:28→17:35)
[2019-07-16] MEDS: HEPARIN SOD (PORCINE) 5,000 UNIT/ML 1 ML VIAL SUBCUT SCH ×3 (06:28→21:57)
[2019-07-16] MEDS: INSULIN LISPRO 100 UNIT/ML 3 ML VIAL SUBCUT SCH ×4 (08:04→21:58)
[2019-07-16] MEDS: METOPROLOL SUCCINATE 50 MG TAB.SR.24H PO SCH (09:22)
[2019-07-16] MEDS: COLCHICINE 0.6 MG TABLET PO SCH (09:22)
[2019-07-16] MEDS: CALCITRIOL 0.25 MCG CAPSULE PO SCH (09:22)
[2019-07-16] MEDS: ALLOPURINOL 100 MG TABLET PO SCH (09:22)
[2019-07-16] MEDS: MEROPENEM 1 GM in NORMAL SALINE 50 ML IV SCH ×2 (09:23→21:51)
--- NOTE | 2019-07-16 09:25 | PDOC PROGRESS REPORT ---
Subjective Progress Note for:: 07/16/19 Subjective:: Patient is currently doing well Patient was admitted for MRSA pneumonia and ESBL UTI Patient is currently on IV vancomycin's Patient's denied any chest pain no short of breath Patient also also have a high ileostomy output require IV fluid patient is receiving the at least once a week IV fluid as outpatients currently kidney function is stable Denied any chest pain to than any shortness of breath Reason For Visit: METABOLIC ACIDOSIS,ACUTE KIDNEY INJURY,PNEUMONIA Physical Exam Vital Signs: Temp Pulse Resp BP Pulse Ox 98.0 F 69 18 158/85 H 100 07/16/19 07:44 07/16/19 07:44 07/16/19 07:44 07/16/19 07:44 07/16/19 07:44 Intake & Output 07/15/19 07/16/19 07/17/19 06:59 06:59 06:59 Intake Total 2273 3070 Output Total 50 2400 Balance 2223 670 Weight 114.4 kg 115.2 kg General appearance: PRESENT: no acute distress, well-developed, well-nourished Head exam: PRESENT: atraumatic, normocephalic Eye exam: PRESENT: conjunctiva pink, EOMI, PERRLA. ABSENT: scleral icterus Ear exam: PRESENT: normal external ear exam Mouth exam: PRESENT: moist, tongue midline Neck exam: PRESENT: full ROM. ABSENT: carotid bruit, JVD, lymphadenopathy, thyromegaly Respiratory exam: PRESENT: clear to auscultation stephen Cardiovascular exam: PRESENT: RRR. ABSENT: diastolic murmur, rubs, systolic murmur Pulses: PRESENT: normal dorsalis pedis pul, +2 pedal pulses bilateral Vascular exam: PRESENT: normal capillary refill GI/Abdominal exam: PRESENT: normal bowel sounds, soft. ABSENT: distended, guarding, mass, organolmegaly, rebound, tenderness Additonal comments: Ileostomy bag is intact Rectal exam: PRESENT: deferred Neurological exam: PRESENT: alert, awake, oriented to person, oriented to place, oriented to time, oriented to situation, CN II-XII grossly intact. ABSENT: motor sensory deficit Psychiatric exam: PRESENT: appropriate affect, normal mood. ABSENT: homicidal ideation, suicidal ideation Skin exam: PRESENT: dry, intact, warm. ABSENT: cyanosis, rash Results Laboratory Results: 07/16/19 03:44 07/16/19 03:44 07/15/19 07/15/19 07/16/19 17:30 17:30 03:44 WBC 8.3 8.5 RBC 3.51 L 3.49 L Hgb 10.6 L 10.6 L Hct 32.4 L 32.1 L MCV 92 92 MCH 30.3 30.3 MCHC 32.8 33.1 RDW 18.0 H 17.8 H Plt Count 191 185 Seg Neutrophils % 64.6 66.7 Sodium 145.0 Potassium 4.5 Chloride 117 H Carbon Dioxide 18 L Anion Gap 10 BUN 10 Creatinine 1.29 H Est GFR ( Amer) 51 L Glucose 56 L Calcium 8.1 L Total Bilirubin 0.3 AST 61 H Alkaline Phosphatase 85 Total Protein 6.0 L Albumin 3.0 L 07/16/19 03:44 WBC RBC Hgb Hct MCV MCH MCHC RDW Plt Count Seg Neutrophils % Sodium 146.0 H Potassium 4.4 Chloride 117 H Carbon Dioxide 19 L Anion Gap 10 BUN 10 Creatinine 1.46 H Est GFR ( Amer) 44 L Glucose 87 Calcium 8.5 Total Bilirubin 0.3 AST 89 H Alkaline Phosphatase 88 Total Protein 6.6 Albumin 3.0 L 07/09/19 07/09/19 20:05 20:05 Creatine Kinase 72 CK-MB (CK-2) 1.77 Impressions: Head CT 07/09/19 17:24 IMPRESSION: CHRONIC MICROVASCULAR ISCHEMIA. NO ACUTE IMAGING FINDINGS IN THE BRAIN. EVIDENCE OF ACUTE STROKE: NO. Chest Ultrasound 07/10/19 08:49 IMPRESSION: No effusion visualized. Chest X-Ray 07/11/19 00:00 IMPRESSION: Persistent small left effusion and left basilar airspace disease. Findings are improved when compared to prior study. Assessment & Plan - Diagnosis (1) Healthcare-associated pneumonia Is this a current diagnosis for this admission?: Yes Plan: Continues to vancomycin and meropenem (2) MRSA pneumonia Qualifiers: Laterality: unspecified laterality Is this a current diagnosis for this admission?: Yes Plan: Start IV vancomycin as per pharmacy dosing's we will check the kidney functions (3) T2DM (type 2 diabetes mellitus) Qualifiers: Diabetes mellitus middle or intermediate school principal insulin use: with middle or intermediate school principal use Diabetes mellitus complication status: with neurologic complications Diabetes mellitus complication detail: with polyneuropathy Qualified Code(s): E11.42 - Type 2 diabetes mellitus with diabetic polyneuropathy; Z79.4 - half-way (current) use of insulin Is this a current diagnosis for this admission?: Yes (4) Urinary tract infection due to extended-spectrum beta lactamase (ESBL) producing Escherichia coli Is this a current diagnosis for this admission?: Yes Plan: Currently on IV antibiotic (5) Chronic systolic heart failure Is this a current diagnosis for this admission?: Yes Plan: Currently all stable (6) Coronary artery disease Qualifiers: Coronary Disease-Associated Artery/Lesion type: unspecified vessel or lesion type Is this a current diagnosis for this admission?: Yes - Time Time Spent with patient: 15-24 minutes Level of Care: IMCU Medications reviewed and adjusted accordingly: Yes Anticipated discharge: Home Within: Other - Plan Summary Plan Summary: Continues to IV antibiotic
[2019-07-16] MEDS: NYSTATIN TOPICAL POWDER 15 GM TOP SCH ×2 (09:27→17:38)
[2019-07-16] MEDS: NORMAL SALINE 1000 ML 1,000 ML IV PRN ×2 (10:39→20:42)
[2019-07-16 10:58] LABS: ABSOLUTE LYMPHOCYTES (AUTO) 1.3 10^3/uL (0.5-4.7); MEAN CORPUSCULAR HEMOGLOBIN 30.3 pg (27.0-33.4); RED BLOOD COUNT 3.48 10^6/uL (3.72-5.28); TOTAL CELLS COUNTED % (AUTO) 100 %
[2019-07-16 11:03] LABS: ABSOLUTE EOSINOPHILS # (AUTO) 0.6 10^3/uL (0.0-0.6); ABSOLUTE MONOCYTES (AUTO) 0.5 10^3/uL (0.1-1.4); ABSOLUTE NEUT (AUTO) 5.4 10^3/uL (1.7-8.2); BASOPHILS % (AUTO) 0.3 % (0-2); EOSINOPHILS % (AUTO) 7.2 % (0-6); HEMOGLOBIN 10.5 g/dL (12.0-15.5); LYMPHOCYTES % (AUTO) 16.6 % (13-45); MEAN CORPUSCULAR HGB CONC 32.9 g/dL (32.0-36.0); MEAN CORPUSCULAR VOLUME 92 fl (80-97); MONOCYTES % (AUTO) 6.7 % (3-13); PLATELET COUNT 172 10^3/uL (150-450); RED CELL DISTRIBUTION WIDTH 18.3 % (11.5-14.0); SEGMENTED NEUTROPHILS % (AUTO) 69.2 % (42-78); WHITE BLOOD COUNT 7.8 10^3/uL (4.0-10.5)
[2019-07-16 11:15] LABS: ALKALINE PHOSPHATASE 80 U/L (38-126); ANION GAP 10 (5-19); ASPARTATE AMINO TRANSFERASE 91 U/L (14-36); BILIRUBIN,DIRECT 0.1 mg/dL (0.0-0.4); BILIRUBIN,TOTAL 0.3 mg/dL (0.2-1.3); BLOOD UREA NITROGEN 9 mg/dL (7-20); CALCIUM 8.4 mg/dL (8.4-10.2); CARBON DIOXIDE 19 mmol/L (22-30); CHLORIDE 113 mmol/L (98-107); GLUCOSE 112 mg/dL (75-110); POTASSIUM 4.2 mmol/L (3.6-5.0); TOTAL PROTEIN 6.5 g/dL (6.3-8.2)
[2019-07-16] MEDS: VANCOMYCIN HCL 1,000 MG in DEXTROSE 5%-WATER 250 ML IV SCH (11:46)
[2019-07-16 12:35] LABS: VANCOMYCIN,TROUGH 14.3 ug/mL (5.0-20.0)
[2019-07-16] MEDS: SITAGLIPTIN PHOSPHATE 50 MG TABLET PO SCH (17:36)
[2019-07-17] MEDS: HYDROMORPHONE HCL INJ/PF 2 MG/ML AMPULE IV PRN ×5 (02:33→20:06)
[2019-07-17] MEDS: GABAPENTIN 300 MG CAPSULE PO SCH ×2 (06:36→17:52)
[2019-07-17] MEDS: PANTOPRAZOLE SODIUM 40 MG TABLET.DR PO SCH (06:37)
[2019-07-17] MEDS: HEPARIN SOD (PORCINE) 5,000 UNIT/ML 1 ML VIAL SUBCUT SCH ×3 (06:37→22:03)
[2019-07-17 07:02] LABS: ABSOLUTE EOSINOPHILS # (AUTO) 0.5 10^3/uL (0.0-0.6); ABSOLUTE LYMPHOCYTES (AUTO) 1.5 10^3/uL (0.5-4.7); ABSOLUTE MONOCYTES (AUTO) 0.7 10^3/uL (0.1-1.4); BASOPHILS % (AUTO) 0.6 % (0-2); EOSINOPHILS % (AUTO) 6.4 % (0-6); HEMATOCRIT 32.1 % (36.0-47.0); HEMOGLOBIN 10.4 g/dL (12.0-15.5); LYMPHOCYTES % (AUTO) 19.3 % (13-45); MEAN CORPUSCULAR HEMOGLOBIN 30.1 pg (27.0-33.4); MEAN CORPUSCULAR HGB CONC 32.5 g/dL (32.0-36.0); MEAN CORPUSCULAR VOLUME 93 fl (80-97); MONOCYTES % (AUTO) 8.4 % (3-13); PLATELET COUNT 168 10^3/uL (150-450); RED BLOOD COUNT 3.47 10^6/uL (3.72-5.28); RED CELL DISTRIBUTION WIDTH 18.3 % (11.5-14.0); SEGMENTED NEUTROPHILS % (AUTO) 65.3 % (42-78); TOTAL CELLS COUNTED % (AUTO) 100 %; WHITE BLOOD COUNT 7.7 10^3/uL (4.0-10.5)
[2019-07-17 07:14] LABS: ALBUMIN 2.9 g/dL (3.5-5.0); ALKALINE PHOSPHATASE 87 U/L (38-126); ANION GAP 8 (5-19); ASPARTATE AMINO TRANSFERASE 102 U/L (14-36); BILIRUBIN,DIRECT 0.2 mg/dL (0.0-0.4); BILIRUBIN,TOTAL 0.4 mg/dL (0.2-1.3); BLOOD UREA NITROGEN 7 mg/dL (7-20); CALCIUM 8.4 mg/dL (8.4-10.2); CARBON DIOXIDE 20 mmol/L (22-30); CHLORIDE 113 mmol/L (98-107); GLUCOSE 72 mg/dL (75-110); POTASSIUM 4.3 mmol/L (3.6-5.0); TOTAL PROTEIN 6.5 g/dL (6.3-8.2)
[2019-07-17] MEDS: INSULIN LISPRO 100 UNIT/ML 3 ML VIAL SUBCUT SCH ×4 (08:33→22:08)
[2019-07-17] MEDS: SITAGLIPTIN PHOSPHATE 50 MG TABLET PO SCH (09:28)
[2019-07-17] MEDS: LOPERAMIDE HCL 2 MG CAPSULE PO PRN (09:28)
[2019-07-17] MEDS: COLCHICINE 0.6 MG TABLET PO SCH (09:28)
[2019-07-17] MEDS: CALCITRIOL 0.25 MCG CAPSULE PO SCH (09:28)
[2019-07-17] MEDS: NYSTATIN TOPICAL POWDER 15 GM TOP SCH ×2 (09:29→17:53)
[2019-07-17] MEDS: METOPROLOL SUCCINATE 50 MG TAB.SR.24H PO SCH (09:29)
[2019-07-17] MEDS: ALLOPURINOL 100 MG TABLET PO SCH (09:29)
[2019-07-17] MEDS: MEROPENEM 1 GM in NORMAL SALINE 50 ML IV SCH ×2 (09:29→22:09)
[2019-07-17] MEDS: VANCOMYCIN HCL 1,000 MG in DEXTROSE 5%-WATER 250 ML IV SCH (12:19)
[2019-07-17] MEDS: NORMAL SALINE 1000 ML 1,000 ML IV PRN (14:32)
--- NOTE | 2019-07-17 21:01 | PDOC PROGRESS REPORT ---
Subjective Progress Note for:: 07/17/19 Subjective:: Patient seen by the bedside, she has MRSA pneumonia, ESBL E. coli, she was treated with IV vancomycin, IV meropenem. Patient is doing quite well, she will be discharged home in 24 to 48 hours Reason For Visit: METABOLIC ACIDOSIS,ACUTE KIDNEY INJURY,PNEUMONIA Physical Exam Vital Signs: Temp Pulse Resp BP Pulse Ox 98.3 F 76 19 146/90 H 100 07/17/19 19:30 07/17/19 19:30 07/17/19 19:30 07/17/19 19:30 07/17/19 19:30 Intake & Output 07/16/19 07/17/19 07/18/19 06:59 06:59 06:59 Intake Total 3070 4730 1140 Output Total 2400 2300 Balance 670 2430 1140 Weight 115.2 kg 114.4 kg General appearance: PRESENT: no acute distress Eye exam: PRESENT: PERRLA Respiratory exam: PRESENT: clear to auscultation stephen Cardiovascular exam: PRESENT: +S1, +S2 GI/Abdominal exam: PRESENT: soft Neurological exam: PRESENT: alert Results Laboratory Results: 07/17/19 06:25 07/17/19 12:50 07/17/19 07/17/19 07/17/19 06:25 06:25 12:50 WBC 7.7 RBC 3.47 L Hgb 10.4 L Hct 32.1 L MCV 93 MCH 30.1 MCHC 32.5 RDW 18.3 H Plt Count 168 Seg Neutrophils % 65.3 Sodium 141.4 Potassium 4.3 Chloride 113 H Carbon Dioxide 20 L Anion Gap 8 BUN 7 Creatinine 1.31 H 1.40 H Est GFR ( Amer) 50 L 46 L Glucose 72 L Calcium 8.4 Total Bilirubin 0.4 AST 102 H Alkaline Phosphatase 87 Total Protein 6.5 Albumin 2.9 L 07/09/19 07/09/19 20:05 20:05 Creatine Kinase 72 CK-MB (CK-2) 1.77 Impressions: Head CT 07/09/19 17:24 IMPRESSION: CHRONIC MICROVASCULAR ISCHEMIA. NO ACUTE IMAGING FINDINGS IN THE BRAIN. EVIDENCE OF ACUTE STROKE: NO. Chest Ultrasound 07/10/19 08:49 IMPRESSION: No effusion visualized. Chest X-Ray 07/11/19 00:00 IMPRESSION: Persistent small left effusion and left basilar airspace disease. Findings are improved when compared to prior study. Assessment & Plan - Diagnosis (1) Healthcare-associated pneumonia Is this a current diagnosis for this admission?: Yes (2) Acute kidney injury Is this a current diagnosis for this admission?: Yes (3) Dehydration Is this a current diagnosis for this admission?: Yes (4) T2DM (type 2 diabetes mellitus) Qualifiers: Diabetes mellitus structural worker insulin use: with structural worker use Diabetes mellitus complication status: with neurologic complications Diabetes mellitus complication detail: with polyneuropathy Qualified Code(s): E11.42 - Type 2 diabetes mellitus with diabetic polyneuropathy; 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 Is this a current diagnosis for this admission?: Yes (5) MRSA pneumonia Qualifiers: Laterality: unspecified laterality Is this a current diagnosis for this admission?: Yes (6) Urinary tract infection due to extended-spectrum beta lactamase (ESBL) producing Escherichia coli Is this a current diagnosis for this admission?: Yes (7) Pseudomonas pneumonia Qualifiers: Laterality: unspecified laterality Is this a current diagnosis for this admission?: Yes - Time Time Spent with patient: 25-34 minutes - Plan Summary Plan Summary: She has finished 7-day course of IV antibiotic, she be discharged Home on Wednesday
[2019-07-17] MEDS: CIPROFLOXACIN HCL 0.3% OPH SOLN 2.5 ML OU SCH (22:07)
[2019-07-18] MEDS: HYDROMORPHONE HCL INJ/PF 2 MG/ML AMPULE IV PRN ×6 (01:01→22:10)
[2019-07-18] MEDS: NORMAL SALINE 1000 ML 1,000 ML IV PRN ×2 (01:02→18:09)
[2019-07-18] MEDS: HEPARIN SOD (PORCINE) 5,000 UNIT/ML 1 ML VIAL SUBCUT SCH ×3 (05:24→22:10)
[2019-07-18] MEDS: PANTOPRAZOLE SODIUM 40 MG TABLET.DR PO SCH (05:24)
[2019-07-18] MEDS: GABAPENTIN 300 MG CAPSULE PO SCH ×2 (05:24→18:03)
[2019-07-18 06:44] LABS: ABSOLUTE EOSINOPHILS # (AUTO) 0.4 10^3/uL (0.0-0.6); ABSOLUTE LYMPHOCYTES (AUTO) 1.6 10^3/uL (0.5-4.7); ABSOLUTE MONOCYTES (AUTO) 0.5 10^3/uL (0.1-1.4); ABSOLUTE NEUT (AUTO) 3.7 10^3/uL (1.7-8.2); BASOPHILS % (AUTO) 0.6 % (0-2); EOSINOPHILS % (AUTO) 6.3 % (0-6); HEMATOCRIT 31.6 % (36.0-47.0); HEMOGLOBIN 10.4 g/dL (12.0-15.5); LYMPHOCYTES % (AUTO) 24.9 % (13-45); MEAN CORPUSCULAR HEMOGLOBIN 30.3 pg (27.0-33.4); MEAN CORPUSCULAR HGB CONC 32.8 g/dL (32.0-36.0); MEAN CORPUSCULAR VOLUME 93 fl (80-97); MONOCYTES % (AUTO) 8.1 % (3-13); PLATELET COUNT 161 10^3/uL (150-450); RED BLOOD COUNT 3.42 10^6/uL (3.72-5.28); RED CELL DISTRIBUTION WIDTH 18.4 % (11.5-14.0); SEGMENTED NEUTROPHILS % (AUTO) 60.1 % (42-78); TOTAL CELLS COUNTED % (AUTO) 100 %; WHITE BLOOD COUNT 6.2 10^3/uL (4.0-10.5)
[2019-07-18 07:07] LABS: ALKALINE PHOSPHATASE 87 U/L (38-126); ANION GAP 8 (5-19); ASPARTATE AMINO TRANSFERASE 101 U/L (14-36); BILIRUBIN,DIRECT 0.2 mg/dL (0.0-0.4); BILIRUBIN,TOTAL 0.5 mg/dL (0.2-1.3); BLOOD UREA NITROGEN 7 mg/dL (7-20); CALCIUM 8.5 mg/dL (8.4-10.2); CARBON DIOXIDE 20 mmol/L (22-30); CHLORIDE 115 mmol/L (98-107); POTASSIUM 4.4 mmol/L (3.6-5.0); TOTAL PROTEIN 6.5 g/dL (6.3-8.2)
[2019-07-18 07:16] LABS: GLUCOSE 67 mg/dL (75-110)
[2019-07-18] MEDS: INSULIN LISPRO 100 UNIT/ML 3 ML VIAL SUBCUT SCH ×4 (08:51→21:46)
[2019-07-18] MEDS: CIPROFLOXACIN HCL 0.3% OPH SOLN 2.5 ML OU SCH ×4 (09:38→22:11)
[2019-07-18] MEDS: COLCHICINE 0.6 MG TABLET PO SCH (09:38)
[2019-07-18] MEDS: ALLOPURINOL 100 MG TABLET PO SCH (09:38)
[2019-07-18] MEDS: METOPROLOL SUCCINATE 50 MG TAB.SR.24H PO SCH (09:38)
[2019-07-18] MEDS: CALCITRIOL 0.25 MCG CAPSULE PO SCH (09:38)
[2019-07-18] MEDS: SITAGLIPTIN PHOSPHATE 50 MG TABLET PO SCH (09:38)
[2019-07-18] MEDS: MEROPENEM 1 GM in NORMAL SALINE 50 ML IV SCH ×2 (09:39→22:12)
[2019-07-18] MEDS: VANCOMYCIN HCL 1,000 MG in DEXTROSE 5%-WATER 250 ML IV SCH (12:39)
--- NOTE | 2019-07-18 23:08 | PDOC PROGRESS REPORT ---
Subjective Progress Note for:: 07/18/19 Subjective:: Patient seen by the bedside, improved Reason For Visit: METABOLIC ACIDOSIS,ACUTE KIDNEY INJURY,PNEUMONIA Physical Exam Vital Signs: Temp Pulse Resp BP Pulse Ox 98.0 F 78 18 152/81 H 100 07/18/19 19:31 07/18/19 19:31 07/18/19 19:31 07/18/19 19:31 07/18/19 19:31 Intake & Output 07/17/19 07/18/19 07/19/19 06:59 06:59 06:59 Intake Total 4730 3030 2275 Output Total 2300 1070 600 Balance 2430 1960 1675 Weight 114.4 kg 117.6 kg General appearance: PRESENT: no acute distress Eye exam: PRESENT: PERRLA Respiratory exam: PRESENT: clear to auscultation stephen Cardiovascular exam: PRESENT: +S1, +S2 GI/Abdominal exam: PRESENT: soft Results Laboratory Results: 07/18/19 06:05 07/18/19 06:05 07/18/19 07/18/19 06:05 06:05 WBC 6.2 RBC 3.42 L Hgb 10.4 L Hct 31.6 L MCV 93 MCH 30.3 MCHC 32.8 RDW 18.4 H Plt Count 161 Seg Neutrophils % 60.1 Sodium 143.0 Potassium 4.4 Chloride 115 H Carbon Dioxide 20 L Anion Gap 8 BUN 7 Creatinine 1.31 H Est GFR ( Amer) 50 L Glucose 67 L Calcium 8.5 Total Bilirubin 0.5 AST 101 H Alkaline Phosphatase 87 Total Protein 6.5 Albumin 3.0 L 07/09/19 07/09/19 20:05 20:05 Creatine Kinase 72 CK-MB (CK-2) 1.77 Impressions: Head CT 07/09/19 17:24 IMPRESSION: CHRONIC MICROVASCULAR ISCHEMIA. NO ACUTE IMAGING FINDINGS IN THE BRAIN. EVIDENCE OF ACUTE STROKE: NO. Chest Ultrasound 07/10/19 08:49 IMPRESSION: No effusion visualized. Chest X-Ray 07/11/19 00:00 IMPRESSION: Persistent small left effusion and left basilar airspace disease. Findings are improved when compared to prior study. 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 Diabetes mellit us complication status: with neurologic complications Diabetes mellitus c omplication detail: with polyneuropathy Qualified Code(s): E11.42 - Type 2 diabetes mellitus with diabetic polyneuropathy; Z79.4 - intermission coordinator (current) use of insulin Is this a current diagnosis for this admission?: Yes (5) MRSA pneumonia Qualifiers: Laterality: unspecified laterality Is this a current diagnosis for this admission?: Yes (6) Urinary tract infection due to extended-spectrum beta lactamase (ESBL) producing Escherichia coli Is this a current diagnosis for this admission?: Yes (7) Pseudomonas pneumonia Qualifiers: Laterality: unspecified laterality Is this a current diagnosis for this admission?: Yes - Time Time Spent with patient: 35 or more minutes
[2019-07-19] MEDS: HYDROMORPHONE HCL INJ/PF 2 MG/ML AMPULE IV PRN ×4 (02:33→14:47)
[2019-07-19] MEDS: HEPARIN SOD (PORCINE) 5,000 UNIT/ML 1 ML VIAL SUBCUT SCH (05:35)
[2019-07-19] MEDS: PANTOPRAZOLE SODIUM 40 MG TABLET.DR PO SCH (05:36)
[2019-07-19] MEDS: GABAPENTIN 300 MG CAPSULE PO SCH (05:36)
[2019-07-19] MEDS: NORMAL SALINE 1000 ML 1,000 ML IV PRN (05:38)
[2019-07-19] MEDS: INSULIN LISPRO 100 UNIT/ML 3 ML VIAL SUBCUT SCH ×2 (09:28→11:58)
[2019-07-19] MEDS: SITAGLIPTIN PHOSPHATE 50 MG TABLET PO SCH (09:29)
[2019-07-19] MEDS: METOPROLOL SUCCINATE 50 MG TAB.SR.24H PO SCH (09:37)
[2019-07-19] MEDS: CALCITRIOL 0.25 MCG CAPSULE PO SCH (09:38)
[2019-07-19] MEDS: CIPROFLOXACIN HCL 0.3% OPH SOLN 2.5 ML OU SCH (09:38)
[2019-07-19] MEDS: COLCHICINE 0.6 MG TABLET PO SCH (09:38)
[2019-07-19] MEDS: ALLOPURINOL 100 MG TABLET PO SCH (09:38)
[2019-07-19] MEDS: MEROPENEM 1 GM in NORMAL SALINE 50 ML IV SCH (09:38)
[2019-07-19] MEDS: LOPERAMIDE HCL 2 MG CAPSULE PO PRN (10:59)
[2019-07-19] MEDS: VANCOMYCIN HCL 1,000 MG in DEXTROSE 5%-WATER 250 ML IV SCH (12:38)
[2019-07-19 14:20] VITALS: BP 133/66
--- NOTE | 2019-07-19 19:42 | PDOC DISCHARGE SUMMARY ---
Impression - Admit/DC Date/PCP Admission Date/Primary Care Provider: 07/09/19 22:54 LSIA MATA MD Discharge Date: 07/19/19 - Discharge Diagnosis (1) MRSA pneumonia Is this a current diagnosis for this admission?: Yes (2) UTI due to extended-spectrum beta lactamase (ESBL) producing Escherichia coli Is this a current diagnosis for this admission?: Yes (3) Healthcare-associated pneumonia Is this a current diagnosis for this admission?: Yes (4) Acute kidney injury Is this a current diagnosis for this admission?: Yes (5) Dehydration Is this a current diagnosis for this admission?: Yes (6) T2DM (type 2 diabetes mellitus) Is this a current diagnosis for this admission?: Yes (7) Pseudomonas pneumonia Is this a current diagnosis for this admission?: Yes - Additional Information Discharge Diet: As Tolerated Discharge Activity: Activity As Tolerated, Balance Activity w/Rest, Energy Conservation, Slowly Increase Activity Referrals: LISA MATA MD [Primary Care Provider] - 07/26/19 10:00 am Home Medications: RX: Albuterol Sulfate [Albuterol Sulfate Hfa] 2 puff IH Q4HP PRN 06/19/19 RX: Allopurinol [Zyloprim 100 mg Tablet] 100 mg PO DAILY 06/19/19 RX: Calcitriol [Rocaltrol 0.5 mcg Capsule] 0.5 mcg PO DAILY 06/19/19 RX: Clobetasol Propionate [Temovate 0.05% Cream 15 gm] 1 applic TOP BID 06/19/19 RX: Clotrimazole/Betamethasone Dip [Lotrisone Cream 15 gm] 1 applic TOP BID 06/19/19 RX: Colchicine [Colcrys 0.6 mg Tablet] 0.6 mg PO DAILY 06/19/19 RX: Dapagliflozin Propanediol [Farxiga] 5 mg PO DAILY 06/19/19 RX: Fluconazole [Diflucan] 150 mg PO FR@1000 06/19/19 RX: Gabapentin [Neurontin] 600 mg PO Q6 06/19/19 RX: Loperamide HCl [Imodium 2 mg Capsule] 2 mg PO .PC EACH LOOSE STOOL 06/19/19 RX: Metoprolol Succinate [Toprol Xl] 200 mg PO DAILY 06/19/19 RX: Nystatin [Mycostatin Topical Powder 15 gm] 1 applic TOP BID 06/19/19 RX: Oxycodone HCl [Oxycodone HCl 10 MG Tablet] 10 mg PO Q8HP PRN 06/19/19 RX: Sitagliptin Phosphate [Januvia 50 mg Tablet] 50 mg PO DAILY 06/19/19 History of Present Illiness History of Present Illness: RANDEE VELÁSQUEZ is a 63 year old female, She came to the emergency room last night for evaluation of confusion, the history was that she became confused and not acting right but when she arrived in the emergency room she was oriented was able to endorse her symptoms, there was no shortness of breath, there is no chest pain no abdominal pain. She has a history of high output ileostomy bag, CAD, type 2 diabetes mellitus, history of total colectomy. In the emergency room she was found to have leukocytosis, WBC 18,000 with a left shift also found was serum creatinine 5.87 chest x-ray showed pneumonia with left lower lobe consolidation she also had a low-grade temperature, 99.6 on arrival in the ER because of all these constellation of signs and symptoms, hospital admission was advised by the ED physician. Hospital Course Hospital Course: Patient was admitted for the management of MRSA pneumonia, ESBL E. coli UTI, acute kidney injury due to high output ileostomy bag.She was treated with intravenous vancomycin and meropenem. Initially before MRSA was cultured from the sputum, she was treated empirically with intravenous ceftriaxone and azithromycin.She has history of recurrent acute kidney injury due to volume loss from high output ileostomy bag.Patient is improved with management, she will be discharged home today Physical Exam Vital Signs: Temp Pulse Resp BP Pulse Ox 98.0 F 86 18 133/66 H 98 07/19/19 14:16 07/19/19 14:16 07/19/19 14:16 07/19/19 14:16 07/19/19 14:16 Intake & Output 07/18/19 07/19/19 07/20/19 06:59 06:59 06:59 Intake Total 3030 3325 900 Output Total 1070 1000 1000 Balance 1960 2325 -100 Weight 117.6 kg 117.4 kg General appearance: PRESENT: no acute distress Eye exam: PRESENT: PERRLA Respiratory exam: PRESENT: clear to auscultation stephen Cardiovascular exam: PRESENT: +S1, +S2 GI/Abdominal exam: PRESENT: soft, other - Ileostomy bag Neurological exam: PRESENT: alert, CN II-XII grossly intact Results Laboratory Results: WBC 6.2 10^3/uL (4.0-10.5) 07/18/19 06:05 RBC 3.42 10^6/uL (3.72-5.28) L 07/18/19 06:05 Hgb 10.4 g/dL (12.0-15.5) L 07/18/19 06:05 Hct 31.6 % (36.0-47.0) L 07/18/19 06:05 MCV 93 fl (80-97) 07/18/19 06:05 MCH 30.3 pg (27.0-33.4) 07/18/19 06:05 MCHC 32.8 g/dL (32.0-36.0) 07/18/19 06:05 RDW 18.4 % (11.5-14.0) H 07/18/19 06:05 Plt Count 161 10^3/uL (150-450) 07/18/19 06:05 Lymph % (Auto) 24.9 % (13-45) 07/18/19 06:05 [place] % (Auto) 8.1 % (3-13) 07/18/19 06:05 Eos % (Auto) 6.3 % (0-6) H 07/18/19 06:05 Baso % (Auto) 0.6 % (0-2) 07/18/19 06:05 Absolute Neuts (auto) 3.7 10^3/uL (1.7-8.2) 07/18/19 06:05 Absolute Lymphs (auto) 1.6 10^3/uL (0.5-4.7) 07/18/19 06:05 Absolute Monos (auto) 0.5 10^3/uL (0.1-1.4) 07/18/19 06:05 Absolute Eos (auto) 0.4 10^3/uL (0.0-0.6) 07/18/19 06:05 Absolute Basos (auto) 0.0 10^3/uL (0.0-0.2) 07/18/19 06:05 Total Counted 100 07/09/19 20:05 Seg Neutrophils % 60.1 % (42-78) 07/18/19 06:05 Seg Neuts % (Manual) 70 % (42-78) 07/09/19 20:05 Band Neutrophils % 8 % (3-5) H 07/09/19 20:05 Lymphocytes % (Manual) 13 % (13-45) 07/09/19 20:05 Monocytes % (Manual) 8 % (3-13) 07/09/19 20:05 Eosinophils % (Manual) 1 % (0-6) 07/09/19 20:05 Basophils % (Manual) 0 % (0-2) 07/09/19 20:05 Abs Neuts (Manual) 14.4 10^3/uL (1.7-8.2) H 07/09/19 20:05 Abs Lymphs (Manual) 2.4 10^3/uL (0.5-4.7) 07/09/19 20:05 Abs Monocytes (Manual) 1.5 10^3/uL (0.1-1.4) H 07/09/19 20:05 Absolute Eos (Manual) 0.2 10^3/uL (0.0-0.6) 07/09/19 20:05 Abs Basophils (Manual) 0.0 10^3/uL (0.0-0.2) 07/09/19 20:05 Platelet Comment ADEQUATE 07/09/19 20:05 Anisocytosis 1+ 07/09/19 20:05 PT 16.1 SEC (11.4-15.4) H 07/10/19 09:35 INR 1.28 07/10/19 09:35 APTT 31.8 SEC (23.5-35.8) 07/10/19 09:35 VBG pH 7.24 (7.30-7.42) L 07/09/19 20:05 VBG pCO2 43.0 mmHg (35-63) 07/09/19 20:05 VBG HCO3 17.8 mmol/L (20-32) L 07/09/19 20:05 VBG Base Excess -9.3 mmol/L 07/09/19 20:05 Sodium 143.0 mmol/L (137-145) 07/18/19 06:05 Potassium 4.4 mmol/L (3.6-5.0) 07/18/19 06:05 Chloride 115 mmol/L (98-107) H 07/18/19 06:05 Carbon Dioxide 20 mmol/L (22-30) L 07/18/19 06:05 Anion Gap 8 (5-19) 07/18/19 06:05 BUN 7 mg/dL (7-20) 07/18/19 06:05 Creatinine 1.31 mg/dL (0.52-1.25) H 07/18/19 06:05 Est GFR ( Amer) 50 (>60) L 07/18/19 06:05 Est GFR (MDRD) Non-Af 41 (>60) L 07/18/19 06:05 Glucose 67 mg/dL (75-110) L 07/18/19 06:05 POC Glucose 80 mg/dL (70-110) 07/19/19 11:55 Lactic Acid 1.0 mmol/L (0.7-2.1) 07/09/19 20:19 Calcium 8.5 mg/dL (8.4-10.2) 07/18/19 06:05 Total Bilirubin 0.5 mg/dL (0.2-1.3) 07/18/19 06:05 Direct Bilirubin 0.2 mg/dL (0.0-0.4) 07/18/19 06:05 Neonat Total Bilirubin Not Reportable 07/18/19 06:05 Neonat Direct Bilirubin Not Reportable 07/18/19 06:05 Neonat Indirect Bili Not Reportable 07/18/19 06:05 AST 101 U/L (14-36) H 07/18/19 06:05 ALT 56 U/L (<35) 07/18/19 06:05 Alkaline Phosphatase 87 U/L (38-126) 07/18/19 06:05 Lactate Dehydrogenase 175 U/L (120-246) 07/10/19 09:35 Creatine Kinase 72 U/L (30-135) 07/09/19 20:05 CK-MB (CK-2) 1.77 ng/mL (<4.55) 07/09/19 20:05 Total Protein 6.5 g/dL (6.3-8.2) 07/18/19 06:05 Albumin 3.0 g/dL (3.5-5.0) L 07/18/19 06:05 Lipase 267.6 U/L (23-300) 07/09/19 20:05 Urine Color YELLOW 07/13/19 08:20 Urine Appearance CLOUDY 07/13/19 08:20 Urine pH 5.0 (5.0-9.0) 07/13/19 08:20 Ur Specific [place] 1.014 07/13/19 08:20 Urine Protein 30 mg/dL (NEGATIVE) H 07/13/19 08:20 Urine Glucose (UA) NEGATIVE mg/dL (NEGATIVE) 07/13/19 08:20 Urine Ketones NEGATIVE mg/dL (NEGATIVE) 07/13/19 08:20 Urine Blood SMALL (NEGATIVE) H 07/13/19 08:20 Urine Nitrite NEGATIVE (NEGATIVE) 07/13/19 08:20 Urine Nitrite (Reflex) NEGATIVE (NEGATIVE) 07/09/19 23:30 Urine Bilirubin NEGATIVE (NEGATIVE) 07/13/19 08:20 Urine Urobilinogen NEGATIVE mg/dL (<2.0) 07/13/19 08:20 Ur Leukocyte Esterase LARGE (NEGATIVE) H 07/13/19 08:20 Leukocyte Esterase Rfl LARGE (NEGATIVE) H 07/09/19 23:30 Urine WBC (Auto) >182 /HPF 07/13/19 08:20 Urine RBC (Auto) 5 /HPF 07/13/19 08:20 Urine Bacteria (Auto) 1+ /HPF 07/13/19 08:20 Urine WBC (Reflex) 4 /HPF 07/09/19 23:30 Urine WBC Clumps MANY /HPF 07/13/19 08:20 Squamous Epi Cells Auto 6 /HPF 07/13/19 08:20 Urine Mucus (Auto) RARE /LPF 07/13/19 08:20 Urine Ascorbic Acid NEGATIVE (NEGATIVE) 07/13/19 08:20 Time Trough Drawn 1145 07/16/19 11:45 Vancomycin Trough 14.3 ug/mL (5.0-20.0) 07/16/19 11:45 07/09/19 20:05 CK-MB (CK-2) 1.77 Impressions: Head CT 07/09/19 17:24 IMPRESSION: CHRONIC MICROVASCULAR ISCHEMIA. NO ACUTE IMAGING FINDINGS IN THE BRAIN. EVIDENCE OF ACUTE STROKE: NO. Chest X-Ray 07/09/19 18:16 IMPRESSION: Left pleural effusion and patchy left lower lobe airspace opacities concerning for pneumonia. Chest Ultrasound 07/10/19 08:49 IMPRESSION: No effusion visualized. Chest X-Ray 07/11/19 00:00 IMPRESSION: Persistent small left effusion and left basilar airspace disease. Findings are improved when compared to prior study. Stroke Is this a Stroke Patient?: No Acute Heart Failure - Is this a Heart Failure Patient?: No
== END 2019-07-19 15:35 | disposition home or self-care (01) | DRG 178 ==
LOC: ER 16:53 → EH 22:54 → 3N 07-10 00:55
PROVIDERS: ADMIT Internal Medicine; ATTEND Internal Medicine
DX: J15.212 Pneumonia due to Methicillin resistant Staphylococcus aureus (principal); N39.0 Urinary tract infection, site not specified; N17.9 Acute kidney failure, unspecified; Z16.12 Extended spectrum beta lactamase (ESBL) resistance; E87.2 Acidosis; I50.22 Chronic systolic (congestive) heart failure; B96.20 Unspecified Escherichia coli [E. coli] as the cause of diseases classified elsewhere; J15.1 Pneumonia due to Pseudomonas; I11.0 Hypertensive heart disease with heart failure; Z93.2 Ileostomy status; I25.10 Atherosclerotic heart disease of native coronary artery without angina pectoris; Z90.49 Acquired absence of other specified parts of digestive tract; I48.91 Unspecified atrial fibrillation; I25.2 Old myocardial infarction; E78.5 Hyperlipidemia, unspecified; Z86.718 Personal history of other venous thrombosis and embolism; K21.9 Gastro-esophageal reflux disease without esophagitis; M19.90 Unspecified osteoarthritis, unspecified site; D64.9 Anemia, unspecified; E11.42 Type 2 diabetes mellitus with diabetic polyneuropathy; Z79.899 Other long term (current) drug therapy; Z88.1 Allergy status to other antibiotic agents; Z88.6 Allergy status to analgesic agent; E86.0 Dehydration; Z79.4 Long term (current) use of insulin; Z96.652 Presence of left artificial knee joint; Z95.5 Presence of coronary angioplasty implant and graft; Z90.710 Acquired absence of both cervix and uterus; Z79.51 Long term (current) use of inhaled steroids
CPT/HCPCS: 36415; 51701; 70450; 71045; 76604; 80053; 80202; 81001; 82550; 82553; 82565; 82803; 82962; 83605; 83615; 83690; 84155; 85025; 85610; 85730; 87040; 87070; 87077; 87086; 87088; 87186; 87205; 93005; 93010; 99285; J0456; J0696; J1170; J1642; J1644; J1815; J2185; J3370; J3490; J7030; J7060; J8499

== ENCOUNTER 2019-07-26 08:49 | Outpatient (CLI) | payer MEDICARE, MEDICAID ==
[2019-07-26 09:03] VITALS: BP 146/72
== END 2019-07-26 14:51 | disposition home or self-care (01) ==
LOC: II 08:49 → 5TH 08:51 → II 14:51
PROVIDERS: ATTEND Internal Medicine
PROC: 3E0437Z Introduction of Electrolytic and Water Balance Substance into Central Vein, Percutaneous Approach (ICD-10-PCS; principal; 2019-07-26)
DX: E86.0 Dehydration (principal); K94.19 Other complications of enterostomy
CPT/HCPCS: 96360; 96361; J1642

== ENCOUNTER 2019-08-02 08:34 | Outpatient (CLI) | payer MEDICARE, MEDICAID ==
[2019-08-02 08:56] VITALS: BP 141/60
== END 2019-08-02 14:10 | disposition home or self-care (01) ==
LOC: II 08:34 → 5TH 08:35 → II 14:10
PROVIDERS: ATTEND Internal Medicine
PROC: 3E0437Z Introduction of Electrolytic and Water Balance Substance into Central Vein, Percutaneous Approach (ICD-10-PCS; principal; 2019-08-02)
DX: E86.0 Dehydration (principal); K94.19 Other complications of enterostomy
CPT/HCPCS: 96360; 96361; J1642

== ENCOUNTER 2019-08-09 08:53 | Outpatient (CLI) | payer MEDICARE, MEDICAID ==
[2019-08-09 09:08] VITALS: BP 145/86
[2019-08-09] MEDS ORDERED: NORMAL SALINE 500 ML IV PRN (09:13)
== END 2019-08-09 14:09 | disposition home or self-care (01) ==
LOC: II 08:53 → 5TH 08:56 → II 14:09
PROVIDERS: ATTEND Internal Medicine
DX: E86.0 Dehydration (principal); K94.19 Other complications of enterostomy
CPT/HCPCS: 96360; 96361; J1642

== ENCOUNTER 2019-08-16 08:43 | Outpatient (CLI) | payer MEDICARE, MEDICAID ==
[2019-08-16] MEDS ORDERED: NORMAL SALINE 500 ML IV PRN (08:56)
[2019-08-16 09:05] VITALS: BP 175/81
== END 2019-08-16 14:14 | disposition home or self-care (01) ==
LOC: II 08:43 → 5TH 08:47 → II 14:14
PROVIDERS: ATTEND Internal Medicine
DX: E86.0 Dehydration (principal); K94.19 Other complications of enterostomy
CPT/HCPCS: 96360; 96361; J1642

== ENCOUNTER 2019-08-31 08:31 | Outpatient (CLI) | payer MEDICARE, MEDICAID ==
[2019-08-31] MEDS ORDERED: NORMAL SALINE 500 ML IV PRN (08:43)
[2019-08-31 09:00] VITALS: BP 127/62
== END 2019-08-31 14:07 | disposition home or self-care (01) ==
LOC: II 08:31 → 5TH 08:32 → II 14:07
PROVIDERS: ATTEND Internal Medicine
DX: E86.0 Dehydration (principal); K94.19 Other complications of enterostomy
CPT/HCPCS: 96360; 96361; J1642

== ENCOUNTER 2019-09-07 08:26 | Outpatient (CLI) | payer MEDICARE, MEDICAID ==
[2019-09-07 08:49] VITALS: BP 118/66
== END 2019-09-07 14:02 | disposition home or self-care (01) ==
LOC: II 08:26 → 5TH 08:27 → II 14:02
PROVIDERS: ATTEND Internal Medicine
DX: E86.0 Dehydration (principal); K94.19 Other complications of enterostomy
CPT/HCPCS: 96360; 96361; J1642

== ENCOUNTER 2019-09-13 08:26 | Outpatient (CLI) | payer MEDICARE, MEDICAID ==
[2019-09-13 08:37] VITALS: BP 143/77
== END 2019-09-13 14:05 | disposition home or self-care (01) ==
LOC: II 08:26 → 5TH 08:28 → II 14:05
PROVIDERS: ATTEND Internal Medicine
DX: E86.0 Dehydration (principal); K94.19 Other complications of enterostomy
CPT/HCPCS: 96360; 96361; J1642

== ENCOUNTER 2019-09-20 08:30 | Outpatient (CLI) | payer MEDICARE, MEDICAID ==
[2019-09-20] MEDS ORDERED: NORMAL SALINE 500 ML IV PRN (08:45)
[2019-09-20 08:48] VITALS: BP 154/79
== END 2019-09-20 14:00 | disposition home or self-care (01) ==
LOC: II 08:30 → 5TH 08:32 → II 14:00
PROVIDERS: ATTEND Internal Medicine
DX: E86.0 Dehydration (principal); K94.19 Other complications of enterostomy
CPT/HCPCS: 96360; 96361; J1642

== ENCOUNTER 2019-09-27 08:32 | Outpatient (CLI) | payer MEDICARE, MEDICAID ==
[2019-09-27 08:48] VITALS: BP 170/76
[2019-09-27] MEDS ORDERED: NORMAL SALINE 500 ML IV PRN (10:13)
== END 2019-09-27 14:14 | disposition home or self-care (01) ==
LOC: II 08:32 → 5TH 08:46 → II 14:14
PROVIDERS: ATTEND Internal Medicine
DX: E86.0 Dehydration (principal); K94.19 Other complications of enterostomy
CPT/HCPCS: 96360; 96361; J1642

== ENCOUNTER 2019-10-04 08:41 | Outpatient (CLI) | payer MEDICARE, MEDICAID ==
[2019-10-04 08:59] VITALS: BP 151/82
== END 2019-10-04 14:16 | disposition home or self-care (01) ==
LOC: II 08:41 → 5TH 08:43 → II 14:16
PROVIDERS: ATTEND Internal Medicine
DX: E86.0 Dehydration (principal); K94.19 Other complications of enterostomy
CPT/HCPCS: 96360; 96361; J1642

== ENCOUNTER 2019-10-11 08:38 | Outpatient (CLI) | payer MEDICARE, MEDICAID ==
[2019-10-11 08:51] VITALS: BP 147/76
== END 2019-10-11 14:19 | disposition home or self-care (01) ==
LOC: II 08:38 → 5TH 08:40 → II 14:19
PROVIDERS: ATTEND Internal Medicine
DX: E86.0 Dehydration (principal); K94.19 Other complications of enterostomy
CPT/HCPCS: 96360; 96361; J1642

== ENCOUNTER 2019-10-18 08:37 | Outpatient (CLI) | payer MEDICARE, MEDICAID ==
[2019-10-18 09:10] VITALS: BP 150/79
== END 2019-10-18 14:26 | disposition home or self-care (01) ==
LOC: II 08:37 → 5TH 08:39 → II 14:26
PROVIDERS: ATTEND Internal Medicine
DX: E86.0 Dehydration (principal); K94.19 Other complications of enterostomy
CPT/HCPCS: 96360; 96361; J1642

== ENCOUNTER 2019-10-25 08:35 | Outpatient (CLI) | payer MEDICARE, MEDICAID ==
[2019-10-25] MEDS ORDERED: NORMAL SALINE 500 ML IV PRN (08:47)
[2019-10-25 08:58] VITALS: BP 155/73
== END 2019-10-25 15:15 | disposition home or self-care (01) ==
LOC: II 08:35 → 5TH 08:37 → II 15:15
PROVIDERS: ATTEND Internal Medicine
DX: E86.0 Dehydration (principal); K94.19 Other complications of enterostomy
CPT/HCPCS: 96360; 96361; J1642

== ENCOUNTER 2019-11-01 08:32 | Outpatient (CLI) | payer MEDICARE, MEDICAID ==
[2019-11-01 08:58] VITALS: BP 150/78
== END 2019-11-01 14:10 | disposition home or self-care (01) ==
LOC: II 08:32 → 5TH 08:46 → II 14:10
PROVIDERS: ATTEND Internal Medicine
DX: E86.0 Dehydration (principal); K94.19 Other complications of enterostomy
CPT/HCPCS: 96360; 96361; J1642

== ENCOUNTER 2019-11-08 08:39 | Outpatient (CLI) | payer MEDICARE, MEDICAID ==
[~2019-11-08 08:39] MED LIST changes: +NORMAL SALINE 500 ML @ KVO IV PRN; -NORMAL SALINE 500 ML IV PRN
[2019-11-08 09:17] VITALS: BP 138/72
== END 2019-11-08 14:10 | disposition home or self-care (01) ==
LOC: II 08:39 → 5TH 08:42 → II 14:10
PROVIDERS: ATTEND Internal Medicine
DX: E86.0 Dehydration (principal); K94.19 Other complications of enterostomy
CPT/HCPCS: 96360; 96361; J1642

== ENCOUNTER 2019-11-15 08:38 | Outpatient (CLI) | payer MEDICARE, MEDICAID ==
[~2019-11-15 08:38] MED LIST changes: -NORMAL SALINE 500 ML @ KVO IV PRN; +NORMAL SALINE 500 ML IV PRN
[2019-11-15 09:04] VITALS: BP 141/78
== END 2019-11-15 14:35 | disposition home or self-care (01) ==
LOC: II 08:38 → 5TH 08:41 → II 14:35
PROVIDERS: ATTEND Internal Medicine
DX: E86.0 Dehydration (principal); K94.19 Other complications of enterostomy
CPT/HCPCS: 96360; 96361; J1642

== ENCOUNTER 2019-11-22 08:38 | Outpatient (CLI) | payer MEDICARE, MEDICAID ==
[2019-11-22 09:06] VITALS: BP 149/76
== END 2019-11-22 14:20 | disposition home or self-care (01) ==
LOC: II 08:38 → 5TH 08:42 → II 14:20
PROVIDERS: ATTEND Internal Medicine
DX: E86.0 Dehydration (principal); K94.19 Other complications of enterostomy
CPT/HCPCS: 96360; 96361; J1642

== ENCOUNTER 2019-11-29 08:32 | Outpatient (CLI) | payer MEDICARE, MEDICAID ==
[2019-11-29 08:51] VITALS: BP 156/77
== END 2019-11-29 14:18 | disposition home or self-care (01) ==
LOC: II 08:32 → 5TH 08:32 → II 14:18
PROVIDERS: ATTEND Internal Medicine
DX: E86.0 Dehydration (principal); K94.19 Other complications of enterostomy
CPT/HCPCS: 96360; 96361; J1642

== ENCOUNTER 2019-12-06 08:32 | Outpatient (CLI) | payer MEDICARE, MEDICAID ==
[2019-12-06 08:42] VITALS: BP 189/88
== END 2019-12-06 14:00 | disposition home or self-care (01) ==
LOC: II 08:32 → 5TH 08:34 → II 14:00
PROVIDERS: ATTEND Internal Medicine
DX: E86.0 Dehydration (principal); K94.19 Other complications of enterostomy
CPT/HCPCS: 96360; 96361; J1642

== ENCOUNTER 2019-12-13 08:25 | Outpatient (CLI) | payer MEDICARE, MEDICAID ==
[2019-12-13 08:56] VITALS: BP 149/82
== END 2019-12-13 14:15 | disposition home or self-care (01) ==
LOC: II 08:25 → 5TH 08:39 → II 14:15
PROVIDERS: ATTEND Internal Medicine
DX: E86.0 Dehydration (principal); K94.19 Other complications of enterostomy
CPT/HCPCS: 96360; 96361; J1642

== ENCOUNTER 2019-12-21 08:47 | Outpatient (CLI) | payer MEDICARE, MEDICAID ==
[2019-12-21 09:27] VITALS: BP 135/72
== END 2019-12-21 14:04 | disposition home or self-care (01) ==
LOC: II 08:47 → 5TH 08:50 → II 14:04
PROVIDERS: ATTEND Internal Medicine
DX: E86.0 Dehydration (principal); K94.19 Other complications of enterostomy
CPT/HCPCS: 96360; 96361; J1642

== ENCOUNTER 2019-12-27 08:38 | Outpatient (CLI) | payer MEDICARE, MEDICAID ==
[2019-12-27 09:05] VITALS: BP 178/84
[2019-12-27] MEDS ORDERED: NORMAL SALINE 500 ML IV PRN (10:00)
== END 2019-12-27 14:01 | disposition home or self-care (01) ==
LOC: II 08:38 → 5TH 08:39 → II 14:01
PROVIDERS: ATTEND Internal Medicine
DX: E86.0 Dehydration (principal); K94.19 Other complications of enterostomy
CPT/HCPCS: 96360; 96361; J1642

== ENCOUNTER 2020-01-03 08:34 | Outpatient (CLI) | payer MEDICARE, MEDICAID ==
[2020-01-03 08:43] VITALS: BP 163/71
== END 2020-01-03 14:21 | disposition home or self-care (01) ==
LOC: II 08:34 → 5TH 08:35 → II 14:21
PROVIDERS: ATTEND Internal Medicine
DX: E86.0 Dehydration (principal); K94.19 Other complications of enterostomy
CPT/HCPCS: 96360; 96361; J1642

== ENCOUNTER 2020-01-10 08:38 | Outpatient (CLI) | payer MEDICARE, MEDICAID ==
[2020-01-10 09:23] VITALS: BP 159/73
== END 2020-01-10 14:26 | disposition home or self-care (01) ==
LOC: II 08:38 → 5TH 08:42 → II 14:26
PROVIDERS: ATTEND Internal Medicine
DX: E86.0 Dehydration (principal); K94.19 Other complications of enterostomy
CPT/HCPCS: 96360; 96361; J1642

== ENCOUNTER 2020-01-17 08:35 | Outpatient (CLI) | payer MEDICARE, MEDICAID ==
[2020-01-17] MEDS ORDERED: NORMAL SALINE 500 ML IV PRN (08:45)
[2020-01-17 09:04] VITALS: BP 152/83
== END 2020-01-17 14:30 | disposition home or self-care (01) ==
LOC: II 08:35 → 5TH 08:39 → II 14:30
PROVIDERS: ATTEND Internal Medicine
DX: E86.0 Dehydration (principal); K94.19 Other complications of enterostomy
CPT/HCPCS: 96360; 96361; J1642

== ENCOUNTER 2020-01-24 08:40 | Outpatient (CLI) | payer MEDICARE, MEDICAID ==
[2020-01-24] MEDS ORDERED: NORMAL SALINE 500 ML IV ONE (09:00)
[2020-01-24 09:13] VITALS: BP 140/88
== END 2020-01-24 14:30 | disposition home or self-care (01) ==
LOC: II 08:40 → 5TH 09:13 → II 14:30
PROVIDERS: ATTEND Internal Medicine
DX: E86.0 Dehydration (principal); K94.19 Other complications of enterostomy
CPT/HCPCS: 96360; 96361; J1642

== ENCOUNTER 2020-01-31 08:40 | Outpatient (CLI) | payer MEDICARE, MEDICAID ==
[2020-01-31 08:59] VITALS: BP 108/76
[2020-01-31] MEDS ORDERED: NORMAL SALINE 500 ML IV PRN (09:07)
== END 2020-01-31 14:25 | disposition home or self-care (01) ==
LOC: II 08:40 → 5TH 08:41 → II 14:25
PROVIDERS: ATTEND Internal Medicine
DX: E86.0 Dehydration (principal); K94.19 Other complications of enterostomy
CPT/HCPCS: 96360; 96361; J1642

== ENCOUNTER 2020-02-07 08:34 | Outpatient (CLI) | payer MEDICARE, MEDICAID ==
[2020-02-07 08:59] VITALS: BP 135/72
== END 2020-02-07 14:04 | disposition home or self-care (01) ==
LOC: II 08:34 → 5TH 08:37 → II 14:04
PROVIDERS: ATTEND Internal Medicine
DX: E86.0 Dehydration (principal); K94.19 Other complications of enterostomy
CPT/HCPCS: 96360; 96361; J1642

== ENCOUNTER 2020-02-14 09:01 | Outpatient (CLI) | payer MEDICARE, MEDICAID ==
[2020-02-14 09:13] VITALS: BP 147/84
== END 2020-02-14 14:30 | disposition home or self-care (01) ==
LOC: II 09:01 → 5TH 09:03 → II 14:30
PROVIDERS: ATTEND Internal Medicine
DX: E86.0 Dehydration (principal); K94.19 Other complications of enterostomy
CPT/HCPCS: 96360; 96361; J1642

== ENCOUNTER 2020-02-19 12:27 | Inpatient (IN) | payer MEDICARE, MEDICAID ==
--- NOTE | 2020-02-19 13:58 | RADIOLOGY REPORT (SQ) ---
EXAM DESCRIPTION: CHEST SINGLE VIEW IMAGES COMPLETED DATE/TIME: 02/19/2020 1:48 pm REASON FOR STUDY: pneumonia COMPARISON: None. EXAM PARAMETERS: NUMBER OF VIEWS: One view. TECHNIQUE: Single frontal radiographic view of the chest acquired. RADIATION DOSE: NA LIMITATIONS: None. FINDINGS: LUNGS AND PLEURA: Persistent changes in the left base. However, the costophrenic angle ca n be seen. MEDIASTINUM AND HILAR STRUCTURES: No masses. Contour normal. HEART AND VASCULAR STRUCTURES: Heart normal in size. Normal vasculature. BONES: No acute findings. HARDWARE: None in the chest. OTHER: No other significant finding. IMPRESSION: Scarring versus minimal airspace disease in the left lower lobe. No new finding. TECHNICAL DOCUMENTATION: JOB ID: [id number] [employer]- All Rights Reserved Reading location - IP/workstation name: [email or web address]
[2020-02-19 14:27] LABS: ARTERIAL BLOOD H2CO3 1.78 mmol/L (1.05-1.35); ARTERIAL BLOOD HCO3 33.8 mmol/L (20-24); ARTERIAL BLOOD O2 SATURATION 98.5 % (94-98); ARTERIAL BLOOD PCO2 59.3 mmHg (35-45); ARTERIAL BLOOD PH 7.37 (7.35-7.45); ARTERIAL BLOOD PO2 130.8 mmHg (80-100); ARTERIAL BLOOD TOTAL CO2 35.6 mmol/L (21-25)
[2020-02-19 14:29] LABS: ARTERIAL BLOOD FIO2 6L
[2020-02-19 15:00] LABS: ABSOLUTE EOSINOPHILS # (AUTO) 0.1 10^3/uL (0.0-0.6); ABSOLUTE LYMPHOCYTES (AUTO) 1.8 10^3/uL (0.5-4.7); ABSOLUTE MONOCYTES (AUTO) 1.1 10^3/uL (0.1-1.4); BASOPHILS % (AUTO) 0.4 % (0-2); EOSINOPHILS % (AUTO) 1.1 % (0-6); HEMATOCRIT 33.5 % (36.0-47.0); HEMOGLOBIN 10.7 g/dL (12.0-15.5); LYMPHOCYTES % (AUTO) 12.7 % (13-45); MEAN CORPUSCULAR HEMOGLOBIN 27.9 pg (27.0-33.4); MEAN CORPUSCULAR HGB CONC 31.9 g/dL (32.0-36.0); MEAN CORPUSCULAR VOLUME 87 fl (80-97); MONOCYTES % (AUTO) 8.1 % (3-13); PLATELET COUNT 115 10^3/uL (150-450); RED BLOOD COUNT 3.84 10^6/uL (3.72-5.28); RED CELL DISTRIBUTION WIDTH 16.7 % (11.5-14.0); SEGMENTED NEUTROPHILS % (AUTO) 77.7 % (42-78); TOTAL CELLS COUNTED % (AUTO) 100 %; WHITE BLOOD COUNT 14.1 10^3/uL (4.0-10.5)
[2020-02-19 15:15] LABS: ALBUMIN 3.4 g/dL (3.5-5.0); ALKALINE PHOSPHATASE 67 U/L (38-126); ASPARTATE AMINO TRANSFERASE 32 U/L (14-36); BILIRUBIN,TOTAL 0.5 mg/dL (0.2-1.3); BLOOD UREA NITROGEN 25 mg/dL (7-20); CALCIUM 11.1 mg/dL (8.4-10.2); GLUCOSE 129 mg/dL (75-110); POTASSIUM 4.5 mmol/L (3.6-5.0)
[2020-02-19 15:37] LABS: CARBON DIOXIDE 34 mmol/L (22-30); CHLORIDE 100 mmol/L (98-107)
[2020-02-19 15:39] LABS: ANION GAP 3 (5-19)
[2020-02-19] MEDS ORDERED: LOPERAMIDE HCL 2 MG CAPSULE PO PRN (17:17)
[2020-02-19] MEDS ORDERED: DIPHENOXYLATE HCL/ATROP SULF 2.5-0.025 MG TABLET PO PRN ×2 (17:17→18:20)
[2020-02-19] MEDS ORDERED: ALBUTEROL SULFATE HFA (90 MCG/PUFF) 8 GM MDI (1 MDI/ER DISP) IH PRN (17:17)
[2020-02-19] MEDS ORDERED: (PENDING PHARMACY ID) (Calcitriol [Rocaltrol 0.5 Mcg Capsule] 0.5 MCG) PO SCH (17:30)
[2020-02-19] MEDS ORDERED: (PENDING PHARMACY ID) (Dapagliflozin Propanediol [Farxiga] 5 MG) PO SCH (17:30)
[2020-02-19] MEDS ORDERED: (PENDING PHARMACY ID) (Pravastatin Sodium [Pravastatin Sodium] 40 MG) PO SCH (17:30)
[2020-02-19] MEDS ORDERED: (PENDING PHARMACY ID) (Exenatide Microspheres [Bydureon Pen] 2 MG) SUBCUT SCH (17:30)
[2020-02-19] MEDS ORDERED: (PENDING PHARMACY ID) (Oxycodone Myristate [Xtampza Er] 18 MG) PO SCH (17:30)
[2020-02-19] MEDS ORDERED: ALBUTEROL SULFATE HFA (90 MCG/PUFF) 200 PUFF/8.5 GM MDI IH PRN (17:45)
[2020-02-19] MEDS ORDERED: ERGOCALCIFEROL (VITAMIN D2) 50000 UNIT (1.25 MG) CAPSULE PO SCH (18:00)
[2020-02-19] MEDS ORDERED: INSULIN ASPART 12 UNIT SQ SCH (18:00)
[2020-02-19] MEDS: OXYCODONE HCL IR 5 MG TABLET PO PRN (18:36)
[2020-02-19] MEDS: ASPIRIN 81 MG TABLET, CHEWABLE PO SCH (18:42)
[2020-02-19] MEDS: METOPROLOL SUCCINATE 50 MG TAB.SR.24H PO SCH (18:42)
[2020-02-19] MEDS: ALLOPURINOL 100 MG TABLET PO SCH (18:42)
[2020-02-19] MEDS: SITAGLIPTIN PHOSPHATE 50 MG TABLET PO SCH (18:42)
[2020-02-19] MEDS: VALSARTAN 40 MG TABLET PO SCH (18:42)
[2020-02-19] MEDS: GABAPENTIN 300 MG CAPSULE PO SCH ×2 (18:42→23:40)
[2020-02-19] MEDS: CALCITRIOL 0.25 MCG CAPSULE PO SCH (18:42)
[2020-02-19] MEDS: MAGNESIUM OXIDE 400 MG TABLET PO SCH (18:42)
[2020-02-19] MEDS: CETIRIZINE 5 MG TABLET PO SCH (18:43)
[2020-02-19] MEDS ORDERED: INSULIN GLARGINE,HUM.REC.ANLOG 1,000 UNIT/10 ML VIAL (PYX) SUBCUT ONE (19:00)
--- NOTE | 2020-02-19 20:12 | PDOC H&P ---
History of Present Illness Admission Date/PCP: 02/19/20 12:27 LISA MATA MD History of Present Illness: RANDEE VELÁSQUEZ is a 64 year old female, She came to the office today for follow-up appointment, she stated that she does not feel well, she was found to have increased heart rate, the oxygen saturation was 72%, she was coughing constantly in the office because of this finding it was felt that she needed to be admitted to the hospital for evaluation. ABG on FiO2 6 L PO2 130.8, PCO2 59.3, bicarbonate 33.8, pH 7.37. Chest x-ray suggests pneumonic process,She has multiple comorbid conditions including high output ileostomy bag,Diabetes mellitus complicated with nephropathy, neuropathy. Past Medical History Cardiac Medical History: Reports: Atrial Fibrillation, Coronary Artery Disease, DVT, Myocardial Infarction - 2002, Hyperlipidema, Hypertension Pulmonary Medical History: Reports: Pneumonia - 2006 Neurological Medical History: Endocrine Medical History: Reports: Diabetes Mellitus Type 2 Malignancy Medical History: Reports: Renal (Kidney) Cancer GI Medical History: Reports: Gastroesophageal Reflux Disease, Hiatal Hernia Musculoskeltal Medical History: Reports: Arthritis - Back, Knees Hematology: Reports: Anemia Past Surgical History Past Surgical History: Reports: Cardiac Catheterization, Colostomy, Coronary Stent, Hysterectomy, Ileostomy, Orthopedic Surgery - L knee replacement, right ankle pin, Other - Tracheostomy 10 yrs ago Social History Smoking Status: Former Smoker Frequency of Alcohol Use: None Hx Recreational Drug Use: No Drugs: None Hx Prescription Drug Abuse: No Family History Family History: Reviewed & Not Pertinent, Hypertension Parental Family History Reviewed: Yes Children Family History Reviewed: Yes Sibling(s) Family History Reviewed.: Yes Medication/Allergy Home Medications: RX: Albuterol Sulfate [Albuterol Sulfate Hfa] 2 puff IH Q4HP PRN 06/19/19 RX: Allopurinol [Zyloprim 100 mg Tablet] 100 mg PO DAILY 06/19/19 RX: Calcitriol [Rocaltrol 0.5 mcg Capsule] 0.5 mcg PO DAILY 06/19/19 RX: Clobetasol Propionate [Temovate 0.05% Cream 15 gm] 1 applic TOP BID 06/19/19 RX: Clotrimazole/Betamethasone Dip [Lotrisone Cream 15 gm] 1 applic TOP BID 06/19/19 RX: Colchicine [Colcrys 0.6 mg Tablet] 0.6 mg PO DAILY 06/19/19 RX: Dapagliflozin Propanediol [Farxiga] 5 mg PO DAILY 06/19/19 RX: Gabapentin [Neurontin] 600 mg PO Q6 06/19/19 RX: Loperamide HCl [Imodium 2 mg Capsule] 2 mg PO Q3HP PRN 06/19/19 RX: Metoprolol Succinate [Toprol Xl] 200 mg PO DAILY 06/19/19 RX: Oxycodone HCl [Oxycodone HCl 10 MG Tablet] 10 mg PO Q8HP PRN 06/19/19 RX: Sitagliptin Phosphate [Januvia 50 mg Tablet] 50 mg PO DAILY 06/19/19 Aspirin [Aspirin 81 mg Chewable Tablet] 81 mg PO DAILY 02/19/20 Cholestyramine [Questran 4 gm Packet] 4 gm PO Q12 02/19/20 Diphenoxylate HCl/Atropine [Lomotil Tablet] 1 each PO Q6HP PRN 02/19/20 Ergocalciferol (Vitamin D2) [Drisdol 50,000 Unit (1.25MG) Capsule] 50,000 unit PO .WEEKLY 02/19/20 Exenatide Microspheres [Bydureon Pen] 2 mg SQ .WEEKLY 02/19/20 Hydralazine HCl [Apresoline 50 mg Tablet] 50 mg PO TID 02/19/20 Insulin Aspart [Novolog Flexpen] 12 unit SQ TID 02/19/20 Insulin Glargine,Hum.rec.anlog [Lantus Insulin 100 Unit/mL Insulin Pen] 60 unit SUBCUT Q12 02/19/20 Levocetirizine Dihydrochloride [Xyzal] 5 mg PO QPM 02/19/20 Magnesium Oxide [Mag-Ox 400 mg Tablet] 400 mg PO DAILY 02/19/20 Oxycodone Myristate [Xtampza ER] 18 mg PO Q12 02/19/20 Pregabalin [Lyrica 100 Mg Capsule] 100 mg PO DAILY 02/19/20 Pregabalin [Lyrica 50 Mg Capsule] 50 mg PO DAILY 02/19/20 RX: Pravastatin Sodium 40 mg PO DAILY 02/19/20 Sodium Bicarbonate [Sodium Bicarbonate 650 mg Tablet] 650 mg PO TID 02/19/20 Valsartan [Diovan 40 mg Tablet] 40 mg PO BID 02/19/20 Allergies/Adverse Reactions: ciprofloxacin [From Cipro] Allergy (Severe, Verified 07/09/19 17:18) Hallucinations morphine [Morphine] Allergy (Unknown, Verified 07/09/19 17:18) Review of Systems Constitutional: ABSENT: chills, fever(s), headache(s), weight gain, weight loss Eyes: ABSENT: visual disturbances Ears: ABSENT: hearing changes Cardiovascular: ABSENT: chest pain, dyspnea on exertion, edema, orthropnea, palpitations Respiratory: PRESENT: cough, sputum Gastrointestinal: ABSENT: abdominal pain, constipation, diarrhea, hematemesis, hematochezia, nausea, vomiting Genitourinary: ABSENT: dysuria, hematuria Musculoskeletal: ABSENT: joint swelling Integumentary: ABSENT: rash, wounds Neurological: ABSENT: abnormal gait, abnormal speech, confusion, dizziness, focal weakness, syncope Psychiatric: ABSENT: anxiety, depression, homidical ideation, suicidal ideation Endocrine: ABSENT: cold intolerance, heat intolerance, menstrual abnormalities, polydipsia, polyuria Hematologic/Lymphatic: ABSENT: easy bleeding, easy bruising, lymphadenopathy Physical Exam Vital Signs: Temp Pulse Resp BP Pulse Ox 98.4 F 90 12 122/71 96 02/19/20 15:49 02/19/20 15:49 02/19/20 15:49 02/19/20 15:49 02/19/20 15:49 Intake & Output 02/18/20 02/19/20 02/20/20 06:59 06:59 06:59 Intake Total 200 Balance 200 Weight 123.9 kg General appearance: PRESENT: no acute distress, morbidly obese Head exam: PRESENT: atraumatic, normocephalic Eye exam: PRESENT: PERRLA Ear exam: PRESENT: normal external ear exam Mouth exam: PRESENT: moist, tongue midline Neck exam: PRESENT: full ROM Respiratory exam: PRESENT: rhonchi Cardiovascular exam: PRESENT: RRR, +S1, +S2 Vascular exam: PRESENT: normal capillary refill GI/Abdominal exam: PRESENT: normal bowel sounds, soft Rectal exam: PRESENT: deferred Neurological exam: PRESENT: alert, CN II-XII grossly intact Psychiatric exam: PRESENT: appropriate affect, normal mood Skin exam: PRESENT: dry, intact, warm. ABSENT: cyanosis, rash Results Laboratory Results: 02/19/20 14:30 02/19/20 14:30 02/19/20 02/19/20 02/19/20 14:13 14:30 14:30 WBC 14.1 H RBC 3.84 Hgb 10.7 L Hct 33.5 L MCV 87 MCH 27.9 MCHC 31.9 L RDW 16.7 H Plt Count 115 L Seg Neutrophils % 77.7 Carbonic Acid 1.78 H HCO3/H2CO3 Ratio 18:1 ABG pH 7.37 ABG pCO2 59.3 H ABG pO2 130.8 H ABG HCO3 33.8 H ABG O2 Saturation 98.5 H ABG Base Excess 7.0 FiO2 6L Sodium 137.1 Potassium 4.5 Chloride 100 Carbon Dioxide 34 H Anion Gap 3 L BUN 25 H Creatinine 2.32 H Est GFR ( Amer) 26 L Glucose 129 H Calcium 11.1 H Total Bilirubin 0.5 AST 32 Alkaline Phosphatase 67 Total Protein 7.0 Albumin 3.4 L Impressions: Chest X-Ray 02/19/20 00:00 IMPRESSION: Scarring versus minimal airspace disease in the left lower lobe. No new finding. Assessment & Plan - Diagnosis (1) Acute hypoxemic respiratory failure Is this a current diagnosis for this admission?: Yes Plan: She has acute hypoxemic respiratory, start patient on oxygen via nasal cannula, not presently requiring noninvasive positive pressure ventilation, BiPAP (2) Pneumonia Qualifiers: Pneumonia type: due to unspecified organism Laterality: unspecified laterality Lung location: unspecified part of lung Qualified Code(s): J18.9 - Pneumonia, unspecified organism Is this a current diagnosis for this admission?: Yes Plan: Start IV antibiotic for community-acquired pneumonia (3) Type 2 diabetes mellitus Qualifiers: Diabetes mellitus watermelon harvesting supervisor insulin use: with watermelon harvesting supervisor use Diabetes mellitus complication status: with neurologic complications Diabetes mellitus complication detail: with polyneuropathy Qualified Code(s): E11.42 - Type 2 diabetes mellitus with diabetic polyneuropathy; Z79.4 - intermediate (current) use of insulin; Z79.4 - intermediate (current) use of insulin; Z79.4 - assistant terminal manager (current) use of insulin; Z79.4 - intermediate (current) use of insulin Is this a current diagnosis for this admission?: Yes Plan: continue treatment (4) Morbid obesity due to excess calories Is this a current diagnosis for this admission?: Yes (5) High output ileostomy Is this a current diagnosis for this admission?: Yes (6) Chronic pain syndrome Is this a current diagnosis for this admission?: Yes
[2020-02-19] MEDS ORDERED: CEFEPIME 2 GM/D5W RTU 2 GM/50 ML RTUPB IV SCH (22:00)
[2020-02-19] MEDS: SODIUM BICARBONATE 650 MG TABLET PO SCH (22:24)
[2020-02-19] MEDS: HYDRALAZINE HCL 50 MG TABLET PO SCH (22:24)
[2020-02-19] MEDS: ATORVASTATIN CALCIUM 10 MG TABLET PO SCH (22:24)
[2020-02-19] MEDS: CHOLESTYRAMINE 4 GM PACKET PO SCH (22:25)
[2020-02-19 22:38] LABS: APPEARANCE,URINE CLOUDY; BILIRUBIN,URINE NEGATIVE (NEGATIVE); COLOR,URINE YELLOW; GLUCOSE, URINE 150 mg/dL (NEGATIVE); KETONES,URINE NEGATIVE (NEGATIVE); LEUKOCYTE ESTERASE,URINE LARGE (NEGATIVE); NITRITE,URINE NEGATIVE (NEGATIVE); PROTEIN,URINE 30 mg/dL (NEGATIVE); URINE SPECIFIC GRAVITY 1.011; UROBILINOGEN,URINE NEGATIVE mg/dL (<2.0)
[2020-02-19] MEDS: CEFEPIME HCL 2 GM in DEXTROSE 5%-WATER 50 ML IV SCH (23:29)
[2020-02-19] MEDS: RINGERS SOLUTION,LACTATED 1,000 ML IV PRN (23:29)
[2020-02-20] MEDS: GABAPENTIN 300 MG CAPSULE PO SCH ×4 (00:06→17:16)
[2020-02-20] MEDS ORDERED: INSULIN GLARGINE,HUM.REC.ANLOG 1,000 UNIT/10 ML VIAL (PYX) SUBCUT ONE (05:20)
[2020-02-20] MEDS: INSULIN GLARGINE,HUM.REC.ANLOG 1,000 UNIT/10 ML VIAL SUBCUT SCH ×2 (05:24→17:39)
[2020-02-20] MEDS ORDERED: VALSARTAN 40 MG TABLET ONE (05:36)
[2020-02-20] MEDS: HYDRALAZINE HCL 50 MG TABLET PO SCH ×3 (06:05→21:11)
[2020-02-20] MEDS: VALSARTAN 40 MG TABLET PO SCH ×2 (06:05→17:15)
[2020-02-20] MEDS: INSULIN LISPRO 100 UNIT/ML 3 ML VIAL SUBCUT SCH ×3 (08:39→17:39)
[2020-02-20] MEDS: CEFEPIME HCL 2 GM in DEXTROSE 5%-WATER 50 ML IV SCH ×2 (09:09→21:10)
[2020-02-20] MEDS: ALLOPURINOL 100 MG TABLET PO SCH (09:09)
[2020-02-20] MEDS: SITAGLIPTIN PHOSPHATE 50 MG TABLET PO SCH (09:09)
[2020-02-20] MEDS: LEVOFLOXACIN 750 MG/D5W RTU 750 MG/150 ML RTUPB IV SCH (09:09)
[2020-02-20] MEDS: METOPROLOL SUCCINATE 50 MG TAB.SR.24H PO SCH (09:09)
[2020-02-20] MEDS: SODIUM BICARBONATE 650 MG TABLET PO SCH ×3 (09:09→17:15)
[2020-02-20] MEDS: MAGNESIUM OXIDE 400 MG TABLET PO SCH (09:10)
[2020-02-20] MEDS: CALCITRIOL 0.25 MCG CAPSULE PO SCH (09:10)
[2020-02-20] MEDS: ASPIRIN 81 MG TABLET, CHEWABLE PO SCH (09:10)
[2020-02-20] MEDS: CHOLESTYRAMINE 4 GM PACKET PO SCH ×2 (09:10→21:10)
[2020-02-20] MEDS: CLOBETASOL PROPIONATE 0.05% CREAM 15 GM TOP SCH ×2 (09:12→17:15)
[2020-02-20] MEDS: CLOTRIMAZOLE/BETAMETHASONE DIP CREAM 15 GM TOP SCH ×2 (09:12→17:16)
[2020-02-20] MEDS: RINGERS SOLUTION,LACTATED 1,000 ML IV PRN (09:15)
[2020-02-20] MEDS: OXYCODONE HCL IR 5 MG TABLET PO PRN ×2 (09:25→18:23)
[2020-02-20 13:12] LABS: ABSOLUTE EOSINOPHILS # (AUTO) 0.3 10^3/uL (0.0-0.6); ABSOLUTE MONOCYTES (AUTO) 0.5 10^3/uL (0.1-1.4); BASOPHILS % (AUTO) 0.4 % (0-2); EOSINOPHILS % (AUTO) 2.7 % (0-6); HEMATOCRIT 32.4 % (36.0-47.0); HEMOGLOBIN 10.6 g/dL (12.0-15.5); LYMPHOCYTES % (AUTO) 9.6 % (13-45); MEAN CORPUSCULAR HEMOGLOBIN 28.5 pg (27.0-33.4); MEAN CORPUSCULAR HGB CONC 32.8 g/dL (32.0-36.0); MEAN CORPUSCULAR VOLUME 87 fl (80-97); MONOCYTES % (AUTO) 4.5 % (3-13); PLATELET COUNT 100 10^3/uL (150-450); RED BLOOD COUNT 3.73 10^6/uL (3.72-5.28); SEGMENTED NEUTROPHILS % (AUTO) 82.8 % (42-78); TOTAL CELLS COUNTED % (AUTO) 100 %; WHITE BLOOD COUNT 10.9 10^3/uL (4.0-10.5)
[2020-02-20 13:27] LABS: ALKALINE PHOSPHATASE 60 U/L (38-126); ASPARTATE AMINO TRANSFERASE 28 U/L (14-36); BILIRUBIN,TOTAL 0.5 mg/dL (0.2-1.3); BLOOD UREA NITROGEN 27 mg/dL (7-20); CALCIUM 10.2 mg/dL (8.4-10.2); CARBON DIOXIDE 33 mmol/L (22-30); CHLORIDE 100 mmol/L (98-107); GLUCOSE 141 mg/dL (75-110); POTASSIUM 4.5 mmol/L (3.6-5.0); TOTAL PROTEIN 6.4 g/dL (6.3-8.2)
[2020-02-20 13:38] LABS: ANION GAP 4 (5-19)
[2020-02-20] MEDS: CETIRIZINE 5 MG TABLET PO SCH (17:15)
[2020-02-20] MEDS: ATORVASTATIN CALCIUM 10 MG TABLET PO SCH (21:11)
--- NOTE | 2020-02-20 21:50 | PDOC PROGRESS REPORT ---
Subjective Progress Note for:: 02/20/20 Subjective:: Patient seen by the bedside presently in COVID floor to rule out SARS-CoV-2 infection Reason For Visit: ACUTE HYPOXERMIC RESPIRATORY FAILURE, PNEUMONIA Physical Exam Vital Signs: Temp Pulse Resp BP Pulse Ox 98.0 F 84 12 121/54 L 99 02/20/20 20:11 02/20/20 20:11 02/20/20 20:11 02/20/20 20:11 02/20/20 20:11 Intake & Output 02/19/20 02/20/20 02/21/20 06:59 06:59 06:59 Intake Total 395 1667 Output Total 100 900 Balance 295 767 Weight 123.1 kg General appearance: PRESENT: no acute distress Eye exam: PRESENT: PERRLA Respiratory exam: PRESENT: clear to auscultation stephen Cardiovascular exam: PRESENT: +S1, +S2 GI/Abdominal exam: PRESENT: soft Neurological exam: PRESENT: alert Results Laboratory Results: 02/20/20 12:52 02/20/20 12:52 02/19/20 02/20/20 02/20/20 21:45 12:52 12:52 WBC 10.9 H RBC 3.73 Hgb 10.6 L Hct 32.4 L MCV 87 MCH 28.5 MCHC 32.8 RDW 17.0 H Plt Count 100 L Seg Neutrophils % 82.8 H Sodium 136.6 L Potassium 4.5 Chloride 100 Carbon Dioxide 33 H Anion Gap 4 L BUN 27 H Creatinine 1.94 H Est GFR ( Amer) 32 L Glucose 141 H Calcium 10.2 Total Bilirubin 0.5 AST 28 Alkaline Phosphatase 60 Total Protein 6.4 Albumin 3.0 L Urine Color YELLOW Urine Appearance CLOUDY Urine pH 6.0 Ur Specific [place] 1.011 Urine Protein 30 H Urine Glucose (UA) 150 H Urine Ketones NEGATIVE Urine Blood SMALL H Urine Nitrite NEGATIVE Ur Leukocyte Esterase LARGE H Urine WBC (Auto) 24 Urine RBC (Auto) 6 Impressions: Chest X-Ray 02/19/20 00:00 IMPRESSION: Scarring versus minimal airspace disease in the left lower lobe. No new finding. Assessment & Plan - Diagnosis (1) Acute hypoxemic respiratory failure Is this a current diagnosis for this admission?: Yes Plan: Continue oxygen therapy (2) Pneumonia Qualifiers: Pneumonia type: due to unspecified organism Laterality: unspecified laterality Lung location: unspecified part of lung Qualified Code(s): J18.9 - Pneumonia, unspecified organism Is this a current diagnosis for this admission?: Yes Plan: continue antibiotic (3) Type 2 diabetes mellitus Qualifiers: Diabetes mellitus residential insulin use: with residential use Diabetes mellitus complication status: with neurologic complications Diabetes mellitus complication detail: with polyneuropathy Qualified Code(s): E11.42 - Type 2 diabetes mellitus with diabetic polyneuropathy; Z79.4 - petroleum terminal plant operator (current) use of insulin; Z79.4 - prison (current) use of insulin; Z79.4 - prison (current) use of insulin; Z79.4 - petroleum terminal plant operator (current) use of insulin Is this a current diagnosis for this admission?: Yes (4) Chronic kidney disease, stage 3 Is this a current diagnosis for this admission?: Yes (5) Obesity hypoventilation syndrome Is this a current diagnosis for this admission?: Yes (6) T2DM (type 2 diabetes mellitus) Qualifiers: Diabetes mellitus intermediate designer insulin use: with intermediate designer use Diabetes mellitus complication status: with neurologic complications Diabetes mellitus complication detail: with polyneuropathy Qualified Code(s): E11.42 - Type 2 diabetes mellitus with diabetic polyneuropathy; Z79.4 - prison (current) use of insulin Is this a current diagnosis for this admission?: Yes - Time Time Spent with patient: 25-34 minutes Level of Care: IMCU Medications reviewed and adjusted accordingly: Yes
[2020-02-21] MEDS: GABAPENTIN 300 MG CAPSULE PO SCH ×4 (00:38→17:19)
[2020-02-21] MEDS: OXYCODONE HCL IR 5 MG TABLET PO PRN ×2 (02:41→11:22)
[2020-02-21] MEDS: RINGERS SOLUTION,LACTATED 1,000 ML IV PRN (04:55)
[2020-02-21] MEDS: HYDRALAZINE HCL 50 MG TABLET PO SCH ×3 (07:07→21:15)
[2020-02-21] MEDS: INSULIN GLARGINE,HUM.REC.ANLOG 1,000 UNIT/10 ML VIAL SUBCUT SCH ×2 (07:08→17:19)
[2020-02-21] MEDS: VALSARTAN 40 MG TABLET PO SCH ×2 (07:08→17:22)
[2020-02-21] MEDS: INSULIN LISPRO 100 UNIT/ML 3 ML VIAL SUBCUT SCH ×3 (07:37→16:20)
[2020-02-21] MEDS: ALLOPURINOL 100 MG TABLET PO SCH (09:31)
[2020-02-21] MEDS: ASPIRIN 81 MG TABLET, CHEWABLE PO SCH (09:31)
[2020-02-21] MEDS: SODIUM BICARBONATE 650 MG TABLET PO SCH ×3 (09:31→17:21)
[2020-02-21] MEDS: CLOTRIMAZOLE/BETAMETHASONE DIP CREAM 15 GM TOP SCH ×2 (09:31→17:19)
[2020-02-21] MEDS: CALCITRIOL 0.25 MCG CAPSULE PO SCH (09:31)
[2020-02-21] MEDS: METOPROLOL SUCCINATE 50 MG TAB.SR.24H PO SCH (09:31)
[2020-02-21] MEDS: SITAGLIPTIN PHOSPHATE 50 MG TABLET PO SCH (09:31)
[2020-02-21] MEDS: MAGNESIUM OXIDE 400 MG TABLET PO SCH (09:31)
[2020-02-21] MEDS: CHOLESTYRAMINE 4 GM PACKET PO SCH ×3 (09:32→21:19)
[2020-02-21] MEDS: CEFEPIME HCL 2 GM in DEXTROSE 5%-WATER 50 ML IV SCH ×2 (09:32→21:17)
[2020-02-21] MEDS: CLOBETASOL PROPIONATE 0.05% CREAM 15 GM TOP SCH ×2 (09:33→17:21)
[2020-02-21] MEDS: LEVOFLOXACIN 750 MG/D5W RTU 750 MG/150 ML RTUPB IV SCH (09:45)
[2020-02-21] MEDS: CETIRIZINE 5 MG TABLET PO SCH (17:21)
[2020-02-21] MEDS: PREGABALIN 100 MG CAPSULE PO SCH (19:44)
[2020-02-21] MEDS: PREGABALIN 50 MG CAPSULE PO SCH (19:45)
[2020-02-21] MEDS: HYDROMORPHONE HCL INJ/PF 2 MG/ML AMPULE IV PRN (19:51)
--- NOTE | 2020-02-21 20:10 | PDOC PROGRESS REPORT ---
Subjective Progress Note for:: 02/21/20 Subjective:: Patient still in in COVID unit in isolation awaiting the result of SARS-CoV-2. She complain of pain Reason For Visit: ACUTE HYPOXERMIC RESPIRATORY FAILURE, PNEUMONIA Physical Exam Vital Signs: Temp Pulse Resp BP Pulse Ox 98.6 F 82 16 166/78 H 96 02/21/20 19:36 02/21/20 19:36 02/21/20 19:36 02/21/20 19:36 02/21/20 19:36 Intake & Output 02/20/20 02/21/20 02/22/20 06:59 06:59 06:59 Intake Total 395 2964 620 Output Total 100 900 402 Balance 295 2064 218 Weight 123.1 kg 123.3 kg General appearance: PRESENT: no acute distress Eye exam: PRESENT: PERRLA Respiratory exam: PRESENT: rhonchi Cardiovascular exam: PRESENT: +S1, +S2 GI/Abdominal exam: PRESENT: soft Neurological exam: PRESENT: alert Results Laboratory Results: 02/20/20 12:52 02/20/20 12:52 02/19/20 21:45 Clean Catch Midstream Urine Culture - Final Klebsiella Pneumoniae Proteus Mirabilis Impressions: Chest X-Ray 02/19/20 00:00 IMPRESSION: Scarring versus minimal airspace disease in the left lower lobe. No new finding. Assessment & Plan - Diagnosis (1) Acute hypoxemic respiratory failure Is this a current diagnosis for this admission?: Yes Plan: Continue oxygen therapy (2) Pneumonia Qualifiers: Pneumonia type: due to unspecified organism Laterality: unspecified laterality Lung location: unspecified part of lung Qualified Code(s): J18.9 - Pneumonia, unspecified organism Is this a current diagnosis for this admission?: Yes Plan: continue antibiotic (3) Type 2 diabetes mellitus Qualifiers: Diabetes mellitus half-way insulin use: with manager terminal use Diabetes mellitus complication status: with neurologic complications Diabetes mellitus complication detail: with polyneuropathy Qualified Code(s): E11.42 - Type 2 diabetes mellitus with diabetic polyneuropathy; Z79.4 - terminal operations supervisor (current) use of insulin; Z79.4 - [facility] (current) use of insulin; Z79.4 - [facility] (current) use of insulin; Z79.4 - [facility] (current) use of insulin Is this a current diagnosis for this admission?: Yes Plan: Continue treatment (4) Chronic kidney disease, stage 3 Is this a current diagnosis for this admission?: Yes (5) Obesity hypoventilation syndrome Is this a current diagnosis for this admission?: Yes (6) T2DM (type 2 diabetes mellitus) Qualifiers: Diabetes mellitus half-way insulin use: with half-way use Diabetes mellitus complication status: with neurologic complications Diabetes mellitus complication detail: with polyneuropathy Qualified Code(s): E11.42 - Type 2 diabetes mellitus with diabetic polyneuropathy; Z79.4 - [facility] (current) use of insulin Is this a current diagnosis for this admission?: Yes - Time Time Spent with patient: 25-34 minutes Level of Care: IMCU Medications reviewed and adjusted accordingly: Yes
[2020-02-21] MEDS: ATORVASTATIN CALCIUM 10 MG TABLET PO SCH (21:16)
[2020-02-22] MEDS: GABAPENTIN 300 MG CAPSULE PO SCH ×5 (00:18→23:46)
[2020-02-22] MEDS: RINGERS SOLUTION,LACTATED 1,000 ML IV PRN ×3 (01:33→21:47)
[2020-02-22] MEDS: HYDROMORPHONE HCL INJ/PF 2 MG/ML AMPULE IV PRN ×4 (02:12→20:40)
[2020-02-22] MEDS: HYDRALAZINE HCL 50 MG TABLET PO SCH ×3 (05:48→21:42)
[2020-02-22] MEDS: VALSARTAN 40 MG TABLET PO SCH ×2 (05:48→18:09)
[2020-02-22] MEDS: INSULIN GLARGINE,HUM.REC.ANLOG 1,000 UNIT/10 ML VIAL SUBCUT SCH ×2 (05:49→18:05)
[2020-02-22] MEDS: INSULIN LISPRO 100 UNIT/ML 3 ML VIAL SUBCUT SCH ×3 (07:42→18:04)
[2020-02-22] MEDS: CEFEPIME HCL 2 GM in DEXTROSE 5%-WATER 50 ML IV SCH ×2 (10:01→21:42)
[2020-02-22] MEDS: PREGABALIN 50 MG CAPSULE PO SCH (10:02)
[2020-02-22] MEDS: ALLOPURINOL 100 MG TABLET PO SCH (10:02)
[2020-02-22] MEDS: CALCITRIOL 0.25 MCG CAPSULE PO SCH (10:02)
[2020-02-22] MEDS: METOPROLOL SUCCINATE 50 MG TAB.SR.24H PO SCH (10:02)
[2020-02-22] MEDS: PREGABALIN 100 MG CAPSULE PO SCH (10:03)
[2020-02-22] MEDS: MAGNESIUM OXIDE 400 MG TABLET PO SCH (10:03)
[2020-02-22] MEDS: SODIUM BICARBONATE 650 MG TABLET PO SCH ×3 (10:04→18:09)
[2020-02-22] MEDS: ASPIRIN 81 MG TABLET, CHEWABLE PO SCH (10:04)
[2020-02-22] MEDS: SITAGLIPTIN PHOSPHATE 50 MG TABLET PO SCH (10:04)
[2020-02-22] MEDS: CLOTRIMAZOLE/BETAMETHASONE DIP CREAM 15 GM TOP SCH ×2 (10:04→18:08)
[2020-02-22] MEDS: CHOLESTYRAMINE 4 GM PACKET PO SCH ×2 (10:05→21:23)
[2020-02-22] MEDS: CLOBETASOL PROPIONATE 0.05% CREAM 15 GM TOP SCH ×2 (10:05→18:08)
[2020-02-22] MEDS: LEVOFLOXACIN 750 MG/D5W RTU 750 MG/150 ML RTUPB IV SCH (10:51)
[2020-02-22] MEDS: CETIRIZINE 5 MG TABLET PO SCH (18:09)
--- NOTE | 2020-02-22 19:17 | RADIOLOGY REPORT (SQ) ---
EXAM DESCRIPTION: CHEST SINGLE VIEW IMAGES COMPLETED DATE/TIME: 02/22/2020 7:06 pm REASON FOR STUDY: pneumonia COMPARISON: AP view of the chest from 02/19/2020. EXAM PARAMETERS: NUMBER OF VIEWS: One view. TECHNIQUE: An AP view of the chest was obtained. RADIATION DOSE: NA LIMITATIONS: None. FINDINGS: LUNGS AND PLEURA: Unchanged pleural and parenchymal opacities in the inferior aspect of th e left hemithorax that obscure the contour of the hemidiaphragm and blunt the costophrenic sulcus. MEDIASTINUM AND HILAR STRUCTURES: Stable mediastinal and hilar contours. HEART AND VASCULAR STRUCTURES: Stable enlarged cardiac silhouette. BONES: No acute findings. HARDWARE: The tip of the right IJ single-lumen port projects within the SVC. OTHER: No other finding. IMPRESSION: Unchanged radiographic appearance of the chest. TECHNICAL DOCUMENTATION: JOB ID: [id number] 2010 [employer]- All Rights Reserved Reading location - IP/workstation name: [email or web address]
--- NOTE | 2020-02-22 20:24 | PDOC PROGRESS REPORT ---
Subjective Progress Note for:: 02/22/20 Subjective:: Patient rule out for SARS-CoV-2, transfer out of the COVID floor to [facility], she complained of pain asking for increase of the frequency of Dilaudid, she is admitted for pneumonia.The chest x-ray is unchanged from prior chest x-ray Reason For Visit: ACUTE HYPOXERMIC RESPIRATORY FAILURE, PNEUMONIA Physical Exam Vital Signs: Temp Pulse Resp BP Pulse Ox 98.7 F 84 21 H 159/85 H 97 02/22/20 16:36 02/22/20 16:36 02/22/20 16:36 02/22/20 16:36 02/22/20 16:36 Intake & Output 02/21/20 02/22/20 02/23/20 06:59 06:59 06:59 Intake Total 2964 1820 1898 Output Total 900 1002 250 Balance 2064 818 1648 Weight 123.3 kg 123.3 kg General appearance: PRESENT: no acute distress Eye exam: PRESENT: PERRLA Respiratory exam: PRESENT: rhonchi Cardiovascular exam: PRESENT: +S1, +S2 GI/Abdominal exam: PRESENT: soft Neurological exam: PRESENT: alert, CN II-XII grossly intact Results Laboratory Results: 02/20/20 12:52 02/20/20 12:52 Impressions: Chest X-Ray 02/22/20 00:00 IMPRESSION: Unchanged radiographic appearance of the chest. Assessment & Plan - Diagnosis (1) Acute hypoxemic respiratory failure Is this a current diagnosis for this admission?: Yes Plan: Continue oxygen via nasal cannula (2) Pneumonia Qualifiers: Pneumonia type: due to unspecified organism Laterality: unspecified laterality Lung location: unspecified part of lung Qualified Code(s): J18.9 - Pneumonia, unspecified organism Is this a current diagnosis for this admission?: Yes Plan: Continue IV antibiotic (3) Type 2 diabetes mellitus Qualifiers: Diabetes mellitus assisted insulin use: with assisted use Diabetes mellitus complication status: with neurologic complications Diabetes mellitus complication detail: with polyneuropathy Qualified Code(s): E11.42 - Type 2 diabetes mellitus with diabetic polyneuropathy; Z79.4 - long term care phlebotomist (current) use of insulin; Z79.4 - alf (current) use of insulin; Z79.4 - alf (current) use of insulin; Z79.4 - long term care phlebotomist (current) use of insulin Is this a current diagnosis for this admission?: Yes Plan: continue treatment (4) Chronic kidney disease, stage 3 Is this a current diagnosis for this admission?: Yes (5) Obesity hypoventilation syndrome Is this a current diagnosis for this admission?: Yes (6) T2DM (type 2 diabetes mellitus) Qualifiers: Diabetes mellitus intermediate school teacher insulin use: with intermediate school teacher use Diabetes mellitus complication status: with neurologic complications Diabetes mellitus complication detail: with polyneuropathy Qualified Code(s): E11.42 - Type 2 diabetes mellitus with diabetic polyneuropathy; Z79.4 - alf (current) use of insulin Is this a current diagnosis for this admission?: Yes - Time Time Spent with patient: 25-34 minutes Level of Care: IMCU Medications reviewed and adjusted accordingly: Yes
[2020-02-22] MEDS: ATORVASTATIN CALCIUM 10 MG TABLET PO SCH (21:42)
[2020-02-22] MEDS: OXYCODONE HCL IR 5 MG TABLET PO PRN (23:45)
[2020-02-23] MEDS: HYDROMORPHONE HCL INJ/PF 2 MG/ML AMPULE IV PRN ×4 (04:16→21:04)
[2020-02-23] MEDS: VALSARTAN 40 MG TABLET PO SCH ×2 (05:43→17:04)
[2020-02-23] MEDS: GABAPENTIN 300 MG CAPSULE PO SCH ×4 (05:44→23:59)
[2020-02-23] MEDS: HYDRALAZINE HCL 50 MG TABLET PO SCH ×3 (05:44→21:16)
[2020-02-23] MEDS: INSULIN GLARGINE,HUM.REC.ANLOG 1,000 UNIT/10 ML VIAL SUBCUT SCH ×2 (05:57→17:00)
[2020-02-23] MEDS: INSULIN LISPRO 100 UNIT/ML 3 ML VIAL SUBCUT SCH ×3 (07:21→16:59)
[2020-02-23] MEDS: OXYCODONE HCL IR 5 MG TABLET PO PRN (08:17)
[2020-02-23] MEDS: SITAGLIPTIN PHOSPHATE 50 MG TABLET PO SCH (10:16)
[2020-02-23] MEDS: ASPIRIN 81 MG TABLET, CHEWABLE PO SCH (10:16)
[2020-02-23] MEDS: CALCITRIOL 0.25 MCG CAPSULE PO SCH (10:17)
[2020-02-23] MEDS: ALLOPURINOL 100 MG TABLET PO SCH (10:17)
[2020-02-23] MEDS: PREGABALIN 50 MG CAPSULE PO SCH (10:17)
[2020-02-23] MEDS: METOPROLOL SUCCINATE 50 MG TAB.SR.24H PO SCH (10:17)
[2020-02-23] MEDS: SODIUM BICARBONATE 650 MG TABLET PO SCH ×3 (10:17→17:05)
[2020-02-23] MEDS: PREGABALIN 100 MG CAPSULE PO SCH (10:17)
[2020-02-23] MEDS: MAGNESIUM OXIDE 400 MG TABLET PO SCH (10:17)
[2020-02-23] MEDS: LEVOFLOXACIN 750 MG/D5W RTU 750 MG/150 ML RTUPB IV SCH (10:18)
[2020-02-23] MEDS: CHOLESTYRAMINE 4 GM PACKET PO SCH ×2 (10:18→21:16)
[2020-02-23] MEDS: CLOBETASOL PROPIONATE 0.05% CREAM 15 GM TOP SCH ×2 (10:19→17:01)
[2020-02-23] MEDS: CLOTRIMAZOLE/BETAMETHASONE DIP CREAM 15 GM TOP SCH ×2 (10:19→17:01)
[2020-02-23] MEDS: CEFEPIME HCL 2 GM in DEXTROSE 5%-WATER 50 ML IV SCH ×2 (11:44→21:09)
[2020-02-23] MEDS: RINGERS SOLUTION,LACTATED 1,000 ML IV PRN ×2 (11:45→22:17)
[2020-02-23] MEDS: CETIRIZINE 5 MG TABLET PO SCH (17:05)
[2020-02-23] MEDS: ATORVASTATIN CALCIUM 10 MG TABLET PO SCH (21:16)
--- NOTE | 2020-02-23 21:47 | PDOC PROGRESS REPORT ---
Subjective Progress Note for:: 02/23/20 Subjective:: Patient seen by the bedside, she is showing some improvement in her symptoms, she is advised to stay the weekend to continue IV antibiotic, I am of the hopefully discharge on Wednesday Reason For Visit: ACUTE HYPOXERMIC RESPIRATORY FAILURE, PNEUMONIA Physical Exam Vital Signs: Temp Pulse Resp BP Pulse Ox 98.6 F 96 16 161/82 H 98 02/23/20 15:35 02/23/20 19:00 02/23/20 15:35 02/23/20 15:35 02/23/20 15:35 Intake & Output 02/22/20 02/23/20 02/24/20 06:59 06:59 06:59 Intake Total 1820 3035 1962 Output Total 1002 2700 1100 Balance 818 335 862 Weight 123.3 kg 123.9 kg General appearance: PRESENT: no acute distress Eye exam: PRESENT: PERRLA Respiratory exam: PRESENT: rhonchi Cardiovascular exam: PRESENT: +S1, +S2 GI/Abdominal exam: PRESENT: soft Neurological exam: PRESENT: alert, CN II-XII grossly intact Results Laboratory Results: 02/20/20 12:52 02/20/20 12:52 Impressions: Chest X-Ray 02/22/20 00:00 IMPRESSION: Unchanged radiographic appearance of the chest. Assessment & Plan - Diagnosis (1) Acute hypoxemic respiratory failure Is this a current diagnosis for this admission?: Yes Plan: Continue oxygen (2) Pneumonia Qualifiers: Pneumonia type: due to unspecified organism Laterality: unspecified laterality Lung location: unspecified part of lung Qualified Code(s): J18.9 - Pneumonia, unspecified organism Is this a current diagnosis for this admission?: Yes Plan: Continue IV antibiotic (3) Type 2 diabetes mellitus Qualifiers: Diabetes mellitus buttermaker continuous churn insulin use: with buttermaker continuous churn use Diabetes mellitus complication status: with neurologic complications Diabetes mellitus complication detail: with polyneuropathy Qualified Code(s): E11.42 - Type 2 diabetes mellitus with diabetic polyneuropathy; Z79.4 - termite treater helper (current) use of insulin; Z79.4 - termite treater helper (current) use of insulin; Z79.4 - senior care (current) use of insulin; Z79.4 - termite treater helper (current) use of insulin Is this a current diagnosis for this admission?: Yes (4) Morbid obesity due to excess calories Is this a current diagnosis for this admission?: Yes (5) High output ileostomy Is this a current diagnosis for this admission?: Yes (6) Chronic pain syndrome Is this a current diagnosis for this admission?: Yes - Time Time Spent with patient: 25-34 minutes Level of Care: IMCU Medications reviewed and adjusted accordingly: Yes
[2020-02-23 22:51] LABS: ABSOLUTE EOSINOPHILS # (AUTO) 0.6 10^3/uL (0.0-0.6); ABSOLUTE LYMPHOCYTES (AUTO) 1.2 10^3/uL (0.5-4.7); ABSOLUTE MONOCYTES (AUTO) 0.7 10^3/uL (0.1-1.4); ABSOLUTE NEUT (AUTO) 4.9 10^3/uL (1.7-8.2); BASOPHILS % (AUTO) 0.4 % (0-2); EOSINOPHILS % (AUTO) 8.6 % (0-6); HEMATOCRIT 32.7 % (36.0-47.0); HEMOGLOBIN 10.4 g/dL (12.0-15.5); MEAN CORPUSCULAR HEMOGLOBIN 28.1 pg (27.0-33.4); MEAN CORPUSCULAR HGB CONC 31.9 g/dL (32.0-36.0); MEAN CORPUSCULAR VOLUME 88 fl (80-97); MONOCYTES % (AUTO) 9.6 % (3-13); RED BLOOD COUNT 3.71 10^6/uL (3.72-5.28); RED CELL DISTRIBUTION WIDTH 17.3 % (11.5-14.0); SEGMENTED NEUTROPHILS % (AUTO) 65.4 % (42-78); TOTAL CELLS COUNTED % (AUTO) 100 %; WHITE BLOOD COUNT 7.5 10^3/uL (4.0-10.5)
[2020-02-23 23:04] LABS: ALKALINE PHOSPHATASE 55 U/L (38-126); ASPARTATE AMINO TRANSFERASE 26 U/L (14-36); BILIRUBIN,TOTAL 0.4 mg/dL (0.2-1.3); BLOOD UREA NITROGEN 20 mg/dL (7-20); GLUCOSE 120 mg/dL (75-110); POTASSIUM 4.1 mmol/L (3.6-5.0); TOTAL PROTEIN 6.1 g/dL (6.3-8.2)
[2020-02-23 23:07] LABS: PLATELET COUNT 84 10^3/uL (150-450)
[2020-02-23 23:14] LABS: ANION GAP 6 (5-19); CARBON DIOXIDE 32 mmol/L (22-30); CHLORIDE 98 mmol/L (98-107)
[2020-02-24] MEDS: HYDROMORPHONE HCL INJ/PF 2 MG/ML AMPULE IV PRN ×6 (01:17→23:10)
[2020-02-24] MEDS: HYDRALAZINE HCL 50 MG TABLET PO SCH ×3 (05:27→21:39)
[2020-02-24] MEDS: VALSARTAN 40 MG TABLET PO SCH ×2 (05:27→17:12)
[2020-02-24] MEDS: GABAPENTIN 300 MG CAPSULE PO SCH ×3 (05:59→17:02)
[2020-02-24 06:03] LABS: ABSOLUTE EOSINOPHILS # (AUTO) 0.6 10^3/uL (0.0-0.6); ABSOLUTE MONOCYTES (AUTO) 0.5 10^3/uL (0.1-1.4); ABSOLUTE NEUT (AUTO) 4.7 10^3/uL (1.7-8.2); BASOPHILS % (AUTO) 0.3 % (0-2); EOSINOPHILS % (AUTO) 8.6 % (0-6); HEMATOCRIT 32.4 % (36.0-47.0); HEMOGLOBIN 10.5 g/dL (12.0-15.5); LYMPHOCYTES % (AUTO) 14.3 % (13-45); MEAN CORPUSCULAR HEMOGLOBIN 28.3 pg (27.0-33.4); MEAN CORPUSCULAR HGB CONC 32.3 g/dL (32.0-36.0); MEAN CORPUSCULAR VOLUME 88 fl (80-97); MONOCYTES % (AUTO) 7.9 % (3-13); RED CELL DISTRIBUTION WIDTH 16.6 % (11.5-14.0); SEGMENTED NEUTROPHILS % (AUTO) 68.9 % (42-78); TOTAL CELLS COUNTED % (AUTO) 100 %; WHITE BLOOD COUNT 6.9 10^3/uL (4.0-10.5)
[2020-02-24 06:24] LABS: ALBUMIN 2.9 g/dL (3.5-5.0); ALKALINE PHOSPHATASE 62 U/L (38-126); ANION GAP 7 (5-19); ASPARTATE AMINO TRANSFERASE 29 U/L (14-36); BILIRUBIN,TOTAL 0.4 mg/dL (0.2-1.3); BLOOD UREA NITROGEN 19 mg/dL (7-20); CALCIUM 8.9 mg/dL (8.4-10.2); CARBON DIOXIDE 30 mmol/L (22-30); CHLORIDE 100 mmol/L (98-107); GLUCOSE 134 mg/dL (75-110); TOTAL PROTEIN 6.3 g/dL (6.3-8.2)
[2020-02-24 06:31] LABS: PLATELET COUNT 83 10^3/uL (150-450)
[2020-02-24] MEDS: INSULIN GLARGINE,HUM.REC.ANLOG 1,000 UNIT/10 ML VIAL SUBCUT SCH ×2 (06:50→17:01)
[2020-02-24] MEDS: INSULIN LISPRO 100 UNIT/ML 3 ML VIAL SUBCUT SCH ×3 (08:00→17:00)
[2020-02-24] MEDS: RINGERS SOLUTION,LACTATED 1,000 ML IV PRN ×2 (08:37→21:39)
[2020-02-24] MEDS: LEVOFLOXACIN 750 MG/D5W RTU 750 MG/150 ML RTUPB IV SCH (09:50)
[2020-02-24] MEDS: PREGABALIN 50 MG CAPSULE PO SCH (09:51)
[2020-02-24] MEDS: SODIUM BICARBONATE 650 MG TABLET PO SCH ×3 (09:51→17:13)
[2020-02-24] MEDS: CALCITRIOL 0.25 MCG CAPSULE PO SCH (09:51)
[2020-02-24] MEDS: METOPROLOL SUCCINATE 50 MG TAB.SR.24H PO SCH (09:51)
[2020-02-24] MEDS: SITAGLIPTIN PHOSPHATE 50 MG TABLET PO SCH (09:51)
[2020-02-24] MEDS: ASPIRIN 81 MG TABLET, CHEWABLE PO SCH (09:51)
[2020-02-24] MEDS: MAGNESIUM OXIDE 400 MG TABLET PO SCH (09:51)
[2020-02-24] MEDS: PREGABALIN 100 MG CAPSULE PO SCH (09:52)
[2020-02-24] MEDS: ALLOPURINOL 100 MG TABLET PO SCH (09:52)
[2020-02-24] MEDS: CLOTRIMAZOLE/BETAMETHASONE DIP CREAM 15 GM TOP SCH ×2 (09:52→17:01)
[2020-02-24] MEDS: CEFEPIME HCL 2 GM in DEXTROSE 5%-WATER 50 ML IV SCH ×2 (10:19→21:40)
[2020-02-24] MEDS: CLOBETASOL PROPIONATE 0.05% CREAM 15 GM TOP SCH ×2 (10:21→17:14)
[2020-02-24] MEDS: CHOLESTYRAMINE 4 GM PACKET PO SCH ×2 (10:24→21:40)
[2020-02-24] MEDS ORDERED: FLUCONAZOLE 100 MG TABLET PO ONE (11:00)
--- NOTE | 2020-02-24 11:04 | PDOC PROGRESS REPORT ---
Subjective Progress Note for:: 02/24/20 Subjective:: Patient is currently doing well Patient was admitted because of the pneumonia with ongoing problems with the dehydration's to the high output ostomy Patients denied any chest pain no short of breath Reason For Visit: ACUTE HYPOXERMIC RESPIRATORY FAILURE, PNEUMONIA Physical Exam Vital Signs: Temp Pulse Resp BP Pulse Ox 97.4 F 90 18 133/63 H 96 02/24/20 07:47 02/24/20 07:47 02/24/20 07:47 02/24/20 07:47 02/24/20 07:47 Intake & Output 02/23/20 02/24/20 02/25/20 06:59 06:59 06:59 Intake Total 3035 3484 1000 Output Total 2700 2500 Balance 876 771 0759 Weight 123.9 kg 120.9 kg General appearance: PRESENT: no acute distress, well-developed, well-nourished Head exam: PRESENT: atraumatic, normocephalic Eye exam: PRESENT: conjunctiva pink, EOMI, PERRLA. ABSENT: scleral icterus Ear exam: PRESENT: normal external ear exam Mouth exam: PRESENT: moist, tongue midline Neck exam: PRESENT: full ROM. ABSENT: carotid bruit, JVD, lymphadenopathy, thyromegaly Respiratory exam: PRESENT: clear to auscultation stephen Cardiovascular exam: PRESENT: RRR. ABSENT: diastolic murmur, rubs, systolic murmur Vascular exam: PRESENT: normal capillary refill GI/Abdominal exam: PRESENT: normal bowel sounds, soft. ABSENT: distended, guarding, mass, organolmegaly, rebound, tenderness Rectal exam: PRESENT: deferred Neurological exam: PRESENT: alert, awake, oriented to person, oriented to place, oriented to time, oriented to situation, CN II-XII grossly intact. ABSENT: motor sensory deficit Psychiatric exam: PRESENT: appropriate affect, normal mood. ABSENT: homicidal ideation, suicidal ideation Skin exam: PRESENT: dry, intact, warm. ABSENT: cyanosis, rash Results Laboratory Results: 02/24/20 05:25 02/24/20 05:25 02/23/20 02/23/20 02/24/20 22:20 22:20 05:25 WBC 7.5 6.9 RBC 3.71 L 3.70 L Hgb 10.4 L 10.5 L Hct 32.7 L 32.4 L MCV 88 88 MCH 28.1 28.3 MCHC 31.9 L 32.3 RDW 17.3 H 16.6 H Plt Count 84 L 83 L Seg Neutrophils % 65.4 68.9 Sodium 135.5 L Potassium 4.1 Chloride 98 Carbon Dioxide 32 H Anion Gap 6 BUN 20 Creatinine 1.72 H Est GFR ( Amer) 36 L Glucose 120 H Calcium 9.0 Total Bilirubin 0.4 AST 26 Alkaline Phosphatase 55 Total Protein 6.1 L Albumin 3.0 L 02/24/20 05:25 WBC RBC Hgb Hct MCV MCH MCHC RDW Plt Count Seg Neutrophils % Sodium 136.9 L Potassium 4.0 Chloride 100 Carbon Dioxide 30 Anion Gap 7 BUN 19 Creatinine 1.80 H Est GFR ( Amer) 34 L Glucose 134 H Calcium 8.9 Total Bilirubin 0.4 AST 29 Alkaline Phosphatase 62 Total Protein 6.3 Albumin 2.9 L Impressions: Chest X-Ray 02/22/20 00:00 IMPRESSION: Unchanged radiographic appearance of the chest. Assessment & Plan - Diagnosis (1) Acute hypoxemic respiratory failure Is this a current diagnosis for this admission?: Yes Plan: Continue oxygen (2) Chronic pain syndrome Is this a current diagnosis for this admission?: Yes (3) Acute kidney injury Is this a current diagnosis for this admission?: Yes (4) Anemia Qualifiers: Anemia type: unspecified type Qualified Code(s): D64.9 - Anemia, unspecified Is this a current diagnosis for this admission?: Yes (5) Coronary artery disease Qualifiers: Coronary Disease-Associated Artery/Lesion type: unspecified vessel or lesion type Is this a current diagnosis for this admission?: Yes (6) Diabetes mellitus Qualifiers: Diabetes mellitus type: type 2 Chronic kidney disease stage: stage 3 (moderate) Is this a current diagnosis for this admission?: Yes (7) Essential (primary) hypertension Is this a current diagnosis for this admission?: Yes (8) High output ileostomy Is this a current diagnosis for this admission?: Yes (9) Pneumonia Qualifiers: Pneumonia type: due to unspecified organism Laterality: unspecified laterality Lung location: unspecified part of lung Qualified Code(s): J18.9 - Pneumonia, unspecified organism Is this a current diagnosis for this admission?: Yes - Time Time Spent with patient: 25-34 minutes Level of Care: IMCU Medications reviewed and adjusted accordingly: Yes Anticipated discharge: Other Within: Other - Plan Summary Plan Summary: Continues to current medications
[2020-02-24] MEDS: CETIRIZINE 5 MG TABLET PO SCH (17:13)
[2020-02-24] MEDS: ATORVASTATIN CALCIUM 10 MG TABLET PO SCH (21:39)
[2020-02-25] MEDS: GABAPENTIN 300 MG CAPSULE PO SCH ×4 (00:13→17:50)
[2020-02-25] MEDS: HYDROMORPHONE HCL INJ/PF 2 MG/ML AMPULE IV PRN ×6 (02:58→23:48)
[2020-02-25] MEDS: VALSARTAN 40 MG TABLET PO SCH ×2 (06:03→18:02)
[2020-02-25] MEDS: HYDRALAZINE HCL 50 MG TABLET PO SCH ×3 (06:03→22:58)
[2020-02-25] MEDS: INSULIN GLARGINE,HUM.REC.ANLOG 1,000 UNIT/10 ML VIAL SUBCUT SCH ×2 (06:15→17:51)
[2020-02-25] MEDS: RINGERS SOLUTION,LACTATED 1,000 ML IV PRN ×2 (07:40→19:44)
[2020-02-25] MEDS: INSULIN LISPRO 100 UNIT/ML 3 ML VIAL SUBCUT SCH ×3 (07:44→17:49)
--- NOTE | 2020-02-25 10:28 | PDOC PROGRESS REPORT ---
Subjective Progress Note for:: 02/25/20 Subjective:: Patient is currently doing well Patient was admitted because of the pneumonia with ongoing problems with the dehydration's to the high output ostomy Patients denied any chest pain no short of breath Reason For Visit: ACUTE HYPOXERMIC RESPIRATORY FAILURE, PNEUMONIA Physical Exam Vital Signs: Temp Pulse Resp BP Pulse Ox 98.1 F 84 16 164/81 H 92 02/25/20 07:30 02/25/20 07:30 02/25/20 07:30 02/25/20 07:30 02/25/20 07:30 Intake & Output 02/24/20 02/25/20 02/26/20 06:59 06:59 06:59 Intake Total 3484 3068 Output Total 2500 3600 Balance 984 -532 Weight 120.9 kg 123.2 kg General appearance: PRESENT: no acute distress, well-developed, well-nourished Head exam: PRESENT: atraumatic, normocephalic Eye exam: PRESENT: conjunctiva pink, EOMI, PERRLA. ABSENT: scleral icterus Ear exam: PRESENT: normal external ear exam Mouth exam: PRESENT: moist, tongue midline Neck exam: PRESENT: full ROM. ABSENT: carotid bruit, JVD, lymphadenopathy, thyromegaly Respiratory exam: PRESENT: clear to auscultation stephen Cardiovascular exam: PRESENT: RRR. ABSENT: diastolic murmur, rubs, systolic murmur Pulses: PRESENT: normal dorsalis pedis pul, +2 pedal pulses bilateral Vascular exam: PRESENT: normal capillary refill GI/Abdominal exam: PRESENT: normal bowel sounds, soft. ABSENT: distended, guarding, mass, organolmegaly, rebound, tenderness Rectal exam: PRESENT: deferred Neurological exam: PRESENT: alert, awake, oriented to person, oriented to place, oriented to time, oriented to situation, CN II-XII grossly intact. ABSENT: motor sensory deficit Psychiatric exam: PRESENT: appropriate affect, normal mood. ABSENT: homicidal ideation, suicidal ideation Skin exam: PRESENT: dry, intact, warm. ABSENT: cyanosis, rash Results Laboratory Results: 02/24/20 05:25 02/24/20 05:25 02/19/20 14:30 Blood Blood Culture - Final NO GROWTH IN 5 DAYS 02/19/20 13:48 Blood Blood Culture - Final NO GROWTH IN 5 DAYS Impressions: Chest X-Ray 02/22/20 00:00 IMPRESSION: Unchanged radiographic appearance of the chest. Assessment & Plan - Diagnosis (1) Acute hypoxemic respiratory failure Is this a current diagnosis for this admission?: Yes (2) Chronic pain syndrome Is this a current diagnosis for this admission?: Yes (3) Acute kidney injury Is this a current diagnosis for this admission?: Yes (4) Anemia Qualifiers: Anemia type: unspecified type Qualified Code(s): D64.9 - Anemia, unspecified Is this a current diagnosis for this admission?: Yes (5) Coronary artery disease Qualifiers: Coronary Disease-Associated Artery/Lesion type: unspecified vessel or lesion type Is this a current diagnosis for this admission?: Yes (6) Diabetes mellitus Qualifiers: Diabetes mellitus type: type 2 Chronic kidney disease stage: stage 3 (moderate) Is this a current diagnosis for this admission?: Yes (7) Essential (primary) hypertension Is this a current diagnosis for this admission?: Yes (8) High output ileostomy Is this a current diagnosis for this admission?: Yes (9) Pneumonia Qualifiers: Pneumonia type: due to unspecified organism Laterality: unspecified laterality Lung location: unspecified part of lung Qualified Code(s): J18.9 - Pneumonia, unspecified organism Is this a current diagnosis for this admission?: Yes - Time Time Spent with patient: 15-24 minutes Level of Care: IMCU Medications reviewed and adjusted accordingly: Yes Anticipated discharge: Other Within: Other - Plan Summary Plan Summary: Continues the current medications
[2020-02-25] MEDS: SITAGLIPTIN PHOSPHATE 50 MG TABLET PO SCH (10:43)
[2020-02-25] MEDS: SODIUM BICARBONATE 650 MG TABLET PO SCH ×3 (10:43→18:02)
[2020-02-25] MEDS: CALCITRIOL 0.25 MCG CAPSULE PO SCH (10:44)
[2020-02-25] MEDS: MAGNESIUM OXIDE 400 MG TABLET PO SCH (10:44)
[2020-02-25] MEDS: METOPROLOL SUCCINATE 50 MG TAB.SR.24H PO SCH (10:44)
[2020-02-25] MEDS: PREGABALIN 100 MG CAPSULE PO SCH (10:45)
[2020-02-25] MEDS: PREGABALIN 50 MG CAPSULE PO SCH (10:45)
[2020-02-25] MEDS: ASPIRIN 81 MG TABLET, CHEWABLE PO SCH (10:45)
[2020-02-25] MEDS: ALLOPURINOL 100 MG TABLET PO SCH (10:45)
[2020-02-25] MEDS: CEFEPIME HCL 2 GM in DEXTROSE 5%-WATER 50 ML IV SCH ×2 (10:47→22:57)
[2020-02-25] MEDS: CLOTRIMAZOLE/BETAMETHASONE DIP CREAM 15 GM TOP SCH ×2 (10:51→17:49)
[2020-02-25] MEDS: CLOBETASOL PROPIONATE 0.05% CREAM 15 GM TOP SCH ×2 (10:51→17:49)
[2020-02-25] MEDS: CHOLESTYRAMINE 4 GM PACKET PO SCH ×2 (10:51→22:58)
[2020-02-25] MEDS: LEVOFLOXACIN 750 MG/D5W RTU 750 MG/150 ML RTUPB IV SCH (11:29)
[2020-02-25] MEDS: CETIRIZINE 5 MG TABLET PO SCH (18:02)
[2020-02-25] MEDS: ATORVASTATIN CALCIUM 10 MG TABLET PO SCH (22:58)
[2020-02-26] MEDS: GABAPENTIN 300 MG CAPSULE PO SCH ×4 (00:51→17:17)
[2020-02-26] MEDS: HYDROMORPHONE HCL INJ/PF 2 MG/ML AMPULE IV PRN ×5 (04:17→20:43)
[2020-02-26 04:58] LABS: ABSOLUTE EOSINOPHILS # (AUTO) 0.5 10^3/uL (0.0-0.6); ABSOLUTE LYMPHOCYTES (AUTO) 1.3 10^3/uL (0.5-4.7); ABSOLUTE MONOCYTES (AUTO) 0.8 10^3/uL (0.1-1.4); ABSOLUTE NEUT (AUTO) 5.1 10^3/uL (1.7-8.2); BASOPHILS % (AUTO) 0.5 % (0-2); EOSINOPHILS % (AUTO) 6.2 % (0-6); HEMATOCRIT 32.4 % (36.0-47.0); HEMOGLOBIN 10.5 g/dL (12.0-15.5); LYMPHOCYTES % (AUTO) 16.8 % (13-45); MEAN CORPUSCULAR HEMOGLOBIN 28.2 pg (27.0-33.4); MEAN CORPUSCULAR HGB CONC 32.4 g/dL (32.0-36.0); MEAN CORPUSCULAR VOLUME 87 fl (80-97); MONOCYTES % (AUTO) 10.7 % (3-13); RED BLOOD COUNT 3.71 10^6/uL (3.72-5.28); RED CELL DISTRIBUTION WIDTH 17.1 % (11.5-14.0); SEGMENTED NEUTROPHILS % (AUTO) 65.8 % (42-78); TOTAL CELLS COUNTED % (AUTO) 100 %; WHITE BLOOD COUNT 7.7 10^3/uL (4.0-10.5)
[2020-02-26 05:15] LABS: BLOOD UREA NITROGEN 16 mg/dL (7-20); CALCIUM 9.9 mg/dL (8.4-10.2); GLUCOSE 76 mg/dL (75-110); POTASSIUM 4.5 mmol/L (3.6-5.0)
[2020-02-26 05:20] LABS: CARBON DIOXIDE 31 mmol/L (22-30); CHLORIDE 103 mmol/L (98-107)
[2020-02-26 05:26] LABS: ANION GAP 4 (5-19)
[2020-02-26 05:30] LABS: PLATELET COUNT 88 10^3/uL (150-450)
[2020-02-26] MEDS: INSULIN GLARGINE,HUM.REC.ANLOG 1,000 UNIT/10 ML VIAL SUBCUT SCH ×2 (06:45→17:16)
[2020-02-26] MEDS: HYDRALAZINE HCL 50 MG TABLET PO SCH ×3 (06:46→23:24)
[2020-02-26] MEDS: VALSARTAN 40 MG TABLET PO SCH ×2 (06:46→17:36)
[2020-02-26] MEDS: RINGERS SOLUTION,LACTATED 1,000 ML IV PRN ×2 (06:48→20:52)
[2020-02-26] MEDS: INSULIN LISPRO 100 UNIT/ML 3 ML VIAL SUBCUT SCH ×3 (07:59→16:43)
[2020-02-26] MEDS: MAGNESIUM OXIDE 400 MG TABLET PO SCH (10:00)
[2020-02-26] MEDS: SITAGLIPTIN PHOSPHATE 50 MG TABLET PO SCH (10:00)
[2020-02-26] MEDS: SODIUM BICARBONATE 650 MG TABLET PO SCH ×3 (10:00→17:36)
[2020-02-26] MEDS: CEFEPIME HCL 2 GM in DEXTROSE 5%-WATER 50 ML IV SCH (10:00)
[2020-02-26] MEDS: PREGABALIN 50 MG CAPSULE PO SCH (10:03)
[2020-02-26] MEDS: PREGABALIN 100 MG CAPSULE PO SCH (10:03)
[2020-02-26] MEDS: METOPROLOL SUCCINATE 50 MG TAB.SR.24H PO SCH (10:03)
[2020-02-26] MEDS: CALCITRIOL 0.25 MCG CAPSULE PO SCH (10:03)
[2020-02-26] MEDS: ASPIRIN 81 MG TABLET, CHEWABLE PO SCH (10:03)
[2020-02-26] MEDS: ALLOPURINOL 100 MG TABLET PO SCH (10:03)
[2020-02-26] MEDS: CLOTRIMAZOLE/BETAMETHASONE DIP CREAM 15 GM TOP SCH ×2 (10:05→17:17)
[2020-02-26] MEDS: CHOLESTYRAMINE 4 GM PACKET PO SCH ×2 (10:05→23:25)
[2020-02-26] MEDS: CLOBETASOL PROPIONATE 0.05% CREAM 15 GM TOP SCH ×2 (10:05→17:17)
[2020-02-26] MEDS: LEVOFLOXACIN 750 MG/D5W RTU 750 MG/150 ML RTUPB IV SCH (10:42)
[2020-02-26] MEDS: CETIRIZINE 5 MG TABLET PO SCH (17:36)
--- NOTE | 2020-02-26 19:42 | RADIOLOGY REPORT (SQ) ---
EXAM DESCRIPTION: CHEST SINGLE VIEW IMAGES COMPLETED DATE/TIME: 02/26/2020 7:31 pm REASON FOR STUDY: pneumonia COMPARISON: 02/22/2020 EXAM PARAMETERS: NUMBER OF VIEWS: One view. TECHNIQUE: Single frontal radiographic view of the chest acquired. RADIATION DOSE: NA LIMITATIONS: None. FINDINGS: LUNGS AND PLEURA: Improved appearance to the left base. Cannot exclude mild pulmonary mary ma. MEDIASTINUM AND HILAR STRUCTURES: No masses. Contour normal. HEART AND VASCULAR STRUCTURES: Heart size is borderline. BONES: No acute findings. HARDWARE: Injection port on the right. OTHER: No other significant finding. IMPRESSION: Borderline heart size. Cannot exclude mild pulmonary edema. There is improvement in th e appearance of the left base. TECHNICAL DOCUMENTATION: JOB ID: [id number] 2010 [employer]- All Rights Reserved Reading location - IP/workstation name: [email or web address]
--- NOTE | 2020-02-26 21:59 | PDOC PROGRESS REPORT ---
Subjective Progress Note for:: 02/26/20 Subjective:: Patient seen by the bedside, she feels better, on auscultation of the chest there is mild wheeze, chest x-ray was obtained, there is suggestion of pulmonary edema, albeit , small Reason For Visit: ACUTE HYPOXERMIC RESPIRATORY FAILURE, PNEUMONIA Physical Exam Vital Signs: Temp Pulse Resp BP Pulse Ox 98.3 F 77 16 155/89 H 93 02/26/20 15:24 02/26/20 15:24 02/26/20 15:24 02/26/20 15:24 02/26/20 15:24 Intake & Output 02/25/20 02/26/20 02/27/20 06:59 06:59 06:59 Intake Total 3068 4050 1659 Output Total 3600 3300 300 Balance -586 545 4135 Weight 123.2 kg 122.5 kg General appearance: PRESENT: no acute distress Eye exam: PRESENT: PERRLA Respiratory exam: PRESENT: wheezes Cardiovascular exam: PRESENT: +S1, +S2 GI/Abdominal exam: PRESENT: soft Neurological exam: PRESENT: alert, CN II-XII grossly intact Results Laboratory Results: 02/26/20 04:25 02/26/20 04:25 02/26/20 02/26/20 04:25 04:25 WBC 7.7 RBC 3.71 L Hgb 10.5 L Hct 32.4 L MCV 87 MCH 28.2 MCHC 32.4 RDW 17.1 H Plt Count 88 L Seg Neutrophils % 65.8 Sodium 138.0 Potassium 4.5 Chloride 103 Carbon Dioxide 31 H Anion Gap 4 L BUN 16 Creatinine 1.84 H Est GFR ( Amer) 34 L Glucose 76 Calcium 9.9 Impressions: Chest X-Ray 02/26/20 00:00 IMPRESSION: Borderline heart size. Cannot exclude mild pulmonary edema. There is improvement in the appearance of the left base. Assessment & Plan - Diagnosis (1) Acute hypoxemic respiratory failure Is this a current diagnosis for this admission?: Yes Plan: Improved (2) Pneumonia Qualifiers: Pneumonia type: due to unspecified organism Laterality: unspecified laterality Lung location: unspecified part of lung Qualified Code(s): J18.9 - Pneumonia, unspecified organism Is this a current diagnosis for this admission?: Yes (3) Type 2 diabetes mellitus Qualifiers: Diabetes mellitus skilled nursing insulin use: with supervisor photocomposition use Diabetes mellitus complication status: with neurologic complications Diabetes mellitus complication detail: with polyneuropathy Qualified Code(s): E11.42 - Type 2 diabetes mellitus with diabetic polyneuropathy; Z79.4 - prison (current) use of insulin; Z79.4 - sap data architect (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) use of insulin; Z79.4 - sap data architect (current) use of insulin; Z79.4 - sap data architect (current) use of insulin Is this a current diagnosis for this admission?: Yes (4) Morbid obesity due to excess calories Is this a current diagnosis for this admission?: Yes (5) High output ileostomy Is this a current diagnosis for this admission?: Yes (6) Chronic pain syndrome Is this a current diagnosis for this admission?: Yes - Time Time Spent with patient: 35 or more minutes Level of Care: IMCU Medications reviewed and adjusted accordingly: Yes - Plan Summary Plan Summary: Give furosemide 80 mg IV x1 dose, continue other treatment for pneumonia
[2020-02-26] MEDS: ATORVASTATIN CALCIUM 10 MG TABLET PO SCH (23:24)
[2020-02-27] MEDS: GABAPENTIN 300 MG CAPSULE PO SCH ×4 (00:38→17:01)
[2020-02-27] MEDS: HYDROMORPHONE HCL INJ/PF 2 MG/ML AMPULE IV PRN ×4 (01:21→14:38)
[2020-02-27] MEDS ORDERED: FUROSEMIDE INJ/PF 100 MG/10 ML SDV IV ONE (01:30)
[2020-02-27] MEDS: HYDRALAZINE HCL 50 MG TABLET PO SCH ×2 (05:17→13:42)
[2020-02-27] MEDS: VALSARTAN 40 MG TABLET PO SCH ×2 (05:17→17:02)
[2020-02-27] MEDS: INSULIN GLARGINE,HUM.REC.ANLOG 1,000 UNIT/10 ML VIAL SUBCUT SCH ×2 (07:05→17:01)
[2020-02-27 07:25] LABS: ANION GAP 8 (5-19); BLOOD UREA NITROGEN 16 mg/dL (7-20); CALCIUM 10.6 mg/dL (8.4-10.2); CARBON DIOXIDE 31 mmol/L (22-30); CHLORIDE 99 mmol/L (98-107); GLUCOSE 85 mg/dL (75-110); POTASSIUM 4.1 mmol/L (3.6-5.0)
[2020-02-27] MEDS: INSULIN LISPRO 100 UNIT/ML 3 ML VIAL SUBCUT SCH ×3 (08:00→16:20)
[2020-02-27] MEDS: RINGERS SOLUTION,LACTATED 1,000 ML IV PRN (08:19)
[2020-02-27] MEDS: LEVOFLOXACIN 750 MG/D5W RTU 750 MG/150 ML RTUPB IV SCH (09:57)
[2020-02-27] MEDS: PREGABALIN 50 MG CAPSULE PO SCH (09:58)
[2020-02-27] MEDS: METOPROLOL SUCCINATE 50 MG TAB.SR.24H PO SCH (09:58)
[2020-02-27] MEDS: SODIUM BICARBONATE 650 MG TABLET PO SCH ×3 (09:58→17:02)
[2020-02-27] MEDS: ASPIRIN 81 MG TABLET, CHEWABLE PO SCH (09:58)
[2020-02-27] MEDS: SITAGLIPTIN PHOSPHATE 50 MG TABLET PO SCH (09:58)
[2020-02-27] MEDS: CALCITRIOL 0.25 MCG CAPSULE PO SCH (09:58)
[2020-02-27] MEDS: CLOTRIMAZOLE/BETAMETHASONE DIP CREAM 15 GM TOP SCH ×2 (09:59→17:01)
[2020-02-27] MEDS: PREGABALIN 100 MG CAPSULE PO SCH (09:59)
[2020-02-27] MEDS: CLOBETASOL PROPIONATE 0.05% CREAM 15 GM TOP SCH ×2 (09:59→17:01)
[2020-02-27] MEDS: ALLOPURINOL 100 MG TABLET PO SCH (09:59)
[2020-02-27] MEDS: MAGNESIUM OXIDE 400 MG TABLET PO SCH (09:59)
[2020-02-27] MEDS: CHOLESTYRAMINE 4 GM PACKET PO SCH (10:00)
[2020-02-27 15:06] VITALS: BP 158/98
[2020-02-27] MEDS: CETIRIZINE 5 MG TABLET PO SCH (17:02)
--- NOTE | 2020-02-27 19:26 | PDOC DISCHARGE SUMMARY ---
Impression - Admit/DC Date/PCP Admission Date/Primary Care Provider: 02/19/20 12:27 LISA MATA MD Discharge Date: 02/27/20 - Discharge Diagnosis (1) Acute hypoxemic respiratory failure Is this a current diagnosis for this admission?: Yes (2) Pneumonia Is this a current diagnosis for this admission?: Yes (3) Type 2 diabetes mellitus Is this a current diagnosis for this admission?: Yes (4) Morbid obesity due to excess calories Is this a current diagnosis for this admission?: Yes (5) High output ileostomy Is this a current diagnosis for this admission?: Yes (6) Chronic pain syndrome Is this a current diagnosis for this admission?: Yes (7) Chronic kidney disease, stage 3 Is this a current diagnosis for this admission?: Yes - Additional Information Discharge Activity: Activity As Tolerated, Balance Activity w/Rest Referrals: LISA MATA MD [Primary Care Provider] - 03/04/20 9:30 am Home Medications: Albuterol Sulfate [Albuterol Sulfate Hfa] 2 puff IH Q4HP PRN 06/19/19 Allopurinol [Zyloprim 100 mg Tablet] 100 mg PO DAILY 06/19/19 Calcitriol [Rocaltrol 0.5 mcg Capsule] 0.5 mcg PO DAILY 06/19/19 Clobetasol Propionate [Temovate 0.05% Cream 15 gm] 1 applic TOP BID 06/19/19 Clotrimazole/Betamethasone Dip [Lotrisone Cream 15 gm] 1 applic TOP BID 06/19/19 Dapagliflozin Propanediol [Farxiga] 5 mg PO DAILY 06/19/19 Gabapentin [Neurontin] 600 mg PO Q6 06/19/19 Loperamide HCl [Imodium 2 mg Capsule] 2 mg PO Q3HP PRN 06/19/19 Metoprolol Succinate [Toprol Xl] 200 mg PO DAILY 06/19/19 Oxycodone HCl [Oxycodone HCl 10 MG Tablet] 10 mg PO Q8HP PRN 06/19/19 Sitagliptin Phosphate [Januvia 50 mg Tablet] 50 mg PO DAILY 06/19/19 Aspirin [Aspirin 81 mg Chewable Tablet] 81 mg PO DAILY 02/19/20 Cholestyramine [Questran 4 gm Packet] 4 gm PO Q12 02/19/20 Diphenoxylate HCl/Atropine [Lomotil 2.5-0.025 mg Tablet] 1 each PO Q6HP PRN 02/19/20 Ergocalciferol (Vitamin D2) [Drisdol 50,000 unit (1.25MG) Capsule] 50,000 unit PO .WEEKLY 02/19/20 Exenatide Microspheres [Bydureon Pen] 2 mg SQ .WEEKLY 02/19/20 Hydralazine HCl [Apresoline 50 mg Tablet] 50 mg PO TID 02/19/20 Insulin Aspart [Novolog Flexpen] 12 unit SQ TID 02/19/20 Insulin Glargine,Hum.rec.anlog [Lantus Insulin 100 Unit/mL Insulin Pen] 60 unit SUBCUT Q12 02/19/20 Levocetirizine Dihydrochloride [Xyzal] 5 mg PO QPM 02/19/20 Magnesium Oxide [Mag-Ox 400 mg Tablet] 400 mg PO DAILY 02/19/20 Oxycodone Myristate [Xtampza ER] 18 mg PO Q12 02/19/20 Pravastatin Sodium 40 mg PO DAILY 02/19/20 Pregabalin [Lyrica 100 mg Capsule] 100 mg PO DAILY 02/19/20 Pregabalin [Lyrica 50 mg Capsule] 50 mg PO DAILY 02/19/20 Sodium Bicarbonate [Sodium Bicarbonate 650 mg Tablet] 650 mg PO TID 02/19/20 Valsartan [Diovan 40 mg Tablet] 40 mg PO BID 02/19/20 History of Present Illiness History of Present Illness: RANDEE VELÁSQUEZ is a 64 year old female, She came to the office today for follow-up appointment, she stated that she does not feel well, she was found to have increased heart rate, the oxygen saturation was 72%, she was coughing constantly in the office because of this finding it was felt that she needed to be admitted to the hospital for evaluation. ABG on FiO2 6 L PO2 130.8, PCO2 59.3, bicarbonate 33.8, pH 7.37. Chest x-ray suggests pneumonic process,She has multiple comorbid conditions including high output ileostomy bag,Diabetes mellitus complicated with nephropathy, neuropathy. Hospital Course Hospital Course: Patient with multiple comorbid conditions, she was admitted for the management of community-acquired pneumonia, she was treated successfully with IV antibiotic with improvement in laboratory, clinical and radiologic findings.She had hypoxemia on admission, she required oxygen via nasal cannula, with improvement in the oxygen saturation Physical Exam Vital Signs: Temp Pulse Resp BP Pulse Ox 98.1 F 82 16 158/98 H 98 02/27/20 16:30 02/27/20 16:30 02/27/20 16:30 02/27/20 16:30 02/27/20 16:30 Intake & Output 02/26/20 02/27/20 02/28/20 06:59 06:59 06:59 Intake Total 4050 2309 2462 Output Total 3300 6000 Balance 750 -3691 2462 Weight 122.5 kg 120.1 kg General appearance: PRESENT: no acute distress Eye exam: PRESENT: PERRLA Respiratory exam: PRESENT: clear to auscultation stephen Cardiovascular exam: PRESENT: +S1, +S2 GI/Abdominal exam: PRESENT: soft Neurological exam: PRESENT: alert, CN II-XII grossly intact Results Laboratory Results: WBC 7.7 10^3/uL (4.0-10.5) 02/26/20 04:25 RBC 3.71 10^6/uL (3.72-5.28) L 02/26/20 04:25 Hgb 10.5 g/dL (12.0-15.5) L 02/26/20 04:25 Hct 32.4 % (36.0-47.0) L 02/26/20 04:25 MCV 87 fl (80-97) 02/26/20 04:25 MCH 28.2 pg (27.0-33.4) 02/26/20 04:25 MCHC 32.4 g/dL (32.0-36.0) 02/26/20 04:25 RDW 17.1 % (11.5-14.0) H 02/26/20 04:25 Plt Count 88 10^3/uL (150-450) L 02/26/20 04:25 Lymph % (Auto) 16.8 % (13-45) 02/26/20 04:25 [place] % (Auto) 10.7 % (3-13) 02/26/20 04:25 Eos % (Auto) 6.2 % (0-6) H 02/26/20 04:25 Baso % (Auto) 0.5 % (0-2) 02/26/20 04:25 Absolute Neuts (auto) 5.1 10^3/uL (1.7-8.2) 02/26/20 04:25 Absolute Lymphs (auto) 1.3 10^3/uL (0.5-4.7) 02/26/20 04:25 Absolute Monos (auto) 0.8 10^3/uL (0.1-1.4) 02/26/20 04:25 Absolute Eos (auto) 0.5 10^3/uL (0.0-0.6) 02/26/20 04:25 Absolute Basos (auto) 0.0 10^3/uL (0.0-0.2) 02/26/20 04:25 Seg Neutrophils % 65.8 % (42-78) 02/26/20 04:25 Carbonic Acid 1.78 mmol/L (1.05-1.35) H 02/19/20 14:13 HCO3/H2CO3 Ratio 18:1 02/19/20 14:13 ABG pH 7.37 (7.35-7.45) 02/19/20 14:13 ABG pCO2 59.3 mmHg (35-45) H 02/19/20 14:13 ABG pO2 130.8 mmHg (80-100) H 02/19/20 14:13 ABG HCO3 33.8 mmol/L (20-24) H 02/19/20 14:13 ABG Total CO2 35.6 mmol/L (21-25) H 02/19/20 14:13 ABG O2 Saturation 98.5 % (94-98) H 02/19/20 14:13 ABG Base Excess 7.0 mmol/L 02/19/20 14:13 FiO2 6L 02/19/20 14:13 Sodium 137.5 mmol/L (137-145) 02/27/20 06:45 Potassium 4.1 mmol/L (3.6-5.0) 02/27/20 06:45 Chloride 99 mmol/L (98-107) 02/27/20 06:45 Carbon Dioxide 31 mmol/L (22-30) H 02/27/20 06:45 Anion Gap 8 (5-19) 02/27/20 06:45 BUN 16 mg/dL (7-20) 02/27/20 06:45 Creatinine 1.87 mg/dL (0.52-1.25) H 02/27/20 06:45 Est GFR ( Amer) 33 (>60) L 02/27/20 06:45 Est GFR (MDRD) Non-Af 27 (>60) L 02/27/20 06:45 Glucose 85 mg/dL (75-110) 02/27/20 06:45 POC Glucose 126 mg/dL (70-110) H 02/27/20 16:13 Hemoglobin A1c % 7.6 % (4.7-6.0) H 02/19/20 14:30 Calcium 10.6 mg/dL (8.4-10.2) H 02/27/20 06:45 Total Bilirubin 0.4 mg/dL (0.2-1.3) 02/24/20 05:25 Direct Bilirubin 0.0 mg/dL (0.0-0.4) 02/24/20 05:25 Neonat Total Bilirubin Not Reportable 02/24/20 05:25 Neonat Direct Bilirubin Not Reportable 02/24/20 05:25 Neonat Indirect Bili Not Reportable 02/24/20 05:25 AST 29 U/L (14-36) 02/24/20 05:25 ALT 15 U/L (<35) 02/24/20 05:25 Alkaline Phosphatase 62 U/L (38-126) 02/24/20 05:25 Total Protein 6.3 g/dL (6.3-8.2) 02/24/20 05:25 Albumin 2.9 g/dL (3.5-5.0) L 02/24/20 05:25 Urine Color YELLOW 02/19/20 21:45 Urine Appearance CLOUDY 02/19/20 21:45 Urine pH 6.0 (5.0-9.0) 02/19/20 21:45 Ur Specific [place] 1.011 02/19/20 21:45 Urine Protein 30 mg/dL (NEGATIVE) H 02/19/20 21:45 Urine Glucose (UA) 150 mg/dL (NEGATIVE) H 02/19/20 21:45 Urine Ketones NEGATIVE mg/dL (NEGATIVE) 02/19/20 21:45 Urine Blood SMALL (NEGATIVE) H 02/19/20 21:45 Urine Nitrite NEGATIVE (NEGATIVE) 02/19/20 21:45 Urine Bilirubin NEGATIVE (NEGATIVE) 02/19/20 21:45 Urine Urobilinogen NEGATIVE mg/dL (<2.0) 02/19/20 21:45 Ur Leukocyte Esterase LARGE (NEGATIVE) H 02/19/20 21:45 Urine WBC (Auto) 24 /HPF 02/19/20 21:45 Urine RBC (Auto) 6 /HPF 02/19/20 21:45 U Hyaline Cast (Auto) 3 /LPF 02/19/20 21:45 Urine Bacteria (Auto) TRACE /HPF 02/19/20 21:45 Squamous Epi Cells Auto 1 /HPF 02/19/20 21:45 Urine Mucus (Auto) RARE /LPF 02/19/20 21:45 Urine Ascorbic Acid NEGATIVE (NEGATIVE) 02/19/20 21:45 COVID-19 Source NASOPHARYNGEAL 02/20/20 00:45 COVID-19 ([facility]) NOT DETECTED 02/20/20 00:45 Impressions: Chest X-Ray 02/19/20 00:00 IMPRESSION: Scarring versus minimal airspace disease in the left lower lobe. No new finding. Chest X-Ray 02/22/20 00:00 IMPRESSION: Unchanged radiographic appearance of the chest. Chest X-Ray 02/26/20 00:00 IMPRESSION: Borderline heart size. Cannot exclude mild pulmonary edema. There is improvement in the appearance of the left base. Stroke Is this a Stroke Patient?: No Acute Heart Failure - Is this a Heart Failure Patient?: No
== END 2020-02-27 18:44 | disposition home or self-care (01) | DRG 193 ==
LOC: 3N 12:27 → 5 23:00 → 3W 02-22 00:19
PROVIDERS: ADMIT Internal Medicine; ATTEND Internal Medicine
DX: J18.9 Pneumonia, unspecified organism (principal); J96.01 Acute respiratory failure with hypoxia; E66.2 Morbid (severe) obesity with alveolar hypoventilation; Z68.43 Body mass index [BMI] 50.0-59.9, adult; I12.9 Hypertensive chronic kidney disease with stage 1 through stage 4 chronic kidney disease, or unspecified chronic kidney disease; E86.0 Dehydration; D63.1 Anemia in chronic kidney disease; G89.4 Chronic pain syndrome; Z93.2 Ileostomy status; E11.42 Type 2 diabetes mellitus with diabetic polyneuropathy; Z79.4 Long term (current) use of insulin; E11.22 Type 2 diabetes mellitus with diabetic chronic kidney disease; N18.3 Chronic kidney disease, stage 3 (moderate); E11.40 Type 2 diabetes mellitus with diabetic neuropathy, unspecified; I48.91 Unspecified atrial fibrillation; I25.10 Atherosclerotic heart disease of native coronary artery without angina pectoris; I25.2 Old myocardial infarction; Z86.718 Personal history of other venous thrombosis and embolism; Z20.828 Contact with and (suspected) exposure to other viral communicable diseases; Z85.528 Personal history of other malignant neoplasm of kidney; Z96.652 Presence of left artificial knee joint; K21.9 Gastro-esophageal reflux disease without esophagitis; Z95.5 Presence of coronary angioplasty implant and graft; Z87.891 Personal history of nicotine dependence; Z79.51 Long term (current) use of inhaled steroids; Z79.899 Other long term (current) drug therapy; Z79.82 Long term (current) use of aspirin; Z88.5 Allergy status to narcotic agent; Z88.1 Allergy status to other antibiotic agents
CPT/HCPCS: 36415; 36600; 71045; 80048; 80053; 80076; 81001; 82803; 82962; 83036; 85025; 87040; 87086; 87088; 87186; 87635; C9803; J0692; J1170; J1642; J1815; J1940; J1956; J3490; J7060; J7120

== ENCOUNTER 2020-03-06 08:34 | Outpatient (CLI) | payer MEDICARE, MEDICAID ==
[2020-03-06 08:56] VITALS: BP 126/66
== END 2020-03-06 14:19 | disposition home or self-care (01) ==
LOC: II 08:34 → 5TH 08:45 → II 14:19
PROVIDERS: ATTEND Internal Medicine
DX: E86.0 Dehydration (principal); K94.19 Other complications of enterostomy
CPT/HCPCS: 96360; 96361; J1642

== ENCOUNTER 2020-03-13 08:53 | Outpatient (CLI) | payer MEDICARE, MEDICAID ==
[2020-03-13] MEDS ORDERED: NORMAL SALINE 500 ML IV PRN (09:01)
[2020-03-13 09:34] VITALS: BP 146/83
== END 2020-03-13 14:36 | disposition home or self-care (01) ==
LOC: II 08:53 → 5TH 08:55 → II 14:36
PROVIDERS: ATTEND Internal Medicine
DX: E86.0 Dehydration (principal); K94.19 Other complications of enterostomy
CPT/HCPCS: 96360; 96361; J1642

== ENCOUNTER 2020-03-19 15:04 | Inpatient (IN) | payer MEDICARE, MEDICAID ==
[2020-03-19] MEDS ORDERED: ACETAMINOPHEN 325 MG TABLET PO ONE (16:34)
[2020-03-19] MEDS ORDERED: CEFTRIAXONE 1 GM/D5W RTU 1 GM/50 ML RTUPB IV ONE (16:37)
--- NOTE | 2020-03-19 16:39 | ER Document Report ---
ED Respiratory Problem - General Mode of Arrival: Medic Information source: Patient, [facility] Records TRAVEL OUTSIDE OF THE [place] IN LAST 30 DAYS: No <KATEY VILLEDA - Last Filed: 03/19/20 20:07> <PATY FLOR - Last Filed: 03/19/20 21:30> - General Chief Complaint: Shortness Of Breath Stated Complaint: WEAKNESS/RIGHT LEG SWELLING Time Seen by Provider: 03/19/20 16:02 Primary Care Provider: LISA MATA MD [Primary Care Provider] - Follow up as needed Notes: 64-year-old female past medical history significant for stage III kidney disease, CHF, diabetes, pneumonia, chronic pain, A. fib, coronary artery disease, DVT, NH, hyperlipidemia, hypertension presents to the emergency room via EMS complaining of shortness of breath and "I feel achy" that started yesterday. Subjective fever. No medications for symptoms. No recent travel. No COVID-19 exposure. (KATEY VILLEDA) - Related Data Allergies/Adverse Reactions: ciprofloxacin [From Cipro] Allergy (Severe, Verified 03/19/20 16:20) Hallucinations morphine [Morphine] Allergy (Unknown, Verified 03/19/20 16:20) Past Medical History - General Information source: Patient, [facility] Records - Social History Smoking Status: Never Smoker Frequency of alcohol use: None Drug Abuse: None Family History: Hypertension - Past Medical History Cardiac Medical History: Reports: Hx Atrial Fibrillation, Hx Coronary Artery Disease, Hx DVT, Hx Heart Attack - 2002, Hx Hypercholesterolemia, Hx Hypertension Pulmonary Medical History: Reports: Hx Pneumonia - 2006 Neurological Medical History: Endocrine Medical History: Reports: Hx Diabetes Mellitus Type 1, Hx Diabetes Mellitus Type 2 Renal/ Medical History: Reports: Hx Ovarian Cysts, Hx Renal Insufficiency. Denies: Hx Peritoneal Dialysis Malignancy Medical History: Reports: Hx Renal (Kidney) Cancer GI Medical History: Reports: Hx Gastroesophageal Reflux Disease, Hx Hiatal Herni a, Hx Irritable Bowel, Hx Ulcer Musculoskeletal Medical History: Reports Hx Arthritis - Back, Knees Psychiatric Medical History: Denies: Hx Depression Traumatic Medical History: Reports: Hx Fractures Past Surgical History: Reports: Hx Abdominal Surgery - COLOSTOMY. INTESTINAL RUPTURE, Hx Bowel Surgery - COLECTOMY/ileostomy, Hx Cardiac Catheterization, Hx Cardiac Surgery - STENTS, Hx Colostomy, Hx Coronary Stent, Hx Hysterectomy, Hx Ileostomy, Hx Orthopedic Surgery - L knee replacement, right ankle pin, Other - Tracheostomy 10 yrs ago - Immunizations Immunizations up to date: Yes Hx Diphtheria, Pertussis, Tetanus Vaccination: No Hx Pneumococcal Vaccination: 09/19/13 <KATEY VILLEDA - Last Filed: 03/19/20 20:07> Review of Systems - Review of Systems Constitutional: Fever, Weakness EENT: No symptoms reported Cardiovascular: No symptoms reported Respiratory: Short of breath Gastrointestinal: No symptoms reported Musculoskeletal: No symptoms reported Skin: No symptoms reported Neurological/Psychological: No symptoms reported -: Yes All other systems reviewed and negative <KATEY VILLEDA - Last Filed: 03/19/20 20:07> Physical Exam - General General appearance: Alert In distress: Mild - Respiratory Respiratory status: No respiratory distress Chest status: Nontender Breath sounds: Decreased air movement, Rhonchi Chest palpation: Normal - Cardiovascular Rhythm: Tachycardia Heart sounds: Normal auscultation Murmur: No Friction rub: No Gallop: None auscultated - Abdominal Inspection: Normal Distension: No distension Bowel sounds: Normal Tenderness: Nontender Organomegaly: No organomegaly - Neurological Neuro grossly intact: Yes Cognition: Normal Orientation: AAOx4 Deo Coma Scale Eye Opening: Spontaneous Deo Coma Scale Verbal: Oriented Deo Coma Scale Motor: Obeys Commands Deo Coma Scale Total: 15 Speech: Normal Motor strength normal: LUE, RUE, LLE, RLE Sensory: Normal <KATEY VILLEDA Last Filed: 03/19/20 20:07> - Vital signs Vitals: Temp Pulse Resp BP Pulse Ox 101.3 F H 115 H 16 143/107 H 81 L 03/19/20 15:17 03/19/20 15:17 03/19/20 15:17 03/19/20 15:17 03/19/20 15:17 Course - Laboratory Result Diagrams: 03/19/20 16:05 03/19/20 16:05 - Diagnostic Test Radiology reviewed: Reports reviewed - EKG Interpretation by Nv EKG shows normal: Sinus rhythm - Consults Dr. Mata Time consulted: 18:50 <KATEY VILLEDA - Last Filed: 03/19/20 20:07> - Laboratory Result Diagrams: 03/19/20 16:05 03/19/20 16:05 <PATY FLOR - Last Filed: 03/19/20 21:30> - Re-evaluation Re-evalutation: 03/19/20 19:02 Patient is resting comfortably no acute distress at this time. Call was placed to her primary care physician Dr. Mata who wants patient rapid COVID test prior to admitting. 03/19/20 20:07 Patient signed out to Paty Flor nurse practitioner. All test results and plan were discussed at length. (KATEY VILLEDA) 03/19/20 21:28 Patient's rapid COVID-19 test is negative. I called and spoke with Dr. Mata and updated him regarding the results. Patient is now accepted for admission. He will place orders. (PATY FLOR) - Vital Signs Vital signs: Temp Pulse Resp BP Pulse Ox 99.0 F 115 H 13 130/79 H 96 03/19/20 16:32 03/19/20 15:17 03/19/20 20:31 03/19/20 20:31 03/19/20 20:31 - Laboratory Laboratory results interpreted by me: 03/19/20 03/19/20 03/19/20 16:05 16:05 16:05 WBC 18.0 H Hgb 11.6 L MCHC 31.4 L RDW 17.8 H Plt Count 97 L Lymph % (Auto) 5.7 L Absolute Neuts (auto) 15.9 H Seg Neutrophils % 88.2 H PT Carbon Dioxide 31 H Anion Gap 4 L BUN 33 H Creatinine 1.98 H Est GFR ( Amer) 31 L Est GFR (MDRD) Non-Af 25 L Glucose 161 H Calcium 11.4 H AST 48 H NT-Pro-B Natriuret Pep 3170 H Urine Protein Urine Glucose (UA) Urine Blood 03/19/20 03/19/20 16:30 17:40 WBC Hgb MCHC RDW Plt Count Lymph % (Auto) Absolute Neuts (auto) Seg Neutrophils % PT 16.7 H Carbon Dioxide Anion Gap BUN Creatinine Est GFR ( Amer) Est GFR (MDRD) Non-Af Glucose Calcium AST NT-Pro-B Natriuret Pep Urine Protein 100 H Urine Glucose (UA) 50 H Urine Blood SMALL H - EKG Interpretation by Me Additional EKG results interpreted by me: 03/19/20 17:14 EKG was interpreted by ED physician Dr. Scott Sinus rhythm No acute STEMI (KATEY VILLEDA) - Consults Dr. Mata Reason for consultation: 03/19/20 19:03 Reviewed all test results with Dr. Mata wants patient to have a rapid COVID test prior to excepting admission. (KATEY VILLEDA) Discharge <KATEY VILLEDA - Last Filed: 03/19/20 20:07> - Discharge Admitting Provider: [facility] Unit Admitted: [facility] <PATY FLOR - Last Filed: 03/19/20 21:30> - Discharge Clinical Impression: Shortness of breath Fever Qualifiers: Fever type: unspecified Qualified Code(s): R50.9 - Fever, unspecified CHF (congestive heart failure) Qualifiers: Heart failure type: unspecified Heart failure chronicity: unspecified Qualified Code(s): I50.9 - Heart failure, unspecified Condition: Stable Disposition: ADMITTED INPATIENT Referrals: LISA MATA MD [Primary Care Provider] - Follow up as needed
[2020-03-19 16:46] LABS: ABSOLUTE EOSINOPHILS # (AUTO) 0.1 10^3/uL (0.0-0.6); ABSOLUTE NEUT (AUTO) 15.9 10^3/uL (1.7-8.2); BASOPHILS % (AUTO) 0.1 % (0-2); EOSINOPHILS % (AUTO) 0.3 % (0-6); HEMOGLOBIN 11.6 g/dL (12.0-15.5); LYMPHOCYTES % (AUTO) 5.7 % (13-45); MEAN CORPUSCULAR HEMOGLOBIN 27.8 pg (27.0-33.4); MEAN CORPUSCULAR HGB CONC 31.4 g/dL (32.0-36.0); MEAN CORPUSCULAR VOLUME 88 fl (80-97); MONOCYTES % (AUTO) 5.7 % (3-13); RED BLOOD COUNT 4.19 10^6/uL (3.72-5.28); RED CELL DISTRIBUTION WIDTH 17.8 % (11.5-14.0); SEGMENTED NEUTROPHILS % (AUTO) 88.2 % (42-78); TOTAL CELLS COUNTED % (AUTO) 100 %
[2020-03-19 16:51] LABS: ALBUMIN 3.8 g/dL (3.5-5.0); ALKALINE PHOSPHATASE 70 U/L (38-126); ASPARTATE AMINO TRANSFERASE 48 U/L (14-36); BILIRUBIN,DIRECT 0.1 mg/dL (0.0-0.4); BLOOD UREA NITROGEN 33 mg/dL (7-20); CALCIUM 11.4 mg/dL (8.4-10.2); CARBON DIOXIDE 31 mmol/L (22-30); CHLORIDE 103 mmol/L (98-107); GLUCOSE 161 mg/dL (75-110); POTASSIUM 4.4 mmol/L (3.6-5.0); TOTAL PROTEIN 7.7 g/dL (6.3-8.2)
--- NOTE | 2020-03-19 16:54 | RADIOLOGY REPORT (SQ) ---
EXAM DESCRIPTION: CHEST SINGLE VIEW IMAGES COMPLETED DATE/TIME: 03/19/2020 4:33 pm REASON FOR STUDY: Shortness of breath COMPARISON: 02/26/2020 EXAM PARAMETERS: NUMBER OF VIEWS: One view. TECHNIQUE: Single frontal radiographic view of the chest acquired. RADIATION DOSE: NA LIMITATIONS: None. FINDINGS: LUNGS AND PLEURA: Basilar airspace disease. Probable left effusion. Findings may represe nt atelectasis or edema less likely pneumonia. Right-sided [id number] remains in place. Tip over lies the SVC. MEDIASTINUM AND HILAR STRUCTURES: No masses. Contour normal. HEART AND VASCULAR STRUCTURES: Heart remains enlarged. Mild central vascular prominence. BONES: No acute findings. HARDWARE: None in the chest. OTHER: No other significant finding. IMPRESSION: Probable vascular congestion with small left effusion. Similar findings were noted on p rior study. TECHNICAL DOCUMENTATION: JOB ID: [id number] 2010 [employer]- All Rights Reserved Reading location - IP/workstation name: [email or web address]
[2020-03-19 17:02] LABS: INTERNATIONAL RATION (INR) 1.34; PROTHROMBIN TIME 16.7 SEC (11.4-15.4)
[2020-03-19 17:03] LABS: TROPONIN I 0.025 ng/mL
[2020-03-19 17:04] LABS: PLATELET COUNT 97 10^3/uL (150-450)
[2020-03-19 17:58] LABS: APPEARANCE,URINE CLEAR; BILIRUBIN,URINE NEGATIVE (NEGATIVE); COLOR,URINE YELLOW; GLUCOSE, URINE 50 mg/dL (NEGATIVE); KETONES,URINE NEGATIVE (NEGATIVE); LEUKOCYTE ESTERASE,URINE NEGATIVE (NEGATIVE); NITRITE,URINE NEGATIVE (NEGATIVE); PROTEIN,URINE 100 mg/dL (NEGATIVE); URINE SPECIFIC GRAVITY 1.015; UROBILINOGEN,URINE NEGATIVE mg/dL (<2.0)
[2020-03-19 18:01] LABS: VENOUS BLOOD BASE EXCESS -0.3 mmol/L; VENOUS BLOOD HCO3 26.6 mmol/L (20-32); VENOUS BLOOD PH 7.31 (7.30-7.42)
[2020-03-19 18:19] LABS: ANION GAP 4 (5-19)
[2020-03-19] MEDS ORDERED: ALBUTEROL SULFATE HFA (90 MCG/PUFF) 8 GM MDI IH PRN (21:32)
--- NOTE | 2020-03-19 21:51 | EKG REPORT ---
SEVERITY:- ABNORMAL ECG - SINUS RHYTHM FIRST DEGREE AV BLOCK LEFT VENTRICULAR HYPERTROPHY PROBABLE INFERIOR INFARCT, AGE INDETERMINATE : Confirmed by: Juan Carlos Bains MD 19-Mar-2020 21:50:30
[2020-03-19] MEDS ORDERED: CEFEPIME 2 GM/D5W RTU 2 GM/50 ML RTUPB IV SCH (22:00)
[2020-03-19] MEDS: LINEZOLID 600 MG/300 ML RTUPB IV SCH (22:32)
[2020-03-20] MEDS ORDERED: CEFEPIME 2 GM/D5W RTU 2 GM/50 ML RTUPB IV ONE (00:57)
[2020-03-20] MEDS: HEPARIN SOD (PORCINE) 5,000 UNIT/ML 1 ML VIAL SUBCUT SCH ×4 (01:04→22:09)
[2020-03-20] MEDS: RINGERS SOLUTION,LACTATED 1,000 ML IV PRN ×2 (01:05→18:14)
[2020-03-20] MEDS ORDERED: ALBUTEROL SULFATE HFA (90 MCG/PUFF) 200 PUFF/8.5 GM MDI IH PRN (01:58)
[2020-03-20] MEDS ORDERED: DIPHENOXYLATE HCL/ATROP SULF 2.5-0.025 MG TABLET PO PRN (02:01)
[2020-03-20] MEDS ORDERED: LOPERAMIDE HCL 2 MG CAPSULE PO PRN (02:08)
[2020-03-20] MEDS: PREGABALIN 50 MG CAPSULE PO SCH ×3 (05:28→22:21)
[2020-03-20] MEDS: SODIUM BICARBONATE 650 MG TABLET PO SCH ×3 (05:28→22:21)
[2020-03-20] MEDS: GABAPENTIN 300 MG CAPSULE PO SCH ×3 (05:28→12:36)
[2020-03-20 06:18] LABS: ABSOLUTE EOSINOPHILS # (AUTO) 0.2 10^3/uL (0.0-0.6); ABSOLUTE LYMPHOCYTES (AUTO) 1.6 10^3/uL (0.5-4.7); ABSOLUTE MONOCYTES (AUTO) 0.9 10^3/uL (0.1-1.4); ABSOLUTE NEUT (AUTO) 12.5 10^3/uL (1.7-8.2); BASOPHILS % (AUTO) 0.1 % (0-2); EOSINOPHILS % (AUTO) 1.2 % (0-6); HEMATOCRIT 33.5 % (36.0-47.0); HEMOGLOBIN 10.6 g/dL (12.0-15.5); LYMPHOCYTES % (AUTO) 10.3 % (13-45); MEAN CORPUSCULAR HEMOGLOBIN 27.8 pg (27.0-33.4); MEAN CORPUSCULAR HGB CONC 31.5 g/dL (32.0-36.0); MEAN CORPUSCULAR VOLUME 88 fl (80-97); MONOCYTES % (AUTO) 6.2 % (3-13); SEGMENTED NEUTROPHILS % (AUTO) 82.2 % (42-78); TOTAL CELLS COUNTED % (AUTO) 100 %; WHITE BLOOD COUNT 15.2 10^3/uL (4.0-10.5)
[2020-03-20 06:38] LABS: PLATELET COUNT 73 10^3/uL (150-450)
[2020-03-20 06:53] LABS: ALBUMIN 3.3 g/dL (3.5-5.0); ALKALINE PHOSPHATASE 56 U/L (38-126); ANION GAP 5 (5-19); ASPARTATE AMINO TRANSFERASE 35 U/L (14-36); BILIRUBIN,DIRECT 0.1 mg/dL (0.0-0.4); BILIRUBIN,TOTAL 0.8 mg/dL (0.2-1.3); BLOOD UREA NITROGEN 29 mg/dL (7-20); CALCIUM 10.3 mg/dL (8.4-10.2); CARBON DIOXIDE 34 mmol/L (22-30); CHLORIDE 101 mmol/L (98-107); GLUCOSE 84 mg/dL (75-110); TOTAL PROTEIN 6.8 g/dL (6.3-8.2)
[2020-03-20] MEDS: OXYCODONE HCL IR 5 MG TABLET PO PRN (07:34)
[2020-03-20] MEDS: INSULIN LISPRO 100 UNIT/ML 3 ML VIAL SUBCUT SCH ×3 (08:44→17:26)
[2020-03-20 08:59] LABS: APPEARANCE,URINE SLIGHTLY-CLOUDY; BILIRUBIN,URINE NEGATIVE (NEGATIVE); COLOR,URINE YELLOW; GLUCOSE, URINE 50 mg/dL (NEGATIVE); KETONES,URINE NEGATIVE (NEGATIVE); LEUKOCYTE ESTERASE,URINE LARGE (NEGATIVE); NITRITE,URINE NEGATIVE (NEGATIVE); PROTEIN,URINE 100 mg/dL (NEGATIVE); URINE SPECIFIC GRAVITY 1.018; UROBILINOGEN,URINE NEGATIVE mg/dL (<2.0)
[2020-03-20] MEDS: SITAGLIPTIN PHOSPHATE 50 MG TABLET PO SCH (09:05)
[2020-03-20] MEDS: ASPIRIN 81 MG TABLET, CHEWABLE PO SCH (09:05)
[2020-03-20] MEDS: METOPROLOL SUCCINATE 50 MG TAB.SR.24H PO SCH (09:06)
[2020-03-20] MEDS: CALCITRIOL 0.25 MCG CAPSULE PO SCH (09:06)
[2020-03-20] MEDS: MAGNESIUM OXIDE 400 MG TABLET PO SCH (09:06)
[2020-03-20] MEDS: HYDRALAZINE HCL 50 MG TABLET PO SCH ×3 (09:07→18:15)
[2020-03-20] MEDS: ALLOPURINOL 100 MG TABLET PO SCH (09:07)
[2020-03-20] MEDS: CHOLESTYRAMINE 4 GM PACKET PO SCH ×2 (09:12→22:21)
[2020-03-20] MEDS: INSULIN GLARGINE,HUM.REC.ANLOG 1,000 UNIT/10 ML VIAL SUBCUT SCH ×2 (09:21→22:28)
[2020-03-20] MEDS: CEFEPIME HCL 2 GM in DEXTROSE 5%-WATER 50 ML IV SCH ×2 (09:23→22:21)
[2020-03-20] MEDS: NYSTATIN TOPICAL POWDER 15 GM TP SCH ×2 (09:36→22:28)
[2020-03-20] MEDS: CLOBETASOL PROPIONATE 0.05% CREAM 15 GM TP SCH ×2 (09:36→22:29)
[2020-03-20] MEDS: CLOTRIMAZOLE 1% CREAM 15 GM TP SCH ×2 (09:36→22:28)
[2020-03-20] MEDS: LINEZOLID 600 MG/300 ML RTUPB IV SCH ×2 (10:39→22:22)
[2020-03-20] MEDS: HYDROMORPHONE HCL INJ/PF 2 MG/ML AMPULE IV PRN ×2 (14:28→20:46)
--- NOTE | 2020-03-20 16:17 | PDOC H&P ---
History of Present Illness Admission Date/PCP: 03/19/20 22:02 LISA MATA MD History of Present Illness: RANDEE VELÁSQUEZ is a 64 year old female, She came to the emergency room for evaluation of respiratory symptoms, cough, fever, leukocytosis, hypoxemia consistent with pneumonia. She was recently discharged from this hospital on February 27, 2020 when she had pneumonia. The rapid SARS-CoV-2 test was negative she has multiple comorbid conditions including Sedentary lifestyle, morbid obesity, diabetes mellitus type 2 complicated with with neuropathy chronic pain with chronic opioid use, status post total colectomy with high output Ileostomy, multiple hospitalization for various indications. The oxygen saturation was 81% on ambient air Past Medical History Cardiac Medical History: Reports: Atrial Fibrillation, Coronary Artery Disease, DVT, Myocardial Infarction - 2002, Hyperlipidema, Hypertension Pulmonary Medical History: Reports: Pneumonia - 2006 Neurological Medical History: Endocrine Medical History: Reports: Diabetes Mellitus Type 2 Malignancy Medical History: Reports: Renal (Kidney) Cancer GI Medical History: Reports: Gastroesophageal Reflux Disease, Hiatal Hernia Musculoskeltal Medical History: Reports: Arthritis - Back, Knees Hematology: Reports: Anemia Past Surgical History Past Surgical History: Reports: Cardiac Catheterization, Colostomy, Coronary Stent, Hysterectomy, Ileostomy, Orthopedic Surgery - L knee replacement, right ankle pin, Other - Tracheostomy 10 yrs ago Social History Smoking Status: Never Smoker Frequency of Alcohol Use: None Hx Recreational Drug Use: No Drugs: None Hx Prescription Drug Abuse: No Family History Family History: Hypertension Parental Family History Reviewed: Yes Children Family History Reviewed: Yes Sibling(s) Family History Reviewed.: Yes Medication/Allergy Home Medications: Albuterol Sulfate [Albuterol Sulfate Hfa] 2 puff IH Q4HP PRN 06/19/19 Allopurinol [Zyloprim 100 mg Tablet] 100 mg PO DAILY 06/19/19 Calcitriol [Rocaltrol 0.5 mcg Capsule] 0.5 mcg PO DAILY 06/19/19 Clobetasol Propionate [Temovate 0.05% Cream 15 gm] 1 applic TOP BID 06/19/19 Clotrimazole/Betamethasone Dip [Lotrisone Cream 15 gm] 1 applic TOP BID 06/19/19 Dapagliflozin Propanediol [Farxiga] 5 mg PO DAILY 06/19/19 Loperamide HCl [Imodium 2 mg Capsule] 2 mg PO Q3HP PRN 06/19/19 Metoprolol Succinate [Toprol Xl] 200 mg PO DAILY 06/19/19 Oxycodone HCl [Oxycodone HCl 10 MG Tablet] 10 mg PO Q8HP PRN 06/19/19 Sitagliptin Phosphate [Januvia 50 mg Tablet] 50 mg PO DAILY 06/19/19 Exenatide Microspheres [Bydureon Pen] 2 mg SQ KYLE@1000 02/19/20 Hydralazine HCl [Apresoline 50 mg Tablet] 50 mg PO TID 02/19/20 Insulin Aspart [Novolog Flexpen] 0 unit SQ .SLIDING SCALE 02/19/20 Insulin Glargine,Hum.rec.anlog [Lantus Insulin 100 Unit/mL Insulin Pen] 60 unit SUBCUT Q12HP PRN 02/19/20 Magnesium Oxide [Mag-Ox 400 mg Tablet] 400 mg PO DAILY 02/19/20 Pravastatin Sodium 40 mg PO DAILY 02/19/20 Colchicine [Colcrys 0.6 mg Tablet] 0.6 mg PO DAILY 03/20/20 Fluconazole [Diflucan] 150 mg PO WE@1000 03/20/20 Nystatin [Mycostatin Topical Powder 15 gm] 1 applic TP BID 03/20/20 Oxycodone Myristate [Xtampza ER] 18 mg PO Q12 03/20/20 Pregabalin 150 mg PO Q8 03/20/20 Allergies/Adverse Reactions: ciprofloxacin [From Cipro] Allergy (Severe, Verified 03/19/20 16:20) Hallucinations morphine [Morphine] Allergy (Unknown, Verified 03/19/20 16:20) Review of Systems Constitutional: PRESENT: fever(s) Eyes: ABSENT: visual disturbances Ears: ABSENT: hearing changes Cardiovascular: ABSENT: chest pain, dyspnea on exertion, edema, orthropnea, palpitations Respiratory: PRESENT: cough, sputum Gastrointestinal: PRESENT: nausea Genitourinary: ABSENT: dysuria, hematuria Musculoskeletal: PRESENT: back pain. ABSENT: joint swelling Integumentary: ABSENT: rash, wounds Neurological: ABSENT: abnormal gait, abnormal speech, confusion, dizziness, focal weakness, syncope Psychiatric: ABSENT: anxiety, depression, homidical ideation, suicidal ideation Endocrine: ABSENT: cold intolerance, heat intolerance, menstrual abnormalities, polydipsia, polyuria Hematologic/Lymphatic: ABSENT: easy bleeding, easy bruising, lymphadenopathy Physical Exam Vital Signs: Temp Pulse Resp BP Pulse Ox 98.2 F 78 18 143/67 H 98 03/20/20 12:29 03/20/20 12:29 03/20/20 12:29 03/20/20 12:29 03/20/20 12:29 Intake & Output 03/19/20 03/20/20 03/21/20 06:59 06:59 06:59 Intake Total 400 815 Output Total 700 500 Balance -300 315 Weight 119.8 kg General appearance: PRESENT: obese Head exam: PRESENT: atraumatic, normocephalic Eye exam: PRESENT: conjunctiva pink, EOMI, PERRLA Ear exam: PRESENT: normal external ear exam Mouth exam: PRESENT: moist, tongue midline Neck exam: PRESENT: full ROM. ABSENT: carotid bruit, JVD, lymphadenopathy, thyromegaly Cardiovascular exam: PRESENT: RRR. ABSENT: diastolic murmur, rubs, systolic murmur Pulses: PRESENT: normal dorsalis pedis pul, +2 pedal pulses bilateral Vascular exam: PRESENT: normal capillary refill GI/Abdominal exam: PRESENT: normal bowel sounds, soft Rectal exam: PRESENT: deferred Neurological exam: PRESENT: alert, CN II-XII grossly intact Psychiatric exam: PRESENT: appropriate affect, normal mood Skin exam: PRESENT: dry, intact, warm Results Laboratory Results: 03/20/20 05:35 03/20/20 05:35 03/19/20 03/19/20 03/19/20 16:05 16:05 16:40 WBC 18.0 H RBC 4.19 Hgb 11.6 L Hct 37.0 MCV 88 MCH 27.8 MCHC 31.4 L RDW 17.8 H Plt Count 97 L Seg Neutrophils % 88.2 H VBG pH 7.31 VBG pCO2 54.0 VBG HCO3 26.6 VBG Base Excess -0.3 Sodium 138.4 Potassium 4.4 Chloride 103 Carbon Dioxide 31 H Anion Gap 4 L BUN 33 H Creatinine 1.98 H Est GFR ( Amer) 31 L Glucose 161 H Lactic Acid Calcium 11.4 H Total Bilirubin 1.0 AST 48 H Alkaline Phosphatase 70 Total Protein 7.7 Albumin 3.8 Urine Color Urine Appearance Urine pH Ur Specific [place] Urine Protein Urine Glucose (UA) Urine Ketones Urine Blood Urine Nitrite Ur Leukocyte Esterase Urine WBC (Auto) Urine RBC (Auto) 03/19/20 03/19/20 03/19/20 16:40 17:40 23:21 WBC RBC Hgb Hct MCV MCH MCHC RDW Plt Count Seg Neutrophils % VBG pH VBG pCO2 VBG HCO3 VBG Base Excess Sodium Potassium Chloride Carbon Dioxide Anion Gap BUN Creatinine Est GFR ( Amer) Glucose Lactic Acid 1.0 0.7 Calcium Total Bilirubin AST Alkaline Phosphatase Total Protein Albumin Urine Color YELLOW Urine Appearance CLEAR Urine pH 6.0 Ur Specific [place] 1.015 Urine Protein 100 H Urine Glucose (UA) 50 H Urine Ketones NEGATIVE Urine Blood SMALL H Urine Nitrite NEGATIVE Ur Leukocyte Esterase NEGATIVE Urine WBC (Auto) 0 Urine RBC (Auto) 0 03/20/20 03/20/20 03/20/20 05:35 05:35 05:35 WBC 15.2 H RBC 3.80 Hgb 10.6 L Hct 33.5 L MCV 88 MCH 27.8 MCHC 31.5 L RDW 18.0 H Plt Count 73 L Seg Neutrophils % 82.2 H VBG pH VBG pCO2 VBG HCO3 VBG Base Excess Sodium 139.5 Potassium 4.0 Chloride 101 Carbon Dioxide 34 H Anion Gap 5 BUN 29 H Creatinine 1.76 H Est GFR ( Amer) 35 L Glucose 84 Lactic Acid 0.8 Calcium 10.3 H Total Bilirubin 0.8 AST 35 Alkaline Phosphatase 56 Total Protein 6.8 Albumin 3.3 L Urine Color Urine Appearance Urine pH Ur Specific [place] Urine Protein Urine Glucose (UA) Urine Ketones Urine Blood Urine Nitrite Ur Leukocyte Esterase Urine WBC (Auto) Urine RBC (Auto) 03/20/20 05:35 WBC RBC Hgb Hct MCV MCH MCHC RDW Plt Count Seg Neutrophils % VBG pH VBG pCO2 VBG HCO3 VBG Base Excess Sodium Potassium Chloride Carbon Dioxide Anion Gap BUN Creatinine Est GFR ( Amer) Glucose Lactic Acid Calcium Total Bilirubin AST Alkaline Phosphatase Total Protein Albumin Urine Color YELLOW Urine Appearance SLIGHTLY-CLOUDY Urine pH 6.0 Ur Specific [place] 1.018 Urine Protein 100 H Urine Glucose (UA) 50 H Urine Ketones NEGATIVE Urine Blood MODERATE H Urine Nitrite NEGATIVE Ur Leukocyte Esterase LARGE H Urine WBC (Auto) 49 Urine RBC (Auto) 3 03/19/20 03/19/20 03/19/20 16:05 23:21 23:21 Creatine Kinase 132 Troponin I 0.025 0.030 NT-Pro-B Natriuret Pep 3170 H Impressions: Chest X-Ray 03/19/20 16:21 IMPRESSION: Probable vascular congestion with small left effusion. Similar findings were noted on prior study. Assessment & Plan - Diagnosis (1) Acute hypoxemic respiratory failure Is this a current diagnosis for this admission?: Yes Plan: The oxygen saturation was 81% on ambient air patient required supplemental oxygen via nasal cannula (2) Healthcare-associated pneumonia Is this a current diagnosis for this admission?: Yes Plan: Patient was recently hospitalized within the past 3 months, was discharged from this hospital on February 27, 2020, she medicated area for healthcare associated pneumonia, this category was used to identify patients at risk for infection with multiple drug-resistant pathogens, she will cover with cefepime and Zyvox this will cover potential pathogens Zyvox is chosen over vancomycin because of the chronic kidney disease, she has allergy to ciprofloxacin which makes Levaquin not a good choice. (3) Chronic kidney disease, stage 3 Is this a current diagnosis for this admission?: Yes Plan: She has chronic kidney disease stage III (4) Coronary artery disease Qualifiers: Coronary Disease-Associated Artery/Lesion type: unspecified vessel or lesion type [place] vs. transplanted heart: [place] heart Associated angina: without angina Qualified Code(s): I25.10 - Atherosclerotic heart disease of [place] coronary artery without angina pectoris Is this a current diagnosis for this admission?: Yes Plan: Stable (5) High output ileostomy Is this a current diagnosis for this admission?: Yes (6) Morbid obesity Is this a current diagnosis for this admission?: Yes (7) Chronic systolic heart failure Is this a current diagnosis for this admission?: Yes (8) Diabetes mellitus Qualifiers: Diabetes mellitus type: type 2 Diabetes mellitus keno terminal operator insulin use: with keno terminal operator use Diabetes mellitus complication status: with kidney complications Diabetes mellitus complication detail: with chronic kidney disease Chronic kidney disease stage: stage 3 (moderate) Qualified Code(s): E11.22 - Type 2 diabetes mellitus with diabetic chronic kidney disease; N18.3 - Chronic kidney disease, stage 3 (moderate); Z79.4 - skilled nursing (current) use of insulin Is this a current diagnosis for this admission?: Yes
--- NOTE | 2020-03-20 16:23 | PDOC PROGRESS REPORT ---
Subjective Progress Note for:: 03/20/20 Subjective:: Patient was admitted for the management of pneumonia, acute hypoxemic respiratory failure, she complain of generalized body pains Reason For Visit: HEALTHCARE ASSOCIATED PNEUMONIA Physical Exam Vital Signs: Temp Pulse Resp BP Pulse Ox 98.2 F 78 18 143/67 H 98 03/20/20 12:29 03/20/20 12:29 03/20/20 12:29 03/20/20 12:29 03/20/20 12:29 Intake & Output 03/19/20 03/20/20 03/21/20 06:59 06:59 06:59 Intake Total 400 815 Output Total 700 500 Balance -300 315 Weight 119.8 kg General appearance: PRESENT: no acute distress Eye exam: PRESENT: PERRLA Respiratory exam: PRESENT: clear to auscultation stephen Cardiovascular exam: PRESENT: +S1, +S2 GI/Abdominal exam: PRESENT: soft Neurological exam: PRESENT: alert Results Laboratory Results: 03/20/20 05:35 03/20/20 05:35 03/19/20 03/19/20 03/19/20 16:05 16:05 16:40 WBC 18.0 H RBC 4.19 Hgb 11.6 L Hct 37.0 MCV 88 MCH 27.8 MCHC 31.4 L RDW 17.8 H Plt Count 97 L Seg Neutrophils % 88.2 H VBG pH 7.31 VBG pCO2 54.0 VBG HCO3 26.6 VBG Base Excess -0.3 Sodium 138.4 Potassium 4.4 Chloride 103 Carbon Dioxide 31 H Anion Gap 4 L BUN 33 H Creatinine 1.98 H Est GFR ( Amer) 31 L Glucose 161 H Lactic Acid Calcium 11.4 H Total Bilirubin 1.0 AST 48 H Alkaline Phosphatase 70 Total Protein 7.7 Albumin 3.8 Urine Color Urine Appearance Urine pH Ur Specific [place] Urine Protein Urine Glucose (UA) Urine Ketones Urine Blood Urine Nitrite Ur Leukocyte Esterase Urine WBC (Auto) Urine RBC (Auto) 03/19/20 03/19/20 03/19/20 16:40 17:40 23:21 WBC RBC Hgb Hct MCV MCH MCHC RDW Plt Count Seg Neutrophils % VBG pH VBG pCO2 VBG HCO3 VBG Base Excess Sodium Potassium Chloride Carbon Dioxide Anion Gap BUN Creatinine Est GFR ( Amer) Glucose Lactic Acid 1.0 0.7 Calcium Total Bilirubin AST Alkaline Phosphatase Total Protein Albumin Urine Color YELLOW Urine Appearance CLEAR Urine pH 6.0 Ur Specific [place] 1.015 Urine Protein 100 H Urine Glucose (UA) 50 H Urine Ketones NEGATIVE Urine Blood SMALL H Urine Nitrite NEGATIVE Ur Leukocyte Esterase NEGATIVE Urine WBC (Auto) 0 Urine RBC (Auto) 0 03/20/20 03/20/20 03/20/20 05:35 05:35 05:35 WBC 15.2 H RBC 3.80 Hgb 10.6 L Hct 33.5 L MCV 88 MCH 27.8 MCHC 31.5 L RDW 18.0 H Plt Count 73 L Seg Neutrophils % 82.2 H VBG pH VBG pCO2 VBG HCO3 VBG Base Excess Sodium 139.5 Potassium 4.0 Chloride 101 Carbon Dioxide 34 H Anion Gap 5 BUN 29 H Creatinine 1.76 H Est GFR ( Amer) 35 L Glucose 84 Lactic Acid 0.8 Calcium 10.3 H Total Bilirubin 0.8 AST 35 Alkaline Phosphatase 56 Total Protein 6.8 Albumin 3.3 L Urine Color Urine Appearance Urine pH Ur Specific [place] Urine Protein Urine Glucose (UA) Urine Ketones Urine Blood Urine Nitrite Ur Leukocyte Esterase Urine WBC (Auto) Urine RBC (Auto) 03/20/20 05:35 WBC RBC Hgb Hct MCV MCH MCHC RDW Plt Count Seg Neutrophils % VBG pH VBG pCO2 VBG HCO3 VBG Base Excess Sodium Potassium Chloride Carbon Dioxide Anion Gap BUN Creatinine Est GFR ( Amer) Glucose Lactic Acid Calcium Total Bilirubin AST Alkaline Phosphatase Total Protein Albumin Urine Color YELLOW Urine Appearance SLIGHTLY-CLOUDY Urine pH 6.0 Ur Specific [place] 1.018 Urine Protein 100 H Urine Glucose (UA) 50 H Urine Ketones NEGATIVE Urine Blood MODERATE H Urine Nitrite NEGATIVE Ur Leukocyte Esterase LARGE H Urine WBC (Auto) 49 Urine RBC (Auto) 3 03/19/20 03/19/20 03/19/20 16:05 23:21 23:21 Creatine Kinase 132 Troponin I 0.025 0.030 NT-Pro-B Natriuret Pep 3170 H Impressions: Chest X-Ray 03/19/20 16:21 IMPRESSION: Probable vascular congestion with small left effusion. Similar findings were noted on prior study. Assessment & Plan - Diagnosis (1) Acute hypoxemic respiratory failure Is this a current diagnosis for this admission?: Yes Plan: Continue supplemental oxygen via nasal cannula (2) Healthcare-associated pneumonia Is this a current diagnosis for this admission?: Yes Plan: Continue IV antibiotic (3) Chronic kidney disease, stage 3 Is this a current diagnosis for this admission?: Yes (4) Coronary artery disease Qualifiers: Coronary Disease-Associated Artery/Lesion type: unspecified vessel or lesion type [place] vs. transplanted heart: [place] heart Associated angina: without angina Qualified Code(s): I25.10 - Atherosclerotic heart disease of [place] coronary artery without angina pectoris Is this a current diagnosis for this admission?: Yes (5) High output ileostomy Is this a current diagnosis for this admission?: Yes (6) Morbid obesity Is this a current diagnosis for this admission?: Yes (7) Chronic systolic heart failure Is this a current diagnosis for this admission?: Yes (8) Diabetes mellitus Qualifiers: Diabetes mellitus type: type 2 Diabetes mellitus termite exterminator helper insulin use: with termite exterminator helper use Diabetes mellitus complication status: with kidney complications Diabetes mellitus complication detail: with chronic kidney disease Chronic kidney disease stage: stage 3 (moderate) Qualified Code(s): E11.22 - Type 2 diabetes mellitus with diabetic chronic kidney disease; N18.3 - Chronic kidney disease, stage 3 (moderate); Z79.4 - penitentiary (current) use of insulin Is this a current diagnosis for this admission?: Yes - Time Time Spent with patient: 35 or more minutes Level of Care: CU
[2020-03-20] MEDS: ATORVASTATIN CALCIUM 10 MG TABLET PO SCH (22:21)
[2020-03-21] MEDS: HYDROMORPHONE HCL INJ/PF 2 MG/ML AMPULE IV PRN ×4 (03:07→22:22)
[2020-03-21] MEDS: HEPARIN SOD (PORCINE) 5,000 UNIT/ML 1 ML VIAL SUBCUT SCH ×3 (05:22→22:08)
[2020-03-21] MEDS: SODIUM BICARBONATE 650 MG TABLET PO SCH ×3 (05:23→22:26)
[2020-03-21] MEDS: PREGABALIN 50 MG CAPSULE PO SCH ×3 (05:23→22:26)
[2020-03-21 07:42] LABS: ABSOLUTE EOSINOPHILS # (AUTO) 0.3 10^3/uL (0.0-0.6); ABSOLUTE LYMPHOCYTES (AUTO) 0.9 10^3/uL (0.5-4.7); ABSOLUTE MONOCYTES (AUTO) 0.6 10^3/uL (0.1-1.4); ABSOLUTE NEUT (AUTO) 6.5 10^3/uL (1.7-8.2); BASOPHILS % (AUTO) 0.4 % (0-2); HEMATOCRIT 32.5 % (36.0-47.0); HEMOGLOBIN 10.5 g/dL (12.0-15.5); LYMPHOCYTES % (AUTO) 11.4 % (13-45); MEAN CORPUSCULAR HEMOGLOBIN 28.3 pg (27.0-33.4); MEAN CORPUSCULAR HGB CONC 32.4 g/dL (32.0-36.0); MEAN CORPUSCULAR VOLUME 88 fl (80-97); MONOCYTES % (AUTO) 6.8 % (3-13); RED BLOOD COUNT 3.71 10^6/uL (3.72-5.28); RED CELL DISTRIBUTION WIDTH 17.4 % (11.5-14.0); SEGMENTED NEUTROPHILS % (AUTO) 78.4 % (42-78); TOTAL CELLS COUNTED % (AUTO) 100 %; WHITE BLOOD COUNT 8.3 10^3/uL (4.0-10.5)
[2020-03-21 07:50] LABS: ALBUMIN 3.1 g/dL (3.5-5.0); ALKALINE PHOSPHATASE 60 U/L (38-126); ASPARTATE AMINO TRANSFERASE 30 U/L (14-36); BILIRUBIN,TOTAL 0.6 mg/dL (0.2-1.3); BLOOD UREA NITROGEN 25 mg/dL (7-20); CALCIUM 9.5 mg/dL (8.4-10.2); CARBON DIOXIDE 35 mmol/L (22-30); CHLORIDE 97 mmol/L (98-107); GLUCOSE 145 mg/dL (75-110); TOTAL PROTEIN 6.6 g/dL (6.3-8.2)
[2020-03-21 07:55] LABS: ANION GAP 5 (5-19)
[2020-03-21] MEDS: INSULIN LISPRO 100 UNIT/ML 3 ML VIAL SUBCUT SCH ×3 (08:20→18:21)
[2020-03-21 08:27] LABS: PLATELET COUNT 74 10^3/uL (150-450)
[2020-03-21] MEDS: CEFEPIME HCL 2 GM in DEXTROSE 5%-WATER 50 ML IV SCH ×2 (09:37→22:28)
[2020-03-21] MEDS: METOPROLOL SUCCINATE 50 MG TAB.SR.24H PO SCH (09:38)
[2020-03-21] MEDS: SITAGLIPTIN PHOSPHATE 50 MG TABLET PO SCH (09:40)
[2020-03-21] MEDS: ALLOPURINOL 100 MG TABLET PO SCH (09:40)
[2020-03-21] MEDS: HYDRALAZINE HCL 50 MG TABLET PO SCH ×3 (09:40→18:23)
[2020-03-21] MEDS: CALCITRIOL 0.25 MCG CAPSULE PO SCH (09:40)
[2020-03-21] MEDS: MAGNESIUM OXIDE 400 MG TABLET PO SCH (09:41)
[2020-03-21] MEDS: ASPIRIN 81 MG TABLET, CHEWABLE PO SCH (09:41)
[2020-03-21] MEDS: CHOLESTYRAMINE 4 GM PACKET PO SCH ×2 (09:43→22:27)
[2020-03-21] MEDS: CLOTRIMAZOLE 1% CREAM 15 GM TP SCH ×2 (09:43→22:30)
[2020-03-21] MEDS: CLOBETASOL PROPIONATE 0.05% CREAM 15 GM TP SCH ×2 (09:43→22:30)
[2020-03-21] MEDS: NYSTATIN TOPICAL POWDER 15 GM TP SCH ×2 (09:43→22:29)
[2020-03-21] MEDS: LINEZOLID 600 MG/300 ML RTUPB IV SCH (10:14)
[2020-03-21] MEDS: RINGERS SOLUTION,LACTATED 1,000 ML IV PRN (10:15)
[2020-03-21] MEDS: INSULIN GLARGINE,HUM.REC.ANLOG 1,000 UNIT/10 ML VIAL SUBCUT SCH ×2 (10:19→22:10)
[2020-03-21] MEDS: OXYCODONE HCL IR 5 MG TABLET PO PRN (13:47)
--- NOTE | 2020-03-21 19:05 | PDOC PROGRESS REPORT ---
Subjective Progress Note for:: 03/21/20 Subjective:: Patient seen by the bedside, she is coughing less the blood culture positive for cocci in clusters Reason For Visit: [facility] P[facility]UMON[facility] Physical Exam Vital Signs: Temp Pulse Resp BP Pulse Ox 97.9 F 75 18 151/80 H 96 03/21/20 15:48 03/21/20 15:48 03/21/20 15:48 03/21/20 15:48 03/21/20 15:48 Intake & Output 03/20/20 03/21/20 03/22/20 06:59 06:59 06:59 Intake Total 400 2775 2039 Output Total 700 1850 400 Balance -623 565 9554 Weight 119.8 kg 119 kg General appearance: PRESENT: no acute distress Eye exam: PRESENT: PERRLA Respiratory exam: PRESENT: rhonchi Cardiovascular exam: PRESENT: +S1, +S2 GI/Abdominal exam: PRESENT: soft Neurological exam: PRESENT: alert Results Laboratory Results: 03/21/20 07:00 03/21/20 07:00 03/21/20 03/21/20 07:00 07:00 WBC 8.3 RBC 3.71 L Hgb 10.5 L Hct 32.5 L MCV 88 MCH 28.3 MCHC 32.4 RDW 17.4 H Plt Count 74 L Seg Neutrophils % 78.4 H Sodium 136.8 L Potassium 4.0 Chloride 97 L Carbon Dioxide 35 H Anion Gap 5 BUN 25 H Creatinine 1.90 H Est GFR ( Amer) 32 L Glucose 145 H Calcium 9.5 Total Bilirubin 0.6 AST 30 Alkaline Phosphatase 60 Total Protein 6.6 Albumin 3.1 L 03/20/20 14:30 Sputum Gram Stain - Final 03/20/20 05:35 Clean Catch Midstream Urine Culture - Final Mixed Urogenital Graciela 03/19/20 16:52 Blood Blood Culture (PCR) - Final Staphylococcus Species 03/19/20 03/19/20 03/19/20 16:05 23:21 23:21 Creatine Kinase 132 Troponin I 0.025 0.030 NT-Pro-B Natriuret Pep 3170 H Impressions: Chest X-Ray 03/19/20 16:21 IMPRESSION: Probable vascular congestion with small left effusion. Similar findings were noted on prior study. Assessment & Plan - Diagnosis (1) Acute hypoxemic respiratory failure Is this a current diagnosis for this admission?: Yes Plan: Continue supplemental oxygen via nasal cannula (2) Healthcare-associated pneumonia Is this a current diagnosis for this admission?: Yes Plan: Continue IV antibiotic (3) Chronic kidney disease, stage 3 Is this a current diagnosis for this admission?: Yes (4) Coronary artery disease Qualifiers: Coronary Disease-Associated Artery/Lesion type: unspecified vessel or lesion type [place] vs. transplanted heart: [place] heart Associated angina: without angina Qualified Code(s): I25.10 - Atherosclerotic heart disease of [place] coronary artery without angina pectoris Is this a current diagnosis for this admission?: Yes (5) High output ileostomy Is this a current diagnosis for this admission?: Yes (6) Morbid obesity Is this a current diagnosis for this admission?: Yes (7) Chronic systolic heart failure Is this a current diagnosis for this admission?: Yes (8) Diabetes mellitus Qualifiers: Diabetes mellitus type: type 2 Diabetes mellitus fci insulin use: with fci use Diabetes mellitus complication status: with kidney complications Diabetes mellitus complication detail: with chronic kidney disease Chronic kidney disease stage: stage 3 (moderate) Qualified Code(s): E11.22 - Type 2 diabetes mellitus with diabetic chronic kidney disease; N18.3 - Chronic kidney disease, stage 3 (moderate); Z79.4 - prison (current) use of insulin Is this a current diagnosis for this admission?: Yes Plan: continue treatment - Time Time Spent with patient: 35 or more minutes Level of Care: IMCU Medications reviewed and adjusted accordingly: Yes
[2020-03-21] MEDS: ATORVASTATIN CALCIUM 10 MG TABLET PO SCH (22:26)
[2020-03-22] MEDS: LINEZOLID 600 MG/300 ML RTUPB IV SCH ×3 (01:06→23:12)
[2020-03-22] MEDS: RINGERS SOLUTION,LACTATED 1,000 ML IV PRN ×2 (01:07→17:56)
[2020-03-22] MEDS: HYDROMORPHONE HCL INJ/PF 2 MG/ML AMPULE IV PRN ×4 (05:12→23:50)
[2020-03-22] MEDS: SODIUM BICARBONATE 650 MG TABLET PO SCH ×3 (05:16→22:00)
[2020-03-22] MEDS: PREGABALIN 50 MG CAPSULE PO SCH ×3 (05:17→22:00)
[2020-03-22] MEDS: HEPARIN SOD (PORCINE) 5,000 UNIT/ML 1 ML VIAL SUBCUT SCH ×3 (05:17→21:54)
[2020-03-22 08:06] LABS: ABSOLUTE EOSINOPHILS # (AUTO) 0.2 10^3/uL (0.0-0.6); ABSOLUTE LYMPHOCYTES (AUTO) 1.1 10^3/uL (0.5-4.7); ABSOLUTE MONOCYTES (AUTO) 0.5 10^3/uL (0.1-1.4); ABSOLUTE NEUT (AUTO) 5.6 10^3/uL (1.7-8.2); BASOPHILS % (AUTO) 0.2 % (0-2); EOSINOPHILS % (AUTO) 3.3 % (0-6); HEMATOCRIT 34.2 % (36.0-47.0); LYMPHOCYTES % (AUTO) 15.1 % (13-45); MEAN CORPUSCULAR VOLUME 87 fl (80-97); RED BLOOD COUNT 3.92 10^6/uL (3.72-5.28); RED CELL DISTRIBUTION WIDTH 17.9 % (11.5-14.0); SEGMENTED NEUTROPHILS % (AUTO) 74.4 % (42-78); TOTAL CELLS COUNTED % (AUTO) 100 %; WHITE BLOOD COUNT 7.5 10^3/uL (4.0-10.5)
[2020-03-22 08:19] LABS: ALBUMIN 3.4 g/dL (3.5-5.0); ALKALINE PHOSPHATASE 65 U/L (38-126); ASPARTATE AMINO TRANSFERASE 31 U/L (14-36); BILIRUBIN,DIRECT 0.1 mg/dL (0.0-0.4); BILIRUBIN,TOTAL 0.7 mg/dL (0.2-1.3); BLOOD UREA NITROGEN 24 mg/dL (7-20); CALCIUM 9.3 mg/dL (8.4-10.2); GLUCOSE 140 mg/dL (75-110); POTASSIUM 4.1 mmol/L (3.6-5.0)
[2020-03-22] MEDS: INSULIN LISPRO 100 UNIT/ML 3 ML VIAL SUBCUT SCH ×3 (08:19→16:19)
[2020-03-22 08:24] LABS: CARBON DIOXIDE 32 mmol/L (22-30); CHLORIDE 100 mmol/L (98-107)
[2020-03-22 08:31] LABS: ANION GAP 4 (5-19)
[2020-03-22 08:46] LABS: PLATELET COUNT 81 10^3/uL (150-450)
[2020-03-22 08:47] LABS: ANISOCYTOSIS 1+; HYPOCHROMASIA SLIGHT; POLYCHROMASIA SLIGHT
[2020-03-22 08:48] LABS: PLATELET COMMENT DECREASED
[2020-03-22] MEDS: INSULIN GLARGINE,HUM.REC.ANLOG 1,000 UNIT/10 ML VIAL SUBCUT SCH ×2 (09:18→21:54)
[2020-03-22] MEDS: SITAGLIPTIN PHOSPHATE 50 MG TABLET PO SCH (09:19)
[2020-03-22] MEDS: HYDRALAZINE HCL 50 MG TABLET PO SCH ×3 (09:19→17:34)
[2020-03-22] MEDS: CHOLESTYRAMINE 4 GM PACKET PO SCH ×2 (09:19→22:03)
[2020-03-22] MEDS: ASPIRIN 81 MG TABLET, CHEWABLE PO SCH (09:19)
[2020-03-22] MEDS: METOPROLOL SUCCINATE 50 MG TAB.SR.24H PO SCH (09:20)
[2020-03-22] MEDS: MAGNESIUM OXIDE 400 MG TABLET PO SCH (09:20)
[2020-03-22] MEDS: CALCITRIOL 0.25 MCG CAPSULE PO SCH (09:20)
[2020-03-22] MEDS: ALLOPURINOL 100 MG TABLET PO SCH (09:20)
[2020-03-22] MEDS: CEFEPIME HCL 2 GM in DEXTROSE 5%-WATER 50 ML IV SCH ×2 (09:28→22:01)
[2020-03-22] MEDS: CLOBETASOL PROPIONATE 0.05% CREAM 15 GM TP SCH ×2 (09:34→22:05)
[2020-03-22] MEDS: NYSTATIN TOPICAL POWDER 15 GM TP SCH ×2 (09:34→22:04)
[2020-03-22] MEDS: CLOTRIMAZOLE 1% CREAM 15 GM TP SCH ×2 (09:34→22:04)
--- NOTE | 2020-03-22 20:47 | RADIOLOGY REPORT (SQ) ---
EXAM DESCRIPTION: CT CHEST WITHOUT IV CONTRAST COMPLETED DATE/TME: 03/22/2020 00:00 CLINICAL HISTORY: 64 years, Female, HEMOPTYSIS COMPARISON: Prior CT chest dated 12/18/2014; prior CT abdomen/pelvis dated 07/26/2019 TECHNIQUE: Noncontrast CT chest was acquired. Coronal and sagittal reformations were created. Images stored on PACS. All CT scanners at this facility use dose modulation, iterative reconstruction, and/or weight based dosing when appropriate to reduce radiation dose to as low as reasonably achievable (ALARA). [facility]: Dose Right [facility]: CareDose [facility]: Dose Right [facility]: Teradose 4D [facility]: Smart [employer] LIMITATIONS: None. FINDINGS: Central airways are patent. Lung windows show multifocal areas of groundglass and nodular consolidative opacity located about the basilar segments of both lower lobes, left more pronounced than right. The largest area of consolidation is located within the periphery of the left lower lobe on image 35 of series 4. This appears somewhat bandlike in configuration. There is also likely some degree of patchy tree-in-bud opacity about the basilar segments of both lower lobes. Overall, these findings are new from the previous CT chest dated 12/18/2014. In addition, there is mild hazy groundglass opacity within the left upper lobe/lingula. Mediastinal windows show several mildly enlarged mediastinal lymph nodes. For example, there is an enlarged pretracheal lymph node on image 16 of series 3 measuring 1.5 x 1.4 cm in size. An additional enlarged prevascular lymph node is also evident on image 18 of series 3 measuring 1.0 x 1.4 cm in size. Calcifications and/or coronary artery stents are noted about the coronary vessels. Limited evaluation of the upper abdomen reveals cholelithiasis. In addition, there is a mildly enlarged stephani hepatic lymph node on image 54 series 3 measuring 1.9 x 1.3 cm in size, nonspecific/indeterminate. However, this was likely present on the previous examination dated 04/16/2019. An intermediate density lesion appears emanates from the upper pole the right kidney on image 50 of series 3 measuring 1.3 x 1.1 cm in size, indeterminate on this noncontrast study. Bone windows show no destructive osseous lesions. However, there is flowing ossification of the anterior longitudinal ligament, indicating diffuse idiopathic skeletal hyperostosis. IMPRESSION: Multifocal patchy consolidative opacity located about the basilar segments of both lower lobes with elements of tree-in-bud and groundglass opacity. Additional mild groundglass opacity within the left upper lobe. Overall, findings are most suspicious for an atypical infectious/inflammatory process/multifocal pneumonia. Short interval follow-up to clearing is recommended (3 months) to exclude a more sinister process such as malignancy. Mediastinal lymphadenopathy, likely reactive. Additional mildly enlarged stephani hepatic lymph node is indeterminate though appears similar to the previous exam dated 04/16/2019. Cholelithiasis. Indeterminate intermediate density lesion emanating from the upper pole of the right kidney. Correlate with retroperitoneal ultrasound. TECHNICAL DOCUMENTATION: Quality ID # [id number]: Final reports with documentation of one or more dose reduction techniques (e.g., Automated exposure control, adjustment of the mA and/or kV according to patient size, use of iterative reconstruction technique) copyright 2010 [employer]- All Rights Reserved
--- NOTE | 2020-03-22 21:36 | PDOC PROGRESS REPORT ---
Subjective Progress Note for:: 03/22/20 Subjective:: She said she has hemoptysis, CT chest without IV contrast was obtained it demonstrated patent central airways, multifocal patchy consolidative opacity located about the basilar segments of both lower lobes with elements of tree-in-bud and groundglass opacity. Additional mild groundglass opacity within the left upper lobe. Overall findings most suspicious for an atypical infectious/inflammatory process/multifocal pneumonia Reason For Visit: [facility] PNEUMON[facility] Physical Exam Vital Signs: Temp Pulse Resp BP Pulse Ox 97.8 F 78 16 166/83 H 97 03/22/20 19:48 03/22/20 19:48 03/22/20 19:48 03/22/20 19:48 03/22/20 19:48 Intake & Output 03/21/20 03/22/20 03/23/20 06:59 06:59 06:59 Intake Total 2775 3707 2040 Output Total 1850 2875 2450 Balance 925 832 -410 Weight 119 kg 118.9 kg General appearance: PRESENT: no acute distress Eye exam: PRESENT: PERRLA Respiratory exam: PRESENT: clear to auscultation stephen Cardiovascular exam: PRESENT: +S1, +S2 Neurological exam: PRESENT: alert Results Laboratory Results: 03/22/20 07:45 03/22/20 07:45 03/22/20 03/22/20 07:45 07:45 WBC 7.5 RBC 3.92 Hgb 11.0 L Hct 34.2 L MCV 87 MCH 28.0 MCHC 32.0 RDW 17.9 H Plt Count 81 L Seg Neutrophils % 74.4 Sodium 136.3 L Potassium 4.1 Chloride 100 Carbon Dioxide 32 H Anion Gap 4 L BUN 24 H Creatinine 1.83 H Est GFR ( Amer) 34 L Glucose 140 H Calcium 9.3 Total Bilirubin 0.7 AST 31 Alkaline Phosphatase 65 Total Protein 7.0 Albumin 3.4 L 03/19/20 16:52 Blood Blood Culture (PCR) - Final Staphylococcus Species 03/19/20 16:52 Blood Blood Culture - Final Staphylococcus Epidermidis 03/20/20 14:30 Sputum Gram Stain - Final 03/19/20 03/19/20 03/19/20 16:05 23:21 23:21 Creatine Kinase 132 Troponin I 0.025 0.030 NT-Pro-B Natriuret Pep 3170 H Impressions: Chest X-Ray 03/19/20 16:21 IMPRESSION: Probable vascular congestion with small left effusion. Similar findings were noted on prior study. Chest CT 03/22/20 00:00 IMPRESSION: Multifocal patchy consolidative opacity located about the basilar segments of both lower lobes with elements of tree-in-bud and groundglass opacity. Additional mild groundglass opacity within the left upper lobe. Overall, findings are most suspicious for an atypical infectious/inflammatory process/multifocal pneumonia. Short interval follow-up to clearing is recommended (3 months) to exclude a more sinister process such as malignancy. Mediastinal lymphadenopathy, likely reactive. Additional mildly enlarged stephani hepatic lymph node is indeterminate though appears similar to the previous exam dated 04/16/2019. Cholelithiasis. Indeterminate intermediate density lesion emanating from the upper pole of the right kidney. Correlate with retroperitoneal ultrasound. TECHNICAL DOCUMENTATION: Quality ID # [id number]: Final reports with documentation of one or more dose reduction techniques (e.g., Automated exposure control, adjustment of the mA and/or kV according to patient size, use of iterative reconstruction technique) copyright 2011 [employer]- All Rights Reserved Assessment & Plan - Diagnosis (1) Acute hypoxemic respiratory failure Is this a current diagnosis for this admission?: Yes Plan: Continue supplemental oxygen via nasal cannula (2) Healthcare-associated pneumonia Is this a current diagnosis for this admission?: Yes Plan: Continue IV antibiotic (3) Chronic kidney disease, stage 3 Is this a current diagnosis for this admission?: Yes (4) Coronary artery disease Qualifiers: Coronary Disease-Associated Artery/Lesion type: unspecified vessel or lesion type [place] vs. transplanted heart: [place] heart Associated angina: without angina Qualified Code(s): I25.10 - Atherosclerotic heart disease of [place] coronary artery without angina pectoris Is this a current diagnosis for this admission?: Yes (5) High output ileostomy Is this a current diagnosis for this admission?: Yes (6) Morbid obesity Is this a current diagnosis for this admission?: Yes (7) Chronic systolic heart failure Is this a current diagnosis for this admission?: Yes (8) Diabetes mellitus Qualifiers: Diabetes mellitus type: type 2 Diabetes mellitus ocean transportation intermediary insulin use: with ocean transportation intermediary use Diabetes mellitus complication status: with kidney complications Diabetes mellitus complication detail: with chronic kidney disease Chronic kidney disease stage: stage 3 (moderate) Qualified Code(s): E11.22 - Type 2 diabetes mellitus with diabetic chronic kidney disease; N18.3 - Chronic kidney disease, stage 3 (moderate); Z79.4 - director long term care (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
[2020-03-22] MEDS: ATORVASTATIN CALCIUM 10 MG TABLET PO SCH (22:00)
[2020-03-23] MEDS: HEPARIN SOD (PORCINE) 5,000 UNIT/ML 1 ML VIAL SUBCUT SCH ×3 (05:59→22:46)
[2020-03-23] MEDS: HYDROMORPHONE HCL INJ/PF 2 MG/ML AMPULE IV PRN ×3 (06:00→18:15)
[2020-03-23] MEDS: PREGABALIN 50 MG CAPSULE PO SCH ×3 (06:00→23:01)
[2020-03-23] MEDS: SODIUM BICARBONATE 650 MG TABLET PO SCH ×3 (06:00→23:01)
[2020-03-23] MEDS: INSULIN LISPRO 100 UNIT/ML 3 ML VIAL SUBCUT SCH ×3 (08:01→16:45)
[2020-03-23] MEDS: LINEZOLID 600 MG/300 ML RTUPB IV SCH ×2 (09:22→23:46)
[2020-03-23] MEDS: SITAGLIPTIN PHOSPHATE 50 MG TABLET PO SCH (09:23)
[2020-03-23] MEDS: MAGNESIUM OXIDE 400 MG TABLET PO SCH (09:23)
[2020-03-23] MEDS: INSULIN GLARGINE,HUM.REC.ANLOG 1,000 UNIT/10 ML VIAL SUBCUT SCH ×2 (09:23→23:01)
[2020-03-23] MEDS: CALCITRIOL 0.25 MCG CAPSULE PO SCH (09:24)
[2020-03-23] MEDS: METOPROLOL SUCCINATE 50 MG TAB.SR.24H PO SCH (09:24)
[2020-03-23] MEDS: HYDRALAZINE HCL 50 MG TABLET PO SCH ×3 (09:24→17:25)
[2020-03-23] MEDS: ASPIRIN 81 MG TABLET, CHEWABLE PO SCH (09:24)
[2020-03-23] MEDS: ALLOPURINOL 100 MG TABLET PO SCH (09:24)
[2020-03-23] MEDS: CLOBETASOL PROPIONATE 0.05% CREAM 15 GM TP SCH ×2 (09:25→22:59)
[2020-03-23] MEDS: CHOLESTYRAMINE 4 GM PACKET PO SCH ×2 (09:25→23:04)
[2020-03-23] MEDS: CLOTRIMAZOLE 1% CREAM 15 GM TP SCH ×2 (09:25→22:59)
[2020-03-23] MEDS: NYSTATIN TOPICAL POWDER 15 GM TP SCH ×2 (09:26→23:00)
[2020-03-23] MEDS: CEFEPIME HCL 2 GM in DEXTROSE 5%-WATER 50 ML IV SCH ×2 (11:21→23:00)
--- NOTE | 2020-03-23 13:20 | PDOC PROGRESS REPORT ---
Subjective Progress Note for:: 03/23/20 Subjective:: Patient seen by the bedside, the blood pressure is somewhat elevated, yesterday she had hemoptysis, CT chest was done revealed pneumonia Reason For Visit: [facility] PNEUMON[facility] Physical Exam Vital Signs: Temp Pulse Resp BP Pulse Ox 98.0 F 75 22 H 170/101 H 92 03/23/20 11:51 03/23/20 11:51 03/23/20 11:51 03/23/20 11:51 03/23/20 11:51 Intake & Output 03/22/20 03/23/20 03/24/20 06:59 06:59 06:59 Intake Total 3707 2940 350 Output Total 2875 3925 Balance 832 -985 350 Weight 118.9 kg 116.6 kg Results Laboratory Results: 03/22/20 07:45 03/22/20 07:45 03/19/20 16:52 Blood Blood Culture (PCR) - Final Staphylococcus Species 03/19/20 16:52 Blood Blood Culture - Final Staphylococcus Epidermidis 03/19/20 03/19/20 03/19/20 16:05 23:21 23:21 Creatine Kinase 132 Troponin I 0.025 0.030 NT-Pro-B Natriuret Pep 3170 H Impressions: Chest X-Ray 03/19/20 16:21 IMPRESSION: Probable vascular congestion with small left effusion. Similar findings were noted on prior study. Chest CT 03/22/20 00:00 IMPRESSION: Multifocal patchy consolidative opacity located about the basilar segments of both lower lobes with elements of tree-in-bud and groundglass opacity. Additional mild groundglass opacity within the left upper lobe. Overall, findings are most suspicious for an atypical infectious/inflammatory process/multifocal pneumonia. Short interval follow-up to clearing is recommended (3 months) to exclude a more sinister process such as malignancy. Mediastinal lymphadenopathy, likely reactive. Additional mildly enlarged stephani hepatic lymph node is indeterminate though appears similar to the previous exam dated 04/16/2019. Cholelithiasis. Indeterminate intermediate density lesion emanating from the upper pole of the right kidney. Correlate with retroperitoneal ultrasound. TECHNICAL DOCUMENTATION: Quality ID # [id number]: Final reports with documentation of one or more dose reduction techniques (e.g., Automated exposure control, adjustment of the mA and/or kV according to patient size, use of iterative reconstruction technique) copyright 2011 [employer]- All Rights Reserved Assessment & Plan - Diagnosis (1) Acute hypoxemic respiratory failure Is this a current diagnosis for this admission?: Yes Plan: Continue supplemental oxygen via nasal cannula (2) Healthcare-associated pneumonia Is this a current diagnosis for this admission?: Yes Plan: Continue IV antibiotic (3) Chronic kidney disease, stage 3 Is this a current diagnosis for this admission?: Yes (4) Coronary artery disease Qualifiers: Coronary Disease-Associated Artery/Lesion type: unspecified vessel or lesion type [place] vs. 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: with termite exterminator use Diabetes mellitus complication status: with kidney complications Diabetes mellitus complication detail: with chronic kidney disease Chronic kidney disease stage: stage 3 (moderate) Qualified Code(s): E11.22 - Type 2 diabetes mellitus with diabetic chronic kidney disease; N18.3 - Chronic kidney disease, stage 3 (moderate); 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 Start hydralazine 50 mg p.o. every 8 hours presently on metoprolol 20 mg p.o. daily - Time Time Spent with patient: 35 or more minutes Level of Care: IMCU Medications reviewed and adjusted accordingly: Yes Anticipated discharge: Home Within: Other - within 142 hours
[2020-03-23] MEDS: RINGERS SOLUTION,LACTATED 1,000 ML IV PRN (14:20)
[2020-03-23] MEDS: AMLODIPINE BESYLATE 10 MG TABLET PO SCH (14:24)
[2020-03-23] MEDS: ATORVASTATIN CALCIUM 10 MG TABLET PO SCH (23:01)
[2020-03-24] MEDS: HYDROMORPHONE HCL INJ/PF 2 MG/ML AMPULE IV PRN ×4 (00:24→19:25)
[2020-03-24] MEDS: HEPARIN SOD (PORCINE) 5,000 UNIT/ML 1 ML VIAL SUBCUT SCH ×3 (06:04→22:01)
[2020-03-24] MEDS: PREGABALIN 50 MG CAPSULE PO SCH ×3 (06:09→22:16)
[2020-03-24] MEDS: SODIUM BICARBONATE 650 MG TABLET PO SCH ×3 (06:09→22:16)
[2020-03-24] MEDS: RINGERS SOLUTION,LACTATED 1,000 ML IV PRN ×2 (06:09→22:19)
[2020-03-24] MEDS: INSULIN LISPRO 100 UNIT/ML 3 ML VIAL SUBCUT SCH ×3 (08:05→16:59)
[2020-03-24] MEDS: SITAGLIPTIN PHOSPHATE 50 MG TABLET PO SCH (10:43)
[2020-03-24] MEDS: METOPROLOL SUCCINATE 50 MG TAB.SR.24H PO SCH (10:43)
[2020-03-24] MEDS: AMLODIPINE BESYLATE 10 MG TABLET PO SCH (10:43)
[2020-03-24] MEDS: ASPIRIN 81 MG TABLET, CHEWABLE PO SCH (10:43)
[2020-03-24] MEDS: CALCITRIOL 0.25 MCG CAPSULE PO SCH (10:43)
[2020-03-24] MEDS: MAGNESIUM OXIDE 400 MG TABLET PO SCH (10:43)
[2020-03-24] MEDS: HYDRALAZINE HCL 50 MG TABLET PO SCH ×3 (10:43→17:17)
[2020-03-24] MEDS: ALLOPURINOL 100 MG TABLET PO SCH (10:44)
[2020-03-24] MEDS: CHOLESTYRAMINE 4 GM PACKET PO SCH ×2 (10:44→22:18)
[2020-03-24] MEDS: INSULIN GLARGINE,HUM.REC.ANLOG 1,000 UNIT/10 ML VIAL SUBCUT SCH ×2 (10:44→22:02)
[2020-03-24] MEDS: NYSTATIN TOPICAL POWDER 15 GM TP SCH ×2 (10:49→22:17)
[2020-03-24] MEDS: CLOTRIMAZOLE 1% CREAM 15 GM TP SCH ×2 (10:50→22:17)
[2020-03-24] MEDS: CLOBETASOL PROPIONATE 0.05% CREAM 15 GM TP SCH ×2 (10:50→22:16)
[2020-03-24] MEDS: CEFEPIME HCL 2 GM in DEXTROSE 5%-WATER 50 ML IV SCH ×2 (11:17→22:16)
[2020-03-24] MEDS: LINEZOLID 600 MG/300 ML RTUPB IV SCH ×2 (11:50→23:21)
--- NOTE | 2020-03-24 13:54 | PDOC PROGRESS REPORT ---
Subjective Progress Note for:: 03/24/20 Subjective:: Patient seen by the bedside, the sputum culture grew MRSA, patient already on Zyvox, she has hemoptysis, improving the duration of treatment for MRSA pneumonia complicated by bacteremia is typically minimum of 2 weeks, she has no bacteremia but she has recurrent pneumonia, will treat for 2 weeks. No minimal but she has recurrence admission for pneumonia Reason For Visit: [facility] PNEUMON[facility] Physical Exam Vital Signs: Temp Pulse Resp BP Pulse Ox 97.9 F 72 20 147/81 H 97 03/24/20 11:23 03/24/20 11:23 03/24/20 11:23 03/24/20 11:23 03/24/20 11:23 Intake & Output 03/23/20 03/24/20 03/25/20 06:59 06:59 06:59 Intake Total 2940 3282 170 Output Total 3925 1900 850 Balance -985 1382 -680 Weight 116.6 kg 116.6 kg General appearance: PRESENT: no acute distress Eye exam: PRESENT: PERRLA Respiratory exam: PRESENT: clear to auscultation stephen Cardiovascular exam: PRESENT: +S1, +S2 GI/Abdominal exam: PRESENT: soft Neurological exam: PRESENT: alert, CN II-XII grossly intact Results Laboratory Results: 03/22/20 07:45 03/22/20 07:45 03/20/20 14:30 Sputum Gram Stain - Final 03/20/20 14:30 Sputum Sputum Culture - Final Mrsa (Meth Resis Staph Aureus) C.albicans/C.dubliniensis Normal Graciela Absent 03/19/20 03/19/20 03/19/20 16:05 23:21 23:21 Creatine Kinase 132 Troponin I 0.025 0.030 NT-Pro-B Natriuret Pep 3170 H Impressions: Chest X-Ray 03/19/20 16:21 IMPRESSION: Probable vascular congestion with small left effusion. Similar findings were noted on prior study. Chest CT 03/22/20 00:00 IMPRESSION: Multifocal patchy consolidative opacity located about the basilar segments of both lower lobes with elements of tree-in-bud and groundglass opacity. Additional mild groundglass opacity within the left upper lobe. Overall, findings are most suspicious for an atypical infectious/inflammatory process/multifocal pneumonia. Short interval follow-up to clearing is recommended (3 months) to exclude a more sinister process such as malignancy. Mediastinal lymphadenopathy, likely reactive. Additional mildly enlarged stephani hepatic lymph node is indeterminate though appears similar to the previous exam dated 04/16/2019. Cholelithiasis. Indeterminate intermediate density lesion emanating from the upper pole of the right kidney. Correlate with retroperitoneal ultrasound. TECHNICAL DOCUMENTATION: Quality ID # [id number]: Final reports with documentation of one or more dose reduction techniques (e.g., Automated exposure control, adjustment of the mA and/or kV according to patient size, use of iterative reconstruction technique) copyright 2011 [employer]- All Rights Reserved Assessment & Plan - Diagnosis (1) MRSA pneumonia Qualifiers: Laterality: unspecified laterality Lung location: unspecified part of lung Qualified Code(s): J15.212 - Pneumonia due to Methicillin resistant Staphylo coccus aureus Is this a current diagnosis for this admission?: Yes Plan: Continue Zyvox for a total of 2 weeks (2) Acute hypoxemic respiratory failure Is this a current diagnosis for this admission?: Yes Plan: Patient still requires supplemental oxygen, 2 L nasal cannula (3) Healthcare-associated pneumonia Is this a current diagnosis for this admission?: Yes Plan: Continue IV antibiotic (4) Chronic kidney disease, stage 3 Is this a current diagnosis for this admission?: Yes (5) Coronary artery disease Qualifiers: Coronary Disease-Associated Artery/Lesion type: unspecified vessel or lesion type [place] vs. 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 insulin use: with mcfp use Diabetes mellitus complication status: with kidney complications Diabetes mellitus complication detail: with chronic kidney disease Chronic kidney disease stage: stage 3 (moderate) Qualified Code(s): E11.22 - Type 2 diabetes mellitus with diabetic chronic kidney disease; N18.3 - Chronic kidney disease, stage 3 (moderate); Z79.4 - senior care (current) use of insulin Is this a current diagnosis for this admission?: Yes (10) Hypertensive urgency Is this a current diagnosis for this admission?: Yes Plan: Blood pressure better controlled today - Time Time Spent with patient: 35 or more minutes Level of Care: IMCU Medications reviewed and adjusted accordingly: Yes Anticipated discharge: Home Within: Other - 2 weeks
[2020-03-24] MEDS: ATORVASTATIN CALCIUM 10 MG TABLET PO SCH (22:16)
[2020-03-25] MEDS: HYDROMORPHONE HCL INJ/PF 2 MG/ML AMPULE IV PRN ×4 (01:28→20:05)
[2020-03-25] MEDS: HEPARIN SOD (PORCINE) 5,000 UNIT/ML 1 ML VIAL SUBCUT SCH ×3 (05:53→22:55)
[2020-03-25] MEDS: PREGABALIN 50 MG CAPSULE PO SCH ×3 (05:55→22:53)
[2020-03-25] MEDS: SODIUM BICARBONATE 650 MG TABLET PO SCH ×3 (05:55→22:53)
[2020-03-25] MEDS: INSULIN LISPRO 100 UNIT/ML 3 ML VIAL SUBCUT SCH ×3 (08:33→16:40)
[2020-03-25] MEDS: INSULIN GLARGINE,HUM.REC.ANLOG 1,000 UNIT/10 ML VIAL SUBCUT SCH ×2 (10:00→23:03)
[2020-03-25] MEDS: CHOLESTYRAMINE 4 GM PACKET PO SCH ×2 (10:00→22:56)
[2020-03-25] MEDS: CEFEPIME HCL 2 GM in DEXTROSE 5%-WATER 50 ML IV SCH ×2 (10:01→22:52)
[2020-03-25] MEDS: MAGNESIUM OXIDE 400 MG TABLET PO SCH (10:01)
[2020-03-25] MEDS: METOPROLOL SUCCINATE 50 MG TAB.SR.24H PO SCH (10:03)
[2020-03-25] MEDS: SITAGLIPTIN PHOSPHATE 50 MG TABLET PO SCH (10:03)
[2020-03-25] MEDS: HYDRALAZINE HCL 50 MG TABLET PO SCH ×3 (10:03→17:16)
[2020-03-25] MEDS: CALCITRIOL 0.25 MCG CAPSULE PO SCH (10:03)
[2020-03-25] MEDS: ALLOPURINOL 100 MG TABLET PO SCH (10:03)
[2020-03-25] MEDS: ASPIRIN 81 MG TABLET, CHEWABLE PO SCH (10:03)
[2020-03-25] MEDS: AMLODIPINE BESYLATE 10 MG TABLET PO SCH (10:03)
[2020-03-25] MEDS: CLOBETASOL PROPIONATE 0.05% CREAM 15 GM TP SCH ×2 (10:11→23:18)
[2020-03-25] MEDS: CLOTRIMAZOLE 1% CREAM 15 GM TP SCH ×2 (10:12→23:16)
[2020-03-25] MEDS: NYSTATIN TOPICAL POWDER 15 GM TP SCH ×2 (10:12→23:15)
[2020-03-25] MEDS: LINEZOLID 600 MG/300 ML RTUPB IV SCH ×2 (11:02→22:52)
--- NOTE | 2020-03-25 12:59 | PDOC PROGRESS REPORT ---
Subjective Progress Note for:: 03/25/20 Subjective:: Patient seen by the bedside, the sputum culture grew MRSA, patient already on Zyvox, she has hemoptysis, improving, the duration of treatment for MRSA pneumonia complicated by bacteremia is typically minimum of 2 weeks, she has no bacteremia but she has recurrent pneumonia, will treat for 2 weeks. she has recurrence admission for pneumonia Patient seen by the bedside I explained to him the plan of care Reason For Visit: [facility]ARE [facility] PNEUMONIA Physical Exam Vital Signs: Temp Pulse Resp BP Pulse Ox 98.4 F 98 19 166/88 H 98 03/25/20 11:19 03/25/20 11:19 03/25/20 11:19 03/25/20 11:19 03/25/20 11:19 Intake & Output 03/24/20 03/25/20 03/26/20 06:59 06:59 06:59 Intake Total 3282 1812 590 Output Total 1900 2050 Balance 1382 -238 590 Weight 116.6 kg 117.6 kg General appearance: PRESENT: no acute distress Eye exam: PRESENT: PERRLA Respiratory exam: PRESENT: clear to auscultation stephen Cardiovascular exam: PRESENT: +S1, +S2 GI/Abdominal exam: PRESENT: soft Results Laboratory Results: 03/22/20 07:45 03/22/20 07:45 03/19/20 16:05 Blood Blood Culture - Final NO GROWTH IN 5 DAYS 03/19/20 03/19/20 03/19/20 16:05 23:21 23:21 Creatine Kinase 132 Troponin I 0.025 0.030 NT-Pro-B Natriuret Pep 3170 H Impressions: Chest X-Ray 03/19/20 16:21 IMPRESSION: Probable vascular congestion with small left effusion. Similar findings were noted on prior study. Chest CT 03/22/20 00:00 IMPRESSION: Multifocal patchy consolidative opacity located about the basilar segments of both lower lobes with elements of tree-in-bud and groundglass opacity. Additional mild groundglass opacity within the left upper lobe. Overall, findings are most suspicious for an atypical infectious/inflammatory process/multifocal pneumonia. Short interval follow-up to clearing is recommended (3 months) to exclude a more sinister process such as malignancy. Mediastinal lymphadenopathy, likely reactive. Additional mildly enlarged stephani hepatic lymph node is indeterminate though appears similar to the previous exam dated 04/16/2019. Cholelithiasis. Indeterminate intermediate density lesion emanating from the upper pole of the right kidney. Correlate with retroperitoneal ultrasound. TECHNICAL DOCUMENTATION: Quality ID # [id number]: Final reports with documentation of one or more dose reduction techniques (e.g., Automated exposure control, adjustment of the mA and/or kV according to patient size, use of iterative reconstruction technique) copyright 2011 [employer]- All Rights Reserved Assessment & Plan - Diagnosis (1) MRSA pneumonia Qualifiers: Laterality: unspecified laterality Lung location: unspecified part of lung Qualified Code(s): J15.212 - Pneumonia due to Methicillin resistant Staphylo coccus aureus Is this a current diagnosis for this admission?: Yes Plan: Continue Zyvox for a total of 2 weeks (2) Acute hypoxemic respiratory failure Is this a current diagnosis for this admission?: Yes Plan: Patient still requires supplemental oxygen, 2 L nasal cannula (3) Healthcare-associated pneumonia Is this a current diagnosis for this admission?: Yes Plan: Continue IV antibiotic (4) Chronic kidney disease, stage 3 Is this a current diagnosis for this admission?: Yes (5) Coronary artery disease Qualifiers: Coronary Disease-Associated Artery/Lesion type: unspecified vessel or lesion type [place] vs. transplanted heart: [place] heart Associated angina: without angina Qualified Code(s): I25.10 - Atherosclerotic heart disease of [place] coronary artery without angina pectoris Is this a current diagnosis for this admission?: Yes (6) High output ileostomy Is this a current diagnosis for this admission?: Yes (7) Morbid obesity Is this a current diagnosis for this admission?: Yes (8) Chronic systolic heart failure Is this a current diagnosis for this admission?: Yes (9) Diabetes mellitus Qualifiers: Diabetes mellitus type: type 2 Diabetes mellitus long term care phlebotomist insulin use: with long term care phlebotomist use Diabetes mellitus complication status: with kidney complications Diabetes mellitus complication detail: with chronic kidney disease Chronic kidney disease stage: stage 3 (moderate) Qualified Code(s): E11.22 - Type 2 diabetes mellitus with diabetic chronic kidney disease; N18.3 - Chronic kidney disease, stage 3 (moderate); Z79.4 - alf (current) use of insulin Is this a current diagnosis for this admission?: Yes (10) Hypertensive urgency Is this a current diagnosis for this admission?: Yes - Time Time Spent with patient: 35 or more minutes Level of Care: IMCU Medications reviewed and adjusted accordingly: Yes Anticipated discharge: Home Within: Other
[2020-03-25] MEDS: RINGERS SOLUTION,LACTATED 1,000 ML IV PRN (17:16)
[2020-03-25] MEDS: ATORVASTATIN CALCIUM 10 MG TABLET PO SCH (22:53)
[2020-03-26] MEDS: HYDROMORPHONE HCL INJ/PF 2 MG/ML AMPULE IV PRN ×5 (02:05→22:21)
[2020-03-26] MEDS: HEPARIN SOD (PORCINE) 5,000 UNIT/ML 1 ML VIAL SUBCUT SCH ×3 (05:22→21:27)
[2020-03-26] MEDS: PREGABALIN 50 MG CAPSULE PO SCH ×3 (05:50→21:25)
[2020-03-26] MEDS: SODIUM BICARBONATE 650 MG TABLET PO SCH ×3 (05:50→21:25)
[2020-03-26] MEDS: INSULIN LISPRO 100 UNIT/ML 3 ML VIAL SUBCUT SCH ×3 (08:05→17:16)
[2020-03-26 09:00] LABS: ABSOLUTE BASOPHILS # (AUTO) 0.1 10^3/uL (0.0-0.2); ABSOLUTE EOSINOPHILS # (AUTO) 0.3 10^3/uL (0.0-0.6); ABSOLUTE LYMPHOCYTES (AUTO) 1.3 10^3/uL (0.5-4.7); ABSOLUTE MONOCYTES (AUTO) 0.8 10^3/uL (0.1-1.4); ABSOLUTE NEUT (AUTO) 5.4 10^3/uL (1.7-8.2); BASOPHILS % (AUTO) 0.9 % (0-2); EOSINOPHILS % (AUTO) 3.5 % (0-6); HEMATOCRIT 34.6 % (36.0-47.0); LYMPHOCYTES % (AUTO) 16.8 % (13-45); MEAN CORPUSCULAR HEMOGLOBIN 27.9 pg (27.0-33.4); MEAN CORPUSCULAR HGB CONC 31.9 g/dL (32.0-36.0); MEAN CORPUSCULAR VOLUME 88 fl (80-97); MONOCYTES % (AUTO) 9.8 % (3-13); RED BLOOD COUNT 3.95 10^6/uL (3.72-5.28); RED CELL DISTRIBUTION WIDTH 17.5 % (11.5-14.0); TOTAL CELLS COUNTED % (AUTO) 100 %; WHITE BLOOD COUNT 7.8 10^3/uL (4.0-10.5)
[2020-03-26 09:15] LABS: ALBUMIN 3.5 g/dL (3.5-5.0); ALKALINE PHOSPHATASE 69 U/L (38-126); ANION GAP 5 (5-19); ASPARTATE AMINO TRANSFERASE 41 U/L (14-36); BILIRUBIN,TOTAL 0.6 mg/dL (0.2-1.3); BLOOD UREA NITROGEN 23 mg/dL (7-20); CALCIUM 9.5 mg/dL (8.4-10.2); CARBON DIOXIDE 31 mmol/L (22-30); CHLORIDE 101 mmol/L (98-107); GLUCOSE 119 mg/dL (75-110); TOTAL PROTEIN 7.1 g/dL (6.3-8.2)
[2020-03-26 09:17] LABS: PLATELET COUNT 92 10^3/uL (150-450)
[2020-03-26 09:20] LABS: POTASSIUM 4.3 mmol/L (3.6-5.0)
[2020-03-26] MEDS: CEFEPIME HCL 2 GM in DEXTROSE 5%-WATER 50 ML IV SCH ×2 (09:35→21:25)
[2020-03-26] MEDS: LINEZOLID 600 MG/300 ML RTUPB IV SCH ×2 (09:36→21:26)
[2020-03-26] MEDS: MAGNESIUM OXIDE 400 MG TABLET PO SCH (09:37)
[2020-03-26] MEDS: SITAGLIPTIN PHOSPHATE 50 MG TABLET PO SCH (09:37)
[2020-03-26] MEDS: ALLOPURINOL 100 MG TABLET PO SCH (09:37)
[2020-03-26] MEDS: METOPROLOL SUCCINATE 50 MG TAB.SR.24H PO SCH (09:37)
[2020-03-26] MEDS: AMLODIPINE BESYLATE 10 MG TABLET PO SCH (09:37)
[2020-03-26] MEDS: CHOLESTYRAMINE 4 GM PACKET PO SCH (09:38)
[2020-03-26] MEDS: CALCITRIOL 0.25 MCG CAPSULE PO SCH (09:38)
[2020-03-26] MEDS: NYSTATIN TOPICAL POWDER 15 GM TP SCH ×2 (09:38→21:28)
[2020-03-26] MEDS: HYDRALAZINE HCL 50 MG TABLET PO SCH ×3 (09:38→18:15)
[2020-03-26] MEDS: INSULIN GLARGINE,HUM.REC.ANLOG 1,000 UNIT/10 ML VIAL SUBCUT SCH ×2 (09:39→21:27)
[2020-03-26] MEDS: ASPIRIN 81 MG TABLET, CHEWABLE PO SCH (09:39)
[2020-03-26] MEDS: CLOTRIMAZOLE 1% CREAM 15 GM TP SCH ×2 (09:39→21:28)
[2020-03-26] MEDS: CLOBETASOL PROPIONATE 0.05% CREAM 15 GM TP SCH ×2 (09:40→21:29)
[2020-03-26] MEDS: RINGERS SOLUTION,LACTATED 1,000 ML IV PRN (11:52)
--- NOTE | 2020-03-26 15:35 | PDOC PROGRESS REPORT ---
Subjective Progress Note for:: 03/26/20 Subjective:: Patient seen by the bedside, she has MRSA pneumonia with hemoptysis, responding to intravenous antibiotics Reason For Visit: [facility]ARE [facility] PNEUMONIA Physical Exam Vital Signs: Temp Pulse Resp BP Pulse Ox 98.0 F 72 19 141/72 H 100 03/26/20 11:34 03/26/20 11:34 03/26/20 07:56 03/26/20 11:34 03/26/20 11:34 Intake & Output 03/25/20 03/26/20 03/27/20 06:59 06:59 06:59 Intake Total 1812 3330 1350 Output Total 2050 2450 Balance -266 371 0345 Weight 117.6 kg 117.9 kg General appearance: PRESENT: no acute distress Eye exam: PRESENT: PERRLA Respiratory exam: PRESENT: clear to auscultation stephen Cardiovascular exam: PRESENT: +S1, +S2 GI/Abdominal exam: PRESENT: soft Neurological exam: PRESENT: alert Results Laboratory Results: 03/26/20 08:45 03/26/20 08:45 03/26/20 03/26/20 08:45 08:45 WBC 7.8 RBC 3.95 Hgb 11.0 L Hct 34.6 L MCV 88 MCH 27.9 MCHC 31.9 L RDW 17.5 H Plt Count 92 L Seg Neutrophils % 69.0 Sodium 136.8 L Potassium 4.3 Chloride 101 Carbon Dioxide 31 H Anion Gap 5 BUN 23 H Creatinine 1.82 H Est GFR ( Amer) 34 L Glucose 119 H Calcium 9.5 Total Bilirubin 0.6 AST 41 H Alkaline Phosphatase 69 Total Protein 7.1 Albumin 3.5 03/19/20 03/19/20 03/19/20 16:05 23:21 23:21 Creatine Kinase 132 Troponin I 0.025 0.030 NT-Pro-B Natriuret Pep 3170 H Impressions: Chest X-Ray 03/19/20 16:21 IMPRESSION: Probable vascular congestion with small left effusion. Similar findings were noted on prior study. Chest CT 03/22/20 00:00 IMPRESSION: Multifocal patchy consolidative opacity located about the basilar segments of both lower lobes with elements of tree-in-bud and groundglass opacity. Additional mild groundglass opacity within the left upper lobe. Overall, findings are most suspicious for an atypical infectious/inflammatory process/multifocal pneumonia. Short interval follow-up to clearing is recommended (3 months) to exclude a more sinister process such as malignancy. Mediastinal lymphadenopathy, likely reactive. Additional mildly enlarged stephani hepatic lymph node is indeterminate though appears similar to the previous exam dated 04/16/2019. Cholelithiasis. Indeterminate intermediate density lesion emanating from the upper pole of the right kidney. Correlate with retroperitoneal ultrasound. TECHNICAL DOCUMENTATION: Quality ID # [id number]: Final reports with documentation of one or more dose reduction techniques (e.g., Automated exposure control, adjustment of the mA and/or kV according to patient size, use of iterative reconstruction technique) copyright 2011 [employer]- All Rights Reserved Assessment & Plan - Diagnosis (1) MRSA pneumonia Qualifiers: Laterality: unspecified laterality Lung location: unspecified part of lung Qualified Code(s): J15.212 - Pneumonia due to Methicillin resistant Staphylococcus aureus Is this a current diagnosis for this admission?: Yes Plan: Continue Zyvox for a total of 2 weeks (2) Acute hypoxemic respiratory failure Is this a current diagnosis for this admission?: Yes Plan: Patient still requires supplemental oxygen, 2 L nasal cannula (3) Healthcare-associated pneumonia Is this a current diagnosis for this admission?: Yes (4) Chronic kidney disease, stage 3 Is this a current diagnosis for this admission?: Yes (5) Coronary artery disease Qualifiers: Coronary Disease-Associated Artery/Lesion type: unspecified vessel or lesion type [place] vs. 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 insulin use: with chcf use Diabetes mellitus complication status: with kidney co mplications Diabetes mellitus complication detail: with chronic kidney disease Chronic kidney disease stage: stage 3 (moderate) Qualified Code(s): E11.22 - Type 2 diabetes mellitus with diabetic chronic kidney disease; N18.3 - Chronic kidney disease, stage 3 (moderate); Z79.4 - oysterman (current) use of insulin Is this a current diagnosis for this admission?: Yes (10) Hypertensive urgency Is this a current diagnosis for this admission?: Yes - Time Time Spent with patient: 25-34 minutes Level of Care: IMCU Anticipated discharge: Home Within: Other
[2020-03-26] MEDS: ATORVASTATIN CALCIUM 10 MG TABLET PO SCH (21:25)
[2020-03-27] MEDS: HYDROMORPHONE HCL INJ/PF 2 MG/ML AMPULE IV PRN ×5 (04:04→22:44)
[2020-03-27] MEDS: SODIUM BICARBONATE 650 MG TABLET PO SCH ×3 (05:28→21:17)
[2020-03-27] MEDS: PREGABALIN 50 MG CAPSULE PO SCH ×3 (05:28→21:18)
[2020-03-27] MEDS: HEPARIN SOD (PORCINE) 5,000 UNIT/ML 1 ML VIAL SUBCUT SCH ×3 (05:34→21:12)
[2020-03-27 05:53] LABS: ABSOLUTE BASOPHILS # (AUTO) 0.1 10^3/uL (0.0-0.2); ABSOLUTE EOSINOPHILS # (AUTO) 0.3 10^3/uL (0.0-0.6); ABSOLUTE LYMPHOCYTES (AUTO) 1.1 10^3/uL (0.5-4.7); ABSOLUTE MONOCYTES (AUTO) 0.7 10^3/uL (0.1-1.4); ABSOLUTE NEUT (AUTO) 5.7 10^3/uL (1.7-8.2); BASOPHILS % (AUTO) 0.8 % (0-2); EOSINOPHILS % (AUTO) 3.3 % (0-6); HEMATOCRIT 34.4 % (36.0-47.0); HEMOGLOBIN 11.3 g/dL (12.0-15.5); LYMPHOCYTES % (AUTO) 14.1 % (13-45); MEAN CORPUSCULAR HEMOGLOBIN 28.4 pg (27.0-33.4); MEAN CORPUSCULAR HGB CONC 32.7 g/dL (32.0-36.0); MEAN CORPUSCULAR VOLUME 87 fl (80-97); MONOCYTES % (AUTO) 9.4 % (3-13); PLATELET COUNT 100 10^3/uL (150-450); RED BLOOD COUNT 3.96 10^6/uL (3.72-5.28); RED CELL DISTRIBUTION WIDTH 17.9 % (11.5-14.0); SEGMENTED NEUTROPHILS % (AUTO) 72.4 % (42-78); TOTAL CELLS COUNTED % (AUTO) 100 %; WHITE BLOOD COUNT 7.9 10^3/uL (4.0-10.5)
[2020-03-27 06:11] LABS: ALBUMIN 3.4 g/dL (3.5-5.0); ALKALINE PHOSPHATASE 73 U/L (38-126); ANION GAP 5 (5-19); ASPARTATE AMINO TRANSFERASE 39 U/L (14-36); BILIRUBIN,DIRECT 0.1 mg/dL (0.0-0.4); BILIRUBIN,TOTAL 0.6 mg/dL (0.2-1.3); BLOOD UREA NITROGEN 21 mg/dL (7-20); CALCIUM 9.8 mg/dL (8.4-10.2); CARBON DIOXIDE 29 mmol/L (22-30); CHLORIDE 101 mmol/L (98-107); GLUCOSE 116 mg/dL (75-110); POTASSIUM 4.2 mmol/L (3.6-5.0)
[2020-03-27] MEDS: RINGERS SOLUTION,LACTATED 1,000 ML IV PRN ×2 (06:24→22:44)
[2020-03-27] MEDS: INSULIN LISPRO 100 UNIT/ML 3 ML VIAL SUBCUT SCH ×3 (08:51→17:12)
[2020-03-27] MEDS: INSULIN GLARGINE,HUM.REC.ANLOG 1,000 UNIT/10 ML VIAL SUBCUT SCH ×2 (09:54→21:12)
[2020-03-27] MEDS: AMLODIPINE BESYLATE 10 MG TABLET PO SCH (10:02)
[2020-03-27] MEDS: CALCITRIOL 0.25 MCG CAPSULE PO SCH (10:03)
[2020-03-27] MEDS: SITAGLIPTIN PHOSPHATE 50 MG TABLET PO SCH (10:03)
[2020-03-27] MEDS: ASPIRIN 81 MG TABLET, CHEWABLE PO SCH (10:03)
[2020-03-27] MEDS: ALLOPURINOL 100 MG TABLET PO SCH (10:03)
[2020-03-27] MEDS: HYDRALAZINE HCL 50 MG TABLET PO SCH ×3 (10:03→17:13)
[2020-03-27] MEDS: METOPROLOL SUCCINATE 50 MG TAB.SR.24H PO SCH (10:03)
[2020-03-27] MEDS: MAGNESIUM OXIDE 400 MG TABLET PO SCH (10:03)
[2020-03-27] MEDS: CLOBETASOL PROPIONATE 0.05% CREAM 15 GM TP SCH ×2 (10:04→21:13)
[2020-03-27] MEDS: LINEZOLID 600 MG/300 ML RTUPB IV SCH ×2 (10:04→21:18)
--- NOTE | 2020-03-27 17:19 | PDOC PROGRESS REPORT ---
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 Physical Exam Vital Signs: Temp Pulse Resp BP Pulse Ox 97.9 F 77 19 142/64 H 96 03/27/20 12:00 03/27/20 12:00 03/27/20 12:00 03/27/20 12:00 03/27/20 16:20 Intake & Output 03/26/20 03/27/20 03/28/20 06:59 06:59 06:59 Intake Total 3330 4444 300 Output Total 2450 3275 Balance 880 1169 300 Weight 117.9 kg 116.5 kg General appearance: PRESENT: no acute distress Eye exam: PRESENT: PERRLA Respiratory exam: PRESENT: clear to auscultation stephen Cardiovascular exam: PRESENT: +S1, +S2 Neurological exam: PRESENT: alert Results Laboratory Results: 03/27/20 05:25 03/27/20 05:25 03/27/20 03/27/20 05:25 05:25 WBC 7.9 RBC 3.96 Hgb 11.3 L Hct 34.4 L MCV 87 MCH 28.4 MCHC 32.7 RDW 17.9 H Plt Count 100 L Seg Neutrophils % 72.4 Sodium 134.6 L Potassium 4.2 Chloride 101 Carbon Dioxide 29 Anion Gap 5 BUN 21 H Creatinine 1.81 H Est GFR ( Amer) 34 L Glucose 116 H Calcium 9.8 Total Bilirubin 0.6 AST 39 H Alkaline Phosphatase 73 Total Protein 7.0 Albumin 3.4 L 03/19/20 03/19/20 03/19/20 16:05 23:21 23:21 Creatine Kinase 132 Troponin I 0.025 0.030 NT-Pro-B Natriuret Pep 3170 H Impressions: Chest X-Ray 03/19/20 16:21 IMPRESSION: Probable vascular congestion with small left effusion. Similar findings were noted on prior study. Chest CT 03/22/20 00:00 IMPRESSION: Multifocal patchy consolidative opacity located about the basilar segments of both lower lobes with elements of tree-in-bud and groundglass opacity. Additional mild groundglass opacity within the left upper lobe. Overall, findings are most suspicious for an atypical infectious/inflammatory process/multifocal pneumonia. Short interval follow-up to clearing is recommended (3 months) to exclude a more sinister process such as malignancy. Mediastinal lymphadenopathy, likely reactive. Additional mildly enlarged stephani hepatic lymph node is indeterminate though appears similar to the previous exam dated 04/16/2019. Cholelithiasis. Indeterminate intermediate density lesion emanating from the upper pole of the right kidney. Correlate with retroperitoneal ultrasound. TECHNICAL DOCUMENTATION: Quality ID # [id number]: Final reports with documentation of one or more dose reduction techniques (e.g., Automated exposure control, adjustment of the mA and/or kV according to patient size, use of iterative reconstruction technique) copyright 2011 [employer]- All Rights Reserved Assessment & Plan - Diagnosis (1) MRSA pneumonia Qualifiers: Laterality: unspecified laterality Lung location: unspecified part of lung Qualified Code(s): J15.212 - Pneumonia due to Methicillin resistant Staphylococcus aureus Is this a current diagnosis for this admission?: Yes Plan: Continue Zyvox for a total of 2 weeks (2) Acute hypoxemic respiratory failure Is this a current diagnosis for this admission?: Yes Plan: Patient still requires supplemental oxygen, 2 L nasal cannula (3) Healthcare-associated pneumonia Is this a current diagnosis for this admission?: Yes (4) Chronic kidney disease, stage 3 Is this a current diagnosis for this admission?: Yes (5) Coronary artery disease Qualifiers: Coronary Disease-Associated Artery/Lesion type: unspecified vessel or lesion type [place] vs. 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 insulin use: with intermodal owner operator truck driver use Diabetes mellitus complication status: with kidney complications Diabetes mellitus complication detail: with chronic kidney disease Chronic kidney disease stage: stage 3 (moderate) Qualified Code(s): E11.22 - Type 2 diabetes mellitus with diabetic chronic kidney disease; N18.3 - Chronic kidney disease, stage 3 (moderate); Z79.4 - buttermaker continuous churn (current) use of insulin Is this a current diagnosis for this admission?: Yes (10) Hypertensive urgency Is this a current diagnosis for this admission?: Yes - Time Time Spent with patient: 25-34 minutes Level of Care: IMCU Medications reviewed and adjusted accordingly: Yes Anticipated discharge: Home
[2020-03-27] MEDS: ATORVASTATIN CALCIUM 10 MG TABLET PO SCH (21:17)
[2020-03-28] MEDS: HYDROMORPHONE HCL INJ/PF 2 MG/ML AMPULE IV PRN ×5 (03:33→20:35)
[2020-03-28] MEDS: SODIUM BICARBONATE 650 MG TABLET PO SCH ×3 (06:02→22:02)
[2020-03-28] MEDS: PREGABALIN 50 MG CAPSULE PO SCH ×3 (06:02→22:02)
[2020-03-28] MEDS: HEPARIN SOD (PORCINE) 5,000 UNIT/ML 1 ML VIAL SUBCUT SCH ×3 (06:04→22:08)
[2020-03-28] MEDS: INSULIN LISPRO 100 UNIT/ML 3 ML VIAL SUBCUT SCH ×3 (07:59→16:36)
[2020-03-28] MEDS: CALCITRIOL 0.25 MCG CAPSULE PO SCH (09:37)
[2020-03-28] MEDS: MAGNESIUM OXIDE 400 MG TABLET PO SCH (09:38)
[2020-03-28] MEDS: HYDRALAZINE HCL 50 MG TABLET PO SCH ×3 (09:38→17:26)
[2020-03-28] MEDS: METOPROLOL SUCCINATE 50 MG TAB.SR.24H PO SCH (09:38)
[2020-03-28] MEDS: INSULIN GLARGINE,HUM.REC.ANLOG 1,000 UNIT/10 ML VIAL SUBCUT SCH ×2 (09:38→22:20)
[2020-03-28] MEDS: SITAGLIPTIN PHOSPHATE 50 MG TABLET PO SCH (09:38)
[2020-03-28] MEDS: ALLOPURINOL 100 MG TABLET PO SCH (09:38)
[2020-03-28] MEDS: AMLODIPINE BESYLATE 10 MG TABLET PO SCH (09:38)
[2020-03-28] MEDS: ASPIRIN 81 MG TABLET, CHEWABLE PO SCH (09:38)
[2020-03-28] MEDS: LINEZOLID 600 MG/300 ML RTUPB IV SCH ×2 (09:39→22:02)
[2020-03-28] MEDS: CLOBETASOL PROPIONATE 0.05% CREAM 15 GM TP SCH ×2 (09:40→22:09)
--- NOTE | 2020-03-28 20:49 | PDOC PROGRESS REPORT ---
Subjective Progress Note for:: 03/28/20 Subjective:: Patient seen by the bedside, she has MRSA pneumonia with hemoptysis on IV Zyvox, Zyvox is preferred to vancomycin because of her kidney disease, IV Zyvox is preferred to p.o. Zyvox because she she is total colectomy with high output ileostomy bag with unreliability of absorption of medication from the GI tract, on multiple occasions she has seen medications in the ileostomy bag. She has recurrent pneumonia with multiple hospitalization, it is felt that part of the reason could be from inadequate absorption of oral antibiotic Reason For Visit: HEALTHCARE ASSOCIATED PNEUMONIA Physical Exam Vital Signs: Temp Pulse Resp BP Pulse Ox 98.2 F 80 16 133/78 H 95 03/28/20 16:23 03/28/20 16:23 03/28/20 16:23 03/28/20 16:23 03/28/20 16:23 Intake & Output 03/27/20 03/28/20 03/29/20 06:59 06:59 06:59 Intake Total 4444 2832 2097 Output Total 3275 2100 1000 Balance 6333 296 4020 Weight 116.5 kg 116.4 kg General appearance: PRESENT: no acute distress Eye exam: PRESENT: PERRLA Respiratory exam: PRESENT: clear to auscultation stephen Cardiovascular exam: PRESENT: +S1, +S2 GI/Abdominal exam: PRESENT: soft Neurological exam: PRESENT: alert Results Laboratory Results: 03/27/20 05:25 03/27/20 05:25 03/19/20 03/19/20 03/19/20 16:05 23:21 23:21 Creatine Kinase 132 Troponin I 0.025 0.030 NT-Pro-B Natriuret Pep 3170 H Impressions: Chest X-Ray 03/19/20 16:21 IMPRESSION: Probable vascular congestion with small left effusion. Similar findings were noted on prior study. Chest CT 03/22/20 00:00 IMPRESSION: Multifocal patchy consolidative opacity located about the basilar segments of both lower lobes with elements of tree-in-bud and groundglass opacity. Additional mild groundglass opacity within the left upper lobe. Overall, findings are most suspicious for an atypical infectious/inflammatory process/multifocal pneumonia. Short interval follow-up to clearing is recommended (3 months) to exclude a more sinister process such as malignancy. Mediastinal lymphadenopathy, likely reactive. Additional mildly enlarged stephani hepatic lymph node is indeterminate though appears similar to the previous exam dated 04/16/2019. Cholelithiasis. Indeterminate intermediate density lesion emanating from the upper pole of the right kidney. Correlate with retroperitoneal ultrasound. TECHNICAL DOCUMENTATION: Quality ID # [id number]: Final reports with documentation of one or more dose reduction techniques (e.g., Automated exposure control, adjustment of the mA and/or kV according to patient size, use of iterative reconstruction technique) copyright 2011 [employer]- All Rights Reserved Assessment & Plan - Diagnosis (1) MRSA pneumonia Qualifiers: Laterality: unspecified laterality Lung location: unspecified part of lung Qualified Code(s): J15.212 - Pneumonia due to Methicillin resistant Staphylococcus aureus Is this a current diagnosis for this admission?: Yes Plan: Continue Zyvox for a total of 2 weeks (2) Acute hypoxemic respiratory failure Is this a current diagnosis for this admission?: Yes Plan: Patient still requires supplemental oxygen, 2 L nasal cannula (3) Healthcare-associated pneumonia Is this a current diagnosis for this admission?: Yes (4) Chronic kidney disease, stage 3 Is this a current diagnosis for this admission?: Yes (5) Coronary artery disease Qualifiers: Coronary Disease-Associated Artery/Lesion type: unspecified vessel or lesion type [place] vs. transplanted heart: [place] heart Associated angina: without angina Qualified Code(s): I25.10 - Atherosclerotic heart disease of [place] coronary artery without angina pectoris Is this a current diagnosis for this admission?: Yes (6) High output ileostomy Is this a current diagnosis for this admission?: Yes (7) Morbid obesity Is this a current diagnosis for this admission?: Yes (8) Chronic systolic heart failure Is this a current diagnosis for this admission?: Yes (9) Diabetes mellitus Qualifiers: Diabetes mellitus type: type 2 Diabetes mellitus termination clerk insulin use: with fci use Diabetes mellitus complication status: with kidney complications Diabetes mellitus complication detail: with chronic kidney disease Chronic kidney disease stage: stage 3 (moderate) Qualified Code(s): E11.22 - Type 2 diabetes mellitus with diabetic chronic kidney disease; N18.3 - Chronic kidney disease, stage 3 (moderate); Z79.4 - local company intermodal 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
[2020-03-28] MEDS: ATORVASTATIN CALCIUM 10 MG TABLET PO SCH (22:02)
[2020-03-28] MEDS: RINGERS SOLUTION,LACTATED 1,000 ML IV PRN (22:05)
[2020-03-29] MEDS: HYDROMORPHONE HCL INJ/PF 2 MG/ML AMPULE IV PRN ×6 (00:51→23:52)
[2020-03-29] MEDS: HEPARIN SOD (PORCINE) 5,000 UNIT/ML 1 ML VIAL SUBCUT SCH ×3 (05:41→21:39)
[2020-03-29] MEDS: PREGABALIN 50 MG CAPSULE PO SCH ×3 (05:44→21:50)
[2020-03-29] MEDS: SODIUM BICARBONATE 650 MG TABLET PO SCH ×3 (05:44→21:50)
[2020-03-29] MEDS: INSULIN LISPRO 100 UNIT/ML 3 ML VIAL SUBCUT SCH ×3 (09:15→17:59)
[2020-03-29] MEDS: AMLODIPINE BESYLATE 10 MG TABLET PO SCH (10:48)
[2020-03-29] MEDS: MAGNESIUM OXIDE 400 MG TABLET PO SCH (10:48)
[2020-03-29] MEDS: METOPROLOL SUCCINATE 50 MG TAB.SR.24H PO SCH (10:48)
[2020-03-29] MEDS: ALLOPURINOL 100 MG TABLET PO SCH (10:48)
[2020-03-29] MEDS: CALCITRIOL 0.25 MCG CAPSULE PO SCH (10:48)
[2020-03-29] MEDS: HYDRALAZINE HCL 50 MG TABLET PO SCH ×3 (10:48→17:58)
[2020-03-29] MEDS: LINEZOLID 600 MG/300 ML RTUPB IV SCH ×2 (10:49→21:50)
[2020-03-29] MEDS: SITAGLIPTIN PHOSPHATE 50 MG TABLET PO SCH (10:49)
[2020-03-29] MEDS: ASPIRIN 81 MG TABLET, CHEWABLE PO SCH (10:49)
[2020-03-29] MEDS: INSULIN GLARGINE,HUM.REC.ANLOG 1,000 UNIT/10 ML VIAL SUBCUT SCH ×2 (10:49→21:40)
[2020-03-29] MEDS: CLOBETASOL PROPIONATE 0.05% CREAM 15 GM TP SCH ×2 (10:51→22:12)
[2020-03-29] MEDS: RINGERS SOLUTION,LACTATED 1,000 ML IV PRN (14:47)
--- NOTE | 2020-03-29 20:04 | PDOC PROGRESS REPORT ---
Subjective Progress Note for:: 03/29/20 Subjective:: Patient seen by the bedside, she has MRSA pneumonia with hemoptysis on IV Zyvox, Zyvox is preferred to vancomycin because of her kidney disease, IV Zyvox is preferred to p.o. Zyvox because she she is total colectomy with high output ileostomy bag with unreliability of absorption of medication from the GI tract, on multiple occasions she has seen medications in the ileostomy bag. She has recurrent pneumonia with multiple hospitalization, it is felt that part of the reason could be from inadequate absorption of oral antibiotic Reason For Visit: HEALTHCARE ASSOCIATED PNEUMONIA Physical Exam Vital Signs: Temp Pulse Resp BP Pulse Ox 98.7 F 82 18 145/78 H 94 03/29/20 16:27 03/29/20 16:27 03/29/20 16:27 03/29/20 16:27 03/29/20 16:27 Intake & Output 03/28/20 03/29/20 03/30/20 06:59 06:59 06:59 Intake Total 2832 2397 2540 Output Total 2100 1000 800 Balance 732 1397 1740 Weight 116.4 kg 115.6 kg General appearance: PRESENT: no acute distress Eye exam: PRESENT: PERRLA Respiratory exam: PRESENT: clear to auscultation stephen Cardiovascular exam: PRESENT: +S1, +S2 GI/Abdominal exam: PRESENT: soft Neurological exam: PRESENT: alert Results Laboratory Results: 03/27/20 05:25 03/27/20 05:25 03/19/20 03/19/20 03/19/20 16:05 23:21 23:21 Creatine Kinase 132 Troponin I 0.025 0.030 NT-Pro-B Natriuret Pep 3170 H Impressions: Chest X-Ray 03/19/20 16:21 IMPRESSION: Probable vascular congestion with small left effusion. Similar findings were noted on prior study. Chest CT 03/22/20 00:00 IMPRESSION: Multifocal patchy consolidative opacity located about the basilar segments of both lower lobes with elements of tree-in-bud and groundglass opacity. Additional mild groundglass opacity within the left upper lobe. Overall, findings are most suspicious for an atypical infectious/inflammatory process/multifocal pneumonia. Short interval follow-up to clearing is recommended (3 months) to exclude a more sinister process such as malignancy. Mediastinal lymphadenopathy, likely reactive. Additional mildly enlarged stephani hepatic lymph node is indeterminate though appears similar to the previous exam dated 04/16/2019. Cholelithiasis. Indeterminate intermediate density lesion emanating from the upper pole of the right kidney. Correlate with retroperitoneal ultrasound. TECHNICAL DOCUMENTATION: Quality ID # [id number]: Final reports with documentation of one or more dose reduction techniques (e.g., Automated exposure control, adjustment of the mA and/or kV according to patient size, use of iterative reconstruction technique) copyright 2011 [employer]- All Rights Reserved Assessment & Plan - Diagnosis (1) MRSA pneumonia Qualifiers: Laterality: unspecified laterality Lung location: unspecified part of lung Qualified Code(s): J15.212 - Pneumonia due to Methicillin resistant Staphylococcus aureus Is this a current diagnosis for this admission?: Yes Plan: Continue Zyvox for a total of 2 weeks (2) Acute hypoxemic respiratory failure Is this a current diagnosis for this admission?: Yes Plan: Patient still requires supplemental oxygen, 2 L nasal cannula (3) Healthcare-associated pneumonia Is this a current diagnosis for this admission?: Yes (4) Chronic kidney disease, stage 3 Is this a current diagnosis for this admission?: Yes (5) Coronary artery disease Qualifiers: Coronary Disease-Associated Artery/Lesion type: unspecified vessel or lesion type [place] vs. transplanted heart: [place] heart Associated angina: without angina Qualified Code(s): I25.10 - Atherosclerotic heart disease of [place] coronary artery without angina pectoris Is this a current diagnosis for this admission?: Yes (6) High output ileostomy Is this a current diagnosis for this admission?: Yes (7) Morbid obesity Is this a current diagnosis for this admission?: Yes (8) Chronic systolic heart failure Is this a current diagnosis for this admission?: Yes (9) Diabetes mellitus Qualifiers: Diabetes mellitus type: type 2 Diabetes mellitus pulmonary fellow insulin use: with fdc use Diabetes mellitus complication status: with kidney complications Diabetes mellitus complication detail: with chronic kidney disease Chronic kidney disease stage: stage 3 (moderate) Qualified Code(s): E11.22 - Type 2 diabetes mellitus with diabetic chronic kidney disease; N18.3 - Chronic kidney disease, stage 3 (moderate); Z79.4 - project finance analyst (current) use of insulin Is this a current diagnosis for this admission?: Yes (10) Hypertensive urgency Is this a current diagnosis for this admission?: Yes - Time Time Spent with patient: 15-24 minutes Level of Care: IMCU Anticipated discharge: Home Anticipated DC Timeframe: within 72 hours
[2020-03-29] MEDS: ATORVASTATIN CALCIUM 10 MG TABLET PO SCH (21:50)
[2020-03-30] MEDS: HYDROMORPHONE HCL INJ/PF 2 MG/ML AMPULE IV PRN ×5 (04:38→22:11)
[2020-03-30] MEDS: RINGERS SOLUTION,LACTATED 1,000 ML IV PRN ×2 (05:07→17:58)
[2020-03-30] MEDS: HEPARIN SOD (PORCINE) 5,000 UNIT/ML 1 ML VIAL SUBCUT SCH ×3 (07:07→21:14)
[2020-03-30] MEDS: PREGABALIN 50 MG CAPSULE PO SCH ×3 (07:26→21:08)
[2020-03-30] MEDS: SODIUM BICARBONATE 650 MG TABLET PO SCH ×3 (07:26→21:08)
[2020-03-30] MEDS: INSULIN LISPRO 100 UNIT/ML 3 ML VIAL SUBCUT SCH ×3 (08:54→17:54)
[2020-03-30] MEDS: ALLOPURINOL 100 MG TABLET PO SCH (08:59)
[2020-03-30] MEDS: CALCITRIOL 0.25 MCG CAPSULE PO SCH (08:59)
[2020-03-30] MEDS: ASPIRIN 81 MG TABLET, CHEWABLE PO SCH (08:59)
[2020-03-30] MEDS: METOPROLOL SUCCINATE 50 MG TAB.SR.24H PO SCH (08:59)
[2020-03-30] MEDS: HYDRALAZINE HCL 50 MG TABLET PO SCH ×3 (08:59→17:57)
[2020-03-30] MEDS: LINEZOLID 600 MG/300 ML RTUPB IV SCH ×2 (08:59→21:08)
[2020-03-30] MEDS: AMLODIPINE BESYLATE 10 MG TABLET PO SCH (09:00)
[2020-03-30] MEDS: SITAGLIPTIN PHOSPHATE 50 MG TABLET PO SCH (09:00)
[2020-03-30] MEDS: INSULIN GLARGINE,HUM.REC.ANLOG 1,000 UNIT/10 ML VIAL SUBCUT SCH ×2 (09:00→21:14)
[2020-03-30] MEDS: MAGNESIUM OXIDE 400 MG TABLET PO SCH (09:00)
[2020-03-30] MEDS: CLOBETASOL PROPIONATE 0.05% CREAM 15 GM TP SCH ×2 (09:01→21:08)
--- NOTE | 2020-03-30 19:24 | PDOC PROGRESS REPORT ---
Subjective Progress Note for:: 03/30/20 Subjective:: Patient denied chest pain or difficulty with breathing. No fever or chills. No nausea, vomiting or abdominal pain. ileostomy is functioning okay. Reason For Visit: HE[facility]ARE ASSOCIATED PNEUMONIA Physical Exam Vital Signs: Temp Pulse Resp BP Pulse Ox 98.2 F 70 18 159/81 H 95 03/30/20 07:58 03/30/20 07:58 03/30/20 07:58 03/30/20 07:58 03/30/20 07:58 Intake & Output 03/29/20 03/30/20 03/31/20 06:59 06:59 06:59 Intake Total 2397 4058 300 Output Total 1000 1250 Balance 1397 2808 300 Weight 115.6 kg 115.6 kg 115.6 kg General appearance: PRESENT: no acute distress, morbidly obese Head exam: PRESENT: atraumatic, normocephalic Eye exam: PRESENT: conjunctiva pink. ABSENT: scleral icterus Mouth exam: PRESENT: moist Respiratory exam: PRESENT: clear to auscultation stephen, decreased breath sounds - at lung bases Cardiovascular exam: PRESENT: RRR, +S1, +S2. ABSENT: diastolic murmur, rubs, systolic murmur Vascular exam: ABSENT: pallor GI/Abdominal exam: PRESENT: normal bowel sounds, soft, other - RLQ functioning ileostomy. ABSENT: distended, guarding, mass, organolmegaly, rebound, tenderness Musculoskeletal exam: PRESENT: deformity - with multiple joints involvement with arthritis, tenderness - to palpation of her legs Neurological exam: PRESENT: alert, awake Psychiatric exam: PRESENT: appropriate affect, normal mood. ABSENT: homicidal ideation, suicidal ideation Skin exam: PRESENT: dry, warm Results Laboratory Results: 03/27/20 05:25 03/27/20 05:25 03/19/20 03/19/20 03/19/20 16:05 23:21 23:21 Creatine Kinase 132 Troponin I 0.025 0.030 NT-Pro-B Natriuret Pep 3170 H Impressions: Chest X-Ray 03/19/20 16:21 IMPRESSION: Probable vascular congestion with small left effusion. Similar findings were noted on prior study. Chest CT 03/22/20 00:00 IMPRESSION: Multifocal patchy consolidative opacity located about the basilar segments of both lower lobes with elements of tree-in-bud and groundglass opacity. Additional mild groundglass opacity within the left upper lobe. Overall, findings are most suspicious for an atypical infectious/inflammatory process/multifocal pneumonia. Short interval follow-up to clearing is recommended (3 months) to exclude a more sinister process such as malignancy. Mediastinal lymphadenopathy, likely reactive. Additional mildly enlarged stephani hepatic lymph node is indeterminate though appears similar to the previous exam dated 04/16/2019. Cholelithiasis. Indeterminate intermediate density lesion emanating from the upper pole of the right kidney. Correlate with retroperitoneal ultrasound. TECHNICAL DOCUMENTATION: Quality ID # [id number]: Final reports with documentation of one or more dose reduction techniques (e.g., Automated exposure control, adjustment of the mA and/or kV according to patient size, use of iterative reconstruction technique) copyright 2011 [employer]- All Rights Reserved Assessment & Plan - Diagnosis (1) Healthcare-associated pneumonia Is this a current diagnosis for this admission?: Yes Plan: Continue IV Zyvox therapy. (2) Chronic kidney disease, stage 3 Is this a current diagnosis for this admission?: Yes Plan: Continue current medical management. (3) Essential (primary) hypertension Is this a current diagnosis for this admission?: Yes Plan: Continue current medical management. (4) Chronic systolic heart failure Is this a current diagnosis for this admission?: Yes Plan: Continue current medical management. (5) High output ileostomy Is this a current diagnosis for this admission?: Yes Plan: Continue current medical management. (6) Morbid obesity Is this a current diagnosis for this admission?: Yes Plan: Continue current medical management. - Time Time Spent with patient: 25-34 minutes Level of Care: IMCU Medications reviewed and adjusted accordingly: Yes Anticipated discharge: Home with Homehealth Anticipated DC Timeframe: Other - Inpatient Certification Based on my medical assessment, after consideration of the patient's comorbidities, presenting symptoms, or acuity I expect that the services needed warrant INPATIENT care.: Yes I certify that my determination is in accordance with my understanding of Medicare's requirements for reasonable and necessary INPATIENT services [42 CFR 412.3e].: Yes Medical Necessity: Significant Comorbidiites Make Outpatient Treatment Too Risky, Need Close Monitoring Due to Risk of Patient Decompensation, Need For Continuous Telemetry Monitoring, Need for IV Antibiotics, Risk of Complication if Not Cared For in Hospital, Risk of Diagnosis Which Will Require Inpatient Eval/Care/Monitoring Post Hospital Care: D/C Oceanology Teacher Documentation - Plan Summary Plan Summary: Continue current medical management.
[2020-03-30] MEDS: ATORVASTATIN CALCIUM 10 MG TABLET PO SCH (21:08)
[2020-03-31] MEDS: HYDROMORPHONE HCL INJ/PF 2 MG/ML AMPULE IV PRN ×4 (02:20→21:19)
[2020-03-31] MEDS: PREGABALIN 50 MG CAPSULE PO SCH ×3 (06:27→21:19)
[2020-03-31] MEDS: SODIUM BICARBONATE 650 MG TABLET PO SCH ×3 (06:27→21:19)
[2020-03-31] MEDS: HEPARIN SOD (PORCINE) 5,000 UNIT/ML 1 ML VIAL SUBCUT SCH ×3 (07:10→21:19)
[2020-03-31] MEDS: INSULIN LISPRO 100 UNIT/ML 3 ML VIAL SUBCUT SCH ×3 (09:38→17:47)
[2020-03-31] MEDS: ASPIRIN 81 MG TABLET, CHEWABLE PO SCH (10:52)
[2020-03-31] MEDS: HYDRALAZINE HCL 50 MG TABLET PO SCH ×3 (10:52→18:06)
[2020-03-31] MEDS: ALLOPURINOL 100 MG TABLET PO SCH (10:52)
[2020-03-31] MEDS: AMLODIPINE BESYLATE 10 MG TABLET PO SCH (10:52)
[2020-03-31] MEDS: SITAGLIPTIN PHOSPHATE 50 MG TABLET PO SCH (10:52)
[2020-03-31] MEDS: MAGNESIUM OXIDE 400 MG TABLET PO SCH (10:53)
[2020-03-31] MEDS: CALCITRIOL 0.25 MCG CAPSULE PO SCH (10:53)
[2020-03-31] MEDS: INSULIN GLARGINE,HUM.REC.ANLOG 1,000 UNIT/10 ML VIAL SUBCUT SCH ×2 (10:53→21:20)
[2020-03-31] MEDS: METOPROLOL SUCCINATE 50 MG TAB.SR.24H PO SCH (10:53)
[2020-03-31] MEDS: LINEZOLID 600 MG/300 ML RTUPB IV SCH ×2 (10:54→21:21)
[2020-03-31] MEDS: RINGERS SOLUTION,LACTATED 1,000 ML IV PRN (11:03)
[2020-03-31] MEDS: CLOBETASOL PROPIONATE 0.05% CREAM 15 GM TP SCH ×2 (11:05→21:24)
--- NOTE | 2020-03-31 13:20 | PDOC PROGRESS REPORT ---
Subjective Progress Note for:: 03/31/20 Subjective:: Patient is OOB in chair. No chest pain or difficulty with breathing. No fever or chills. No nausea, vomiting or abdominal pain. Reason For Visit: HEALTHCARE ASSOCIATED PNEUMONIA Physical Exam Vital Signs: Temp Pulse Resp BP Pulse Ox 98.2 F 78 16 147/86 H 97 03/31/20 11:17 03/31/20 11:17 03/31/20 11:17 03/31/20 11:17 03/31/20 11:17 Intake & Output 03/30/20 03/31/20 04/01/20 06:59 06:59 06:59 Intake Total 4058 3050 1000 Output Total 1250 1080 Balance 2808 1970 1000 Weight 115.6 kg 115.7 kg Physical Exam: General appearance: PRESENT: no acute distress, morbidly obese Head exam: PRESENT: atraumatic, normocephalic Eye exam: PRESENT: conjunctiva pink. ABSENT: pallor, scleral icterus Mouth exam: PRESENT: moist Respiratory exam: PRESENT: clear to auscultation stephen, decreased breath sounds - at lung bases Cardiovascular exam: PRESENT: RRR, +S1, +S2. ABSENT: diastolic murmur, rubs, systolic murmur GI/Abdominal exam: PRESENT: normal bowel sounds, soft, other - RLQ functioning ileostomy. ABSENT: distended, guarding, mass, organolmegaly, rebound, tenderness Musculoskeletal exam: PRESENT: deformity - with multiple joints involvement with arthritis, tenderness - to palpation of her legs Neurological exam: PRESENT: alert, awake Psychiatric exam: PRESENT: appropriate affect, normal mood. ABSENT: homicidal ideation, suicidal ideation Skin exam: PRESENT: dry, warm Results Laboratory Results: 03/27/20 05:25 03/27/20 05:25 03/19/20 03/19/20 03/19/20 16:05 23:21 23:21 Creatine Kinase 132 Troponin I 0.025 0.030 NT-Pro-B Natriuret Pep 3170 H Impressions: Chest X-Ray 03/19/20 16:21 IMPRESSION: Probable vascular congestion with small left effusion. Similar findings were noted on prior study. Chest CT 03/22/20 00:00 IMPRESSION: Multifocal patchy consolidative opacity located about the basilar segments of both lower lobes with elements of tree-in-bud and groundglass opacity. Additional mild groundglass opacity within the left upper lobe. Overall, findings are most suspicious for an atypical infectious/inflammatory process/multifocal pneumonia. Short interval follow-up to clearing is recommended (3 months) to exclude a more sinister process such as malignancy. Mediastinal lymphadenopathy, likely reactive. Additional mildly enlarged stephani hepatic lymph node is indeterminate though appears similar to the previous exam dated 04/16/2019. Cholelithiasis. Indeterminate intermediate density lesion emanating from the upper pole of the right kidney. Correlate with retroperitoneal ultrasound. TECHNICAL DOCUMENTATION: Quality ID # 436: Final reports with documentation of one or more dose reduction techniques (e.g., Automated exposure control, adjustment of the mA and/or kV according to patient size, use of iterative reconstruction technique) copyright 2011 [employer]- All Rights Reserved Assessment & Plan - Diagnosis (1) Healthcare-associated pneumonia Is this a current diagnosis for this admission?: Yes (2) Chronic kidney disease, stage 3 Is this a current diagnosis for this admission?: Yes (3) Essential (primary) hypertension Is this a current diagnosis for this admission?: Yes (4) Chronic systolic heart failure Is this a current diagnosis for this admission?: Yes (5) High output ileostomy Is this a current diagnosis for this admission?: Yes (6) Morbid obesity Is this a current diagnosis for this admission?: Yes - Time Time Spent with patient: 25-34 minutes Level of Care: IMCU Medications reviewed and adjusted accordingly: Yes Anticipated discharge: Home with Homehealth Anticipated DC Timeframe: Other - Inpatient Certification Based on my medical assessment, after consideration of the patient's comorbidities, presenting symptoms, or acuity I expect that the services needed warrant INPATIENT care.: Yes I certify that my determination is in accordance with my understanding of Medicare's requirements for reasonable and necessary INPATIENT services [42 CFR 412.3e].: Yes Medical Necessity: Significant Comorbidiites Make Outpatient Treatment Too Risky, Need Close Monitoring Due to Risk of Patient Decompensation, Need For IV Fluids, Need For Continuous Telemetry Monitoring, Need for IV Antibiotics, Risk of Complication if Not Cared For in Hospital, Risk of Diagnosis Which Will Require Inpatient Eval/Care/Monitoring Post Hospital Care: D/C Medical Record Transcriber Documentation - Plan Summary Plan Summary: Continue current medication management. Obtain cbc with diff, BMP in am.
[2020-03-31] MEDS: ATORVASTATIN CALCIUM 10 MG TABLET PO SCH (21:19)
[2020-04-01] MEDS: HYDROMORPHONE HCL INJ/PF 2 MG/ML AMPULE IV PRN ×6 (01:30→23:23)
[2020-04-01] MEDS: RINGERS SOLUTION,LACTATED 1,000 ML IV PRN ×2 (01:33→18:19)
[2020-04-01] MEDS: HEPARIN SOD (PORCINE) 5,000 UNIT/ML 1 ML VIAL SUBCUT SCH ×3 (05:55→21:35)
[2020-04-01] MEDS: SODIUM BICARBONATE 650 MG TABLET PO SCH ×3 (05:55→21:35)
[2020-04-01] MEDS: PREGABALIN 50 MG CAPSULE PO SCH ×3 (05:55→21:35)
[2020-04-01 06:15] LABS: ABSOLUTE BASOPHILS # (AUTO) 0.1 10^3/uL (0.0-0.2); ABSOLUTE EOSINOPHILS # (AUTO) 0.2 10^3/uL (0.0-0.6); ABSOLUTE LYMPHOCYTES (AUTO) 2.1 10^3/uL (0.5-4.7); ABSOLUTE MONOCYTES (AUTO) 0.5 10^3/uL (0.1-1.4); ABSOLUTE NEUT (AUTO) 5.6 10^3/uL (1.7-8.2); EOSINOPHILS % (AUTO) 2.1 % (0-6); HEMATOCRIT 32.4 % (36.0-47.0); HEMOGLOBIN 10.6 g/dL (12.0-15.5); LYMPHOCYTES % (AUTO) 24.9 % (13-45); MEAN CORPUSCULAR HEMOGLOBIN 28.4 pg (27.0-33.4); MEAN CORPUSCULAR HGB CONC 32.7 g/dL (32.0-36.0); MEAN CORPUSCULAR VOLUME 87 fl (80-97); PLATELET COUNT 101 10^3/uL (150-450); RED BLOOD COUNT 3.73 10^6/uL (3.72-5.28); RED CELL DISTRIBUTION WIDTH 18.1 % (11.5-14.0); TOTAL CELLS COUNTED % (AUTO) 100 %; WHITE BLOOD COUNT 8.5 10^3/uL (4.0-10.5)
[2020-04-01 06:34] LABS: ANION GAP 7 (5-19); BLOOD UREA NITROGEN 21 mg/dL (7-20); CALCIUM 9.9 mg/dL (8.4-10.2); CARBON DIOXIDE 26 mmol/L (22-30); CHLORIDE 105 mmol/L (98-107); GLUCOSE 119 mg/dL (75-110)
[2020-04-01] MEDS: HYDRALAZINE HCL 50 MG TABLET PO SCH ×3 (09:36→18:19)
[2020-04-01] MEDS: AMLODIPINE BESYLATE 10 MG TABLET PO SCH (09:36)
[2020-04-01] MEDS: CALCITRIOL 0.25 MCG CAPSULE PO SCH (09:36)
[2020-04-01] MEDS: ALLOPURINOL 100 MG TABLET PO SCH (09:36)
[2020-04-01] MEDS: METOPROLOL SUCCINATE 50 MG TAB.SR.24H PO SCH (09:36)
[2020-04-01] MEDS: SITAGLIPTIN PHOSPHATE 50 MG TABLET PO SCH (09:36)
[2020-04-01] MEDS: INSULIN LISPRO 100 UNIT/ML 3 ML VIAL SUBCUT SCH ×3 (09:36→17:14)
[2020-04-01] MEDS: ASPIRIN 81 MG TABLET, CHEWABLE PO SCH (09:37)
[2020-04-01] MEDS: CLOBETASOL PROPIONATE 0.05% CREAM 15 GM TP SCH ×2 (09:37→21:41)
[2020-04-01] MEDS: INSULIN GLARGINE,HUM.REC.ANLOG 1,000 UNIT/10 ML VIAL SUBCUT SCH ×2 (09:37→21:28)
[2020-04-01] MEDS: MAGNESIUM OXIDE 400 MG TABLET PO SCH (09:37)
[2020-04-01] MEDS: LINEZOLID 600 MG/300 ML RTUPB IV SCH ×2 (09:37→21:37)
--- NOTE | 2020-04-01 21:17 | PDOC PROGRESS REPORT ---
Subjective Progress Note for:: 04/01/20 Subjective:: Patient seen by the bedside, she has MRSA pneumonia with hemoptysis on IV Zyvox, Zyvox is preferred to vancomycin because of her kidney disease, IV Zyvox is preferred to p.o. Zyvox because she she is total colectomy with high output ileostomy bag with unreliability of absorption of medication from the GI tract, on multiple occasions she has seen medications in the ileostomy bag. She has recurrent pneumonia with multiple hospitalization, it is felt that part of the reason could be from inadequate absorption of oral antibiotic Reason For Visit: HEALTHCARE ASSOCIATED PNEUMONIA Physical Exam Vital Signs: Temp Pulse Resp BP Pulse Ox 97.8 F 92 16 152/80 H 92 04/01/20 03:51 04/01/20 19:00 04/01/20 03:51 04/01/20 03:51 04/01/20 03:51 Intake & Output 03/31/20 04/01/20 04/02/20 06:59 06:59 06:59 Intake Total 3050 3757 2420 Output Total 1080 1100 400 Balance 1970 2656 2019 Weight 115.7 kg 116.5 kg General appearance: PRESENT: no acute distress, well-developed, well-nourished Head exam: PRESENT: atraumatic, normocephalic Eye exam: PRESENT: conjunctiva pink, EOMI, PERRLA. ABSENT: scleral icterus Ear exam: PRESENT: normal external ear exam Mouth exam: PRESENT: moist, tongue midline Neck exam: PRESENT: full ROM. ABSENT: carotid bruit, JVD, lymphadenopathy, thyromegaly Cardiovascular exam: PRESENT: RRR. ABSENT: diastolic murmur, rubs, systolic murmur Pulses: PRESENT: normal dorsalis pedis pul, +2 pedal pulses bilateral Vascular exam: PRESENT: normal capillary refill GI/Abdominal exam: PRESENT: normal bowel sounds, soft. ABSENT: distended, guarding, mass, organolmegaly, rebound, tenderness Rectal exam: PRESENT: deferred Neurological exam: PRESENT: alert, awake, oriented to person, oriented to place, oriented to time, oriented to situation, CN II-XII grossly intact. ABSENT: motor sensory deficit Psychiatric exam: PRESENT: appropriate affect, normal mood. ABSENT: homicidal ideation, suicidal ideation Skin exam: PRESENT: dry, intact, warm. ABSENT: cyanosis, rash Results Laboratory Results: 04/01/20 06:00 04/01/20 06:00 04/01/20 04/01/20 06:00 06:00 WBC 8.5 RBC 3.73 Hgb 10.6 L Hct 32.4 L MCV 87 MCH 28.4 MCHC 32.7 RDW 18.1 H Plt Count 101 L Seg Neutrophils % 66.0 Sodium 138.4 Potassium 4.0 Chloride 105 Carbon Dioxide 26 Anion Gap 7 BUN 21 H Creatinine 1.47 H Est GFR ( Amer) 43 L Glucose 119 H Calcium 9.9 03/19/20 03/19/20 03/19/20 16:05 23:21 23:21 Creatine Kinase 132 Troponin I 0.025 0.030 NT-Pro-B Natriuret Pep 3170 H Impressions: Chest X-Ray 03/19/20 16:21 IMPRESSION: Probable vascular congestion with small left effusion. Similar findings were noted on prior study. Chest CT 03/22/20 00:00 IMPRESSION: Multifocal patchy consolidative opacity located about the basilar segments of both lower lobes with elements of tree-in-bud and groundglass opacity. Additional mild groundglass opacity within the left upper lobe. Overall, findings are most suspicious for an atypical infectious/inflammatory process/multifocal pneumonia. Short interval follow-up to clearing is recommended (3 months) to exclude a more sinister process such as malignancy. Mediastinal lymphadenopathy, likely reactive. Additional mildly enlarged stephani hepatic lymph node is indeterminate though appears similar to the previous exam dated 04/16/2019. Cholelithiasis. Indeterminate intermediate density lesion emanating from the upper pole of the right kidney. Correlate with retroperitoneal ultrasound. TECHNICAL DOCUMENTATION: Quality ID # [id number]: Final reports with documentation of one or more dose reduction techniques (e.g., Automated exposure control, adjustment of the mA and/or kV according to patient size, use of iterative reconstruction technique) copyright 2011 [employer]- All Rights Reserved Assessment & Plan - Diagnosis (1) MRSA pneumonia Qualifiers: Laterality: unspecified laterality Lung location: unspecified part of lung Qualified Code(s): J15.212 - Pneumonia due to Methicillin resistant Staphylococcus aureus Is this a current diagnosis for this admission?: Yes Plan: Continue Zyvox for a total of 2 weeks (2) Acute hypoxemic respiratory failure Is this a current diagnosis for this admission?: Yes Plan: Patient still requires supplemental oxygen, 2 L nasal cannula (3) Healthcare-associated pneumonia Is this a current diagnosis for this admission?: Yes (4) Chronic kidney disease, stage 3 Is this a current diagnosis for this admission?: Yes (5) Coronary artery disease Qualifiers: Coronary Disease-Associated Artery/Lesion type: unspecified vessel or lesion type [place] vs. 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 technician insulin use: with fci use Diabetes mellitus complication status: with kidney complications Diabetes mellitus complication detail: with chronic kidney disease Chronic kidney disease stage: stage 3 (moderate) Qualified Code(s): E11.22 - Type 2 diabetes mellitus with diabetic chronic kidney disease; N18.3 - Chronic kidney disease, stage 3 (moderate); Z79.4 - [facility] (current) use of insulin Is this a current diagnosis for this admission?: Yes (10) Hypertensive urgency Is this a current diagnosis for this admission?: Yes - Time Time Spent with patient: 15-24 minutes Level of Care: IMCU Anticipated discharge: Home Anticipated DC Timeframe: within 48 hours
[2020-04-01] MEDS: ATORVASTATIN CALCIUM 10 MG TABLET PO SCH (21:35)
[2020-04-02] MEDS: HYDROMORPHONE HCL INJ/PF 2 MG/ML AMPULE IV PRN ×4 (05:06→22:53)
[2020-04-02] MEDS: PREGABALIN 50 MG CAPSULE PO SCH ×3 (05:06→21:38)
[2020-04-02] MEDS: SODIUM BICARBONATE 650 MG TABLET PO SCH ×3 (05:06→21:38)
[2020-04-02] MEDS: HEPARIN SOD (PORCINE) 5,000 UNIT/ML 1 ML VIAL SUBCUT SCH ×3 (05:10→21:32)
[2020-04-02] MEDS: INSULIN LISPRO 100 UNIT/ML 3 ML VIAL SUBCUT SCH ×3 (07:23→17:13)
[2020-04-02] MEDS: LINEZOLID 600 MG/300 ML RTUPB IV SCH ×2 (09:15→21:40)
[2020-04-02] MEDS: CALCITRIOL 0.25 MCG CAPSULE PO SCH (09:17)
[2020-04-02] MEDS: HYDRALAZINE HCL 50 MG TABLET PO SCH ×3 (09:17→17:16)
[2020-04-02] MEDS: METOPROLOL SUCCINATE 50 MG TAB.SR.24H PO SCH (09:18)
[2020-04-02] MEDS: MAGNESIUM OXIDE 400 MG TABLET PO SCH (09:18)
[2020-04-02] MEDS: AMLODIPINE BESYLATE 10 MG TABLET PO SCH (09:19)
[2020-04-02] MEDS: ALLOPURINOL 100 MG TABLET PO SCH (09:19)
[2020-04-02] MEDS: SITAGLIPTIN PHOSPHATE 50 MG TABLET PO SCH (09:19)
[2020-04-02] MEDS: ASPIRIN 81 MG TABLET, CHEWABLE PO SCH (09:20)
[2020-04-02] MEDS: CLOBETASOL PROPIONATE 0.05% CREAM 15 GM TP SCH ×2 (09:21→21:40)
[2020-04-02] MEDS: INSULIN GLARGINE,HUM.REC.ANLOG 1,000 UNIT/10 ML VIAL SUBCUT SCH ×2 (09:21→21:39)
--- NOTE | 2020-04-02 21:34 | PDOC DISCHARGE SUMMARY ---
Impression - Admit/DC Date/PCP Admission Date/Primary Care Provider: 03/19/20 22:02 LISA MATA MD Discharge Date: 04/03/20 - Discharge Diagnosis (1) MRSA pneumonia Is this a current diagnosis for this admission?: Yes (2) Acute hypoxemic respiratory failure Is this a current diagnosis for this admission?: Yes (3) Healthcare-associated pneumonia Is this a current diagnosis for this admission?: Yes (4) Chronic kidney disease, stage 3 Is this a current diagnosis for this admission?: Yes (5) Coronary artery disease Is this a current diagnosis for this admission?: Yes (6) High output ileostomy Is this a current diagnosis for this admission?: Yes (7) Morbid obesity Is this a current diagnosis for this admission?: Yes (8) Chronic systolic heart failure Is this a current diagnosis for this admission?: Yes (9) Diabetes mellitus Is this a current diagnosis for this admission?: Yes (10) Hypertensive urgency Is this a current diagnosis for this admission?: Yes - Additional Information Resuscitation Status: Full Code Discharge Diet: Diabetic Referrals: LISA MATA MD [Primary Care Provider] - 04/05/20 10:30 am Home Medications: Albuterol Sulfate [Albuterol Sulfate Hfa] 2 puff IH Q4HP PRN 06/19/19 Allopurinol [Zyloprim 100 mg Tablet] 100 mg PO DAILY 06/19/19 Calcitriol [Rocaltrol 0.5 mcg Capsule] 0.5 mcg PO DAILY 06/19/19 Clobetasol Propionate [Temovate 0.05% Cream 15 gm] 1 applic TOP BID 06/19/19 Clotrimazole/Betamethasone Dip [Lotrisone Cream 15 gm] 1 applic TOP BID 06/19/19 Dapagliflozin Propanediol [Farxiga] 5 mg PO DAILY 06/19/19 Loperamide HCl [Imodium 2 mg Capsule] 2 mg PO Q3HP PRN 06/19/19 Metoprolol Succinate [Toprol Xl] 200 mg PO DAILY 06/19/19 Oxycodone HCl [Oxycodone HCl 10 MG Tablet] 10 mg PO Q8HP PRN 06/19/19 Sitagliptin Phosphate [Januvia 50 mg Tablet] 50 mg PO DAILY 06/19/19 Exenatide Microspheres [Bydureon Pen] 2 mg SQ KYLE@1000 02/19/20 Hydralazine HCl [Apresoline 50 mg Tablet] 50 mg PO TID 02/19/20 Insulin Aspart [Novolog Flexpen] 0 unit SQ .SLIDING SCALE 02/19/20 Insulin Glargine,Hum.rec.anlog [Lantus Insulin 100 Unit/mL Insulin Pen] 60 unit SUBCUT Q12HP PRN 02/19/20 Magnesium Oxide [Mag-Ox 400 mg Tablet] 400 mg PO DAILY 02/19/20 Pravastatin Sodium 40 mg PO DAILY 02/19/20 Colchicine [Colcrys 0.6 mg Tablet] 0.6 mg PO DAILY 03/20/20 Fluconazole [Diflucan] 150 mg PO WE@1000 03/20/20 Nystatin [Mycostatin Topical Powder 15 gm] 1 applic TP BID 03/20/20 Oxycodone Myristate [Xtampza ER] 18 mg PO Q12 03/20/20 Pregabalin 150 mg PO Q8 03/20/20 History of Present Illiness History of Present Illness: RANDEE VELÁSQUEZ is a 64 year old female, She came to the emergency room for evaluation of respiratory symptoms, cough, fever, leukocytosis, hypoxemia consistent with pneumonia. She was recently discharged from this hospital on February 27, 2020 when she had pneumonia. The rapid SARS-CoV-2 test was negative she has multiple comorbid conditions including Sedentary lifestyle, morbid obesity, diabetes mellitus type 2 complicated with with neuropathy chronic pain with chronic opioid use, status post total colectomy with high output Ileostomy, multiple hospitalization for various indications. The oxygen saturation was 81% on ambient air Hospital Course Hospital Course: Patient was admitted for the management of MRSA pneumonia, there was associated hemoptysis. She was treated with intravenous Zyvox, Zyvox was chosen over vancomycin because of the chronic kidney disease. She was treated for 2 weeks IV Zyvox was chosen over p.o. Zyvox because she has unreliable GI tract, she is total colectomy with up with high output ileostomy bag. The reliability of drug absorption is not guaranteed, she has multiple hospitalization for pneumonia so it was felt that she is best managed with intravenous medication. She has other comorbid conditions including diabetes mellitus with complications Physical Exam Vital Signs: Temp Pulse Resp BP Pulse Ox 97.8 F 90 20 127/99 H 95 04/02/20 11:00 04/02/20 14:00 04/02/20 11:00 04/02/20 11:00 04/02/20 11:00 Intake & Output 04/01/20 04/02/20 04/03/20 06:59 06:59 06:59 Intake Total 3757 2720 580 Output Total 1100 850 600 Balance 2657 1870 -20 Weight 116.5 kg 116.9 kg General appearance: PRESENT: no acute distress Eye exam: PRESENT: PERRLA Respiratory exam: PRESENT: clear to auscultation stephen Cardiovascular exam: PRESENT: +S1, +S2 Neurological exam: PRESENT: alert Results Laboratory Results: WBC 8.5 10^3/uL (4.0-10.5) 04/01/20 06:00 RBC 3.73 10^6/uL (3.72-5.28) 04/01/20 06:00 Hgb 10.6 g/dL (12.0-15.5) L 04/01/20 06:00 Hct 32.4 % (36.0-47.0) L 04/01/20 06:00 MCV 87 fl (80-97) 04/01/20 06:00 MCH 28.4 pg (27.0-33.4) 04/01/20 06:00 MCHC 32.7 g/dL (32.0-36.0) 04/01/20 06:00 RDW 18.1 % (11.5-14.0) H 04/01/20 06:00 Plt Count 101 10^3/uL (150-450) L 04/01/20 06:00 Lymph % (Auto) 24.9 % (13-45) 04/01/20 06:00 [place] % (Auto) 6.0 % (3-13) 04/01/20 06:00 Eos % (Auto) 2.1 % (0-6) 04/01/20 06:00 Baso % (Auto) 1.0 % (0-2) 04/01/20 06:00 Absolute Neuts (auto) 5.6 10^3/uL (1.7-8.2) 04/01/20 06:00 Absolute Lymphs (auto) 2.1 10^3/uL (0.5-4.7) 04/01/20 06:00 Absolute Monos (auto) 0.5 10^3/uL (0.1-1.4) 04/01/20 06:00 Absolute Eos (auto) 0.2 10^3/uL (0.0-0.6) 04/01/20 06:00 Absolute Basos (auto) 0.1 10^3/uL (0.0-0.2) 04/01/20 06:00 Seg Neutrophils % 66.0 % (42-78) 04/01/20 06:00 Platelet Comment DECREASED 03/22/20 07:45 Polychromasia SLIGHT 03/22/20 07:45 Hypochromasia SLIGHT 03/22/20 07:45 Anisocytosis 1+ 03/22/20 07:45 PT 16.7 SEC (11.4-15.4) H 03/19/20 16:30 INR 1.34 03/19/20 16:30 VBG pH 7.31 (7.30-7.42) 03/19/20 16:40 VBG pCO2 54.0 mmHg (35-63) 03/19/20 16:40 VBG HCO3 26.6 mmol/L (20-32) 03/19/20 16:40 VBG Base Excess -0.3 mmol/L 03/19/20 16:40 Sodium 138.4 mmol/L (137-145) 04/01/20 06:00 Potassium 4.0 mmol/L (3.6-5.0) 04/01/20 06:00 Chloride 105 mmol/L (98-107) 04/01/20 06:00 Carbon Dioxide 26 mmol/L (22-30) 04/01/20 06:00 Anion Gap 7 (5-19) 04/01/20 06:00 BUN 21 mg/dL (7-20) H 04/01/20 06:00 Creatinine 1.47 mg/dL (0.52-1.25) H 04/01/20 06:00 Est GFR ( Amer) 43 (>60) L 04/01/20 06:00 Est GFR (MDRD) Non-Af 36 (>60) L 04/01/20 06:00 Glucose 119 mg/dL (75-110) H 04/01/20 06:00 POC Glucose 166 mg/dL (70-110) H 04/02/20 16:25 Hemoglobin A1c % 7.1 % (4.7-6.0) H 03/20/20 05:35 Lactic Acid 0.8 mmol/L (0.7-2.1) 03/20/20 05:35 Calcium 9.9 mg/dL (8.4-10.2) 04/01/20 06:00 Total Bilirubin 0.6 mg/dL (0.2-1.3) 03/27/20 05:25 Direct Bilirubin 0.1 mg/dL (0.0-0.4) 03/27/20 05:25 Neonat Total Bilirubin Not Reportable 03/27/20 05:25 Neonat Direct Bilirubin Not Reportable 03/27/20 05:25 Neonat Indirect Bili Not Reportable 03/27/20 05:25 AST 39 U/L (14-36) H 03/27/20 05:25 ALT 34 U/L (<35) 03/27/20 05:25 Alkaline Phosphatase 73 U/L (38-126) 03/27/20 05:25 Creatine Kinase 132 U/L (30-135) 03/19/20 23:21 Troponin I 0.030 ng/mL 03/19/20 23:21 NT-Pro-B Natriuret Pep 3170 pg/mL (<125) H 03/19/20 16:05 Total Protein 7.0 g/dL (6.3-8.2) 03/27/20 05:25 Albumin 3.4 g/dL (3.5-5.0) L 03/27/20 05:25 Urine Color YELLOW 03/20/20 05:35 Urine Appearance SLIGHTLY-CLOUDY 03/20/20 05:35 Urine pH 6.0 (5.0-9.0) 03/20/20 05:35 Ur Specific [place] 1.018 03/20/20 05:35 Urine Protein 100 mg/dL (NEGATIVE) H 03/20/20 05:35 Urine Glucose (UA) 50 mg/dL (NEGATIVE) H 03/20/20 05:35 Urine Ketones NEGATIVE mg/dL (NEGATIVE) 03/20/20 05:35 Urine Blood MODERATE (NEGATIVE) H 03/20/20 05:35 Urine Nitrite NEGATIVE (NEGATIVE) 03/20/20 05:35 Urine Bilirubin NEGATIVE (NEGATIVE) 03/20/20 05:35 Urine Urobilinogen NEGATIVE mg/dL (<2.0) 03/20/20 05:35 Ur Leukocyte Esterase LARGE (NEGATIVE) H 03/20/20 05:35 Urine WBC (Auto) 49 /HPF 03/20/20 05:35 Urine RBC (Auto) 3 /HPF 03/20/20 05:35 U Hyaline Cast (Auto) 1 /LPF 03/20/20 05:35 Urine Bacteria (Auto) TRACE /HPF 03/20/20 05:35 Squamous Epi Cells Auto 7 /HPF 03/20/20 05:35 Urine Mucus (Auto) RARE /LPF 03/20/20 05:35 Urine Ascorbic Acid NEGATIVE (NEGATIVE) 03/20/20 05:35 SARS-CoV-2 (PCR) NEGATIVE (NEGATIVE) 03/19/20 19:05 03/19/20 03/19/20 16:05 23:21 Troponin I 0.025 0.030 NT-Pro-B Natriuret Pep 3170 H Impressions: Chest X-Ray 03/19/20 16:21 IMPRESSION: Probable vascular congestion with small left effusion. Similar findings were noted on prior study. Chest CT 03/22/20 00:00 IMPRESSION: Multifocal patchy consolidative opacity located about the basilar segments of both lower lobes with elements of tree-in-bud and groundglass opacity. Additional mild groundglass opacity within the left upper lobe. Overall, findings are most suspicious for an atypical infectious/inflammatory process/multifocal pneumonia. Short interval follow-up to clearing is recommended (3 months) to exclude a more sinister process such as malignancy. Mediastinal lymphadenopathy, likely reactive. Additional mildly enlarged stephani hepatic lymph node is indeterminate though appears similar to the previous exam dated 04/16/2019. Cholelithiasis. Indeterminate intermediate density lesion emanating from the upper pole of the right kidney. Correlate with retroperitoneal ultrasound. TECHNICAL DOCUMENTATION: Quality ID # [id number]: Final reports with documentation of one or more dose reduction techniques (e.g., Automated exposure control, adjustment of the mA and/or kV according to patient size, use of iterative reconstruction technique) copyright 2010 [employer]- All Rights Reserved Stroke Is this a Stroke Patient?: No Acute Heart Failure - Is this a Heart Failure Patient?: No
[2020-04-02] MEDS: ATORVASTATIN CALCIUM 10 MG TABLET PO SCH (21:38)
[2020-04-02] MEDS: RINGERS SOLUTION,LACTATED 1,000 ML IV PRN (21:46)
[2020-04-03] MEDS: HYDROMORPHONE HCL INJ/PF 2 MG/ML AMPULE IV PRN ×3 (03:30→11:53)
[2020-04-03] MEDS: HEPARIN SOD (PORCINE) 5,000 UNIT/ML 1 ML VIAL SUBCUT SCH (05:10)
[2020-04-03] MEDS: PREGABALIN 50 MG CAPSULE PO SCH (05:11)
[2020-04-03] MEDS: SODIUM BICARBONATE 650 MG TABLET PO SCH (05:11)
[2020-04-03] MEDS: INSULIN LISPRO 100 UNIT/ML 3 ML VIAL SUBCUT SCH ×2 (08:37→22:09)
[2020-04-03 09:11] VITALS: BP 151/76
[2020-04-03] MEDS: METOPROLOL SUCCINATE 50 MG TAB.SR.24H PO SCH (09:12)
[2020-04-03] MEDS: ALLOPURINOL 100 MG TABLET PO SCH (09:12)
[2020-04-03] MEDS: CALCITRIOL 0.25 MCG CAPSULE PO SCH (09:12)
[2020-04-03] MEDS: HYDRALAZINE HCL 50 MG TABLET PO SCH (09:12)
[2020-04-03] MEDS: ASPIRIN 81 MG TABLET, CHEWABLE PO SCH (09:12)
[2020-04-03] MEDS: SITAGLIPTIN PHOSPHATE 50 MG TABLET PO SCH (09:13)
[2020-04-03] MEDS: INSULIN GLARGINE,HUM.REC.ANLOG 1,000 UNIT/10 ML VIAL SUBCUT SCH (09:13)
[2020-04-03] MEDS: AMLODIPINE BESYLATE 10 MG TABLET PO SCH (09:13)
[2020-04-03] MEDS: MAGNESIUM OXIDE 400 MG TABLET PO SCH (09:13)
[2020-04-03] MEDS: CLOBETASOL PROPIONATE 0.05% CREAM 15 GM TP SCH (09:14)
== END 2020-04-03 12:26 | disposition home or self-care (01) | DRG 177 ==
LOC: ER 15:04 → EH 22:02 → 5 22:52 → UNDODISIN 03-23 13:45
PROVIDERS: ADMIT Internal Medicine; ATTEND Internal Medicine
DX: J15.212 Pneumonia due to Methicillin resistant Staphylococcus aureus (principal); J96.01 Acute respiratory failure with hypoxia; I13.0 Hypertensive heart and chronic kidney disease with heart failure and stage 1 through stage 4 chronic kidney disease, or unspecified chronic kidney disease; I50.22 Chronic systolic (congestive) heart failure; Z68.42 Body mass index [BMI] 45.0-49.9, adult; E11.22 Type 2 diabetes mellitus with diabetic chronic kidney disease; N18.3 Chronic kidney disease, stage 3 (moderate); I25.10 Atherosclerotic heart disease of native coronary artery without angina pectoris; I16.0 Hypertensive urgency; I48.91 Unspecified atrial fibrillation; K21.9 Gastro-esophageal reflux disease without esophagitis; E78.5 Hyperlipidemia, unspecified; G89.29 Other chronic pain; E66.01 Morbid (severe) obesity due to excess calories; I25.2 Old myocardial infarction; Z20.828 Contact with and (suspected) exposure to other viral communicable diseases; Z86.718 Personal history of other venous thrombosis and embolism; Z79.4 Long term (current) use of insulin; Z79.51 Long term (current) use of inhaled steroids; Z79.899 Other long term (current) drug therapy; Z93.2 Ileostomy status
CPT/HCPCS: 36415; 71045; 71250; 80048; 80053; 81001; 82550; 82803; 82962; 83036; 83605; 83880; 84484; 85025; 85610; 87040; 87070; 87077; 87086; 87150; 87186; 87205; 87635; 93005; 93010; 96365; 99285; C9803; J0692; J0696; J1170; J1642; J1644; J1815; J2020; J3490; J7060; J7120

== ENCOUNTER 2020-04-10 08:41 | Outpatient (CLI) | payer MEDICARE, MEDICAID ==
[2020-04-10 09:17] VITALS: BP 119/65
== END 2020-04-10 14:36 | disposition home or self-care (01) ==
LOC: II 08:41 → 5TH 08:48 → II 14:36
PROVIDERS: ATTEND Internal Medicine
DX: E86.0 Dehydration (principal); K94.19 Other complications of enterostomy
CPT/HCPCS: 96360; 96361; J1642

== ENCOUNTER 2020-04-26 10:04 | Outpatient (CLI) | payer MEDICARE, MEDICAID ==
[2020-04-26] MEDS ORDERED: NORMAL SALINE 1000 ML 1,000 ML IV PRN (10:19)
[2020-04-26] MEDS ORDERED: NORMAL SALINE 500 ML IV PRN (10:36)
[2020-04-26 10:52] VITALS: BP 155/67
== END 2020-04-26 15:45 | disposition home or self-care (01) ==
LOC: II 10:04 → 5TH 10:06 → II 15:45
PROVIDERS: ATTEND Internal Medicine
DX: E86.0 Dehydration (principal); K94.19 Other complications of enterostomy
CPT/HCPCS: 96360; 96361; J1642

== ENCOUNTER 2020-05-01 08:41 | Outpatient (CLI) | payer MEDICARE, MEDICAID ==
[2020-05-01 09:49] VITALS: BP 127/69
== END 2020-05-01 14:00 | disposition home or self-care (01) ==
LOC: II 08:41 → 5TH 08:45 → II 14:00
PROVIDERS: ATTEND Internal Medicine
DX: E86.0 Dehydration (principal); K94.19 Other complications of enterostomy
CPT/HCPCS: 96360; 96361; J1642

== ENCOUNTER 2020-05-08 08:34 | Outpatient (CLI) | payer MEDICARE, MEDICAID ==
[2020-05-08 08:40] VITALS: BP 163/83
[2020-05-08] MEDS ORDERED: NORMAL SALINE 500 ML IV PRN (08:42)
== END 2020-05-08 14:15 | disposition home or self-care (01) ==
LOC: II 08:34 → 5TH 08:36 → II 14:15
PROVIDERS: ATTEND Internal Medicine
DX: E86.0 Dehydration (principal); K94.19 Other complications of enterostomy
CPT/HCPCS: 96360; J1642; 96361

== ENCOUNTER 2020-05-15 08:36 | Outpatient (CLI) | payer MEDICARE, MEDICAID ==
[2020-05-15 09:07] VITALS: BP 145/77
[2020-05-15] MEDS ORDERED: NORMAL SALINE 500 ML IV PRN (09:18)
== END 2020-05-15 14:18 | disposition home or self-care (01) ==
LOC: II 08:36 → 5TH 08:39 → II 14:18
PROVIDERS: ATTEND Internal Medicine
DX: E86.0 Dehydration (principal); K94.19 Other complications of enterostomy
CPT/HCPCS: 96360; 96361; J1642

== ENCOUNTER 2020-05-22 08:33 | Outpatient (CLI) | payer MEDICARE, MEDICAID ==
[2020-05-22 08:59] VITALS: BP 161/92
== END 2020-05-22 14:11 | disposition home or self-care (01) ==
LOC: II 08:33 → 5TH 08:35 → II 14:11
PROVIDERS: ATTEND Internal Medicine
DX: E86.0 Dehydration (principal); K94.19 Other complications of enterostomy
CPT/HCPCS: 96360; 96361; J1642

== ENCOUNTER 2020-05-29 08:39 | Outpatient (CLI) | payer MEDICARE, MEDICAID ==
[2020-05-29 09:04] VITALS: BP 161/80
[2020-05-29] MEDS ORDERED: NORMAL SALINE 500 ML IV PRN (09:06)
== END 2020-05-29 14:28 | disposition home or self-care (01) ==
LOC: II 08:39 → 5TH 08:57 → II 14:28
PROVIDERS: ATTEND Internal Medicine
DX: E86.0 Dehydration (principal); K94.19 Other complications of enterostomy
CPT/HCPCS: 96360; 96361; J1642

== ENCOUNTER 2020-06-01 13:28 | Inpatient (IN) | payer MEDICARE, MEDICAID ==
[2020-06-01] MEDS ORDERED: OXYCODONE HCL IR 5 MG TABLET PO ONE (14:08)
--- NOTE | 2020-06-01 14:11 | ER Document Report ---
ED Respiratory Problem - General Chief Complaint: Shortness Of Breath Stated Complaint: SHORTNESS OF BREATH Time Seen by Provider: 06/01/20 13:38 Notes: This 64-year-old woman presents to the emergency department with a history of awakening this morning to find that her O2 sat was low. EMS was called to the home found that the oxygen saturation was in the 80% range. Patient was transported to the emergency department for further evaluation and treatment. She denies chest pain, palpitations or worsening edema. She has a history of congestive heart failure, however states that she is not on diuretics as it has caused her difficulties with her electrolytes in the past. She has a ileostomy in place and states that she has had to get IV fluids on multiple occasions in the past. TRAVEL OUTSIDE OF THE [place] IN LAST 30 DAYS: No - Related Data Allergies/Adverse Reactions: ciprofloxacin [From Cipro] Allergy (Severe, Verified 03/19/20 16:20) Hallucinations morphine [Morphine] Allergy (Unknown, Verified 03/19/20 16:20) Home Medications: Sodium Bicarb, Calcitrol, Metoprolol, Vitamin D, [place] Past Medical History - Social History Smoking Status: Never Smoker Family History: Hypertension - Past Medical History Cardiac Medical History: Reports: Hx Atrial Fibrillation, Hx Coronary Artery Disease, Hx DVT, Hx Heart Attack - 2002, Hx Hypercholesterolemia, Hx Hypertension Pulmonary Medical History: Reports: Hx Pneumonia - 2006 Neurological Medical History: Endocrine Medical History: Reports: Hx Diabetes Mellitus Type 1, Hx Diabetes Mellitus Type 2 Renal/ Medical History: Reports: Hx Ovarian Cysts, Hx Renal Insufficiency. Denies: Hx Peritoneal Dialysis Malignancy Medical History: Reports: Hx Renal (Kidney) Cancer GI Medical History: Reports: Hx Gastroesophageal Reflux Disease, Hx Hiatal Hernia, Hx Irritable Bowel, Hx Ulcer Musculoskeletal Medical History: Reports Hx Arthritis - Back, Knees Psychiatric Medical History: Denies: Hx Depression Traumatic Medical History: Reports: Hx Fractures Past Surgical History: Reports: Hx Abdominal Surgery - COLOSTOMY. INTESTINAL RUPTURE, Hx Bowel Surgery - COLECTOMY/ileostomy, Hx Cardiac Catheterization, Hx Cardiac Surgery - STENTS, Hx Colostomy, Hx Coronary Stent, Hx Hysterectomy, Hx Ileostomy, Hx Orthopedic Surgery - L knee replacement, right ankle pin, Other - Tracheostomy 10 yrs ago - Immunizations Immunizations up to date: Yes Hx Diphtheria, Pertussis, Tetanus Vaccination: No Hx Pneumococcal Vaccination: 09/19/13 Review of Systems - Review of Systems Notes: Constitutional: no fever. HENT: Negative for sore throat. Eyes: Negative for visual changes. Cardiovascular: Negative for chest pain. Respiratory: + shortness of breath. Gastrointestinal: Negative for abdominal pain, vomiting or diarrhea. Genitourinary: Negative for dysuria. Musculoskeletal: Negative for back pain. Skin: Negative for rash. Neurological: Negative for headaches, weakness or numbness. 10 point ROS negative except as marked above and in HPI. Physical Exam - Vital signs Vitals: Resp Pulse Ox 19 95 06/01/20 13:45 06/01/20 13:45 - Notes Notes: PHYSICAL EXAMINATION: Physical Exam: General: Morbidly obese 64-year-old woman in no acute distress HEENT: NC/AT, pupils equal round and reactive to light, MM moist,nares clear, oropharynx clear, airway patent Neck: supple, no adenopathy, no masses. Good range of motion Lungs: Good air movement, no wheezes rales or rhonchi CVS: Regular rate and rhythm no murmur gallop or rub Abdomen: Soft, active, nontender, no masses, no hepatosplenomegaly Ext: 2+ lower extremity edema, clubbing or cyanosis. Neuro: Alert and responsive, moving all 4 extremities on command, cranial nerves intact, no focal findings Course - Re-evaluation Re-evalutation: 06/01/20 17:23 Patient examined elevated BUN/creatinine, elevated troponin and BNP, EKG sinus tachycardia with LVH and Q waves in 3 and aVF. I have explained to the patient that given all of her findings she will need to be brought into the hospital for further evaluation and treatment. A coronavirus swab was performed, patient is made person of interest. 06/01/20 18:55 She began itching after the onset of the infusion of Rocephin. She also began having wheezing and some difficulty with her respiration. She is given IV Benadryl 25 mg, Solu-Medrol 125 mg, and a DuoNeb treatment. The patient now notes some improvement in her O2 sat has improved to 93%. - Vital Signs Vital signs: Temp Pulse Resp BP Pulse Ox 98.8 F 104 H 16 107/58 L 93 06/01/20 13:46 06/01/20 13:46 06/01/20 18:01 06/01/20 18:00 06/01/20 18:01 - Laboratory Result Diagrams: 06/01/20 16:08 06/01/20 16:08 Laboratory results interpreted by me: 06/01/20 06/01/20 06/01/20 16:08 16:08 16:08 WBC 20.2 H Hgb 10.1 L Hct 32.9 L MCHC 30.7 L RDW 18.7 H Plt Count 143 L Seg Neuts % (Manual) 88 H Band Neutrophils % 1 L Lymphocytes % (Manual) 7 L Abs Neuts (Manual) 18.0 H BUN 31 H Creatinine 2.60 H Est GFR ( Amer) 22 L Est GFR (MDRD) Non-Af 19 L Glucose 169 H AST 60 H NT-Pro-B Natriuret Pep 9260 H Albumin 3.2 L Urine Protein Urine Glucose (UA) 06/01/20 16:53 WBC Hgb Hct MCHC RDW Plt Count Seg Neuts % (Manual) Band Neutrophils % Lymphocytes % (Manual) Abs Neuts (Manual) BUN Creatinine Est GFR ( Amer) Est GFR (MDRD) Non-Af Glucose AST NT-Pro-B Natriuret Pep Albumin Urine Protein 100 H Urine Glucose (UA) >=500 H - Diagnostic Test Radiology reviewed: Image reviewed, Reports reviewed Radiology results interpreted by me: 06/01/20 17:28 Chest x-ray: Reveals right-sided infiltrate compared to her previous x-ray. - EKG Interpretation by Me Rate: Tachycardia - EKG interpreted by Dr. Barnes: Sinus tachycardia, posb323, QT 356, Q waves in III and aVF, IA interval 204, first-degree AV block. No acute ST or T wave abnormalities, no ischemic findings, no significant changes compared to EKG dated 02/2019. Critical Care Note - Critical Care Note Total time excluding time spent on procedures (mins): 60 - Critical care time spent obtaining history from patient or surrogate, discussions with consultants, development of treatment plan with patient or surrogate, evaluation of patient's response to treatment, examination of patient, ordering and performing treatments and interventions, ordering and review of laboratory studies, re- evaluation of patient's condition, ordering and review of radiographic studies and review of old charts Discharge - Discharge Clinical Impression: JESUS (acute kidney injury), Chronic systolic heart failure, Obesity hypov entilation syndrome, Morbid obesity due to excess calories, Suspected 2019 novel coronavirus infection Pneumonia Qualifiers: Pneumonia type: due to unspecified organism Laterality: right Lung location: lower lobe of lung Qualified Code(s): J18.9 - Pneumonia, unspecified organism Disposition: ADMITTED INPATIENT Admitting Provider: [facility] Unit Admitted: [facility]
--- NOTE | 2020-06-01 14:19 | RADIOLOGY REPORT (SQ) ---
EXAM DESCRIPTION: CHEST SINGLE VIEW IMAGES COMPLETED DATE/TIME: 06/01/2020 1:54 pm REASON FOR STUDY: sob COMPARISON: 03/19/2020 TECHNIQUE: Single frontal radiographic view of the chest acquired. NUMBER OF VIEWS: One view. LIMITATIONS: None. FINDINGS: LUNGS AND PLEURA: No pneumothorax. No consolidation. Similar small left pleural effusion. MEDIASTINUM AND HILAR STRUCTURES: Stable. HEART AND VASCULAR STRUCTURES: Stable. BONES: No acute findings. HARDWARE: Right chest port. OTHER: No other significant finding. IMPRESSION: NO ACUTE FINDINGS.Similar small left pleural effusion. TECHNICAL DOCUMENTATION: JOB ID: [id number] [place]-72 2010 [employer]- All Rights Reserved Reading location - IP/workstation name: [email or web address]
[2020-06-01 16:37] LABS: HEMATOCRIT 32.9 % (36.0-47.0); HEMOGLOBIN 10.1 g/dL (12.0-15.5); MEAN CORPUSCULAR HEMOGLOBIN 27.1 pg (27.0-33.4); MEAN CORPUSCULAR HGB CONC 30.7 g/dL (32.0-36.0); MEAN CORPUSCULAR VOLUME 88 fl (80-97); PLATELET COUNT 143 10^3/uL (150-450); RED BLOOD COUNT 3.73 10^6/uL (3.72-5.28); RED CELL DISTRIBUTION WIDTH 18.7 % (11.5-14.0); WHITE BLOOD COUNT 20.2 10^3/uL (4.0-10.5)
[2020-06-01 16:49] LABS: ALBUMIN 3.2 g/dL (3.5-5.0); ALKALINE PHOSPHATASE 71 U/L (38-126); ANION GAP 8 (5-19); ASPARTATE AMINO TRANSFERASE 60 U/L (14-36); BILIRUBIN,DIRECT 0.4 mg/dL (0.0-0.4); BILIRUBIN,TOTAL 0.6 mg/dL (0.2-1.3); BLOOD UREA NITROGEN 31 mg/dL (7-20); CALCIUM 9.1 mg/dL (8.4-10.2); CARBON DIOXIDE 28 mmol/L (22-30); CHLORIDE 103 mmol/L (98-107); GLUCOSE 169 mg/dL (75-110); POTASSIUM 4.7 mmol/L (3.6-5.0); TOTAL PROTEIN 6.8 g/dL (6.3-8.2)
[2020-06-01 17:07] LABS: ABSOLUTE LYMPHOCYTES# (MANUAL) 1.4 10^3/uL (0.5-4.7); ABSOLUTE MONOCYTES # (MANUAL) 0.8 10^3/uL (0.1-1.4); BAND NEUTROPHILS % (MANUAL) 1 % (3-5); BASOPHILS % (MANUAL) 0 % (0-2); EOSINOPHILS % (MANUAL) 0 % (0-6); LYMPHOCYTES % (MANUAL) 7 % (13-45); MONOCYTES % (MANUAL) 4 % (3-13); NUCLEATED RED BLOOD CELLS 1 /100 WBC (0); SEGMENTED NEUTROPHILS % (MAN) 88 % (42-78); TOTAL CELLS COUNTED 100
[2020-06-01 17:08] LABS: ANISOCYTOSIS 2+; PLATELET COMMENT DECREASED; PLATELET GIANT PRESENT; POLYCHROMASIA SLIGHT
[2020-06-01 17:09] LABS: TROPONIN I 2.07 ng/mL
[2020-06-01 17:13] LABS: APPEARANCE,URINE CLEAR; BILIRUBIN,URINE NEGATIVE (NEGATIVE); COLOR,URINE YELLOW; GLUCOSE, URINE >=500 mg/dL (NEGATIVE); KETONES,URINE NEGATIVE (NEGATIVE); LEUKOCYTE ESTERASE,URINE NEGATIVE (NEGATIVE); NITRITE,URINE NEGATIVE (NEGATIVE); PROTEIN,URINE 100 mg/dL (NEGATIVE); URINE SPECIFIC GRAVITY 1.015; UROBILINOGEN,URINE NEGATIVE mg/dL (<2.0)
[2020-06-01] MEDS ORDERED: CEFTRIAXONE INJ 1000 MG VIAL IV ONE (17:37)
[2020-06-01] MEDS ORDERED: AZITHROMYCIN 250 MG TABLET PO ONE (17:37)
[2020-06-01] MEDS ORDERED: DIPHENHYDRAMINE HCL 50 MG/ML VIAL ONE (18:38)
[2020-06-01] MEDS ORDERED: METHYLPREDNISOLONE INJ 125 MG/2 ML SDV ONE (18:43)
[2020-06-01] MEDS ORDERED: IPRATROPIUM/ALBUTEROL 0.5-2.5 MG/3 ML AMPUL NEB ONE (18:43)
--- NOTE | 2020-06-01 20:25 | RADIOLOGY REPORT (SQ) ---
CLINICAL INDICATION: copd. . TECHNIQUE: Noncontrast spiral axial CT imaging was obtained of the chest with multiplanar reconstructions. This exam was performed according to our departmental dose-optimization program, which includes automated exposure control, adjustment of the mA and/or kV according to patient size and/or use of iterative reconstruction techniques. COMPARISON: March 22, 2020. CORRELATION: None. FINDINGS: The heart is enlarged with coronary calcification but stable. No pericardial effusion. No bulky mediastinal adenopathy. [place] mediastinal lymph nodes. Coarse calcification within the thyroid, presumed related to a nodule The lungs definite progressive vascular congestion. Minimal interstitial changes, bilaterally. No dense consolidation. Detail obscured by motion. Visualized abdominal contents are unremarkable. Visualized bones demonstrate age-appropriate osteoarthritis. Ankylosing arthropathy of the thoracic spine. IMPRESSION: Chronic parenchymal lung change. Mild progressive congestive change when compared to March. Enlarged heart, stable.
[2020-06-01] MEDS ORDERED: ACETAMINOPHEN 325 MG TABLET PO PRN (21:04)
[2020-06-01] MEDS ORDERED: GLUCAGON,HUMAN RECOMB 1 MG INJ IM PRN (21:13)
[2020-06-01] MEDS ORDERED: DEXTROSE 50%-WATER 25 GM/50 ML DISP.SYRIN IV PRN ×2 (21:13)
[2020-06-01] MEDS ORDERED: DEXTROSE 40% GEL 15 GM TUBE PO PRN ×2 (21:13)
[2020-06-01] MEDS ORDERED: AZTREONAM INJ 1 GM VIAL IV SCH (21:30)
[2020-06-01 21:38] LABS: C-REACTIVE PROTEIN 53.4 mg/L (<10.0)
--- NOTE | 2020-06-01 21:51 | EKG REPORT ---
SEVERITY:- ABNORMAL ECG - SINUS TACHYCARDIA LVH BY VOLTAGE PROBABLE INFERIOR INFARCT, AGE INDETERMINATE : Confirmed by: Cari Sharp MD 01-Jun-2020 21:49:57
[2020-06-01] MEDS ORDERED: HEPARIN SOD (PORCINE) 5,000 UNIT/ML 1 ML VIAL SUBCUT SCH (22:00)
[2020-06-01 22:07] LABS: FERRITIN 65.4 ng/mL (11.1-264.0)
[2020-06-01 22:20] LABS: INTERNATIONAL RATION (INR) 1.29; PARTIAL THROMBOPLASTIN TIME 33.3 SEC (23.5-35.8); PROTHROMBIN TIME 16.2 SEC (11.4-15.4)
[2020-06-01 22:26] LABS: PHOSPHORUS 4.8 mg/dL (2.5-4.5)
[2020-06-01 22:37] LABS: CREATINE KINASE MB 9.98 ng/mL (<4.55)
--- NOTE | 2020-06-01 22:38 | RADIOLOGY REPORT (SQ) ---
CLINICAL INDICATION: leucocytosis ? cause . . TECHNIQUE: Noncontrast spiral axial CT imaging was obtained of the abdomen and pelvis with multiplanar reconstructions. This exam was performed according to our departmental dose-optimization program, which includes automated exposure control, adjustment of the mA and/or kV according to patient size and/or use of iterative reconstruction techniques. COMPARISON: April 16, 2019. CORRELATION: None. FINDINGS: Abdomen: The lung bases demonstrate progressive airspace disease at both lung bases.. The heart is prominent with coronary calcification. No evidence of pleural or pericardial fluid. The liver is heterogeneous. The gallbladder is distended with cholelithiasis but no inflammatory change. The pancreas is of grossly normal contour on this noncontrast examination. The spleen is unremarkable. The adrenals are unremarkable. The kidneys appear grossly normal without evidence of urolithiasis or hydronephrosis. There is no evidence of free air. No free fluid. No bulky adenopathy. Abdominal aorta is nonaneurysmal. Mild stranding within the peritoneal fat, progressive. Shot[place] mesenteric and intracranial lymph nodes Ostomy left upper quadrant, present previously Pelvis: The bowel is nonobstructed. The bowel is unopacified with oral contrast. Pelvic contents are unremarkable. The appendix is not seen. Visualized bones demonstrate age-appropriate osteoarthritis. Ankylosing arthropathy of the thoracic spine. IMPRESSION: Mild stranding within the peritoneal fat, nonspecific but new from prior. Shotty retroperitoneal and mesenteric adenopathy, mildly progressive
[2020-06-01 22:40] LABS: FREE T4 (FREE THYROXINE) 1.21 ng/dL (0.78-2.19)
[2020-06-01 22:43] LABS: TROPONIN I 3.62 ng/mL
[2020-06-01 22:54] LABS: THYROID STIMULATING HORMONE 0.17 uIU/mL (0.47-4.68)
[2020-06-01] MEDS ORDERED: CLOPIDOGREL BISULFATE 300 MG TABLET PO ONE (22:55)
[2020-06-01] MEDS ORDERED: ATORVASTATIN CALCIUM 80 MG TABLET PO ONE (22:57)
[2020-06-01] MEDS ORDERED: FUROSEMIDE INJ/PF 20 MG/2 ML SDV IV ONE (22:58)
[2020-06-01] MEDS ORDERED: ASPIRIN 81 MG TABLET, CHEWABLE PO ONE (23:00)
[2020-06-01 23:13] LABS: ABSOLUTE MONOCYTES (AUTO) 0.7 10^3/uL (0.1-1.4); ABSOLUTE NEUT (AUTO) 14.7 10^3/uL (1.7-8.2); BASOPHILS % (AUTO) 0.2 % (0-2); HEMATOCRIT 33.3 % (36.0-47.0); HEMOGLOBIN 10.7 g/dL (12.0-15.5); LYMPHOCYTES % (AUTO) 6.2 % (13-45); MEAN CORPUSCULAR HEMOGLOBIN 27.9 pg (27.0-33.4); MEAN CORPUSCULAR HGB CONC 32.1 g/dL (32.0-36.0); MEAN CORPUSCULAR VOLUME 87 fl (80-97); MONOCYTES % (AUTO) 4.2 % (3-13); PLATELET COUNT 145 10^3/uL (150-450); RED BLOOD COUNT 3.85 10^6/uL (3.72-5.28); RED CELL DISTRIBUTION WIDTH 18.7 % (11.5-14.0); SEGMENTED NEUTROPHILS % (AUTO) 89.4 % (42-78); TOTAL CELLS COUNTED % (AUTO) 100 %; WHITE BLOOD COUNT 16.5 10^3/uL (4.0-10.5)
[2020-06-01 23:14] LABS: INTERNATIONAL RATION (INR) 1.31; PROTHROMBIN TIME 16.5 SEC (11.4-15.4)
[2020-06-01 23:15] LABS: PARTIAL THROMBOPLASTIN TIME 34.9 SEC (23.5-35.8)
[2020-06-01 23:19] LABS: URINE AMPHETAMINES SCREEN NEGATIVE; URINE BARBITURATES SCREEN NEGATIVE; URINE BENZODIAZEPINES SCREEN NEGATIVE; URINE COCAINE SCREEN NEGATIVE; URINE MARIJUANA (THC) SCREEN NEGATIVE; URINE METHADONE SCREEN NEGATIVE; URINE PHENCYCLIDINE SCREEN NEGATIVE
[2020-06-01] MEDS ORDERED: AZTREONAM INJ 1 GM VIAL ONE (23:43)
[2020-06-01] MEDS: AZTREONAM 1 GM in DEXTROSE 5%-WATER 50 ML IV SCH (23:54)
[2020-06-02] MEDS ORDERED: HEPARIN SOD (PORCINE) 5,000 UNIT/ML 1 ML VIAL ONE (00:12)
[2020-06-02] MEDS: HEPARIN SOD (PORCINE) 1,000 UNIT/ML 10 ML VIAL IV PRN (00:26)
[2020-06-02] MEDS: HEPARIN SODIUM,PORCINE/D5W 25,000 UNIT/250 ML RTUINJ IV PRN (00:29)
[2020-06-02] MEDS: INSULIN LISPRO 100 UNIT/ML 3 ML VIAL SUBCUT SCH ×5 (00:30→22:25)
[2020-06-02 01:12] LABS: ARTERIAL BLOOD BASE EXCESS 1.5 mmol/L; ARTERIAL BLOOD H2CO3 2.04 mmol/L (1.05-1.35); ARTERIAL BLOOD HCO3 30.1 mmol/L (20-24); ARTERIAL BLOOD O2 SATURATION 53.1 % (94-98); ARTERIAL BLOOD PCO2 67.9 mmHg (35-45); ARTERIAL BLOOD PH 7.27 (7.35-7.45); ARTERIAL BLOOD TOTAL CO2 32.2 mmol/L (21-25)
[2020-06-02 01:15] LABS: ARTERIAL BLOOD FIO2 32%
[2020-06-02 01:16] LABS: ARTERIAL BLOOD PO2 32.9 mmHg (80-100)
[2020-06-02 02:42] LABS: ARTERIAL BLOOD BASE EXCESS 2.1 mmol/L; ARTERIAL BLOOD H2CO3 1.77 mmol/L (1.05-1.35); ARTERIAL BLOOD HCO3 29.6 mmol/L (20-24); ARTERIAL BLOOD O2 SATURATION 93.7 % (94-98); ARTERIAL BLOOD PCO2 58.9 mmHg (35-45); ARTERIAL BLOOD PH 7.32 (7.35-7.45); ARTERIAL BLOOD PO2 75.4 mmHg (80-100); ARTERIAL BLOOD TOTAL CO2 31.4 mmol/L (21-25)
[2020-06-02 02:44] LABS: ARTERIAL BLOOD FIO2 3 L
[2020-06-02 04:33] LABS: ABSOLUTE MONOCYTES (AUTO) 0.2 10^3/uL (0.1-1.4); ABSOLUTE NEUT (AUTO) 14.9 10^3/uL (1.7-8.2); BASOPHILS % (AUTO) 0.1 % (0-2); HEMATOCRIT 32.2 % (36.0-47.0); HEMOGLOBIN 10.4 g/dL (12.0-15.5); LYMPHOCYTES % (AUTO) 6.5 % (13-45); MEAN CORPUSCULAR HGB CONC 32.1 g/dL (32.0-36.0); MEAN CORPUSCULAR VOLUME 87 fl (80-97); MONOCYTES % (AUTO) 1.3 % (3-13); PLATELET COUNT 127 10^3/uL (150-450); RED BLOOD COUNT 3.69 10^6/uL (3.72-5.28); RED CELL DISTRIBUTION WIDTH 18.6 % (11.5-14.0); SEGMENTED NEUTROPHILS % (AUTO) 92.1 % (42-78); TOTAL CELLS COUNTED % (AUTO) 100 %; WHITE BLOOD COUNT 16.2 10^3/uL (4.0-10.5)
[2020-06-02 05:13] LABS: CREATINE KINASE MB 11.4 ng/mL (<4.55)
[2020-06-02] MEDS: AZTREONAM 1 GM in DEXTROSE 5%-WATER 50 ML IV SCH ×3 (05:14→22:25)
[2020-06-02 05:38] LABS: ALBUMIN 3.2 g/dL (3.5-5.0); ALKALINE PHOSPHATASE 63 U/L (38-126); ANION GAP 9 (5-19); ASPARTATE AMINO TRANSFERASE 64 U/L (14-36); BILIRUBIN,DIRECT 0.5 mg/dL (0.0-0.4); BILIRUBIN,TOTAL 0.6 mg/dL (0.2-1.3); BLOOD UREA NITROGEN 35 mg/dL (7-20); CARBON DIOXIDE 28 mmol/L (22-30); CHLORIDE 102 mmol/L (98-107); CHOLESTEROL 88.71 mg/dL (0-200); GLUCOSE 198 mg/dL (75-110); POTASSIUM 4.5 mmol/L (3.6-5.0); TOTAL PROTEIN 7.1 g/dL (6.3-8.2); TRIGLYCERIDES 137 mg/dL (<150); VLDL CHOLESTEROL 27.4 mg/dL (10-31)
[2020-06-02 05:55] LABS: DIRECT LDL < 30 mg/dL (<100)
[2020-06-02 06:31] LABS: ARTERIAL BLOOD BASE EXCESS 0.2 mmol/L; ARTERIAL BLOOD H2CO3 1.45 mmol/L (1.05-1.35); ARTERIAL BLOOD HCO3 26.2 mmol/L (20-24); ARTERIAL BLOOD O2 SATURATION 92.9 % (94-98); ARTERIAL BLOOD PCO2 48.3 mmHg (35-45); ARTERIAL BLOOD PH 7.35 (7.35-7.45); ARTERIAL BLOOD TOTAL CO2 27.7 mmol/L (21-25)
[2020-06-02 06:32] LABS: ARTERIAL BLOOD FIO2 45%
[2020-06-02] MEDS: ASPIRIN 81 MG TABLET, CHEWABLE PO SCH (10:31)
[2020-06-02] MEDS: CLOPIDOGREL BISULFATE 75 MG TABLET PO SCH (10:31)
--- NOTE | 2020-06-02 12:29 | PDOC H&P ---
History of Present Illness Admission Date/PCP: 06/01/20 17:52 LISA MATA MD History of Present Illness: RANDEE VELÁSQUEZ is a 64 year old female, patient is well-known to me she has a history of chronic diastolic heart failure, coronary artery disease with stent placement, chronic kidney disease stage III, high output ileostomy bag, total colectomy, she came to the emergency room for evaluation of shortness of breath. The history was that she woke up earlier in the morning and she found that the oxygen saturation was in the low 80s, she called the rescue squad, EMS found that the oxygen saturation was in the low 80s she was transferred to the emergency room for evaluation. She was evaluated in the emergency room, the twelve-lead EKG demonstrated sinus rhythm with Q waves in lead III and aVF, the B type natruretic peptide was elevated the serum troponin was elevated as well a chest x-ray that was done suggest CHF. She was also found to have profound leukocytosis the white blood cell count was 20,000 with a left shift. There was no apparent source of infection, the chest x-ray did not demonstrate any infiltrate or any consolidation that would suggest pneumonia, the urinalysis was grossly normal. She also complained of abdominal pain, on examination of the abdomen there was a mild tenderness on palpation of the abdomen but it was soft there was no guarding there was no rebound tenderness. The CT of the chest that was done demonstrated enlarged heart with coronary calcification, no pericardial effusion, there was no bulky adenopathy there was shotty mediastinal lymph nodes there was progressive vascular congestion in the lung, minimal interstitial changes bilaterally no dense consolidation. CAT scan of the abdomen was done, the liver was heterogeneous, the gallbladder is distended with cholelithiasis but no inflammatory change the pancreas is of normal size the spleen is unremarkable the kidneys appear normal, there is no free air no free fluid Past Medical History Cardiac Medical History: Reports: Atrial Fibrillation, Coronary Artery Disease, DVT, Myocardial Infarction - 2002, Hyperlipidema, Hypertension, Other - Chronic diastolic heart failure Pulmonary Medical History: Reports: Pneumonia - 2007 Neurological Medical History: Endocrine Medical History: Reports: Diabetes Mellitus Type 2, Obesity Renal/ Medical History: Reports: Chronic Kidney Disease, Other - Chronic kidney disease stage III Malignancy Medical History: Reports: Renal (Kidney) Cancer GI Medical History: Reports: Gastroesophageal Reflux Disease, Hiatal Hernia Musculoskeltal Medical History: Reports: Arthritis - Back, Knees Hematology: Reports: Anemia Past Surgical History Past Surgical History: Reports: Cardiac Catheterization, Colostomy, Coronary Stent, Hysterectomy, Ileostomy, Orthopedic Surgery - L knee replacement, right ankle pin, Other - Tracheostomy 10 yrs ago, cryosurgery of renal cell cancer Social History Smoking Status: Never Smoker Frequency of Alcohol Use: None Hx Recreational Drug Use: No Drugs: None Hx Prescription Drug Abuse: No Family History Family History: Hypertension Parental Family History Reviewed: Yes Children Family History Reviewed: Yes Sibling(s) Family History Reviewed.: Yes Medication/Allergy Home Medications: Albuterol Sulfate [Albuterol Sulfate Hfa] 2 puff IH Q4HP PRN 06/19/19 Allopurinol [Zyloprim 100 mg Tablet] 100 mg PO DAILY 06/19/19 Calcitriol [Rocaltrol 0.5 mcg Capsule] 0.5 mcg PO DAILY 06/19/19 Clobetasol Propionate [Temovate 0.05% Cream 15 gm] 1 applic TOP BID 06/19/19 Clotrimazole/Betamethasone Dip [Lotrisone Cream 15 gm] 1 applic TOP BID 06/19/19 Dapagliflozin Propanediol [Farxiga] 5 mg PO DAILY 06/19/19 Loperamide HCl [Imodium 2 mg Capsule] 2 mg PO Q3HP PRN 06/19/19 Metoprolol Succinate [Toprol Xl] 200 mg PO DAILY 06/19/19 Oxycodone HCl [Oxycodone HCl 10 MG Tablet] 10 mg PO Q8HP PRN 06/19/19 Sitagliptin Phosphate [Januvia 50 mg Tablet] 50 mg PO DAILY 06/19/19 Insulin Aspart [Novolog Flexpen] 0 unit SQ .SLIDING SCALE 02/19/20 Magnesium Oxide [Mag-Ox 400 mg Tablet] 400 mg PO DAILY 02/19/20 Pravastatin Sodium 40 mg PO DAILY 02/19/20 Fluconazole [Diflucan] 150 mg PO WE@1000 03/20/20 Nystatin [Mycostatin Topical Powder 15 gm] 1 applic TP BID 03/20/20 Pregabalin 150 mg PO Q8 03/20/20 Insulin Glargine,Hum.rec.anlog [Basaglar Kwikpen U-100] 60 unit SUBCUT Q12 06/02/20 Naloxone HCl [Narcan] 1 spray NASL ASDIR PRN 06/02/20 Allergies/Adverse Reactions: ciprofloxacin [From Cipro] Allergy (Severe, Verified 03/19/20 16:20) Hallucinations ceftriaxone Allergy (Intermediate, Verified 06/01/20 20:31) Respiratory distress morphine [Morphine] Allergy (Unknown, Verified 03/19/20 16:20) azithromycin Allergy (Verified 06/01/20 20:31) Review of Systems Constitutional: PRESENT: fatigue Eyes: ABSENT: visual disturbances Ears: ABSENT: hearing changes Cardiovascular: PRESENT: dyspnea on exertion, edema Respiratory: PRESENT: cough, dyspnea Gastrointestinal: PRESENT: abdominal pain. ABSENT: as per HPI, bloating, coffee ground emesis, constipation, diarrhea, dysphagia, heartburn, hematemesis, hematochezia, melena, nausea, vomiting, other Genitourinary: ABSENT: dysuria, hematuria Musculoskeletal: ABSENT: joint swelling Integumentary: ABSENT: rash, wounds Neurological: ABSENT: abnormal gait, abnormal speech, confusion, dizziness, focal weakness, syncope Psychiatric: ABSENT: anxiety, depression, homidical ideation, suicidal ideation Endocrine: ABSENT: cold intolerance, heat intolerance, menstrual abnormalities, polydipsia, polyuria Hematologic/Lymphatic: ABSENT: easy bleeding, easy bruising, lymphadenopathy Physical Exam Vital Signs: Temp Pulse Resp BP Pulse Ox 97.8 F 79 18 122/71 97 06/02/20 10:00 06/02/20 08:00 06/02/20 08:40 06/02/20 08:00 06/02/20 08:40 Intake & Output 06/01/20 06/02/20 06/03/20 06:59 06:59 06:59 Intake Total 100 Output Total 250 Balance -150 Weight 121 kg General appearance: PRESENT: obese Head exam: PRESENT: atraumatic, normocephalic Eye exam: PRESENT: PERRLA Ear exam: PRESENT: normal external ear exam Mouth exam: PRESENT: moist, tongue midline Neck exam: PRESENT: full ROM Respiratory exam: PRESENT: rhonchi Cardiovascular exam: PRESENT: RRR Pulses: PRESENT: normal dorsalis pedis pul, +2 pedal pulses bilateral Vascular exam: PRESENT: normal capillary refill GI/Abdominal exam: PRESENT: normal bowel sounds, soft, other - Ileostomy bag Rectal exam: PRESENT: deferred Neurological exam: PRESENT: alert, CN II-XII grossly intact Psychiatric exam: PRESENT: appropriate affect, normal mood Skin exam: PRESENT: dry, intact, warm Results Laboratory Results: 06/02/20 04:19 06/02/20 04:19 06/01/20 06/01/20 06/01/20 16:08 16:08 16:08 WBC 20.2 H RBC 3.73 Hgb 10.1 L Hct 32.9 L MCV 88 MCH 27.1 MCHC 30.7 L RDW 18.7 H Plt Count 143 L Seg Neutrophils % Not Reportable Carbonic Acid HCO3/H2CO3 Ratio ABG pH ABG pCO2 ABG pO2 ABG HCO3 ABG O2 Saturation ABG Base Excess FiO2 Sodium 139.0 Potassium 4.7 Chloride 103 Carbon Dioxide 28 Anion Gap 8 BUN 31 H Creatinine 2.60 H Est GFR ( Amer) 22 L Glucose 169 H Calcium 9.1 Phosphorus Magnesium Ferritin 65.40 Total Bilirubin 0.6 AST 60 H Alkaline Phosphatase 71 Ammonia C-Reactive Protein 53.4 H Total Protein 6.8 Albumin 3.2 L Triglycerides Cholesterol LDL Cholesterol Direct VLDL Cholesterol HDL Cholesterol Amylase Lipase TSH Free T4 Urine Color Urine Appearance Urine pH Ur Specific [place] Urine Protein Urine Glucose (UA) Urine Ketones Urine Blood Urine Nitrite Ur Leukocyte Esterase Urine WBC (Auto) Urine RBC (Auto) 06/01/20 06/01/20 06/01/20 16:53 21:50 21:50 WBC RBC Hgb Hct MCV MCH MCHC RDW Plt Count Seg Neutrophils % Carbonic Acid HCO3/H2CO3 Ratio ABG pH ABG pCO2 ABG pO2 ABG HCO3 ABG O2 Saturation ABG Base Excess FiO2 Sodium Potassium Chloride Carbon Dioxide Anion Gap BUN Creatinine Est GFR ( Amer) Glucose Calcium Phosphorus 4.8 H Magnesium 1.6 Ferritin Total Bilirubin AST Alkaline Phosphatase Ammonia < 8.7 L C-Reactive Protein Total Protein Albumin Triglycerides Cholesterol LDL Cholesterol Direct VLDL Cholesterol HDL Cholesterol Amylase 49 Lipase 73.1 TSH Free T4 Urine Color YELLOW Urine Appearance CLEAR Urine pH 5.0 Ur Specific [place] 1.015 Urine Protein 100 H Urine Glucose (UA) >=500 H Urine Ketones NEGATIVE Urine Blood NEGATIVE Urine Nitrite NEGATIVE Ur Leukocyte Esterase NEGATIVE Urine WBC (Auto) 1 Urine RBC (Auto) 0 06/01/20 06/01/20 06/02/20 21:50 21:50 00:45 WBC 16.5 H RBC 3.85 Hgb 10.7 L Hct 33.3 L MCV 87 MCH 27.9 MCHC 32.1 RDW 18.7 H Plt Count 145 L Seg Neutrophils % 89.4 H Carbonic Acid 2.04 H HCO3/H2CO3 Ratio 14:1 ABG pH 7.27 L ABG pCO2 67.9 H ABG pO2 32.9 L* ABG HCO3 30.1 H ABG O2 Saturation 53.1 L ABG Base Excess 1.5 FiO2 32% Sodium Potassium Chloride Carbon Dioxide Anion Gap BUN Creatinine Est GFR ( Amer) Glucose Calcium Phosphorus Magnesium Ferritin Total Bilirubin AST Alkaline Phosphatase Ammonia C-Reactive Protein Total Protein Albumin Triglycerides Cholesterol LDL Cholesterol Direct VLDL Cholesterol HDL Cholesterol Amylase Lipase TSH 0.17 L Free T4 1.21 Urine Color Urine Appearance Urine pH Ur Specific [place] Urine Protein Urine Glucose (UA) Urine Ketones Urine Blood Urine Nitrite Ur Leukocyte Esterase Urine WBC (Auto) Urine RBC (Auto) 06/02/20 06/02/20 06/02/20 02:05 04:19 04:19 WBC 16.2 H RBC 3.69 L Hgb 10.4 L Hct 32.2 L MCV 87 MCH 28.0 MCHC 32.1 RDW 18.6 H Plt Count 127 L Seg Neutrophils % 92.1 H Carbonic Acid 1.77 H HCO3/H2CO3 Ratio 16:1 ABG pH 7.32 L ABG pCO2 58.9 H ABG pO2 75.4 L ABG HCO3 29.6 H ABG O2 Saturation 93.7 L ABG Base Excess 2.1 FiO2 3 L Sodium 138.6 Potassium 4.5 Chloride 102 Carbon Dioxide 28 Anion Gap 9 BUN 35 H Creatinine 2.51 H Est GFR ( Amer) 23 L Glucose 198 H Calcium 9.0 Phosphorus Magnesium Ferritin Total Bilirubin 0.6 AST 64 H Alkaline Phosphatase 63 Ammonia C-Reactive Protein Total Protein 7.1 Albumin 3.2 L Triglycerides 137 Cholesterol 88.71 LDL Cholesterol Direct < 30 VLDL Cholesterol 27.4 HDL Cholesterol 27 L Amylase Lipase TSH Free T4 Urine Color Urine Appearance Urine pH Ur Specific [place] Urine Protein Urine Glucose (UA) Urine Ketones Urine Blood Urine Nitrite Ur Leukocyte Esterase Urine WBC (Auto) Urine RBC (Auto) 06/02/20 06:10 WBC RBC Hgb Hct MCV MCH MCHC RDW Plt Count Seg Neutrophils % Carbonic Acid 1.45 H HCO3/H2CO3 Ratio 18:1 ABG pH 7.35 ABG pCO2 48.3 H ABG pO2 69.0 L ABG HCO3 26.2 H ABG O2 Saturation 92.9 L ABG Base Excess 0.2 FiO2 45% Sodium Potassium Chloride Carbon Dioxide Anion Gap BUN Creatinine Est GFR ( Amer) Glucose Calcium Phosphorus Magnesium Ferritin Total Bilirubin AST Alkaline Phosphatase Ammonia C-Reactive Protein Total Protein Albumin Triglycerides Cholesterol LDL Cholesterol Direct VLDL Cholesterol HDL Cholesterol Amylase Lipase TSH Free T4 Urine Color Urine Appearance Urine pH Ur Specific [place] Urine Protein Urine Glucose (UA) Urine Ketones Urine Blood Urine Nitrite Ur Leukocyte Esterase Urine WBC (Auto) Urine RBC (Auto) 06/01/20 06/01/20 06/01/20 16:08 21:50 21:50 Creatine Kinase 299 H CK-MB (CK-2) 9.98 H Troponin I 2.070 3.620 NT-Pro-B Natriuret Pep 9260 H 06/02/20 06/02/20 04:19 04:19 Creatine Kinase 249 H CK-MB (CK-2) 11.40 H Troponin I 3.000 NT-Pro-B Natriuret Pep Impressions: Abdomen/Pelvis CT 06/01/20 00:00 IMPRESSION: Mild stranding within the peritoneal fat, nonspecific but new from prior. Shotty retroperitoneal and mesenteric adenopathy, mildly progressive Chest CT 06/01/20 00:00 IMPRESSION: Chronic parenchymal lung change. Mild progressive congestive change when compared to March. Enlarged heart, stable. Chest X-Ray 06/01/20 13:33 IMPRESSION: NO ACUTE FINDINGS.Similar small left pleural effusion. Assessment & Plan - Diagnosis (1) NSTEMI (non-ST elevated myocardial infarction) Is this a current diagnosis for this admission?: Yes Plan: She has non-ST elevated [place], progressive elevated troponin, abnormal EKG, CHF, start IV heparin, antiplatelet Plavix and aspirin, statin and beta-simeon (2) Acute diastolic heart failure Is this a current diagnosis for this admission?: Yes Plan: Acute diastolic heart failure, history of chronic diastolic heart failure, consult cardiology Dr. Painting (3) Leucocytosis Qualifiers: Leukocytosis type: leukemoid reaction Qualified Code(s): D72.823 - Leukemoid reaction Is this a current diagnosis for this admission?: Yes Plan: She has profound leukocytosis with a left shift no apparent etiology she has abdominal pain, CT scan of abdomen demonstrated cholelithiasis but no inf lammatory change, empirically started on antibiotic IV aztreonam (4) Cholelithiasis Qualifiers: Cholelithiasis location: gallbladder Cholecystitis presence: without cholecystitis Biliary obstruction: without biliary obstruction Qualified Code(s): K80.20 - Calculus of gallbladder without cholecystitis without obstruction Is this a current diagnosis for this admission?: Yes (5) Chronic kidney disease, stage 3 Is this a current diagnosis for this admission?: Yes Plan: She has CKD stage III - Time Time Spent: Greater than 70 Minutes Medications reviewed and adjusted accordingly: Yes Anticipated Discharge Disposition: Home, Self Care Anticipated Discharge Timeframe: > 7 days - Inpatient Certification Based on my medical assessment, after consideration of the patient's comorbidities, presenting symptoms, or acuity I expect that the services needed warrant INPATIENT care.: Yes I certify that my determination is in accordance with my understanding of Medicare's requirements for reasonable and necessary INPATIENT services [42 CFR 412.3e].: Yes
[2020-06-02] MEDS ORDERED: LOPERAMIDE HCL 2 MG CAPSULE PO PRN (12:33)
[2020-06-02] MEDS ORDERED: ALBUTEROL SULFATE HFA (90 MCG/PUFF) 8 GM MDI (1 MDI/ER DISP) IH PRN (12:33)
--- NOTE | 2020-06-02 12:33 | PDOC PROGRESS REPORT ---
Subjective Progress Note for:: 06/02/20 Subjective:: Patient seen by the bedside, the troponin, peak at 3.6 now trending down, she complains of pain Reason For Visit: ACUTE CHF, ACUTE KIDNEY INJURY, LEUCOCYTOSIS?CAUSE Physical Exam Vital Signs: Temp Pulse Resp BP Pulse Ox 98.8 F 85 23 H 139/87 H 100 06/02/20 12:00 06/02/20 12:00 06/02/20 12:00 06/02/20 12:00 06/02/20 12:00 Intake & Output 06/01/20 06/02/20 06/03/20 06:59 06:59 06:59 Intake Total 100 Output Total 250 400 Balance -150 -400 Weight 121 kg General appearance: PRESENT: no acute distress Eye exam: PRESENT: PERRLA Respiratory exam: PRESENT: clear to auscultation stephen Cardiovascular exam: PRESENT: +S1, +S2 GI/Abdominal exam: PRESENT: soft Neurological exam: PRESENT: alert, CN II-XII grossly intact Results Laboratory Results: 06/02/20 04:19 06/02/20 04:19 06/01/20 06/01/20 06/01/20 16:08 16:08 16:08 WBC 20.2 H RBC 3.73 Hgb 10.1 L Hct 32.9 L MCV 88 MCH 27.1 MCHC 30.7 L RDW 18.7 H Plt Count 143 L Seg Neutrophils % Not Reportable Carbonic Acid HCO3/H2CO3 Ratio ABG pH ABG pCO2 ABG pO2 ABG HCO3 ABG O2 Saturation ABG Base Excess FiO2 Sodium 139.0 Potassium 4.7 Chloride 103 Carbon Dioxide 28 Anion Gap 8 BUN 31 H Creatinine 2.60 H Est GFR ( Amer) 22 L Glucose 169 H Calcium 9.1 Phosphorus Magnesium Ferritin 65.40 Total Bilirubin 0.6 AST 60 H Alkaline Phosphatase 71 Ammonia C-Reactive Protein 53.4 H Total Protein 6.8 Albumin 3.2 L Triglycerides Cholesterol LDL Cholesterol Direct VLDL Cholesterol HDL Cholesterol Amylase Lipase TSH Free T4 Urine Color Urine Appearance Urine pH Ur Specific [place] Urine Protein Urine Glucose (UA) Urine Ketones Urine Blood Urine Nitrite Ur Leukocyte Esterase Urine WBC (Auto) Urine RBC (Auto) 06/01/20 06/01/20 06/01/20 16:53 21:50 21:50 WBC RBC Hgb Hct MCV MCH MCHC RDW Plt Count Seg Neutrophils % Carbonic Acid HCO3/H2CO3 Ratio ABG pH ABG pCO2 ABG pO2 ABG HCO3 ABG O2 Saturation ABG Base Excess FiO2 Sodium Potassium Chloride Carbon Dioxide Anion Gap BUN Creatinine Est GFR ( Amer) Glucose Calcium Phosphorus 4.8 H Magnesium 1.6 Ferritin Total Bilirubin AST Alkaline Phosphatase Ammonia < 8.7 L C-Reactive Protein Total Protein Albumin Triglycerides Cholesterol LDL Cholesterol Direct VLDL Cholesterol HDL Cholesterol Amylase 49 Lipase 73.1 TSH Free T4 Urine Color YELLOW Urine Appearance CLEAR Urine pH 5.0 Ur Specific [place] 1.015 Urine Protein 100 H Urine Glucose (UA) >=500 H Urine Ketones NEGATIVE Urine Blood NEGATIVE Urine Nitrite NEGATIVE Ur Leukocyte Esterase NEGATIVE Urine WBC (Auto) 1 Urine RBC (Auto) 0 06/01/20 06/01/20 06/02/20 21:50 21:50 00:45 WBC 16.5 H RBC 3.85 Hgb 10.7 L Hct 33.3 L MCV 87 MCH 27.9 MCHC 32.1 RDW 18.7 H Plt Count 145 L Seg Neutrophils % 89.4 H Carbonic Acid 2.04 H HCO3/H2CO3 Ratio 14:1 ABG pH 7.27 L ABG pCO2 67.9 H ABG pO2 32.9 L* ABG HCO3 30.1 H ABG O2 Saturation 53.1 L ABG Base Excess 1.5 FiO2 32% Sodium Potassium Chloride Carbon Dioxide Anion Gap BUN Creatinine Est GFR ( Amer) Glucose Calcium Phosphorus Magnesium Ferritin Total Bilirubin AST Alkaline Phosphatase Ammonia C-Reactive Protein Total Protein Albumin Triglycerides Cholesterol LDL Cholesterol Direct VLDL Cholesterol HDL Cholesterol Amylase Lipase TSH 0.17 L Free T4 1.21 Urine Color Urine Appearance Urine pH Ur Specific [place] Urine Protein Urine Glucose (UA) Urine Ketones Urine Blood Urine Nitrite Ur Leukocyte Esterase Urine WBC (Auto) Urine RBC (Auto) 06/02/20 06/02/20 06/02/20 02:05 04:19 04:19 WBC 16.2 H RBC 3.69 L Hgb 10.4 L Hct 32.2 L MCV 87 MCH 28.0 MCHC 32.1 RDW 18.6 H Plt Count 127 L Seg Neutrophils % 92.1 H Carbonic Acid 1.77 H HCO3/H2CO3 Ratio 16:1 ABG pH 7.32 L ABG pCO2 58.9 H ABG pO2 75.4 L ABG HCO3 29.6 H ABG O2 Saturation 93.7 L ABG Base Excess 2.1 FiO2 3 L Sodium 138.6 Potassium 4.5 Chloride 102 Carbon Dioxide 28 Anion Gap 9 BUN 35 H Creatinine 2.51 H Est GFR ( Amer) 23 L Glucose 198 H Calcium 9.0 Phosphorus Magnesium Ferritin Total Bilirubin 0.6 AST 64 H Alkaline Phosphatase 63 Ammonia C-Reactive Protein Total Protein 7.1 Albumin 3.2 L Triglycerides 137 Cholesterol 88.71 LDL Cholesterol Direct < 30 VLDL Cholesterol 27.4 HDL Cholesterol 27 L Amylase Lipase TSH Free T4 Urine Color Urine Appearance Urine pH Ur Specific [place] Urine Protein Urine Glucose (UA) Urine Ketones Urine Blood Urine Nitrite Ur Leukocyte Esterase Urine WBC (Auto) Urine RBC (Auto) 06/02/20 06:10 WBC RBC Hgb Hct MCV MCH MCHC RDW Plt Count Seg Neutrophils % Carbonic Acid 1.45 H HCO3/H2CO3 Ratio 18:1 ABG pH 7.35 ABG pCO2 48.3 H ABG pO2 69.0 L ABG HCO3 26.2 H ABG O2 Saturation 92.9 L ABG Base Excess 0.2 FiO2 45% Sodium Potassium Chloride Carbon Dioxide Anion Gap BUN Creatinine Est GFR ( Amer) Glucose Calcium Phosphorus Magnesium Ferritin Total Bilirubin AST Alkaline Phosphatase Ammonia C-Reactive Protein Total Protein Albumin Triglycerides Cholesterol LDL Cholesterol Direct VLDL Cholesterol HDL Cholesterol Amylase Lipase TSH Free T4 Urine Color Urine Appearance Urine pH Ur Specific [place] Urine Protein Urine Glucose (UA) Urine Ketones Urine Blood Urine Nitrite Ur Leukocyte Esterase Urine WBC (Auto) Urine RBC (Auto) 06/01/20 06/01/20 06/01/20 16:08 21:50 21:50 Creatine Kinase 299 H CK-MB (CK-2) 9.98 H Troponin I 2.070 3.620 NT-Pro-B Natriuret Pep 9260 H 06/02/20 06/02/20 04:19 04:19 Creatine Kinase 249 H CK-MB (CK-2) 11.40 H Troponin I 3.000 NT-Pro-B Natriuret Pep Impressions: Abdomen/Pelvis CT 06/01/20 00:00 IMPRESSION: Mild stranding within the peritoneal fat, nonspecific but new from prior. Shotty retroperitoneal and mesenteric adenopathy, mildly progressive Chest CT 06/01/20 00:00 IMPRESSION: Chronic parenchymal lung change. Mild progressive congestive change when compared to March. Enlarged heart, stable. Chest X-Ray 09/26/20 13:33 IMPRESSION: NO ACUTE FINDINGS.Similar small left pleural effusion. Assessment & Plan - Diagnosis (1) NSTEMI (non-ST elevated myocardial infarction) Is this a current diagnosis for this admission?: Yes Plan: Continue IV heparin, antiplatelet aspirin and Plavix statin therapy beta-simeon (2) Acute diastolic heart failure Is this a current diagnosis for this admission?: Yes (3) Leucocytosis Qualifiers: Leukocytosis type: leukemoid reaction Qualified Code(s): D72.823 - Leukemoid reaction Is this a current diagnosis for this admission?: Yes Plan: Leukocytosis etiology unclear (4) Cholelithiasis Qualifiers: Cholelithiasis location: gallbladder Cholecystitis presence: without cholecystitis Biliary obstruction: without biliary obstruction Qualified Code(s): K80.20 - Calculus of gallbladder without cholecystitis without obstruction Is this a current diagnosis for this admission?: Yes (5) Chronic kidney disease, stage 3 Is this a current diagnosis for this admission?: Yes - Time Time Spent with patient: 35 or more minutes Level of Care: IMCU Anticipated discharge: Home Anticipated DC Timeframe: Other
[2020-06-02] MEDS ORDERED: (PENDING PHARMACY ID) (Metoprolol Succinate [Toprol Xl] 200 MG) PO SCH (12:45)
[2020-06-02] MEDS ORDERED: INSULIN GLARGINE HUM REC ANLOG 60 UNIT SUBCUT SCH (12:45)
[2020-06-02] MEDS ORDERED: (PENDING PHARMACY ID) (Dapagliflozin Propanediol [Farxiga] 5 MG) PO SCH (12:45)
[2020-06-02] MEDS ORDERED: (PENDING PHARMACY ID) (Calcitriol [Rocaltrol 0.5 Mcg Capsule] 0.5 MCG) PO SCH (12:45)
[2020-06-02] MEDS ORDERED: (PENDING PHARMACY ID) (Pregabalin [Pregabalin] 150 MG) PO SCH (14:00)
[2020-06-02] MEDS: HYDROMORPHONE HCL INJ/PF 2 MG/ML AMPULE IV PRN ×2 (14:32→22:26)
[2020-06-02] MEDS: MAGNESIUM OXIDE 400 MG TABLET PO SCH (14:36)
[2020-06-02] MEDS: SITAGLIPTIN PHOSPHATE 50 MG TABLET PO SCH (14:36)
[2020-06-02] MEDS: PREGABALIN 75 MG CAPSULE PO SCH ×2 (14:36→22:25)
[2020-06-02] MEDS: ALLOPURINOL 100 MG TABLET PO SCH (14:36)
[2020-06-02 17:02] LABS: CREATINE KINASE MB 11.2 ng/mL (<4.55)
[2020-06-02 17:07] LABS: TROPONIN I 2.59 ng/mL
[2020-06-02] MEDS: CLOTRIMAZOLE/BETAMETHASONE DIP CREAM 15 GM TOP SCH (19:17)
[2020-06-02] MEDS: NYSTATIN TOPICAL POWDER 15 GM TP SCH (19:17)
[2020-06-02] MEDS: CLOBETASOL PROPIONATE 0.05% CREAM 15 GM TOP SCH (19:18)
--- NOTE | 2020-06-02 20:24 | EKG REPORT ---
SEVERITY:- ABNORMAL ECG - SINUS RHYTHM LEFT VENTRICULAR HYPERTROPHY PROBABLE INFERIOR INFARCT, AGE INDETERMINATE : Confirmed by: Cari Sharp MD 02-Jun-2020 20:23:53
--- NOTE | 2020-06-02 20:26 | PDOC CONSULTATION ---
Consultation-Blank Consultation: CARDIOLOGY CONSULTATION by Dr. Cari Sharp on 06/02/2020. Patient seen at 2 PM. 60 minutes spent with patient more than 50% of time spent in direct patient care. CONSULT REQUESTING PHYSICIAN: Dr. Barakat. REASON FOR CONSULTATION: Patient admitted with shortness of breath hypoxemia acute on chronic renal failure and elevated troponin I. History OF PRESENT ILLNESS: Patient is morbidly obese Afro-[place]ian female with chronic kidney disease, hypertension, coronary artery disease with history of stent in unknown vessel and history of congestive heart failure states that she woke up this morning with shortness of breath and came to the emergency room where she was found to be hypoxic. She also had leukocytosis. Chest x-ray and CT scan was consistent with pulmonary edema, and she had leukocytosis with left shift. The patient denies any chest pain or discomfort but the troponin came back elevated at 3.0 and is now trending down. There is no palpitations or syncope. She has no history of COPD or asthma. She does snore in his sleep but has not had a sleep study done. I highly suspect that the patient is obstructive and central sleep apnea. Her EKG shows no acute changes with cues in the leads II and aVF suggestive of interrupted inferior RI and possibly the stents of the right coronary artery in the past. Details of this are not available. His EKG is not changed from March 2020. The patient had a stress test in November 2018 which showed no reversible ischemia but a basal inferior wall RI. She recently in April 2020 was admitted to [facility] for hypoxemia and heart failure and was diagnosed as having acute on chronic diastolic heart failure. Her echocardiogram was reported with LV ejection fraction 52% but was quoted as saying low normal left trigger systolic function and with diastolic dysfunction. There is no significant pulmonary hypertension by the echo report. Past Medical History Cardiac Medical History: Reports: Atrial Fibrillation, Coronary Artery Disease, DVT, Myocardial Infarction - 2002, Hyperlipidema, Hypertension, Other - Chronic diastolic heart failure Pulmonary Medical History: Reports: Pneumonia - 2006 Neurological Medical History: Endocrine Medical History: Reports: Diabetes Mellitus Type 2, Obesity Renal/ Medical History: Reports: Chronic Kidney Disease, Other - Chronic kidney disease stage III Malignancy Medical History: Reports: Renal (Kidney) Cancer GI Medical History: Reports: Gastroesophageal Reflux Disease, Hiatal Hernia Musculoskeltal Medical History: Reports: Arthritis - Back, Knees Hematology: Reports: Anemia Past Surgical History Past Surgical History: Reports: Cardiac Catheterization, Colostomy, Coronary Stent, Hysterectomy, Ileostomy, Orthopedic Surgery - L knee replacement, right ankle pin, Other - Tracheostomy 10 yrs ago, cryosurgery of renal cell cancer Social History Smoking Status: Never Smoker Frequency of Alcohol Use: None Hx Recreational Drug Use: No Drugs: None Hx Prescription Drug Abuse: No Family History Family History: Hypertension Parental Family History Reviewed: Yes Children Family History Reviewed: Yes Sibling(s) Family History Reviewed.: Yes Medication/Allergy Home Medications: Albuterol Sulfate [Albuterol Sulfate Hfa] 2 puff IH Q4HP PRN 06/19/19 Allopurinol [Zyloprim 100 mg Tablet] 100 mg PO DAILY 06/19/19 Calcitriol [Rocaltrol 0.5 mcg Capsule] 0.5 mcg PO DAILY 06/19/19 Clobetasol Propionate [Temovate 0.05% Cream 15 gm] 1 applic TOP BID 06/19/19 Clotrimazole/Betamethasone Dip [Lotrisone Cream 15 gm] 1 applic TOP BID 06/19/19 Dapagliflozin Propanediol [Farxiga] 5 mg PO DAILY 06/19/19 Loperamide HCl [Imodium 2 mg Capsule] 2 mg PO Q3HP PRN 06/19/19 Metoprolol Succinate [Toprol Xl] 200 mg PO DAILY 06/19/19 Oxycodone HCl [Oxycodone HCl 10 MG Tablet] 10 mg PO Q8HP PRN 06/19/19 Sitagliptin Phosphate [Januvia 50 mg Tablet] 50 mg PO DAILY 06/19/19 Insulin Aspart [Novolog Flexpen] 0 unit SQ .SLIDING SCALE 02/19/20 Magnesium Oxide [Mag-Ox 400 mg Tablet] 400 mg PO DAILY 02/19/20 Pravastatin Sodium 40 mg PO DAILY 02/19/20 Fluconazole [Diflucan] 150 mg PO WE@1000 03/20/20 Nystatin [Mycostatin Topical Powder 15 gm] 1 applic TP BID 03/20/20 Pregabalin 150 mg PO Q8 03/20/20 Insulin Glargine,Hum.rec.anlog [Basaglar Kwikpen U-100] 60 unit SUBCUT Q12 06/02/20 Naloxone HCl [Narcan] 1 spray NASL ASDIR PRN 06/02/20 Allergies/Adverse Reactions: ciprofloxacin [From Cipro] Allergy (Severe, Verified 03/19/20 16:20) Hallucinations ceftriaxone Allergy (Intermediate, Verified 06/01/20 20:31) Respiratory distress morphine [Morphine] Allergy (Unknown, Verified 03/19/20 16:20) azithromycin Allergy (Verified 06/01/20 20:31) RESUSCITATION STATUS: The patient is a full code. The patient's daughter is her surrogate healthcare decision maker. Current Medications Generic Name Dose Route Start Last Admin Trade Name Freq PRN Reason Stop Dose Admin Acetaminophen 650 mg 06/01/20 21:04 Tylenol 325 Mg Tablet PO 07/01/20 21:03 Q4HP PRN FOR PAIN Albuterol 2 puff 06/02/20 12:33 Ventolin Hfa 8 Gm Mdi (1 Mdi/Er Disp) IH 07/02/20 12:32 Q4HP PRN FOR SHORTNESS OF BREATH Allopurinol 100 mg 06/02/20 13:30 06/02/20 14:36 Zyloprim 100 Mg Tablet PO 07/02/20 13:29 100 mg DAILY EDWARD Administration Aspirin 81 mg 06/02/20 10:00 06/02/20 10:31 Aspirin 81 Mg Chewable Tablet PO 07/02/20 09:59 81 mg DAILY EDWARD Administration Atorvastatin Calcium 80 mg 06/02/20 22:00 06/02/20 22:25 Lipitor 80 Mg Tablet PO 07/02/20 21:59 80 mg QHS EDWARD Administration Betamethasone/Clotrimazole 1 applic 06/02/20 18:00 06/02/20 19:17 Lotrisone Cream 15 Gm TOP 07/02/20 17:59 1 applic BID EDWARD Administration Calcitriol 0.5 mcg 06/03/20 10:00 Rocaltrol 0.25 Mcg Capsule PO 07/03/20 09:59 DAILY EDWARD Clobetasol Propionate 1 applic 06/02/20 18:00 06/02/20 19:18 Temovate 0.05% Cream 15 Gm TOP 07/02/20 17:59 1 applic BID EDWARD Administration Clopidogrel Bisulfate 75 mg 06/02/20 10:00 06/02/20 10:31 Plavix 75 Mg Tablet PO 07/02/20 09:59 75 mg DAILY EDWARD Administration Dextrose 12.5 gm 06/01/20 21:13 Dextrose Inj 50% Syringe (25 Gm/50 Ml) IV 07/01/20 21:12 PRN PRN FOR BG 50-69 IN ALERT PATIENT Protocol Dextrose 25 gm 06/01/20 21:13 Dextrose Inj 50% Syringe (25 Gm/50 Ml) IV 07/01/20 21:12 PRN PRN PER PROTOCOL Protocol Fluconazole 150 mg 06/05/20 10:00 Diflucan 100 Mg Tablet PO 06/12/20 09:59 We@1000 EDWARD Glucagon 1 mg 06/01/20 21:13 Glucagen Inj 1 Mg Vial IM 07/01/20 21:12 PRN PRN Evaluate for BG < 70 Protocol Glucose 15 gm 06/01/20 21:13 Glutose 40% Gel 15 Gm Tube PO 07/01/20 21:12 PRN PRN FOR BG 50-69 IN ALERT PATIENT Protocol Glucose 30 gm 06/01/20 21:13 Glutose 40% Gel 15 Gm Tube PO 07/01/20 21:12 PRN PRN FOR BG < 50 IN ALERT PATIENT Protocol Heparin Sodium (Porcine) 0 - 12,000 unit 06/02/20 01:54 06/02/20 00:26 Heparin Inj 1,000 Unit/Ml 10 Ml Vial IV 07/02/20 01:53 4,000 units .BOLUS PER PROTOCOL PRN Administration RESPOND TO aPTT VALUE Protocol Hydromorphone HCl 1 mg 06/02/20 12:36 06/02/20 22:26 Dilaudid Inj/Pf 2 Mg/Ml Ampule IV 06/09/20 12:35 1 mg Q6HP PRN Administration FOR PAIN Aztreonam 1 gm/ Dextrose 50 mls @ 100 mls/hr 06/01/20 22:00 06/02/20 22:25 IV 06/08/20 21:59 100 mls/hr Q8 EDWARD Administration Heparin Sodium/Dextrose 25,000 unit in 250 mls @ 0 mls/hr 06/01/20 22:54 06/03/20 01:20 Heparin Rtu 25,000 Unit/250 Ml D5w Premix IV 07/01/20 22:53 9.68 mls/hr CONTINUOUS PRN 9.68 mls/hr THIS MED IS NOT "PRN" Administration Protocol Titrate Insulin Human Lispro 0 - 12 unit 06/01/20 22:00 06/02/20 22:25 Humalog Insulin 100 Unit/1 Ml 3 Ml Vial SUBCUT 07/01/20 21:59 2 unit ACHS EDWARD Administration Protocol Loperamide HCl 2 mg 06/02/20 12:33 Imodium 2 Mg Capsule PO 07/02/20 12:32 Q3HP PRN FOR DIARRHEA Magnesium Oxide 400 mg 06/02/20 13:30 06/02/20 14:36 Mag-Ox 400 Mg Tablet PO 07/02/20 13:29 400 mg DAILY EDWARD Administration Metoprolol Succinate 200 mg 06/03/20 10:00 Toprol Xl 50 Mg Tab.Sr PO 07/03/20 09:59 DAILY EDWARD Nystatin 1 applic 06/02/20 18:00 06/02/20 19:17 Mycostatin Topical Powder 15 Gm TP 06/09/20 17:59 1 applic BID EDWARD Administration Oxycodone HCl 10 mg 06/02/20 13:32 06/02/20 20:33 Oxy-Ir 5 Mg Tablet PO 06/09/20 13:31 10 mg Q8HP PRN Administration FOR PAIN Patient Own Medication 5 mg 06/02/20 12:45 Dapagliflozin Propanediol [Farxiga] PO 07/02/20 12:44 DAILY [facility] Patient Own Medication 60 unit 06/02/20 12:45 Insulin Glargine,Hum.Rec.Anlog [Gerald Hebert U-100] SUBCUT 07/02/20 12:44 Q12 [facility] Pregabalin 150 mg 06/02/20 14:00 06/02/20 22:25 Lyrica 75 Mg Capsule PO 07/02/20 13:59 150 mg Q8 EDWARD Administration Sitagliptin Phosphate 50 mg 06/02/20 13:30 06/02/20 14:36 Januvia 50 Mg Tablet PO 07/02/20 13:29 50 mg DAILY EDWARD Administration Discontinued Medications Generic Name Dose Route Start Last Admin Trade Name Freq PRN Reason Stop Dose Admin Albuterol/Ipratropium Confirm 06/01/20 18:43 06/01/20 18:45 Duoneb 3 Ml Ampul Administered 06/01/20 18:44 3 ml Dose Administration 3 ml NEB .STK-MED ONE Aspirin 81 mg 06/01/20 23:00 06/01/20 23:41 Aspirin 81 Mg Chewable Tablet PO 06/01/20 23:01 81 mg NOW ONE Administration Atorvastatin Calcium 80 mg 06/01/20 22:57 06/01/20 23:41 Lipitor 80 Mg Tablet PO 06/01/20 22:58 80 mg NOW ONE Administration Azithromycin 500 mg 06/01/20 17:37 06/01/20 18:19 Zithromax 250 Mg Tablet PO 06/01/20 17:38 500 mg NOW ONE Administration Aztreonam 1 gm 06/01/20 21:30 Azactam Inj 1 Gm Vial IV 06/02/20 09:00 ASDIR EDWARD Aztreonam Confirm 06/01/20 23:43 06/02/20 01:28 Azactam Inj 1 Gm Vial Administered 06/01/20 23:44 Not Given Dose 1 gm .ROUTE .STK-MED ONE Ceftriaxone Sodium 1,000 mg 06/01/20 17:37 06/01/20 18:26 Rocephin Inj 1000 Mg Vial IV 06/01/20 17:38 1,000 mg IVBAG (ED) ONE Administration Clopidogrel Bisulfate 300 mg 06/01/20 22:55 06/01/20 23:40 Plavix 300 Mg Tablet PO 06/01/20 22:56 300 mg NOW ONE Administration Diphenhydramine HCl Confirm 06/01/20 18:38 06/01/20 18:45 Benadryl Inj 50 Mg/1 Ml Vial Administered 06/01/20 18:39 50 mg Dose Administration 50 mg .ROUTE .STK-MED ONE Furosemide 40 mg 06/01/20 22:58 06/01/20 23:40 Lasix Inj/Pf 20 Mg/2 Ml Sdv IV 06/01/20 22:59 40 mg NOW ONE Administration Heparin Sodium (Porcine) 5,000 unit 06/01/20 22:00 06/01/20 22:56 Heparin Inj 5,000 Units/Ml 1 Ml Vial SUBCUT 07/01/20 21:59 Not Given Q8 [facility] Heparin Sodium (Porcine) Confirm 06/02/20 00:12 06/02/20 01:28 Heparin Inj 5,000 Units/Ml 1 Ml Vial Administered 06/02/20 00:13 Not Given Dose 5,000 unit .ROUTE .STK-MED ONE Methylprednisolone Sodium Succinate Confirm 06/01/20 18:43 06/01/20 18:45 Solu-Medrol Inj/Pf 125 Mg/2 Ml Sdv Administered 06/01/20 18:44 125 mg Dose Administration 125 mg .ROUTE .STK-MED ONE Oxycodone HCl 10 mg 06/01/20 14:08 06/01/20 14:34 Oxy-Ir 5 Mg Tablet PO 06/01/20 14:09 10 mg NOW ONE Administration Review of Systems Constitutional: PRESENT: fatigue Eyes: ABSENT: visual disturbances Ears: ABSENT: hearing changes Cardiovascular: PRESENT: dyspnea on exertion, edema Respiratory: PRESENT: cough, dyspnea Gastrointestinal: PRESENT: abdominal pain. ABSENT: as per HPI, bloating, coffee ground emesis, constipation, diarrhea, dysphagia, heartburn, hematemesis, hematochezia, melena, nausea, vomiting, other Genitourinary: ABSENT: dysuria, hematuria Musculoskeletal: ABSENT: joint swelling Integumentary: ABSENT: rash, wounds Neurological: ABSENT: abnormal gait, abnormal speech, confusion, dizziness, focal weakness, syncope Psychiatric: ABSENT: anxiety, depression, homidical ideation, suicidal ideation Endocrine: ABSENT: cold intolerance, heat intolerance, menstrual abnormalities, polydipsia, polyuria Hematologic/Lymphatic: ABSENT: easy bleeding, easy bruising, lymphadenopathy Physical Exam Patient is morbidly obese. In mild respiratory distress on BiPAP. Selected Entries 06/02/20 06/02/20 06/02/20 12:00 19:16 20:00 Temperature 98.8 F 97.7 F Temperature Axillary Oral Source Pulse Rate 85 82 Respiratory 23 H 18 Rate Blood Pressure 136/72 H Blood Pressure 139/87 H [Left Upper Arm ] Blood Pressure 93 Mean Blood Pressure 104 Mean [Left Upper Arm] Blood Pressure Supine Position [Left Upper Arm] BP Location Right Arm BP Position Sitting O2 Sat by Pulse 100 Interrupted interrupted inferior RI. Oximetry Oxygen Delivery Bi-pap Method ( includes room air) Fraction of 45 45 Inspired Oxygen (FIO2) Oxygen Flow 3 4.00 Rate Oxygen Delivery Nasal Cannula Method HEAD: Atraumatic. Normocephalic. EYES: Pupils are equal round regular reactive to light and accommodation. Extraocular movements are normal. ENT is negative. SKIN: There is no skin rashes. There is no petechia or ecchymosis. Neck is supple. There is mild JVD present. Trachea central. There is no accessory muscle respiration use. Trachea central there is no lymphadenopathy. There is no goiter. LUNGS: There is bibasilar rales present. There are scattered rhonchi and few bilateral wheezing. HEART: S1-S2 is heard. There is no S3 gallop. There is no S4 gallop. There is systolic murmur left sternal border and the apex there is no rub. ABDOMEN: Is obese. Nontender there is no hepatos plenomegaly. Bowel sounds are well heard. There is ileostomy bag in situ in the abdomen. All extremities femorals are diminished. There is no femoral bruits. Leg pulses are diminished. There is mild pedal edema. There is no DVT or cellulitis. 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 PSYCHIATRIC: The patient judgment site intact and affect is normal. EKG #1 and 2 are the same. The sinus rhythm. LVH. Probable old inferior myocardial infarction looks like interrupted inferior RI. Labs- Entire Visit 06/01/20 06/01/20 06/01/20 16:08 16:08 16:08 WBC 20.2 H RBC 3.73 Hgb 10.1 L Hct 32.9 L MCV 88 MCH 27.1 MCHC 30.7 L RDW 18.7 H Plt Count 143 L Lymph % (Auto) Not Reportable Young % (Auto) Not Reportable Eos % (Auto) Not Reportable Baso % (Auto) Not Reportable Absolute Neuts (auto) Not Reportable Absolute Lymphs (auto) Not Reportable Absolute Monos (auto) Not Reportable Absolute Eos (auto) Not Reportable Absolute Basos (auto) Not Reportable Total Counted 100 Seg Neutrophils % Not Reportable Seg Neuts % (Manual) 88 H Band Neutrophils % 1 L Lymphocytes % (Manual) 7 L Monocytes % (Manual) 4 Eosinophils % (Manual) 0 Basophils % (Manual) 0 Abs Neuts (Manual) 18.0 H Abs Lymphs (Manual) 1.4 Abs Monocytes (Manual) 0.8 Absolute Eos (Manual) 0.0 Abs Basophils (Manual) 0.0 Nucleated RBCs 1 Giant Platelets PRESENT Platelet Comment DECREASED Polychromasia SLIGHT Anisocytosis 2+ ESR PT INR APTT Carbonic Acid HCO3/H2CO3 Ratio ABG pH ABG pCO2 ABG pO2 ABG HCO3 ABG Total CO2 ABG O2 Saturation ABG Base Excess FiO2 Sodium 139.0 Potassium 4.7 Chloride 103 Carbon Dioxide 28 Anion Gap 8 BUN 31 H Creatinine 2.60 H Est GFR ( Amer) 22 L Est GFR (MDRD) Non-Af 19 L Glucose 169 H POC Glucose Hemoglobin A1c % Calcium 9.1 Phosphorus Magnesium Ferritin Total Bilirubin 0.6 Direct Bilirubin 0.4 Neonat Total Bilirubin Not Reportable Neonat Direct Bilirubin Not Reportable Neonat Indirect Bili Not Reportable AST 60 H ALT 26 Alkaline Phosphatase 71 Ammonia Creatine Kinase CK-MB (CK-2) Troponin I 2.070 C-Reactive Protein NT-Pro-B Natriuret Pep 9260 H Total Protein 6.8 Albumin 3.2 L Triglycerides Cholesterol LDL Cholesterol Direct VLDL Cholesterol HDL Cholesterol Amylase Lipase TSH Free T4 Urine Color Urine Appearance Urine pH Ur Specific Elkins Urine Protein Urine Glucose (UA) Urine Ketones Urine Blood Urine Nitrite Urine Bilirubin Urine Urobilinogen Ur Leukocyte Esterase Urine WBC (Auto) Urine RBC (Auto) U Hyaline Cast (Auto) Urine Bacteria (Auto) Urine Mucus (Auto) Urine Ascorbic Acid Urine Opiates Screen Urine Methadone Screen Ur Barbiturates Screen Ur Phencyclidine Scrn Ur Amphetamines Screen U Benzodiazepines Scrn Urine Cocaine Screen U Marijuana (THC) Screen COVID-19 Source 06/01/20 06/01/20 06/01/20 16:08 16:53 16:53 WBC RBC Hgb Hct MCV MCH MCHC RDW Plt Count Lymph % (Auto) Young % (Auto) Eos % (Auto) Baso % (Auto) Absolute Neuts (auto) Absolute Lymphs (auto) Absolute Monos (auto) Absolute Eos (auto) Absolute Basos (auto) Total Counted Seg Neutrophils % Seg Neuts % (Manual) Band Neutrophils % Lymphocytes % (Manual) Monocytes % (Manual) Eosinophils % (Manual) Basophils % (Manual) Abs Neuts (Manual) Abs Lymphs (Manual) Abs Monocytes (Manual) Absolute Eos (Manual) Abs Basophils (Manual) Nucleated RBCs Giant Platelets Platelet Comment Polychromasia Anisocytosis ESR PT INR APTT Carbonic Acid HCO3/H2CO3 Ratio ABG pH ABG pCO2 ABG pO2 ABG HCO3 ABG Total CO2 ABG O2 Saturation ABG Base Excess FiO2 Sodium Potassium Chloride Carbon Dioxide Anion Gap BUN Creatinine Est GFR ( Amer) Est GFR (MDRD) Non-Af Glucose POC Glucose Hemoglobin A1c % Calcium Phosphorus Magnesium Ferritin 65.40 Total Bilirubin Direct Bilirubin Neonat Total Bilirubin Neonat Direct Bilirubin Neonat Indirect Bili AST ALT Alkaline Phosphatase Ammonia Creatine Kinase CK-MB (CK-2) Troponin I C-Reactive Protein 53.4 H NT-Pro-B Natriuret Pep Total Protein Albumin Triglycerides Cholesterol LDL Cholesterol Direct VLDL Cholesterol HDL Cholesterol Amylase Lipase TSH Free T4 Urine Color YELLOW Urine Appearance CLEAR Urine pH 5.0 Ur Specific Elkins 1.015 Urine Protein 100 H Urine Glucose (UA) >=500 H Urine Ketones NEGATIVE Urine Blood NEGATIVE Urine Nitrite NEGATIVE Urine Bilirubin NEGATIVE Urine Urobilinogen NEGATIVE Ur Leukocyte Esterase NEGATIVE Urine WBC (Auto) 1 Urine RBC (Auto) 0 U Hyaline Cast (Auto) 7 Urine Bacteria (Auto) TRACE Urine Mucus (Auto) RARE Urine Ascorbic Acid NEGATIVE Urine Opiates Screen UNCONFIRMED POSITIVE Urine Methadone Screen NEGATIVE Ur Barbiturates Screen NEGATIVE Ur Phencyclidine Scrn NEGATIVE Ur Amphetamines Screen NEGATIVE U Benzodiazepines Scrn NEGATIVE Urine Cocaine Screen NEGATIVE U Marijuana (THC) Screen NEGATIVE COVID-19 Source 06/01/20 06/01/20 06/01/20 18:16 21:50 21:50 WBC RBC Hgb Hct MCV MCH MCHC RDW Plt Count Lymph % (Auto) Young % (Auto) Eos % (Auto) Baso % (Auto) Absolute Neuts (auto) Absolute Lymphs (auto) Absolute Monos (auto) Absolute Eos (auto) Absolute Basos (auto) Total Counted Seg Neutrophils % Seg Neuts % (Manual) Band Neutrophils % Lymphocytes % (Manual) Monocytes % (Manual) Eosinophils % (Manual) Basophils % (Manual) Abs Neuts (Manual) Abs Lymphs (Manual) Abs Monocytes (Manual) Absolute Eos (Manual) Abs Basophils (Manual) Nucleated RBCs Giant Platelets Platelet Comment Polychromasia Anisocytosis ESR 54 H PT INR APTT Carbonic Acid HCO3/H2CO3 Ratio ABG pH ABG pCO2 ABG pO2 ABG HCO3 ABG Total CO2 ABG O2 Saturation ABG Base Excess FiO2 Sodium Potassium Chloride Carbon Dioxide Anion Gap BUN Creatinine Est GFR ( Amer) Est GFR (MDRD) Non-Af Glucose POC Glucose Hemoglobin A1c % Calcium Phosphorus 4.8 H Magnesium 1.6 Ferritin Total Bilirubin Direct Bilirubin Neonat Total Bilirubin Neonat Direct Bilirubin Neonat Indirect Bili AST ALT Alkaline Phosphatase Ammonia Creatine Kinase CK-MB (CK-2) Troponin I C-Reactive Protein NT-Pro-B Natriuret Pep Total Protein Albumin Triglycerides Cholesterol LDL Cholesterol Direct VLDL Cholesterol HDL Cholesterol Amylase 49 Lipase 73.1 TSH Free T4 Urine Color Urine Appearance Urine pH Ur Specific Elkins Urine Protein Urine Glucose (UA) Urine Ketones Urine Blood Urine Nitrite Urine Bilirubin Urine Urobilinogen Ur Leukocyte Esterase Urine WBC (Auto) Urine RBC (Auto) U Hyaline Cast (Auto) Urine Bacteria (Auto) Urine Mucus (Auto) Urine Ascorbic Acid Urine Opiates Screen Urine Methadone Screen Ur Barbiturates Screen Ur Phencyclidine Scrn Ur Amphetamines Screen U Benzodiazepines Scrn Urine Cocaine Screen U Marijuana (THC) Screen COVID-19 Source See comment 06/01/20 06/01/20 06/01/20 21:50 21:50 21:50 WBC RBC Hgb Hct MCV MCH MCHC RDW Plt Count Lymph % (Auto) Young % (Auto) Eos % (Auto) Baso % (Auto) Absolute Neuts (auto) Absolute Lymphs (auto) Absolute Monos (auto) Absolute Eos (auto) Absolute Basos (auto) Total Counted Seg Neutrophils % Seg Neuts % (Manual) Band Neutrophils % Lymphocytes % (Manual) Monocytes % (Manual) Eosinophils % (Manual) Basophils % (Manual) Abs Neuts (Manual) Abs Lymphs (Manual) Abs Monocytes (Manual) Absolute Eos (Manual) Abs Basophils (Manual) Nucleated RBCs Giant Platelets Platelet Comment Polychromasia Anisocytosis ESR PT 16.2 H INR 1.29 APTT 33.3 Carbonic Acid HCO3/H2CO3 Ratio ABG pH ABG pCO2 ABG pO2 ABG HCO3 ABG Total CO2 ABG O2 Saturation ABG Base Excess FiO2 Sodium Potassium Chloride Carbon Dioxide Anion Gap BUN Creatinine Est GFR ( Amer) Est GFR (MDRD) Non-Af Glucose POC Glucose Hemoglobin A1c % Calcium Phosphorus Magnesium Ferritin Total Bilirubin Direct Bilirubin Neonat Total Bilirubin Neonat Direct Bilirubin Neonat Indirect Bili AST ALT Alkaline Phosphatase Ammonia < 8.7 L Creatine Kinase CK-MB (CK-2) Troponin I C-Reactive Protein NT-Pro-B Natriuret Pep Total Protein Albumin Triglycerides Cholesterol LDL Cholesterol Direct VLDL Cholesterol HDL Cholesterol Amylase Lipase TSH 0.17 L Free T4 1.21 Urine Color Urine Appearance Urine pH Ur Specific Elkins Urine Protein Urine Glucose (UA) Urine Ketones Urine Blood Urine Nitrite Urine Bilirubin Urine Urobilinogen Ur Leukocyte Esterase Urine WBC (Auto) Urine RBC (Auto) U Hyaline Cast (Auto) Urine Bacteria (Auto) Urine Mucus (Auto) Urine Ascorbic Acid Urine Opiates Screen Urine Methadone Screen Ur Barbiturates Screen Ur Phencyclidine Scrn Ur Amphetamines Screen U Benzodiazepines Scrn Urine Cocaine Screen U Marijuana (THC) Screen COVID-19 Source 06/01/20 06/01/20 06/01/20 21:50 21:50 21:50 WBC 16.5 H RBC 3.85 Hgb 10.7 L Hct 33.3 L MCV 87 MCH 27.9 MCHC 32.1 RDW 18.7 H Plt Count 145 L Lymph % (Auto) 6.2 L Young % (Auto) 4.2 Eos % (Auto) 0.0 Baso % (Auto) 0.2 Absolute Neuts (auto) 14.7 H Absolute Lymphs (auto) 1.0 Absolute Monos (auto) 0.7 Absolute Eos (auto) 0.0 Absolute Basos (auto) 0.0 Total Counted Seg Neutrophils % 89.4 H Seg Neuts % (Manual) Band Neutrophils % Lymphocytes % (Manual) Monocytes % (Manual) Eosinophils % (Manual) Basophils % (Manual) Abs Neuts (Manual) Abs Lymphs (Manual) Abs Monocytes (Manual) Absolute Eos (Manual) Abs Basophils (Manual) Nucleated RBCs Giant Platelets Platelet Comment Polychromasia Anisocytosis ESR PT INR APTT Carbonic Acid HCO3/H2CO3 Ratio ABG pH ABG pCO2 ABG pO2 ABG HCO3 ABG Total CO2 ABG O2 Saturation ABG Base Excess FiO2 Sodium Potassium Chloride Carbon Dioxide Anion Gap BUN Creatinine Est GFR ( Amer) Est GFR (MDRD) Non-Af Glucose POC Glucose Hemoglobin A1c % Calcium Phosphorus Magnesium Ferritin Total Bilirubin Direct Bilirubin Neonat Total Bilirubin Neonat Direct Bilirubin Neonat Indirect Bili AST ALT Alkaline Phosphatase Ammonia Creatine Kinase 299 H CK-MB (CK-2) 9.98 H Troponin I 3.620 C-Reactive Protein NT-Pro-B Natriuret Pep Total Protein Albumin Triglycerides Cholesterol LDL Cholesterol Direct VLDL Cholesterol HDL Cholesterol Amylase Lipase TSH Free T4 Urine Color Urine Appearance Urine pH Ur Specific Elkins Urine Protein Urine Glucose (UA) Urine Ketones Urine Blood Urine Nitrite Urine Bilirubin Urine Urobilinogen Ur Leukocyte Esterase Urine WBC (Auto) Urine RBC (Auto) U Hyaline Cast (Auto) Urine Bacteria (Auto) Urine Mucus (Auto) Urine Ascorbic Acid Urine Opiates Screen Urine Methadone Screen Ur Barbiturates Screen Ur Phencyclidine Scrn Ur Amphetamines Screen U Benzodiazepines Scrn Urine Cocaine Screen U Marijuana (THC) Screen COVID-19 Source 06/01/20 06/02/20 06/02/20 21:50 00:35 00:45 WBC RBC Hgb Hct MCV MCH MCHC RDW Plt Count Lymph % (Auto) Young % (Auto) Eos % (Auto) Baso % (Auto) Absolute Neuts (auto) Absolute Lymphs (auto) Absolute Monos (auto) Absolute Eos (auto) Absolute Basos (auto) Total Counted Seg Neutrophils % Seg Neuts % (Manual) Band Neutrophils % Lymphocytes % (Manual) Monocytes % (Manual) Eosinophils % (Manual) Basophils % (Manual) Abs Neuts (Manual) Abs Lymphs (Manual) Abs Monocytes (Manual) Absolute Eos (Manual) Abs Basophils (Manual) Nucleated RBCs Giant Platelets Platelet Comment Polychromasia Anisocytosis ESR PT 16.5 H INR 1.31 APTT 34.9 Carbonic Acid 2.04 H HCO3/H2CO3 Ratio 14:1 ABG pH 7.27 L ABG pCO2 67.9 H ABG pO2 32.9 L* ABG HCO3 30.1 H ABG Total CO2 32.2 H ABG O2 Saturation 53.1 L ABG Base Excess 1.5 FiO2 32% Sodium Potassium Chloride Carbon Dioxide Anion Gap BUN Creatinine Est GFR ( Amer) Est GFR (MDRD) Non-Af Glucose POC Glucose 182 H Hemoglobin A1c % Calcium Phosphorus Magnesium Ferritin Total Bilirubin Direct Bilirubin Neonat Total Bilirubin Neonat Direct Bilirubin Neonat Indirect Bili AST ALT Alkaline Phosphatase Ammonia Creatine Kinase CK-MB (CK-2) Troponin I C-Reactive Protein NT-Pro-B Natriuret Pep Total Protein Albumin Triglycerides Cholesterol LDL Cholesterol Direct VLDL Cholesterol HDL Cholesterol Amylase Lipase TSH Free T4 Urine Color Urine Appearance Urine pH Ur Specific Elkins Urine Protein Urine Glucose (UA) Urine Ketones Urine Blood Urine Nitrite Urine Bilirubin Urine Urobilinogen Ur Leukocyte Esterase Urine WBC (Auto) Urine RBC (Auto) U Hyaline Cast (Auto) Urine Bacteria (Auto) Urine Mucus (Auto) Urine Ascorbic Acid Urine Opiates Screen Urine Methadone Screen Ur Barbiturates Screen Ur Phencyclidine Scrn Ur Amphetamines Screen U Benzodiazepines Scrn Urine Cocaine Screen U Marijuana (THC) Screen COVID-19 Source 06/02/20 06/02/20 06/02/20 02:05 04:19 04:19 WBC RBC Hgb Hct MCV MCH MCHC RDW Plt Count Lymph % (Auto) Young % (Auto) Eos % (Auto) Baso % (Auto) Absolute Neuts (auto) Absolute Lymphs (auto) Absolute Monos (auto) Absolute Eos (auto) Absolute Basos (auto) Total Counted Seg Neutrophils % Seg Neuts % (Manual) Band Neutrophils % Lymphocytes % (Manual) Monocytes % (Manual) Eosinophils % (Manual) Basophils % (Manual) Abs Neuts (Manual) Abs Lymphs (Manual) Abs Monocytes (Manual) Absolute Eos (Manual) Abs Basophils (Manual) Nucleated RBCs Giant Platelets Platelet Comment Polychromasia Anisocytosis ESR PT INR APTT Carbonic Acid 1.77 H HCO3/H2CO3 Ratio 16:1 ABG pH 7.32 L ABG pCO2 58.9 H ABG pO2 75.4 L ABG HCO3 29.6 H ABG Total CO2 31.4 H ABG O2 Saturation 93.7 L ABG Base Excess 2.1 FiO2 3 L Sodium Potassium Chloride Carbon Dioxide Anion Gap BUN Creatinine Est GFR ( Amer) Est GFR (MDRD) Non-Af Glucose POC Glucose Hemoglobin A1c % Calcium Phosphorus Magnesium Ferritin Total Bilirubin Direct Bilirubin Neonat Total Bilirubin Neonat Direct Bilirubin Neonat Indirect Bili AST ALT Alkaline Phosphatase Ammonia Creatine Kinase 249 H CK-MB (CK-2) 11.40 H Troponin I 3.000 C-Reactive Protein NT-Pro-B Natriuret Pep Total Protein Albumin Triglycerides Cholesterol LDL Cholesterol Direct VLDL Cholesterol HDL Cholesterol Amylase Lipase TSH Free T4 Urine Color Urine Appearance Urine pH Ur Specific Elkins Urine Protein Urine Glucose (UA) Urine Ketones Urine Blood Urine Nitrite Urine Bilirubin Urine Urobilinogen Ur Leukocyte Esterase Urine WBC (Auto) Urine RBC (Auto) U Hyaline Cast (Auto) Urine Bacteria (Auto) Urine Mucus (Auto) Urine Ascorbic Acid Urine Opiates Screen Urine Methadone Screen Ur Barbiturates Screen Ur Phencyclidine Scrn Ur Amphetamines Screen U Benzodiazepines Scrn Urine Cocaine Screen U Marijuana (THC) Screen COVID-19 Source 06/02/20 06/02/20 06/02/20 04:19 04:19 04:19 WBC 16.2 H RBC 3.69 L Hgb 10.4 L Hct 32.2 L MCV 87 MCH 28.0 MCHC 32.1 RDW 18.6 H Plt Count 127 L Lymph % (Auto) 6.5 L Young % (Auto) 1.3 L Eos % (Auto) 0.0 Baso % (Auto) 0.1 Absolute Neuts (auto) 14.9 H Absolute Lymphs (auto) 1.0 Absolute Monos (auto) 0.2 Absolute Eos (auto) 0.0 Absolute Basos (auto) 0.0 Total Counted Seg Neutrophils % 92.1 H Seg Neuts % (Manual) Band Neutrophils % Lymphocytes % (Manual) Monocytes % (Manual) Eosinophils % (Manual) Basophils % (Manual) Abs Neuts (Manual) Abs Lymphs (Manual) Abs Monocytes (Manual) Absolute Eos (Manual) Abs Basophils (Manual) Nucleated RBCs Giant Platelets Platelet Comment Polychromasia Anisocytosis ESR PT INR APTT Carbonic Acid HCO3/H2CO3 Ratio ABG pH ABG pCO2 ABG pO2 ABG HCO3 ABG Total CO2 ABG O2 Saturation ABG Base Excess FiO2 Sodium 138.6 Potassium 4.5 Chloride 102 Carbon Dioxide 28 Anion Gap 9 BUN 35 H Creatinine 2.51 H Est GFR ( Amer) 23 L Est GFR (MDRD) Non-Af 19 L Glucose 198 H POC Glucose Hemoglobin A1c % 7.7 H Calcium 9.0 Phosphorus Magnesium Ferritin Total Bilirubin 0.6 Direct Bilirubin 0.5 H Neonat Total Bilirubin Not Reportable Neonat Direct Bilirubin Not Reportable Neonat Indirect Bili Not Reportable AST 64 H ALT 30 Alkaline Phosphatase 63 Ammonia Creatine Kinase CK-MB (CK-2) Troponin I C-Reactive Protein NT-Pro-B Natriuret Pep Total Protein 7.1 Albumin 3.2 L Triglycerides 137 Cholesterol 88.71 LDL Cholesterol Direct < 30 VLDL Cholesterol 27.4 HDL Cholesterol 27 L Amylase Lipase TSH Free T4 Urine Color Urine Appearance Urine pH Ur Specific Elkins Urine Protein Urine Glucose (UA) Urine Ketones Urine Blood Urine Nitrite Urine Bilirubin Urine Urobilinogen Ur Leukocyte Esterase Urine WBC (Auto) Urine RBC (Auto) U Hyaline Cast (Auto) Urine Bacteria (Auto) Urine Mucus (Auto) Urine Ascorbic Acid Urine Opiates Screen Urine Methadone Screen Ur Barbiturates Screen Ur Phencyclidine Scrn Ur Amphetamines Screen U Benzodiazepines Scrn Urine Cocaine Screen U Marijuana (THC) Screen COVID-19 Source 06/02/20 06/02/20 06/02/20 06:10 07:41 12:52 WBC RBC Hgb Hct MCV MCH MCHC RDW Plt Count Lymph % (Auto) Young % (Auto) Eos % (Auto) Baso % (Auto) Absolute Neuts (auto) Absolute Lymphs (auto) Absolute Monos (auto) Absolute Eos (auto) Absolute Basos (auto) Total Counted Seg Neutrophils % Seg Neuts % (Manual) Band Neutrophils % Lymphocytes % (Manual) Monocytes % (Manual) Eosinophils % (Manual) Basophils % (Manual) Abs Neuts (Manual) Abs Lymphs (Manual) Abs Monocytes (Manual) Absolute Eos (Manual) Abs Basophils (Manual) Nucleated RBCs Giant Platelets Platelet Comment Polychromasia Anisocytosis ESR PT INR APTT 61.3 H Carbonic Acid 1.45 H HCO3/H2CO3 Ratio 18:1 ABG pH 7.35 ABG pCO2 48.3 H ABG pO2 69.0 L ABG HCO3 26.2 H ABG Total CO2 27.7 H ABG O2 Saturation 92.9 L ABG Base Excess 0.2 FiO2 45% Sodium Potassium Chloride Carbon Dioxide Anion Gap BUN Creatinine Est GFR ( Amer) Est GFR (MDRD) Non-Af Glucose POC Glucose 190 H Hemoglobin A1c % Calcium Phosphorus Magnesium Ferritin Total Bilirubin Direct Bilirubin Neonat Total Bilirubin Neonat Direct Bilirubin Neonat Indirect Bili AST ALT Alkaline Phosphatase Ammonia Creatine Kinase CK-MB (CK-2) Troponin I C-Reactive Protein NT-Pro-B Natriuret Pep Total Protein Albumin Triglycerides Cholesterol LDL Cholesterol Direct VLDL Cholesterol HDL Cholesterol Amylase Lipase TSH Free T4 Urine Color Urine Appearance Urine pH Ur Specific Elkins Urine Protein Urine Glucose (UA) Urine Ketones Urine Blood Urine Nitrite Urine Bilirubin Urine Urobilinogen Ur Leukocyte Esterase Urine WBC (Auto) Urine RBC (Auto) U Hyaline Cast (Auto) Urine Bacteria (Auto) Urine Mucus (Auto) Urine Ascorbic Acid Urine Opiates Screen Urine Methadone Screen Ur Barbiturates Screen Ur Phencyclidine Scrn Ur Amphetamines Screen U Benzodiazepines Scrn Urine Cocaine Screen U Marijuana (THC) Screen COVID-19 Source 06/02/20 06/02/20 06/02/20 16:00 16:00 16:12 WBC RBC Hgb Hct MCV MCH MCHC RDW Plt Count Lymph % (Auto) Young % (Auto) Eos % (Auto) Baso % (Auto) Absolute Neuts (auto) Absolute Lymphs (auto) Absolute Monos (auto) Absolute Eos (auto) Absolute Basos (auto) Total Counted Seg Neutrophils % Seg Neuts % (Manual) Band Neutrophils % Lymphocytes % (Manual) Monocytes % (Manual) Eosinophils % (Manual) Basophils % (Manual) Abs Neuts (Manual) Abs Lymphs (Manual) Abs Monocytes (Manual) Absolute Eos (Manual) Abs Basophils (Manual) Nucleated RBCs Giant Platelets Platelet Comment Polychromasia Anisocytosis ESR PT INR APTT Carbonic Acid HCO3/H2CO3 Ratio ABG pH ABG pCO2 ABG pO2 ABG HCO3 ABG Total CO2 ABG O2 Saturation ABG Base Excess FiO2 Sodium Potassium Chloride Carbon Dioxide Anion Gap BUN Creatinine Est GFR ( Amer) Est GFR (MDRD) Non-Af Glucose POC Glucose 157 H Hemoglobin A1c % Calcium Phosphorus Magnesium Ferritin Total Bilirubin Direct Bilirubin Neonat Total Bilirubin Neonat Direct Bilirubin Neonat Indirect Bili AST ALT Alkaline Phosphatase Ammonia Creatine Kinase 167 H CK-MB (CK-2) 11.20 H Troponin I 2.590 C-Reactive Protein NT-Pro-B Natriuret Pep Total Protein Albumin Triglycerides Cholesterol LDL Cholesterol Direct VLDL Cholesterol HDL Cholesterol Amylase Lipase TSH Free T4 Urine Color Urine Appearance Urine pH Ur Specific Elkins Urine Protein Urine Glucose (UA) Urine Ketones Urine Blood Urine Nitrite Urine Bilirubin Urine Urobilinogen Ur Leukocyte Esterase Urine WBC (Auto) Urine RBC (Auto) U Hyaline Cast (Auto) Urine Bacteria (Auto) Urine Mucus (Auto) Urine Ascorbic Acid Urine Opiates Screen Urine Methadone Screen Ur Barbiturates Screen Ur Phencyclidine Scrn Ur Amphetamines Screen U Benzodiazepines Scrn Urine Cocaine Screen U Marijuana (THC) Screen COVID-19 Source 06/02/20 21:53 WBC RBC Hgb Hct MCV MCH MCHC RDW Plt Count Lymph % (Auto) Young % (Auto) Eos % (Auto) Baso % (Auto) Absolute Neuts (auto) Absolute Lymphs (auto) Absolute Monos (auto) Absolute Eos (auto) Absolute Basos (auto) Total Counted Seg Neutrophils % Seg Neuts % (Manual) Band Neutrophils % Lymphocytes % (Manual) Monocytes % (Manual) Eosinophils % (Manual) Basophils % (Manual) Abs Neuts (Manual) Abs Lymphs (Manual) Abs Monocytes (Manual) Absolute Eos (Manual) Abs Basophils (Manual) Nucleated RBCs Giant Platelets Platelet Comment Polychromasia Anisocytosis ESR PT INR APTT Carbonic Acid HCO3/H2CO3 Ratio ABG pH ABG pCO2 ABG pO2 ABG HCO3 ABG Total CO2 ABG O2 Saturation ABG Base Excess FiO2 Sodium Potassium Chloride Carbon Dioxide Anion Gap BUN Creatinine Est GFR ( Amer) Est GFR (MDRD) Non-Af Glucose POC Glucose 192 H Hemoglobin A1c % Calcium Phosphorus Magnesium Ferritin Total Bilirubin Direct Bilirubin Neonat Total Bilirubin Neonat Direct Bilirubin Neonat Indirect Bili AST ALT Alkaline Phosphatase Ammonia Creatine Kinase CK-MB (CK-2) Troponin I C-Reactive Protein NT-Pro-B Natriuret Pep Total Protein Albumin Triglycerides Cholesterol LDL Cholesterol Direct VLDL Cholesterol HDL Cholesterol Amylase Lipase TSH Free T4 Urine Color Urine Appearance Urine pH Ur Specific Elkins Urine Protein Urine Glucose (UA) Urine Ketones Urine Blood Urine Nitrite Urine Bilirubin Urine Urobilinogen Ur Leukocyte Esterase Urine WBC (Auto) Urine RBC (Auto) U Hyaline Cast (Auto) Urine Bacteria (Auto) Urine Mucus (Auto) Urine Ascorbic Acid Urine Opiates Screen Urine Methadone Screen Ur Barbiturates Screen Ur Phencyclidine Scrn Ur Amphetamines Screen U Benzodiazepines Scrn Urine Cocaine Screen U Marijuana (THC) Screen COVID-19 Source Abdomen/Pelvis CT 06/01/20 00:00 IMPRESSION: Mild stranding within the peritoneal fat, nonspecific but new from prior. Shotty retroperitoneal and mesenteric adenopathy, mildly progressive Chest CT 06/01/20 00:00 IMPRESSION: Chronic parenchymal lung change. Mild progressive congestive change when compared to March. Enlarged heart, stable. Chest X-Ray 06/01/20 13:33 IMPRESSION: NO ACUTE FINDINGS.Similar small left pleural effusion. IMPRESSION/RECOMMENDATION: 1. Elevated troponin I. The patient has no anginal symptoms. There is no acute changes on the EKG. Is most likely secondary to supply demand mismatch due to the patient's acute renal failure and heart failure. But in view of the patient's pre-existing coronary artery disease history of stents would agree with treating the patient with IV heparin for at least 48 hours. 2. Acute on chronic systolic and diastolic heart failure: Continue diuretics. Later once the kidney function stabilizes we will see if we can start the patient on a ARB 3. Acute on chronic respiratory failure. Suspect the patient has sleep apnea obstructive and central. 4. Acute on chronic renal failure.: Avoid nephrotoxic drugs. 5. Hypertension: Continue antihypertensive. 6. Diabetes mellitus: Continue antidiabetic medication. 7. Coronary artery disease: History of old [place] and history of stent in unknown vessel most likely right coronary artery. 8. Strongly suspect sleep apnea obstructive and central. 9. Hyperlipidemia 10. Morbid obesity. 11. 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 Watch electrolytes. Medications reviewed medical regimen and management Discussed with Dr. Barakat. Medical decision making is of high complexity. 60 minutes spent on this patient more than 50% of time spent in direct patient care. Will follow.
[2020-06-02] MEDS: OXYCODONE HCL IR 5 MG TABLET PO PRN (20:33)
[2020-06-02] MEDS: ATORVASTATIN CALCIUM 80 MG TABLET PO SCH (22:25)
[2020-06-03] MEDS: HEPARIN SODIUM,PORCINE/D5W 25,000 UNIT/250 ML RTUINJ IV PRN (01:20)
[2020-06-03] MEDS: HYDROMORPHONE HCL INJ/PF 2 MG/ML AMPULE IV PRN ×3 (03:55→23:45)
[2020-06-03] MEDS: AZTREONAM 1 GM in DEXTROSE 5%-WATER 50 ML IV SCH ×3 (05:31→23:31)
[2020-06-03] MEDS: PREGABALIN 75 MG CAPSULE PO SCH ×3 (05:31→23:32)
[2020-06-03 06:59] LABS: ABSOLUTE LYMPHOCYTES (AUTO) 1.1 10^3/uL (0.5-4.7); ABSOLUTE MONOCYTES (AUTO) 1.3 10^3/uL (0.1-1.4); ABSOLUTE NEUT (AUTO) 15.8 10^3/uL (1.7-8.2); BASOPHILS % (AUTO) 0.1 % (0-2); HEMATOCRIT 31.1 % (36.0-47.0); HEMOGLOBIN 9.7 g/dL (12.0-15.5); MEAN CORPUSCULAR HEMOGLOBIN 27.2 pg (27.0-33.4); MEAN CORPUSCULAR HGB CONC 31.2 g/dL (32.0-36.0); MEAN CORPUSCULAR VOLUME 87 fl (80-97); MONOCYTES % (AUTO) 7.2 % (3-13); PLATELET COUNT 137 10^3/uL (150-450); RED BLOOD COUNT 3.57 10^6/uL (3.72-5.28); RED CELL DISTRIBUTION WIDTH 18.8 % (11.5-14.0); SEGMENTED NEUTROPHILS % (AUTO) 86.7 % (42-78); TOTAL CELLS COUNTED % (AUTO) 100 %; WHITE BLOOD COUNT 18.2 10^3/uL (4.0-10.5)
[2020-06-03] MEDS: SITAGLIPTIN PHOSPHATE 50 MG TABLET PO SCH (09:09)
[2020-06-03] MEDS: ASPIRIN 81 MG TABLET, CHEWABLE PO SCH (09:09)
[2020-06-03] MEDS: INSULIN LISPRO 100 UNIT/ML 3 ML VIAL SUBCUT SCH ×4 (09:09→23:25)
[2020-06-03] MEDS: CLOTRIMAZOLE/BETAMETHASONE DIP CREAM 15 GM TOP SCH ×3 (09:10→23:32)
[2020-06-03] MEDS: NYSTATIN TOPICAL POWDER 15 GM TP SCH ×3 (09:10→23:33)
[2020-06-03] MEDS: MAGNESIUM OXIDE 400 MG TABLET PO SCH (09:10)
[2020-06-03] MEDS: FUROSEMIDE INJ/PF 20 MG/2 ML SDV IV SCH ×2 (09:10→23:31)
[2020-06-03] MEDS: CALCITRIOL 0.25 MCG CAPSULE PO SCH (09:11)
[2020-06-03] MEDS: METOPROLOL SUCCINATE 50 MG TAB.SR.24H PO SCH (09:11)
[2020-06-03] MEDS: CLOPIDOGREL BISULFATE 75 MG TABLET PO SCH (09:11)
[2020-06-03] MEDS: ALLOPURINOL 100 MG TABLET PO SCH (09:12)
[2020-06-03] MEDS: CLOBETASOL PROPIONATE 0.05% CREAM 15 GM TOP SCH ×3 (09:12→23:34)
[2020-06-03] MEDS: OXYCODONE HCL IR 5 MG TABLET PO PRN ×2 (11:49→20:47)
--- NOTE | 2020-06-03 13:05 | CDI QUERY ---
CDI Query CDI Review: Documentation in the Medical Record indicates this patient: Per ED Notes: Physical Exam: General: Morbidly obese 64-year-old woman The following is also documented in the Medical Record: Per Cardiology Consult: Patient is morbidly obese Afro-[place]ian female Height: 5 ft 1 in Weight: 119.3 kg (262.5 lbs) Calculated BMI: 49.7 Based on your medical judgement, can you further clarify in the Progress Notes the diagnosis associated with these findings. The documentation of a patients BMI is required to capture an obesity diagnosis. Morbid Obesity /BMI 49.7 kg/m2 Overweight /BMI 49.7 kg/m2 Obesity /BMI 49.7 kg/m2 Other condition (please specify) None of the above / Not applicable Please note: Obesity is defined as: Class 1: BMI of 30 to < 35 Class 2: BMI of 35 to < 40 Class 3: BMI of > 40 (this is also defined as Morbid Obesity) Overweight: BMI 25 to < 30 Normal weight: BMI 18.5 to < 25 Thank you for your consideration. Bell Kerr Clinical Refrigeration Lead Physician Advisor
--- NOTE | 2020-06-03 21:46 | PDOC PROGRESS REPORT ---
Subjective Progress Note for:: 06/03/20 Subjective:: Patient seen by the bedside I discussed with her the plan of care, the diagnosis. There is still persistent leukocytosis with a left shift no discernible source of infection Reason For Visit: ACUTE CHF, ACUTE KIDNEY INJURY, LEUCOCYTOSIS?CAUSE Physical Exam Vital Signs: Temp Pulse Resp BP Pulse Ox 97.5 F 64 18 135/74 H 99 06/03/20 19:38 06/03/20 19:38 06/03/20 19:38 06/03/20 19:38 06/03/20 19:38 Intake & Output 06/02/20 06/03/20 06/04/20 06:59 06:59 06:59 Intake Total 100 291 616 Output Total 250 775 Balance -150 -484 616 Weight 121 kg 119.3 kg General appearance: PRESENT: no acute distress Eye exam: PRESENT: PERRLA Respiratory exam: PRESENT: clear to auscultation stephen Cardiovascular exam: PRESENT: +S1, +S2 GI/Abdominal exam: PRESENT: soft Neurological exam: PRESENT: alert, CN II-XII grossly intact Results Laboratory Results: 06/03/20 05:58 06/02/20 04:19 06/03/20 05:58 WBC 18.2 H RBC 3.57 L Hgb 9.7 L Hct 31.1 L MCV 87 MCH 27.2 MCHC 31.2 L RDW 18.8 H Plt Count 137 L Seg Neutrophils % 86.7 H 06/01/20 16:53 Clean Catch Midstream Urine Culture - Final NO GROWTH 2 DAYS 06/01/20 06/01/20 06/01/20 16:08 21:50 21:50 Creatine Kinase 299 H CK-MB (CK-2) 9.98 H Troponin I 2.070 3.620 NT-Pro-B Natriuret Pep 9260 H 06/02/20 06/02/20 06/02/20 04:19 04:19 16:00 Creatine Kinase 249 H 167 H CK-MB (CK-2) 11.40 H Troponin I 3.000 NT-Pro-B Natriuret Pep 06/02/20 16:00 Creatine Kinase CK-MB (CK-2) 11.20 H Troponin I 2.590 NT-Pro-B Natriuret Pep Impressions: Abdomen/Pelvis CT 06/01/20 00:00 IMPRESSION: Mild stranding within the peritoneal fat, nonspecific but new from prior. Shotty retroperitoneal and mesenteric adenopathy, mildly progressive Chest CT 06/01/20 00:00 IMPRESSION: Chronic parenchymal lung change. Mild progressive congestive change when compared to March. Enlarged heart, stable. Chest X-Ray 06/01/20 13:33 IMPRESSION: NO ACUTE FINDINGS.Similar small left pleural effusion. Assessment & Plan - Diagnosis (1) NSTEMI (non-ST elevated myocardial infarction) Is this a current diagnosis for this admission?: Yes Plan: Continue IV heparin, antiplatelet aspirin and Plavix statin therapy beta-simeon (2) Acute diastolic heart failure Is this a current diagnosis for this admission?: Yes (3) Leucocytosis Qualifiers: Leukocytosis type: leukemoid reaction Qualified Code(s): D72.823 - Leukemoid reaction Is this a current diagnosis for this admission?: Yes Plan: Leukocytosis etiology unclear (4) Cholelithiasis Qualifiers: Cholelithiasis location: gallbladder Cholecystitis presence: without cholecystitis Biliary obstruction: without biliary obstruction Qualified Code(s): K80.20 - Calculus of gallbladder without cholecystitis without obstruction Is this a current diagnosis for this admission?: Yes (5) Chronic kidney disease, stage 3 Is this a current diagnosis for this admission?: Yes - Time Time Spent with patient: 25-34 minutes Level of Care: IMCU Anticipated discharge: Home Anticipated DC Timeframe: within 72 hours
--- NOTE | 2020-06-03 22:03 | Progress Note ---
Provider Note Provider Note: CARDIOLOGY PROGRESS NOTE by Dr. Cari Sharp on 06/03/2020. SUBJECTIVE: The patient states his shortness of breath is better. She is off the BiPAP and is on nasal cannula. She denies any chest pain or discomfort. There is no arrhythmias seen on the monitor. She states a couple of years ago she had a sleep study which is negative. But she needs to have one repeated. Her COVID-19 test is not back yet. PHYSICAL EXAMINATION: The patient is morbidly obese. She is in no acute distress. Selected Entries 06/03/20 16:00 Temperature 97.7 F Temperature Oral Source Pulse Rate 70 Respiratory 22 H Rate Blood Pressure 117/74 [Left Upper Arm ] Blood Pressure 88 Mean [Left Upper Arm] Blood Pressure Supine Position [Left Upper Arm] O2 Sat by Pulse 97 Oximetry Oxygen Delivery Nasal Cannula Method ( includes room air) Oxygen Flow 3.0 Rate HEAD: Atraumatic. Normocephalic. EYES: Pupils are equal round regular reactive to light and accommodation. Extraocular movements are normal. ENT is negative. SKIN: There is no skin rashes. There is no petechia or ecchymosis. Neck is supple. There is mild JVD present. Trachea central. There is no accessory muscle respiration use. Trachea central there is no lymphadenopathy. There is no goiter. LUNGS: There is bibasilar rales present. There are scattered rhonchi and few bilateral wheezing. HEART: S1-S2 is heard. There is no S3 gallop. There is no S4 gallop. There is systolic murmur left sternal border and the apex there is no rub. ABDOMEN: Is obese. Nontender there is no hepatosplenomegaly. Bowel sounds are well heard. There is ileostomy bag in situ in the abdomen. All extremities femorals are diminished. There is no femoral bruits. Leg pulses are diminished. There is mild pedal edema. There is no DVT or cellulitis. 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 PSYCHIATRIC: The patient judgment site intact and affect is normal. Labs- All tests 24 hr 06/03/20 06/03/20 06/03/20 05:58 05:58 07:49 WBC 18.2 H RBC 3.57 L Hgb 9.7 L Hct 31.1 L MCV 87 MCH 27.2 MCHC 31.2 L RDW 18.8 H Plt Count 137 L Lymph % (Auto) 6.0 L Sanders % (Auto) 7.2 Eos % (Auto) 0.0 Baso % (Auto) 0.1 Absolute Neuts (auto) 15.8 H Absolute Lymphs (auto) 1.1 Absolute Monos (auto) 1.3 Absolute Eos (auto) 0.0 Absolute Basos (auto) 0.0 Seg Neutrophils % 86.7 H APTT 73.7 H POC Glucose 193 H 06/03/20 06/03/20 06/03/20 11:41 15:31 21:10 WBC RBC Hgb Hct MCV MCH MCHC RDW Plt Count Lymph % (Auto) Sanders % (Auto) Eos % (Auto) Baso % (Auto) Absolute Neuts (auto) Absolute Lymphs (auto) Absolute Monos (auto) Absolute Eos (auto) Absolute Basos (auto) Seg Neutrophils % APTT POC Glucose 202 H 177 H 167 H Abdomen/Pelvis CT 06/01/20 00:00 IMPRESSION: Mild stranding within the peritoneal fat, nonspecific but new from prior. Shotty retroperitoneal and mesenteric adenopathy, mildly progressive Chest CT 06/01/20 00:00 IMPRESSION: Chronic parenchymal lung change. Mild progressive congestive change when compared to March. Enlarged heart, stable. Chest X-Ray 06/01/20 13:33 IMPRESSION: NO ACUTE FINDINGS.Similar small left pleural effusion. IMPRESSION/RECOMMENDATION: 1. Elevated troponin I. The patient has no anginal symptoms. There is no acute changes on the EKG. Is most likely secondary to supply demand mismatch due to the patient's acute renal failure and heart failure. But in view of the patient's pre-existing coronary artery disease history of stents would agree with treating the patient with IV heparin for at least 48 hours. 2. Acute on chronic systolic and diastolic heart failure: Continue diuretics. Later once the kidney function stabilizes we will see if we can start the camille ent on a ARB 3. Acute on chronic respiratory failure. Suspect the patient has sleep apnea obstructive and central. 4. Acute on chronic renal failure.: Avoid nephrotoxic drugs. 5. Hypertension: Continue antihypertensive. 6. Diabetes mellitus: Continue antidiabetic medication. 7. Coronary artery disease: History of old [place] and history of stent in unknown vessel most likely right coronary artery. 8. Strongly suspect sleep apnea obstructive and central. 9. Hyperlipidemia 10. Morbid obesity. 11. 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 Watch electrolytes. Medications reviewed. Medical regimen and management plan discussed with the attending provider Dr. Barakat. Medical decision making is of high complexity. 40 minutes spent on this patient more than 50% of time spent in direct patient care. Will follow
[2020-06-03] MEDS: ATORVASTATIN CALCIUM 80 MG TABLET PO SCH (23:32)
[2020-06-04] MEDS: HEPARIN SODIUM,PORCINE/D5W 25,000 UNIT/250 ML RTUINJ IV PRN (02:06)
[2020-06-04] MEDS: PREGABALIN 75 MG CAPSULE PO SCH ×3 (05:30→22:01)
[2020-06-04] MEDS: AZTREONAM 1 GM in DEXTROSE 5%-WATER 50 ML IV SCH ×3 (05:30→21:58)
[2020-06-04] MEDS: OXYCODONE HCL IR 5 MG TABLET PO PRN ×2 (05:42→14:36)
[2020-06-04 06:34] LABS: HEMATOCRIT 29.9 % (36.0-47.0); HEMOGLOBIN 9.6 g/dL (12.0-15.5); MEAN CORPUSCULAR HEMOGLOBIN 28.1 pg (27.0-33.4); MEAN CORPUSCULAR HGB CONC 32.1 g/dL (32.0-36.0); MEAN CORPUSCULAR VOLUME 88 fl (80-97); PLATELET COUNT 128 10^3/uL (150-450); RED BLOOD COUNT 3.41 10^6/uL (3.72-5.28); RED CELL DISTRIBUTION WIDTH 18.9 % (11.5-14.0); WHITE BLOOD COUNT 10.1 10^3/uL (4.0-10.5)
[2020-06-04 07:20] LABS: ABSOLUTE LYMPHOCYTES# (MANUAL) 1.5 10^3/uL (0.5-4.7); ABSOLUTE MONOCYTES # (MANUAL) 1.1 10^3/uL (0.1-1.4); BASOPHILS % (MANUAL) 1 % (0-2); EOSINOPHILS % (MANUAL) 1 % (0-6); LYMPHOCYTES % (MANUAL) 15 % (13-45); METAMYELOCYTES % (MANUAL) 1 % (0-1); MONOCYTES % (MANUAL) 11 % (3-13); SEGMENTED NEUTROPHILS % (MAN) 71 % (42-78); TOTAL CELLS COUNTED 100
[2020-06-04 07:21] LABS: PLATELET COMMENT ADEQUATE
[2020-06-04 07:22] LABS: ANISOCYTOSIS 2+
--- NOTE | 2020-06-04 07:24 | EKG REPORT ---
SEVERITY:- ABNORMAL ECG - SINUS RHYTHM FIRST DEGREE AV BLOCK LEFT VENTRICULAR HYPERTROPHY PROBABLE INFERIOR INFARCT, AGE INDETERMINATE NONSPECIFICC ANTERIOR T INVERSIONS : Confirmed by: Brody Guajardo MD 04-Jun-2020 07:23:02
[2020-06-04] MEDS: INSULIN LISPRO 100 UNIT/ML 3 ML VIAL SUBCUT SCH ×4 (07:31→21:54)
[2020-06-04] MEDS: MAGNESIUM OXIDE 400 MG TABLET PO SCH (10:34)
[2020-06-04] MEDS: CALCITRIOL 0.25 MCG CAPSULE PO SCH (10:34)
[2020-06-04] MEDS: CLOPIDOGREL BISULFATE 75 MG TABLET PO SCH (10:35)
[2020-06-04] MEDS: ALLOPURINOL 100 MG TABLET PO SCH (10:35)
[2020-06-04] MEDS: SITAGLIPTIN PHOSPHATE 50 MG TABLET PO SCH (10:35)
[2020-06-04] MEDS: METOPROLOL SUCCINATE 50 MG TAB.SR.24H PO SCH (10:36)
[2020-06-04] MEDS: HYDROMORPHONE HCL INJ/PF 2 MG/ML AMPULE IV PRN ×2 (10:36→17:28)
[2020-06-04] MEDS: FUROSEMIDE INJ/PF 20 MG/2 ML SDV IV SCH ×2 (10:37→22:01)
[2020-06-04] MEDS: ASPIRIN 81 MG TABLET, CHEWABLE PO SCH (10:39)
[2020-06-04] MEDS: CLOTRIMAZOLE/BETAMETHASONE DIP CREAM 15 GM TOP SCH ×2 (10:58→22:04)
[2020-06-04] MEDS: NYSTATIN TOPICAL POWDER 15 GM TP SCH ×2 (10:59→22:04)
[2020-06-04] MEDS: CLOBETASOL PROPIONATE 0.05% CREAM 15 GM TOP SCH ×2 (10:59→22:05)
--- NOTE | 2020-06-04 15:56 | Progress Note ---
Provider Note Provider Note: CARDIOLOGY PROGRESS NOTE by Dr. Cari Sharp on 06/04/2020 SUBJECTIVE: The patient states she is feeling better. She is able to lie flat in her bed and hence no orthopnea. Her leg edema is been much improved and is only trace edema. She denies any chest pain or discomfort. Shortness of breath is improved. There is no arrhythmias seen on the monitor. The patient sleep study was done many years ago. Hence she will require a repeat sleep study. I strongly Suspect that the patient has sleep apnea which triggers hypoxemia induced heart failure in a patient with borderline LV function and also with renal disease. PHYSICAL EXAMINATION: The patient is morbidly obese. At present in no acute distress. Selected Entries 06/04/20 16:29 Temperature 98.3 F Temperature Oral Source Pulse Rate 66 Respiratory 18 Rate Blood Pressure 117/72 Blood Pressure 87 Mean BP Location Left Arm BP Position Supine O2 Sat by Pulse 96 Oximetry Oxygen Flow 1.00 Rate Oxygen Delivery Nasal Cannula Method HEAD: Atraumatic. Normocephalic. EYES: Pupils are equal round regular reactive to light and accommodation. Extraocular movements are normal. ENT is negative. SKIN: There is no skin rashes. There is no petechia or ecchymosis. Neck is supple. There is mild JVD present. Trachea central. There is no accessory muscle respiration use. Trachea central there is no lymphadenopathy. There is no goiter. LUNGS: There is bibasilar rales present. There are scattered rhonchi and few bilateral wheezing. HEART: S1-S2 is heard. There is no S3 gallop. There is no S4 gallop. There is systolic murmur left sternal border and the apex there is no rub. ABDOMEN: Is obese. Nontender there is no hepatosplenomegaly. Bowel sounds are well heard. There is ileostomy bag in situ in the abdomen. All extremities femorals are diminished. There is no femoral bruits. Leg pulses are diminished. There is mild pedal edema. There is no DVT or cellulitis. 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 PSYCHIATRIC: The patient judgment site intact and affect is normal. Labs- All tests 24 hr 06/01/20 06/04/20 06/04/20 18:16 05:30 05:30 WBC 10.1 RBC 3.41 L Hgb 9.6 L Hct 29.9 L MCV 88 MCH 28.1 MCHC 32.1 RDW 18.9 H Plt Count 128 L Lymph % (Auto) Not Reportable Cannon % (Auto) Not Reportable Eos % (Auto) Not Reportable Baso % (Auto) Not Reportable Absolute Neuts (auto) Not Reportable Absolute Lymphs (auto) Not Reportable Absolute Monos (auto) Not Reportable Absolute Eos (auto) Not Reportable Absolute Basos (auto) Not Reportable Total Counted 100 Seg Neutrophils % Not Reportable Seg Neuts % (Manual) 71 Lymphocytes % (Manual) 15 Monocytes % (Manual) 11 Eosinophils % (Manual) 1 Basophils % (Manual) 1 Metamyelocytes % 1 Abs Neuts (Manual) 7.3 Abs Lymphs (Manual) 1.5 Abs Monocytes (Manual) 1.1 Absolute Eos (Manual) 0.1 Abs Basophils (Manual) 0.1 Platelet Comment ADEQUATE Anisocytosis 2+ APTT POC Glucose Troponin I 1.460 COVID-19 ([facility]) Not Detected 06/04/20 06/04/20 06/04/20 05:30 07:14 11:53 WBC RBC Hgb Hct MCV MCH MCHC RDW Plt Count Lymph % (Auto) Cannon % (Auto) Eos % (Auto) Baso % (Auto) Absolute Neuts (auto) Absolute Lymphs (auto) Absolute Monos (auto) Absolute Eos (auto) Absolute Basos (auto) Total Counted Seg Neutrophils % Seg Neuts % (Manual) Lymphocytes % (Manual) Monocytes % (Manual) Eosinophils % (Manual) Basophils % (Manual) Metamyelocytes % Abs Neuts (Manual) Abs Lymphs (Manual) Abs Monocytes (Manual) Absolute Eos (Manual) Abs Basophils (Manual) Platelet Comment Anisocytosis APTT 141.1 H* POC Glucose 123 H 167 H Troponin I COVID-19 ([facility]) 06/04/20 06/04/20 06/04/20 14:00 16:26 21:17 WBC RBC Hgb Hct MCV MCH MCHC RDW Plt Count Lymph % (Auto) Cannon % (Auto) Eos % (Auto) Baso % (Auto) Absolute Neuts (auto) Absolute Lymphs (auto) Absolute Monos (auto) Absolute Eos (auto) Absolute Basos (auto) Total Counted Seg Neutrophils % Seg Neuts % (Manual) Lymphocytes % (Manual) Monocytes % (Manual) Eosinophils % (Manual) Basophils % (Manual) Metamyelocytes % Abs Neuts (Manual) Abs Lymphs (Manual) Abs Monocytes (Manual) Absolute Eos (Manual) Abs Basophils (Manual) Platelet Comment Anisocytosis APTT 192.5 H* POC Glucose 249 H 129 H Troponin I COVID-19 ([facility]) 06/04/20 22:35 WBC RBC Hgb Hct MCV MCH MCHC RDW Plt Count Lymph % (Auto) Cannon % (Auto) Eos % (Auto) Baso % (Auto) Absolute Neuts (auto) Absolute Lymphs (auto) Absolute Monos (auto) Absolute Eos (auto) Absolute Basos (auto) Total Counted Seg Neutrophils % Seg Neuts % (Manual) Lymphocytes % (Manual) Monocytes % (Manual) Eosinophils % (Manual) Basophils % (Manual) Metamyelocytes % Abs Neuts (Manual) Abs Lymphs (Manual) Abs Monocytes (Manual) Absolute Eos (Manual) Abs Basophils (Manual) Platelet Comment Anisocytosis APTT > 235.0 H* POC Glucose Troponin I COVID-19 ([facility]) Abdomen/Pelvis CT 06/01/20 00:00 IMPRESSION: Mild stranding within the peritoneal fat, nonspecific but new from prior. Shotty retroperitoneal and mesenteric adenopathy, mildly progressive Chest CT 06/01/20 00:00 IMPRESSION: Chronic parenchymal lung change. Mild progressive congestive change when compared to March. Enlarged heart, stable. Chest X-Ray 06/01/20 13:33 IMPRESSION: NO ACUTE FINDINGS.Similar small left pleural effusion. IMPRESSION/RECOMMENDATION: 1. Elevated troponin I. The patient has no anginal symptoms. There is no acute changes on the EKG. Is most likely secondary to supply demand mismatch due to the patient's acute renal failure and heart failure. But in view of the patient's pre-existing coronary artery disease history of stents would agree with treating the patient with IV heparin for at least 48 hours. The patient troponin is trending down. Later would recommend IV Lexiscan Cardiolite stress test. 2. Acute on chronic systolic and diastolic heart failure: Continue diuretics. Later once the kidney function stabilizes we will see if we can start the patient on a ARB 3. Acute on chronic respiratory failure. Suspect the patient has sleep apnea obstructive and central. 4. Acute on chronic renal failure.: Avoid nephrotoxic drugs. 5. Hypertension: Continue antihypertensive. 6. Diabetes mellitus: Continue antidiabetic medication. 7. Coronary artery disease: History of old [place] and history of stent in unknown vessel most likely right coronary artery. 8. Strongly suspect sleep apnea obstructive and central. 9. Hyperlipidemia 10. Morbid obesity. 11. 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 Watch electrolytes. Medications reviewed. Medical regimen and management plan discussed with the attending provider Dr. Barakat. Medical decision making is of high c omplexity. 40 minutes spent on this patient more than 50% of time spent in direct patient care. Will follow.
--- NOTE | 2020-06-04 20:14 | PDOC PROGRESS REPORT ---
Subjective Progress Note for:: 06/04/20 Subjective:: Patient seen by the bedside ,she has negative SARS-Cov 2 infection Reason For Visit: ACUTE CHF, ACUTE KIDNEY INJURY, LEUCOCYTOSIS?CAUSE Physical Exam Vital Signs: Temp Pulse Resp BP Pulse Ox 98.3 F 66 18 117/72 97 06/04/20 16:29 06/04/20 19:00 06/04/20 16:29 06/04/20 16:29 06/04/20 16:40 Intake & Output 06/03/20 06/04/20 06/05/20 06:59 06:59 06:59 Intake Total 291 856 290 Output Total 775 400 500 Balance -484 456 -210 Weight 119.3 kg 119.3 kg General appearance: PRESENT: no acute distress Eye exam: PRESENT: PERRLA Respiratory exam: PRESENT: clear to auscultation stephen Cardiovascular exam: PRESENT: +S1, +S2 Results Laboratory Results: 06/04/20 05:30 06/02/20 04:19 06/04/20 05:30 WBC 10.1 RBC 3.41 L Hgb 9.6 L Hct 29.9 L MCV 88 MCH 28.1 MCHC 32.1 RDW 18.9 H Plt Count 128 L Seg Neutrophils % Not Reportable 06/01/20 06/01/20 06/01/20 16:08 21:50 21:50 Creatine Kinase 299 H CK-MB (CK-2) 9.98 H Troponin I 2.070 3.620 NT-Pro-B Natriuret Pep 9260 H 06/02/20 06/02/20 06/02/20 04:19 04:19 16:00 Creatine Kinase 249 H 167 H CK-MB (CK-2) 11.40 H Troponin I 3.000 NT-Pro-B Natriuret Pep 06/02/20 06/04/20 16:00 05:30 Creatine Kinase CK-MB (CK-2) 11.20 H Troponin I 2.590 1.460 NT-Pro-B Natriuret Pep Impressions: Abdomen/Pelvis CT 06/01/20 00:00 IMPRESSION: Mild stranding within the peritoneal fat, nonspecific but new from prior. Shotty retroperitoneal and mesenteric adenopathy, mildly progressive Chest CT 06/01/20 00:00 IMPRESSION: Chronic parenchymal lung change. Mild progressive congestive change when compared to March. Enlarged heart, stable. Chest X-Ray 06/01/20 13:33 IMPRESSION: NO ACUTE FINDINGS.Similar small left pleural effusion. Assessment & Plan - Diagnosis (1) NSTEMI (non-ST elevated myocardial infarction) Is this a current diagnosis for this admission?: Yes Plan: Continue IV heparin, antiplatelet aspirin and Plavix statin therapy beta-simeon (2) Acute diastolic heart failure Is this a current diagnosis for this admission?: Yes (3) Leucocytosis Qualifiers: Leukocytosis type: leukemoid reaction Qualified Code(s): D72.823 - Leukemoid reaction Is this a current diagnosis for this admission?: Yes (4) Cholelithiasis Qualifiers: Cholelithiasis location: gallbladder Cholecystitis presence: without cholecystitis Biliary obstruction: without biliary obstruction Qualified Code(s): K80.20 - Calculus of gallbladder without cholecystitis without obstruction Is this a current diagnosis for this admission?: Yes (5) Chronic kidney disease, stage 3 Is this a current diagnosis for this admission?: Yes - Time Time Spent with patient: 25-34 minutes Level of Care: IMCU Medications reviewed and adjusted accordingly: Yes Anticipated discharge: Home - Inpatient Certification Based on my medical assessment, after consideration of the patient's comorbidities, presenting symptoms, or acuity I expect that the services needed warrant INPATIENT care.: Yes I certify that my determination is in accordance with my understanding of Medicare's requirements for reasonable and necessary INPATIENT services [42 CFR 412.3e].: Yes
[2020-06-04] MEDS: ATORVASTATIN CALCIUM 80 MG TABLET PO SCH (22:01)
[2020-06-05] MEDS: HYDROMORPHONE HCL INJ/PF 2 MG/ML AMPULE IV PRN ×3 (00:56→18:14)
[2020-06-05] MEDS: HEPARIN SOD (PORCINE) 1,000 UNIT/ML 10 ML VIAL IV PRN ×2 (01:57→23:29)
[2020-06-05] MEDS: AZTREONAM 1 GM in DEXTROSE 5%-WATER 50 ML IV SCH ×3 (06:01→22:54)
[2020-06-05] MEDS: PREGABALIN 75 MG CAPSULE PO SCH ×3 (06:01→22:54)
[2020-06-05] MEDS: OXYCODONE HCL IR 5 MG TABLET PO PRN (06:01)
[2020-06-05] MEDS: INSULIN LISPRO 100 UNIT/ML 3 ML VIAL SUBCUT SCH ×4 (08:53→22:54)
[2020-06-05] MEDS ORDERED: (PENDING PHARMACY ID) (Fluconazole [Diflucan] 150 MG) PO SCH (10:00)
[2020-06-05] MEDS ORDERED: FLUCONAZOLE 100 MG TABLET PO SCH (10:00)
[2020-06-05] MEDS: CALCITRIOL 0.25 MCG CAPSULE PO SCH (10:12)
[2020-06-05] MEDS: CLOPIDOGREL BISULFATE 75 MG TABLET PO SCH (10:12)
[2020-06-05] MEDS: METOPROLOL SUCCINATE 50 MG TAB.SR.24H PO SCH (10:12)
[2020-06-05] MEDS: MAGNESIUM OXIDE 400 MG TABLET PO SCH (10:12)
[2020-06-05] MEDS: SITAGLIPTIN PHOSPHATE 50 MG TABLET PO SCH (10:12)
[2020-06-05] MEDS: ASPIRIN 81 MG TABLET, CHEWABLE PO SCH (10:12)
[2020-06-05] MEDS: ALLOPURINOL 100 MG TABLET PO SCH (10:12)
[2020-06-05] MEDS: FUROSEMIDE INJ/PF 20 MG/2 ML SDV IV SCH ×2 (10:13→22:54)
[2020-06-05] MEDS: CLOTRIMAZOLE/BETAMETHASONE DIP CREAM 15 GM TOP SCH ×2 (10:17→22:54)
[2020-06-05] MEDS: NYSTATIN TOPICAL POWDER 15 GM TP SCH ×2 (10:20→22:54)
[2020-06-05] MEDS: CLOBETASOL PROPIONATE 0.05% CREAM 15 GM TOP SCH ×2 (10:21→22:55)
--- NOTE | 2020-06-05 18:18 | PDOC PROGRESS REPORT ---
Subjective Progress Note for:: 06/05/20 Subjective:: Patient seen by the bedside ,she has negative SARS-Cov 2 infection Reason For Visit: ACUTE CHF, ACUTE KIDNEY INJURY, LEUCOCYTOSIS?CAUSE Physical Exam Vital Signs: Temp Pulse Resp BP Pulse Ox 97.8 F 72 12 126/67 H 98 06/05/20 12:01 06/05/20 14:00 06/05/20 12:01 06/05/20 12:01 06/05/20 12:01 Intake & Output 06/04/20 06/05/20 06/06/20 06:59 06:59 06:59 Intake Total 856 931 597 Output Total 400 1100 1400 Balance 706 -941 -077 Weight 119.3 kg 118.4 kg General appearance: PRESENT: no acute distress Eye exam: PRESENT: PERRLA Respiratory exam: PRESENT: clear to auscultation stephen Cardiovascular exam: PRESENT: +S1, +S2 GI/Abdominal exam: PRESENT: soft Results Laboratory Results: 06/04/20 05:30 06/02/20 04:19 06/01/20 06/01/20 06/01/20 16:08 21:50 21:50 Creatine Kinase 299 H CK-MB (CK-2) 9.98 H Troponin I 2.070 3.620 NT-Pro-B Natriuret Pep 9260 H 06/02/20 06/02/20 06/02/20 04:19 04:19 16:00 Creatine Kinase 249 H 167 H CK-MB (CK-2) 11.40 H Troponin I 3.000 NT-Pro-B Natriuret Pep 06/02/20 06/04/20 16:00 05:30 Creatine Kinase CK-MB (CK-2) 11.20 H Troponin I 2.590 1.460 NT-Pro-B Natriuret Pep Impressions: Abdomen/Pelvis CT 06/01/20 00:00 IMPRESSION: Mild stranding within the peritoneal fat, nonspecific but new from prior. Shotty retroperitoneal and mesenteric adenopathy, mildly progressive Chest CT 06/01/20 00:00 IMPRESSION: Chronic parenchymal lung change. Mild progressive congestive change when compared to March. Enlarged heart, stable. Chest X-Ray 06/01/20 13:33 IMPRESSION: NO ACUTE FINDINGS.Similar small left pleural effusion. Assessment & Plan - Diagnosis (1) NSTEMI (non-ST elevated myocardial infarction) Is this a current diagnosis for this admission?: Yes Plan: Continue IV heparin, antiplatelet aspirin and Plavix statin therapy beta-simeon (2) Acute diastolic heart failure Is this a current diagnosis for this admission?: Yes (3) Leucocytosis Qualifiers: Leukocytosis type: leukemoid reaction Qualified Code(s): D72.823 - Leukemoid reaction Is this a current diagnosis for this admission?: Yes Plan: improved (4) Cholelithiasis Qualifiers: Cholelithiasis location: gallbladder Cholecystitis presence: without cholecystitis Biliary obstruction: without biliary obstruction Qualified Code(s): K80.20 - Calculus of gallbladder without cholecystitis without obstruction Is this a current diagnosis for this admission?: Yes (5) Chronic kidney disease, stage 3 Is this a current diagnosis for this admission?: Yes - Time Time Spent with patient: 25-34 minutes Level of Care: IMCU Medications reviewed and adjusted accordingly: Yes
[2020-06-05] MEDS: ATORVASTATIN CALCIUM 80 MG TABLET PO SCH (22:54)
[2020-06-05] MEDS: HEPARIN SODIUM,PORCINE/D5W 25,000 UNIT/250 ML RTUINJ IV PRN (23:30)
[2020-06-06] MEDS: HYDROMORPHONE HCL INJ/PF 2 MG/ML AMPULE IV PRN ×4 (01:00→22:01)
[2020-06-06] MEDS: AZTREONAM 1 GM in DEXTROSE 5%-WATER 50 ML IV SCH ×3 (05:44→21:54)
[2020-06-06] MEDS: PREGABALIN 75 MG CAPSULE PO SCH ×3 (05:44→21:54)
[2020-06-06] MEDS: INSULIN LISPRO 100 UNIT/ML 3 ML VIAL SUBCUT SCH ×4 (08:13→21:54)
[2020-06-06] MEDS: NYSTATIN TOPICAL POWDER 15 GM TP SCH ×2 (09:49→21:55)
[2020-06-06] MEDS: CLOBETASOL PROPIONATE 0.05% CREAM 15 GM TOP SCH ×2 (09:50→21:55)
[2020-06-06] MEDS: CLOTRIMAZOLE/BETAMETHASONE DIP CREAM 15 GM TOP SCH ×2 (09:50→21:55)
[2020-06-06] MEDS: METOPROLOL SUCCINATE 50 MG TAB.SR.24H PO SCH (09:51)
[2020-06-06] MEDS: MAGNESIUM OXIDE 400 MG TABLET PO SCH (09:51)
[2020-06-06] MEDS: ASPIRIN 81 MG TABLET, CHEWABLE PO SCH (09:51)
[2020-06-06] MEDS: CLOPIDOGREL BISULFATE 75 MG TABLET PO SCH (09:51)
[2020-06-06] MEDS: ALLOPURINOL 100 MG TABLET PO SCH (09:52)
[2020-06-06] MEDS: SITAGLIPTIN PHOSPHATE 50 MG TABLET PO SCH (09:52)
[2020-06-06] MEDS: CALCITRIOL 0.25 MCG CAPSULE PO SCH (09:52)
[2020-06-06] MEDS: FUROSEMIDE INJ/PF 20 MG/2 ML SDV IV SCH ×2 (09:52→21:54)
[2020-06-06] MEDS: HEPARIN SODIUM,PORCINE/D5W 25,000 UNIT/250 ML RTUINJ IV PRN (10:28)
[2020-06-06 17:47] LABS: INTERNATIONAL RATION (INR) 1.11; PROTHROMBIN TIME 14.5 SEC (11.4-15.4)
[2020-06-06 17:48] LABS: PARTIAL THROMBOPLASTIN TIME 69.9 SEC (23.5-35.8)
--- NOTE | 2020-06-06 18:37 | RADIOLOGY REPORT (SQ) ---
EXAM DESCRIPTION: SHOULDER RIGHT 2 OR MORE VIEWS IMAGES COMPLETED DATE/TIME: 06/06/2020 6:17 pm REASON FOR STUDY: pain COMPARISON: None. EXAM PARAMETERS: NUMBER OF VIEWS: Three views. TECHNIQUE: AP, lateral and oblique radiographic images acquired of the right shoulder LIMITATIONS: None. FINDINGS: MINERALIZATION: Normal. BONES: No acute fracture or dislocation. No worrisome bone lesions. JOINTS: No effusion. SOFT TISSUES: No significant soft tissue swelling. No radiopaque foreign body. OTHER: Right chest port. IMPRESSION: No acute findings. TECHNICAL DOCUMENTATION: JOB ID: [id number] [place]-72 2010 [employer]- All Rights Reserved Reading location - IP/workstation name: [email or web address]
[2020-06-06] MEDS: ATORVASTATIN CALCIUM 80 MG TABLET PO SCH (21:54)
--- NOTE | 2020-06-06 22:03 | Progress Note ---
Provider Note Provider Note: CARDIOLOGY PROGRESS NOTE by Dr. Cari Sharp on 06/06/2020.. SUBJECTIVE: Although the patient denies any shortness of breath, she is on BiPAP at present. She denies any anginal chest pain. There is no PND orthopnea. There is trace leg edema. There is no arrhythmias seen. The patient last night desaturated only about 0.6% of time and her sats went down to 88 exam. Advised this the patient does require to have a sleep study as per my recommendation. PHYSICAL EXAMINATION: The patient is morbidly obese. In no acute distress. Selected Entries 06/06/20 09:22 Temperature 98.9 F Temperature Oral Source Respiratory 20 Rate Blood Pressure 148/63 H Blood Pressure 91 Mean BP Location Right Arm BP Position Sitting O2 Sat by Pulse 97 Oximetry Oxygen Delivery Room Air Method HEAD: Atraumatic. Normocephalic. EYES: Pupils are equal round regular reactive to light and accommodation. Extraocular movements are normal. ENT is negative. SKIN: There is no skin rashes. There is no petechia or ecchymosis. Neck is supple. There is mild JVD present. Trachea central. There is no accessory muscle respiration use. Trachea central there is no lymphadenopathy. There is no goiter. LUNGS: There is bibasilar rales present. There are scattered rhonchi and few bilateral wheezing. HEART: S1-S2 is heard. There is no S3 gallop. There is no S4 gallop. There is systolic murmur left sternal border and the apex there is no rub. ABDOMEN: Is obese. Nontender there is no hepatosplenomegaly. Bowel sounds are well heard. There is ileostomy bag in situ in the abdomen. All extremities femorals are diminished. There is no femoral bruits. Leg pulses are diminished. There is mild pedal edema. There is no DVT or cellulitis. 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 PSYCHIATRIC: The patient judgment site intact and affect is normal. Labs- All tests 24 hr 06/06/20 06/06/20 06/06/20 06:57 08:06 11:41 PT INR APTT 123.6 H D POC Glucose 121 H 202 H 06/06/20 06/06/20 06/06/20 16:25 16:37 21:44 PT 14.5 INR 1.11 APTT 69.9 H POC Glucose 250 H 161 H Abdomen/Pelvis CT 06/01/20 00:00 IMPRESSION: Mild stranding within the peritoneal fat, nonspecific but new from prior. Shotty retroperitoneal and mesenteric adenopathy, mildly progressive Chest CT 06/01/20 00:00 IMPRESSION: Chronic parenchymal lung change. Mild progressive congestive change when compared to March. Enlarged heart, stable. Chest X-Ray 06/01/20 13:33 IMPRESSION: NO ACUTE FINDINGS.Similar small left pleural effusion. Shoulder X-Ray 06/06/20 00:00 IMPRESSION: No acute findings. IMPRESSION/RECOMMENDATION: 1. Elevated troponin I. The patient has no anginal symptoms. There is no acute changes on the EKG. Is most likely secondary to supply demand mismatch due to the patient's acute renal failure and heart failure. But in view of the patient's pre-existing coronary artery disease history of stents would agree with treating the patient with IV heparin for at least 48 hours. The patient troponin is trending down. Later would recommend IV Lexiscan Cardiolite stress test. 2. Acute on chronic systolic and diastolic heart failure: Continue diuretics. Later once the kidney function stabilizes we will see if we can start the patient on a ARB 3. Acute on chronic respiratory failure. Suspect the patient has sleep apnea obstructive and central. 4. Acute on chronic renal failure.: Avoid nephrotoxic drugs. 5. Hypertension: Continue antihypertensive. 6. Diabetes mellitus: Continue antidiabetic medication. 7. Coronary artery disease: History of old [place] and history of stent in unknown vessel most likely right coronary artery. 8. Strongly suspect sleep apnea obstructive and central. 9. Hyperlipidemia 10. Morbid obesity. 11. 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 Watch jabari ctrolytes. Medications reviewed. Medical regimen and management plan discussed with the attending provider Dr. Barakat. Medical decision making is of high complexity. 40 minutes spent on this patient more than 50% of time spent in direct patient care. Will follow.
--- NOTE | 2020-06-06 22:17 | PDOC PROGRESS REPORT ---
Subjective Progress Note for:: 06/06/20 Subjective:: Patient seen by the bedside ,she complain of right shoulder pain ,X-Ray of the shoulder was negative Reason For Visit: ACUTE CHF, ACUTE KIDNEY INJURY, LEUCOCYTOSIS?CAUSE Physical Exam Vital Signs: Temp Pulse Resp BP Pulse Ox 98 F 67 17 126/69 H 95 06/06/20 20:00 06/06/20 20:00 06/06/20 20:00 06/06/20 20:00 06/06/20 20:00 Pulse Oximeter Nocturnal Start: 06/05/20 11:50 Freq: RTQ4 Status: Complete Protocol: Document 06/06/20 04:45 PMU (Rec: 06/06/20 06:11 PMU [id number]) Nocturnal Pulse Oximetry Equipment Usage Equipment in Use Oxygen Delivery Method (includes room Room Air air) O2 Sat by Pulse Oximetry (92-100) 93 Continuous SpO2 Machine # 7 Intake & Output 06/05/20 06/06/20 06/07/20 06:59 06:59 06:59 Intake Total 950 1057 619 Output Total 1100 1780 Balance -150 -723 619 Weight 118.4 kg 120 kg General appearance: PRESENT: no acute distress Eye exam: PRESENT: PERRLA Respiratory exam: PRESENT: clear to auscultation stephen Cardiovascular exam: PRESENT: +S1, +S2 GI/Abdominal exam: PRESENT: soft Results Laboratory Results: 06/04/20 05:30 06/02/20 04:19 06/01/20 17:58 Blood Blood Culture - Final NO GROWTH IN 5 DAYS 06/01/20 16:08 Blood Blood Culture - Final NO GROWTH IN 5 DAYS 06/01/20 06/01/20 06/01/20 16:08 21:50 21:50 Creatine Kinase 299 H CK-MB (CK-2) 9.98 H Troponin I 2.070 3.620 NT-Pro-B Natriuret Pep 9260 H 06/02/20 06/02/20 06/02/20 04:19 04:19 16:00 Creatine Kinase 249 H 167 H CK-MB (CK-2) 11.40 H Troponin I 3.000 NT-Pro-B Natriuret Pep 06/02/20 06/04/20 16:00 05:30 Creatine Kinase CK-MB (CK-2) 11.20 H Troponin I 2.590 1.460 NT-Pro-B Natriuret Pep Impressions: Abdomen/Pelvis CT 06/01/20 00:00 IMPRESSION: Mild stranding within the peritoneal fat, nonspecific but new from prior. Shotty retroperitoneal and mesenteric adenopathy, mildly progressive Chest CT 06/01/20 00:00 IMPRESSION: Chronic parenchymal lung change. Mild progressive congestive change when compared to March. Enlarged heart, stable. Chest X-Ray 06/01/20 13:33 IMPRESSION: NO ACUTE FINDINGS.Similar small left pleural effusion. Shoulder X-Ray 06/06/20 00:00 IMPRESSION: No acute findings. Assessment & Plan - Diagnosis (1) NSTEMI (non-ST elevated myocardial infarction) Is this a current diagnosis for this admission?: Yes Plan: Continue IV heparin, antiplatelet aspirin and Plavix statin therapy beta-simeon (2) Acute diastolic heart failure Is this a current diagnosis for this admission?: Yes (3) Leucocytosis Qualifiers: Leukocytosis type: leukemoid reaction Qualified Code(s): D72.823 - Leukemoid reaction Is this a current diagnosis for this admission?: Yes Plan: improved (4) Cholelithiasis Qualifiers: Cholelithiasis location: gallbladder Cholecystitis presence: without cholecystitis Biliary obstruction: without biliary obstruction Qualified Code(s): K80.20 - Calculus of gallbladder without cholecystitis without obstruction Is this a current diagnosis for this admission?: Yes (5) Chronic kidney disease, stage 3 Is this a current diagnosis for this admission?: Yes - Time Time Spent with patient: 25-34 minutes Level of Care: IMCU Medications reviewed and adjusted accordingly: Yes Anticipated discharge: Home Anticipated DC Timeframe: within 72 hours
[2020-06-07] MEDS: HEPARIN SODIUM,PORCINE/D5W 25,000 UNIT/250 ML RTUINJ IV PRN ×2 (01:44→21:21)
[2020-06-07] MEDS: PREGABALIN 75 MG CAPSULE PO SCH ×3 (05:39→21:21)
[2020-06-07] MEDS: AZTREONAM 1 GM in DEXTROSE 5%-WATER 50 ML IV SCH ×3 (05:39→21:19)
[2020-06-07] MEDS: HYDROMORPHONE HCL INJ/PF 2 MG/ML AMPULE IV PRN ×3 (05:43→18:53)
[2020-06-07 06:05] LABS: PROTHROMBIN TIME 14.4 SEC (11.4-15.4)
[2020-06-07] MEDS ORDERED: INFLUENZA QUAD (6MOS+) 2020-21 VAC 0.5 ML SYR IM ONE (08:00)
[2020-06-07] MEDS: CLOPIDOGREL BISULFATE 75 MG TABLET PO SCH (09:07)
[2020-06-07] MEDS: METOPROLOL SUCCINATE 50 MG TAB.SR.24H PO SCH (09:07)
[2020-06-07] MEDS: MAGNESIUM OXIDE 400 MG TABLET PO SCH (09:07)
[2020-06-07] MEDS: CALCITRIOL 0.25 MCG CAPSULE PO SCH (09:08)
[2020-06-07] MEDS: ALLOPURINOL 100 MG TABLET PO SCH (09:08)
[2020-06-07] MEDS: FUROSEMIDE INJ/PF 20 MG/2 ML SDV IV SCH ×2 (09:08→21:19)
[2020-06-07] MEDS: ASPIRIN 81 MG TABLET, CHEWABLE PO SCH (09:08)
[2020-06-07] MEDS: INSULIN LISPRO 100 UNIT/ML 3 ML VIAL SUBCUT SCH ×4 (09:08→22:36)
[2020-06-07] MEDS: SITAGLIPTIN PHOSPHATE 50 MG TABLET PO SCH (09:08)
[2020-06-07] MEDS: NYSTATIN TOPICAL POWDER 15 GM TP SCH ×2 (09:09→22:39)
[2020-06-07] MEDS: CLOTRIMAZOLE/BETAMETHASONE DIP CREAM 15 GM TOP SCH ×2 (09:10→21:22)
[2020-06-07] MEDS: CLOBETASOL PROPIONATE 0.05% CREAM 15 GM TOP SCH ×2 (09:10→21:22)
--- NOTE | 2020-06-07 19:18 | Progress Note ---
Provider Note Provider Note: CARDIOLOGY PROGRESS NOTE by Dr. Cari Roche on 06/07/2020. SUBJECTIVE: The patient complains of pain in the legs and also the right shoulder. He has no anginal symptoms. There is no PND orthopnea or leg edema. She denies any cough or sputum production. There is no arrhythmias seen on the monitor. The patient continues to be on heparin. The troponins have trended down. PHYSICAL EXAMINATION: The patient is morbidly obese. In no acute distress. Selected Entries 06/07/20 11:14 Temperature 97.4 F Temperature Oral Source Pulse Rate 66 Respiratory 17 Rate Blood Pressure 124/62 Blood Pressure 82 Mean BP Location Left Arm BP Position Supine O2 Sat by Pulse 99 Oximetry Oxygen Flow 2.00 Rate Oxygen Delivery Nasal Cannula Method HEAD: Atraumatic. Normocephalic. EYES: Pupils are equal round regular reactive to light and accommodation. Extraocular movements are normal. ENT is negative. SKIN: There is no skin rashes. There is no petechia or ecchymosis. Neck is supple. There is mild JVD present. Trachea central. There is no accessory muscle respiration use. Trachea central there is no lymphadenopathy. There is no goiter. LUNGS: There is bibasilar rales present. There are scattered rhonchi and few bilateral wheezing. HEART: S1-S2 is heard. There is no S3 gallop. There is no S4 gallop. There is systolic murmur left sternal border and the apex there is no rub. ABDOMEN: Is obese. Nontender there is no hepatosplenomegaly. Bowel sounds are well heard. There is ileostomy bag in situ in the abdomen. All extremities femorals are diminished. There is no femoral bruits. Leg pulses are diminished. There is mild pedal edema. There is no DVT or cellulitis. LOAN COORDINATOR: Patient is conscious awake alert oriented x3 with no focal deficits. PSYCHIATRIC: The patient judgment site intact and affect is normal. Labs- All tests 24 hr 06/07/20 06/07/20 06/07/20 05:37 08:41 11:10 PT 14.4 INR 1.10 APTT 56.0 H POC Glucose 154 H 210 H 06/07/20 06/07/20 06/07/20 14:58 16:04 21:30 PT INR APTT 83.2 H POC Glucose 277 H 171 H Abdomen/Pelvis CT 06/01/20 00:00 IMPRESSION: Mild stranding within the peritoneal fat, nonspecific but new from prior. Shotty retroperitoneal and mesenteric adenopathy, mildly progressive Chest CT 06/01/20 00:00 IMPRESSION: Chronic parenchymal lung change. Mild progressive congestive change when compared to March. Enlarged heart, stable. Chest X-Ray 06/01/20 13:33 IMPRESSION: NO ACUTE FINDINGS.Similar small left pleural effusion. Shoulder X-Ray 06/06/20 00:00 IMPRESSION: No acute findings. IMPRESSION/RECOMMENDATION: 1. Elevated troponin I. The patient has no anginal symptoms. There is no acute changes on the EKG. Is most likely secondary to supply demand mismatch due to the patient's acute renal failure and heart failure. Would recommend stopping the patient's IV heparin.. The patient troponin is trending down. Later would recommend IV Lexiscan Cardiolite stress test. 2. Acute on chronic systolic and diastolic heart failure: Continue diuretics. Later once the kidney function stabilizes we will see if we can start the patient on a ARB 3. Acute on chronic respiratory failure. Suspect the patient has sleep apnea obstructive and central. 4. Acute on chronic renal failure.: Avoid nephrotoxic drugs. 5. Hypertension: Continue antihypertensive. 6. Diabetes mellitus: Continue antidiabetic medication. 7. Coronary artery disease: History of old [place] and history of stent in unknown vessel most likely right coronary artery. 8. Strongly suspect sleep apnea obstructive and central. 9. Hyperlipidemia 10. Morbid obesity. 11. 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 Watch electrolytes. Medications reviewed. Medical regimen and management plan discussed with the attending provider Dr. Barakat. Medical decision making is of moderate complexity. 40 minutes spent on this patient more than 50% of time spent in direct patient care. Will follow.
[2020-06-07] MEDS: ATORVASTATIN CALCIUM 80 MG TABLET PO SCH (21:20)
--- NOTE | 2020-06-07 22:13 | PDOC PROGRESS REPORT ---
Subjective Progress Note for:: 06/07/20 Subjective:: Patient seen by the bedside ,she complain of right shoulder pain ,X-Ray of the shoulder was negative ,she said she does not feel well Reason For Visit: ACUTE CHF, ACUTE KIDNEY INJURY, LEUCOCYTOSIS?CAUSE Physical Exam Vital Signs: Temp Pulse Resp BP Pulse Ox 98.1 F 72 18 127/67 H 95 06/07/20 20:21 06/07/20 20:21 06/07/20 20:21 06/07/20 20:21 06/07/20 20:21 Pulse Oximeter Nocturnal Start: 06/05/20 11:50 Freq: RTQ4 Status: Complete Protocol: Document 06/06/20 04:45 PMU (Rec: 06/06/20 06:11 PMU [email or web address]) Nocturnal Pulse Oximetry Equipment Usage Equipment in Use Oxygen Delivery Method (includes room Room Air air) O2 Sat by Pulse Oximetry (92-100) 93 Continuous SpO2 Machine # 7 Intake & Output 06/06/20 06/07/20 06/08/20 06:59 06:59 06:59 Intake Total 3133 987 3486 Output Total 1780 80 1 Balance -747 263 4278 Weight 120 kg 115.8 kg General appearance: PRESENT: no acute distress Eye exam: PRESENT: PERRLA Respiratory exam: PRESENT: clear to auscultation stephen Cardiovascular exam: PRESENT: +S1, +S2 GI/Abdominal exam: PRESENT: soft Neurological exam: PRESENT: alert Results Laboratory Results: 06/04/20 05:30 06/02/20 04:19 06/01/20 17:58 Blood Blood Culture - Final NO GROWTH IN 5 DAYS 06/01/20 06/01/20 06/01/20 16:08 21:50 21:50 Creatine Kinase 299 H CK-MB (CK-2) 9.98 H Troponin I 2.070 3.620 NT-Pro-B Natriuret Pep 9260 H 06/02/20 06/02/20 06/02/20 04:19 04:19 16:00 Creatine Kinase 249 H 167 H CK-MB (CK-2) 11.40 H Troponin I 3.000 NT-Pro-B Natriuret Pep 06/02/20 06/04/20 16:00 05:30 Creatine Kinase CK-MB (CK-2) 11.20 H Troponin I 2.590 1.460 NT-Pro-B Natriuret Pep Impressions: Abdomen/Pelvis CT 06/01/20 00:00 IMPRESSION: Mild stranding within the peritoneal fat, nonspecific but new from prior. Shotty retroperitoneal and mesenteric adenopathy, mildly progressive Chest CT 06/01/20 00:00 IMPRESSION: Chronic parenchymal lung change. Mild progressive congestive change when compared to March. Enlarged heart, stable. Chest X-Ray 06/01/20 13:33 IMPRESSION: NO ACUTE FINDINGS.Similar small left pleural effusion. Shoulder X-Ray 06/06/20 00:00 IMPRESSION: No acute findings. Assessment & Plan - Diagnosis (1) NSTEMI (non-ST elevated myocardial infarction) Is this a current diagnosis for this admission?: Yes Plan: Continue IV heparin, antiplatelet aspirin and Plavix statin therapy beta-simeon (2) Acute diastolic heart failure Is this a current diagnosis for this admission?: Yes (3) Leucocytosis Qualifiers: Leukocytosis type: leukemoid reaction Qualified Code(s): D72.823 - Leukemoid reaction Is this a current diagnosis for this admission?: Yes Plan: improved (4) Cholelithiasis Qualifiers: Cholelithiasis location: gallbladder Cholecystitis presence: without cholecystitis Biliary obstruction: without biliary obstruction Qualified Code(s): K80.20 - Calculus of gallbladder without cholecystitis without obstruction Is this a current diagnosis for this admission?: Yes (5) Chronic kidney disease, stage 3 Is this a current diagnosis for this admission?: Yes - Time Time Spent with patient: 25-34 minutes Level of Care: IMCU Medications reviewed and adjusted accordingly: Yes Anticipated discharge: Home Anticipated DC Timeframe: within 72 hours
[2020-06-08] MEDS: HYDROMORPHONE HCL INJ/PF 2 MG/ML AMPULE IV PRN ×4 (01:09→21:57)
[2020-06-08] MEDS: AZTREONAM 1 GM in DEXTROSE 5%-WATER 50 ML IV SCH ×3 (05:08→22:00)
[2020-06-08] MEDS: PREGABALIN 75 MG CAPSULE PO SCH ×3 (05:09→21:54)
[2020-06-08] MEDS: INSULIN LISPRO 100 UNIT/ML 3 ML VIAL SUBCUT SCH ×4 (08:31→21:54)
[2020-06-08] MEDS: ALLOPURINOL 100 MG TABLET PO SCH (09:10)
[2020-06-08] MEDS: METOPROLOL SUCCINATE 50 MG TAB.SR.24H PO SCH (09:10)
[2020-06-08] MEDS: CLOPIDOGREL BISULFATE 75 MG TABLET PO SCH (09:10)
[2020-06-08] MEDS: CALCITRIOL 0.25 MCG CAPSULE PO SCH (09:10)
[2020-06-08] MEDS: ASPIRIN 81 MG TABLET, CHEWABLE PO SCH (09:10)
[2020-06-08] MEDS: MAGNESIUM OXIDE 400 MG TABLET PO SCH (09:10)
[2020-06-08] MEDS: SITAGLIPTIN PHOSPHATE 50 MG TABLET PO SCH (09:11)
[2020-06-08] MEDS: FUROSEMIDE INJ/PF 20 MG/2 ML SDV IV SCH ×2 (09:11→21:54)
[2020-06-08] MEDS: NYSTATIN TOPICAL POWDER 15 GM TP SCH ×2 (09:11→21:56)
[2020-06-08] MEDS: CLOTRIMAZOLE/BETAMETHASONE DIP CREAM 15 GM TOP SCH ×2 (09:11→21:56)
[2020-06-08] MEDS: CLOBETASOL PROPIONATE 0.05% CREAM 15 GM TOP SCH ×2 (09:12→21:56)
--- NOTE | 2020-06-08 16:51 | PDOC PROGRESS REPORT ---
Subjective Progress Note for:: 06/08/20 Subjective:: Patient denied any chest pain, difficulty with breathing, or palpitation. No nausea, vomiting, or abdominal pain. No fever or chills. Reason For Visit: ACUTE CHF, ACUTE KIDNEY INJURY, LEUCOCYTOSIS?CAUSE Physical Exam Vital Signs: Temp Pulse Resp BP Pulse Ox 98.4 F 66 16 98/84 L 96 06/08/20 15:56 06/08/20 15:56 06/08/20 15:56 06/08/20 15:56 06/08/20 15:56 Pulse Oximeter Nocturnal Start: 06/05/20 11:50 Freq: RTQ4 Status: Complete Protocol: Document 06/06/20 04:45 PMU (Rec: 06/06/20 06:11 PMU [email or web address]) Nocturnal Pulse Oximetry Equipment Usage Equipment in Use Oxygen Delivery Method (includes room Room Air air) O2 Sat by Pulse Oximetry (92-100) 93 Continuous SpO2 Machine # 7 Intake & Output 06/07/20 06/08/20 06/09/20 06:59 06:59 06:59 Intake Total 767 1250 358 Output Total 80 1051 Balance 687 199 358 Weight 115.8 kg 114.5 kg General appearance: PRESENT: morbidly obese Head exam: PRESENT: atraumatic, normocephalic Mouth exam: PRESENT: moist Respiratory exam: PRESENT: clear to auscultation stephen, decreased breath sounds - at lung bases Cardiovascular exam: PRESENT: RRR, +S1, +S2. ABSENT: diastolic murmur, rubs, systolic murmur Vascular exam: ABSENT: pallor GI/Abdominal exam: PRESENT: normal bowel sounds. ABSENT: tenderness Extremities exam: ABSENT: pedal edema Neurological exam: PRESENT: alert, awake Skin exam: PRESENT: dry, warm Results Laboratory Results: 06/04/20 05:30 06/02/20 04:19 06/01/20 06/01/20 06/01/20 16:08 21:50 21:50 Creatine Kinase 299 H CK-MB (CK-2) 9.98 H Troponin I 2.070 3.620 NT-Pro-B Natriuret Pep 9260 H 06/02/20 06/02/20 06/02/20 04:19 04:19 16:00 Creatine Kinase 249 H 167 H CK-MB (CK-2) 11.40 H Troponin I 3.000 NT-Pro-B Natriuret Pep 06/02/20 06/04/20 16:00 05:30 Creatine Kinase CK-MB (CK-2) 11.20 H Troponin I 2.590 1.460 NT-Pro-B Natriuret Pep Impressions: Abdomen/Pelvis CT 06/01/20 00:00 IMPRESSION: Mild stranding within the peritoneal fat, nonspecific but new from prior. Shotty retroperitoneal and mesenteric adenopathy, mildly progressive Chest CT 06/01/20 00:00 IMPRESSION: Chronic parenchymal lung change. Mild progressive congestive change when compared to March. Enlarged heart, stable. Chest X-Ray 06/01/20 13:33 IMPRESSION: NO ACUTE FINDINGS.Similar small left pleural effusion. Shoulder X-Ray 06/06/20 00:00 IMPRESSION: No acute findings. Assessment & Plan - Diagnosis (1) NSTEMI (non-ST elevated myocardial infarction) Is this a current diagnosis for this admission?: Yes Plan: Continue current medication management. (2) Acute diastolic heart failure Is this a current diagnosis for this admission?: Yes Plan: Continue current medication management. 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 (4) CKD (chronic kidney disease) stage 4, GFR 15-29 ml/min Is this a current diagnosis for this admission?: Yes Plan: Continue current medication management. (5) Morbid obesity due to excess calories Is this a current diagnosis for this admission?: Yes Plan: Continue current medication management. - Time Time Spent with patient: 25-34 minutes Level of Care: IMCU Medications reviewed and adjusted accordingly: Yes Anticipated discharge: Home with Homehealth Anticipated DC Timeframe: within 72 hours - Inpatient Certification Based on my medical assessment, after consideration of the patient's comorbidities, presenting symptoms, or acuity I expect that the services needed warrant INPATIENT care.: Yes I certify that my determination is in accordance with my understanding of Medicare's requirements for reasonable and necessary INPATIENT services [42 CFR 412.3e].: Yes Medical Necessity: Significant Comorbidiites Make Outpatient Treatment Too Risky, Need Close Monitoring Due to Risk of Patient Decompensation, Need For Continuous Telemetry Monitoring, Risk of Complication if Not Cared For in [facility], Risk of Diagnosis Which Will Require Inpatient Eval/Care/Monitoring Post Hospital Care: D/C Operator Control Room Documentation - Plan Summary Plan Summary: Continue current medication management.
[2020-06-08] MEDS: ATORVASTATIN CALCIUM 80 MG TABLET PO SCH (21:55)
--- NOTE | 2020-06-08 23:08 | Progress Note ---
Provider Note Provider Note: CARDIOLOGY progress note by Dr. Cair Sharp on 06/08/2020. SUBJECTIVE: The patient states she feels much better. She denies any chest pain or discomfort. There is no shortness of breath. There is no PND orthopnea. There is no arrhythmias seen on the monitor. PHYSICAL EXAMINATION: The patient is morbidly obese. In no acute distress Selected Entries 06/08/20 11:26 Temperature 98.1 F Temperature Oral Source Pulse Rate 61 Respiratory 16 Rate Blood Pressure 134/66 H Blood Pressure 88 Mean BP Location Right Arm BP Position Supine O2 Sat by Pulse 99 Oximetry Oxygen Flow 1.00 Rate Oxygen Delivery Nasal Cannula Method HEAD: Atraumatic. Normocephalic. EYES: Pupils are equal round regular reactive to light and accommodation. Extraocular movements are normal. ENT is negative. SKIN: There is no skin rashes. There is no petechia or ecchymosis. Neck is supple. There is mild JVD present. Trachea central. There is no accessory muscle respiration use. Trachea central there is no lymphadenopathy. There is no goiter. LUNGS: There is bibasilar rales present. There are scattered rhonchi and few bilateral wheezing. HEART: S1-S2 is heard. There is no S3 gallop. There is no S4 gallop. There is systolic murmur left sternal border and the apex there is no rub. ABDOMEN: Is obese. Nontender there is no hepatosplenomegaly. Bowel sounds are well heard. There is ileostomy bag in situ in the abdomen. All extremities femorals are diminished. There is no femoral bruits. Leg pulses are diminished. There is mild pedal edema. There is no DVT or cellulitis. SALES FACILITATOR: Patient is conscious awake alert oriented x3 with no focal deficits. PSYCHIATRIC: The patient judgment site intact and affect is normal.HEAD: Atraumatic. Normocephalic. EYES: Pupils are equal round regular reactive to light and accommodation. Extraocular movements are normal. ENT is negative. SKIN: There is no skin rashes. There is no petechia or ecchymosis. Neck is supple. There is mild JVD present. Trachea central. There is no accessory muscle respiration use. Trachea central there is no lymphadenopathy. There is no goiter. LUNGS: There is bibasilar rales present. There are scattered rhonchi and few bilateral wheezing. HEART: S1-S2 is heard. There is no S3 gallop. There is no S4 gallop. There is systolic murmur left sternal border and the apex there is no rub. ABDOMEN: Is obese. Nontender there is no hepatosplenomegaly. Bowel sounds are well heard. There is ileostomy bag in situ in the abdomen. All extremities femorals are diminished. There is no femoral bruits. Leg pulses are diminished. There is no pedal edema. There is no DVT or cellulitis. SALES FACILITATOR: Patient is conscious awake alert oriented x3 with no focal deficits. PSYCHIATRIC: The patient judgment site intact and affect is normal. Labs- All tests 24 hr 06/08/20 06/08/20 06/08/20 04:57 08:10 11:27 APTT 118.7 H POC Glucose 121 H 194 H 06/08/20 06/08/20 15:57 20:59 APTT POC Glucose 262 H 200 H Abdomen/Pelvis CT 06/01/20 00:00 IMPRESSION: Mild stranding within the peritoneal fat, nonspecific but new from prior. Shotty retroperitoneal and mesenteric adenopathy, mildly progressive Chest CT 06/01/20 00:00 IMPRESSION: Chronic parenchymal lung change. Mild progressive congestive change when compared to March. Enlarged heart, stable. Chest X-Ray 06/01/20 13:33 IMPRESSION: NO ACUTE FINDINGS.Similar small left pleural effusion. Shoulder X-Ray 06/06/20 00:00 IMPRESSION: No acute findings. IMPRESSION/RECOMMENDATION: 1. Elevated troponin I. The patient has no anginal symptoms. There is no acute changes on the EKG. Is most likely secondary to supply demand mismatch due to the patient's acute renal failure and heart failure. The patient has no chest pain or discomfort. And the troponins have trended down. Hence we will stop the patient's IV heparin and place the patient on Lovenox 30 mg subcutaneously daily for DVT prophylaxis.. 2. Acute on chronic systolic and diastolic heart failure: Continue diuretics. Later once the kidney function stabilizes we will see if we can start the patient on a ARB 3. Acute on chronic respiratory failure. Suspect the patient has sleep apnea obstructive and central. 4. Acute on chronic renal failure.: Avoid nephrotoxic drugs. 5. Hypertension: Continue antihypertensive. 6. Diabetes mellitus: Continue antidiabetic medication. 7. Coronary artery disease: History of old [place] and history of stent in unknown vessel most likely right coronary artery. 8. Strongly suspect sleep apnea obstructive and central. 9. Hyperlipidemia 10. Morbid obesity. 11. 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 Watch electrolytes. Medications reviewed. Medical regimen and management plan discussed with the attending provider Dr. Barakat. Medical decision making is of moderate complexity. 40 minutes spent on this patient more than 50% of time spent in direct patient care. Will follow.
[2020-06-09] MEDS: HYDROMORPHONE HCL INJ/PF 2 MG/ML AMPULE IV PRN ×3 (04:14→16:26)
[2020-06-09] MEDS: AZTREONAM 1 GM in DEXTROSE 5%-WATER 50 ML IV SCH ×3 (05:13→21:32)
[2020-06-09] MEDS: PREGABALIN 75 MG CAPSULE PO SCH ×3 (05:16→21:33)
[2020-06-09] MEDS: INSULIN LISPRO 100 UNIT/ML 3 ML VIAL SUBCUT SCH ×5 (08:42→21:32)
[2020-06-09] MEDS: NYSTATIN TOPICAL POWDER 15 GM TP SCH (10:12)
[2020-06-09] MEDS: CLOBETASOL PROPIONATE 0.05% CREAM 15 GM TOP SCH ×2 (10:12→21:35)
[2020-06-09] MEDS: CLOTRIMAZOLE/BETAMETHASONE DIP CREAM 15 GM TOP SCH ×2 (10:12→21:35)
[2020-06-09] MEDS: ALLOPURINOL 100 MG TABLET PO SCH (10:13)
[2020-06-09] MEDS: MAGNESIUM OXIDE 400 MG TABLET PO SCH (10:13)
[2020-06-09] MEDS: SITAGLIPTIN PHOSPHATE 50 MG TABLET PO SCH (10:13)
[2020-06-09] MEDS: CLOPIDOGREL BISULFATE 75 MG TABLET PO SCH (10:13)
[2020-06-09] MEDS: CALCITRIOL 0.25 MCG CAPSULE PO SCH (10:13)
[2020-06-09] MEDS: ASPIRIN 81 MG TABLET, CHEWABLE PO SCH (10:13)
[2020-06-09] MEDS: METOPROLOL SUCCINATE 50 MG TAB.SR.24H PO SCH (10:14)
[2020-06-09] MEDS: FUROSEMIDE INJ/PF 20 MG/2 ML SDV IV SCH ×2 (10:14→21:33)
[2020-06-09] MEDS: ENOXAPARIN SODIUM INJ 30 MG/0.3 ML DISP.SYRIN SUBCUT SCH (10:26)
--- NOTE | 2020-06-09 14:48 | PDOC PROGRESS REPORT ---
Subjective Progress Note for:: 06/09/20 Subjective:: No chest pain or difficulty with breathing. No nausea, vomiting, or abdominal pain. No fever or chills. She expressed concern about her pain medication falling off the MAR. Reason For Visit: ACUTE CHF, ACUTE KIDNEY INJURY, LEUCOCYTOSIS?CAUSE Physical Exam Vital Signs: Temp Pulse Resp BP Pulse Ox 97.4 F 71 12 118/63 99 06/09/20 07:56 06/09/20 07:00 06/09/20 05:07 06/09/20 05:07 06/09/20 08:05 Pulse Oximeter Nocturnal Start: 06/05/20 11:50 Freq: RTQ4 Status: Complete Protocol: Document 06/06/20 04:45 PMU (Rec: 06/06/20 06:11 PMU [email or web address]) Nocturnal Pulse Oximetry Equipment Usage Equipment in Use Oxygen Delivery Method (includes room Room Air air) O2 Sat by Pulse Oximetry (92-100) 93 Continuous SpO2 Machine # 7 Intake & Output 06/08/20 06/09/20 06/10/20 06:59 06:59 06:59 Intake Total 1250 850 Output Total 1051 1000 Balance 199 -150 Weight 114.5 kg 114.5 kg Physical Exam: General appearance: PRESENT: morbidly obese Head exam: PRESENT: atraumatic, normocephalic EYES: Conjunctiva pink. ABSENT: pallor, sclera icterus. Mouth exam: PRESENT: moist Respiratory exam: PRESENT: clear to auscultation stephen, decreased breath sounds - at lung bases Cardiovascular exam: PRESENT: RRR, +S1, +S2. ABSENT: diastolic murmur, rubs, systolic murmur GI/Abdominal exam: PRESENT: normal bowel sounds. ABSENT: tenderness Extremities exam: ABSENT: pedal edema Neurological exam: PRESENT: alert, awake Skin exam: PRESENT: dry, warm Results Laboratory Results: 06/04/20 05:30 06/02/20 04:19 06/01/20 06/01/20 06/01/20 16:08 21:50 21:50 Creatine Kinase 299 H CK-MB (CK-2) 9.98 H Troponin I 2.070 3.620 NT-Pro-B Natriuret Pep 9260 H 06/02/20 06/02/20 06/02/20 04:19 04:19 16:00 Creatine Kinase 249 H 167 H CK-MB (CK-2) 11.40 H Troponin I 3.000 NT-Pro-B Natriuret Pep 06/02/20 06/04/20 16:00 05:30 Creatine Kinase CK-MB (CK-2) 11.20 H Troponin I 2.590 1.460 NT-Pro-B Natriuret Pep Impressions: Abdomen/Pelvis CT 06/01/20 00:00 IMPRESSION: Mild stranding within the peritoneal fat, nonspecific but new from prior. Shotty retroperitoneal and mesenteric adenopathy, mildly progressive Chest CT 06/01/20 00:00 IMPRESSION: Chronic parenchymal lung change. Mild progressive congestive change when compared to March. Enlarged heart, stable. Chest X-Ray 06/01/20 13:33 IMPRESSION: NO ACUTE FINDINGS.Similar small left pleural effusion. Shoulder X-Ray 06/06/20 00:00 IMPRESSION: No acute findings. 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 Is this a current diagnosis for this admission?: Yes (4) CKD (chronic kidney disease) stage 4, GFR 15-29 ml/min Is this a current diagnosis for this admission?: Yes (5) Morbid obesity due to excess calories Is this a current diagnosis for this admission?: Yes - Time Time Spent with patient: 25-34 minutes Level of Care: IMCU Medications reviewed and adjusted accordingly: Yes Anticipated discharge: Home with Homehealth Anticipated DC Timeframe: within 72 hours - Inpatient Certification Based on my medical assessment, after consideration of the patient's comorbidities, presenting symptoms, or acuity I expect that the services needed warrant INPATIENT care.: Yes I certify that my determination is in accordance with my understanding of Medicare's requirements for reasonable and necessary INPATIENT services [42 CFR 412.3e].: Yes Medical Necessity: Significant Comorbidiites Make Outpatient Treatment Too Risky, Need Close Monitoring Due to Risk of Patient Decompensation, Need For Continuous Telemetry Monitoring, Need for IV Antibiotics, Risk of Complication if Not Cared For in Hospital, Risk of Diagnosis Which Will Require Inpatient Eval/Care/Monitoring Post Hospital Care: D/C Railway Signal Technician Documentation, D/C or Transfer Summary - Plan Summary Plan Summary: Continue all current medication management with renewal of her IV Dilaudid at 1mg q hours prn for pain management.
--- NOTE | 2020-06-09 20:51 | Progress Note ---
Provider Note Provider Note: CARDIOLOGY PROGRESS NOTE by Dr. Cari Sharp on 06/09/2020. SUBJECTIVE: The patient denies any chest pain or discomfort. There is no shortness of breath. There is no PND orthopnea. There is no leg edema. There is no arrhythmias seen on the monitor. There is no TIA CVA symptoms. PHYSICAL EXAMINATION: The patient is morbidly obese. At present in no acute distress Selected Entries 06/09/20 17:07 Temperature 97.3 F Temperature Oral Source Pulse Rate 67 Respiratory 19 Rate Blood Pressure 120/73 Blood Pressure 88 Mean BP Location Left Arm BP Position Supine O2 Sat by Pulse 96 Oximetry Oxygen Flow 2.00 Rate Oxygen Delivery Nasal Cannula Method HEAD: Atraumatic. Normocephalic. EYES: Pupils are equal round regular reactive to light and accommodation. Extraocular movements are normal. ENT is negative. SKIN: There is no skin rashes. There is no petechia or ecchymosis. Neck is supple. There is mild JVD present. Trachea central. There is no accessory muscle respiration use. Trachea central there is no lymphadenopathy. There is no goiter. LUNGS: There is bibasilar rales present. There are scattered rhonchi and few bilateral wheezing. HEART: S1-S2 is heard. There is no S3 gallop. There is no S4 gallop. There is systolic murmur left sternal border and the apex there is no rub. ABDOMEN: Is obese. Nontender there is no hepatosplenomegaly. Bowel sounds are well heard. There is ileostomy bag in situ in the abdomen. All extremities femorals are diminished. There is no femoral bruits. Leg pulses are diminished. There is mild pedal edema. There is no DVT or cellulitis. MID LEVEL PRACTITIONER: Patient is conscious awake alert oriented x3 with no focal deficits. PSYCHIATRIC: The patient judgment site intact and affect is normal.HEAD: Atraumatic. Normocephalic. EYES: Pupils are equal round regular reactive to light and accommodation. Extraocular movements are normal. ENT is negative. SKIN: There is no skin rashes. There is no petechia or ecchymosis. Neck is supple. There is mild JVD present. Trachea central. There is no accessory muscle respiration use. Trachea central there is no lymphadenopathy. There is no goiter. LUNGS: There is bibasilar rales present. There are scattered rhonchi and few bilateral wheezing. HEART: S1-S2 is heard. There is no S3 gallop. There is no S4 gallop. There is systolic murmur left sternal border and the apex there is no rub. ABDOMEN: Is obese. Nontender there is no hepatosplenomegaly. Bowel sounds are well heard. There is ileostomy bag in situ in the abdomen. All extremities femorals are diminished. There is no femoral bruits. Leg pulses are diminished. There is no pedal edema. There is no DVT or cellulitis. MID LEVEL PRACTITIONER: Patient is conscious awake alert oriented x3 with no focal deficits. PSYCHIATRIC: The patient judgment site intact and affect is normal. Labs- All tests 24 hr 06/09/20 06/09/20 06/09/20 08:32 12:14 17:04 POC Glucose 228 H 256 H 221 H 06/09/20 20:32 POC Glucose 234 H Abdomen/Pelvis CT 06/01/20 00:00 IMPRESSION: Mild stranding within the peritoneal fat, nonspecific but new from prior. Shotty retroperitoneal and mesenteric adenopathy, mildly progressive Chest CT 06/01/20 00:00 IMPRESSION: Chronic parenchymal lung change. Mild progressive congestive change when compared to March. Enlarged heart, stable. Chest X-Ray 06/01/20 13:33 IMPRESSION: NO ACUTE FINDINGS.Similar small left pleural effusion. Shoulder X-Ray 06/06/20 00:00 IMPRESSION: No acute findings. IMPRESSION/RECOMMENDATION: 1. Elevated troponin I. The patient has no anginal symptoms. There is no acute changes on the EKG. Is most likely secondary to supply demand mismatch due to the patient's acute renal failure and heart failure. The patient has no chest pain or discomfort. And the troponins have trended down. Hence we will stop the patient's IV heparin and place the patient on Lovenox 30 mg subcutaneously daily for DVT prophylaxis.. 2. Acute on chronic systolic and diastolic heart failure: Continue diuretics. Later once the kidney function stabilizes we will see if we can start the patient on a ARB 3. Acute on chronic respiratory failure. Suspect the patient has sleep apnea obstructive and central. 4. Acute on chronic renal failure.: Avoid nephrotoxic drugs. 5. Hypertension: Continue antihypertensive. 6. Diabetes mellitus: Continue antidiabetic medication. 7. Coronary artery disease: History of old SC and history of stent in unknown vessel most likely right coronary artery. 8. Strongly suspect sleep apnea obstructive and central. 9. Hyperlipidemia 10. Morbid obesity. 11. 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 Watch electrolytes. Medications reviewed. Medical regimen and management plan discussed with the attending provider Dr. Barakat. Medical decision making is of moderate complexity. 40 minutes spent on this patient more than 50% of time spent in direct patient care. Will follow.
[2020-06-09] MEDS: ATORVASTATIN CALCIUM 80 MG TABLET PO SCH (21:33)
[2020-06-10] MEDS: HYDROMORPHONE HCL INJ/PF 2 MG/ML AMPULE IV PRN ×3 (00:50→19:15)
[2020-06-10] MEDS: PREGABALIN 75 MG CAPSULE PO SCH ×3 (06:06→22:37)
[2020-06-10] MEDS: AZTREONAM 1 GM in DEXTROSE 5%-WATER 50 ML IV SCH ×3 (06:06→22:37)
[2020-06-10] MEDS: INSULIN LISPRO 100 UNIT/ML 3 ML VIAL SUBCUT SCH ×4 (09:00→22:36)
[2020-06-10] MEDS: CALCITRIOL 0.25 MCG CAPSULE PO SCH (10:28)
[2020-06-10] MEDS: FUROSEMIDE INJ/PF 20 MG/2 ML SDV IV SCH ×2 (10:29→22:37)
[2020-06-10] MEDS: MAGNESIUM OXIDE 400 MG TABLET PO SCH (10:29)
[2020-06-10] MEDS: METOPROLOL SUCCINATE 50 MG TAB.SR.24H PO SCH (10:29)
[2020-06-10] MEDS: ENOXAPARIN SODIUM INJ 30 MG/0.3 ML DISP.SYRIN SUBCUT SCH ×2 (10:29→10:34)
[2020-06-10] MEDS: CLOPIDOGREL BISULFATE 75 MG TABLET PO SCH (10:30)
[2020-06-10] MEDS: ALLOPURINOL 100 MG TABLET PO SCH (10:30)
[2020-06-10] MEDS: SITAGLIPTIN PHOSPHATE 50 MG TABLET PO SCH (10:30)
[2020-06-10] MEDS: ASPIRIN 81 MG TABLET, CHEWABLE PO SCH (10:30)
[2020-06-10] MEDS: CLOBETASOL PROPIONATE 0.05% CREAM 15 GM TOP SCH ×2 (10:32→22:38)
[2020-06-10] MEDS: CLOTRIMAZOLE/BETAMETHASONE DIP CREAM 15 GM TOP SCH ×2 (10:32→22:38)
[2020-06-10 11:27] LABS: ABSOLUTE EOSINOPHILS # (AUTO) 0.4 10^3/uL (0.0-0.6); ABSOLUTE LYMPHOCYTES (AUTO) 1.3 10^3/uL (0.5-4.7); ABSOLUTE MONOCYTES (AUTO) 0.7 10^3/uL (0.1-1.4); ABSOLUTE NEUT (AUTO) 6.3 10^3/uL (1.7-8.2); BASOPHILS % (AUTO) 0.5 % (0-2); EOSINOPHILS % (AUTO) 4.9 % (0-6); HEMATOCRIT 31.2 % (36.0-47.0); HEMOGLOBIN 10.1 g/dL (12.0-15.5); LYMPHOCYTES % (AUTO) 15.2 % (13-45); MEAN CORPUSCULAR HEMOGLOBIN 27.7 pg (27.0-33.4); MEAN CORPUSCULAR HGB CONC 32.3 g/dL (32.0-36.0); MEAN CORPUSCULAR VOLUME 86 fl (80-97); PLATELET COUNT 149 10^3/uL (150-450); RED BLOOD COUNT 3.63 10^6/uL (3.72-5.28); RED CELL DISTRIBUTION WIDTH 18.2 % (11.5-14.0); SEGMENTED NEUTROPHILS % (AUTO) 71.4 % (42-78); TOTAL CELLS COUNTED % (AUTO) 100 %; WHITE BLOOD COUNT 8.9 10^3/uL (4.0-10.5)
[2020-06-10 11:54] LABS: ANION GAP 9 (5-19); BLOOD UREA NITROGEN 31 mg/dL (7-20); CALCIUM 10.2 mg/dL (8.4-10.2); CARBON DIOXIDE 27 mmol/L (22-30); CHLORIDE 102 mmol/L (98-107); GLUCOSE 241 mg/dL (75-110); POTASSIUM 4.7 mmol/L (3.6-5.0)
--- NOTE | 2020-06-10 13:30 | Progress Note ---
Provider Note Provider Note: CARDIOLOGY progress note by Dr. Cari Sharp on 06/10/2020. SUBJECTIVE: The patient states she feels much better. She denies any chest pain or discomfort. There is no shortness of breath. There is no PND orthopnea. There is no arrhythmias seen on the monitor. PHYSICAL EXAMINATION: The patient is morbidly obese. In no acute distress Selected Entries 06/10/20 11:58 Temperature 98.2 F Temperature Oral Source Pulse Rate 69 Respiratory 18 Rate Blood Pressure 115/60 Blood Pressure 78 Mean BP Location Right Arm BP Position Sitting O2 Sat by Pulse 97 Oximetry Oxygen Delivery Room Air Method HEAD: Atraumatic. Normocephalic. EYES: Pupils are equal round regular reactive to light and accommodation. Extraocular movements are normal. ENT is negative. SKIN: There is no skin rashes. There is no petechia or ecchymosis. Neck is supple. There is mild JVD present. Trachea central. There is no accessory muscle respiration use. Trachea central there is no lymphadenopathy. There is no goiter. LUNGS: There is bibasilar rales present. There are scattered rhonchi and few bilateral wheezing. HEART: S1-S2 is heard. There is no S3 gallop. There is no S4 gallop. There is systolic murmur left sternal border and the apex there is no rub. ABDOMEN: Is obese. Nontender there is no hepatosplenomegaly. Bowel sounds are well heard. There is ileostomy bag in situ in the abdomen. All extremities femorals are diminished. There is no femoral bruits. Leg pulses are diminished. There is mild pedal edema. There is no DVT or cellulitis. POSITIVE PRINTER OPERATOR: Patient is conscious awake alert oriented x3 with no focal deficits. PSYCHIATRIC: The patient judgment site intact and affect is normal.HEAD: Atraumatic. Normocephalic. EYES: Pupils are equal round regular reactive to light and accommodation. Extraocular movements are normal. ENT is negative. SKIN: There is no skin rashes. There is no petechia or ecchymosis. Neck is supple. There is mild JVD present. Trachea central. There is no accessory muscle respiration use. Trachea central there is no lymphadenopathy. There is no goiter. LUNGS: There is bibasilar rales present. There are scattered rhonchi and few bilateral wheezing. HEART: S1-S2 is heard. There is no S3 gallop. There is no S4 gallop. There is systolic murmur left sternal border and the apex there is no rub. ABDOMEN: Is obese. Nontender there is no hepatosplenomegaly. Bowel sounds are well heard. There is ileostomy bag in situ in the abdomen. All extremities femorals are diminished. There is no femoral bruits. Leg pulses are diminished. There is no pedal edema. There is no DVT or cellulitis. POSITIVE PRINTER OPERATOR: Patient is conscious awake alert oriented x3 with no focal deficits. PSYCHIATRIC: The patient judgment site intact and affect is normal. Labs- All tests 24 hr 06/09/20 06/09/20 06/10/20 17:04 20:32 07:53 WBC RBC Hgb Hct MCV MCH MCHC RDW Plt Count Lymph % (Auto) [place] % (Auto) Eos % (Auto) Baso % (Auto) Absolute Neuts (auto) Absolute Lymphs (auto) Absolute Monos (auto) Absolute Eos (auto) Absolute Basos (auto) Seg Neutrophils % Sodium Potassium Chloride Carbon Dioxide Anion Gap BUN Creatinine Est GFR ( Amer) Est GFR (MDRD) Non-Af Glucose POC Glucose 221 H 234 H 198 H Calcium 06/10/20 06/10/20 06/10/20 10:45 10:45 11:56 WBC 8.9 RBC 3.63 L Hgb 10.1 L Hct 31.2 L MCV 86 MCH 27.7 MCHC 32.3 RDW 18.2 H Plt Count 149 L Lymph % (Auto) 15.2 [place] % (Auto) 8.0 Eos % (Auto) 4.9 Baso % (Auto) 0.5 Absolute Neuts (auto) 6.3 Absolute Lymphs (auto) 1.3 Absolute Monos (auto) 0.7 Absolute Eos (auto) 0.4 Absolute Basos (auto) 0.0 Seg Neutrophils % 71.4 Sodium 138.4 Potassium 4.7 Chloride 102 Carbon Dioxide 27 Anion Gap 9 BUN 31 H Creatinine 1.84 H Est GFR ( Amer) 34 L Est GFR (MDRD) Non-Af 28 L Glucose 241 H POC Glucose 256 H Calcium 10.2 06/10/20 16:48 WBC RBC Hgb Hct MCV MCH MCHC RDW Plt Count Lymph % (Auto) [place] % (Auto) Eos % (Auto) Baso % (Auto) Absolute Neuts (auto) Absolute Lymphs (auto) Absolute Monos (auto) Absolute Eos (auto) Absolute Basos (auto) Seg Neutrophils % Sodium Potassium Chloride Carbon Dioxide Anion Gap BUN Creatinine Est GFR ( Amer) Est GFR (MDRD) Non-Af Glucose POC Glucose 198 H Calcium Abdomen/Pelvis CT 06/01/20 00:00 IMPRESSION: Mild stranding within the peritoneal fat, nonspecific but new from prior. Shotty retroperitoneal and mesenteric adenopathy, mildly progressive Chest CT 06/01/20 00:00 IMPRESSION: Chronic parenchymal lung change. Mild progressive congestive change when compared to March. Enlarged heart, stable. Chest X-Ray 06/01/20 13:33 IMPRESSION: NO ACUTE FINDINGS.Similar small left pleural effusion. Shoulder X-Ray 06/06/20 00:00 IMPRESSION: No acute findings. IMPRESSION/RECOMMENDATION: 1. Elevated troponin I. The patient has no anginal symptoms. There is no acute changes on the EKG. Is most likely secondary to supply demand mismatch due to the patient's acute renal failure and heart failure. The patient has no chest pain or discomfort. And the troponins have trended down. Hence we will s top the patient's IV heparin and place the patient on Lovenox 30 mg subcutaneously daily for DVT prophylaxis.. 2. Acute on chronic systolic and diastolic heart failure: Continue diuretics. Later once the kidney function stabilizes we will see if we can start the patient on a ARB 3. Acute on chronic respiratory failure. Suspect the patient has sleep apnea obstructive and central. 4. Acute on chronic renal failure.: Avoid nephrotoxic drugs. 5. Hypertension: Continue antihypertensive. 6. Diabetes mellitus: Continue antidiabetic medication. 7. Coronary artery disease: History of old SC and history of stent in unknown vessel most likely right coronary artery. 8. Strongly suspect sleep apnea obstructive and central. 9. Hyperlipidemia 10. Morbid obesity. 11. 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 Watch electrolytes. Medications reviewed. Medical regimen and management plan discussed with the attending provider Dr. Barakat. Medical decision making is of moderate complexity. 40 minutes spent on this patient more than 50% of time spent in direct patient care cardiac status is stable.. Will sign off and follow the patient in the office.
--- NOTE | 2020-06-10 21:09 | PDOC PROGRESS REPORT ---
Subjective Progress Note for:: 06/10/20 Subjective:: Patient seen by the bedside Reason For Visit: ACUTE CHF, ACUTE KIDNEY INJURY, LEUCOCYTOSIS?CAUSE Physical Exam Vital Signs: Temp Pulse Resp BP Pulse Ox 98.5 F 77 15 120/66 96 06/10/20 17:23 06/10/20 17:23 06/10/20 17:23 06/10/20 17:23 06/10/20 17:23 Pulse Oximeter Nocturnal Start: 06/05/20 11:50 Freq: RTQ4 Status: Complete Protocol: Document 06/06/20 04:45 PMU (Rec: 06/06/20 06:11 PMU [email or web address]) Nocturnal Pulse Oximetry Equipment Usage Equipment in Use Oxygen Delivery Method (includes room Room Air air) O2 Sat by Pulse Oximetry (92-100) 93 Continuous SpO2 Machine # 7 Intake & Output 06/09/20 06/10/20 06/11/20 06:59 06:59 06:59 Intake Total 714 308 9773 Output Total 1000 2410 500 Balance -150 -1490 980 Weight 114.5 kg 114.5 kg 114.5 kg General appearance: PRESENT: no acute distress Eye exam: PRESENT: PERRLA Respiratory exam: PRESENT: clear to auscultation stephen Cardiovascular exam: PRESENT: +S1, +S2 GI/Abdominal exam: PRESENT: soft Results Laboratory Results: 06/10/20 10:45 06/10/20 10:45 06/10/20 06/10/20 10:45 10:45 WBC 8.9 RBC 3.63 L Hgb 10.1 L Hct 31.2 L MCV 86 MCH 27.7 MCHC 32.3 RDW 18.2 H Plt Count 149 L Seg Neutrophils % 71.4 Sodium 138.4 Potassium 4.7 Chloride 102 Carbon Dioxide 27 Anion Gap 9 BUN 31 H Creatinine 1.84 H Est GFR ( Amer) 34 L Glucose 241 H Calcium 10.2 06/01/20 06/01/20 06/01/20 16:08 21:50 21:50 Creatine Kinase 299 H CK-MB (CK-2) 9.98 H Troponin I 2.070 3.620 NT-Pro-B Natriuret Pep 9260 H 06/02/20 06/02/20 06/02/20 04:19 04:19 16:00 Creatine Kinase 249 H 167 H CK-MB (CK-2) 11.40 H Troponin I 3.000 NT-Pro-B Natriuret Pep 06/02/20 06/04/20 16:00 05:30 Creatine Kinase CK-MB (CK-2) 11.20 H Troponin I 2.590 1.460 NT-Pro-B Natriuret Pep Impressions: Abdomen/Pelvis CT 06/01/20 00:00 IMPRESSION: Mild stranding within the peritoneal fat, nonspecific but new from prior. Shotty retroperitoneal and mesenteric adenopathy, mildly progressive Chest CT 06/01/20 00:00 IMPRESSION: Chronic parenchymal lung change. Mild progressive congestive change when compared to March. Enlarged heart, stable. Chest X-Ray 06/01/20 13:33 IMPRESSION: NO ACUTE FINDINGS.Similar small left pleural effusion. Shoulder X-Ray 06/06/20 00:00 IMPRESSION: No acute findings. Assessment & Plan - Diagnosis (1) NSTEMI (non-ST elevated myocardial infarction) Is this a current diagnosis for this admission?: Yes (2) Acute diastolic heart failure Is this a current diagnosis for this admission?: Yes (3) Leucocytosis Qualifiers: Leukocytosis type: leukemoid reaction Qualified Code(s): D72.823 - Leukemoi d reaction Is this a current diagnosis for this admission?: Yes Plan: improved (4) Cholelithiasis Qualifiers: Cholelithiasis location: gallbladder Cholecystitis presence: without cholecystitis Biliary obstruction: without biliary obstruction Qualified Code(s): K80.20 - Calculus of gallbladder without cholecystitis without obstruction Is this a current diagnosis for this admission?: Yes (5) Chronic kidney disease, stage 3 Is this a current diagnosis for this admission?: Yes - Time Time Spent with patient: 35 or more minutes Level of Care: IMCU Medications reviewed and adjusted accordingly: Yes Anticipated discharge: Home Anticipated DC Timeframe: within 72 hours - Plan Summary Plan Summary: Patient may require home oxygen I will consult discharge planning to arrange for that
[2020-06-10] MEDS: ATORVASTATIN CALCIUM 80 MG TABLET PO SCH (22:37)
[2020-06-11] MEDS: HYDROMORPHONE HCL INJ/PF 2 MG/ML AMPULE IV PRN ×4 (04:47→23:18)
[2020-06-11] MEDS: AZTREONAM 1 GM in DEXTROSE 5%-WATER 50 ML IV SCH ×3 (05:12→22:59)
[2020-06-11] MEDS: PREGABALIN 75 MG CAPSULE PO SCH ×3 (05:12→22:59)
[2020-06-11] MEDS: INSULIN LISPRO 100 UNIT/ML 3 ML VIAL SUBCUT SCH ×4 (08:18→22:58)
[2020-06-11] MEDS: CALCITRIOL 0.25 MCG CAPSULE PO SCH (09:26)
[2020-06-11] MEDS: ASPIRIN 81 MG TABLET, CHEWABLE PO SCH (09:26)
[2020-06-11] MEDS: CLOPIDOGREL BISULFATE 75 MG TABLET PO SCH (09:26)
[2020-06-11] MEDS: MAGNESIUM OXIDE 400 MG TABLET PO SCH (09:27)
[2020-06-11] MEDS: SITAGLIPTIN PHOSPHATE 50 MG TABLET PO SCH (09:27)
[2020-06-11] MEDS: CLOBETASOL PROPIONATE 0.05% CREAM 15 GM TOP SCH ×2 (09:27→22:59)
[2020-06-11] MEDS: ALLOPURINOL 100 MG TABLET PO SCH (09:27)
[2020-06-11] MEDS: METOPROLOL SUCCINATE 50 MG TAB.SR.24H PO SCH (09:27)
[2020-06-11] MEDS: CLOTRIMAZOLE/BETAMETHASONE DIP CREAM 15 GM TOP SCH ×2 (09:28→22:59)
[2020-06-11] MEDS: ENOXAPARIN SODIUM INJ 30 MG/0.3 ML DISP.SYRIN SUBCUT SCH (09:28)
[2020-06-11] MEDS: FUROSEMIDE INJ/PF 20 MG/2 ML SDV IV SCH ×2 (09:28→22:59)
--- NOTE | 2020-06-11 21:39 | PDOC PROGRESS REPORT ---
Subjective Progress Note for:: 06/11/20 Subjective:: Patient seen by the bedside,hopefully discharge home soon Reason For Visit: ACUTE CHF, ACUTE KIDNEY INJURY, LEUCOCYTOSIS?CAUSE Physical Exam Vital Signs: Temp Pulse Resp BP Pulse Ox 98.4 F 70 17 132/73 H 93 06/11/20 20:30 06/11/20 20:30 06/11/20 20:30 06/11/20 20:30 06/11/20 20:30 Pulse Oximeter Nocturnal Start: 06/05/20 11:50 Freq: RTQ4 Status: Complete Protocol: Document 06/06/20 04:45 PMU (Rec: 06/06/20 06:11 PMU [email or web address]) Nocturnal Pulse Oximetry Equipment Usage Equipment in Use Oxygen Delivery Method (includes room Room Air air) O2 Sat by Pulse Oximetry (92-100) 93 Continuous SpO2 Machine # 7 Intake & Output 06/10/20 06/11/20 06/12/20 06:59 06:59 06:59 Intake Total 920 1690 240 Output Total 2410 700 Balance -1490 990 240 Weight 114.5 kg 114.8 kg General appearance: PRESENT: no acute distress Eye exam: PRESENT: PERRLA Respiratory exam: PRESENT: clear to auscultation stephen Cardiovascular exam: PRESENT: +S1, +S2 GI/Abdominal exam: PRESENT: soft Results Laboratory Results: 06/10/20 10:45 06/10/20 10:45 06/01/20 06/01/20 06/01/20 16:08 21:50 21:50 Creatine Kinase 299 H CK-MB (CK-2) 9.98 H Troponin I 2.070 3.620 NT-Pro-B Natriuret Pep 9260 H 06/02/20 06/02/20 06/02/20 04:19 04:19 16:00 Creatine Kinase 249 H 167 H CK-MB (CK-2) 11.40 H Troponin I 3.000 NT-Pro-B Natriuret Pep 06/02/20 06/04/20 16:00 05:30 Creatine Kinase CK-MB (CK-2) 11.20 H Troponin I 2.590 1.460 NT-Pro-B Natriuret Pep Impressions: Abdomen/Pelvis CT 06/01/20 00:00 IMPRESSION: Mild stranding within the peritoneal fat, nonspecific but new from prior. Shotty retroperitoneal and mesenteric adenopathy, mildly progressive Chest CT 06/01/20 00:00 IMPRESSION: Chronic parenchymal lung change. Mild progressive congestive change when compared to March. Enlarged heart, stable. Chest X-Ray 06/01/20 13:33 IMPRESSION: NO ACUTE FINDINGS.Similar small left pleural effusion. Shoulder X-Ray 06/06/20 00:00 IMPRESSION: No acute findings. Assessment & Plan - Diagnosis (1) NSTEMI (non-ST elevated myocardial infarction) Is this a current diagnosis for this admission?: Yes (2) Acute diastolic heart failure Is this a current diagnosis for this admission?: Yes (3) Leucocytosis Qualifiers: Leukocytosis type: leukemoid reaction Qualified Code(s): D72.823 - Leuke moid reaction Is this a current diagnosis for this admission?: Yes (4) Cholelithiasis Qualifiers: Cholelithiasis location: gallbladder Cholecystitis presence: without cholecystitis Biliary obstruction: without biliary obstruction Qualified Code(s): K80.20 - Calculus of gallbladder without cholecystitis without obstruction Is this a current diagnosis for this admission?: Yes (5) Chronic kidney disease, stage 3 Is this a current diagnosis for this admission?: Yes - Time Time Spent with patient: 15-24 minutes Level of Care: IMCU Medications reviewed and adjusted accordingly: Yes Anticipated discharge: Home Anticipated DC Timeframe: within 48 hours
[2020-06-11] MEDS: ATORVASTATIN CALCIUM 80 MG TABLET PO SCH (22:59)
[2020-06-12] MEDS: AZTREONAM 1 GM in DEXTROSE 5%-WATER 50 ML IV SCH ×3 (06:01→21:58)
[2020-06-12] MEDS: HYDROMORPHONE HCL INJ/PF 2 MG/ML AMPULE IV PRN ×3 (06:01→18:29)
[2020-06-12] MEDS: PREGABALIN 75 MG CAPSULE PO SCH ×3 (06:01→21:00)
[2020-06-12] MEDS: INSULIN LISPRO 100 UNIT/ML 3 ML VIAL SUBCUT SCH ×4 (11:11→21:59)
[2020-06-12] MEDS: ALLOPURINOL 100 MG TABLET PO SCH (11:48)
[2020-06-12] MEDS: CALCITRIOL 0.25 MCG CAPSULE PO SCH (11:48)
[2020-06-12] MEDS: CLOPIDOGREL BISULFATE 75 MG TABLET PO SCH (11:48)
[2020-06-12] MEDS: METOPROLOL SUCCINATE 50 MG TAB.SR.24H PO SCH (11:48)
[2020-06-12] MEDS: ENOXAPARIN SODIUM INJ 30 MG/0.3 ML DISP.SYRIN SUBCUT SCH (11:48)
[2020-06-12] MEDS: SITAGLIPTIN PHOSPHATE 50 MG TABLET PO SCH (11:48)
[2020-06-12] MEDS: MAGNESIUM OXIDE 400 MG TABLET PO SCH (11:48)
[2020-06-12] MEDS: ASPIRIN 81 MG TABLET, CHEWABLE PO SCH (11:48)
[2020-06-12] MEDS: FUROSEMIDE INJ/PF 20 MG/2 ML SDV IV SCH ×2 (11:49→22:08)
[2020-06-12] MEDS: CLOBETASOL PROPIONATE 0.05% CREAM 15 GM TOP SCH ×2 (11:50→22:07)
[2020-06-12] MEDS: CLOTRIMAZOLE/BETAMETHASONE DIP CREAM 15 GM TOP SCH ×2 (11:50→22:07)
--- NOTE | 2020-06-12 20:33 | PDOC PROGRESS REPORT ---
Subjective Progress Note for:: 06/12/20 Subjective:: Patient seen by the bedside,hopefully discharge home soon Reason For Visit: ACUTE CHF, ACUTE KIDNEY INJURY, LEUCOCYTOSIS?CAUSE Physical Exam Vital Signs: Temp Pulse Resp BP Pulse Ox 98.3 F 73 19 112/64 93 06/12/20 16:04 06/12/20 16:04 06/12/20 16:04 06/12/20 16:04 06/12/20 16:04 Pulse Oximeter Nocturnal Start: 06/05/20 11:50 Freq: RTQ4 Status: Complete Protocol: Document 06/06/20 04:45 PMU (Rec: 06/06/20 06:11 PMU [email or web address]) Nocturnal Pulse Oximetry Equipment Usage Equipment in Use Oxygen Delivery Method (includes room Room Air air) O2 Sat by Pulse Oximetry (92-100) 93 Continuous SpO2 Machine # 7 Intake & Output 06/11/20 06/12/20 06/13/20 06:59 06:59 06:59 Intake Total 1690 240 835 Output Total 700 500 Balance 990 240 335 Weight 114.8 kg 113.2 kg General appearance: PRESENT: no acute distress Eye exam: PRESENT: PERRLA Respiratory exam: PRESENT: clear to auscultation stephen Cardiovascular exam: PRESENT: +S1, +S2 GI/Abdominal exam: PRESENT: soft Neurological exam: PRESENT: alert Results Laboratory Results: 06/10/20 10:45 06/10/20 10:45 06/01/20 06/01/20 06/01/20 16:08 21:50 21:50 Creatine Kinase 299 H CK-MB (CK-2) 9.98 H Troponin I 2.070 3.620 NT-Pro-B Natriuret Pep 9260 H 06/02/20 06/02/20 06/02/20 04:19 04:19 16:00 Creatine Kinase 249 H 167 H CK-MB (CK-2) 11.40 H Troponin I 3.000 NT-Pro-B Natriuret Pep 06/02/20 06/04/20 16:00 05:30 Creatine Kinase CK-MB (CK-2) 11.20 H Troponin I 2.590 1.460 NT-Pro-B Natriuret Pep Impressions: Abdomen/Pelvis CT 06/01/20 00:00 IMPRESSION: Mild stranding within the peritoneal fat, nonspecific but new from prior. Shotty retroperitoneal and mesenteric adenopathy, mildly progressive Chest CT 06/01/20 00:00 IMPRESSION: Chronic parenchymal lung change. Mild progressive congestive change when compared to March. Enlarged heart, stable. Chest X-Ray 06/01/20 13:33 IMPRESSION: NO ACUTE FINDINGS.Similar small left pleural effusion. Shoulder X-Ray 06/06/20 00:00 IMPRESSION: No acute findings. Assessment & Plan - Diagnosis (1) NSTEMI (non-ST elevated myocardial infarction) Is this a current diagnosis for this admission?: Yes (2) Acute diastolic heart failure Is this a current diagnosis for this admission?: Yes (3) Leucocytosis Qualifiers: Leukocytosis type: leukemoid reaction Qualified Code(s): D72.823 - Leukemoid reaction Is this a current diagnosis for this admission?: Yes (4) Cholelithiasis Qualifiers: Cholelithiasis location: gallbladder Cholecystitis presence: without cholecystitis Biliary obstruction: without biliary obstruction Qualified Code(s): K80.20 - Calculus of gallbladder without cholecystitis without obstruction Is this a current diagnosis for this admission?: Yes (5) Chronic kidney disease, stage 3 Is this a current diagnosis for this admission?: Yes - Time Time Spent with patient: 15-24 minutes - Inpatient Certification Based on my medical assessment, after consideration of the patient's comorbidities, presenting symptoms, or acuity I expect that the services needed warrant INPATIENT care.: Yes I certify that my determination is in accordance with my understanding of Medicare's requirements for reasonable and necessary INPATIENT services [42 CFR 412.3e].: Yes
[2020-06-12] MEDS: ATORVASTATIN CALCIUM 80 MG TABLET PO SCH (21:59)
[2020-06-13] MEDS: HYDROMORPHONE HCL INJ/PF 2 MG/ML AMPULE IV PRN ×2 (02:12→08:41)
[2020-06-13] MEDS: PREGABALIN 75 MG CAPSULE PO SCH (05:00)
[2020-06-13] MEDS: AZTREONAM 1 GM in DEXTROSE 5%-WATER 50 ML IV SCH (05:01)
--- NOTE | 2020-06-13 08:18 | PDOC DISCHARGE SUMMARY ---
Impression - Admit/DC Date/PCP Admission Date/Primary Care Provider: 06/01/20 17:52 LISA MATA MD Discharge Date: 06/13/20 - Discharge Diagnosis (1) NSTEMI (non-ST elevated myocardial infarction) Is this a current diagnosis for this admission?: Yes (2) Acute diastolic heart failure Is this a current diagnosis for this admission?: Yes (3) Leucocytosis Is this a current diagnosis for this admission?: Yes (4) Cholelithiasis Is this a current diagnosis for this admission?: Yes (5) Chronic kidney disease, stage 3 Is this a current diagnosis for this admission?: Yes (6) Essential (primary) hypertension Is this a current diagnosis for this admission?: Yes (7) Morbid obesity Is this a current diagnosis for this admission?: Yes (8) T2DM (type 2 diabetes mellitus) Is this a current diagnosis for this admission?: Yes - Additional Information Discharge Diet: Cardiac, Diabetic Discharge Activity: Activity As Tolerated, Balance Activity w/Rest, Weigh Daily Referrals: LISA MATA MD [Primary Care Provider] - 06/20/20 10:15 am Prescriptions: RX: Losartan Potassium 50 mg PO DAILY #90 tablet Home Medications: RX: Albuterol Sulfate [Albuterol Sulfate Hfa] 2 puff IH Q4HP PRN 06/19/19 RX: Allopurinol [Zyloprim 100 mg Tablet] 100 mg PO DAILY 06/19/19 RX: Calcitriol [Rocaltrol 0.5 mcg Capsule] 0.5 mcg PO DAILY 06/19/19 RX: Clobetasol Propionate [Temovate 0.05% Cream 15 gm] 1 applic TOP BID 06/19/19 RX: Clotrimazole/Betamethasone Dip [Lotrisone Cream 15 gm] 1 applic TOP BID 06/19/19 RX: Dapagliflozin Propanediol [Farxiga] 5 mg PO DAILY 06/19/19 RX: Loperamide HCl [Imodium 2 mg Capsule] 2 mg PO Q3HP PRN 06/19/19 RX: Metoprolol Succinate [Toprol Xl] 200 mg PO DAILY 06/19/19 RX: Oxycodone HCl [Oxycodone HCl 10 MG Tablet] 10 mg PO Q8HP PRN 06/19/19 RX: Sitagliptin Phosphate [Januvia 50 mg Tablet] 50 mg PO DAILY 06/19/19 RX: Insulin Aspart [Novolog Flexpen] 0 unit SQ .SLIDING SCALE 02/19/20 RX: Magnesium Oxide [Mag-Ox 400 mg Tablet] 400 mg PO DAILY 02/19/20 RX: Pravastatin Sodium 40 mg PO DAILY 02/19/20 RX: Fluconazole [Diflucan] 150 mg PO WE@1000 03/20/20 RX: Nystatin [Mycostatin Topical Powder 15 gm] 1 applic TP BID 03/20/20 RX: Pregabalin 150 mg PO Q8 03/20/20 RX: Insulin Glargine,Hum.rec.anlog [Basaglar Kwikpen U-100] 60 unit SUBCUT Q12 06/02/20 RX: Naloxone HCl [Narcan] 1 spray NASL ASDIR PRN 06/02/20 RX: Losartan Potassium 50 mg PO DAILY #90 tablet 06/12/20 History of Present Illiness History of Present Illness: RANDEE VELÁSQUEZ is a 64 year old female, patient is well-known to me she has a history of chronic diastolic heart failure, coronary artery disease with stent placement, chronic kidney disease stage III, high output ileostomy bag, total colectomy, she came to the emergency room for evaluation of shortness of breath. The history was that she woke up earlier in the morning and she found that the oxygen saturation was in the low 80s, she called the rescue squad, EMS found that the oxygen saturation was in the low 80s she was transferred to the emergency room for evaluation. She was evaluated in the emergency room, the twelve-lead EKG demonstrated sinus rhythm with Q waves in lead III and aVF, the B type natruretic peptide was elevated the serum troponin was elevated as well a chest x-ray that was done suggest CHF. She was also found to have profound leukocytosis the white blood cell count was 20,000 with a left shift. There was no apparent source of infection, the chest x-ray did not demonstrate any infiltrate or any consolidation that would suggest pneumonia, the urinalysis was grossly normal. She also complained of abdominal pain, on examination of the abdomen there was a mild tenderness on palpation of the abdomen but it was soft there was no guarding there was no rebound tenderness. The CT of the chest that was done demonstrated enlarged heart with coronary calcification, no pericardial effusion, there was no bulky adenopathy there was shotty mediastinal lymph nodes there was progressive vascular congestion in the lung, minimal interstitial changes bilaterally no dense consolidation. CAT scan of the abdomen was done, the liver was heterogeneous, the gallbladder is distended with cholelithiasis but no inflammatory change the pancreas is of normal size the spleen is unremarkable the kidneys appear normal, there is no free air no free fluid Hospital Course Hospital Course: She was admitted for the management of non-ST elevated MN, unexplained leukocytosis, acute on chronic diastolic heart failure. She was treated with IV heparin, dual antiplatelet, beta-simeon, she was seen in consultation by cardiology Dr. Bergman. On admission she had elevated white blood cell, the cause was not clear there was no pneumonia the urinalysis was normal there was no evidence of infection she was empirically treated with intravenous aztreonam she responded to the antibiotic with normalization of the white blood cell but the source of the infection is not apparent through hospital stay. Patient with multiple comorbid conditions she is very obese Dr. Bergman , cardiology felt patient could have obstructive sleep apnea, she has had two sleep study outpatient was negative for obstructive sleep apnea the plan is to arrange for patient to have outpatient sleep study Physical Exam Vital Signs: Temp Pulse Resp BP Pulse Ox 98.1 F 76 18 131/69 H 92 06/13/20 04:21 06/13/20 04:21 06/13/20 04:21 06/13/20 04:21 06/13/20 04:21 Pulse Oximeter Nocturnal Start: 06/05/20 11:50 Freq: RTQ4 Status: Complete Protocol: Document 06/06/20 04:45 PMU (Rec: 06/06/20 06:11 PMU [id number]) Nocturnal Pulse Oximetry Equipment Usage Equipment in Use Oxygen Delivery Method (includes room Room Air air) O2 Sat by Pulse Oximetry (92-100) 93 Continuous SpO2 Machine # 7 Intake & Output 06/12/20 06/13/20 06/14/20 06:59 06:59 06:59 Intake Total 240 835 Output Total 725 Balance 240 110 Weight 113.2 kg 114.8 kg General appearance: PRESENT: no acute distress Eye exam: PRESENT: PERRLA Respiratory exam: PRESENT: clear to auscultation stephen Cardiovascular exam: PRESENT: +S1, +S2 GI/Abdominal exam: PRESENT: soft Neurological exam: PRESENT: alert Results Laboratory Results: WBC 8.9 10^3/uL (4.0-10.5) 06/10/20 10:45 RBC 3.63 10^6/uL (3.72-5.28) L 06/10/20 10:45 Hgb 10.1 g/dL (12.0-15.5) L 06/10/20 10:45 Hct 31.2 % (36.0-47.0) L 06/10/20 10:45 MCV 86 fl (80-97) 06/10/20 10:45 MCH 27.7 pg (27.0-33.4) 06/10/20 10:45 MCHC 32.3 g/dL (32.0-36.0) 06/10/20 10:45 RDW 18.2 % (11.5-14.0) H 06/10/20 10:45 Plt Count 149 10^3/uL (150-450) L 06/10/20 10:45 Lymph % (Auto) 15.2 % (13-45) 06/10/20 10:45 Mayes % (Auto) 8.0 % (3-13) 06/10/20 10:45 Eos % (Auto) 4.9 % (0-6) 06/10/20 10:45 Baso % (Auto) 0.5 % (0-2) 06/10/20 10:45 Absolute Neuts (auto) 6.3 10^3/uL (1.7-8.2) 06/10/20 10:45 Absolute Lymphs (auto) 1.3 10^3/uL (0.5-4.7) 06/10/20 10:45 Absolute Monos (auto) 0.7 10^3/uL (0.1-1.4) 06/10/20 10:45 Absolute Eos (auto) 0.4 10^3/uL (0.0-0.6) 06/10/20 10:45 Absolute Basos (auto) 0.0 10^3/uL (0.0-0.2) 06/10/20 10:45 Total Counted 100 06/04/20 05:30 Seg Neutrophils % 71.4 % (42-78) 06/10/20 10:45 Seg Neuts % (Manual) 71 % (42-78) 06/04/20 05:30 Band Neutrophils % 1 % (3-5) L 06/01/20 16:08 Lymphocytes % (Manual) 15 % (13-45) 06/04/20 05:30 Monocytes % (Manual) 11 % (3-13) 06/04/20 05:30 Eosinophils % (Manual) 1 % (0-6) 06/04/20 05:30 Basophils % (Manual) 1 % (0-2) 06/04/20 05:30 Metamyelocytes % 1 % (0-1) 06/04/20 05:30 Abs Neuts (Manual) 7.3 10^3/uL (1.7-8.2) 06/04/20 05:30 Abs Lymphs (Manual) 1.5 10^3/uL (0.5-4.7) 06/04/20 05:30 Abs Monocytes (Manual) 1.1 10^3/uL (0.1-1.4) 06/04/20 05:30 Absolute Eos (Manual) 0.1 10^3/uL (0.0-0.6) 06/04/20 05:30 Abs Basophils (Manual) 0.1 10^3/uL (0.0-0.2) 06/04/20 05:30 Nucleated RBCs 1 /100 WBC (0) 06/01/20 16:08 Giant Platelets PRESENT 06/01/20 16:08 Platelet Comment ADEQUATE 06/04/20 05:30 Polychromasia SLIGHT 06/01/20 16:08 Anisocytosis 2+ 06/04/20 05:30 ESR 54 mm/hr (0-30) H 06/01/20 21:50 PT 14.4 SEC (11.4-15.4) 06/07/20 05:37 INR 1.10 06/07/20 05:37 APTT 118.7 SEC (23.5-35.8) H 06/08/20 04:57 Carbonic Acid 1.45 mmol/L (1.05-1.35) H 06/02/20 06:10 HCO3/H2CO3 Ratio 18:1 06/02/20 06:10 ABG pH 7.35 (7.35-7.45) 06/02/20 06:10 ABG pCO2 48.3 mmHg (35-45) H 06/02/20 06:10 ABG pO2 69.0 mmHg (80-100) L 06/02/20 06:10 ABG HCO3 26.2 mmol/L (20-24) H 06/02/20 06:10 ABG Total CO2 27.7 mmol/L (21-25) H 06/02/20 06:10 ABG O2 Saturation 92.9 % (94-98) L 06/02/20 06:10 ABG Base Excess 0.2 mmol/L 06/02/20 06:10 FiO2 45% 06/02/20 06:10 Sodium 138.4 mmol/L (137-145) 06/10/20 10:45 Potassium 4.7 mmol/L (3.6-5.0) 06/10/20 10:45 Chloride 102 mmol/L (98-107) 06/10/20 10:45 Carbon Dioxide 27 mmol/L (22-30) 06/10/20 10:45 Anion Gap 9 (5-19) 06/10/20 10:45 BUN 31 mg/dL (7-20) H 06/10/20 10:45 Creatinine 1.84 mg/dL (0.52-1.25) H 06/10/20 10:45 Est GFR ( Amer) 34 (>60) L 06/10/20 10:45 Est GFR (MDRD) Non-Af 28 (>60) L 06/10/20 10:45 Glucose 241 mg/dL (75-110) H 06/10/20 10:45 POC Glucose 193 mg/dL (70-110) H 06/12/20 21:24 Hemoglobin A1c % 7.7 % (4.7-6.0) H 06/02/20 04:19 Calcium 10.2 mg/dL (8.4-10.2) 06/10/20 10:45 Phosphorus 4.8 mg/dL (2.5-4.5) H 06/01/20 21:50 Magnesium 1.6 mg/dL (1.6-2.3) 06/01/20 21:50 Ferritin 65.40 ng/mL (11.1-264.0) 06/01/20 16:08 Total Bilirubin 0.6 mg/dL (0.2-1.3) 06/02/20 04:19 Direct Bilirubin 0.5 mg/dL (0.0-0.4) H 06/02/20 04:19 Neonat Total Bilirubin Not Reportable 06/02/20 04:19 Neonat Direct Bilirubin Not Reportable 06/02/20 04:19 Neonat Indirect Bili Not Reportable 06/02/20 04:19 AST 64 U/L (14-36) H 06/02/20 04:19 ALT 30 U/L (<35) 06/02/20 04:19 Alkaline Phosphatase 63 U/L (38-126) 06/02/20 04:19 Ammonia < 8.7 umol/L (9-33) L 06/01/20 21:50 Creatine Kinase 167 U/L (30-135) H 06/02/20 16:00 CK-MB (CK-2) 11.20 ng/mL (<4.55) H 06/02/20 16:00 Troponin I 1.460 ng/mL 06/04/20 05:30 C-Reactive Protein 53.4 mg/L (<10.0) H 06/01/20 16:08 NT-Pro-B Natriuret Pep 9260 pg/mL (<125) H 06/01/20 16:08 Total Protein 7.1 g/dL (6.3-8.2) 06/02/20 04:19 Albumin 3.2 g/dL (3.5-5.0) L 06/02/20 04:19 Triglycerides 137 mg/dL (<150) 06/02/20 04:19 Cholesterol 88.71 mg/dL (0-200) 06/02/20 04:19 LDL Cholesterol Direct < 30 mg/dL (<100) 06/02/20 04:19 VLDL Cholesterol 27.4 mg/dL (10-31) 06/02/20 04:19 HDL Cholesterol 27 mg/dL (>40) L 06/02/20 04:19 Amylase 49 U/L (30-110) 06/01/20 21:50 Lipase 73.1 U/L (23-300) 06/01/20 21:50 TSH 0.17 uIU/mL (0.47-4.68) L 06/01/20 21:50 Free T4 1.21 ng/dL (0.78-2.19) 06/01/20 21:50 Urine Color YELLOW 06/01/20 16:53 Urine Appearance CLEAR 06/01/20 16:53 Urine pH 5.0 (5.0-9.0) 06/01/20 16:53 Ur Specific [place] 1.015 06/01/20 16:53 Urine Protein 100 mg/dL (NEGATIVE) H 06/01/20 16:53 Urine Glucose (UA) >=500 mg/dL (NEGATIVE) H 06/01/20 16:53 Urine Ketones NEGATIVE mg/dL (NEGATIVE) 06/01/20 16:53 Urine Blood NEGATIVE (NEGATIVE) 06/01/20 16:53 Urine Nitrite NEGATIVE (NEGATIVE) 06/01/20 16:53 Urine Bilirubin NEGATIVE (NEGATIVE) 06/01/20 16:53 Urine Urobilinogen NEGATIVE mg/dL (<2.0) 06/01/20 16:53 Ur Leukocyte Esterase NEGATIVE (NEGATIVE) 06/01/20 16:53 Urine WBC (Auto) 1 /HPF 06/01/20 16:53 Urine RBC (Auto) 0 /HPF 06/01/20 16:53 U Hyaline Cast (Auto) 7 /LPF 06/01/20 16:53 Urine Bacteria (Auto) TRACE /HPF 06/01/20 16:53 Urine Mucus (Auto) RARE /LPF 06/01/20 16:53 Urine Ascorbic Acid NEGATIVE (NEGATIVE) 06/01/20 16:53 Urine Opiates Screen UNCONFIRMED POSITIVE 06/01/20 16:53 Urine Methadone Screen NEGATIVE 06/01/20 16:53 Ur Barbiturates Screen NEGATIVE 06/01/20 16:53 Ur Phencyclidine Scrn NEGATIVE 06/01/20 16:53 Ur Amphetamines Screen NEGATIVE 06/01/20 16:53 U Benzodiazepines Scrn NEGATIVE 06/01/20 16:53 Urine Cocaine Screen NEGATIVE 06/01/20 16:53 U Marijuana (THC) Screen NEGATIVE 06/01/20 16:53 Leuk/Lym Specimen Comment (.) 06/01/20 21:50 Leuk/Lym Spec Viability Comment (.) 06/01/20 21:50 Leuk/Lym Gating Strategy Comment (.) 06/01/20 21:50 Leuk/Lym Leuk Assess Comment (.) 06/01/20 21:50 Leuk/Lym Comment Comment (.) 06/01/20 21:50 Leuk/Lym Phenotype Chart Comment (.) 06/01/20 21:50 Leuk/Lym Interpretation Comment (.) 06/01/20 21:50 L/L Sign Pathologist Comment (.) 06/01/20 21:50 COVID-19 Source See comment 06/01/20 18:16 COVID-19 ([facility]) Not Detected (Not Detect) 06/01/20 18:16 Flow Cytometry Comment Comment (.) 06/01/20 21:50 Cytology Clinical Info Not Reportable 06/01/20 21:50 06/01/20 06/01/20 06/02/20 16:08 21:50 04:19 CK-MB (CK-2) 9.98 H 11.40 H Troponin I 2.070 3.620 3.000 NT-Pro-B Natriuret Pep 9260 H 06/02/20 06/04/20 16:00 05:30 CK-MB (CK-2) 11.20 H Troponin I 2.590 1.460 NT-Pro-B Natriuret Pep Impressions: Abdomen/Pelvis CT 06/01/20 00:00 IMPRESSION: Mild stranding within the peritoneal fat, nonspecific but new from prior. Shotty retroperitoneal and mesenteric adenopathy, mildly progressive Chest CT 06/01/20 00:00 IMPRESSION: Chronic parenchymal lung change. Mild progressive congestive change when compared to March. Enlarged heart, stable. Chest X-Ray 06/01/20 13:33 IMPRESSION: NO ACUTE FINDINGS.Similar small left pleural effusion. Shoulder X-Ray 06/06/20 00:00 IMPRESSION: No acute findings. Stroke Is this a Stroke Patient?: No Acute Heart Failure Is this a Heart Failure Patient?: No
[2020-06-13] MEDS: INSULIN LISPRO 100 UNIT/ML 3 ML VIAL SUBCUT SCH (09:03)
[2020-06-13] MEDS: ASPIRIN 81 MG TABLET, CHEWABLE PO SCH (10:26)
[2020-06-13] MEDS: CALCITRIOL 0.25 MCG CAPSULE PO SCH (10:26)
[2020-06-13] MEDS: ENOXAPARIN SODIUM INJ 30 MG/0.3 ML DISP.SYRIN SUBCUT SCH (10:26)
[2020-06-13] MEDS: MAGNESIUM OXIDE 400 MG TABLET PO SCH (10:26)
[2020-06-13] MEDS: CLOPIDOGREL BISULFATE 75 MG TABLET PO SCH (10:27)
[2020-06-13] MEDS: METOPROLOL SUCCINATE 50 MG TAB.SR.24H PO SCH (10:27)
[2020-06-13] MEDS: FUROSEMIDE INJ/PF 20 MG/2 ML SDV IV SCH (10:27)
[2020-06-13] MEDS: SITAGLIPTIN PHOSPHATE 50 MG TABLET PO SCH (10:27)
[2020-06-13] MEDS: ALLOPURINOL 100 MG TABLET PO SCH (10:27)
[2020-06-13] MEDS: CLOTRIMAZOLE/BETAMETHASONE DIP CREAM 15 GM TOP SCH (10:37)
[2020-06-13] MEDS: CLOBETASOL PROPIONATE 0.05% CREAM 15 GM TOP SCH (10:37)
[2020-06-13 11:27] VITALS: BP 127/70
== END 2020-06-13 12:15 | disposition home or self-care (01) | DRG 280 ==
LOC: ER 13:28 → EH 17:52 → ICU 22:14 → 3N 06-02 18:15 → 5 06-04 08:45
PROVIDERS: ADMIT Internal Medicine; ATTEND Internal Medicine
PROC: 3E0234Z Introduction of Serum, Toxoid and Vaccine into Muscle, Percutaneous Approach (ICD-10-PCS; principal; 2020-06-13)
DX: I21.4 Non-ST elevation (NSTEMI) myocardial infarction (principal); J18.9 Pneumonia, unspecified organism; I50.43 Acute on chronic combined systolic (congestive) and diastolic (congestive) heart failure; J96.20 Acute and chronic respiratory failure, unspecified whether with hypoxia or hypercapnia; N17.9 Acute kidney failure, unspecified; I13.0 Hypertensive heart and chronic kidney disease with heart failure and stage 1 through stage 4 chronic kidney disease, or unspecified chronic kidney disease; E66.2 Morbid (severe) obesity with alveolar hypoventilation; N18.30 Chronic kidney disease, stage 3 unspecified; E11.22 Type 2 diabetes mellitus with diabetic chronic kidney disease; E11.42 Type 2 diabetes mellitus with diabetic polyneuropathy; I48.91 Unspecified atrial fibrillation; I25.10 Atherosclerotic heart disease of native coronary artery without angina pectoris; K80.20 Calculus of gallbladder without cholecystitis without obstruction; D72.823 Leukemoid reaction; E78.00 Pure hypercholesterolemia, unspecified; M25.511 Pain in right shoulder; Z20.828 Contact with and (suspected) exposure to other viral communicable diseases; I25.2 Old myocardial infarction; Z93.2 Ileostomy status; Z86.718 Personal history of other venous thrombosis and embolism; Z23 Encounter for immunization
CPT/HCPCS: 36415; 36600; 71045; 71250; 74176; 80048; 80053; 80061; 80307; 81001; 82140; 82150; 82550; 82553; 82728; 82803; 82962; 83036; 83690; 83735; 83880; 84100; 84439; 84443; 84484; 85025; 85610; 85652; 85730; 86140; 87040; 87086; 87635; 88184; 88185; 90471; 90686; 93005; 93010; 94660; 94762; 99291; C9803; G0008; J0696; J1170; J1200; J1642; J1644; J1650; J1815; J1940; J2930; J3490; J7060

== ENCOUNTER 2020-06-19 08:54 | Outpatient (CLI) | payer MEDICARE, MEDICAID ==
[2020-06-19 09:20] VITALS: BP 108/70
== END 2020-06-19 14:15 | disposition home or self-care (01) ==
LOC: II 08:54 → 5TH 08:56 → II 14:15
PROVIDERS: ATTEND Internal Medicine
DX: E86.0 Dehydration (principal)
CPT/HCPCS: 96360; 96361; J1642

== ENCOUNTER 2020-08-28 16:02 | Emergency (ER) | payer MEDICARE, MEDICAID ==
--- NOTE | 2020-08-28 16:23 | ER Document Report ---
ED Medical Screen (RME) - General Stated Complaint: ABNORMAL LABS Time Seen by Provider: 08/28/20 16:09 Primary Care Provider: LISA MATA MD [Primary Care Provider] - Follow up as needed Mode of Arrival: Ambulatory Notes: Patient presents stating that she had outpatient lab work today and was told that her potassium was elevated. Patient states that she has in the past had acute renal failure although denies any history of chronic renal failure. Patient reports some muscle spasms in which her skin feels like it is twitching. Patient denies any other complaints. Patient denies any nausea or chest pain. Patient denies any shortness of breath. Patient does have a history of diabetes and hypertension. I have greeted and performed a rapid initial assessment of this patient. A comprehensive ED assessment and evaluation of the patient, analysis of test results and completion of the medical decision making process will be conducted by additional ED providers. TRAVEL OUTSIDE OF THE [place] IN LAST 30 DAYS: No - Related Data Allergies/Adverse Reactions: ciprofloxacin [From Cipro] Allergy (Severe, Verified 03/19/20 16:20) Hallucinations ceftriaxone Allergy (Intermediate, Verified 06/01/20 20:31) Respiratory distress morphine [Morphine] Allergy (Unknown, Verified 03/19/20 16:20) azithromycin Allergy (Verified 06/01/20 20:31) Past Medical History - Social History Chew tobacco use (# tins/day): No Frequency of alcohol use: None Drug Abuse: None - Past Medical History Cardiac Medical History: Reports: Hx Atrial Fibrillation, Hx Coronary Artery Disease, Hx DVT, Hx Heart Attack - 2002, Hx Hypercholesterolemia, Hx Hypertension Pulmonary Medical History: Reports: Hx Pneumonia - 2006 Neurological Medical History: Endocrine Medical History: Reports: Hx Diabetes Mellitus Type 1, Hx Diabetes Mellitus Type 2 Renal/ Medical History: Reports: Hx Ovarian Cysts, Hx Renal Insufficiency. Denies: Hx Peritoneal Dialysis Malignancy Medical History: Reports: Hx Renal (Kidney) Cancer GI Medical History: Reports: Hx Gastroesophageal Reflux Disease, Hx Hiatal Hernia, Hx Irritable Bowel, Hx Ulcer Musculoskeltal Medical History: Reports Hx Arthritis - Back, Knees Psychiatric Medical History: Denies: Hx Depression Traumatic Medical History: Reports: Hx Fractures Past Surgical History: Reports: Hx Abdominal Surgery - COLOSTOMY. INTESTINAL RU PTURE, Hx Bowel Surgery - COLECTOMY/ileostomy, Hx Cardiac Catheterization, Hx Cardiac Surgery - STENTS, Hx Colostomy, Hx Coronary Stent, Hx Hysterectomy, Hx Ileostomy, Hx Orthopedic Surgery - L knee replacement, right ankle pin, Other - Tracheostomy 10 yrs ago, cryosurgery of renal cell cancer - Immunizations Immunizations up to date: Yes Hx Diphtheria, Pertussis, Tetanus Vaccination: No Physical Exam - Vital signs Vitals: Temp Pulse Resp BP Pulse Ox 97.8 F 69 22 H 125/66 92 08/28/20 16:06 08/28/20 16:06 08/28/20 16:06 08/28/20 16:06 08/28/20 16:06 - General General appearance: Appears well, Alert In distress: None - Respiratory Respiratory status: No respiratory distress Course - Vital Signs Vital signs: Temp Pulse Resp BP Pulse Ox 97.8 F 69 22 H 125/66 92 08/28/20 16:06 08/28/20 16:06 08/28/20 16:06 08/28/20 16:06 08/28/20 16:06 Doctor's Discharge - Discharge Referrals: LISA MATA MD [Primary Care Provider] - Follow up as needed
--- NOTE | 2020-08-28 17:27 | ER Document Report ---
ED General - General Chief Complaint: Abnormal Lab Results Stated Complaint: ABNORMAL LABS Time Seen by Provider: 08/28/20 16:09 Primary Care Provider: LISA MATA MD [Primary Care Provider] - Follow up as needed Mode of Arrival: Ambulatory TRAVEL OUTSIDE OF THE [place] IN LAST 30 DAYS: No - HPI Notes: 64-year-old female presents with abnormal labs. Patient had outpatient labs done today which showed an elevated potassium of 5.9, therefore sent to the ED for evaluation. Patient states that she went to her primary care doctor today because she was not feeling well, states she is just overall feeling bad and having some muscle spasms, she states that she felt as if her electrolytes were going to be off that she has a history of this. She is known to have a high output ileostomy, states she typically does get dehydrated and does need to receive fluids. She states her ostomy output is at baseline. Has otherwise been eating and drinking okay. No fever, shortness of breath, chest pain or abdominal pain. Reports a chronic cough. - Related Data Allergies/Adverse Reactions: ciprofloxacin [From Cipro] Allergy (Severe, Verified 03/19/20 16:20) Hallucinations ceftriaxone Allergy (Intermediate, Verified 06/01/20 20:31) Respiratory distress morphine [Morphine] Allergy (Unknown, Verified 03/19/20 16:20) azithromycin Allergy (Verified 06/01/20 20:31) Past Medical History - General Information source: Patient - Social History Smoking Status: Never Smoker Chew tobacco use (# tins/day): No Frequency of alcohol use: None Drug Abuse: None Family History: Hypertension - Past Medical History Cardiac Medical History: Reports: Hx Atrial Fibrillation, Hx Coronary Artery Disease, Hx DVT, Hx Heart Attack - 2002, Hx Hypercholesterolemia, Hx Hyper tension Pulmonary Medical History: Reports: Hx Pneumonia - 2006 Neurological Medical History: Endocrine Medical History: Reports: Hx Diabetes Mellitus Type 1, Hx Diabetes Mellitus Type 2 Renal/ Medical History: Reports: Hx Ovarian Cysts, Hx Renal Insufficiency. Denies: Hx Peritoneal Dialysis Malignancy Medical History: Reports: Hx Renal (Kidney) Cancer GI Medical History: Reports: Hx Gastroesophageal Reflux Disease, Hx Hiatal Hernia, Hx Irritable Bowel, Hx Ulcer Musculoskeletal Medical History: Reports Hx Arthritis - Back, Knees Psychiatric Medical History: Denies: Hx Depression Traumatic Medical History: Reports: Hx Fractures Past Surgical History: Reports: Hx Abdominal Surgery - COLOSTOMY. INTESTINAL RUPTURE, Hx Bowel Surgery - COLECTOMY/ileostomy, Hx Cardiac Catheterization, Hx Cardiac Surgery - STENTS, Hx Colostomy, Hx Coronary Stent, Hx Hysterectomy, Hx Ileostomy, Hx Orthopedic Surgery - L knee replacement, right ankle pin, Other - Tracheostomy 10 yrs ago, cryosurgery of renal cell cancer - Immunizations Immunizations up to date: Yes Hx Diphtheria, Pertussis, Tetanus Vaccination: No Hx Pneumococcal Vaccination: 09/19/13 Review of Systems - Review of Systems Constitutional: denies: Fever EENT: No symptoms reported Cardiovascular: denies: Chest pain Respiratory: denies: Short of breath Gastrointestinal: denies: Abdominal pain Genitourinary: No symptoms reported Female Genitourinary: No symptoms reported Musculoskeletal: See HPI Skin: No symptoms reported Hematologic/Lymphatic: No symptoms reported Neurological/Psychological: No symptoms reported Physical Exam - Vital signs Vitals: Temp Pulse Resp BP Pulse Ox 97.8 F 69 22 H 125/66 92 08/28/20 16:06 08/28/20 16:06 08/28/20 16:06 08/28/20 16:06 08/28/20 16:06 - General General appearance: Appears well, Alert In distress: None - HEENT Head: Normocephalic, Atraumatic Extraocular movements intact: Yes Pupils: PERRL - Respiratory Breath sounds: Normal - Cardiovascular Rhythm: Regular Heart sounds: Normal auscultation - Abdominal Inspection: Obese Tenderness: Nontender - Extremities General upper extremity: Normal ROM General lower extremity: Normal ROM. No: Edema - Neurological Neuro grossly intact: Yes Cognition: Normal Orientation: AAOx4 Speech: Normal Cranial nerves: Normal Motor strength normal: LUE, RUE, LLE, RLE Sensory: Normal - Psychological Associated symptoms: Normal affect - Skin Skin Temperature: Warm Course - Re-evaluation Re-evalutation: 64-year-old female found to have hyperkalemia 5.9 in the outpatient setting, also has elevated creatinine 3.09. Has history of high output ileostomy and frequent episodes of dehydration. On exam she is well-appearing, hemodynamically stable, lungs CTA B, heart RRR and neurologically intact. Her EKG is without hyperacute T waves. Will start with 1 L of normal saline and recheck labs to see if hyperkalemia is persistent. 08/28/20 19:58 Repeat labs obtained, potassium has down trended, it is now within normal limits at 5. Creatinine has improved some as well, now 2.79 which is similar to values obtained in 08/28/20 20:17 Patient sleeping on reevaluation, awoken easily to voice. Updated her that her potassium is within normal limits without following intervention. Fluids have finished. Will repeat BMP to assure continued downtrend following fluids 08/28/20 20:59 Further downtrend of potassium and creatinine 08/28/20 21:24 Patient has been ambulatory to the bathroom. Updated her on her newest lab results. She complains of generalized pain, for which she takes oxy 10 mg, have ordered this. Patient feels comfortable going home time. No adverse events while in the emergency department. Return precautions given, stable time of discharge. - Vital Signs Vital signs: Temp Pulse Resp BP Pulse Ox 97.8 F 69 24 H 196/117 H 75 L 08/28/20 16:06 08/28/20 16:06 08/28/20 21:18 08/28/20 21:18 08/28/20 21:18 - Laboratory Results Result Diagrams: 08/28/20 20:20 Laboratory Results Interpreted: 08/28/20 08/28/20 18:16 20:20 Sodium 136.4 L Carbon Dioxide 31 H BUN 44 H 43 H Creatinine 2.79 H 2.57 H Est GFR ( Amer) 21 L 23 L Est GFR (MDRD) Non-Af 17 L 19 L Glucose 166 H 153 H Critical Laboratory Results Reviewed: No Critical Results - Radiology Results Critical Radiology Results Reviewed: No Critical Results - EKG Interpretation by Me Additional EKG results interpreted by me: EKG is interpreted by me. Sinus rhythm, rate 78. First degree block, [place] interval 228. Narrow QRS, QTC within normal limits. No ST segment elevation. No peaked T's. Discharge - Discharge Clinical Impression: Elevated serum creatinine, Hyperkalemia Disposition: HOME, SELF-CARE Additional Instructions: As discussed, your potassium was within normal limits on 2 checks. Your creatinine/kidney function decreased following fluids. Be sure to drink plenty of water. Please have close follow-up with your primary care doctor. Return to the emergency department for any concerning worsening symptoms. Referrals: LISA MATA MD [Primary Care Provider] - Follow up as needed
[2020-08-28] MEDS ORDERED: NORMAL SALINE 1000 ML 1,000 ML IV ONE (17:31)
[2020-08-28 19:05] LABS: ANION GAP 5 (5-19); BLOOD UREA NITROGEN 44 mg/dL (7-20); CALCIUM 9.7 mg/dL (8.4-10.2); CARBON DIOXIDE 31 mmol/L (22-30); CHLORIDE 100 mmol/L (98-107); GLUCOSE 166 mg/dL (75-110)
[2020-08-28 20:51] LABS: ANION GAP 7 (5-19); BLOOD UREA NITROGEN 43 mg/dL (7-20); CALCIUM 9.1 mg/dL (8.4-10.2); CARBON DIOXIDE 27 mmol/L (22-30); CHLORIDE 104 mmol/L (98-107); GLUCOSE 153 mg/dL (75-110); POTASSIUM 4.9 mmol/L (3.6-5.0)
[2020-08-28] MEDS ORDERED: OXYCODONE HCL IR 5 MG TABLET PO ONE (21:24)
[2020-08-28 22:56] VITALS: BP 149/94
== END 2020-08-28 22:29 | disposition home or self-care (01) ==
LOC: ER 16:02
DX: E87.5 Hyperkalemia (principal); R79.89 Other specified abnormal findings of blood chemistry; M62.838 Other muscle spasm; R05 Cough; I44.0 Atrioventricular block, first degree; I25.10 Atherosclerotic heart disease of native coronary artery without angina pectoris; I10 Essential (primary) hypertension; I25.2 Old myocardial infarction; E11.9 Type 2 diabetes mellitus without complications; R52 Pain, unspecified; Z79.891 Long term (current) use of opiate analgesic; Z93.2 Ileostomy status; Z85.528 Personal history of other malignant neoplasm of kidney; Z95.5 Presence of coronary angioplasty implant and graft; Z88.1 Allergy status to other antibiotic agents; Z88.6 Allergy status to analgesic agent; Z88.5 Allergy status to narcotic agent
CPT/HCPCS: 36591; 99284; 96360; 96361; 36415; J7030; A9270; J1642

== ENCOUNTER → 2020-08-28 | Outpatient (CLI) | payer MEDICARE, MEDICAID ==
[2020-08-28 13:13] LABS: APPEARANCE,URINE CLOUDY; BILIRUBIN,URINE NEGATIVE (NEGATIVE); COLOR,URINE YELLOW; GLUCOSE, URINE NEGATIVE (NEGATIVE); KETONES,URINE NEGATIVE (NEGATIVE); LEUKOCYTE ESTERASE,URINE LARGE (NEGATIVE); NITRITE,URINE NEGATIVE (NEGATIVE); PROTEIN,URINE 30 mg/dL (NEGATIVE); UROBILINOGEN,URINE NEGATIVE mg/dL (<2.0)
[2020-08-28 13:21] LABS: ABSOLUTE EOSINOPHILS # (AUTO) 0.2 10^3/uL (0.0-0.6); ABSOLUTE LYMPHOCYTES (AUTO) 2.1 10^3/uL (0.5-4.7); ABSOLUTE MONOCYTES (AUTO) 0.8 10^3/uL (0.1-1.4); ABSOLUTE NEUT (AUTO) 8.1 10^3/uL (1.7-8.2); BASOPHILS % (AUTO) 0.4 % (0-2); EOSINOPHILS % (AUTO) 1.9 % (0-6); HEMATOCRIT 33.8 % (36.0-47.0); HEMOGLOBIN 10.5 g/dL (12.0-15.5); LYMPHOCYTES % (AUTO) 18.6 % (13-45); MEAN CORPUSCULAR HEMOGLOBIN 25.9 pg (27.0-33.4); MEAN CORPUSCULAR VOLUME 84 fl (80-97); MONOCYTES % (AUTO) 6.8 % (3-13); PLATELET COUNT 169 10^3/uL (150-450); RED BLOOD COUNT 4.05 10^6/uL (3.72-5.28); RED CELL DISTRIBUTION WIDTH 19.5 % (11.5-14.0); SEGMENTED NEUTROPHILS % (AUTO) 72.3 % (42-78); TOTAL CELLS COUNTED % (AUTO) 100 %; WHITE BLOOD COUNT 11.2 10^3/uL (4.0-10.5)
[2020-08-28 13:42] LABS: ALBUMIN 3.9 g/dL (3.5-5.0); ALKALINE PHOSPHATASE 138 U/L (38-126); ANION GAP 8 (5-19); ASPARTATE AMINO TRANSFERASE 40 U/L (14-36); BILIRUBIN,DIRECT 0.3 mg/dL (0.0-0.4); BILIRUBIN,TOTAL 0.6 mg/dL (0.2-1.3); BLOOD UREA NITROGEN 43 mg/dL (7-20); CALCIUM 10.1 mg/dL (8.4-10.2); CARBON DIOXIDE 29 mmol/L (22-30); CHLORIDE 101 mmol/L (98-107); CHOLESTEROL 123.04 mg/dL (0-200); GLUCOSE 111 mg/dL (75-110); POTASSIUM 5.9 mmol/L (3.6-5.0); TOTAL PROTEIN 8.3 g/dL (6.3-8.2); TRIGLYCERIDES 180 mg/dL (<150); URIC ACID 9.1 mg/dL (2.5-7.5)
[2020-08-28 13:57] LABS: DIRECT LDL 39 mg/dL (<100)
[2020-08-28 14:09] LABS: FREE T4 (FREE THYROXINE) 1.36 ng/dL (0.78-2.19)
[2020-08-28 14:23] LABS: THYROID STIMULATING HORMONE 1.12 uIU/mL (0.47-4.68)
== END ==
LOC: OD 11:57
PROVIDERS: ATTEND Internal Medicine
DX: E11.42 Type 2 diabetes mellitus with diabetic polyneuropathy (principal)
CPT/HCPCS: 36415; 80053; 80061; 81001; 83036; 84439; 84443; 84550; 85025